=== PATIENT | female | born 1980 | race Caucasian/White ===

== ENCOUNTER 2019-03-28 09:50 | Observation (INO) | payer OTHER, SELFPAY ==
[2019-03-28 11:18] LABS: Fetal Fibronectin Negative
[2019-03-28 11:46] LABS: Add Urine Microscopic? YES; Appearance Urine Clear (Clear); Bacteria Urine Trace /hpf; Bilirubin Urine Negative (Negative); Blood Urine Negative (Negative); Color Urine Amber (Yellow); Glucose Urine UA Negative (Negative); Ketones Urine Negative (Negative); Leukocyte Esterase Ur 1+ LEU/UL (Negative); Mucus Urine Moderate /lpf; Nitrate Urine Negative (Negative); Protein Urine 1+ mg/dL (Negative); RBC Urine 0-2 /hpf (0-2); Specific Grav Ur 1.026 (1.001-1.035); Squamous Epithelial Cell Urine Few /hpf (Few)
[2019-03-28 12:06] VITALS: TEMP 36.4
--- NOTE | 2019-03-28 13:45 | OBADM ---
This patient, Jaycee Rouse, admitted to the OB room [facility] for observation. Patient oriented to hospital policies and general routines including ID bracelet, bed and alarms, visiting hours, pain management, procedures, bathroom and other care routines, personal items, smoking policy, room service/diet, call light and visiting hours. Patient is encouraged to report perceived risks to care and to ask questions if she does not understand what she is told or what she should do.
--- NOTE | 2019-04-24 21:14 | P.PNOB_ITS ---
OB - Triage/Final Diagnosis Visit Information Date of evaluation: 03/28/19 Reason for evaluation: threatened labor Evaluation Laboratory results: Laboratory Tests 03/28/19 03/28/19 10:37 11:29 Urine Color Listeh Urine Appearance Clear Urine pH 6.0 Ur Specific [place] 1.026 Urine Protein 1+ H Urine Glucose (UA) Negative Urine Ketones Negative Ur Blood (Man) Negative Urine Nitrate Negative Urine Bilirubin Negative Urine Urobilinogen 2.0 H Leukocyte Esterase Rfl 1+ H Urine RBC 0-2 Urine WBC 4-6 H Ur Squamous Epith Cells Few Urine Bacteria Trace Urine Mucus Moderate H Fibronectin Negative
== END 2019-03-28 13:21 | disposition home or self-care (01) ==
PROVIDERS: Admitting Provider Obstetrics & Gynecology; Visit Provider Obstetrics & Gynecology
DX: O47.03 False labor before 37 completed weeks of gestation, third trimester (principal); Z3A.30 30 weeks gestation of pregnancy
CPT/HCPCS: 81001; 82731; G0378; G0379

== ENCOUNTER 2019-11-24 18:40 | Emergency (ER) | payer OTHER, SELFPAY ==
[2019-11-24 19:07] VITALS: BP 155/91; PULSE 78; RESP 16; TEMP 36.6; O2SAT 99
--- NOTE | 2019-11-24 19:18 | ED.DENTAL ---
HPI - Dental/Oral General Chief complaint: Dental/Oral Stated complaint: mouth pain Source: patient Mode of arrival: ambulatory Limitations: no limitations History of Present Illness HPI Narrative: this is a 39-year-old female with history of dental decay is currently on methadone, and has chronic dental pain and tooth decay, currently over the past couple of weeks has increased a dental pain with surrounding gum inflammation and right lower submandibular gland swelling. Currently there is no shortness of breath no fever chills no nausea vomiting or abdominal pain. The patient did take [id number] medications with minimal relief. MD Complaint: tooth pain Teeth map: 1. Dental decay with surrounding gum inflammation Onset (ago): week(s) Duration: constant Severity: moderate Severity scale (1-10): 6 Relieving factors: nothing Exacerbating factors: chewing, cold and drinking fluids Context: history of dental caries and poor dental care Associated symptoms: gum swelling Treatment prior to arrival: oral analgesic Related Data Home Medications Medication Instructions Recorded Confirmed Methadose 250 mg PO DAILY 03/28/19 11/24/19 Allergies Allergy/AdvReac Type Severity Reaction Status Date / Time Penicillins Allergy Severe Difficulty Verified 03/28/19 13:10 Swallowing codeine AdvReac Swelling Verified 03/28/19 13:11 NSAIDS (Non-Steroidal AdvReac Swelling Verified 03/28/19 13:11 Anti-Inflamma of Lip/Tongue/Throat Review of Systems Review of Systems: All systems reviewed & are unremarkable except as noted in HPI and below PMFSH Past Medical History Medical History Tooth decay Exam Const: General: no acute distress Orientation/consciousness: patient oriented x3 HENMT: Head: normal to inspection Other: right upper molar dental decay with surrounding gum inflammation and swollen tender right submandibular gland Eyes: Pupils: Equal, round and reactive pupils present Neck: Neck: normal visual inspection Chest: Chest palpation & inspection: normal inspection of the chest Resp: Effort & Inspection: normal respiratory effort Cardio: Rhythm: regular rhythm GI: Auscultation: normal bowel sounds : General: Yes no CVA tenderness Urinary Catheter: Urinary Catheter: patent and draining Back/Spine/Pelvis: Back: no CVA tenderness Skin: General skin exam: normal color Rashes: no rashes Neuro: General: patient oriented x3 and moves all extremities Extrem: General: normal to inspection Psych: Appearance: grossly normal Mental Status: mental status grossly normal Course Course Emergency Course: patient presents with chronic dental pain, call in a prescription for an antibiotic and currently on methadone and will call in a naproxen for pain relief along with the antibiotic. Vital Signs Vital signs: Vital Signs Temperature 36.6 C 11/24/19 19:07 Pulse Rate 78 11/24/19 19:07 Respiratory Rate 16 11/24/19 19:07 Blood Pressure 155/91 H 11/24/19 19:07 Pulse Oximetry 99 11/24/19 19:07 Temperature 36.6 C 11/24/19 19:07 Pulse Rate 78 11/24/19 19:07 Respiratory Rate 16 11/24/19 19:07 Blood Pressure 155/91 H 11/24/19 19:07 Pulse Oximetry 99 11/24/19 19:07 Critical Care Time Critical Care Time Critical Care Time: No Discharge Plan Discharge Clinical Impression: Tooth decay, Dental abscess Patient Disposition: Home, Self-Care Condition: Stable Instructions: Antibiotic Form, Dental Abscess (ED), Toothache (ED) Additional Instructions: Follow-up with dentist for further evaluation and treatment. Tylenol [id number] extra-strength as needed for pain along with antibiotics. Prescriptions: New sulfamethoxazole-trimethoprim [Bactrim DS] 800-160 mg tablet 1 tablet PO Q12H Qty: 20 RF: 0 No Action Methadose 250 mg 250 mg PO DAILY RF: 0 Follow-up/Referrals:
== END 2019-11-24 19:32 | disposition home or self-care (01) ==
PROVIDERS: Emergency Provider Emergency Medicine
DX: K02.9 Dental caries, unspecified (principal); K04.7 Periapical abscess without sinus
CPT/HCPCS: 99283

== ENCOUNTER 2019-11-26 22:50 | Observation (INO) | payer OTHER, SELFPAY ==
--- NOTE | ~2019-11-26 | XR_ITS ---
EXAMINATION: XR chest 2V EXAM DATE: 11/26/2019 23:59 INDICATION: Chest pain. TECHNIQUE: Frontal and lateral projections of the chest obtained and reviewed. There is no prior malinda dy for comparison. FINDINGS: The lungs are clear. There are no pleural effusions. The cardiomediastinal silhouette is within normal limits. There is no pneumothorax suspected. The bones and soft tissues are unremarkab le. IMPRESSION: No acute cardiopulmonary findings. Reviewed, dictated and finalized at location A.
[2019-11-26 22:50] VITALS: BP 129/83; PULSE 84; RESP 20; TEMP 36.8; O2SAT 98
--- NOTE | 2019-11-26 22:59 | ECG_ITS ---
Measurements Intervals [place] Rate: 83 P: 56 IN: 108 QRS: 52 QRSD: 93 T: 53 QT: 372 QTc: 439 Interpretive Statements SINUS RHYTHM WITH SHORT IN INTERVAL POSSIBLE LEFT ATRIAL ENLARGEMENT BASELINE WANDER- II, III, AVR, AVL, AVF BORDERLINE ECG Electronically Signed On 11-28-2019 7:02:31 CDT by Sonny Velasco D.O.
[2019-11-26 23:23] LABS: Hematocrit 39.8 % (35.0-49.0); Hemoglobin 12.9 g/dL (12.0-15.0); Mean Corpuscular HGB Conc 32.4 g/dL (32.0-36.0); Mean Corpuscular Hemoglobin 28.8 pg (27.0-31.0); Mean Corpuscular Volume 88.8 fL (78.0-102.0); Platelet Count Result 397 K/mm3 (150-420); Red Blood Count 4.48 M/mm3 (4.20-5.40); Red Cell Distribution Width 14.1 % (11.6-14.4); White Blood Count 8.2 K/mm3 (4.8-10.8)
--- NOTE | 2019-11-26 23:31 | PC.NURSE ---
pt attempted to urinate , was able to ambulate to bathroom. unable to void at this time. assisted back to room.
[2019-11-26] MEDS: SODIUM CHLORIDE 0.9% IV 1,000 ML 999 ML IV CONT (23:33)
[2019-11-26 23:39] LABS: Alanine Aminotransferase 227 U/L (14-59); Albumin Level 3.6 g/dL (3.4-5.0); Alkaline Phosphatase 341 U/L (46-116); Anion Gap 9 mmol/L (8-16); Aspartate Amino Transferase 132 U/L (15-37); Bilirubin,Total 0.4 mg/dL (0.00-1.00); Blood Urea Nitrogen 16 mg/dL (7-18); Calcium 8.9 mg/dL (8.5-10.1); Carbon Dioxide 25 mmol/L (21-32); Chloride 101 mmol/L (98-108); Estimated Glomerular Filt Rate > 60; Glucose 100 mg/dL (70-99); Osmolality Calculated 281 mOsm/kg (285-295); Potassium 4.1 mmol/L (3.5-5.1); Sodium 135 mmol/L (136-145); Total Protein 8.2 g/dL (6.4-8.2)
--- NOTE | 2019-11-26 23:50 | PC.NURSE ---
pt to xray per wheelchair with xray staff
[2019-11-26 23:54] LABS: Add Urine Microscopic? YES; Appearance Urine Sl Cloudy (Clear); Bilirubin Urine Negative (Negative); Blood Urine 2+ (Negative); Color Urine Yellow (Yellow); Glucose Urine UA Negative (Negative); Ketones Urine Negative (Negative); Leukocyte Esterase Ur Negative (Negative); Nitrate Urine Negative (Negative); Protein Urine Negative (Negative); Specific Grav Ur >= 1.030 (1.010-1.020); Urobilinogen Urine 0.2 mg/dL (0.2-1.0)
[2019-11-26 23:59] LABS: Squamous Epithelial Cell Urine Many /hpf (Few); WBC Urine None seen /hpf (0-3)
[2019-11-27] LABS: Amphetamine Screen Urine Positive (Negative); Bacteria Urine Trace /hpf; Barbiturate Screen Urine Negative (Negative); Benzodiazepines Screen Urine Negative (Negative); Cannabinoid Screen Urine Negative (Negative); Cocaine Screen Urine Negative (Negative); Methadone Screen Urine Positive (Negative); Mucus Urine Few /lpf; Opiate Screen Urine Negative (Negative); Phencyclidine Screen Urine Negative (Negative)
[2019-11-27 00:04] VITALS: BP 137/81; PULSE 78; RESP 20; TEMP 36.9; O2SAT 98
--- NOTE | 2019-11-27 00:04 | ED.NAVMDI ---
HPI - Nausea/Vomiting/Diarrhea General Chief complaint: Weakness Stated complaint: AMB Source: patient Mode of arrival: ambulatory Limitations: no limitations History of Present Illness HPI Narrative: This is a 39-year-old female with some history of drug abuse currently on methadone, was seen in the emergency department 2 days ago for a dental abscess and started on antibiotics. The patient has been feeling weakness with some nausea some chest discomfort for the past 2 days with no shortness of breath no fever chills no diarrhea or constipation. Patient was brought in via EMS because of weakness with nausea. MD elicited complaint: nausea Pertinent past history: anorexia Onset (ago): day(s) Description of vomiting: watery Associated nausea: Yes Associated abdominal pain: No Location of pain: chest Pain consistency: now resolved Related Data Home Medications Medication Instructions Recorded Confirmed Methadose 250 mg PO DAILY 03/28/19 11/24/19 Allergies Allergy/AdvReac Type Severity Reaction Status Date / Time Penicillins Allergy Severe Difficulty Verified 03/28/19 13:10 Swallowing codeine AdvReac Swelling Verified 03/28/19 13:11 NSAIDS (Non-Steroidal AdvReac Swelling Verified 03/28/19 13:11 Anti-Inflamma of Lip/Tongue/Throat Review of Systems Review of Systems: All systems reviewed & are unremarkable except as noted in HPI and below PMFSH Past Medical History Medical History (Updated 11/27/19 @ 00:09 by Francisco Javier Jiang MD) Drug abuse Tooth decay Exam Const: General: no acute distress Orientation/consciousness: patient oriented x3 HENMT: Head: normal to inspection Eyes: Cornea: corneas normal Pupils: Equal, round and reactive pupils present Neck: Neck: normal visual inspection, no lymphadenopathy and no meningeal signs Chest: Chest palpation & inspection: normal inspection of the chest Resp: Effort & Inspection: normal respiratory effort Cardio: Rate: regular rate Rhythm: regular rhythm : General: Yes no CVA tenderness Back/Spine/Pelvis: Back: no CVA tenderness Skin: General skin exam: normal color Rashes: no rashes Neuro: General: patient oriented x3 and moves all extremities Extrem: General: normal to inspection and no pedal edema Psych: Appearance: disheveled Course Course Emergency Course: patient continues to feel weak, explain that her urine was normal and chest x-ray was normal, but she dehydrated with elevated liver function test. Vital Signs Vital signs: Vital Signs Temperature 36.8 C 11/26/19 22:50 Pulse Rate 84 11/26/19 22:50 Respiratory Rate 20 11/26/19 22:50 Blood Pressure 129/83 11/26/19 22:50 Pulse Oximetry 98 11/26/19 22:50 Temperature 36.8 C 11/26/19 22:50 Pulse Rate 84 11/26/19 22:50 Respiratory Rate 20 11/26/19 22:50 Blood Pressure 129/83 11/26/19 22:50 Pulse Oximetry 98 11/26/19 22:50 MDM - Nausea/Vomiting/Diarrhea Lab Data Result diagrams: 11/26/19 23:17 11/26/19 23:17 Labs: Lab Results 11/26/19 11/26/19 11/26/19 Range/Units 23:14 23:14 23:17 WBC 8.2 (4.8-10.8) K/mm3 RBC 4.48 (4.20-5.40) M/mm3 Hgb 12.9 (12.0-15.0) g/dL Hct 39.8 (35.0-49.0) % MCV 88.8 (78.0-102.0) fL MCH 28.8 (27.0-31.0) pg MCHC 32.4 (32.0-36.0) g/dL RDW 14.1 (11.6-14.4) % Plt Count 397 (150-420) K/mm3 MPV 9.0 L (9.2-11.8) fl Sodium (136-145) mmol/L Potassium (3.5-5.1) mmol/L Chloride (98-108) mmol/L Carbon Dioxide (21-32) mmol/L Anion Gap (8-16) mmol/L BUN (7-18) mg/dL Creatinine (0.55-1.02) mg/dL Estim Creat Clear Calc Estimated GFR (59 - ) Glucose (70-99) mg/dL Calculated Osmolality (285-295) mOsm/kg Calcium (8.5-10.1) mg/dL Magnesium (1.8-2.4) mg/dL Total Bilirubin (0.00-1.00) mg/dL AST (15-37) U/L ALT (14-59) U/L Alkaline Phosphatase (46-116)
[2019-11-27 00:11] VITALS: BMI 29.0
--- NOTE | 2019-11-27 00:46 | PC.NURSE ---
pt taken to floor per wheelchair with YSABEL Bedoya. pt alert and oriented. able to ambulate to wheelchair. pt departed er with all personal belongings.
[2019-11-27] MEDS: SODIUM CHLORIDE 0.9% IV 1,000 ML 100 ML IV CONT (00:58)
--- NOTE | 2019-11-27 01:03 | PC.NURSE ---
0040 admit to 202 from er per wheelchair. awake alert. c/o dizziness dehydration and n/v. a/o x3 speech clear appropriate. follows directions, moves extremeties x4. IV patent right hand. no c/o offered.
[2019-11-27 03:42] VITALS: BP 140/49; PULSE 84; RESP 16; TEMP 36.6; O2SAT 98
--- NOTE | 2019-11-27 06:07 | PC.NURSE ---
0605 0600vs omitted, vs changed from q4hr to q6hr and were done at 0400.
[2019-11-27 07:09] LABS: Basophils Absolute Auto 0.02 K/mm3 (0.00-0.10); Basophils Percent Auto 0.2 % (0.0-1.0); Eosinophils Absolute Auto 0.06 K/mm3 (0.02-0.50); Eosinophils Percent Auto 0.7 % (1.0-6.0); Hematocrit 37.1 % (35.0-49.0); Hemoglobin 11.8 g/dL (12.0-15.0); Immature Granulocyte Absolute 0.02 K/mm3 (0.00-0.00); Immature Granulocyte Percent A 0.2 % (0.0-0.0); Lymphocytes Absolute Auto 2.07 K/mm3 (1.10-4.50); Lymphocytes Percent Auto 25.4 % (18.0-42.0); Mean Corpuscular HGB Conc 31.8 g/dL (32.0-36.0); Mean Corpuscular Hemoglobin 28.5 pg (27.0-31.0); Mean Corpuscular Volume 89.6 fL (78.0-102.0); Mean Platelet Volume 9.3 fl (9.2-11.8); Monocytes Absolute Auto 0.56 K/mm3 (0.10-0.90); Monocytes Percent Auto 6.9 % (2.0-11.0); Neutrophils Absolute Auto 5.4 K/mm3 (1.7-7.2); Neutrophils Percent Auto 66.6 % (50.0-70.0); Platelet Count Result 357 K/mm3 (150-420); Red Blood Count 4.14 M/mm3 (4.20-5.40); Red Cell Distribution Width 14.1 % (11.6-14.4); White Blood Count 8.2 K/mm3 (4.8-10.8)
[2019-11-27 07:24] LABS: Alanine Aminotransferase 181 U/L (14-59); Albumin Level 3.1 g/dL (3.4-5.0); Alkaline Phosphatase 299 U/L (46-116); Anion Gap 7 mmol/L (8-16); Aspartate Amino Transferase 87 U/L (15-37); Bilirubin,Total 0.3 mg/dL (0.00-1.00); Blood Urea Nitrogen 14 mg/dL (7-18); Calcium 8.1 mg/dL (8.5-10.1); Carbon Dioxide 25 mmol/L (21-32); Chloride 103 mmol/L (98-108); Estimated CRCL calculation 73 ml/min; Estimated Glomerular Filt Rate > 60; Glucose 89 mg/dL (70-99); Osmolality Calculated 279 mOsm/kg (285-295); Sodium 135 mmol/L (136-145); Total Protein 7.1 g/dL (6.4-8.2)
[2019-11-27 08:00] VITALS: BP 109/72; PULSE 64; RESP 18; TEMP 36.6; O2SAT 100
--- NOTE | 2019-11-27 08:40 | PM.SD ---
Same Day Admit/Disch: HPI History of Present Illness Chief complaint: AMB Narrative: Jaycee Rouse is a 39 year old female who came to the hospital due to weakness nausea and vomiting. Patient was seen a couple days ago in the ER was given Bactrim for tooth. Patient states she then went home she would take 4 pills of ibuprofen approximately every 2 hours throughout the day which likely led to her nausea and vomiting. Patient states that her mother had also given her Wellbutrin to attempt to help with the tooth pain. Patient states that she is on public aid and is unable to get an appointment with a dentist any sooner than 3+ months out. Patient denies any chest pain at this time. [facility] Past Medical History Medical History Drug abuse Tooth decay Social History Social History Years smoked: 20 Smoking status: Current every day smoker Tobacco type: cigarettes Second hand tobacco smoke exposure: Yes Alcohol intake: former Substance use: former Substance use type: painkillers Gender identity (if verbalized by the patient): Female Spiritual care concerns: No Same Day Admit/Disch: Med Pre-admit Medications Home Medications Medication Instructions Recorded Confirmed Type Methadose 250 mg PO DAILY 03/28/19 11/26/19 History sulfamethoxazole-trimethoprim 1 tablet PO Q12H #20 tablet 11/24/19 11/26/19 Rx [Bactrim DS] lidocaine HCl [Lidocaine Viscous] 15 ml MUCOUS MEM Q2H PRN #30 ml 11/27/19 Rx Exam Narrative: Exam Narrative: as noted above patient to convert no pill from her mother for relief of dental pain. patient did not know what the pill was turns out to be Wellbutrin. discussed with patient the reasons why not to accept unknown pills from individuals who cannot prescribe. Const: General: cooperative, comfortable and no acute distress Orientation/consciousness: oriented to person, oriented to place and oriented to time Eyes: Other: Had a little sensitivity to light this morning, took her a few minutes to adjust the lytes being turned on Resp: Effort & Inspection: normal respiratory effort Auscultation: clear to auscultation bilaterally Cardio: Rate: regular rate Rhythm: regular rhythm Heart sounds: S1 normal heart sound present and S2 normal heart sound present Psych: Speech and movement: Normal speech and movement present Affect: normal affect Attitude: cooperative DS: Data Data Completed and Pending Labs on day of discharge: Labs from last 24 hours 11/27/19 11/27/19 11/26/19 07:12 07:12 23:17 WBC 8.2 RBC 4.14 L Hgb 11.8 L Hct 37.1 MCV 89.6 MCH 28.5 MCHC 31.8 L RDW 14.1 Plt Count 357 MPV 9.3 Immature Gran % (Auto) 0.2 H Neut % (Auto) 66.6 Lymph % (Auto) 25.4 [place] % (Auto) 6.9 Eos % (Auto) 0.7 L Baso % (Auto) 0.2 Lymph # (Auto) 2.07 [place] # (Auto) 0.56 Eos # (Auto) 0.06 Baso # (Auto) 0.02 Abs Immat Gran (auto) 0.02 H Absolute Neuts (auto) 5.4 Absolute Nucleated RBC 0.00 Nucleated RBC % 0.0 Sodium 135 L 135 L Potassium 4.0 4.1 Chloride 103 101 Carbon Dioxide 25 25 Anion Gap 7 L 9 BUN 14 16 Creatinine 0.86 0.96 Estim Creat Clear Calc 73 Not Reportable Estimated GFR > 60 > 60 Glucose 89 100 H Calculated Osmolality 279 L 281 L Calcium 8.1 L 8.9 Magnesium 2.0 Total Bilirubin 0.3 0.4 AST 87 H 132 H ALT 181 H 227 H Alkaline Phosphatase 299 H 341 H Total Protein 7.1 8.2 Albumin 3.1 L 3.6 Urine Color Urine Appearance Urine pH Ur Specific [place] Urine Protein Urine Glucose (UA) Urine Ketones Ur Blood (Man) Urine Nitrate Urine Bilirubin Urine Urobilinogen Ur Leukocyte Esterase Urine RBC Urine WBC Ur Squamous Epith Cells Urine Bacteria Urine Mucus Urine Opiates Screen Urin
[2019-11-27] MEDS: LIDOCAINE HCL 2% VISC SOLN 15 ML UDC PO (11:32)
== END 2019-11-27 13:00 | disposition home or self-care (01) ==
LOC: CHSED 11-27 00:09 → CHS2ND 11-27 00:11
PROVIDERS: Nurse Practitioner Family; Admitting Provider Emergency Medicine; Emergency Provider Emergency Medicine; Visit Provider Emergency Medicine
DX: E86.0 Dehydration (principal); R94.5 Abnormal results of liver function studies; K02.9 Dental caries, unspecified; F17.210 Nicotine dependence, cigarettes, uncomplicated; F19.10 Other psychoactive substance abuse, uncomplicated
CPT/HCPCS: 36415; 71046; 80053; 80307; 81001; 83735; 85025; 85027; 87040; 93005; 96360; 96361; 99284; 99285; A9270; G0378; G0379; J7030

== ENCOUNTER 2020-09-07 23:13 | Emergency (ER) | payer OTHER, SELFPAY ==
[2020-09-07 23:21] VITALS: BP 132/70; PULSE 90; RESP 16; TEMP 36.1; O2SAT 95
[2020-09-07] MEDS: KETOROLAC (*BKC) 60 MG/2 ML VIAL IM (23:30)
[2020-09-07] MEDS: CLINDAMYCIN HCL 150 MG CAP 450 MG BY MOUTH (23:30)
--- NOTE | 2020-09-07 23:34 | ED.DENTAL ---
HPI - Dental/Oral General Chief complaint: Dental/Oral Stated complaint: PAIN Time Seen by Provider: 09/07/20 23:25 Source: patient Mode of arrival: ambulatory Limitations: no limitations History of Present Illness HPI Narrative: Patient come in with dental pain, moderately severe, ongoing for the past several days from teeth broke off and abscessed in right upper jaw. She has had pain from these before, and it has been ongoing now for over the past few days, becoming more severe with time, causing her face to swell. She has had no fever, or chills. Ibuprofen at home has not helped the pain. Other measures at home wuch as rinses have not helped the pain. Teeth # 3 and 4 appear to be abscessed. Complaint: tooth pain Onset (ago): day(s) Duration: constant Severity: moderate Relieving factors: nothing Exacerbating factors: cold, heat and drinking fluids Context: history of dental caries Associated symptoms: gum swelling and other (face swelling on that side) Treatment prior to arrival: oral analgesic Related Data Allergies Allergy/AdvReac Type Severity Reaction Status Date / Time Penicillins Allergy Severe Difficulty Verified 03/28/19 13:10 Swallowing codeine AdvReac Swelling Verified 03/28/19 13:11 NSAIDS (Non-Steroidal AdvReac Swelling Verified 03/28/19 13:11 Anti-Inflamma of Lip/Tongue/Throat Review of Systems Constitutional: Constitutional: Reports no additional constitutional complaints Eyes: Eyes: Reports no additional eye complaints ENT: Reports system reviewed and no additional complaints, except as documented Cardiovascular: Cardiovascular: Reports no additional cardiovascular complaints Respiratory: Respiratory: Reports no additional respiratory complaints Gastrointestinal: Gastrointestinal: Reports no additional gastrointestinal complaints Genitourinary: Genitourinary: Reports no additional female genitourinary complaints Musculoskeletal: Musculoskeletal: Reports no additional musculoskeletal complaints Integumentary/Breasts: Skin/Breast: Reports system reviewed and no additional complaints, except as docu Neurologic: Reports system reviewed and no additional complaints, except as documented Psychiatric: Psychiatric: Reports no additional psychiatric complaints Endocrine: Endocrine: Reports no additional endocrine complaints Hematologic/Lymphatic: Hematologic/Lymphatic: Reports no additional hematologic/lymphatic complaints Allergic/Immunologic: Allergic/Immunologic: Reports no additional allergic/immunologic complaints PMFSH Past Medical History Medical History Drug abuse Tooth decay Surgical History Surgical History (Updated 09/07/20 @ 23:44 by John Horton MD) No significant past surgical history Family History Family History Father No problems noted. Father Lung cancer Mother Heart disease Social History Social History Years smoked: 20 Smoking status: Current every day smoker Tobacco type: cigarettes Second hand tobacco smoke exposure: Yes Alcohol intake: former Substance use: former Substance use type: painkillers Gender identity (if verbalized by the patient): Female Spiritual care concerns: No Exam Const: General: no acute distress and alert Orientation/consciousness: patient oriented x3 HENMT: Ears: external ears normal and TM's normal bilaterally General nose exam: Normal external nose present Mouth: Yes Normal oral and palatal mucosa present Throat: posterior oropharynx normal Other: Face swollen on right side, at area of cheek corresponding to upper teeth on right jaw. Teeth number 3 and 4 are broken off at the gum line and appear to be abscessed. She has facial swelling that is around this area and is moderately severe. Eyes: Conjunctivae: conjunctivae norm
[2020-09-07 23:39] VITALS: BP 140/70; PULSE 82; RESP 16; TEMP 36.6; O2SAT 98
== END 2020-09-07 23:42 | disposition home or self-care (01) ==
PROVIDERS: Emergency Provider Emergency Medicine
DX: K04.7 Periapical abscess without sinus (principal); K08.89 Other specified disorders of teeth and supporting structures
CPT/HCPCS: 73140; 96372; 99283; A9270; J1885

== ENCOUNTER 2020-10-09 13:25 | Emergency (ER) | payer OTHER, SELFPAY ==
[2020-10-09 13:55] VITALS: BP 104/70; PULSE 84; RESP 20; TEMP 36.6; O2SAT 96
[2020-10-09 13:58] LABS: Appearance Urine Sl Cloudy (Clear); Bilirubin Urine Negative (Negative); Glucose Urine UA 1+ (Negative); Ketones Urine Trace (Negative); Leukocyte Esterase Ur 2+ (Negative); Nitrate Urine Positive (Negative); Protein Urine 3+ (Negative); Specific Grav Ur <= 1.005 (1.010-1.020); Urobilinogen Urine >=8.0 mg/dL (0.2-1.0)
[2020-10-09 14:03] LABS: Add Urine Microscopic? YES; Blood Urine Trace-Intact (Negative); Color Urine Dark Orange (Yellow); Squamous Epithelial Cell Urine Many /hpf (Few); WBC Urine >75 /hpf (0-3)
[2020-10-09 14:04] LABS: Bacteria Urine 4+ /hpf
[2020-10-09] MEDS: ACETAMINOPHEN 325 MG TABLET 650 MG PO (14:09)
[2020-10-09] MEDS: cefTRIAXone 1 GM VIAL IM (14:35)
[2020-10-09] MEDS: LIDOCAINE HCL 1% LOCAL INJ 20 ML VIAL (14:35)
--- NOTE | 2020-10-09 15:18 | ED.ABDPAIN ---
HPI - Abdominal Pain General Chief Complaint: Urogenital-Female Stated Complaint: Possible UTI Time Seen by Provider: 10/09/20 13:27 Source: patient and RN notes reviewed Mode of arrival: ambulatory Limitations: no limitations History of Present Illness MD elicited complaint: abdominal pain (mild suprapubic abdominal pain) Pertinent past history: past UTI Onset (ago): day(s) (2) Pain Consistency: constant and colicky Location: suprapubic Severity: mild Radiation: none Exacerbating factors: nothing Relieving factors: nothing Associated symptoms: denies other symptoms Related Data Home Medications Medication Instructions Recorded Confirmed methadone 40 mg PO DAILY 10/09/20 10/09/20 Allergies Allergy/AdvReac Type Severity Reaction Status Date / Time Penicillins Allergy Severe Difficulty Verified 03/28/19 13:10 Swallowing codeine AdvReac Swelling Verified 03/28/19 13:11 NSAIDS (Non-Steroidal AdvReac Swelling Verified 03/28/19 13:11 Anti-Inflamma of Lip/Tongue/Throat Review of Systems Review of Systems: All systems reviewed & are unremarkable except as noted in HPI and below Constitutional: Constitutional: Reports as per HPI and Reports no additional constitutional complaints Eyes: Eyes: Reports as per HPI and Reports no additional eye complaints ENT: Reports system reviewed and no additional complaints, except as documented and Reports as per HPI Cardiovascular: Cardiovascular: Reports as per HPI and Reports no additional cardiovascular complaints Respiratory: Respiratory: Reports as per HPI and Reports no additional respiratory complaints Gastrointestinal: Gastrointestinal: Reports as per HPI and Reports no additional gastrointestinal complaints Genitourinary: Genitourinary: Reports no additional female genitourinary complaints and Reports as per HPI Musculoskeletal: Musculoskeletal: Reports no additional musculoskeletal complaints and Reports as per HPI Integumentary/Breasts: Skin/Breast: Reports system reviewed and no additional complaints, except as docu and Reports as per HPI Neurologic: Reports system reviewed and no additional complaints, except as documented and Reports as per HPI Psychiatric: Psychiatric: Reports no additional psychiatric complaints and Reports as per HPI Endocrine: Endocrine: Reports no additional endocrine complaints and Reports as per HPI Hematologic/Lymphatic: Hematologic/Lymphatic: Reports no additional hematologic/lymphatic complaints and Reports as per HPI Allergic/Immunologic: Allergic/Immunologic: Reports no additional allergic/immunologic complaints and Reports as per HPI PMFSH Past Medical History Medical History Drug abuse Tooth decay Surgical History Surgical History No significant past surgical history Family History Family History Father No problems noted. Father Lung cancer Mother Heart disease Social History Social History Years smoked: 20 Smoking status: Current every day smoker Tobacco type: cigarettes Second hand tobacco smoke exposure: Yes Alcohol intake: former Substance use: former Substance use type: painkillers Gender identity (if verbalized by the patient): Female Spiritual care concerns: No Exam Const: General: no acute distress and alert Nutritional Appearance: well nourished Orientation/consciousness: patient oriented x3 Limitations: no limitations HENMT: Head: normal to inspection Ears: external ears normal and TM's normal bilaterally General nose exam: Normal external nose present and Normal nares present Mouth: Yes lip normal and Yes moist mucous membranes Eyes: Conjunctivae: conjunctivae normal Pupils: Equal, round and reactive pupils present EOM: EOMs intact tori
== END 2020-10-09 15:36 | disposition home or self-care (01) ==
PROVIDERS: Emergency Provider Emergency Medicine
DX: N30.00 Acute cystitis without hematuria (principal)
CPT/HCPCS: 81001; 96372; 99283; A9270; J0696

== ENCOUNTER 2021-01-08 12:08 | Emergency (ER) | payer OTHER, SELFPAY ==
--- NOTE | ~2021-01-08 | XR_ITS ---
EXAMINATION: XR chest 1V portable DATE: 01/08/2021 12:57 INDICATION: Chest pain. TECHNIQUE: A single frontal view of the chest was obtained. COMPARISON: Chest 2 views 11/26/2019 FINDINGS: The chest demonstrates clear lungs without pneumonia, pleural effusion, or pneumothorax. Th e heart size is normal. IMPRESSION: 1. No acute cardiopulmonary disease. Reviewed, dictated and finalized at location A. FICATION SPECIALIST
[2021-01-08 12:21] VITALS: BP 138/98; PULSE 84; RESP 18; TEMP 36.9; O2SAT 98
--- NOTE | 2021-01-08 12:26 | ED.DENTAL ---
HPI - Dental/Oral General Chief complaint: Dental/Oral Stated complaint: swollen face, chest pain, right arm pain Time Seen by Provider: 01/08/21 12:26 Source: patient Mode of arrival: ambulatory Limitations: no limitations History of Present Illness HPI Narrative: 40-year-old female, smoker with a positive family history of coronary artery disease presents with -- right upper jaw pain /dental pain with just swelling for the past 2 days -- left upper chest pain which radiates to the right shoulder and arm. It started last night. No shortness of breath or lightheadedness. MD Complaint: tooth pain ( Tenderness to 1, 2, 3) Location: Tooth # Duration: constant Relieving factors: nothing Exacerbating factors: nothing Context: history of dental caries Treatment prior to arrival: none Related Data Home Medications Medication Instructions Recorded Confirmed methadone 40 mg PO DAILY 10/09/20 10/09/20 Allergies Allergy/AdvReac Type Severity Reaction Status Date / Time Penicillins Allergy Severe Difficulty Verified 03/28/19 13:10 Swallowing codeine AdvReac Swelling Verified 03/28/19 13:11 NSAIDS (Non-Steroidal AdvReac Swelling Verified 03/28/19 13:11 Anti-Inflamma of Lip/Tongue/Throat Review of Systems Review of Systems: All systems reviewed & are unremarkable except as noted in HPI and below Constitutional: Constitutional: Reports as per HPI Eyes: Eyes: Reports no additional eye complaints ENT: Reports system reviewed and no additional complaints, except as documented Comments: right upper dental pain Cardiovascular: Cardiovascular: Reports chest pain and Reports chest pain at rest Respiratory: Respiratory: Reports no additional respiratory complaints Gastrointestinal: Gastrointestinal: Reports no additional gastrointestinal complaints Genitourinary: Genitourinary: Reports no additional female genitourinary complaints Musculoskeletal: Musculoskeletal: Reports no additional musculoskeletal complaints Integumentary/Breasts: Skin/Breast: Reports system reviewed and no additional complaints, except as docu Neurologic: Reports system reviewed and no additional complaints, except as documented Psychiatric: Psychiatric: Reports no additional psychiatric complaints Endocrine: Endocrine: Reports no additional endocrine complaints Hematologic/Lymphatic: Hematologic/Lymphatic: Reports no additional hematologic/lymphatic complaints Allergic/Immunologic: Allergic/Immunologic: Reports no additional allergic/immunologic complaints PMFSH Past Medical History Medical History Drug abuse Tooth decay Surgical History Surgical History No significant past surgical history Family History Family History Father No problems noted. Father Lung cancer Mother Heart disease Social History Social History Years smoked: 20 Smoking status: Current every day smoker Tobacco type: cigarettes Second hand tobacco smoke exposure: Yes Alcohol intake: former Substance use: former Substance use type: painkillers Gender identity (if verbalized by the patient): Female Spiritual care concerns: No Exam Const: General: cooperative, healthy appearing, comfortable and no acute distress HENMT: Head: normal to inspection, No palpable skull fracture present and atraumatic Ears: hearing grossly normal bilaterally General nose exam: Normal external nose present and Normal nares present Face and sinus: normal facial exam Mouth: Yes Normal oral and palatal mucosa present, Yes lip normal and Yes tongue normal Throat: posterior oropharynx normal Eyes: General: appearance normal, both eyes and all related structures Visual Gutiérrez: normal visual gutiérrez by confrontation EOM: EO
--- NOTE | 2021-01-08 12:31 | ECG_ITS ---
Measurements Intervals [facility] Rate: 76 P: 67 IN: 132 QRS: 71 QRSD: 89 T: 67 QT: 368 QTc: 414 Interpretive Statements SINUS RHYTHM MINIMAL Q WAVES- INF/LAT LEADS BASELINE ARTIFACT- V3 BORDERLINE ECG Electronically Signed On 01-08-2021 13:07:32 [employer] ROOM ATTENDANT by Sonny Velasco D.O.
[2021-01-08 12:53] LABS: Basophils Absolute Auto 0.03 K/mm3 (0.00-0.10); Basophils Percent Auto 0.4 % (0.0-1.0); Eosinophils Absolute Auto 0.11 K/mm3 (0.02-0.50); Eosinophils Percent Auto 1.5 % (1.0-6.0); Hematocrit 35.3 % (35.0-49.0); Hemoglobin 11.6 g/dL (12.0-15.0); Immature Granulocyte Absolute 0.02 K/mm3 (0.00-0.00); Immature Granulocyte Percent A 0.3 % (0.0-0.0); Lymphocytes Absolute Auto 2.24 K/mm3 (1.10-4.50); Lymphocytes Percent Auto 30.1 % (18.0-42.0); Mean Corpuscular HGB Conc 32.9 g/dL (32.0-36.0); Mean Corpuscular Hemoglobin 28.5 pg (27.0-31.0); Mean Corpuscular Volume 86.7 fL (78.0-102.0); Mean Platelet Volume 9.1 fl (9.2-11.8); Monocytes Absolute Auto 0.55 K/mm3 (0.10-0.90); Monocytes Percent Auto 7.4 % (2.0-11.0); Neutrophils Absolute Auto 4.5 K/mm3 (1.7-7.2); Neutrophils Percent Auto 60.3 % (50.0-70.0); Platelet Count Result 369 K/mm3 (150-420); Red Blood Count 4.07 M/mm3 (4.20-5.40); White Blood Count 7.4 K/mm3 (4.8-10.8)
[2021-01-08 13:05] LABS: D Dimer 0.32 mg/L (0.19-0.50)
[2021-01-08 13:11] LABS: Alanine Aminotransferase 58 U/L (14-59); Albumin Level 3.2 g/dL (3.4-5.0); Alkaline Phosphatase 204 U/L (46-116); Anion Gap 5 mmol/L (8-16); Aspartate Amino Transferase 24 U/L (15-37); Bilirubin,Total 0.2 mg/dL (0.00-1.00); Blood Urea Nitrogen 11 mg/dL (7-18); Calcium 8.6 mg/dL (8.5-10.1); Carbon Dioxide 30 mmol/L (21-32); Chloride 102 mmol/L (98-108); Estimated CRCL calculation 81 ml/min; Estimated Glomerular Filt Rate > 60; Glucose 92 mg/dL (70-99); Osmolality Calculated 283 mOsm/kg (285-295); Sodium 137 mmol/L (136-145); Total Protein 7.5 g/dL (6.4-8.2); Troponin I 6.7 ng/L (0.00-60.4)
[2021-01-08 13:57] VITALS: BP 149/96; PULSE 79; RESP 20; TEMP 36.8; O2SAT 100
== END 2021-01-08 13:59 | disposition home or self-care (01) ==
PROVIDERS: Emergency Provider Internal Medicine Critical Care Medicine
DX: K08.89 Other specified disorders of teeth and supporting structures (principal); K02.9 Dental caries, unspecified; R07.9 Chest pain, unspecified
CPT/HCPCS: 36415; 71045; 80053; 84484; 85025; 85380; 93005; 99283; 99284

== ENCOUNTER 2022-09-12 15:54 | Emergency (ER) | payer OTHER, SELFPAY ==
[2022-09-12 15:55] VITALS: BP 116/77; PULSE 77; RESP 20; TEMP 37.1; O2SAT 98
--- NOTE | 2022-09-12 15:59 | ED.SYNCOPE ---
HPI - Syncope General Chief Complaint: Unspecified Stated Complaint: lethargic Time Seen by Provider: 09/12/22 15:57 Source: patient and RN notes reviewed Mode of arrival: ambulatory Limitations: no limitations History of Present Illness HPI narrative: Patient states that she stopped taking her methadone 10 days ago. She began being ill with nausea difficulty eating lethargy following that. Today she took someone else's medicines own she thinks it might have been temazepam. She is not really sure what it was. She has feeling weak and lethargic she said she had a syncopal episode at home. EMS call was that she was lethargic and could get up. However she walked from the couch to the gurney and got up on the gurney without difficulty. She also walks to the bathroom from her room here in the ED. complaint: collapsed Onset (ago): hour(s) (3) Prodromal symptoms: none Witnessed: No Context: at rest Injuries sustained associated with event: none Current symptoms: weakness Treatments prior to arrival: none Related Data Allergies Allergy/AdvReac Type Severity Reaction Status Date / Time Penicillins Allergy Severe Difficulty Verified 03/28/19 13:10 Swallowing codeine AdvReac Swelling Verified 03/28/19 13:11 NSAIDS (Non-Steroidal AdvReac Swelling Verified 03/28/19 13:11 Anti-Inflamma of Lip/Tongue/Throat Review of Systems Review of Systems: All systems reviewed & are unremarkable except as noted in HPI and below PMFSH Past Medical History Medical History Drug abuse Tooth decay Surgical History Surgical History No significant past surgical history Family History Family History Father No problems noted. Father Lung cancer Mother Heart disease Social History Social History Years smoked: 20 Smoking status: Current every day smoker Tobacco type: cigarettes Second hand tobacco smoke exposure: Yes Alcohol intake: former Substance use: former Substance use type: painkillers Gender identity (if verbalized by the patient): Female Spiritual care concerns: No Exam Const: General: healthy appearing, no acute distress and alert Nutritional Appearance: well nourished Orientation/consciousness: patient oriented x3 Limitations: no limitations Other: Female tech in room during examination. HENMT: Head: normal to inspection Ears: external ears normal Face/Nose/Sinus: Normal external nose present Face and sinus: normal facial exam Mouth: Yes moist mucous membranes Eyes: Conjunctivae: conjunctivae normal Pupils: Equal, round and reactive pupils present EOM: EOMs intact bilaterally Neck: Neck: normal visual inspection Resp: Effort & Inspection: normal respiratory effort Auscultation: clear to auscultation bilaterally Cardio: Rate: regular rate Rhythm: regular rhythm GI: GI Palp: Yes Soft to palpation and No Tenderness to palpation present (GI) Auscultation: normal bowel sounds Back/Spine/Pelvis: Cervical Spine: cervical ROM normal Thoracic/Lumbar Spine: thoraco-lumbar ROM normal Skin: General skin exam: normal color Rashes: no rashes Neuro: General: patient oriented x3, moves all extremities, no focal motor deficits and CN's II-XI intact bilaterally Speech: normal speech Gait exam (Neuro): Normal gait present Extrem: General: normal to inspection and no clubbing, cyanosis or edema Psych: Mental Status: mental status grossly normal Affect: normal affect Attitude: cooperative MDM - Syncope Differential Diagnosis Differential diagnosis: Likely dehydration and other ( cardiac arrhythmia, electrolyte abnormality, anemia, UTI, illicit drug use, methadone withdrawal) Lab Data Attestation: I reviewed the patient's lab results. Discharge Plan Disch
--- NOTE | 2022-09-12 16:02 | ECG_ITS ---
Measurements Intervals [place] Rate: 99 P: 59 NC: 100 QRS: 63 QRSD: 94 T: 53 QT: 348 QTc: 447 Interpretive Statements SINUS RHYTHM WITH SHORT NC INTERVAL MINIMAL Q WAVES- ANTEROLAT/INF LEADS BASELINE ARTIFACT- I, II, III, AVR, AVL, AVF, V1-V6 BORDERLINE ECG COMPARED TO ECG 01/08/2021 12:37:11 NO SIGNIFICANT CHANGES Electronically Signed On 09-12-2022 16:25:21 CDT by Sonny Velasco D.O.
[2022-09-12 16:16] LABS: Basophils Absolute Auto 0.05 K/mm3 (0.00-0.10); Basophils Percent Auto 0.5 % (0.0-1.0); Eosinophils Absolute Auto 0.04 K/mm3 (0.02-0.50); Eosinophils Percent Auto 0.4 % (1.0-6.0); Hemoglobin 12.9 g/dL (12.0-15.0); Immature Granulocyte Absolute 0.02 K/mm3 (0.00-0.00); Immature Granulocyte Percent A 0.2 % (0.0-0.0); Lymphocytes Absolute Auto 2.21 K/mm3 (1.10-4.50); Lymphocytes Percent Auto 20.7 % (18.0-42.0); Mean Corpuscular HGB Conc 33.1 g/dL (32.0-36.0); Mean Corpuscular Hemoglobin 30.5 pg (27.0-31.0); Mean Corpuscular Volume 92.2 fL (78.0-102.0); Mean Platelet Volume 10.3 fl (9.2-11.8); Monocytes Absolute Auto 0.57 K/mm3 (0.10-0.90); Monocytes Percent Auto 5.3 % (2.0-11.0); Neutrophils Absolute Auto 7.8 K/mm3 (1.7-7.2); Neutrophils Percent Auto 72.9 % (50.0-70.0); Platelet Count Result 399 K/mm3 (150-420); Red Blood Count 4.23 M/mm3 (4.20-5.40); Red Cell Distribution Width 12.4 % (11.6-14.4); White Blood Count 10.7 K/mm3 (4.8-10.8)
[2022-09-12 16:17] LABS: Appearance Urine Clear (Clear); Bilirubin Urine 1+ (Negative); Blood Urine 2+ (Negative); Color Urine Yellow (Yellow); Glucose Urine UA Negative (Negative); Ketones Urine Negative (Negative); Leukocyte Esterase Ur Negative LEU/UL (Negative); Nitrate Urine Negative (Negative); Protein Urine 3+ (Negative); Specific Grav Ur >= 1.030 (1.010-1.020)
[2022-09-12 16:19] LABS: Pregnancy On Board Control Positive; Urine Pregnancy Test Negative
[2022-09-12 16:23] LABS: Add Urine Microscopic? YES; Calcium Oxalate Crystals Urine Present /hpf; Squamous Epithelial Cell Urine Moderate /hpf (Few)
[2022-09-12 16:24] LABS: Bacteria Urine 3+ /hpf; Mucus Urine Moderate /lpf
--- NOTE | 2022-09-12 16:24 | PC.NURSE ---
states her dose of methadone was 280mg daily
[2022-09-12 16:25] LABS: Amphetamine Screen Urine Positive (Negative); Barbiturate Screen Urine Negative (Negative); Benzodiazepines Screen Urine Positive (Negative); Cannabinoid Screen Urine Negative (Negative); Cocaine Screen Urine Negative (Negative); Methadone Screen Urine Positive (Negative); Opiate Screen Urine Negative (Negative); Phencyclidine Screen Urine Negative (Negative)
[2022-09-12 16:33] LABS: Alanine Aminotransferase 22 U/L (14-59); Albumin Level 3.7 g/dL (3.4-5.0); Alkaline Phosphatase 97 U/L (46-116); Anion Gap 8 mmol/L (8-16); Aspartate Amino Transferase 10 U/L (15-37); Bilirubin,Total 0.2 mg/dL (0.00-1.00); Blood Urea Nitrogen 11 mg/dL (7-18); Calcium 9.3 mg/dL (8.5-10.1); Carbon Dioxide 29 mmol/L (21-32); Chloride 105 mmol/L (98-108); Estimated CRCL calculation 57 ml/min; Estimated Glomerular Filt Rate 59; Glucose 125 mg/dL (70-99); Magnesium 1.9 mg/dL (1.8-2.4); Osmolality Calculated 294 mOsm/kg (285-295); Potassium 3.7 mmol/L (3.5-5.1); Sodium 142 mmol/L (136-145); Total Protein 7.4 g/dL (6.4-8.2)
[2022-09-12 16:51] VITALS: BP 120/66; PULSE 90; RESP 16; TEMP 36.6; O2SAT 95
[2022-09-12 18:32] LABS: INR 0.9; Partial Thromboplastin Time 22.7 SEC (23.90-30.70)
== END 2022-09-12 16:51 | disposition home or self-care (01) ==
PROVIDERS: Emergency Provider Emergency Medicine
DX: N30.00 Acute cystitis without hematuria (principal); F19.10 Other psychoactive substance abuse, uncomplicated; F17.210 Nicotine dependence, cigarettes, uncomplicated
CPT/HCPCS: 36415; 80053; 80307; 81001; 81025; 83735; 84484; 85025; 85610; 85730; 93005; 99284

== ENCOUNTER 2022-09-25 19:31 | Emergency (ER) | payer OTHER, SELFPAY ==
[2022-09-25 19:35] VITALS: BP 136/97; PULSE 104; RESP 18; TEMP 37.2; O2SAT 100
--- NOTE | 2022-09-25 19:35 | ED.GENADULT ---
HPI - General Adult General Chief complaint: Unspecified Stated complaint: Methadone Withdrawl Time Seen by Provider: 09/25/22 19:34 History of Present Illness HPI narrative: Jaycee is a 42F with a PMH of opiate dependence and tobacco abuse that was on methadone until recently when she walked away from the methadone clinic and has started to go into withdrawal. She has reportedly been taking 280mg of morphine daily and has been on methadone for 8 years but left the clinic because she thinks they have a part in her children being taken away. Last use was 2 days ago. She is having anxiety, insomnia, diarrhea and abdominal cramping with it. She feels she is getting dehydrated with up to 10 episodes of diarrhea daily. There is no CP or dyspnea. Related Data Allergies Allergy/AdvReac Type Severity Reaction Status Date / Time Penicillins Allergy Severe Difficulty Verified 09/25/22 19:43 Swallowing codeine AdvReac Swelling Verified 09/25/22 19:43 NSAIDS (Non-Steroidal AdvReac Swelling Verified 09/25/22 19:43 Anti-Inflamma of Lip/Tongue/Throat Review of Systems Review of Systems: All systems reviewed & are unremarkable except as noted in HPI and below PMFSH Past Medical History Medical History Drug abuse Tooth decay Surgical History Surgical History No significant past surgical history Family History Family History Father No problems noted. Father Lung cancer Mother Heart disease Social History Social History Years smoked: 20 Smoking status: Current every day smoker Tobacco type: cigarettes Second hand tobacco smoke exposure: Yes Alcohol intake: former Substance use: former Substance use type: painkillers Gender identity (if verbalized by the patient): Female Spiritual care concerns: No Exam Const: General: healthy appearing, no acute distress and alert Nutritional Appearance: well nourished Orientation/consciousness: patient oriented x3 HENMT: Head: normal to inspection Ears: external ears normal Face/Nose/Sinus: Normal external nose present Eyes: Conjunctivae: conjunctivae normal Pupils: Equal, round and reactive pupils present Neck: Neck: normal visual inspection Chest: Chest palpation & inspection: normal inspection of the chest Resp: Effort & Inspection: normal respiratory effort Auscultation: clear to auscultation bilaterally Cardio: Rate: regular rate Rhythm: regular rhythm GI: Inspection: non-distended GI Palp: Yes Soft to palpation and No Tenderness to palpation present (GI) Back/Spine/Pelvis: Back: no CVA tenderness Skin: General skin exam: normal color Rashes: no rashes Neuro: General: patient oriented x3 and moves all extremities Cranial nerves: Yes Nystagmus not present Speech: normal speech Extrem: General: normal to inspection Psych: Mental Status: mental status grossly normal Affect: Anxious affect present Other: Moderately agitated. Course Course Emergency Course: She declined labs. Ordered fluids, clonidine, loperamide, zofran and seroquel. Vital Signs Vital signs: Vital Signs Temperature 98.9 F 09/25/22 19:35 Pulse Rate 104 H 09/25/22 19:35 Respiratory Rate 18 09/25/22 19:35 Blood Pressure 136/97 H 09/25/22 19:35 Pulse Oximetry 100 09/25/22 19:35 Oxygen Delivery Room Air 09/25/22 19:35 Temperature 98.9 F 09/25/22 19:35 Pulse Rate 104 H 09/25/22 19:35 Respiratory Rate 18 09/25/22 19:35 Blood Pressure 136/97 H 09/25/22 19:35 Pulse Oximetry 100 09/25/22 19:35 Oxygen Delivery Room Air 09/25/22 19:35 Medical Decision Making Vital Signs Vital Signs: Vital Signs Temperature 98.9 F 09/25/22 19:35 Pulse Rate 104 H 09/25/22 19:35 Respiratory R
[2022-09-25] MEDS: cloNIDine HCL 0.1 MG TABLET PO (20:16)
[2022-09-25] MEDS: LOPERAMIDE HCL 2 MG CAPSULE 4 MG PO (20:16)
[2022-09-25] MEDS: QUEtiapine FUMARATE 25 MG TABLET 50 MG PO (20:16)
[2022-09-25] MEDS: ONDANSETRON INJ 4 MG/2 ML VIAL IV PUSH (20:19)
[2022-09-25] MEDS: SODIUM CHLORIDE 0.9% IV 1,000 ML 999 ML IV CONT (20:19)
[2022-09-25 21:26] VITALS: BP 110/66; PULSE 103; RESP 18; TEMP 36.8; O2SAT 100
== END 2022-09-25 21:35 | disposition home or self-care (01) ==
LOC: CHSED 20:10
PROVIDERS: Emergency Provider Family Medicine
DX: F11.23 Opioid dependence with withdrawal (principal); F17.210 Nicotine dependence, cigarettes, uncomplicated
CPT/HCPCS: 96361; 96374; 99284; A9270; J2405; J7030

== ENCOUNTER 2023-01-02 13:42 | Emergency (ER) | payer OTHER, SELFPAY ==
[2023-01-02 13:47] VITALS: BP 136/89; PULSE 95; RESP 19; TEMP 36.6; O2SAT 100
--- NOTE | 2023-01-02 14:20 | ED.PSYCH ---
HPI - Psych General Chief Complaint: Psychiatric Symptoms Stated Complaint: Evaluation Time Seen by Provider: 01/02/23 13:51 Source: patient Mode of arrival: ambulatory History of Present Illness HPI Narrative: Patient is a 6 year female with a significant past medical history that presents today for psychiatric reasons. Patient was seeing her counselor and was sent here by her counselor because she apparently told the counselor that she had suicidal ideations. She sees his counselor because she has to from the state because she does not have her children. In order to try to get them back she has to see a counselor For certain amount time. Speaking with her today since she has been eating she states she does not have suicidal ideations does not have any homicidal ideations. She spoke of just wanted children back and would do whatever takes to get them back. Apparently her 2 L staying with her sister currently. She would however like to get started on something for her depression. complaint: feels depressed Onset (ago): hour(s) Duration: constant History of same: Yes Relieving factors: none Exacerbating factors: none Associated psychiatric symptoms: depression Associated symptoms: denies other symptoms Treatments prior to arrival: none Related Data Allergies Allergy/AdvReac Type Severity Reaction Status Date / Time Penicillins Allergy Severe Difficulty Verified 09/25/22 19:43 Swallowing codeine AdvReac Swelling Verified 09/25/22 19:43 NSAIDS (Non-Steroidal AdvReac Swelling Verified 09/25/22 19:43 Anti-Inflamma of Lip/Tongue/Throat Review of Systems Review of Systems: All systems reviewed & are unremarkable except as noted in HPI and below Constitutional: Constitutional: Reports no additional constitutional complaints Eyes: Eyes: Reports no additional eye complaints ENT: Reports system reviewed and no additional complaints, except as documented Cardiovascular: Cardiovascular: Reports no additional cardiovascular complaints Respiratory: Respiratory: Reports no additional respiratory complaints Gastrointestinal: Gastrointestinal: Reports no additional gastrointestinal complaints Genitourinary: Genitourinary: Reports no additional female genitourinary complaints Musculoskeletal: Musculoskeletal: Reports no additional musculoskeletal complaints Integumentary/Breasts: Skin/Breast: Reports system reviewed and no additional complaints, except as docu Neurologic: Reports system reviewed and no additional complaints, except as documented Psychiatric: Psychiatric: Reports no additional psychiatric complaints Endocrine: Endocrine: Reports no additional endocrine complaints Hematologic/Lymphatic: Hematologic/Lymphatic: Reports no additional hematologic/lymphatic complaints PMFSH Past Medical History Medical History Drug abuse Tooth decay Surgical History Surgical History No significant past surgical history Family History Family History Father No problems noted. Father Lung cancer Mother Heart disease Social History Social History Years smoked: 20 Smoking status: Current every day smoker Tobacco type: cigarettes Second hand tobacco smoke exposure: Yes Alcohol intake: former Substance use: former Substance use type: painkillers Gender identity (if verbalized by the patient): Female Spiritual care concerns: No Exam Const: General: healthy appearing Nutritional Appearance: well nourished Orientation/consciousness: patient oriented x3 HENMT: Head: normal to inspection Ears: external ears normal Face/Nose/Sinus: Normal external nose present Eyes: Conjunctivae: conjunctivae normal Pupils: Equal, round and reactive pupils present EOM: EOMs in
[2023-01-02 15:32] VITALS: BP 128/88; PULSE 84; RESP 20; TEMP 36.7; O2SAT 100
== END 2023-01-02 15:33 | disposition home or self-care (01) ==
LOC: CHSED 14:34
PROVIDERS: Emergency Provider Family Medicine
DX: F32.9 Major depressive disorder, single episode, unspecified (principal); F17.210 Nicotine dependence, cigarettes, uncomplicated
CPT/HCPCS: 99283

== ENCOUNTER 2023-03-08 22:14 | Emergency (ER) | payer OTHER, SELFPAY ==
--- NOTE | ~2023-03-08 | XR_ITS ---
Portable chest x-ray Comparison: 01/08/2021 Clinical History: Chest pain Findings: Lungs are clear, without focal consolidation or pleural effusion. Cardiomediastinal silho uette is stable. Bones and soft tissues are unremarkable. Impression: Normal chest. Reviewed, dictated and finalized at [facility]. DRIVER Impression: Normal chest.
[2023-03-08 22:15] VITALS: BP 129/89; PULSE 102; RESP 20; TEMP 36.2; O2SAT 100
[2023-03-08 22:57] LABS: Appearance Urine Clear (Clear); Bilirubin Urine Negative (Negative); Blood Urine Trace-Intact (Negative); Color Urine Yellow (Yellow); Glucose Urine UA Negative (Negative); Ketones Urine Negative (Negative); Leukocyte Esterase Ur Negative LEU/UL (Negative); Nitrate Urine Negative (Negative); Protein Urine Negative (Negative); Specific Grav Ur >= 1.030 (1.010-1.020); Urobilinogen Urine 0.2 mg/dL (0.2-1.0)
[2023-03-08 23:03] LABS: Add Urine Microscopic? YES; RBC Urine 0-2 /hpf (0-2)
[2023-03-08 23:04] LABS: Calcium Oxalate Crystals Urine Present /hpf; Mucus Urine Few /lpf
[2023-03-08 23:04] LABS: Pregnancy On Board Control Positive; Urine Pregnancy Test Negative
[2023-03-08 23:29] LABS: SARS-CoV-2 RNA PCR Negative (Negative)
[2023-03-08 23:41] LABS: Influenza A QL RT-PCR Negative (Negative); Influenza B QL RT-PCR Negative (Negative); RSV RNA, RT-PCR Negative (Negative); Strep Group A RT-PCR NOT DETECTED (Negative)
--- NOTE | 2023-03-08 23:41 | ED.URI ---
HPI - URI/Sore Throat General Chief Complaint: Upper Respiratory Infection Stated Complaint: cough, throat tumor Time Seen by Provider: 03/08/23 22:19 Source: patient Mode of arrival: ambulatory Limitations: no limitations History of Present Illness HPI Narrative: Patient is a 43-year-old female with significant past medical history that presents today with URI symptoms. Patient had cough, congestion, rhinorrhea for the last 3 4 days. She states she has also fevers as. 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 She says she does have appointment Thursday to follow up with this. But she is here today for URI symptoms. MD elicited complaint: fever, cough, sore throat, rhinorrhea, nasal congestion and sinus pain Onset (ago): day(s) Consistency: constant Severity: mild Description of mucous: clear Able to tolerate fluids by mouth: Yes Exacerbating factors: nothing Relieving factors: nothing Associated symptoms: denies other symptoms Treatments prior to arrival: none Related Data Allergies Allergy/AdvReac Type Severity Reaction Status Date / Time Penicillins Allergy Severe Difficulty Verified 09/25/22 19:43 Swallowing codeine AdvReac Swelling Verified 09/25/22 19:43 NSAIDS (Non-Steroidal AdvReac Swelling Verified 09/25/22 19:43 Anti-Inflamma of Lip/Tongue/Throat Review of Systems Review of Systems: All systems reviewed & are unremarkable except as noted in HPI and below Constitutional: Constitutional: Reports no additional constitutional complaints Eyes: Eyes: Reports no additional eye complaints ENT: Reports as per HPI, Reports nasal congestion and Reports sore throat Cardiovascular: Cardiovascular: Reports no additional cardiovascular complaints Respiratory: Respiratory: Reports chest congestion and Reports cough Gastrointestinal: Gastrointestinal: Reports as per HPI Genitourinary: Genitourinary: Reports no additional female genitourinary complaints Musculoskeletal: Musculoskeletal: Reports no additional musculoskeletal complaints Integumentary/Breasts: Skin/Breast: Reports system reviewed and no additional complaints, except as docu Neurologic: Reports system reviewed and no additional complaints, except as documented Psychiatric: Psychiatric: Reports no additional psychiatric complaints Endocrine: Endocrine: Reports no additional endocrine complaints Hematologic/Lymphatic: Hematologic/Lymphatic: Reports no additional hematologic/lymphatic complaints Allergic/Immunologic: Allergic/Immunologic: Reports no additional allergic/immunologic complaints PMFSH Past Medical History Medical History Drug abuse Tooth decay Surgical History Surgical History No significant past surgical history Family History Family History Father No problems noted. Father Lung cancer Mother Heart disease Social History Social History Years smoked: 20 Smoking status: Current every day smoker Tobacco type: cigarettes Second hand tobacco smoke exposure: Yes Alcohol intake: former Substance use: former Substance use type: painkillers Gender identity (if verbalized by the patient): Female Spiritual care concerns: No Exam Const: General: healthy appearing Nutritional Appearance: well nourished Orientation/consciousness: patient oriented x3 Limitations: no limitations HENMT: Head: normal to inspection Ears: external ears normal Face/Nose/Sinus: Normal external nose present Face and sinus: normal facial exam Mouth: Yes Normal oral and palatal mucosa present Teeth and gingiva: dentition normal Throat: posterior oropharynx normal Eye
[2023-03-08 23:50] VITALS: BP 140/86; PULSE 65; RESP 18; TEMP 36.8; O2SAT 98
== END 2023-03-08 23:56 | disposition home or self-care (01) ==
PROVIDERS: Emergency Provider Family Medicine
DX: J06.9 Acute upper respiratory infection, unspecified (principal); F17.210 Nicotine dependence, cigarettes, uncomplicated; Z20.822 Contact with and (suspected) exposure to COVID-19
CPT/HCPCS: 71045; 81001; 81025; 87637; 87651; 99283

== ENCOUNTER 2023-04-02 23:36 | Emergency (ER) | payer OTHER, SELFPAY ==
--- NOTE | ~2023-04-02 | XR_ITS ---
EXAMINATION: XR chest 1V portable DATE: 04/02/2023 23:57 INDICATION: Cough. Congestion. Chest pain. TECHNIQUE: A single frontal view of the chest was obtained. COMPARISON: Chest single view 03/08/2023 FINDINGS: There is no pneumonia, pleural effusion, or pneumothorax. The heart size is normal. IMPRESSION: 1. No acute cardiopulmonary disease. Reviewed, dictated and finalized at location E. PRODUCER
[2023-04-02 23:36] VITALS: BP 141/96; PULSE 96; RESP 15; TEMP 35.8; O2SAT 100
[2023-04-02 23:39] VITALS: PULSE 98; RESP 15; O2SAT 100
[2023-04-02 23:45] VITALS: PULSE 96; RESP 21; O2SAT 100
--- NOTE | 2023-04-02 23:51 | ED.URI ---
HPI - URI/Sore Throat General Chief Complaint: Upper Respiratory Infection Stated Complaint: chest pain Time Seen by Provider: 04/02/23 23:46 Source: patient Mode of arrival: ambulatory Limitations: no limitations History of Present Illness HPI Narrative: this is a 43 year female with no significant past medical history with tobacco use with 1 month history of cough mildly productive white sputum with no fever no chills O2 sats 100% on room air with no chest pain no audible wheezing no abdominal pain no nausea vomiting. MD elicited complaint: cough Onset (ago): month(s) Consistency: constant Severity: moderate Related Data Allergies Allergy/AdvReac Type Severity Reaction Status Date / Time Penicillins Allergy Severe Difficulty Verified 04/02/23 23:41 Swallowing codeine AdvReac Swelling Verified 04/02/23 23:41 NSAIDS (Non-Steroidal AdvReac Swelling Verified 04/02/23 23:41 Anti-Inflamma of Lip/Tongue/Throat Review of Systems Review of Systems: All systems reviewed & are unremarkable except as noted in HPI and below PMFSH Past Medical History Medical History Drug abuse Tooth decay Surgical History Surgical History No significant past surgical history Family History Family History Father No problems noted. Father Lung cancer Mother Heart disease Social History Social History Years smoked: 20 Smoking status: Current every day smoker Tobacco type: cigarettes Second hand tobacco smoke exposure: Yes Alcohol intake: former Substance use: former Substance use type: painkillers Gender identity (if verbalized by the patient): Female Spiritual care concerns: No Exam Const: General: healthy appearing and no acute distress Nutritional Appearance: well nourished Limitations: no limitations HENMT: Head: normal to inspection Eyes: Conjunctivae: conjunctivae normal Neck: Neck: normal visual inspection, no lymphadenopathy and no meningeal signs Chest: Chest palpation & inspection: normal inspection of the chest Resp: Effort & Inspection: normal respiratory effort Auscultation: clear to auscultation bilaterally Cardio: Rate: regular rate Rhythm: regular rhythm GI: GI Palp: Yes Soft to palpation Course Course Emergency Course: Chest x-ray performed and reviewed as well as a COVID influenza and RSV Vital Signs Vital signs: Vital Signs Temperature 35.8 C L 04/02/23 23:36 Pulse Rate 96 04/02/23 23:36 Respiratory Rate 15 04/02/23 23:36 Blood Pressure 141/96 H 04/02/23 23:36 Pulse Oximetry 100 04/02/23 23:36 Oxygen Delivery Room Air 04/02/23 23:36 Temperature 35.8 C L 04/02/23 23:36 Pulse Rate 96 04/02/23 23:36 Respiratory Rate 15 04/02/23 23:36 Blood Pressure 141/96 H 04/02/23 23:36 Pulse Oximetry 100 04/02/23 23:36 Oxygen Delivery Room Air 04/02/23 23:36 Critical Care Time Critical Care Time Critical Care Time: No Discharge Plan Discharge Clinical Impression: Bronchitis Patient Disposition: Home, Self-Care Condition: Stable Instructions: Antibiotic Form, Acute Bronchitis (ED) Additional Instructions: take medicine as prescribed and advised to follow-up with a primary for further evaluation treatment. Prescriptions: New ProAir RespiClick 90 mcg/actuation aerosol powdr breath activated 2 inh inhalation QID PRN (Reason: shortness of breath) Qty: 1 0RF azithromycin [Zithromax Z-King] 250 mg tablet See Rx Instructions .ROUTE .COMPLEX Qty: 6 0RF Rx Instructions: For 250 mg dose pack: take 500 mg today (day 1), then 250 mg for 4 days (days 2-5) prednisone 20 mg tablet 20 mg PO DAILY 5 Days Qty: 5 0RF Follow-up/Referrals: UNKNOWN,DOCTOR [Primary Care
[2023-04-03] VITALS: PULSE 82; RESP 12; O2SAT 99
[2023-04-03 00:15] VITALS: PULSE 86; RESP 19; O2SAT 100
[2023-04-03 00:30] VITALS: PULSE 88; RESP 18; O2SAT 100
[2023-04-03 00:34] LABS: Influenza A QL RT-PCR Negative (Negative); Influenza B QL RT-PCR Negative (Negative); RSV RNA, RT-PCR Negative (Negative); SARS-CoV-2 RNA PCR Negative (Negative)
[2023-04-03] MEDS: AZITHROMYCIN 250 MG TABLET 500 MG PO (00:46)
== END 2023-04-03 00:53 | disposition home or self-care (01) ==
PROVIDERS: Emergency Provider Emergency Medicine
DX: J40 Bronchitis, not specified as acute or chronic (principal); F17.210 Nicotine dependence, cigarettes, uncomplicated
CPT/HCPCS: 71045; 87637; 99283; A9270

== ENCOUNTER 2023-05-31 20:19 | Emergency (ER) | payer OTHER, SELFPAY ==
--- NOTE | ~2023-05-31 | CT_ITS ---
Non-contrast CT scan of the Abdomen and Pelvis Clinical indication: Abdominal pain Technique: 2.5 mm axial scans were obtained through the abdomen and pelvis without intravenous or or al contrast. Dose reduction technique was used on this scan by utilizing automated exposure control a nd iterative reconstruction technique. The dose-length product (DLP) was 294.26 mGy-cm. Findings: Images through the lung bases reveal no abnormalities. There is no evidence of renal or ureteral calculi. The kidneys and the ureters are nondilated. The liver, spleen, pancreas, and adrenals appear normal. Cholecystectomy clips are present. There is no aortic aneurysm. There is no evidence of bowel obstruction. Prominent stool suggests constipation. Images through the pelvis were performed. There is no evidence of ascites or lymphadenopathy. Urinary bladder unremarkable. No pelvic mass seen. Impression: Constipation. No other significant findings. Reviewed, dictated and finalized at [facility]. Impression: Constipation. No other significant findings.
[2023-05-31 20:21] VITALS: BP 126/88; PULSE 100; RESP 18; TEMP 36.7; O2SAT 98
--- NOTE | 2023-05-31 22:00 | ED.GENADULT ---
HPI - General Adult General Chief complaint: Abdominal Pain Stated complaint: abd pain Source: patient Mode of arrival: ambulatory Limitations: no limitations History of Present Illness HPI narrative: Patient is a 43-year-old female with abdominal pain this evening. Patient has been having troubles for the past month. Pain is lower abdomen. Onset (ago): month(s) (1) Location: abdomen Radiation: back Severity: moderate Severity scale (1-10): 5 Quality: sharp Pain Consistency: constant Relieving factors: none Exacerbating factors: none Associated symptoms: loss of appetite, malaise and weakness ( near syncope) Treatments prior to arrival: none Related Data Home Medications Medication Instructions Recorded Confirmed No Home Medications 05/31/23 05/31/23 Allergies Allergy/AdvReac Type Severity Reaction Status Date / Time Penicillins Allergy Severe Difficulty Verified 04/02/23 23:41 Swallowing codeine AdvReac Swelling Verified 04/02/23 23:41 NSAIDS (Non-Steroidal AdvReac Swelling Verified 04/02/23 23:41 Anti-Inflamma of Lip/Tongue/Throat Review of Systems Review of Systems: All systems reviewed & are unremarkable except as noted in HPI and below Constitutional: Constitutional: Reports no additional constitutional complaints Eyes: Eyes: Reports no additional eye complaints ENT: Reports system reviewed and no additional complaints, except as documented Cardiovascular: Cardiovascular: Reports no additional cardiovascular complaints Respiratory: Respiratory: Reports no additional respiratory complaints Gastrointestinal: Gastrointestinal: Reports no additional gastrointestinal complaints Genitourinary: Genitourinary: Reports no additional female genitourinary complaints Musculoskeletal: Musculoskeletal: Reports no additional musculoskeletal complaints Integumentary/Breasts: Skin/Breast: Reports system reviewed and no additional complaints, except as docu Neurologic: Reports system reviewed and no additional complaints, except as documented Psychiatric: Psychiatric: Reports no additional psychiatric complaints Endocrine: Endocrine: Reports no additional endocrine complaints Hematologic/Lymphatic: Hematologic/Lymphatic: Reports no additional hematologic/lymphatic complaints Allergic/Immunologic: Allergic/Immunologic: Reports no additional allergic/immunologic complaints PMFSH Past Medical History Medical History Drug abuse Tooth decay Surgical History Surgical History No significant past surgical history Family History Family History Father No problems noted. Father Lung cancer Mother Heart disease Social History Social History Years smoked: 20 Smoking status: Current every day smoker Tobacco type: cigarettes Second hand tobacco smoke exposure: Yes Alcohol intake: former Substance use: former Substance use type: painkillers Gender identity (if verbalized by the patient): Female Spiritual care concerns: No Exam Const: General: healthy appearing Nutritional Appearance: well nourished Orientation/consciousness: patient oriented x3 HENMT: Head: normal to inspection Ears: external ears normal Face/Nose/Sinus: Normal external nose present Eyes: Conjunctivae: conjunctivae normal Pupils: Equal, round and reactive pupils present EOM: EOMs intact bilaterally Neck: Neck: normal visual inspection Chest: Chest palpation & inspection: normal inspection of the chest Resp: Effort & Inspection: normal respiratory effort and not labored Auscultation: clear to auscultation bilaterally Cardio: Rate: regular rate Rhythm: regular rhythm Heart sounds: no murmurs GI: Inspection: non-distended GI Palp: Yes Soft to palpation, Yes Ten
[2023-05-31 22:13] LABS: Basophils Absolute Auto 0.06 K/mm3 (0.00-0.10); Basophils Percent Auto 0.6 % (0.0-1.0); Eosinophils Absolute Auto 0.16 K/mm3 (0.02-0.50); Eosinophils Percent Auto 1.7 % (1.0-6.0); Hematocrit 38.6 % (35.0-49.0); Hemoglobin 12.5 g/dL (12.0-15.0); Immature Granulocyte Absolute 0.03 K/mm3 (0.00-0.00); Immature Granulocyte Percent A 0.3 % (0.0-0.0); Lymphocytes Absolute Auto 4.05 K/mm3 (1.10-4.50); Lymphocytes Percent Auto 42.3 % (18.0-42.0); Mean Corpuscular HGB Conc 32.4 g/dL (32-36); Mean Corpuscular Hemoglobin 30.5 pg (27.0-31.0); Mean Corpuscular Volume 94.1 fL (78.0-102.0); Mean Platelet Volume 8.6 fl (9.2-11.8); Monocytes Absolute Auto 0.81 K/mm3 (0.10-0.90); Monocytes Percent Auto 8.5 % (2.0-11.0); Neutrophils Absolute Auto 4.46 K/mm3 (1.70-7.20); Neutrophils Percent Auto 46.6 % (50.0-70.0); Platelet Count Result 409 K/mm3 (150-420); Red Cell Distribution Width 12.8 % (11.6-14.4); White Blood Count 9.6 K/mm3 (4.8-10.8)
[2023-05-31 22:36] LABS: Appearance Urine Clear (Clear); Bilirubin Urine Negative (Negative); Color Urine Yellow (Yellow); Glucose Urine UA Negative (Negative); Ketones Urine Negative (Negative); Leukocyte Esterase Ur Negative LEU/UL (Negative); Nitrate Urine Negative (Negative); Protein Urine Negative (Negative); Urobilinogen Urine 0.2 mg/dL (0.2-1.0)
[2023-05-31 22:44] LABS: Alanine Aminotransferase 37 U/L (14-59); Albumin Level 3.6 g/dL (3.4-5.0); Alkaline Phosphatase 95 U/L (46-116); Anion Gap 4 mmol/L (4-12); Aspartate Amino Transferase 21 U/L (15-37); Bilirubin,Total 0.3 mg/dL (0.00-1.00); Blood Urea Nitrogen 12 mg/dL (7-18); Calcium 9.1 mg/dL (8.5-10.1); Carbon Dioxide 34 mmol/L (21-32); Chloride 104 mmol/L (98-108); Estimated CRCL calculation 46 ml/min; Estimated Glomerular Filt Rate 55; Glucose 80 mg/dL (70-99); Lipase 86 U/L (16-77); Osmolality Calculated 292 mOsm/kg (285-295); Potassium 3.7 mmol/L (3.5-5.1); Sodium 142 mmol/L (136-145); Total Protein 7.2 g/dL (6.4-8.2)
[2023-05-31 22:44] LABS: Add Urine Microscopic? YES; Bacteria Urine 1+ /hpf; Blood Urine Trace-Lysed (Negative); Mucus Urine Few /lpf; RBC Urine 0-2 /hpf (0-2); Squamous Epithelial Cell Urine Few /hpf (Few); WBC Urine 0-3 /hpf (0-3)
[2023-05-31 22:45] LABS: Pregnancy On Board Control Positive; Urine Pregnancy Test Negative
[2023-05-31 22:50] LABS: Lactic Acid Reflex 0.5 mmol/L (0.4-2.0)
[2023-05-31 23:43] VITALS: BP 133/74; PULSE 80; RESP 18; O2SAT 98
--- NOTE | 2023-06-01 00:19 | PC.NURSE ---
Pt given instructions and pamphlets on drug rehab facilities to contact. Pt accepted info and stated she will try to call and get into a facility.
[2023-06-01 00:36] VITALS: BP 98/56; PULSE 75; RESP 18; TEMP 36.4; O2SAT 97
== END 2023-06-01 00:36 | disposition home or self-care (01) ==
PROVIDERS: Emergency Provider Emergency Medicine
DX: R10.30 Lower abdominal pain, unspecified (principal); F17.210 Nicotine dependence, cigarettes, uncomplicated
CPT/HCPCS: 36415; 74176; 80053; 81001; 81025; 83605; 83690; 85025; 99284

== ENCOUNTER 2023-07-05 18:56 | Emergency (ER) | payer OTHER, SELFPAY ==
--- NOTE | ~2023-07-05 | XR_ITS ---
EXAMINATION: XR shoulder LT min 2V DATE: 07/05/2023 19:23 INDICATION: Left shoulder pain. Fall. TECHNIQUE: 4 views of left shoulder were obtained. COMPARISON: None. FINDINGS: Bone alignment is normal. No fracture. Glenohumeral joint is normal. There is mild acromioc lavicular joint osteoarthritis. IMPRESSION: 1. Mild acromioclavicular joint osteoarthritis. Reviewed, dictated and finalized at location E.
--- NOTE | ~2023-07-05 | XR_ITS ---
EXAMINATION: XR hand LT min 3V DATE: 07/05/2023 19:23 INDICATION: Left thumb pain. Fall. TECHNIQUE: 3 views of left hand were obtained. COMPARISON: None. FINDINGS: Bone alignment is normal. There is an oblique fracture of first proximal phalanx at its rad ial aspect with involvement of the distal articular surface in near-anatomic alignment. Joint spaces are normal. IMPRESSION: 1. Oblique fracture of first proximal phalanx involving the distal articular surface. Reviewed, dictated and finalized at location E. IMPRESSION: 1. Oblique fracture of first proximal phalanx involving the distal articular cox rface.
[2023-07-05 18:59] VITALS: BP 116/81; PULSE 103; RESP 19; TEMP 37.1; O2SAT 99
--- NOTE | 2023-07-05 19:04 | ED.GENADULT ---
HPI - General Adult General Chief complaint: Extremity Injury, Upper <Nj Schulte DO - Last Filed: 07/05/23 19:11> Stated complaint: L hand injury <Nj Schulte DO - Last Filed: 07/05/23 19:11> Time Seen by Provider: 07/05/23 19:02 <Nj Schulte DO - Last Filed: 07/05/23 19:11> History of Present Illness HPI narrative: Jaycee presented to clinic after a fall on her left upper extremity. She is having severe pain and swelling in her left hand and moderate pain in her left shoulder. No other injuries reported. <Nj Schulte DO - Last Filed: 07/05/23 19:11> MD complaint: fall <Catalino Khan MD - Last Filed: 07/05/23 19:50> Onset (ago): hour(s) <Catalino Khan MD - Last Filed: 07/05/23 19:50> Location: left and upper extremity <Catalino Khan MD - Last Filed: 07/05/23 19:50> Radiation: non-radiation <Catalino Khan MD - Last Filed: 07/05/23 19:50> Severity: moderate <Catalino Khan MD - Last Filed: 07/05/23 19:50> Severity scale (1-10): 5 <Catalino Khan MD - Last Filed: 07/05/23 19:50> Quality: stabbing and aching <Catalino Khan MD - Last Filed: 07/05/23 19:50> Pain Consistency: constant <aCtalino Khan MD - Last Filed: 07/05/23 19:50> Relieving factors: none <Catalino Khan MD - Last Filed: 07/05/23 19:50> Exacerbating factors: none <Catalino Khan MD - Last Filed: 07/05/23 19:50> Associated symptoms: denies other symptoms <Catalino Khan MD - Last Filed: 07/05/23 19:50> Treatments prior to arrival: none <Catalino Khan MD - Last Filed: 07/05/23 19:50> Related Data Home medications: Home Medications Medication Instructions Recorded Confirmed citalopram 10 mg tablet 10 mg PO DAILY 07/05/23 07/05/23 <Nj Schulte DO - Last Filed: 07/05/23 19:11> Allergies/adverse reactions: Allergies Allergy/AdvReac Type Severity Reaction Status Date / Time Penicillins Allergy Severe Difficulty Verified 07/05/23 18:59 Swallowing codeine AdvReac Swelling Verified 07/05/23 18:59 NSAIDS (Non-Steroidal AdvReac Swelling Verified 07/05/23 18:59 Anti-Inflamma of Lip/Tongue/Throat <Nj Schulte DO - Last Filed: 07/05/23 19:11> Review of Systems Review of Systems: All systems reviewed & are unremarkable except as noted in HPI and below <Nj Schulte DO - Last Filed: 07/05/23 19:11> Constitutional: Constitutional: Reports no additional constitutional complaints <Catalino Khan MD - Last Filed: 07/05/23 19:50> Eyes: Eyes: Reports no additional eye complaints <Catalino Khan MD - Last Filed: 07/05/23 19:50> ENT: Reports system reviewed and no additional complaints, except as documented <Catalino Khan MD - Last Filed: 07/05/23 19:50> Cardiovascular: Cardiovascular: Reports no additional cardiovascular complaints <Catalino Khan MD - Last Filed: 07/05/23 19:50> Respiratory: Respiratory: Reports no additional respiratory complaints <Catalino Khan MD - Last Filed: 07/05/23 19:50> Gastrointestinal: Gastrointestinal: Reports no additional gastrointestinal complaints <Catalino Khan MD - Last Filed: 07/05/23 19:50> Genitourinary: Genitourinary: Reports no additional female genitourinary complaints <Catalino Khan MD - Last Filed: 07/05/23 19:50> Musculoskeletal: Musculoskeletal: Reports as per HPI and Reports arthralgias (left first thumb) <Catalino Khan MD - Last Filed: 07/05/23 19:50> Integumentary/Breasts: Skin/Breast: Reports system reviewed and no additional complaints, except as docu <Catalnio Khan MD - Last Filed: 07/05/23 19:50> Neurologic: Reports system reviewed and no additional complaints, except as documented <Catalino Khan MD - Last Filed: 07/05/23 19:50> Psychiatric: Psychiatric: Reports no additional psychiatric complaints <Catalino Khan MD - Last Filed: 07/05/23 19:50> Endocrine: En
== END 2023-07-05 20:00 | disposition home or self-care (01) ==
PROVIDERS: Emergency Provider Family Medicine
DX: S62.512A Displaced fracture of proximal phalanx of left thumb, initial encounter for closed fracture (principal); W19.XXXA Unspecified fall, initial encounter; F17.210 Nicotine dependence, cigarettes, uncomplicated
CPT/HCPCS: 29130; 73030; 73130; 99284

== ENCOUNTER 2023-07-08 11:41 | Emergency (ER) | payer OTHER, SELFPAY ==
[2023-07-08 11:45] VITALS: BP 127/85; PULSE 79; RESP 19; TEMP 36.9; O2SAT 98
--- NOTE | 2023-07-08 11:51 | ED.UPPEXIN ---
HPI - Extremity Injury (Upper) General Chief Complaint: Extremity Injury, Upper Stated Complaint: thumb injury Time Seen by Provider: 07/08/23 11:43 Source: patient Mode of arrival: ambulatory Limitations: no limitations History of Present Illness HPI narrative: 43-year-old female presented to the ER on 07/05/1999 24 after a fall with left hand injury. She was noted to have a left thumb proximal phalanx fracture. She had a metal splint. She presents to the ER with ongoing pain and wanting splint as a metal splint which she had fell off. No other injuries noted. complaint: injury to: left and finger Onset (ago): day(s) ( Three days ago) Other Extremity Injury: Left: fingers Other injuries: none Handedness: ambidextrous Place: home Severity: moderate Relieving factors: none Exacerbating factors: none Context: fall Associated symptoms: denies other symptoms Related Data Home Medications Medication Instructions Recorded Confirmed citalopram 10 mg tablet 10 mg PO DAILY 07/05/23 07/05/23 Allergies Allergy/AdvReac Type Severity Reaction Status Date / Time Penicillins Allergy Severe Difficulty Verified 07/08/23 12:06 Swallowing codeine AdvReac Swelling Verified 07/08/23 12:06 NSAIDS (Non-Steroidal AdvReac Swelling Verified 07/08/23 12:06 Anti-Inflamma of Lip/Tongue/Throat Review of Systems Review of Systems: All systems reviewed & are unremarkable except as noted in HPI and below PMFSH Past Medical History Medical History Drug abuse Tooth decay Surgical History Surgical History No significant past surgical history Family History Family History Father No problems noted. Father Lung cancer Mother Heart disease Social History Social History Years smoked: 20 Smoking status: Current every day smoker Tobacco type: cigarettes Second hand tobacco smoke exposure: Yes Alcohol intake: former Substance use: former Substance use type: painkillers Gender identity (if verbalized by the patient): Female Spiritual care concerns: No Exam Const: General: no acute distress Nutritional Appearance: well nourished Orientation/consciousness: patient oriented x3 Limitations: no limitations HENMT: Head: normal to inspection Ears: external ears normal Face/Nose/Sinus: Normal external nose present Face and sinus: normal facial exam Mouth: Yes Normal oral and palatal mucosa present Throat: posterior oropharynx normal Eyes: Conjunctivae: conjunctivae normal Pupils: Equal, round and reactive pupils present EOM: EOMs intact bilaterally Direct Ophthalmoscopy: no photophobia Neck: Neck: normal visual inspection Chest: Chest palpation & inspection: normal inspection of the chest Resp: Effort & Inspection: normal respiratory effort Auscultation: clear to auscultation bilaterally Cardio: Rate: regular rate Rhythm: regular rhythm GI: GI Palp: Yes Soft to palpation Auscultation: normal bowel sounds : General: Yes no CVA tenderness Back/Spine/Pelvis: Back: no CVA tenderness Skin: General skin exam: normal color Rashes: no rashes Wounds: no wounds Neuro: General: patient oriented x3, moves all extremities, no meningeal signs, no focal motor deficits and CN's II-XI intact bilaterally Cranial nerves: Yes Nystagmus not present Speech: normal speech Gait exam (Neuro): Normal gait present Extrem: Other: left thumb swelling with decreased range of motion at 1st MP joint. Ecchymoses around the thumb and radiates down the forearm Psych: Mental Status: mental status grossly normal Affect: normal affect Attitude: cooperative Course Course Emergency Course: left thumb fracture with ongoing pain. Will splint the with a left thumb spic
== END 2023-07-08 12:20 | disposition home or self-care (01) ==
LOC: CHSED 12:05
PROVIDERS: Emergency Provider Internal Medicine Critical Care Medicine
DX: M79.645 Pain in left finger(s) (principal); S62.512D Displaced fracture of proximal phalanx of left thumb, subsequent encounter for fracture with routine healing; W19.XXXD Unspecified fall, subsequent encounter; F17.210 Nicotine dependence, cigarettes, uncomplicated
CPT/HCPCS: 29125; 99284

== ENCOUNTER 2023-08-14 09:33 | Emergency (ER) | payer OTHER, SELFPAY ==
--- NOTE | ~2023-08-14 | XR_ITS ---
EXAMINATION: XR foot LT min 3V DATE: 08/14/2023 09:42 INDICATION: Pain over the left great toe post blunt trauma TECHNIQUE: Dorsoplantar, two oblique and lateral views of the left foot were obtained. COMPARISON: None. FINDINGS: Small nondisplaced fracture at the tuft of the left first distal phalanx. Alignment remains essential ly anatomic. No other fractures identified. Joint spaces are relatively preserved. IMPRESSION: 1. Nondisplaced fracture at the tuft of the left first distal phalanx. Reviewed, dictated and finalized at location A.
[2023-08-14 09:35] VITALS: BP 142/87; PULSE 93; RESP 20; TEMP 36.4; O2SAT 99
--- NOTE | 2023-08-14 09:37 | ED.GENADULT ---
HPI - General Adult General Chief complaint: Extremity Injury, Lower Stated complaint: left foot injury History of Present Illness HPI narrative: this is a 43-year-old female presenting after dropping a plastic pipe on her foot. She now has pain over her left great toe and the base of the left great toe. She is not taking anything for pain control. Related Data Home Medications Medication Instructions Recorded Confirmed citalopram 10 mg tablet 10 mg PO DAILY 07/05/23 07/08/23 Allergies Allergy/AdvReac Type Severity Reaction Status Date / Time Penicillins Allergy Severe Difficulty Verified 07/08/23 12:06 Swallowing codeine AdvReac Swelling Verified 07/08/23 12:06 NSAIDS (Non-Steroidal AdvReac Swelling Verified 07/08/23 12:06 Anti-Inflamma of Lip/Tongue/Throat PMFSH Past Medical History Medical History Drug abuse Tooth decay Surgical History Surgical History No significant past surgical history Family History Family History Father No problems noted. Father Lung cancer Mother Heart disease Social History Social History Years smoked: 20 Smoking status: Current every day smoker Tobacco type: cigarettes Second hand tobacco smoke exposure: Yes Alcohol intake: former Substance use: former Substance use type: painkillers Gender identity (if verbalized by the patient): Female Spiritual care concerns: No Exam Narrative: APPEARANCE: No apparent distress. Head: atraumatic. poor dentition EYES: EOMI, NOSE: Atraumatic NECK: Trachea midline RESPIRATORY: No increased rate of breathing CARDIOVASCULAR: RRR, ABDOMINAL: Non-distended MUSCULOSKELETAl: Mild erythema over the left great toe. No obvious deformity or bruising. Subungal hematoma approximately 25% of the nail bed NEURO: Alert. Moving 4/4 extremities SKIN:: Bruising over the patient's upper arms at various stages of healing PSYCHIATRIC: Normal affect Course Vital Signs Vital signs: Vital Signs Temperature 97.6 F 08/14/23 09:35 Pulse Rate 93 08/14/23 09:35 Respiratory Rate 20 08/14/23 09:35 Blood Pressure 142/87 H 08/14/23 09:35 Pulse Oximetry 99 08/14/23 09:35 Oxygen Delivery Room Air 08/14/23 09:35 Temperature 97.6 F 08/14/23 09:35 Pulse Rate 93 08/14/23 09:35 Respiratory Rate 20 08/14/23 09:35 Blood Pressure 142/87 H 08/14/23 09:35 Pulse Oximetry 99 08/14/23 09:35 Oxygen Delivery Room Air 08/14/23 09:35 Medical Decision Making MDM Narrative Medical decision making narrative: -Course: 43-year-old female presenting for great toe pain. X-rays showed a nondisplaced tuft fracture.. Subungual hematoma underneath the great nail was trephinated with some relief. Patient given Tylenol and discharged. -DDX includes but is not limited to: Bony injury, soft tissue injury, subungual hematoma -Co-morbidities complicating care: polysubstance use disorder -Independent interpretation of studies: x-rays negative for fracture -Interventions: Tylenol -Shared decision making / Disposition: discharged -RX Tylenol Vital Signs Vital Signs: Vital Signs Temperature 97.6 F 08/14/23 09:35 Pulse Rate 93 08/14/23 09:35 Respiratory Rate 20 08/14/23 09:35 Blood Pressure 142/87 H 08/14/23 09:35 Pulse Oximetry 99 08/14/23 09:35 Oxygen Delivery Room Air 08/14/23 09:35 Temperature 97.6 F 08/14/23 09:35 Pulse Rate 93 08/14/23 09:35 Respiratory Rate 20 08/14/23 09:35 Blood Pressure 142/87 H 08/14/23 09:35 Pulse Oximetry 99 08/14/23 09:35 Oxygen Delivery Room Air 08/14/23 09:35 Discharge Plan Discharge Clinical Impression: Fracture of toe Patient Disposition: Home, Self-Care Condition: Stable
--- NOTE | 2023-08-14 09:41 | PC.NURSE ---
requested pt have her big toe nail new zealander removed; began completing it & pt stated she wanted to do it herself since it was very painful
[2023-08-14] MEDS: ACETAMINOPHEN 500 MG TABLET 1000 MG PO (09:43)
== END 2023-08-14 10:08 | disposition home or self-care (01) ==
LOC: CHSED 10:06
PROVIDERS: Emergency Provider Emergency Medicine
DX: S92.425A Nondisplaced fracture of distal phalanx of left great toe, initial encounter for closed fracture (principal); F17.210 Nicotine dependence, cigarettes, uncomplicated; W22.8XXA Striking against or struck by other objects, initial encounter
CPT/HCPCS: 11740; 73630; 99283

== ENCOUNTER 2023-09-28 15:55 | Emergency (ER) | payer OTHER, SELFPAY ==
--- NOTE | ~2023-09-28 | CT_ITS ---
EXAMINATION: CT chest abdomen pelvis w con DATE: 09/28/2023 18:03 INDICATION: rib fracture, splenic injury, kidney injury . TECHNIQUE: Computed tomography (CT) of the chest, abdomen, and pelvis was performed with 100 mL Omnip aque-350 intravenous contrast. Automated exposure control and iterative reconstruction technique were employed. The dose-length product was 342.32 mGy-cm. COMPARISON: None FINDINGS: CHEST: No thoracic aortic injury. No mediastinal hematoma. No pericardial effusion. No acute lung injury. No pleural effusion or pneumothorax. ABDOMEN/PELVIS: No solid organ injury. Simple right renal cyst. Bilateral hypodensities too small to characterize. 3 mm right midpole nonobstructing calcification. No evidence of bowel or mesenteric injury. Status post cholecystectomy. Dropped clip posterior to the liver. No free fluid or free air. No retroperitoneal hematoma. Pelvic contents are atraumatic. MUSCULOSKELETAL: No acute fracture. No fracture or traumatic malalignment of the thoracic or lumbar spine. IMPRESSION: No acute process detected in the chest, abdomen, or pelvis. Reviewed, dictated and finalized at location K.
[2023-09-28 15:55] VITALS: BP 146/117; PULSE 111; RESP 22; TEMP 36.6; O2SAT 100
--- NOTE | 2023-09-28 16:07 | ED.FALL ---
HPI - Fall General Chief Complaint: Fall Stated Complaint: left side pain - rib pain Time Seen by Provider: 09/28/23 16:02 Source: patient and family Limitations: no limitations History of Present Illness HPI Narrative: 43 YEARS OLD WHITE FEMALE SLIPPED AND FELL IN THE BATHTUB 1 HOUR PRIOR TO ARRIVAL LANDED ON THE EDGE OF BED TOP COMPLAINING OF SEVERE PAIN LEFT LOWER RIBS AND LEFT UPPER ABDOMEN WORSE WITH MOVEMENT AND BREATHING. SHE DENIES OTHER INJURIES. Related Data Home Medications Medication Instructions Recorded Confirmed No Home Medications 09/28/23 09/28/23 Allergies Allergy/AdvReac Type Severity Reaction Status Date / Time Penicillins Allergy Severe Difficulty Verified 09/28/23 16:01 Swallowing codeine AdvReac Swelling Verified 09/28/23 16:01 NSAIDS (Non-Steroidal AdvReac Swelling Verified 09/28/23 16:01 Anti-Inflamma of Lip/Tongue/Throat Review of Systems Review of Systems: All systems reviewed & are unremarkable except as noted in HPI and below PMFSH Past Medical History Medical History Drug abuse Tooth decay Surgical History Surgical History No significant past surgical history Family History Family History Father No problems noted. Father Lung cancer Mother Heart disease Social History Social History Years smoked: 20 Smoking status: Current every day smoker Tobacco type: cigarettes Second hand tobacco smoke exposure: Yes Alcohol intake: former Substance use: former Substance use type: painkillers Gender identity (if verbalized by the patient): Female Spiritual care concerns: No Exam Narrative: GENERAL APPEARANCE: WELL-DEVELOPED, WELL-NOURISHED SKIN: NORMAL COLOR HEAD: NORMOCEPHALIC, NONTRAUMATIC EYES: CLEAR CONJUNCTIVA ENT: OROPHARYNX NORMAL, EARS NORMAL, NOSE NORMAL NECK: SUPPLE, NONTENDER CHEST AND RESPIRATORY: AIRWAY PATENT, NO RESPIRATORY DISTRESS, NO ACCESSORY MUSCLE USE , SEVERE TENDERNESS LEFT LOWER RIBS MID AXILLARY LINE, NO BRUISES, NO SWELLING. HEART: REGULAR RATE/RHYTHM ABDOMEN: SOFT, SEVERE TENDERNESS IN LEFT UPPER QUADRANT WITH LIGHT PALPATION, NO ORGANOMEGALY, QUIET BOWEL SOUNDS VASCULAR: NORMAL PERIPHERAL PULSES, NORMAL CAPILLARY REFILL. NEUROLOGIC: ALERT AND ORIENTED ?3, AUDIT OFFICER IS NORMAL TESTED, NO GROSS MOTOR DEFICIT Course Vital Signs Vital signs: Vital Signs Temperature 36.6 C 09/28/23 15:55 Pulse Rate 111 H 09/28/23 15:55 Respiratory Rate 22 H 09/28/23 15:55 Blood Pressure 146/117 H 09/28/23 15:55 Pulse Oximetry 100 09/28/23 15:55 Oxygen Delivery Room Air 09/28/23 15:55 Temperature 36.6 C 09/28/23 15:55 Pulse Rate 83 09/28/23 18:14 Respiratory Rate 20 09/28/23 16:42 Blood Pressure 149/90 H 09/28/23 18:14 Pulse Oximetry 100 09/28/23 18:14 Oxygen Delivery Room Air 09/28/23 18:14 MDM - Fall MDM Narrative Medical decision making narrative: PATIENT LANDED ON THE AGE OF A BATHTUB PRIOR TO ARRIVAL, CT CHEST, ABDOMEN AND PELVIS WITH IV CONTRAST ORDERED TO RULE OUT THE POSSIBILITY OF SPLENIC INJURY, RIB FRACTURE OR KIDNEY INJURY. CT SCAN SHOWED NO ACUTE ABNORMALITIES. Differential Diagnosis Differential diagnosis: Likely other ( RIB FRACTURE, SPLENIC INJURY, KIDNEY INJURY, PULMONARY CONTUSION) Medical Records Attestation: I reviewed the patient's medical records. Lab Data Attestation: I reviewed the patient's lab results. 09/28/23 16:35 09/28/23 16:35
[2023-09-28] MEDS: ONDANSETRON INJ 4 MG/2 ML VIAL IV PUSH (16:30)
[2023-09-28] MEDS: HYDROmorphone HCL INJ (*CRX) 2 MG/ML VIAL 0.5 MG IV PUSH (16:30)
[2023-09-28] MEDS: SODIUM CHLORIDE 0.9% IV 1,000 ML 999 ML IV CONT (16:31)
[2023-09-28 16:42] VITALS: BP 179/112; RESP 20; O2SAT 99
[2023-09-28 16:48] LABS: Basophils Absolute Auto 0.04 K/mm3 (0.00-0.10); Basophils Percent Auto 0.4 % (0.0-1.0); Eosinophils Absolute Auto 0.04 K/mm3 (0.02-0.50); Eosinophils Percent Auto 0.4 % (1.0-6.0); Hematocrit 38.9 % (35.0-49.0); Hemoglobin 12.9 g/dL (12.0-15.0); Immature Granulocyte Absolute 0.03 K/mm3 (0.00-0.00); Immature Granulocyte Percent A 0.3 % (0.0-0.0); Lymphocytes Absolute Auto 1.27 K/mm3 (1.10-4.50); Mean Corpuscular HGB Conc 33.2 g/dL (32-36); Mean Corpuscular Hemoglobin 30.6 pg (27.0-31.0); Mean Corpuscular Volume 92.4 fL (78.0-102.0); Mean Platelet Volume 8.7 fl (9.2-11.8); Monocytes Absolute Auto 0.39 K/mm3 (0.10-0.90); Monocytes Percent Auto 4.3 % (2.0-11.0); Neutrophils Absolute Auto 7.27 K/mm3 (1.70-7.20); Neutrophils Percent Auto 80.6 % (50.0-70.0); Platelet Count Result 433 K/mm3 (150-420); Red Blood Count 4.21 M/mm3 (4.20-5.40); Red Cell Distribution Width 12.8 % (11.6-14.4)
--- NOTE | 2023-09-28 17:34 | PC.NURSE ---
PT IS LYING ON LEFT SIDE IN EXAM ROOM AT THIS TIME, TEXTING ON CELL PHONE. PT HAS IVF INFUSING ORDERED WITHOUT DIFFICULTY. PT IS AWAITING LAB RESULTS AND CT AT PRESENT. PT REPORTS THE PAIN IS BETTER AT THIS TIME. WILL CONTINUE TO MONITOR.
[2023-09-28 17:43] LABS: SPREG INTERNAL CONTROL Positive; Serum Qual hCG Negative
--- NOTE | 2023-09-28 18:02 | PC.NURSE ---
PT IS AWAITING CT AND LAB RESULTS AT THIS TIME. SIG OTHER HAS RETURNED. WILL CONTINUE TO MONITOR.
--- NOTE | 2023-09-28 18:07 | PC.NURSE ---
Pt laying supine in stretcher. Sig other at bedside. Pt states that pain level has returned to an 8. advised by ERP earlier not give pt anything to drink. Ignored ERP. Pt has been consuming liquids in her room. Advised pt that she is to have nothing by mouth until we receive her CT results. I explained adverse effects if she would need surgery, up to and including delayed care because she has liquids in her stomach. Pt not happy but verbalized understanding.
[2023-09-28 18:14] VITALS: BP 149/90; PULSE 83; O2SAT 100
[2023-09-28 18:21] LABS: Alanine Aminotransferase 24 U/L (6-35); Albumin Level 4.6 g/dL (3.5-5.1); Alkaline Phosphatase 70 U/L (38-126); Anion Gap 10 mmol/L (4-12); Aspartate Amino Transferase 28 U/L (14-36); Bilirubin,Total 0.3 mg/dL (0.2-1.3); Blood Urea Nitrogen 17 mg/dL (7-17); Calcium 9.4 mg/dL (8.4-10.2); Carbon Dioxide 29 mmol/L (22-30); Chloride 102 mmol/L (98-107); Estimated CRCL calculation 53 ml/min; Estimated Glomerular Filt Rate 55; Glucose 108 mg/dL (65-110); Osmolality Calculated 294 mOsm/kg (285-295); Potassium 4.1 mmol/L (3.4-5.0); Sodium 141 mmol/L (137-145)
--- NOTE | 2023-09-28 18:46 | PC.NURSE ---
PT IS BACK IN CT AT THIS TIME.
[2023-09-28 19:31] VITALS: BP 115/74; PULSE 81; RESP 18; TEMP 36.3; O2SAT 100
== END 2023-09-28 19:45 | disposition home or self-care (01) ==
PROVIDERS: Emergency Provider Emergency Medicine
DX: R07.89 Other chest pain (principal); F17.210 Nicotine dependence, cigarettes, uncomplicated; W18.2XXA Fall in (into) shower or empty bathtub, initial encounter
CPT/HCPCS: 36415; 71260; 74177; 80053; 84703; 85025; 96361; 96374; 96375; 99284; J1170; J2405; J7030; Q9967

== ENCOUNTER 2023-10-11 18:29 | Emergency (ER) | payer OTHER, SELFPAY ==
[2023-10-11 18:29] VITALS: BP 126/90; PULSE 93; RESP 16; TEMP 36.4; O2SAT 99
--- NOTE | 2023-10-11 18:45 | ED.FEMALEGU ---
HPI - Female Genitourinary General Chief complaint: Urogenital-Female Stated complaint: FLANK PAIN Time Seen by Provider: 10/11/23 18:39 Source: patient Mode of arrival: ambulatory Limitations: no limitations History of Present Illness HPI Narrative: 43 years old white female came with painful urination, suprapubic pain, right flank discomfort started 2-3 days ago. Patient reported stinky vaginal discharge. She denies any fever, chills, nausea, vomiting Related Data Allergies Allergy/AdvReac Type Severity Reaction Status Date / Time Penicillins Allergy Severe Difficulty Verified 10/11/23 18:33 Swallowing codeine AdvReac Swelling Verified 10/11/23 18:33 NSAIDS (Non-Steroidal AdvReac Swelling Verified 10/11/23 18:33 Anti-Inflamma of Lip/Tongue/Throat Review of Systems Review of Systems: All systems reviewed & are unremarkable except as noted in HPI and below PMFSH Past Medical History Medical History Drug abuse Tooth decay Surgical History Surgical History No significant past surgical history Family History Family History Father No problems noted. Father Lung cancer Mother Heart disease Social History Social History Years smoked: 20 Smoking status: Current every day smoker Tobacco type: cigarettes Second hand tobacco smoke exposure: Yes Alcohol intake: former Substance use: former Substance use type: painkillers Gender identity (if verbalized by the patient): Female Spiritual care concerns: No Exam Narrative: General appearance: Well-developed, well-nourished Skin: Normal color Head: Normocephalic, nontraumatic Eyes: Clear conjunctiva ENT: Oropharynx normal, ears normal, nose normal Neck: Supple, nontender Chest and respiratory: Airway patent, no respiratory distress, no accessory muscle use Heart: Regular rate/rhythm Abdomen: mild tenderness right flank no bruises, no rash Vascular: Normal peripheral pulses, normal capillary refill. Musculoskeletal: Normal range of motion, nontender back Neurologic: Alert and oriented ?3, CELL CHANGER is normal as tested, no gross motor deficit Course Vital Signs Vital signs: Vital Signs Temperature 36.4 C 10/11/23 18:29 Pulse Rate 93 10/11/23 18:29 Respiratory Rate 16 10/11/23 18:29 Blood Pressure 126/90 10/11/23 18:29 Pulse Oximetry 99 10/11/23 18:29 Oxygen Delivery Room Air 10/11/23 18:29 Temperature 36.4 C 10/11/23 18:29 Pulse Rate 93 10/11/23 18:29 Respiratory Rate 16 10/11/23 18:29 Blood Pressure 126/90 10/11/23 18:29 Pulse Oximetry 99 10/11/23 18:29 Oxygen Delivery Room Air 10/11/23 18:29 MDM - Female Genitourinary MDM Narrative Medical decision making narrative: pain during urination, possible vaginal discharge. Urinalysis came back positive for infection Chlamydia and gonorrhea ordered, the result will be in the next 48 hours. Patient was notified to get a phone call of the chlamydia or gonorrhea are positive. Discharged on Cipro and Pyridium Discharge the pt was discharged to home.the pt,s condition upon discharge was fair,education was provided to the pt in reference to the final impression,discharge study results,treatment,prognosis and need for follow up . Differential Diagnosis Differential diagnosis: Likely urinary tract infection Lab Data Attestation: I reviewed the patient's lab results. Labs: Lab Results 10/11/23 10/11/23 Range/Units 18:38 18:55 Urin
[2023-10-11 18:53] LABS: Add Urine Microscopic? YES; Appearance Urine Clear (Clear); Bilirubin Urine Negative (Negative); Blood Urine 3+ (Negative); Color Urine Light Yellow (Yellow); Glucose Urine UA Negative (Negative); Ketones Urine Negative (Negative); Leukocyte Esterase Ur 1+ (Negative); Nitrate Urine Negative (Negative); Protein Urine Trace (Negative); Specific Grav Ur <= 1.005 (1.010-1.020); Urobilinogen Urine 0.2 mg/dL (0.2-1.0); pH Urine 6.5 (5.0-8.0)
[2023-10-11 19:02] LABS: Amorphous Sediment Urine Few; Bacteria Urine 1+ /hpf; Squamous Epithelial Cell Urine Few /hpf (Few); WBC Clumps Urine Present /hpf; WBC Urine 21-30 /hpf (0-3)
[2023-10-11 19:42] VITALS: BP 108/52; PULSE 83; RESP 20; TEMP 37.1; O2SAT 95
[2023-10-14 08:19] LABS: Chlamydia trachomatis NOT DETECTED (NOT DETECTE); Neisseria gonorrhoeae PCR NOT DETECTED (NOT DETECTE)
--- NOTE | 2023-10-16 14:10 | PC.NURSE ---
urine culture reviewed. started on cipro. no need for change noted.
== END 2023-10-11 19:42 | disposition home or self-care (01) ==
PROVIDERS: Emergency Provider Emergency Medicine
DX: N39.0 Urinary tract infection, site not specified (principal); F17.210 Nicotine dependence, cigarettes, uncomplicated
CPT/HCPCS: 81001; 87077; 87086; 87088; 87186; 87491; 87591; 99283

== ENCOUNTER 2023-10-12 12:46 | Emergency (ER) | payer OTHER, SELFPAY ==
[2023-10-12] VITALS (12 sets, daily range): BP systolic 104–138; BP diastolic 67–87; PULSE 88–108; RESP 14–21; TEMP 36.6–37.1; O2SAT 96–100
--- NOTE | ~2023-10-12 | CT_ITS ---
EXAMINATION: CT abdomen pelvis wo con DATE: 10/12/2023 13:47 INDICATION: Right flank pain. TECHNIQUE: Computed tomography (CT) of the abdomen and pelvis was performed without intravenous contr ast. Automated exposure control and iterative reconstruction technique were employed. The dose-length product was 275.06 mGy-cm. COMPARISON: CT abdomen and pelvis 09/28/2023 FINDINGS: The visualized portions of the lung bases are clear without pneumonia or pleural effusion. The heart size is normal. No pericardial effusion. The liver is normal. There are changes of cholecys tectomy. The spleen, pancreas, adrenal glands, and left kidney are normal. There is a 4 mm stone in r ight kidney. There are no dilated loops of bowel. The appendix is not visualized. There are no pathol ogically enlarged lymph nodes. There is no free intraperitoneal fluid. There is mild thoracic and lum bar spondylosis. IMPRESSION: 1. 4 mm nonobstructing right kidney stone. Reviewed, dictated and finalized at location A.
--- NOTE | ~2023-10-12 | CT_ITS ---
CT brain wo con Ordering provider: Ellen Catherine PA-C History: 43 years Female with . syncope, [place] . Comparison: None. Technique: CT of the head without contrast. Radiation reduction technique utilized. The dose-length product was 605.33 mGy-cm. FINDINGS: BRAIN PARENCHYMA AND CSF SPACES: No midline shift, mass effect or hemorrhage. The brain parenchyma a nd CSF spaces are otherwise normal. VISUALIZED PARANASAL SINUSES: Well aerated. MASTOIDS: Well aerated. BONES: The bones appear intact. SOFT TISSUES: Visualized nasopharynx is normal. Superficial soft tissues are normal. IMPRESSION: No acute intracranial findings. Reviewed, dictated and finalized at location A.
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
--- NOTE | 2023-10-12 13:28 | ECG_ITS ---
Test Date: 2023-10-12 13:36:24 Measurements Intervals [place] Rate: 99 P: 62 [place]: 114 QRS: 72 QRSD: 98 T: 63 QT: 328 QTc: 422 Interpretive Statements SINUS RHYTHM WITH SHORT [place] INTERVAL POSSIBLE LEFT ATRIAL ENLARGEMENT [-0.1mV P WAVE IN V1/V2] No previous ECG available for comparison Electronically Signed On 10-13-2023 10:14:12 CDT by Josephine Duong M.D.
[2023-10-12 13:40] LABS: Basophils Percent Auto 0.3 % (0.2-1.2); Eosinophils Percent Auto 0.2 % (0-4.4); Hematocrit 38.6 % (37.0-47.0); Hemoglobin 12.5 g/dL (12.0-15.0); Immature Granulocyte Absolute 0.06 K/mm3 (0.00-0.031); Immature Granulocyte Percent A 0.4 % (0-0.5); Lymphocytes Absolute Auto 0.79 K/mm3 (0.9-3.2); Lymphocytes Percent Auto 5.8 % (18.3-44.2); Mean Corpuscular HGB Conc 32.4 g/dl (32-36); Mean Corpuscular Hemoglobin 30.7 pg (26-34); Mean Corpuscular Volume 94.8 fl (80-100); Mean Platelet Volume 8.9 fl (7.4-10.4); Monocytes Percent Auto 7.3 % (2.6-8.5); Neutrophils Absolute Auto 11.7 K/mm3 (1.3-6.7); Platelet Count Result 341 k/mm3 (150-375); Red Blood Count 4.07 M/mm3 (4.2-5.4); Red Cell Distribution Width 12.5 % (11.5-14.5); White Blood Count 13.6 K/mm3 (4.5-10.0)
[2023-10-12 14:00] LABS: Alanine Aminotransferase 55 U/L (6-35); Albumin Level 4.1 g/dL (3.5-5.1); Alkaline Phosphatase 90 U/L (38-126); Anion Gap 6 mmol/L (4-12); Aspartate Amino Transferase 72 U/L (14-36); Bilirubin,Total 0.5 mg/dL (0.2-1.3); Blood Urea Nitrogen 12 mg/dL (7-17); Carbon Dioxide 30 mmol/L (22-30); Chloride 100 mmol/L (98-107); Estimated CRCL calculation 54 ml/min; Estimated Glomerular Filt Rate > 60; Glucose 100 mg/dL (65-110); Lipase 183 U/L (23-300); Potassium 4.3 mmol/L (3.4-5.0); Sodium 136 mmol/L (137-145)
[2023-10-12 15:14] LABS: BEDSIDEPREGUCG Negative
[2023-10-12 15:32] LABS: Bacteria Urine None Seen /hpf; Need Manual Microscopic Reviewed; Non Pathogenic Casts 0-2; Squamous Epithelial Cell Urine Occasional /hpf (Few); WBC Urine 0-5 /hpf (0-3)
[2023-10-12 15:33] LABS: Add Urine Microscopic? YES; Appearance Urine Clear (Clear); Bilirubin Urine 2+ (Negative); Blood Urine Trace (Negative); Color Urine Orange (Yellow); Glucose Urine UA Negative (Negative); Ketones Urine Negative (Negative); Leukocyte Esterase Ur 2+ LEU/UL (Negative); Nitrate Urine Positive (Negative); Protein Urine 2+ mg/dL (Negative); Specific Grav Ur 1.017 (1.001-1.035); pH Urine 6.5 (5.0-9.0)
[2023-10-12] MEDS: SODIUM CHLORIDE 0.9% IV 1,000 ML 999 ML IV CONT (15:57)
[2023-10-12] MEDS: MORPHINE SULFATE (*CRX) 4 MG/ML INJ IV PUSH (15:57)
--- NOTE | 2023-10-12 16:49 | PC.NURSE ---
called laboratory to add a d dimer to labs previously sent down
[2023-10-12 17:44] LABS: Influenza A QL RT-PCR Negative (Negative); Influenza B QL RT-PCR Negative (Negative); RSV RNA, RT-PCR Negative (Negative); SARS-CoV-2 RNA PCR Negative (Negative)
[2023-10-12 20:31] LABS: D Dimer 0.59 ug/mL (<0.48)
== END 2023-10-12 19:35 | disposition home or self-care (01) ==
PROVIDERS: Physician Assistant; Emergency Provider Student in an Organized Health Care Education/Training Program
DX: N12 Tubulo-interstitial nephritis, not specified as acute or chronic (principal); D72.829 Elevated white blood cell count, unspecified; R74.01 Elevation of levels of liver transaminase levels; R42 Dizziness and giddiness; R10.9 Unspecified abdominal pain; R55 Syncope and collapse; R94.31 Abnormal electrocardiogram [ECG] [EKG]; F17.210 Nicotine dependence, cigarettes, uncomplicated
CPT/HCPCS: 36415; 70450; 74176; 80053; 81001; 81025; 83690; 85025; 85380; 87637; 93005; 96361; 96374; 99284; J2270; J7030

== ENCOUNTER 2023-10-20 04:28 | Emergency (ER) | payer OTHER, SELFPAY ==
--- NOTE | ~2023-10-20 | CT_ITS ---
CT of the Abdomen and Pelvis: Indication: Abdominal pain Technique: 2.5 mm axial scans were obtained through the abdomen and pelvis following intravenous adm inistration of 100 cc of Omnipaque 350. Dose reduction technique was used on this scan by utilizing a utomated exposure control and iterative reconstruction technique. The dose-length product (DLP) was 3 99.80 mGy-cm. COMPARISON: 10/12/2023 Findings: Scans through the lung bases are unremarkable. Mild intrahepatic biliary dilatation is probably related to prior cholecystectomy. The spleen, pancre as, adrenals and left kidney are within normal limits. There is a 4 mm right UVJ stone, with moderate right hydroureteronephrosis to this level. No evidence of aortic aneurysm. No lymphadenopathy. No bowel obstruction or bowel wall thickening. There is no evidence to suggest acute appendicitis. Images through the pelvis were performed. Urinary bladder otherwise unremarkable. No adnexal mass helena dent. Probable trace free fluid in the pelvis. Impression: 4 mm right UVJ stone, with moderate right hydroureteronephrosis. Reviewed, dictated and finalized at location . Impression: 4 mm right UVJ stone, with moderate right hydroureteronephrosis.
[2023-10-20 04:30] VITALS: BP 151/93; PULSE 74; RESP 18; TEMP 36.9; O2SAT 100
--- NOTE | 2023-10-20 04:35 | ED.ABDPAIN ---
HPI - Abdominal Pain General Chief Complaint: Abdominal Pain <Cheyenne Ornelas MD - Last Filed: 10/20/23 06:57> Stated Complaint: abdominal pain <Cheyenne Ornelas MD - Last Filed: 10/20/23 06:57> Time Seen by Provider: 10/20/23 04:35 <Cheyenne Ornelas MD - Last Filed: 10/20/23 06:57> Source: patient <Cheyenne Ornelas MD - Last Filed: 10/20/23 06:57> Mode of arrival: ambulatory <Cheyenne Ornelas MD - Last Filed: 10/20/23 06:57> Limitations: no limitations <Cheyenne Ornelas MD - Last Filed: 10/20/23 06:57> History of Present Illness HPI narrative: 43 years old white female came with right abdominal pain started 7 hours arrival associated with nausea and vomiting once. Pain radiating to right lower back, aching, no aggravating or relieving factors. History of cholecystectomy and section. <Cheyenne Ornelas MD - Last Filed: 10/20/23 06:57> Related Data Allergies/Adverse Reactions: Allergies Allergy/AdvReac Type Severity Reaction Status Date / Time Penicillins Allergy Severe Difficulty Verified 10/11/23 18:33 Swallowing codeine AdvReac Swelling Verified 10/11/23 18:33 NSAIDS (Non-Steroidal AdvReac Swelling Verified 10/11/23 18:33 Anti-Inflamma of Lip/Tongue/Throat <Cheyenne Ornelas MD - Last Filed: 10/20/23 06:57> Review of Systems Review of Systems: All systems reviewed & are unremarkable except as noted in HPI and below <Cheyenne Ornelas MD - Last Filed: 10/20/23 06:57> PMFSH Past Medical History Medical History: Medical History Drug abuse Tooth decay <Cheyenne Ornelas MD - Last Filed: 10/20/23 06:57> Surgical History Surgical History: Surgical History No significant past surgical history <MD Yamilet Gilbert Last Filed: 10/20/23 06:57> Family History Family History: Family History Father No problems noted. Father Lung cancer Mother Heart disease <Cheyenne Ornelas MD - Last Filed: 10/20/23 06:57> Social History Social History: Social History Years smoked: 20 Smoking status: Current every day smoker Tobacco type: cigarettes Second hand tobacco smoke exposure: Yes Alcohol intake: former Substance use: former Substance use type: painkillers Gender identity (if verbalized by the patient): Female Spiritual care concerns: No <Cheyenne Ornelas MD - Last Filed: 10/20/23 06:57> Exam Narrative: General appearance: Well-developed, well-nourished Skin: Normal color Head: Normocephalic, nontraumatic Eyes: Clear conjunctiva ENT: Oropharynx normal, ears normal, nose normal Neck: Supple, nontender Chest and respiratory: Airway patent, no respiratory distress, no accessory muscle use Heart: Regular rate/rhythm Abdomen: Soft, Right abdominal tenderness, no guarding or rebound, right flank tenderness, no organomegaly, quiet bowel sounds Vascular: Normal peripheral pulses, normal capillary refill. 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
[2023-10-20] MEDS: ONDANSETRON INJ 4 MG/2 ML VIAL 8 MG IV PUSH (04:38)
[2023-10-20] MEDS: HYDROmorphone HCL INJ (*CRX) 2 MG/ML VIAL 0.5 MG IV PUSH ×3 (04:39→07:06)
[2023-10-20] MEDS: SODIUM CHLORIDE 0.9% IV 1,000 ML 999 ML IV CONT (04:44)
[2023-10-20 04:57] LABS: Basophils Absolute Auto 0.06 K/mm3 (0.00-0.10); Basophils Percent Auto 0.5 % (0.0-1.0); Eosinophils Absolute Auto 0.05 K/mm3 (0.02-0.50); Eosinophils Percent Auto 0.4 % (1.0-6.0); Hematocrit 34.9 % (35.0-49.0); Hemoglobin 11.3 g/dL (12.0-15.0); Immature Granulocyte Absolute 0.05 K/mm3 (0.00-0.00); Immature Granulocyte Percent A 0.4 % (0.0-0.0); Lymphocytes Absolute Auto 1.75 K/mm3 (1.10-4.50); Lymphocytes Percent Auto 15.4 % (18.0-42.0); Mean Corpuscular HGB Conc 32.4 g/dL (32-36); Mean Corpuscular Hemoglobin 30.5 pg (27.0-31.0); Mean Corpuscular Volume 94.3 fL (78.0-102.0); Mean Platelet Volume 8.6 fl (9.2-11.8); Monocytes Absolute Auto 0.63 K/mm3 (0.10-0.90); Monocytes Percent Auto 5.5 % (2.0-11.0); Neutrophils Absolute Auto 8.83 K/mm3 (1.70-7.20); Neutrophils Percent Auto 77.8 % (50.0-70.0); Platelet Count Result 430 K/mm3 (150-420); Red Cell Distribution Width 12.4 % (11.6-14.4); White Blood Count 11.4 K/mm3 (4.8-10.8)
--- NOTE | 2023-10-20 05:00 | PC.NURSE ---
Pt states she was at [facility] about 5 days ago and had a kidney infection and is currently on an antibx. Pt straight cathed per order to obtain urine and noted orange colored. Pt states she is taking AZO.
[2023-10-20 05:06] LABS: Pregnancy On Board Control Positive; Urine Pregnancy Test Negative
[2023-10-20 05:07] LABS: Appearance Urine Clear (Clear); Bilirubin Urine Negative (Negative); Blood Urine 3+ (Negative); Glucose Urine UA 1+ (Negative); Ketones Urine 1+ (Negative); Leukocyte Esterase Ur Trace LEU/UL (Negative); Nitrate Urine Positive (Negative); Protein Urine 3+ (Negative); Specific Grav Ur 1.025 (1.010-1.020); Urobilinogen Urine >=8.0 mg/dL (0.2-1.0)
[2023-10-20 05:13] LABS: Alanine Aminotransferase 49 U/L (14-59); Albumin Level 3.2 g/dL (3.4-5.0); Alkaline Phosphatase 165 U/L (46-116); Anion Gap 8 mmol/L (4-12); Aspartate Amino Transferase 17 U/L (15-37); Bilirubin,Total 0.4 mg/dL (0.00-1.00); Blood Urea Nitrogen 15 mg/dL (7-18); Calcium 8.9 mg/dL (8.5-10.1); Carbon Dioxide 28 mmol/L (21-32); Chloride 98 mmol/L (98-108); Estimated CRCL calculation 39 ml/min; Estimated Glomerular Filt Rate 48; Glucose 110 mg/dL (70-99); Lipase 28 U/L (16-77); Osmolality Calculated 279 mOsm/kg (285-295); Potassium 3.7 mmol/L (3.5-5.1); Sodium 134 mmol/L (136-145); Total Protein 6.7 g/dL (6.4-8.2)
[2023-10-20 05:14] LABS: Add Urine Microscopic? YES; RBC Urine 21-50 /hpf (0-2); WBC Urine None seen /hpf (0-3)
[2023-10-20 05:15] LABS: Bacteria Urine Trace /hpf; Color Urine Dark Orange (Yellow); Squamous Epithelial Cell Urine Few /hpf (Few)
--- NOTE | 2023-10-20 05:37 | PC.NURSE ---
Pt writhing in pain after returning from CT. She states her pain is worsening again. Pts. spouse and mother in law at bedside. Pts mother in law states if she can't get anything else for pain she will leave and go to [place]. ERP contacted about pt pain and family concerns. Order obtained from ERP for [facility]. Pt spouse and mother in law left room.
[2023-10-20 05:44] VITALS: BP 133/76; PULSE 87; RESP 20; O2SAT 97
[2023-10-20] MEDS: MEROPENEM 1 GM/NS 100 ML 1 GM/100 ML BAG IVPB (05:58)
--- NOTE | 2023-10-20 06:11 | PC.NURSE ---
CT report back, spoke w/ pt and spouse about findings and need for transfer to urology. Pt wants to transfer to [facility].
--- NOTE | 2023-10-20 06:27 | PC.NURSE ---
Pts mother in room w/ pt and spouse, explained in depth about pts need for transfer to urology and placement at other facilities due to no bed availability. Explained in depth about how procedure for transfers work. Explained that some places are not accepting and we will keep trying until a bed is available at another facility for urology care. After explanation pt and mother and spouse stated understanding. Pt voices that she doesn't want to leave until she can get to a facility with a urologist.
[2023-10-20] MEDS: TAMSULOSIN HCL 0.4 MG CAPSULE PO (07:03)
[2023-10-20 07:09] VITALS: BP 132/80; PULSE 85; RESP 20; O2SAT 95
--- NOTE | 2023-10-20 07:09 | PC.NURSE ---
Pt resting at this time, lights dimmed, report given to YSABEL Flores. Awaiting call back from [facility] urology.
[2023-10-20 07:30] VITALS: BP 90/56; PULSE 72; RESP 16; O2SAT 96
--- NOTE | 2023-10-20 08:03 | PC.NURSE ---
pt is resting on stretcher with family at bedside. pt has been accepted to [facility] by dr alva. pt is awaiting room assignment at this time. nad noted. will continue to monitor.
[2023-10-20 08:30] VITALS: BP 92/56; PULSE 76; RESP 18; O2SAT 97
[2023-10-20] MEDS: ONDANSETRON INJ 4 MG/2 ML VIAL IV PUSH (08:50)
--- NOTE | 2023-10-20 08:51 | PC.NURSE ---
pt up to rr without difficulty, reports nausea, denies pain at this time. pt is currently talking with sig other on the phone. medication was administered for nausea. pt continues to await room assignment at [facility]. will continue to monitor.
[2023-10-20 10:11] VITALS: BP 97/69; PULSE 78; RESP 18; O2SAT 100
--- NOTE | 2023-10-20 10:11 | PC.NURSE ---
family has returned, pt continues to await room assignment for transfer. will continue to monitor.
--- NOTE | 2023-10-22 12:36 | PC.NURSE ---
urine culture reviewed, no growth noted.
== END 2023-10-20 10:37 | disposition short-term general hospital (02) ==
PROVIDERS: Emergency Provider Emergency Medicine
DX: N13.2 Hydronephrosis with renal and ureteral calculous obstruction (principal); N39.0 Urinary tract infection, site not specified; F17.210 Nicotine dependence, cigarettes, uncomplicated
CPT/HCPCS: 36415; 74177; 80053; 81001; 81025; 83690; 85025; 87086; 96361; 96365; 96375; 96376; 99285; A9270; J1170; J2185; J2405; J7030; Q9967

== ENCOUNTER 2023-12-26 14:49 | Emergency (ER) | payer OTHER, SELFPAY ==
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
[2023-12-26 14:49] VITALS: BP 107/81; PULSE 88; RESP 18; TEMP 36.6; O2SAT 94
[2023-12-26] MEDS: ACETAMINOPHEN 500 MG TABLET 1000 MG PO (15:20)
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
[2023-12-26 15:59] VITALS: BP 129/83; PULSE 76; RESP 18; O2SAT 100
== END 2023-12-26 16:00 | disposition home or self-care (01) ==
PROVIDERS: Emergency Provider Emergency Medicine
DX: S22.42XA Multiple fractures of ribs, left side, initial encounter for closed fracture (principal); F17.210 Nicotine dependence, cigarettes, uncomplicated; Y09 Assault by unspecified means
CPT/HCPCS: 71100; 73130; 99284

== ENCOUNTER 2024-01-06 15:24 | Emergency (ER) | payer OTHER, SELFPAY ==
--- NOTE | ~2024-01-06 | CT_ITS ---
History: Altered mental status PROCEDURE: CT head without contrast. COMPARISON: None TECHNIQUE: Axial imaging of the head performed from the skull base to the vertex without IV contrast. Sagittal a nd coronal reformations obtained. DLP: 529 mGy-cm FINDINGS: The ventricles are normal in size, shape and position. There is no mass, mass effect or midline shift. There is no abnormal extra-axial fluid collection or intracranial hemorrhage. Visualized paranasal sinuses are clear. The mastoid air cells are well aerated. No acute displaced fractures within the overlying cranium. Impression: No acute intracranial hemorrhage or suspicious mass effect. Reviewed, dictated and finalized at location A. GE DOOR HANGER Impression: No acute intracranial hemorrhage or suspicious mass effect.
[2024-01-06 15:26] VITALS: BP 149/94; PULSE 86; RESP 18; TEMP 36.4; O2SAT 100
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
--- NOTE | 2024-01-06 17:03 | ECG_ITS ---
Test Date: 2024-01-06 17:17:36 Measurements Intervals [place] Rate: 76 P: 89 CO: 124 QRS: 83 QRSD: 98 T: 81 QT: 379 QTc: 428 Interpretive Statements SINUS RHYTHM POSSIBLE RIGHT ATRIAL ENLARGEMENT MINIMAL Q WAVES- INF/LAT LEADS BASELINE ARTIFACT- I, III, AVR, AVL, V2 BORDERLINE ECG Compared to ECG 10/12/2023 13:36:24 NO SIGNIFICANT CHANGE Electronically Signed On 01-06-2024 18:27:25 SET STAFF FITTER by Sonny Velasco D.O.
--- NOTE | 2024-01-06 17:13 | PC.NURSE ---
covid culture sent to lab
[2024-01-06 17:27] LABS: Basophils Absolute Auto 0.05 K/mm3 (0.00-0.10); Eosinophils Absolute Auto 0.08 K/mm3 (0.02-0.50); Eosinophils Percent Auto 1.5 % (1.0-6.0); Hematocrit 36.6 % (35.0-49.0); Hemoglobin 11.9 g/dL (12.0-15.0); Immature Granulocyte Absolute 0.02 K/mm3 (0.00-0.00); Immature Granulocyte Percent A 0.4 % (0.0-0.0); Lymphocytes Absolute Auto 2.01 K/mm3 (1.10-4.50); Lymphocytes Percent Auto 38.5 % (18.0-42.0); Mean Corpuscular HGB Conc 32.5 g/dL (32-36); Mean Corpuscular Hemoglobin 30.1 pg (27.0-31.0); Mean Corpuscular Volume 92.7 fL (78.0-102.0); Mean Platelet Volume 8.9 fl (9.2-11.8); Monocytes Absolute Auto 0.35 K/mm3 (0.10-0.90); Monocytes Percent Auto 6.7 % (2.0-11.0); Neutrophils Absolute Auto 2.71 K/mm3 (1.70-7.20); Neutrophils Percent Auto 51.9 % (50.0-70.0); Platelet Count Result 342 K/mm3 (150-420); Red Blood Count 3.95 M/mm3 (4.20-5.40); Red Cell Distribution Width 12.2 % (11.6-14.4); White Blood Count 5.2 K/mm3 (4.8-10.8)
[2024-01-06 17:28] LABS: Appearance Urine Clear (Clear); Bilirubin Urine Negative (Negative); Blood Urine Trace-intact (Negative); Color Urine Light Yellow (Yellow); Glucose Urine UA Negative (Negative); Ketones Urine Negative (Negative); Leukocyte Esterase Ur Negative LEU/UL (Negative); Nitrate Urine Negative (Negative); Protein Urine Negative (Negative); Specific Grav Ur >= 1.030 (1.010-1.020); Urobilinogen Urine 0.2 mg/dL (0.2-1.0)
[2024-01-06 17:33] LABS: Add Urine Microscopic? YES; Bacteria Urine Trace /hpf; Calcium Oxalate Crystals Urine Present /hpf; RBC Urine 0-2 /hpf (0-2); Squamous Epithelial Cell Urine Few /hpf (Few); WBC Urine 0-3 /hpf (0-3)
[2024-01-06 17:34] LABS: Pregnancy On Board Control Positive; Urine Pregnancy Test Negative
[2024-01-06 17:42] LABS: Amphetamine Screen Urine Positive (Negative); Barbiturate Screen Urine Negative (Negative); Benzodiazepines Screen Urine Negative (Negative); Cannabinoid Screen Urine Negative (Negative); Cocaine Screen Urine Negative (Negative); Methadone Screen Urine Negative (Negative); Opiate Screen Urine Negative (Negative); Phencyclidine Screen Urine Negative (Negative)
[2024-01-06 17:51] LABS: Influenza A QL RT-PCR Negative (Negative); Influenza B QL RT-PCR Negative (Negative); RSV RNA, RT-PCR Negative (Negative); SARS-CoV-2 RNA PCR Negative (Negative)
[2024-01-06 17:51] LABS: Acetaminophen 0 ug/mL (10-30); Alanine Aminotransferase 31 U/L (14-59); Albumin Level 3.7 g/dL (3.4-5.0); Alkaline Phosphatase 81 U/L (46-116); Anion Gap 6 mmol/L (4-12); Aspartate Amino Transferase 15 U/L (15-37); Bilirubin,Total 0.3 mg/dL (0.00-1.00); Blood Urea Nitrogen 19 mg/dL (7-18); Calcium 8.9 mg/dL (8.5-10.1); Carbon Dioxide 31 mmol/L (21-32); Chloride 103 mmol/L (98-108); Estimated CRCL calculation 43 ml/min; Estimated Glomerular Filt Rate 52; Ethanol < 3 mg/dL (0-6); Glucose 95 mg/dL (70-99); Osmolality Calculated 292 mOsm/kg (285-295); Potassium 3.9 mmol/L (3.5-5.1); Sodium 140 mmol/L (136-145); Thyroid Stimulating Hormone 3.39 uIU/mL (0.36-3.74); Total Protein 6.9 g/dL (6.4-8.2)
--- NOTE | 2024-01-06 18:55 | PC.NURSE ---
[id number] PAP[facility] WORK FAXED TO [facility]
--- NOTE | 2024-01-06 19:05 | PC.NURSE ---
patient report received from YSABEL Hilario. patient awake and alert, standing in ED 5 talking to her mother who is sitting in corner of room.
--- NOTE | 2024-01-06 19:46 | PC.NURSE ---
[facility] request from [facility]. [phone]. waiting to hear back from [place] [facility] now.
[2024-01-06 19:53] VITALS: BP 158/98; PULSE 92; RESP 18; TEMP 36.6; O2SAT 98
--- NOTE | 2024-01-06 20:17 | PC.NURSE ---
patient son now at bedside. patient calm, sitting upright on stretcher speaking with him. RN awaiting hearing back from transfer facilities.
--- NOTE | 2024-01-06 21:29 | PC.NURSE ---
patient resting in ED 5 on cot. RN monitoring. patient denies SI/HI. update provided per RN. patient insistent on requesting to smoke a cigarette. patient education provided by RN including facility being a smoke-free campus.
[2024-01-06 22:35] VITALS: BP 141/92; PULSE 84; RESP 18; TEMP 36.6; O2SAT 100
--- NOTE | 2024-01-06 22:35 | PC.NURSE ---
patient update provided including acceptance to [facility] however unable to arrive until 10 AM tomorrow. Patient states she wishes to leave and not stay to wait for transfer to facility. ERP notified and down to speak with patient in attempt to stay.
--- NOTE | 2024-01-06 22:51 | PC.NURSE ---
patient awake, alert and continues to deny SI/HI. again stating she wishes to leave as her transfer bed is not readily available, she is no longer wishing to go inpatient. patient education provided including to return if she feels the need with details explained that patient will no longer have the bed at [facility] if she choses to leave. RN spoke with patient son, Gaetano regarding patient decision to sign out AMA. patient awake and alert with VSS at time of departure.
== END 2024-01-06 22:52 | disposition left against medical advice (07) ==
PROVIDERS: Emergency Provider Internal Medicine Critical Care Medicine
DX: F20.9 Schizophrenia, unspecified (principal); F17.210 Nicotine dependence, cigarettes, uncomplicated; Z20.822 Contact with and (suspected) exposure to COVID-19
CPT/HCPCS: 36415; 70450; 80053; 80143; 80179; 80307; 81001; 81025; 82077; 84443; 85025; 87637; 93005; 99284

== ENCOUNTER 2024-01-07 13:23 | Emergency (ER) | payer OTHER, SELFPAY ==
[2024-01-07 13:43] VITALS: BP 141/92; PULSE 95; RESP 20; TEMP 36.6; O2SAT 98
--- NOTE | 2024-01-07 13:44 | ECG_ITS ---
Test Date: 2024-01-07 13:54:47 Measurements Intervals [place] Rate: 83 P: 79 SD: 108 QRS: 84 QRSD: 95 T: 74 QT: 349 QTc: 411 Interpretive Statements SINUS RHYTHM WITH SHORT SD INTERVAL MINIMAL Q WAVES- INF/LAT LEADS BORDERLINE ECG Compared to ECG 01/06/2024 17:17:36 Short SD interval now present Electronically Signed On 01-07-2024 14:05:50 PUBLIC INFORMATION DIRECTOR by Sonny Velasco D.O.
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
[2024-01-07 13:57] LABS: Basophils Absolute Auto 0.04 K/mm3 (0.00-0.10); Basophils Percent Auto 0.7 % (0.0-1.0); Eosinophils Absolute Auto 0.06 K/mm3 (0.02-0.50); Eosinophils Percent Auto 1.1 % (1.0-6.0); Hematocrit 36.1 % (35.0-49.0); Hemoglobin 11.9 g/dL (12.0-15.0); Immature Granulocyte Absolute 0.01 K/mm3 (0.00-0.00); Immature Granulocyte Percent A 0.2 % (0.0-0.0); Lymphocytes Absolute Auto 1.71 K/mm3 (1.10-4.50); Lymphocytes Percent Auto 30.5 % (18.0-42.0); Mean Corpuscular Hemoglobin 30.5 pg (27.0-31.0); Mean Corpuscular Volume 92.6 fL (78.0-102.0); Mean Platelet Volume 8.9 fl (9.2-11.8); Monocytes Absolute Auto 0.38 K/mm3 (0.10-0.90); Monocytes Percent Auto 6.8 % (2.0-11.0); Neutrophils Percent Auto 60.7 % (50.0-70.0); Platelet Count Result 361 K/mm3 (150-420); Red Cell Distribution Width 12.5 % (11.6-14.4); White Blood Count 5.6 K/mm3 (4.8-10.8)
[2024-01-07 14:02] LABS: Cannabinoid Screen Urine Negative (Negative); Methadone Screen Urine Negative (Negative); Opiate Screen Urine Negative (Negative); Phencyclidine Screen Urine Negative (Negative)
[2024-01-07 14:23] LABS: Alanine Aminotransferase 22 U/L (14-59); Albumin Level 3.7 g/dL (3.4-5.0); Alkaline Phosphatase 80 U/L (46-116); Anion Gap 6 mmol/L (4-12); Aspartate Amino Transferase 14 U/L (15-37); Bilirubin,Total 0.2 mg/dL (0.00-1.00); Blood Urea Nitrogen 21 mg/dL (7-18); Carbon Dioxide 30 mmol/L (21-32); Chloride 106 mmol/L (98-108); Estimated CRCL calculation 35 ml/min; Estimated Glomerular Filt Rate 42; Glucose 86 mg/dL (70-99); Osmolality Calculated 296 mOsm/kg (285-295); Potassium 3.9 mmol/L (3.5-5.1); Sodium 142 mmol/L (136-145); Total Protein 6.9 g/dL (6.4-8.2)
[2024-01-07 14:26] LABS: Acetaminophen < 2 ug/mL (10-30); Thyroid Stimulating Hormone Reflex 3.93 u/IU/mL (0.36-3.74)
[2024-01-07 14:27] LABS: Free T4 Free Thyroxine Reflex 0.76 ng/dL (0.76-1.46)
[2024-01-07 14:36] LABS: Amphetamine Screen Urine Positive (Negative); Barbiturate Screen Urine Negative (Negative); Benzodiazepines Screen Urine Negative (Negative); Cocaine Screen Urine Negative (Negative)
[2024-01-07 14:42] LABS: Ethanol < 3 mg/dL (0-6)
[2024-01-07 14:47] LABS: Influenza A QL RT-PCR Negative (Negative); Influenza B QL RT-PCR Negative (Negative); RSV RNA, RT-PCR Negative (Negative); SARS-CoV-2 RNA PCR Negative (Negative)
[2024-01-07 17:30] VITALS: BP 149/104; PULSE 105; RESP 20; TEMP 36.6; O2SAT 99
--- NOTE | 2024-01-07 18:31 | PC.NURSE ---
4010 [facility] call and informed pt had returned for admission to [facility] will contact [facility] to see if bed is still available nurse requested eval paper work or repeat eval
--- NOTE | 2024-01-07 18:34 | PC.NURSE ---
1524 call out to [facility] to see if bed was still available they were still [facility]
--- NOTE | 2024-01-07 18:35 | PC.NURSE ---
1714 paper work refaxed to [facility] and they said they would get back to us
--- NOTE | 2024-01-07 18:36 | PC.NURSE ---
1731 margarita cavanaugh called and stated they were still waiting [facility] pt [facility]
--- NOTE | 2024-01-07 18:37 | PC.NURSE ---
1828 margarita cavanaugh called from after hours states she is on till midnight and states rico is reviewing chart at this time and she will call back shortly
--- NOTE | 2024-01-07 19:02 | PC.NURSE ---
Pt resting comfortably. No concerns at this time.
[2024-01-07 20:11] VITALS: BP 143/92; PULSE 87; RESP 18; TEMP 36.2; O2SAT 99
--- NOTE | 2024-01-07 20:11 | PC.NURSE ---
ERP aware of pt's blood pressure and temp. No knew orders.
--- NOTE | 2024-01-07 20:15 | PC.NURSE ---
Called dispatch to request a truck for patient transfer at 2008. I was told by dispatch that Aiden from [facility] told the lady at [facility] that we have known that this lady was going to be transferred since 1500 today and that since it is several hours later, we have to call and request permission to have them transported. I said, Well, we could call for a transfer until the patient was accepted at [facility]. And isn't that what I am doing when I call you? Requesting a transfer? She said, I don't know.. I'm just the middle man. I hung up with dispatch and called the [facility] sydnee. Leobardo answered the phone. I told Leobardo what dispatch had told me. Leobardo was not aware of any such directive. He said that they could take our patient and that I should just call dispatch back and have them send out the page. I called dispatch back at 2012. Page was sent out at 2013.
== END 2024-01-07 21:25 ==
PROVIDERS: Emergency Provider Emergency Medicine
DX: F19.10 Other psychoactive substance abuse, uncomplicated (principal); F29 Unspecified psychosis not due to a substance or known physiological condition; F17.210 Nicotine dependence, cigarettes, uncomplicated; Z20.822 Contact with and (suspected) exposure to COVID-19
CPT/HCPCS: 36415; 80053; 80143; 80307; 82077; 84439; 84443; 85025; 87637; 93005; 99285

== ENCOUNTER 2024-02-09 19:14 | Emergency (ER) | payer OTHER, SELFPAY ==
--- NOTE | ~2024-02-09 | XR_ITS ---
EXAMINATION: XR chest 1V portable DATE: 02/09/2024 19:29 INDICATION: Chest pain. TECHNIQUE: A single frontal view of the chest was obtained on 2 radiographs. COMPARISON: Left rib radiographs 12/26/2023 FINDINGS: There is no pneumonia, pleural effusion, or pneumothorax. The heart size is normal. IMPRESSION: 1. No acute cardiopulmonary disease. Reviewed, dictated and finalized at location A. [facility] DEPUTY
[2024-02-09 19:14] VITALS: BP 133/99; PULSE 91; RESP 18; TEMP 36.9; O2SAT 100
--- NOTE | 2024-02-09 19:19 | ECG_ITS ---
Test Date: 2024-02-09 19:23:10 Measurements Intervals [place] Rate: 86 P: 76 GA: 124 QRS: 77 QRSD: 93 T: 75 QT: 356 QTc: 427 Interpretive Statements SINUS RHYTHM WITH SHORT GA INTERVAL POSSIBLE LEFT ATRIAL ENLARGEMENT [-0.1mV P-WAVE IN V1/V2] Compared to ECG 01/07/2024 13:54:47 Electronically Signed On 02-10-2024 14:17:54 PLANT ELECTRICAL ENGINEER by Josephine Duong M.D.
--- NOTE | 2024-02-09 19:22 | ED.CHESTPAIN ---
HPI - Chest Pain General Chief Complaint: Dizziness Stated Complaint: Epigastric pain Time Seen by Provider: 02/09/24 19:19 History of Present Illness HPI narrative: Pt presents with epigastric/lower Cp for the last two hours. Pt denies nausea or vomiting or diarrhea. Pt feels a little dizzy and SOB. Pt has no medical history. Pt is smoker. Mother had stent placed in 50's. Unsure if she had heart attack. Discomfort is constant. Related Data Home Medications ?Medication ?Instructions ?Recorded ?Confirmed ?Last Taken ?Type No Home Medications 12/26/23 01/07/24 Unknown History Allergies Allergy/AdvReac Type Severity Reaction Status Date / Time Penicillins Allergy Severe Difficulty Verified 01/07/24 13:42 Swallowing codeine AdvReac Swelling Verified 01/07/24 13:42 NSAIDS (Non-Steroidal AdvReac Swelling Verified 01/07/24 13:42 Anti-Inflamma of Lip/Tongue/Throat Review of Systems Review of Systems: All systems reviewed & are unremarkable except as noted in HPI and below PMFSH Past Medical History Medical History Drug abuse Tooth decay Surgical History Surgical History No significant past surgical history Family History Family History Father No problems noted. Father Lung cancer Mother Heart disease Social History Social History Years smoked: 20 Smoking status: Current every day smoker Tobacco type: cigarettes Second hand tobacco smoke exposure: Yes Alcohol intake: former Substance use: former Substance use type: marijuana and methamphetamine Gender identity (if verbalized by the patient): Female Spiritual care concerns: No Exam Const: General: healthy appearing and no acute distress Nutritional Appearance: well nourished Orientation/consciousness: patient oriented x3 Limitations: no limitations Neck: Neck: normal visual inspection Chest: Chest palpation & inspection: normal inspection of the chest Resp: Effort & Inspection: normal respiratory effort Auscultation: clear to auscultation bilaterally Cardio: Rate: regular rate Rhythm: regular rhythm GI: GI Palp: Yes Soft to palpation and No Tenderness to palpation present (GI) Auscultation: normal bowel sounds Skin: General skin exam: normal color Wounds: no wounds Neuro: General: patient oriented x3, moves all extremities, no meningeal signs, no focal motor deficits and CN's II-XI intact bilaterally Speech: normal speech Extrem: General: normal to inspection and no clubbing, cyanosis or edema Psych: Mental Status: mental status grossly normal Affect: Anxious affect present Attitude: cooperative Course Vital Signs Vital signs: Vital Signs Temperature 98.4 F 02/09/24 19:14 Pulse Rate 91 02/09/24 19:14 Respiratory Rate 18 02/09/24 19:14 Blood Pressure 133/99 H 02/09/24 19:14 Pulse Oximetry 100 02/09/24 19:14 Oxygen Delivery Room Air 02/09/24 19:14 Temperature 98.4 F 02/09/24 19:14 Pulse Rate 84 02/09/24 19:39 Respiratory Rate 18 02/09/24 19:39 Blood Pressure 123/89 02/09/24 19:39 Pulse Oximetry 100 02/09/24 19:39 Oxygen Delivery Room Air 02/09/24 19:39 MDM - Chest Pain MDM Narrative Medical decision making narrative: pt presents with epigastric pain for 2 hrs. will rule out acs with ekg and trop will check cmp and lipase as well as cxr. EKG shows nsr no significant st or t wave changes. ekg looks similar to prior. Pt says she wants to go home and does not want blood work. told her can't be sure she is not doing damage without blood work and that she could be having a subtle heart attack. She ways she just wants to go home and go to bed. will sign out ama. Differential Diagnosis Differential diagnosis: Likely unstable angina pectoris, atypical chest pain, st elevation myocardial infarction, costochondritis, chest pain, biliary colic and other (gerd pancratitis anxiety) Discharge Plan Discharge Clinical Impression: Chest pain Patient Disposition: Left Against Medical Advice Condition: Stable Instructions: Chest Pain (DC) Patient Language: Ukrainian Prescriptions: No Action No Home Medications Follow-up/Referrals: Nj Schulte DO [Primary Care Provider] -
[2024-02-09] MEDS: MAG HYDROX/ALUMINUM HYD/SIMETH 30 ML, PHENobarb/HYOSCY/ATROPINE/SCOP 32.4 MG, LIDOCAINE... PO (19:38)
[2024-02-09 19:39] VITALS: BP 123/89; PULSE 84; RESP 18; O2SAT 100
== END 2024-02-09 19:45 | disposition left against medical advice (07) ==
PROVIDERS: Emergency Provider Emergency Medicine; PCP Family Medicine
DX: R07.9 Chest pain, unspecified (principal); F17.210 Nicotine dependence, cigarettes, uncomplicated
CPT/HCPCS: 71045; 93005; 99284; A9270

== ENCOUNTER 2024-03-23 01:07 | Emergency (ER) | payer OTHER, SELFPAY ==
--- NOTE | ~2024-03-23 | XR_ITS ---
EXAMINATION: XR chest 1V portable 03/23/2024 02:25 INDICATION: Left-sided chest pain PROCEDURE: AP portable chest COMPARISON: Comparison to multiple prior studies sequentially, with oldest reviewed study dated 03/08/2023. FINDINGS: The lungs are clear. The cardiomediastinal silhouette is within normal limits. There are no pleural effusions. There is no pneumothorax suspected. Prominent left nipple shadow. IMPRESSION: 1: NO ACUTE CARDIOPULMONARY DISEASE. Reviewed, dictated and finalized at location A. MILL OPERATOR
[2024-03-23 01:07] VITALS: BP 137/89; PULSE 85; RESP 16; TEMP 36.6; O2SAT 100
--- OUTSIDE RECORDS SUMMARY | 2024-03-23 01:10 | XMS_ITS | Encounter Summary ---
Author Organization [facility] Address [address] [place] [address]. [place], [place] [id number] [place] [id number] Care Team Providers Care Jacket Preparer Name Role Phone None, Provider Primary Care Provider Yazmina ble Encounter Details Date Type Department Care Team (Late st Contact Info) Description 07/31/2018 Abstract SFL CONVERSION [address] [place] [address] , Generic Conversion, Social History Tobacco Use Types Packs/Day Years Used Date Smoking Tobacco: Never Assessed Comments Unknown Sex and Gender Information Value Date Recorded Sex Assigned at Not on file Legal Sex Female 11:36 PM CDT Gender Identity Not on file Sexual Orientation Not on file documented as of this encounter Plan of Treatment Not on file documented as of this encounter Visit Diagnoses Not on filedocumented in this encounter Care Teams Jacket Preparer Relationship Specialty Start Date End Date None, Provider, PCP - General UNKNOWN PHYSICIAN SPECIALTY 07/13/23 documented as of this encounter
--- OUTSIDE RECORDS SUMMARY | 2024-03-23 01:10 | XMS_ITS | Patient Health Record ---
Author Organization [facility] Address [address] [place] [address] Care Team Providers Care Senior Care Specialist Name Role Phone Alana Epps Primary Care Provider Reason For Referral No Information Social History Sex Assigned At : Social History Observation Description Sex Assigned At Female Plan Of Treatment No Information Insurance Providers Payer Name Payer Address Payer Phone Subscriber Number Group Number Insured Name Patient Relationship to Insured Coverage Start Date Coverage End Date [facility] [address] [place] [phone] [id number] Jaycee Rouse Self - patient is the insured 3
--- OUTSIDE RECORDS SUMMARY | 2024-03-23 01:10 | XMS_ITS | Referral Summary ---
Author Organization [facility] Address [address] [facility] [place] [address] Care Team Providers Care Pattern Hand Name Role Phone Mario Logan MD Primary Care Provider Source Comments [facility],non-owned Affiliates and Associated Physician Practices is amultiple site organization consisting of ambulatory clinics and hospital sitesin [place], [place], [place] and [place]. This disclosure is being madepursuant to the Care Everywhere program and may not contain all information available regarding this patient. Last updated 17.[facility] Allergies Active Allergy Reactions Criticality Noted Date Comments Codeine Anaphylaxis High 07/13/2015 Naproxen GI Discomfort 07/13/2015 No problems with Ibuprofen Penicillins Urticaria,Swelling High 03/27/2014 Ketorolac Other 07/13/2015 Rapid Heart Rate Medications * Be aware that medications may not be up to date on this document. Alwaysverify current medications with the patient. Medication Sig Dispensed Refills Start Date End Date Status methadone (DOLOPHINE) 10 MG tablet Take 270 mg by mouth once daily Active naloxone HCl (NARCAN) 4 MG/0.1ML nasal spray [place] 1 spray into the nose as needed (May repeat every 2 min in alternating nostrils until emergency medical help arrives for overdose) 2 device 11/11/2018 Active Additional Information Patient not taking.Reported on 12/09/2018 plus iron (NATATAB) 29-1 MG tabletIndications:Pre gnancy Take 1 tablet by mouth once daily Reasons: 30 tablet 11 11/11/2018 Active Additional Information Patient not taking.Reported on 04/21/2019 iron polysaccharides (NIFEREX 150) 150 MG capsuleIndications:Ir on Deficiency Anemia Take 1 capsule by mouth once daily Reasons: Anemia From Inadequate Iron in the Body 100 capsule 1 03/24/2019 Active Additional Information Patient not taking.Reported on 05/25/2019 docusate sodium (COLACE) 100 MG capsule Take 1 capsule by mouth 2 times daily 60 capsule 1 05/16/2019 Active Additional Information Patient not taking.Reported on 05/25/2019 ibuprofen (MOTRIN) 600 MG tablet Take 1 tablet by mouth every 6 hours as needed for Pain 40 tablet 1 05/16/2019 Active Additional Information Patient not taking.Reported on 05/25/2019 Active Problems Patient Care Coordination No te Formatting of this note migh t be different from the original. [id number] Problem Noted Date Diagnosed Date Non-reactive NST (non-stress test) 05/12/2019 Decreased movements in third trimester Dizziness 03/10/2019 Overview (03/14/2019): Complaints of persistent dizziness, EKG completed 03/11, QTc: 436, showing possible left atrial enlargement, borderline EKG. Cardiology consult ordered. Nausea and vomiting during 03/10/2019 Anemia affecting in third trimester Overview (05/05/2019): H/H/P: 10.5/285; supplementation sent in 03/10 H/H/P: 9.2/29.2/339; not compliant with supplementation, 05/04 Uterine contractions during 02/26/2019 History of Uterine rupture 12/09/2018 Cystic fibrosis carrier 11/22/2018 Overview (12/09/2018): declines genetic counseling and declines FOB to be screened AMA (advanced maternal age) multigravida 35+ Overview (12/09/2018): NIPT: LR female Obesity complicating 11/11/2018 History of delivery, currently 07/11/2015 Overview (11/11/2018): 2014 LTCS breech presentation 2016 LTCS for cord prolapse, uterine rupture noted during surgery History of macrosomia in inf ant in prior , currently 03/27/2014 Overview (03/27/2014): 10# 8oz. GDM with that Reports maternal broken tailbone and pubic bone shoulder dystocia and dislocated shoulder Supervision of high-risk 02/28/2014 Overview (05/09/2019): Dating: PNL: A+/Imm/-/-, HIV NR Pap: NILM/HPV neg 10/2018 GC/CT: neg/neg Trich: neg Urine cx: neg UDS: H/H/P: 11.7/36/318 HgbE: WNL Genetics: NIPT LR female CF: screen positive Anatomy US: incomplete and AGA Flu shot: LFT's: WNL 10/2018 HCV: NR Early GCT: 91 in 1st trimester 3rd trimester GCT: 104 TPA: NR HIV NR H/H/P: 10/30.5/285 Tdap: GBS: neg Methadone maintenance treatm ent complicating , 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 Overview (05/05/2019): Confirmed dose-270 mg from [facility]. Scanned Into media. Previously used heroin and narcotics with relapse after G6 H/O delivery, currently 015 Bipolar disorder 02/28/2014 Overview (02/28/2014): seroquel H/O gestational diabetes in prior , currently 02/28/2014 Overview (11/11/2018): Early GCT: 91 at 10w3d Hemoglobin A1c 5.0 on 11/11/2018 Hx LEEP (loop electrosurgica l excision procedure), cervix, 02/28/2014 Overview (02/28/2014): In 2000 for [facility]IAN 3 History of Abnormal Pap smear of cervix Overview (11/16/2018): 10/2048: NILM/HPV neg 02/06/15: neg w/ neg HPV per ACOG in media. 08/04/13: negative w neg HPV 11/26/11: neg neg hpv 06/20/10: wnl 09/10/09: wnl 05/09/08: neg 03/09/07: neg 08/18/05: neg 12/30/04: neg 11/2004: neg 05/30/04: neg 2000: CRISTIAN 3 s/p LEEP [place] Evaluate anatomy not seen on prior sonogram Resolved Problems Problem Noted Date Diagnosed Date Resolved Date section wound complication 05/25/2019 05/25/2019 Vaginal discharge during pre gnancy, antepartum 03/06/2019 05/05/2019 Low-lying placenta in second trimester 12/30/2018 01/27/2019 Encounter to establish gesta tional age using ultrasound 11/11/2018 01/27/2019 Drug abuse and dependence 07/13/2015 Overview (07/13/2015): UDS 06/06/15- +Amphetamines, Benzodiazepine, Cocaine, Opiates, Methamphetamine (On Methadone) Elevated BP 04/03/2014 04/03/2014 Malpresentation of fetus 03/27/2014 Overview (03/27/2014): Breech Anemia during , del ivered, current hospitalization 11/11/2018 Immunizations Name Administration Dates Next Due HEP A VACCINE, ADULT 12/09/2018 HEP B VACCINE, ADULT 3 DOSE 01/27/2019, 9 INFLUENZA VACCINE 02/22/2013 INFLUENZA VACCINE, QUADR. (F LUZONE; FLULAVAL; FLUARIX; AFLURIA QUADRIVALENT; 6MO+), 0.5 ML (IIV4) 12/09/2018 INFLUENZA VACCINE, TRIV. (FL UZONE; FLULAVAL; FLUARIX; AFLURIA TRIVALENT; 6MO+), 0.5 ML (IIV3) 04/05/2014 PNEUMOCOCCAL PPSV23 02/24/2016 TD VACCINE 02/24/2016,10/22/2007 TDAP (7yrs+) 04/21/2019, 7,08/01/2015,2014 Social History Tobacco Use Types Packs/Day Years Used Date Smoking Tobacco: Every Day Cigarettes 0.5 22 Smokeless Tobacco: Never Tobacco Cessation:Ready to Q uit: No; Counseling Given: Yes Comments:1/2 pack day Alcohol Use Standard Drinks/Week Comments No 0 (1 standard drink = 0.6 oz pur e alcohol) Sex and Gender Information Value Date Recorded Sex Assigned at Not on file Gender Identity Not on file Sexual Orientation Not on file Last Filed Vital Signs Vital Sign Reading Time Taken Comments Blood Pressure 110/58 05/25/2019 5:10 PM CDT Pulse 70 05/16/2019 2:05 PM CDT Temperature 36.8 ??C (98.3 ??F) 05/25/2019 5:10 PM CD T Respiratory Rate 19 05/25/2019 5:10 PM CDT Oxygen Saturation 97% 05/25/2019 4:47 PM CDT Inhaled Oxygen Concentration - - Weight 86.2 kg (190 lb) 05/25/2019 3:05 PM CDT Height 154.9 cm (5' 1 ) 05/25/2019 3:05 PM CDT Body Mass Index 35.9 05/25/2019 3:05 PM CDT Functional Status Functional Status Response Date of Assess ment Is person deaf or have serious hearing difficult y? No 05/25/2019 Is person blind or have serious difficulty seein g? No 05/25/2019 Does person have serious dif ficulty walking/climbing stairs? No 05/25/2019 Does person have difficulty dressing/bathing? No 05/25/2019 Does person have difficulty doing errands alone? No 05/25/2019 Cognitive Status Response Date of Assessm ent Does person have difficulty concentrating/remembering/making decisions? No 05/25/2019 Plan of Treatment Not on file Procedures Procedure Name Priority Date/Time Associated Diagnosis Comments HIV-1 HIV-2 ANTIBODY + HIV P24 AG PANEL Routine 03/10/2019 1:24 PM PALLIATIVE MEDICINE PHYSICIAN Supervision of high risk in second trimester (HCC) PAP LB HPV HR DNA Routine 11/11/2018 12: 09 PM CDT Cervical cancer screening HEPATITIS C ANTIBODY Routine 11/11/2018 12:07 PM CDT Supervision of high risk , antepartum (HCC) from Last 3 Months or Most Recently Relevant to Health Maintenance Results * HIV-1 HIV-2 ANTIBODY + HIV P24 AG PANEL (03/10/2019 1:24 PM PALLIATIVE MEDICINE PHYSICIAN) HIV1/2 Ab + P24 Ag Non Reactive Non Reactive 03/10/2019 2:57 PM PALLIATIVE MEDICINE PHYSICIAN [facility] Blood BLOOD SPECIMEN / Unknown Venipuncture / Unknown 03/10/2019 1:24 PM PALLIATIVE MEDICINE PHYSICIAN 03/10/2019 1:49 PM PALLIATIVE MEDICINE PHYSICIAN Narrative [facility] - 03/10/2019 2:57 PM PALLIATIVE MEDICINE PHYSICIAN No Laboratory evidence of HIV infection. Ivana Thomas AIRLINE OPERATIONS AGENT-WHITE WORK CLEANER LAB - CHEMISTRY ORDERABLES [facility] [address] [place] [address] * PAP LB HPV HR DNA (11/11/2018 12:09 PM CDT) Diagnosis Comment 11/15/2018 8:07 PM CDT [facility] ([facility]) Comment:NEGATIVE FOR INTRAEP ITHELIAL LESION OR MALIGNANCY. Specimen Adequacy Comment 019 8:07 PM CDT [facility] ([facility]) Comment: Satisfactory for evaluation. ??No endocervical component is identified. An endocervical component is not commonly seen in the patient. Performed by Comment 11/15/2018 8:07 PM CDT [facility] ([facility]) Comment:Bernarda Hutchins Med Asst (ASCP) Comment . 11/15/2018 8:07 PM CDT [facility] ([facility] Note Comment 11/15/2018 8:07 PM CDT [facility] ([facility]) Comment: The Pap smear is a screening test designed to aid in the detection of premalignant and malignant conditions of the uterine cervix. ??It is not a diagnostic procedure and should not be used as the sole means of detecting cervical cancer. ??Both false-positive and false-negative reports do occur. Human papillomavirus High Risk Negative Negative 11/15/2018 8:07 PM CDT [facility] ([facility]) Comment: This high-risk HPV test detects thirteen high-risk types (16/18/31/33/35/39/45/51/52/56/58/59/68) without differentiation. Pathology/Cytolo gy ENTIRE ENDOCERVIX / Unknown Collection / Unknown 11/11/2018 12:09 PM CDT 11/11/2018 12:27 PM CDT Narrative [facility] ([facility]) - 11/15/2018 8:07 PM CDT Performed at: ??01 - [facility] ??[id number] Television Mechanic: Onelia Barbosa MD, Phone: ??[phone] Performed at: ??02 - [facility] [address] ??[id number] Television Mechanic: Onelia Barbosa MD, Phone: ??[phone] Specimen Comment: Source.............Endocervix Specimen Comment: LMP / Prev Treat...Conization;[place] / BX Specimen Comment: Other.............. Specimen Comment: No. of containers..01 ThinPrep Vial Helen Zurita AIRLINE OPERATIONS AGENT-WHITE WORK CLEANER LAB - PATHOLOG Y/CYTOLOGY ORDERABLES [facility] ([facility]) [address] [place] [address] * HEPATITIS C ANTIBODY (11/11/2018 12:07 PM CDT) HCV Antibody Screen Non Reactive Non Reactive 11/11/2018 1:55 PM CDT [facility] HCV S/C Ratio 0.19 0.00 - 0.79 11/11/2018 1:55 PM CDT [facility] Comment: Binlva-hb-pbrhag ratio (S/CO) <0.80:?? Non Reactive Blood BLOOD SPECIMEN / Unknown Venipuncture / Unknown 11/11/2018 12:07 PM CDT 11/11/2018 12:56 PM CDT [facility] - 11/11/2018 1:55 PM CDT Non Reactive - Antibodies to Hepatitis C virus (HCV) were not detected, result does not exclude early acute HCV infection. Helenmanpreet Ballardbrock AIRLINE OPERATIONS AGENT-WHITE WORK CLEANER LAB - CHEMISTR Y ORDERABLES [facility] [address] [place] [address] from Last 3 Months or Most Recently Relevant to Health Maintenance Advance Directives * Full Code (Latest Code Status on File) Date Activated Date Inactivated Comments 05/12/2019 2:03 PM 05/16/2019 6:23 PM * Full Code Date Activated Date Inactivated Comments 05/12/2019 10:39 AM 05/12/2019 2:03 PM * Full Code Date Activated Date Inactivated Comments 04/17/2019 2:33 PM 04/17/2019 5:46 PM * Full Code Date Activated Date Inactivated Comments 03/29/2019 3:20 PM 03/29/2019 6:37 PM * Full Code Date Activated Date Inactivated Comments 03/17/2019 11:00 AM 03/17/2019 7:31 PM Care Teams Pattern Hand Relationship Specialty Start Date End Date Mario Logan MD [address] [place] [address] PCP - General 05/24/19
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
--- OUTSIDE RECORDS SUMMARY | 2024-03-23 01:10 | XMS_ITS | Clinical Summary ---
Author Organization [facility] Address [address] [place] [address]. [place], [place] [id number] [place] [id number] Care Team Providers Care Buyer Broker Name Role Phone None, Provider MD Primary Care Provider Unavaila ble Allergies Active Allergy Reactions Criticality Noted Date Comments Codeine Anaphylaxis,Shortnes s of Breath High 07/13/2015 Ketorolac Other (see comment) 07/13/2015 Rapid Heart Rate Naproxen GI Upset 07/13/2015 No problems with Ibuprofen Penicillins Unknown 07/13/2023 Medications No known medications Active Problems Problem Noted Date Diagnosed Date Lung nodule seen on imaging study 10/14/2023 Thyroid nodule 10/14/2023 Pyelonephritis 10/13/2023 Elevated liver enzymes 10/13/2023 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 Encounters Date Type Department Care Team Description 02/04/2024 6:29 PM CERTIFIED MEDICATION AIDE - 02/04/2024 7:53 PM [facility] Emergency [facility] [address] [place] [address] [place] [address] Lionel Staples MD Altered Mental Status Discharge Disposition: Home or Self Care (Routine Discharge) 02/04/2024 Travel from Last 3 Months Social History Tobacco Use Types Packs/Day Years Used Date Smoking Tobacco: Every Day Cigarettes Smokeless Tobacco: Never Tobacco Cessation:Ready to Q uit: Not Asked; Counseling Given: Not Answered Alcohol Use Standard Drinks/Week Comments Never 0 (1 standard drink = 0.6 oz pur e alcohol) [facility] Utilities Answer Date Recorded In the past 12 months has [employer] electric, gas, oil, or water company threatened to shut off services in your home? No 10/13/2023 Humiliation, Afraid, Rape, and Kick questionnair e Answer Date Recorded Within the last year, have y ou been afraid of your partner or ex-partner? No 10/13/2023 Within the last year, have y ou been humiliated or emotionally abused in other ways by your partner or ex-partner? No Within the last year, have y ou been kicked, hit, slapped, or otherwise physically hurt by your partner or ex-partner? No 10/13/2023 Within the last year, have y ou been raped or forced to have any kind of sexual activity by your partner or ex-partner? No 10/13/2023 Overall Financial Resource Strain (CARDIA) Answe r Date Recorded How hard is it for you to pa y for the very basics like food, housing, medical care, and heating? Not hard at all 10/13/2023 Hunger Vital Sign Answer Date Recorded Within the past 12 months, y ou worried that your food would run out before you got the money to buy more. Never true 10/13/19 Within the past 12 months, t he food you bought just didn't last and you didn't have money to get more. Never true 10/13/2023 PRAPARE - Transportation Answer Date Re corded In the past 12 months, has l ack of transportation kept you from medical appointments or from getting medications? Yes 09/24 In the past 12 months, has l ack of transportation kept you from meetings, work, or from getting things needed for daily living? Yes 10/13/2023 Housing Stability Vital Sign Answer Gokul e Recorded In the last 12 months, was t here a time when you were not able to pay the mortgage or rent on time? No 10/13/2023 In the past 12 months, how m any times have you moved where you were living? 3 10/13/2023 At any time in the past 12 m [facility], were you homeless or living in a detention (including now)? Yes 10/13/2023 Comments No Sex and Gender Information Value Date Recorded Sex Assigned at Not on file Legal Sex Female 11:36 PM CDT Gender Identity Not on file Sexual Orientation Not on file Last Filed Vital Signs Vital Sign Reading Time Taken Comments Blood Pressure 125/80 02/04/2024 6:44 PM CERTIFIED MEDICATION AIDE Pulse 85 02/04/2024 6:44 PM CERTIFIED MEDICATION AIDE Temperature 36.9 ??C (98.5 ??F) 02/04/2024 6:44 PM CS T Respiratory Rate 16 02/04/2024 6:44 PM CERTIFIED MEDICATION AIDE Oxygen Saturation 100% 02/04/2024 6:44 PM CERTIFIED MEDICATION AIDE Inhaled Oxygen Concentration - - Weight 52.7 kg (116 lb 1.6 oz) 02/04/2024 6:44 P M CERTIFIED MEDICATION AIDE Height 154.9 cm (5' 1 ) 02/04/2024 6:44 PM CERTIFIED MEDICATION AIDE Body Mass Index 21.94 02/04/2024 6:44 PM CERTIFIED MEDICATION AIDE Plan of Treatment Health Maintenance Due Date Last Done Comments Annual Physical 1985 Pneumococcal Vaccine: Pediatrics (0 to 5 Years) and At-Risk Patients (6 to 64 Years) (1 of 2 - PCV) 01/29/1988 02/24/2016 Hepatitis B Vaccines (3 of 3 - 19+ 3-dose series) 06/10/2019 01/27/2019, 12/09/2018 Mammogram Screening 2022 COVID-19 Vaccine ( season) 2023 Influenza Adult (#1) 2023 12/09/2018, 04/05/2014, 02/22/2013 Cervical Cancer Screening Pap Smear (Age 30 to 64) Every 3 Years 04/23/2025 04/23/2022 Cervical Cancer Screening Pap with HPV Testing (Age 30 to 64) Every 5 Years 04/24/2027 04/23/2022 Cervical Cancer Screening with HPV 04/24/2027 DTaP, Tdap and Td Vaccines (7 - Td or Tdap) 04/21/2029 04/21/2019, 12/07/2016, 02/24/2016, Additional history exists Hepatitis C Completed 10/13/2023, 11/11/2018 HPV Vaccines Aged Out No longer eligi ble based on patient's age to complete this topic Meningococcal B Vaccine Aged Out No l onger eligible based on patient's age to complete this topic Meningococcal Vaccine Aged Out No jeff sandro eligible based on patient's age to complete this topic RSV Immunizations Under 20 Months Aged Out No longer eligible based on patient's age to complete this topic Procedures Procedure Name Priority Date/Time Associated Diagnosis Comments HEPATITIS PANEL,ACUTE Routine 10/13/2023 3:24 AM CDT from Last 3 Months or Most Recently Relevant to Health Maintenance Results * HEPATITIS PANEL,ACUTE (10/13/2023 3:24 AM CDT) HEPATITIS B SURFACE AG NON-REACT VARGHESE NON-REACT VARGHESE 10/13/2023 1:41 PM CDT [facility] Comment:HBsAg NOT DETECTED. HEP B CORE IGM NON-REACT VARGHESE NON-REACT VARGHESE 10/13/2023 1:41 PM CDT [facility] Comment: IgM ANTI HBc NOT DETECTED. DOES NOT EXCLUDE THE POSSIBILITY OF EXPOSURE TO OR INFECTION WITH HBV. NO RETEST REQUIRED. HIGH DOSES OF BIOTIN MAY INTERFERE WITH THIS TEST RESULT. CORRELATION TO CLINICAL HISTORY AND PRESENTATION RECOMMENDED. HAV IGM NON-REACT VARGHESE NON-REACT VARGHESE 10/13/2023 1:41 PM CDT [facility] Comment: IgM ANTI HAV NOT DETECTED. DOES NOT EXCLUDE THE POSSIBILITY OF EXPOSURE TO OR INFECTION WITH HAV. LEVELS OF IgM ANTI HAV MAY BE BELOW THE CUTOFF IN EARLY INFECTION. HEPATITIS C AB NON-REACT VARGHESE NON-REACT VARGHESE 10/13/2023 1:42 PM CDT [facility] Comment: ANTIBODIES TO HCV NOT DETECTED. DOES NOT EXCLUDE THE POSSIBILITY OF EXPOSURE TO HCV. 10/13/2023 3:24 AM CDT Tenisha Cheema MD LABORATORY Final Result [facility] [address] [place] [address], [id number] from Last 3 Months or Most Recently Relevant to Health Maintenance Insurance [employer] Advance Directives Documents on File Type Date Recorded Patient [employer] Ship Expl anation Advance Directives and Living Will 05/10/2015 12:00 AM [employer] Advance Directives and Living Will 08/06/2013 12:00 AM [employer] Advance Directives and Living Will 12/28/2012 12:00 AM [employer] * Full Code (Latest Code Status on File) Date Activated Date Inactivated Comments 10/13/2023 5:53 AM 10/14/2023 10:50 AM Care Teams Buyer Broker Relationship Specialty Start Date End Date None, Provider, PCP - General UNKNOWN PHYSICIAN SPECIALTY 07/13/23
--- OUTSIDE RECORDS SUMMARY | 2024-03-23 01:10 | XMS_ITS | Patient Health Summary ---
Author Organization [facility] Address [address] [place] [address] Care Team Providers Care Cloth Bolt Bander Name Role Phone Mario Logan MD Primary Care Provider [phone] Note from [facility],non-owned Affiliates and Associated Physician Practices is amultiple site organization consisting of ambulatory clinics and hospital sitesin [place], [place], [place] and [place]. This disclosure is being madepursuant to the Care Everywhere program and may not contain all information available regarding this patient. Last updated 17.[facility] Allergies * Codeine(Anaphylaxis) -High Criticality * Naproxen(GI Discomfort) * Penicillins(Urticaria,Swelling) -High Criticality * Ketorolac(Other) Medications * Be aware that medications may not be up to date on this document. Alwaysverify current medications with the patient. * methadone (DOLOPHINE) 10 MG tablet Take 270 mg by mouth once daily * naloxone HCl (NARCAN) 4 MG/0.1ML nasal spray(Started 11/11/2018) Sw[place]ara 1 spray into the nose as needed (May repeat every 2 min in alternating nostrils until emergency medical help arrives for overdose) * plus iron (NATATAB) 29-1 MG tablet(Started 11/11/2018) Take 1 tablet by mouth once daily Reasons: 11 refills remaining * iron polysaccharides (NIFEREX 150) 150 MG capsule(Started 03/24/2019) Take 1 capsule by mouth once daily Reasons: Anemia From Inadequate Iron in the Body 1 refill by 03/23/2020 * docusate sodium (COLACE) 100 MG capsule(Started 05/16/2019) Take 1 capsule by mouth 2 times daily 1 refill by 05/15/2020 * ibuprofen (MOTRIN) 600 MG tablet(Started 05/16/2019) Take 1 tablet by mouth every 6 hours as needed for Pain 1 refill by 05/15/2020 Active Problems Problem Noted Date Diagnosed Date Non-reactive NST (non-stress test) 05/12/2019 Decreased movements in third trimester Dizziness 03/10/2019 Nausea and vomiting during 03/10/2019 Anemia affecting in third trimester Uterine contractions during 02/26/2019 History of Uterine rupture 12/09/2018 Cystic fibrosis carrier 11/22/2018 AMA (advanced maternal age) multigravida 35+ Obesity complicating 11/11/2018 History of delivery, currently 07/11/2015 History of macrosomia in inf ant in prior , currently 03/27/2014 Supervision of high-risk 02/28/2014 Methadone maintenance treatm ent complicating , 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 H/O delivery, currently 015 Bipolar disorder 02/28/2014 H/O gestational diabetes in prior , currently 02/28/2014 Hx LEEP (loop electrosurgica l excision procedure), cervix, 02/28/2014 History of Abnormal Pap smear of cervix Evaluate anatomy not seen on prior sonogram Resolved Problems Problem Noted Date Diagnosed Date Resolved Date section wound complication 05/25/2019 05/25/2019 Vaginal discharge during pre gnancy, antepartum 03/06/2019 05/05/2019 Low-lying placenta in second trimester 12/30/2018 01/27/2019 Encounter to establish gesta tional age using ultrasound 11/11/2018 01/27/2019 Drug abuse and dependence 07/13/2015 Elevated BP 04/03/2014 04/03/2014 Malpresentation of fetus 03/27/2014 Anemia during , del ivered, current hospitalization 11/11/2018 Immunizations * HEP A VACCINE, ADULT(Given 12/09/2018) * HEP B VACCINE, ADULT 3 DOSE(Given 01/27/2019, 12/09/2018) * INFLUENZA VACCINE(Given 02/22/2013) * INFLUENZA VACCINE, QUADR. (FLUZONE; FLULAVAL; FLUARIX; AFLURIA QUADRIVALENT; 6MO+), 0.5 ML (IIV4)(Given 12/09/2018) * INFLUENZA VACCINE, TRIV. (FLUZONE; FLULAVAL; FLUARIX; AFLURIA TRIVALENT; 6MO+), 0.5 ML (IIV3)(Given 04/05/2014) * PNEUMOCOCCAL PPSV23(Given 02/24/2016) * TD VACCINE(Given 02/24/2016, 10/22/2007) * TDAP (7yrs+)(Given 04/21/2019, 12/07/2016, 08/01/2015, 04/06/2014) Social History Tobacco Use Types Packs/Day Years [...] Mass Index 35.9 05/25/2019 3:05 PM CDT Procedures * COMPREHENSIVE METABOLIC PANEL(Performed 05/25/2019) Performed for section wound complication (HCC) * CBC W AUTO DIFFERENTIAL(Performed 05/25/2019) Performed for section wound complication (HCC) * IMAGING/RADIOLOGY/XRAY RESULTS ORDER(Performed 05/17/2019) * EKG 12-LEAD(Performed 05/13/2019) Performed for Methadone maintenance treatment complicating , antepartum ([facility]), Supervisionof high risk , antepartum ([facility]) * CBC W AUTO DIFFERENTIAL(Performed 05/13/2019) * BLOOD GASES CORD GENIA(Performed 05/12/2019) * PATHOLOGY TISSUE EXAM (STL)(Performed 05/12/2019) Performed for delivery delivered ([facility]) * NEURAXIAL BLOCK(Performed 05/12/2019) * SECTION (EMERGENCY)(Performed 05/12/2019) * URINE DRUG SCREEN IMMUNOASSAY(Performed 05/12/2019) Performed for Methadone maintenance treatment complicating , antepartum ([facility]) * PREPARE RBC LEUKOREDUCED UNIT(Performed 05/12/2019) * TYPE + SCREEN PANEL(Performed 05/12/2019) Performed for Non-reactive NST (non-stress test) * CBC W AUTO DIFFERENTIAL(Performed 05/12/2019) Performed for Non-reactive NST (non-stress test) * GLUCOSE PROTEIN KETONE URINE - POINT OF CAR(Performed 05/12/2019) Performed for Supervision of high risk in second trimester ([facility]), Methadone maintenance treatment complicating , antepartum ([facility]) * URINE DRUG SCREEN IMMUNOASSAY(Performed 05/12/2019) Performed for Evaluate anatomy not seen on prior sonogram, Antepartum multigravida of advanced maternal age ([facility]) * GLUCOSE PROTEIN KETONE URINE - POINT OF CAR(Performed 05/11/2019) Performed for Supervision of high risk in second trimester ([facility]) * SONOGRAM - COMPLETE(Performed 05/11/2019) * URINE DRUG SCREEN IMMUNOASSAY(Performed 05/11/2019) Performed for Supervision of high risk in second trimester ([facility]) * COMPREHENSIVE METABOLIC PANEL(Performed 05/05/2019) Performed for RUQ pain * CBC W AUTO DIFFERENTIAL(Performed 05/05/2019) Performed for Anemia during ([facility]) * CULTURE STREP B(Performed 05/05/2019) Performed for Supervision of high risk in third trimester ([facility]) * URINE DRUG SCREEN IMMUNOASSAY(Performed 05/05/2019) Performed for Methadone maintenance treatment complicating , antepartum ([facility]) * GLUCOSE PROTEIN KETONE URINE - POINT OF CAR(Performed 05/05/2019) Performed for Supervision of high risk in third trimester ([facility]) * SONOGRAM - COMPLETE(Performed 04/21/2019) * GLUCOSE PROTEIN KETONE URINE - POINT OF CAR(Performed 04/21/2019) Performed for Supervision of high risk in third trimester ([facility]), Methadone maintenance treatment complicating , antepartum ([facility]) * URINE DRUG SCREEN IMMUNOASSAY(Performed 04/21/2019) Performed for Evaluate anatomy not seen on prior sonogram, Antepartum multigravida of advanced maternal age ([facility]) * URINE MICROSCOPIC ONLY REFLEX TO CULTURE(Performed 04/17/2019) Performed for Methadone maintenance treatment complicating , antepartum ([facility]) * URINALYSIS REFLEX MICROSCOPIC REFLEX CULTURE(Performed 04/17/2019) Performed for Methadone maintenance treatment complicating , antepartum ([facility]) * CULTURE URINE(Performed 04/17/2019) Performed for Methadone maintenance treatment complicating , antepartum ([facility]) * IMAGING/RADIOLOGY/XRAY RESULTS ORDER(Performed 04/07/2019) * GLUCOSE PROTEIN KETONE URINE - POINT OF CAR(Performed 04/07/2019) Performed for Supervision of high risk in third trimester ([facility]), Methadone maintenance treatment complicating , antepartum ([facility]) * URINE DRUG SCREEN IMMUNOASSAY(Performed 04/07/2019) Performed for Evaluate anatomy not seen on prior sonogram, Multigravida of advanced maternal age infirst trimester ([facility]) * IMAGING/RADIOLOGY/XRAY RESULTS ORDER(Performed 04/07/2019) * AMB CONSULT TO CARDIOLOGY(Performed 04/01/2019) Performed for Abnormal EKG, Dizziness * NONSTRESS TEST(Performed 03/29/2019) Performed for Nausea and vomiting during ([facility]) * URINE DRUG SCREEN IMMUNOASSAY(Performed 03/29/2019) Performed for Nausea and vomiting during ([facility]), Supervision of high risk in third trimester ([facility]), Methadone maintenance treatment complicating , antepartum ([facility]) * SONOGRAM - COMPLETE(Performed 03/24/2019) * GLUCOSE PROTEIN KETONE URINE - POINT OF CAR(Performed 03/24/2019) Performed for Methadone maintenance treatment complicating , antepartum ([facility]) * URINE DRUG SCREEN IMMUNOASSAY(Performed 03/24/2019) Performed for Evaluate anatomy not seen on prior sonogram, Antepartum multigravida of advanced maternal age ([facility]) * NONSTRESS TEST(Performed 03/17/2019) Performed for Uterine contractions during ([facility]) * RESPIRATORY PATHOGEN PANEL BY PCR(Performed 03/17/2019) Performed for Nausea and vomiting during ([facility]), Shortness of breath * CT ANGIO CHEST PULM EMBOLISM(Performed 03/17/2019) Performed for Shortness of breath * EKG 12-LEAD(Performed 03/17/2019) Performed for Nausea and vomiting during ([facility]) * ECHOCARDIOGRAM 2D WITH DOPPLER(Performed 03/17/2019) Performed for Shortness of breath * XR CHEST 1VW PORTABLE(Performed 03/17/2019) Performed for Nausea and vomiting during ([facility]) * T4 FREE(Performed 03/17/2019) Performed for Nausea and vomiting during ([facility]) * B-TYPE NATRIURETIC PEPTIDE(Performed 03/17/2019) Performed for Nausea and vomiting during ([facility]) * URINE MICROSCOPIC ONLY REFLEX TO CULTURE(Performed 03/17/2019) Performed for Nausea and vomiting during ([facility]) * URINALYSIS REFLEX MICROSCOPIC REFLEX CULTURE(Performed 03/17/2019) Performed for Nausea and vomiting during ([facility]) * CK BLOOD(Performed 03/17/2019) Performed for Nausea and vomiting during ([facility]) * TROPONIN I(Performed 03/17/2019) Performed for Nausea and vomiting during ([facility]) * PHOSPHORUS BLOOD(Performed 03/17/2019) Performed for Nausea and vomiting during ([facility]) * MAGNESIUM BLOOD(Performed 03/17/2019) Performed for Nausea and vomiting during ([facility]) * TSH(Performed 03/17/2019) Performed for Nausea and vomiting during ([facility]) * COMPREHENSIVE METABOLIC PANEL(Performed 03/17/2019) Performed for Nausea and vomiting during ([facility]) * CBC W AUTO DIFFERENTIAL(Performed 03/17/2019) Performed for Nausea and vomiting during ([facility]) * CULTURE URINE(Performed 03/17/2019) Performed for Nausea and vomiting during ([facility]) * GLUCOSE PROTEIN KETONE URINE - POINT OF CAR(Performed 03/17/2019) Performed for Supervision of high risk in third trimester ([facility]), Methadone maintenance treatment complicating , antepartum ([facility]) * URINE DRUG SCREEN IMMUNOASSAY(Performed 03/17/2019) Performed for Evaluate anatomy not seen on prior sonogram, Antepartum multigravida of advanced maternal age ([facility]) * NONSTRESS TEST(Performed 03/10/2019) Performed for Dizziness, Nausea and vomiting during ([facility]), Supervision of high risk in second trimester ([facility]) * IRON + TRANSFERRIN PANEL(Performed 03/10/2019) Performed for Anemia during in third trimester ([facility]) * FERRITIN(Performed 03/10/2019) Performed for Anemia during in third trimester ([facility]) * COMPREHENSIVE METABOLIC PANEL(Performed 03/10/2019) Performed for Supervision of high risk in second trimester ([facility]) * GLUCOSE CHALLENGE(Performed 03/10/2019) Performed for Supervision of high risk in second trimester ([facility]) * HIV-1 HIV-2 ANTIBODY + HIV P24 AG PANEL(Performed 03/10/2019) Performed for Supervision of high risk in second trimester ([facility]) * SYPHILIS ANTIBODY CASCADING REFLEX(Performed 03/10/2019) Performed for Supervision of high risk in second trimester ([facility]) * CBC W AUTO DIFFERENTIAL(Performed 03/10/2019) Performed for Supervision of high risk in second trimester ([facility]) * URINE MICROSCOPIC ONLY REFLEX TO CULTURE(Performed 03/10/2019) Performed for Flank pain * URINALYSIS REFLEX MICROSCOPIC REFLEX CULTURE(Performed 03/10/2019) Performed for Flank pain * CULTURE STREP GROUP A(Performed 03/10/2019) Performed for Supervision of high risk in second trimester ([facility]), Sore throat * CULTURE URINE(Performed 03/10/2019) Performed for Flank pain * STREP A SCREEN DIRECT W RFLX STREP A CULTURE(Performed 03/10/2019) Performed for Supervision of high risk in second trimester ([facility]), Sore throat * SONOGRAM - TRANSVAGINAL(Performed 03/10/2019) * GLUCOSE PROTEIN KETONE URINE - POINT OF CAR(Performed 03/10/2019) Performed for Supervision of high risk in second trimester ([facility]) * URINE DRUG SCREEN IMMUNOASSAY(Performed 03/10/2019) Performed for Evaluate anatomy not seen on prior sonogram, Antepartum multigravida of advanced maternal age ([facility]) * EKG 12-LEAD(Performed 03/10/2019) Performed for Supervision of high risk , antepartum ([facility]), Methadone maintenance treatmentcomplicating , antepartum ([facility]) * URINE MICROSCOPIC ONLY REFLEX TO CULTURE(Performed 03/06/2019) Performed for Vaginal discharge during , antepartum ([facility]) * URINALYSIS REFLEX MICROSCOPIC REFLEX CULTURE(Performed 03/06/2019) Performed for Vaginal discharge during , antepartum ([facility]) * URINE DRUG SCREEN IMMUNOASSAY(Performed 03/06/2019) Performed for Methadone maintenance treatment complicating , antepartum ([facility]), Supervisionof high risk in second trimester ([facility]) * CULTURE URINE(Performed 03/06/2019) Performed for Vaginal discharge during , antepartum ([facility]) * KETONES URINE - POINT OF CARE(Performed 03/06/2019) * URINE MICROSCOPIC ONLY REFLEX TO CULTURE(Performed 02/26/2019) Performed for Uterine contractions during ([facility]) * URINALYSIS REFLEX MICROSCOPIC REFLEX CULTURE(Performed 02/26/2019) Performed for Uterine contractions during ([facility]) * CULTURE URINE(Performed 02/26/2019) Performed for Uterine contractions during ([facility]) * CHLAMYDIA + GC AMPLIFIED PROBE(Performed 02/26/2019) Performed for Uterine contractions during ([facility]) * TRICHOMONAS RAPID TEST(Performed 02/26/2019) Performed for Uterine contractions during ([facility]) * SONOGRAM - COMPLETE(Performed 02/24/2019) * GLUCOSE PROTEIN KETONE URINE - POINT OF CAR(Performed 02/24/2019) Performed for Supervision of high risk in second trimester ([facility]) * URINE DRUG SCREEN IMMUNOASSAY(Performed 02/24/2019) Performed for Supervision of high risk in second trimester ([facility]) * SONOGRAM - TRANSVAGINAL(Performed 01/27/2019) * GLUCOSE PROTEIN KETONE URINE - POINT OF CAR(Performed 01/27/2019) Performed for Supervision of high risk in second trimester ([facility]), Methadone maintenance treatment complicating , antepartum ([facility]) * URINE DRUG SCREEN IMMUNOASSAY(Performed 01/27/2019) Performed for Supervision of high risk in second trimester ([facility]), Methadone maintenance treatment complicating , antepartum ([facility]) * SONOGRAM - COMPLETE(Performed 01/06/2019) * GLUCOSE PROTEIN KETONE URINE - POINT OF CAR(Performed 01/06/2019) Performed for Supervision of high risk in second trimester ([facility]), Methadone maintenance treatment complicating , antepartum ([facility]) * URINE DRUG SCREEN IMMUNOASSAY(Performed 01/06/2019) Performed for Supervision of high risk in second trimester ([facility]), Methadone maintenance treatment complicating , antepartum ([facility]) * TRICHOMONAS VAGINALIS AMPLIFIED PROBE(Performed 12/30/2018) Performed for Supervision of high risk in second trimester ([facility]), Abdominal cramping affecting ([facility]) * CHLAMYDIA + GC AMPLIFIED PROBE(Performed 12/30/2018) Performed for Abdominal cramping affecting ([facility]), Supervision of high risk in second trimester ([facility]) * BACTERIAL VAGINOSIS + YEAST SMEAR(Performed 12/30/2018) Performed for Abdominal cramping affecting ([facility]), Supervision of high risk in second trimester ([facility]) * FENTANYL URINE(Performed 12/30/2018) Performed for Supervision of high risk in second trimester ([facility]), Methadone maintenance treatment complicating , antepartum ([facility]), Obesity affecting in second trimester ([facility]) * URINE MICROSCOPIC ONLY(Performed 12/30/2018) Performed for Supervision of high risk in second trimester ([facility]), Abdominal cramping affecting ([facility]) * URINALYSIS REFLEX TO MICROSCOPIC NO CULTURE(Performed 12/30/2018) Performed for Supervision of high risk in second trimester ([facility]), Abdominal cramping affecting ([facility]) * CULTURE URINE(Performed 12/30/2018) Performed for Supervision of high risk in second trimester ([facility]), Abdominal cramping affecting ([facility]) * SONOGRAM - TRANSVAGINAL(Performed 12/30/2018) * GLUCOSE PROTEIN KETONE URINE - POINT OF CAR(Performed 12/30/2018) Performed for Supervision of high risk in second trimester ([facility]) * URINE DRUG SCREEN IMMUNOASSAY(Performed 12/30/2018) Performed for Antepartum multigravida of advanced maternal age ([facility]) * URINE MICROSCOPIC ONLY REFLEX TO CULTURE(Performed 12/09/2018) Performed for Cramping affecting , antepartum ([facility]) * FENTANYL URINE(Performed 12/09/2018) Performed for Methadone maintenance treatment complicating , antepartum ([facility]) * URINALYSIS REFLEX MICROSCOPIC REFLEX CULTURE(Performed 12/09/2018) Performed for Cramping affecting , antepartum ([facility]) * CULTURE URINE(Performed 12/09/2018) Performed for Cramping affecting , antepartum ([facility]) * SONOGRAM - COMPLETE(Performed 12/09/2018) * GLUCOSE PROTEIN KETONE URINE - POINT OF CAR(Performed 12/09/2018) Performed for Supervision of high risk in second trimester ([facility]) * URINE DRUG SCREEN IMMUNOASSAY(Performed 12/09/2018) Performed for Antepartum multigravida of advanced maternal age ([facility]) * CHLAMYDIA + GC AMPLIFIED PROBE(Performed 11/11/2018) Performed for Supervision of high risk , antepartum ([facility]) * PAP LB HPV HR DNA(Performed 11/11/2018) Performed for Cervical cancer screening * TRICHOMONAS RAPID TEST(Performed 11/11/2018) Performed for Supervision of high risk , antepartum ([facility]) * TYPE + SCREEN PANEL(Performed 11/11/2018) Performed for Supervision of high risk , antepartum ([facility]) * HEMOGLOBIN A1C(Performed 11/11/2018) Performed for Supervision of high-risk of elderly multigravida ([facility]), History of diet controlled gestational diabetes mellitus (GDM), Obesity (BMI 30-39.9) * RUBELLA ANTIBODY IGG(Performed 11/11/2018) Performed for Supervision of high risk , antepartum ([facility]) * SYPHILIS ANTIBODY CASCADING REFLEX(Performed 11/11/2018) Performed for Supervision of high risk , antepartum ([facility]) * HEPATITIS B SURFACE ANTIGEN W RFLX CONFIRMATION(Performed 11/11/2018) Performed for Supervision of high risk , antepartum ([facility]) * CBC W AUTO DIFFERENTIAL(Performed 11/11/2018) Performed for Supervision of high risk , antepartum ([facility]) * FERRITIN(Performed 11/11/2018) Performed for Supervision of high risk , antepartum ([facility]) * HEPATITIS C ANTIBODY(Performed 11/11/2018) Performed for Supervision of high risk , antepartum ([facility]) * HEPATITIS B SURFACE ANTIGEN W RFLX CONFIRMATION(Performed 11/11/2018) Performed for Supervision of high risk , antepartum ([facility]) * CYSTIC FIBROSIS MUTATION PANEL(Performed 11/11/2018) Performed for Supervision of high risk , antepartum ([facility]) * COMPREHENSIVE METABOLIC PANEL(Performed 11/11/2018) Performed for Supervision of high risk , antepartum ([facility]) * HEMOGLOBIN ELECTROPHORESIS(Performed 11/11/2018) Performed for Supervision of high risk , antepartum ([facility]) * HIV-1 HIV-2 ANTIBODY + HIV P24 AG PANEL(Performed 11/11/2018) Performed for Supervision of high risk , antepartum ([facility]) * GLUCOSE CHALLENGE(Performed 11/11/2018) Performed for Supervision of high-risk of elderly multigravida ([facility]), History of diet controlled gestational diabetes mellitus (GDM) * URINE MICROSCOPIC ONLY(Performed 11/11/2018) Performed for Supervision of high risk , antepartum ([facility]) * URINALYSIS REFLEX TO MICROSCOPIC NO CULTURE(Performed 11/11/2018) Performed for Supervision of high risk , antepartum ([facility]) * SONOGRAM - COMPLETE(Performed 11/11/2018) * GLUCOSE PROTEIN KETONE URINE - POINT OF CAR(Performed 11/11/2018) Performed for Supervision of high-risk of elderly multigravida (HCC) * FENTANYL URINE(Performed 11/11/2018) Performed for Supervision of high-risk of elderly multigravida (HCC) * URINE DRUG SCREEN IMMUNOASSAY(Performed 11/11/2018) Performed for Supervision of high-risk of elderly multigravida (HCC) * CULTURE URINE(Performed 11/11/2018) Performed for Supervision of high-risk of elderly multigravida (HCC) * ANEUPLOIDY SCREENING(Performed 11/11/2018) * IMAGING/RADIOLOGY/XRAY RESULTS ORDER(Performed 09/06/2015) * APHERESIS/TRANSFUSION ORDER(Performed 09/06/2015) * DIFFERENTIAL MANUAL(Performed 09/01/2015) * CBC W AUTO DIFFERENTIAL(Performed 09/01/2015) * PREPARE FFP UNIT(S)(Performed 08/31/2015) * PREPARE FFP UNIT(S)(Performed 08/31/2015) * COAGULATION PANEL W D-DIMER(Performed 08/31/2015) * CBC W AUTO DIFFERENTIAL(Performed 08/31/2015) * HEPATITIS SCREEN ACUTE(Performed 08/31/2015) * RPR(Performed 08/31/2015) * HIV-1 HIV-2 ANTIBODY + HIV P24 AG RAPID PNL(Performed 08/31/2015) * BLOOD GASES CORD GENIA (ISTAT)(Performed 08/31/2015) * BLOOD GASES CORD ART (ISTAT)(Performed 08/31/2015) * PATHOLOGY TISSUE EXAM (STL)(Performed 08/31/2015) Performed for Diagnosis unknown * NEURAXIAL BLOCK(Performed 08/31/2015) * CROSSMATCH RBC LEUKOREDUCED(Performed 08/31/2015) * CROSSMATCH RBC LEUKOREDUCED(Performed 08/31/2015) * TYPE + SCREEN PANEL(Performed 08/31/2015) * DIFFERENTIAL MANUAL(Performed 08/31/2015) * CBC W AUTO DIFFERENTIAL(Performed 08/31/2015) * FIBRINOGEN ACTIVITY(Performed 08/31/2015) * PT-INR(Performed 08/31/2015) * PTT(Performed 08/31/2015) * PATHOLOGY/GENETICS HISTORICAL-ONBASE(Performed 08/31/2015) * GLUCOSE PROTEIN KETONE URINE - POINT OF CAR(Performed 08/30/2015) * IMAGING/RADIOLOGY/XRAY RESULTS ORDER(Performed 08/25/2015) * URINE DRUG SCREEN IMMUNOASSAY(Performed 08/23/2015) * CULTURE STREP B(Performed 08/23/2015) Performed for Supervision of high-risk , third trimester (HCC) * TYPE + SCREEN PANEL(Performed 08/23/2015) Performed for Supervision of high-risk , third trimester (HCC) * CBC W AUTO DIFFERENTIAL(Performed 08/23/2015) Performed for Supervision of high-risk , third trimester (HCC) * SONOGRAM - COMPLETE(Performed 08/15/2015) Performed for Supervision of high-risk , third trimester (HCC), Methadone maintenance treatment complicating , antepartum, third trimester (HCC) * CHLAMYDIA + GC AMPLIFIED PROBE(Performed 08/15/2015) * GLUCOSE PROTEIN KETONE URINE - POINT OF CAR(Performed 08/15/2015) * URINE DRUG SCREEN IMMUNOASSAY(Performed 08/15/2015) * LAB RESULTS ORDER(Performed 08/05/2015) * GLUCOSE PROTEIN KETONE URINE - POINT OF CAR(Performed 08/01/2015) * SONOGRAM - COMPLETE(Performed 07/18/2015) * IRON + TRANSFERRIN PANEL(Performed 07/18/2015) * FERRITIN(Performed 07/18/2015) * HEPATIC FUNCTION PANEL(Performed 07/18/2015) * CBC W AUTO DIFFERENTIAL(Performed 07/18/2015) * HIV-1 HIV-2 ANTIBODY + HIV P24 AG PANEL(Performed 07/18/2015) * HEPATITIS SCREEN ACUTE(Performed 07/18/2015) * URINE DRUG SCREEN IMMUNOASSAY(Performed 07/18/2015) * GLUCOSE PROTEIN KETONE URINE - POINT OF CAR(Performed 07/18/2015) * GLUCOSE PROTEIN KETONE URINE - POINT OF CAR(Performed 04/23/2014) * LAB RESULTS ORDER(Performed 04/08/2014) * IMAGING/RADIOLOGY/XRAY RESULTS ORDER(Performed 04/08/2014) * CBC W AUTO DIFFERENTIAL(Performed 04/04/2014) * SECTION(Performed 04/03/2014) * PATHOLOGY TISSUE EXAM (STL)(Performed 04/03/2014) * BLOOD GASES CORD GENIA (ISTAT)(Performed 04/03/2014) * BLOOD GASES CORD ART (ISTAT)(Performed 04/03/2014) * NEURAXIAL BLOCK(Performed 04/03/2014) * HIV-1 HIV-2 ANTIBODY + HIV P24 AG RAPID PNL(Performed 04/03/2014) * HEPATITIS C ANTIBODY(Performed 04/03/2014) * CROSSMATCH RBC LEUKOREDUCED(Performed 04/03/2014) * CROSSMATCH RBC LEUKOREDUCED(Performed 04/03/2014) * BLOOD TYPE VERIFICATION(Performed 04/03/2014) * TYPE + SCREEN PANEL(Performed 04/03/2014) * CBC W AUTO DIFFERENTIAL(Performed 04/03/2014) * URINE DRUG SCREEN IMMUNOASSAY(Performed 04/03/2014) * GLUCOSE PROTEIN KETONE URINE - POINT OF CAR(Performed 03/27/2014) * SECTION (EMERGENCY) * SURGICAL CASE DISCONTINUED PREOP Results * (ABNORMAL) CBC W AUTO DIFFERENTIAL (05/25/2019 3:47 PM CDT) Only the most recent of14 resultswithin the time period is included. WBC 8.3 4.4 - 10.7 x10E9/L 05/25/2019 4:05 PM CDT [facility] WBC Corrected 05/25/2019 4:05 PM CDT [facility] RBC 3.44(L) 3.80 - 5.20 x10E12/L 05/25/2019 4:05 PM CDT [facility] Hemoglobin 9.4(L) 12.0 - 15.6 gm/dL 05/25/2019 4:05 PM CDT [facility] Hematocrit 30.8(L) 35.9 - 45.5 % 05/25/2019 4:05 PM CDT [facility] MCV 89.5 80.7 - 98.3 fl 05/25/2019 4:05 PM CDT [facility] MCH 27.3 26.7 - 34.0 pg 05/25/2019 4:05 PM CDT [facility] MCHC 30.5(L) 30.8 - 35.9 gm/dL 05/25/2019 4:05 PM CDT [facility] Platelet Count 508(H) 153 - 416 x10E9/L 05/25/2019 4:05 PM CDT [facility] RDW-CV 14.6 12.1 - 14.9 % 05/25/2019 4:05 PM CDT [facility] MPV 9.5 9.4 - 12.9 fl 05/25/2019 4:05 PM CDT [facility] Neutrophils % 62.6 44.0 - 73.0 % 05/25/2019 4:05 PM CDT [facility] Lymphocytes % 26.2 20.0 - 43.0 % 05/25/2019 4:05 PM CDT [facility] Monocytes % 9.0 5.0 - 13.0 % 05/25/2019 4:05 PM CDT [facility] Eosinophils % 1.2 0.0 - 6.0 % 05/25/2019 4:05 PM CDT [facility] Basophils % 0.6 0.0 - 2.0 % 05/25/2019 4:05 PM CDT [facility] Immature Granulocytes 0.4 0 - 1 % 05/25/2019 4:05 PM CDT [facility] Neutrophil Absolute 5.22 2.01 - 7.14 x10E9/L 05/25/2019 4:05 PM CDT [facility] Lymphocytes Absolute 2.18 1.07 - 3.94 x10E9/L 05/25/2019 4:05 PM CDT [facility] Monocytes Absolute 0.75 0.26 - 1.07 x10E9/L 05/25/2019 4:05 PM CDT [facility] Eosinophils Absolute 0.10 0 - 0.47 x10E9/L 05/25/2019 4:05 PM CDT [facility] Basophils Absolute 0.05 0 - 0.08 x10E9/L 05/25/2019 4:05 PM CDT [facility] Immature Granulocytes Absolute 0.03 0.00 - 0.06 x10E9/L 05/25/2019 4:05 PM CDT [facility] nRBC Auto 0 /100 WBC 05/25/2019 4:05 PM CDT [facility] Blood BLOOD SPECIMEN / Unknown Venipuncture / Unknown 05/25/2019 3:47 PM CDT 05/25/2019 4:00 PM CDT Becky Saab MD LAB - HEMATOLOGY ORD ERABLES [facility] [address] [place] [address] * (ABNORMAL) COMPREHENSIVE METABOLIC PANEL (05/25/2019 3:47 PM CDT) Only the most recent of5 resultswithin the time period is included. [facility] Signature Glucose 80 70 - 105 mg/dL 05/25/2019 4:21 PM [facility] Sodium 139 136 - 145 mmol/L 05/25/2019 4:21 PM [facility] Potassium 4.4 3.5 - 5.1 mmol/L 05/25/2019 4:21 PM [facility] Chloride 103 98 - 107 mmol/L 05/25/2019 4:21 PM [facility] CO2 30 23 - 31 mmol/L 05/25/2019 4:21 PM [facility] Calcium 8.9 8.4 - 10.4 mg/dL 05/25/2019 4:21 PM [facility] Anion Gap 6(L) 8 - 16 mmol/L 05/25/2019 4:21 PM [facility] BUN 17 7 - 18.7 mg/dL 05/25/2019 4:21 PM [facility] Creatinine 0.89 0.57 - 1.11 mg/dL 05/25/2019 4:21 PM [facility] Alkaline Phosphatase 295(H) 40 - 150 U/L 05/25/2019 4:21 PM [facility] ALT 62(H) 0 - 61 U/L 05/25/2019 4:21 PM [facility] AST 27 5 - 34 U/L 05/25/2019 4:21 PM [facility] Protein Total 7.0 6.4 - 8.3 gm/dL 05/25/2019 4:21 PM [facility] Albumin 3.4(L) 3.5 - 5.2 gm/dL 05/25/2019 4:21 PM [facility] Bilirubin Total 0.2 0.2 - 1.0 mg/dL 05/25/2019 4:21 PM [facility] eGFR by MDRD >60 >60 mL/min/1.7 3m2 05/25/2019 4:21 PM [facility] eGFR by MDRD >60 >60 mL/min/1.7 3m2 05/25/2019 4:21 PM [facility] Blood BLOOD SPECIMEN / Unknown Venipuncture / Unknown 05/25/2019 3:47 PM CDT 05/25/2019 4:00 PM CDT Becky Saab MD LAB - CHEMISTRY RM MOSS Performing Organization Address City/[facility]/ZIP Co de Phone Number [facility] [address] [place] [address] * IMAGING RADIOLOGY XRAY RESULTS ORDER (05/17/2019 4:26 PM CDT) Only the most recent of6 resultswithin the time period is included. Anatomical Region Laterality Modality Other Narrative 05/17/2019 4:26 PM CDT Ordered by an unspecified provider. Scanned Document IMAGING * EKG 12-LEAD (05/13/2019 10:27 AM CDT) Only the most recent of3 resultswithin the time period is included. Ventricular Rate 73 BPM [facility] Atrial Rate 73 BPM [facility] P-R Interval 120 ms [facility] QRS Duration ms 84 ms [facility] Q-T Interval ms 378 ms [facility] QTC Calculation (Bezet) 416 ms [facility] Calculated P [place] 35 degrees [facility] Calculated R Kula 37 degrees [facility] Calculated T Kula 35 degrees [facility] Interpretation EKG NORMAL SINUS RHYTHM POSSIBLE LEFT ATRIAL ENLARGEMENT BORDERLINE ECG WHEN COMPARED WITH ECG OF 17-MAR-2019 13:33, NO SIGNIFICANT CHANGE WAS FOUND Confirmed by Tanvir Loya ([id number]) on 05/13/2019 11:09:05 PM [facility] 05/13/2019 10:2 7 AM CDT 05/13/2019 11:09 PM CDT Daylin Toro MD ECG ORDERABLES [facility] * (ABNORMAL) BLOOD GASES CORD GENIA (05/12/2019 3:55 PM CDT) pH Cord Venous 7.29 7.28 - 7.40 pH 05/12/2019 4:05 PM CDT [facility] Comment:L pCO2 Cord Venous 55(H) 35 - 45 mm hg 05/12/2019 4:05 PM CDT [facility] Comment:H pO2 Cord Venous 27 22 - 33 mm hg 05/12/2019 4:05 PM CDT [facility] HCO3 Cord Venous 25(H) 22 - 24 mmol/L 05/12/2019 4:05 PM CDT [facility] BE Cord Venous -2.2 mmol/L 05/12/2019 4:05 PM CDT [facility] O2 Saturation Cord Venous 71 % 05/12/2019 4:05 PM CDT [facility] Mode Unknown 05/12/2019 4:05 PM CDT [facility] Alexandre's Test N/A 05/12/2019 4:05 PM CDT [facility] Sample Site UMB 05/12/2019 4:05 PM CDT [facility] Sample Type Venous 05/12/2019 4:05 PM CDT [facility] Motor Vehicle Assembly Supervisor ID [id number] 05/12/2019 4:05 PM CDT [facility] Blood CORD BLOOD SPECIMEN / Unknown 05/12/2019 3:55 PM CDT 05/12/2019 3:55 PM CDT Vinod Dent MD LAB - BLOOD GASES OR DERABLES [facility] [address] [phone] * GROSS + MICRO EXAM (STL) (05/12/2019 3:53 PM CDT) Only the most recent of3 resultswithin the time period is included. Case Report Surgical Pathology Report ? Case: [id number] ? Authorizing Provider: ??Celestine Álvarez MD ? Collected: ? 05/12/2019 03:53 PM ? Ordering Location: ? [facility] LDR ? Received: ?05/13/2019 06:00 AM ? Pathologist: ? Brandin Chase MD ? Specimens: ?? A) - Fallopian Tube ? B) - Fallopian Tube ? 05/16/2019 11:27 AM [facility] Final Diagnosis Fallopian tube, right, tubal ligation: --Negative for significant histopathologic abnormalities Fallopian tube, left, tubal ligation: --Negative for significant histopathologic abnormalities 05/16/2019 11:27 AM [facility] Clinical History The patient is a 39-year-old woman who underwent tubal ligation. 05/16/2019 11:27 AM [facility] Gross Description The requisition and specimen labels are identified with the patient's name, Jaycee Slater. Received in formalin specimen A, right fallopian tube , is a 1.8 cm in length x 0.8 cm in diameter segment of fallopian tube. The serosa is cowan-brown and smooth. The specimen is serially sectioned to show an unremarkable pinpoint lumen. Cementer sections are submitted in cassette A1. Received in formalin specimen B, left fallopian tube , is a 1.5 cm in length x 0.6 cm in diameter segment of fallopian tube. The serosa is cowan-brown and smooth. The specimen is serially sectioned to show an unremarkable pinpoint lumen. The specimen is entirely submitted in cassette B1. MIKKI/pasha 05/16/2019 11:27 AM T [facility] Microscopic Description Complete cross sections of both fallopian tubes are identified. 05/16/2019 11:27 AM T [facility] Disclaimer All histochemical and/or immunohistochemical results are interpreted with controls that demonstrate appropriate staining reactions before reporting results. Note on use of immunocytochemistry reagents: This test was developed and its performance characteristic determined by [facility], Department of Laboratory Medicine. It has not been cleared or approved by the U.S. Food and Drug Administration (FDA). The FDA has determined that such clearance or approval is not necessary. The test is used for clinical purpose. It should not be regarded as investigational or for research. This laboratory is certified to perform high complexity testing. The performance characteristics of the IHC/FLORENCIA assays have been validated on formalin-fixed paraffin embedded tissues only. The assays have not been validated on decalcified tissues. Results should be interpreted with caution. 05/16/2019 11:27 AM T [facility] Embedded Images 05/16/2019 11:27 AM T [facility] Pathology/Cytology FALLOPIAN TUBE PART / Unknown 05/12/2019 3:53 PM CDT 05/13/2019 6:00 AM CDT Miscellaneous samples (specimen) FALLOPIAN TUBE PART / Unknown 05/12/2019 3:59 PM CDT 05/13/2019 6:00 AM CDT Celestine Álvarez MD LAB - PATHOLOGY/CYTO LOGY ORDERABLES Performing Organization Address [facility] Co de Phone Number [facility] [address] [place] [address] * Neuraxial Block (05/12/2019 3:31 PM CDT) Narrative Ayan Reynaga APRN-EGG SETTER - 05/12/2019 3:31 PM CDT Ayan Reynaga APRN-CRNA ? 05/12/2019 ??3:33 PM Neuraxial Block Note ?? Pre-Procedure: ?? Procedure Name: ??Neuraxial Block Patient Location: ??OB Indications: ??surgical anesthesia Pre-Anesthetic Checklist: ??Patient identified, IV Checked, Risks and benefits discussed, Surgical consent verified, Monitors and equipment, Site examined, Pre-op evaluation done, Time-out performed, Informed consent obtained, Questions answered/anesthesia questions answered and Allergies reviewed Anticoagulation/ Anti-thrombosis status confirmed? ??Yes Monitors: ??BP, continuous pluse ox, EKG and End tidal CO2 Patient Condition: ??awake Patient Sedated? ??No Procedure: ?? Block Type: ??Spinal Prep: ??Betadine Sterile Field: ??mask, cap/hat, sterile established and sterile gloves Approach: ??midline Skin was localized? ??Yes Skin localized with: lidocaine (XYLOCAINE) 1 % injection, 1 mL Spinal Block: ?? Needle Type: ??spinal needle Needle Gauge: ??25 Placement Site: ??L4-5 Number of Attempts: ??1 CSF: ??free flow, ?? aspiration before injection Degree of difficulty: ??none Procedure Tolerance: ??tolerated well Sensory Level: ??T4 Position post procedure: ??left uterine displacement Vital Signs: ??Vital signs monitored and stable throughout. ??See anesthesia record for details., heart tones monitored and stable throughout. Staff: ?? Anesthesia Provider: ??Ayan Reynaga, [employer] AGENT-EGG SETTER ?? - ?? performed the procedure Yanira Tanner MD GENERAL ANESTH ESIA ORDERABLES * (ABNORMAL) DRUG SCREEN TOX URINE PANEL (05/12/2019 2:50 PM CDT) Only the most recent of21 resultswithin the time period is included. Pathologist [facility] Amphetamines Screen Urine Not detected Not detected 05/12/2019 3:15 PM CDT [facility] Barbiturates Screen Urine Not detected Not detected 05/12/2019 3:15 PM CDT [facility] Benzodiazepines Screen Urine Not detected Not detected 05/12/2019 3:15 PM CDT [facility] Cannabinoids Screen Urine Not detected Not detected 05/12/2019 3:15 PM CDT [facility] Cocaine Screen Urine Not detected Not detected 05/12/2019 3:15 PM CDT [facility] Fentanyl Urine Not detected Not detected 05/12/2019 3:15 PM CDT [facility] Methadone Screen Urine Detected(A) Not detected 05/12/2019 3:15 PM CDT [facility] Opiate Screen Urine Not detected Not detected 05/12/2019 3:15 PM CDT [facility] Phencyclidine Screen Urine Not detected Not detected 05/12/2019 3:15 PM CDT [facility] Urine URINE / Unknown Collection / Unknown 05/12/2019 2:50 PM CDT 05/12/2019 2:52 PM CDT Narrative [facility] - 05/12/2019 3:15 PM CDT This drug screen is designed for MEDICAL purposes only. It is not to be used for legal purposes, including but not limited to worker's comp, police investigations, occupational issues, child custody, etc. ??Any positive result is only presumptive and must be confirmed with a separate confirmatory test ordered by the physician. Drug Screening Test Cutoff Values: AMPHETAMINES ?1000 ng/mL BARBITURATES ? 200 ng/mL BENZODIAZEPINES ?200 ng/mL CANNABINOIDS(THC) ?? 50 ng/mL COCAINE ?300 ng/mL FENTANYL ? 1 ng/mL METHADONE ?300 ng/mL OPIATES ?300 ng/mL PHENCYCLIDINE(PCP) ??25 ng/mL Rain Loya MD LAB - URINE CHEMISTR Y ORDERABLES Performing Organization Address [facility]/State/ZIP Co de Phone Number [facility] [address] [phone] * PREPARE (CROSSMATCH) RBC UNIT(S), 2 Units (05/12/2019 2:00 PM CDT) Pathologist [facility] Product Code [id number] [facility] Unit Donor # [id number] [facility] Donor Type A [facility] Rh Type Unit POS [facility] Unit Status Ret'd HC BLO OD BANK LAB ABO Rh Type Unit APOS [facility] Donor Unit Expiration Date [id number] [facility] Blood Type Barcode 6200 [facility] Product Code [id number] [facility] Donor # [id number] [facility] Donor Type A [facility] Rh Type Unit POS [facility] Unit Status Ret'd [facility] ABO Rh Type Unit APOS [facility] Donor Unit Expiration Date [id number] [facility] Blood Type Barcode 6200 [facility] Blood Bank BLOOD SPECIMEN / Unknown 05/12/2019 2:00 PM CDT Rain Loya MD LAB - BLOOD BANK ORD ERABLES Performing Organization Address City/[facility]/ZIP Co de Phone Number [facility] [address] [place] [address] * TYPE + SCREEN PANEL (05/12/2019 11:02 AM CDT) Only the most recent of5 resultswithin the time period is included. ABO A 05/12/2019 11:34 AM CDT [facility] Rh Type Positive 05/12/2019 11:34 AM CDT [facility] Comment:History checked. Antibody Screen Negative 05/12/2019 11:34 AM CDT [facility] Blood Bank BLOOD SPECIMEN / Unknown Venipuncture / Unknown 05/12/2019 11:02 AM CDT 05/12/2019 11:10 AM CDT Ellen Childs MD LAB - BLOOD BANK OR DERABLES Performing Organization Address City/[facility]/ZIP Co de Phone Number [facility] [address] [place] [address] * GLUCOSE PROTEIN KETONE URINE - POINT OF CARE (05/12/2019 8:50 AM CDT) Only the most recent of20 resultswithin the time period is included. Glucose UA neg Negative [facility] Protein UA neg Negative [facility] Ketone UA neg Negative [facility] QC Verified Yes Yes [facility] POC T TESTING Urine URINE / Unknown 05/12/2019 8 :50 AM CDT Ivana Thomas [employer] AGENT-TRACK GRINDER OPERATOR LAB - POINT OF CARE ORDERABLES [facility] [address] [place] [address], [facility] [phone] * SONOGRAM - COMPLETE (05/11/2019 8:43 AM CDT) Only the most recent of9 resultswithin the time period is included. Anatomical Region Laterality Modality Other 05/11/2019 8:43 AM CDT Narrative 05/11/2019 10:35 AM CDT ? [facility] ?PHONE: ??FAX: Pat. Name: ?JAYCEE SLATER Pat. No: ?[id number] Study Date: ?? 05/11/2019 ??8:43am , Age: ? 1980, 39 Height: ? 61 in Weight: ? 175 lb LMP: ?Unknown GA by Base: ?? 36w2d ?? NEGRO: 06/06/2019 GA by US: ? 35w2d ?? NEGRO: 06/13/2019 GA Selected: ??36w2d (From Baselin) NEGRO: ?06/06/2019 Referring MD: Kimberli Galloway MD Drafting Engineer: ??Silvina Fair RDMS CPT4: ? 30989 BMI: ?33.06 Hist/Ind: ? AMA, low-risk NIPT ?Opioid dependence, on methadone ?History of LEEP ?G5 & G7: Late (36 week) PTD x 2 ?G5: Macrosomia ?History of GDM ?Class I obesity MEASUREMENTS & AGE ? GROWTH EVALUATION Measurement ??GA ? Range ? Srce %for GA Ratios ----- ---- ------- BPD ??8.4 cm 33w5d (34u8w-47y6c) Hadl BPD 4% FL/BPD 0.81 (0.71 - 0.87) HC ??32.6 cm 37w0d (52f4h-25e7v) Hadl HC ??35% FL/AC ??0.21 (0.20 - 0.24) AC ??32.9 cm 36w5d (92o2t-62k4d) Hadl AC ??74% HC/AC ??0.99 (0.92 - 1.11) FL ?? 6.8 cm 35w0d (34k2o-54y1i) Hadl FL ??15% CI ? 0.71 (0.70 - 0.86) HL ?? 6.3 cm 36w3d (46f0z-26m0f) Eron HL ??51% GA for sonogram 35w2d (14n3b-64b9o) ?? Weight Estimate: based on (BPD,HC,AC,FL) Hadlock ?Weight: 2824 gm (2412-3236gm) Had ? : 6lbs, 3oz ? Normal: 2883 gm (2163- 3604gm) Had ? Wt% ? 44% for 36w2d Heart Rate: 156 bpm Amniotic Fluid Index: 09.1cm (07.6-24.7) Q1: 4.1cm ??Q2: 2.0cm ??Q3: 1.6cm ??Q4: 1.3cm ?? EVAL, PLACENTA Presentation: cephalic Placenta: posterior:fundal Heart Rate: 156 bpm Amniotic Fluid Volume: normal Anatomy!Normal!Abnormal!Suboptimal!Prev. Seen!Comments Cranium ?! ?? x ??! ?! ?! ?! Stomach ?! ?? x ??! ?! ?! ? x ?! Kidneys ?! ?? x ??! ?! ?! ? x ?! Bladder ?! ?? x ??! ?! ?! ? x ?! CLINICAL SUMMARY Study Number: [id number] ?? A single fetus is seen in cephalic presentation. ??The measurements today are consistent with appropriate interval growth. ??The NEGRO is based on a prior ultrasound examination (confirmed). ??The amniotic fluid volume is within normal limits. IMPRESSION: Single, live, intrauterine at 36w2d ?? size is within normal limits ?? Amniotic fluid volume: within normal limits ?? No malformations seen within the limitations of ultrasound RECOMMEND: Ultrasound as clinically indicated Thank you for allowing us the opportunity to care for your patient Jaren Vázquez MD <Electronic Signature> ??05/11/2019 10:35am Kimberli Galloway MD [facility] ORDERABLES * CULTURE STREP B (05/05/2019 10:21 AM CDT) Only the most recent of2 resultswithin the time period is included. Culture Strep B Negative for beta-hemolytic Streptococcus Group B KENNY 05/08/2019 8:43 AM CDT [facility]CRO[facility] Microbiology MISCELLANEOUS SAMPLES / Unknown Collection / Unknown 05/05/2019 10:21 AM CDT 05/05/2019 10:35 AM CDT Ivana Thomas APRN-TRACK GRINDER OPERATOR LAB - MICROBIOL OGY ORDERABLES Performing Organization Address City/[facility]/ZIP Co de Phone Number [facility] MICROBIOLOGY [address] [place] [address], [facility] [phone] * (ABNORMAL) URINE MICROSCOPIC ONLY REFLEX TO CULTURE (04/17/2019 3:16 PM SOFTWARE DEVELOPER) Only the most recent of6 resultswithin the time period is included. Reflex Status Culture to follow 04/17/2019 3:57 PM SOFTWARE DEVELOPER [facility] RBC UA 0-2 None Seen, 0-2, 3-5 # /hpf 04/17/2019 3:57 PM SOFTWARE DEVELOPER [facility] WBC UA 0-5 None Seen, 0-5 # /hpf 04/17/2019 3:57 PM SOFTWARE DEVELOPER [facility] Bacteria UA None Seen None Seen 04/17/2019 3:57 PM SOFTWARE DEVELOPER [facility] Squamous Epithelial Cells 6-10(A) None Seen, 0-2, 3-5 /hpf 04/17/2019 3:57 PM SOFTWARE DEVELOPER [facility] Mucus UA 4+ /LPF 04/17/2019 3:57 PM SOFTWARE DEVELOPER [facility] Urine URINE SPECIMEN OBTAINED BY CLEAN CATCH PROCEDURE / Unknown Collection / Unknown 04/17/2019 3:16 PM SOFTWARE DEVELOPER 04/17/2019 3:26 PM SOFTWARE DEVELOPER Narrative [facility] - 04/17/2019 3:57 PM SOFTWARE DEVELOPER Dory Guadarrama MD LAB - URINALYSIS ORD ERABLES Performing Organization Address City/[facility]/ZIP Co de Phone Number [facility] [address] [place] [address] * (ABNORMAL) URINALYSIS REFLEX MICROSCOPIC REFLEX CULTURE (04/17/2019 3:16 PM SOFTWARE DEVELOPER) Only the most recent of6 resultswithin the time period is included. Color UA Liseth(A) Straw, Yellow 04/17/2019 3:31 PM SOFTWARE DEVELOPER [facility] Clarity UA Slt Cloudy(A) Clear 04/17/2019 3:31 PM SOFTWARE DEVELOPER [facility] Glucose UA Negative Negative 04/17/2019 3:31 PM SOFTWARE DEVELOPER [facility] Bilirubin UA Negative Negative 04/17/2019 3:31 PM SOFTWARE DEVELOPER [facility] Ketone UA Trace(A) Negative 04/17/2019 3:31 PM SOFTWARE DEVELOPER [facility] Specific [place] UA 1.020 1.005 - 1.030 04/17/2019 3:31 PM SOFTWARE DEVELOPER [facility] Blood UA Negative Negative 04/17/2019 3:31 PM SOFTWARE DEVELOPER [facility] pH UA 7.0 5.0 - 8.0 pH 04/17/2019 3:31 PM SOFTWARE DEVELOPER [facility] Protein UA 1+(A) Negative 04/17/2019 3:31 PM SOFTWARE DEVELOPER [facility] Urobilinogen UA 2.0(A) Negative mg/dL 04/17/2019 3:31 PM SOFTWARE DEVELOPER [facility] Nitrite UA Negative Negative 04/17/2019 3:31 PM SOFTWARE DEVELOPER [facility] Leukocyte UA 1+(A) Negative 04/17/2019 3:31 PM [facility] Urine Microscopy Urine microscopy to follow 04/17/2019 3:31 PM SOFTWARE DEVELOPER [facility] Reflex Status Culture to follow 04/17/2019 3:31 PM [facility] Urine URINE SPECIMEN OBTAINED BY CLEAN CATCH PROCEDURE / Unknown Collection / Unknown 04/17/2019 3:16 PM SOFTWARE DEVELOPER 04/17/2019 3:26 PM SOFTWARE DEVELOPER Narrative [facility] - 04/17/2019 3:31 PM SOFTWARE DEVELOPER Ascorbic Acid can cause false negative urine strip tests for blood, glucose, nitrite, and bilirubin. Dory Guadarrama MD LAB - URINALYSIS ORD ERABLES Performing Organization Address [facility] Co de Phone Number [facility] [address] [place] [address] * CULTURE URINE (04/17/2019 3:16 PM SOFTWARE DEVELOPER) Only the most recent of8 resultswithin the time period is included. Culture Urine 10,000-50,000 CFU/mL urogenital stefany KENNY 04/19/2019 6:52 AM SOFTWARE DEVELOPER [facility] Urine URINE SPECIMEN OBTAINED BY CLEAN CATCH PROCEDURE / Unknown Collection / Unknown 04/17/2019 3:16 PM SOFTWARE DEVELOPER 04/17/2019 3:26 PM SOFTWARE DEVELOPER Dory Guadarrama MD LAB - MICROBIOLOGY O RDERABLES [facility] [address] [place] [address], [facility] [phone] * CARDIOLOGY CONSULT (04/01/2019 5:08 PM SOFTWARE DEVELOPER) Ivana Thomas [employer] AGENT-TRACK GRINDER OPERATOR OUTPATIENT CONS ULT * NONSTRESS TEST (03/29/2019 5:31 PM SOFTWARE DEVELOPER) Narrative Mone Malave MD - 03/29/2019 5:31 PM SOFTWARE DEVELOPER Radha Guadarrama MD ? 04/08/2019 10:47 PM Name: ??Jaycee Slater Date of : ??1980 Today's Date: ??03/29/2019 ?NST RESULTS ([facility]OS[facility]) OBJECTIVE FINDINGS Temp: 98.1 ??F (36.7 ??C), Pulse: 73, Resp: 18, BP: 103/68 NST Indication(s): labor Uterine Irritability: No Contractions: Irregular Frequency: rare Duration (sec) Range: 60-80 Perceived Intensity: Mild OBJECTIVE FINDINGS Movement: Present Monitoring Mode: External Baseline: 130 BPM Variability: Moderate Decelerations: None Accelerations: Yes OTHER INFORMATION Dorene Schwab RN Non-Stress Test (NST) Jaycee Pendletonley [id number] 04/08/2019 10:46 PM Indications: nausea and vomiting Patient Active Problem List: ?? Supervision of high-risk ?? Methadone maintenance treatment complicating , antepartum ?? H/O delivery, currently ?? Bipolar disorder ?? H/O gestational diabetes in prior , currently ?? History of Abnormal Pap smear of cervix ?? Hx LEEP (loop electrosurgical excision procedure), cervix, ?? History of macrosomia in infant in prior , currently ?? History of delivery, currently ?? AMA (advanced maternal age) multigravida 35+ ?? Obesity complicating ?? Cystic fibrosis carrier ?? History of Uterine rupture ?? Evaluate anatomy not seen on prior sonogram ?? Uterine contractions during ?? Vaginal discharge during , antepartum ?? Dizziness ?? Nausea and vomiting during ?? Anemia affecting in third trimester Interpretation: Baseline: ??130 beats/minute reactive Variability: Moderate Contractions: ??none Decelerations: ??none Recs: Continue planned care Radha Guadarrama MD Evelyn Pontious [employer] AGENT-CNM OB GYNE ORDERABLE S * NONSTRESS TEST (03/17/2019 6:22 PM SOFTWARE DEVELOPER) Narrative Kimberli Galloway MD - 03/17/2019 6:22 PM SOFTWARE DEVELOPER Michelle Mcdaniel MD ? 03/21/2019 ??8:08 AM Name: ??Jaycee Slater Date of : ??1980 Today's Date: ??03/17/2019 ?NST RESULTS ([facility]OSH) OBJECTIVE FINDINGS , ??, ??, BP: 114/58 NST Indication(s): Other (Comment)(SOB) Uterine Irritability: No Contractions: Not present OBJECTIVE FINDINGS Movement: Present Monitoring Mode: External Baseline: 135 BPM Variability: Moderate Decelerations: None Accelerations: Yes OTHER INFORMATION 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 RN PGY1 COUPLING MACHINE OPERATOR Progress Note Indications: SOB Assessment/ Non-Stress Test ?Baseline: ??125 beats/minute mod variability ?Reactive ?Contractions: ??none ?Decelerations: ??none Michelle Mcdaniel MD 03/21/2019 8:08 AM Dory Guadarrama MD OB GYNE ORDERABLES * RESPIRATORY PATHOGEN PANEL BY PCR (03/17/2019 5:07 PM SOFTWARE DEVELOPER) Adenovirus PCR Not detected Not detected, Invalid, Indeterminate 03/17/2019 9:47 PM SOFTWARE DEVELOPER [facility] Coronavirus PCR Not detected Not detected, Invalid, Indeterminate 03/17/2019 9:47 PM SOFTWARE DEVELOPER [facility] Human Metapneumovirus PCR Not detected Not detected, Invalid, Indeterminate 03/17/2019 9:47 PM SOFTWARE DEVELOPER [facility] Human Rhinovirus/Entero virus PCR Not detected Not detected, Invalid, Indeterminate 03/17/2019 9:47 PM SOFTWARE DEVELOPER [facility] Influenza A PCR Not detected Not detected, Equivocal, Invalid, Indeterminate 03/17/2019 9:47 PM SOFTWARE DEVELOPER [facility] Influenza B PCR Not detected Not detected, Invalid, Indeterminate 03/17/2019 9:47 PM SOFTWARE DEVELOPER [facility] Parainfluenza Virus 1 PCR Not detected Not detected, Invalid, Indeterminate 03/17/2019 9:47 PM [facility] Parainfluenza Virus 2 PCR Not detected Not detected, Invalid, Indeterminate 03/17/2019 9:47 PM [facility] Parainfluenza Virus 3 PCR Not detected Not detected, Invalid, Indeterminate 03/17/2019 9:47 PM SOFTWARE DEVELOPER [facility] Parainfluenza Virus 4 PCR Not detected Not detected, Invalid, Indeterminate 03/17/2019 9:47 PM SOFTWARE DEVELOPER [facility] Respiratory Syncytial Virus PCR Not detected Not detected, Invalid, Indeterminate 03/17/2019 9:47 PM [facility] Bordetella pertussis PCR Not detected Not detected, Invalid 03/17/2019 9:47 PM [facility] Chlamydia pneumoniae PCR Not detected Not detected, Invalid, Indeterminate 03/17/2019 9:47 PM [facility] Mycoplasma pneumoniae PCR Not detected Not detected, Invalid, Indeterminate 03/17/2019 9:47 PM [facility] Microbiology SPECIMEN FROM NASOPHARYNGEAL STRUCTURE / Unknown Collection / Unknown 03/17/2019 5:07 PM SOFTWARE DEVELOPER 03/17/2019 5:15 PM SOFTWARE DEVELOPER Michelle Mcdaniel MD LAB - MICROBIOLOGY O RDERABLES [facility] [address] [place] [address], [facility] [phone] * CT ANGIO CHEST PULM EMBOLISM (03/17/2019 4:10 PM SOFTWARE DEVELOPER) Anatomical Region Laterality Modality Chest Computed Tomogra phy 03/17/2019 4:12 PM SOFTWARE DEVELOPER Impressions 03/17/2019 4:14 PM SOFTWARE DEVELOPER No evidence for pulmonary embolism. Dependent atelectasis. No focal infiltrates. Reading Radiologist: Pascual Chacon MD on 03/17/2019 at 4:14 PM Narrative 03/17/2019 4:[address] Chest Angiography with IV contrast INDICATION: Dyspnea. Shortness of breath. Patient . TECHNIQUE: Thin section helical images were obtained from the lung apices through the lung bases after bolus administration of IV contrast. Sagittal and coronal reconstructions were performed. MIP reformats were created. Contrast: ??80 cc of Isovue-370 was utilized. FINDINGS: ?? The visualized bony structures are unremarkable. There is dependent atelectasis. ?? There is no focal consolidation. ?? There is no pleural effusion. ?? There is no pneumothorax. ?? There are no suspicious pulmonary nodules. ?? The central airways are normal in caliber. The thyroid gland is unremarkable. ?? There is no axillary adenopathy. There is no mediastinal adenopathy. ?? There is no hilar adenopathy. Interrogation of the pulmonary arteries in multiple planes shows no evidence for pulmonary embolism. ?? The aorta is normal in caliber with no evidence for aneurysm or dissection. ?? The heart is normal in size. There is no evidence for right heart failure. The upper abdominal structures are unremarkable. Procedure Note Pascual Chacon MD - 03/17/2019 CT Chest Angiography with IV contrast INDICATION: Dyspnea. Shortness of breath. Patient . TECHNIQUE: Thin section helical images were obtained from the lung apices through the lung bases after bolus administration of IV contrast. Sagittal and coronal reconstructions were performed. MIP reformats were created. Contrast: 80 cc of Isovue-370 was utilized. FINDINGS: The visualized bony structures are unremarkable. There is dependent atelectasis. There is no focal consolidation. There is no pleural effusion. There is no pneumothorax. There are no suspicious pulmonary nodules. The central airways are normal in caliber. The thyroid gland is unremarkable. There is no axillary adenopathy. There is no mediastinal adenopathy. There is no hilar adenopathy. Interrogation of the pulmonary arteries in multiple planes shows no evidence for pulmonary embolism. The aorta is normal in caliber with no evidence for aneurysm or dissection. The heart is normal in size. There is no evidence for right heart failure. The upper abdominal structures are unremarkable. IMPRESSION No evidence for pulmonary embolism. Dependent atelectasis. No focal infiltrates. Reading Radiologist: Pascual Chacon MD on 03/17/2019 at 4:14 PM Michelle Mcdaniel MD CT ORDERABLES * ECHOCARDIOGRAM 2D WITH DOPPLER (03/17/2019 12:36 PM SOFTWARE DEVELOPER) 03/17/2019 12:3 6 PM SOFTWARE DEVELOPER [facility] CARDIOLOGY - 03/17/2019 2:38 PM SOFTWARE DEVELOPER [address] [address] Transthoracic Echocardiogram 2D, M-mode, Doppler, and Color Doppler Patient: JAYCEE SLATER MR number: [id number] Height: 61 in Weight: 201.5 lb BSA: 1.9 m?? Study date: 17-Mar-2019 : 1980 Age: 39 years Gender: Female Race: Allergies: CODEINE, PENICILLINS, NAPROXEN, KETOROLAC Drafting Engineer: ??Justine Holder RDCS Referring Physician: ??Kinga Ngo MD Reading Physician: ??Deobrah Thibodeaux DO Summary: - ??Clinical question: - ??Shortness of breath - ??Left ventricle: - ??Systolic function was normal. Ejection fraction was estimated to be 70 %. - ??There were no regional wall motion abnormalities. - ??Wall thickness was normal. - ??Right ventricle: - ??The size was normal. - ??Systolic function was normal. Indications: Shortness of breath Procedure: The procedure was performed at the bedside. This was a routine study. The transthoracic approach was used. The study included complete 2D imaging, M-mode, complete spectral Doppler, and color Doppler. Systolic blood pressure was 107 mmHg. Diastolic blood pressure was 57 mmHg. Left ventricle: Size was normal. Systolic function was normal. Ejection fraction was estimated to be 70 %. There were no regional wall motion abnormalities. Wall thickness was normal. Doppler: Left ventricular diastolic function parameters were normal. Aortic valve: The valve was trileaflet. Leaflets exhibited normal thickness and normal cuspal separation. Doppler: There was no stenosis. There was no regurgitation. Aorta: The root exhibited normal size. Mitral valve: Valve structure was normal. There was normal leaflet separation. Doppler: The transmitral velocity was within the normal range. There was no evidence for stenosis. There was no regurgitation. Left atrium: Size was normal. Right ventricle: The size was normal. Systolic function was normal. Wall thickness was normal. Pulmonic valve: Leaflets exhibited normal thickness, no calcification, and normal cuspal separation. Doppler: There was no regurgitation. Pulmonary artery: The size was normal. Doppler: The tricuspid jet envelope definition was inadequate for estimation of RV systolic pressure. Tricuspid valve: The valve structure was normal. There was normal leaflet separation. Doppler: The transtricuspid velocity was within the normal range. There was no evidence for tricuspid stenosis. There was no regurgitation. Right atrium: Size was normal. Systemic veins: IVC: The inferior vena cava was normal in size. Pericardium: The pericardium was normal in appearance. Measurement tables Other echo measurements (Reference normals) Estimated CVP ?? 3 mmHg ?? (--) System measurement tables 2D Ao Diam: 2.9 cm LVOT Diam: 2 cm LA Diam: 3.5 cm LAAs A2C: 14.4 cm2 LAAs A4C: 11.1 cm2 LAESV A-L A2C: 36.7 ml LAESV A-L A4C: 23 ml LAESV Index (A-L): 15.8 ml/m2 LAESV MOD A2C: 34.5 ml LAESV MOD A4C: 22.1 ml LAESV(A-L): 30 ml LALs A2C: 4.8 cm IVSd: 0.8 cm LVIDd: 4.5 cm LVIDs: 2.4 cm LVPWd: 0.9 cm CW AV VTI: 40.7 cm AV Vmax: 1.8 m/s AV Vmean: 1.2 m/s AV maxP.6 mmHg AV meanP.1 mmHg PV Vmax: 1.2 m/s PV maxP.8 mmHg MM TAPSE: 0 PW MILTON (VTI): 1.9 cm2 MILTON Vmax: 1.8 cm2 LVOT VTI: 25.2 cm LVOT Vmax: 1 m/s LVOT Vmean: 0.7 m/s LVOT maxP.4 mmHg LVOT meanP.3 mmHg MV E/A Ratio: 1.4 LATERAL E': 0.1 m/s LATERAL E/E': 7.4 SEPTAL E/E': 10 Prepared and signed by Deborah Thibodeaux DO Signed 17-Mar-2019 14:37:48 Procedure Note Deborah Thibodeaux DO - 03/17/[address] [place] [address] Transthoracic Echocardiogram 2D, M-mode, Doppler, and Color Doppler Patient: JAYCEE SLATER MR number: [id number] Height: 61 in Weight: 201.5 lb BSA: 1.9 m?? Study date: 17-Mar-2019 : 1980 Age: 39 years Gender: Female Race: Allergies: CODEINE, PENICILLINS, NAPROXEN, KETOROLAC Drafting Engineer: Justine Holder RDCS Referring Physician: Kinga Ngo MD Reading Physician: Deborah Thibodeaux, Summary: - Clinical question: - Shortness of breath - Left ventricle: - Systolic function was normal. Ejection fraction was estimated to be 70 %. - There were no regional wall motion abnormalities. - Wall thickness was normal. - Right ventricle: - The size was normal. - Systolic function was normal. Indications: Shortness of breath Procedure: The procedure was performed at the bedside. This was a routine study. The transthoracic approach was used. The study included complete 2D imaging, M-mode, complete spectral Doppler, and color Doppler. Systolic blood pressure was 107 mmHg. Diastolic blood pressure was 57 mmHg. Left ventricle: Size was normal. Systolic function was normal. Ejection fraction was estimated to be 70 %. There were no regional wall motion abnormalities. Wall thickness was normal. Doppler: Left ventricular diastolic function parameters were normal. Aortic valve: The valve was trileaflet. Leaflets exhibited normal thickness and normal cuspal separation. Doppler: There was no stenosis. There was no regurgitation. Aorta: The root exhibited normal size. Mitral valve: Valve structure was normal. There was normal leaflet separation. Doppler: The transmitral velocity was within the normal range. There was no evidence for stenosis. There was no regurgitation. Left atrium: Size was normal. Right ventricle: The size was normal. Systolic function was normal. Wall thickness was normal. Pulmonic valve: Leaflets exhibited normal thickness, no calcification, and normal cuspal separation. Doppler: There was no regurgitation. Pulmonary artery: The size was normal. Doppler: The tricuspid jet envelope definition was inadequate for estimation of RV systolic pressure. Tricuspid valve: The valve structure was normal. There was normal leaflet separation. Doppler: The transtricuspid velocity was within the normal range. There was no evidence for tricuspid stenosis. There was no regurgitation. Right atrium: Size was normal. Systemic veins: IVC: The inferior vena cava was normal in size. Pericardium: The pericardium was normal in appearance. Measurement tables Other echo measurements (Reference normals) Estimated CVP 3 mmHg (--) System measurement tables 2D Ao Diam: 2.9 cm LVOT Diam: 2 cm LA Diam: 3.5 cm LAAs A2C: 14.4 cm2 LAAs A4C: 11.1 cm2 LAESV A-L A2C: 36.7 ml LAESV A-L A4C: 23 ml LAESV Index (A-L): 15.8 ml/m2 LAESV MOD A2C: 34.5 ml LAESV MOD A4C: 22.1 ml LAESV(A-L): 30 ml LALs A2C: 4.8 cm IVSd: 0.8 cm LVIDd: 4.5 cm LVIDs: 2.4 cm LVPWd: 0.9 cm CW AV VTI: 40.7 cm AV Vmax: 1.8 m/s AV Vmean: 1.2 m/s AV maxP.6 mmHg AV meanP.1 mmHg PV Vmax: 1.2 m/s PV maxP.8 mmHg MM TAPSE: 0 PW MILTON (VTI): 1.9 cm2 MILTON Vmax: 1.8 cm2 LVOT VTI: 25.2 cm LVOT Vmax: 1 m/s LVOT Vmean: 0.7 m/s LVOT maxP.4 mmHg LVOT meanP.3 mmHg MV E/A Ratio: 1.4 LATERAL E': 0.1 m/s LATERAL E/E': 7.4 SEPTAL E/E': 10 Prepared and signed by Deborah Thibodeaux DO Signed 17-Mar-2019 14:37:48 Kinga Ngo MD ECHO ORDERABLES [facility] [address] [place] [address] * XR CHEST 1VW PORTABLE (03/17/2019 12:25 PM SOFTWARE DEVELOPER) Anatomical Region Laterality Modality Chest Radiographic Daniella ging 03/17/2019 1:23 PM SOFTWARE DEVELOPER Impressions 03/17/2019 1:23 PM SOFTWARE DEVELOPER Clear lungs. Reading Radiologist: Ted Schulte MD on 03/17/2019 at 1:23 PM Narrative 03/17/2019 1:23 PM SOFTWARE DEVELOPER Chest x-ray single view. HISTORY: Vomiting. Single view of the chest shows normal heart size with normal vessels. Lungs are clear. The abdomen is shielded. Procedure Note Ted Schulte MD - 03/17/2019 Chest x-ray single view. HISTORY: Vomiting. Single view of the chest shows normal heart size with normal vessels. Lungs are clear. The abdomen is shielded. IMPRESSION Clear lungs. Reading Radiologist: eTd Schulte MD on 03/17/2019 at 1:23 PM Michelle Mcdaniel MD DIAGNOSTIC IMAGING O RDERABLES * TROPONIN I (03/17/2019 11:42 AM SOFTWARE DEVELOPER) Troponin I <0.010 <0.038 ng/mL 03/17/2019 12:26 PM SOFTWARE DEVELOPER [facility] Blood BLOOD SPECIMEN / Unknown Venipuncture / Unknown 03/17/2019 11:42 AM SOFTWARE DEVELOPER 03/17/2019 11:52 AM SOFTWARE DEVELOPER Michelle Mcdaniel MD LAB - CHEMISTRY RM MOSS [facility] Organization Address City/State/[facility] Co de Phone Number [facility] [address] [place] [address] * B-TYPE NATRIURETIC PEPTIDE (03/17/2019 11:42 AM SOFTWARE DEVELOPER) BNP 22 <=100 pg/mL 03/17/2019 2:38 PM SOFTWARE DEVELOPER [facility] Blood BLOOD SPECIMEN / Unknown Venipuncture / Unknown 03/17/2019 11:42 AM SOFTWARE DEVELOPER 03/17/2019 11:52 AM SOFTWARE DEVELOPER Narrative [facility] - 03/17/2019 2:38 PM SOFTWARE DEVELOPER A cutoff of 100 pg/mL has been demonstrated to provide the maximal combination of sensitivity, specificity, and negative predictive value for contributing to the diagnosis of congestive heart failure (CHF) only. ??A B-Type Natriuretic Peptide (BNP) value greater than or equal to 100 pg/mL is consistent with a diagnosis of CHF in the appropriate clinical setting. ??False positive results are more common in females greater than 75 years of age. ??Blood concentrations of natriuretic peptides may also be elevated in patients with myocardial infarction and in patients who are candidates for or are undergoing renal dialysis. Daylin Cardona MD LAB - CHEMISTRY OR DERABLES Performing Organization Address [facility] Co de Phone Number [facility] [address] [place] [address] [phone] * PHOSPHORUS BLOOD (03/17/2019 11:42 AM SOFTWARE DEVELOPER) Phosphorus 3.9 2.3 - 4.7 mg/dL 03/17/2019 12:21 PM SOFTWARE DEVELOPER [facility] Blood BLOOD SPECIMEN / Unknown Venipuncture / Unknown 03/17/2019 11:42 AM SOFTWARE DEVELOPER 03/17/2019 11:52 AM SOFTWARE DEVELOPER Michelle Mcdaniel MD LAB - CHEMISTRY RM MOSS Performing Organization Address [facility] de Phone Number [facility] [address] [place] [id number] * MAGNESIUM BLOOD (03/17/2019 11:42 AM SOFTWARE DEVELOPER) Magnesium 1.9 1.6 - 2.6 mg/dL 03/17/2019 12:21 PM SOFTWARE DEVELOPER [facility] Blood BLOOD SPECIMEN / Unknown Venipuncture / Unknown 03/17/2019 11:42 AM SOFTWARE DEVELOPER 03/17/2019 11:52 AM SOFTWARE DEVELOPER Michelle Mcdaniel MD LAB - CHEMISTRY RM MOSS Performing Organization Address [facility] de Phone Number [facility] [address] [place] [address] * CK BLOOD (03/17/2019 11:42 AM SOFTWARE DEVELOPER) CK 30 29 - 168 U/L 03/17/2019 12:21 PM SOFTWARE DEVELOPER [facility] Blood BLOOD SPECIMEN / Unknown Venipuncture / Unknown 03/17/2019 11:42 AM SOFTWARE DEVELOPER 03/17/2019 11:52 AM SOFTWARE DEVELOPER Michelle Mcdaniel MD LAB - CHEMISTRY RM MOSS Performing Organization Address [facility] Co de Phone Number [facility] [address] [place] [address] * (ABNORMAL) TSH (03/17/2019 11:42 AM SOFTWARE DEVELOPER) TSH 5.2847(H) 0.35 - 4.94 uIU/mL 03/17/2019 1:11 PM SOFTWARE DEVELOPER [facility] Blood BLOOD SPECIMEN / Unknown Venipuncture / Unknown 03/17/2019 11:42 AM SOFTWARE DEVELOPER 03/17/2019 11:52 AM SOFTWARE DEVELOPER Michelle Mcdaniel MD LAB - CHEMISTRY RM MOSS Performing Organization Address [facility] Co de Phone Number [facility] [address] [place] [address] * T4 FREE (03/17/2019 11:42 AM SOFTWARE DEVELOPER) Pathologist [facility] T4 Free 0.71 0.70 - 1.48 ng/dL 03/17/2019 2:52 PM SOFTWARE DEVELOPER [facility] Blood BLOOD SPECIMEN / Unknown Venipuncture / Unknown 03/17/2019 11:42 AM SOFTWARE DEVELOPER 03/17/2019 11:52 AM SOFTWARE DEVELOPER Daylin Cardona MD LAB - CHEMISTRY OR DERABLES Performing Organization Address [facility] Co de Phone Number [facility] [address] [place] [address] * NONSTRESS TEST (03/10/2019 5:10 PM SOFTWARE DEVELOPER) Narrative Ponleslye, Evelyn, FOUR H [employer] AGENT-CNM - 03/10/2019 5:10 PM SOFTWARE DEVELOPER Dipika Perez RN ? 03/10/2019 ??5:11 PM Name: ??Jaycee Janelle Padma Date of : ??1980 Today's Date: ??03/10/2019 ?NST RESULTS ([facility]) OBJECTIVE FINDINGS Temp: 98.1 ??F (36.7 ??C), Pulse: 76, Resp: 18, BP: 109/62 NST Indication(s): Other (Comment)(dizzy) Uterine Irritability: No Contractions: Not present OBJECTIVE FINDINGS Movement: Present Monitoring Mode: External Baseline: 130 BPM Variability: Moderate Decelerations: None Accelerations: Yes OTHER INFORMATION Dipika Perez, RN Evelyn Altman [employer] AGENT-CNM OB GYNE ORDERABLE S * SYPHILIS ANTIBODY CASCADING REFLEX (03/10/2019 1:24 PM SOFTWARE DEVELOPER) Only the most recent of2 resultswithin the time period is included. Treponema pallidum Antibody Non Reactive Non Reactive 03/10/2019 3:02 PM SOFTWARE DEVELOPER [facility] Comment: No Laboratory evidence of syphilis infection. ?? Note: ??Circulating antibodies may be low or undetectable in early infection. ??If recent exposure is suspected, re-draw sample in 2-4 weeks and repeat testing. Blood BLOOD SPECIMEN / Unknown Venipuncture / Unknown 03/10/2019 1:24 PM SOFTWARE DEVELOPER 03/10/2019 1:50 PM SOFTWARE DEVELOPER Ivana Thomas [employer] AGENT-[facility] LAB - SEROLOGY ORDERABLES Performing Organization Address [facility] de Phone Number [facility] [address] [place], [place] [phone] * HIV-1 HIV-2 ANTIBODY + HIV P24 AG PANEL (03/10/2019 1:24 PM SOFTWARE DEVELOPER) Only the most recent of3 resultswithin the time period is included. HIV1/2 Ab + P24 Ag Non Reactive Non Reactive 03/10/2019 2:57 PM SOFTWARE DEVELOPER [facility] Blood BLOOD SPECIMEN / Unknown Venipuncture / Unknown 03/10/2019 1:24 PM SOFTWARE DEVELOPER 03/10/2019 1:49 PM SOFTWARE DEVELOPER Narrative [facility] - 03/10/2019 2:57 PM SOFTWARE DEVELOPER No Laboratory evidence of HIV infection. Ivana Thomas FOUR H CLUB AGENT-TRACK GRINDER OPERATOR LAB - CHEMISTRY ORDERABLES Performing Organization Address [facility] Co de Phone Number [facility] [address] [place] [phone] * GLUCOSE CHALLENGE (03/10/2019 1:24 PM SOFTWARE DEVELOPER) Only the most recent of2 resultswithin the time period is included. Glucose Challenge 104 64 - 140 mg/dL 03/10/2019 4:13 PM SOFTWARE DEVELOPER [facility] Glucose Challenge Time 1324 03/10/2019 4:13 PM [facility] Blood BLOOD SPECIMEN / Unknown Venipuncture / Unknown 03/10/2019 1:24 PM SOFTWARE DEVELOPER 03/10/2019 1:49 PM SOFTWARE DEVELOPER Ivana Thomas FOUR H CLUB AGENT-TRACK GRINDER OPERATOR LAB - CHEMISTRY ORDERABLES Performing Organization Address [facility] de Phone Number [facility] [address] [place], [place] [phone] * (ABNORMAL) IRON + TRANSFERRIN PANEL (03/10/2019 1:24 PM SOFTWARE DEVELOPER) Only the most recent of2 resultswithin the time period is included. Iron 48(L) 50 - 170 ug/dL 03/10/2019 5:02 PM [facility] Transferrin 435(H) 180 - 382 mg/dL 03/10/2019 5:02 PM [facility] TIBC Calculated 544(H) 240 - 450 ug/ml 03/10/2019 5:02 PM [facility] Iron Saturation % 9(L) 20 - 50 % 03/10/2019 5:02 PM [facility] Blood BLOOD SPECIMEN / Unknown Venipuncture / Unknown 03/10/2019 1:24 PM SOFTWARE DEVELOPER 03/10/2019 1:49 PM SOFTWARE DEVELOPER Palak Oreilly FOUR H CLUB AGENT-TRACK GRINDER OPERATOR LAB - MOLD CARRIER RY ORDERABLES Performing Organization Address [facility] Co de Phone Number [facility] [address] [place] [address] * FERRITIN (03/10/2019 1:24 PM SOFTWARE DEVELOPER) Only the most recent of3 resultswithin the time period is included. Ferritin 6 5 - 204 ng/mL 03/10/2019 5:22 PM [facility] Blood BLOOD SPECIMEN / Unknown Venipuncture / Unknown 03/10/2019 1:24 PM SOFTWARE DEVELOPER 03/10/2019 1:49 PM SOFTWARE DEVELOPER Palak Oreilly APRN-[facility] LAB - MOLD CARRIER RY ORDERABLES Performing Organization Address [facility] Co de Phone Number [facility] [address] [place] [address] * STREP A SCREEN DIRECT W RFLX STREP A CULTURE (03/10/2019 1:12 PM SOFTWARE DEVELOPER) Strep A Rapid Negative Negative 03/10/2019 2:17 PM SOFTWARE DEVELOPER [facility] Microbiology ENTIRE THROAT (SURFACE REGION OF NECK) / Unknown Collection / Unknown 03/10/2019 1:12 PM SOFTWARE DEVELOPER 03/10/2019 1:52 PM SOFTWARE DEVELOPER Narrative [facility] - 03/10/2019 2:17 PM SOFTWARE DEVELOPER Test has reflexed to a Strep A culture. Ivana Thomas FOUR H CLUB AGENT-[facility] LAB - MICROBIOL OGY ORDERABLES Performing Organization Address [facility] Co de Phone Number [facility] [address] [place] [address] * CULTURE STREP GROUP A (03/10/2019 1:12 PM SOFTWARE DEVELOPER) Culture Negative for beta-hemolytic Streptococcus Group A KENNY 03/12/2019 7:47 AM SOFTWARE DEVELOPER [facility] Microbiology ENTIRE THROAT (SURFACE REGION OF NECK) / Unknown Collection / Unknown 03/10/2019 1:12 PM SOFTWARE DEVELOPER 03/10/2019 1:52 PM SOFTWARE DEVELOPER Ivana Thomas APRN-TRACK GRINDER OPERATOR LAB - MICROBIOL OGY ORDERABLES Performing Organization Address [facility] Co de Phone Number [facility] [address] [place] [address], [facility] [phone] * SONOGRAM - TRANSVAGINAL (03/10/2019 12:29 PM SOFTWARE DEVELOPER) Only the most recent of3 resultswithin the time period is included. Anatomical Region Laterality Modality Other 03/10/2019 12:2 9 PM SOFTWARE DEVELOPER Narrative 03/10/2019 3:24 PM SOFTWARE DEVELOPER ? [facility] ?PHONE: ??FAX: Pat. Name: ?JAYCEE SLATER Pat. No: ?[id number] Study Date: ?? 03/10/2019 ??12:29pm , Age: ? 1980, 39 Height: ? 61 in Weight: ? 175 lb LMP: ?Unknown GA by Base: ?? 27w3d ?? NEGRO: 06/06/2019 GA Selected: ??27w3d (From Baselin) NEGRO: ?06/06/2019 Referring MD: Kimberli Galloway MD Drafting Engineer: ??Silvina Fair RDMS CPT4: ? 11815,50339 BMI: ?33.06 Hist/Ind: ? Incomplete anatomic survey ?AMA, low-risk NIPT ?Opioid dependence, on methadone ?History of LEEP ?G5 & G7: Late (36 week) PTD x 2 ?G5: Macrosomia ?History of GDM ?Class I obesity Cervix: ??Length: 3.3 cm ??Approach: transvaginal ??Funneling: not present Heart Rate: 129 bpm Amniotic Fluid Index: 03.7cm (Deepest Pocket) EVAL, PLACENTA Presentation: cephalic Placenta: posterior Heart Rate: 129 bpm Amniotic Fluid Volume: normal CLINICAL SUMMARY Study Number: 7 ?? A ghosh fetus is identified in cephalic presentation. ??The placenta is posterior. The amniotic fluid volume is within normal ?? IMPRESSION: Single, live, IUP at 27w3d ?? normal amniotic fluid volume Reassuring cervical length RECOMMEND: Follow up ultrasound in 2 weeks for growth Serial cervical length measurement is no longer needed Sent to [facility] for evaluation of persistent nausea and vomiting Thank you for allowing us the opportunity to care for your patient. Kimberli Galloway MD <Electronic Signature> ??03/10/2019 03:24pm Kimberli Galloway MD [facility] ORDERABLES * KETONES URINE - POINT OF CARE (03/06/2019 1:07 PM SOFTWARE DEVELOPER) Ketone UA neg Negative [facility] POCT TESTING QC Verified Yes Yes [facility] P[facility] T TESTING Urine URINE / Unknown 03/06/2019 1 :07 PM SOFTWARE DEVELOPER Becky Saab MD LAB - POINT OF CARE ORDERABLES Performing Organization Address City/[facility] Co de Phone Number [facility] POCT TESTING [address] [place] [phone], [facility] [phone] * CHLAMYDIA + GC AMPLIFIED PROBE (STL) (02/26/2019 1:24 PM SOFTWARE DEVELOPER) Only the most recent of2 resultswithin the time period is included. [facility] Chlamydia Amplified Probe Negative Negative 02/28/2019 1:54 PM SOFTWARE DEVELOPER [facility] GC Amplified Probe Negative Negative 02/28/2019 1:54 PM SOFTWARE DEVELOPER [facility] Microbiology ENTIRE ENDOCERVIX / Unknown Collection / Unknown 02/26/2019 1:24 PM SOFTWARE DEVELOPER 02/26/2019 1:31 PM SOFTWARE DEVELOPER Narrative [facility] - 02/28/2019 1:54 PM SOFTWARE DEVELOPER Results based on detection/no detection of ribosomal RNA by amplified method. Dory Guadarrama MD LAB - MICROBIOLOGY O RDERAHILDA Performing Organization Address [facility] Co de Phone Number [facility] [address] [place] [phone], [facility] [phone] * TRICHOMONAS RAPID TEST (02/26/2019 1:24 PM SOFTWARE DEVELOPER) Only the most recent of2 resultswithin the time period is included. [facility] Trichomonas Rapid Test Negative Negative 02/26/2019 1:55 PM SOFTWARE DEVELOPER [facility] Microbiology VAGINAL SWAB / Unknown Collection / Unknown 02/26/2019 1:24 PM SOFTWARE DEVELOPER 02/26/2019 1:31 PM SOFTWARE DEVELOPER Dory Guadarrama MD LAB - MICROBIOLOGY O RDERAHILDA Performing Organization Address [facility]/ZIP Co de Phone Number [facility] [address] [place] [phone] * TRICHOMONAS VAGINALIS AMPLIFIED PROBE (12/30/2018 10:46 AM SOFTWARE DEVELOPER) Trichomonas vaginalis Amplified Probe Negative Negative 12/31/2018 8:15 AM SOFTWARE DEVELOPER [facility] Other URINE / Unknown Collection / Unknown 12/30/2018 10:46 AM SOFTWARE DEVELOPER 12/30/2018 11:08 AM SOFTWARE DEVELOPER Narrative [facility] - 12/31/2018 8:15 AM SOFTWARE DEVELOPER This test was developed and its performance characteristics determined by the [facility] Microbiology Laboratory, [facility]. Urine specimens tested by the [facility] have not been cleared or approved by the U.S. Food and Drug Administration (FDA). The laboratory is regulated under the Clinical Laboratory Improvement Amendments (CLIA) as qualified to perform high-complexity testing. This test is used for clinical purposes. It should not be regarded as investigational or for research. Results based on detection/no detection of ribosomal RNA by amplified method. Helen Zurita APRNTuneIn Twitter Dashboard LAB - MICROBIO LOGY ORDERABLES Performing Organization Address City/[facility]/ZIP Co de Phone Number [facility] [address] [place] [address], [facility] [phone] * BACTERIAL VAGINOSIS + YEAST SMEAR (12/30/2018 10:46 AM SOFTWARE DEVELOPER) Clue Cells No Clue Cells Seen No Clue Cells Seen 12/31/2018 12:22 AM SOFTWARE DEVELOPER [facility] Yeast No Yeast Seen No Yeast Seen 01/01/20 12:22 AM SOFTWARE DEVELOPER [facility] Steven Score Steven Score 0-3: Consistent with normal vaginal stefany Steven Score 0-3: Consistent with normal vaginal stefany 12/31/2018 12:22 AM SOFTWARE DEVELOPER [facility] Microbiology ENTIRE VAGINA / Unknown Collection / Unknown 12/30/2018 10:46 AM SOFTWARE DEVELOPER 12/30/2018 11:08 AM SOFTWARE DEVELOPER Helen Zurita FOUR H CLUB [facility] LAB - MICROBIO LOGY ORDERABLES Performing Organization Address City/[facility]/ZIP Co de Phone Number [facility] [address] [place] [address], [facility] [phone] * FENTANYL URINE (12/30/2018 9:39 AM SOFTWARE DEVELOPER) Only the most recent of3 resultswithin the time period is included. Fentanyl Negative ng/mL 01/12/2019 11:09 AM [facility] ([facility]) Comment:REFERENCE RANGE: NOT ESTABLISHED Norfentanyl Negative ng/mL 01/12/2019 11:09 AM [facility] ([facility]) Comment:REFERENCE RANGE: NOT ESTABLISHED Sufentanil Negative ng/mL 01/12/2019 11:09 AM [facility] ([facility]) Comment:REFERENCE RANGE: NOT ESTABLISHED Alfentanil Negative ng/mL 01/12/2019 11:09 AM [facility] ([facility]) Comment:REFERENCE RANGE: NOT ESTABLISHED Norsufentanil Negative ng/mL 01/12/2019 11:09 AM [facility] ([facility]) Comment:REFERENCE RANGE: NOT ESTABLISHED Acetyl Fentanyl Negative NEGATIVE ng/mL 01/12/2019 11:09 AM [facility] ([facility]) Acetyl Norfentanyl Negative NEGATIVE ng/mL 01/12/2019 11:09 AM [facility] ([facility]) Comment: This test was developed and its performance characteristics determined by [facility]. ??It has not been cleared or approved by the Food and Drug Administration. Urine URINE / Unknown Collection / Unknown 12/30/2018 9:39 AM SOFTWARE DEVELOPER 12/30/2018 11:06 AM SOFTWARE DEVELOPER Narrative [facility] ([facility]) - 01/12/2019 11:09 AM SOFTWARE DEVELOPER Performed at: ??01 - [employer] [address] [place] [address] ??[id number] Seismology Teacher: Yue Hess [facility], Phone: ??[phone] Helen Zurita FOUR H CLUB AGENT-TRACK GRINDER OPERATOR LAB - URINE CH EMISTRY ORDERABLES [facility] ([facility]) [address] [place] [address] * (ABNORMAL) URINALYSIS REFLEX TO MICROSCOPIC NO CULTURE (12/30/2018 9:24 AM SOFTWARE DEVELOPER) Only the most recent of2 resultswithin the time period is included. Color UA Liseth(A) Straw, Yellow 12/30/2018 10:05 AM [facility] Clarity UA Slt Cloudy(A) Clear 12/30/2018 10:05 AM [facility] Glucose UA Negative Negative 12/30/2018 10:05 AM [facility] Bilirubin UA Negative Negative 12/30/2018 10:05 AM [facility] Ketone UA Negative Negative 12/30/2018 10:05 AM [facility] Specific Meeker UA 1.024 1.005 - 1.030 12/30/2018 10:05 AM [facility] Blood UA Negative Negative 12/30/2018 10:05 AM [facility] pH UA 6.0 5.0 - 8.0 pH 12/30/2018 10:05 AM [facility] Protein UA 1+(A) Negative 12/30/2018 10:05 AM [facility] Urobilinogen UA Negative Negative mg/dL 12/30/2018 10:05 AM [facility] Nitrite UA Negative Negative 12/30/2018 10:05 AM [facility] Leukocyte UA 1+(A) Negative 12/30/2018 10:05 AM [facility] Urine Microscopy Urine microscopy to follow 12/30/2018 10:05 AM [facility] Urine URINE SPECIMEN OBTAINED BY CLEAN CATCH PROCEDURE / Unknown Collection / Unknown 12/30/2018 9:24 AM SOFTWARE DEVELOPER 12/30/2018 9:54 AM [facility] Narrative [facility] - 12/30/2018 10:05 AM [facility] Helen Zurita FOUR H CLUB AGENT-TRACK GRINDER OPERATOR LAB - URINALYS IS ORDERABLES [facility] [address] [place], [place] [phone] * (ABNORMAL) URINE MICROSCOPIC ONLY (12/30/2018 9:24 AM [facility]) Only the most recent of2 resultswithin the time period is included. RBC UA 3-5 None Seen, 0-2, 3-5 # /hpf 12/30/2018 10:26 AM [facility] WBC UA 0-5 None Seen, 0-5 # /hpf 12/30/2018 10:26 AM [facility] Hyaline Casts 0-2 None Seen, 0-2 # /lpf 12/30/2018 10:26 AM SOFTWARE DEVELOPER [facility] Bacteria UA Trace(A) None Seen 12/30/2018 10:26 AM [facility] Squamous Epithelial Cells 11-20(A) None Seen, 0-2, 3-5 /hpf 12/30/2018 10:26 AM [facility] Mucus UA 4+ /LPF 12/30/2018 10:26 AM [facility] Urine URINE SPECIMEN OBTAINED BY CLEAN CATCH PROCEDURE / Unknown Collection / Unknown 12/30/2018 9:24 AM SOFTWARE DEVELOPER 12/30/2018 9:54 AM SOFTWARE DEVELOPER Narrative [facility] - 12/30/2018 10:26 AM SOFTWARE DEVELOPER Helen Zurita [facility] LAB - URINALYS IS ORDERABLES Performing Organization Address City/[facility]/ZIP Co de Phone Number [facility] [address] [place] [address] * CHLAMYDIA + GC AMPLIFIED PROBE (11/11/2018 12:26 PM CDT) Only the most recent of2 resultswithin the time period is included. Chlamydia Amplified Probe Negative Negative 11/12/2018 8:34 AM CDT [facility] GC Amplified Probe Negative Negative 11/12/2018 8:34 AM CDT [facility] Other ENTIRE ENDOCERVIX / Unknown Collection / Unknown 11/11/2018 12:26 PM CDT 11/11/2018 12:25 PM CDT Narrative [facility] - 11/12/2018 8:34 AM CDT Results based on detection/no detection of ribosomal RNA by amplified method. Helen Zurita FOUR H CLUB [facility] LAB - MICROBIO LOGY ORDERABLES [facility] [address] [place] [address], [facility] [phone] * PAP LB HPV HR DNA (11/11/2018 12:09 PM CDT) Diagnosis Comment 11/15/2018 8:07 PM CDT [facility] ([facility]) Comment:NEGATIVE FOR INTRAEP ITHELIAL LESION OR MALIGNANCY. Specimen Adequacy Comment 019 8:07 PM CDT [facility] ([facility]) Comment: Satisfactory for evaluation. ??No endocervical component is identified. An endocervical component is not commonly seen in the patient. Performed by Comment 11/15/2018 8:07 PM CDT [facility] ([facility]) Comment:Bernarda Hutchins Interior Design Instructor (ASCP) Comment . 11/15/2018 8:07 PM CDT [facility] ([facility]) Note Comment 11/15/2018 8:07 PM CDT [facility] ([facility]) Comment: The Pap smear is a screening test designed to aid in the detection of premalignant and malignant conditions of the uterine cervix. ??It is not a diagnostic procedure and should not be used as the sole means of detecting cervical cancer. ??Both false-positive and false-negative reports do occur. Human papillomavirus High Risk Negative Negative 11/15/2018 8:07 PM CDT [facility] ([facility]) Comment: This high-risk HPV test detects thirteen high-risk types (16/18/31/33/35/39/45/51/52/56/58/59/68) without differentiation. Pathology/Cytolo gy ENTIRE ENDOCERVIX / Unknown Collection / Unknown 11/11/2018 12:09 PM CDT 11/11/2018 12:27 PM CDT [facility] ([facility]) - 11/15/2018 8:07 PM CDT Performed at: ??01 - [facility] ??[id number] Seismology Teacher: Onelia Barbosa MD, Phone: ??[phone] Performed at: ??02 - [facility] [address] ??[id number] Seismology Teacher: Onelia Barbosa MD, Phone: ??[phone] Specimen Comment: Source.............Endocervix Specimen Comment: LMP / Prev Treat...[place] / BX Specimen Comment: Other.............. Specimen Comment: No. of containers..01 ThinPrep Vial Helen Zurita FOUR H CLUB AGENT-TRACK GRINDER OPERATOR LAB - PATHOLOG Y/CYTOLOGY ORDERABLES Performing Organization Address [facility] de Phone Number [facility] [address] [place] [address] * RUBELLA ANTIBODY IGG (11/11/2018 12:07 PM CDT) Rubella Antibody 4.02 Immune >0.99 index 11/12/2018 8:12 AM CDT [facility] ([facility]) Comment: ?Non-immune ? <0.90 ?Equivocal ??0.90 - 0.99 ?Immune ? >0.99 Blood BLOOD SPECIMEN / Unknown Venipuncture / Unknown 11/11/2018 12:07 PM CDT 11/11/2018 12:56 PM CDT Narrative [facility] ([facility]) - 11/12/2018 8:12 AM CDT Performed at: ??01 - [address] ??[id number] Seismology Teacher: Neil Aviles PhD, Phone: ??[phone] Helen Zurita APRN-TRACK GRINDER OPERATOR LAB - SEROLOGY ORDERABLES Performing Organization Address [facility] Co de Phone Number [facility] ([facility]) [address] [place] [address] * HEMOGLOBIN ELECTROPHORESIS (11/11/2018 12:07 PM CDT) Hemoglobin A1 97.3 97.1 - 99.1 % 11/17/2018 12:40 PM CDT [facility] Hemoglobin F 0.0 0.0 - 2.0 % 11/17/2018 12:40 PM CDT [facility] Hemoglobin S 0.0 <=0.0 % 11/17/2018 12:40 PM CDT [facility] Hemoglobin C 0.0 <=0.0 % 11/17/2018 12:40 PM CDT [facility] Hemoglobin A2 2.7 0.9 - 2.9 % 11/17/2018 12:40 PM CDT [facility] Hemoglobin E 0.0 % 11/17/2018 12:40 PM CDT [facility] Interpretation Normal Interpretation 11/17/2018 12:40 PM CDT [facility] Blood BLOOD SPECIMEN / Unknown Venipuncture / Unknown 11/11/2018 12:07 PM CDT 11/11/2018 12:57 PM CDT Helen Zurita [facility] LAB - CHEMISTR Y ORDERABLES Performing Organization Address [facility] Co de Phone Number [facility] [address] [place] [phone] * HEMOGLOBIN A1C (11/11/2018 12:07 PM CDT) [facility] Hemoglobin A1c 5.0 4.0 - 6.1 % 11/11/2018 1:26 PM CDT [facility] Estimated Average Glucose 97 mg/dL 11/11/2018 1:26 PM CDT [facility] Blood BLOOD SPECIMEN / Unknown Venipuncture / Unknown 11/11/2018 12:07 PM CDT 11/11/2018 12:56 PM CDT Helen Zurita [facility] LAB - CHEMISTR Y ORDERABLES Performing Organization Address 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 ??This result should be interpreted in the context of the clinical indication. COMMENTS: Genetic counseling is recommended to discuss the potential clinical and/or reproductive implications of this result, as well as recommendations for testing other family members and, when applicable, this individual's partner. ??The detection rate varies with ethnicity, and the presence of a second, undetected mutation in the CF gene cannot be ruled out. Mutation Detection ??Detection rates are based on mutation Rates among Ethnic ??frequencies in patients affected with Groups ?cystic fibrosis. ??Among individuals ?with an atypical or mild presentation ?(e.g. congenital absence of the vas ?deferens, pancreatitis) detection ? rates may vary from those provided here: ? Detection Ethnicity ?Rate Ashkenazi ? 97% Congregation ? 90% (non-) -Bolivian ?69% ?73% ? 55% This interpretation is based on the clinical and family relationship information provided and the current understanding of the molecular genetics of this condition. MUTATIONS ANALYZED: G85E ?V520F ?X3660F ? 2183AA to G R117H ? G542X ?D1576U ? 2184delA R334W ? S549N ?394delTT ? 2789+5G to A R347H ? S549R ?621+1G to T ?3120+1G to A R347P ? G551D ?711+1G to T ?3659delC A455E ? R553X ?1078delT ? 3849+10kbC to T UmlbcX503 ?? R560T ?1717-1G to A ?? 3876delA NvdseP078 ?? U1570G ?? 1898+1G to A ?? 3905insT METHODS/LIMITATIONS: DNA is isolated from the sample and tested for the 32 CF mutations on the [place] Array Platform (Drippler). Regions of the CFTR gene are amplified enzymatically and subjected to a solution-phase multiplex allele-specific primer extension with subsequent hybridization to a bead array and fluorescence detection. ??Polymorphisms F508C, I506V and I507V are included in this panel to rule out false positive otncaP519 homozygotes. ??Reflex testing of 5T is included in the panel for R117H interpretation. False positive or negative results may occur for reasons that include genetic variants, blood transfusions, bone marrow transplantation, erroneous representation of family relationships or contamination of a sample with maternal cells. REFERENCES: 1. Updates on Carrier Screening for Cystic Fibrosis. (2011) ?? Am J Ob Gynecol 117(4):1228-1090 2. Chacho et al. (2004) Estefany Med 6:387-91 3. Ahmet, et al. (2002) Estefany Med 4:379-391 4. Preconception and carrier screening for cystic ?? fibrosis: (2001)ACOG.ACMG publication Results Released By: Srinath Perrin, Ph.D., Spike Machine Operator Released By: Yolanda Rich MS, [facility], Genetic Counselor Comment Comment 11/22/2018 11:08 AM CDT [facility] ([facility]) Comment: The assay provides information intended to be used for carrier screening in adults of reproductive age, as an aid in screening, and as a confirmatory test for another medically established diagnosis in newborns and children. The test is not indicated for use in diagnostic testing, pre-implantation screening, or for any stand-alone diagnostic purposes without confirmation by another medically established diagnostic product or procedure. Blood BLOOD SPECIMEN / Unknown Venipuncture / Unknown 11/11/2018 12:07 PM CDT 11/11/2018 12:56 PM CDT Narrative [facility] ([facility]) - 11/22/2018 11:08 AM CDT Performed at: ??01 - [facility] [address] [place], [place] [id number] Seismology Teacher: Oscar Angelo MD, Phone: ??[phone] Helen Zurita FOUR H CLUB AGENT-TRACK GRINDER OPERATOR LAB - HEMATOLO GY ORDERABLES [facility] ([facility]) [address] [place] [address] * HEPATITIS B SURFACE ANTIGEN W RFLX CONFIRMATION (11/11/2018 12:07 PM CDT) Pathologist [facility] HBsAg Non Reactive Non Reactive 11/11/2018 1:55 PM CDT [facility] Blood BLOOD SPECIMEN / Unknown Venipuncture / Unknown 11/11/2018 12:07 PM CDT 11/11/2018 12:57 PM CDT Helen Zurita APRN-TRACK GRINDER OPERATOR LAB - CHEMISTR Y ORDERABLES Performing Organization Address City/[facility]/ZIP Co de Phone Number [facility] [address] [place] [address] * HEPATITIS C ANTIBODY (11/11/2018 12:07 PM CDT) Only the most recent of2 resultswithin the time period is included. Pathologist [facility] HCV Antibody Screen Non Reactive Non Reactive 11/11/2018 1:55 PM CDT [facility] HCV S/C Ratio 0.19 0.00 - 0.79 11/11/2018 1:55 PM CDT [facility] Comment: Xfdeeg-bb-kctbfy ratio (S/CO) <0.80:?? Non Reactive Blood BLOOD SPECIMEN / Unknown Venipuncture / Unknown 11/11/2018 12:07 PM CDT 11/11/2018 12:56 PM CDT Narrative [facility] - 11/11/2018 1:55 PM CDT Non Reactive - Antibodies to Hepatitis C virus (HCV) were not detected, result does not exclude early acute HCV infection. Helen Zurita FOUR H CLUB AGENT-TRACK GRINDER OPERATOR LAB - CHEMISTR Y ORDERABLES [facility] [address] [place] [address] * PANORAMA TEST (11/11/2018) Pathologist [facility] Comment Genetics Low risk-Femal e Blood BLOOD SPECIMEN / Unknown Historical Provider LAB - CHEMISTRY O RDERABLES * APHERESIS/TRANSFUSION ORDER (09/06/2015 10:33 AM CDT) Narrative 09/06/2015 10:33 AM CDT Ordered by an unspecified provider. Scanned Document NURSING - VITAL SIGN S AND ASSESSMENT * (ABNORMAL) DIFFERENTIAL MANUAL (09/01/2015 7:00 AM CDT) Only the most recent of2 resultswithin the time period is included. Pathologist [facility] WBC Auto 18.3 x10E9/L 09/01/2015 8:51 AM CDT [facility] WBC Corrected 4.4 - 10.7 x10E9/L 09/01/2015 8:51 AM CDT [facility] nRBC /100 WBC 09/01/2015 8:51 AM CDT [facility] Neutrophil % Manual 76(H) 44 - 73 % 09/01/2015 8:51 AM CDT [facility] Lymphocytes % Manual 5(L) 20 - 43 % 09/01/2015 8:51 AM CDT [facility] Monocytes % Manual 3(L) 5 - 13 % 09/01/2015 8:51 AM CDT [facility] Band % Manual 16(H) 0 - 11 % 09/01/2015 8:51 AM CDT [facility] Cells Counted 100 # cells 09/01/2015 8:51 AM CDT [facility] RBC Morphology Normal 09/01/2015 8:51 AM CDT [facility] WBC Morph Normal 09/01/2015 8:51 AM CDT [facility] Platelet Estimation Normal 09/01/2015 8:51 AM CDT [facility] Blood BLOOD SPECIMEN / Unknown Venipuncture / Unknown 09/01/2015 7:00 AM CDT 09/01/2015 7:45 AM CDT Daylin Macias MD LAB - HEMATOLOGY ORDERABLES Performing Organization Address City/[facility]/ZIP Co de Phone Number [facility] [address] [place] [address] * TRANSFUSE RED BLOOD CELL UNIT(S) (09/01/2015 1:54 AM CDT) Braxton Arias MD NURSING - BLOOD PROD TRANSFUSION * PREPARE FFP UNIT(S) (08/31/2015 10:44 PM CDT) Only the most recent of2 resultswithin the time period is included. [facility] Unit Donor # [id number] 09/01/2015 8:20 AM CDT [facility] Product Code E2701 09/01/2015 8:20 AM CDT [facility] Unit Description E2701 Plasma, CPD,Thawed 09/01/2015 8:20 AM CDT [facility] Unit Status Transfused Unit 09/01/2015 8:20 AM CDT [facility] ABO Donor Type AB 09/01/2015 8:20 AM CDT [facility] Rh Type Unit POS 09/01/2015 8:20 AM CDT [facility] Miscellaneous samples (specimen) BLOOD SPECIMEN / Unknown Venipuncture / Unknown 08/31/2015 10:44 PM CDT 08/31/2015 10:46 PM CDT Braxton Arias MD LAB - BLOOD BANK ORDERABLES Performing Organization Address City/[facility]/ZIP Co de Phone Number [facility] [address] * HIV-1 HIV-2 ANTIBODY + HIV P24 AG RAPID PNL (08/31/2015 10:30 PM CDT) Only the most recent of2 resultswithin the time period is included. [facility] HIV1/2 Ab + P24 Ag Rapid Non Reactive Non Reactive 08/31/2015 11:14 PM CDT [facility] Blood BLOOD SPECIMEN / Unknown Venipuncture / Unknown 08/31/2015 10:30 PM CDT 08/31/2015 10:42 PM CDT Narrative [facility] - 08/31/2015 11:14 PM CDT No Laboratory evidence of HIV infection. Braxton Arias MD LAB - SEROLOGY O RDERABLES Performing Organization Address [facility]/ZIP Co de Phone Number [facility] [address] [place] [address] * RPR (08/31/2015 10:30 PM CDT) RPR Non Reactive Non Reactive 09/01/2015 9:29 AM CDT [facility] Blood BLOOD SPECIMEN / Unknown Venipuncture / Unknown 08/31/2015 10:30 PM CDT 08/31/2015 10:42 PM CDT Braxton Arias MD LAB - CHEMISTRY ORDERABLES Performing Organization Address [facility] de Phone Number [facility] [address] [place] [address] * (ABNORMAL) COAGULATION PANEL W D-DIMER (08/31/2015 10:30 PM CDT) PT 9.6 9.5 - 11.6 sec 08/31/2015 11:56 PM CDT [facility] INR 0.9 0.9 - 1.1 08/31/2015 11:56 PM CDT [facility] PTT 23.7 21.0 - 32.0 sec 08/31/2015 11:56 PM CDT [facility] Fibrinogen 366 200 - 400 mg/dL 08/31/2015 11:56 PM CDT [facility] D-Dimer 1.84(H) 0.17 - 0.5 mg/L FEU 08/31/2015 11:56 PM CDT [facility] Platelet Count 288 153 - 416 x10E9/L 08/31/2015 11:56 PM CDT [facility] Blood BLOOD SPECIMEN / Unknown Venipuncture / Unknown 08/31/2015 10:30 PM CDT 08/31/2015 10:41 PM CDT [facility] - 08/31/2015 11:56 PM CDT Conventional Warfarin Anticoagulant Therapy INR Reference Range: ??2.0-3.0 Intensive Warfarin Anticoagulant Therapy INR Reference Range: ? 2.5-3.5 Heparin Therapeutic Range for PTT: 47.7 - 68.6 seconds. The [employer] D-Dimer assay is intended for use as an aid in diagnosis of venous thromboembolism [(VTE): deep vein thrombosis (DVT), pulmonary embolism (PE), and disseminated intravascular coagulation (DIC)], and has received U.S. Food and Drug Administration (FDA) approval to exclude VTE in patients with low or moderate pretest probability of PE or DVT (per Wells' rules). At a clinical cut-off value 0.50 mg/L FEU, the Negative Predictive Value of this assay is 99.8% for excluding PE and 100% for excluding DVT. A very low percentage of patients with VTE may yield D-Dimer results below the cut-off value. An elevated D-Dimer result has low specificity (40.4% for PE, 35.5% for DVT) and is a poor predictor of VTE. An elevated D-Dimer result may indicate DIC in the appropriate clinical setting. Results of this test should always be interpreted in conjunction with the patient's medical history, clinical presentation, and other findings. Daylin Macias MD LAB - COAGULATION ORDERABLES Performing Organization Address City/State/[facility] Co de Phone Number [facility] [address] [place] [address] * HEPATITIS SCREEN ACUTE (08/31/2015 10:30 PM CDT) Only the most recent of2 resultswithin the time period is included. Pathologist [facility] HAV Antibody IgM Non Reactive Non Reactive 09/01/2015 1:23 AM CDT [facility] HBsAg Non Reactive Non Reactive 09/01/2015 1:23 AM CDT [facility] HBc Antibody IgM Non Reactive Non Reactive 09/01/2015 1:23 AM CDT [facility] HCV Antibody Screen Non Reactive Non Reactive 09/01/2015 1:23 AM CDT [facility] HCV S/C Ratio <0.02 0.00 - 0.79 09/01/2015 1:23 AM CDT [facility] Comment: Fddojf-zd-emdhyq ratio (S/CO) <0.80:?? Non Reactive Blood BLOOD SPECIMEN / Unknown Venipuncture / Unknown 08/31/2015 10:30 PM CDT 08/31/2015 10:42 PM CDT [facility] - 09/01/2015 1:23 AM CDT Non Reactive - Antibodies to Hepatitis C virus (HCV) were not detected, result does not exclude early acute HCV infection. Non Reactive - Antibodies to Hepatitis C virus (HCV) were not detected, result does not exclude early acute HCV infection. Braxton Arias MD LAB - CHEMISTRY ORDERABLES [facility] [address] [place] [address] * (ABNORMAL) BLOOD GASES CORD GENIA (ISTAT) (08/31/2015 10:15 PM CDT) Only the most recent of2 resultswithin the time period is included. pH Cord Venous POCT 7.28 7.28 - 7.40 pH 09/01/2015 2:12 AM [facility] pCO2 Cord Venous POCT 51(H) 35 - 45 mmHg 09/01/2015 2:12 AM [facility] pO2 Cord Venous POCT 18(L) 22 - 33 mmHg 09/01/2015 2:12 AM [facility] HCO3 Cord Arterial POCT 24 22 - 24 mmol/L 09/01/2015 2:12 AM [facility] BE Cord Venous POCT Calc -4 -6 - 2 mmol/L 09/01/2015 2:12 AM [facility] TCO2 Cord Venous POCT 25 22 - 30 mmol/L 09/01/2015 2:12 AM [facility] O2 Saturation % Cord Venous Calc POCT 21 % 09/01/2015 2:12 AM [facility] Site CORD GENIA 09/01/2015 2:12 AM [facility] Sample iSTAT CORD V 09/01/2015 2:12 AM [facility] Blood CORD BLOOD SPECIMEN / Unknown 08/31/2015 10:15 PM CDT 09/01/2015 2:12 AM CDT Bakari Lomeli MD LAB - POINT OF CARE ORDERABLES Performing Organization Address City/[facility]/ZIP Co de Phone Number [facility] [address] [place] [address] * (ABNORMAL) BLOOD GASES CORD ART (ISTAT) (08/31/2015 10:10 PM CDT) Only the most recent of2 resultswithin the time period is included. pH Cord Arterial POCT 7.22 7.20 - 7.34 pH 09/01/2015 2:12 AM CDT [facility] pCO2 Cord Arterial POCT 63.1(H) 45 - 55 mmHg 09/01/2015 2:12 AM CDT [facility] pO2 Cord Arterial POCT 10(L) 12 - 25 mmHg 09/01/2015 2:12 AM CDT [facility] HCO3 Cord Arterial POCT 26.0 15 - 29 mmol/L 09/01/2015 2:12 AM CDT [facility] BE Cord Arterial POCT -3(L) -2.9 - 8.3 mmol/L 09/01/2015 2:12 AM CDT [facility] TCO2 Cord Arterial POCT 28 mmol/L 09/01/2015 2:12 AM CDT [facility] O2 Saturation Cord Art % Calc POCT 7 % 09/01/2015 2:12 AM CDT [facility] Site CORD ART 09/01/2015 2:12 AM CDT [facility] Sample iSTAT CORD A 09/01/2015 2:12 AM CDT [facility] Blood CORD BLOOD SPECIMEN / Unknown 08/31/2015 10:10 PM CDT 09/01/2015 2:12 AM CDT Bakari Lomeli MD LAB - POINT OF CARE ORDERABLES [facility] [address] [place] [address] * NEURAXIAL BLOCK (08/31/2015 8:39 PM CDT) Narrative Mercy Dean APRN-EGG SETTER - 08/31/2015 8:39 PM CDT Mercy Dean APRN-EGG SETTER ? 08/31/2015 ??8:39 PM NEURAXIAL BLOCK Patient Location: ??OB Pre Procedure Indication: ??labor analgesia Anticoagulation /Antithrombosis Status Confirmed: Yes Preanesthetic Checklist: ??patient identified, IV checked, site marked, risks and benefits discussed, surgical consent verified, monitors and equipment checked, pre-op evaluation done, timeout performed, informed consent obtained and questions answered / anesthesia plan accepted Monitors: ??BP and Pulse Ox Patient Condition: ??awake Patient Position: ??sitting Procedure Block Performed: ??epidural Prep: ??Betadine Sterile Field: ??mask, cap/hat, sterile field established and sterile gloves Approach: ??midline Skin Numbed with: ??lidocaine 1% Epidural Needle Type: ??Tuohy Needle Gauge: 18 Needle Length: ??3.5 in Placement Site: ??L3-L4 Number of Attempts: ??1 Loss of ResistanceTechnique: ??air Loss of Resistance: ??6 cm Catheter Length at Skin: ??12 cm CSF Aspirated from Catheter: ??negative Blood Aspirated from Catheter: ??negative Test Dose: ??lidocaine 1.5% with 1 200 k epinephrine 3 ml ??at 08/31/2015 8:26 PM Test Dose Response: ??negative Local Anesthetic: ??lidocaine 2% 5 ml Epidural additive: ??fentanyl ? Events CSF return negative injection not painful no paresthesia Degree of Difficulty: ??none Position Post Procedure: ??left uterine displacement and head of bed elevated 30 degrees Vital signs monitored and stable throughout. ??See Anesthesia Intraop record for details. Block Start Time: ??08/31/2015 8:26 PM Block End Time: ??08/31/2015 8:26 PM Block Performed by: ??cassandra Dean EGG SETTER Notes: ??Called to patients room. Epidural placed without complications. Negative heme, Neg, CSF + ADELAIDA x 1 attempt. ??Pt getting comfortable Bakari Lomeli MD GENERAL ANESTHESIA O RDERABLES * CROSSMATCH RBC (08/31/2015 8:18 PM CDT) Only the most recent of4 resultswithin the time period is included. Unit Donor # [id number] 09/01/2015 8:21 AM CDT [facility] Product Code E0336 09/01/2015 8:21 AM CDT [facility] Unit Description E0336 RBC, LR, CPD>AS1 09/01/2015 8:21 AM CDT [facility] ABO Donor Type A 09/01/2015 8:21 AM CDT [facility] Rh Type Unit POS 09/01/2015 8:21 AM CDT [facility] Crossmatch Interpretation Compatible 09/01/2015 8:21 AM CDT [facility] Unit Status Transfused Unit 09/01/2015 8:21 AM CDT [facility] Miscellaneous samples (specimen) BLOOD SPECIMEN / Unknown 08/31/2015 8:18 PM CDT 08/31/2015 8:36 PM CDT Daylin Macias MD LAB - BLOOD BANK ORDERABLES Performing Organization Address [facility] Co de Phone Number [facility] [address] [place] [address] * (ABNORMAL) FIBRINOGEN ACTIVITY (08/31/2015 6:25 PM CDT) Fibrinogen 471(H) 200 - 400 mg/dL 08/31/2015 7:09 PM CDT [facility] Blood BLOOD SPECIMEN / Unknown Venipuncture / Unknown 08/31/2015 6:25 PM CDT 08/31/2015 6:36 PM CDT Gabrielle Plata MD LAB - COAGULATION OR DERABLES [facility] [address] [place] [address] * PTT (08/31/2015 6:25 PM CDT) PTT 23.0 21.0 - 32.0 sec 08/31/2015 7:09 PM CDT [facility] Blood BLOOD SPECIMEN / Unknown Venipuncture / Unknown 08/31/2015 6:25 PM CDT 08/31/2015 6:36 PM CDT Narrative [facility] - 08/31/2015 7:09 PM CDT Heparin Therapeutic Range for PTT: 47.7 - 68.6 seconds. Gabrielle Plata MD LAB - COAGULATION OR DERABLES Performing Organization Address [facility] Co de Phone Number [facility] [address] [place], [place] [id number] * (ABNORMAL) PT-INR (08/31/2015 6:25 PM CDT) PT <9.5(L) 9.5 - 11.6 sec 08/31/2015 7:10 PM CDT [facility] INR 0.9 0.9 - 1.1 08/31/2015 7:10 PM CDT [facility] Blood BLOOD SPECIMEN / Unknown Venipuncture / Unknown 08/31/2015 6:25 PM CDT 08/31/2015 6:36 PM CDT Narrative [facility] - 08/31/2015 7:10 PM CDT Conventional Warfarin Anticoagulant Therapy: INR Reference Range: ??2.0-3.0 Intensive Warfarin Anticoagulant Therapy: INR Reference Range: ? 2.5-3.5 Gabrielle Plata MD LAB - COAGULATION OR DERABLES Performing Organization Address [facility] de Phone Number [facility] [address] [place] [address] * PATHOLOGY/GENETICS HISTORICAL-ONBASE (08/31/2015) 08/31/2015 Historical Provider LAB - CHEMISTRY O RDERABLES Performing Organization Address City/[facility] Co de Phone Number [address] * LAB RESULTS ORDER (08/05/2015 1:49 AM CDT) Only the most recent of2 resultswithin the time period is included. Narrative 08/05/2015 1:49 AM CDT Ordered by an unspecified provider. Scanned Document LAB - THERAPEUTIC DR UG MONITORING ORDERABLES * (ABNORMAL) HEPATIC FUNCTION PANEL (07/18/2015 2:24 PM CDT) Alkaline Phosphatase 135(H) 38 - 126 U/L 07/18/2015 3:15 PM CDT [facility] ALT 16 12 - 78 U/L 07/18/2015 3:15 PM CDT [facility] AST 12 5 - 40 U/L 07/18/2015 3:15 PM CDT [facility] Protein Total 6.9 6.4 - 8.2 gm/dL 07/18/2015 3:15 PM CDT [facility] Albumin 2.6(L) 3.4 - 5.0 gm/dL 07/18/2015 3:15 PM CDT [facility] Bilirubin Total 0.2 0.2 - 1.0 mg/dL 07/18/2015 3:15 PM CDT [facility] Bilirubin Direct <0.1 0 - 0.3 mg/dL 07/18/2015 3:15 PM CDT [facility] Blood BLOOD SPECIMEN / Unknown Venipuncture / Unknown 07/18/2015 2:24 PM CDT 07/18/2015 2:35 PM CDT Loy Grider MD LAB - CHEMISTRY RM [facility] Organization Address City/State/[facility] Co de Phone Number [facility] [address] [place] [phone] * NEURAXIAL BLOCK (04/03/2014 10:41 AM SOFTWARE DEVELOPER) Narrative Yolanda Dean APRN-CRNA - 04/03/2014 10:41 AM SOFTWARE DEVELOPER CHRISTI Kat ? 04/03/2014 10:41 AM NEURAXIAL BLOCK Patient Location: ??OB Pre Procedure Indication: ??surgical anesthesia Anticoagulation /Antithrombosis Status Confirmed: Yes Preanesthetic Checklist: ??patient identified, IV checked, site marked, risks and benefits discussed, surgical consent verified, monitors and equipment checked, pre-op evaluation done, timeout performed, informed consent obtained and questions answered / anesthesia plan accepted Monitors: ??BP and Pulse Ox Patient Condition: ??awake Patient Position: ??sitting Procedure Block Performed: ??spinal Prep: ??Betadine Sterile Field: ??mask, cap/hat, sterile field established and sterile gloves Approach: ??midline Skin Numbed with: ??lidocaine 1% Spinal Needle Type: ??pencil-point Needle Gauge: ??25 G Needle Length: ??3.5 in Placement Site: ??L3-4 Number of Attempts: ??1 CSF: ??free flow, aspiration before injection, aspiration during injection and aspiration after injection Local Anesthetic: ??bupivacaine 0.75% in dextrose 1.8 ml Spinal Additive: ??0.2 mg ? Events CSF return injection not painful no paresthesia no other event Degree of Difficulty: ??none Position Post Procedure: ??left uterine displacement Vital signs monitored and stable throughout. ??See Anesthesia Intraop record for details. Block Start Time: ??04/03/2014 10:34 AM Block End Time: ??04/03/2014 10:35 AM Block Performed by: ??cmeyer Jaren Vázquez MD GENERAL ANESTHESIA O RDERABLES * BLOOD TYPE VERIFICATION (04/03/2014 8:57 AM SOFTWARE DEVELOPER) ABO A 04/03/2014 9:53 AM SOFTWARE DEVELOPER [facility] Rh Type Positive 04/03/2014 9:53 AM SOFTWARE DEVELOPER [facility] Miscellaneous samples (specimen) BLOOD SPECIMEN / Unknown Venipuncture / Unknown 04/03/2014 8:57 AM SOFTWARE DEVELOPER 04/03/2014 9:22 AM SOFTWARE DEVELOPER Jaren Vázquez MD LAB - BLOOD BANK ORD ERABLES [facility] [address] Care Teams Cloth Bolt Bander Relationship Specialty Start Date End Date Mario Logan MD [address] [place] [id number] PCP - General 05/24/19
--- OUTSIDE RECORDS SUMMARY | 2024-03-23 01:10 | XMS_ITS | Referral Summary ---
Author Organization [facility] Address [address] [place] [address] Care Team Providers Care Heat Sealing Machine Operator Name Role Phone Christofer Stewart MD Primary [...] 1.7 cm about 1.5 years ago in [facility] - obtain US of thyroid, labs ordered [...] cessation with goal of being tobacco free Social History Tobacco Use Types Packs/Day Years [...] on file Legal Sex Female 11:53 AM MATERIALS MGMT TECH Gender Identity Not on file Sexual Orientation [...] 07/29/2023 10:41 AM CDT Plan of Treatment Not on file Insurance [facility] [place] [id number] [facility] Advance Directives For more information, please contact: [phone] * Full Code (Latest Code Status on File) Date Activated Date Inactivated Comments 10/20/2023 12:17 PM 10/20/2023 8:58 PM Care Teams Heat Sealing Machine Operator Relationship Specialty Start Date End Date Christofer Stewart MD [address] [facility] [address] ESTRELLA A [address] [address] PCP - General Family Medicine 06/23/23
--- OUTSIDE RECORDS SUMMARY | 2024-03-23 01:10 | XMS_ITS | Clinical Summary ---
Author Organization [facility] [employer] Address [address] [place] [address] Care Team Providers Care Aircraft Assembler Name Role Phone Mario Logan MD Primary Care Provider Source Comments [facility],non-owned Affiliates and Associated Physician Practices is amultiple site organization consisting of ambulatory clinics and hospital sitesin [place], [place], [place] and [place]. This disclosure is being madepursuant to the Care Everywhere program and may not contain all information available regarding this patient. Last updated 17.[facility] [employer] Allergies Active Allergy Reactions Criticality Noted Date [...] naloxone HCl (NARCAN) 4 MG/0.1ML nasal spray [place] 1 spray into the nose as needed [...] migh t be different from the original. [id number] Problem Noted Date Diagnosed Date Non-reactive NST [...] 02/28/2014 Overview (05/05/2019): Confirmed dose-270 mg from [facility]. Scanned Into media. Previously used heroin and [...] 05/30/04: neg 2000: CRISTIAN 3 s/p LEEP [place] Evaluate anatomy not seen on prior sonogram [...] TD VACCINE 02/24/2016,10/22/2007 TDAP (7yrs+) 04/21/2019, 7,08/01/2015,2014 Family History Medical History Relation Name Comments CAD (Coronary Artery Disease) Mother Relation Name Status Comments Mother Social History Tobacco Use Types Packs/Day Years [...] Mass Index 35.9 05/25/2019 3:05 PM CDT Plan of Treatment Health Maintenance Due Date Last Done Comments LIPID TESTING 1980 MAMMOGRAM 1980 PNEUMOCOCCAL VACCINE (2 of 2 - PCV) 02/23/2017 02/24/2016 HEPATITIS B VACCINE (3 of 3 - 19+ 3-dose series) 06/10/2019 01/27/2019, 12/09/2018 PAP SMEAR 11/11/2021 11/11/2018 COVID-19 VACCINE ( - season) 2023 INFLUENZA VACCINE (#1) 2023 9, 04/05/2014, 02/22/2013 DTAP/TDAP/TD VACCINES (7 - Td or Tdap) 04/21/2029 04/21/2019, 12/07/2016, 02/24/2016, Additional history exists ZOSTER VACCINE (1 of 2) 01/29/2032 HEPATITIS C SCREENING Completed 11/11/2018 , 08/31/2015, 07/18/2015, Additional history exists HIV SCREENING Completed 03/10/2019, 10/24, 07/18/2015 HIB VACCINE Aged Out No longer eligi ble based on patient's age to complete this topic HPV VACCINE Aged Out No longer eligi ble based on patient's age to complete this topic MENINGOCOCCAL (Group B) VACCINE Aged Out No longer eligible based on patient's age to complete this topic MENINGOCOCCAL VACCINE Aged Out No jeff sandro eligible based on patient's age to complete this topic Procedures Procedure Name Priority Date/Time Associated Diagnosis Comments HIV-1 HIV-2 ANTIBODY + HIV P24 AG PANEL Routine 03/10/2019 1:24 PM PROFESSIONAL FEE CODER Supervision of high risk in second trimester (HCC) PAP LB HPV HR DNA Routine 11/11/2018 12: 09 PM CDT Cervical cancer screening HEPATITIS C ANTIBODY Routine 11/11/2018 12:07 PM CDT Supervision of high risk , antepartum (HCC) from Last 3 Months or Most Recently Relevant to Health Maintenance Results * HIV-1 HIV-2 ANTIBODY + HIV P24 AG PANEL (03/10/2019 1:24 PM PROFESSIONAL FEE CODER) HIV1/2 Ab + P24 Ag Non Reactive Non Reactive 03/10/2019 2:57 PM PROFESSIONAL FEE CODER [facility] Blood BLOOD SPECIMEN / Unknown Venipuncture / Unknown 03/10/2019 1:24 PM PROFESSIONAL FEE CODER 03/10/2019 1:49 PM PROFESSIONAL FEE CODER Narrative [facility] - 03/10/2019 2:57 PM PROFESSIONAL FEE CODER No Laboratory evidence of HIV infection. Ivana Thomas ASSISTANT FARM OPERATIONS MANAGER-MEDIA CENTER DIRECTOR SCHOOL LAB - CHEMISTRY ORDERABLES [facility] [address] [place] [address] * PAP LB HPV HR DNA (11/11/2018 12:09 PM CDT) Diagnosis Comment 11/15/2018 8:07 PM CDT [facility] ([facility]) Comment:NEGATIVE FOR INTRAEP ITHELIAL LESION OR MALIGNANCY. Specimen Adequacy Comment 019 8:07 PM CDT [facility] ([facility]) Comment: Satisfactory for evaluation. ??No endocervical component is identified. An endocervical component is not commonly seen in the patient. Performed by Comment 11/15/2018 8:07 PM CDT [facility] ([facility]) Comment:Bernarda Hutchins Grill Associate (ASCP) Comment . 11/15/2018 8:07 PM CDT [facility] ([facility]) Note Comment 11/15/2018 8:07 PM CDT [facility] ([facility]) Comment: The Pap smear is a screening test designed to aid in the detection of premalignant and malignant conditions of the uterine cervix. ??It is not a diagnostic procedure and should not be used as the sole means of detecting cervical cancer. ??Both false-positive and false-negative reports do occur. Human papillomavirus High Risk Negative Negative 11/15/2018 8:07 PM CDT [facility] ([facility]) Comment: This high-risk HPV test detects thirteen high-risk types (16/18/31/33/35/39/45/51/52/56/58/59/68) without differentiation. Pathology/Cytolo gy ENTIRE ENDOCERVIX / Unknown Collection / Unknown 11/11/2018 12:09 PM CDT 11/11/2018 12:27 PM CDT Narrative [facility] ([facility]) - 11/15/2018 8:07 PM CDT Performed at: ??01 - [facility] ??[id number] Pack Changer: Onelia Barbosa MD, Phone: ??[phone] Performed at: ??02 - [facility] [address] ??[id number] Pack Changer: Onelia Barbosa MD, Phone: ??[phone] Specimen Comment: Source.............Endocervix Specimen Comment: LMP / Prev Treat...Conization;[place] / BX Specimen Comment: Other.............. Specimen Comment: No. of containers..01 ThinPrep Vial Helen Zurita ASSISTANT FARM OPERATIONS MANAGER-MEDIA CENTER DIRECTOR SCHOOL LAB - PATHOLOG Y/CYTOLOGY ORDERABLES [facility] ([facility]) [address] [address] * HEPATITIS C ANTIBODY (11/11/2018 12:07 PM CDT) HCV Antibody Screen Non Reactive Non Reactive 11/11/2018 1:55 PM CDT [facility] HCV S/C Ratio 0.19 0.00 - 0.79 11/11/2018 1:55 PM CDT [facility] Comment: Mlzliw-ti-clwzxp ratio (S/CO) <0.80:?? Non Reactive Blood BLOOD SPECIMEN / Unknown Venipuncture / Unknown 11/11/2018 12:07 PM CDT 11/11/2018 12:56 PM CDT Narrative [facility] - 11/11/2018 1:55 PM CDT Non Reactive - Antibodies to Hepatitis C virus (HCV) were not detected, result does not exclude early acute HCV infection. Helen Zurita ASSISTANT FARM OPERATIONS MANAGER-MEDIA CENTER DIRECTOR SCHOOL LAB - CHEMISTR Y ORDERABLES Performing Organization Address City/[facility]/ZIP Co de Phone Number [facility] [address] [place] [address] from Last 3 Months or Most Recently [...] 11:00 AM 03/17/2019 7:31 PM Care Teams Aircraft Assembler Relationship Specialty Start Date End Date Mario Logan MD [address] [place] [address] PCP - General 05/24/19
--- OUTSIDE RECORDS SUMMARY | 2024-03-23 01:10 | XMS_ITS ---
Author Organization [facility] Address [address] [place] [address] Care Team Providers Care Vacuum Metalizer Operator Name Role Phone Alana Epps Primary Care Provider REASON FOR VISIT LEAD MAN OVER ALL DIES IN PATTERN SHOP Vivitrol Social History Sex Assigned At : Social History Observation Description Sex Assigned At Female Encounters Encounter Location Date Provider Diagnosis [address] [place] [address] 09/25/2022 Alana Epps Plan Of Treatment No Information Progress Notes * Jaycee ROUSEDOB:1980 (42 yo F)Acc No.[id number]:09/25/2022 Patient:?PadmaBradia :1980???Age:42 Y???Sex:Female Address:[address] [place] [address] * true * Date:? Generated for Roland felder/Karina/eTransmitting on:?03/23/2024 01:10 AM LEADED GLASS INSTALLER
--- NOTE | 2024-03-23 01:31 | ED_ITS ---
HPI - URI/Sore Throat General Chief Complaint: Upper Respiratory Infection Stated Complaint: Upper Respiratory Time Seen by Provider: 03/23/24 01:17 Source: patient Mode of arrival: ambulatory Limitations: no limitations History of Present Illness HPI Narrative: Patient is a 44-year-old female with cough and congestion for the past few days. She has lots of stress going on at this time as well. She took meth 3 days ago. She is trying to stop using meth. MD elicited complaint: cough and nasal congestion Pertinent past history: other ( tobacco abuse, meth use) Onset (ago): day(s) (3) Consistency: constant Severity: mild Pain scale (0-10): 1 Description of mucous: clear Able to tolerate fluids by mouth: Yes Exacerbating factors: nothing Relieving factors: nothing Context: sick contacts Associated symptoms: nasal congestion and cough Treatments prior to arrival: none Related Data Home Medications ?Medication ?Instructions ?Recorded ?Confirmed ?Last Taken ?Type No Home Medications 12/26/23 03/23/24 Unknown History Allergies Allergy/AdvReac Type Severity Reaction Status Date / Time Penicillins Allergy Severe Difficulty Verified 03/23/24 01:48 Swallowing codeine AdvReac Swelling Verified 03/23/24 01:48 NSAIDS (Non-Steroidal AdvReac Swelling Verified 03/23/24 01:48 Anti-Inflamma of Lip/Tongue/Throat Review of Systems 2 Review of Systems: All systems reviewed & are unremarkable except as noted in HPI and below Constitutional: Constitutional: Reports no additional constitutional complaints Eyes: Eyes: Reports no additional eye complaints ENT: Reports system reviewed and no additional complaints, except as documented Cardiovascular: Cardiovascular: Reports no additional cardiovascular complaint s Respiratory: Respiratory: Reports no additional respiratory complaints Gastrointestinal: Gastrointestinal: Reports no additional gastrointestinal complaints Genitourinary: Genitourinary: Reports no additional female genitourinary complaints Musculoskeletal: Musculoskeletal: Reports no additional musculoskeletal complaints Integumentary/Breasts: Skin/Breast: Reports system reviewed and no additional complaints, except as docu Neurologic: Reports system reviewed and no additional complaints, except as documented Psychiatric: Psychiatric: Reports no additional psychiatric complaints Endocrine: Endocrine: Reports no additional endocrine complaints Hematologic/Lymphatic: Hematologic/Lymphatic: Reports no additional hematologic/lymphatic complaints Allergic/Immunologic: Allergic/Immunologic: Reports no additional allergic/immunologic complaints PMFSH Past Medical History Medical History Drug abuse Tooth decay Surgical History Surgical History No significant past surgical history Family History Family History Father No problems noted. Father Lung cancer Mother Heart disease Social History Social History Years smoked: 20 Smoking status: Current every day smoker Tobacco type: cigarettes Second hand tobacco smoke exposure: Yes Alcohol intake: former Substance use: former Substance use type: marijuana and methamphetamine Gender identity (if verbalized by the patient): Female Spiritual care concerns: No Exam Const: General: healthy appearing Nutritional Appearance: well nourished Orientation/consciousness: patient oriented x3 HENMT: Head: normal to inspection Ears: external ears normal Face/Nose/Sinus: Normal external nose present Eyes: Conjunctivae: conjunctivae normal Pupils: Equal, round and reactive pupils present EOM: EOMs intact bilaterally Neck: Neck: normal visual inspection Chest: Chest palpation & inspection: normal inspection of the chest Resp: Effort & Inspection: normal respiratory effort and not labored Auscultation: clear to auscultation bilaterally, no crackles and rhonchi Cardio: Rate: regular rate Rhythm: regular rhythm Heart sounds: no murmurs GI: Inspection: non-distended GI Palp: Yes Soft to palpation and No Tenderness to palpation present (GI) Auscultation: normal bowel sounds : General: Yes bladder normal to palpation Back/Spine/Pelvis: Back: no CVA tenderness Skin: General skin exam: normal color Rashes: no rashes Wounds: no wounds Neuro: General: patient oriented x3 Cranial nerves: Yes Nystagmus not present Speech: normal speech Gait exam (Neuro): Normal gait present Extrem: General: normal to inspection Psych: Mental Status: mental status grossly normal Affect: normal affect Attitude: cooperative Course Vital Signs Vital signs: Vital Signs Temperature 36.6 C 03/23/24 01:07 Pulse Rate 85 03/23/24 01:07 Respiratory Rate 16 03/23/24 01:07 Blood Pressure 137/89 03/23/24 01:07 Pulse Oximetry 100 03/23/24 01:07 Oxygen Delivery Room Air 03/23/24 01:07 Temperature 36.6 C 03/23/24 01:07 Pulse Rate 85 03/23/24 01:07 Respiratory Rate 16 03/23/24 01:07 Blood Pressure 137/89 03/23/24 01:07 Pulse Oximetry 100 03/23/24 01:07 Oxygen Delivery Room Air 03/23/24 01:07 MDM - URI/Sore Throat MDM Narrative Medical decision making narrative: patient is a 44-year-old female with cough and congestion upper respiratory complaints. We will go ahead and do COVID panel and chest x-ray. Lab Data Attestation: I reviewed the patient's lab results. Labs: Lab Results 03/23/24 Range/Units 01:24 Influenza A (RT-PCR) Pending Influenza B (RT-PCR) Pending RSV (RT-PCR) Pending SARS-CoV-2 RNA (RT-PCR) Pending Negative panel Imaging Data Attestation: I personally reviewed and interpreted this imaging study as follows: Radiologist's impression: chest x-ray initial read by me pending final reading shows no acute process Discharge Plan Discharge Clinical Impression: Bronchitis Patient Disposition: Home, Self-Care Condition: Stable Instructions: Antibiotic Form, Acute Bronchitis (ED) Patient Language: Kittitian Prescriptions: New azithromycin 500 mg tablet 500 mg PO DAILY 3 Days Qty: 3 0RF prednisone 20 mg tablet 40 mg PO DAILY 2 Days Qty: 4 0RF No Action No Home Medications Follow-up/Referrals: Nj Schulte DO [Primary Care Provider] - Time of Disposition: 03:18
[2024-03-23 02:10] LABS: Influenza A QL RT-PCR Negative (Negative); Influenza B QL RT-PCR Negative (Negative); RSV RNA, RT-PCR Negative (Negative); SARS-CoV-2 RNA PCR Negative (Negative)
[2024-03-23] MEDS: AZITHROMYCIN 250 MG TABLET 500 MG PO (03:22)
[2024-03-23] MEDS: predniSONE 20 MG TABLET 40 MG PO (03:22)
[2024-03-23 03:39] VITALS: BP 138/85; PULSE 85; RESP 16; O2SAT 100
== END 2024-03-23 03:39 | disposition home or self-care (01) ==
PROVIDERS: Emergency Provider Emergency Medicine; PCP Family Medicine
DX: J40 Bronchitis, not specified as acute or chronic (principal); F17.210 Nicotine dependence, cigarettes, uncomplicated; F12.90 Cannabis use, unspecified, uncomplicated; F15.90 Other stimulant use, unspecified, uncomplicated; Z20.822 Contact with and (suspected) exposure to COVID-19
CPT/HCPCS: 71045; 87637; 99283; A9270; J7512

== ENCOUNTER 2024-03-29 18:45 | Emergency (ER) | payer OTHER, SELFPAY ==
--- NOTE | ~2024-03-29 | CT_ITS ---
CLINICAL INDICATION: Abdominal and rectal pain COMPARISON: 10/20/2023 TECHNIQUE: Multiple contiguous axial images of the abdomen and pelvis were performed without the admi nistration of intravenous contrast The dose-length product (DLP) was 208.37 mGy-cm. Automated exposure control and iterative reconstruction technique were employed. FINDINGS/OBSERVATIONS: Visualized lower thorax: The bilateral lung bases are clear. The heart is of normal size, without pericardial effusion. Liver: The liver demonstrates homogeneous attenuation and is not enlarged. Gallbladder and biliary system: The gallbladder is surgically absent. Pancreas: Limited evaluation of the pancreas secondary to the lack of intravenous contrast. Spleen: The spleen demonstrates homogeneous attenuation and is not enlarged. Kidneys: The bilateral kidneys are unremarkable, without hydronephrosis or renal calculi. Adrenal glands: Limited evaluation without intravenous contrast or intra-abdominal fat. Gastrointestinal tract: Significant fecal stasis within the colon Appendix: Unable to visualize the appendix without intravenous contrast or intra-abdominal fat. Vasculature: Limited evaluation. Lymph nodes: Limited evaluation without intravenous contrast. Pelvic structures: The bladder is decompressed. The uterus is anteverted and anteflexed. Unable to visualize the presence or absence of rectal prolapse without intravenous contrast or intra- abdominal/intrapelvic fat. Body wall and musculoskeletal: No significant degenerative disease within the lower thoracic or lumbosacral spine. IMPRESSION: Limited evaluation of the abdomen and pelvis without intravenous contrast or intra-abdominal fat. Significant fecal stasis within the colon. Unable to visualize the presence or absence of rectal prolapse without intravenous contrast or intra- abdominal/intrapelvic fat. Direct visualization is recommended. Reviewed, dictated and finalized at location A. FINISHING MACHINE ADJUSTER IMPRESSION: Limited evaluation of the abdomen and pelvis without intravenous contrast or in tra-abdominal fat. Significant fecal stasis within the colon. Unable to visualize the presence or absence of rectal prolapse without intraven ous contrast or intra-abdominal/intrapelvic fat. Direct visualization is recomm ended.
--- OUTSIDE RECORDS SUMMARY | 2024-03-29 18:48 | XMS_ITS | Clinical Summary ---
Author Organization [facility] [employer] Address [address] [place] [address] Care Team Providers Care Ambulance Paramedic Name Role Phone Mario Logan MD Primary Care Provider Source Comments [facility],non-owned Affiliates and Associated Physician Practices is amultiple site organization consisting of ambulatory clinics and hospital sitesin [place], [place], [place] and [place]. This disclosure is being madepursuant to the Care Everywhere program and may not contain all information available regarding this patient. Last updated 17.[facility] [employer] Allergies Active Allergy Reactions Criticality Noted Date [...] naloxone HCl (NARCAN) 4 MG/0.1ML nasal spray [place] 1 spray into the nose as needed [...] migh t be different from the original. [id number] Problem Noted Date Diagnosed Date Non-reactive NST [...] 02/28/2014 Overview (05/05/2019): Confirmed dose-270 mg from [facility]. Scanned Into media. Previously used heroin and [...] 05/30/04: neg 2000: CRISTIAN 3 s/p LEEP [place] Evaluate anatomy not seen on prior sonogram [...] P24 AG PANEL Routine 03/10/2019 1:24 PM SOLID PLASTERER Supervision of high risk in second trimester (HCC) PAP LB HPV HR DNA Routine 11/11/2018 12: 09 PM CDT Cervical cancer screening HEPATITIS C ANTIBODY Routine 11/11/2018 12:07 PM CDT Supervision of high risk , antepartum (HCC) from Last 3 Months or Most Recently Relevant to Health Maintenance Results * HIV-1 HIV-2 ANTIBODY + HIV P24 AG PANEL (03/10/2019 1:24 PM SOLID PLASTERER) HIV1/2 Ab + P24 Ag Non Reactive Non Reactive 03/10/2019 2:57 PM SOLID PLASTERER [facility] Blood BLOOD SPECIMEN / Unknown Venipuncture / Unknown 03/10/2019 1:24 PM SOLID PLASTERER 03/10/2019 1:49 PM SOLID PLASTERER Narrative [facility] - 03/10/2019 2:57 PM SOLID PLASTERER No Laboratory evidence of HIV infection. Ivana Thomas JAR CAPPER-JOB COACH/JOB DEVELOPER LAB - CHEMISTRY ORDERABLES [facility] [address] [place] [address] * PAP LB HPV HR DNA (11/11/2018 12:09 PM CDT) Diagnosis Comment 11/15/2018 8:07 PM CDT [facility] ([facility]) Comment:NEGATIVE FOR INTRAEP ITHELIAL LESION OR MALIGNANCY. Specimen Adequacy Comment 019 8:07 PM CDT [facility] ([facility]) Comment: Satisfactory for evaluation. ??No endocervical component is identified. An endocervical component is not commonly seen in the patient. Performed by Comment 11/15/2018 8:07 PM CDT [facility] ([facility]) Comment:Bernarda Hutchins Motor Overhauler (ASCP) Comment . 11/15/2018 8:07 PM CDT [facility] ([facility]) Note Comment 11/15/2018 8:07 PM CDT [facility] ([facility]) Comment: The Pap smear is a screening test designed to aid in the detection of premalignant and malignant conditions of the uterine cervix. ??It is not a diagnostic procedure and should not be used as the sole means of detecting cervical cancer. ??Both false-positive and false-negative reports do occur. Human papillomavirus High Risk Negative Negative 11/15/2018 8:07 PM CDT [facility] ([facility]) Comment: This high-risk HPV test detects thirteen high-risk types (16/18/31/33/35/39/45/51/52/56/58/59/68) without differentiation. Pathology/Cytolo gy ENTIRE ENDOCERVIX / Unknown Collection / Unknown 11/11/2018 12:09 PM CDT 11/11/2018 12:27 PM CDT Narrative [facility] ([facility]) - 11/15/2018 8:07 PM CDT Performed at: ??01 - [facility] ??[id number] Publicity Manager: Onelia Barbosa MD, Phone: ??[phone] Performed at: ??02 - [facility] [address] ??[id number] Publicity Manager: Onelia Barbosa MD, Phone: ??[phone] Specimen Comment: Source.............Endocervix Specimen Comment: LMP / Prev Treat...Conization;[place] / BX Specimen Comment: Other.............. Specimen Comment: No. of containers..01 ThinPrep Vial Helen Zurita JAR CAPPER-JOB COACH/JOB DEVELOPER LAB - PATHOLOG Y/CYTOLOGY ORDERABLES [facility] ([facility]) [address] [address] * HEPATITIS C ANTIBODY (11/11/2018 12:07 PM CDT) HCV Antibody Screen Non Reactive Non Reactive 11/11/2018 1:55 PM CDT [facility] HCV S/C Ratio 0.19 0.00 - 0.79 11/11/2018 1:55 PM CDT [facility] Comment: Rathcz-ro-ncuqvo ratio (S/CO) <0.80:?? Non Reactive Blood BLOOD SPECIMEN / Unknown Venipuncture / Unknown 11/11/2018 12:07 PM CDT 11/11/2018 12:56 PM CDT Narrative [facility] - 11/11/2018 1:55 PM CDT Non Reactive - Antibodies to Hepatitis C virus (HCV) were not detected, result does not exclude early acute HCV infection. Helen Zurita JAR CAPPER-JOB COACH/JOB DEVELOPER LAB - CHEMISTR Y ORDERABLES Performing Organization Address City/[facility]/ZIP Co de Phone Number [facility] [address] [place] [address] from Last 3 Months or Most Recently [...] 11:00 AM 03/17/2019 7:31 PM Care Teams Ambulance Paramedic Relationship Specialty Start Date End Date Mario Logan MD [address] [place] [address] PCP - General 05/24/19
--- OUTSIDE RECORDS SUMMARY | 2024-03-29 18:48 | XMS_ITS | Clinical Summary ---
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 Never true 10/13/19 24 Within the past 12 months, t he [...] any time in the past 12 [address] [place] [place], were you homeless or living in a [place] health care facility (including now)? Yes 10/13/2023 Comments No Sex and Gender Information Value Date Recorded Sex Assigned at Not on file Legal Sex Female 11:36 PM CDT Gender Identity Not on file Sexual Orientation Not on file Last Filed Vital Signs Vital Sign Reading Time Taken Comments Blood Pressure 125/80 02/04/2024 6:44 PM SENIOR UI UX DEVELOPER Pulse 85 02/04/2024 6:44 PM SENIOR UI UX DEVELOPER Temperature 36.9 ??C (98.5 ??F) 02/04/2024 6:44 PM CS T Respiratory Rate 16 02/04/2024 6:44 PM SENIOR UI UX DEVELOPER Oxygen Saturation 100% 02/04/2024 6:44 PM SENIOR UI UX DEVELOPER Inhaled Oxygen Concentration - - Weight 52.7 kg (116 lb 1.6 oz) 02/04/2024 6:44 P M SENIOR UI UX DEVELOPER Height 154.9 cm (5' 1 ) 02/04/2024 6:44 PM SENIOR UI UX DEVELOPER Body Mass Index 21.94 02/04/2024 6:44 PM SENIOR UI UX DEVELOPER Plan of Treatment Health Maintenance Due Date [...] VARGHESE NON-REACT VARGHESE 10/13/2023 1:41 PM CDT [facility] Comment:HBsAg NOT DETECTED. HEP B CORE IGM NON-REACT VARGHESE NON-REACT VARGHESE 10/13/2023 1:41 PM CDT [facility] Comment: IgM ANTI HBc NOT DETECTED. DOES NOT EXCLUDE THE POSSIBILITY OF EXPOSURE TO OR INFECTION WITH HBV. NO RETEST REQUIRED. HIGH DOSES OF BIOTIN MAY INTERFERE WITH THIS TEST RESULT. CORRELATION TO CLINICAL HISTORY AND PRESENTATION RECOMMENDED. HAV IGM NON-REACT VARGHESE NON-REACT VARGHESE 10/13/2023 1:41 PM CDT [facility] Comment: IgM ANTI HAV NOT DETECTED. DOES NOT EXCLUDE THE POSSIBILITY OF EXPOSURE TO OR INFECTION WITH HAV. LEVELS OF IgM ANTI HAV MAY BE BELOW THE CUTOFF IN EARLY INFECTION. HEPATITIS C AB NON-REACT VARGHESE NON-REACT VARGHESE 10/13/2023 1:42 PM CDT [facility] Comment: ANTIBODIES TO HCV NOT DETECTED. DOES NOT EXCLUDE THE POSSIBILITY OF EXPOSURE TO HCV. 10/13/2023 3:24 AM CDT Tenisha Cheema MD LABORATORY Final Result [facility] [address] [place] [address], [id number] from Last 3 Months or Most Recently Relevant to Health Maintenance Insurance [employer] Advance Directives Documents on File Type Date Recorded Patient Sweep Press Operator Expl anation Advance Directives and Living Will 05/10/2015 12:00 AM ADVANCED DIRECTIVES Advance Directives and Living Will 08/06/2013 12:00 AM ADVANCED DIRECTIVES Advance Directives and Living Will 12/28/2012 12:00 AM ADVANCED DIRECTIVES * Full Code (Latest Code Status on File) Date Activated Date Inactivated Comments 10/13/2023 5:53 AM 10/14/2023 10:50 AM Care Teams Program Trainer Relationship Specialty Start Date End Date None, Provider, PCP - General UNKNOWN PHYSICIAN SPECIALTY 07/13/23
--- OUTSIDE RECORDS SUMMARY | 2024-03-29 18:48 | XMS_ITS | Encounter Summary ---
Author Organization [facility] Address [address] [place] [address] Care Team Providers Care Public Health Clinical Nurse Specialist Name Role Phone None, Provider Primary Care Provider Unavaila ble Encounter Details Date Type Department Care Team (Late st Contact Info) Description 07/31/2018 Abstract [facility] CONVERSION [address] [place] [address] , Generic Conversion, Social History [...] on filedocumented in this encounter Care Teams Public Health Clinical Nurse Specialist Relationship Specialty Start Date End Date None, Provider, PCP - General UNKNOWN PHYSICIAN SPECIALTY 07/13/23 documented as of this encounter
--- OUTSIDE RECORDS SUMMARY | 2024-03-29 18:48 | XMS_ITS | Referral Summary ---
Author Organization [facility] Channel[employer] Address [address] [place] [address] Care Team Providers Care Security Professional Name Role Phone Mario Logan MD Primary Care Provider Source Comments [facility],non-owned Affiliates and Associated Physician Practices is amultiple site organization consisting of ambulatory clinics and hospital sitesin [place], [place], [place] and [place]. This disclosure is being madepursuant to the Care Everywhere program and may not contain all information available regarding this patient. Last updated 17.[facility] Allergies Active Allergy Reactions Criticality Noted Date [...] naloxone HCl (NARCAN) 4 MG/0.1ML nasal spray [place] 1 spray into the nose as needed [...] migh t be different from the original. [id number] Problem Noted Date Diagnosed Date Non-reactive NST [...] (05/05/2019): Confirmed dose-270 mg from [facility]. Scanned Into media. Previously used heroin and [...] 05/30/04: neg 2000: CRISTIAN 3 s/p LEEP [place] Evaluate anatomy not seen on prior sonogram [...] P24 AG PANEL Routine 03/10/2019 1:24 PM FIELD ADMINISTRATIVE ASSISTANT Supervision of high risk in second trimester (HCC) PAP LB HPV HR DNA Routine 11/11/2018 12: 09 PM CDT Cervical cancer screening HEPATITIS C ANTIBODY Routine 11/11/2018 12:07 PM CDT Supervision of high risk , antepartum (HCC) from Last 3 Months or Most Recently Relevant to Health Maintenance Results * HIV-1 HIV-2 ANTIBODY + HIV P24 AG PANEL (03/10/2019 1:24 PM FIELD ADMINISTRATIVE ASSISTANT) HIV1/2 Ab + P24 Ag Non Reactive Non Reactive 03/10/2019 2:57 PM FIELD ADMINISTRATIVE ASSISTANT [facility] Blood BLOOD SPECIMEN / Unknown Venipuncture / Unknown 03/10/2019 1:24 PM FIELD ADMINISTRATIVE ASSISTANT 03/10/2019 1:49 PM FIELD ADMINISTRATIVE ASSISTANT Narrative [facility] - 03/10/2019 2:57 PM FIELD ADMINISTRATIVE ASSISTANT No Laboratory evidence of HIV infection. Ivana Thomas DENTAL SERVICES DIRECTOR-WRINGER AND SETTER LAB - CHEMISTRY ORDERABLES [facility] [address] [place] [address] * PAP LB HPV HR DNA (11/11/2018 12:09 PM CDT) Diagnosis Comment 11/15/2018 8:07 PM CDT [facility] ([facility]) Comment:NEGATIVE FOR INTRAEP ITHELIAL LESION OR MALIGNANCY. Specimen Adequacy Comment 019 8:07 PM CDT [facility] ([facility]) Comment: Satisfactory for evaluation. ??No endocervical component is identified. An endocervical component is not commonly seen in the patient. Performed by Comment 11/15/2018 8:07 PM CDT [facility] ([facility]) Comment:Bernarda Hutchins Procedures Rn (ASCP) Comment . 11/15/2018 8:07 PM CDT [facility] ([facility]) Note Comment 11/15/2018 8:07 PM CDT [facility] ([facility]) Comment: The Pap smear is a screening test designed to aid in the detection of premalignant and malignant conditions of the uterine cervix. ??It is not a diagnostic procedure and should not be used as the sole means of detecting cervical cancer. ??Both false-positive and false-negative reports do occur. Human papillomavirus High Risk Negative Negative 11/15/2018 8:07 PM CDT [facility] ([facility]) Comment: This high-risk HPV test detects thirteen high-risk types (16/18/31/33/35/39/45/51/52/56/58/59/68) without differentiation. Pathology/Cytolo gy ENTIRE ENDOCERVIX / Unknown Collection / Unknown 11/11/2018 12:09 PM CDT 11/11/2018 12:27 PM CDT Narrative [facility] ([facility]) - 11/15/2018 8:07 PM CDT Performed at: ??01 - [facility] ??[id number] Director: Onelia Barbosa MD, Phone: ??[phone] Performed at: ??02 - [facility] [address] ??[id number] Director: Onelia Barbosa MD, Phone: ??[phone] Specimen Comment: Source.............Endocervix Specimen Comment: LMP / Prev Treat...[place] / BX Specimen Comment: Other.............. Specimen Comment: No. of containers..01 ThinPrep Vial Helen Zurita DENTAL SERVICES DIRECTOR-WRINGER AND SETTER LAB - PATHOLOG Y/CYTOLOGY ORDERABLES [facility] ([facility]) [address] [place] [address] * HEPATITIS C ANTIBODY (11/11/2018 12:07 PM CDT) HCV Antibody Screen Non Reactive Non Reactive 11/11/2018 1:55 PM CDT [facility] HCV S/C Ratio 0.19 0.00 - 0.79 11/11/2018 1:55 PM CDT [facility] Comment: Lnfmru-gm-rtjmqo ratio (S/CO) <0.80:?? Non Reactive Blood BLOOD SPECIMEN / Unknown Venipuncture / Unknown 11/11/2018 12:07 PM CDT 11/11/2018 12:56 PM CDT [facility] - 11/11/2018 1:55 PM CDT Non Reactive - Antibodies to Hepatitis C virus (HCV) were not detected, result does not exclude early acute HCV infection. Helenmanpreet Ballardbrock DENTAL SERVICES DIRECTOR-WRINGER AND SETTER LAB - CHEMISTR Y ORDERABLES [facility] [address] [place] [address] from Last 3 Months or Most Recently [...] 11:00 AM 03/17/2019 7:31 PM Care Teams Security Professional Relationship Specialty Start Date End Date Mario Logan MD [address] [address] PCP - General 05/24/19
--- OUTSIDE RECORDS SUMMARY | 2024-03-29 18:48 | XMS_ITS | Patient Health Summary ---
Author Organization [facility] Address [address] [place] [address] Care Team Providers Care Associate Media Director Name Role Phone Mario Logan MD Primary Care Provider Note from [facility],non-owned Affiliates and Associated Physician Practices is amultiple site organization consisting of ambulatory clinics and hospital sitesin [place], [place], [place] and [place]. This disclosure is being madepursuant to the Care Everywhere program and may not contain all information available regarding this patient. Last updated 17.[facility] Allergies * Codeine(Anaphylaxis) -High Criticality * Naproxen(GI Discomfort) * Penicillins(Urticaria,Swelling) -High Criticality * Ketorolac(Other) Medications * Be aware that medications may not be up to date on this document. Alwaysverify current medications with the patient. * methadone (DOLOPHINE) 10 MG tablet Take 270 mg by mouth once daily * naloxone HCl (NARCAN) 4 MG/0.1ML nasal spray(Started 11/11/2018) [place] 1 spray into the nose as needed [...] Methadone maintenance treatment complicating , antepartum ([facility]LY [facility]), Supervisionof high risk , antepartum ([facility]) * CBC W AUTO DIFFERENTIAL(Performed 05/13/2019) * BLOOD GASES CORD GENIA(Performed 05/12/2019) * PATHOLOGY TISSUE EXAM (STL)(Performed 05/12/2019) Performed for delivery delivered (FORM[facility]LY [facility]) * NEURAXIAL BLOCK(Performed 05/12/2019) * SECTION (EMERGENCY)(Performed 05/12/2019) * URINE DRUG SCREEN IMMUNOASSAY(Performed 05/12/2019) Performed for Methadone maintenance treatment complicating , antepartum ([facility]) * PREPARE RBC LEUKOREDUCED UNIT(Performed 05/12/2019) * TYPE + SCREEN PANEL(Performed 05/12/2019) Performed for Non-reactive NST (non-stress test) * CBC W AUTO DIFFERENTIAL(Performed 05/12/2019) Performed for Non-reactive NST (non-stress test) * GLUCOSE PROTEIN KETONE URINE - POINT OF CAR(Performed 05/12/2019) Performed for Supervision of high risk in second trimester ([facility]), Methadone maintenance treatment complicating , antepartum ([facility]) * URINE DRUG SCREEN IMMUNOASSAY(Performed 05/12/2019) Performed for Evaluate anatomy not seen on prior sonogram, Antepartum multigravida of advanced maternal age ([facility]) * GLUCOSE PROTEIN KETONE URINE - POINT OF CAR(Performed 05/11/2019) Performed for Supervision of high risk in second trimester ([facility]) * SONOGRAM - COMPLETE(Performed 05/11/2019) * URINE DRUG SCREEN IMMUNOASSAY(Performed 05/11/2019) Performed for Supervision of high risk in second trimester ([facility]) * COMPREHENSIVE METABOLIC PANEL(Performed 05/05/2019) Performed for RUQ pain * CBC W AUTO DIFFERENTIAL(Performed 05/05/2019) Performed for Anemia during ([facility]) * CULTURE STREP B(Performed 05/05/2019) Performed for Supervision of high risk in third trimester ([facility]) * URINE DRUG SCREEN IMMUNOASSAY(Performed 05/05/2019) Performed for Methadone maintenance treatment complicating , antepartum ([facility]) * GLUCOSE PROTEIN KETONE URINE - POINT OF CAR(Performed 05/05/2019) Performed for Supervision of high risk in third trimester ([facility]) * SONOGRAM - COMPLETE(Performed 04/21/2019) * GLUCOSE PROTEIN KETONE URINE - POINT OF CAR(Performed 04/21/2019) Performed for Supervision of high risk in third trimester ([facility]), Methadone maintenance treatment complicating , antepartum ([facility]) * URINE DRUG SCREEN IMMUNOASSAY(Performed 04/21/2019) Performed for Evaluate anatomy not seen on prior sonogram, Antepartum multigravida of advanced maternal age ([facility]) * URINE MICROSCOPIC ONLY REFLEX TO CULTURE(Performed 04/17/2019) Performed for Methadone maintenance treatment complicating , antepartum ([facility]) * URINALYSIS REFLEX MICROSCOPIC REFLEX CULTURE(Performed 04/17/2019) Performed for Methadone maintenance treatment complicating , antepartum ([facility]) * CULTURE URINE(Performed 04/17/2019) Performed for Methadone maintenance treatment complicating , antepartum ([facility]) * IMAGING/RADIOLOGY/XRAY RESULTS ORDER(Performed 04/07/2019) * GLUCOSE PROTEIN KETONE URINE - POINT OF CAR(Performed 04/07/2019) Performed for Supervision of high risk in third trimester ([facility]), Methadone maintenance treatment complicating , antepartum ([facility]) * URINE DRUG SCREEN IMMUNOASSAY(Performed 04/07/2019) Performed for Evaluate anatomy not seen on prior sonogram, Multigravida of advanced maternal age infirst trimester ([facility]) * IMAGING/RADIOLOGY/XRAY RESULTS ORDER(Performed 04/07/2019) * AMB CONSULT TO CARDIOLOGY(Performed 04/01/2019) Performed for Abnormal EKG, Dizziness * NONSTRESS TEST(Performed 03/29/2019) Performed for Nausea and vomiting during ([facility]) * URINE DRUG SCREEN IMMUNOASSAY(Performed 03/29/2019) Performed for Nausea and vomiting during ([facility]), Supervision of high risk in third trimester ([facility]), Methadone maintenance treatment complicating , antepartum ([facility]) * SONOGRAM - COMPLETE(Performed 03/24/2019) * GLUCOSE PROTEIN KETONE URINE - POINT OF CAR(Performed 03/24/2019) Performed for Methadone maintenance treatment complicating , antepartum ([facility]) * URINE DRUG SCREEN IMMUNOASSAY(Performed 03/24/2019) Performed for Evaluate anatomy not seen on prior sonogram, Antepartum multigravida of advanced maternal age ([facility]) * NONSTRESS TEST(Performed 03/17/2019) Performed for Uterine contractions during ([facility]) * RESPIRATORY PATHOGEN PANEL BY PCR(Performed 03/17/2019) Performed for Nausea and vomiting during ([facility]), Shortness of breath * CT ANGIO CHEST PULM EMBOLISM(Performed 03/17/2019) Performed for Shortness of breath * EKG 12-LEAD(Performed 03/17/2019) Performed for Nausea and vomiting during ([facility]) * ECHOCARDIOGRAM 2D WITH DOPPLER(Performed 03/17/2019) Performed for Shortness of breath * XR CHEST 1VW PORTABLE(Performed 03/17/2019) Performed for Nausea and vomiting during ([facility]) * T4 FREE(Performed 03/17/2019) Performed for Nausea and vomiting during ([facility]) * B-TYPE NATRIURETIC PEPTIDE(Performed 03/17/2019) Performed for Nausea and vomiting during ([facility]) * URINE MICROSCOPIC ONLY REFLEX TO CULTURE(Performed 03/17/2019) Performed for Nausea and vomiting during ([facility]) * URINALYSIS REFLEX MICROSCOPIC REFLEX CULTURE(Performed 03/17/2019) Performed for Nausea and vomiting during ([facility]) * CK BLOOD(Performed 03/17/2019) Performed for Nausea and vomiting during ([facility]) * TROPONIN I(Performed 03/17/2019) Performed for Nausea and vomiting during ([facility]) * PHOSPHORUS BLOOD(Performed 03/17/2019) Performed for Nausea and vomiting during ([facility]) * MAGNESIUM BLOOD(Performed 03/17/2019) Performed for Nausea and vomiting during ([facility]) * TSH(Performed 03/17/2019) Performed for Nausea and vomiting during ([facility]) * COMPREHENSIVE METABOLIC PANEL(Performed 03/17/2019) Performed for Nausea and vomiting during ([facility]) * CBC W AUTO DIFFERENTIAL(Performed 03/17/2019) Performed for Nausea and vomiting during ([facility]) * CULTURE URINE(Performed 03/17/2019) Performed for Nausea and vomiting during ([facility]) * GLUCOSE PROTEIN KETONE URINE - POINT OF CAR(Performed 03/17/2019) Performed for Supervision of high risk in third trimester ([facility]), Methadone maintenance treatment complicating , antepartum ([facility]) * URINE DRUG SCREEN IMMUNOASSAY(Performed 03/17/2019) Performed for Evaluate anatomy not seen on prior sonogram, Antepartum multigravida of advanced maternal age ([facility]) * NONSTRESS TEST(Performed 03/10/2019) Performed for Dizziness, Nausea and vomiting during ([facility]), Supervision of high risk in second trimester ([facility]) * IRON + TRANSFERRIN PANEL(Performed 03/10/2019) Performed for Anemia during in third trimester ([facility]) * FERRITIN(Performed 03/10/2019) Performed for Anemia during in third trimester ([facility]) * COMPREHENSIVE METABOLIC PANEL(Performed 03/10/2019) Performed for Supervision of high risk in second trimester ([facility]) * GLUCOSE CHALLENGE(Performed 03/10/2019) Performed for Supervision of high risk in second trimester ([facility]) * HIV-1 HIV-2 ANTIBODY + HIV P24 AG PANEL(Performed 03/10/2019) Performed for Supervision of high risk in second trimester ([facility]) * SYPHILIS ANTIBODY CASCADING REFLEX(Performed 03/10/2019) Performed for Supervision of high risk in second trimester ([facility]) * CBC W AUTO DIFFERENTIAL(Performed 03/10/2019) Performed for Supervision of high risk in second trimester ([facility]) * URINE MICROSCOPIC ONLY REFLEX TO CULTURE(Performed 03/10/2019) Performed for Flank pain * URINALYSIS REFLEX MICROSCOPIC REFLEX CULTURE(Performed 03/10/2019) Performed for Flank pain * CULTURE STREP GROUP A(Performed 03/10/2019) Performed for Supervision of high risk in second trimester ([facility]), Sore throat * CULTURE URINE(Performed 03/10/2019) Performed for Flank pain * STREP A SCREEN DIRECT W RFLX STREP A CULTURE(Performed 03/10/2019) Performed for Supervision of high risk in second trimester ([facility]), Sore throat * SONOGRAM - TRANSVAGINAL(Performed 03/10/2019) * GLUCOSE PROTEIN KETONE URINE - POINT OF CAR(Performed 03/10/2019) Performed for Supervision of high risk in second trimester ([facility]) * URINE DRUG SCREEN IMMUNOASSAY(Performed 03/10/2019) Performed for Evaluate anatomy not seen on prior sonogram, Antepartum multigravida of advanced maternal age ([facility]) * EKG 12-LEAD(Performed 03/10/2019) Performed for Supervision of high risk , antepartum ([facility]), Methadone maintenance treatmentcomplicating , antepartum ([facility]) * URINE MICROSCOPIC ONLY REFLEX TO CULTURE(Performed 03/06/2019) Performed for Vaginal discharge during , antepartum ([facility]) * URINALYSIS REFLEX MICROSCOPIC REFLEX CULTURE(Performed 03/06/2019) Performed for Vaginal discharge during , antepartum ([facility]) * URINE DRUG SCREEN IMMUNOASSAY(Performed 03/06/2019) Performed for Methadone maintenance treatment complicating , antepartum ([facility]), Supervisionof high risk in second trimester ([facility]) * CULTURE URINE(Performed 03/06/2019) Performed for Vaginal discharge during , antepartum ([facility]) * KETONES URINE - POINT OF CARE(Performed 03/06/2019) * URINE MICROSCOPIC ONLY REFLEX TO CULTURE(Performed 02/26/2019) Performed for Uterine contractions during ([facility]) * URINALYSIS REFLEX MICROSCOPIC REFLEX CULTURE(Performed 02/26/2019) Performed for Uterine contractions during ([facility]) * CULTURE URINE(Performed 02/26/2019) Performed for Uterine contractions during ([facility]) * CHLAMYDIA + GC AMPLIFIED PROBE(Performed 02/26/2019) Performed for Uterine contractions during ([facility]) * TRICHOMONAS RAPID TEST(Performed 02/26/2019) Performed for Uterine contractions during ([facility]) * SONOGRAM - COMPLETE(Performed 02/24/2019) * GLUCOSE PROTEIN KETONE URINE - POINT OF CAR(Performed 02/24/2019) Performed for Supervision of high risk in second trimester ([facility]) * URINE DRUG SCREEN IMMUNOASSAY(Performed 02/24/2019) Performed for Supervision of high risk in second trimester ([facility]) * SONOGRAM - TRANSVAGINAL(Performed 01/27/2019) * GLUCOSE PROTEIN KETONE URINE - POINT OF CAR(Performed 01/27/2019) Performed for Supervision of high risk in second trimester ([facility]), Methadone maintenance treatment complicating , antepartum ([facility]) * URINE DRUG SCREEN IMMUNOASSAY(Performed 01/27/2019) Performed for Supervision of high risk in second trimester ([facility]), Methadone maintenance treatment complicating , antepartum ([facility]) * SONOGRAM - COMPLETE(Performed 01/06/2019) * GLUCOSE PROTEIN KETONE URINE - POINT OF CAR(Performed 01/06/2019) Performed for Supervision of high risk in second trimester ([facility]), Methadone maintenance treatment complicating , antepartum ([facility]) * URINE DRUG SCREEN IMMUNOASSAY(Performed 01/06/2019) Performed for Supervision of high risk in second trimester ([facility]), Methadone maintenance treatment complicating , antepartum ([facility]) * TRICHOMONAS VAGINALIS AMPLIFIED PROBE(Performed 12/30/2018) Performed for Supervision of high risk in second trimester ([facility]), Abdominal cramping affecting ([facility]) * CHLAMYDIA + GC AMPLIFIED PROBE(Performed 12/30/2018) Performed for Abdominal cramping affecting ([facility]), Supervision of high risk in second trimester ([facility]) * BACTERIAL VAGINOSIS + YEAST SMEAR(Performed 12/30/2018) Performed for Abdominal cramping affecting ([facility]), Supervision of high risk in second trimester ([facility]) * FENTANYL URINE(Performed 12/30/2018) Performed for Supervision of high risk in second trimester ([facility]), Methadone maintenance treatment complicating , antepartum ([facility]), Obesity affecting in second trimester ([facility]) * URINE MICROSCOPIC ONLY(Performed 12/30/2018) Performed for Supervision of high risk in second trimester ([facility]), Abdominal cramping affecting ([facility]) * URINALYSIS REFLEX TO MICROSCOPIC NO CULTURE(Performed 12/30/2018) Performed for Supervision of high risk in second trimester ([facility]), Abdominal cramping affecting ([facility]) * CULTURE URINE(Performed 12/30/2018) Performed for Supervision of high risk in second trimester ([facility]), Abdominal cramping affecting ([facility]) * SONOGRAM - TRANSVAGINAL(Performed 12/30/2018) * GLUCOSE PROTEIN KETONE URINE - POINT OF CAR(Performed 12/30/2018) Performed for Supervision of high risk in second trimester ([facility]) * URINE DRUG SCREEN IMMUNOASSAY(Performed 12/30/2018) Performed for Antepartum multigravida of advanced maternal age ([facility]) * URINE MICROSCOPIC ONLY REFLEX TO CULTURE(Performed 12/09/2018) Performed for Cramping affecting , antepartum ([facility]) * FENTANYL URINE(Performed 12/09/2018) Performed for Methadone maintenance treatment complicating , antepartum ([facility]) * URINALYSIS REFLEX MICROSCOPIC REFLEX CULTURE(Performed 12/09/2018) Performed for Cramping affecting , antepartum ([facility]) * CULTURE URINE(Performed 12/09/2018) Performed for Cramping affecting , antepartum ([facility]) * SONOGRAM - COMPLETE(Performed 12/09/2018) * GLUCOSE PROTEIN KETONE URINE - POINT OF CAR(Performed 12/09/2018) Performed for Supervision of high risk in second trimester ([facility]) * URINE DRUG SCREEN IMMUNOASSAY(Performed 12/09/2018) Performed for Antepartum multigravida of advanced maternal age ([facility]) * CHLAMYDIA + GC AMPLIFIED PROBE(Performed 11/11/2018) Performed for Supervision of high risk , antepartum ([facility]) * PAP LB HPV HR DNA(Performed 11/11/2018) Performed for Cervical cancer screening * TRICHOMONAS RAPID TEST(Performed 11/11/2018) Performed for Supervision of high risk , antepartum ([facility]) * TYPE + SCREEN PANEL(Performed 11/11/2018) Performed for Supervision of high risk , antepartum ([facility]) * HEMOGLOBIN A1C(Performed 11/11/2018) Performed for Supervision of high-risk of elderly multigravida ([facility]), History of diet controlled gestational diabetes mellitus (GDM), Obesity (BMI 30-39.9) * RUBELLA ANTIBODY IGG(Performed 11/11/2018) Performed for Supervision of high risk , antepartum ([facility]) * SYPHILIS ANTIBODY CASCADING REFLEX(Performed 11/11/2018) Performed for Supervision of high risk , antepartum ([facility]) * HEPATITIS B SURFACE ANTIGEN W RFLX CONFIRMATION(Performed 11/11/2018) Performed for Supervision of high risk , antepartum ([facility]) * CBC W AUTO DIFFERENTIAL(Performed 11/11/2018) Performed for Supervision of high risk , antepartum ([facility]) * FERRITIN(Performed 11/11/2018) Performed for Supervision of high risk , antepartum ([facility]) * HEPATITIS C ANTIBODY(Performed 11/11/2018) Performed for Supervision of high risk , antepartum ([facility]) * HEPATITIS B SURFACE ANTIGEN W RFLX CONFIRMATION(Performed 11/11/2018) Performed for Supervision of high risk , antepartum ([facility]) * CYSTIC FIBROSIS MUTATION PANEL(Performed 11/11/2018) Performed for Supervision of high risk , antepartum ([facility]) * COMPREHENSIVE METABOLIC PANEL(Performed 11/11/2018) Performed for Supervision of high risk , antepartum ([facility]) * HEMOGLOBIN ELECTROPHORESIS(Performed 11/11/2018) Performed for Supervision of high risk , antepartum ([facility]) * HIV-1 HIV-2 ANTIBODY + HIV P24 AG PANEL(Performed 11/11/2018) Performed for Supervision of high risk , antepartum ([facility]) * GLUCOSE CHALLENGE(Performed 11/11/2018) Performed for Supervision of high-risk of elderly multigravida ([facility]), History of diet controlled gestational diabetes mellitus (GDM) * URINE MICROSCOPIC ONLY(Performed 11/11/2018) Performed for Supervision of high risk , antepartum ([facility]) * URINALYSIS REFLEX TO MICROSCOPIC NO CULTURE(Performed 11/11/2018) Performed for Supervision of high risk , antepartum ([facility]) * SONOGRAM - COMPLETE(Performed 11/11/2018) * GLUCOSE [...] - 10.7 x10E9/L 05/25/2019 4:05 PM CDT [facility] WBC Corrected 05/25/2019 4:05 PM CDT [facility] RBC 3.44(L) 3.80 - 5.20 x10E12/L 05/25/2019 4:05 PM CDT [facility] Hemoglobin 9.4(L) 12.0 - 15.6 gm/dL 05/25/2019 4:05 PM CDT [facility] Hematocrit 30.8(L) 35.9 - 45.5 % 05/25/2019 4:05 PM CDT [facility] MCV 89.5 80.7 - 98.3 fl 05/25/2019 4:05 PM CDT [facility] MCH 27.3 26.7 - 34.0 pg 05/25/2019 4:05 PM CDT [facility] MCHC 30.5(L) 30.8 - 35.9 gm/dL 05/25/2019 4:05 PM CDT [facility] Platelet Count 508(H) 153 - 416 x10E9/L 05/25/2019 4:05 PM CDT [facility] RDW-CV 14.6 12.1 - 14.9 % 05/25/2019 4:05 PM CDT [facility] MPV 9.5 9.4 - 12.9 fl 05/25/2019 4:05 PM CDT [facility] Neutrophils % 62.6 44.0 - 73.0 % 05/25/2019 4:05 PM CDT [facility] Lymphocytes % 26.2 20.0 - 43.0 % 05/25/2019 4:05 PM CDT [facility] Monocytes % 9.0 5.0 - 13.0 % 05/25/2019 4:05 PM CDT [facility] Eosinophils % 1.2 0.0 - 6.0 % 05/25/2019 4:05 PM CDT [facility] Basophils % 0.6 0.0 - 2.0 % 05/25/2019 4:05 PM CDT [facility] Immature Granulocytes 0.4 0 - 1 % 05/25/2019 4:05 PM CDT [facility] Neutrophil Absolute 5.22 2.01 - 7.14 x10E9/L 05/25/2019 4:05 PM CDT [facility] Lymphocytes Absolute 2.18 1.07 - 3.94 x10E9/L 05/25/2019 4:05 PM CDT [facility] Monocytes Absolute 0.75 0.26 - 1.07 x10E9/L 05/25/2019 4:05 PM CDT [facility] Eosinophils Absolute 0.10 0 - 0.47 x10E9/L 05/25/2019 4:05 PM CDT [facility] Basophils Absolute 0.05 0 - 0.08 x10E9/L 05/25/2019 4:05 PM CDT [facility] Immature Granulocytes Absolute 0.03 0.00 - 0.06 x10E9/L 05/25/2019 4:05 PM CDT [facility] nRBC Auto 0 /100 WBC 05/25/2019 4:05 PM CDT [facility] Blood BLOOD SPECIMEN / Unknown Venipuncture / Unknown 05/25/2019 3:47 PM CDT 05/25/2019 4:00 PM CDT Becky Saab MD LAB - HEMATOLOGY ORD ERABLES [facility] [address] [place] [address] * (ABNORMAL) COMPREHENSIVE METABOLIC PANEL (05/25/2019 3:47 PM CDT) Only the most recent of5 resultswithin the time period is included. [facility] Signature Glucose 80 70 - 105 mg/dL 05/25/2019 4:21 PM [facility] Sodium 139 136 - 145 mmol/L 05/25/2019 4:21 PM [facility] Potassium 4.4 3.5 - 5.1 mmol/L 05/25/2019 4:21 PM [facility] Chloride 103 98 - 107 mmol/L 05/25/2019 4:21 PM [facility] CO2 30 23 - 31 mmol/L 05/25/2019 4:21 PM [facility] Calcium 8.9 8.4 - 10.4 mg/dL 05/25/2019 4:21 PM [facility] Anion Gap 6(L) 8 - 16 mmol/L 05/25/2019 4:21 PM [facility] BUN 17 7 - 18.7 mg/dL 05/25/2019 4:21 PM [facility] Creatinine 0.89 0.57 - 1.11 mg/dL 05/25/2019 4:21 PM [facility] Alkaline Phosphatase 295(H) 40 - 150 U/L 05/25/2019 4:21 PM [facility] ALT 62(H) 0 - 61 U/L 05/25/2019 4:21 PM [facility] AST 27 5 - 34 U/L 05/25/2019 4:21 PM [facility] Protein Total 7.0 6.4 - 8.3 gm/dL 05/25/2019 4:21 PM [facility] Albumin 3.4(L) 3.5 - 5.2 gm/dL 05/25/2019 4:21 PM [facility] Bilirubin Total 0.2 0.2 - 1.0 mg/dL 05/25/2019 4:21 PM [facility] eGFR by MDRD >60 >60 mL/min/1.7 3m2 05/25/2019 4:21 PM [facility] eGFR by MDRD >60 >60 mL/min/1.7 3m2 05/25/2019 4:21 PM [facility] Blood BLOOD SPECIMEN / Unknown Venipuncture / Unknown 05/25/2019 3:47 PM CDT 05/25/2019 4:00 PM CDT Becky Saab MD LAB - CHEMISTRY RM MOSS Performing Organization Address City/[facility]/ZIP Co de Phone Number [facility] [address] [place] [address] * IMAGING RADIOLOGY XRAY RESULTS ORDER (05/17/2019 [...] (Bezet) 416 ms [facility] MUSE Calculated P [place] 35 degrees [facility] MUSE Calculated R [place] 37 degrees [facility] MUSE Calculated T [place] 35 degrees [facility] MUSE Interpretation EKG NORMAL SINUS RHYTHM POSSIBLE LEFT ATRIAL ENLARGEMENT BORDERLINE ECG WHEN COMPARED WITH ECG OF 17-MAR-2019 13:33, NO SIGNIFICANT CHANGE WAS FOUND Confirmed by Tanvir Loya ([id number]) on 05/13/2019 11:09:05 PM [facility] MUSE 05/13/2019 10:2 7 AM CDT 05/13/2019 11:09 PM CDT Daylin Toro MD ECG ORDERABLES [facility] * (ABNORMAL) BLOOD GASES CORD GENIA [...] 05/12/2019 4:05 PM CDT [facility] RESP THERAPY Lime Trimmer ID [id number] 05/12/2019 4:05 PM CDT [facility] Blood CORD BLOOD SPECIMEN / Unknown 05/12/2019 3:55 PM CDT 05/12/2019 3:55 PM CDT Vinod Dent MD LAB - BLOOD GASES OR DERABLES [facility] [address] [phone] * GROSS + MICRO EXAM (STL) (05/12/2019 3:53 PM CDT) Only the most recent of3 resultswithin the time period is included. Case Report Surgical Pathology Report ? Case: [id number] ? Authorizing Provider: ??Celestine Álvarez MD ? Collected: ? 05/12/2019 03:53 PM ? Ordering Location: ? [facility] 5 LDR ? Received: ?05/13/2019 06:00 AM ? Pathologist: ? Brandin Chase MD ? Specimens: ?? A) - Fallopian Tube ? B) - Fallopian Tube ? 05/16/2019 11:27 AM [facility] Final Diagnosis Fallopian tube, right, tubal ligation: --Negative for significant histopathologic abnormalities Fallopian tube, left, tubal ligation: --Negative for significant histopathologic abnormalities 05/16/2019 11:27 AM [facility] Clinical History The patient is a 39-year-old woman who underwent tubal ligation. 05/16/2019 11:27 AM [facility] Gross Description The requisition and specimen labels are identified with the patient's name, Jaycee Slater. Received in formalin specimen A, right fallopian tube , is a 1.8 cm in length x 0.8 cm in diameter segment of fallopian tube. The serosa is cowan-brown and smooth. The specimen is serially sectioned to show an unremarkable pinpoint lumen. Junior Programmer Analyst sections are submitted in cassette A1. Received in formalin specimen B, left fallopian tube , is a 1.5 cm in length x 0.6 cm in diameter segment of fallopian tube. The serosa is coawn-brown and smooth. The specimen is serially sectioned to show an unremarkable pinpoint lumen. The specimen is entirely submitted in cassette B1. MIKKI/pasha 05/16/2019 11:27 AM T [facility] Microscopic Description Complete cross sections of both fallopian tubes are identified. 05/16/2019 11:27 AM T [facility] Disclaimer All histochemical and/or immunohistochemical results are interpreted with controls that demonstrate appropriate staining reactions before reporting results. Note on use of immunocytochemistry reagents: This test was developed and its performance characteristic determined by [facility], Department of Laboratory Medicine. It has not [...] interpreted with caution. 05/16/2019 11:27 AM T [facility] Embedded Images 05/16/2019 11:27 AM T [facility] Pathology/Cytology FALLOPIAN TUBE PART / Unknown 05/12/2019 3:53 PM CDT 05/13/2019 6:00 AM CDT Miscellaneous samples (specimen) FALLOPIAN TUBE PART / Unknown 05/12/2019 3:59 PM CDT 05/13/2019 6:00 AM CDT Celestine Álvarez MD LAB - PATHOLOGY/CYTO LOGY ORDERABLES Performing Organization Address [facility] Co de Phone Number [facility] [address] [place] [address] * Neuraxial Block (05/12/2019 3:31 PM CDT) Narrative Ayan Reynaga APRN-PERSONNEL COORDINATOR - 05/12/2019 3:31 PM CDT Ayan Reynaga [...] throughout. Staff: ?? Anesthesia Provider: ??Ayan Reynaga, BALANCE WHEEL FACER-PERSONNEL COORDINATOR ?? - ?? performed the procedure Yanira Tanner MD GENERAL ANESTH ESIA ORDERABLES * (ABNORMAL) DRUG SCREEN TOX URINE PANEL (05/12/2019 2:50 PM CDT) Only the most recent of21 resultswithin the time period is included. Pathologist [facility] Amphetamines Screen Urine Not detected Not detected 05/12/2019 3:15 PM CDT [facility] Barbiturates Screen Urine Not detected Not detected 05/12/2019 3:15 PM CDT [facility] Benzodiazepines Screen Urine Not detected Not detected 05/12/2019 3:15 PM CDT [facility] Cannabinoids Screen Urine Not detected Not detected 05/12/2019 3:15 PM CDT [facility] Cocaine Screen Urine Not detected Not detected 05/12/2019 3:15 PM CDT [facility] Fentanyl Urine Not detected Not detected 05/12/2019 3:15 PM CDT [facility] Methadone Screen Urine Detected(A) Not detected 05/12/2019 3:15 PM CDT [facility] Opiate Screen Urine Not detected Not detected 05/12/2019 3:15 PM CDT [facility] Phencyclidine Screen Urine Not detected Not detected 05/12/2019 3:15 PM CDT [facility] Urine URINE / Unknown Collection / Unknown 05/12/2019 2:50 PM CDT 05/12/2019 2:52 PM CDT Narrative [facility] - 05/12/2019 3:15 PM CDT This [...] URINE CHEMISTR Y ORDERABLES Performing Organization Address [facility]/State/ZIP Co de Phone Number [facility] [address] [place] [phone] * PREPARE (CROSSMATCH) RBC UNIT(S), 2 Units (05/12/2019 2:00 PM CDT) Pathologist [facility] Product Code D2093X23 [facility] Unit Donor # [id number] [facility] ABO Donor Type A [facility] Rh [facility] Unit POS [facility] Unit Status Ret'd HC BLO OD BANK LAB ABO Rh Type Unit APOS [facility] Donor Unit Expiration Date [id number] [facility] Blood Type Barcode 6200 [facility] Product Code Y0585Q85 [facility] B[facility] Donor # [id number] S [facility] ABO Donor Type A [facility] Rh Type Unit POS [facility] Unit Status Ret'd [facility] ABO Rh Type Unit APOS [facility] Donor Unit Expiration Date [id number] [facility] Blood Type Barcode [address]200 [facility] Blood Bank BLOOD SPECIMEN / Unknown 05/12/2019 2:00 PM CDT Rain Loya MD LAB - BLOOD BANK ORD ERABLES Performing Organization Address City/[facility]/ZIP Co de Phone Number [facility] [address] [place] [address] * TYPE + SCREEN PANEL (05/12/2019 11:02 AM CDT) Only the most recent of5 resultswithin the time period is included. ABO A 05/12/2019 11:34 AM CDT [facility] Rh Type Positive 05/12/2019 11:34 AM CDT [facility] Comment:History checked. Antibody Screen Negative 05/12/2019 11:34 AM CDT [facility] Blood Bank BLOOD SPECIMEN / Unknown Venipuncture / Unknown 05/12/2019 11:02 AM CDT 05/12/2019 11:10 AM CDT Ellen Childs MD LAB - BLOOD BANK OR DERABLES Performing Organization Address City/[facility]/ZIP Co de Phone Number [facility] [address] [place] [address] * GLUCOSE PROTEIN KETONE URINE - POINT [...] 05/12/2019 8 :50 AM CDT Ivana Thomas BALANCE WHEEL FACER-AUCTIONEER TOBACCO LAB - POINT OF CARE ORDERABLES [facility] POCT TESTING [address] [place] [address], [facility] [phone] * SONOGRAM - COMPLETE (05/11/2019 8:43 AM CDT) Only the most recent of9 resultswithin the time period is included. Anatomical Region Laterality Modality Other 05/11/2019 8:43 AM CDT Narrative 05/11/2019 10:35 AM CDT ? [facility] ?PHONE: ??FAX: Pat. Name: ?JAYCEE SLATER Pat. No: ?[id number] Study Date: ?? 05/11/2019 ??8:43am , Age: ? 1980, 39 Height: ? 61 in Weight: ? 175 lb LMP: ?Unknown GA by Base: ?? 36w2d ?? NEGRO: 06/06/2019 GA by US: ? 35w2d ?? NEGRO: 06/13/2019 GA Selected: ??36w2d (From Baselin) NEGRO: ?06/06/2019 Referring MD: Kimberli Galloway MD National Sales Trainer: ??Silvina Fair RDMS CPT4: ? 26611 BMI: ?33.06 Hist/Ind: ? AMA, low-risk NIPT ?Opioid dependence, on methadone ?History of LEEP ?G5 & G7: Late (36 week) PTD x 2 ?G5: Macrosomia ?History of GDM ?Class I obesity MEASUREMENTS & AGE ? GROWTH EVALUATION Measurement ??GA ? Range ? Srce %for GA Ratios ----- ---- ------- BPD ??8.4 cm 33w5d (43s0f-74p7k) Hadl BPD 4% FL/BPD 0.81 (0.71 - 0.87) HC ??32.6 cm 37w0d (19d5q-59v3b) Hadl HC ??35% FL/AC ??0.21 (0.20 - 0.24) AC ??32.9 cm 36w5d (36h7k-35x3z) Hadl AC ??74% HC/AC ??0.99 (0.92 - 1.11) FL ?? 6.8 cm 35w0d (53o6w-30z6x) Hadl FL ??15% CI ? 0.71 (0.70 - 0.86) HL ?? 6.3 cm 36w3d (30n3z-41s5q) Eron HL ??51% GA for sonogram 35w2d (83w3w-15e1y) ?? Weight Estimate: based on (BPD,HC,AC,FL) Hadlock [...] <Electronic Signature> ??05/11/2019 10:35am Kimberli Galloway MD [facility] ORDERABLES * CULTURE STREP B (05/05/2019 10:21 AM CDT) Only the most recent of2 resultswithin the time period is included. Culture Strep B Negative for beta-hemolytic Streptococcus Group B KENNY 05/08/2019 8:43 AM CDT [facility] MICROBIOLOGY Microbiology MISCELLANEOUS SAMPLES / Unknown Collection / Unknown 05/05/2019 10:21 AM CDT 05/05/2019 10:35 AM CDT Ivana Thomas APRN-AUCTIONEER TOBACCO LAB - MICROBIOL OGY ORDERABLES Performing Organization Address City/[facility]/ZIP Co de Phone Number [facility] MICROBIOLOGY [address] [place] [address], [facility] [phone] * (ABNORMAL) URINE MICROSCOPIC ONLY REFLEX TO CULTURE (04/17/2019 3:16 PM WALLET ASSEMBLER) Only the most recent of6 resultswithin the time period is included. Reflex Status Culture to follow 04/17/2019 3:57 PM WALLET ASSEMBLER [facility] RBC UA 0-2 None Seen, 0-2, 3-5 # /hpf 04/17/2019 3:57 PM WALLET ASSEMBLER [facility] WBC UA 0-5 None Seen, 0-5 # /hpf 04/17/2019 3:57 PM WALLET ASSEMBLER [facility] Bacteria UA None Seen None Seen 04/17/2019 3:57 PM WALLET ASSEMBLER [facility] Squamous Epithelial Cells 6-10(A) None Seen, 0-2, 3-5 /hpf 04/17/2019 3:57 PM WALLET ASSEMBLER [facility] Mucus UA 4+ /LPF 04/17/2019 3:57 PM WALLET ASSEMBLER [facility] Urine URINE SPECIMEN OBTAINED BY CLEAN CATCH PROCEDURE / Unknown Collection / Unknown 04/17/2019 3:16 PM WALLET ASSEMBLER 04/17/2019 3:26 PM WALLET ASSEMBLER Narrative [facility] - 04/17/2019 3:57 PM WALLET ASSEMBLER Dory Guadarrama MD LAB - URINALYSIS ORD ERABLES Performing Organization Address City/[facility]/ZIP Co de Phone Number [facility] [address] [place] [address] * (ABNORMAL) URINALYSIS REFLEX MICROSCOPIC REFLEX CULTURE (04/17/2019 3:16 PM WALLET ASSEMBLER) Only the most recent of6 resultswithin the time period is included. Color UA Liseth(A) Straw, Yellow 04/17/2019 3:31 PM WALLET ASSEMBLER [facility] Clarity UA Slt Cloudy(A) Clear 04/17/2019 3:31 PM WALLET ASSEMBLER [facility] Glucose UA Negative Negative 04/17/2019 3:31 PM WALLET ASSEMBLER [facility] Bilirubin UA Negative Negative 04/17/2019 3:31 PM WALLET ASSEMBLER [facility] Ketone UA Trace(A) Negative 04/17/2019 3:31 PM WALLET ASSEMBLER [facility] Specific [place] UA 1.020 1.005 - 1.030 04/17/2019 3:31 PM WALLET ASSEMBLER [facility] Blood UA Negative Negative 04/17/2019 3:31 PM WALLET ASSEMBLER [facility] pH UA 7.0 5.0 - 8.0 pH 04/17/2019 3:31 PM WALLET ASSEMBLER [facility] Protein UA 1+(A) Negative 04/17/2019 3:31 PM WALLET ASSEMBLER [facility] Urobilinogen UA 2.0(A) Negative mg/dL 04/17/2019 3:31 PM WALLET ASSEMBLER [facility] Nitrite UA Negative Negative 04/17/2019 3:31 PM WALLET ASSEMBLER [facility] Leukocyte UA 1+(A) Negative 04/17/2019 3:31 PM [facility] Urine Microscopy Urine microscopy to follow 04/17/2019 3:31 PM WALLET ASSEMBLER [facility] Reflex Status Culture to follow 04/17/2019 3:31 PM [facility] Urine URINE SPECIMEN OBTAINED BY CLEAN CATCH PROCEDURE / Unknown Collection / Unknown 04/17/2019 3:16 PM WALLET ASSEMBLER 04/17/2019 3:26 PM WALLET ASSEMBLER Narrative [facility] - 04/17/2019 3:31 PM WALLET ASSEMBLER Ascorbic Acid can cause false negative urine strip tests for blood, glucose, nitrite, and bilirubin. Dory Guadarrama MD LAB - URINALYSIS ORD ERABLES Performing Organization Address [facility] Co de Phone Number [facility] [address] [place] [address] * CULTURE URINE (04/17/2019 3:16 PM WALLET ASSEMBLER) Only the most recent of8 resultswithin the time period is included. Culture Urine 10,000-50,000 CFU/mL urogenital stefany KENNY 04/19/2019 6:52 AM WALLET ASSEMBLER [facility] Urine URINE SPECIMEN OBTAINED BY CLEAN CATCH PROCEDURE / Unknown Collection / Unknown 04/17/2019 3:16 PM WALLET ASSEMBLER 04/17/2019 3:26 PM WALLET ASSEMBLER Dory Guadarrama MD LAB - MICROBIOLOGY O RDERABLES [facility] [address] [place] [address], [facility] [phone] * CARDIOLOGY CONSULT (04/01/2019 5:08 PM WALLET ASSEMBLER) Ivana Thomas BALANCE WHEEL FACER-AUCTIONEER TOBACCO OUTPATIENT CONS ULT * NONSTRESS TEST (03/29/2019 5:31 PM WALLET ASSEMBLER) Narrative Mone Malave MD - 03/29/2019 5:31 PM WALLET ASSEMBLER Radha Guadarrama MD ? 04/08/2019 10:47 PM [...] Schwab RN Non-Stress Test (NST) Jaycee Pendletonley [id number] 04/08/2019 10:46 PM Indications: nausea and vomiting [...] planned care Radha Guadarrama MD Evelyn Pontious BALANCE WHEEL FACER-CNM OB GYNE ORDERABLE S * NONSTRESS TEST (03/17/2019 6:22 PM WALLET ASSEMBLER) Narrative Kimberli Galloway MD - 03/17/2019 6:22 PM WALLET ASSEMBLER Michelle Mcdaniel MD ? 03/21/2019 ??8:08 AM Name: ??Jaycee Slater Date of : ??1980 Today's Date: ??03/17/2019 ?NST RESULTS ([facility]) OBJECTIVE FINDINGS , ??, ??, BP: 114/58 NST Indication(s): Other (Comment)(SOB) Uterine Irritability: No Contractions: Not present OBJECTIVE FINDINGS Movement: Present Monitoring Mode: External Baseline: 135 BPM Variability: Moderate Decelerations: None Accelerations: Yes OTHER INFORMATION 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 RN PGY1 CRAP GAME BOX PERSON Progress Note Indications: SOB Assessment/ Non-Stress Test ?Baseline: ??125 beats/minute mod variability ?Reactive ?Contractions: ??none ?Decelerations: ??none Michelle Mcdaniel MD 03/21/2019 8:08 AM Dory Guadarrama MD OB GYNE ORDERABLES * RESPIRATORY PATHOGEN PANEL BY PCR (03/17/2019 5:07 PM WALLET ASSEMBLER) Adenovirus PCR Not detected Not detected, Invalid, Indeterminate 03/17/2019 9:47 PM WALLET ASSEMBLER [facility] Coronavirus PCR Not detected Not detected, Invalid, Indeterminate 03/17/2019 9:47 PM WALLET ASSEMBLER [facility] Human Metapneumovirus PCR Not detected Not detected, Invalid, Indeterminate 03/17/2019 9:47 PM WALLET ASSEMBLER [facility] Human Rhinovirus/Entero virus PCR Not detected Not detected, Invalid, Indeterminate 03/17/2019 9:47 PM WALLET ASSEMBLER [facility] Influenza A PCR Not detected Not detected, Equivocal, Invalid, Indeterminate 03/17/2019 9:47 PM [facility]ALLET ASSEMBLER [facility] Influenza B PCR Not detected Not detected, Invalid, Indeterminate 03/17/2019 9:47 PM WALLET ASSEMBLER [facility] Parainfluenza Virus 1 PCR Not detected Not detected, Invalid, Indeterminate 03/17/2019 9:[address] [facility] Parainfluenza Virus 2 PCR Not detected Not detected, Invalid, Indeterminate 03/17/2019 9:[address] [facility] Parainfluenza Virus 3 PCR Not detected Not detected, Invalid, Indeterminate 03/17/2019 9:47 PM WALLET ASSEMBLER [facility] Parainfluenza Virus 4 PCR Not detected Not detected, Invalid, Indeterminate 03/17/2019 9:47 PM WALLET ASSEMBLER [facility] Respiratory Syncytial Virus PCR Not detected Not detected, Invalid, Indeterminate 03/17/2019 9:[address] [facility] Bordetella pertussis PCR Not detected Not detected, Invalid 03/17/2019 9:[address] [facility] Chlamydia pneumoniae PCR Not detected Not detected, Invalid, Indeterminate 03/17/2019 9:[address] [facility] Mycoplasma pneumoniae PCR Not detected Not detected, Invalid, Indeterminate 03/17/2019 9:[address] [facility] Microbiology SPECIMEN FROM NASOPHARYNGEAL STRUCTURE / Unknown Collection / Unknown 03/17/2019 5:07 PM WALLET ASSEMBLER 03/17/2019 5:15 PM WALLET ASSEMBLER Michelle Mcdaniel MD LAB - MICROBIOLOGY O RDERABLES [facility] [address] [place] [address], [facility] [phone] * CT ANGIO CHEST PULM EMBOLISM (03/17/2019 4:10 PM WALLET ASSEMBLER) Anatomical Region Laterality Modality Chest Computed Tomogra phy 03/17/2019 4:12 PM WALLET ASSEMBLER Impressions 03/17/2019 4:14 PM WALLET ASSEMBLER No evidence for pulmonary embolism. Dependent atelectasis. No focal infiltrates. Reading Radiologist: Pascual Chacon MD on 03/17/2019 at 4:14 PM Narrative 03/17/2019 4:[address] Chest Angiography with IV contrast INDICATION: [...] ECHOCARDIOGRAM 2D WITH DOPPLER (03/17/2019 12:36 PM WALLET ASSEMBLER) 03/17/2019 12:3 [address] [facility] CARDIOLOGY - 03/17/2019 2:38 PM WALLET ASSEMBLER [address] [address] Transthoracic Echocardiogram 2D, M-mode, Doppler, and Color Doppler Patient: JAYCEE SLATER MR number: [id number] Height: 61 in Weight: 201.5 lb BSA: 1.9 m?? Study date: 17-Mar-2019 : 1980 Age: 39 years Gender: Female Race: Allergies: CODEINE, PENICILLINS, NAPROXEN, KETOROLAC National Sales Trainer: ??Justine Holder RDCS Referring Physician: ??Kinga Ngo MD Reading Physician: ??Deborah Thibodeaux DO Summary: - ??Clinical question: - [...] Procedure Note Deborah Thibodeaux DO - 03/17/[address] [place] [address] Transthoracic Echocardiogram 2D, M-mode, Doppler, and Color Doppler Patient: JAYCEE SLATER MR number: [id number] Height: 61 in Weight: 201.5 lb BSA: 1.9 m?? Study date: 17-Mar-2019 : 1980 Age: 39 years Gender: Female Race: Allergies: CODEINE, PENICILLINS, NAPROXEN, KETOROLAC National Sales Trainer: Justine Holder RDCS Referring Physician: Kinga Ngo [...] 17-Mar-2019 14:37:48 Kinga Ngo MD ECHO ORDERABLES [facility] [address] [place] [address] * XR CHEST 1VW PORTABLE (03/17/2019 12:25 PM WALLET ASSEMBLER) Anatomical Region Laterality Modality Chest Radiographic Daniella ging 03/17/2019 1:23 PM WALLET ASSEMBLER Impressions 03/17/2019 1:23 PM WALLET ASSEMBLER Clear lungs. Reading Radiologist: Ted Schulte MD on 03/17/2019 at 1:23 PM Narrative 03/17/2019 1:23 PM WALLET ASSEMBLER Chest x-ray single view. HISTORY: Vomiting. Single view of the chest shows normal heart size with normal vessels. Lungs are clear. The abdomen is shielded. Procedure Note Ted Schulte MD - 03/17/2019 Chest x-ray single view. HISTORY: Vomiting. Single view of the chest shows normal heart size with normal vessels. Lungs are clear. The abdomen is shielded. IMPRESSION Clear lungs. Reading Radiologist: Ted Schulte MD on 03/17/2019 at 1:23 PM Michelle Mcdaniel MD DIAGNOSTIC IMAGING O RDERABLES * TROPONIN I (03/17/2019 11:42 AM WALLET ASSEMBLER) Troponin I <0.010 <0.038 ng/mL 03/17/2019 12:26 PM WALLET ASSEMBLER [facility] Blood BLOOD SPECIMEN / Unknown Venipuncture / Unknown 03/17/2019 11:42 AM WALLET ASSEMBLER 03/17/2019 11:52 AM WALLET ASSEMBLER Michelle Mcdaniel MD LAB - CHEMISTRY RM MOSS [facility] Organization Address City/State/[facility] Co de Phone Number [facility] [address] [place] [address] * B-TYPE NATRIURETIC PEPTIDE (03/17/2019 11:42 AM WALLET ASSEMBLER) BNP 22 <=100 pg/mL 03/17/2019 2:38 PM WALLET ASSEMBLER [facility] Blood BLOOD SPECIMEN / Unknown Venipuncture / Unknown 03/17/2019 11:42 AM WALLET ASSEMBLER 03/17/2019 11:52 AM WALLET ASSEMBLER Narrative [facility] - 03/17/2019 2:38 PM WALLET ASSEMBLER A cutoff of 100 pg/mL has been [...] - CHEMISTRY OR DERABLES Performing Organization Address [facility] Co de Phone Number [facility] [address] [place] [phone] * PHOSPHORUS BLOOD (03/17/2019 11:42 AM WALLET ASSEMBLER) Phosphorus 3.9 2.3 - 4.7 mg/dL 03/17/2019 12:21 PM WALLET ASSEMBLER [facility] Blood BLOOD SPECIMEN / Unknown Venipuncture / Unknown 03/17/2019 11:42 AM WALLET ASSEMBLER 03/17/2019 11:52 AM WALLET ASSEMBLER Michelle Mcdaniel MD LAB - CHEMISTRY RM MOSS Performing Organization Address [facility] de Phone Number [facility] [address] [place] [phone] * MAGNESIUM BLOOD (03/17/2019 11:42 AM WALLET ASSEMBLER) Magnesium 1.9 1.6 - 2.6 mg/dL 03/17/2019 12:21 PM WALLET ASSEMBLER [facility] Blood BLOOD SPECIMEN / Unknown Venipuncture / Unknown 03/17/2019 11:42 AM WALLET ASSEMBLER 03/17/2019 11:52 AM WALLET ASSEMBLER Michelle Mcdaniel MD LAB - CHEMISTRY RM MOSS Performing Organization Address [facility] de Phone Number [facility] [address] [place] [phone] * CK BLOOD (03/17/2019 11:42 AM WALLET ASSEMBLER) CK 30 29 - 168 U/L 03/17/2019 12:21 PM WALLET ASSEMBLER [facility] Blood BLOOD SPECIMEN / Unknown Venipuncture / Unknown 03/17/2019 11:42 AM WALLET ASSEMBLER 03/17/2019 11:52 AM WALLET ASSEMBLER Michelle Mcdaniel MD LAB - CHEMISTRY RM MOSS Performing Organization Address [facility] Co de Phone Number [facility] [address] [place] [address] * (ABNORMAL) TSH (03/17/2019 11:42 AM WALLET ASSEMBLER) TSH 5.2847(H) 0.35 - 4.94 uIU/mL 03/17/2019 1:11 PM [employer] [facility] Blood BLOOD SPECIMEN / Unknown Venipuncture / Unknown 03/17/2019 11:42 AM [employer] 03/17/2019 11:52 AM [employer] Michelle Mcdaniel MD LAB - CHEMISTRY RM MOSS Performing Organization Address [facility] Co de Phone Number [facility] 36 [place] [address] * T4 FREE (03/17/2019 11:42 AM WALLET ASSEMBLER) Pathologist [facility] T4 Free 0.71 0.70 - 1.48 ng/dL 03/17/2019 2:52 PM WALLET ASSEMBLER [facility] Blood BLOOD SPECIMEN / Unknown Venipuncture / Unknown 03/17/2019 11:42 AM WALLET ASSEMBLER 03/17/2019 11:52 AM WALLET ASSEMBLER Daylin Cardona MD LAB - CHEMISTRY OR DERABLES Performing Organization Address [facility] Co de Phone Number [facility] [address] [place] [address] * NONSTRESS TEST (03/10/2019 5:10 PM WALLET ASSEMBLER) Narrative Ponleslye, Evelyn, BALANCE WHEEL FACER-CNM - 03/10/2019 5:10 PM WALLET ASSEMBLER Dipika Perez RN ? 03/10/2019 ??5:11 PM [...] OTHER INFORMATION Dipika Perez, RN Evelyn Altman BALANCE WHEEL FACER-CNM OB GYNE ORDERABLE S * SYPHILIS ANTIBODY CASCADING REFLEX (03/10/2019 1:24 PM WALLET ASSEMBLER) Only the most recent of2 resultswithin the time period is included. Treponema pallidum Antibody Non Reactive Non Reactive 03/10/2019 3:02 PM WALLET ASSEMBLER [facility] Comment: No Laboratory evidence of syphilis infection. ?? Note: ??Circulating antibodies may be low or undetectable in early infection. ??If recent exposure is suspected, re-draw sample in 2-4 weeks and repeat testing. Blood BLOOD SPECIMEN / Unknown Venipuncture / Unknown 03/10/2019 1:24 PM WALLET ASSEMBLER 03/10/2019 1:50 PM WALLET ASSEMBLER Ivana Thomas BALANCE WHEEL FACER-[facility] LAB - SEROLOGY ORDERABLES Performing Organization Address [facility] de Phone Number [facility] [address] [place], [place] [phone] * HIV-1 HIV-2 ANTIBODY + HIV P24 AG PANEL (03/10/2019 1:24 PM WALLET ASSEMBLER) Only the most recent of3 resultswithin the time period is included. HIV1/2 Ab + P24 Ag Non Reactive Non Reactive 03/10/2019 2:57 PM WALLET ASSEMBLER [facility] Blood BLOOD SPECIMEN / Unknown Venipuncture / Unknown 03/10/2019 1:24 PM WALLET ASSEMBLER 03/10/2019 1:49 PM WALLET ASSEMBLER Narrative [facility] - 03/10/2019 2:57 PM WALLET ASSEMBLER No Laboratory evidence of HIV infection. Ivana Thomas BALANCE WHEEL FACER-[facility] LAB - CHEMISTRY ORDERABLES Performing Organization Address [facility] Co de Phone Number [facility] [address] [place] [address] * GLUCOSE CHALLENGE (03/10/2019 1:24 PM WALLET ASSEMBLER) Only the most recent of2 resultswithin the time period is included. Glucose Challenge 104 64 - 140 mg/dL 03/10/2019 4:13 PM WALLET ASSEMBLER [facility] Glucose Challenge Time 1324 03/10/2019 4:13 PM [facility] Blood BLOOD SPECIMEN / Unknown Venipuncture / Unknown 03/10/2019 1:24 PM WALLET ASSEMBLER 03/10/2019 1:49 PM WALLET ASSEMBLER Ivana Thomas BALANCE WHEEL FACER-[facility]BACCO LAB - CHEMISTRY ORDERABLES Performing Organization Address [facility] de Phone Number [facility] [address] [place], [place] [phone] * (ABNORMAL) IRON + TRANSFERRIN PANEL (03/10/2019 1:24 PM WALLET ASSEMBLER) Only the most recent of2 resultswithin the time period is included. Iron 48(L) 50 - 170 ug/dL 03/10/2019 5:02 PM [facility] Transferrin 435(H) 180 - 382 mg/dL 03/10/2019 5:02 PM [facility] TIBC Calculated 544(H) 240 - 450 ug/ml 03/10/2019 5:02 PM [facility] Iron Saturation % 9(L) 20 - 50 % 03/10/2019 5:02 PM [facility] Blood BLOOD SPECIMEN / Unknown Venipuncture / Unknown 03/10/2019 1:24 PM WALLET ASSEMBLER 03/10/2019 1:49 PM WALLET ASSEMBLER Palak Oreilly BALANCE WHEEL FACER-[facility] LAB - TELECASTING ENGINEER RY ORDERABLES Performing Organization Address [facility] Co de Phone Number [facility] [address] [place] [address] * FERRITIN (03/10/2019 1:24 PM WALLET ASSEMBLER) Only the most recent of3 resultswithin the time period is included. Ferritin 6 5 - 204 ng/mL 03/10/2019 5:22 PM [facility] Blood BLOOD SPECIMEN / Unknown Venipuncture / Unknown 03/10/2019 1:24 PM WALLET ASSEMBLER 03/10/2019 1:49 PM WALLET ASSEMBLER Palak Oreilly APRN-[facility] LAB - TELECASTING ENGINEER RY ORDERABLES Performing Organization Address [facility] Co de Phone Number [facility] [address] [place] [address] * STREP A SCREEN DIRECT W RFLX STREP A CULTURE (03/10/2019 1:12 PM WALLET ASSEMBLER) Strep A Rapid Negative Negative 03/10/2019 2:17 PM WALLET ASSEMBLER [facility] Microbiology ENTIRE THROAT (SURFACE REGION OF NECK) / Unknown Collection / Unknown 03/10/2019 1:12 PM WALLET ASSEMBLER 03/10/2019 1:52 PM WALLET ASSEMBLER Narrative [facility] - 03/10/2019 2:17 PM WALLET ASSEMBLER Test has reflexed to a Strep A culture. Ivana Thomas BALANCE WHEEL FACER-[facility] LAB - MICROBIOL OGY ORDERABLES Performing Organization Address [facility] Co de Phone Number [facility] [address] [place] [address] * CULTURE STREP GROUP A (03/10/2019 1:12 PM WALLET ASSEMBLER) Culture Negative for beta-hemolytic Streptococcus Group A KENNY 03/12/2019 7:47 AM WALLET ASSEMBLER [facility] Microbiology ENTIRE THROAT (SURFACE REGION OF NECK) / Unknown Collection / Unknown 03/10/2019 1:12 PM WALLET ASSEMBLER 03/10/2019 1:52 PM WALLET ASSEMBLER Ivana Thomas APRN-AUCTIONEER TOBACCO LAB - MICROBIOL OGY ORDERABLES Performing Organization Address [facility] Co de Phone Number [facility] [address] [place] [address], [facility] [phone] * SONOGRAM - TRANSVAGINAL (03/10/2019 12:29 PM WALLET ASSEMBLER) Only the most recent of3 resultswithin the time period is included. Anatomical Region Laterality Modality Other 03/10/2019 12:2 9 PM WALLET ASSEMBLER Narrative 03/10/2019 3:24 PM WALLET ASSEMBLER ? [facility] ?PHONE: ??FAX: Pat. Name: ?JAYCEE SLATER Pat. No: ?[id number] Study Date: ?? 03/10/2019 ??12:29pm , Age: ? 1980, 39 Height: ? 61 in Weight: ? 175 lb LMP: ?Unknown GA by Base: ?? 27w3d ?? NEGRO: 06/06/2019 GA Selected: ??27w3d (From [place]) NEGRO: ?06/06/2019 Referring MD: Kimberli Galloway MD National Sales Trainer: ??Silvina Fair RDMS CPT4: ? 04966,48837 BMI: ?33.06 Hist/Ind: ? Incomplete anatomic survey [...] <Electronic Signature> ??03/10/2019 03:24pm Kimberli Galloway MD [facility] ORDERABLES * KETONES URINE - POINT OF CARE (03/06/2019 1:07 PM WALLET ASSEMBLER) Ketone UA neg Negative [facility] POCT TESTING QC Verified Yes Yes [facility] POC T TESTING Urine URINE / Unknown 03/06/2019 1 :07 PM WALLET ASSEMBLER Becky Saab MD LAB - POINT OF CARE ORDERABLES Performing Organization Address City/[facility] Co de Phone Number [facility] POCT TESTING [address] [place] [address], [facility] [phone] * CHLAMYDIA + GC AMPLIFIED PROBE (STL) (02/26/2019 1:24 PM WALLET ASSEMBLER) Only the most recent of2 resultswithin the time period is included. [facility] Chlamydia Amplified Probe Negative Negative 02/28/2019 1:54 PM WALLET ASSEMBLER [facility] GC Amplified Probe Negative Negative 02/28/2019 1:54 PM WALLET ASSEMBLER [facility] Microbiology ENTIRE ENDOCERVIX / Unknown Collection / Unknown 02/26/2019 1:24 PM WALLET ASSEMBLER 02/26/2019 1:31 PM WALLET ASSEMBLER Narrative [facility] - 02/28/2019 1:54 PM WALLET ASSEMBLER Results based on detection/no detection of ribosomal RNA by amplified method. Doyr Guadarrama MD LAB - MICROBIOLOGY O RDERAHILDA Performing Organization Address [facility] Co de Phone Number [facility] [address] [place] [id number], [facility] [phone] * TRICHOMONAS RAPID TEST (02/26/2019 1:24 PM WALLET ASSEMBLER) Only the most recent of2 resultswithin the time period is included. [facility] Trichomonas Rapid Test Negative Negative 02/26/2019 1:55 PM WALLET ASSEMBLER [facility] Microbiology VAGINAL SWAB / Unknown Collection / Unknown 02/26/2019 1:24 PM WALLET ASSEMBLER 02/26/2019 1:31 PM WALLET ASSEMBLER Dory Guadarrama MD LAB - MICROBIOLOGY O RDERAHILDA Performing Organization Address [facility]/ZIP Co de Phone Number [facility] [address] [place] [address] * TRICHOMONAS VAGINALIS AMPLIFIED PROBE (12/30/2018 10:46 AM WALLET ASSEMBLER) Trichomonas vaginalis Amplified Probe Negative Negative 12/31/2018 8:15 AM WALLET ASSEMBLER [facility] Other URINE / Unknown Collection / Unknown 12/30/2018 10:46 AM WALLET ASSEMBLER 12/30/2018 11:08 AM WALLET ASSEMBLER Narrative [facility] - 12/31/2018 8:15 AM WALLET ASSEMBLER This test was developed and its performance characteristics determined by the [facility] Microbiology Laboratory, [facility]. Urine specimens tested by the [facility] have not been cleared or approved by the U.S. Food and Drug Administration (FDA). The laboratory is regulated under the Clinical Laboratory Improvement Amendments (CLIA) as qualified to perform high-complexity testing. This test is used for clinical purposes. It should not be regarded as investigational or for research. Results based on detection/no detection of ribosomal RNA by amplified method. Helen Zurita APRNFundRazr LAB - MICROBIO LOGY ORDERABLES Performing Organization Address City/[facility]/ZIP Co de Phone Number [facility] [address] [place] [address], [facility] [phone] * BACTERIAL VAGINOSIS + YEAST SMEAR (12/30/2018 10:46 AM WALLET ASSEMBLER) Clue Cells No Clue Cells Seen No Clue Cells Seen 12/31/2018 12:22 AM WALLET ASSEMBLER [facility] Yeast No Yeast Seen No Yeast Seen 01/01/20 12:22 AM WALLET ASSEMBLER [facility] Steven Score Steven Score 0-3: Consistent with normal vaginal stefany Steven Score 0-3: Consistent with normal vaginal stefany 12/31/2018 12:22 AM WALLET ASSEMBLER [facility] Microbiology ENTIRE VAGINA / Unknown Collection / Unknown 12/30/2018 10:46 AM WALLET ASSEMBLER 12/30/2018 11:08 AM WALLET ASSEMBLER Helen Zurita BALANCE WHEEL [facility] LAB - MICROBIO LOGY ORDERABLES Performing Organization Address City/[facility]/ZIP Co de Phone Number [facility] [address] [place] [address], [facility] [phone] * FENTANYL URINE (12/30/2018 9:39 AM WALLET ASSEMBLER) Only the most recent of3 resultswithin the time period is included. Fentanyl Negative ng/mL 01/12/2019 11:09 AM [facility] ([facility]) Comment:REFERENCE RANGE: NOT ESTABLISHED Norfentanyl Negative ng/mL 01/12/2019 11:09 AM [facility] ([facility]) Comment:REFERENCE RANGE: NOT ESTABLISHED Sufentanil Negative ng/mL 01/12/2019 11:09 AM [facility] ([facility]) Comment:REFERENCE RANGE: NOT ESTABLISHED Alfentanil Negative ng/mL 01/12/2019 11:09 AM [facility] ([facility]) Comment:REFERENCE RANGE: NOT ESTABLISHED Norsufentanil Negative ng/mL 01/12/2019 11:09 AM [facility] ([facility]) Comment:REFERENCE RANGE: NOT ESTABLISHED Acetyl Fentanyl Negative NEGATIVE ng/mL 01/12/2019 11:09 AM [facility] ([facility]) Acetyl Norfentanyl Negative NEGATIVE ng/mL 01/12/2019 11:09 AM [facility] ([facility]) Comment: This test was developed and its performance characteristics determined by [facility]. ??It has not been cleared or approved by the Food and Drug Administration. Urine URINE / Unknown Collection / Unknown 12/30/2018 9:39 AM WALLET ASSEMBLER 12/30/2018 11:06 AM WALLET ASSEMBLER Narrative [facility] ([facility]) - 01/12/2019 11:09 AM WALLET ASSEMBLER Performed at: ??01 - [employer] [address] [place] [address] ??[id number] Vtc Technician: Yue Hess [facility], Phone: ??[phone] Helen Zurita BALANCE WHEEL FACER-[facility] LAB - URINE CH EMISTRY ORDERABLES [facility] ([facility]) [address] [place] [address] * (ABNORMAL) URINALYSIS REFLEX TO MICROSCOPIC NO CULTURE (12/30/2018 9:24 AM WALLET ASSEMBLER) Only the most recent of2 resultswithin the time period is included. Color UA Liseth(A) Straw, Yellow 12/30/2018 10:05 AM [facility] Clarity UA Slt Cloudy(A) Clear 12/30/2018 10:05 AM [facility] Glucose UA Negative Negative 12/30/2018 10:05 AM [facility] Bilirubin UA Negative Negative 12/30/2018 10:05 AM [facility] Ketone UA Negative Negative 12/30/2018 10:05 AM [facility] Specific [place] UA 1.024 1.005 - 1.030 12/30/2018 10:05 AM [facility] Blood UA Negative Negative 12/30/2018 10:05 AM [facility] pH UA 6.0 5.0 - 8.0 pH 12/30/2018 10:05 AM [facility] Protein UA 1+(A) Negative 12/30/2018 10:05 AM [facility] Urobilinogen UA Negative Negative mg/dL 12/30/2018 10:05 AM [facility] Nitrite UA Negative Negative 12/30/2018 10:05 AM [facility] Leukocyte UA 1+(A) Negative 12/30/2018 10:05 AM [facility] Urine Microscopy Urine microscopy to follow 12/30/2018 10:05 AM [facility] Urine URINE SPECIMEN OBTAINED BY CLEAN CATCH PROCEDURE / Unknown Collection / Unknown 12/30/2018 9:24 AM WALLET ASSEMBLER 12/30/2018 9:54 AM [facility] Narrative [facility] - 12/30/2018 10:05 AM [facility] Helen Zurita BALANCE WHEEL FACER-AUCTIONEER TOBACCO LAB - URINALYS IS ORDERABLES [facility] [address] [place], [place] [phone] * (ABNORMAL) URINE MICROSCOPIC ONLY (12/30/2018 9:24 AM [facility]) Only the most recent of2 resultswithin the time period is included. RBC UA 3-5 None Seen, 0-2, 3-5 # /hpf 12/30/2018 10:26 AM [facility] WBC UA 0-5 None Seen, 0-5 # /hpf 12/30/2018 10:26 AM [facility] Hyaline Casts 0-2 None Seen, 0-2 # /lpf 12/30/2018 10:26 AM WALLET ASSEMBLER [facility] Bacteria UA Trace(A) None Seen 12/30/2018 10:26 AM [facility] Squamous Epithelial Cells 11-20(A) None Seen, 0-2, 3-5 /hpf 12/30/2018 10:26 AM [facility] Mucus UA 4+ /LPF 12/30/2018 10:26 AM [facility] Urine URINE SPECIMEN OBTAINED BY CLEAN CATCH PROCEDURE / Unknown Collection / Unknown 12/30/2018 9:24 AM WALLET ASSEMBLER 12/30/2018 9:54 AM WALLET ASSEMBLER Narrative [facility] - 12/30/2018 10:26 AM WALLET ASSEMBLER Helen Zurita [facility] LAB - URINALYS IS ORDERABLES Performing Organization Address City/[facility]/ZIP Co de Phone Number [facility] [address] [place] [address] * CHLAMYDIA + GC AMPLIFIED PROBE (11/11/2018 12:26 PM CDT) Only the most recent of2 resultswithin the time period is included. Chlamydia Amplified Probe Negative Negative 11/12/2018 8:34 AM CDT [facility] GC Amplified Probe Negative Negative 11/12/2018 8:34 AM CDT [facility] Other ENTIRE ENDOCERVIX / Unknown Collection / Unknown 11/11/2018 12:26 PM CDT 11/11/2018 12:25 PM CDT Narrative [facility] - 11/12/2018 8:34 AM CDT Results based on detection/no detection of ribosomal RNA by amplified method. Helen Zurita BALANCE WHEEL F[facility] LAB - MICROBIO LOGY ORDERABLES [facility] [address] [place] [address], [facility] [phone] * PAP LB HPV HR DNA (11/11/2018 12:09 PM CDT) Diagnosis Comment 11/15/2018 8:07 PM CDT [facility] ([facility]) Comment:NEGATIVE FOR INTRAEP ITHELIAL LESION OR MALIGNANCY. Specimen Adequacy Comment 019 8:07 PM CDT [facility] ([facility]) Comment: Satisfactory for evaluation. ??No endocervical component is identified. An endocervical component is not commonly seen in the patient. Performed by Comment 11/15/2018 8:07 PM CDT [facility] ([facility]) Comment:Bernarda Hutchins Machine Made Shoe Unit Worker (ASCP) Comment . 11/15/2018 8:07 PM CDT [facility] ([facility]) Note Comment 11/15/2018 8:07 PM CDT [facility] ([facility]) Comment: The Pap smear is a screening test designed to aid in the detection of premalignant and malignant conditions of the uterine cervix. ??It is not a diagnostic procedure and should not be used as the sole means of detecting cervical cancer. ??Both false-positive and false-negative reports do occur. Human papillomavirus High Risk Negative Negative 11/15/2018 8:07 PM CDT [facility] ([facility]) Comment: This high-risk HPV test detects thirteen high-risk types (16/18/31/33/35/39/45/51/52/56/58/59/68) without differentiation. Pathology/Cytolo gy ENTIRE ENDOCERVIX / Unknown Collection / Unknown 11/11/2018 12:09 PM CDT 11/11/2018 12:27 PM CDT [facility] ([facility]) - 11/15/2018 8:07 PM CDT Performed at: ??01 - [facility] ??[id number] Vtc Technician: Onelia Barbosa MD, Phone: ??[phone] Performed at: ??02 - [facility] [address] ??[id number] Vtc Technician: Onelia Barbosa MD, Phone: ??[phone] Specimen Comment: Source.............Endocervix Specimen Comment: LMP / Prev Treat...[place] / BX Specimen Comment: Other.............. Specimen Comment: No. of containers..01 ThinPrep Vial Helen Zurita BALANCE WHEEL FACER-[facility] LAB - PATHOLOG Y/CYTOLOGY ORDERABLES Performing Organization Address [facility] de Phone Number [facility] [address] [place] [address] * RUBELLA ANTIBODY IGG (11/11/2018 12:07 PM CDT) Rubella Antibody 4.02 Immune >0.99 index 11/12/2018 8:12 AM CDT [facility] ([facility]) Comment: ?Non-immune ? <0.90 ?Equivocal ??0.90 - 0.99 ?Immune ? >0.99 Blood BLOOD SPECIMEN / Unknown Venipuncture / Unknown 11/11/2018 12:07 PM CDT 11/11/2018 12:56 PM CDT Narrative [facility] ([facility]) - 11/12/2018 8:12 AM CDT Performed at: ??01 - [facility] ??[id number] Vtc Technician: Neil Aviles PhD, Phone: ??[phone] Helen Zurita APRN-AUCTIONEER [facility]BACCO LAB - SEROLOGY ORDERABLES Performing Organization Address [facility] Co de Phone Number [facility] ([facility]) [address] [place] [address] * HEMOGLOBIN ELECTROPHORESIS (11/11/2018 12:07 PM CDT) Hemoglobin A1 97.3 97.1 - 99.1 % 11/17/2018 12:40 PM CDT [facility] Hemoglobin F 0.0 0.0 - 2.0 % 11/17/2018 12:40 PM CDT [facility] Hemoglobin S 0.0 <=0.0 % 11/17/2018 12:40 PM CDT [facility] Hemoglobin C 0.0 <=0.0 % 11/17/2018 12:40 PM CDT [facility] Hemoglobin A2 2.7 0.9 - 2.9 % 11/17/2018 12:40 PM CDT [facility] Hemoglobin E 0.0 % 11/17/2018 12:40 PM CDT [facility] Interpretation Normal Interpretation 11/17/2018 12:40 PM CDT [facility] Blood BLOOD SPECIMEN / Unknown Venipuncture / Unknown 11/11/2018 12:07 PM CDT 11/11/2018 12:57 PM CDT Helen Zurita [facility] - CHEMISTR Y ORDERABLES Performing Organization Address [facility] Co de Phone Number [facility] [address] [place] [phone] * HEMOGLOBIN A1C (11/11/2018 12:07 PM CDT) [facility] Hemoglobin A1c 5.0 4.0 - 6.1 % 11/11/2018 1:26 PM CDT [facility] Estimated Average Glucose 97 mg/dL 11/11/2018 1:26 PM CDT [facility] Blood BLOOD SPECIMEN / Unknown Venipuncture / Unknown 11/11/2018 12:07 PM CDT 11/11/2018 12:56 PM CDT Helen Zurita [facility] LAB - CHEMISTR Y ORDERABLES Performing Organization Address [facility] Co de Phone Number [facility] [address] [place] [phone] * (ABNORMAL) CYSTIC FIBROSIS MUTATION PNL (11/11/2018 12:07 PM CDT) [facility] Cystic Fibrosis Screen CARRIER(A) 11/22/2018 11:08 AM CDT [facility] ([facility]) Comment: RESULTS: POSITIVE for one copy of [...] Ashkenazi ? 97% Congregation ? 90% (non-) -Burundian ?69% ?73% ? 55% This interpretation is based on the clinical and family relationship information provided and the current understanding of the molecular genetics of this condition. MUTATIONS ANALYZED: G85E ?V520F ?Y8345R ? 2183AA to G R117H ? G542X ?A8869F ? 2184delA R334W ? S549N ?394delTT ? 2789+5G to A R347H ? S549R ?621+1G to T ?3120+1G to A R347P ? G551D ?711+1G to T ?3659delC A455E ? R553X ?1078delT ? 3849+10kbC to T WubzdE543 ?? R560T ?1717-1G to A ?? 3876delA SuitpA239 ?? K0290Y ?? 1898+1G to A ?? 3905insT METHODS/LIMITATIONS: DNA is isolated from the sample and tested for the 32 CF mutations on the Stanton Array Platform (Smaato). Regions of the CFTR gene are amplified enzymatically and subjected to a solution-phase multiplex allele-specific primer extension with subsequent hybridization to a bead array and fluorescence detection. ??Polymorphisms F508C, I506V and I507V are included in this panel to rule out false positive [id number] homozygotes. ??Reflex testing of 5T is included in the panel for R117H interpretation. False positive or negative results may occur for reasons that include genetic variants, blood transfusions, bone marrow transplantation, erroneous representation of family relationships or contamination of a sample with maternal cells. REFERENCES: 1. Updates on Carrier Screening for Cystic Fibrosis. (2011) ?? Am J Ob Gynecol 117(4):9299-2931 2. Chacho et al. (2004) Estefany Med 6:387-91 3. Ahmet, et al. (2002) Estefany Med 4:379-391 4. Preconception and carrier screening for cystic ?? fibrosis: (2001)ACOG.ACMG publication Results Released By: Srinath Perrin, Ph.D., Education Coordinator Released By: Yolanda Rich MS, [facility], Genetic Counselor Comment Comment 11/22/2018 11:08 AM CDT [facility] ([facility]) Comment: The assay provides information intended to [...] CDT 11/11/2018 12:56 PM CDT Narrative [facility] ([facility]) - 11/22/2018 11:08 AM CDT Performed at: ??01 - [facility] [address] [place], [place] ??[id number] Vtc Technician: Oscar Angelo MD, Phone: ??[phone] Helen Zurita BALANCE WHEEL FACER-AUCTIONEER TOBACCO LAB - HEMATOLO GY ORDERABLES [facility] ([facility]) [address] [place] [address] * HEPATITIS B SURFACE ANTIGEN W RFLX CONFIRMATION (11/11/2018 12:07 PM CDT) Pathologist [facility] HBsAg Non Reactive Non Reactive 11/11/2018 1:55 PM CDT [facility] Blood BLOOD SPECIMEN / Unknown Venipuncture / Unknown 11/11/2018 12:07 PM CDT 11/11/2018 12:57 PM CDT Helen Zurita APRN-AUCTIONEER TOBACCO LAB - CHEMISTR Y ORDERABLES Performing Organization Address City/[facility]/ZIP Co de Phone Number [facility] [address] [place] [address] * HEPATITIS C ANTIBODY (11/11/2018 12:07 PM CDT) Only the most recent of2 resultswithin the time period is included. Pathologist [facility] HCV Antibody Screen Non Reactive Non Reactive 11/11/2018 1:55 PM CDT [facility] HCV S/C Ratio 0.19 0.00 - 0.79 11/11/2018 1:55 PM CDT [facility] Comment: Idgfrf-wx-bfzduc ratio (S/CO) <0.80:?? Non Reactive Blood BLOOD SPECIMEN / Unknown Venipuncture / Unknown 11/11/2018 12:07 PM CDT 11/11/2018 12:56 PM CDT Narrative [facility] - 11/11/2018 1:55 PM CDT Non Reactive - Antibodies to Hepatitis C virus (HCV) were not detected, result does not exclude early acute HCV infection. Helen Zurita BALANCE WHEEL FACER-AUCTIONEER TOBACCO LAB - CHEMISTR Y ORDERABLES [facility] [address] [place] [address] * PANORAMA TEST (11/11/2018) Pathologist [facility] Comment Genetics Low risk-Femal e Blood BLOOD SPECIMEN / Unknown Historical Provider LAB - CHEMISTRY O RDERABLES * APHERESIS/TRANSFUSION ORDER (09/06/2015 10:33 AM CDT) Narrative 09/06/2015 10:33 AM CDT Ordered by an unspecified provider. Scanned Document NURSING - VITAL SIGN S AND ASSESSMENT * (ABNORMAL) DIFFERENTIAL MANUAL (09/01/2015 7:00 AM CDT) Only the most recent of2 resultswithin the time period is included. Pathologist [facility] WBC Auto 18.3 x10E9/L 09/01/2015 8:51 AM CDT [facility] WBC Corrected 4.4 - 10.7 x10E9/L 09/01/2015 8:51 AM CDT [facility] nRBC /100 WBC 09/01/2015 8:51 AM CDT [facility] Neutrophil % Manual 76(H) 44 - 73 % 09/01/2015 8:51 AM CDT [facility] Lymphocytes % Manual 5(L) 20 - 43 % 09/01/2015 8:51 AM CDT [facility] Monocytes % Manual 3(L) 5 - 13 % 09/01/2015 8:51 AM CDT [facility] Band % Manual 16(H) 0 - 11 % 09/01/2015 8:51 AM CDT [facility] Cells Counted 100 # cells 09/01/2015 8:51 AM CDT [facility] RBC Morphology Normal 09/01/2015 8:51 AM CDT [facility] WBC Morph Normal 09/01/2015 8:51 AM CDT [facility] Platelet Estimation Normal 09/01/2015 8:51 AM CDT [facility] Blood BLOOD SPECIMEN / Unknown Venipuncture / Unknown 09/01/2015 7:00 AM CDT 09/01/2015 7:45 AM CDT Daylin Macisa MD LAB - HEMATOLOGY ORDERABLES Performing Organization Address City/[facility]/ZIP Co de Phone Number [facility] [address] [place] [address] * TRANSFUSE RED BLOOD CELL UNIT(S) (09/01/2015 1:54 AM CDT) Braxton Arias MD NURSING - BLOOD PROD TRANSFUSION * PREPARE FFP UNIT(S) (08/31/2015 10:44 PM CDT) Only the most recent of2 resultswithin the time period is included. [facility] Unit Donor # [id number] 09/01/2015 8:20 AM CDT [facility] Product Code E2701 09/01/2015 8:20 AM CDT [facility] Unit Description E2701 Plasma, CPD,Thawed 09/01/2015 8:20 AM CDT [facility] Unit Status Transfused Unit 09/01/2015 8:20 AM CDT [facility] ABO Donor Type AB 09/01/2015 8:20 AM CDT [facility] Rh Type Unit POS 09/01/2015 8:20 AM CDT [facility] Miscellaneous samples (specimen) BLOOD SPECIMEN / Unknown Venipuncture / Unknown 08/31/2015 10:44 PM CDT 08/31/2015 10:46 PM CDT Braxton Arias MD LAB - BLOOD BANK ORDERABLES Performing Organization Address City/[facility]/ZIP Co de Phone Number [facility] [address] * HIV-1 HIV-2 ANTIBODY + HIV P24 AG RAPID PNL (08/31/2015 10:30 PM CDT) Only the most recent of2 resultswithin the time period is included. [facility] HIV1/2 Ab + P24 Ag Rapid Non Reactive Non Reactive 08/31/2015 11:14 PM CDT [facility] Blood BLOOD SPECIMEN / Unknown Venipuncture / Unknown 08/31/2015 10:30 PM CDT 08/31/2015 10:42 PM CDT Narrative [facility] - 08/31/2015 11:14 PM CDT No Laboratory evidence of HIV infection. Braxton Arias MD LAB - SEROLOGY O RDERABLES Performing Organization Address [facility]/ZIP Co de Phone Number [facility] [address] [place] [phone] * RPR (08/31/2015 10:30 PM CDT) RPR Non Reactive Non Reactive 09/01/2015 9:29 AM CDT [facility] Blood BLOOD SPECIMEN / Unknown Venipuncture / Unknown 08/31/2015 10:30 PM CDT 08/31/2015 10:42 PM CDT Braxton Arais MD LAB - CHEMISTRY ORDERABLES Performing Organization Address [facility] de Phone Number [facility] [address] [place] [phone] * (ABNORMAL) COAGULATION PANEL W D-DIMER (08/31/2015 10:30 PM CDT) PT 9.6 9.5 - 11.6 sec 08/31/2015 11:56 PM CDT [facility] INR 0.9 0.9 - 1.1 08/31/2015 11:56 PM CDT [facility] PTT 23.7 21.0 - 32.0 sec 08/31/2015 11:56 PM CDT [facility] Fibrinogen 366 200 - 400 mg/dL 08/31/2015 11:56 PM CDT [facility] D-Dimer 1.84(H) 0.17 - 0.5 mg/L FEU 08/31/2015 11:56 PM CDT [facility] Platelet Count 288 153 - 416 x10E9/L 08/31/2015 11:56 PM CDT [facility] Blood BLOOD SPECIMEN / Unknown Venipuncture / Unknown 08/31/2015 10:30 PM CDT 08/31/2015 10:[address] [facility] - 08/31/2015 11:56 PM CDT Conventional [...] LAB - COAGULATION ORDERABLES Performing Organization Address City/State/[facility] Co de Phone Number [facility] [address] [place] [address] * HEPATITIS SCREEN ACUTE (08/31/2015 10:30 PM CDT) Only the most recent of2 resultswithin the time period is included. Pathologist [facility] HAV Antibody IgM Non Reactive Non Reactive 09/01/2015 1:23 AM CDT [facility] HBsAg Non Reactive Non Reactive 09/01/2015 1:23 AM CDT [facility] HBc Antibody IgM Non Reactive Non Reactive 09/01/2015 1:23 AM CDT [facility] HCV Antibody Screen Non Reactive Non Reactive 09/01/2015 1:23 AM CDT [facility] HCV S/C Ratio <0.02 0.00 - 0.79 09/01/2015 1:23 AM CDT [facility] Comment: Ymzxxf-df-zquums ratio (S/CO) <0.80:?? Non Reactive Blood BLOOD SPECIMEN / Unknown Venipuncture / Unknown 08/31/2015 10:30 PM CDT 08/31/2015 10:[address] [facility] - 09/01/2015 1:23 AM CDT Non Reactive - Antibodies to Hepatitis C virus (HCV) were not detected, result does not exclude early acute HCV infection. Non Reactive - Antibodies to Hepatitis C virus (HCV) were not detected, result does not exclude early acute HCV infection. Braxton Arias MD LAB - CHEMISTRY ORDERABLES [facility] [address] [place] [address] * (ABNORMAL) BLOOD GASES CORD GENIA (ISTAT) (08/31/2015 10:15 PM CDT) Only the most recent of2 resultswithin the time period is included. pH Cord Venous POCT 7.28 7.28 - 7.40 pH 09/01/2015 2:12 AM [facility] pCO2 Cord Venous POCT 51(H) 35 - 45 mmHg 09/01/2015 2:12 AM [facility] pO2 Cord Venous POCT 18(L) 22 - 33 mmHg 09/01/2015 2:12 AM [facility] HCO3 Cord Arterial POCT 24 22 - 24 mmol/L 09/01/2015 2:12 AM [facility] BE Cord Venous POCT Calc -4 -6 - 2 mmol/L 09/01/2015 2:12 AM [facility] TCO2 Cord Venous POCT 25 22 - 30 mmol/L 09/01/2015 2:12 AM [facility] O2 Saturation % Cord Venous Calc POCT 21 % 09/01/2015 2:12 AM [facility] Site CORD GENIA 09/01/2015 2:12 AM [facility] Sample iSTAT CORD V 09/01/2015 2:12 AM [facility] Blood CORD BLOOD SPECIMEN / Unknown 08/31/2015 10:15 PM CDT 09/01/2015 2:12 AM CDT Bakari Lomeli MD LAB - POINT OF CARE ORDERABLES Performing Organization Address City/[facility]/ZIP Co de Phone Number [facility] [address] [place] [address] * (ABNORMAL) BLOOD GASES CORD ART (ISTAT) (08/31/2015 10:10 PM CDT) Only the most recent of2 resultswithin the time period is included. pH Cord Arterial POCT 7.22 7.20 - 7.34 pH 09/01/2015 2:12 AM CDT [facility] pCO2 Cord Arterial POCT 63.1(H) 45 - 55 mmHg 09/01/2015 2:12 AM CDT [facility] pO2 Cord Arterial POCT 10(L) 12 - 25 mmHg 09/01/2015 2:12 AM CDT [facility] HCO3 Cord Arterial POCT 26.0 15 - 29 mmol/L 09/01/2015 2:12 AM CDT [facility] BE Cord Arterial POCT -3(L) -2.9 - 8.3 mmol/L 09/01/2015 2:12 AM CDT [facility] TCO2 Cord Arterial POCT 28 mmol/L 09/01/2015 2:12 AM CDT [facility] O2 Saturation Cord Art % Calc POCT 7 % 09/01/2015 2:12 AM CDT [facility] Site CORD ART 09/01/2015 2:12 AM CDT [facility] Sample iSTAT CORD A 09/01/2015 2:12 AM CDT [facility] Blood CORD BLOOD SPECIMEN / Unknown 08/31/2015 10:10 PM CDT 09/01/2015 2:12 AM CDT Bakari Lomeli MD LAB - POINT OF CARE ORDERABLES [facility] [address] [place] [address] * NEURAXIAL BLOCK (08/31/2015 8:39 PM CDT) Narrative Mercy Dean APRN-PERSONNEL COORDINATOR - 08/31/2015 8:39 PM CDT Mercy Dean APRN-PERSONNEL COORDINATOR ? 08/31/2015 ??8:39 PM NEURAXIAL BLOCK Patient [...] 8:26 PM Block Performed by: ??cassandra Dean PERSONNEL COORDINATOR Notes: ??Called to patients room. Epidural placed without complications. Negative heme, Neg, CSF + ADELAIDA x 1 attempt. ??Pt getting comfortable Bakari Lomeli MD GENERAL ANESTHESIA O RDERABLES * CROSSMATCH RBC (08/31/2015 8:18 PM CDT) Only the most recent of4 resultswithin the time period is included. Unit Donor # [id number] -E 09/01/2015 8:21 AM CDT [facility] Product Code E0336 09/01/2015 8:21 AM CDT [facility] Unit Description E0336 RBC, LR, CPD>AS1 09/01/2015 8:21 AM CDT [facility] ABO Donor Type A 09/01/2015 8:21 AM CDT [facility] Rh Type Unit POS 09/01/2015 8:21 AM CDT [facility] Crossmatch Interpretation Compatible 09/01/2015 8:21 AM CDT [facility] Unit Status Transfused Unit 09/01/2015 8:21 AM CDT [facility] Miscellaneous samples (specimen) BLOOD SPECIMEN / Unknown 08/31/2015 8:18 PM CDT 08/31/2015 8:36 PM CDT Daylin Macias MD LAB - BLOOD BANK ORDERABLES Performing Organization Address [facility] Co de Phone Number [facility] [address] [place] [address] * (ABNORMAL) FIBRINOGEN ACTIVITY (08/31/2015 6:25 PM CDT) Fibrinogen 471(H) 200 - 400 mg/dL 08/31/2015 7:09 PM CDT [facility] Blood BLOOD SPECIMEN / Unknown Venipuncture / Unknown 08/31/2015 6:25 PM CDT 08/31/2015 6:36 PM CDT Gabrielle Plata MD LAB - COAGULATION OR DERABLES [facility] [address] [place] [address] * PTT (08/31/2015 6:25 PM CDT) PTT 23.0 21.0 - 32.0 sec 08/31/2015 7:09 PM CDT [facility] Blood BLOOD SPECIMEN / Unknown Venipuncture / Unknown 08/31/2015 6:25 PM CDT 08/31/2015 6:36 PM CDT Narrative [facility] - 08/31/2015 7:09 PM CDT Heparin Therapeutic Range for PTT: 47.7 - 68.6 seconds. Gabrielle Plata MD LAB - COAGULATION OR DERABLES Performing Organization Address [facility] Co de Phone Number [facility] [address] [place], [place] [phone] * (ABNORMAL) PT-INR (08/31/2015 6:25 PM CDT) PT <9.5(L) 9.5 - 11.6 sec 08/31/2015 7:10 PM CDT [facility] INR 0.9 0.9 - 1.1 08/31/2015 7:10 PM CDT [facility] Blood BLOOD SPECIMEN / Unknown Venipuncture / Unknown 08/31/2015 6:25 PM CDT 08/31/2015 6:36 PM CDT Narrative [facility] - 08/31/2015 7:10 PM CDT Conventional Warfarin Anticoagulant Therapy: INR Reference Range: ??2.0-3.0 Intensive Warfarin Anticoagulant Therapy: INR Reference Range: ? 2.5-3.5 Gabrielle Plata MD LAB - COAGULATION OR DERABLES Performing Organization Address [facility] de Phone Number [facility] [address] [place] [address] * PATHOLOGY/GENETICS HISTORICAL-ONBASE (08/31/2015) 08/31/2015 Historical Provider LAB - CHEMISTRY O RDERABLES Performing Organization Address City/[facility] Co de Phone Number [address] * LAB RESULTS ORDER (08/05/2015 1:49 AM CDT) Only the most recent of2 resultswithin the time period is included. Narrative 08/05/2015 1:49 AM CDT Ordered by an unspecified provider. Scanned Document LAB - THERAPEUTIC DR UG MONITORING ORDERABLES * (ABNORMAL) HEPATIC FUNCTION PANEL (07/18/2015 2:24 PM CDT) Alkaline Phosphatase 135(H) 38 - 126 U/L 07/18/2015 3:15 PM CDT [facility] ALT 16 12 - 78 U/L 07/18/2015 3:15 PM CDT [facility] AST 12 5 - 40 U/L 07/18/2015 3:15 PM CDT [facility] Protein Total 6.9 6.4 - 8.2 gm/dL 07/18/2015 3:15 PM CDT [facility] Albumin 2.6(L) 3.4 - 5.0 gm/dL 07/18/2015 3:15 PM CDT [facility] Bilirubin Total 0.2 0.2 - 1.0 mg/dL 07/18/2015 3:15 PM CDT [facility] Bilirubin Direct <0.1 0 - 0.3 mg/dL 07/18/2015 3:15 PM CDT [facility] Blood BLOOD SPECIMEN / Unknown Venipuncture / Unknown 07/18/2015 2:24 PM CDT 07/18/2015 2:35 PM CDT Loy Grider MD LAB - CHEMISTRY RM [facility] Organization Address City/State/[facility] Co de Phone Number [facility] [address] [place] [phone] * NEURAXIAL BLOCK (04/03/2014 10:41 AM WALLET ASSEMBLER) Narrative Yolanda Dean APRN-CRNA - 04/03/2014 10:41 AM WALLET ASSEMBLER CHRISTI Kat ? 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
--- OUTSIDE RECORDS SUMMARY | 2024-03-29 18:48 | XMS_ITS | Referral Summary ---
Author Organization [facility] Address [address] [place] [address] Care Team Providers Care Automotive Brake Technician Name Role Phone Christofer Stewart MD Primary [...] 1.7 cm about 1.5 years ago in 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
--- OUTSIDE RECORDS SUMMARY | 2024-03-29 18:48 | XMS_ITS | Clinical Summary ---
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
[2024-03-29 18:56] VITALS: BP 157/88; PULSE 101; RESP 20; TEMP 36.6; O2SAT 100
--- NOTE | 2024-03-29 18:59 | ED.GENADULT ---
HPI - General Adult General Chief complaint: Unspecified Stated complaint: rectal pain Time Seen by Provider: 03/29/24 18:58 History of Present Illness HPI narrative: error Related Data Home Medications ?Medication ?Instructions ?Recorded ?Confirmed ?Last Taken ?Type No Home Medications 12/26/23 03/23/24 Unknown History Allergies Allergy/AdvReac Type Severity Reaction Status Date / Time Penicillins Allergy Severe Difficulty Verified 03/29/24 18:48 Swallowing codeine AdvReac Swelling Verified 03/29/24 18:48 NSAIDS (Non-Steroidal AdvReac Swelling Verified 03/29/24 18:48 Anti-Inflamma of Lip/Tongue/Throat PMFSH Past Medical History Medical History Drug abuse Tooth decay Surgical History Surgical History No significant past surgical history Family History Family History Father No problems noted. Father Lung cancer Mother Heart disease Social History Social History Years smoked: 20 Smoking status: Current every day smoker Tobacco type: cigarettes Second hand tobacco smoke exposure: Yes Alcohol intake: former Substance use: former Substance use type: marijuana and methamphetamine Gender identity (if verbalized by the patient): Female Spiritual care concerns: No Course Vital Signs Vital signs: Vital Signs Temperature 36.6 C 03/29/24 18:56 Pulse Rate 101 H 03/29/24 18:56 Respiratory Rate 20 03/29/24 18:56 Blood Pressure 157/88 H 03/29/24 18:56 Pulse Oximetry 100 03/29/24 18:56 Oxygen Delivery Room Air 03/29/24 18:56 Temperature 36.6 C 03/29/24 18:56 Pulse Rate 101 H 03/29/24 18:56 Respiratory Rate 20 03/29/24 18:56 Blood Pressure 157/88 H 03/29/24 18:56 Pulse Oximetry 100 03/29/24 18:56 Oxygen Delivery Room Air 03/29/24 18:56 Medical Decision Making Vital Signs Vital Signs: Vital Signs Temperature 36.6 C 03/29/24 18:56 Pulse Rate 101 H 03/29/24 18:56 Respiratory Rate 20 03/29/24 18:56 Blood Pressure 157/88 H 03/29/24 18:56 Pulse Oximetry 100 03/29/24 18:56 Oxygen Delivery Room Air 03/29/24 18:56 Temperature 36.6 C 03/29/24 18:56 Pulse Rate 101 H 03/29/24 18:56 Respiratory Rate 20 03/29/24 18:56 Blood Pressure 157/88 H 03/29/24 18:56 Pulse Oximetry 100 03/29/24 18:56 Oxygen Delivery Room Air 03/29/24 18:56 Discharge Plan Discharge Clinical Impression: Tooth decay Patient Disposition: Home, Self-Care Condition: Stable Instructions: Antibiotic Form Patient Language: Namibian Prescriptions: No Action No Home Medications azithromycin 500 mg tablet 500 mg PO DAILY 3 Days Qty: 3 0RF prednisone 20 mg tablet 40 mg PO DAILY 2 Days Qty: 4 0RF Follow-up/Referrals: UNKNOWN,DOCTOR [Primary Care Provider] -
--- NOTE | 2024-03-29 19:00 | PC.NURSE ---
ASSUMED CARE. REPORT RECEIVED FROM GENARO GRADY
--- NOTE | 2024-03-29 19:00 | ED.FEMALEGU ---
HPI - Female Genitourinary General Chief complaint: Unspecified Stated complaint: rectal pain Time Seen by Provider: 03/29/24 18:58 Source: patient and family Mode of arrival: ambulatory Limitations: no limitations History of Present Illness HPI Narrative: patient is a 44-year-old female with multiple complaints for evaluation this evening. Specifically she has a rectal discomfort and tissue feeling at the rectum. She also has abdominal discomfort and constipation. Also she has a who has been having intermarital intercourse with other women and she has a vaginal discharge with green color. MD elicited complaint: vaginal discharge, possible STD, prolapse ( Patient was concern for a rectal prolapse) and other ( abdominal pain) Pertinent past history: other ( negative) Onset (ago): day(s) (5) Location of symptoms: external genitalia ( rectum) and vaginal Severity: moderate Female Urogenital Radiation: Non-Radiating Severity scale (1-10): 3 Quality of pain: cramping Consistency: intermittent Vaginal discharge: purulent ( green) Vaginal bleeding: none Urinary symptoms: Frequency Exacerbating factors: none Relieving factors: none Associated symptoms: abdominal pain Treatment prior to arrival: none Sexual activity: Yes Possible : unsure if Related Data Home Medications ?Medication ?Instructions ?Recorded ?Confirmed ?Last Taken ?Type No Home Medications 12/26/23 03/23/24 Unknown History Allergies Allergy/AdvReac Type Severity Reaction Status Date / Time Penicillins Allergy Severe Difficulty Verified 03/29/24 18:48 Swallowing codeine AdvReac Swelling Verified 03/29/24 18:48 NSAIDS (Non-Steroidal AdvReac Swelling Verified 03/29/24 18:48 Anti-Inflamma of Lip/Tongue/Throat Review of Systems Review of Systems: All systems reviewed & are unremarkable except as noted in HPI and below Constitutional: Constitutional: Reports no additional constitutional complaints Eyes: Eyes: Reports no additional eye complaints ENT: Reports system reviewed and no additional complaints, except as documented Cardiovascular: Cardiovascular: Reports no additional cardiovascular complaints Respiratory: Respiratory: Reports no additional respiratory complaints Gastrointestinal: Gastrointestinal: Reports no additional gastrointestinal complaints Genitourinary: Genitourinary: Reports no additional female genitourinary complaints Musculoskeletal: Musculoskeletal: Reports no additional musculoskeletal complaints Integumentary/Breasts: Skin/Breast: Reports system reviewed and no additional complaints, except as docu Neurologic: Reports system reviewed and no additional complaints, except as documented Psychiatric: Psychiatric: Reports no additional psychiatric complaints Endocrine: Endocrine: Reports no additional endocrine complaints Hematologic/Lymphatic: Hematologic/Lymphatic: Reports no additional hematologic/lymphatic complaints Allergic/Immunologic: Allergic/Immunologic: Reports no additional allergic/immunologic complaints [facility] Past Medical History Medical History Drug abuse Tooth decay Surgical History Surgical History No significant past surgical history Family History Family History Father No problems noted. Father Lung cancer Mother Heart disease Social History Social History Years smoked: 20 Smoking status: Current every day smoker Tobacco type: cigarettes Second hand tobacco smoke exposure: Yes Alcohol intake: former Substance use: former Substance use type: marijuana and methamphetamine Gender identity (if verbalized by the patient): Female Spiritual care concerns: No Exam Const: General: healthy appearing Nutritional Appearance: well nourished Orientation/consciousness: patient oriented x3 Limitations: no limitations HENMT: Head: normal to inspection Ears: external ears normal Face/Nose/Sinus: Normal external nose present Eyes: Conjunctivae: conjunctivae normal Pupils: Equal, round and reactive pupils present EOM: EOMs intact bilaterally Neck: Neck: normal visual inspection Chest: Chest palpation & inspection: normal inspection of the chest Resp: Effort & Inspection: normal respiratory effort and not labored Auscultation: clear to auscultation bilaterally and no crackles Cardio: Rate: regular rate Rhythm: regular rhythm Heart sounds: no murmurs GI: Inspection: non-distended GI Palp: Yes Soft to palpation, No Tenderness to palpation present (GI), No Guarding due to palpation present (GI), No Rigid due to palpation, No Hernia present, No Palpable mass present and No Rebound tenderness present Auscultation: normal bowel sounds : General: Yes bladder normal to palpation Other: female nurse escort and looked at the rectum with multiple external non thrombosed hemorrhoids and excess tissue seen; no prolapse of the rectum appreciated Back/Spine/Pelvis: Back: no CVA tenderness Skin: General skin exam: normal color Rashes: no rashes Wounds: no wounds Neuro: General: patient oriented x3 Cranial nerves: Yes Nystagmus not present Speech: normal speech Extrem: General: normal to inspection Psych: Appearance: grossly normal Mental Status: mental status grossly normal Affect: normal affect Attitude: cooperative Course Vital Signs Vital signs: Vital Signs Temperature 36.6 C 03/29/24 18:56 Pulse Rate 101 H 03/29/24 18:56 Respiratory Rate 20 03/29/24 18:56 Blood Pressure 157/88 H 03/29/24 18:56 Pulse Oximetry 100 03/29/24 18:56 Oxygen Delivery Room Air 03/29/24 18:56 Temperature 36.6 C 03/29/24 18:56 Pulse Rate 87 03/29/24 22:11 Respiratory Rate 18 03/29/24 22:11 Blood Pressure 142/80 H 03/29/24 22:11 Pulse Oximetry 96 03/29/24 22:11 Oxygen Delivery Room Air 03/29/24 22:11 MDM - Female Genitourinary MDM Narrative Medical decision making narrative: patient is a 44-year-old female with abdominal pain, rectal discomfort and excess tissue and a vaginal discharge. We will do a workup at this time for each of these complaints. Will treat the vaginal discharge. Lab Data Attestation: I reviewed the patient's lab results. 03/29/24 19:59 03/29/24 19:59 Labs: Lab Results 03/29/24 03/29/24 Range/Units 19:00 19:59 WBC 10.6 (4.8-10.8) K/mm3 RBC 4.31 (4.20-5.40) M/mm3 Hgb 12.8 (12.0-15.0) g/dL Hct 39.7 (35.0-49.0) % MCV 92.1 (78.0-102.0) fL MCH 29.7 (27.0-31.0) pg MCHC 32.2 (32-36) g/dL RDW 12.4 (11.6-14.4) % Plt Count 360 (150-420) K/mm3 MPV 8.8 L (9.2-11.8) fl Immature Gran % (Auto) 0.4 H (0.0-0.0) % Neut % (Auto) 69.4 (50.0-70.0) % Lymph % (Auto) 22.2 (18.0-42.0) % Motley % (Auto) 6.6 (2.0-11.0) % Eos % (Auto) 0.9 L (1.0-6.0) % Baso % (Auto) 0.5 (0.0-1.0) % Lymph # (Auto) 2.34 (1.10-4.50) K/mm3 Motley # (Auto) 0.70 (0.10-0.90) K/mm3 Eos # (Auto) 0.09 (0.02-0.50) K/mm3 Baso # (Auto) 0.05 (0.00-0.10) K/mm3 Abs Immat Gran (auto) 0.04 H (0.00-0.00) K/mm3 Absolute Neuts (auto) 7.34 H (1.70-7.20) K/mm3 Absolute Nucleated RBC 0.00 (0.00-0.00) K/mm3 Nucleated RBC % 0.0 (0-0.0) % Sodium 140 (136-145) mmol/L Potassium 4.2 (3.5-5.1) mmol/L Chloride 105 (98-108) mmol/L Carbon Dioxide 28 (21-32) mmol/L Anion Gap 7 (4-12) mmol/L BUN 18 (7-18) mg/dL Creatinine 0.92 (0.55-1.02) mg/dL Estim Creat Clear Calc 49 ml/min Estimated GFR > 60 (59 - ) Glucose 98 (70-99) mg/dL Calculated Osmolality 291 (285-295) mOsm/kg Calcium 8.9 (8.5-10.1) mg/dL Total Bilirubin 0.2 (0.00-1.00) mg/dL AST 18 (15-37) U/L ALT 28 (14-59) U/L Alkaline Phosphatase 80 (46-116) U/L Total Protein 6.8 (6.4-8.2) g/dL Albumin 3.6 (3.4-5.0) g/dL Lipase 88 H (16-77) U/L Urine Color Light yellow (Yellow) Urine Appearance Clear (Clear) Urine pH 6.0 (5.0-8.0) Ur Specific [place] >= 1.030 H (1.010-1.020) Urine Protein Negative (Negative) Urine Glucose (UA) Negative (Negative) Urine Ketones Negative (Negative) Ur Blood (Man) Trace-intact H (Negative) Urine Nitrate Negative (Negative) Urine Bilirubin Negative (Negative) Urine Urobilinogen 0.2 (0.2-1.0) mg/dL Leukocyte Esterase Rfl Negative (Negative) YANET/UL Urine Test Negative C. trachomatis (PCR) Pending N. gonorrhoeae (PCR) Pending Imaging Data Attestation: I personally reviewed and interpreted this imaging study as follows: Radiologist's impression: CT scan of the abdomen and pelvis without contrast was negative for acute process Discharge Plan Discharge Clinical Impression: External hemorrhoids, Vaginal discharge Constipation Qualifiers: Constipation type: unspecified constipation type Qualified Code(s): K59.00 - Constipation, unspecified Patient Disposition: Home, Self-Care Condition: Stable Instructions: Antibiotic Form, Hemorrhoids (DC), Sexually Transmitted Diseases (ED) Additional Instructions: Please follow-up with primary doctor in the next week. I suggest further STD testing with your primary doctor. Use MiraLax daily. Use a stool softener such as Colace daily. Do not sit on the toilet for long periods of time and decreased straining. You may use preparation H. Patient Language: Setswana Prescriptions: No Action No Home Medications azithromycin 500 mg tablet 500 mg PO DAILY 3 Days Qty: 3 0RF prednisone 20 mg tablet 40 mg PO DAILY 2 Days Qty: 4 0RF Follow-up/Referrals: UNKNOWN,DOCTOR [Non-Staff] - Time of Disposition: 22:04
[2024-03-29 19:06] LABS: Add Urine Microscopic? NO; Appearance Urine Clear (Clear); Bilirubin Urine Negative (Negative); Blood Urine Trace-intact (Negative); Color Urine Light Yellow (Yellow); Glucose Urine UA Negative (Negative); Ketones Urine Negative (Negative); Leukocyte Esterase Ur Negative LEU/UL (Negative); Nitrate Urine Negative (Negative); Protein Urine Negative (Negative); Specific Grav Ur >= 1.030 (1.010-1.020); Urobilinogen Urine 0.2 mg/dL (0.2-1.0)
--- OUTSIDE RECORDS SUMMARY | 2024-03-29 19:20 | XMS_ITS | Patient Health Summary ---
Author Organization [facility] Address [address] [place] [address] Care Team Providers Care Gis Scientist Name Role Phone Mario Logan MD Primary Care Provider Note from [facility],non-owned Affiliates and Associated Physician Practices is amultiple site organization consisting of ambulatory clinics and hospital sitesin [place], [place], [place] and [place]. This disclosure is being madepursuant to the Care Everywhere program and may not contain all information available regarding this patient. Last updated 17.[facility] Allergies * Codeine(Anaphylaxis) -High Criticality * Naproxen(GI Discomfort) * Penicillins(Urticaria,Swelling) -High Criticality * Ketorolac(Other) Medications * Be aware that medications may not be up to date on this document. Alwaysverify current medications with the patient. * methadone (DOLOPHINE) 10 MG tablet Take 270 mg by mouth once daily * naloxone HCl (NARCAN) 4 MG/0.1ML nasal spray(Started 11/11/2018) [place] 1 spray into the nose as needed [...] for Methadone maintenance treatment complicating , antepartum ([facility]), Supervisionof high risk , antepartum ([facility]) * CBC W AUTO DIFFERENTIAL(Performed 05/13/2019) * BLOOD GASES CORD GENIA(Performed 05/12/2019) * PATHOLOGY TISSUE EXAM (STL)(Performed 05/12/2019) Performed for delivery delivered ([facility]) * NEURAXIAL BLOCK(Performed 05/12/2019) * SECTION (EMERGENCY)(Performed 05/12/2019) * URINE DRUG SCREEN IMMUNOASSAY(Performed 05/12/2019) Performed for Methadone maintenance treatment complicating , antepartum ([facility]) * PREPARE RBC LEUKOREDUCED UNIT(Performed 05/12/2019) * TYPE + SCREEN PANEL(Performed 05/12/2019) Performed for Non-reactive NST (non-stress test) * CBC W AUTO DIFFERENTIAL(Performed 05/12/2019) Performed for Non-reactive NST (non-stress test) * GLUCOSE PROTEIN KETONE URINE - POINT OF CAR(Performed 05/12/2019) Performed for Supervision of high risk in second trimester ([facility]), Methadone maintenance treatment complicating , antepartum ([facility]) * URINE DRUG SCREEN IMMUNOASSAY(Performed 05/12/2019) Performed for Evaluate anatomy not seen on prior sonogram, Antepartum multigravida of advanced maternal age ([facility]) * GLUCOSE PROTEIN KETONE URINE - POINT OF CAR(Performed 05/11/2019) Performed for Supervision of high risk in second trimester ([facility]) * SONOGRAM - COMPLETE(Performed 05/11/2019) * URINE DRUG SCREEN IMMUNOASSAY(Performed 05/11/2019) Performed for Supervision of high risk in second trimester ([facility]) * COMPREHENSIVE METABOLIC PANEL(Performed 05/05/2019) Performed for RUQ pain * CBC W AUTO DIFFERENTIAL(Performed 05/05/2019) Performed for Anemia during ([facility]) * CULTURE STREP B(Performed 05/05/2019) Performed for Supervision of high risk in third trimester ([facility]) * URINE DRUG SCREEN IMMUNOASSAY(Performed 05/05/2019) Performed for Methadone maintenance treatment complicating , antepartum ([facility]) * GLUCOSE PROTEIN KETONE URINE - POINT OF CAR(Performed 05/05/2019) Performed for Supervision of high risk in third trimester ([facility]) * SONOGRAM - COMPLETE(Performed 04/21/2019) * GLUCOSE PROTEIN KETONE URINE - POINT OF CAR(Performed 04/21/2019) Performed for Supervision of high risk in third trimester ([facility]), Methadone maintenance treatment complicating , antepartum ([facility]) * URINE DRUG SCREEN IMMUNOASSAY(Performed 04/21/2019) Performed for Evaluate anatomy not seen on prior sonogram, Antepartum multigravida of advanced maternal age ([facility]) * URINE MICROSCOPIC ONLY REFLEX TO CULTURE(Performed 04/17/2019) Performed for Methadone maintenance treatment complicating , antepartum ([facility]) * URINALYSIS REFLEX MICROSCOPIC REFLEX CULTURE(Performed 04/17/2019) Performed for Methadone maintenance treatment complicating , antepartum ([facility]) * CULTURE URINE(Performed 04/17/2019) Performed for Methadone maintenance treatment complicating , antepartum ([facility]) * IMAGING/RADIOLOGY/XRAY RESULTS ORDER(Performed 04/07/2019) * GLUCOSE PROTEIN KETONE URINE - POINT OF CAR(Performed 04/07/2019) Performed for Supervision of high risk in third trimester ([facility]), Methadone maintenance treatment complicating , antepartum ([facility]) * URINE DRUG SCREEN IMMUNOASSAY(Performed 04/07/2019) Performed for Evaluate anatomy not seen on prior sonogram, Multigravida of advanced maternal age infirst trimester ([facility]) * IMAGING/RADIOLOGY/XRAY RESULTS ORDER(Performed 04/07/2019) * AMB CONSULT TO CARDIOLOGY(Performed 04/01/2019) Performed for Abnormal EKG, Dizziness * NONSTRESS TEST(Performed 03/29/2019) Performed for Nausea and vomiting during ([facility]) * URINE DRUG SCREEN IMMUNOASSAY(Performed 03/29/2019) Performed for Nausea and vomiting during ([facility]), Supervision of high risk in third trimester ([facility]), Methadone maintenance treatment complicating , antepartum ([facility]) * SONOGRAM - COMPLETE(Performed 03/24/2019) * GLUCOSE PROTEIN KETONE URINE - POINT OF CAR(Performed 03/24/2019) Performed for Methadone maintenance treatment complicating , antepartum ([facility]) * URINE DRUG SCREEN IMMUNOASSAY(Performed 03/24/2019) Performed for Evaluate anatomy not seen on prior sonogram, Antepartum multigravida of advanced maternal age ([facility]) * NONSTRESS TEST(Performed 03/17/2019) Performed for Uterine contractions during ([facility]) * RESPIRATORY PATHOGEN PANEL BY PCR(Performed 03/17/2019) Performed for Nausea and vomiting during ([facility]), Shortness of breath * CT ANGIO CHEST PULM EMBOLISM(Performed 03/17/2019) Performed for Shortness of breath * EKG 12-LEAD(Performed 03/17/2019) Performed for Nausea and vomiting during ([facility]) * ECHOCARDIOGRAM 2D WITH DOPPLER(Performed 03/17/2019) Performed for Shortness of breath * XR CHEST 1VW PORTABLE(Performed 03/17/2019) Performed for Nausea and vomiting during ([facility]) * T4 FREE(Performed 03/17/2019) Performed for Nausea and vomiting during ([facility]) * B-TYPE NATRIURETIC PEPTIDE(Performed 03/17/2019) Performed for Nausea and vomiting during ([facility]) * URINE MICROSCOPIC ONLY REFLEX TO CULTURE(Performed 03/17/2019) Performed for Nausea and vomiting during ([facility]) * URINALYSIS REFLEX MICROSCOPIC REFLEX CULTURE(Performed 03/17/2019) Performed for Nausea and vomiting during ([facility]) * CK BLOOD(Performed 03/17/2019) Performed for Nausea and vomiting during ([facility]) * TROPONIN I(Performed 03/17/2019) Performed for Nausea and vomiting during ([facility]) * PHOSPHORUS BLOOD(Performed 03/17/2019) Performed for Nausea and vomiting during ([facility]) * MAGNESIUM BLOOD(Performed 03/17/2019) Performed for Nausea and vomiting during ([facility]) * TSH(Performed 03/17/2019) Performed for Nausea and vomiting during ([facility]) * COMPREHENSIVE METABOLIC PANEL(Performed 03/17/2019) Performed for Nausea and vomiting during ([facility]) * CBC W AUTO DIFFERENTIAL(Performed 03/17/2019) Performed for Nausea and vomiting during ([facility]) * CULTURE URINE(Performed 03/17/2019) Performed for Nausea and vomiting during ([facility]) * GLUCOSE PROTEIN KETONE URINE - POINT OF CAR(Performed 03/17/2019) Performed for Supervision of high risk in third trimester ([facility]), Methadone maintenance treatment complicating , antepartum ([facility]) * URINE DRUG SCREEN IMMUNOASSAY(Performed 03/17/2019) Performed for Evaluate anatomy not seen on prior sonogram, Antepartum multigravida of advanced maternal age ([facility]) * NONSTRESS TEST(Performed 03/10/2019) Performed for Dizziness, Nausea and vomiting during ([facility]), Supervision of high risk in second trimester ([facility]) * IRON + TRANSFERRIN PANEL(Performed 03/10/2019) Performed for Anemia during in third trimester ([facility]) * FERRITIN(Performed 03/10/2019) Performed for Anemia during in third trimester ([facility]) * COMPREHENSIVE METABOLIC PANEL(Performed 03/10/2019) Performed for Supervision of high risk in second trimester ([facility]) * GLUCOSE CHALLENGE(Performed 03/10/2019) Performed for Supervision of high risk in second trimester ([facility]) * HIV-1 HIV-2 ANTIBODY + HIV P24 AG PANEL(Performed 03/10/2019) Performed for Supervision of high risk in second trimester ([facility]) * SYPHILIS ANTIBODY CASCADING REFLEX(Performed 03/10/2019) Performed for Supervision of high risk in second trimester ([facility]) * CBC W AUTO DIFFERENTIAL(Performed 03/10/2019) Performed for Supervision of high risk in second trimester ([facility]) * URINE MICROSCOPIC ONLY REFLEX TO CULTURE(Performed 03/10/2019) Performed for Flank pain * URINALYSIS REFLEX MICROSCOPIC REFLEX CULTURE(Performed 03/10/2019) Performed for Flank pain * CULTURE STREP GROUP A(Performed 03/10/2019) Performed for Supervision of high risk in second trimester ([facility]), Sore throat * CULTURE URINE(Performed 03/10/2019) Performed for Flank pain * STREP A SCREEN DIRECT W RFLX STREP A CULTURE(Performed 03/10/2019) Performed for Supervision of high risk in second trimester ([facility]), Sore throat * SONOGRAM - TRANSVAGINAL(Performed 03/10/2019) * GLUCOSE PROTEIN KETONE URINE - POINT OF CAR(Performed 03/10/2019) Performed for Supervision of high risk in second trimester ([facility]) * URINE DRUG SCREEN IMMUNOASSAY(Performed 03/10/2019) Performed for Evaluate anatomy not seen on prior sonogram, Antepartum multigravida of advanced maternal age ([facility]) * EKG 12-LEAD(Performed 03/10/2019) Performed for Supervision of high risk , antepartum ([facility]), Methadone maintenance treatmentcomplicating , antepartum ([facility]) * URINE MICROSCOPIC ONLY REFLEX TO CULTURE(Performed 03/06/2019) Performed for Vaginal discharge during , antepartum ([facility]) * URINALYSIS REFLEX MICROSCOPIC REFLEX CULTURE(Performed 03/06/2019) Performed for Vaginal discharge during , antepartum ([facility]) * URINE DRUG SCREEN IMMUNOASSAY(Performed 03/06/2019) Performed for Methadone maintenance treatment complicating , antepartum ([facility]), Supervisionof high risk in second trimester ([facility]) * CULTURE URINE(Performed 03/06/2019) Performed for Vaginal discharge during , antepartum ([facility]) * KETONES URINE - POINT OF CARE(Performed 03/06/2019) * URINE MICROSCOPIC ONLY REFLEX TO CULTURE(Performed 02/26/2019) Performed for Uterine contractions during ([facility]) * URINALYSIS REFLEX MICROSCOPIC REFLEX CULTURE(Performed 02/26/2019) Performed for Uterine contractions during ([facility]) * CULTURE URINE(Performed 02/26/2019) Performed for Uterine contractions during ([facility]) * CHLAMYDIA + GC AMPLIFIED PROBE(Performed 02/26/2019) Performed for Uterine contractions during ([facility]) * TRICHOMONAS RAPID TEST(Performed 02/26/2019) Performed for Uterine contractions during ([facility]) * SONOGRAM - COMPLETE(Performed 02/24/2019) * GLUCOSE PROTEIN KETONE URINE - POINT OF CAR(Performed 02/24/2019) Performed for Supervision of high risk in second trimester ([facility]) * URINE DRUG SCREEN IMMUNOASSAY(Performed 02/24/2019) Performed for Supervision of high risk in second trimester ([facility]) * SONOGRAM - TRANSVAGINAL(Performed 01/27/2019) * GLUCOSE PROTEIN KETONE URINE - POINT OF CAR(Performed 01/27/2019) Performed for Supervision of high risk in second trimester ([facility]), Methadone maintenance treatment complicating , antepartum ([facility]) * URINE DRUG SCREEN IMMUNOASSAY(Performed 01/27/2019) Performed for Supervision of high risk in second trimester ([facility]), Methadone maintenance treatment complicating , antepartum ([facility]) * SONOGRAM - COMPLETE(Performed 01/06/2019) * GLUCOSE PROTEIN KETONE URINE - POINT OF CAR(Performed 01/06/2019) Performed for Supervision of high risk in second trimester ([facility]), Methadone maintenance treatment complicating , antepartum ([facility]) * URINE DRUG SCREEN IMMUNOASSAY(Performed 01/06/2019) Performed for Supervision of high risk in second trimester ([facility]), Methadone maintenance treatment complicating , antepartum ([facility]) * TRICHOMONAS VAGINALIS AMPLIFIED PROBE(Performed 12/30/2018) Performed for Supervision of high risk in second trimester ([facility]), Abdominal cramping affecting ([facility]) * CHLAMYDIA + GC AMPLIFIED PROBE(Performed 12/30/2018) Performed for Abdominal cramping affecting ([facility]), Supervision of high risk in second trimester ([facility]) * BACTERIAL VAGINOSIS + YEAST SMEAR(Performed 12/30/2018) Performed for Abdominal cramping affecting ([facility]), Supervision of high risk in second trimester ([facility]) * FENTANYL URINE(Performed 12/30/2018) Performed for Supervision of high risk in second trimester ([facility]), Methadone maintenance treatment complicating , antepartum ([facility]), Obesity affecting in second trimester ([facility]) * URINE MICROSCOPIC ONLY(Performed 12/30/2018) Performed for Supervision of high risk in second trimester ([facility]), Abdominal cramping affecting ([facility]) * URINALYSIS REFLEX TO MICROSCOPIC NO CULTURE(Performed 12/30/2018) Performed for Supervision of high risk in second trimester ([facility]), Abdominal cramping affecting ([facility]) * CULTURE URINE(Performed 12/30/2018) Performed for Supervision of high risk in second trimester ([facility]), Abdominal cramping affecting ([facility]) * SONOGRAM - TRANSVAGINAL(Performed 12/30/2018) * GLUCOSE PROTEIN KETONE URINE - POINT OF CAR(Performed 12/30/2018) Performed for Supervision of high risk in second trimester ([facility]) * URINE DRUG SCREEN IMMUNOASSAY(Performed 12/30/2018) Performed for Antepartum multigravida of advanced maternal age ([facility]) * URINE MICROSCOPIC ONLY REFLEX TO CULTURE(Performed 12/09/2018) Performed for Cramping affecting , antepartum ([facility]) * FENTANYL URINE(Performed 12/09/2018) Performed for Methadone maintenance treatment complicating , antepartum ([facility]) * URINALYSIS REFLEX MICROSCOPIC REFLEX CULTURE(Performed 12/09/2018) Performed for Cramping affecting , antepartum ([facility]) * CULTURE URINE(Performed 12/09/2018) Performed for Cramping affecting , antepartum ([facility]) * SONOGRAM - COMPLETE(Performed 12/09/2018) * GLUCOSE PROTEIN KETONE URINE - POINT OF CAR(Performed 12/09/2018) Performed for Supervision of high risk in second trimester ([facility]) * URINE DRUG SCREEN IMMUNOASSAY(Performed 12/09/2018) Performed for Antepartum multigravida of advanced maternal age ([facility]) * CHLAMYDIA + GC AMPLIFIED PROBE(Performed 11/11/2018) Performed for Supervision of high risk , antepartum ([facility]) * PAP LB HPV HR DNA(Performed 11/11/2018) Performed for Cervical cancer screening * TRICHOMONAS RAPID TEST(Performed 11/11/2018) Performed for Supervision of high risk , antepartum ([facility]) * TYPE + SCREEN PANEL(Performed 11/11/2018) Performed for Supervision of high risk , antepartum ([facility]) * HEMOGLOBIN A1C(Performed 11/11/2018) Performed for Supervision of high-risk of elderly multigravida ([facility]), History of diet controlled gestational diabetes mellitus (GDM), Obesity (BMI 30-39.9) * RUBELLA ANTIBODY IGG(Performed 11/11/2018) Performed for Supervision of high risk , antepartum ([facility]) * SYPHILIS ANTIBODY CASCADING REFLEX(Performed 11/11/2018) Performed for Supervision of high risk , antepartum ([facility]) * HEPATITIS B SURFACE ANTIGEN W RFLX CONFIRMATION(Performed 11/11/2018) Performed for Supervision of high risk , antepartum ([facility]) * CBC W AUTO DIFFERENTIAL(Performed 11/11/2018) Performed for Supervision of high risk , antepartum ([facility]) * FERRITIN(Performed 11/11/2018) Performed for Supervision of high risk , antepartum ([facility]) * HEPATITIS C ANTIBODY(Performed 11/11/2018) Performed for Supervision of high risk , antepartum ([facility]) * HEPATITIS B SURFACE ANTIGEN W RFLX CONFIRMATION(Performed 11/11/2018) Performed for Supervision of high risk , antepartum ([facility]) * CYSTIC FIBROSIS MUTATION PANEL(Performed 11/11/2018) Performed for Supervision of high risk , antepartum ([facility]) * COMPREHENSIVE METABOLIC PANEL(Performed 11/11/2018) Performed for Supervision of high risk , antepartum ([facility]) * HEMOGLOBIN ELECTROPHORESIS(Performed 11/11/2018) Performed for Supervision of high risk , antepartum ([facility]) * HIV-1 HIV-2 ANTIBODY + HIV P24 AG PANEL(Performed 11/11/2018) Performed for Supervision of high risk , antepartum ([facility]) * GLUCOSE CHALLENGE(Performed 11/11/2018) Performed for Supervision of high-risk of elderly multigravida ([facility]), History of diet controlled gestational diabetes mellitus (GDM) * URINE MICROSCOPIC ONLY(Performed 11/11/2018) Performed for Supervision of high risk , antepartum ([facility]) * URINALYSIS REFLEX TO MICROSCOPIC NO CULTURE(Performed 11/11/2018) Performed for Supervision of high risk , antepartum ([facility]) * SONOGRAM - COMPLETE(Performed 11/11/2018) [...] - 10.7 x10E9/L 05/25/2019 4:05 PM CDT [facility] WBC Corrected 05/25/2019 4:05 PM CDT [facility] RBC 3.44(L) 3.80 - 5.20 x10E12/L 05/25/2019 4:05 PM CDT [facility] Hemoglobin 9.4(L) 12.0 - 15.6 gm/dL 05/25/2019 4:05 PM CDT [facility] Hematocrit 30.8(L) 35.9 - 45.5 % 05/25/2019 4:05 PM CDT [facility] MCV 89.5 80.7 - 98.3 fl 05/25/2019 4:05 PM CDT [facility] MCH 27.3 26.7 - 34.0 pg 05/25/2019 4:05 PM CDT [facility] MCHC 30.5(L) 30.8 - 35.9 gm/dL 05/25/2019 4:05 PM CDT [facility] Platelet Count 508(H) 153 - 416 x10E9/L 05/25/2019 4:05 PM CDT [facility] RDW-CV 14.6 12.1 - 14.9 % 05/25/2019 4:05 PM CDT [facility] MPV 9.5 9.4 - 12.9 fl 05/25/2019 4:05 PM CDT [facility] Neutrophils % 62.6 44.0 - 73.0 % 05/25/2019 4:05 PM CDT [facility] Lymphocytes % 26.2 20.0 - 43.0 % 05/25/2019 4:05 PM CDT [facility] Monocytes % 9.0 5.0 - 13.0 % 05/25/2019 4:05 PM CDT [facility] Eosinophils % 1.2 0.0 - 6.0 % 05/25/2019 4:05 PM CDT [facility] Basophils % 0.6 0.0 - 2.0 % 05/25/2019 4:05 PM CDT [facility] Immature Granulocytes 0.4 0 - 1 % 05/25/2019 4:05 PM CDT [facility] Neutrophil Absolute 5.22 2.01 - 7.14 x10E9/L 05/25/2019 4:05 PM CDT [facility] Lymphocytes Absolute 2.18 1.07 - 3.94 x10E9/L 05/25/2019 4:05 PM CDT [facility] Monocytes Absolute 0.75 0.26 - 1.07 x10E9/L 05/25/2019 4:05 PM CDT [facility] Eosinophils Absolute 0.10 0 - 0.47 x10E9/L 05/25/2019 4:05 PM CDT [facility] Basophils Absolute 0.05 0 - 0.08 x10E9/L 05/25/2019 4:05 PM CDT [facility] Immature Granulocytes Absolute 0.03 0.00 - 0.06 x10E9/L 05/25/2019 4:05 PM CDT [facility] nRBC Auto 0 /100 WBC 05/25/2019 4:05 PM CDT [facility] Blood BLOOD SPECIMEN / Unknown Venipuncture / Unknown 05/25/2019 3:47 PM CDT 05/25/2019 4:00 PM CDT Becky Saab MD LAB - HEMATOLOGY ORD ERABLES [facility] [address] [place] [address] * (ABNORMAL) COMPREHENSIVE METABOLIC PANEL (05/25/2019 3:47 PM CDT) Only the most recent of5 resultswithin the time period is included. [facility] Signature Glucose 80 70 - 105 mg/dL 05/25/2019 4:[address] [facility] Sodium 139 136 - 145 mmol/L 05/25/2019 4:[address] [facility] Potassium 4.4 3.5 - 5.1 mmol/L 05/25/2019 4:[address] [facility] Chloride 103 98 - 107 mmol/L 05/25/2019 4:[address] [facility] CO2 30 23 - 31 mmol/L 05/25/2019 4:[address] [facility] Calcium 8.9 8.4 - 10.4 mg/dL 05/25/2019 4:[address] [facility] Anion Gap 6(L) 8 - 16 mmol/L 05/25/2019 4:[address] [facility] BUN 17 7 - 18.7 mg/dL 05/25/2019 4:[address] [facility] Creatinine 0.89 0.57 - 1.11 mg/dL 05/25/2019 4:[address] [facility] Alkaline Phosphatase 295(H) 40 - 150 U/L 05/25/2019 4:[address] [facility] ALT 62(H) 0 - 61 U/L 05/25/2019 4:[address] [facility] AST 27 5 - 34 U/L 05/25/2019 4:[address] [facility] Protein Total 7.0 6.4 - 8.3 gm/dL 05/25/2019 4:[address] [facility] Albumin 3.4(L) 3.5 - 5.2 gm/dL 05/25/2019 4:[address] [facility] Bilirubin Total 0.2 0.2 - 1.0 mg/dL 05/25/2019 4:[address] [facility] eGFR by MDRD >60 >60 mL/min/1.7 3m2 05/25/2019 4:[address] [facility] eGFR by MDRD >60 >60 mL/min/1.7 3m2 05/25/2019 4:[address] [facility] Blood BLOOD SPECIMEN / Unknown Venipuncture / Unknown 05/25/2019 3:47 PM CDT 05/25/2019 4:00 PM CDT Becky Saab MD LAB - CHEMISTRY RM MOSS Performing Organization Address City/[facility]/ZIP Co de Phone Number [facility] [address] [place] [address] * IMAGING RADIOLOGY XRAY RESULTS ORDER (05/17/2019 [...] (Bezet) 416 ms [facility] MUSE Calculated P [place] 35 degrees [facility] MUSE Calculated R [place] 37 degrees [facility] MUSE Calculated T [place] 35 degrees [facility] M[facility] Interpretation EKG NORMAL SINUS RHYTHM POSSIBLE LEFT ATRIAL ENLARGEMENT BORDERLINE ECG WHEN COMPARED WITH ECG OF 17-MAR-2019 13:33, NO SIGNIFICANT CHANGE WAS FOUND Confirmed by Tanvir Loya ([id number]) on 05/13/2019 11:09:05 PM [facility] MUSE 05/13/2019 10:2 7 AM CDT 05/13/2019 11:09 PM CDT Daylin Toor MD ECG ORDERABLES [facility] * (ABNORMAL) BLOOD GASES CORD GENIA [...] 05/12/2019 4:05 PM CDT [facility] RESP THERAPY [employer] ID [id number] 05/12/2019 4:05 PM CDT [facility] RESP THERAPY Blood CORD BLOOD SPECIMEN / Unknown 05/12/2019 3:55 PM CDT 05/12/2019 3:55 PM CDT Vinod Dent MD LAB - BLOOD GASES OR DERABLES [facility] [address] [phone] * GROSS + MICRO EXAM (STL) (05/12/2019 3:53 PM CDT) Only the most recent of3 resultswithin the time period is included. Case Report Surgical Pathology Report ? Case: [id number] ? Authorizing Provider: ??Celestine Álvarez MD ? Collected: ? 05/12/2019 03:53 PM ? Ordering Location: ? [facility] LDR ? Received: ?05/13/2019 06:00 AM ? Pathologist: ? Brandin Chase MD ? Specimens: ?? A) - Fallopian Tube ? B) - Fallopian Tube ? 05/16/2019 11:[address] [facility] Final Diagnosis Fallopian tube, right, tubal ligation: --Negative for significant histopathologic abnormalities Fallopian tube, left, tubal ligation: --Negative for significant histopathologic abnormalities 05/16/2019 11:[address] [facility] Clinical History The patient is a 39-year-old woman who underwent tubal ligation. 05/16/2019 11:[address] [facility] Gross Description The requisition and specimen labels are identified with the patient's name, Jaycee Slater. Received in formalin specimen A, right fallopian tube , is a 1.8 cm in length x 0.8 cm in diameter segment of fallopian tube. The serosa is cowan-brown and smooth. The specimen is serially sectioned to show an unremarkable pinpoint lumen. Mill Hand sections are submitted in cassette A1. Received in formalin specimen B, left fallopian tube , is a 1.5 cm in length x 0.6 cm in diameter segment of fallopian tube. The serosa is cowan-brown and smooth. The specimen is serially sectioned to show an unremarkable pinpoint lumen. The specimen is entirely submitted in cassette B1. MIKKI/pasha 05/16/2019 11:27 AM T [facility] Microscopic Description Complete cross sections of both fallopian tubes are identified. 05/16/2019 11:27 AM T [facility] Disclaimer All histochemical and/or immunohistochemical results are interpreted with controls that demonstrate appropriate staining reactions before reporting results. Note on use of immunocytochemistry reagents: This test was developed and its performance characteristic determined by [facility], Department of Laboratory Medicine. It has [...] interpreted with caution. 05/16/2019 11:27 AM T [facility] Embedded Images 05/16/2019 11:27 AM T [facility] Pathology/Cytology FALLOPIAN TUBE PART / Unknown 05/12/2019 3:53 PM CDT 05/13/2019 6:00 AM CDT Miscellaneous samples (specimen) FALLOPIAN TUBE PART / Unknown 05/12/2019 3:59 PM CDT 05/13/2019 6:00 AM CDT Celestine Álvarez MD LAB - PATHOLOGY/CYTO LOGY ORDERABLES Performing Organization Address [facility] Co de Phone Number [facility] [address] [place] [address] * Neuraxial Block (05/12/2019 3:31 PM CDT) Narrative Ayan Reynaga APRN-STORE PRODUCT DEMONSTRATOR - 05/12/2019 3:31 PM CDT Ayan Reynaga [...] throughout. Staff: ?? Anesthesia Provider: ??Ayan Reynaga, SLIDING JOINT MAKER-STORE PRODUCT DEMONSTRATOR ?? - ?? performed the procedure Yanira Tanner MD GENERAL ANESTH ESIA ORDERABLES * (ABNORMAL) DRUG SCREEN TOX URINE PANEL (05/12/2019 2:50 PM CDT) Only the most recent of21 resultswithin the time period is included. Pathologist [facility] Amphetamines Screen Urine Not detected Not detected 05/12/2019 3:15 PM CDT [facility] Barbiturates Screen Urine Not detected Not detected 05/12/2019 3:15 PM CDT [facility] Benzodiazepines Screen Urine Not detected Not detected 05/12/2019 3:15 PM CDT [facility] Cannabinoids Screen Urine Not detected Not detected 05/12/2019 3:15 PM CDT [facility] Cocaine Screen Urine Not detected Not detected 05/12/2019 3:15 PM CDT [facility] Fentanyl Urine Not detected Not detected 05/12/2019 3:15 PM CDT [facility] Methadone Screen Urine Detected(A) Not detected 05/12/2019 3:15 PM CDT [facility] Opiate Screen Urine Not detected Not detected 05/12/2019 3:15 PM CDT [facility] Phencyclidine Screen Urine Not detected Not detected 05/12/2019 3:15 PM CDT [facility] Urine URINE / Unknown Collection / Unknown 05/12/2019 2:50 PM CDT 05/12/2019 2:52 PM CDT Narrative [facility] - 05/12/2019 3:15 PM CDT This [...] URINE CHEMISTR Y ORDERABLES Performing Organization Address [facility]/State/ZIP Co de Phone Number [facility] [address] [place] [phone] * PREPARE (CROSSMATCH) RBC UNIT(S), 2 Units (05/12/2019 2:00 PM CDT) Pathologist [facility] Product Code U0281Y39 [facility] Unit Donor # [id number] [facility] ABO Donor Type A [facility] Rh Type Unit POS [facility] Unit Status Ret'd HC BLO OD BANK LAB ABO Rh Type Unit APOS [facility] Donor Unit Expiration Date [id number] [facility] Blood Type Barcode 6200 [facility] Product Code U0709S34 [facility] Unit Donor # [id number] [facility] B[facility]OD [facility] LAB ABO Donor Type A [facility] Rh Type Unit POS [facility] BL OOD BANK LAB Unit Status Ret'd [facility] BLO OD BANK LAB ABO Rh Type Unit APOS [facility] Donor Unit Expiration Date [id number] [facility] Blood Type Barcode 6200 [facility] B[facility] Blood Bank BLOOD SPECIMEN / Unknown 05/12/2019 2:00 PM CDT Rain Loya MD LAB - BLOOD BANK ORD ERABLES Performing Organization Address City/[facility]/ZIP Co de Phone Number [facility] [address] [place] [address] * TYPE + SCREEN PANEL (05/12/2019 11:02 AM CDT) Only the most recent of5 resultswithin the time period is included. ABO A 05/12/2019 11:34 AM CDT [facility] Rh Type Positive 05/12/2019 11:34 AM CDT [facility] Comment:History checked. Antibody Screen Negative 05/12/2019 11:34 AM CDT [facility] Blood Bank BLOOD SPECIMEN / Unknown Venipuncture / Unknown 05/12/2019 11:02 AM CDT 05/12/2019 11:10 AM CDT Ellen Childs MD LAB - BLOOD BANK OR DERABLES Performing Organization Address City/[facility]/ZIP Co de Phone Number [facility] BLOOD [facility] [address] [place] [address] * GLUCOSE PROTEIN KETONE URINE - POINT [...] 05/12/2019 8 :50 AM CDT Ivana Thomas SLIDING JOINT MAKER-NUT PICKER LAB - POINT OF CARE ORDERABLES [facility] POCT TESTING [address] [place] [address], [facility] [phone] * SONOGRAM - COMPLETE (05/11/2019 8:43 AM CDT) Only the most recent of9 resultswithin the time period is included. Anatomical Region Laterality Modality Other 05/11/2019 8:43 AM CDT Narrative 05/11/2019 10:35 AM CDT ? [facility] ?[facility] ?PHONE: ??FAX: Pat. Name: ?JAYCEE SLATER Pat. No: ?[id number] Study Date: ?? 05/11/2019 ??8:43am , Age: ? 1980, 39 Height: ? 61 in Weight: ? 175 lb LMP: ?Unknown GA by Base: ?? 36w2d ?? NEGRO: 06/06/2019 GA by US: ? 35w2d ?? NEGRO: 06/13/2019 GA Selected: ??36w2d (From Baselin) NEGRO: ?06/06/2019 Referring MD: Kimberli Galloway MD Combiner Operator: ??Silvina Fair RDMS CPT4: ? 14411 BMI: ?33.06 Hist/Ind: ? AMA, low-risk NIPT ?Opioid dependence, on methadone ?History of LEEP ?G5 & G7: Late (36 week) PTD x 2 ?G5: Macrosomia ?History of GDM ?Class I obesity MEASUREMENTS & AGE ? GROWTH EVALUATION Measurement ??GA ? Range ? Srce %for GA Ratios ----- ---- ------- BPD ??8.4 cm 33w5d (39q7t-56s7g) Hadl BPD 4% FL/BPD 0.81 (0.71 - 0.87) HC ??32.6 cm 37w0d (01a0r-86f2x) Hadl HC ??35% FL/AC ??0.21 (0.20 - 0.24) AC ??32.9 cm 36w5d (18s7z-57j8e) Hadl AC ??74% HC/AC ??0.99 (0.92 - 1.11) FL ?? 6.8 cm 35w0d (28g4l-27c9w) Hadl FL ??15% CI ? 0.71 (0.70 - 0.86) HL ?? 6.3 cm 36w3d (80e9q-10a4c) Eron HL ??51% GA for sonogram 35w2d (54b0o-06c5l) ?? Weight Estimate: based on (BPD,HC,AC,FL) Hadlock [...] <Electronic Signature> ??05/11/2019 10:35am Kimberli Galloway MD [facility] ORDERABLES * CULTURE STREP B (05/05/2019 10:21 AM CDT) Only the most recent of2 resultswithin the time period is included. Culture Strep B Negative for beta-hemolytic Streptococcus Group B KENNY 05/08/2019 8:43 AM CDT [facility] Microbiology MISCELLANEOUS SAMPLES / Unknown Collection / Unknown 05/05/2019 10:21 AM CDT 05/05/2019 10:35 AM CDT Ivana Thomas APRN-NUT PICKER LAB - MICROBIOL OGY ORDERABLES Performing Organization Address City/[facility]/ZIP Co de Phone Number [facility] [address] [place] [address], [facility] [phone] * (ABNORMAL) URINE MICROSCOPIC ONLY REFLEX TO CULTURE (04/17/2019 3:16 PM REACTOR FUELING SUPERVISOR) Only the most recent of6 resultswithin the time period is included. Reflex Status Culture to follow 04/17/2019 3:57 PM REACTOR FUELING SUPERVISOR [facility] RBC UA 0-2 None Seen, 0-2, 3-5 # /hpf 04/17/2019 3:57 PM REACTOR FUELING SUPERVISOR [facility] WBC UA 0-5 None Seen, 0-5 # /hpf 04/17/2019 3:57 PM REACTOR FUELING SUPERVISOR [facility] Bacteria UA None Seen None Seen 04/17/2019 3:57 PM REACTOR FUELING SUPERVISOR [facility] Squamous Epithelial Cells 6-10(A) None Seen, 0-2, 3-5 /hpf 04/17/2019 3:57 PM REACTOR FUELING SUPERVISOR [facility] Mucus UA 4+ /LPF 04/17/2019 3:57 PM REACTOR FUELING SUPERVISOR [facility] Urine URINE SPECIMEN OBTAINED BY CLEAN CATCH PROCEDURE / Unknown Collection / Unknown 04/17/2019 3:16 PM REACTOR FUELING SUPERVISOR 04/17/2019 3:26 PM REACTOR FUELING SUPERVISOR Narrative [facility] - 04/17/2019 3:57 PM REACTOR FUELING SUPERVISOR Dory Guadarrama MD LAB - URINALYSIS ORD ERABLES Performing Organization Address City/[facility]/ZIP Co de Phone Number [facility] [address] [place] [address] * (ABNORMAL) URINALYSIS REFLEX MICROSCOPIC REFLEX CULTURE (04/17/2019 3:16 PM REACTOR FUELING SUPERVISOR) Only the most recent of6 resultswithin the time period is included. Color UA Liseth(A) Straw, Yellow 04/17/2019 3:31 PM REACTOR FUELING SUPERVISOR [facility] Clarity UA Slt Cloudy(A) Clear 04/17/2019 3:31 PM REACTOR FUELING SUPERVISOR [facility] Glucose UA Negative Negative 04/17/2019 3:31 PM REACTOR FUELING SUPERVISOR [facility] Bilirubin UA Negative Negative 04/17/2019 3:31 PM REACTOR FUELING SUPERVISOR [facility] Ketone UA Trace(A) Negative 04/17/2019 3:31 PM REACTOR FUELING SUPERVISOR [facility] Specific Leland UA 1.020 1.005 - 1.030 04/17/2019 3:31 PM REACTOR FUELING SUPERVISOR [facility] Blood UA Negative Negative 04/17/2019 3:31 PM REACTOR FUELING SUPERVISOR [facility] pH UA 7.0 5.0 - 8.0 pH 04/17/2019 3:31 PM REACTOR FUELING SUPERVISOR [facility] Protein UA 1+(A) Negative 04/17/2019 3:31 PM REACTOR FUELING SUPERVISOR [facility] Urobilinogen UA 2.0(A) Negative mg/dL 04/17/2019 3:31 PM REACTOR FUELING SUPERVISOR [facility] Nitrite UA Negative Negative 04/17/2019 3:31 PM REACTOR FUELING SUPERVISOR [facility] Leukocyte UA 1+(A) Negative 04/17/2019 3:31 PM [facility] Urine Microscopy Urine microscopy to follow 04/17/2019 3:31 PM REACTOR FUELING SUPERVISOR [facility] Reflex Status Culture to follow 04/17/2019 3:31 PM [facility] Urine URINE SPECIMEN OBTAINED BY CLEAN CATCH PROCEDURE / Unknown Collection / Unknown 04/17/2019 3:16 PM REACTOR FUELING SUPERVISOR 04/17/2019 3:26 PM REACTOR FUELING SUPERVISOR Narrative [facility] - 04/17/2019 3:31 PM REACTOR FUELING SUPERVISOR Ascorbic Acid can cause false negative urine strip tests for blood, glucose, nitrite, and bilirubin. Dory Guadarrama MD LAB - URINALYSIS ORD ERABLES Performing Organization Address [facility] Co de Phone Number [facility] [address] [place] [address] * CULTURE URINE (04/17/2019 3:16 PM REACTOR FUELING SUPERVISOR) Only the most recent of8 resultswithin the time period is included. Culture Urine 10,000-50,000 CFU/mL urogenital stefany KENNY 04/19/2019 6:52 AM REACTOR FUELING SUPERVISOR [facility] Urine URINE SPECIMEN OBTAINED BY CLEAN CATCH PROCEDURE / Unknown Collection / Unknown 04/17/2019 3:16 PM REACTOR FUELING SUPERVISOR 04/17/2019 3:26 PM REACTOR FUELING SUPERVISOR Dory Guadarrama MD LAB - MICROBIOLOGY O RDERABLES [facility] [address] [place] [address], [facility] [phone] * CARDIOLOGY CONSULT (04/01/2019 5:08 PM REACTOR FUELING SUPERVISOR) Ivana Thomas SLIDING JOINT MAKER-NUT PICKER OUTPATIENT CONS ULT * NONSTRESS TEST (03/29/2019 5:31 PM REACTOR FUELING SUPERVISOR) Narrative Mone Malave MD - 03/29/2019 5:31 PM REACTOR FUELING SUPERVISOR Radha Guadarrama MD ? 04/08/2019 10:47 PM [...] Schwab RN Non-Stress Test (NST) Jaycee Pendletonley [id number] 04/08/2019 10:46 PM Indications: nausea and vomiting [...] planned care Radha Guadarrama MD Evelyn Pontious SLIDING JOINT MAKER-CNM OB GYNE ORDERABLE S * NONSTRESS TEST (03/17/2019 6:22 PM REACTOR FUELING SUPERVISOR) Narrative Kimberli Galloway MD - 03/17/2019 6:22 PM REACTOR FUELING SUPERVISOR Michelle Mcdaniel MD ? 03/21/2019 ??8:08 AM Name: ??Jaycee Slater Date of : ??1980 Today's Date: ??03/17/2019 ?NST RESULTS (GHOSH) OBJECTIVE FINDINGS , ??, ??, BP: 114/58 NST Indication(s): Other (Comment)(SOB) Uterine Irritability: No Contractions: Not present OBJECTIVE FINDINGS Movement: Present Monitoring Mode: External Baseline: 135 BPM Variability: Moderate Decelerations: None Accelerations: Yes OTHER INFORMATION 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 RN PGY1 JACQUARD LOOM HEDDLES TIER Progress Note Indications: SOB Assessment/ Non-Stress Test ?Baseline: ??125 beats/minute mod variability ?Reactive ?Contractions: ??none ?Decelerations: ??none Michelle Mcdaniel MD 03/21/2019 8:08 AM Dory Guadarrama MD OB GYNE ORDERABLES * RESPIRATORY PATHOGEN PANEL BY PCR (03/17/2019 5:07 PM REACTOR FUELING SUPERVISOR) Adenovirus PCR Not detected Not detected, Invalid, Indeterminate 03/17/2019 9:47 PM REACTOR FUELING SUPERVISOR [facility] Coronavirus PCR Not detected Not detected, Invalid, Indeterminate 03/17/2019 9:47 PM REACTOR FUELING SUPERVISOR [facility] Human Metapneumovirus PCR Not detected Not detected, Invalid, Indeterminate 03/17/2019 9:47 PM REACTOR FUELING SUPERVISOR [facility] Human Rhinovirus/Entero virus PCR Not detected Not detected, Invalid, Indeterminate 03/17/2019 9:47 PM REACTOR FUELING SUPERVISOR [facility] Influenza A PCR Not detected Not detected, Equivocal, Invalid, Indeterminate 03/17/2019 9:47 PM REACTOR FUELING SUPERVISOR [facility] Influenza B PCR Not detected Not detected, Invalid, Indeterminate 03/17/2019 9:47 PM REACTOR FUELING SUPERVISOR [facility] Parainfluenza Virus 1 PCR Not detected Not detected, Invalid, Indeterminate 03/17/2019 9:47 PM [facility] Parainfluenza Virus 2 PCR Not detected Not detected, Invalid, Indeterminate 03/17/2019 9:47 PM [facility] Parainfluenza Virus 3 PCR Not detected Not detected, Invalid, Indeterminate 03/17/2019 9:47 PM REACTOR FUELING SUPERVISOR [facility] Parainfluenza Virus 4 PCR Not detected Not detected, Invalid, Indeterminate 03/17/2019 9:47 PM REACTOR FUELING SUPERVISOR [facility] Respiratory Syncytial Virus PCR Not detected Not detected, Invalid, Indeterminate 03/17/2019 9:47 PM [facility] Bordetella pertussis PCR Not detected Not detected, Invalid 03/17/2019 9:47 PM [facility] Chlamydia pneumoniae PCR Not detected Not detected, Invalid, Indeterminate 03/17/2019 9:47 PM [facility] Mycoplasma pneumoniae PCR Not detected Not detected, Invalid, Indeterminate 03/17/2019 9:47 PM [facility] Microbiology SPECIMEN FROM NASOPHARYNGEAL STRUCTURE / Unknown Collection / Unknown 03/17/2019 5:07 PM REACTOR FUELING SUPERVISOR 03/17/2019 5:15 PM REACTOR FUELING SUPERVISOR Michelle Mcdaniel MD LAB - MICROBIOLOGY O RDERABLES [facility] [address] [place] [address], [facility] [phone] * CT ANGIO CHEST PULM EMBOLISM (03/17/2019 4:10 PM REACTOR FUELING SUPERVISOR) Anatomical Region Laterality Modality Chest Computed Tomogra phy 03/17/2019 4:12 PM REACTOR FUELING SUPERVISOR Impressions 03/17/2019 4:14 PM REACTOR FUELING SUPERVISOR No evidence for pulmonary embolism. Dependent atelectasis. No focal infiltrates. Reading Radiologist: Pascual Chacon MD on 03/17/2019 at 4:14 PM Narrative 03/17/2019 4:14 PM REACTOR FUELING SUPERVISOR CT Chest Angiography with IV contrast INDICATION: [...] ECHOCARDIOGRAM 2D WITH DOPPLER (03/17/2019 12:36 PM REACTOR FUELING SUPERVISOR) 03/17/2019 12:3 6 PM REACTOR FUELING SUPERVISOR [facility] CARDIOLOGY - 03/17/2019 2:38 PM REACTOR FUELING SUPERVISOR [address] [address] Transthoracic Echocardiogram 2D, M-mode, Doppler, and Color Doppler Patient: JAYCEE SLATER MR number: [id number] Height: 61 in Weight: 201.5 lb BSA: 1.9 m?? Study date: 17-Mar-2019 : 1980 Age: 39 years Gender: Female Race: Allergies: CODEINE, PENICILLINS, NAPROXEN, KETOROLAC Combiner Operator: ??Justine Holder RDCS Referring Physician: ??Kinga Ngo [...] Thibodeaux DO Signed 17-Mar-2019 14:37:48 Procedure Note Deobrah Thibodeaux DO - 03/17/[address] [place] [address] Transthoracic Echocardiogram 2D, M-mode, Doppler, and Color Doppler Patient: JAYCEE SLATER MR number: [id number] Height: 61 in Weight: 201.5 lb BSA: 1.9 m?? Study date: 17-Mar-2019 : 1980 Age: 39 years Gender: Female Race: Allergies: CODEINE, PENICILLINS, NAPROXEN, KETOROLAC Combiner Operator: Justine Holder RDCS Referring Physician: Kinga Ngo [...] 17-Mar-2019 14:37:48 Kinga Ngo MD ECHO ORDERABLES [facility] [address] [place] [address] * XR CHEST 1VW PORTABLE (03/17/2019 12:25 PM REACTOR FUELING SUPERVISOR) Anatomical Region Laterality Modality Chest Radiographic Daniella ging 03/17/2019 1:23 PM REACTOR FUELING SUPERVISOR Impressions 03/17/2019 1:23 PM REACTOR FUELING SUPERVISOR Clear lungs. Reading Radiologist: Ted Schulte MD on 03/17/2019 at 1:23 PM Narrative 03/17/2019 1:23 PM REACTOR FUELING SUPERVISOR Chest x-ray single view. HISTORY: Vomiting. Single [...] RDERABLES * TROPONIN I (03/17/2019 11:42 AM REACTOR FUELING SUPERVISOR) Troponin I <0.010 <0.038 ng/mL 03/17/2019 12:26 PM REACTOR FUELING SUPERVISOR [facility] Blood BLOOD SPECIMEN / Unknown Venipuncture / Unknown 03/17/2019 11:42 AM REACTOR FUELING SUPERVISOR 03/17/2019 11:52 AM REACTOR FUELING SUPERVISOR Michelle Mcdaniel MD LAB - CHEMISTRY RM MOSS [facility] Organization Address City/State/[facility] Co de Phone Number [facility] [address] [place] [address] * B-TYPE NATRIURETIC PEPTIDE (03/17/2019 11:42 AM REACTOR FUELING SUPERVISOR) BNP 22 <=100 pg/mL 03/17/2019 2:38 PM REACTOR FUELING SUPERVISOR [facility] Blood BLOOD SPECIMEN / Unknown Venipuncture / Unknown 03/17/2019 11:42 AM REACTOR FUELING SUPERVISOR 03/17/2019 11:52 AM REACTOR FUELING SUPERVISOR Narrative [facility] - 03/17/2019 2:38 PM REACTOR FUELING SUPERVISOR A cutoff of 100 pg/mL has been [...] - CHEMISTRY OR DERABLES Performing Organization Address [facility] Co de Phone Number [facility] [address] [place] [phone] * PHOSPHORUS BLOOD (03/17/2019 11:42 AM REACTOR FUELING SUPERVISOR) Phosphorus 3.9 2.3 - 4.7 mg/dL 03/17/2019 12:21 PM REACTOR FUELING SUPERVISOR [facility] Blood BLOOD SPECIMEN / Unknown Venipuncture / Unknown 03/17/2019 11:42 AM REACTOR FUELING SUPERVISOR 03/17/2019 11:52 AM REACTOR FUELING SUPERVISOR Michelle Mcdaniel MD LAB - CHEMISTRY RM MOSS Performing Organization Address [facility] de Phone Number [facility] [address] [place] [phone] * MAGNESIUM BLOOD (03/17/2019 11:42 AM REACTOR FUELING SUPERVISOR) Magnesium 1.9 1.6 - 2.6 mg/dL 03/17/2019 12:21 PM REACTOR FUELING SUPERVISOR [facility] Blood BLOOD SPECIMEN / Unknown Venipuncture / Unknown 03/17/2019 11:42 AM REACTOR FUELING SUPERVISOR 03/17/2019 11:52 AM REACTOR FUELING SUPERVISOR Michelle Mcdaniel MD LAB - CHEMISTRY RM MOSS Performing Organization Address [facility] de Phone Number [facility] [address] [place] [phone] * CK BLOOD (03/17/2019 11:42 AM REACTOR FUELING SUPERVISOR) CK 30 29 - 168 U/L 03/17/2019 12:21 PM REACTOR FUELING SUPERVISOR [facility] Blood BLOOD SPECIMEN / Unknown Venipuncture / Unknown 03/17/2019 11:42 AM REACTOR FUELING SUPERVISOR 03/17/2019 11:52 AM REACTOR FUELING SUPERVISOR Michelle Mcdaniel MD LAB - CHEMISTRY RM MOSS Performing Organization Address [facility] Co de Phone Number [facility] [address] [place] [address] * (ABNORMAL) TSH (03/17/2019 11:42 AM REACTOR FUELING SUPERVISOR) TSH 5.2847(H) 0.35 - 4.94 uIU/mL 03/17/2019 1:11 PM REACTOR FUELING SUPERVISOR [facility] Blood BLOOD SPECIMEN / Unknown Venipuncture / Unknown 03/17/2019 11:42 AM REACTOR FUELING SUPERVISOR 03/17/2019 11:52 AM REACTOR FUELING SUPERVISOR Michelle Mcdaniel MD LAB - CHEMISTRY RM MOSS Performing Organization Address [facility] Co de Phone Number [facility] [address] [place] [address] * T4 FREE (03/17/2019 11:42 AM REACTOR FUELING SUPERVISOR) Pathologist [facility] T4 Free 0.71 0.70 - 1.48 ng/dL 03/17/2019 2:52 PM REACTOR FUELING SUPERVISOR [facility] Blood BLOOD SPECIMEN / Unknown Venipuncture / Unknown 03/17/2019 11:42 AM REACTOR FUELING SUPERVISOR 03/17/2019 11:52 AM REACTOR FUELING SUPERVISOR Daylin Cardona MD LAB - CHEMISTRY OR DERABLES Performing Organization Address [facility] Co de Phone Number [facility] [address] [place] [address] * NONSTRESS TEST (03/10/2019 5:10 PM REACTOR FUELING SUPERVISOR) Narrative Ponleslye, Evelyn, SLIDING JOINT MAKER-CNM - 03/10/2019 5:10 PM REACTOR FUELING SUPERVISOR Dipika Perez RN ? 03/10/2019 ??5:11 PM [...] OTHER INFORMATION Dipika Perez, RN Evelyn Altman SLIDING JOINT MAKER-CNM OB GYNE ORDERABLE S * SYPHILIS ANTIBODY CASCADING REFLEX (03/10/2019 1:24 PM REACTOR FUELING SUPERVISOR) Only the most recent of2 resultswithin the time period is included. Treponema pallidum Antibody Non Reactive Non Reactive 03/10/2019 3:02 PM REACTOR FUELING SUPERVISOR [facility] Comment: No Laboratory evidence of syphilis infection. ?? Note: ??Circulating antibodies may be low or undetectable in early infection. ??If recent exposure is suspected, re-draw sample in 2-4 weeks and repeat testing. Blood BLOOD SPECIMEN / Unknown Venipuncture / Unknown 03/10/2019 1:24 PM REACTOR FUELING SUPERVISOR 03/10/2019 1:50 PM REACTOR FUELING SUPERVISOR Ivana Thomas SLIDING JOINT MAKER-[facility] LAB - SEROLOGY ORDERABLES Performing Organization Address [facility] de Phone Number [facility] [address] [place], [place] [phone] * HIV-1 HIV-2 ANTIBODY + HIV P24 AG PANEL (03/10/2019 1:24 PM REACTOR FUELING SUPERVISOR) Only the most recent of3 resultswithin the time period is included. HIV1/2 Ab + P24 Ag Non Reactive Non Reactive 03/10/2019 2:57 PM REACTOR FUELING SUPERVISOR [facility] Blood BLOOD SPECIMEN / Unknown Venipuncture / Unknown 03/10/2019 1:24 PM REACTOR FUELING SUPERVISOR 03/10/2019 1:49 PM REACTOR FUELING SUPERVISOR Narrative [facility] - 03/10/2019 2:57 PM REACTOR FUELING SUPERVISOR No Laboratory evidence of HIV infection. Ivana Thomas SLIDING JOINT MAKER-[facility] LAB - CHEMISTRY ORDERABLES Performing Organization Address [facility] Co de Phone Number [facility] [address] [place] [address] * GLUCOSE CHALLENGE (03/10/2019 1:24 PM REACTOR FUELING SUPERVISOR) Only the most recent of2 resultswithin the time period is included. Glucose Challenge 104 64 - 140 mg/dL 03/10/2019 4:13 PM REACTOR FUELING SUPERVISOR [facility] Glucose Challenge Time 1324 03/10/2019 4:13 PM [facility] Blood BLOOD SPECIMEN / Unknown Venipuncture / Unknown 03/10/2019 1:24 PM REACTOR FUELING SUPERVISOR 03/10/2019 1:49 PM REACTOR FUELING SUPERVISOR Ivana Thomas SLIDING JOINT MAKER-[facility] LAB - CHEMISTRY ORDERABLES Performing Organization Address [facility] de Phone Number [facility] [address] [place], [place] [phone] * (ABNORMAL) IRON + TRANSFERRIN PANEL (03/10/2019 1:24 PM REACTOR FUELING SUPERVISOR) Only the most recent of2 resultswithin the time period is included. Iron 48(L) 50 - 170 ug/dL 03/10/2019 5:02 PM [facility] Transferrin 435(H) 180 - 382 mg/dL 03/10/2019 5:02 PM [facility] TIBC Calculated 544(H) 240 - 450 ug/ml 03/10/2019 5:02 PM [facility] Iron Saturation % 9(L) 20 - 50 % 03/10/2019 5:02 PM [facility] Blood BLOOD SPECIMEN / Unknown Venipuncture / Unknown 03/10/2019 1:24 PM REACTOR FUELING SUPERVISOR 03/10/2019 1:49 PM REACTOR FUELING SUPERVISOR Palak Oreilly SLIDING JOINT MAKER-[facility] LAB - ACCOUNTING PRACTICE MANAGER RY ORDERABLES Performing Organization Address [facility] Co de Phone Number [facility] [address] [place] [address] * FERRITIN (03/10/2019 1:24 PM REACTOR FUELING SUPERVISOR) Only the most recent of3 resultswithin the time period is included. Ferritin 6 5 - 204 ng/mL 03/10/2019 5:22 PM [facility] Blood BLOOD SPECIMEN / Unknown Venipuncture / Unknown 03/10/2019 1:24 PM REACTOR FUELING SUPERVISOR 03/10/2019 1:49 PM REACTOR FUELING SUPERVISOR Palak Oreilly APRN-[facility] LAB - ACCOUNTING PRACTICE MANAGER RY ORDERABLES Performing Organization Address [facility] Co de Phone Number [facility] [address] [place] [address] * STREP A SCREEN DIRECT W RFLX STREP A CULTURE (03/10/2019 1:12 PM REACTOR FUELING SUPERVISOR) Strep A Rapid Negative Negative 03/10/2019 2:17 PM REACTOR FUELING SUPERVISOR [facility] Microbiology ENTIRE THROAT (SURFACE REGION OF NECK) / Unknown Collection / Unknown 03/10/2019 1:12 PM REACTOR FUELING SUPERVISOR 03/10/2019 1:52 PM REACTOR FUELING SUPERVISOR Narrative [facility] - 03/10/2019 2:17 PM REACTOR FUELING SUPERVISOR Test has reflexed to a Strep A culture. Ivana Thomas SLIDING JOINT MAKER-[facility] LAB - MICROBIOL OGY ORDERABLES Performing Organization Address [facility] Co de Phone Number [facility] [address] [place] [address] * CULTURE STREP GROUP A (03/10/2019 1:12 PM REACTOR FUELING SUPERVISOR) Culture Negative for beta-hemolytic Streptococcus Group A KENNY 03/12/2019 7:47 AM REACTOR FUELING SUPERVISOR [facility] Microbiology ENTIRE THROAT (SURFACE REGION OF NECK) / Unknown Collection / Unknown 03/10/2019 1:12 PM REACTOR FUELING SUPERVISOR 03/10/2019 1:52 PM REACTOR FUELING SUPERVISOR Ivana Thomas APRN-[facility]ER LAB - MICROBIOL OGY ORDERABLES Performing Organization Address [facility] Co de Phone Number [facility] [address] [place] [address], [facility] [phone] * SONOGRAM - TRANSVAGINAL (03/10/2019 12:29 PM REACTOR FUELING SUPERVISOR) Only the most recent of3 resultswithin the time period is included. Anatomical Region Laterality Modality Other 03/10/2019 12:2 9 PM REACTOR FUELING SUPERVISOR Narrative 03/10/2019 3:24 PM REACTOR FUELING SUPERVISOR ? [facility] ?PHONE: ??FAX: Pat. Name: ?JAYCEE SLATER Pat. No: ?[id number] Study Date: ?? 03/10/2019 ??12:29pm , Age: ? 1980, 39 Height: ? 61 in Weight: ? 175 lb LMP: ?Unknown GA by Base: ?? 27w3d ?? NEGRO: 06/06/2019 GA Selected: ??27w3d (From [place]) NEGRO: ?06/06/2019 Referring MD: Kimberli Galloway MD Combiner Operator: ??Silvina Fair RDMS CPT4: ? 64881,62631 BMI: ?33.06 Hist/Ind: ? Incomplete anatomic survey [...] <Electronic Signature> ??03/10/2019 03:24pm Kimberli Galloway MD [facility] ORDERABLES * KETONES URINE - POINT OF CARE (03/06/2019 1:07 PM REACTOR FUELING SUPERVISOR) Ketone UA neg Negative [facility] POCT TESTING QC Verified Yes Yes [facility] POC T TESTING Urine URINE / Unknown 03/06/2019 1 :07 PM REACTOR FUELING SUPERVISOR Becky Saab MD LAB - POINT OF CARE ORDERABLES Performing Organization Address City/[facility] Co de Phone Number [facility] POCT TESTING [address] [place] [address], [facility] [phone] * CHLAMYDIA + GC AMPLIFIED PROBE (STL) (02/26/2019 1:24 PM REACTOR FUELING SUPERVISOR) Only the most recent of2 resultswithin the time period is included. [facility] Chlamydia Amplified Probe Negative Negative 02/28/2019 1:54 PM REACTOR FUELING SUPERVISOR [facility] GC Amplified Probe Negative Negative 02/28/2019 1:54 PM REACTOR FUELING SUPERVISOR [facility] Microbiology ENTIRE ENDOCERVIX / Unknown Collection / Unknown 02/26/2019 1:24 PM REACTOR FUELING SUPERVISOR 02/26/2019 1:31 PM REACTOR FUELING SUPERVISOR Narrative [facility] - 02/28/2019 1:54 PM REACTOR FUELING SUPERVISOR Results based on detection/no detection of ribosomal RNA by amplified method. Dory Guadarrama MD LAB - MICROBIOLOGY O RDERAHILDA Performing Organization Address [facility] Co de Phone Number [facility] [address] [place] [id number], [facility] [phone] * TRICHOMONAS RAPID TEST (02/26/2019 1:24 PM REACTOR FUELING SUPERVISOR) Only the most recent of2 resultswithin the time period is included. [facility] Trichomonas Rapid Test Negative Negative 02/26/2019 1:55 PM REACTOR FUELING SUPERVISOR [facility] Microbiology VAGINAL SWAB / Unknown Collection / Unknown 02/26/2019 1:24 PM REACTOR FUELING SUPERVISOR 02/26/2019 1:31 PM REACTOR FUELING SUPERVISOR Dory Guadarrama MD LAB - MICROBIOLOGY O RDERAHILDA Performing Organization Address [facility]/ZIP Co de Phone Number [facility] [address] [place] [address] * TRICHOMONAS VAGINALIS AMPLIFIED PROBE (12/30/2018 10:46 AM REACTOR FUELING SUPERVISOR) Trichomonas vaginalis Amplified Probe Negative Negative 12/31/2018 8:15 AM REACTOR FUELING SUPERVISOR [facility] Other URINE / Unknown Collection / Unknown 12/30/2018 10:46 AM REACTOR FUELING SUPERVISOR 12/30/2018 11:08 AM REACTOR FUELING SUPERVISOR Narrative [facility] - 12/31/2018 8:15 AM REACTOR FUELING SUPERVISOR This test was developed and its performance characteristics determined by the [facility], [facility]. Urine specimens tested by the [facility] [place] have not been cleared or approved by the U.S. Food and Drug Administration (FDA). The laboratory is regulated under the Clinical Laboratory Improvement Amendments (CLIA) as qualified to perform high-complexity testing. This test is used for clinical purposes. It should not be regarded as investigational or for research. Results based on detection/no detection of ribosomal RNA by amplified method. Helen Zurita APRNAdhereTx LAB - MICROBIO LOGY ORDERABLES Performing Organization Address City/[facility]/ZIP Co de Phone Number [facility] [address] [place] [address], [facility] [phone] * BACTERIAL VAGINOSIS + YEAST SMEAR (12/30/2018 10:46 AM REACTOR FUELING SUPERVISOR) Clue Cells No Clue Cells Seen No Clue Cells Seen 12/31/2018 12:22 AM REACTOR FUELING SUPERVISOR [facility] Yeast No Yeast Seen No Yeast Seen 01/01/20 12:22 AM REACTOR FUELING SUPERVISOR [facility] Steven Score Steven Score 0-3: Consistent with normal vaginal stefany Steven Score 0-3: Consistent with normal vaginal stefany 12/31/2018 12:22 AM REACTOR FUELING SUPERVISOR [facility] Microbiology ENTIRE VAGINA / Unknown Collection / Unknown 12/30/2018 10:46 AM REACTOR FUELING SUPERVISOR 12/30/2018 11:08 AM REACTOR FUELING SUPERVISOR Helen Zurita SLIDING [facility]INT [facility] LAB - MICROBIO LOGY ORDERABLES Performing Organization Address City/[facility]/ZIP Co de Phone Number [facility] [address] [place] [address], [facility] [phone] * FENTANYL URINE (12/30/2018 9:39 AM REACTOR FUELING SUPERVISOR) Only the most recent of3 resultswithin the time period is included. Fentanyl Negative ng/mL 01/12/2019 11:09 AM [facility] ([facility]) Comment:REFERENCE RANGE: NOT ESTABLISHED Norfentanyl Negative ng/mL 01/12/2019 11:09 AM [facility] ([facility]) Comment:REFERENCE RANGE: NOT ESTABLISHED Sufentanil Negative ng/mL 01/12/2019 11:09 AM [facility] ([facility]) Comment:REFERENCE RANGE: NOT ESTABLISHED Alfentanil Negative ng/mL 01/12/2019 11:09 AM [facility] ([facility]) Comment:REFERENCE RANGE: NOT ESTABLISHED Norsufentanil Negative ng/mL 01/12/2019 11:09 AM [facility] ([facility]) Comment:REFERENCE RANGE: NOT ESTABLISHED Acetyl Fentanyl Negative NEGATIVE ng/mL 01/12/2019 11:09 AM [facility] ([facility]) Acetyl Norfentanyl Negative NEGATIVE ng/mL 01/12/2019 11:09 AM [facility] ([facility]) Comment: This test was developed and its performance characteristics determined by [facility]. ??It has not been cleared or approved by the Food and Drug Administration. Urine URINE / Unknown Collection / Unknown 12/30/2018 9:39 AM REACTOR FUELING SUPERVISOR 12/30/2018 11:06 AM REACTOR FUELING SUPERVISOR Narrative [facility] ([facility]) - 01/12/2019 11:09 AM REACTOR FUELING SUPERVISOR Performed at: ??01 - [employer] [address] [place] [address] ??[id number] Landscape Horticulture Instructor: Yue Hess [facility], Phone: ??[phone] Helen Zurita SLIDING JOINT MAKER-[facility]UT [facility]ER LAB - URINE CH EMISTRY ORDERABLES [facility] ([facility]) [address] [place] [address] * (ABNORMAL) URINALYSIS REFLEX TO MICROSCOPIC NO CULTURE (12/30/2018 9:24 AM REACTOR FUELING SUPERVISOR) Only the most recent of2 resultswithin the time period is included. Color UA Liseth(A) Straw, Yellow 12/30/2018 10:05 AM [facility] Clarity UA Slt Cloudy(A) Clear 12/30/2018 10:05 AM [facility] Glucose UA Negative Negative 12/30/2018 10:05 AM [facility] Bilirubin UA Negative Negative 12/30/2018 10:05 AM [facility] Ketone UA Negative Negative 12/30/2018 10:05 AM [facility] Specific Leland UA 1.024 1.005 - 1.030 12/30/2018 10:05 AM [facility] Blood UA Negative Negative 12/30/2018 10:05 AM [facility] pH UA 6.0 5.0 - 8.0 pH 12/30/2018 10:05 AM [facility] Protein UA 1+(A) Negative 12/30/2018 10:05 AM [facility] Urobilinogen UA Negative Negative mg/dL 12/30/2018 10:05 AM [facility] Nitrite UA Negative Negative 12/30/2018 10:05 AM [facility] Leukocyte UA 1+(A) Negative 12/30/2018 10:05 AM [facility] Urine Microscopy Urine microscopy to follow 12/30/2018 10:05 AM [facility] Urine URINE SPECIMEN OBTAINED BY CLEAN CATCH PROCEDURE / Unknown Collection / Unknown 12/30/2018 9:24 AM REACTOR FUELING SUPERVISOR 12/30/2018 9:54 AM [facility] Narrative [facility] - 12/30/2018 10:05 AM [facility] Helen Zurita SLIDING JOINT MAKER-[facility] LAB - URINALYS IS ORDERABLES [facility] [address] [place], [place] [phone] * (ABNORMAL) URINE MICROSCOPIC ONLY (12/30/2018 9:24 AM [facility]) Only the most recent of2 resultswithin the time period is included. RBC UA 3-5 None Seen, 0-2, 3-5 # /hpf 12/30/2018 10:26 AM [facility] WBC UA 0-5 None Seen, 0-5 # /hpf 12/30/2018 10:26 AM [facility] Hyaline Casts 0-2 None Seen, 0-2 # /lpf 12/30/2018 10:26 AM REACTOR FUELING SUPERVISOR [facility] Bacteria UA Trace(A) None Seen 12/30/2018 10:26 AM [facility] Squamous Epithelial Cells 11-20(A) None Seen, 0-2, 3-5 /hpf 12/30/2018 10:26 AM [facility] Mucus UA 4+ /LPF 12/30/2018 10:26 AM [facility] Urine URINE SPECIMEN OBTAINED BY CLEAN CATCH PROCEDURE / Unknown Collection / Unknown 12/30/2018 9:24 AM REACTOR FUELING SUPERVISOR 12/30/2018 9:54 AM REACTOR FUELING SUPERVISOR Narrative [facility] - 12/30/2018 10:26 AM REACTOR FUELING SUPERVISOR Helen [facility]ita [facility] LAB - URINALYS IS ORDERABLES Performing Organization Address City/[facility]/ZIP Co de Phone Number [facility] [address] [place] [address] * CHLAMYDIA + GC AMPLIFIED PROBE (11/11/2018 12:26 PM CDT) Only the most recent of2 resultswithin the time period is included. Chlamydia Amplified Probe Negative Negative 11/12/2018 8:34 AM CDT [facility] GC Amplified Probe Negative Negative 11/12/2018 8:34 AM CDT [facility] Other ENTIRE ENDOCERVIX / Unknown Collection / Unknown 11/11/2018 12:26 PM CDT 11/11/2018 12:25 PM CDT Narrative [facility] - 11/12/2018 8:34 AM CDT Results based on detection/no detection of ribosomal RNA by amplified method. Helen Zurita SL[facility]ING [facility]INT [facility] LAB - MICROBIO LOGY ORDERABLES [facility] [address] [place] [address], [facility] [phone] * PAP LB HPV HR DNA (11/11/2018 12:09 PM CDT) Diagnosis Comment 11/15/2018 8:07 PM CDT [facility] ([facility]) Comment:NEGATIVE FOR INTRAEP ITHELIAL LESION OR MALIGNANCY. Specimen Adequacy Comment 019 8:07 PM CDT [facility] ([facility]) Comment: Satisfactory for evaluation. ??No endocervical component is identified. An endocervical component is not commonly seen in the patient. Performed by Comment 11/15/2018 8:07 PM CDT [facility] ([facility]) Comment:Bernarda Hutchins Cobol Developer (ASCP) Comment . 11/15/2018 8:07 PM CDT [facility] ([facility]) Note Comment 11/15/2018 8:07 PM CDT [facility] ([facility]) Comment: The Pap smear is a screening test designed to aid in the detection of premalignant and malignant conditions of the uterine cervix. ??It is not a diagnostic procedure and should not be used as the sole means of detecting cervical cancer. ??Both false-positive and false-negative reports do occur. Human papillomavirus High Risk Negative Negative 11/15/2018 8:07 PM CDT [facility] ([facility]) Comment: This high-risk HPV test detects thirteen high-risk types (16/18/31/33/35/39/45/51/52/56/58/59/68) without differentiation. Pathology/Cytolo gy ENTIRE ENDOCERVIX / Unknown Collection / Unknown 11/11/2018 12:09 PM CDT 11/11/2018 12:27 PM CDT [facility] ([facility]) - 11/15/2018 8:07 PM CDT Performed at: ??01 - [facility] ??[id number] Landscape Horticulture Instructor: Onelia Barbosa MD, Phone: ??[phone] Performed at: ??02 - [facility] [address] ??[id number] Landscape Horticulture Instructor: Onelia Barbosa MD, Phone: ??[phone] Specimen Comment: Source.............Endocervix Specimen Comment: LMP / Prev Treat...Con[place] / BX Specimen Comment: Other.............. Specimen Comment: No. of containers..01 ThinPrep Vial Helen Zurita SLIDING JOINT MAKER-[facility] LAB - PATHOLOG Y/CYTOLOGY ORDERABLES Performing Organization Address [facility] de Phone Number [facility] [address] [place] [address] * RUBELLA ANTIBODY IGG (11/11/2018 12:07 PM CDT) Rubella Antibody 4.02 Immune >0.99 index 11/12/2018 8:12 AM CDT [facility] ([facility]) Comment: ?Non-immune ? <0.90 ?Equivocal ??0.90 - 0.99 ?Immune ? >0.99 Blood BLOOD SPECIMEN / Unknown Venipuncture / Unknown 11/11/2018 12:07 PM CDT 11/11/2018 12:56 PM CDT Narrative [facility] ([facility]) - 11/12/2018 8:12 AM CDT Performed at: ??01 - [address] ??[id number] Landscape Horticulture Instructor: Neil Aviles PhD, Phone: ??[phone] Helen Zurita APRN-[facility]UT [facility]ER LAB - SEROLOGY ORDERABLES Performing Organization Address [facility] Co de Phone Number [facility] ([facility]) [address] [place] [address] * HEMOGLOBIN ELECTROPHORESIS (11/11/2018 12:07 PM CDT) Hemoglobin A1 97.3 97.1 - 99.1 % 11/17/2018 12:40 PM CDT [facility] Hemoglobin F 0.0 0.0 - 2.0 % 11/17/2018 12:40 PM CDT [facility] Hemoglobin S 0.0 <=0.0 % 11/17/2018 12:40 PM CDT [facility] Hemoglobin C 0.0 <=0.0 % 11/17/2018 12:40 PM CDT [facility] Hemoglobin A2 2.7 0.9 - 2.9 % 11/17/2018 12:40 PM CDT [facility] Hemoglobin E 0.0 % 11/17/2018 12:40 PM CDT [facility] Interpretation Normal Interpretation 11/17/2018 12:40 PM CDT [facility] Blood BLOOD SPECIMEN / Unknown Venipuncture / Unknown 11/11/2018 12:07 PM CDT 11/11/2018 12:57 PM CDT Helen [facility] LAB - CHEMISTR Y ORDERABLES Performing Organization Address [facility] Co de Phone Number [facility] [address] [place] [phone] * HEMOGLOBIN A1C (11/11/2018 12:07 PM CDT) [facility] Hemoglobin A1c 5.0 4.0 - 6.1 % 11/11/2018 1:26 PM CDT [facility] Estimated Average Glucose 97 mg/dL 11/11/2018 1:26 PM CDT [facility] Blood BLOOD SPECIMEN / Unknown Venipuncture / Unknown 11/11/2018 12:07 PM CDT 11/11/2018 12:56 PM CDT [facility] - CHEMISTR Y ORDERABLES Performing Organization Address [facility] Co de Phone Number [facility] [address] [place] [address] * (ABNORMAL) CYSTIC FIBROSIS MUTATION PNL (11/11/2018 12:07 PM CDT) [facility] Cystic Fibrosis Screen CARRIER(A) 11/22/2018 11:08 AM CDT [facility] ([facility]) Comment: RESULTS: POSITIVE for one copy of [...] ? Detection Ethnicity ?Rate Ashkenazi ? 97% Faith ? 90% (non-) -[place] Verdean ?69% ?73% ? 55% This interpretation is based on the clinical and family relationship information provided and the current understanding of the molecular genetics of this condition. MUTATIONS ANALYZED: G85E ?V520F ?O0921W ? 2183AA to G R117H ? G542X ?E8948D ? 2184delA R334W ? S549N ?394delTT ? 2789+5G to A R347H ? S549R ?621+1G to T ?3120+1G to A R347P ? G551D ?711+1G to T ?3659delC A455E ? R553X ?1078delT ? 3849+10kbC to T RkmcoP496 ?? R560T ?1717-1G to A ?? 3876delA QydxoC383 ?? Y9866A ?? 1898+1G to A ?? 3905insT METHODS/LIMITATIONS: DNA is isolated from the sample and tested for the 32 CF mutations on the [employer] Array Platform ([employer]). Regions of the CFTR gene are amplified enzymatically and subjected to a solution-phase multiplex allele-specific primer extension with subsequent hybridization to a bead array and fluorescence detection. ??Polymorphisms F508C, I506V and I507V are included in this panel to rule out false positive [id number] homozygotes. ??Reflex testing of 5T is included in the panel for R117H interpretation. False positive or negative results may occur for reasons that include genetic variants, blood transfusions, bone marrow transplantation, erroneous representation of family relationships or contamination of a sample with maternal cells. REFERENCES: 1. Updates on Carrier Screening for Cystic Fibrosis. (2011) ?? Am J Ob Gynecol 117(4):4836-4065 2. Chacho et al. (2004) Estefany Med 6:387-91 3. Ahmet, et al. (2002) [facility] Med 4:379-391 4. Preconception and carrier screening for cystic ?? fibrosis: (2001)ACOG.ACMG publication Results Released By: Srinath Perrin, Ph.D., Steam Drier Tender Released By: Yolanda Rich MS, [facility] [place] Genetic Counselor Comment Comment 11/22/2018 11:08 AM CDT [facility] ([facility]) Comment: The assay provides information intended to [...] CDT 11/11/2018 12:56 PM CDT Narrative [facility] ([facility]) - 11/22/2018 11:08 AM CDT Performed at: ??01 - [facility] [address] [place], [place] ??[id number] Landscape Horticulture Instructor: Oscar Angelo MD, Phone: ??[phone] Helen Zurita SLIDING JOINT MAKER-[facility] - HEMATOLO GY ORDERABLES [facility] ([facility]) [address] [place] [address] * HEPATITIS B SURFACE ANTIGEN W RFLX CONFIRMATION (11/11/2018 12:07 PM CDT) Pathologist [facility] HBsAg Non Reactive Non Reactive 11/11/2018 1:55 PM CDT [facility] Blood BLOOD SPECIMEN / Unknown Venipuncture / Unknown 11/11/2018 12:07 PM CDT 11/11/2018 12:57 PM CDT Helen Zurita APRN-NUT PICKER LAB - CHEMISTR Y ORDERABLES Performing Organization Address City/[facility]/ZIP Co de Phone Number [facility] [address] [place] [address] * HEPATITIS C ANTIBODY (11/11/2018 12:07 PM CDT) Only the most recent of2 resultswithin the time period is included. Pathologist [facility] HCV Antibody Screen Non Reactive Non Reactive 11/11/2018 1:55 PM CDT [facility] HCV S/C Ratio 0.19 0.00 - 0.79 11/11/2018 1:55 PM CDT [facility] Comment: Imczuy-jp-wchata ratio (S/CO) <0.80:?? Non Reactive Blood BLOOD SPECIMEN / Unknown Venipuncture / Unknown 11/11/2018 12:07 PM CDT 11/11/2018 12:56 PM CDT Narrative [facility] - 11/11/2018 1:55 PM CDT Non Reactive - Antibodies to Hepatitis C virus (HCV) were not detected, result does not exclude early acute HCV infection. Helen Zurita SLIDING JOINT MAKER-NUT PICKER LAB - CHEMISTR Y ORDERABLES [facility] [address] [place] [address] * PANORAMA TEST (11/11/2018) Pathologist [facility] Comment Genetics Low risk-Femal e Blood BLOOD SPECIMEN / Unknown Historical Provider LAB - CHEMISTRY O RDERABLES * APHERESIS/TRANSFUSION ORDER (09/06/2015 10:33 AM CDT) Narrative 09/06/2015 10:33 AM CDT Ordered by an unspecified provider. Scanned Document NURSING - VITAL SIGN S AND ASSESSMENT * (ABNORMAL) DIFFERENTIAL MANUAL (09/01/2015 7:00 AM CDT) Only the most recent of2 resultswithin the time period is included. Pathologist [facility] WBC Auto 18.3 x10E9/L 09/01/2015 8:51 AM CDT [facility] WBC Corrected 4.4 - 10.7 x10E9/L 09/01/2015 8:51 AM CDT [facility] nRBC /100 WBC 09/01/2015 8:51 AM CDT [facility] Neutrophil % Manual 76(H) 44 - 73 % 09/01/2015 8:51 AM CDT [facility] Lymphocytes % Manual 5(L) 20 - 43 % 09/01/2015 8:51 AM CDT [facility] Monocytes % Manual 3(L) 5 - 13 % 09/01/2015 8:51 AM CDT [facility] Band % Manual 16(H) 0 - 11 % 09/01/2015 8:51 AM CDT [facility] Cells Counted 100 # cells 09/01/2015 8:51 AM CDT [facility] RBC Morphology Normal 09/01/2015 8:51 AM CDT [facility] WBC Morph Normal 09/01/2015 8:51 AM CDT [facility] Platelet Estimation Normal 09/01/2015 8:51 AM CDT [facility] Blood BLOOD SPECIMEN / Unknown Venipuncture / Unknown 09/01/2015 7:00 AM CDT 09/01/2015 7:45 AM CDT Daylin Macias MD LAB - HEMATOLOGY ORDERABLES Performing Organization Address City/[facility]/ZIP Co de Phone Number [facility] [address] [place] [address] * TRANSFUSE RED BLOOD CELL UNIT(S) (09/01/2015 1:54 AM CDT) Braxton Arias MD NURSING - BLOOD PROD TRANSFUSION * PREPARE FFP UNIT(S) (08/31/2015 10:44 PM CDT) Only the most recent of2 resultswithin the time period is included. [facility] Unit Donor # [id number] 09/01/2015 8:20 AM CDT [facility] Product Code E2701 09/01/2015 8:20 AM CDT [facility] Unit Description E2701 Plasma, CPD,Thawed 09/01/2015 8:20 AM CDT [facility] Unit Status Transfused Unit 09/01/2015 8:20 AM CDT [facility] ABO Donor Type AB 09/01/2015 8:20 AM CDT [facility] Rh Type Unit POS 09/01/2015 8:20 AM CDT [facility] Miscellaneous samples (specimen) BLOOD SPECIMEN / Unknown Venipuncture / Unknown 08/31/2015 10:44 PM CDT 08/31/2015 10:46 PM CDT Braxton Arias MD LAB - BLOOD BANK ORDERABLES Performing Organization Address City/[facility]/ZIP Co de Phone Number [facility] [address] * HIV-1 HIV-2 ANTIBODY + HIV P24 AG RAPID PNL (08/31/2015 10:30 PM CDT) Only the most recent of2 resultswithin the time period is included. [facility] HIV1/2 Ab + P24 Ag Rapid Non Reactive Non Reactive 08/31/2015 11:14 PM CDT [facility] Blood BLOOD SPECIMEN / Unknown Venipuncture / Unknown 08/31/2015 10:30 PM CDT 08/31/2015 10:42 PM CDT Narrative [facility] - 08/31/2015 11:14 PM CDT No Laboratory evidence of HIV infection. Braxton Arias MD LAB - SEROLOGY O RDERABLES Performing Organization Address [facility]/ZIP Co de Phone Number [facility] [address] [place] [address] * RPR (08/31/2015 10:30 PM CDT) RPR Non Reactive Non Reactive 09/01/2015 9:29 AM CDT [facility] Blood BLOOD SPECIMEN / Unknown Venipuncture / Unknown 08/31/2015 10:30 PM CDT 08/31/2015 10:42 PM CDT Braxton Arias MD LAB - CHEMISTRY ORDERABLES Performing Organization Address [facility] de Phone Number [facility] [address] [place] [address] * (ABNORMAL) COAGULATION PANEL W D-DIMER (08/31/2015 10:30 PM CDT) PT 9.6 9.5 - 11.6 sec 08/31/2015 11:56 PM CDT [facility] INR 0.9 0.9 - 1.1 08/31/2015 11:56 PM CDT [facility] PTT 23.7 21.0 - 32.0 sec 08/31/2015 11:56 PM CDT [facility] Fibrinogen 366 200 - 400 mg/dL 08/31/2015 11:56 PM CDT [facility] D-Dimer 1.84(H) 0.17 - 0.5 mg/L FEU 08/31/2015 11:56 PM CDT [facility] Platelet Count 288 153 - 416 x10E9/L 08/31/2015 11:56 PM CDT [facility] Blood BLOOD SPECIMEN / Unknown Venipuncture / Unknown 08/31/2015 10:30 PM CDT 08/31/2015 10:41 PM CDT [facility] - 08/31/2015 11:56 PM CDT Conventional [...] LAB - COAGULATION ORDERABLES Performing Organization Address City/State/[facility] Co de Phone Number [facility] [address] [place] [address] * HEPATITIS SCREEN ACUTE (08/31/2015 10:30 PM CDT) Only the most recent of2 resultswithin the time period is included. Pathologist [facility] HAV Antibody IgM Non Reactive Non Reactive 09/01/2015 1:23 AM CDT [facility] HBsAg Non Reactive Non Reactive 09/01/2015 1:23 AM CDT [facility] HBc Antibody IgM Non Reactive Non Reactive 09/01/2015 1:23 AM CDT [facility] HCV Antibody Screen Non Reactive Non Reactive 09/01/2015 1:23 AM CDT [facility] HCV S/C Ratio <0.02 0.00 - 0.79 09/01/2015 1:23 AM CDT [facility] Comment: Ndmllj-gs-yeuhcf ratio (S/CO) <0.80:?? Non Reactive Blood BLOOD SPECIMEN / Unknown Venipuncture / Unknown 08/31/2015 10:30 PM CDT 08/31/2015 10:42 PM CDT [facility] - 09/01/2015 1:23 AM CDT Non Reactive - Antibodies to Hepatitis C virus (HCV) were not detected, result does not exclude early acute HCV infection. Non Reactive - Antibodies to Hepatitis C virus (HCV) were not detected, result does not exclude early acute HCV infection. Braxton Arias MD LAB - CHEMISTRY ORDERABLES [facility] [address] [place] [address] * (ABNORMAL) BLOOD GASES CORD GENIA (ISTAT) (08/31/2015 10:15 PM CDT) Only the most recent of2 resultswithin the time period is included. pH Cord Venous POCT 7.28 7.28 - 7.40 pH 09/01/2015 2:[address] [facility] pCO2 Cord Venous POCT 51(H) 35 - 45 mmHg 09/01/2015 2:[address] [facility] pO2 Cord Venous POCT 18(L) 22 - 33 mmHg 09/01/2015 2:[address] [facility] HCO3 Cord Arterial POCT 24 22 - 24 mmol/L 09/01/2015 2:[address] [facility] BE Cord Venous POCT Calc -4 -6 - 2 mmol/L 09/01/2015 2:[address] [facility] TCO2 Cord Venous POCT 25 22 - 30 mmol/L 09/01/2015 2:[address] [facility] O2 Saturation % Cord Venous Calc POCT 21 % 09/01/2015 2:[address] [facility] Site CORD GENIA 09/01/2015 2:[address] [facility] Sample iSTAT CORD V 09/01/2015 2:[address] [facility] Blood CORD BLOOD SPECIMEN / Unknown 08/31/2015 10:15 PM CDT 09/01/2015 2:12 AM CDT Bakari Lomeli MD LAB - POINT OF CARE ORDERABLES Performing Organization Address City/[facility]/ZIP Co de Phone Number [facility] [address] [place] [address] * (ABNORMAL) BLOOD GASES CORD ART (ISTAT) (08/31/2015 10:10 PM CDT) Only the most recent of2 resultswithin the time period is included. pH Cord Arterial POCT 7.22 7.20 - 7.34 pH 09/01/2015 2:12 AM CDT [facility] pCO2 Cord Arterial POCT 63.1(H) 45 - 55 mmHg 09/01/2015 2:12 AM CDT [facility] pO2 Cord Arterial POCT 10(L) 12 - 25 mmHg 09/01/2015 2:12 AM CDT [facility] HCO3 Cord Arterial POCT 26.0 15 - 29 mmol/L 09/01/2015 2:12 AM CDT [facility] BE Cord Arterial POCT -3(L) -2.9 - 8.3 mmol/L 09/01/2015 2:12 AM CDT [facility] TCO2 Cord Arterial POCT 28 mmol/L 09/01/2015 2:12 AM CDT [facility] O2 Saturation Cord Art % Calc POCT 7 % 09/01/2015 2:12 AM CDT [facility] Site CORD ART 09/01/2015 2:12 AM CDT [facility] Sample iSTAT CORD A 09/01/2015 2:12 AM CDT [facility] Blood CORD BLOOD SPECIMEN / Unknown 08/31/2015 10:10 PM CDT 09/01/2015 2:12 AM CDT Bakari Lomeli MD LAB - POINT OF CARE ORDERABLES [facility] [address] [place] [address] * NEURAXIAL BLOCK (08/31/2015 8:39 PM CDT) Narrative Mercy Dean APRN-STORE PRODUCT DEMONSTRATOR - 08/31/2015 8:39 PM CDT Mercy Dean APRN-STORE PRODUCT DEMONSTRATOR ? 08/31/2015 ??8:39 PM NEURAXIAL BLOCK Patient [...] 8:26 PM Block Performed by: ??cassandra Dean STORE PRODUCT DEMONSTRATOR Notes: ??Called to patients room. Epidural placed without complications. Negative heme, Neg, CSF + ADELAIDA x 1 attempt. ??Pt getting comfortable Bakari Lomeli MD GENERAL ANESTHESIA O RDERABLES * CROSSMATCH RBC (08/31/2015 8:18 PM CDT) Only the most recent of4 resultswithin the time period is included. Unit Donor # [id number] -[id number] 09/01/2015 8:21 AM CDT [facility] Product Code E0336 09/01/2015 8:21 AM CDT [facility] Unit Description E0336 RBC, LR, CPD>AS1 09/01/2015 8:21 AM CDT [facility] ABO Donor Type A 09/01/2015 8:21 AM CDT [facility] Rh Type Unit POS 09/01/2015 8:21 AM CDT [facility] Crossmatch Interpretation Compatible 09/01/2015 8:21 AM CDT [facility] Unit Status Transfused Unit 09/01/2015 8:21 AM CDT [facility] Miscellaneous samples (specimen) BLOOD SPECIMEN / Unknown 08/31/2015 8:18 PM CDT 08/31/2015 8:36 PM CDT Daylin Macias MD LAB - BLOOD BANK ORDERABLES Performing Organization Address [facility] Co de Phone Number [facility] [address] [place] [address] * (ABNORMAL) FIBRINOGEN ACTIVITY (08/31/2015 6:25 PM CDT) Fibrinogen 471(H) 200 - 400 mg/dL 08/31/2015 7:09 PM CDT [facility] Blood BLOOD SPECIMEN / Unknown Venipuncture / Unknown 08/31/2015 6:25 PM CDT 08/31/2015 6:36 PM CDT Gabrielle Plata MD LAB - COAGULATION OR DERABLES [facility] [address] [place] [address] * PTT (08/31/2015 6:25 PM CDT) PTT 23.0 21.0 - 32.0 sec 08/31/2015 7:09 PM CDT [facility] Blood BLOOD SPECIMEN / Unknown Venipuncture / Unknown 08/31/2015 6:25 PM CDT 08/31/2015 6:36 PM CDT Narrative [facility] - 08/31/2015 7:09 PM CDT Heparin Therapeutic Range for PTT: 47.7 - 68.6 seconds. Gabrielle Plata MD LAB - COAGULATION OR DERABLES Performing Organization Address [facility] Co de Phone Number [facility] [address] [place], [place] [id number] * (ABNORMAL) PT-INR (08/31/2015 6:25 PM CDT) PT <9.5(L) 9.5 - 11.6 sec 08/31/2015 7:10 PM CDT [facility] INR 0.9 0.9 - 1.1 08/31/2015 7:10 PM CDT [facility] Blood BLOOD SPECIMEN / Unknown Venipuncture / Unknown 08/31/2015 6:25 PM CDT 08/31/2015 6:36 PM CDT Narrative [facility] - 08/31/2015 7:10 PM CDT Conventional Warfarin Anticoagulant Therapy: INR Reference Range: ??2.0-3.0 Intensive Warfarin Anticoagulant Therapy: INR Reference Range: ? 2.5-3.5 Gabrielle Plata MD LAB - COAGULATION OR DERABLES Performing Organization Address [facility] de Phone Number [facility] [address] [place] [address] * PATHOLOGY/GENETICS HISTORICAL-ONBASE (08/31/2015) 08/31/2015 Historical Provider LAB - CHEMISTRY O RDERABLES Performing Organization Address City/[facility] Co de Phone Number [address] * LAB RESULTS ORDER (08/05/2015 1:49 AM CDT) Only the most recent of2 resultswithin the time period is included. Narrative 08/05/2015 1:49 AM CDT Ordered by an unspecified provider. Scanned Document LAB - THERAPEUTIC DR UG MONITORING ORDERABLES * (ABNORMAL) HEPATIC FUNCTION PANEL (07/18/2015 2:24 PM CDT) Alkaline Phosphatase 135(H) 38 - 126 U/L 07/18/2015 3:15 PM CDT [facility] ALT 16 12 - 78 U/L 07/18/2015 3:15 PM CDT [facility] AST 12 5 - 40 U/L 07/18/2015 3:15 PM CDT [facility] Protein Total 6.9 6.4 - 8.2 gm/dL 07/18/2015 3:15 PM CDT [facility] Albumin 2.6(L) 3.4 - 5.0 gm/dL 07/18/2015 3:15 PM CDT [facility] Bilirubin Total 0.2 0.2 - 1.0 mg/dL 07/18/2015 3:15 PM CDT [facility] Bilirubin Direct <0.1 0 - 0.3 mg/dL 07/18/2015 3:15 PM CDT [facility] Blood BLOOD SPECIMEN / Unknown Venipuncture / Unknown 07/18/2015 2:24 PM CDT 07/18/2015 2:35 PM CDT Loy Grider MD LAB - CHEMISTRY RM [facility] Organization Address City/State/[facility] Co de Phone Number [facility] [address] [place] [phone] * NEURAXIAL BLOCK (04/03/2014 10:41 AM REACTOR FUELING SUPERVISOR) Narrative Yolanda Dean APRN-CRNA - 04/03/2014 10:41 AM REACTOR FUELING SUPERVISOR [facility]RISTI Kat ? 04/03/2014 10:41 AM NEURAXIAL [...] * BLOOD TYPE VERIFICATION (04/03/2014 8:57 AM REACTOR FUELING SUPERVISOR) ABO A 04/03/2014 9:53 AM REACTOR FUELING SUPERVISOR [facility] Rh Type Positive 04/03/2014 9:53 AM REACTOR FUELING SUPERVISOR [facility] Miscellaneous samples (specimen) BLOOD SPECIMEN / Unknown Venipuncture / Unknown 04/03/2014 8:57 AM REACTOR FUELING SUPERVISOR 04/03/2014 9:22 AM REACTOR FUELING SUPERVISOR Jaren Vázquez MD LAB - BLOOD BANK ORD ERABLES [facility] [address] Care Teams Gis Scientist Relationship Specialty Start Date End Date Mario Logan MD [address] [place] [id number] PCP - General 05/24/19
--- OUTSIDE RECORDS SUMMARY | 2024-03-29 19:20 | XMS_ITS | Encounter Summary ---
Author Organization [facility] Address [address] [place] [address] Care Team Providers Care Shorthand Teacher Name Role Phone None, Provider Primary Care Provider Unavaila ble Encounter Details Date Type Department Care Team (Late st Contact Info) Description 07/31/2018 Abstract SFL CONVERSION [address] [place] [address] , Generic Conversion, Social History [...] on filedocumented in this encounter Care Teams Shorthand Teacher Relationship Specialty Start Date End Date None, Provider, PCP - General UNKNOWN PHYSICIAN SPECIALTY 07/13/23 documented as of this encounter
--- OUTSIDE RECORDS SUMMARY | 2024-03-29 19:20 | XMS_ITS | Clinical Summary ---
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 Yes 10/13/2023 Comments No Sex and Gender Information Value Date Recorded Sex Assigned at Not on file Legal Sex Female 11:36 PM CDT Gender Identity Not on file Sexual Orientation Not on file Last Filed Vital Signs Vital Sign Reading Time Taken Comments Blood Pressure 125/80 02/04/2024 6:44 PM RECRUITMENT INTERN Pulse 85 02/04/2024 6:44 PM RECRUITMENT INTERN Temperature 36.9 ??C (98.5 ??F) 02/04/2024 6:44 PM CS T Respiratory Rate 16 02/04/2024 6:44 PM RECRUITMENT INTERN Oxygen Saturation 100% 02/04/2024 6:44 PM RECRUITMENT INTERN Inhaled Oxygen Concentration - - Weight 52.7 kg (116 lb 1.6 oz) 02/04/2024 6:44 P M RECRUITMENT INTERN Height 154.9 cm (5' 1 ) 02/04/2024 6:44 PM RECRUITMENT INTERN Body Mass Index 21.94 02/04/2024 6:44 PM RECRUITMENT INTERN Plan of Treatment Health Maintenance Due Date [...] LABORATORY Final Result [facility] [address] [place] [address], [id number] from Last 3 Months or Most Recently Relevant to Health Maintenance Insurance [employer] Advance Directives Documents on File Type Date Recorded Patient Division Commander Expl anation Advance Directives and Living Will 05/10/2015 12:00 AM ADVANCED DIRECTIVES Advance Directives and Living Will 08/06/2013 12:00 AM ADVANCED DIRECTIVES Advance Directives and Living Will 12/28/2012 12:00 AM ADVANCED DIRECTIVES * Full Code (Latest Code Status on File) Date Activated Date Inactivated Comments 10/13/2023 5:53 AM 10/14/2023 10:50 AM Care Teams History Tutor Relationship Specialty Start Date End Date None, Provider, PCP - General UNKNOWN PHYSICIAN SPECIALTY 07/13/23
--- OUTSIDE RECORDS SUMMARY | 2024-03-29 19:20 | XMS_ITS | Clinical Summary ---
Author Organization [facility] Address [address] [place] [address] Care Team Providers Care Marine Architect Name Role Phone Christofer Stewart MD Primary [...] 1.7 cm about 1.5 years ago in [facility] - obtain US of thyroid, labs ordered [...] on file Legal Sex Female 11:53 AM [place] Gender Identity Not on file Sexual Orientation [...] patient's age to complete this topic Insurance [facility] Advance Directives For more information, please contact: [phone] * Full Code (Latest Code Status on File) Date Activated Date Inactivated Comments 10/20/2023 12:17 PM 10/20/2023 8:58 PM Care Teams Marine Architect Relationship Specialty Start Date End Date Christofer Stewart MD [address] [facility] [address] ESTRELLA A [address] [address] PCP - General Family Medicine 06/23/23
--- OUTSIDE RECORDS SUMMARY | 2024-03-29 19:20 | XMS_ITS | Clinical Summary ---
Author Organization [facility] [employer] Address [address] [place] [address] Care Team Providers Care Analyst Competitive Intelligence Name Role Phone Mario Logan MD Primary Care Provider Source Comments [facility],non-owned Affiliates and Associated Physician Practices is amultiple site organization consisting of ambulatory clinics and hospital sitesin [place], [place], [place] and [place]. This disclosure is being madepursuant to the Care Everywhere program and may not contain all information available regarding this patient. Last updated 17.[facility] [employer] Allergies Active Allergy Reactions Criticality Noted Date [...] naloxone HCl (NARCAN) 4 MG/0.1ML nasal spray [place] 1 spray into the nose as needed [...] migh t be different from the original. [id number] Problem Noted Date Diagnosed Date Non-reactive NST [...] 02/28/2014 Overview (05/05/2019): Confirmed dose-270 mg from [facility]. Scanned Into media. Previously used heroin [...] 05/30/04: neg 2000: CRISTIAN 3 s/p [place]EEP [place] Evaluate anatomy not seen on prior sonogram [...] P24 AG PANEL Routine 03/10/2019 1:24 PM OUTBOUND SUPERVISOR Supervision of high risk in second trimester (HCC) PAP LB HPV HR DNA Routine 11/11/2018 12: 09 PM CDT Cervical cancer screening HEPATITIS C ANTIBODY Routine 11/11/2018 12:07 PM CDT Supervision of high risk , antepartum (HCC) from Last 3 Months or Most Recently Relevant to Health Maintenance Results * HIV-1 HIV-2 ANTIBODY + HIV P24 AG PANEL (03/10/2019 1:24 PM OUTBOUND SUPERVISOR) HIV1/2 Ab + P24 Ag Non Reactive Non Reactive 03/10/2019 2:57 PM OUTBOUND SUPERVISOR [facility] Blood BLOOD SPECIMEN / Unknown Venipuncture / Unknown 03/10/2019 1:24 PM OUTBOUND SUPERVISOR 03/10/2019 1:49 PM OUTBOUND SUPERVISOR Narrative [facility] - 03/10/2019 2:57 PM OUTBOUND SUPERVISOR No Laboratory evidence of HIV infection. Ivana Thomas SUPERINTENDENT WAREHOUSE-BUSINESS RELATIONS MANAGER LAB - CHEMISTRY ORDERABLES [facility] [address] [place] [address] * PAP LB HPV HR DNA (11/11/2018 12:09 PM CDT) Diagnosis Comment 11/15/2018 8:07 PM CDT [facility] ([facility]) Comment:NEGATIVE FOR INTRAEP ITHELIAL LESION OR MALIGNANCY. Specimen Adequacy Comment 019 8:07 PM CDT [facility] ([facility]) Comment: Satisfactory for evaluation. ??No endocervical component is identified. An endocervical component is not commonly seen in the patient. Performed by Comment 11/15/2018 8:07 PM CDT [facility] ([facility]) Comment:Bernarda Hutchins Government Property Inspector (ASCP) Comment . 11/15/2018 8:07 PM CDT [facility] ([facility]) Note Comment 11/15/2018 8:07 PM CDT [facility] ([facility]) Comment: The Pap smear is a screening test designed to aid in the detection of premalignant and malignant conditions of the uterine cervix. ??It is not a diagnostic procedure and should not be used as the sole means of detecting cervical cancer. ??Both false-positive and false-negative reports do occur. Human papillomavirus High Risk Negative Negative 11/15/2018 8:07 PM CDT [facility] ([facility]) Comment: This high-risk HPV test detects thirteen high-risk types (16/18/31/33/35/39/45/51/52/56/58/59/68) without differentiation. Pathology/Cytolo gy ENTIRE ENDOCERVIX / Unknown Collection / Unknown 11/11/2018 12:09 PM CDT 11/11/2018 12:27 PM CDT Narrative [facility] ([facility]) - 11/15/2018 8:07 PM CDT Performed at: ??01 - [facility] ??[id number] Rod Straightener: Onelia Barbosa MD, Phone: ??[phone] Performed at: ??02 - [facility] [address] ??[id number] Rod Straightener: Onelia Barbosa MD, Phone: ??[phone] Specimen Comment: Source.............Endocervix Specimen Comment: LMP / Prev Treat...Conization;[place] / BX Specimen Comment: Other.............. Specimen Comment: No. of containers..01 ThinPrep Vial Helen Zurita SUPERINTENDENT WAREHOUSE-BUSINESS RELATIONS MANAGER LAB - PATHOLOG Y/CYTOLOGY ORDERABLES [facility] ([facility]) [address] [address] * HEPATITIS C ANTIBODY (11/11/2018 12:07 PM CDT) HCV Antibody Screen Non Reactive Non Reactive 11/11/2018 1:55 PM CDT [facility] HCV S/C Ratio 0.19 0.00 - 0.79 11/11/2018 1:55 PM CDT [facility] Comment: Majivu-yp-guokqo ratio (S/CO) <0.80:?? Non Reactive Blood BLOOD SPECIMEN / Unknown Venipuncture / Unknown 11/11/2018 12:07 PM CDT 11/11/2018 12:56 PM CDT Narrative [facility] - 11/11/2018 1:55 PM CDT Non Reactive - Antibodies to Hepatitis C virus (HCV) were not detected, result does not exclude early acute HCV infection. Helen Zurita SUPERINTENDENT WAREHOUSE-BUSINESS RELATIONS MANAGER LAB - CHEMISTR Y ORDERABLES Performing Organization Address City/[facility]/ZIP Co de Phone Number [facility] [address] [place] [address] from Last 3 Months or Most Recently [...] 11:00 AM 03/17/2019 7:31 PM Care Teams Analyst Competitive Intelligence Relationship Specialty Start Date End Date Mario Logan MD [address] [place] [address] PCP - General 05/24/19
--- OUTSIDE RECORDS SUMMARY | 2024-03-29 19:20 | XMS_ITS | Referral Summary ---
Author Organization [facility] [employer] Address [address] [place] [address] Care Team Providers Care Juvenile Correctional Officer Name Role Phone Mario Logan MD Primary Care Provider Source Comments [facility],non-owned Affiliates and Associated Physician Practices is amultiple site organization consisting of ambulatory clinics and hospital sitesin [place], [place], [place] and [place]. This disclosure is being madepursuant to the Care Everywhere program and may not contain all information available regarding this patient. Last updated 17.[facility] [employer] Allergies Active Allergy Reactions Criticality Noted Date [...] naloxone HCl (NARCAN) 4 MG/0.1ML nasal spray [place] 1 spray into the nose as needed [...] migh t be different from the original. [id number] Problem Noted Date Diagnosed Date Non-reactive NST [...] 02/28/2014 Overview (05/05/2019): Confirmed dose-270 mg from [facility]. Scanned Into media. Previously used heroin [...] 05/30/04: neg 2000: CRISTIAN 3 s/p LEEP [place] Evaluate anatomy not seen on prior sonogram [...] P24 AG PANEL Routine 03/10/2019 1:24 PM INDUSTRIAL EDUCATION INSTRUCTOR Supervision of high risk in second trimester (HCC) PAP LB HPV HR DNA Routine 11/11/2018 12: 09 PM CDT Cervical cancer screening HEPATITIS C ANTIBODY Routine 11/11/2018 12:07 PM CDT Supervision of high risk , antepartum (HCC) from Last 3 Months or Most Recently Relevant to Health Maintenance Results * HIV-1 HIV-2 ANTIBODY + HIV P24 AG PANEL (03/10/2019 1:24 PM INDUSTRIAL EDUCATION INSTRUCTOR) HIV1/2 Ab + P24 Ag Non Reactive Non Reactive 03/10/2019 2:57 PM INDUSTRIAL EDUCATION INSTRUCTOR [facility] Blood BLOOD SPECIMEN / Unknown Venipuncture / Unknown 03/10/2019 1:24 PM INDUSTRIAL EDUCATION INSTRUCTOR 03/10/2019 1:49 PM INDUSTRIAL EDUCATION INSTRUCTOR Narrative [facility] - 03/10/2019 2:57 PM INDUSTRIAL EDUCATION INSTRUCTOR No Laboratory evidence of HIV infection. Ivana Thomas STRIPPER PRELIMINARY-INTERNET E COMMERCE SPECIALIST LAB - CHEMISTRY ORDERABLES [facility] [address] [place] [address] * PAP LB HPV HR DNA (11/11/2018 12:09 PM CDT) Diagnosis Comment 11/15/2018 8:07 PM CDT [facility] ([facility]) Comment:NEGATIVE FOR INTRAEP ITHELIAL LESION OR MALIGNANCY. Specimen Adequacy Comment 019 8:07 PM CDT [facility] ([facility]) Comment: Satisfactory for evaluation. ??No endocervical component is identified. An endocervical component is not commonly seen in the patient. Performed by Comment 11/15/2018 8:07 PM CDT [facility] ([facility]) Comment:Bernarda Hutchins Stave Machine Tender (ASCP) Comment . 11/15/2018 8:07 PM CDT [facility] ([facility]) Note Comment 11/15/2018 8:07 PM CDT [facility] ([facility]) Comment: The Pap smear is a screening test designed to aid in the detection of premalignant and malignant conditions of the uterine cervix. ??It is not a diagnostic procedure and should not be used as the sole means of detecting cervical cancer. ??Both false-positive and false-negative reports do occur. Human papillomavirus High Risk Negative Negative 11/15/2018 8:07 PM CDT [facility] ([facility]) Comment: This high-risk HPV test detects thirteen high-risk types (16/18/31/33/35/39/45/51/52/56/58/59/68) without differentiation. Pathology/Cytolo gy ENTIRE ENDOCERVIX / Unknown Collection / Unknown 11/11/2018 12:09 PM CDT 11/11/2018 12:27 PM CDT Narrative [facility] ([facility]) - 11/15/2018 8:07 PM CDT Performed at: ??01 - [facility] ??[id number] Telephone Plant Power Operator: Onelia Barbosa MD, Phone: ??[phone] Performed at: ??02 - [facility] [address] ??[id number] Telephone Plant Power Operator: Onelia Barbosa MD, Phone: ??[phone] Specimen Comment: Source.............Endocervix Specimen Comment: LMP / Prev Treat...[place] / BX Specimen Comment: Other.............. Specimen Comment: No. of containers..01 ThinPrep Vial Helen Zurita STRIPPER PRELIMINARY-INTERNET E COMMERCE SPECIALIST LAB - PATHOLOG Y/CYTOLOGY ORDERABLES [facility] ([facility]) [address] [place] [address] * HEPATITIS C ANTIBODY (11/11/2018 12:07 PM CDT) HCV Antibody Screen Non Reactive Non Reactive 11/11/2018 1:55 PM CDT [facility] HCV S/C Ratio 0.19 0.00 - 0.79 11/11/2018 1:55 PM CDT [facility] Comment: [place]-mw-fausix ratio (S/CO) <0.80:?? Non Reactive Blood BLOOD SPECIMEN / Unknown Venipuncture / Unknown 11/11/2018 12:07 PM CDT 11/11/2018 12:56 PM CDT [facility] - 11/11/2018 1:55 PM CDT Non Reactive - Antibodies to Hepatitis C virus (HCV) were not detected, result does not exclude early acute HCV infection. Helenmanpreet Ballardbrock STRIPPER PRELIMINARY-INTERNET E COMMERCE SPECIALIST LAB - CHEMISTR Y ORDERABLES [facility] [address] [place] [address] from Last 3 Months or Most Recently [...] 11:00 AM 03/17/2019 7:31 PM Care Teams Juvenile Correctional Officer Relationship Specialty Start Date End Date Mario Logan MD [address] [place] [address] PCP - General 05/24/19
--- OUTSIDE RECORDS SUMMARY | 2024-03-29 19:20 | XMS_ITS | Referral Summary ---
Author Organization [facility] Address [address] [place] [address] Care Team Providers Care Nuclear Unit Operator Name Role Phone Christofer Stewart MD [...] 1.7 cm about 1.[address] [facility] - obtain US of thyroid, labs [...] on file Legal Sex Female 11:53 AM WARP TESTER Gender Identity Not on file Sexual Orientation [...] Plan of Treatment Not on file Insurance [facility] [place] [id number] [facility] Advance Directives For more information, please contact: [phone] * Full Code (Latest Code Status on File) Date Activated Date Inactivated Comments 10/20/2023 12:17 PM 10/20/2023 8:58 PM Care Teams Nuclear Unit Operator Relationship Specialty Start Date End Date Christfoer Stewart MD [address] [facility] [address] ESTRELLA A [address] [address] PCP - General Family Medicine 06/23/23
[2024-03-29 20:03] LABS: Basophils Absolute Auto 0.05 K/mm3 (0.00-0.10); Basophils Percent Auto 0.5 % (0.0-1.0); Eosinophils Absolute Auto 0.09 K/mm3 (0.02-0.50); Eosinophils Percent Auto 0.9 % (1.0-6.0); Hematocrit 39.7 % (35.0-49.0); Hemoglobin 12.8 g/dL (12.0-15.0); Immature Granulocyte Absolute 0.04 K/mm3 (0.00-0.00); Immature Granulocyte Percent A 0.4 % (0.0-0.0); Lymphocytes Absolute Auto 2.34 K/mm3 (1.10-4.50); Lymphocytes Percent Auto 22.2 % (18.0-42.0); Mean Corpuscular HGB Conc 32.2 g/dL (32-36); Mean Corpuscular Hemoglobin 29.7 pg (27.0-31.0); Mean Corpuscular Volume 92.1 fL (78.0-102.0); Mean Platelet Volume 8.8 fl (9.2-11.8); Monocytes Percent Auto 6.6 % (2.0-11.0); Neutrophils Absolute Auto 7.34 K/mm3 (1.70-7.20); Neutrophils Percent Auto 69.4 % (50.0-70.0); Platelet Count Result 360 K/mm3 (150-420); Red Blood Count 4.31 M/mm3 (4.20-5.40); Red Cell Distribution Width 12.4 % (11.6-14.4); White Blood Count 10.6 K/mm3 (4.8-10.8)
[2024-03-29 20:06] LABS: Pregnancy On Board Control Positive; Urine Pregnancy Test Negative
--- NOTE | 2024-03-29 20:21 | PC.NURSE ---
PATIENT IS RESTING QUIETLY ON STRETCHER. AWAITING LAB AND RADIOLOGY RESULTS. DENIES ANY NEEDS AT THIS TIME
[2024-03-29 20:26] LABS: Alanine Aminotransferase 28 U/L (14-59); Albumin Level 3.6 g/dL (3.4-5.0); Alkaline Phosphatase 80 U/L (46-116); Anion Gap 7 mmol/L (4-12); Aspartate Amino Transferase 18 U/L (15-37); Bilirubin,Total 0.2 mg/dL (0.00-1.00); Blood Urea Nitrogen 18 mg/dL (7-18); Calcium 8.9 mg/dL (8.5-10.1); Carbon Dioxide 28 mmol/L (21-32); Chloride 105 mmol/L (98-108); Estimated CRCL calculation 49 ml/min; Estimated Glomerular Filt Rate > 60; Glucose 98 mg/dL (70-99); Osmolality Calculated 291 mOsm/kg (285-295); Potassium 4.2 mmol/L (3.5-5.1); Sodium 140 mmol/L (136-145); Total Protein 6.8 g/dL (6.4-8.2)
[2024-03-29 20:27] LABS: Lipase 88 U/L (16-77)
--- NOTE | 2024-03-29 21:06 | PC.NURSE ---
PATIENT RESTING ON STRETCHER. DENIES ANY NEEDS. READY TO GO HOME. ER PROVIDER UPDATED
[2024-03-29] MEDS: AZITHROMYCIN 250 MG TABLET 1000 MG PO (21:45)
[2024-03-29] MEDS: cefTRIAXone 500 MG, LIDOCAINE 1% LOCAL INJ 1 ML IM (21:45)
--- NOTE | 2024-03-29 21:51 | PC.NURSE ---
MEDICATED PER MAR. PATIENT WALKING AROUND THE ROOM. WILL STANDY BY IN ROOM WHEN DR SAVAGE DOES RECTAL EXAM.
--- NOTE | 2024-03-29 22:01 | PC.NURSE ---
THIS RN CATTLE DEHORNER WHILE DR SAVAGE EXAMINES PATIENT RECTUM
[2024-03-29 22:11] VITALS: BP 142/80; PULSE 87; RESP 18; O2SAT 96
[2024-04-01 08:40] LABS: Chlamydia trachomatis NOT DETECTED (NOT DETECTE); Neisseria gonorrhoeae PCR NOT DETECTED (NOT DETECTE)
== END 2024-03-29 22:11 | disposition home or self-care (01) ==
PROVIDERS: Emergency Provider Emergency Medicine; PCP Family Medicine
DX: K64.4 Residual hemorrhoidal skin tags (principal); N89.8 Other specified noninflammatory disorders of vagina; K59.00 Constipation, unspecified; F17.210 Nicotine dependence, cigarettes, uncomplicated
CPT/HCPCS: 36415; 74176; 80053; 81003; 81025; 83690; 85025; 87491; 87591; 96372; 99284; A9270; J0696; J2003

== ENCOUNTER 2024-05-06 13:00 | Emergency (ER) | payer OTHER, SELFPAY ==
[2024-05-06] VITALS (10 sets, daily range): BP systolic 95–128; BP diastolic 63–93; PULSE 65–99; RESP 16–20; TEMP 36.6–37.1; O2SAT 97–99
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
--- OUTSIDE RECORDS SUMMARY | 2024-05-06 13:05 | XMS_ITS | Patient Health Summary ---
Author Organization [facility] Address [address] [place] [address] Care Team Providers Care Margin Analyst Name Role Phone Mario Logan MD Primary Care Provider Note from [facility],non-owned Affiliates and Associated Physician Practices is amultiple site organization consisting of ambulatory clinics and hospital sitesin [place], [place], [place] and [place]. This disclosure is being madepursuant to the Care Everywhere program and may not contain all information available regarding this patient. Last updated 17.[facility] Allergies * Codeine(Anaphylaxis) -High Criticality * Naproxen(GI Discomfort) * Penicillins(Urticaria,Swelling) -High Criticality * Ketorolac(Other) Medications * Be aware that medications may not be up to date on this document. Alwaysverify current medications with the patient. * methadone (DOLOPHINE) 10 MG tablet Take 270 mg by mouth once daily * naloxone HCl (NARCAN) 4 MG/0.1ML nasal spray(Started 11/11/2018) [place] 1 spray into the nose as needed [...] 70 05/16/2019 2:05 PM CDT Temperature 36.8 C (98.3 F) 05/25/2019 5:10 PM CDT Respiratory Rate 19 05/25/2019 5:10 PM CDT [...] for Methadone maintenance treatment complicating , antepartum ([facility]), Supervisionof high risk , antepartum ([facility]) * CBC W AUTO DIFFERENTIAL(Performed 05/13/2019) * BLOOD GASES CORD GENIA(Performed 05/12/2019) * PATHOLOGY TISSUE EXAM (STL)(Performed 05/12/2019) Performed for delivery delivered ([facility]) * NEURAXIAL BLOCK(Performed 05/12/2019) * SECTION (EMERGENCY)(Performed 05/12/2019) * URINE DRUG SCREEN IMMUNOASSAY(Performed 05/12/2019) Performed for Methadone maintenance treatment complicating , antepartum ([facility]) * PREPARE RBC LEUKOREDUCED UNIT(Performed 05/12/2019) * TYPE + SCREEN PANEL(Performed 05/12/2019) Performed for Non-reactive NST (non-stress test) * CBC W AUTO DIFFERENTIAL(Performed 05/12/2019) Performed for Non-reactive NST (non-stress test) * GLUCOSE PROTEIN KETONE URINE - POINT OF CAR(Performed 05/12/2019) Performed for Supervision of high risk in second trimester ([facility]), Methadone maintenance treatment complicating , antepartum ([facility]) * URINE DRUG SCREEN IMMUNOASSAY(Performed 05/12/2019) Performed for Evaluate anatomy not seen on prior sonogram, Antepartum multigravida of advanced maternal age ([facility]) * GLUCOSE PROTEIN KETONE URINE - POINT OF CAR(Performed 05/11/2019) Performed for Supervision of high risk in second trimester ([facility]) * SONOGRAM - COMPLETE(Performed 05/11/2019) * URINE DRUG SCREEN IMMUNOASSAY(Performed 05/11/2019) Performed for Supervision of high risk in second trimester ([facility]) * COMPREHENSIVE METABOLIC PANEL(Performed 05/05/2019) Performed for RUQ pain * CBC W AUTO DIFFERENTIAL(Performed 05/05/2019) Performed for Anemia during ([facility]) * CULTURE STREP B(Performed 05/05/2019) Performed for Supervision of high risk in third trimester ([facility]) * URINE DRUG SCREEN IMMUNOASSAY(Performed 05/05/2019) Performed for Methadone maintenance treatment complicating , antepartum ([facility]) * GLUCOSE PROTEIN KETONE URINE - POINT OF CAR(Performed 05/05/2019) Performed for Supervision of high risk in third trimester ([facility]) * SONOGRAM - COMPLETE(Performed 04/21/2019) * GLUCOSE PROTEIN KETONE URINE - POINT OF CAR(Performed 04/21/2019) Performed for Supervision of high risk in third trimester ([facility]), Methadone maintenance treatment complicating , antepartum ([facility]) * URINE DRUG SCREEN IMMUNOASSAY(Performed 04/21/2019) Performed for Evaluate anatomy not seen on prior sonogram, Antepartum multigravida of advanced maternal age ([facility]) * URINE MICROSCOPIC ONLY REFLEX TO CULTURE(Performed 04/17/2019) Performed for Methadone maintenance treatment complicating , antepartum ([facility]) * URINALYSIS REFLEX MICROSCOPIC REFLEX CULTURE(Performed 04/17/2019) Performed for Methadone maintenance treatment complicating , antepartum ([facility]) * CULTURE URINE(Performed 04/17/2019) Performed for Methadone maintenance treatment complicating , antepartum ([facility]) * IMAGING/RADIOLOGY/XRAY RESULTS ORDER(Performed 04/07/2019) * GLUCOSE PROTEIN KETONE URINE - POINT OF CAR(Performed 04/07/2019) Performed for Supervision of high risk in third trimester ([facility]), Methadone maintenance treatment complicating , antepartum ([facility]) * URINE DRUG SCREEN IMMUNOASSAY(Performed 04/07/2019) Performed for Evaluate anatomy not seen on prior sonogram, Multigravida of advanced maternal age infirst trimester ([facility]) * IMAGING/RADIOLOGY/XRAY RESULTS ORDER(Performed 04/07/2019) * AMB CONSULT TO CARDIOLOGY(Performed 04/01/2019) Performed for Abnormal EKG, Dizziness * NONSTRESS TEST(Performed 03/29/2019) Performed for Nausea and vomiting during ([facility]) * URINE DRUG SCREEN IMMUNOASSAY(Performed 03/29/2019) Performed for Nausea and vomiting during ([facility]), Supervision of high risk in third trimester ([facility]), Methadone maintenance treatment complicating , antepartum ([facility]) * SONOGRAM - COMPLETE(Performed 03/24/2019) * GLUCOSE PROTEIN KETONE URINE - POINT OF CAR(Performed 03/24/2019) Performed for Methadone maintenance treatment complicating , antepartum ([facility]) * URINE DRUG SCREEN IMMUNOASSAY(Performed 03/24/2019) Performed for Evaluate anatomy not seen on prior sonogram, Antepartum multigravida of advanced maternal age ([facility]) * NONSTRESS TEST(Performed 03/17/2019) Performed for Uterine contractions during ([facility]) * RESPIRATORY PATHOGEN PANEL BY PCR(Performed 03/17/2019) Performed for Nausea and vomiting during ([facility]), Shortness of breath * CT ANGIO CHEST PULM EMBOLISM(Performed 03/17/2019) Performed for Shortness of breath * EKG 12-LEAD(Performed 03/17/2019) Performed for Nausea and vomiting during ([facility]) * ECHOCARDIOGRAM 2D WITH DOPPLER(Performed 03/17/2019) Performed for Shortness of breath * XR CHEST 1VW PORTABLE(Performed 03/17/2019) Performed for Nausea and vomiting during ([facility]) * T4 FREE(Performed 03/17/2019) Performed for Nausea and vomiting during ([facility]) * B-TYPE NATRIURETIC PEPTIDE(Performed 03/17/2019) Performed for Nausea and vomiting during ([facility]) * URINE MICROSCOPIC ONLY REFLEX TO CULTURE(Performed 03/17/2019) Performed for Nausea and vomiting during ([facility]) * URINALYSIS REFLEX MICROSCOPIC REFLEX CULTURE(Performed 03/17/2019) Performed for Nausea and vomiting during ([facility]) * CK BLOOD(Performed 03/17/2019) Performed for Nausea and vomiting during ([facility]) * TROPONIN I(Performed 03/17/2019) Performed for Nausea and vomiting during ([facility]) * PHOSPHORUS BLOOD(Performed 03/17/2019) Performed for Nausea and vomiting during ([facility]) * MAGNESIUM BLOOD(Performed 03/17/2019) Performed for Nausea and vomiting during ([facility]) * TSH(Performed 03/17/2019) Performed for Nausea and vomiting during ([facility]) * COMPREHENSIVE METABOLIC PANEL(Performed 03/17/2019) Performed for Nausea and vomiting during ([facility]) * CBC W AUTO DIFFERENTIAL(Performed 03/17/2019) Performed for Nausea and vomiting during ([facility]) * CULTURE URINE(Performed 03/17/2019) Performed for Nausea and vomiting during ([facility]) * GLUCOSE PROTEIN KETONE URINE - POINT OF CAR(Performed 03/17/2019) Performed for Supervision of high risk in third trimester ([facility]), Methadone maintenance treatment complicating , antepartum ([facility]) * URINE DRUG SCREEN IMMUNOASSAY(Performed 03/17/2019) Performed for Evaluate anatomy not seen on prior sonogram, Antepartum multigravida of advanced maternal age ([facility]) * NONSTRESS TEST(Performed 03/10/2019) Performed for Dizziness, Nausea and vomiting during ([facility]), Supervision of high risk in second trimester ([facility]) * IRON + TRANSFERRIN PANEL(Performed 03/10/2019) Performed for Anemia during in third trimester ([facility]) * FERRITIN(Performed 03/10/2019) Performed for Anemia during in third trimester ([facility]) * COMPREHENSIVE METABOLIC PANEL(Performed 03/10/2019) Performed for Supervision of high risk in second trimester ([facility]) * GLUCOSE CHALLENGE(Performed 03/10/2019) Performed for Supervision of high risk in second trimester ([facility]) * HIV-1 HIV-2 ANTIBODY + HIV P24 AG PANEL(Performed 03/10/2019) Performed for Supervision of high risk in second trimester ([facility]) * SYPHILIS ANTIBODY CASCADING REFLEX(Performed 03/10/2019) Performed for Supervision of high risk in second trimester ([facility]) * CBC W AUTO DIFFERENTIAL(Performed 03/10/2019) Performed for Supervision of high risk in second trimester ([facility]) * URINE MICROSCOPIC ONLY REFLEX TO CULTURE(Performed 03/10/2019) Performed for Flank pain * URINALYSIS REFLEX MICROSCOPIC REFLEX CULTURE(Performed 03/10/2019) Performed for Flank pain * CULTURE STREP GROUP A(Performed 03/10/2019) Performed for Supervision of high risk in second trimester ([facility]), Sore throat * CULTURE URINE(Performed 03/10/2019) Performed for Flank pain * STREP A SCREEN DIRECT W RFLX STREP A CULTURE(Performed 03/10/2019) Performed for Supervision of high risk in second trimester ([facility]), Sore throat * SONOGRAM - TRANSVAGINAL(Performed 03/10/2019) * GLUCOSE PROTEIN KETONE URINE - POINT OF CAR(Performed 03/10/2019) Performed for Supervision of high risk in second trimester ([facility]) * URINE DRUG SCREEN IMMUNOASSAY(Performed 03/10/2019) Performed for Evaluate anatomy not seen on prior sonogram, Antepartum multigravida of advanced maternal age ([facility]) * EKG 12-LEAD(Performed 03/10/2019) Performed for Supervision of high risk , antepartum ([facility]), Methadone maintenance treatmentcomplicating , antepartum ([facility]) * URINE MICROSCOPIC ONLY REFLEX TO CULTURE(Performed 03/06/2019) Performed for Vaginal discharge during , antepartum ([facility]) * URINALYSIS REFLEX MICROSCOPIC REFLEX CULTURE(Performed 03/06/2019) Performed for Vaginal discharge during , antepartum ([facility]) * URINE DRUG SCREEN IMMUNOASSAY(Performed 03/06/2019) Performed for Methadone maintenance treatment complicating , antepartum ([facility]), Supervisionof high risk in second trimester ([facility]) * CULTURE URINE(Performed 03/06/2019) Performed for Vaginal discharge during , antepartum ([facility]) * KETONES URINE - POINT OF CARE(Performed 03/06/2019) * URINE MICROSCOPIC ONLY REFLEX TO CULTURE(Performed 02/26/2019) Performed for Uterine contractions during ([facility]) * URINALYSIS REFLEX MICROSCOPIC REFLEX CULTURE(Performed 02/26/2019) Performed for Uterine contractions during ([facility]) * CULTURE URINE(Performed 02/26/2019) Performed for Uterine contractions during ([facility]) * CHLAMYDIA + GC AMPLIFIED PROBE(Performed 02/26/2019) Performed for Uterine contractions during ([facility]) * TRICHOMONAS RAPID TEST(Performed 02/26/2019) Performed for Uterine contractions during ([facility]) * SONOGRAM - COMPLETE(Performed 02/24/2019) * GLUCOSE PROTEIN KETONE URINE - POINT OF CAR(Performed 02/24/2019) Performed for Supervision of high risk in second trimester ([facility]) * URINE DRUG SCREEN IMMUNOASSAY(Performed 02/24/2019) Performed for Supervision of high risk in second trimester ([facility]) * SONOGRAM - TRANSVAGINAL(Performed 01/27/2019) * GLUCOSE PROTEIN KETONE URINE - POINT OF CAR(Performed 01/27/2019) Performed for Supervision of high risk in second trimester ([facility]), Methadone maintenance treatment complicating , antepartum ([facility]) * URINE DRUG SCREEN IMMUNOASSAY(Performed 01/27/2019) Performed for Supervision of high risk in second trimester ([facility]), Methadone maintenance treatment complicating , antepartum ([facility]) * SONOGRAM - COMPLETE(Performed 01/06/2019) * GLUCOSE PROTEIN KETONE URINE - POINT OF CAR(Performed 01/06/2019) Performed for Supervision of high risk in second trimester ([facility]), Methadone maintenance treatment complicating , antepartum ([facility]) * URINE DRUG SCREEN IMMUNOASSAY(Performed 01/06/2019) Performed for Supervision of high risk in second trimester ([facility]), Methadone maintenance treatment complicating , antepartum ([facility]) * TRICHOMONAS VAGINALIS AMPLIFIED PROBE(Performed 12/30/2018) Performed for Supervision of high risk in second trimester ([facility]), Abdominal cramping affecting ([facility]) * CHLAMYDIA + GC AMPLIFIED PROBE(Performed 12/30/2018) Performed for Abdominal cramping affecting ([facility]), Supervision of high risk in second trimester ([facility]) * BACTERIAL VAGINOSIS + YEAST SMEAR(Performed 12/30/2018) Performed for Abdominal cramping affecting ([facility]), Supervision of high risk in second trimester ([facility]) * FENTANYL URINE(Performed 12/30/2018) Performed for Supervision of high risk in second trimester ([facility]), Methadone maintenance treatment complicating , antepartum ([facility]), Obesity affecting in second trimester ([facility]) * URINE MICROSCOPIC ONLY(Performed 12/30/2018) Performed for Supervision of high risk in second trimester ([facility]), Abdominal cramping affecting ([facility]) * URINALYSIS REFLEX TO MICROSCOPIC NO CULTURE(Performed 12/30/2018) Performed for Supervision of high risk in second trimester ([facility]), Abdominal cramping affecting ([facility]) * CULTURE URINE(Performed 12/30/2018) Performed for Supervision of high risk in second trimester ([facility]), Abdominal cramping affecting ([facility]) * SONOGRAM - TRANSVAGINAL(Performed 12/30/2018) * GLUCOSE PROTEIN KETONE URINE - POINT OF CAR(Performed 12/30/2018) Performed for Supervision of high risk in second trimester ([facility]) * URINE DRUG SCREEN IMMUNOASSAY(Performed 12/30/2018) Performed for Antepartum multigravida of advanced maternal age ([facility]) * URINE MICROSCOPIC ONLY REFLEX TO CULTURE(Performed 12/09/2018) Performed for Cramping affecting , antepartum ([facility]) * FENTANYL URINE(Performed 12/09/2018) Performed for Methadone maintenance treatment complicating , antepartum ([facility]) * URINALYSIS REFLEX MICROSCOPIC REFLEX CULTURE(Performed 12/09/2018) Performed for Cramping affecting , antepartum ([facility]) * CULTURE URINE(Performed 12/09/2018) Performed for Cramping affecting , antepartum ([facility]) * SONOGRAM - COMPLETE(Performed 12/09/2018) * GLUCOSE PROTEIN KETONE URINE - POINT OF CAR(Performed 12/09/2018) Performed for Supervision of high risk in second trimester ([facility]) * URINE DRUG SCREEN IMMUNOASSAY(Performed 12/09/2018) Performed for Antepartum multigravida of advanced maternal age ([facility]) * CHLAMYDIA + GC AMPLIFIED PROBE(Performed 11/11/2018) Performed for Supervision of high risk , antepartum ([facility]) * PAP LB HPV HR DNA(Performed 11/11/2018) Performed for Cervical cancer screening * TRICHOMONAS RAPID TEST(Performed 11/11/2018) Performed for Supervision of high risk , antepartum ([facility]) * TYPE + SCREEN PANEL(Performed 11/11/2018) Performed for Supervision of high risk , antepartum ([facility]) * HEMOGLOBIN A1C(Performed 11/11/2018) Performed for Supervision of high-risk of elderly multigravida (HCC), History of diet controlled gestational diabetes mellitus (GDM), Obesity (BMI 30-39.9) * RUBELLA ANTIBODY IGG(Performed 11/11/2018) Performed for Supervision of high risk , antepartum ([facility]) * SYPHILIS ANTIBODY CASCADING REFLEX(Performed 11/11/2018) Performed for Supervision of high risk , antepartum ([facility]) * HEPATITIS B SURFACE ANTIGEN W RFLX CONFIRMATION(Performed 11/11/2018) Performed for Supervision of high risk , antepartum ([facility]) * CBC W AUTO DIFFERENTIAL(Performed 11/11/2018) Performed for Supervision of high risk , antepartum ([facility]) * FERRITIN(Performed 11/11/2018) Performed for Supervision of high risk , antepartum ([facility]) * HEPATITIS C ANTIBODY(Performed 11/11/2018) Performed for Supervision of high risk , antepartum ([facility]) * HEPATITIS B SURFACE ANTIGEN W RFLX CONFIRMATION(Performed 11/11/2018) Performed for Supervision of high risk , antepartum ([facility]) * CYSTIC FIBROSIS MUTATION PANEL(Performed 11/11/2018) Performed for Supervision of high risk , antepartum ([facility]) * COMPREHENSIVE METABOLIC PANEL(Performed 11/11/2018) Performed for Supervision of high risk , antepartum ([facility]) * HEMOGLOBIN ELECTROPHORESIS(Performed 11/11/2018) Performed for Supervision of high risk , antepartum ([facility]) * HIV-1 HIV-2 ANTIBODY + HIV P24 AG PANEL(Performed 11/11/2018) Performed for Supervision of high risk , antepartum ([facility]) * GLUCOSE CHALLENGE(Performed 11/11/2018) Performed for Supervision of high-risk of elderly multigravida ([facility]), History of diet controlled gestational diabetes mellitus (GDM) * URINE MICROSCOPIC ONLY(Performed 11/11/2018) Performed for Supervision of high risk , antepartum ([facility]) * URINALYSIS REFLEX TO MICROSCOPIC NO CULTURE(Performed 11/11/2018) Performed for Supervision of high risk , antepartum ([facility]) * SONOGRAM - COMPLETE(Performed 11/11/2018) * GLUCOSE [...] - 10.7 x10E9/L 05/25/2019 4:05 PM CDT [facility] WBC Corrected 05/25/2019 4:05 PM CDT [facility] RBC 3.44(L) 3.80 - 5.20 x10E12/L 05/25/2019 4:05 PM CDT [facility] Hemoglobin 9.4(L) 12.0 - 15.6 gm/dL 05/25/2019 4:05 PM CDT [facility] Hematocrit 30.8(L) 35.9 - 45.5 % 05/25/2019 4:05 PM CDT [facility] MCV 89.5 80.7 - 98.3 fl 05/25/2019 4:05 PM CDT [facility] MCH 27.3 26.7 - 34.0 pg 05/25/2019 4:05 PM CDT [facility] MCHC 30.5(L) 30.8 - 35.9 gm/dL 05/25/2019 4:05 PM CDT [facility] Platelet Count 508(H) 153 - 416 x10E9/L 05/25/2019 4:05 PM CDT [facility] RDW-CV 14.6 12.1 - 14.9 % 05/25/2019 4:05 PM CDT [facility] MPV 9.5 9.4 - 12.9 fl 05/25/2019 4:05 PM CDT [facility] Neutrophils % 62.6 44.0 - 73.0 % 05/25/2019 4:05 PM CDT [facility] Lymphocytes % 26.2 20.0 - 43.0 % 05/25/2019 4:05 PM CDT [facility] Monocytes % 9.0 5.0 - 13.0 % 05/25/2019 4:05 PM CDT [facility] Eosinophils % 1.2 0.0 - 6.0 % 05/25/2019 4:05 PM CDT [facility] Basophils % 0.6 0.0 - 2.0 % 05/25/2019 4:05 PM CDT [facility] Immature Granulocytes 0.4 0 - 1 % 05/25/2019 4:05 PM CDT [facility] Neutrophil Absolute 5.22 2.01 - 7.14 x10E9/L 05/25/2019 4:05 PM CDT [facility] Lymphocytes Absolute 2.18 1.07 - 3.94 x10E9/L 05/25/2019 4:05 PM CDT [facility] Monocytes Absolute 0.75 0.26 - 1.07 x10E9/L 05/25/2019 4:05 PM CDT [facility] Eosinophils Absolute 0.10 0 - 0.47 x10E9/L 05/25/2019 4:05 PM CDT [facility] Basophils Absolute 0.05 0 - 0.08 x10E9/L 05/25/2019 4:05 PM CDT [facility] Immature Granulocytes Absolute 0.03 0.00 - 0.06 x10E9/L 05/25/2019 4:05 PM CDT [facility] nRBC Auto 0 /100 WBC 05/25/2019 4:05 PM CDT [facility] Blood BLOOD SPECIMEN / Unknown Venipuncture / Unknown 05/25/2019 3:47 PM CDT 05/25/2019 4:00 PM CDT Becky Saab MD LAB - HEMATOLOGY ORD ERABLES [facility] [address] [place], [place] [id number] * (ABNORMAL) COMPREHENSIVE METABOLIC PANEL (05/25/2019 3:47 PM CDT) Only the most recent of5 resultswithin the time period is included. Glucose 80 70 - 105 mg/dL 05/25/2019 4:21 PM CDT [facility] Sodium 139 136 - 145 mmol/L 05/25/2019 4:21 PM CDT [facility] Potassium 4.4 3.5 - 5.1 mmol/L 05/25/2019 4:21 PM CDT [facility] Chloride 103 98 - 107 mmol/L 05/25/2019 4:21 PM T [facility] CO2 30 23 - 31 mmol/L 05/25/2019 4:21 PM T [facility] Calcium 8.9 8.4 - 10.4 mg/dL 05/25/2019 4:21 PM T [facility] Anion Gap 6(L) 8 - 16 mmol/L 05/25/2019 4:21 PM T [facility] BUN 17 7 - 18.7 mg/dL 05/25/2019 4:21 PM T [facility] Creatinine 0.89 0.57 - 1.11 mg/dL 05/25/2019 4:21 PM [facility] Alkaline Phosphatase 295(H) 40 - 150 U/L 05/25/2019 4:21 PM [facility] ALT 62(H) 0 - 61 U/L 05/25/2019 4:21 PM T [facility] AST 27 5 - 34 U/L 05/25/2019 4:21 PM T [facility] Protein Total 7.0 6.4 - 8.3 gm/dL 05/25/2019 4:21 PM [facility] Albumin 3.4(L) 3.5 - 5.2 gm/dL 05/25/2019 4:21 PM [facility] Bilirubin Total 0.2 0.2 - 1.0 mg/dL 05/25/2019 4:21 PM [facility] eGFR by MDRD >60 >60 mL/min/1.7 3m2 05/25/2019 4:21 PM [facility] eGFR by MDRD >60 >60 mL/min/1.7 3m2 05/25/2019 4:21 PM [facility] Blood BLOOD SPECIMEN / Unknown Venipuncture / Unknown 05/25/2019 3:47 PM CDT 05/25/2019 4:00 PM CDT Becky Saab MD LAB - CHEMISTRY RM MOSS Performing Organization Address [facility]/ZIP Co de Phone Number [facility] [address] [place] [address] * IMAGING RADIOLOGY XRAY RESULTS ORDER (05/17/2019 [...] (Bezet) 416 ms [facility] MUSE Calculated P Concrete 35 degrees [facility] MUSE Calculated R Concrete 37 degrees [facility] MUSE Calculated T Concrete 35 degrees [facility] MUSE Interpretation EKG NORMAL SINUS RHYTHM POSSIBLE LEFT ATRIAL ENLARGEMENT BORDERLINE ECG WHEN COMPARED WITH ECG OF 17-MAR-2019 13:33, NO SIGNIFICANT CHANGE WAS FOUND Confirmed by Tanvir Loya ([id number]) on 05/13/2019 11:09:05 PM [facility] MUSE 05/13/2019 10:2 7 AM CDT 05/13/2019 11:09 PM CDT Daylin Toro MD ECG ORDERABLES [facility] MUSE * (ABNORMAL) BLOOD GASES CORD [...] Sample Site UMB 05/12/2019 4:05 PM CDT [facility] RESP THERAPY Sample Type Venous 05/12/2019 4:05 PM CDT [facility] RESP THERAPY Eating Disorder Psychologist ID [id number] 05/12/2019 4:05 PM CDT [facility] RESP THERAPY Blood CORD BLOOD SPECIMEN / Unknown 05/12/2019 3:55 PM CDT 05/12/2019 3:55 PM CDT Vinod Dent MD LAB - BLOOD GASES OR DERABLES [facility] RESP THERAPY [address] [place] [address] * GROSS + MICRO EXAM (STL) (05/12/2019 3:53 PM CDT) Only the most recent of3 resultswithin the time period is included. Case Report Surgical Pathology Report Case: [id number] Authorizing Provider: Celestine Álvarez MD Collected: 05/12/2019 03:53 PM Ordering Location: [facility] 5 LDR Received: 05/13/2019 06:00 AM Pathologist: Brandin Chase MD Specimens: A) - Fallopian Tube B) - Fallopian Tube 05/16/2019 11:27 AM CDT [facility] Final Diagnosis Fallopian tube, right, tubal ligation: --Negative for significant histopathologic abnormalities Fallopian tube, left, tubal ligation: --Negative for significant histopathologic abnormalities 05/16/2019 11:27 AM CDT [facility] Clinical History The patient is a 39-year-old woman who underwent tubal ligation. 05/16/2019 11:27 AM [facility] Gross Description The requisition and specimen labels are identified with the patient's name, Jj Slater. Received in formalin specimen A, right fallopian tube , is a 1.8 cm in length x 0.8 cm in diameter segment of fallopian tube. The serosa is cowan-brown and smooth. The specimen is serially sectioned to show an unremarkable pinpoint lumen. [employer] sections are submitted in cassette A1. Received in formalin specimen B, left fallopian tube , is a 1.5 cm in length x 0.6 cm in diameter segment of fallopian tube. The serosa is cowan-brown and smooth. The specimen is serially sectioned to show an unremarkable pinpoint lumen. The specimen is entirely submitted in cassette B1. MIKKI/pasha 05/16/2019 11:27 AM [facility] Microscopic Description Complete cross sections of both fallopian tubes are identified. 05/16/2019 11:27 AM [facility] Disclaimer All histochemical and/or immunohistochemical results are interpreted with controls that demonstrate appropriate staining reactions before reporting results. Note on use of immunocytochemistry reagents: This test was developed and its performance characteristic determined by [facility], Department of Laboratory Medicine. It has [...] be interpreted with caution. 05/16/2019 11:27 AM [facility] Embedded Images 05/16/2019 11:27 AM [facility] Pathology/Cytology FALLOPIAN TUBE PART / Unknown 05/12/2019 3:53 PM CDT 05/13/2019 6:00 AM CDT Miscellaneous samples (specimen) FALLOPIAN TUBE PART / Unknown 05/12/2019 3:59 PM CDT 05/13/2019 6:00 AM CDT Celestine Álvarez MD LAB - PATHOLOGY/CYTO LOGY ORDERABLES [facility] [address] [place] [address] * Neuraxial Block (05/12/2019 3:31 PM CDT) Narrative Ayan Reynaga APRN-CRNA - 05/12/2019 3:31 PM CDT Ayan Reynaga APRN-CRNA 05/12/2019 3:33 PM Neuraxial Block Note Pre-Procedure: Procedure Name: Neuraxial Block Patient Location: OB Indications: surgical anesthesia Pre-Anesthetic Checklist: Patient identified, IV Checked, Risks and benefits discussed, Surgical consent verified, Monitors and equipment, Site examined, Pre-op evaluation done, Time-out performed, Informed consent obtained, Questions answered/anesthesia questions answered and Allergies reviewed Anticoagulation/ Anti-thrombosis status confirmed? Yes Monitors: BP, continuous pluse ox, EKG and End tidal CO2 Patient Condition: awake Patient Sedated? No Procedure: Block Type: Spinal Prep: Betadine Sterile Field: mask, cap/hat, sterile established and sterile gloves Approach: midline Skin was localized? Yes Skin localized with: lidocaine (XYLOCAINE) 1 % injection, 1 mL Spinal Block: Needle Type: spinal needle Needle Gauge: 25 Placement Site: L4-5 Number of Attempts: 1 CSF: free flow, aspiration before injection Degree of difficulty: none Procedure Tolerance: tolerated well Sensory Level: T4 Position post procedure: left uterine displacement Vital Signs: Vital signs monitored and stable throughout. See anesthesia record for details., heart tones monitored and stable throughout. Staff: Anesthesia Provider: Ayan Reynaga APRN-CRNA - performed the procedure Yanira Tanner MD GENERAL ANESTH ESIA ORDERABLES * (ABNORMAL) DRUG SCREEN TOX URINE PANEL (05/12/2019 2:50 PM CDT) Only the most recent of21 resultswithin the time period is included. Amphetamines Screen Urine Not detected Not detected 05/12/2019 3:15 PM CDT [facility] Barbiturates Screen Urine Not detected Not detected 05/12/2019 3:15 PM CDT [facility] Benzodiazepines Screen Urine Not detected Not detected 05/12/2019 3:15 PM CDT [facility] Cannabinoids Screen Urine Not detected Not detected 05/12/2019 3:15 PM CDT [facility] Cocaine Screen Urine Not detected Not detected 05/12/2019 3:15 PM CDT [facility] Fentanyl Urine Not detected Not detected 05/12/2019 3:15 PM CDT [facility] Methadone Screen Urine Detected(A) Not detected 05/12/2019 3:15 PM CDT [facility] Opiate Screen Urine Not detected Not detected 05/12/2019 3:15 PM CDT [facility] Phencyclidine Screen Urine Not detected Not detected 05/12/2019 3:15 PM CDT [facility] Urine URINE / Unknown Collection / Unknown 05/12/2019 2:50 PM CDT 05/12/2019 2:52 PM CDT Narrative [facility] - 05/12/2019 3:15 PM CDT This drug screen is designed for MEDICAL purposes only. It is not to be used for legal purposes, including but not limited to worker's comp, police investigations, occupational issues, child custody, etc. Any positive result is only presumptive and must be confirmed with a separate confirmatory test ordered by the physician. Drug Screening Test Cutoff Values: AMPHETAMINES 1000 ng/mL BARBITURATES 200 ng/mL BENZODIAZEPINES 200 ng/mL CANNABINOIDS(THC) 50 ng/mL COCAINE 300 ng/mL FENTANYL 1 ng/mL METHADONE 300 ng/mL OPIATES 300 ng/mL PHENCYCLIDINE(PCP) 25 ng/mL Rain Loya MD LAB - URINE CHEMISTR Y ORDERABLES [facility] [address] [place] [address] * PREPARE (CROSSMATCH) RBC UNIT(S), 2 Units (05/12/2019 2:00 PM CDT) Pathologist [facility] [place] Product Code U3538O95 [facility] Unit Donor # [id number] [facility] ABO Donor Type A [facility] Rh Type Unit POS [facility] Unit Status Ret'd [facility] ABO Rh Type Unit APOS [facility] Donor Unit Expiration Date [id number] [facility] Blood Type Barcode 6200 [facility] Product Code [id number] [facility] Unit Donor # [id number] [facility] ABO Donor Type A [facility] Rh Type Unit POS [facility] Unit Status Ret'd [facility] ABO Rh Type Unit APOS [facility] Donor Unit Expiration Date [id number] [facility] Blood Type Barcode 6200 [facility] B[facility] Blood Bank BLOOD SPECIMEN / Unknown 05/12/2019 2:00 PM CDT Rain Loya MD LAB - BLOOD BANK ORD ERABLES Performing Organization Address City/[facility]/ZIP Co de Phone Number [facility] [address] [place] [address] * TYPE + SCREEN PANEL (05/12/2019 11:02 AM CDT) Only the most recent of5 resultswithin the time period is included. ABO A 05/12/2019 11:34 AM CDT [facility] Rh Type Positive 05/12/2019 11:34 AM CDT [facility] Comment:History checked. Antibody Screen Negative 05/12/2019 11:34 AM CDT [facility] Blood Bank BLOOD SPECIMEN / Unknown Venipuncture / Unknown 05/12/2019 11:02 AM CDT 05/12/2019 11:10 AM CDT Ellen Childs MD LAB - BLOOD BANK OR DERABLES [facility] BLOOD [facility] [address] [place] [address] * GLUCOSE PROTEIN KETONE URINE - POINT [...] 05/12/2019 8 :50 AM CDT Ivana Thomas ORE PUNCHER-AMMUNITION SUPERVISOR LAB - POINT OF CARE ORDERABLES [facility] POCT TESTING [address] [place] [address], [facility] [phone] * SONOGRAM - COMPLETE (05/11/2019 8:43 AM CDT) Only the most recent of9 resultswithin the time period is included. Anatomical Region Laterality Modality Other 05/11/2019 8:43 AM CDT Narrative 05/11/2019 10:35 AM CDT [facility] PHONE: FAX: Pat. Name: JJ SLATER Pat. No: [id number] Study Date: 05/11/2019 8:43am , Age: 14 1980, 39 Height: 61 in Weight: 175 lb LMP: Unknown GA by Base: 36w2d NEGRO: 06/06/2019 GA by US: 35w2d NEGRO: 06/13/2019 GA Selected: 36w2d (From [facility]) NEGRO: 06/06/2019 Referring MD: Kimberli Galloway MD Treatment Manager: Silvina Fair RDMS CPT4: 44943 BMI: 33.06 Hist/Ind: AMA, low-risk NIPT Opioid dependence, on methadone History of LEEP G5 & G7: Late (36 week) PTD x 2 G5: Macrosomia History of GDM Class I obesity MEASUREMENTS & AGE GROWTH EVALUATION Measurement GA Range Srce %for GA Ratios ----- ---- ------- BPD 8.4 cm 33w5d (19n2q-34g5w) Hadl BPD 4% FL/BPD 0.81 (0.71 - 0.87) HC 32.6 cm 37w0d (60i1h-70u6q) Hadl HC 35% FL/AC 0.21 (0.20 - 0.24) AC 32.9 cm 36w5d (52y5c-45c2g) Hadl AC 74% HC/AC 0.99 (0.92 - 1.11) FL 6.8 cm 35w0d (97x7m-49g3x) Hadl FL 15% CI 0.71 (0.70 - 0.86) HL 6.3 cm 36w3d (73l3n-63p8f) Eron HL 51% GA for sonogram 35w2d (76t0z-12a2d) Weight Estimate: based on (BPD,HC,AC,FL) Hadlock Weight: 2824 gm (2412-3236gm) Had : 6lbs, 3oz Normal: 2883 gm (2163-3604gm) Had Wt% 44% for 36w2d Heart Rate: 156 bpm Amniotic Fluid Index: 09.1cm (07.6-24.7) Q1: 4.1cm Q2: 2.0cm Q3: 1.6cm Q4: 1.3cm EVAL, PLACENTA Presentation: cephalic Placenta: posterior:fundal Heart Rate: 156 bpm Amniotic Fluid Volume: normal Anatomy!Normal!Abnormal!Suboptimal!Prev. Seen!Comments Cranium ! x ! ! ! ! Stomach ! x ! ! ! x ! Kidneys ! x ! ! ! x ! Bladder ! x ! ! ! x ! CLINICAL SUMMARY Study Number: 10 A single fetus is seen in cephalic presentation. The measurements today are consistent with appropriate interval growth. The NEGRO is based on a prior ultrasound examination (confirmed). The amniotic fluid volume is within normal limits. IMPRESSION: Single, live, intrauterine at 36w2d size is within normal limits Amniotic fluid volume: within normal limits No malformations seen within the limitations of ultrasound RECOMMEND: Ultrasound as clinically indicated Thank you for allowing us the opportunity to care for your patient Jaren Vázquez MD <Electronic Signature> 05/11/2019 10:35am Kimberli Galloway MD [facility] ORDERABLES * CULTURE STREP B (05/05/2019 10:21 AM CDT) Only the most recent of2 resultswithin the time period is included. Culture Strep B Negative for beta-hemolytic Streptococcus Group B KENNY 05/08/2019 8:43 AM CDT [facility] Microbiology MISCELLANEOUS SAMPLES / Unknown Collection / Unknown 05/05/2019 10:21 AM CDT 05/05/2019 10:35 AM CDT Ivana Thomas ORE PUNCHER-AMMUNITION SUPERVISOR LAB - MICROBIOL OGY ORDERABLES [facility] [address] [place] [phone] * (ABNORMAL) URINE MICROSCOPIC ONLY REFLEX TO CULTURE (04/17/2019 3:16 PM SHIP LINER) Only the most recent of6 resultswithin the time period is included. Reflex Status Culture to follow 04/17/2019 3:57 PM [facility] RBC UA 0-2 None Seen, 0-2, 3-5 # /hpf 04/17/2019 3:57 PM [facility] WBC UA 0-5 None Seen, 0-5 # /hpf 04/17/2019 3:57 PM [facility] Bacteria UA None Seen None Seen 04/17/2019 3:57 PM [facility] Squamous Epithelial Cells 6-10(A) None Seen, 0-2, 3-5 /hpf 04/17/2019 3:57 PM [facility] Mucus UA 4+ /LPF 04/17/2019 3:57 PM SHIP [facility]ER [facility] Urine URINE SPECIMEN OBTAINED BY CLEAN CATCH PROCEDURE / Unknown Collection / Unknown 04/17/2019 3:16 PM SHIP [facility]ER 04/17/2019 3:26 PM [facility] Narrative [facility] - 04/17/2019 3:57 PM [facility] Dory Guadarrama MD LAB - URINALYSIS ORD ERABLES [facility] [address] [place] [address] * (ABNORMAL) URINALYSIS REFLEX MICROSCOPIC REFLEX CULTURE (04/17/2019 3:16 PM SHIP LINER) Only the most recent of6 resultswithin the time period is included. Color UA Liseth(A) Straw, Yellow 04/17/2019 3:31 PM [facility] Clarity UA Slt Cloudy(A) Clear 04/17/2019 3:31 PM [facility] Glucose UA Negative Negative 04/17/2019 3:31 PM [facility] Bilirubin UA Negative Negative 04/17/2019 3:31 PM [facility] Ketone UA Trace(A) Negative 04/17/2019 3:31 PM SH[facility] Specific [place] UA 1.020 1.005 - 1.030 04/17/2019 3:31 PM SH[facility] Blood UA Negative Negative 04/17/2019 3:31 PM [facility] pH UA 7.0 5.0 - 8.0 pH 04/17/2019 3:31 PM [facility] Protein UA 1+(A) Negative 04/17/2019 3:31 PM [facility] Urobilinogen UA 2.0(A) Negative mg/dL 04/17/2019 3:31 PM [facility] Nitrite UA Negative Negative 04/17/2019 3:31 PM [facility] Leukocyte UA 1+(A) Negative 04/17/2019 3:31 PM [facility] Urine Microscopy Urine microscopy to follow 04/17/2019 3:31 PM [facility] Reflex Status Culture to follow 04/17/2019 3:31 PM [facility] Urine URINE SPECIMEN OBTAINED BY CLEAN CATCH PROCEDURE / Unknown Collection / Unknown 04/17/2019 3:16 PM SHIP LINER 04/17/2019 3:26 PM [facility] Narrative [facility] - 04/17/2019 3:31 PM [facility] Ascorbic Acid can cause false negative urine strip tests for blood, glucose, nitrite, and bilirubin. Dory Guadarrama MD LAB - URINALYSIS ORD ERABLES Performing Organization Address City/[facility]/ZIP Co de Phone Number [facility] [address] [place] [address] * CULTURE URINE (04/17/2019 3:16 PM SHIP LINER) Only the most recent of8 resultswithin the time period is included. Culture Urine 10,000-50,000 CFU/mL urogenital stefany KENNY 04/19/2019 6:52 AM SHIP LINER [facility] Urine URINE SPECIMEN OBTAINED BY CLEAN CATCH PROCEDURE / Unknown Collection / Unknown 04/17/2019 3:16 PM SHIP LINER 04/17/2019 3:26 PM SHIP [facility]ER Dory Guadarrama MD LAB - MICROBIOLOGY O RDERABLES [facility] [address] [place] [address], [facility] [phone] * CARDIOLOGY CONSULT (04/01/2019 5:08 PM SHIP LINER) Ivana Thomas ORE PUNCHER-AMMUNITION SUPERVISOR OUTPATIENT CONS ULT * NONSTRESS TEST (03/29/2019 5:31 PM SHIP LINER) Narrative Mone Malave MD - 03/29/2019 5:31 PM SHIP [facility]ER Radha Guadarrama MD 04/08/2019 10:47 PM Name: Jj Slater Date of : 1980 Today's Date: 03/29/2019 NST RESULTS ([facility]) OBJECTIVE FINDINGS Temp: 98.1 F (36.7 C), Pulse: 73, Resp: 18, BP: 103/68 NST Indication(s): labor Uterine Irritability: No Contractions: Irregular Frequency: rare Duration (sec) Range: 60-80 Perceived Intensity: Mild OBJECTIVE FINDINGS Movement: Present Monitoring Mode: External Baseline: 130 BPM Variability: Moderate Decelerations: None Accelerations: Yes OTHER INFORMATION Dorene Schwab RN Non-Stress Test (NST) Jj Slater [id number] 04/08/2019 10:46 PM Indications: nausea and vomiting Patient Active Problem List: Supervision of high-risk Methadone maintenance treatment complicating , antepartum H/O delivery, currently Bipolar disorder H/O gestational diabetes in prior , currently History of Abnormal Pap smear of cervix Hx LEEP (loop electrosurgical excision procedure), cervix, History of macrosomia in in prior , currently History of delivery, currently AMA (advanced maternal age) multigravida 35+ Obesity complicating Cystic fibrosis carrier History of Uterine rupture Evaluate anatomy not seen on prior sonogram Uterine contractions during Vaginal discharge during , antepartum Dizziness Nausea and vomiting during Anemia affecting in third trimester Interpretation: Baseline: 130 beats/minute reactive Variability: Moderate Contractions: none Decelerations: none Recs: Continue planned care Radha Guadarrama MD Evelyn Altman APRN-CNM OB [facility] ORDERABLE S * NONSTRESS TEST (03/17/2019 6:22 PM SHIP LINER) Narrative Kimberli Galloway MD - 03/17/2019 6:22 PM SHIP [facility]ER Michelle Mcdaniel MD 03/21/2019 8:08 AM Name: Jj Slater Date of : 1980 Today's Date: 03/17/2019 NST RESULTS ([facility]OS[facility]) OBJECTIVE FINDINGS , , , BP: 114/58 NST Indication(s): Other (Comment)(SOB) Uterine Irritability: No Contractions: Not present OBJECTIVE FINDINGS Movement: Present Monitoring Mode: External Baseline: 135 BPM Variability: Moderate Decelerations: None Accelerations: Yes OTHER INFORMATION 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 RN PGY1 [employer] Progress Note Indications: SOB Assessment/ Non-Stress Test Baseline: 125 beats/minute mod variability Reactive Contractions: none Decelerations: none Michelle Mcdaniel MD 03/21/2019 8:08 AM Dory Guadarrama MD OB [facility] ORDERABLES * RESPIRATORY PATHOGEN PANEL BY PCR (03/17/2019 5:07 PM SHIP [facility]ER) Adenovirus PCR Not detected Not detected, Invalid, Indeterminate 03/17/2019 9:47 PM [facility] Coronavirus PCR Not detected Not detected, Invalid, Indeterminate 03/17/2019 9:47 PM [facility] Human Metapneumovirus PCR Not detected Not detected, Invalid, Indeterminate 03/17/2019 9:47 PM [facility] Human Rhinovirus/Entero virus PCR Not detected Not detected, Invalid, Indeterminate 03/17/2019 9:47 PM [facility] Influenza A PCR Not detected Not detected, Equivocal, Invalid, Indeterminate 03/17/2019 9:47 PM [facility] Influenza B PCR Not detected Not detected, Invalid, Indeterminate 03/17/2019 9:47 PM [facility] Parainfluenza Virus 1 PCR Not detected Not detected, Invalid, Indeterminate 03/17/2019 9:47 PM [facility] Parainfluenza Virus 2 PCR Not detected Not detected, Invalid, Indeterminate 03/17/2019 9:47 PM [facility] Parainfluenza Virus 3 PCR Not detected Not detected, Invalid, Indeterminate 03/17/2019 9:47 PM [facility] Parainfluenza Virus 4 PCR Not detected Not detected, Invalid, Indeterminate 03/17/2019 9:47 PM [facility] Respiratory Syncytial Virus PCR Not detected Not detected, Invalid, Indeterminate 03/17/2019 9:47 PM [facility] Bordetella pertussis PCR Not detected Not detected, Invalid 03/17/2019 9:47 PM SHIP LINER [facility] Chlamydia pneumoniae PCR Not detected Not detected, Invalid, Indeterminate 03/17/2019 9:47 PM SH[facility]ER [facility] Mycoplasma pneumoniae PCR Not detected Not detected, Invalid, Indeterminate 03/17/2019 9:47 PM SHIP [facility]ER [facility] Microbiology SPECIMEN FROM NASOPHARYNGEAL STRUCTURE / Unknown Collection / Unknown 03/17/2019 5:07 PM SHIP [facility]ER 03/17/2019 5:15 PM SHIP [facility]ER Michelle Mcdaniel MD LAB - MICROBIOLOGY O RDERABLES [facility] [address] [place], [place] [address], [facility] [phone] * CT ANGIO CHEST PULM EMBOLISM (03/17/2019 4:10 PM SHIP LINER) Anatomical Region Laterality Modality Chest Computed Tomogra phy 03/17/2019 4:12 PM SHIP [facility]ER Impressions 03/17/2019 4:14 PM SHIP [facility]ER No evidence for pulmonary embolism. Dependent atelectasis. No focal infiltrates. Reading Radiologist: Pascual Chacon MD on 03/17/2019 at 4:14 PM Narrative 03/17/2019 4:[address] Chest Angiography with IV contrast INDICATION: [...] ECHOCARDIOGRAM 2D WITH DOPPLER (03/17/2019 12:36 PM SHIP LINER) 03/17/2019 12:3 6 PM SH[facility] Narrative [facility] - 03/17/2019 2:38 [place] [address] Transthoracic Echocardiogram 2D, M-mode, Doppler, and Color Doppler Patient: JJ SLATER MR number: [id number] Height: 61 in Weight: 201.5 lb BSA: 1.9 m Study date: 17-Mar-2019 : 1980 Age: 39 years Gender: Female Race: Allergies: CODEINE, PENICILLINS, NAPROXEN, KETOROLAC Treatment Manager: Justine Holder RDCS Referring Physician: Kinga Ngo MD Reading Physician: Deborah Thibodeaux DO Summary: - Clinical question: - Shortness of [...] Procedure Note Deborah Thibodeaux DO - 03/17/2019 [place] [address] Transthoracic Echocardiogram 2D, M-mode, Doppler, and Color Doppler Patient: JJ SLATER MR number: [id number] Height: 61 in Weight: 201.5 lb BSA: 1.9 m Study date: 17-Mar-2019 : 1980 Age: 39 years Gender: Female Race: Allergies: CODEINE, PENICILLINS, NAPROXEN, KETOROLAC Treatment Manager: Justine Holder LEELA Referring Physician: Kinga Ngo MD Reading Physician: Deborah Thibodeaux DO Summary: - Clinical question: - Shortness of [...] E/E': 10 Prepared and signed by Deborah Thibodeaux, Signed 17-Mar-2019 14:37:48 Kinga Ngo MD ECHO ORDERABLES Performing Organization Address City/State/[facility] Co de Phone Number [facility] [address] [place] [address] * XR CHEST 1VW PORTABLE (03/17/2019 12:25 PM SHIP LINER) Anatomical Region Laterality Modality Chest Radiographic Daniella ging 03/17/2019 1:23 PM SHIP LINER Impressions 03/17/2019 1:23 PM SHIP LINER Clear lungs. Reading Radiologist: Ted Schulte MD on 03/17/2019 at 1:23 PM Narrative 03/17/2019 1:23 PM SHIP [facility]ER Chest x-ray single view. HISTORY: Vomiting. Single [...] RDERABLES * TROPONIN I (03/17/2019 11:42 AM SHIP LINER) Troponin I <0.010 <0.038 ng/mL 03/17/2019 12:26 PM SHIP [facility] Blood BLOOD SPECIMEN / Unknown Venipuncture / Unknown 03/17/2019 11:42 AM SHIP LINER 03/17/2019 11:52 AM SHIP [facility]ER Michelle Mcdaniel MD LAB - CHEMISTRY RM MOSS Performing Organization Address [facility] Co de Phone Number [facility] [address] [place] [phone] * B-TYPE NATRIURETIC PEPTIDE (03/17/2019 11:42 AM SHIP LINER) BNP 22 <=100 pg/mL 03/17/2019 2:38 PM SHIP [facility] Blood BLOOD SPECIMEN / Unknown Venipuncture / Unknown 03/17/2019 11:42 AM SHIP LINER 03/17/2019 11:52 AM SHIP LINER Narrative [facility] - 03/17/2019 2:38 PM SHIP LINER A cutoff of 100 pg/mL has been demonstrated to provide the maximal combination of sensitivity, specificity, and negative predictive value for contributing to the diagnosis of congestive heart failure (CHF) only. A B-Type Natriuretic Peptide (BNP) value greater than or equal to 100 pg/mL is consistent with a diagnosis of CHF in the appropriate clinical setting. False positive results are more common in females greater than 75 years of age. Blood concentrations of natriuretic peptides may also be elevated in patients with myocardial infarction and in patients who are candidates for or are undergoing renal dialysis. Daylin Cardona MD LAB - CHEMISTRY OR YADI Performing Organization Address [facility] Co de Phone Number [facility] [address] [place] [phone] * PHOSPHORUS BLOOD (03/17/2019 11:42 AM SHIP LINER) Phosphorus 3.9 2.3 - 4.7 mg/dL 03/17/2019 12:21 PM SHIP LINER [facility] Blood BLOOD SPECIMEN / Unknown Venipuncture / Unknown 03/17/2019 11:42 AM SHIP LINER 03/17/2019 11:52 AM SHIP LINER Michelle Mcdaniel MD LAB - CHEMISTRY RM MOSS Performing Organization Address [facility] Co de Phone Number [facility] [address] [place] [phone] * MAGNESIUM BLOOD (03/17/2019 11:42 AM SHIP LINER) Magnesium 1.9 1.6 - 2.6 mg/dL 03/17/2019 12:21 PM SHIP LINER [facility] Blood BLOOD SPECIMEN / Unknown Venipuncture / Unknown 03/17/2019 11:42 AM SHIP LINER 03/17/2019 11:52 AM SHIP LINER Michelle Mcdaniel MD LAB - CHEMISTRY RM MOSS [facility] [address] [place] [address] * CK BLOOD (03/17/2019 11:42 AM SHIP LINER) Pathologist [facility] [place] CK 30 29 - 168 U/L 03/17/2019 12:21 PM SHIP LINER [facility] Blood BLOOD SPECIMEN / Unknown Venipuncture / Unknown 03/17/2019 11:42 AM SHIP LINER 03/17/2019 11:52 AM SHIP LINER Michelle Mcdaniel MD LAB - CHEMISTRY RM MOSS Performing Organization Address [facility]/ZIP Co de Phone Number [facility] [address] [place], [place] [phone] * (ABNORMAL) TSH (03/17/2019 11:42 AM SHIP LINER) Pathologist [facility] [place] TSH 5.2847(H) 0.35 - 4.94 uIU/mL 03/17/2019 1:11 PM SHIP LINER [facility] Blood BLOOD SPECIMEN / Unknown Venipuncture / Unknown 03/17/2019 11:42 AM SHIP LINER 03/17/2019 11:52 AM SHIP LINER Michelle Mcdaniel MD LAB - CHEMISTRY RM MOSS Performing Organization Address City/[facility]/ZIP Co de Phone Number [facility] [address] [place] [phone] * T4 FREE (03/17/2019 11:42 AM SHIP LINER) Pathologist [facility] [place] T4 Free 0.71 0.70 - 1.48 ng/dL 03/17/2019 2:52 PM SHIP LINER [facility] Blood BLOOD SPECIMEN / Unknown Venipuncture / Unknown 03/17/2019 11:42 AM SHIP LINER 03/17/2019 11:52 AM SHIP LINER Daylin Cardona MD LAB - CHEMISTRY OR DERABLES [facility] [address] [place] [address] * NONSTRESS TEST (03/10/2019 5:10 PM SHIP LINER) Evelyn Kat APRN-CNM - 03/10/2019 5:10 PM SHIP LINER Dipika Perez RN 03/10/2019 5:11 PM Name: Jj Slater Date of : 1980 Today's Date: 03/10/2019 NST RESULTS (GHOSH) OBJECTIVE FINDINGS Temp: 98.1 F (36.7 C), Pulse: 76, Resp: 18, BP: 109/62 NST Indication(s): Other (Comment)(dizzy) Uterine Irritability: No Contractions: Not present OBJECTIVE FINDINGS Movement: Present Monitoring Mode: External Baseline: 130 BPM Variability: Moderate Decelerations: None Accelerations: Yes OTHER INFORMATION Dipika Perez RN Evelyn Altman APRN-CNM OB GYNE ORDERABLE S * SYPHILIS ANTIBODY CASCADING REFLEX (03/10/2019 1:24 PM SHIP LINER) Only the most recent of2 resultswithin the time period is included. Treponema pallidum Antibody Non Reactive Non Reactive 03/10/2019 3:02 PM SHIP [facility] Comment: No Laboratory evidence of syphilis infection. Note: Circulating antibodies may be low or undetectable in early infection. If recent exposure is suspected, re-draw sample in 2-4 weeks and repeat testing. Blood BLOOD SPECIMEN / Unknown Venipuncture / Unknown 03/10/2019 1:24 PM SHIP LINER 03/10/2019 1:50 PM SHIP LINER Ivana Thomas APRN-AMMUNITION SUPERVISOR LAB - SEROLOGY ORDERABLES Performing Organization Address [facility] de Phone Number [facility] [address] [place] [address] * HIV-1 HIV-2 ANTIBODY + HIV P24 AG PANEL (03/10/2019 1:24 PM SHIP LINER) Only the most recent of3 resultswithin the time period is included. HIV1/2 Ab + P24 Ag Non Reactive Non Reactive 03/10/2019 2:57 PM SHIP LINER [facility] Blood BLOOD SPECIMEN / Unknown Venipuncture / Unknown 03/10/2019 1:24 PM SHIP LINER 03/10/2019 1:49 PM SHIP LINER Narrative [facility] - 03/10/2019 2:57 PM SHIP LINER No Laboratory evidence of HIV infection. Ivana Thomas [facility] LAB - CHEMISTRY ORDERABLES Performing Organization Address [facility] de Phone Number [facility] [address] [place] [address] * GLUCOSE CHALLENGE (03/10/2019 1:24 PM SHIP LINER) Only the most recent of2 resultswithin the time period is included. Pathologist [facility] [place] Glucose Challenge 104 64 - 140 mg/dL 03/10/2019 4:13 PM SHIP LINER [facility] Glucose Challenge Time 1324 03/10/2019 4:13 PM SHIP LINER [facility] Blood BLOOD SPECIMEN / Unknown Venipuncture / Unknown 03/10/2019 1:24 PM SHIP LINER 03/10/2019 1:49 PM SHIP LINER Ivana Thomas [facility] LAB - CHEMISTRY ORDERABLES Performing Organization Address [facility] de Phone Number [facility] [address] [place] [address] * (ABNORMAL) IRON + TRANSFERRIN PANEL (03/10/2019 1:24 PM SHIP LINER) Only the most recent of2 resultswithin the time period is included. Iron 48(L) 50 - 170 ug/dL 03/10/2019 5:02 PM SHIP LINER [facility] Transferrin 435(H) 180 - 382 mg/dL 03/10/2019 5:02 PM SHIP LINER [facility] TIBC Calculated 544(H) 240 - 450 ug/ml 03/10/2019 5:02 PM SHIP LINER [facility] Iron Saturation % 9(L) 20 - 50 % 03/10/2019 5:02 PM SHIP LINER [facility] Blood BLOOD SPECIMEN / Unknown Venipuncture / Unknown 03/10/2019 1:24 PM SHIP LINER 03/10/2019 1:49 PM SHIP LINER Palak Oreilly APRN-AMMUNITION SUPERVISOR LAB - TRAFFIC WORKER RY ORDERABLES Performing Organization Address [facility] de Phone Number [facility] [address] [place] [address] * FERRITIN (03/10/2019 1:24 PM SHIP LINER) Only the most recent of3 resultswithin the time period is included. Ferritin 6 5 - 204 ng/mL 03/10/2019 5:22 PM SHIP LINER [facility] Blood BLOOD SPECIMEN / Unknown Venipuncture / Unknown 03/10/2019 1:24 PM SHIP LINER 03/10/2019 1:49 PM SHIP LINER Palak Oreilly APRN-[facility] LAB - TRAFFIC WORKER RY ORDERABLES Performing Organization Address [facility] de Phone Number [facility] [address] [place], [place] [phone] * STREP A SCREEN DIRECT W RFLX STREP A CULTURE (03/10/2019 1:12 PM SHIP LINER) Strep A Rapid Negative Negative 03/10/2019 2:17 PM SHIP LINER [facility] Microbiology ENTIRE THROAT (SURFACE REGION OF NECK) / Unknown Collection / Unknown 03/10/2019 1:12 PM SHIP LINER 03/10/2019 1:52 PM SHIP LINER Narrative [facility] - 03/10/2019 2:17 PM SHIP LINER Test has reflexed to a Strep A culture. Ivana Thomas APRN-AMMUNITION SUPERVISOR LAB - MICROBIOL OGY ORDERABLES Performing Organization Address [facility] Co de Phone Number [facility] [address] [place] [address] * CULTURE STREP GROUP A (03/10/2019 1:12 PM SHIP LINER) Culture Negative for beta-hemolytic Streptococcus Group A KENNY 03/12/2019 7:47 AM SHIP LINER [facility] Microbiology ENTIRE THROAT (SURFACE REGION OF NECK) / Unknown Collection / Unknown 03/10/2019 1:12 PM SHIP LINER 03/10/2019 1:52 PM SHIP LINER Ivana Martha ORE PUNCHER-AMMUNITION SUPERVISOR LAB - MICROBIOL OGY ORDERABLES [facility] [address] [phone] * SONOGRAM - TRANSVAGINAL (03/10/2019 12:29 PM SHIP LINER) Only the most recent of3 resultswithin the time period is included. Anatomical Region Laterality Modality Other 03/10/2019 12:2 9 PM SHIP LINER Narrative 03/10/2019 3:24 PM SHIP LINER [facility] PHONE: FAX: Pat. Name: JJ SLATER Janelle Pat. No: [id number] Study Date: 03/10/2019 12:29pm , Age: 14 1980, 39 Height: 61 in Weight: 175 lb LMP: Unknown GA by Base: 27w3d NEGRO: 06/06/2019 GA Selected: 27w3d (From [facility]) NEGRO: 06/06/2019 Referring MD: Kimberli Galloway MD Treatment Manager: Silvina Fair RDMS CPT4: 01251,[id number] BMI: 33.06 Hist/Ind: Incomplete anatomic survey AMA, low-risk NIPT Opioid dependence, on methadone History of LEEP G5 & G7: Late (36 week) PTD x 2 G5: Macrosomia History of GDM Class I obesity Cervix: Length: 3.3 cm Approach: transvaginal Funneling: not present Heart Rate: 129 bpm Amniotic Fluid Index: 03.7cm (Deepest Pocket) EVAL, PLACENTA Presentation: cephalic Placenta: posterior Heart Rate: 129 bpm Amniotic Fluid Volume: normal CLINICAL SUMMARY Study Number: 7 A ghosh fetus is identified in cephalic presentation. The placenta is posterior. The amniotic fluid volume is within normal IMPRESSION: Single, live, IUP at 27w3d normal amniotic fluid volume Reassuring cervical length RECOMMEND: Follow up ultrasound in 2 weeks for growth Serial cervical length measurement is no longer needed Sent to [facility] for evaluation of persistent nausea and vomiting Thank you for allowing us the opportunity to care for your patient. Kimberli Galloway MD <Electronic Signature> 03/10/2019 03:24pm Kimberli Galloway MD [facility] ORDERABLES * KETONES URINE - POINT OF CARE (03/06/2019 1:07 PM SHIP LINER) Ketone UA neg Negative [facility] POCT TESTING QC Verified Yes Yes [facility] POC T TESTING Urine URINE / Unknown 03/06/2019 1 :07 PM SHIP LINER Becky Saab MD LAB - POINT OF CARE ORDERABLES Performing Organization Address [facility] Co de Phone Number [facility] POCT TESTING [address] [place] [address], [facility] [phone] * CHLAMYDIA + GC AMPLIFIED PROBE (STL) (02/26/2019 1:24 PM SHIP LINER) Only the most recent of2 resultswithin the time period is included. Chlamydia Amplified Probe Negative Negative 02/28/2019 1:54 PM SHIP LINER [facility] GC Amplified Probe Negative Negative 02/28/2019 1:54 PM SHIP LINER [facility] Microbiology ENTIRE ENDOCERVIX / Unknown Collection / Unknown 02/26/2019 1:24 PM SHIP LINER 02/26/2019 1:31 PM SHIP LINER Narrative [facility] - 02/28/2019 1:54 PM SHIP LINER Results based on detection/no detection of ribosomal RNA by amplified method. Dory Guadarrama MD LAB - MICROBIOLOGY O RDERABLES Performing Organization Address [facility] Co de Phone Number [facility] [address] [phone] * TRICHOMONAS RAPID TEST (02/26/2019 1:24 PM SHIP LINER) Only the most recent of2 resultswithin the time period is included. Trichomonas Rapid Test Negative Negative 02/26/2019 1:55 PM SHIP LINER [facility] Microbiology VAGINAL SWAB / Unknown Collection / Unknown 02/26/2019 1:24 PM SHIP LINER 02/26/2019 1:31 PM SHIP LINER Dory Guadarrama MD LAB - MICROBIOLOGY O RDERABLES Performing Organization Address [facility] Co de Phone Number [facility] [address] [place] [phone] * TRICHOMONAS VAGINALIS AMPLIFIED PROBE (12/30/2018 10:46 AM SHIP LINER) Trichomonas vaginalis Amplified Probe Negative Negative 12/31/2018 8:15 AM SHIP LINER [facility] Other URINE / Unknown Collection / Unknown 12/30/2018 10:46 AM SHIP LINER 12/30/2018 11:08 AM SHIP LINER Narrative [facility] - 12/31/2018 8:15 AM SHIP LINER This test was developed and its performance characteristics determined by the [facility], [facility]. Urine specimens tested by the [facility] have not been cleared or approved by the U.S. Food and Drug Administration (FDA). The laboratory is regulated under the Clinical Laboratory Improvement Amendments (CLIA) as qualified to perform high-complexity testing. This test is used for clinical purposes. It should not be regarded as investigational or for research. Results based on detection/no detection of ribosomal RNA by amplified method. Helen Zurita APRNFiNC LAB - MICROBIO LOGY ORDERABLES Performing Organization Address City/[facility]/ZIP Co de Phone Number [facility] [address] [place] [address], [facility] [phone] * BACTERIAL VAGINOSIS + YEAST SMEAR (12/30/2018 10:46 AM SHIP LINER) Clue Cells No Clue Cells Seen No Clue Cells Seen 12/31/2018 12:22 AM SHIP LINER [facility] Yeast No Yeast Seen No Yeast Seen 01/01/20 12:22 AM [facility] Steven Score Steven Score 0-3: Consistent with normal vaginal stefany Steven Score 0-3: Consistent with normal vaginal stefany 12/31/2018 12:22 AM SHIP LINER [facility] Microbiology ENTIRE VAGINA / Unknown Collection / Unknown 12/30/2018 10:46 AM SHIP LINER 12/30/2018 11:08 AM SHIP LINER [facility] LAB - MICROBIO LOGY ORDERABLES [facility] [address] [place] [address], [facility] [phone] * FENTANYL URINE (12/30/2018 9:39 AM SHIP LINER) Only the most recent of3 resultswithin the time period is included. Fentanyl Negative ng/mL 01/12/2019 11:09 AM [facility] ([facility]) Comment:REFERENCE RANGE: NOT ESTABLISHED Norfentanyl Negative ng/mL 01/12/2019 11:09 AM [facility] ([facility]) Comment:REFERENCE RANGE: NOT ESTABLISHED Sufentanil Negative ng/mL 01/12/2019 11:09 AM [facility] ([facility]) Comment:REFERENCE RANGE: NOT ESTABLISHED Alfentanil Negative ng/mL 01/12/2019 11:09 AM SHIP [facility]ER [facility] ([facility]) Comment:REFERENCE RANGE: NOT ESTABLISHED Norsufentanil Negative ng/mL 01/12/2019 11:09 AM [facility] ([facility]) Comment:REFERENCE RANGE: NOT ESTABLISHED Acetyl Fentanyl Negative NEGATIVE ng/mL 01/12/2019 11:09 AM SHIP [facility]ER [facility] ([facility]) Acetyl Norfentanyl Negative NEGATIVE ng/mL 01/12/2019 11:09 AM [facility] ([facility]) Comment: This test was developed and its performance characteristics determined by [facility]. It has not been cleared or approved by the Food and Drug Administration. Urine URINE / Unknown Collection / Unknown 12/30/2018 9:39 AM SHIP LINER 12/30/2018 11:06 AM SHIP LINER Narrative [facility] ([facility]) - 01/12/2019 11:09 AM SHIP LINER Performed at: [facility] [employer] [address] [id number] Student Services Advisor: Yue Hess [facility], Phone: [phone] Helen Zurita ORE PUNCHER-AMMUNITION SUPERVISOR LAB - URINE CH EMISTRY ORDERABLES [facility] ([facility]) [address] [place] [address] * (ABNORMAL) URINALYSIS REFLEX TO MICROSCOPIC NO CULTURE (12/30/2018 9:24 AM SHIP LINER) Only the most recent of2 resultswithin the time period is included. Color UA Liseth(A) Straw, Yellow 12/30/2018 10:05 AM [facility] Clarity UA Slt Cloudy(A) Clear 12/30/2018 10:05 AM [facility] Glucose UA Negative Negative 12/30/2018 10:05 AM [facility] Bilirubin UA Negative Negative 12/30/2018 10:05 AM [facility] Ketone UA Negative Negative 12/30/2018 10:05 AM [facility] Specific [place] UA 1.024 1.005 - 1.030 12/30/2018 10:05 AM [facility] Blood UA Negative Negative 12/30/2018 10:05 AM [facility] pH UA 6.0 5.0 - 8.0 pH 12/30/2018 10:05 AM [facility] Protein UA 1+(A) Negative 12/30/2018 10:05 AM [facility] Urobilinogen UA Negative Negative mg/dL 12/30/2018 10:05 AM [facility] Nitrite UA Negative Negative 12/30/2018 10:05 AM [facility] Leukocyte UA 1+(A) Negative 12/30/2018 10:05 AM [facility] Urine Microscopy Urine microscopy to follow 12/30/2018 10:05 AM [facility] Urine URINE SPECIMEN OBTAINED BY CLEAN CATCH PROCEDURE / Unknown Collection / Unknown 12/30/2018 9:24 AM SHIP LINER 12/30/2018 9:54 AM [facility] Narrative [facility] - 12/30/2018 10:05 AM [facility] Helen Zurita ORE PUNCHER-AMMUNITION SUPERVISOR LAB - URINALYS IS ORDERABLES [facility] [address] [place], [place] [phone] * (ABNORMAL) URINE MICROSCOPIC ONLY (12/30/2018 9:24 AM [facility]) Only the most recent of2 resultswithin the time period is included. RBC UA 3-5 None Seen, 0-2, 3-5 # /hpf 12/30/2018 10:26 AM [facility] WBC UA 0-5 None Seen, 0-5 # /hpf 12/30/2018 10:26 AM [facility] Hyaline Casts 0-2 None Seen, 0-2 # /lpf 12/30/2018 10:26 AM [facility] Bacteria UA Trace(A) None Seen 12/30/2018 10:26 AM [facility] Squamous Epithelial Cells 11-20(A) None Seen, 0-2, 3-5 /hpf 12/30/2018 10:26 AM [facility] Mucus UA 4+ /LPF 12/30/2018 10:26 AM [facility] Urine URINE SPECIMEN OBTAINED BY CLEAN CATCH PROCEDURE / Unknown Collection / Unknown 12/30/2018 9:24 AM SHIP LINER 12/30/2018 9:54 AM SHIP LINER Narrative [facility] - 12/30/2018 10:26 AM SHIP LINER Helen [facility] LAB - URINALYS IS ORDERABLES Performing Organization Address City/[facility]/ZIP Co de Phone Number [facility] [address] [place] [address] * CHLAMYDIA + GC AMPLIFIED PROBE (11/11/2018 12:26 PM CDT) Only the most recent of2 resultswithin the time period is included. Chlamydia Amplified Probe Negative Negative 11/12/2018 8:34 AM CDT [facility] GC Amplified Probe Negative Negative 11/12/2018 8:34 AM CDT [facility] Other ENTIRE ENDOCERVIX / Unknown Collection / Unknown 11/11/2018 12:26 PM CDT 11/11/2018 12:25 PM CDT Narrative [facility] - 11/12/2018 8:34 AM CDT Results based on detection/no detection of ribosomal RNA by amplified method. Helen Zurita [facility] LAB - MICROBIO LOGY ORDERABLES [facility] [address] [place] [address], [facility] [phone] * PAP LB HPV HR DNA (11/11/2018 12:09 PM CDT) Diagnosis Comment 11/15/2018 8:07 PM CDT [facility] ([facility]) Comment:NEGATIVE FOR INTRAEP ITHELIAL LESION OR MALIGNANCY. Specimen Adequacy Comment 019 8:07 PM CDT [facility] ([facility]) Comment: Satisfactory for evaluation. No endocervical component is identified. An endocervical component is not commonly seen in the patient. Performed by Comment 11/15/2018 8:07 PM CDT [facility] ([facility]) Comment:Bernarda Hutchins Cell Attendant Helper (ASCP) Comment . 11/15/2018 8:07 PM CDT [facility] ([facility]) Note Comment 11/15/2018 8:07 PM CDT [facility] ([facility]) Comment: The Pap smear is a screening test designed to aid in the detection of premalignant and malignant conditions of the uterine cervix. It is not a diagnostic procedure and should not be used as the sole means of detecting cervical cancer. Both false-positive and false-negative reports do occur. Human papillomavirus High Risk Negative Negative 11/15/2018 8:07 PM CDT [facility] ([facility]) Comment: This high-risk HPV test detects thirteen high-risk types (16/18/31/33/35/39/45/51/52/56/58/59/68) without differentiation. Pathology/Cytolo gy ENTIRE ENDOCERVIX / Unknown Collection / Unknown 11/11/2018 12:09 PM CDT 11/11/2018 12:27 PM CDT Narrative [facility] ([facility]) - 11/15/2018 8:07 PM CDT Performed at: 01 - [address] [id number] Student Services Advisor: Onelia Barbosa MD, Phone: [phone] Performed at: - [address] [id number] Student Services Advisor: Onelia Barbosa MD, Phone: [phone] Specimen Comment: Source.............Endocervix Specimen Comment: LMP / Prev Treat...[place] / BX Specimen Comment: Other.............. Specimen Comment: No. of containers..01 ThinPrep Vial Helen Zurita ORE PUNCHER-AMMUNITION SUPERVISOR LAB - PATHOLOG Y/CYTOLOGY ORDERABLES [facility] ([facility]) [address] [place] [address] * RUBELLA ANTIBODY IGG (11/11/2018 12:07 PM CDT) Rubella Antibody 4.02 Immune >0.99 index 11/12/2018 8:12 AM CDT [facility] ([facility]) Comment: Non-immune <0.90 Equivocal 0.90 - 0.99 Immune >0.99 Blood BLOOD SPECIMEN / Unknown Venipuncture / Unknown 11/11/2018 12:07 PM CDT 11/11/2018 12:56 PM CDT Narrative [facility] ([facility]) - 11/12/2018 8:12 AM CDT Performed at: 01 - [facility] [id number] [place], [place] [id number] Student Services Advisor: Neil Aviles PhD, Phone: [phone] Helen Zurita ORE PUNCHER-AMMUNITION SUPERVISOR LAB - SEROLOGY ORDERABLES Performing Organization Address City/State/[facility] Co de Phone Number [facility] ([facility]) [address] [place] [address] * HEMOGLOBIN ELECTROPHORESIS (11/11/2018 12:07 PM CDT) Hemoglobin A1 97.3 97.1 - 99.1 % 11/17/2018 12:40 PM CDT [facility] Hemoglobin F 0.0 0.0 - 2.0 % 11/17/2018 12:40 PM CDT [facility] Hemoglobin S 0.0 <=0.0 % 11/17/2018 12:40 PM CDT [facility] Hemoglobin C 0.0 <=0.0 % 11/17/2018 12:40 PM CDT [facility] Hemoglobin A2 2.7 0.9 - 2.9 % 11/17/2018 12:40 PM CDT [facility] Hemoglobin E 0.0 % 11/17/2018 12:40 PM CDT [facility] Interpretation Normal Interpretation 11/17/2018 12:40 PM CDT [facility] Blood BLOOD SPECIMEN / Unknown Venipuncture / Unknown 11/11/2018 12:07 PM CDT 11/11/2018 12:57 PM CDT Helen Zurita ORE PUNCHER-AMMUNITION SUPERVISOR LAB - CHEMISTR Y ORDERABLES Performing Organization Address City/[facility]/ZIP Co de Phone Number [facility] [address] [place] [address] * HEMOGLOBIN A1C (11/11/2018 12:07 PM CDT) [facility] Hemoglobin A1c 5.0 4.0 - 6.1 % 11/11/2018 1:26 PM CDT [facility] Estimated Average Glucose 97 mg/dL 11/11/2018 1:26 PM CDT [facility] Blood BLOOD SPECIMEN / Unknown Venipuncture / Unknown 11/11/2018 12:07 PM CDT 11/11/2018 12:56 PM CDT [facility]PER[facility] LAB - CHEMISTR Y ORDERABLES Performing Organization Address [facility] Co de Phone Number [facility] [address] [place] [address] * (ABNORMAL) CYSTIC FIBROSIS MUTATION PNL (11/11/2018 12:07 PM CDT) [facility] Cystic Fibrosis Screen CARRIER(A) 11/22/2018 11:08 AM CDT [facility] ([facility]) Comment: 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 This result should be interpreted in the context of the clinical indication. COMMENTS: Genetic counseling is recommended to discuss the potential clinical and/or reproductive implications of this result, as well as recommendations for testing other family members and, when applicable, this individual's partner. The detection rate varies with ethnicity, and the presence of a second, undetected mutation in the CF gene cannot be ruled out. Mutation Detection Detection rates are based on mutation Rates among Ethnic frequencies in patients affected with Groups cystic fibrosis. Among individuals with an atypical or mild presentation (e.g. congenital absence of the vas deferens, pancreatitis) detection rates may vary from those provided here: Detection Ethnicity Rate Ashkenazi 97% Congregational 90% (non-) -Cape Verdean 69% 73% 55% This interpretation is based on the clinical and family relationship information provided and the current understanding of the molecular genetics of this condition. MUTATIONS ANALYZED: G85E V520F D6481B 2183AA to G R117H G542X [id number] 2184delA R334W S549N 394delTT 2789+5G to A R347H S549R 621+1G to T 3120+1G to A R347P G551D 711+1G to T 3659delC A455E R553X 1078delT 3849+10kbC to T [id number] R560T 1717-1G to A 3876delA NfatzS072 R8220W 1898+1G to A 3905insT METHODS/LIMITATIONS: DNA is isolated from the sample and tested for the 32 CF mutations on the Page Array Platform ([employer]). Regions of the CFTR gene are amplified enzymatically and subjected to a solution-phase multiplex allele-specific primer extension with subsequent hybridization to a bead array and fluorescence detection. Polymorphisms F508C, I506V and I507V are included in this panel to rule out false positive [id number] homozygotes. Reflex testing of 5T is included in the panel for R117H interpretation. False positive or negative results may occur for reasons that include genetic variants, blood transfusions, bone marrow transplantation, erroneous representation of family relationships or contamination of a sample with maternal cells. REFERENCES: 1. Updates on Carrier Screening for Cystic Fibrosis. (2011) Am J Ob Gynecol 117(4):8138-5630 2. Chacho et al. (2004) Estefany Med 6:387-91 3. Ahmet, et al. (2002) Estefany Med 4:379-391 4. Preconception and carrier screening for cystic fibrosis: (2001)ACOG.ACMG publication Results Released By: Srinath Perrin, Ph.D., Door Clamper Released By: Yolanda Rich MS, [facility] [place], Genetic Counselor Comment Comment 11/22/2018 11:08 AM CDT [facility] ([facility]) Comment: The assay provides information intended [...] CDT 11/11/2018 12:56 PM CDT Narrative [facility] ([facility]) - 11/22/2018 11:08 AM CDT Performed at: 01 - [facility] [address] [facility], [place], [place] [id number] Student Services Advisor: Oscar Angelo MD, Phone: [phone] Helen Zurita APRN-[facility] LAB - HEMATOLO GY ORDERABLES [facility] ([facility]) [address] [place] [address] * HEPATITIS B SURFACE ANTIGEN W RFLX CONFIRMATION (11/11/2018 12:07 PM CDT) Pathologist [facility] [place] HBsAg Non Reactive Non Reactive 11/11/2018 1:55 PM CDT [facility] Blood BLOOD SPECIMEN / Unknown Venipuncture / Unknown 11/11/2018 12:07 PM CDT 11/11/2018 12:57 PM CDT Helen Zurita APRN-[facility] LAB - CHEMISTR Y ORDERABLES Performing Organization Address City/[facility]/ZIP Co de Phone Number [facility] [address] [place] [address] * HEPATITIS C ANTIBODY (11/11/2018 12:07 PM CDT) Only the most recent of2 resultswithin the time period is included. Pathologist [facility] [place] HCV Antibody Screen Non Reactive Non Reactive 11/11/2018 1:55 PM CDT [facility] HCV S/C Ratio 0.19 0.00 - 0.79 11/11/2018 1:55 PM CDT [facility] Comment: Muvhlw-xd-gjzfju ratio (S/CO) <0.80: Non Reactive Blood BLOOD SPECIMEN / Unknown Venipuncture / Unknown 11/11/2018 12:07 PM CDT 11/11/2018 12:56 PM CDT Narrative [facility] - 11/11/2018 1:55 PM CDT Non Reactive - Antibodies to Hepatitis C virus (HCV) were not detected, result does not exclude early acute HCV infection. Helen Zurita ORE PUNCHER-AMMUNITION SUPERVISOR LAB - CHEMISTR Y ORDERABLES [facility] [address] [place] [address] * PANORAMA TEST (11/11/2018) Pathologist [facility] [place] Comment Genetics Low risk-Femal e Blood BLOOD [...] the time period is included. Pathologist [facility] [place] WBC Auto 18.3 x10E9/L 09/01/2015 8:51 AM CDT [facility] WBC Corrected 4.4 - 10.7 x10E9/L 09/01/2015 8:51 AM CDT [facility] nRBC /100 WBC 09/01/2015 8:51 AM CDT [facility] Neutrophil % Manual 76(H) 44 - 73 % 09/01/2015 8:51 AM CDT [facility] Lymphocytes % Manual 5(L) 20 - 43 % 09/01/2015 8:51 AM CDT [facility] Monocytes % Manual 3(L) 5 - 13 % 09/01/2015 8:51 AM CDT [facility] Band % Manual 16(H) 0 - 11 % 09/01/2015 8:51 AM CDT [facility] Cells Counted 100 # cells 09/01/2015 8:51 AM CDT [facility] RBC Morphology Normal 09/01/2015 8:51 AM CDT [facility] WBC Morph Normal 09/01/2015 8:51 AM CDT [facility] Platelet Estimation Normal 09/01/2015 8:51 AM CDT [facility] Blood BLOOD SPECIMEN / Unknown Venipuncture / Unknown 09/01/2015 7:00 AM CDT 09/01/2015 7:45 AM CDT Daylin Macias MD LAB - HEMATOLOGY ORDERABLES Performing Organization Address City/[facility]/ZIP Co de Phone Number [facility] [address] [place] [address] * TRANSFUSE RED BLOOD CELL UNIT(S) (09/01/2015 1:54 AM CDT) Braxton Arias MD NURSING - BLOOD PROD TRANSFUSION * PREPARE FFP UNIT(S) (08/31/2015 10:44 PM CDT) Only the most recent of2 resultswithin the time period is included. [facility] Unit Donor # [id number] 09/01/2015 8:20 AM CDT [facility] Product Code E2701 09/01/2015 8:20 AM CDT [facility] Unit Description E2701 Plasma, CPD,Thawed 09/01/2015 8:20 AM CDT [facility] Unit Status Transfused Unit 09/01/2015 8:20 AM CDT [facility] ABO Donor Type AB 09/01/2015 8:20 AM CDT [facility] Rh Type Unit POS 09/01/2015 8:20 AM CDT [facility] Miscellaneous samples (specimen) BLOOD SPECIMEN / Unknown Venipuncture / Unknown 08/31/2015 10:44 PM CDT 08/31/2015 10:46 PM CDT Braxton Arias MD LAB - BLOOD BANK ORDERABLES Performing Organization Address City/[facility]/ZIP Co de Phone Number [facility] [address] [place] [address] * HIV-1 HIV-2 ANTIBODY + HIV P24 AG RAPID PNL (08/31/2015 10:30 PM CDT) Only the most recent of2 resultswithin the time period is included. [facility] HIV1/2 Ab + P24 Ag Rapid Non Reactive Non Reactive 08/31/2015 11:14 PM CDT [facility] Blood BLOOD SPECIMEN / Unknown Venipuncture / Unknown 08/31/2015 10:30 PM CDT 08/31/2015 10:42 PM CDT Narrative [facility] - 08/31/2015 11:14 PM CDT No Laboratory evidence of HIV infection. Braxton Arias MD LAB - SEROLOGY O RDERABLES Performing Organization Address City/[facility]/ZIP Co de Phone Number [facility] [address] [place] [address] * RPR (08/31/2015 10:30 PM CDT) RPR Non Reactive Non Reactive 09/01/2015 9:29 AM CDT [facility] Blood BLOOD SPECIMEN / Unknown Venipuncture / Unknown 08/31/2015 10:30 PM CDT 08/31/2015 10:42 PM CDT Braxton Arias MD LAB - CHEMISTRY ORDERABLES Performing Organization Address [facility] Co de Phone Number [facility] [address] [place] [address] * (ABNORMAL) COAGULATION PANEL W D-DIMER (08/31/2015 10:30 PM CDT) PT 9.6 9.5 - 11.6 sec 08/31/2015 11:56 PM CDT [facility] INR 0.9 0.9 - 1.1 08/31/2015 11:56 PM CDT [facility] PTT 23.7 21.0 - 32.0 sec 08/31/2015 11:56 PM CDT [facility] Fibrinogen 366 200 - 400 mg/dL 08/31/2015 11:56 PM CDT [facility] D-Dimer 1.84(H) 0.17 - 0.5 mg/L FEU 08/31/2015 11:56 PM CDT [facility] Platelet Count 288 153 - 416 x10E9/L 08/31/2015 11:56 PM CDT [facility] Blood BLOOD SPECIMEN / Unknown Venipuncture / Unknown 08/31/2015 10:30 PM CDT 08/31/2015 10:41 PM CDT Narrative [facility] - 08/31/2015 11:56 PM CDT Conventional Warfarin Anticoagulant Therapy INR Reference Range: 2.0-3.0 Intensive Warfarin Anticoagulant Therapy INR Reference Range: 2.5-3.5 Heparin Therapeutic Range for PTT: 47.7 [...] LAB - COAGULATION ORDERABLES Performing Organization Address City/State/[facility] Co de Phone Number [facility] [address] [place] [address] * HEPATITIS SCREEN ACUTE (08/31/2015 10:30 PM CDT) Only the most recent of2 resultswithin the time period is included. HAV Antibody IgM Non Reactive Non Reactive 09/01/2015 1:23 AM CDT [facility] HBsAg Non Reactive Non Reactive 09/01/2015 1:23 AM CDT [facility] HBc Antibody IgM Non Reactive Non Reactive 09/01/2015 1:23 AM CDT [facility] HCV Antibody Screen Non Reactive Non Reactive 09/01/2015 1:23 AM CDT [facility] HCV S/C Ratio <0.02 0.00 - 0.79 09/01/2015 1:23 AM CDT [facility] Comment: Xbredn-jy-eyxmns ratio (S/CO) <0.80: Non Reactive Blood BLOOD SPECIMEN / Unknown Venipuncture / Unknown 08/31/2015 10:30 PM CDT 08/31/2015 10:42 PM CDT Narrative [facility] - 09/01/2015 1:23 AM CDT Non Reactive - Antibodies to Hepatitis C virus (HCV) were not detected, result does not exclude early acute HCV infection. Non Reactive - Antibodies to Hepatitis C virus (HCV) were not detected, result does not exclude early acute HCV infection. Braxton Arias MD LAB - CHEMISTRY ORDERABLES [facility] [address] [place] [address] * (ABNORMAL) BLOOD GASES CORD GENIA (ISTAT) (08/31/2015 10:15 PM CDT) Only the most recent of2 resultswithin the time period is included. pH Cord Venous POCT 7.28 7.28 - 7.40 pH 09/01/2015 2:12 AM [facility] pCO2 Cord Venous POCT 51(H) 35 - 45 mmHg 09/01/2015 2:12 AM [facility] pO2 Cord Venous POCT 18(L) 22 - 33 mmHg 09/01/2015 2:12 AM [facility] HCO3 Cord Arterial POCT 24 22 - 24 mmol/L 09/01/2015 2:12 AM [facility] BE Cord Venous POCT Calc -4 -6 - 2 mmol/L 09/01/2015 2:12 AM [facility] TCO2 Cord Venous POCT 25 22 - 30 mmol/L 09/01/2015 2:12 AM [facility] O2 Saturation % Cord Venous Calc POCT 21 % 09/01/2015 2:12 AM [facility] Site CORD GENIA 09/01/2015 2:12 AM [facility] Sample iSTAT CORD V 09/01/2015 2:12 AM [facility] Blood CORD BLOOD SPECIMEN / Unknown 08/31/2015 10:15 PM CDT 09/01/2015 2:12 AM CDT Bakari Lomeli MD LAB - POINT OF CARE ORDERABLES [facility] [address] [place] [address] * (ABNORMAL) BLOOD GASES CORD ART (ISTAT) (08/31/2015 10:10 PM CDT) Only the most recent of2 resultswithin the time period is included. pH Cord Arterial POCT 7.22 7.20 - 7.34 pH 09/01/2015 2:12 AM CDT [facility] pCO2 Cord Arterial POCT 63.1(H) 45 - 55 mmHg 09/01/2015 2:12 AM CDT [facility] pO2 Cord Arterial POCT 10(L) 12 - 25 mmHg 09/01/2015 2:12 AM CDT [facility] HCO3 Cord Arterial POCT 26.0 15 - 29 mmol/L 09/01/2015 2:12 AM CDT [facility] BE Cord Arterial POCT -3(L) -2.9 - 8.3 mmol/L 09/01/2015 2:12 AM CDT [facility] TCO2 Cord Arterial POCT 28 mmol/L 09/01/2015 2:12 AM CDT [facility] O2 Saturation Cord Art % Calc POCT 7 % 09/01/2015 2:12 AM CDT [facility] Site CORD ART 09/01/2015 2:12 AM CDT [facility] Sample iSTAT CORD A 09/01/2015 2:12 AM CDT [facility] Blood CORD BLOOD SPECIMEN / Unknown 08/31/2015 10:10 PM CDT 09/01/2015 2:12 AM CDT Bakari Lomeli MD LAB - POINT OF CARE ORDERABLES [facility] [address] [place] [address] * NEURAXIAL BLOCK (08/31/2015 8:39 PM CDT) Narrative Mercy Dean APRN-CRNA - 08/31/2015 8:39 PM CDT Mercy Dean APRN-CRNA 08/31/2015 8:39 PM NEURAXIAL BLOCK Patient Location: OB Pre Procedure Indication: labor analgesia Anticoagulation /Antithrombosis Status Confirmed: Yes Preanesthetic Checklist: patient identified, IV checked, site marked, risks and benefits discussed, surgical consent verified, monitors and equipment checked, pre-op evaluation done, timeout performed, informed consent obtained and questions answered / anesthesia plan accepted Monitors: BP and Pulse Ox Patient Condition: awake Patient Position: sitting Procedure Block Performed: epidural Prep: Betadine Sterile Field: mask, cap/hat, sterile field established and sterile gloves Approach: midline Skin Numbed with: lidocaine 1% Epidural Needle Type: Tuohy Needle Gauge: 18 Needle Length: 3.5 in Placement Site: L3-L4 Number of Attempts: 1 Loss of ResistanceTechnique: air Loss of Resistance: 6 cm Catheter Length at Skin: 12 cm CSF Aspirated from Catheter: negative Blood Aspirated from Catheter: negative Test Dose: lidocaine 1.5% with 1 200 k epinephrine 3 ml at 08/31/2015 8:26 PM Test Dose Response: negative Local Anesthetic: lidocaine 2% 5 ml Epidural additive: fentanyl Events CSF return negative injection not painful no paresthesia Degree of Difficulty: none Position Post Procedure: left uterine displacement and head of bed elevated 30 degrees Vital signs monitored and stable throughout. See Anesthesia Intraop record for details. Block Start Time: 08/31/2015 8:26 PM Block End Time: 08/31/2015 8:26 PM Block Performed by: cassandra Dean CRNA Notes: Called to patients room. Epidural placed without complications. Negative heme, Neg, CSF + ADELAIDA x 1 attempt. Pt getting comfortable Bakari Lomeli MD GENERAL ANESTHESIA O RDERABLES * CROSSMATCH RBC (08/31/2015 8:18 PM CDT) Only the most recent of4 resultswithin the time period is included. [facility] Signature Unit Donor # [id number] -E 09/01/2015 8:21 AM CDT [facility] Product Code E0336 09/01/2015 8:21 AM CDT [facility] Unit Description E0336 RBC, LR, CPD>AS1 09/01/2015 8:21 AM CDT [facility] ABO Donor Type A 09/01/2015 8:21 AM CDT [facility] Rh Type Unit POS 09/01/2015 8:21 AM CDT [facility] Crossmatch Interpretation Compatible 09/01/2015 8:21 AM CDT [facility] Unit Status Transfused Unit 09/01/2015 8:21 AM CDT [facility] Miscellaneous samples (specimen) BLOOD SPECIMEN / Unknown 08/31/2015 8:18 PM CDT 08/31/2015 8:36 PM CDT Daylin Macias MD LAB - BLOOD BANK ORDERABLES Performing Organization Address [facility] Co de Phone Number [facility] [address] [place] [address] * (ABNORMAL) FIBRINOGEN ACTIVITY (08/31/2015 6:25 PM CDT) Fibrinogen 471(H) 200 - 400 mg/dL 08/31/2015 7:09 PM CDT [facility] Blood BLOOD SPECIMEN / Unknown Venipuncture / Unknown 08/31/2015 6:25 PM CDT 08/31/2015 6:36 PM CDT Gabrielle Plata MD LAB - COAGULATION OR DERABLES Performing Organization Address [facility] Co de Phone Number [facility] [address] [place] [address] * PTT (08/31/2015 6:25 PM CDT) PTT 23.0 21.0 - 32.0 sec 08/31/2015 7:09 PM CDT [facility] Blood BLOOD SPECIMEN / Unknown Venipuncture / Unknown 08/31/2015 6:25 PM CDT 08/31/2015 6:36 PM CDT Narrative [facility] - 08/31/2015 7:09 PM CDT Heparin Therapeutic Range for PTT: 47.7 - 68.6 seconds. Gabrielle Plata MD LAB - COAGULATION OR DERABLES Performing Organization Address [facility] Co de Phone Number [facility] [address] [place] [address] * (ABNORMAL) PT-INR (08/31/2015 6:25 PM CDT) PT <9.5(L) 9.5 - 11.6 sec 08/31/2015 7:10 PM CDT [facility] INR 0.9 0.9 - 1.1 08/31/2015 7:10 PM CDT [facility] Blood BLOOD SPECIMEN / Unknown Venipuncture / Unknown 08/31/2015 6:25 PM CDT 08/31/2015 6:36 PM CDT Narrative [facility] - 08/31/2015 7:10 PM CDT Conventional Warfarin Anticoagulant Therapy: INR Reference Range: 2.0-3.0 Intensive Warfarin Anticoagulant Therapy: INR Reference Range: 2.5-3.5 Gabrielle Plata MD LAB - COAGULATION OR DERABLES Performing Organization Address City/[facility]/ZIP Co de Phone Number [facility] [address] [place] [address] * PATHOLOGY/GENETICS HISTORICAL-ONBASE (08/31/2015) 08/31/2015 Historical Provider LAB - CHEMISTRY O RDERABLES Performing Organization Address City/[facility]/ZIP Co de Phone Number [address] * LAB RESULTS ORDER (08/05/2015 1:49 AM CDT) Only the most recent of2 resultswithin the time period is included. Narrative 08/05/2015 1:49 AM CDT Ordered by an unspecified provider. Scanned Document LAB - THERAPEUTIC DR MARI MONITORING ORDERABLES * (ABNORMAL) HEPATIC FUNCTION PANEL (07/18/2015 2:24 PM CDT) Alkaline Phosphatase 135(H) 38 - 126 U/L 07/18/2015 3:15 PM CDT [facility] ALT 16 12 - 78 U/L 07/18/2015 3:15 PM CDT [facility] AST 12 5 - 40 U/L 07/18/2015 3:15 PM CDT [facility] Protein Total 6.9 6.4 - 8.2 gm/dL 07/18/2015 3:15 PM CDT [facility] Albumin 2.6(L) 3.4 - 5.0 gm/dL 07/18/2015 3:15 PM CDT [facility] Bilirubin Total 0.2 0.2 - 1.0 mg/dL 07/18/2015 3:15 PM CDT [facility] Bilirubin Direct <0.1 0 - 0.3 mg/dL 07/18/2015 3:15 PM CDT [facility] Blood BLOOD SPECIMEN / Unknown Venipuncture / Unknown 07/18/2015 2:24 PM CDT 07/18/2015 2:35 PM CDT Loy Grider MD LAB - CHEMISTRY RM MOSS [facility] Organization Address City/State/[facility] Co de Phone Number [facility] [address] [place] [address] * NEURAXIAL BLOCK (04/03/2014 10:41 AM SHIP LINER) Narrative Yolanda Dean APRN-CRNA - 04/03/2014 10:41 AM SHIP [facility]ER CHRISTI Kat 04/03/2014 10:41 AM NEURAXIAL BLOCK Patient Location: OB Pre Procedure Indication: surgical anesthesia Anticoagulation /Antithrombosis Status Confirmed: Yes Preanesthetic Checklist: patient identified, IV checked, site marked, risks and benefits discussed, surgical consent verified, monitors and equipment checked, pre-op evaluation done, timeout performed, informed consent obtained and questions answered / anesthesia plan accepted Monitors: BP and Pulse Ox Patient Condition: awake Patient Position: sitting Procedure Block Performed: spinal Prep: Betadine Sterile Field: mask, cap/hat, sterile field established and sterile gloves Approach: midline Skin Numbed with: lidocaine 1% Spinal Needle Type: pencil-point Needle Gauge: 25 G Needle Length: 3.5 in Placement Site: L3-4 Number of Attempts: 1 CSF: free flow, aspiration before injection, aspiration during injection and aspiration after injection Local Anesthetic: bupivacaine 0.75% in dextrose 1.8 ml Spinal Additive: 0.2 mg Events CSF return injection not painful no paresthesia no other event Degree of Difficulty: none Position Post Procedure: left uterine displacement Vital signs monitored and stable throughout. See Anesthesia Intraop record for details. Block Start Time: 04/03/2014 10:34 AM Block End Time: 04/03/2014 10:35 AM Block Performed by: cmeyer Jaren Vázquez MD GENERAL ANESTHESIA O RDERABLES * BLOOD TYPE VERIFICATION (04/03/2014 8:57 AM SHIP LINER) ABO A 04/03/2014 9:53 AM SHIP [facility]ER [facility] Rh Type Positive 04/03/2014 9:53 AM SH[facility] Miscellaneous samples (specimen) BLOOD SPECIMEN / Unknown Venipuncture / Unknown 04/03/2014 8:57 AM SHIP LINER 04/03/2014 9:22 AM SHIP LINER Jaren Vázquez MD LAB - BLOOD BANK ORD ERABLES [facility] [address] Care Teams Margin Analyst Relationship Specialty Start Date End Date Mario Logan MD [address] [place] [address] [place] [id number] PCP - General 05/24/19
--- OUTSIDE RECORDS SUMMARY | 2024-05-06 13:05 | XMS_ITS | Referral Summary ---
Author Organization 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 Gender Identity Not on file Sexual Orientation Not on file Last Filed Vital Signs Vital Sign Reading Time Taken Comments Blood Pressure 99/58 10/20/2023 3:57 PM CDT Pulse 89 10/20/2023 3:57 PM CDT Temperature 36.2 C (97.2 F) 10/20/2023 3:57 PM CDT Respiratory Rate 16 10/20/2023 3:57 PM CDT Oxygen Saturation 97% 10/20/2023 3:57 PM CDT Inhaled Oxygen Concentration - - Weight 54.4 kg (120 lb) 07/29/2023 10:41 AM CDT Height 154.9 cm (5' 1 ) 07/29/2023 10:41 AM CDT Body Mass Index 22.67 07/29/2023 10:41 AM CDT Plan of Treatment Not on file Insurance [facility] Advance Directives For more information, please contact: [phone] * Full Code (Latest Code Status on File) Date Activated Date Inactivated Comments 10/20/2023 12:17 PM 10/20/2023 8:58 PM Care Teams Family Service Caseworker Relationship Specialty Start Date End Date Christofer Stewart MD [address] [facility] [address] ESTRELLA A [address] [address] PCP - General Family Medicine 06/23/23
--- OUTSIDE RECORDS SUMMARY | 2024-05-06 13:05 | XMS_ITS | Referral Summary ---
Author Organization [facility] [employer] Address [address] [facility] [place] [address] Care Team Providers Care Java Technical Manager Name Role Phone Mario Logan MD Primary Care Provider Source Comments [facility],non-owned Affiliates and Associated Physician Practices is amultiple site organization consisting of ambulatory clinics and hospital sitesin [place], [place], [place] and [place]. This disclosure is being madepursuant to the Care Everywhere program and may not contain all information available regarding this patient. Last updated 17.[facility] [employer] Allergies Active Allergy Reactions Criticality Noted Date [...] naloxone HCl (NARCAN) 4 MG/0.1ML nasal spray [place] 1 spray into the nose as needed [...] migh t be different from the original. [id number] Problem Noted Date Diagnosed Date Non-reactive NST [...] 02/28/2014 Overview (05/05/2019): Confirmed dose-270 mg from [facility]. Scanned Into media. 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 Supervision of high risk in second trimester (HCC) PAP LB HPV HR DNA Routine 11/11/2018 12: 09 PM CDT Cervical cancer screening HEPATITIS C ANTIBODY Routine 11/11/2018 12:07 PM CDT Supervision of high risk , antepartum (HCC) from Last 3 Months or Most Recently Relevant to Health Maintenance Results * HIV-1 HIV-2 ANTIBODY + HIV P24 AG PANEL (03/10/2019 1:24 PM LIGHT TRUCK DRIVER) HIV1/2 Ab + P24 Ag Non Reactive Non Reactive 03/10/2019 2:57 PM LIGHT TRUCK DRIVER [facility] Blood BLOOD SPECIMEN / Unknown Venipuncture / Unknown 03/10/2019 1:24 PM LIGHT TRUCK DRIVER 03/10/2019 1:49 PM LIGHT TRUCK DRIVER Narrative [facility] - 03/10/2019 2:57 PM LIGHT TRUCK DRIVER No Laboratory evidence of HIV infection. Ivana Thomas MINES INSPECTOR-MAGNET VALVE ASSEMBLER LAB - CHEMISTRY ORDERABLES [facility] [address] [place] [address] * PAP LB HPV HR DNA (11/11/2018 12:09 PM CDT) Diagnosis Comment 11/15/2018 8:07 PM CDT [facility] ([facility]) Comment:NEGATIVE FOR INTRAEP ITHELIAL LESION OR MALIGNANCY. Specimen Adequacy Comment 019 8:07 PM CDT [facility] ([facility]) Comment: Satisfactory for evaluation. No endocervical component is identified. An endocervical component is not commonly seen in the patient. Performed by Comment 11/15/2018 8:07 PM CDT [facility] ([facility]) Comment:Bernarda Hutchins Rn Hemo Dialysis (ASCP) Comment . 11/15/2018 8:07 PM CDT [facility] ([facility]) Note Comment 11/15/2018 8:07 PM CDT [facility] ([facility]) Comment: The Pap smear is a screening test designed to aid in the detection of premalignant and malignant conditions of the uterine cervix. It is not a diagnostic procedure and should not be used as the sole means of detecting cervical cancer. Both false-positive and false-negative reports do occur. Human papillomavirus High Risk Negative Negative 11/15/2018 8:07 PM CDT [facility] ([facility]) Comment: This high-risk HPV test detects thirteen high-risk types (16/18/31/33/35/39/45/51/52/56/58/59/68) without differentiation. Pathology/Cytolo gy ENTIRE ENDOCERVIX / Unknown Collection / Unknown 11/11/2018 12:09 PM CDT 11/11/2018 12:27 PM CDT Narrative [facility] ([facility]) - 11/15/2018 8:07 PM CDT Performed at: 01 - [address] [id number] Land Economist: Onelia Barbosa MD, Phone: [phone] Performed at: - [address] [id number] Land Economist: Onelia Barbosa MD, Phone: [phone] Specimen Comment: Source.............Endocervix Specimen Comment: LMP / Prev Treat...Conization;[place] / BX Specimen Comment: Other.............. Specimen Comment: No. of containers..01 ThinPrep Vial Helen Zurita MINES INSPECTOR-MAGNET VALVE ASSEMBLER LAB - PATHOLOG Y/CYTOLOGY ORDERABLES [facility] ([facility]) [address] [place] [address] * HEPATITIS C ANTIBODY (11/11/2018 12:07 PM CDT) HCV Antibody Screen Non Reactive Non Reactive 11/11/2018 1:55 PM CDT [facility] HCV S/C Ratio 0.19 0.00 - 0.79 11/11/2018 1:55 PM CDT [facility] Comment: Zlifdq-od-mdznxe ratio (S/CO) <0.80: Non Reactive Blood BLOOD SPECIMEN / Unknown Venipuncture / Unknown 11/11/2018 12:07 PM CDT 11/11/2018 12:56 PM CDT Narrative [facility] - 11/11/2018 1:55 PM CDT Non Reactive - Antibodies to Hepatitis C virus (HCV) were not detected, result does not exclude early acute HCV infection. Helen Ballardbrock MINES INSPECTOR-MAGNET VALVE ASSEMBLER LAB - CHEMISTR Y ORDERABLES [facility] [address] [place] [address] from Last 3 Months or Most Recently [...] 11:00 AM 03/17/2019 7:31 PM Care Teams Java Technical Manager Relationship Specialty Start Date End Date Mario Logan MD [address] [place] [address] PCP - General 05/24/19
--- OUTSIDE RECORDS SUMMARY | 2024-05-06 13:05 | XMS_ITS | Clinical Summary ---
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 Gender Identity Not on file Sexual Orientation [...] Cancer Screening 1982 Hepatitis C Screening 1982 Varicella Vaccines (1 of 2 - 13+ 2-dose series) 1995 Pneumococcal vaccine <65 (1 of 2 - PCV) 2001 02/24/2016 Influenza Vaccine (#1) 2023 9, 04/05/2014, 02/22/2013 Depression Screening 06/22/2024 06/23/2023 Regular Well Visit/Exam 18-64 06/22/2024 06/23/2023 DTaP/Tdap/Td Vaccine (6 - Td or Tdap) 04/21/2029 04/21/2019, 12/07/2016, 02/24/2016, Additional history exists Hepatitis B Screening Completed 01/27/2019, 019 HPV Vaccines Aged Out No longer eligi ble based on patient's age to complete this topic Insurance [facility] Advance Directives For more information, please contact: [phone] * Full Code (Latest Code Status on File) Date Activated Date Inactivated Comments 10/20/2023 12:17 PM 10/20/2023 8:58 PM Care Teams Plant Ecologist Relationship Specialty Start Date End Date Christofer Stewart MD [address] [facility] [address] SAMEER Ruvalcaba [address] [address] PCP - General Family Medicine 06/23/23
--- OUTSIDE RECORDS SUMMARY | 2024-05-06 13:05 | XMS_ITS | Encounter Summary ---
Author Organization [facility] Address [address] [place] [address] Care Team Providers Care Conservation Worker Name Role Phone None, Provider Primary Care Provider Unavaila ble Encounter Details Date Type Department Care Team (Late st Contact Info) Description 07/31/2018 Abstract [facility]FL CONVERSION [address] [place] [address] , Generic Conversion, Social History [...] on filedocumented in this encounter Care Teams Conservation Worker Relationship Specialty Start Date End Date None, Provider, PCP - General UNKNOWN PHYSICIAN SPECIALTY 07/13/23 documented as of this encounter
--- OUTSIDE RECORDS SUMMARY | 2024-05-06 13:05 | XMS_ITS | Clinical Summary ---
Author Organization [facility] Address [address] [place] [address] Care Team Providers Care Oracle Forms Developer Name Role Phone Mario Logan MD Primary Care Provider Source Comments [facility],non-owned Affiliates and Associated Physician Practices is amultiple site organization consisting of ambulatory clinics and hospital sitesin [place], [place], [place] and [place]. This disclosure is being madepursuant to the Care Everywhere program and may not contain all information available regarding this patient. Last updated 17.[facility] Allergies Active Allergy Reactions Criticality Noted Date [...] naloxone HCl (NARCAN) 4 MG/0.1ML nasal spray [place] 1 spray into the nose as needed [...] migh t be different from the original. [id number] Problem Noted Date Diagnosed Date Non-reactive NST [...] 05/30/04: neg 2000: CRISTIAN 3 s/p LEEP [place] Evaluate anatomy not seen on prior sonogram [...] 12/09/2018 PAP SMEAR 11/11/2021 11/11/2018 COVID-19 VACCINE (1 - 2023- season) 2023 INFLUENZA VACCINE (#1) 2023 9, [...] complete this topic MENINGOCOCCAL (Group B) VACCINE SHARED DECISION-MAKING Aged Out No longer eligible based on patient's age to complete this topic MENINGOCOCCAL GROUPS A/C/Y/W VACCINE Aged Out No longer eligible based on patient's age to complete this topic Procedures Procedure Name Priority Date/Time Associated Diagnosis Comments HIV-1 HIV-2 ANTIBODY + HIV P24 AG PANEL Routine 03/10/2019 1:24 PM BAKERY ASSISTANT Supervision of high risk in second trimester (HCC) PAP LB HPV HR DNA Routine 11/11/2018 12: 09 PM CDT Cervical cancer screening HEPATITIS C ANTIBODY Routine 11/11/2018 12:07 PM CDT Supervision of high risk , antepartum (HCC) from Last 3 Months or Most Recently Relevant to Health Maintenance Results * HIV-1 HIV-2 ANTIBODY + HIV P24 AG PANEL (03/10/2019 1:24 PM BAKERY ASSISTANT) HIV1/2 Ab + P24 Ag Non Reactive Non Reactive 03/10/2019 2:57 PM BAKERY ASSISTANT [facility] Blood BLOOD SPECIMEN / Unknown Venipuncture / Unknown 03/10/2019 1:24 PM BAKERY ASSISTANT 03/10/2019 1:49 PM BAKERY ASSISTANT Narrative [facility] - 03/10/2019 2:57 PM BAKERY ASSISTANT No Laboratory evidence of HIV infection. Ivana Thomas HARDBOARD PANEL PRINTER-PHYSICAL DIRECTOR LAB - CHEMISTRY ORDERABLES [facility] [address] [place] [address] * PAP LB HPV HR DNA (11/11/2018 12:09 PM CDT) Diagnosis Comment 11/15/2018 8:07 PM CDT [facility] ([facility]) Comment:NEGATIVE FOR INTRAEP ITHELIAL LESION OR MALIGNANCY. Specimen Adequacy Comment 019 8:07 PM CDT [facility] ([facility]) Comment: Satisfactory for evaluation. No endocervical component is identified. An endocervical component is not commonly seen in the patient. Performed by Comment 11/15/2018 8:07 PM CDT [facility] ([facility]) Comment:Bernarda Hutchins Sales Designer (ASCP) Comment . 11/15/2018 8:07 PM CDT [facility] ([facility]) Note Comment 11/15/2018 8:07 PM CDT [facility] ([facility]) Comment: The Pap smear is a screening test designed to aid in the detection of premalignant and malignant conditions of the uterine cervix. It is not a diagnostic procedure and should not be used as the sole means of detecting cervical cancer. Both false-positive and false-negative reports do occur. Human papillomavirus High Risk Negative Negative 11/15/2018 8:07 PM CDT [facility] ([facility]) Comment: This high-risk HPV test detects thirteen high-risk types (16/18/31/33/35/39/45/51/52/56/58/59/68) without differentiation. Pathology/Cytolo gy ENTIRE ENDOCERVIX / Unknown Collection / Unknown 11/11/2018 12:09 PM CDT 11/11/2018 12:27 PM CDT [facility] ([facility]) - 11/15/2018 8:07 PM CDT Performed at: 01 - [address] [id number] Quencher Operator: Onelia Barbosa MD, Phone: [phone] Performed at: 02 - [address] [id number] Quencher Operator: Onelia Barbosa MD, Phone: [phone] Specimen Comment: Source.............Endocervix Specimen Comment: LMP / Prev Treat...Conization;[place] / BX Specimen Comment: Other.............. Specimen Comment: No. of containers..01 ThinPrep Vial Helen Zurita HARDBOARD PANEL PRINTER-PHYSICAL DIRECTOR LAB - PATHOLOG Y/CYTOLOGY ORDERABLES [facility] ([facility]) [address] [place] [address] * HEPATITIS C ANTIBODY (11/11/2018 12:07 PM CDT) HCV Antibody Screen Non Reactive Non Reactive 11/11/2018 1:55 PM CDT [facility] HCV S/C Ratio 0.19 0.00 - 0.79 11/11/2018 1:55 PM CDT [facility] Comment: Ccntvg-my-cilxnp ratio (S/CO) <0.80: Non Reactive Blood BLOOD SPECIMEN / Unknown Venipuncture / Unknown 11/11/2018 12:07 PM CDT 11/11/2018 12:56 PM CDT Narrative [facility] - 11/11/2018 1:55 PM CDT Non Reactive - Antibodies to Hepatitis C virus (HCV) were not detected, result does not exclude early acute HCV infection. Helen Zurita APRN-PHYSICAL DIRECTOR LAB - CHEMISTR Y ORDERABLES Performing Organization Address City/[facility]/ZIP Co de Phone Number [facility] [address] [place] [address] from Last 3 Months or Most Recently [...] 11:00 AM 03/17/2019 7:31 PM Care Teams Oracle Forms Developer Relationship Specialty Start Date End Date Mario Logan MD [address] [place] [address] [place] [phone] PCP - General 05/24/19
--- OUTSIDE RECORDS SUMMARY | 2024-05-06 13:05 | XMS_ITS | Clinical Summary ---
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 Yes 10/13/2023 Comments No Sex and Gender Information Value Date Recorded Sex Assigned at Not on file Legal Sex Female 11:36 PM CDT Gender Identity Not on file Sexual Orientation Not on file Last Filed Vital Signs Vital Sign Reading Time Taken Comments Blood Pressure 125/80 02/04/2024 6:44 PM SAFETY EQUIPMENT TESTER Pulse 85 02/04/2024 6:44 PM SAFETY EQUIPMENT TESTER Temperature 36.9 C (98.5 F) 02/04/2024 6:44 PM SAFETY EQUIPMENT TESTER Respiratory Rate 16 02/04/2024 6:44 PM SAFETY EQUIPMENT TESTER Oxygen Saturation 100% 02/04/2024 6:44 PM SAFETY EQUIPMENT TESTER Inhaled Oxygen Concentration - - Weight 52.7 kg (116 lb 1.6 oz) 02/04/2024 6:44 P M SAFETY EQUIPMENT TESTER Height 154.9 cm (5' 1 ) 02/04/2024 6:44 PM SAFETY EQUIPMENT TESTER Body Mass Index 21.94 02/04/2024 6:44 PM SAFETY EQUIPMENT TESTER Plan of Treatment Health Maintenance Due Date [...] VARGHESE NON-REACT VARGHESE 10/13/2023 1:41 PM CDT [facility] Comment:HBsAg NOT DETECTED. HEP B CORE IGM NON-REACT VARGHESE NON-REACT VARGHESE 10/13/2023 1:41 PM CDT [facility] Comment: IgM ANTI HBc NOT DETECTED. DOES NOT EXCLUDE THE POSSIBILITY OF EXPOSURE TO OR INFECTION WITH HBV. NO RETEST REQUIRED. HIGH DOSES OF BIOTIN MAY INTERFERE WITH THIS TEST RESULT. CORRELATION TO CLINICAL HISTORY AND PRESENTATION RECOMMENDED. HAV IGM NON-REACT VARGHESE NON-REACT VARGHESE 10/13/2023 1:41 PM CDT [facility] Comment: IgM ANTI HAV NOT DETECTED. DOES NOT EXCLUDE THE POSSIBILITY OF EXPOSURE TO OR INFECTION WITH HAV. LEVELS OF IgM ANTI HAV MAY BE BELOW THE CUTOFF IN EARLY INFECTION. HEPATITIS C AB NON-REACT VARGHESE NON-REACT VARGHESE 10/13/2023 1:42 PM CDT [facility] Comment: ANTIBODIES TO HCV NOT DETECTED. DOES NOT EXCLUDE THE POSSIBILITY OF EXPOSURE TO HCV. 10/13/2023 3:24 AM CDT us Tenisha Cheema MD LABORATORY Final Result [facility] [address] [place] [address], [id number] from Last 3 Months or Most Recently Relevant to Health Maintenance Insurance [employer] Advance Directives Documents on File Type Date Recorded Patient Honing Machine Set Up Operator Expl anation Advance Directives and Living Will 05/10/2015 12:00 AM ADVANCED DIRECTIVES Advance Directives and Living Will 08/06/2013 12:00 AM ADVANCED DIRECTIVES Advance Directives and Living Will 12/28/2012 12:00 AM ADVANCED DIRECTIVES * Full Code (Latest Code Status on File) Date Activated Date Inactivated Comments 10/13/2023 5:53 AM 10/14/2023 10:50 AM Care Teams Engineer Sergeant Relationship Specialty Start Date End Date None, Provider, MD PCP - General UNKNOWN PHYSICIAN SPECIALTY 07/13/23
[2024-05-06 13:18] LABS: Basophils Absolute Auto 0.06 K/mm3 (0.00-0.10); Eosinophils Absolute Auto 0.05 K/mm3 (0.02-0.50); Eosinophils Percent Auto 0.8 % (1.0-6.0); Hematocrit 40.6 % (35.0-49.0); Hemoglobin 12.8 g/dL (12.0-15.0); Immature Granulocyte Absolute 0.01 K/mm3 (0.00-0.00); Immature Granulocyte Percent A 0.2 % (0.0-0.0); Lymphocytes Absolute Auto 1.94 K/mm3 (1.10-4.50); Lymphocytes Percent Auto 31.9 % (18.0-42.0); Mean Corpuscular HGB Conc 31.5 g/dL (32-36); Mean Corpuscular Hemoglobin 29.9 pg (27.0-31.0); Mean Corpuscular Volume 94.9 fL (78.0-102.0); Mean Platelet Volume 9.4 fl (9.2-11.8); Monocytes Absolute Auto 0.42 K/mm3 (0.10-0.90); Monocytes Percent Auto 6.9 % (2.0-11.0); Neutrophils Percent Auto 59.2 % (50.0-70.0); Platelet Count Result 368 K/mm3 (150-420); Red Blood Count 4.28 M/mm3 (4.20-5.40); Red Cell Distribution Width 12.6 % (11.6-14.4); White Blood Count 6.1 K/mm3 (4.8-10.8)
[2024-05-06 13:24] LABS: Add Urine Microscopic? NO; Appearance Urine Clear (Clear); Bilirubin Urine Negative (Negative); Blood Urine Trace-intact (Negative); Color Urine Light Yellow (Yellow); Glucose Urine UA Negative (Negative); Ketones Urine Negative (Negative); Leukocyte Esterase Ur Negative LEU/UL (Negative); Nitrate Urine Negative (Negative); Protein Urine Negative (Negative); Specific Grav Ur 1.015 (1.010-1.020); Urobilinogen Urine 0.2 mg/dL (0.2-1.0)
[2024-05-06 13:34] LABS: Alanine Aminotransferase 24 U/L (14-59); Albumin Level 3.6 g/dL (3.4-5.0); Alkaline Phosphatase 99 U/L (46-116); Amphetamine Screen Urine Negative (Negative); Anion Gap 7 mmol/L (4-12); Aspartate Amino Transferase < 10 U/L (15-37); Barbiturate Screen Urine Negative (Negative); Benzodiazepines Screen Urine Negative (Negative); Bilirubin,Total 0.3 mg/dL (0.00-1.00); Blood Urea Nitrogen 13 mg/dL (7-18); Calcium 8.9 mg/dL (8.5-10.1); Cannabinoid Screen Urine Negative (Negative); Carbon Dioxide 30 mmol/L (21-32); Chloride 108 mmol/L (98-108); Cocaine Screen Urine Negative (Negative); Estimated CRCL calculation 43 ml/min; Estimated Glomerular Filt Rate > 60; Glucose 83 mg/dL (70-99); Methadone Screen Urine Negative (Negative); Opiate Screen Urine Negative (Negative); Osmolality Calculated 299 mOsm/kg (285-295); Phencyclidine Screen Urine Negative (Negative); Potassium 3.9 mmol/L (3.5-5.1); Salicylate 2.5 mg/dL (2.8-20.0); Sodium 145 mmol/L (136-145); Total Protein 7.1 g/dL (6.4-8.2)
[2024-05-06 13:35] LABS: Acetaminophen < 2 ug/mL (10-30); Ethanol < 3 mg/dL (0-6)
[2024-05-06 13:36] LABS: Pregnancy On Board Control Positive; Urine Pregnancy Test Negative
--- OUTSIDE RECORDS SUMMARY | 2024-05-06 13:41 | XMS_ITS | Referral Summary ---
Author Organization [facility] [email or web address] Address [address] [place] [address] Care Team Providers Care Respiratory Clinician Name Role Phone Mario Logan MD Primary Care Provider [phone] Source Comments [facility],non-owned Affiliates and Associated Physician Practices is amultiple site organization consisting of ambulatory clinics and hospital sitesin [place], [place], [place] and [place]. This disclosure is being madepursuant to the Care Everywhere program and may not contain all information available regarding this patient. Last updated 17.[email or web address] Allergies Active Allergy Reactions Criticality Noted Date [...] naloxone HCl (NARCAN) 4 MG/0.1ML nasal spray [place] 1 spray into the nose as needed [...] migh t be different from the original. [id number] Problem Noted Date Diagnosed Date Non-reactive NST [...] Overview (05/05/2019): Confirmed dose-270 mg from [facility]. Scanned Into media. Previously used heroin [...] 05/30/04: neg 2000: CRISTIAN 3 s/p LEEP [place] Evaluate anatomy not seen on prior sonogram [...] P24 AG PANEL Routine 03/10/2019 1:24 PM CARPENTER HELPER HARDWOOD FLOORING Supervision of high risk in second trimester (HCC) PAP LB HPV HR DNA Routine 11/11/2018 12: 09 PM CDT Cervical cancer screening HEPATITIS C ANTIBODY Routine 11/11/2018 12:07 PM CDT Supervision of high risk , antepartum (HCC) from Last 3 Months or Most Recently Relevant to Health Maintenance Results * HIV-1 HIV-2 ANTIBODY + HIV P24 AG PANEL (03/10/2019 1:24 PM CARPENTER HELPER HARDWOOD FLOORING) HIV1/2 Ab + P24 Ag Non Reactive Non Reactive 03/10/2019 2:57 PM CARPENTER HELPER HARDWOOD FLOORING [facility] Blood BLOOD SPECIMEN / Unknown Venipuncture / Unknown 03/10/2019 1:24 PM CARPENTER HELPER HARDWOOD FLOORING 03/10/2019 1:49 PM CARPENTER HELPER HARDWOOD FLOORING Narrative [facility] - 03/10/2019 2:57 PM CARPENTER HELPER HARDWOOD FLOORING No Laboratory evidence of HIV infection. Ivana Thomas SLIDER ASSEMBLER-MANAGER PSYCHOLOGY LAB - CHEMISTRY ORDERABLES [facility] [address] [place] [address] * PAP LB HPV HR DNA (11/11/2018 12:09 PM CDT) Diagnosis Comment 11/15/2018 8:07 PM CDT [facility] ([facility]) Comment:NEGATIVE FOR INTRAEP ITHELIAL LESION OR MALIGNANCY. Specimen Adequacy Comment 019 8:07 PM CDT [facility] ([facility]) Comment: Satisfactory for evaluation. No endocervical component is identified. An endocervical component is not commonly seen in the patient. Performed by Comment 11/15/2018 8:07 PM CDT [facility] ([facility]) Comment:Bernarda Hutchins Human Resources Recruiter (ASCP) Comment . 11/15/2018 8:07 PM CDT [...] CDT 11/11/2018 12:27 PM CDT Narrative [facility] ([facility]) - 11/15/2018 8:07 PM CDT Performed at: 01 - [address] [id number] Lunchroom Supervisor: Onelia Barbosa MD, Phone: [phone] Performed at: - [address] [id number] Lunchroom Supervisor: Onelia Barbosa MD, Phone: [phone] Specimen Comment: Source.............Endocervix Specimen Comment: LMP / Prev Treat...Conization;[place] / BX Specimen Comment: Other.............. Specimen Comment: No. of containers..01 ThinPrep Vial Helen Zurita SLIDER ASSEMBLER-MANAGER PSYCHOLOGY LAB - PATHOLOG Y/CYTOLOGY ORDERABLES [facility] ([facility]) [address] [place] [address] * HEPATITIS C ANTIBODY (11/11/2018 12:07 PM CDT) HCV Antibody Screen Non Reactive Non Reactive 11/11/2018 1:55 PM CDT [facility] HCV S/C Ratio 0.19 0.00 - 0.79 11/11/2018 1:55 PM CDT [facility] Comment: Umuvvr-gg-pwuwtk ratio (S/CO) <0.80: Non Reactive Blood BLOOD SPECIMEN / Unknown Venipuncture / Unknown 11/11/2018 12:07 PM CDT 11/11/2018 12:56 PM CDT Narrative [facility] - 11/11/2018 1:55 PM CDT Non Reactive - Antibodies to Hepatitis C virus (HCV) were not detected, result does not exclude early acute HCV infection. Helen Ballardbrock SLIDER ASSEMBLER-MANAGER PSYCHOLOGY LAB - CHEMISTR Y ORDERABLES [facility] [address] [place] [address] from Last 3 Months or Most Recently [...] 11:00 AM 03/17/2019 7:31 PM Care Teams Respiratory Clinician Relationship Specialty Start Date End Date Mario Logan MD [address] [place] [place] [address] PCP - General 05/24/19
--- OUTSIDE RECORDS SUMMARY | 2024-05-06 13:41 | XMS_ITS | Clinical Summary ---
Author Organization [facility] Address [address] [place] [address] Care Team Providers Care Rawhide Trimmer Name Role Phone Christofer Stewart MD Primary [...] on file Legal Sex Female 11:53 AM SHELLFISH HARVESTER Gender Identity Not on file Sexual Orientation [...] patient's age to complete this topic Insurance [facility] Advance Directives For more information, please contact: [phone] * Full Code (Latest Code Status on File) Date Activated Date Inactivated Comments 10/20/2023 12:17 PM 10/20/2023 8:58 PM Care Teams Rawhide Trimmer Relationship Specialty Start Date End Date Christofer Stewart MD [address] [facility] [address] SAMEER Ruvalcaba [address] [address] PCP - General Family Medicine 06/23/23
--- OUTSIDE RECORDS SUMMARY | 2024-05-06 13:41 | XMS_ITS | Encounter Summary ---
Author Organization [facility] Address [address] [place] [id number] Care Team Providers Care Back Roller Name Role Phone None, Provider Primary Care Provider Unavaila ble Encounter Details Date Type Department Care Team (Late st Contact Info) Description 07/31/2018 Abstract SFL CONVERSION [address] [place] [address] , Generic Conversion, Social History [...] on filedocumented in this encounter Care Teams Back Roller Relationship Specialty Start Date End Date None, Provider, PCP - General UNKNOWN PHYSICIAN SPECIALTY 07/13/23 documented as of this encounter
--- OUTSIDE RECORDS SUMMARY | 2024-05-06 13:41 | XMS_ITS | Clinical Summary ---
Author Organization [facility] Address [address] [place] [id number] Care Team Providers Care Repair Specialist Name Role Phone None, Provider Primary [...] drink = 0.6 oz pur e alcohol) [facility] Utilities Answer Date Recorded In the past 12 months has e [employer] gas, oil, or water [employer] threatened to shut off services in your [...] time in the past 12 m [place], were you homeless or living in a retirement (including now)? Yes 10/13/2023 Comments No Sex and Gender Information Value Date Recorded Sex Assigned at Not on file Legal Sex Female 11:36 PM CDT Gender Identity Not on file Sexual Orientation Not on file Last Filed Vital Signs Vital Sign Reading Time Taken Comments Blood Pressure 125/80 02/04/2024 6:44 PM SNOWBOARD DESIGNER Pulse 85 02/04/2024 6:44 PM SNOWBOARD DESIGNER Temperature 36.9 C (98.5 F) 02/04/2024 6:44 PM SNOWBOARD DESIGNER Respiratory Rate 16 02/04/2024 6:44 PM SNOWBOARD DESIGNER Oxygen Saturation 100% 02/04/2024 6:44 PM SNOWBOARD DESIGNER Inhaled Oxygen Concentration - - Weight 52.7 kg (116 lb 1.6 oz) 02/04/2024 6:44 P M SNOWBOARD DESIGNER Height 154.9 cm (5' 1 ) 02/04/2024 6:44 PM SNOWBOARD DESIGNER Body Mass Index 21.94 02/04/2024 6:44 PM SNOWBOARD DESIGNER Plan of Treatment Health Maintenance Due Date [...] VARGHESE NON-REACT VARGHESE 10/13/2023 1:41 PM CDT [facility] Comment:HBsAg NOT DETECTED. HEP B CORE IGM NON-REACT VARGHESE NON-REACT VARGHESE 10/13/2023 1:41 PM CDT [facility] Comment: IgM ANTI HBc NOT DETECTED. DOES NOT EXCLUDE THE POSSIBILITY OF EXPOSURE TO OR INFECTION WITH HBV. NO RETEST REQUIRED. HIGH DOSES OF BIOTIN MAY INTERFERE WITH THIS TEST RESULT. CORRELATION TO CLINICAL HISTORY AND PRESENTATION RECOMMENDED. HAV IGM NON-REACT VARGHESE NON-REACT VARGHESE 10/13/2023 1:41 PM CDT [facility] Comment: IgM ANTI HAV NOT DETECTED. DOES NOT EXCLUDE THE POSSIBILITY OF EXPOSURE TO OR INFECTION WITH HAV. LEVELS OF IgM ANTI HAV MAY BE BELOW THE CUTOFF IN EARLY INFECTION. HEPATITIS C AB NON-REACT VARGHESE NON-REACT VARGHESE 10/13/2023 1:42 PM CDT [facility] Comment: ANTIBODIES TO HCV NOT DETECTED. DOES NOT EXCLUDE THE POSSIBILITY OF EXPOSURE TO HCV. 10/13/2023 3:24 AM CDT us Tenisha Cheema MD LABORATORY Final Result [facility] [address] [place] [address], [id number] from Last 3 Months or Most Recently Relevant to Health Maintenance Insurance [employer] Advance Directives Documents on File Type Date Recorded Patient Publicity Agent Expl anation Advance Directives and Living Will 05/10/2015 12:00 AM ADVANCED DIRECTIVES Advance Directives and Living Will 08/06/2013 12:00 AM ADVANCED DIRECTIVES Advance Directives and Living Will 12/28/2012 12:00 AM ADVANCED DIRECTIVES * Full Code (Latest Code Status on File) Date Activated Date Inactivated Comments 10/13/2023 5:53 AM 10/14/2023 10:50 AM Care Teams Repair Specialist Relationship Specialty Start Date End Date None, Provider, MD PCP - General UNKNOWN PHYSICIAN SPECIALTY 07/13/23
--- OUTSIDE RECORDS SUMMARY | 2024-05-06 13:41 | XMS_ITS | Referral Summary ---
Author Organization [facility] Address [address] [place] [address] Care Team Providers Care District Fire Management Officer Name Role Phone Christofer Stewart MD Primary [...] 1.7 cm about 1.5 years ago in [facility] - obtain [place] of [...] on file Legal Sex Female 11:53 AM TICKET COUNTER Gender Identity Not on file Sexual Orientation [...] Plan of Treatment Not on file Insurance [facility] Advance Directives For more information, please contact: [phone] * Full Code (Latest Code Status on File) Date Activated Date Inactivated Comments 10/20/2023 12:17 PM 10/20/2023 8:58 PM Care Teams District Fire Management Officer Relationship Specialty Start Date End Date Christofer Stewart MD [address] [place] A [address] [address] PCP - General Family Medicine 06/23/23
--- OUTSIDE RECORDS SUMMARY | 2024-05-06 13:41 | XMS_ITS | Patient Health Summary ---
Author Organization [facility] Address [address] [place] [address] Care Team Providers Care Chairman President And Chief Executive Officer Name Role Phone Mario Logan MD Primary Care Provider Note from [facility] [place] [facility]non-owned Affiliates and Associated Physician Practices is amultiple site organization consisting of ambulatory clinics and hospital sitesin [place], [place], [place]. This disclosure is being madepursuant to the Care Everywhere program and may not contain all information available regarding this patient. Last updated 17.[facility] Allergies * Codeine(Anaphylaxis) -High Criticality * Naproxen(GI Discomfort) * Penicillins(Urticaria,Swelling) -High Criticality * Ketorolac(Other) Medications * Be aware that medications may not be up to date on this document. Alwaysverify current medications with the patient. * methadone (DOLOPHINE) 10 MG tablet Take 270 mg by mouth once daily * naloxone HCl (NARCAN) 4 MG/0.1ML nasal spray(Started 11/11/2018) [place] 1 spray into the nose as needed [...] maintenance treatment complicating , antepartum ([facility]), Supervisionof high risk , antepartum ([facility]) * CBC W AUTO DIFFERENTIAL(Performed 05/13/2019) * BLOOD GASES CORD GENIA(Performed 05/12/2019) * PATHOLOGY TISSUE EXAM (STL)(Performed 05/12/2019) Performed for delivery delivered ([facility]) * NEURAXIAL BLOCK(Performed 05/12/2019) * SECTION (EMERGENCY)(Performed 05/12/2019) * URINE DRUG SCREEN IMMUNOASSAY(Performed 05/12/2019) Performed for Methadone maintenance treatment complicating , antepartum ([facility]) * PREPARE RBC LEUKOREDUCED UNIT(Performed 05/12/2019) * TYPE + SCREEN PANEL(Performed 05/12/2019) Performed for Non-reactive NST (non-stress test) * CBC W AUTO DIFFERENTIAL(Performed 05/12/2019) Performed for Non-reactive NST (non-stress test) * GLUCOSE PROTEIN KETONE URINE - POINT OF CAR(Performed 05/12/2019) Performed for Supervision of high risk in second trimester ([facility]), Methadone maintenance treatment complicating , antepartum ([facility]) * URINE DRUG SCREEN IMMUNOASSAY(Performed 05/12/2019) Performed for Evaluate anatomy not seen on prior sonogram, Antepartum multigravida of advanced maternal age ([facility]) * GLUCOSE PROTEIN KETONE URINE - POINT OF CAR(Performed 05/11/2019) Performed for Supervision of high risk in second trimester ([facility]) * SONOGRAM - COMPLETE(Performed 05/11/2019) * URINE DRUG SCREEN IMMUNOASSAY(Performed 05/11/2019) Performed for Supervision of high risk in second trimester ([facility]) * COMPREHENSIVE METABOLIC PANEL(Performed 05/05/2019) Performed for RUQ pain * CBC W AUTO DIFFERENTIAL(Performed 05/05/2019) Performed for Anemia during ([facility]) * CULTURE STREP B(Performed 05/05/2019) Performed for Supervision of high risk in third trimester ([facility]) * URINE DRUG SCREEN IMMUNOASSAY(Performed 05/05/2019) Performed for Methadone maintenance treatment complicating , antepartum ([facility]) * GLUCOSE PROTEIN KETONE URINE - POINT OF CAR(Performed 05/05/2019) Performed for Supervision of high risk in third trimester ([facility]) * SONOGRAM - COMPLETE(Performed 04/21/2019) * GLUCOSE PROTEIN KETONE URINE - POINT OF CAR(Performed 04/21/2019) Performed for Supervision of high risk in third trimester ([facility]), Methadone maintenance treatment complicating , antepartum ([facility]) * URINE DRUG SCREEN IMMUNOASSAY(Performed 04/21/2019) Performed for Evaluate anatomy not seen on prior sonogram, Antepartum multigravida of advanced maternal age ([facility]) * URINE MICROSCOPIC ONLY REFLEX TO CULTURE(Performed 04/17/2019) Performed for Methadone maintenance treatment complicating , antepartum ([facility]) * URINALYSIS REFLEX MICROSCOPIC REFLEX CULTURE(Performed 04/17/2019) Performed for Methadone maintenance treatment complicating , antepartum ([facility]) * CULTURE URINE(Performed 04/17/2019) Performed for Methadone maintenance treatment complicating , antepartum ([facility]) * IMAGING/RADIOLOGY/XRAY RESULTS ORDER(Performed 04/07/2019) * GLUCOSE PROTEIN KETONE URINE - POINT OF CAR(Performed 04/07/2019) Performed for Supervision of high risk in third trimester ([facility]), Methadone maintenance treatment complicating , antepartum ([facility]) * URINE DRUG SCREEN IMMUNOASSAY(Performed 04/07/2019) Performed for Evaluate anatomy not seen on prior sonogram, Multigravida of advanced maternal age infirst trimester ([facility]) * IMAGING/RADIOLOGY/XRAY RESULTS ORDER(Performed 04/07/2019) * AMB CONSULT TO CARDIOLOGY(Performed 04/01/2019) Performed for Abnormal EKG, Dizziness * NONSTRESS TEST(Performed 03/29/2019) Performed for Nausea and vomiting during ([facility]) * URINE DRUG SCREEN IMMUNOASSAY(Performed 03/29/2019) Performed for Nausea and vomiting during ([facility]), Supervision of high risk in third trimester ([facility]), Methadone maintenance treatment complicating , antepartum ([facility]) * SONOGRAM - COMPLETE(Performed 03/24/2019) * GLUCOSE PROTEIN KETONE URINE - POINT OF CAR(Performed 03/24/2019) Performed for Methadone maintenance treatment complicating , antepartum ([facility]) * URINE DRUG SCREEN IMMUNOASSAY(Performed 03/24/2019) Performed for Evaluate anatomy not seen on prior sonogram, Antepartum multigravida of advanced maternal age ([facility]) * NONSTRESS TEST(Performed 03/17/2019) Performed for Uterine contractions during ([facility]) * RESPIRATORY PATHOGEN PANEL BY PCR(Performed 03/17/2019) Performed for Nausea and vomiting during ([facility]), Shortness of breath * CT ANGIO CHEST PULM EMBOLISM(Performed 03/17/2019) Performed for Shortness of breath * EKG 12-LEAD(Performed 03/17/2019) Performed for Nausea and vomiting during ([facility]) * ECHOCARDIOGRAM 2D WITH DOPPLER(Performed 03/17/2019) Performed for Shortness of breath * XR CHEST 1VW PORTABLE(Performed 03/17/2019) Performed for Nausea and vomiting during ([facility]) * T4 FREE(Performed 03/17/2019) Performed for Nausea and vomiting during ([facility]) * B-TYPE NATRIURETIC PEPTIDE(Performed 03/17/2019) Performed for Nausea and vomiting during ([facility]) * URINE MICROSCOPIC ONLY REFLEX TO CULTURE(Performed 03/17/2019) Performed for Nausea and vomiting during ([facility]) * URINALYSIS REFLEX MICROSCOPIC REFLEX CULTURE(Performed 03/17/2019) Performed for Nausea and vomiting during ([facility]) * CK BLOOD(Performed 03/17/2019) Performed for Nausea and vomiting during ([facility]) * TROPONIN I(Performed 03/17/2019) Performed for Nausea and vomiting during ([facility]) * PHOSPHORUS BLOOD(Performed 03/17/2019) Performed for Nausea and vomiting during ([facility]) * MAGNESIUM BLOOD(Performed 03/17/2019) Performed for Nausea and vomiting during ([facility]) * TSH(Performed 03/17/2019) Performed for Nausea and vomiting during ([facility]) * COMPREHENSIVE METABOLIC PANEL(Performed 03/17/2019) Performed for Nausea and vomiting during ([facility]) * CBC W AUTO DIFFERENTIAL(Performed 03/17/2019) Performed for Nausea and vomiting during ([facility]) * CULTURE URINE(Performed 03/17/2019) Performed for Nausea and vomiting during ([facility]) * GLUCOSE PROTEIN KETONE URINE - POINT OF CAR(Performed 03/17/2019) Performed for Supervision of high risk in third trimester ([facility]), Methadone maintenance treatment complicating , antepartum ([facility]) * URINE DRUG SCREEN IMMUNOASSAY(Performed 03/17/2019) Performed for Evaluate anatomy not seen on prior sonogram, Antepartum multigravida of advanced maternal age ([facility]) * NONSTRESS TEST(Performed 03/10/2019) Performed for Dizziness, Nausea and vomiting during ([facility]), Supervision of high risk in second trimester ([facility]) * IRON + TRANSFERRIN PANEL(Performed 03/10/2019) Performed for Anemia during in third trimester ([facility]) * FERRITIN(Performed 03/10/2019) Performed for Anemia during in third trimester ([facility]) * COMPREHENSIVE METABOLIC PANEL(Performed 03/10/2019) Performed for Supervision of high risk in second trimester ([facility]) * GLUCOSE CHALLENGE(Performed 03/10/2019) Performed for Supervision of high risk in second trimester ([facility]) * HIV-1 HIV-2 ANTIBODY + HIV P24 AG PANEL(Performed 03/10/2019) Performed for Supervision of high risk in second trimester ([facility]) * SYPHILIS ANTIBODY CASCADING REFLEX(Performed 03/10/2019) Performed for Supervision of high risk in second trimester ([facility]) * CBC W AUTO DIFFERENTIAL(Performed 03/10/2019) Performed for Supervision of high risk in second trimester ([facility]) * URINE MICROSCOPIC ONLY REFLEX TO CULTURE(Performed 03/10/2019) Performed for Flank pain * URINALYSIS REFLEX MICROSCOPIC REFLEX CULTURE(Performed 03/10/2019) Performed for Flank pain * CULTURE STREP GROUP A(Performed 03/10/2019) Performed for Supervision of high risk in second trimester ([facility]), Sore throat * CULTURE URINE(Performed 03/10/2019) Performed for Flank pain * STREP A SCREEN DIRECT W RFLX STREP A CULTURE(Performed 03/10/2019) Performed for Supervision of high risk in second trimester ([facility]), Sore throat * SONOGRAM - TRANSVAGINAL(Performed 03/10/2019) * GLUCOSE PROTEIN KETONE URINE - POINT OF CAR(Performed 03/10/2019) Performed for Supervision of high risk in second trimester ([facility]) * URINE DRUG SCREEN IMMUNOASSAY(Performed 03/10/2019) Performed for Evaluate anatomy not seen on prior sonogram, Antepartum multigravida of advanced maternal age ([facility]) * EKG 12-LEAD(Performed 03/10/2019) Performed for Supervision of high risk , antepartum ([facility]), Methadone maintenance treatmentcomplicating , antepartum ([facility]) * URINE MICROSCOPIC ONLY REFLEX TO CULTURE(Performed 03/06/2019) Performed for Vaginal discharge during , antepartum ([facility]) * URINALYSIS REFLEX MICROSCOPIC REFLEX CULTURE(Performed 03/06/2019) Performed for Vaginal discharge during , antepartum ([facility]) * URINE DRUG SCREEN IMMUNOASSAY(Performed 03/06/2019) Performed for Methadone maintenance treatment complicating , antepartum ([facility]), Supervisionof high risk in second trimester ([facility]) * CULTURE URINE(Performed 03/06/2019) Performed for Vaginal discharge during , antepartum ([facility]) * KETONES URINE - POINT OF CARE(Performed 03/06/2019) * URINE MICROSCOPIC ONLY REFLEX TO CULTURE(Performed 02/26/2019) Performed for Uterine contractions during ([facility]) * URINALYSIS REFLEX MICROSCOPIC REFLEX CULTURE(Performed 02/26/2019) Performed for Uterine contractions during ([facility]) * CULTURE URINE(Performed 02/26/2019) Performed for Uterine contractions during ([facility]) * CHLAMYDIA + GC AMPLIFIED PROBE(Performed 02/26/2019) Performed for Uterine contractions during ([facility]) * TRICHOMONAS RAPID TEST(Performed 02/26/2019) Performed for Uterine contractions during ([facility]) * SONOGRAM - COMPLETE(Performed 02/24/2019) * GLUCOSE PROTEIN KETONE URINE - POINT OF CAR(Performed 02/24/2019) Performed for Supervision of high risk in second trimester ([facility]) * URINE DRUG SCREEN IMMUNOASSAY(Performed 02/24/2019) Performed for Supervision of high risk in second trimester ([facility]) * SONOGRAM - TRANSVAGINAL(Performed 01/27/2019) * GLUCOSE PROTEIN KETONE URINE - POINT OF CAR(Performed 01/27/2019) Performed for Supervision of high risk in second trimester ([facility]), Methadone maintenance treatment complicating , antepartum ([facility]) * URINE DRUG SCREEN IMMUNOASSAY(Performed 01/27/2019) Performed for Supervision of high risk in second trimester ([facility]), Methadone maintenance treatment complicating , antepartum ([facility]) * SONOGRAM - COMPLETE(Performed 01/06/2019) * GLUCOSE PROTEIN KETONE URINE - POINT OF CAR(Performed 01/06/2019) Performed for Supervision of high risk in second trimester ([facility]), Methadone maintenance treatment complicating , antepartum ([facility]) * URINE DRUG SCREEN IMMUNOASSAY(Performed 01/06/2019) Performed for Supervision of high risk in second trimester ([facility]), Methadone maintenance treatment complicating , antepartum ([facility]) * TRICHOMONAS VAGINALIS AMPLIFIED PROBE(Performed 12/30/2018) Performed for Supervision of high risk in second trimester ([facility]), Abdominal cramping affecting ([facility]) * CHLAMYDIA + GC AMPLIFIED PROBE(Performed 12/30/2018) Performed for Abdominal cramping affecting ([facility]), Supervision of high risk in second trimester ([facility]) * BACTERIAL VAGINOSIS + YEAST SMEAR(Performed 12/30/2018) Performed for Abdominal cramping affecting ([facility]), Supervision of high risk in second trimester ([facility]) * FENTANYL URINE(Performed 12/30/2018) Performed for Supervision of high risk in second trimester ([facility]), Methadone maintenance treatment complicating , antepartum ([facility]), Obesity affecting in second trimester ([facility]) * URINE MICROSCOPIC ONLY(Performed 12/30/2018) Performed for Supervision of high risk in second trimester ([facility]), Abdominal cramping affecting ([facility]) * URINALYSIS REFLEX TO MICROSCOPIC NO CULTURE(Performed 12/30/2018) Performed for Supervision of high risk in second trimester ([facility]), Abdominal cramping affecting ([facility]) * CULTURE URINE(Performed 12/30/2018) Performed for Supervision of high risk in second trimester ([facility]), Abdominal cramping affecting ([facility]) * SONOGRAM - TRANSVAGINAL(Performed 12/30/2018) * GLUCOSE PROTEIN KETONE URINE - POINT OF CAR(Performed 12/30/2018) Performed for Supervision of high risk in second trimester ([facility]) * URINE DRUG SCREEN IMMUNOASSAY(Performed 12/30/2018) Performed for Antepartum multigravida of advanced maternal age ([facility]) * URINE MICROSCOPIC ONLY REFLEX TO CULTURE(Performed 12/09/2018) Performed for Cramping affecting , antepartum ([facility]) * FENTANYL URINE(Performed 12/09/2018) Performed for Methadone maintenance treatment complicating , antepartum ([facility]) * URINALYSIS REFLEX MICROSCOPIC REFLEX CULTURE(Performed 12/09/2018) Performed for Cramping affecting , antepartum ([facility]) * CULTURE URINE(Performed 12/09/2018) Performed for Cramping affecting , antepartum ([facility]) * SONOGRAM - COMPLETE(Performed 12/09/2018) * GLUCOSE PROTEIN KETONE URINE - POINT OF CAR(Performed 12/09/2018) Performed for Supervision of high risk in second trimester ([facility]) * URINE DRUG SCREEN IMMUNOASSAY(Performed 12/09/2018) Performed for Antepartum multigravida of advanced maternal age ([facility]) * CHLAMYDIA + GC AMPLIFIED PROBE(Performed 11/11/2018) Performed for Supervision of high risk , antepartum ([facility]) * PAP LB HPV HR DNA(Performed 11/11/2018) Performed for Cervical cancer screening * TRICHOMONAS RAPID TEST(Performed 11/11/2018) Performed for Supervision of high risk , antepartum ([facility]) * TYPE + SCREEN PANEL(Performed 11/11/2018) Performed for Supervision of high risk , antepartum ([facility]) * HEMOGLOBIN A1C(Performed 11/11/2018) Performed for Supervision of high-risk of elderly multigravida (HCC), History of diet controlled gestational diabetes mellitus (GDM), Obesity (BMI 30-39.9) * RUBELLA ANTIBODY IGG(Performed 11/11/2018) Performed for Supervision of high risk , antepartum ([facility]) * SYPHILIS ANTIBODY CASCADING REFLEX(Performed 11/11/2018) Performed for Supervision of high risk , antepartum ([facility]) * HEPATITIS B SURFACE ANTIGEN W RFLX CONFIRMATION(Performed 11/11/2018) Performed for Supervision of high risk , antepartum ([facility]) * CBC W AUTO DIFFERENTIAL(Performed 11/11/2018) Performed for Supervision of high risk , antepartum ([facility]) * FERRITIN(Performed 11/11/2018) Performed for Supervision of high risk , antepartum ([facility]) * HEPATITIS C ANTIBODY(Performed 11/11/2018) Performed for Supervision of high risk , antepartum ([facility]) * HEPATITIS B SURFACE ANTIGEN W RFLX CONFIRMATION(Performed 11/11/2018) Performed for Supervision of high risk , antepartum ([facility]) * CYSTIC FIBROSIS MUTATION PANEL(Performed 11/11/2018) Performed for Supervision of high risk , antepartum ([facility]) * COMPREHENSIVE METABOLIC PANEL(Performed 11/11/2018) Performed for Supervision of high risk , antepartum ([facility]) * HEMOGLOBIN ELECTROPHORESIS(Performed 11/11/2018) Performed for Supervision of high risk , antepartum ([facility]) * HIV-1 HIV-2 ANTIBODY + HIV P24 AG PANEL(Performed 11/11/2018) Performed for Supervision of high risk , antepartum ([facility]) * GLUCOSE CHALLENGE(Performed 11/11/2018) Performed for Supervision of high-risk of elderly multigravida ([facility]), History of diet controlled gestational diabetes mellitus (GDM) * URINE MICROSCOPIC ONLY(Performed 11/11/2018) Performed for Supervision of high risk , antepartum ([facility]) * URINALYSIS REFLEX TO MICROSCOPIC NO CULTURE(Performed 11/11/2018) Performed for Supervision of high risk , antepartum ([facility]) * SONOGRAM - COMPLETE(Performed 11/11/2018) * [...] - 10.7 x10E9/L 05/25/2019 4:05 PM CDT [facility] WBC Corrected 05/25/2019 4:05 PM CDT [facility] RBC 3.44(L) 3.80 - 5.20 x10E12/L 05/25/2019 4:05 PM CDT [facility] Hemoglobin 9.4(L) 12.0 - 15.6 gm/dL 05/25/2019 4:05 PM CDT [facility] Hematocrit 30.8(L) 35.9 - 45.5 % 05/25/2019 4:05 PM CDT [facility] MCV 89.5 80.7 - 98.3 fl 05/25/2019 4:05 PM CDT [facility] MCH 27.3 26.7 - 34.0 pg 05/25/2019 4:05 PM CDT [facility] MCHC 30.5(L) 30.8 - 35.9 gm/dL 05/25/2019 4:05 PM CDT [facility] Platelet Count 508(H) 153 - 416 x10E9/L 05/25/2019 4:05 PM CDT [facility] RDW-CV 14.6 12.1 - 14.9 % 05/25/2019 4:05 PM CDT [facility] MPV 9.5 9.4 - 12.9 fl 05/25/2019 4:05 PM CDT [facility] Neutrophils % 62.6 44.0 - 73.0 % 05/25/2019 4:05 PM CDT [facility] Lymphocytes % 26.2 20.0 - 43.0 % 05/25/2019 4:05 PM CDT [facility] Monocytes % 9.0 5.0 - 13.0 % 05/25/2019 4:05 PM CDT [facility] Eosinophils % 1.2 0.0 - 6.0 % 05/25/2019 4:05 PM CDT [facility] Basophils % 0.6 0.0 - 2.0 % 05/25/2019 4:05 PM CDT [facility] Immature Granulocytes 0.4 0 - 1 % 05/25/2019 4:05 PM CDT [facility] Neutrophil Absolute 5.22 2.01 - 7.14 x10E9/L 05/25/2019 4:05 PM CDT [facility] Lymphocytes Absolute 2.18 1.07 - 3.94 x10E9/L 05/25/2019 4:05 PM CDT [facility] Monocytes Absolute 0.75 0.26 - 1.07 x10E9/L 05/25/2019 4:05 PM CDT [facility] Eosinophils Absolute 0.10 0 - 0.47 x10E9/L 05/25/2019 4:05 PM CDT [facility] Basophils Absolute 0.05 0 - 0.08 x10E9/L 05/25/2019 4:05 PM CDT [facility] Immature Granulocytes Absolute 0.03 0.00 - 0.06 x10E9/L 05/25/2019 4:05 PM CDT [facility] nRBC Auto 0 /100 WBC 05/25/2019 4:05 PM CDT [facility] Blood BLOOD SPECIMEN / Unknown Venipuncture / Unknown 05/25/2019 3:47 PM CDT 05/25/2019 4:00 PM CDT Becky Saab MD LAB - HEMATOLOGY ORD ERABLES [facility] [address], [place] [id number] * (ABNORMAL) COMPREHENSIVE METABOLIC PANEL (05/25/2019 3:47 PM CDT) Only the most recent of5 resultswithin the time period is included. Glucose 80 70 - 105 mg/dL 05/25/2019 4:21 PM CDT [facility] Sodium 139 136 - 145 mmol/L 05/25/2019 4:21 PM CDT [facility] Potassium 4.4 3.5 - 5.1 mmol/L 05/25/2019 4:21 PM CDT [facility] Chloride 103 98 - 107 mmol/L 05/25/2019 4:21 PM T [facility] CO2 30 23 - 31 mmol/L 05/25/2019 4:21 PM T [facility] Calcium 8.9 8.4 - 10.4 mg/dL 05/25/2019 4:21 PM T [facility] Anion Gap 6(L) 8 - 16 mmol/L 05/25/2019 4:21 PM T [facility] BUN 17 7 - 18.7 mg/dL 05/25/2019 4:21 PM T [facility] Creatinine 0.89 0.57 - 1.11 mg/dL 05/25/2019 4:21 PM [facility] Alkaline Phosphatase 295(H) 40 - 150 U/L 05/25/2019 4:21 PM [facility] ALT 62(H) 0 - 61 U/L 05/25/2019 4:21 PM T [facility] AST 27 5 - 34 U/L 05/25/2019 4:21 PM T [facility] Protein Total 7.0 6.4 - 8.3 gm/dL 05/25/2019 4:21 PM [facility] Albumin 3.4(L) 3.5 - 5.2 gm/dL 05/25/2019 4:21 PM [facility] Bilirubin Total 0.2 0.2 - 1.0 mg/dL 05/25/2019 4:21 PM [facility] [facility] eGFR by MDRD >60 >60 mL/min/1.7 3m2 05/25/2019 4:21 PM [facility] eGFR by MDRD >60 >60 mL/min/1.7 3m2 05/25/2019 4:21 PM [facility] Blood BLOOD SPECIMEN / Unknown Venipuncture / Unknown 05/25/2019 3:47 PM CDT 05/25/2019 4:00 PM CDT Becky Saab MD LAB - CHEMISTRY RM MOSS Performing Organization Address [facility]/ZIP Co de Phone Number [facility] [address] [place] [address] * IMAGING RADIOLOGY XRAY RESULTS ORDER (05/17/2019 [...] (Bezet) 416 ms [facility] MUSE Calculated P Zwingle 35 degrees [facility] MUSE Calculated R Zwingle 37 degrees [facility] MUSE Calculated T Zwingle 35 degrees [facility] MUSE Interpretation EKG NORMAL SINUS RHYTHM POSSIBLE LEFT ATRIAL ENLARGEMENT BORDERLINE ECG WHEN COMPARED WITH ECG OF 17-MAR-2019 13:33, NO SIGNIFICANT CHANGE WAS FOUND Confirmed by Tanvir Loya ([id number]) on 05/13/2019 11:09:05 PM [facility] MUSE 05/13/2019 10:2 7 AM CDT 05/13/2019 11:09 PM CDT Daylin Toro MD ECG ORDERABLES [facility] MUSE * (ABNORMAL) BLOOD GASES CORD [...] 05/12/2019 4:05 PM CDT [facility] RESP THERAPY Popcorn Vendor ID [id number] 05/12/2019 4:05 PM CDT [facility] RESP THERAPY Blood CORD BLOOD SPECIMEN / Unknown 05/12/2019 3:55 PM CDT 05/12/2019 3:55 PM CDT Vinod Dent MD LAB - BLOOD GASES OR DERABLES [facility] RESP THERAPY [address] [place] [address] * GROSS + MICRO EXAM (STL) (05/12/2019 3:53 PM CDT) Only the most recent of3 resultswithin the time period is included. Case Report Surgical Pathology Report Case: [id number] Authorizing Provider: Celestine Álvarez MD Collected: 05/12/2019 03:53 PM Ordering Location: [facility] 5 LDR Received: 05/13/2019 06:00 AM Pathologist: Brandin Chase MD Specimens: A) - Fallopian Tube B) - Fallopian Tube 05/16/2019 11:27 AM CDT [facility] Final Diagnosis Fallopian tube, right, tubal ligation: --Negative for significant histopathologic abnormalities Fallopian tube, left, tubal ligation: --Negative for significant histopathologic abnormalities 05/16/2019 11:27 AM CDT [facility] Clinical History The patient is a 39-year-old woman who underwent tubal ligation. 05/16/2019 11:27 AM [facility] Gross Description The requisition and specimen labels are identified with the patient's name, Jj Slater. Received in formalin specimen A, right fallopian tube , is a 1.8 cm in length x 0.8 cm in diameter segment of fallopian tube. The serosa is cowan-brown and smooth. The specimen is serially sectioned to show an unremarkable pinpoint lumen. Clinical Secretary sections are submitted in cassette A1. Received in formalin specimen B, left fallopian tube , is a 1.5 cm in length x 0.6 cm in diameter segment of fallopian tube. The serosa is cowan-brown and smooth. The specimen is serially sectioned to show an unremarkable pinpoint lumen. The specimen is entirely submitted in cassette B1. MIKKI/pasha 05/16/2019 11:27 AM [facility] Microscopic Description Complete cross sections of both fallopian tubes are identified. 05/16/2019 11:27 AM [facility] Disclaimer All histochemical and/or immunohistochemical results are interpreted with controls that demonstrate appropriate staining reactions before reporting results. Note on use of immunocytochemistry reagents: This test was developed and its performance characteristic determined by [facility], Department of Laboratory Medicine. It has [...] be interpreted with caution. 05/16/2019 11:27 AM [facility] Embedded Images 05/16/2019 11:27 AM [facility] Pathology/Cytology FALLOPIAN TUBE PART / Unknown 05/12/2019 3:53 PM CDT 05/13/2019 6:00 AM CDT Miscellaneous samples (specimen) FALLOPIAN TUBE PART / Unknown 05/12/2019 3:59 PM CDT 05/13/2019 6:00 AM CDT Celestine Álvarez MD LAB - PATHOLOGY/CYTO LOGY ORDERABLES [facility] [address] [place] [address] * Neuraxial Block (05/12/2019 3:31 PM CDT) [...] detected Not detected 05/12/2019 3:15 PM CDT [facility] Barbiturates Screen Urine Not detected Not detected 05/12/2019 3:15 PM CDT [facility] Benzodiazepines Screen Urine Not detected Not detected 05/12/2019 3:15 PM CDT [facility] Cannabinoids Screen Urine Not detected Not detected 05/12/2019 3:15 PM CDT [facility] Cocaine Screen Urine Not detected Not detected 05/12/2019 3:15 PM CDT [facility] Fentanyl Urine Not detected Not detected 05/12/2019 3:15 PM CDT [facility] Methadone Screen Urine Detected(A) Not detected 05/12/2019 3:15 PM CDT [facility] Opiate Screen Urine Not detected Not detected 05/12/2019 3:15 PM CDT [facility] Phencyclidine Screen Urine Not detected Not detected 05/12/2019 3:15 PM CDT [facility] Urine URINE / Unknown Collection / Unknown 05/12/2019 2:50 PM CDT 05/12/2019 2:52 PM CDT Narrative [facility] - 05/12/2019 3:15 PM CDT [...] MD LAB - URINE CHEMISTR Y ORDERABLES [facility] [address] [place] [address] * PREPARE (CROSSMATCH) RBC UNIT(S), 2 Units (05/12/2019 2:00 PM CDT) Pathologist [facility] Product Code [id number] [facility] Unit Donor # [id number] S [facility] B[facility] ABO Donor Type A [facility] Rh Type Unit POS [facility] Unit Status Ret'd [facility] ABO Rh Type Unit APOS [facility] Donor Unit Expiration Date [id number] [facility] Blood Type Barcode 6200 [facility] Product Code [id number] [facility] Unit Donor # [id number] S [facility] BLOOD [facility] LAB ABO Donor Type A [facility] Rh Type Unit POS [facility] Unit Status Ret'd [facility] OD [facility]ANK [facility] ABO Rh Type Unit APOS [facility] Donor Unit Expiration Date [id number] [facility] Blood Type Barcode 6200 [facility] Blood Bank BLOOD SPECIMEN / Unknown 05/12/2019 2:00 PM CDT Rain Loya MD LAB - BLOOD BANK ORD ERABLES Performing Organization Address City/[facility]/ZIP Co de Phone Number [facility] [address] [place] [address] * TYPE + SCREEN PANEL (05/12/2019 11:02 AM CDT) Only the most recent of5 resultswithin the time period is included. ABO A 05/12/2019 11:34 AM CDT [facility] Rh Type Positive 05/12/2019 11:34 AM CDT [facility] Comment:History checked. Antibody Screen Negative 05/12/2019 11:34 AM CDT [facility] Blood Bank BLOOD SPECIMEN / Unknown Venipuncture / Unknown 05/12/2019 11:02 AM CDT 05/12/2019 11:10 AM CDT Ellen Childs MD LAB - BLOOD BANK OR DERABLES [facility] BLOOD [facility] [address] [place] [address] * GLUCOSE PROTEIN KETONE URINE - POINT [...] 05/12/2019 8 :50 AM CDT Ivana Thomas CLINICAL SERVICES SPECIALIST-JIGGER OPERATOR LAB - POINT OF CARE ORDERABLES [facility] POCT TESTING [address] [place] [address], [facility] [phone] * SONOGRAM - COMPLETE (05/11/2019 8:43 AM CDT) Only the most recent of9 resultswithin the time period is included. Anatomical Region Laterality Modality Other 05/11/2019 8:43 AM CDT Narrative 05/11/2019 10:35 AM CDT [facility] PHONE: FAX: Pat. Name: JJ SLATER Pat. No: [id number] Study Date: 05/11/2019 8:43am , Age: 14 1980, 39 Height: 61 in Weight: 175 lb LMP: Unknown GA by Base: 36w2d NEGRO: 06/06/2019 GA by US: 35w2d NEGRO: 06/13/2019 GA Selected: 36w2d (From [facility]) NEGRO: 06/06/2019 Referring MD: Kimberli Galloway MD Program Coordinator For Residence Life: Silvina Fair RDMS CPT4: 33764 BMI: 33.06 Hist/Ind: AMA, low-risk NIPT Opioid dependence, on methadone History of LEEP G5 & G7: Late (36 week) PTD x 2 G5: Macrosomia History of GDM Class I obesity MEASUREMENTS & AGE GROWTH EVALUATION Measurement GA Range Srce %for GA Ratios ----- ---- ------- BPD 8.4 cm 33w5d (62l0r-76y5p) Hadl BPD 4% FL/BPD 0.81 (0.71 - 0.87) HC 32.6 cm 37w0d (46m9y-38x9e) Hadl HC 35% FL/AC 0.21 (0.20 - 0.24) AC 32.9 cm 36w5d (10o6a-86r6z) Hadl AC 74% HC/AC 0.99 (0.92 - 1.11) FL 6.8 cm 35w0d (01p4w-36b2k) Hadl FL 15% CI 0.71 (0.70 - 0.86) HL 6.3 cm 36w3d (17v4g-38b8m) Eron HL 51% GA for sonogram 35w2d (57x3n-55b0a) Weight Estimate: based on (BPD,HC,AC,FL) [place] Weight: [...] <Electronic Signature> 05/11/2019 10:35am Kimberli Galloway MD [facility] ORDERABLES * CULTURE STREP B (05/05/2019 10:21 AM CDT) Only the most recent of2 resultswithin the time period is included. Culture Strep B Negative for beta-hemolytic Streptococcus Group B KENNY 05/08/2019 8:43 AM CDT [facility] Microbiology MISCELLANEOUS SAMPLES / Unknown Collection / Unknown 05/05/2019 10:21 AM CDT 05/05/2019 10:35 AM CDT Ivana Thomas CLINICAL SERVICES SPECIALIST-JIGGER OPERATOR LAB - MICROBIOL OGY ORDERABLES [facility] [address] [place] [phone] * (ABNORMAL) URINE MICROSCOPIC ONLY REFLEX TO CULTURE (04/17/2019 3:16 PM EXPORT SPECIALIST) Only the most recent of6 resultswithin the time period is included. Reflex Status Culture to follow 04/17/2019 3:57 PM EXPORT SPECIALIST [facility] RBC UA 0-2 None Seen, 0-2, 3-5 # /hpf 04/17/2019 3:57 PM EXPORT SPECIALIST [facility] WBC UA 0-5 None Seen, 0-5 # /hpf 04/17/2019 3:57 PM EXPORT SPECIALIST [facility] Bacteria UA None Seen None Seen 04/17/2019 3:57 PM EXPORT SPECIALIST [facility] Squamous Epithelial Cells 6-10(A) None Seen, 0-2, 3-5 /hpf 04/17/2019 3:57 PM EXPORT SPECIALIST [facility] Mucus UA 4+ /LPF 04/17/2019 3:57 PM EXPORT SPECIALIST [facility] Urine URINE SPECIMEN OBTAINED BY CLEAN CATCH PROCEDURE / Unknown Collection / Unknown 04/17/2019 3:16 PM EXPORT SPECIALIST 04/17/2019 3:26 PM EXPORT SPECIALIST Narrative [facility] - 04/17/2019 3:57 PM EXPORT SPECIALIST Dory Guadarrama MD LAB - URINALYSIS ORD ERABLES [facility] [address] [place] [address] * (ABNORMAL) URINALYSIS REFLEX MICROSCOPIC REFLEX CULTURE (04/17/2019 3:16 PM EXPORT SPECIALIST) Only the most recent of6 resultswithin the time period is included. Color UA Liseth(A) Straw, Yellow 04/17/2019 3:31 PM EXPORT SPECIALIST [facility] Clarity UA Slt Cloudy(A) Clear 04/17/2019 3:31 PM EXPORT SPECIALIST [facility] Glucose UA Negative Negative 04/17/2019 3:31 PM EXPORT SPECIALIST [facility] Bilirubin UA Negative Negative 04/17/2019 3:31 PM EXPORT SPECIALIST [facility] Ketone UA Trace(A) Negative 04/17/2019 3:31 PM EXPORT SPECIALIST [facility] Specific [place] UA 1.020 1.005 - 1.030 04/17/2019 3:31 PM EXPORT SPECIALIST [facility] Blood UA Negative Negative 04/17/2019 3:31 PM EXPORT SPECIALIST [facility] pH UA 7.0 5.0 - 8.0 pH 04/17/2019 3:31 PM EXPORT SPECIALIST [facility] Protein UA 1+(A) Negative 04/17/2019 3:31 PM EXPORT SPECIALIST [facility] Urobilinogen UA 2.0(A) Negative mg/dL 04/17/2019 3:31 PM EXPORT SPECIALIST [facility] Nitrite UA Negative Negative 04/17/2019 3:31 PM EXPORT SPECIALIST [facility] Leukocyte UA 1+(A) Negative 04/17/2019 3:31 PM EXPORT SPECIALIST [facility] Urine Microscopy Urine microscopy to follow 04/17/2019 3:31 PM EXPORT SPECIALIST [facility] Reflex Status Culture to follow 04/17/2019 3:31 PM EXPORT SPECIALIST [facility] Urine URINE SPECIMEN OBTAINED BY CLEAN CATCH PROCEDURE / Unknown Collection / Unknown 04/17/2019 3:16 PM EXPORT SPECIALIST 04/17/2019 3:26 PM EXPORT SPECIALIST Narrative [facility] - 04/17/2019 3:31 PM EXPORT SPECIALIST Ascorbic Acid can cause false negative urine strip tests for blood, glucose, nitrite, and bilirubin. Dory Guadarrama MD LAB - URINALYSIS ORD ERABLES Performing Organization Address City/[facility]/ZIP Co de Phone Number [facility] [address] [place] [address] * CULTURE URINE (04/17/2019 3:16 PM EXPORT SPECIALIST) Only the most recent of8 resultswithin the time period is included. Culture Urine 10,000-50,000 CFU/mL urogenital stefany KENNY 04/19/2019 6:52 AM EXPORT SPECIALIST [facility] Urine URINE SPECIMEN OBTAINED BY CLEAN CATCH PROCEDURE / Unknown Collection / Unknown 04/17/2019 3:16 PM EXPORT SPECIALIST 04/17/2019 3:26 PM EXPORT SPECIALIST Dory Guadarrama MD LAB - MICROBIOLOGY O RDERABLES [facility] [address] [place] [address], [facility] [phone] * CARDIOLOGY CONSULT (04/01/2019 5:08 PM EXPORT SPECIALIST) Ivana Thomas CLINICAL SERVICES SPECIALIST-JIGGER OPERATOR OUTPATIENT CONS ULT * NONSTRESS TEST (03/29/2019 5:31 PM EXPORT SPECIALIST) Narrative Mone Malave MD - 03/29/2019 5:31 PM EXPORT SPECIALIST Radha Guadarrama MD 04/08/2019 10:47 PM Name: [...] Schwab RN Non-Stress Test (NST) Jj Slater [id number] 04/08/2019 10:46 PM Indications: nausea and vomiting [...] S * NONSTRESS TEST (03/17/2019 6:22 PM EXPORT SPECIALIST) Narrative Kimberli Galloway MD - 03/17/2019 6:22 PM EXPORT SPECIALIST Michelle Mcdaniel MD 03/21/2019 8:08 AM Name: Jj Slater Date of : 1980 Today's Date: 03/17/2019 NST RESULTS ([facility]OS[facility]) OBJECTIVE FINDINGS , , , BP: 114/58 NST Indication(s): Other (Comment)(SOB) Uterine Irritability: No Contractions: Not present OBJECTIVE FINDINGS Movement: Present Monitoring Mode: External Baseline: 135 BPM Variability: Moderate Decelerations: None Accelerations: Yes OTHER INFORMATION 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 Progress Note Indications: SOB Assessment/ Non-Stress Test Baseline: 125 beats/minute mod variability Reactive Contractions: none Decelerations: none Michelle Mcdaniel MD 03/21/2019 8:08 AM Dory Guadarrama MD OB [facility] ORDERABLES * RESPIRATORY PATHOGEN PANEL BY PCR (03/17/2019 5:07 PM EXPORT SPECIALIST) Adenovirus PCR Not detected Not detected, Invalid, Indeterminate 03/17/2019 9:47 PM EXPORT SPECIALIST [facility] Coronavirus PCR Not detected Not detected, Invalid, Indeterminate 03/17/2019 9:47 PM EXPORT SPECIALIST [facility] Human Metapneumovirus PCR Not detected Not detected, Invalid, Indeterminate 03/17/2019 9:47 PM EXPORT SPECIALIST [facility] Human Rhinovirus/Entero virus PCR Not detected Not detected, Invalid, Indeterminate 03/17/2019 9:47 PM EXPORT SPECIALIST [facility] Influenza A PCR Not detected Not detected, Equivocal, Invalid, Indeterminate 03/17/2019 9:47 PM EXPORT SPECIALIST [facility] Influenza B PCR Not detected Not detected, Invalid, Indeterminate 03/17/2019 9:47 PM EXPORT SPECIALIST [facility] Parainfluenza Virus 1 PCR Not detected Not detected, Invalid, Indeterminate 03/17/2019 9:47 PM EXPORT SPECIALIST [facility] Parainfluenza Virus 2 PCR Not detected Not detected, Invalid, Indeterminate 03/17/2019 9:47 PM EXPORT SPECIALIST [facility] Parainfluenza Virus 3 PCR Not detected Not detected, Invalid, Indeterminate 03/17/2019 9:47 PM EXPORT SPECIALIST [facility] Parainfluenza Virus 4 PCR Not detected Not detected, Invalid, Indeterminate 03/17/2019 9:47 PM EXPORT SPECIALIST [facility] Respiratory Syncytial Virus PCR Not detected Not detected, Invalid, Indeterminate 03/17/2019 9:47 PM EXPORT SPECIALIST [facility] Bordetella pertussis PCR Not detected Not detected, Invalid 03/17/2019 9:47 PM EXPORT SPECIALIST [facility] Chlamydia pneumoniae PCR Not detected Not detected, Invalid, Indeterminate 03/17/2019 9:47 PM EXPORT SPECIALIST [facility] Mycoplasma pneumoniae PCR Not detected Not detected, Invalid, Indeterminate 03/17/2019 9:47 PM EXPORT SPECIALIST [facility] Microbiology SPECIMEN FROM NASOPHARYNGEAL STRUCTURE / Unknown Collection / Unknown 03/17/2019 5:07 PM EXPORT SPECIALIST 03/17/2019 5:15 PM EXPORT SPECIALIST Michelle Mcdaniel MD LAB - MICROBIOLOGY O RDERABLES [facility] [address] [place], [place] [address], [facility] [phone] * CT ANGIO CHEST PULM EMBOLISM (03/17/2019 4:10 PM EXPORT SPECIALIST) Anatomical Region Laterality Modality Chest Computed Tomogra phy 03/17/2019 4:12 PM EXPORT SPECIALIST Impressions 03/17/2019 4:14 PM EXPORT SPECIALIST No evidence for pulmonary embolism. Dependent atelectasis. No focal infiltrates. Reading Radiologist: Pascual Chacon MD on 03/17/2019 at 4:14 PM Narrative 03/17/2019 4:[address] Chest Angiography with IV contrast INDICATION: [...] ECHOCARDIOGRAM 2D WITH DOPPLER (03/17/2019 12:36 PM EXPORT SPECIALIST) 03/17/2019 12:3 6 PM EXPORT SPECIALIST Narrative [facility] - 03/17/2019 2:38 [place] [address] Transthoracic Echocardiogram 2D, M-mode, Doppler, and Color Doppler Patient: JJ SLATER MR number: [id number] Height: 61 in Weight: 201.5 lb BSA: 1.9 m Study date: 17-Mar-2019 : 1980 Age: 39 years Gender: Female Race: Allergies: CODEINE, PENICILLINS, NAPROXEN, KETOROLAC Program Coordinator For Residence Life: Justine Holder RDCS Referring Physician: Kinga Ngo [...] Procedure Note Deborah Thibodeaux DO - 03/17/2019 [place] [address] Transthoracic Echocardiogram 2D, M-mode, Doppler, and Color Doppler Patient: JJ SLATER MR number: [id number] Height: 61 in Weight: 201.5 lb BSA: 1.9 m Study date: 17-Mar-2019 : 1980 Age: 39 years Gender: Female Race: Allergies: CODEINE, PENICILLINS, NAPROXEN, KETOROLAC Program Coordinator For Residence [facility]: Justine Holder LEELA Referring Physician: Kinga Ngo [...] Ngo MD ECHO ORDERABLES Performing Organization Address City/State/[facility] Co de Phone Number [facility] [address] [place] [address] * XR CHEST 1VW PORTABLE (03/17/2019 12:25 PM EXPORT SPECIALIST) Anatomical Region Laterality Modality Chest Radiographic Daniella ging 03/17/2019 1:23 PM EXPORT SPECIALIST Impressions 03/17/2019 1:23 PM EXPORT SPECIALIST Clear lungs. Reading Radiologist: Ted Schulte MD on 03/17/2019 at 1:23 PM Narrative 03/17/2019 1:23 PM EXPORT SPECIALIST Chest x-ray single view. HISTORY: Vomiting. Single [...] RDERABLES * TROPONIN I (03/17/2019 11:42 AM EXPORT SPECIALIST) Troponin I <0.010 <0.038 ng/mL 03/17/2019 12:26 PM EXPORT SPECIALIST [facility] Blood BLOOD SPECIMEN / Unknown Venipuncture / Unknown 03/17/2019 11:42 AM EXPORT SPECIALIST 03/17/2019 11:52 AM EXPORT SPECIALIST Michelle Mcdaniel MD LAB - CHEMISTRY RM MOSS Performing Organization Address [facility] Co de Phone Number [facility] [address] [place] [address] * B-TYPE NATRIURETIC PEPTIDE (03/17/2019 11:42 AM EXPORT SPECIALIST) BNP 22 <=100 pg/mL 03/17/2019 2:38 PM EXPORT SPECIALIST [facility] Blood BLOOD SPECIMEN / Unknown Venipuncture / Unknown 03/17/2019 11:42 AM EXPORT SPECIALIST 03/17/2019 11:52 AM EXPORT SPECIALIST Narrative [facility] - 03/17/2019 2:38 PM EXPORT SPECIALIST A cutoff of 100 pg/mL has been [...] - CHEMISTRY OR YADI Performing Organization Address [facility] Co de Phone Number [facility] [address] [place] [address] * PHOSPHORUS BLOOD (03/17/2019 11:42 AM EXPORT SPECIALIST) Phosphorus 3.9 2.3 - 4.7 mg/dL 03/17/2019 12:21 PM EXPORT SPECIALIST [facility] Blood BLOOD SPECIMEN / Unknown Venipuncture / Unknown 03/17/2019 11:42 AM EXPORT SPECIALIST 03/17/2019 11:52 AM EXPORT SPECIALIST Michelle Mcdaniel MD LAB - CHEMISTRY RM MOSS Performing Organization Address [facility] Co de Phone Number [facility] [address] [place] [address] * MAGNESIUM BLOOD (03/17/2019 11:42 AM EXPORT SPECIALIST) Magnesium 1.9 1.6 - 2.6 mg/dL 03/17/2019 12:21 PM EXPORT SPECIALIST [facility] Blood BLOOD SPECIMEN / Unknown Venipuncture / Unknown 03/17/2019 11:42 AM EXPORT SPECIALIST 03/17/2019 11:52 AM EXPORT SPECIALIST Michelle Mcdaniel MD LAB - CHEMISTRY RM MOSS [facility] [address] [place] [address] * CK BLOOD (03/17/2019 11:42 AM EXPORT SPECIALIST) Pathologist [facility] CK 30 29 - 168 U/L 03/17/2019 12:21 PM EXPORT SPECIALIST [facility] Blood BLOOD SPECIMEN / Unknown Venipuncture / Unknown 03/17/2019 11:42 AM EXPORT SPECIALIST 03/17/2019 11:52 AM EXPORT SPECIALIST Michelle Mcdaniel MD LAB - CHEMISTRY RM MOSS Performing Organization Address [facility]/ZIP Co de Phone Number [facility] [address] [place], [place] [id number] * (ABNORMAL) TSH (03/17/2019 11:42 AM EXPORT SPECIALIST) Pathologist [facility] TSH 5.2847(H) 0.35 - 4.94 uIU/mL 03/17/2019 1:11 PM EXPORT SPECIALIST [facility] Blood BLOOD SPECIMEN / Unknown Venipuncture / Unknown 03/17/2019 11:42 AM EXPORT SPECIALIST 03/17/2019 11:52 AM EXPORT SPECIALIST Michelle Mcdaniel MD LAB - CHEMISTRY RM MOSS Performing Organization Address City/[facility]/ZIP Co de Phone Number [facility] [address] [place] [address] * T4 FREE (03/17/2019 11:42 AM EXPORT SPECIALIST) Pathologist [facility] T4 Free 0.71 0.70 - 1.48 ng/dL 03/17/2019 2:52 PM EXPORT SPECIALIST [facility] Blood BLOOD SPECIMEN / Unknown Venipuncture / Unknown 03/17/2019 11:42 AM EXPORT SPECIALIST 03/17/2019 11:52 AM EXPORT SPECIALIST Daylin Cardona MD LAB - CHEMISTRY OR DERABLES [facility] [address] [place] [address] * NONSTRESS TEST (03/10/2019 5:10 PM EXPORT SPECIALIST) Evelyn Kat APRN-CNM - 03/10/2019 5:10 PM EXPORT SPECIALIST Dipika Perez RN 03/10/2019 5:11 PM Name: [...] SYPHILIS ANTIBODY CASCADING REFLEX (03/10/2019 1:24 PM EXPORT SPECIALIST) Only the most recent of2 resultswithin the time period is included. Treponema pallidum Antibody Non Reactive Non Reactive 03/10/2019 3:02 PM EXPORT SPECIALIST [facility] Comment: No Laboratory evidence of syphilis infection. Note: Circulating antibodies may be low or undetectable in early infection. If recent exposure is suspected, re-draw sample in 2-4 weeks and repeat testing. Blood BLOOD SPECIMEN / Unknown Venipuncture / Unknown 03/10/2019 1:24 PM EXPORT SPECIALIST 03/10/2019 1:50 PM EXPORT SPECIALIST Ivana Thomas APRN-JIGGER OPERATOR LAB - SEROLOGY ORDERABLES Performing Organization Address [facility] [facility] de Phone Number [facility] [address] [place] [address] * HIV-1 HIV-2 ANTIBODY + HIV P24 AG PANEL (03/10/2019 1:24 PM EXPORT SPECIALIST) Only the most recent of3 resultswithin the time period is included. HIV1/2 Ab + P24 Ag Non Reactive Non Reactive 03/10/2019 2:57 PM EXPORT SPECIALIST [facility] Blood BLOOD SPECIMEN / Unknown Venipuncture / Unknown 03/10/2019 1:24 PM EXPORT SPECIALIST 03/10/2019 1:49 PM EXPORT SPECIALIST Narrative [facility] - 03/10/2019 2:57 PM EXPORT SPECIALIST No Laboratory evidence of HIV infection. Ivana Thomas [facility] LAB - CHEMISTRY ORDERABLES Performing Organization Address [facility] de Phone Number [facility] [address] [place] [address] * GLUCOSE CHALLENGE (03/10/2019 1:24 PM EXPORT SPECIALIST) Only the most recent of2 resultswithin the time period is included. Pathologist [facility] Glucose Challenge 104 64 - 140 mg/dL 03/10/2019 4:13 PM EXPORT SPECIALIST [facility] Glucose Challenge Time 1324 03/10/2019 4:13 PM EXPORT SPECIALIST [facility] Blood BLOOD SPECIMEN / Unknown Venipuncture / Unknown 03/10/2019 1:24 PM EXPORT SPECIALIST 03/10/2019 1:49 PM EXPORT SPECIALIST Ivana Thomas [facility] LAB - CHEMISTRY ORDERABLES Performing Organization Address [facility] de Phone Number [facility] [address] [place] [address] * (ABNORMAL) IRON + TRANSFERRIN PANEL (03/10/2019 1:24 PM EXPORT SPECIALIST) Only the most recent of2 resultswithin the time period is included. Iron 48(L) 50 - 170 ug/dL 03/10/2019 5:02 PM EXPORT SPECIALIST [facility] Transferrin 435(H) 180 - 382 mg/dL 03/10/2019 5:02 PM EXPORT SPECIALIST [facility] TIBC Calculated 544(H) 240 - 450 ug/ml 03/10/2019 5:02 PM EXPORT SPECIALIST [facility] Iron Saturation % 9(L) 20 - 50 % 03/10/2019 5:02 PM EXPORT SPECIALIST [facility] Blood BLOOD SPECIMEN / Unknown Venipuncture / Unknown 03/10/2019 1:24 PM EXPORT SPECIALIST 03/10/2019 1:49 PM EXPORT SPECIALIST Palak Oreilly APRN-JIGGER OPERATOR LAB - HOME CARE RN RY ORDERABLES Performing Organization Address [facility] de Phone Number [facility] [address] [place] [address] * FERRITIN (03/10/2019 1:24 PM EXPORT SPECIALIST) Only the most recent of3 resultswithin the time period is included. Ferritin 6 5 - 204 ng/mL 03/10/2019 5:22 PM EXPORT SPECIALIST [facility] Blood BLOOD SPECIMEN / Unknown Venipuncture / Unknown 03/10/2019 1:24 PM EXPORT SPECIALIST 03/10/2019 1:49 PM EXPORT SPECIALIST Palak Oreilly [facility] LAB - HOME CARE RN RY ORDERABLES Performing Organization Address [facility] de Phone Number [facility] [address] [place], [place] [phone] * STREP A SCREEN DIRECT W RFLX STREP A CULTURE (03/10/2019 1:12 PM EXPORT SPECIALIST) Strep A Rapid Negative Negative 03/10/2019 2:17 PM EXPORT SPECIALIST [facility] Microbiology ENTIRE THROAT (SURFACE REGION OF NECK) / Unknown Collection / Unknown 03/10/2019 1:12 PM EXPORT SPECIALIST 03/10/2019 1:52 PM EXPORT SPECIALIST Narrative [facility] - 03/10/2019 2:17 PM EXPORT SPECIALIST Test has reflexed to a Strep A culture. Ivana Thomas APRN-JIGGER OPERATOR LAB - MICROBIOL OGY ORDERABLES Performing Organization Address [facility] Co de Phone Number [facility] [address] [place] [address] * CULTURE STREP GROUP A (03/10/2019 1:12 PM EXPORT SPECIALIST) Culture Negative for beta-hemolytic Streptococcus Group A KENNY 03/12/2019 7:47 AM EXPORT SPECIALIST [facility] MICROBIOLOGY Microbiology ENTIRE THROAT (SURFACE REGION OF NECK) / Unknown Collection / Unknown 03/10/2019 1:12 PM EXPORT SPECIALIST 03/10/2019 1:52 PM EXPORT SPECIALIST Ivana Martha CLINICAL SERVICES SPECIALIST-JIGGER OPERATOR LAB - MICROBIOL OGY ORDERABLES [facility] MICROBIOLOG[facility] [address] [phone] * SONOGRAM - TRANSVAGINAL (03/10/2019 12:29 PM EXPORT SPECIALIST) Only the most recent of3 resultswithin the time period is included. Anatomical Region Laterality Modality Other 03/10/2019 12:2 9 PM EXPORT SPECIALIST Narrative 03/10/2019 3:24 PM EXPORT SPECIALIST [facility] PHONE: FAX: Pat. Name: JJ SLATER Janelle Pat. No: [id number] Study Date: 03/10/2019 12:29pm , Age: 14 1980, 39 Height: 61 in Weight: 175 lb LMP: Unknown GA by Base: 27w3d NEGRO: 06/06/2019 [place] Selected: 27w3d (From [facility]) NEGRO: 06/06/2019 Referring MD: Kimberli Galloway MD Program Coordinator For [facility]idence Life: Silvina Fair RDMS CPT4: 27735,11811 BMI: 33.06 Hist/Ind: Incomplete anatomic survey AMA, [...] <Electronic Signature> 03/10/2019 03:24pm Kimberli Galloway MD [facility] ORDERABLES * KETONES URINE - POINT OF CARE (03/06/2019 1:07 PM EXPORT SPECIALIST) Ketone UA neg Negative [facility] POCT TESTING QC Verified Yes Yes [facility] POC T TESTING Urine URINE / Unknown 03/06/2019 1 :07 PM EXPORT SPECIALIST Becky Saab MD LAB - POINT OF CARE ORDERABLES Performing Organization Address [facility] Co de Phone Number [facility] POCT TEST[facility] [address] [place] [address], [facility] [phone] * CHLAMYDIA + GC AMPLIFIED PROBE (STL) (02/26/2019 1:24 PM EXPORT SPECIALIST) Only the most recent of2 resultswithin the time period is included. Chlamydia Amplified Probe Negative Negative 02/28/2019 1:54 PM EXPORT SPECIALIST [facility] GC Amplified Probe Negative Negative 02/28/2019 1:54 PM EXPORT SPECIALIST [facility] MICRO[facility] Microbiology ENTIRE ENDOCERVIX / Unknown Collection / Unknown 02/26/2019 1:24 PM EXPORT SPECIALIST 02/26/2019 1:31 PM EXPORT SPECIALIST Narrative [facility] - 02/28/2019 1:54 PM EXPORT SPECIALIST Results based on detection/no detection of ribosomal RNA by amplified method. Dory Guadarrama MD LAB - MICROBIOLOGY O RDERABLES Performing Organization Address [facility] Co de Phone Number [facility] [address] [phone] * TRICHOMONAS RAPID TEST (02/26/2019 1:24 PM EXPORT SPECIALIST) Only the most recent of2 resultswithin the time period is included. Trichomonas Rapid Test Negative Negative 02/26/2019 1:55 PM EXPORT SPECIALIST [facility] Microbiology VAGINAL SWAB / Unknown Collection / Unknown 02/26/2019 1:24 PM EXPORT SPECIALIST 02/26/2019 1:31 PM EXPORT SPECIALIST Dory Guadarrama MD LAB - MICROBIOLOGY O RDERABLES Performing Organization Address [facility] Co de Phone Number [facility] [address] [place] [phone] * TRICHOMONAS VAGINALIS AMPLIFIED PROBE (12/30/2018 10:46 AM EXPORT SPECIALIST) Trichomonas vaginalis Amplified Probe Negative Negative 12/31/2018 8:15 AM EXPORT SPECIALIST [facility] MICRO[facility] Other URINE / Unknown Collection / Unknown 12/30/2018 10:46 AM EXPORT SPECIALIST 12/30/2018 11:08 AM EXPORT SPECIALIST Narrative [facility]CRO[facility] - 12/31/2018 8:15 AM EXPORT SPECIALIST This test was developed and its performance characteristics determined by the [facility] Laboratory, [facility]. Urine specimens tested by the [facility] have not been cleared or approved by the U.S. Food and Drug Administration (FDA). The laboratory is regulated under the Clinical Laboratory Improvement Amendments (CLIA) as qualified to perform high-complexity testing. This test is used for clinical purposes. It should not be regarded as investigational or for research. Results based on detection/no detection of ribosomal RNA by amplified method. Helen Zurita [employer] LAB - MICROBIO LOGY ORDERABLES Performing Organization Address City/[facility]/ZIP Co de Phone Number [facility] MICROBIOLOGY [address] [place] [address], [facility] [phone] * BACTERIAL VAGINOSIS + YEAST SMEAR (12/30/2018 10:46 AM EXPORT SPECIALIST) Clue Cells No Clue Cells Seen No Clue Cells Seen 12/31/2018 12:22 AM EXPORT SPECIALIST [facility] Yeast No Yeast Seen No Yeast Seen 01/01/20 12:22 AM [facility]CROBIOLOG[facility] Steven Score Steven Score 0-3: Consistent with normal vaginal stefany Steven Score 0-3: Consistent with normal vaginal stefany 12/31/2018 12:22 AM EXPORT SPECIALIST [facility] Microbiology ENTIRE VAGINA / Unknown Collection / Unknown 12/30/2018 10:46 AM EXPORT SPECIALIST 12/30/2018 11:08 AM EXPORT SPECIALIST Helen Zurita [facility] LAB - MICROBIO LOGY ORDERABLES [facility]CRO[facility] [address] [place] [address], [facility] [phone] * FENTANYL URINE (12/30/2018 9:39 AM EXPORT SPECIALIST) Only the most recent of3 resultswithin the time period is included. Fentanyl Negative ng/mL 01/12/2019 11:09 AM [facility] ([facility]) Comment:REFERENCE RANGE: NOT ESTABLISHED Norfentanyl Negative ng/mL 01/12/2019 11:09 AM [facility] ([facility]) Comment:REFERENCE RANGE: NOT ESTABLISHED Sufentanil Negative ng/mL 01/12/2019 11:09 AM [facility] ([facility]) Comment:REFERENCE RANGE: NOT ESTABLISHED Alfentanil Negative ng/mL 01/12/2019 11:09 AM EXPORT SPECIALIST [facility] ([facility]) Comment:REFERENCE RANGE: NOT ESTABLISHED Norsufentanil Negative ng/mL 01/12/2019 11:09 AM [facility] ([facility]) Comment:REFERENCE RANGE: NOT ESTABLISHED Acetyl Fentanyl Negative NEGATIVE ng/mL 01/12/2019 11:09 AM EXPORT SPECIALIST [facility] ([facility]) Acetyl Norfentanyl Negative NEGATIVE ng/mL 01/12/2019 11:09 AM [facility] ([facility]) Comment: This test was developed and its performance characteristics determined by [facility]. It has not been cleared or approved by the Food and Drug Administration. Urine URINE / Unknown Collection / Unknown 12/30/2018 9:39 AM EXPORT SPECIALIST 12/30/2018 11:06 AM EXPORT SPECIALIST Narrative [facility] ([facility]) - 01/12/2019 11:09 AM EXPORT SPECIALIST Performed at: [facility] [address] [id number] Physical Therapy Resident: Yue Hess [facility], Phone: [phone] Helen Zurita CLINICAL SERVICES SPECIALIST-JIGGER OPERATOR LAB - URINE CH EMISTRY ORDERABLES [facility] ([facility]) [address] [place] [address] * (ABNORMAL) URINALYSIS REFLEX TO MICROSCOPIC NO CULTURE (12/30/2018 9:24 AM EXPORT SPECIALIST) Only the most recent of2 resultswithin the time period is included. Color UA Liseth(A) Straw, Yellow 12/30/2018 10:[address] [facility] Clarity UA Slt Cloudy(A) Clear 12/30/2018 10:[address] [facility] Glucose UA Negative Negative 12/30/2018 10:[address] [facility] Bilirubin UA Negative Negative 12/30/2018 10:[address] [facility] Ketone UA Negative Negative 12/30/2018 10:[address] [facility] Specific [place] UA 1.024 1.005 - 1.030 12/30/2018 10:[address] [facility] Blood UA Negative Negative 12/30/2018 10:[address] [facility] pH UA 6.0 5.0 - 8.0 pH 12/30/2018 10:[address] [facility] Protein UA 1+(A) Negative 12/30/2018 10:[address] [facility] Urobilinogen UA Negative Negative mg/dL 12/30/2018 10:[address] [facility] Nitrite UA Negative Negative 12/30/2018 10:[address] [facility] Leukocyte UA 1+(A) Negative 12/30/2018 10:[address] [facility] Urine Microscopy Urine microscopy to follow 12/30/2018 10:[address] [facility] Urine URINE SPECIMEN OBTAINED BY CLEAN CATCH PROCEDURE / Unknown Collection / Unknown 12/30/2018 9:24 AM EXPORT SPECIALIST 12/30/2018 9:54 AM [facility] Narrative [facility] - 12/30/2018 10:05 AM [facility] Helen Zurita CLINICAL SERVICES SPECIALIST-JIGGER OPERATOR LAB - URINALYS IS ORDERABLES [facility] [address], [place] [phone] * (ABNORMAL) URINE MICROSCOPIC ONLY (12/30/2018 9:24 AM [facility]) Only the most recent of2 resultswithin the time period is included. RBC UA 3-5 None Seen, 0-2, 3-5 # /hpf 12/30/2018 10:[address] [facility] WBC UA 0-5 None Seen, 0-5 # /hpf 12/30/2018 10:[address] [facility] Hyaline Casts 0-2 None Seen, 0-2 # /lpf 12/30/2018 10:[address] [facility] Bacteria UA Trace(A) None Seen 12/30/2018 10:[address] [facility] Squamous Epithelial Cells 11-20(A) None Seen, 0-2, 3-5 /hpf 12/30/2018 10:[address] [facility] Mucus UA 4+ /LPF 12/30/2018 10:[address] [facility] Urine URINE SPECIMEN OBTAINED BY CLEAN CATCH PROCEDURE / Unknown Collection / Unknown 12/30/2018 9:24 AM EXPORT SPECIALIST 12/30/2018 9:54 AM EXPORT SPECIALIST Narrative [facility] - 12/30/2018 10:26 AM EXPORT SPECIALIST Helen Zurita [facility] LAB - URINALYS IS ORDERABLES Performing Organization Address City/[facility]/ZIP Co de Phone Number [facility] [address] [place] [address] * CHLAMYDIA + GC AMPLIFIED PROBE (11/11/2018 12:26 PM CDT) Only the most recent of2 resultswithin the time period is included. Chlamydia Amplified Probe Negative Negative 11/12/2018 8:34 AM CDT [facility] GC Amplified Probe Negative Negative 11/12/2018 8:34 AM CDT [facility] Other ENTIRE ENDOCERVIX / Unknown Collection / Unknown 11/11/2018 12:26 PM CDT 11/11/2018 12:25 PM CDT Narrative [facility] - 11/12/2018 8:34 AM CDT Results based on detection/no detection of ribosomal RNA by amplified method. Helen Zurita [facility] LAB - MICROBIO LOGY ORDERABLES [facility] [address] [place] [address], [facility] [phone] * PAP LB HPV HR DNA (11/11/2018 12:09 PM CDT) Diagnosis Comment 11/15/2018 8:07 PM CDT [facility] ([facility]) Comment:NEGATIVE FOR INTRAEP ITHELIAL LESION OR MALIGNANCY. Specimen Adequacy Comment 019 8:07 PM CDT [facility] ([facility]) Comment: Satisfactory for evaluation. No endocervical component is identified. An endocervical component is not commonly seen in the patient. Performed by Comment 11/15/2018 8:07 PM CDT [facility] ([facility]) Comment:Bernarda Hutchins Tube Depatcher (ASCP) Comment . 11/15/2018 8:07 PM CDT [facility] ([facility]) Note Comment 11/15/2018 8:07 PM CDT [facility] ([facility]) Comment: The Pap smear is a screening test designed to aid in the detection of premalignant and malignant conditions of the uterine cervix. It is not a diagnostic procedure and should not be used as the sole means of detecting cervical cancer. Both false-positive and false-negative reports do occur. Human papillomavirus High Risk Negative Negative 11/15/2018 8:07 PM CDT [facility] ([facility]) Comment: This high-risk HPV test detects thirteen high-risk types (16/18/31/33/35/39/45/51/52/56/58/59/68) without differentiation. Pathology/Cytolo gy ENTIRE ENDOCERVIX / Unknown Collection / Unknown 11/11/2018 12:09 PM CDT 11/11/2018 12:27 PM CDT Narrative [facility] ([facility]) - 11/15/2018 8:07 PM CDT Performed at: 01 - [address] [id number] Physical Therapy Resident: Onelia Barbosa MD, Phone: [phone] Performed at: - [address] [id number] Physical Therapy Resident: Onelia Barbosa MD, Phone: [phone] Specimen Comment: Source.............Endocervix Specimen Comment: LMP / Prev Treat...Conization;[place] / BX Specimen Comment: Other.............. Specimen Comment: No. of containers..01 ThinPrep Vial Helen Zurita CLINICAL SERVICES SPECIALIST-JIGGER OPERATOR LAB - PATHOLOG Y/CYTOLOGY ORDERABLES [facility] ([facility]) [address] [place] [address] * RUBELLA ANTIBODY IGG (11/11/2018 12:07 PM CDT) Rubella Antibody 4.02 Immune >0.99 index 11/12/2018 8:12 AM CDT [facility] ([facility]) Comment: Non-immune <0.90 Equivocal 0.90 - 0.99 Immune >0.99 Blood BLOOD SPECIMEN / Unknown Venipuncture / Unknown 11/11/2018 12:07 PM CDT 11/11/2018 12:56 PM CDT Narrative [facility] ([facility]) - 11/12/2018 8:12 AM CDT Performed at: 01 - [facility] [id number] [place], [place] [id number] Physical Therapy Resident: Neil Aviles PhD, Phone: [phone] Helen Zurita CLINICAL SERVICES SPECIALIST-JIGGER OPERATOR LAB - SEROLOGY ORDERABLES Performing Organization Address City/State/[facility] Co de Phone Number [facility] ([facility]) [address] [place] [address] * HEMOGLOBIN ELECTROPHORESIS (11/11/2018 12:07 PM CDT) Hemoglobin A1 97.3 97.1 - 99.1 % 11/17/2018 12:40 PM CDT [facility] Hemoglobin F 0.0 0.0 - 2.0 % 11/17/2018 12:40 PM CDT [facility] Hemoglobin S 0.0 <=0.0 % 11/17/2018 12:40 PM CDT [facility] Hemoglobin C 0.0 <=0.0 % 11/17/2018 12:40 PM CDT [facility] Hemoglobin A2 2.7 0.9 - 2.9 % 11/17/2018 12:40 PM CDT [facility] Hemoglobin E 0.0 % 11/17/2018 12:40 PM CDT [facility] Interpretation Normal Interpretation 11/17/2018 12:40 PM CDT [facility] Blood BLOOD SPECIMEN / Unknown Venipuncture / Unknown 11/11/2018 12:07 PM CDT 11/11/2018 12:57 PM CDT Helen Zurita CLINICAL SERVICES SPECIALIST-JIGGER OPERATOR LAB - CHEMISTR Y ORDERABLES Performing Organization Address City/[facility]/ZIP Co de Phone Number [facility] [address] [place] [address] * HEMOGLOBIN A1C (11/11/2018 12:07 PM CDT) [facility] Hemoglobin A1c 5.0 4.0 - 6.1 % 11/11/2018 1:26 PM CDT [facility] Estimated Average Glucose 97 mg/dL 11/11/2018 1:26 PM CDT [facility] Blood BLOOD SPECIMEN / Unknown Venipuncture / Unknown 11/11/2018 12:07 PM CDT 11/11/2018 12:56 PM CDT [facility]ardFlowers HospitalN-JIGGER OPERATOR LAB - CHEMISTR Y ORDERABLES Performing Organization Address [facility] Co de Phone Number [facility] [address] [place] [phone] * (ABNORMAL) CYSTIC FIBROSIS MUTATION PNL (11/11/2018 12:07 PM CDT) [facility] Cystic Fibrosis Screen CARRIER(A) 11/22/2018 11:08 AM CDT [facility] ([facility]) Comment: RESULTS: POSITIVE for one copy [...] provided here: Detection Ethnicity Rate Ashkenazi 97% Scientology 90% (non-) -Togolese 69% 73% 55% This interpretation is based on the clinical and family relationship information provided and the current understanding of the molecular genetics of this condition. MUTATIONS ANALYZED: G85E V520F V2930B 2183AA to G R117H G542X B0316S 2184delA R334W S549N 394delTT 2789+5G to A R347H S549R 621+1G to T 3120+1G to A R347P G551D 711+1G to T 3659delC A455E R553X 1078delT 3849+10kbC to T [id number] R560T 1717-1G to A 3876delA HwercC346 H3584X 1898+1G to A 3905insT METHODS/LIMITATIONS: DNA is isolated from the sample and tested for the 32 CF mutations on the [place] Array Platform ([employer]). Regions of the CFTR gene are amplified enzymatically and subjected to a solution-phase multiplex allele-specific primer extension with subsequent hybridization to a bead array and fluorescence detection. Polymorphisms F508C, I506V and I507V are included in this panel to rule out false positive [id number] homozygotes. Reflex testing of 5T is included in the panel for R117H interpretation. False positive or negative results may occur for reasons that include genetic variants, blood transfusions, bone marrow transplantation, erroneous representation of family relationships or contamination of a sample with maternal cells. REFERENCES: 1. Updates on Carrier Screening for Cystic Fibrosis. (2011) Am J Ob Gynecol 117(4):9791-7109 2. Chacho et al. (2004) Estefany Med 6:387-91 3. Ahmet, et al. (2002) Estefany Med 4:379-391 4. Preconception and carrier screening for cystic fibrosis: (2001)ACOG.ACMG publication Results Released By: Srinath Perrin, Ph.D., Direct Care Professional Released By: Yolanda Rich MS, [facility], Genetic Counselor Comment Comment 11/22/2018 11:08 AM CDT [facility] ([facility]) Comment: The assay provides information intended [...] CDT 11/11/2018 12:56 PM CDT Narrative [facility] ([facility]) - 11/22/2018 11:08 AM CDT Performed at: 01 - [facility] [address] [facility], [place], [place] [id number] Physical Therapy Resident: Oscar Angelo MD, Phone: [phone] Helen Zurita [facility] LAB - HEMATOLO GY ORDERABLES [facility] ([facility]) [address] [place] [address] * HEPATITIS B SURFACE ANTIGEN W RFLX CONFIRMATION (11/11/2018 12:07 PM CDT) Pathologist [facility] HBsAg Non Reactive Non Reactive 11/11/2018 1:55 PM CDT [facility] Blood BLOOD SPECIMEN / Unknown Venipuncture / Unknown 11/11/2018 12:07 PM CDT 11/11/2018 12:57 PM CDT Helen Zurita [facility] LAB - CHEMISTR Y ORDERABLES Performing Organization Address City/[facility]/ZIP Co de Phone Number [facility] [address] [place] [address] * HEPATITIS C ANTIBODY (11/11/2018 12:07 PM CDT) Only the most recent of2 resultswithin the time period is included. Pathologist [facility] HCV Antibody Screen Non Reactive Non Reactive 11/11/2018 1:55 PM CDT [facility] HCV S/C Ratio 0.19 0.00 - 0.79 11/11/2018 1:55 PM CDT [facility] Comment: Emkzwi-nl-fapurg ratio (S/CO) <0.80: Non Reactive Blood BLOOD SPECIMEN / Unknown Venipuncture / Unknown 11/11/2018 12:07 PM CDT 11/11/2018 12:56 PM CDT Narrative [facility] - 11/11/2018 1:55 PM CDT Non Reactive - Antibodies to Hepatitis C virus (HCV) were not detected, result does not exclude early acute HCV infection. Helen Zurita CLINICAL SERVICES SPECIALIST-JIGGER OPERATOR LAB - CHEMISTR Y ORDERABLES [facility] [address] [place] [address] * PANORAMA TEST (11/11/2018) Pathologist [facility] Comment Genetics Low risk-Femal e Blood BLOOD SPECIMEN / Unknown Historical Provider LAB - CHEMISTRY O RDERABLES * APHERESIS/TRANSFUSION ORDER (09/06/2015 10:33 AM CDT) Narrative 09/06/2015 10:33 AM CDT Ordered by an unspecified provider. Scanned Document NURSING - VITAL SIGN S AND ASSESSMENT * (ABNORMAL) DIFFERENTIAL MANUAL (09/01/2015 7:00 AM CDT) Only the most recent of2 resultswithin the time period is included. Pathologist [facility] WBC Auto 18.3 x10E9/L 09/01/2015 8:51 AM CDT [facility] WBC Corrected 4.4 - 10.7 x10E9/L 09/01/2015 8:51 AM CDT [facility] nRBC /100 WBC 09/01/2015 8:51 AM CDT [facility] Neutrophil % Manual 76(H) 44 - 73 % 09/01/2015 8:51 AM CDT [facility] Lymphocytes % Manual 5(L) 20 - 43 % 09/01/2015 8:51 AM CDT [facility] Monocytes % Manual 3(L) 5 - 13 % 09/01/2015 8:51 AM CDT [facility] Band % Manual 16(H) 0 - 11 % 09/01/2015 8:51 AM CDT [facility] Cells Counted 100 # cells 09/01/2015 8:51 AM CDT [facility] RBC Morphology Normal 09/01/2015 8:51 AM CDT [facility] WBC Morph Normal 09/01/2015 8:51 AM CDT [facility] Platelet Estimation Normal 09/01/2015 8:51 AM CDT [facility] Blood BLOOD SPECIMEN / Unknown Venipuncture / Unknown 09/01/2015 7:00 AM CDT 09/01/2015 7:45 AM CDT Daylin Macias MD LAB - HEMATOLOGY ORDERABLES Performing Organization Address City/[facility]/ZIP Co de Phone Number [facility] [address] [place] [address] * TRANSFUSE RED BLOOD CELL UNIT(S) (09/01/2015 1:54 AM CDT) Braxton Arias MD NURSING - BLOOD PROD TRANSFUSION * PREPARE FFP UNIT(S) (08/31/2015 10:44 PM CDT) Only the most recent of2 resultswithin the time period is included. [facility] Unit Donor # [id number] 09/01/2015 8:20 AM CDT [facility] Product Code E2701 09/01/2015 8:20 AM CDT [facility] Unit Description E2701 Plasma, CPD,Thawed 09/01/2015 8:20 AM CDT [facility] Unit Status Transfused Unit 09/01/2015 8:20 AM CDT [facility] ABO Donor Type AB 09/01/2015 8:20 AM CDT [facility] Rh Type Unit POS 09/01/2015 8:20 AM CDT [facility] Miscellaneous samples (specimen) BLOOD SPECIMEN / Unknown Venipuncture / Unknown 08/31/2015 10:44 PM CDT 08/31/2015 10:46 PM CDT Braxton Arias MD LAB - BLOOD BANK ORDERABLES Performing Organization Address City/[facility]/ZIP Co de Phone Number [facility] [address] [place] [address] * HIV-1 HIV-2 ANTIBODY + HIV P24 AG RAPID PNL (08/31/2015 10:30 PM CDT) Only the most recent of2 resultswithin the time period is included. [facility] HIV1/2 Ab + P24 Ag Rapid Non Reactive Non Reactive 08/31/2015 11:14 PM CDT [facility] Blood BLOOD SPECIMEN / Unknown Venipuncture / Unknown 08/31/2015 10:30 PM CDT 08/31/2015 10:42 PM CDT Narrative [facility] - 08/31/2015 11:14 PM CDT No Laboratory evidence of HIV infection. Braxton Arias MD LAB - SEROLOGY O RDERABLES Performing Organization Address City/[facility]/ZIP Co de Phone Number [facility] [address] [place] [address] * RPR (08/31/2015 10:30 PM CDT) RPR Non Reactive Non Reactive 09/01/2015 9:29 AM CDT [facility] Blood BLOOD SPECIMEN / Unknown Venipuncture / Unknown 08/31/2015 10:30 PM CDT 08/31/2015 10:42 PM CDT Braxton Arias MD LAB - CHEMISTRY ORDERABLES Performing Organization Address [facility] Co de Phone Number [facility] [address] [place] [address] * (ABNORMAL) COAGULATION PANEL W D-DIMER (08/31/2015 10:30 PM CDT) PT 9.6 9.5 - 11.6 sec 08/31/2015 11:56 PM CDT [facility] INR 0.9 0.9 - 1.1 08/31/2015 11:56 PM CDT [facility] PTT 23.7 21.0 - 32.0 sec 08/31/2015 11:56 PM CDT [facility] Fibrinogen 366 200 - 400 mg/dL 08/31/2015 11:56 PM CDT [facility] D-Dimer 1.84(H) 0.17 - 0.5 mg/L FEU 08/31/2015 11:56 PM CDT [facility] Platelet Count 288 153 - 416 x10E9/L 08/31/2015 11:56 PM CDT [facility] Blood BLOOD SPECIMEN / Unknown Venipuncture / Unknown 08/31/2015 10:30 PM CDT 08/31/2015 10:41 PM CDT Narrative [facility] - 08/31/2015 11:56 PM CDT [...] medical history, clinical presentation, and other findings. Dyalin Macias MD LAB - COAGULATION ORDERABLES Performing Organization Address City/State/[facility] Co de Phone Number [facility] [address] [place] [address] * HEPATITIS SCREEN ACUTE (08/31/2015 10:30 PM CDT) Only the most recent of2 resultswithin the time period is included. HAV Antibody IgM Non Reactive Non Reactive 09/01/2015 1:23 AM CDT [facility] HBsAg Non Reactive Non Reactive 09/01/2015 1:23 AM CDT [facility] HBc Antibody IgM Non Reactive Non Reactive 09/01/2015 1:23 AM CDT [facility] HCV Antibody Screen Non Reactive Non Reactive 09/01/2015 1:23 AM CDT [facility] HCV S/C Ratio <0.02 0.00 - 0.79 09/01/2015 1:23 AM CDT [facility] Comment: Vlsbzi-sb-apeeta ratio (S/CO) <0.80: Non Reactive Blood BLOOD SPECIMEN / Unknown Venipuncture / Unknown 08/31/2015 10:30 PM CDT 08/31/2015 10:42 PM CDT Narrative [facility] - 09/01/2015 1:23 AM CDT Non Reactive - Antibodies to Hepatitis C virus (HCV) were not detected, result does not exclude early acute HCV infection. Non Reactive - Antibodies to Hepatitis C virus (HCV) were not detected, result does not exclude early acute HCV infection. Braxton Arias MD LAB - CHEMISTRY ORDERABLES [facility] [address] [place] [address] * (ABNORMAL) BLOOD GASES CORD GENIA (ISTAT) (08/31/2015 10:15 PM CDT) Only the most recent of2 resultswithin the time period is included. pH Cord Venous POCT 7.28 7.28 - 7.40 pH 09/01/2015 2:12 AM [facility] pCO2 Cord Venous POCT 51(H) 35 - 45 mmHg 09/01/2015 2:12 AM [facility] pO2 Cord Venous POCT 18(L) 22 - 33 mmHg 09/01/2015 2:12 AM [facility] HCO3 Cord Arterial POCT 24 22 - 24 mmol/L 09/01/2015 2:12 AM [facility] BE Cord Venous POCT Calc -4 -6 - 2 mmol/L 09/01/2015 2:12 AM [facility] TCO2 Cord Venous POCT 25 22 - 30 mmol/L 09/01/2015 2:12 AM [facility] O2 Saturation % Cord Venous Calc POCT 21 % 09/01/2015 2:12 AM [facility] Site CORD GENIA 09/01/2015 2:12 AM [facility] Sample iSTAT CORD V 09/01/2015 2:12 AM [facility] Blood CORD BLOOD SPECIMEN / Unknown 08/31/2015 10:15 PM CDT 09/01/2015 2:12 AM CDT Bakari Lomeli MD LAB - POINT OF CARE ORDERABLES [facility] [address] [place] [address] * (ABNORMAL) BLOOD GASES CORD ART (ISTAT) (08/31/2015 10:10 PM CDT) Only the most recent of2 resultswithin the time period is included. pH Cord Arterial POCT 7.22 7.20 - 7.34 pH 09/01/2015 2:12 AM CDT [facility] pCO2 Cord Arterial POCT 63.1(H) 45 - 55 mmHg 09/01/2015 2:12 AM CDT [facility] pO2 Cord Arterial POCT 10(L) 12 - 25 mmHg 09/01/2015 2:12 AM CDT [facility] HCO3 Cord Arterial POCT 26.0 15 - 29 mmol/L 09/01/2015 2:12 AM CDT [facility] BE Cord Arterial POCT -3(L) -2.9 - 8.3 mmol/L 09/01/2015 2:12 AM CDT [facility] TCO2 Cord Arterial POCT 28 mmol/L 09/01/2015 2:12 AM CDT [facility] O2 Saturation Cord Art % Calc POCT 7 % 09/01/2015 2:12 AM CDT [facility] Site CORD ART 09/01/2015 2:12 AM CDT [facility] Sample iSTAT CORD A 09/01/2015 2:12 AM CDT [facility] Blood CORD BLOOD SPECIMEN / Unknown 08/31/2015 10:10 PM CDT 09/01/2015 2:12 AM CDT Bakari Lomeli MD LAB - POINT OF CARE ORDERABLES [facility] [address] [place] [address] * NEURAXIAL BLOCK (08/31/2015 8:39 PM CDT) [...] of4 resultswithin the time period is included. [facility] Signature [facility] Donor # [id number] -E 09/01/2015 8:21 AM CDT [facility] Product Code E0336 09/01/2015 8:21 AM CDT [facility] Unit Description E0336 RBC, LR, CPD>AS1 09/01/2015 8:21 AM CDT [facility] ABO Donor Type A 09/01/2015 8:21 AM CDT [facility] Rh Type Unit POS 09/01/2015 8:21 AM CDT [facility] Crossmatch Interpretation Compatible 09/01/2015 8:21 AM CDT [facility] Unit Status Transfused Unit 09/01/2015 8:21 AM CDT [facility] Miscellaneous samples (specimen) BLOOD SPECIMEN / Unknown 08/31/2015 8:18 PM CDT 08/31/2015 8:36 PM CDT Daylin Macias MD LAB - BLOOD BANK ORDERABLES Performing Organization Address [facility] Co de Phone Number [facility] [address] [place] [address] * (ABNORMAL) FIBRINOGEN ACTIVITY (08/31/2015 6:25 PM CDT) Fibrinogen 471(H) 200 - 400 mg/dL 08/31/2015 7:09 PM CDT [facility] Blood BLOOD SPECIMEN / Unknown Venipuncture / Unknown 08/31/2015 6:25 PM CDT 08/31/2015 6:36 PM CDT Gabrielle Plata MD LAB - COAGULATION OR DERABLES Performing Organization Address [facility] Co de Phone Number [facility] [address] [place] [address] * PTT (08/31/2015 6:25 PM CDT) PTT 23.0 21.0 - 32.0 sec 08/31/2015 7:09 PM CDT [facility] Blood BLOOD SPECIMEN / Unknown Venipuncture / Unknown 08/31/2015 6:25 PM CDT 08/31/2015 6:36 PM CDT Narrative [facility] - 08/31/2015 7:09 PM CDT Heparin Therapeutic Range for PTT: 47.7 - 68.6 seconds. Gabrielle Plata MD LAB - COAGULATION OR DERABLES Performing Organization Address [facility] Co de Phone Number [facility] [address] [place] [address] * (ABNORMAL) PT-INR (08/31/2015 6:25 PM CDT) PT <9.5(L) 9.5 - 11.6 sec 08/31/2015 7:10 PM CDT [facility] INR 0.9 0.9 - 1.1 08/31/2015 7:10 PM CDT [facility] Blood BLOOD SPECIMEN / Unknown Venipuncture / Unknown 08/31/2015 6:25 PM CDT 08/31/2015 6:36 PM CDT Narrative [facility] - 08/31/2015 7:10 PM CDT Conventional Warfarin Anticoagulant Therapy: INR Reference Range: 2.0-3.0 Intensive Warfarin Anticoagulant Therapy: INR Reference Range: 2.5-3.5 Gabrielle Plata MD LAB - COAGULATION OR DERABLES Performing Organization Address City/[facility]/ZIP Co de Phone Number [facility] [address] [place] [address] * PATHOLOGY/GENETICS HISTORICAL-ONBASE (08/31/2015) 08/31/2015 Historical Provider LAB - CHEMISTRY O RDERABLES Performing Organization Address City/[facility]/ZIP Co de Phone Number [address] * LAB RESULTS ORDER (08/05/2015 1:49 AM CDT) Only the most recent of2 resultswithin the time period is included. Narrative 08/05/2015 1:49 AM CDT Ordered by an unspecified provider. Scanned Document LAB - THERAPEUTIC DR MARI MONITORING ORDERABLES * (ABNORMAL) HEPATIC FUNCTION PANEL (07/18/2015 2:24 PM CDT) Alkaline Phosphatase 135(H) 38 - 126 U/L 07/18/2015 3:15 PM CDT [facility] ALT 16 12 - 78 U/L 07/18/2015 3:15 PM CDT [facility] AST 12 5 - 40 U/L 07/18/2015 3:15 PM CDT [facility] Protein Total 6.9 6.4 - 8.2 gm/dL 07/18/2015 3:15 PM CDT [facility] Albumin 2.6(L) 3.4 - 5.0 gm/dL 07/18/2015 3:15 PM CDT [facility] Bilirubin Total 0.2 0.2 - 1.0 mg/dL 07/18/2015 3:15 PM CDT [facility] Bilirubin Direct <0.1 0 - 0.3 mg/dL 07/18/2015 3:15 PM CDT [facility] Blood BLOOD SPECIMEN / Unknown Venipuncture / Unknown 07/18/2015 2:24 PM CDT 07/18/2015 2:35 PM CDT Loy Grider MD LAB - CHEMISTRY RM MOSS [facility] Organization Address City/State/[facility] Co de Phone Number [facility] [address] [place] [address] * NEURAXIAL BLOCK (04/03/2014 10:41 AM EXPORT SPECIALIST) Narrative Yolanda Dean APRN-CRNA - 04/03/2014 10:41 AM EXPORT SPECIALIST CHRISTI Kat 04/03/2014 10:41 AM NEURAXIAL BLOCK [...] * BLOOD TYPE VERIFICATION (04/03/2014 8:57 AM EXPORT SPECIALIST) ABO A 04/03/2014 9:53 AM EXPORT SPECIALIST [facility] Rh Type Positive 04/03/2014 9:53 AM EXPORT SPECIALIST [facility] Miscellaneous samples (specimen) BLOOD SPECIMEN / Unknown Venipuncture / Unknown 04/03/2014 8:57 AM EXPORT SPECIALIST 04/03/2014 9:22 AM EXPORT SPECIALIST Jaren Vázquez MD LAB - BLOOD BANK ORD ERABLES [facility] [address] Care Teams Chairman President And Chief Executive Officer Relationship Specialty Start Date End Date Mario Logan MD [address] [place] [address] [place] [address] PCP - General 05/24/19
--- OUTSIDE RECORDS SUMMARY | 2024-05-06 13:41 | XMS_ITS | Clinical Summary ---
Author Organization [facility] [employer] Address [address] [facility] [place] [address] Care Team Providers Care Lead Electrical Controls Engineer Name Role Phone Mario Logan MD Primary Care Provider [phone] Source Comments [facility],non-owned Affiliates and Associated Physician Practices is amultiple site organization consisting of ambulatory clinics and hospital sitesin [place], [place], [place]. This disclosure is being madepursuant to the Care Everywhere program and may not contain all information available regarding this patient. Last updated 17.[facility] [employer] Allergies Active Allergy Reactions Criticality Noted Date [...] naloxone HCl (NARCAN) 4 MG/0.1ML nasal spray [place] 1 spray into the nose as needed [...] migh t be different from the original. [id number] Problem Noted Date Diagnosed Date Non-reactive NST [...] 02/28/2014 Overview (05/05/2019): Confirmed dose-270 mg from [facility]. Scanned Into media. Previously used heroin and [...] 05/30/04: neg 2000: CRISTIAN 3 s/p LEEP [place] Evaluate anatomy not seen on prior sonogram [...] P24 AG PANEL Routine 03/10/2019 1:24 PM JACQUARD CARD LACER Supervision of high risk in second trimester (HCC) PAP LB HPV HR DNA Routine 11/11/2018 12: 09 PM CDT Cervical cancer screening HEPATITIS C ANTIBODY Routine 11/11/2018 12:07 PM CDT Supervision of high risk , antepartum (HCC) from Last 3 Months or Most Recently Relevant to Health Maintenance Results * HIV-1 HIV-2 ANTIBODY + HIV P24 AG PANEL (03/10/2019 1:24 PM JACQUARD CARD LACER) HIV1/2 Ab + P24 Ag Non Reactive Non Reactive 03/10/2019 2:57 PM JACQUARD CARD LACER [facility] Blood BLOOD SPECIMEN / Unknown Venipuncture / Unknown 03/10/2019 1:24 PM JACQUARD CARD LACER 03/10/2019 1:49 PM JACQUARD CARD LACER Narrative [facility] - 03/10/2019 2:57 PM JACQUARD CARD LACER No Laboratory evidence of HIV infection. Ivana Thomas MARKET NEWS REPORTER-OVEN UNLOADER LAB - CHEMISTRY ORDERABLES [facility] [address] [place] [address] * PAP LB HPV HR DNA (11/11/2018 12:09 PM CDT) Diagnosis Comment 11/15/2018 8:07 PM CDT [facility] ([facility]) Comment:NEGATIVE FOR INTRAEP ITHELIAL LESION OR MALIGNANCY. Specimen Adequacy Comment 019 8:07 PM CDT [facility] ([facility]) Comment: Satisfactory for evaluation. No endocervical component is identified. An endocervical component is not commonly seen in the patient. Performed by Comment 11/15/2018 8:07 PM CDT [facility] ([facility]) Comment:Bernarda Hutchins Chief Design Engineer (ASCP) Comment . 11/15/2018 8:07 PM CDT [facility] ([facility]) Note Comment 11/15/2018 8:07 PM CDT [facility] ([facility]) Comment: The Pap smear is a screening test designed to aid in the detection of premalignant and malignant conditions of the uterine cervix. It is not a diagnostic procedure and should not be used as the sole means of detecting cervical cancer. Both false-positive and false-negative reports do occur. Human papillomavirus High Risk Negative Negative 11/15/2018 8:07 PM CDT [facility] ([facility]) Comment: This high-risk HPV test detects thirteen high-risk types (16/18/31/33/35/39/45/51/52/56/58/59/68) without differentiation. Pathology/Cytolo gy ENTIRE ENDOCERVIX / Unknown Collection / Unknown 11/11/2018 12:09 PM CDT 11/11/2018 12:27 PM CDT [facility] ([facility]) - 11/15/2018 8:07 PM CDT Performed at: 01 - [address] [id number] Ditch Repairer: Onelia Barbosa MD, Phone: [phone] Performed at: 02 - [address] [id number] Ditch Repairer: Onelia Barbosa MD, Phone: [phone] Specimen Comment: Source.............Endocervix Specimen Comment: LMP / Prev Treat...Conization;[place] / BX Specimen Comment: Other.............. Specimen Comment: No. of containers..01 ThinPrep Vial Helen Zurita MARKET NEWS REPORTER-OVEN UNLOADER LAB - PATHOLOG Y/CYTOLOGY ORDERABLES [facility] ([facility]) [address] [place] [address] * HEPATITIS C ANTIBODY (11/11/2018 12:07 PM CDT) HCV Antibody Screen Non Reactive Non Reactive 11/11/2018 1:55 PM CDT [facility] HCV S/C Ratio 0.19 0.00 - 0.79 11/11/2018 1:55 PM CDT [facility] Comment: Fcnafv-dg-xfaavy ratio (S/CO) <0.80: Non Reactive Blood BLOOD SPECIMEN / Unknown Venipuncture / Unknown 11/11/2018 12:07 PM CDT 11/11/2018 12:56 PM CDT Narrative [facility] - 11/11/2018 1:55 PM CDT Non Reactive - Antibodies to Hepatitis C virus (HCV) were not detected, result does not exclude early acute HCV infection. Helen Zurita APRN-OVEN UNLOADER LAB - CHEMISTR Y ORDERABLES Performing Organization Address City/[facility]/ZIP Co de Phone Number [facility] [address] [place] [address] from Last 3 Months or Most Recently [...] 11:00 AM 03/17/2019 7:31 PM Care Teams Lead Electrical Controls Engineer Relationship Specialty Start Date End Date Mario Logan MD [address] [place] [address] [place] [id number] PCP - General 05/24/19
[2024-05-06 13:54] LABS: Influenza A QL RT-PCR Negative (Negative); Influenza B QL RT-PCR Negative (Negative); RSV RNA, RT-PCR Negative (Negative); SARS-CoV-2 RNA PCR Negative (Negative)
[2024-05-06] MEDS: LORazepam INJ (*CRX) 2 MG/ML VIAL IM (16:12)
[2024-05-06] MEDS: HALOPERIDOL LACTATE 5 MG/ML VIAL IM (16:13)
[2024-05-06] MEDS: NICOTINE (*PBKC) 21 MG PATCH 1 PATCH TRANSDERM (16:23)
--- NOTE | 2024-05-06 16:45 | PC.NURSE ---
[address] call for eval 1500 [place] arrived 1550 pt trying to elope and eloped through back door pt made involuntary 1550 maintanance paged for pt elopement and pt violence 155 [place] police department called for pt elopement and pt being made involuntary 155 [place] police arrived and brought pt back into hospital 1556 pt yelling at staff and stating she is not staying states she is going to smoke and she wants her things 1600 pt placed in seclusion order written by dr Awad police took pt to room and door closed and locked pt banging on door 1613 meds given to calm pt 1620 seclusion discontinued 1625 pt given sandwich and jello and soda calm at this time 1700 pt resting quietly sitter at bedside
--- NOTE | 2024-05-06 19:15 | PC.NURSE ---
Patient resting comfortably, no unsafe behaviors noted at this time. Continue chief security and safety officer at bedside.
--- NOTE | 2024-05-06 20:30 | PC.NURSE ---
Patient resting comfortably, no unsafe behaviors noted at this time. Continue safety clothing and equipment developer at bedside.
--- NOTE | 2024-05-06 21:13 | PC.NURSE ---
Patient resting comfortably, no unsafe behaviors noted at this time. Continue aviation safety officer at bedside.
--- NOTE | 2024-05-06 22:31 | PC.NURSE ---
Patient resting comfortably, no unsafe behaviors noted at this time. Continue manager food safety at bedside.
--- NOTE | 2024-05-06 23:18 | PC.NURSE ---
Patient resting comfortably, no unsafe behaviors noted at this time. Continue safety engineer at bedside.
[2024-05-07] VITALS: BP 112/74; PULSE 72; RESP 18; TEMP 36.6; O2SAT 97
--- NOTE | 2024-05-07 00:21 | PC.NURSE ---
Patient resting comfortably, no unsafe behaviors noted at this time. Continue environmental safety specialist at bedside.
--- NOTE | 2024-05-07 01:13 | PC.NURSE ---
Patient resting comfortably, no unsafe behaviors noted at this time. Continue product safety consultant at bedside.
--- NOTE | 2024-05-07 02:34 | PC.NURSE ---
Patient resting comfortably, no unsafe behaviors noted at this time. Continue product safety consultant at bedside.
--- NOTE | 2024-05-07 03:10 | PC.NURSE ---
Patient resting comfortably, no unsafe behaviors noted at this time. Continue safety deposit supervisor at bedside.
[2024-05-07 04:00] VITALS: BP 107/76; PULSE 66; RESP 18; TEMP 36.3; O2SAT 99
--- NOTE | 2024-05-07 04:24 | PC.NURSE ---
Patient resting comfortably, no unsafe behaviors noted at this time. Continue safety technician at bedside.
--- NOTE | 2024-05-07 05:11 | PC.NURSE ---
Patient resting comfortably, no unsafe behaviors noted at this time. Continue product safety associate at bedside.
--- NOTE | 2024-05-07 06:04 | PC.NURSE ---
Patient resting comfortably, no unsafe behaviors noted at this time. Continue product safety officer at bedside.
--- NOTE | 2024-05-07 07:32 | PC.NURSE ---
0777 spoke with margarita cavanaugh they will start trying hospitals again this am pt declined to all hospitals called yesterday will start new list of hospitals today pt resting quietly in bed sitter at bedside vitals on every 4hrs no restraints at this time
[2024-05-07 08:06] VITALS: BP 104/70; PULSE 63; RESP 18; TEMP 36.4; O2SAT 99
--- NOTE | 2024-05-07 09:23 | PC.NURSE ---
4250 chart faxed to [facility] [address] SPOKE WITH PT ON PHONE
--- NOTE | 2024-05-07 09:28 | PC.NURSE ---
[address] HERNANDEZ WE ARE TO KEEPING A SITTER WITH THE PT
[2024-05-07] MEDS: OLANZapine 2.5 MG TABLET 5 MG PO (09:34)
[2024-05-07] MEDS: busPIRone HCL 5 MG TABLET PO (11:10)
[2024-05-07 12:02] VITALS: BP 95/65; PULSE 63; RESP 16; TEMP 36.4; O2SAT 100
== END 2024-05-07 12:12 ==
PROVIDERS: Preventive Medicine Aerospace Medicine; Emergency Provider Family Medicine
DX: S40.812A Abrasion of left upper arm, initial encounter (principal); R45.851 Suicidal ideations; F32.A Depression, unspecified; F17.210 Nicotine dependence, cigarettes, uncomplicated; Z79.899 Other long term (current) drug therapy; X78.9XXA Intentional self-harm by unspecified sharp object, initial encounter; Z20.822 Contact with and (suspected) exposure to COVID-19
CPT/HCPCS: 36415; 80053; 80143; 80179; 80307; 81003; 81025; 82077; 85025; 87637; 96372; 99285; A9270; J1630; J2060

== ENCOUNTER 2024-05-17 03:01 | Emergency (ER) | payer OTHER, SELFPAY ==
--- NOTE | ~2024-05-17 | XR_ITS ---
EXAMINATION: XR tibia fibula LT 2V DATE: 05/17/2024 03:57 INDICATION: Left lower leg injury and pain. TECHNIQUE: 2 views of left tibia and fibula were obtained. COMPARISON: None. FINDINGS: Alignment is normal. No fracture. There is mild osteoarthritis of talonavicular joint. IMPRESSION: 1. No fracture. Reviewed, dictated and finalized at location A. IMPRESSION: 1. No fracture.
--- NOTE | ~2024-05-17 | XR_ITS ---
EXAMINATION: XR femur LT min 2V DATE: 05/17/2024 03:57 INDICATION: Left thigh pain. Injury. TECHNIQUE: 2 views of the left femur on 4 radiographs were obtained. COMPARISON: None. FINDINGS: Alignment is normal. No fracture. Joint spaces are normal. No knee joint effusion. IMPRESSION: 1. Normal left femur. Reviewed, dictated and finalized at location A. IMPRESSION: 1. Normal left femur.
--- OUTSIDE RECORDS SUMMARY | 2024-05-17 03:03 | XMS_ITS | Encounter Summary ---
Author Organization [facility] Address [address] [place] [address] Care Team Providers Care Education Rep Name Role Phone None, Provider Primary Care Provider Unavaila ble Encounter Details Date Type Department Care Team (Late st Contact Info) Description 07/31/2018 Abstract [facility]FL CONVERSION [address] [place] [address] , Generic Conversion, Social History [...] on filedocumented in this encounter Care Teams Education Rep Relationship Specialty Start Date End Date None, Provider, PCP - General UNKNOWN PHYSICIAN SPECIALTY 07/13/23 documented as of this encounter
--- OUTSIDE RECORDS SUMMARY | 2024-05-17 03:03 | XMS_ITS | Clinical Summary ---
Author Organization [facility] Address [address] [place] [address] Care Team Providers Care Echo Tech Name Role Phone None, Provider Primary Care [...] drink = 0.6 oz pur e alcohol) [facility] Utilities Answer Date Recorded In the past 12 months has e [employer] gas, oil, or water [employer] threatened to shut off services in your [...] any time in the past 12 m [facility], were you homeless or living in a halfway (including now)? Yes 10/13/2023 Comments No Sex and Gender Information Value Date Recorded Sex Assigned at Not on file Legal Sex Female 11:36 PM CDT Gender Identity Not on file Sexual Orientation Not on file Last Filed Vital Signs Vital Sign Reading Time Taken Comments Blood Pressure 125/80 02/04/2024 6:44 PM HARDWOOD FINISHER Pulse 85 02/04/2024 6:44 PM HARDWOOD FINISHER Temperature 36.9 C (98.5 F) 02/04/2024 6:44 PM HARDWOOD FINISHER Respiratory Rate 16 02/04/2024 6:44 PM HARDWOOD FINISHER Oxygen Saturation 100% 02/04/2024 6:44 PM HARDWOOD FINISHER Inhaled Oxygen Concentration - - Weight 52.7 kg (116 lb 1.6 oz) 02/04/2024 6:44 P M HARDWOOD FINISHER Height 154.9 cm (5' 1 ) 02/04/2024 6:44 PM HARDWOOD FINISHER Body Mass Index 21.94 02/04/2024 6:44 PM HARDWOOD FINISHER Plan of Treatment Health Maintenance Due Date [...] VARGHESE NON-REACT VARGHESE 10/13/2023 1:41 PM CDT [facility] Comment:HBsAg NOT DETECTED. HEP B CORE IGM NON-REACT VARGHESE NON-REACT VARGHESE 10/13/2023 1:41 PM CDT [facility] Comment: IgM ANTI HBc NOT DETECTED. DOES NOT EXCLUDE THE POSSIBILITY OF EXPOSURE TO OR INFECTION WITH HBV. NO RETEST REQUIRED. HIGH DOSES OF BIOTIN MAY INTERFERE WITH THIS TEST RESULT. CORRELATION TO CLINICAL HISTORY AND PRESENTATION RECOMMENDED. HAV IGM NON-REACT VARGHESE NON-REACT VARGHESE 10/13/2023 1:41 PM CDT [facility] Comment: IgM ANTI HAV NOT DETECTED. DOES NOT EXCLUDE THE POSSIBILITY OF EXPOSURE TO OR INFECTION WITH HAV. LEVELS OF IgM ANTI HAV MAY BE BELOW THE CUTOFF IN EARLY INFECTION. HEPATITIS C AB NON-REACT VARGHESE NON-REACT VARGHESE 10/13/2023 1:42 PM CDT [facility] Comment: ANTIBODIES TO HCV NOT DETECTED. DOES NOT EXCLUDE THE POSSIBILITY OF EXPOSURE TO HCV. 10/13/2023 3:24 AM CDT us Tenisha Cheema MD LABORATORY Final Result [facility] [address] [place] [address], [id number] from Last 3 Months or Most Recently Relevant to Health Maintenance Insurance [employer] Advance Directives Documents on File Type Date Recorded Patient Mud Cleaner Operator Expl anation Advance Directives and Living Will 05/10/2015 12:00 AM ADVANCED DIRECTIVES Advance Directives and Living Will 08/06/2013 12:00 AM ADVANCED DIRECTIVES Advance Directives and Living Will 12/28/2012 12:00 AM ADVANCED DIRECTIVES * Full Code (Latest Code Status on File) Date Activated Date Inactivated Comments 10/13/2023 5:53 AM 10/14/2023 10:50 AM Care Teams Echo Tech Relationship Specialty Start Date End Date None, Provider, MD PCP - General UNKNOWN PHYSICIAN SPECIALTY 07/13/23
--- OUTSIDE RECORDS SUMMARY | 2024-05-17 03:03 | XMS_ITS | Clinical Summary ---
Author Organization [facility] Address [address] [place] [address] Care Team Providers Care Slat Basket Maker Helper Machine Name Role Phone Christofer Stewart MD Primary [...] 1.7 cm about 1.5 years ago in [facility] - obtain US of thyroid, labs [...] on file Legal Sex Female 11:53 AM ACADEMIC AFFAIRS MANAGER Gender Identity Not on file Sexual Orientation [...] patient's age to complete this topic Insurance [facility] Advance Directives For more information, please contact: [phone] * Full Code (Latest Code Status on File) Date Activated Date Inactivated Comments 10/20/2023 12:17 PM 10/20/2023 8:58 PM Care Teams Slat Basket Maker Helper Machine Relationship Specialty Start Date End Date Christofer Stewart MD [address] [facility] [address] SAMEER Ruvalcaba [address] [address] PCP - General Family Medicine 06/23/23
--- OUTSIDE RECORDS SUMMARY | 2024-05-17 03:03 | XMS_ITS | Clinical Summary ---
Author Organization [facility] Address [address] [place] [address] Care Team Providers Care Project Manager Retail Name Role Phone Mario Logan MD Primary Care Provider Source Comments [facility],non-owned Affiliates and Associated Physician Practices is amultiple site organization consisting of ambulatory clinics and hospital sitesin [place], [place], [place] and [place]. This disclosure is being madepursuant to the Care Everywhere program and may not contain all information available regarding this patient. Last updated 17.[facility] Allergies Active Allergy Reactions Criticality Noted Date [...] naloxone HCl (NARCAN) 4 MG/0.1ML nasal spray [place] 1 spray into the nose as needed [...] migh t be different from the original. [id number] Problem Noted Date Diagnosed Date Non-reactive NST [...] 02/28/2014 Overview (05/05/2019): Confirmed dose-270 mg from [facility]. Scanned Into media. Previously used heroin [...] 05/30/04: neg 2000: [facility]STIAN 3 s/p LEEP [place] Evaluate anatomy not seen on prior sonogram [...] P24 AG PANEL Routine 03/10/2019 1:24 PM CHEMISTRY FACULTY MEMBER Supervision of high risk in second trimester PAP LB HPV HR DNA Routine 11/11/2018 12: 09 PM CDT Cervical cancer screening HEPATITIS C ANTIBODY Routine 11/11/2018 12:07 PM CDT Supervision of high risk , antepartum from Last 3 Months or Most Recently Relevant to Health Maintenance Results * HIV-1 HIV-2 ANTIBODY + HIV P24 AG PANEL (03/10/2019 1:24 PM CHEMISTRY FACULTY MEMBER) HIV1/2 Ab + P24 Ag Non Reactive Non Reactive 03/10/2019 2:57 PM CHEMISTRY FACULTY MEMBER [facility] Blood BLOOD SPECIMEN / Unknown Venipuncture / Unknown 03/10/2019 1:24 PM CHEMISTRY FACULTY MEMBER 03/10/2019 1:49 PM CHEMISTRY FACULTY MEMBER Narrative [facility] - 03/10/2019 2:57 PM CHEMISTRY FACULTY MEMBER No Laboratory evidence of HIV infection. Ivana Thomas DIPPER AND DRIER-CLERK OF COURT LAB - CHEMISTRY ORDERABLES [facility] [address] [place] [address] * PAP LB HPV HR DNA (11/11/2018 12:09 PM CDT) Diagnosis Comment 11/15/2018 8:07 PM CDT [facility] ([facility]) Comment:NEGATIVE FOR INTRAEP ITHELIAL LESION OR MALIGNANCY. Specimen Adequacy Comment 019 8:07 PM CDT [facility] ([facility]) Comment: Satisfactory for evaluation. No endocervical component is identified. An endocervical component is not commonly seen in the patient. Performed by Comment 11/15/2018 8:07 PM CDT [facility] ([facility]) Comment:Bernarda Hutchins Care Coordination Manager (ASCP) Comment . 11/15/2018 8:07 PM CDT [facility] ([facility]) Note Comment 11/15/2018 8:07 PM CDT [facility] ([facility]) Comment: The Pap smear is a screening test designed to aid in the detection of premalignant and malignant conditions of the uterine cervix. It is not a diagnostic procedure and should not be used as the sole means of detecting cervical cancer. Both false-positive and false-negative reports do occur. Human papillomavirus High Risk Negative Negative 11/15/2018 8:07 PM CDT [facility] ([facility]) Comment: This high-risk HPV test detects thirteen high-risk types (16/18/31/33/35/39/45/51/52/56/58/59/68) without differentiation. Pathology/Cytolo gy ENTIRE ENDOCERVIX / Unknown Collection / Unknown 11/11/2018 12:09 PM CDT 11/11/2018 12:27 PM CDT [facility] ([facility]) - 11/15/2018 8:07 PM CDT Performed at: 01 - [address] [id number] Trapeze Artist: Onelia Barbosa MD, Phone: [phone] Performed at: 02 - [address] [id number] Trapeze Artist: Onelia Barbosa MD, Phone: [phone] Specimen Comment: Source.............Endocervix Specimen Comment: LMP / Prev Treat...Conization;[place] / BX Specimen Comment: Other.............. Specimen Comment: No. of containers..01 ThinPrep Vial Helen Zurita APRN-CLERK OF COURT LAB - PATHOLOG Y/CYTOLOGY ORDERABLES [facility] ([facility]) [address] [place] [address] * HEPATITIS C ANTIBODY (11/11/2018 12:07 PM CDT) HCV Antibody Screen Non Reactive Non Reactive 11/11/2018 1:55 PM CDT [facility] HCV S/C Ratio 0.19 0.00 - 0.79 11/11/2018 1:55 PM CDT [facility] Comment: Qdscvo-cz-ozdcjl ratio (S/CO) <0.80: Non Reactive Blood BLOOD SPECIMEN / Unknown Venipuncture / Unknown 11/11/2018 12:07 PM CDT 11/11/2018 12:56 PM CDT Narrative [facility] - 11/11/2018 1:55 PM CDT Non Reactive - Antibodies to Hepatitis C virus (HCV) were not detected, result does not exclude early acute HCV infection. Helen Zurita APRN-CLERK OF COURT LAB - CHEMISTR Y ORDERABLES Performing Organization Address City/[facility] Co de Phone Number [facility] [address] [place] [address] from Last 3 Months or Most Recently [...] 11:00 AM 03/17/2019 7:31 PM Care Teams Project Manager Retail Relationship Specialty Start Date End Date Mario Logan MD [address] [place] [address] PCP - General 05/24/19
--- OUTSIDE RECORDS SUMMARY | 2024-05-17 03:03 | XMS_ITS | Referral Summary ---
Author Organization [facility] Address [address] [place] [address] Care Team Providers Care Candle Molder Machine Name Role Phone Christofer Stewart MD [...] 1.7 cm about 1.5 years ago in [facility] - obtain US of thyroid, [...] on file Legal Sex Female 11:53 AM WIRE SPOOLER Gender Identity Not on file Sexual Orientation [...] Plan of Treatment Not on file Insurance [facility] Advance Directives For more information, please contact: [phone] * Full Code (Latest Code Status on File) Date Activated Date Inactivated Comments 10/20/2023 12:17 PM 10/20/2023 8:58 PM Care Teams Candle Molder Machine Relationship Specialty Start Date End Date Christofer Stewart MD [address] [facility] [address] ESTRELLA A [address] [address] PCP - General Family Medicine 06/23/23
[2024-05-17 03:06] VITALS: BP 142/63; PULSE 93; RESP 18; TEMP 36.6; O2SAT 100
--- OUTSIDE RECORDS SUMMARY | 2024-05-17 03:27 | XMS_ITS | Clinical Summary ---
Author Organization [facility] Address [address] [place] [address] Care Team Providers Care Systems Programmer Name Role Phone None, Provider Primary Care [...] 0.6 oz pur e alcohol) [facility] Utilities Answer Date Recorded In the past 12 months has e [employer] gas, oil, or water [employer] threatened to shut off services in [...] any time in the past 12 m [facility], were you homeless or living in a snf (including now)? Yes 10/13/2023 Comments No Sex and Gender Information Value Date Recorded Sex Assigned at Not on file Legal Sex Female 11:36 PM CDT Gender Identity Not on file Sexual Orientation Not on file Last Filed Vital Signs Vital Sign Reading Time Taken Comments Blood Pressure 125/80 02/04/2024 6:44 PM PLANT OPERATOR Pulse 85 02/04/2024 6:44 PM PLANT OPERATOR Temperature 36.9 C (98.5 F) 02/04/2024 6:44 PM PLANT OPERATOR Respiratory Rate 16 02/04/2024 6:44 PM PLANT OPERATOR Oxygen Saturation 100% 02/04/2024 6:44 PM PLANT OPERATOR Inhaled Oxygen Concentration - - Weight 52.7 kg (116 lb 1.6 oz) 02/04/2024 6:44 P M PLANT OPERATOR Height 154.9 cm (5' 1 ) 02/04/2024 6:44 PM PLANT OPERATOR Body Mass Index 21.94 02/04/2024 6:44 PM PLANT OPERATOR Plan of Treatment Health Maintenance Due Date [...] VARGHESE NON-REACT VARGHESE 10/13/2023 1:41 PM CDT [facility] Comment:HBsAg NOT DETECTED. HEP B CORE IGM NON-REACT VARGHESE NON-REACT VARGHESE 10/13/2023 1:41 PM CDT [facility] Comment: IgM ANTI HBc NOT DETECTED. DOES NOT EXCLUDE THE POSSIBILITY OF EXPOSURE TO OR INFECTION WITH HBV. NO RETEST REQUIRED. HIGH DOSES OF BIOTIN MAY INTERFERE WITH THIS TEST RESULT. CORRELATION TO CLINICAL HISTORY AND PRESENTATION RECOMMENDED. HAV IGM NON-REACT VARGHESE NON-REACT VARGHESE 10/13/2023 1:41 PM CDT [facility] Comment: IgM ANTI HAV NOT DETECTED. DOES NOT EXCLUDE THE POSSIBILITY OF EXPOSURE TO OR INFECTION WITH HAV. LEVELS OF IgM ANTI HAV MAY BE BELOW THE CUTOFF IN EARLY INFECTION. HEPATITIS C AB NON-REACT VARGHESE NON-REACT VARGHESE 10/13/2023 1:42 PM CDT [facility] Comment: ANTIBODIES TO HCV NOT DETECTED. DOES NOT EXCLUDE THE POSSIBILITY OF EXPOSURE TO HCV. 10/13/2023 3:24 AM CDT us Tenisha Cheema MD LABORATORY Final Result [facility] [address] [place] [address], [id number] from Last 3 Months or Most Recently Relevant to Health Maintenance Insurance [employer] Advance Directives Documents on File Type Date Recorded Patient Funder Expl anation Advance Directives and Living Will 05/10/2015 12:00 AM ADVANCED DIRECTIVES Advance Directives and Living Will 08/06/2013 12:00 AM ADVANCED DIRECTIVES Advance Directives and Living Will 12/28/2012 12:00 AM ADVANCED DIRECTIVES * Full Code (Latest Code Status on File) Date Activated Date Inactivated Comments 10/13/2023 5:53 AM 10/14/2023 10:50 AM Care Teams Systems Programmer Relationship Specialty Start Date End Date None, Provider, MD PCP - General UNKNOWN PHYSICIAN SPECIALTY 07/13/23
--- OUTSIDE RECORDS SUMMARY | 2024-05-17 03:27 | XMS_ITS | Clinical Summary ---
Author Organization [facility] Address [address] [facility] [place] [address] Care Team Providers Care Compliance Monitor Name Role Phone Mario Logan MD Primary Care Provider Source Comments [facility],non-owned Affiliates and Associated Physician Practices is amultiple site organization consisting of ambulatory clinics and hospital sitesin [place], [place], [place] and [place]. This disclosure is being madepursuant to the Care Everywhere program and may not contain all information available regarding this patient. Last updated 17.[facility] Allergies Active Allergy Reactions Criticality Noted Date [...] naloxone HCl (NARCAN) 4 MG/0.1ML nasal spray [place] 1 spray into the nose as needed [...] migh t be different from the original. [id number] Problem Noted Date Diagnosed Date Non-reactive NST [...] (05/05/2019): Confirmed dose-270 mg from [facility]. Scanned Into media. Previously used [...] 05/30/04: neg 2000: CRISTIAN 3 s/p LEEP [place] Evaluate anatomy not seen on prior sonogram [...] P24 AG PANEL Routine 03/10/2019 1:24 PM MILLER ROD MILL Supervision of high risk in second trimester PAP LB HPV HR DNA Routine 11/11/2018 12: 09 PM CDT Cervical cancer screening HEPATITIS C ANTIBODY Routine 11/11/2018 12:07 PM CDT Supervision of high risk , antepartum from Last 3 Months or Most Recently Relevant to Health Maintenance Results * HIV-1 HIV-2 ANTIBODY + HIV P24 AG PANEL (03/10/2019 1:24 PM MILLER ROD MILL) HIV1/2 Ab + P24 Ag Non Reactive Non Reactive 03/10/2019 2:57 PM MILLER ROD MILL [facility] Blood BLOOD SPECIMEN / Unknown Venipuncture / Unknown 03/10/2019 1:24 PM MILLER ROD MILL 03/10/2019 1:49 PM MILLER ROD MILL Narrative [facility] - 03/10/2019 2:57 PM MILLER ROD MILL No Laboratory evidence of HIV infection. Ivana Thomas BATCHMAKER-LICENSING REGISTRATION EXAMINER LAB - CHEMISTRY ORDERABLES [facility] [address] [place] [address] * PAP LB HPV HR DNA (11/11/2018 12:09 PM CDT) Diagnosis Comment 11/15/2018 8:07 PM CDT [facility] ([facility]) Comment:NEGATIVE FOR INTRAEP ITHELIAL LESION OR MALIGNANCY. Specimen Adequacy Comment 019 8:07 PM CDT [facility] ([facility]) Comment: Satisfactory for evaluation. No endocervical component is identified. An endocervical component is not commonly seen in the patient. Performed by Comment 11/15/2018 8:07 PM CDT [facility] ([facility]) Comment:Bernarda Hutchins Putty And Patch Worker (ASCP) Comment . 11/15/2018 8:07 PM CDT [facility] ([facility]) Note Comment 11/15/2018 8:07 PM CDT [facility] ([facility]) Comment: The Pap smear is a screening test designed to aid in the detection of premalignant and malignant conditions of the uterine cervix. It is not a diagnostic procedure and should not be used as the sole means of detecting cervical cancer. Both false-positive and false-negative reports do occur. Human papillomavirus High Risk Negative Negative 11/15/2018 8:07 PM CDT [facility] ([facility]) Comment: This high-risk HPV test detects thirteen high-risk types (16/18/31/33/35/39/45/51/52/56/58/59/68) without differentiation. Pathology/Cytolo gy ENTIRE ENDOCERVIX / Unknown Collection / Unknown 11/11/2018 12:09 PM CDT 11/11/2018 12:27 PM CDT [facility] ([facility]) - 11/15/2018 8:07 PM CDT Performed at: 01 - [address] [id number] Refuge Worker: Onelia Barbosa MD, Phone: [phone] Performed at: 02 - [address] [id number] Refuge Worker: Onelia Barbosa MD, Phone: [phone] Specimen Comment: Source.............Endocervix Specimen Comment: LMP / Prev Treat...Conization;[place] / BX Specimen Comment: Other.............. Specimen Comment: No. of containers..01 ThinPrep Vial Helen Zurita APRN-LICENSING REGISTRATION EXAMINER LAB - PATHOLOG Y/CYTOLOGY ORDERABLES [facility] ([facility]) [address] [place] [address] * HEPATITIS C ANTIBODY (11/11/2018 12:07 PM CDT) HCV Antibody Screen Non Reactive Non Reactive 11/11/2018 1:55 PM CDT [facility] HCV S/C Ratio 0.19 0.00 - 0.79 11/11/2018 1:55 PM CDT [facility] Comment: Vrwsat-wa-ulettn ratio (S/CO) <0.80: Non Reactive Blood BLOOD SPECIMEN / Unknown Venipuncture / Unknown 11/11/2018 12:07 PM CDT 11/11/2018 12:56 PM CDT Narrative [facility] - 11/11/2018 1:55 PM CDT Non Reactive - Antibodies to Hepatitis C virus (HCV) were not detected, result does not exclude early acute HCV infection. Helen Zurita APRN-LICENSING REGISTRATION EXAMINER LAB - CHEMISTR Y ORDERABLES Performing Organization Address City/[facility] Co de Phone Number [facility] [address] [place] [address] from Last 3 Months or Most Recently [...] 11:00 AM 03/17/2019 7:31 PM Care Teams Compliance Monitor Relationship Specialty Start Date End Date Mario Logan MD [address] [address] PCP - General 05/24/19
--- OUTSIDE RECORDS SUMMARY | 2024-05-17 03:27 | XMS_ITS | Clinical Summary ---
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
--- OUTSIDE RECORDS SUMMARY | 2024-05-17 03:27 | XMS_ITS | Referral Summary ---
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
== END 2024-05-17 03:55 | disposition home or self-care (01) ==
PROVIDERS: Emergency Provider Family Medicine; PCP Family Medicine
DX: S80.12XA Contusion of left lower leg, initial encounter (principal); Z79.899 Other long term (current) drug therapy; Z87.891 Personal history of nicotine dependence; Y04.2XXA Assault by strike against or bumped into by another person, initial encounter
CPT/HCPCS: 73552; 73590; 99284

== ENCOUNTER 2024-05-22 21:37 | Emergency (ER) | payer OTHER, SELFPAY ==
--- NOTE | ~2024-05-22 | XR_ITS ---
EXAMINATION: XR chest 1V portable Exam Date/Time: 05/22/2024 21:44 CDT HISTORY: cough X 3 DAYS, pain with inspiration. Comparison: 03/23/2024. RESULT: Lines, tubes, and devices: None. Lungs and pleura: Clear. Cardiomediastinal silhouette: Stable. Other: No acute osseous or upper abdominal finding. IMPRESSION: No acute cardiopulmonary process. Reviewed, dictated and finalized at location K.
--- OUTSIDE RECORDS SUMMARY | 2024-05-22 21:39 | XMS_ITS | Referral Summary ---
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
--- OUTSIDE RECORDS SUMMARY | 2024-05-22 21:39 | XMS_ITS | Clinical Summary ---
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
--- OUTSIDE RECORDS SUMMARY | 2024-05-22 21:39 | XMS_ITS | Clinical Summary ---
Author Organization [facility] Address [address] [place] [address] Care Team Providers Care Medical Accounting Clerk Name Role Phone Mario Logan MD Primary Care Provider [phone] Source Comments [facility],non-owned Affiliates and Associated Physician Practices is amultiple site organization consisting of ambulatory clinics and hospital sitesin [place], [place], [place] and [place]. This disclosure is being madepursuant to the Care Everywhere program and may not contain all information available regarding this patient. Last updated 17.[facility] Allergies Active Allergy Reactions Criticality Noted Date [...] naloxone HCl (NARCAN) 4 MG/0.1ML nasal spray Harlan 1 spray into the nose as needed [...] migh t be different from the original. [id number] Problem Noted Date Diagnosed Date Non-reactive NST [...] 02/28/2014 Overview (05/05/2019): Confirmed dose-270 mg from [facility]. Scanned Into media. Previously used heroin and [...] 05/30/04: neg 2000: CRISTIAN 3 s/p LEEP [place] Evaluate anatomy not seen on prior sonogram [...] P24 AG PANEL Routine 03/10/2019 1:24 PM STEFFEN HOUSE SUPERVISOR Supervision of high risk in second trimester PAP LB HPV HR DNA Routine 11/11/2018 12: 09 PM CDT Cervical cancer screening HEPATITIS C ANTIBODY Routine 11/11/2018 12:07 PM CDT Supervision of high risk , antepartum from Last 3 Months or Most Recently Relevant to Health Maintenance Results * HIV-1 HIV-2 ANTIBODY + HIV P24 AG PANEL (03/10/2019 1:24 PM STEFFEN HOUSE SUPERVISOR) HIV1/2 Ab + P24 Ag Non Reactive Non Reactive 03/10/2019 2:57 PM STEFFEN HOUSE SUPERVISOR [facility] Blood BLOOD SPECIMEN / Unknown Venipuncture / Unknown 03/10/2019 1:24 PM STEFFEN HOUSE SUPERVISOR 03/10/2019 1:49 PM STEFFEN HOUSE SUPERVISOR Narrative [facility] - 03/10/2019 2:57 PM STEFFEN HOUSE SUPERVISOR No Laboratory evidence of HIV infection. Ivana Thomas RIGHT OF WAY MAN-LEATHER PRODUCTS SUPERVISOR LAB - CHEMISTRY ORDERABLES [facility] [address] [place] [address] * PAP LB HPV HR DNA (11/11/2018 12:09 PM CDT) Diagnosis Comment 11/15/2018 8:07 PM CDT [facility] ([facility]) Comment:NEGATIVE FOR INTRAEP ITHELIAL LESION OR MALIGNANCY. Specimen Adequacy Comment 019 8:07 PM CDT [facility] ([facility]) Comment: Satisfactory for evaluation. No endocervical component is identified. An endocervical component is not commonly seen in the patient. Performed by Comment 11/15/2018 8:07 PM CDT [facility] ([facility]) Comment:Bernarda Hutchins Director Of Marketing And Promotions (ASCP) Comment . 11/15/2018 8:07 PM CDT [facility] ([facility]) Note Comment 11/15/2018 8:07 PM CDT [facility] ([facility]) Comment: The Pap smear is a screening test designed to aid in the detection of premalignant and malignant conditions of the uterine cervix. It is not a diagnostic procedure and should not be used as the sole means of detecting cervical cancer. Both false-positive and false-negative reports do occur. Human papillomavirus High Risk Negative Negative 11/15/2018 8:07 PM CDT [facility] ([facility]) Comment: This high-risk HPV test detects thirteen high-risk types (16/18/31/33/35/39/45/51/52/56/58/59/68) without differentiation. Pathology/Cytolo gy ENTIRE ENDOCERVIX / Unknown Collection / Unknown 11/11/2018 12:09 PM CDT 11/11/2018 12:27 PM CDT [facility] ([facility]) - 11/15/2018 8:07 PM CDT Performed at: 01 - [address] [id number] Manager Furniture: Onelia Barbosa MD, Phone: [phone] Performed at: 02 - [address] [id number] Manager Furniture: Onelia Barbosa MD, Phone: [phone] Specimen Comment: Source.............Endocervix Specimen Comment: LMP / Prev Treat...[place] / BX Specimen Comment: Other.............. Specimen Comment: No. of containers..01 ThinPrep Vial Helen Zurita APRN-LEATHER [employer]ODUCTS SUPERVISOR LAB - PATHOLOG Y/CYTOLOGY ORDERABLES [facility] ([facility]) [address] [place] [address] * HEPATITIS C ANTIBODY (11/11/2018 12:07 PM CDT) HCV Antibody Screen Non Reactive Non Reactive 11/11/2018 1:55 PM CDT [facility] HCV S/C Ratio 0.19 0.00 - 0.79 11/11/2018 1:55 PM CDT [facility] Comment: Gsxwlb-ag-qbrfmj ratio (S/CO) <0.80: Non Reactive Blood BLOOD SPECIMEN / Unknown Venipuncture / Unknown 11/11/2018 12:07 PM CDT 11/11/2018 12:56 PM CDT Narrative [facility] - 11/11/2018 1:55 PM CDT Non Reactive - Antibodies to Hepatitis C virus (HCV) were not detected, result does not exclude early acute HCV infection. Helen Zurita APRN-LEATHER [employer]ODU[employer] SUPERVISOR LAB - CHEMISTR Y ORDERABLES Performing Organization Address City/[facility] Co de Phone Number [facility] [address] [place] [address] from Last 3 Months or Most Recently [...] 11:00 AM 03/17/2019 7:31 PM Care Teams Medical Accounting Clerk Relationship Specialty Start Date End Date Mario Logan MD [address] [place] [address] PCP - General 05/24/19
--- OUTSIDE RECORDS SUMMARY | 2024-05-22 21:39 | XMS_ITS | Clinical Summary ---
Author Organization [facility] Address [address] [place] [address] Care Team Providers Care Formal Service Waiter Name Role Phone None, Provider Primary Care [...] drink = 0.6 oz pur e alcohol) [facility] Utilities Answer Date Recorded In the past 12 months has e [employer] gas, oil, or water [employer] threatened to shut off services in your [...] any time in the past 12 m [facility], were you homeless or living in a alf (including now)? Yes 10/13/2023 Comments No Sex and Gender Information Value Date Recorded Sex Assigned at Not on file Legal Sex Female 11:36 PM CDT Gender Identity Not on file Sexual Orientation Not on file Last Filed Vital Signs Vital Sign Reading Time Taken Comments Blood Pressure 125/80 02/04/2024 6:44 PM INTERNAL COMBUSTION ENGINE INSPECTOR Pulse 85 02/04/2024 6:44 PM INTERNAL COMBUSTION ENGINE INSPECTOR Temperature 36.9 C (98.5 F) 02/04/2024 6:44 PM INTERNAL COMBUSTION ENGINE INSPECTOR Respiratory Rate 16 02/04/2024 6:44 PM INTERNAL COMBUSTION ENGINE INSPECTOR Oxygen Saturation 100% 02/04/2024 6:44 PM INTERNAL COMBUSTION ENGINE INSPECTOR Inhaled Oxygen Concentration - - Weight 52.7 kg (116 lb 1.6 oz) 02/04/2024 6:44 P M INTERNAL COMBUSTION ENGINE INSPECTOR Height 154.9 cm (5' 1 ) 02/04/2024 6:44 PM INTERNAL COMBUSTION ENGINE INSPECTOR Body Mass Index 21.94 02/04/2024 6:44 PM INTERNAL COMBUSTION ENGINE INSPECTOR Plan of Treatment Health Maintenance Due Date [...] VARGHESE NON-REACT VARGHESE 10/13/2023 1:41 PM CDT [facility] Comment:HBsAg NOT DETECTED. HEP B CORE IGM NON-REACT VARGHESE NON-REACT VARGHESE 10/13/2023 1:41 PM CDT [facility] Comment: IgM ANTI HBc NOT DETECTED. DOES NOT EXCLUDE THE POSSIBILITY OF EXPOSURE TO OR INFECTION WITH HBV. NO RETEST REQUIRED. HIGH DOSES OF BIOTIN MAY INTERFERE WITH THIS TEST RESULT. CORRELATION TO CLINICAL HISTORY AND PRESENTATION RECOMMENDED. HAV IGM NON-REACT VARGHESE NON-REACT VARGHESE 10/13/2023 1:41 PM CDT [facility] Comment: IgM ANTI HAV NOT DETECTED. DOES NOT EXCLUDE THE POSSIBILITY OF EXPOSURE TO OR INFECTION WITH HAV. LEVELS OF IgM ANTI HAV MAY BE BELOW THE CUTOFF IN EARLY INFECTION. HEPATITIS C AB NON-REACT VARGHESE NON-REACT VARGHESE 10/13/2023 1:42 PM CDT [facility] Comment: ANTIBODIES TO HCV NOT DETECTED. DOES NOT EXCLUDE THE POSSIBILITY OF EXPOSURE TO HCV. 10/13/2023 3:24 AM CDT us Tenisha Cheema MD LABORATORY Final Result [facility] [address] [place] [address], [phone] from Last 3 Months or Most Recently Relevant to Health Maintenance Insurance [employer] Advance Directives Documents on File Type Date Recorded Patient Crystal Cutter Expl anation Advance Directives and Living Will 05/10/2015 12:00 AM ADVANCED DIRECTIVES Advance Directives and Living Will 08/06/2013 12:00 AM ADVANCED DIRECTIVES Advance Directives and Living Will 12/28/2012 12:00 AM ADVANCED DIRECTIVES * Full Code (Latest Code Status on File) Date Activated Date Inactivated Comments 10/13/2023 5:53 AM 10/14/2023 10:50 AM Care Teams Formal Service Waiter Relationship Specialty Start Date End Date None, Provider, MD PCP - General UNKNOWN PHYSICIAN SPECIALTY 07/13/23
--- OUTSIDE RECORDS SUMMARY | 2024-05-22 21:39 | XMS_ITS | Encounter Summary ---
Author Organization [facility] Address [address] [place] [address] Care Team Providers Care Security Officers And Guards Name Role Phone None, Provider Primary Care Provider Unavaila ble Encounter Details Date Type Department Care Team (Late st Contact Info) Description 07/31/2018 Abstract [facility]FL CONVERSION [address] [place] [address] , Generic Conversion, Social History [...] on filedocumented in this encounter Care Teams Security Officers And Guards Relationship Specialty Start Date End Date None, Provider, PCP - General UNKNOWN PHYSICIAN SPECIALTY 07/13/23 documented as of this encounter
[2024-05-22 21:41] VITALS: BP 151/83; PULSE 94; RESP 18; TEMP 36; O2SAT 100
--- NOTE | 2024-05-22 21:54 | ED_ITS ---
HPI - URI/Sore Throat General Chief Complaint: Upper Respiratory Infection Stated Complaint: upper respiratory Time Seen by Provider: 05/22/24 21:42 Source: patient Mode of arrival: ambulatory Limitations: no limitations History of Present Illness HPI Narrative: patient is a 44-year-old female with a cough and discolored phlegm for the past day. She has been in and out of the hospital for psych over the past 2 weeks. MD elicited complaint: cough and nasal congestion Pertinent past history: other ( Psych, tobacco abuse) Onset (ago): day(s) ( 1) Consistency: constant Severity: moderate Pain scale (0-10): 0 Description of mucous: yellow and green Able to tolerate fluids by mouth: Yes Exacerbating factors: nothing Relieving factors: nothing Context: sick contacts Associated symptoms: denies other symptoms Treatments prior to arrival: none Related Data Home Medications ?Medication ?Instructions ?Recorded ?Confirmed ?Last Taken ?Type aripiprazole 5 mg tablet (Abilify) 5 mg PO DAILY 05/17/24 05/17/24 Unknown History lorazepam 0.5 mg tablet (Ativan) 0.5 mg PO Q6H PRN anxiety 05/17/24 05/17/24 Unknown History trazodone 50 mg tablet mg 05/17/24 Unknown History Allergies Allergy/AdvReac Type Severity Reaction Status Date / Time Penicillins Allergy Severe Difficulty Verified 05/22/24 21:44 Swallowing codeine AdvReac Swelling Verified 05/22/24 21:44 Review of Systems Review of Systems: All systems reviewed & are unremarkable except as noted in HPI and below Constitutional: Constitutional: Reports no additional constitutional complaints Eyes: Eyes: Reports no additional eye complaints ENT: Reports system reviewed and no additional complaints, except as documented Cardiovascular: Cardiovascular: Reports no additional cardiovascular complaints Respiratory: Respiratory: Reports no additional respiratory complaints Gastrointestinal: Gastrointestinal: Reports no additional gastrointestinal complaints Genitourinary: Genitourinary: Reports no additional female genitourinary complaints Musculoskeletal: Musculoskeletal: Reports no additional musculoskeletal complaints Integumentary/Breasts: Skin/Breast: Reports system reviewed and no additional complaints, except as docu Neurologic: Reports system reviewed and no additional complaints, except as documented Psychiatric: Psychiatric: Reports no additional psychiatric complaints Endocrine: Endocrine: Reports no additional endocrine complaints Hematologic/Lymphatic: Hematologic/Lymphatic: Reports no additional hematologic/lymphatic complaints Allergic/Immunologic: Allergic/Immunologic: Reports no additional allergic/immunologic complaints [facility] Past Medical History Medical History Drug abuse Tooth decay Surgical History Surgical History History of x3 Family History Family History Father No problems noted. Father Lung cancer Mother Heart disease Social History Social History Years smoked: 20 Smoking status: Current every day smoker Tobacco type: cigarettes Second hand tobacco smoke exposure: Yes Alcohol intake: former Substance use: former Substance use type: methamphetamine Gender identity (if verbalized by the patient): Female Spiritual care concerns: No Exam Const: General: healthy appearing Nutritional Appearance: well nourished Orientation/consciousness: patient oriented x3 HENMT: Head: normal to inspection Ears: external ears normal Face/Nose/Sinus: Normal external nose present Eyes: Conjunctivae: conjunctivae normal Pupils: Equal, round and reactive pupils present EOM: EOMs intact bilaterally Neck: Neck: normal visual inspection Chest: Chest palpation & inspection: normal inspection of the chest Resp: Effort & Inspection: normal respiratory effort, not labored, no retractions, not tachypneic and no use of accessory muscles Auscultation: clear to auscultation bilaterally, no crackles, no rales, rhonchi, no wheezes, breath sounds present and diminished lung sounds Cardio: Rate: regular rate Rhythm: regular rhythm Heart sounds: no murmurs GI: Inspection: non-distended GI Palp: Yes Soft to palpation and No Tenderness to palpation present (GI) Auscultation: normal bowel sounds : General: Yes bladder normal to palpation Back/Spine/Pelvis: Back: no CVA tenderness Skin: General skin exam: normal color Rashes: no rashes Wounds: no wounds Neuro: General: patient oriented x3 Cranial nerves: Yes Nystagmus not present Speech: normal speech Gait exam (Neuro): Normal gait present Extrem: General: normal to inspection Psych: Mental Status: mental status grossly normal Affect: normal affect Attitude: cooperative Course Vital Signs Vital signs: Vital Signs Temperature 36.0 C L 05/22/24 21:41 Pulse Rate 94 05/22/24 21:41 Respiratory Rate 18 05/22/24 21:41 Blood Pressure 151/83 H 05/22/24 21:41 Pulse Oximetry 100 05/22/24 21:41 Oxygen Delivery Room Air 05/22/24 21:41 Temperature 36.0 C L 05/22/24 21:41 Pulse Rate 94 05/22/24 21:41 Respiratory Rate 18 05/22/24 21:41 Blood Pressure 151/83 H 05/22/24 21:41 Pulse Oximetry 100 05/22/24 21:41 Oxygen Delivery Room Air 05/22/24 21:41 MDM - URI/Sore Throat MDM Narrative Medical decision making narrative: patient is a 44-year-old female with a cough and green phlegm. Acute b ronchitis. We will do a Z-King. Prednisone. Encouraged patient to stay on her Abilify. No suicide or homicide ideation. Lab Data Attestation: I reviewed the patient's lab results. Labs: Lab Results 05/22/24 Range/Units 21:43 Influenza A (RT-PCR) Negative (Negative) Influenza B (RT-PCR) Negative (Negative) RSV (RT-PCR) Negative (Negative) SARS-CoV-2 RNA (RT-PCR) Negative (Negative) Imaging Data Attestation: I personally reviewed and interpreted this imaging study as follows: Radiologist's impression: chest x-ray is negative for acute process Discharge Plan Discharge Clinical Impression: Acute bronchitis Qualifiers: Bronchitis organism: unspecified organism Qualified Code(s): J20.9 - Acute bronchitis, unspecified Patient Disposition: Home, Self-Care Condition: Stable Instructions: Antibiotic Form, Acute Bronchitis (ED) Patient Language: Albanian Prescriptions: New azithromycin 500 mg tablet See Rx Instructions .ROUTE .COMPLEX Qty: 3 0RF Rx Instructions: For 500 mg dose pack: take 500 mg once daily for 3 days prednisone 20 mg tablet 20 mg PO DAILY 3 Days Qty: 3 0RF No Action trazodone 50 mg tablet aripiprazole [Abilify] 5 mg tablet 5 mg PO DAILY lorazepam [Ativan] 0.5 mg tablet 0.5 mg PO Q6H PRN (Reason: anxiety) Follow-up/Referrals: UNKNOWN,DOCTOR [Primary Care Provider] - Time of Disposition: 22:37
[2024-05-22 22:24] LABS: Influenza A QL RT-PCR Negative (Negative); Influenza B QL RT-PCR Negative (Negative); RSV RNA, RT-PCR Negative (Negative); SARS-CoV-2 RNA PCR Negative (Negative)
[2024-05-22] MEDS: AZITHROMYCIN 250 MG TABLET 500 MG PO (22:45)
[2024-05-22] MEDS: predniSONE 20 MG TABLET PO (22:45)
== END 2024-05-22 22:49 | disposition home or self-care (01) ==
PROVIDERS: Emergency Provider Emergency Medicine
DX: J20.9 Acute bronchitis, unspecified (principal); F17.210 Nicotine dependence, cigarettes, uncomplicated; Z20.822 Contact with and (suspected) exposure to COVID-19
CPT/HCPCS: 71045; 87637; 99283; A9270; J7512

== ENCOUNTER 2024-05-24 04:46 | Emergency (ER) | payer OTHER, SELFPAY ==
--- OUTSIDE RECORDS SUMMARY | 2024-05-24 04:50 | XMS_ITS | Encounter Summary ---
Author Organization [facility] Address [address] [place] [id number] Care Team Providers Care Marble Installer Name Role Phone None, Provider Primary Care Provider Unavaila ble Encounter Details Date Type Department Care Team (Late st Contact Info) Description 07/31/2018 Abstract SFL CONVERSION [address] [place] [address] , Generic Conversion, Social History [...] on filedocumented in this encounter Care Teams Marble Installer Relationship Specialty Start Date End Date None, Provider, PCP - General UNKNOWN PHYSICIAN SPECIALTY 07/13/23 documented as of this encounter
--- OUTSIDE RECORDS SUMMARY | 2024-05-24 04:50 | XMS_ITS | Clinical Summary ---
Author Organization [facility] Address [address] [place] [id number] Care Team Providers Care Port Warden Name Role Phone None, Provider Primary Care [...] drink = 0.6 oz pur e alcohol) [facility] Utilities Answer Date Recorded In the past 12 months has e [employer] gas, oil, or water [employer] threatened to shut off services in your [...] any time in the past 12 m [facility], were you homeless or living in a prison (including now)? Yes 10/13/2023 Comments No Sex and Gender Information Value Date Recorded Sex Assigned at Not on file Legal Sex Female 11:36 PM CDT Gender Identity Not on file Sexual Orientation Not on file Last Filed Vital Signs Vital Sign Reading Time Taken Comments Blood Pressure 125/80 02/04/2024 6:44 PM FULL STACK PYTHON DEVELOPER Pulse 85 02/04/2024 6:44 PM FULL STACK PYTHON DEVELOPER Temperature 36.9 C (98.5 F) 02/04/2024 6:44 PM FULL STACK PYTHON DEVELOPER Respiratory Rate 16 02/04/2024 6:44 PM FULL STACK PYTHON DEVELOPER Oxygen Saturation 100% 02/04/2024 6:44 PM FULL STACK PYTHON DEVELOPER Inhaled Oxygen Concentration - - Weight 52.7 kg (116 lb 1.6 oz) 02/04/2024 6:44 P M FULL STACK PYTHON DEVELOPER Height 154.9 cm (5' 1 ) 02/04/2024 6:44 PM FULL STACK PYTHON DEVELOPER Body Mass Index 21.94 02/04/2024 6:44 PM FULL STACK PYTHON DEVELOPER Plan of Treatment Health Maintenance Due [...] VARGHESE NON-REACT VARGHESE 10/13/2023 1:41 PM CDT [facility] Comment:HBsAg NOT DETECTED. HEP B CORE IGM NON-REACT VARGHESE NON-REACT VARGHESE 10/13/2023 1:41 PM CDT [facility] Comment: IgM ANTI HBc NOT DETECTED. DOES NOT EXCLUDE THE POSSIBILITY OF EXPOSURE TO OR INFECTION WITH HBV. NO RETEST REQUIRED. HIGH DOSES OF BIOTIN MAY INTERFERE WITH THIS TEST RESULT. CORRELATION TO CLINICAL HISTORY AND PRESENTATION RECOMMENDED. HAV IGM NON-REACT VARGHESE NON-REACT VARGHESE 10/13/2023 1:41 PM CDT [facility] Comment: IgM ANTI HAV NOT DETECTED. DOES NOT EXCLUDE THE POSSIBILITY OF EXPOSURE TO OR INFECTION WITH HAV. LEVELS OF IgM ANTI HAV MAY BE BELOW THE CUTOFF IN EARLY INFECTION. HEPATITIS C AB NON-REACT VARGHESE NON-REACT VARGHESE 10/13/2023 1:42 PM CDT [facility] Comment: ANTIBODIES TO HCV NOT DETECTED. DOES NOT EXCLUDE THE POSSIBILITY OF EXPOSURE TO HCV. 10/13/2023 3:24 AM CDT us Tenisha Cheema MD LABORATORY Final Result [facility] [address] [place] [address], [id number] from Last 3 Months or Most Recently Relevant to Health Maintenance Insurance [employer] Advance Directives Documents on File Type Date Recorded Patient Mechanical Integrity Specialist Expl anation Advance Directives and Living Will 05/10/2015 12:00 AM ADVANCED DIRECTIVES Advance Directives and Living Will 08/06/2013 12:00 AM ADVANCED DIRECTIVES Advance Directives and Living Will 12/28/2012 12:00 AM ADVANCED DIRECTIVES * Full Code (Latest Code Status on File) Date Activated Date Inactivated Comments 10/13/2023 5:53 AM 10/14/2023 10:50 AM Care Teams Port Warden Relationship Specialty Start Date End Date None, Provider, MD PCP - General UNKNOWN PHYSICIAN SPECIALTY 07/13/23
--- OUTSIDE RECORDS SUMMARY | 2024-05-24 04:50 | XMS_ITS | Clinical Summary ---
Author Organization [facility] Address [address] [place] [address] Care Team Providers Care Manager Social Responsibility Name Role Phone Christofer Stewart MD Primary [...] 1.7 cm about 1.5 years ago in [facility] - obtain US of thyroid, labs [...] on file Legal Sex Female 11:53 AM MARKETING AUTOMATION ANALYST Gender Identity Not on file Sexual Orientation [...] age to complete this topic Insurance [facility] Advance Directives For more information, please contact: [phone] * Full Code (Latest Code Status on File) Date Activated Date Inactivated Comments 10/20/2023 12:17 PM 10/20/2023 8:58 PM Care Teams Manager Social Responsibility Relationship Specialty Start Date End Date Christofer Stewart MD [address] SAMEER Ruvalcaba [address] [address] PCP - General Family Medicine 06/23/23
--- OUTSIDE RECORDS SUMMARY | 2024-05-24 04:50 | XMS_ITS | Referral Summary ---
Author Organization [facility] Address [address] [place] [address] Care Team Providers Care Microstrategy Architect Developer Name Role Phone Christofer Stewart MD Primary [...] 1.7 cm about 1.5 years ago in [facility] - obtain US of thyroid, labs ordered [...] on file Legal Sex Female 11:53 AM CONSULAR OFFICER Gender Identity Not on file Sexual Orientation [...] Treatment Not on file Insurance [facility] Advance Directives For more information, please contact: [phone] * Full Code (Latest Code Status on File) Date Activated Date Inactivated Comments 10/20/2023 12:17 PM 10/20/2023 8:58 PM Care Teams Microstrategy Architect Developer Relationship Specialty Start Date End Date Christofer Stewart MD [address] ESTRELLA A [address] [address] PCP - General Family Medicine 06/23/23
--- OUTSIDE RECORDS SUMMARY | 2024-05-24 04:50 | XMS_ITS | Clinical Summary ---
Author Organization [facility] Address [address] [facility] [place] [address] Care Team Providers Care Sales Research Analyst Name Role Phone Mario Logan MD Primary Care Provider Source Comments [facility],non-owned Affiliates and Associated Physician Practices is amultiple site organization consisting of ambulatory clinics and hospital sitesin [place], [place], [place] and [place]. This disclosure is being madepursuant to the Care Everywhere program and may not contain all information available regarding this patient. Last updated 17.[facility] Allergies Active Allergy Reactions Criticality Noted Date [...] naloxone HCl (NARCAN) 4 MG/0.1ML nasal spray [place] 1 spray into the nose as needed [...] migh t be different from the original. [id number] Problem Noted Date Diagnosed Date Non-reactive NST [...] 05/30/04: neg 2000: CRISTIAN 3 s/p LEEP Deepak Evaluate anatomy not seen on prior sonogram [...] P24 AG PANEL Routine 03/10/2019 1:24 PM COKE INSPECTOR Supervision of high risk in second trimester PAP LB HPV HR DNA Routine 11/11/2018 12: 09 PM CDT Cervical cancer screening HEPATITIS C ANTIBODY Routine 11/11/2018 12:07 PM CDT Supervision of high risk , antepartum from Last 3 Months or Most Recently Relevant to Health Maintenance Results * HIV-1 HIV-2 ANTIBODY + HIV P24 AG PANEL (03/10/2019 1:24 PM COKE INSPECTOR) HIV1/2 Ab + P24 Ag Non Reactive Non Reactive 03/10/2019 2:57 PM COKE INSPECTOR [facility] Blood BLOOD SPECIMEN / Unknown Venipuncture / Unknown 03/10/2019 1:24 PM COKE INSPECTOR 03/10/2019 1:49 PM COKE INSPECTOR Narrative [facility] - 03/10/2019 2:57 PM COKE INSPECTOR No Laboratory evidence of HIV infection. Ivana Thomas MACHINE PACKAGING TECHNICIAN-STITCHER STANDARD MACHINE LAB - CHEMISTRY ORDERABLES [facility] [address] [place] [address] * PAP LB HPV HR DNA (11/11/2018 12:09 PM CDT) Diagnosis Comment 11/15/2018 8:07 PM CDT [facility] ([facility]) Comment:NEGATIVE FOR INTRAEP ITHELIAL LESION OR MALIGNANCY. Specimen Adequacy Comment 019 8:07 PM CDT [facility] ([facility]) Comment: Satisfactory for evaluation. No endocervical component is identified. An endocervical component is not commonly seen in the patient. Performed by Comment 11/15/2018 8:07 PM CDT [facility] ([facility] Comment:Bernarda Hutchins Manager Advertising (ASCP) Comment . 11/15/2018 8:07 PM CDT [facility] ([facility]) Note Comment 11/15/2018 8:07 PM CDT [facility] ([facility]) Comment: The Pap smear is a screening test designed to aid in the detection of premalignant and malignant conditions of the uterine cervix. It is not a diagnostic procedure and should not be used as the sole means of detecting cervical cancer. Both false-positive and false-negative reports do occur. Human papillomavirus High Risk Negative Negative 11/15/2018 8:07 PM CDT [facility] ([facility]) Comment: This high-risk HPV test detects thirteen high-risk types (16/18/31/33/35/39/45/51/52/56/58/59/68) without differentiation. Pathology/Cytolo gy ENTIRE ENDOCERVIX / Unknown Collection / Unknown 11/11/2018 12:09 PM CDT 11/11/2018 12:27 PM CDT [facility] ([facility]) - 11/15/2018 8:07 PM CDT Performed at: 01 - [address] [id number] Slasher Runner: Onelia Barbosa MD, Phone: [phone] Performed at: 02 - [address] [id number] Slasher Runner: Onelia Barbosa MD, Phone: [phone] Specimen Comment: Source.............Endocervix Specimen Comment: LMP / Prev Treat...Conization;[place] / BX Specimen Comment: Other.............. Specimen Comment: No. of containers..01 ThinPrep Vial Helen Zurita APRN-STITCHER STANDARD MACHINE LAB - PATHOLOG Y/CYTOLOGY ORDERABLES [facility] ([facility]) [address] [place] [address] * HEPATITIS C ANTIBODY (11/11/2018 12:07 PM CDT) HCV Antibody Screen Non Reactive Non Reactive 11/11/2018 1:55 PM CDT [facility] HCV S/C Ratio 0.19 0.00 - 0.79 11/11/2018 1:55 PM CDT [facility] Comment: Tzmvob-xf-bmtmvw ratio (S/CO) <0.80: Non Reactive Blood BLOOD SPECIMEN / Unknown Venipuncture / Unknown 11/11/2018 12:07 PM CDT 11/11/2018 12:56 PM CDT Narrative [facility] - 11/11/2018 1:55 PM CDT Non Reactive - Antibodies to Hepatitis C virus (HCV) were not detected, result does not exclude early acute HCV infection. Helen Zurita APRN-STITCHER STANDARD MACHINE LAB - CHEMISTR Y ORDERABLES Performing Organization Address City/[facility] Co de Phone Number [facility] [address] [place] [address] from Last 3 Months or Most Recently [...] 11:00 AM 03/17/2019 7:31 PM Care Teams Sales Research Analyst Relationship Specialty Start Date End Date Mario Logan MD [address] [address] PCP - General 05/24/19
[2024-05-24 04:57] VITALS: BP 134/79; PULSE 82; RESP 18; TEMP 36.2; O2SAT 96
--- NOTE | 2024-05-24 05:10 | ED.GENADULT ---
HPI - General Adult General Chief complaint: Anxiety Stated complaint: auditory hallucinations Source: patient History of Present Illness HPI narrative: 44 years old white female came to the ED by ambulance for anxiety. Patient lives with her mother, Ambulance report that patient having some auditory hallucination and patient state she has been in an argument with mother who constantly telling her that she is crazy. . Patient report after the argument she left home and was running all night trying to avoid the police because she was afraid they would put her in a mental institution. Patient report having a psychiatrist and medications at home including Abilify and hydroxyzine and another medication for anxiety. Currently patient is asymptomatic, denies any fever, chills, nausea, vomiting, chest pain, shortness of breath, abdominal pain or headache, she denies any suicidal or homicidal ideation and would like to go to sleep Related Data Home Medications ?Medication ?Instructions ?Recorded ?Confirmed ?Last Taken ?Type aripiprazole 5 mg tablet (Abilify) 5 mg PO DAILY 05/17/24 05/17/24 Unknown History lorazepam 0.5 mg tablet (Ativan) 0.5 mg PO Q6H PRN anxiety 05/17/24 05/17/24 Unknown History trazodone 50 mg tablet mg 05/17/24 Unknown History Allergies Allergy/AdvReac Type Severity Reaction Status Date / Time Penicillins Allergy Severe Difficulty Verified 05/22/24 21:44 Swallowing codeine AdvReac Swelling Verified 05/22/24 21:44 Review of Systems Review of Systems: All systems reviewed & are unremarkable except as noted in HPI and below PMFSH Past Medical History Medical History Drug abuse Tooth decay Surgical History Surgical History History of x3 Family History Family History Father No problems noted. Father Lung cancer Mother Heart disease Social History Social History Years smoked: 20 Smoking status: Current every day smoker Tobacco type: cigarettes Second hand tobacco smoke exposure: Yes Alcohol intake: former Substance use: former Substance use type: prescription drug Gender identity (if verbalized by the patient): Female Spiritual care concerns: No Exam Narrative: General appearance: Well-developed, malnourished, was eating during the examination Skin: Normal color Head: Normocephalic, nontraumatic Eyes: Clear conjunctiva ENT: Oropharynx normal, ears normal, nose normal Neck: Supple, nontender Chest and respiratory: Airway patent, no respiratory distress, no accessory muscle use Heart: Regular rate/rhythm Abdomen: Soft, nontender, no organomegaly, quiet bowel sounds Vascular: Normal peripheral pulses, normal capillary refill. 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 as tested, no gross motor deficit Course Vital Signs Vital signs: Vital Signs Temperature 36.2 C L 05/24/24 04:57 Pulse Rate 82 05/24/24 04:57 Respiratory Rate 18 05/24/24 04:57 Blood Pressure 134/79 05/24/24 04:57 Pulse Oximetry 96 05/24/24 04:57 Oxygen Delivery Room Air 05/24/24 04:57 Temperature 36.2 C L 05/24/24 04:57 Pulse Rate 82 05/24/24 04:57 Respiratory Rate 18 05/24/24 04:57 Blood Pressure 134/79 05/24/24 04:57 Pulse Oximetry 96 05/24/24 04:57 Oxygen Delivery Room Air 05/24/24 04:57 Medical Decision Making MDM Narrative Medical decision making narrative: patient came to the ED by ambulance with depression, anxiety, denying any suicidal or homicidal ideation. Labs or imaging are not recommended at this time. Vital Signs Vital Signs: Vital Signs Temperature 36.2 C L 05/24/24 04:57 Pulse Rate 82 05/24/24 04:57 Respiratory Rate 18 05/24/24 04:57 Blood Pressure 134/79 05/24/24 04:57 Pulse Oximetry 96 05/24/24 04:57 Oxygen Delivery Room Air 05/24/24 04:57 Temperature 36.2 C L 05/24/24 04:57 Pulse Rate 82 05/24/24 04:57 Respiratory Rate 18 05/24/24 04:57 Blood Pressure 134/79 05/24/24 04:57 Pulse Oximetry 96 05/24/24 04:57 Oxygen Delivery Room Air 05/24/24 04:57 Discharge Plan Discharge Clinical Impression: Major depressive disorder Patient Disposition: Home, Self-Care Condition: Stable Instructions: Depression (ED), Anxiety (ED) Additional Instructions: Return if symptoms are worsening , call your family physician for appointment, take Tylenol as as needed for aches and pain, continue home medications.. Patient Language: Congolese Prescriptions: No Action trazodone 50 mg tablet aripiprazole [Abilify] 5 mg tablet 5 mg PO DAILY lorazepam [Ativan] 0.5 mg tablet 0.5 mg PO Q6H PRN (Reason: anxiety) azithromycin 500 mg tablet See Rx Instructions .ROUTE .COMPLEX Qty: 3 0RF Rx Instructions: For 500 mg dose pack: take 500 mg once daily for 3 days prednisone 20 mg tablet 20 mg PO DAILY 3 Days Qty: 3 0RF Follow-up/Referrals: UNKNOWN,DOCTOR [Primary Care Provider] -
--- NOTE | 2024-05-24 05:13 | PC.NURSE ---
After ERP spoke w/ pt and evaluated, pt will be d/c home w/ instructions to f/u w/ her psychiatrist and secure a plan to move away from family members causing her stress and anxiety. Pt agrees to try to call her psychiatrist in AM and get in for f/u. Pt is completely alert and cooperative and maintaining normal conversation while in ER.
[2024-05-24 05:15] VITALS: BP 130/74; PULSE 80; RESP 18; O2SAT 98
== END 2024-05-24 05:15 | disposition home or self-care (01) ==
PROVIDERS: Emergency Provider Emergency Medicine
DX: F32.9 Major depressive disorder, single episode, unspecified (principal); F17.210 Nicotine dependence, cigarettes, uncomplicated; Z79.899 Other long term (current) drug therapy
CPT/HCPCS: 99281

== ENCOUNTER 2024-05-27 13:20 | Emergency (ER) | payer OTHER, SELFPAY ==
[2024-05-27 13:20] VITALS: BP 138/100; PULSE 108; RESP 20; TEMP 36.8; O2SAT 100
--- OUTSIDE RECORDS SUMMARY | 2024-05-27 13:27 | XMS_ITS | Clinical Summary ---
Author Organization [facility] Address [address] [place] [address] Care Team Providers Care Resident Physician Name Role Phone None, Provider Primary Care [...] In the past 12 months has e [employer] gas, oil, or water [employer] threatened to shut off services in your [...] any time in the past 12 m [facility], were you homeless or living in a fdc (including now)? Yes 10/13/2023 Comments No Sex and Gender Information Value Date Recorded Sex Assigned at Not on file Legal Sex Female 11:36 PM CDT Gender Identity Not on file Sexual Orientation Not on file Last Filed Vital Signs Vital Sign Reading Time Taken Comments Blood Pressure 125/80 02/04/2024 6:44 PM WEB APPLICATION DEVELOPER Pulse 85 02/04/2024 6:44 PM WEB APPLICATION DEVELOPER Temperature 36.9 C (98.5 F) 02/04/2024 6:44 PM WEB APPLICATION DEVELOPER Respiratory Rate 16 02/04/2024 6:44 PM WEB APPLICATION DEVELOPER Oxygen Saturation 100% 02/04/2024 6:44 PM WEB APPLICATION DEVELOPER Inhaled Oxygen Concentration - - Weight 52.7 kg (116 lb 1.6 oz) 02/04/2024 6:44 P M WEB APPLICATION DEVELOPER Height 154.9 cm (5' 1 ) 02/04/2024 6:44 PM WEB APPLICATION DEVELOPER Body Mass Index 21.94 02/04/2024 6:44 PM WEB APPLICATION DEVELOPER Plan of Treatment Health Maintenance Due Date Last Done Comments Annual Physical 1985 Pneumococcal Vaccine: Pediatrics (0 to 5 Years) and At-Risk Patients (6 to 64 Years) (1 of 2 - PCV) 01/29/1988 02/24/2016 Hepatitis B Vaccines (3 of 3 - 19+ 3-dose series) 06/10/2019 01/27/2019, 12/09/2018 Mammogram Screening 2022 COVID-19 Vaccine ( season) 2023 Cervical Cancer Screening Pap Smear (Age 30 [...] VARGHESE NON-REACT VARGHESE 10/13/2023 1:41 PM CDT [facility] Comment:HBsAg NOT DETECTED. HEP B CORE IGM NON-REACT VARGHESE NON-REACT VARGHESE 10/13/2023 1:41 PM CDT [facility] Comment: IgM ANTI HBc NOT DETECTED. DOES NOT EXCLUDE THE POSSIBILITY OF EXPOSURE TO OR INFECTION WITH HBV. NO RETEST REQUIRED. HIGH DOSES OF BIOTIN MAY INTERFERE WITH THIS TEST RESULT. CORRELATION TO CLINICAL HISTORY AND PRESENTATION RECOMMENDED. HAV IGM NON-REACT VARGHESE NON-REACT VARGHESE 10/13/2023 1:41 PM CDT [facility] Comment: IgM ANTI HAV NOT DETECTED. DOES NOT EXCLUDE THE POSSIBILITY OF EXPOSURE TO OR INFECTION WITH HAV. LEVELS OF IgM ANTI HAV MAY BE BELOW THE CUTOFF IN EARLY INFECTION. HEPATITIS C AB NON-REACT VARGHESE NON-REACT VARGHESE 10/13/2023 1:42 PM CDT [facility] Comment: ANTIBODIES TO HCV NOT DETECTED. DOES NOT EXCLUDE THE POSSIBILITY OF EXPOSURE TO HCV. 10/13/2023 3:24 AM CDT Tenisha Cheema MD LABORATORY Final Result [facility] [address] [place] [address], [id number] from Last 3 Months or Most Recently Relevant to Health Maintenance [place] [address] [place] [address] Advance Directives Documents on File Type Date Recorded Patient Manager Supply Expl anation Advance Directives and Living Will 05/10/2015 12:00 AM ADVANCED DIRECTIVES Advance Directives and Living Will 08/06/2013 12:00 AM ADVANCED DIRECTIVES Advance Directives and Living Will 12/28/2012 12:00 AM ADVANCED DIRECTIVES * Full Code (Latest Code Status on File) Date Activated Date Inactivated Comments 10/13/2023 5:53 AM 10/14/2023 10:50 AM Care Teams Resident Physician Relationship Specialty Start Date End Date None, Provider, PCP - General UNKNOWN PHYSICIAN SPECIALTY 07/13/23
--- OUTSIDE RECORDS SUMMARY | 2024-05-27 13:27 | XMS_ITS | Clinical Summary ---
Author Organization [facility] Address [address] [place] [address] Care Team Providers Care Motorboat Operator Name Role Phone Christofer Stewart MD [...] 1.7 cm about 1.5 years ago in [facility] - obtain US of thyroid, labs ordered [...] on file Legal Sex Female 11:53 AM CASINO MANAGER Gender Identity Not on file Sexual [...] patient's age to complete this topic Insurance [facility] Advance Directives For more information, please contact: [phone] * Full Code (Latest Code Status on File) Date Activated Date Inactivated Comments 10/20/2023 12:17 PM 10/20/2023 8:58 PM Care Teams Motorboat Operator Relationship Specialty Start Date End Date Christofer Stewart MD [address] [facility] [address] SAMEER Ruvalcaba [address] [address] PCP - General Family Medicine 06/23/23
--- OUTSIDE RECORDS SUMMARY | 2024-05-27 13:27 | XMS_ITS | Encounter Summary ---
Author Organization [facility] Address [address] [place] [address] Care Team Providers Care Barrel Repairer Name Role Phone None, Provider Primary Care Provider Unavaila ble Encounter Details Date Type Department Care Team (Late st Contact Info) Description 07/31/2018 Abstract SFL CONVERSION [address] [place] [address] , Generic Conversion, Social History [...] on filedocumented in this encounter Care Teams Barrel Repairer Relationship Specialty Start Date End Date None, Provider, PCP - General UNKNOWN PHYSICIAN SPECIALTY 07/13/23 documented as of this encounter
--- OUTSIDE RECORDS SUMMARY | 2024-05-27 13:27 | XMS_ITS | Referral Summary ---
Author Organization [facility] Address [address] [place] [address] Care Team Providers Care Breast Worker Name Role Phone Christofer Stewart MD Primary [...] about 1.5 years ago in [facility] - obtain US of thyroid, labs ordered [...] on file Legal Sex Female 11:53 AM INTERNATIONAL REPRESENTATIVE Gender Identity Not on file Sexual Orientation [...] Plan of Treatment Not on file Insurance [facility] Advance Directives For more information, please contact: [phone] * Full Code (Latest Code Status on File) Date Activated Date Inactivated Comments 10/20/2023 12:17 PM 10/20/2023 8:58 PM Care Teams Breast Worker Relationship Specialty Start Date End Date Christofer Stewart MD [address] [facility] [address] ESTRELLA A [address] [address] PCP - General Family Medicine 06/23/23
--- OUTSIDE RECORDS SUMMARY | 2024-05-27 13:27 | XMS_ITS | Clinical Summary ---
Author Organization [facility] [email or web address] Address [address] [place] [address] Care Team Providers Care Professional Development Manager Name Role Phone Mario Logan MD Primary Care Provider Source Comments [facility],non-owned Affiliates and Associated Physician Practices is amultiple site organization consisting of ambulatory clinics and hospital sitesin [place], [place], [place] and [place]. This disclosure is being madepursuant to the Care Everywhere program and may not contain all information available regarding this patient. Last updated 17.[facility] [email or web address] Allergies Active Allergy Reactions Criticality Noted Date [...] naloxone HCl (NARCAN) 4 MG/0.1ML nasal spray [place] 1 spray into the nose as needed [...] migh t be different from the original. [id number] Problem Noted Date Diagnosed Date Non-reactive NST [...] (05/05/2019): Confirmed dose-270 mg from [facility]. Scanned Into media. Previously used heroin and [...] P24 AG PANEL Routine 03/10/2019 1:24 PM SUPERVISOR MOLD SHOP Supervision of high risk in second trimester PAP LB HPV HR DNA Routine 11/11/2018 12: 09 PM CDT Cervical cancer screening HEPATITIS C ANTIBODY Routine 11/11/2018 12:07 PM CDT Supervision of high risk , antepartum from Last 3 Months or Most Recently Relevant to Health Maintenance Results * HIV-1 HIV-2 ANTIBODY + HIV P24 AG PANEL (03/10/2019 1:24 PM SUPERVISOR MOLD SHOP) HIV1/2 Ab + P24 Ag Non Reactive Non Reactive 03/10/2019 2:57 PM SUPERVISOR MOLD SHOP [facility] Blood BLOOD SPECIMEN / Unknown Venipuncture / Unknown 03/10/2019 1:24 PM SUPERVISOR MOLD SHOP 03/10/2019 1:49 PM SUPERVISOR MOLD SHOP Narrative [facility] - 03/10/2019 2:57 PM SUPERVISOR MOLD SHOP No Laboratory evidence of HIV infection. Ivana Thomas [employer]ARM [employer]ARD[employer] WORKERS-NIGHT WAREHOUSE MANAGER LAB - CHEMISTRY ORDERABLES [facility] [address] [place] [address] * PAP LB HPV HR DNA (11/11/2018 12:09 PM CDT) Diagnosis Comment 11/15/2018 8:07 PM CDT [facility] ([facility]) Comment:NEGATIVE FOR INTRAEP ITHELIAL LESION OR MALIGNANCY. Specimen Adequacy Comment 019 8:07 PM CDT [facility] ([facility]) Comment: Satisfactory for evaluation. No endocervical component is identified. An endocervical component is not commonly seen in the patient. Performed by Comment 11/15/2018 8:07 PM CDT [facility] ([facility]) Comment:Bernarda Hutchins Meat Curer (ASCP) Comment . 11/15/2018 8:07 PM CDT [facility] ([facility]) Note Comment 11/15/2018 8:07 PM CDT [facility] ([facility]) Comment: The Pap smear is a screening test designed to aid in the detection of premalignant and malignant conditions of the uterine cervix. It is not a diagnostic procedure and should not be used as the sole means of detecting cervical cancer. Both false-positive and false-negative reports do occur. Human papillomavirus High Risk Negative Negative 11/15/2018 8:07 PM CDT [facility] ([facility]) Comment: This high-risk HPV test detects thirteen high-risk types (16/18/31/33/35/39/45/51/52/56/58/59/68) without differentiation. Pathology/Cytolo gy ENTIRE ENDOCERVIX / Unknown Collection / Unknown 11/11/2018 12:09 PM CDT 11/11/2018 12:27 PM CDT [facility] ([facility]) - 11/15/2018 8:07 PM CDT Performed at: 01 - [address] [id number] Guest Relations Associate: Onelia Barbosa MD, Phone: [phone] Performed at: 02 - [address] [id number] Guest Relations Associate: Onelia Barbosa MD, Phone: [phone] Specimen Comment: Source.............Endocervix Specimen Comment: LMP / Prev Treat...[place] / BX Specimen Comment: Other.............. Specimen Comment: No. of containers..01 ThinPrep Vial Helen Zurita APRN-NIGHT WAREHOUSE MANAGER LAB - PATHOLOG Y/CYTOLOGY ORDERABLES [facility] ([facility]) [address] [place] [address] * HEPATITIS C ANTIBODY (11/11/2018 12:07 PM CDT) HCV Antibody Screen Non Reactive Non Reactive 11/11/2018 1:55 PM CDT [facility] HCV S/C Ratio 0.19 0.00 - 0.79 11/11/2018 1:55 PM CDT [facility] Comment: Tgvbxt-en-nfjcuh ratio (S/CO) <0.80: Non Reactive Blood BLOOD SPECIMEN / Unknown Venipuncture / Unknown 11/11/2018 12:07 PM CDT 11/11/2018 12:56 PM CDT Narrative [facility] - 11/11/2018 1:55 PM CDT Non Reactive - Antibodies to Hepatitis C virus (HCV) were not detected, result does not exclude early acute HCV infection. Helen Zurita APRN-NIGHT WAREHOUSE MANAGER LAB - CHEMISTR Y ORDERABLES Performing Organization Address City/[facility] Co de Phone Number [facility] [address] [place] [address] from Last 3 Months or Most Recently [...] 11:00 AM 03/17/2019 7:31 PM Care Teams Professional Development Manager Relationship Specialty Start Date End Date Mario Logan MD [address] [place] [address] PCP - General 05/24/19
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
--- OUTSIDE RECORDS SUMMARY | 2024-05-27 13:58 | XMS_ITS | Referral Summary ---
Author Organization [facility] Address [address] [place] [address] Care Team Providers Care Bag Machine Operator Helper Name Role Phone Christofer Stewart MD Primary [...] 1.7 cm about 1.5 years ago in [facility] - obtain US of thyroid, labs [...] on file Legal Sex Female 11:53 AM FRAME STRIPPER AND CRUSHER Gender Identity Not on file Sexual Orientation [...] Plan of Treatment Not on file Insurance [facility] Advance Directives For more information, please contact: [phone] * Full Code (Latest Code Status on File) Date Activated Date Inactivated Comments 10/20/2023 12:17 PM 10/20/2023 8:58 PM Care Teams Bag Machine Operator Helper Relationship Specialty Start Date End Date Christofer Stewrat MD [address] [facility] [address] ESTRELLA A [address] [address] PCP - General Family Medicine 06/23/23
--- OUTSIDE RECORDS SUMMARY | 2024-05-27 13:58 | XMS_ITS | Clinical Summary ---
Author Organization [facility] [employer] Address [address] [place] [place] [address] Care Team Providers Care Ski Lift Mechanic Name Role Phone Mario Logan MD Primary Care Provider Source Comments [facility],non-owned Affiliates and Associated Physician Practices is amultiple site organization consisting of ambulatory clinics and hospital sitesin [place] and [place]. This disclosure is being madepursuant to the Care Everywhere program and may not contain all information available regarding this patient. Last updated 17.[facility] [employer] Allergies Active Allergy Reactions Criticality Noted Date [...] naloxone HCl (NARCAN) 4 MG/0.1ML nasal spray [place] 1 spray into the nose as needed [...] migh t be different from the original. [id number] Problem Noted Date Diagnosed Date Non-reactive NST [...] P24 AG PANEL Routine 03/10/2019 1:24 PM COMMUNITY CASE MANAGER Supervision of high risk in second trimester PAP LB HPV HR DNA Routine 11/11/2018 12: 09 PM CDT Cervical cancer screening HEPATITIS C ANTIBODY Routine 11/11/2018 12:07 PM CDT Supervision of high risk , antepartum from Last 3 Months or Most Recently Relevant to Health Maintenance Results * HIV-1 HIV-2 ANTIBODY + HIV P24 AG PANEL (03/10/2019 1:24 PM COMMUNITY CASE MANAGER) HIV1/2 Ab + P24 Ag Non Reactive Non Reactive 03/10/2019 2:57 PM COMMUNITY CASE MANAGER [facility] Blood BLOOD SPECIMEN / Unknown Venipuncture / Unknown 03/10/2019 1:24 PM COMMUNITY CASE MANAGER 03/10/2019 1:49 PM COMMUNITY CASE MANAGER Narrative [facility] - 03/10/2019 2:57 PM COMMUNITY CASE MANAGER No Laboratory evidence of HIV infection. Ivana Thomas SERVER SECURITY ADMINISTRATOR-CHIEF OF HOSPITAL MEDICINE LAB - CHEMISTRY ORDERABLES [facility] [address] [place] [address] * PAP LB HPV HR DNA (11/11/2018 12:09 PM CDT) Diagnosis Comment 11/15/2018 8:07 PM CDT [facility] ([facility]) Comment:NEGATIVE FOR INTRAEP ITHELIAL LESION OR MALIGNANCY. Specimen Adequacy Comment 019 8:07 PM CDT [facility] ([facility]) Comment: Satisfactory for evaluation. No endocervical component is identified. An endocervical component is not commonly seen in the patient. Performed by Comment 11/15/2018 8:07 PM CDT [facility] ([facility]) Comment:Bernarda Hutchins Design Architect (ASCP) Comment . 11/15/2018 8:07 PM CDT [facility] ([facility]) Note Comment 11/15/2018 8:07 PM CDT [facility] ([facility]) Comment: The Pap smear is a screening test designed to aid in the detection of premalignant and malignant conditions of the uterine cervix. It is not a diagnostic procedure and should not be used as the sole means of detecting cervical cancer. Both false-positive and false-negative reports do occur. Human papillomavirus High Risk Negative Negative 11/15/2018 8:07 PM CDT [facility] ([facility]) Comment: This high-risk HPV test detects thirteen high-risk types (16/18/31/33/35/39/45/51/52/56/58/59/68) without differentiation. Pathology/Cytolo gy ENTIRE ENDOCERVIX / Unknown Collection / Unknown 11/11/2018 12:09 PM CDT 11/11/2018 12:27 PM CDT [facility] ([facility]) - 11/15/2018 8:07 PM CDT Performed at: 01 - [address] [id number] Transition Program Manager: Onelia Barbosa MD, Phone: [phone] Performed at: 02 - [address] [id number] Transition Program Manager: Onelia Barbosa MD, Phone: [phone] Specimen Comment: Source.............Endocervix Specimen Comment: LMP / Prev Treat...Conization;Ranger / BX Specimen Comment: Other.............. Specimen Comment: No. of containers..01 ThinPrep Vial Helen Zurita APRN-CHIEF OF HOSPITAL MEDICINE LAB - PATHOLOG Y/CYTOLOGY ORDERABLES [facility] ([facility]) [address] [place] [address] * HEPATITIS C ANTIBODY (11/11/2018 12:07 PM CDT) HCV Antibody Screen Non Reactive Non Reactive 11/11/2018 1:[address] [facility] HCV S/C Ratio 0.19 0.00 - 0.79 11/11/2018 1:[address] [facility] Comment: Sfnsuq-md-ikqulz ratio (S/CO) <0.80: Non Reactive Blood BLOOD SPECIMEN / Unknown Venipuncture / Unknown 11/11/2018 12:07 PM CDT 11/11/2018 12:56 PM CDT Narrative [facility] - 11/11/2018 1:55 PM CDT Non Reactive - Antibodies to Hepatitis C virus (HCV) were not detected, result does not exclude early acute HCV infection. Helen Zurita APRN-CHIEF OF HOSPITAL MEDICINE LAB - CHEMISTR Y ORDERABLES Performing Organization Address City/[facility] Co de Phone Number [facility] [address] [place] [address] from Last 3 Months or Most Recently [...] 11:00 AM 03/17/2019 7:31 PM Care Teams Ski Lift Mechanic Relationship Specialty Start Date End Date Mario Logan MD [address] [place] [address] PCP - General 05/24/19
--- OUTSIDE RECORDS SUMMARY | 2024-05-27 13:58 | XMS_ITS | Encounter Summary ---
Author Organization [facility] Address [address] [place] [address] Care Team Providers Care Algologist Name Role Phone None, Provider Primary Care Provider Unavaila ble Encounter Details Date Type Department Care Team (Late st Contact Info) Description 07/31/2018 Abstract SFL CONVERSION [address] [place] [address] , Generic Conversion, Social History [...] on filedocumented in this encounter Care Teams Algologist Relationship Specialty Start Date End Date None, Provider, PCP - General UNKNOWN PHYSICIAN SPECIALTY 07/13/23 documented as of this encounter
--- OUTSIDE RECORDS SUMMARY | 2024-05-27 13:58 | XMS_ITS | Clinical Summary ---
Author Organization [facility] Address [address] [place] [address] Care Team Providers Care Decision Unit Rn Name Role Phone None, Provider Primary Care [...] drink = 0.6 oz pur e alcohol) [facility] Utilities Answer Date Recorded In the past 12 months has e [employer] gas, oil, or water Code[employer] threatened to shut off services in your [...] any time in the past 12 m [facility], were you homeless or living in a nursing home (including now)? Yes 10/13/2023 Comments No Sex and Gender Information Value Date Recorded Sex Assigned at Not on file Legal Sex Female 11:36 PM CDT Gender Identity Not on file Sexual Orientation Not on file Last Filed Vital Signs Vital Sign Reading Time Taken Comments Blood Pressure 125/80 02/04/2024 6:44 PM LINECASTING MACHINE KEYBOARD OPERATOR Pulse 85 02/04/2024 6:44 PM LINECASTING MACHINE KEYBOARD OPERATOR Temperature 36.9 C (98.5 F) 02/04/2024 6:44 PM LINECASTING MACHINE KEYBOARD OPERATOR Respiratory Rate 16 02/04/2024 6:44 PM LINECASTING MACHINE KEYBOARD OPERATOR Oxygen Saturation 100% 02/04/2024 6:44 PM LINECASTING MACHINE KEYBOARD OPERATOR Inhaled Oxygen Concentration - - Weight 52.7 kg (116 lb 1.6 oz) 02/04/2024 6:44 P M LINECASTING MACHINE KEYBOARD OPERATOR Height 154.9 cm (5' 1 ) 02/04/2024 6:44 PM LINECASTING MACHINE KEYBOARD OPERATOR Body Mass Index 21.94 02/04/2024 6:44 PM LINECASTING MACHINE KEYBOARD OPERATOR Plan of Treatment Health Maintenance Due [...] VARGHESE NON-REACT VARGHESE 10/13/2023 1:41 PM CDT [facility] Comment:HBsAg NOT DETECTED. HEP B CORE IGM NON-REACT VARGHESE NON-REACT VARGHESE 10/13/2023 1:41 PM CDT [facility] Comment: IgM ANTI HBc NOT DETECTED. DOES NOT EXCLUDE THE POSSIBILITY OF EXPOSURE TO OR INFECTION WITH HBV. NO RETEST REQUIRED. HIGH DOSES OF BIOTIN MAY INTERFERE WITH THIS TEST RESULT. CORRELATION TO CLINICAL HISTORY AND PRESENTATION RECOMMENDED. HAV IGM NON-REACT VARGHESE NON-REACT VARGHESE 10/13/2023 1:41 PM CDT [facility] Comment: IgM ANTI HAV NOT DETECTED. DOES NOT EXCLUDE THE POSSIBILITY OF EXPOSURE TO OR INFECTION WITH HAV. LEVELS OF IgM ANTI HAV MAY BE BELOW THE CUTOFF IN EARLY INFECTION. HEPATITIS C AB NON-REACT VARGHESE NON-REACT VARGHESE 10/13/2023 1:42 PM CDT [facility] Comment: ANTIBODIES TO HCV NOT DETECTED. DOES NOT EXCLUDE THE POSSIBILITY OF EXPOSURE TO HCV. 10/13/2023 3:24 AM CDT Tenisha Cheema MD LABORATORY Final Result [facility] [address] [place] [address], [phone] from Last 3 Months or Most Recently Relevant to Health Maintenance [place] [address] [place] [address] Advance Directives Documents on File Type Date Recorded Patient Business Development Associate Expl anation Advance Directives and Living Will 05/10/2015 12:00 AM ADVANCED DIRECTIVES Advance Directives and Living Will 08/06/2013 12:00 AM ADVANCED DIRECTIVES Advance Directives and Living Will 12/28/2012 12:00 AM ADVANCED DIRECTIVES * Full Code (Latest Code Status on File) Date Activated Date Inactivated Comments 10/13/2023 5:53 AM 10/14/2023 10:50 AM Care Teams Decision Unit Rn Relationship Specialty Start Date End Date None, Provider, PCP - General UNKNOWN PHYSICIAN SPECIALTY 07/13/23
--- OUTSIDE RECORDS SUMMARY | 2024-05-27 13:58 | XMS_ITS | Clinical Summary ---
Author Organization [facility] Address [address] [place] [address] Care Team Providers Care Butcher'S Assistant Name Role Phone Christofer Stewart MD [...] cm about 1.5 years ago in [facility] - obtain US of thyroid, labs [...] on file Legal Sex Female 11:53 AM EXECUTIVE ASSISTANT Gender Identity Not on file Sexual Orientation [...] to complete this topic Insurance [facility] Advance Directives For more information, please contact: [phone] * Full Code (Latest Code Status on File) Date Activated Date Inactivated Comments 10/20/2023 12:17 PM 10/20/2023 8:58 PM Care Teams Butcher'S Assistant Relationship Specialty Start Date End Date Christofer Stewart MD [address] [facility] [address] SAMEER Ruvalcaba [address] [address] PCP - General Family Medicine 06/23/23
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
--- NOTE | 2024-05-27 14:20 | PC.NURSE ---
Patient is off the phone, was able to get phone numbers and resources for womens shelters, Patient has plans with resource office to meet on Thursday at 10am. Patient reports having safe place to go this weekend.
[2024-05-27 14:48] VITALS: BP 117/79; PULSE 80; RESP 16; TEMP 36.8; O2SAT 98
== END 2024-05-27 14:48 | disposition home or self-care (01) ==
PROVIDERS: Emergency Provider Emergency Medicine; PCP Internal Medicine
DX: F43.9 Reaction to severe stress, unspecified (principal); F17.210 Nicotine dependence, cigarettes, uncomplicated
CPT/HCPCS: 99281

== ENCOUNTER 2024-06-06 18:35 | Emergency (ER) | payer OTHER, SELFPAY ==
--- NOTE | ~2024-06-06 | CT_ITS ---
CT brain wo con Ordering provider: Danette Monterroso III DO History: 44 years Female with . fall, HIT HEAD ABOVE LEFT EYE, ZAMUDIO . Comparison: January 06, 2024 Technique: CT of the head without contrast. FINDINGS: BRAIN PARENCHYMA AND CSF SPACES: No midline shift, mass effect or hemorrhage. The brain parenchyma a nd CSF spaces are otherwise normal. VISUALIZED PARANASAL SINUSES: Well aerated. MASTOIDS: Well aerated. BONES: The bones appear intact. SOFT TISSUES: Visualized nasopharynx is normal. Superficial soft tissues are normal. IMPRESSION: No acute intracranial findings. Reviewed, dictated and finalized at location A.
--- NOTE | 2024-06-06 18:36 | ECG_ITS ---
Test Date: 2024-06-06 18:44:26 Measurements Intervals [place] Rate: 90 P: 64 ND: 104 QRS: 64 QRSD: 94 T: 56 QT: 344 QTc: 423 Interpretive Statements SINUS RHYTHM POSSIBLE LEFT ATRIAL ENLARGEMENT INCOMPLETE RIGHT BUNDLE BRANCH BLOCK MINIMAL Q WAVES- ANTEROLAT/INF LEADS BASELINE ARTIFACT- AVL, V2-V3 BORDERLINE ECG Compared to ECG 02/09/2024 19:23:10 No significant changes Electronically Signed On 06-06-2024 19:55:20 CDT by Sonny Velasco D.O.
--- OUTSIDE RECORDS SUMMARY | 2024-06-06 18:37 | XMS_ITS | Clinical Summary ---
Author Organization [facility] Address [address] [place] [address] Care Team Providers Care Collating Machine Operator Name Role Phone Mario Logan MD Primary Care Provider [phone] Source Comments [facility],non-owned Affiliates and Associated Physician Practices is amultiple site organization consisting of ambulatory clinics and hospital sitesin [place], [place], [place] and [place]. This disclosure is being madepursuant to the Care Everywhere program and may not contain all information available regarding this patient. Last updated 17.[facility] Allergies Active Allergy Reactions Criticality Noted Date Comments Codeine Anaphylaxis High 07/13/2015 Naproxen GI Discomfort 07/13/2015 No problems with Ibuprofen Penicillins Urticaria,Swelling High 03/27/2014 Ketorolac Other 07/13/2015 Rapid Heart Rate Medications * This document contains information received from the source organization and may not represent a complete record from that organization. * Be aware that medications may not be up to date on this document. Alwaysverify current medications with the patient. methadone (DOLOPHINE) 10 MG tablet Take 270 mg by mouth once daily Active naloxone HCl (NARCAN) 4 MG/0.1ML nasal spray [place] 1 spray into the nose as needed (May repeat every 2 min in alternating nostrils until emergency medical help arrives for overdose) 2 device 11/12/19 Active Additional Information Patient not taking.Reported on 12/09/2018 plus iron (NATATAB) 29-1 MG tabletIndications:P regnancy Take 1 tablet by mouth once daily Reasons: 30 tablet 11 11/12/19 Active Additional Information Patient not taking.Reported on 04/21/2019 iron polysaccharides (NIFEREX 150) 150 MG capsuleIndications: Iron Deficiency Anemia Take 1 capsule by mouth once daily Reasons: Anemia From Inadequate Iron in the Body 100 capsule 1 03/24/19 Active Additional Information Patient not taking.Reported on 05/25/2019 docusate sodium (COLACE) 100 MG capsule Take 1 capsule by mouth 2 times daily 60 capsule 1 05/16/19 Active Additional Information Patient not taking.Reported on 05/25/2019 ibuprofen (MOTRIN) 600 MG tablet Take 1 tablet by mouth every 6 hours as needed for Pain 40 tablet 1 05/16/19 Active Additional Information Patient not taking.Reported on 05/25/2019 Active Problems Patient Care Coordination No te Formatting of this note migh t be different from the original. [id number] Problem Noted Date Diagnosed Date Non-reactive NST (non-stress test) 05/12/2019 Decreased movements in third trimester Dizziness 03/10/2019 Overview (03/14/2019): Complaints of persistent dizziness, EKG completed 03/11, QTc: 436, showing possible left atrial enlargement, borderline EKG. Cardiology consult ordered. Nausea and vomiting during 03/10/2019 Anemia affecting in third trimester Overview (05/05/2019): H/H/P: 12/22.5/285; supplementation sent in 03/10 H/H/P: 9.2/29.2/339; not [...] GCT: 104 TPA: NR HIV NR H/H/P: 1030.5/285 Tdap: GBS: neg Methadone maintenance treatm ent [...] 05/30/04: neg 2000: CRISTIAN 3 s/p LEEP [place] Evaluate anatomy not seen on prior sonogram [...] , del ivered, current hospitalization 11/11/2018 Immunizations Immunization Administration Dates Next Due HEP A VACCINE, [...] drink = 0.6 oz pur e alcohol) Comments No Sex and Gender Information Value Date Recorded Sex Assigned at Not on file Legal Sex Female 7:09 AM ORACLE DATABASE ADMINISTRATOR Gender Identity Not on file Sexual Orientation [...] - 19+ 3-dose series) 06/10/2019 01/27/2019, 12/09/2018 COVID-19 VACCINE ( - 2023- season) 2023 INFLUENZA VACCINE (Season Ended) 2024 12/09/2018, 04/05/2014, 02/22/2013 DTAP/TDAP/TD VACCINES (7 - Td [...] P24 AG PANEL Routine 03/10/2019 1:24 PM ORACLE DATABASE ADMINISTRATOR Supervision of high risk in second trimester HEPATITIS C ANTIBODY Routine 11/11/2018 12:07 PM CDT Supervision of high risk , antepartum from Last 3 Months or Most Recently Relevant to Health Maintenance Results * HIV-1 HIV-2 ANTIBODY + HIV P24 AG PANEL (03/10/2019 1:24 PM ORACLE DATABASE ADMINISTRATOR) Pathologist [facility] HIV1/2 Ab + P24 Ag Non Reactive Non Reactive 03/10/2019 2:57 PM ORACLE DATABASE ADMINISTRATOR [facility] Blood BLOOD SPECIMEN / Unknown Venipuncture / Unknown 03/10/2019 1:24 PM ORACLE DATABASE ADMINISTRATOR 03/10/2019 1:49 PM ORACLE DATABASE ADMINISTRATOR Narrative [facility] - 03/10/2019 2:57 PM ORACLE DATABASE ADMINISTRATOR No Laboratory evidence of HIV infection. us Ivana Thomas PSYCHOMETRIC EXAMINER-WATCH ASSEMBLY INSPECTOR LAB - CHEMISTRY ORDERAB LES Final Result [facility] [address] [place] [address] * HEPATITIS C ANTIBODY (11/11/2018 12:07 PM CDT) HCV Antibody Screen Non Reactive Non Reactive 11/11/2018 1:55 PM CDT [facility] HCV S/C Ratio 0.19 0.00 - 0.79 11/11/2018 1:55 PM CDT [facility] Comment: Xzeflm-mv-flxjsc ratio (S/CO) <0.80: Non Reactive Blood BLOOD SPECIMEN / Unknown Venipuncture / Unknown 11/11/2018 12:07 PM CDT 11/11/2018 12:56 PM CDT Narrative [facility] - 11/11/2018 1:55 PM CDT Non Reactive - Antibodies to Hepatitis C virus (HCV) were not detected, result does not exclude early acute HCV infection. Helen Zurita PSYCHOMETRIC EXAMINER-WATCH ASSEMBLY INSPECTOR LAB - CHEMISTRY ORDERA BLES Final Result Performing Organization Address City/State/[place] Co de Phone Number [facility] [address] [place] [address] from Last 3 Months or Most Recently Relevant to Health Maintenance Insurance [facility] Advance Directives * Full Code (Latest Code [...] 11:00 AM 03/17/2019 7:31 PM Care Teams Collating Machine Operator Relationship Specialty Start Date End Date Mario Logan MD [address] [place] [address] PCP - General 05/24/19
--- OUTSIDE RECORDS SUMMARY | 2024-06-06 18:37 | XMS_ITS | Referral Summary ---
Author Organization [facility] Address [address] [place] [address] Care Team Providers Care Disability Manager Name Role Phone Christofer Stewart MD Primary [...] 1.7 cm about 1.5 years ago in [facility] - obtain US of thyroid, [...] on file Legal Sex Female 11:53 AM TRAIN DISPATCHER Gender Identity Not on file Sexual Orientation [...] Plan of Treatment Not on file Insurance [facility] Advance Directives For more information, please contact: [phone] * Full Code (Latest Code Status on File) Date Activated Date Inactivated Comments 10/20/2023 12:17 PM 10/20/2023 8:58 PM Care Teams Disability Manager Relationship Specialty Start Date End Date Christofer Stewart MD [address] [facility] [address] [place] A [address] [address] PCP - General Family Medicine 06/23/23
--- OUTSIDE RECORDS SUMMARY | 2024-06-06 18:37 | XMS_ITS | Encounter Summary ---
Author Organization [facility] Address [address] [place] [address] Care Team Providers Care Pineapple Plantation Manager Name Role Phone Francisco Javier Ivan MD Primary Care Provider [phone] Encounter Details Date Type Department Care Team (Latest Contact Info) Description 06/05/2024 Travel Social History Tobacco Use Types Packs/Day Years Used Date Smoking Tobacco: Every Day Cigarettes Smokeless Tobacco: Never Alcohol Use Standard Drinks/Week Comments Never 0 (1 standard drink = 0.6 oz pur e alcohol) [facility] Utilities Answer Date Recorded In the past 12 months has [employer], gas, oil, or water [employer] threatened to shut off services in your [...] in the past 12 m [facility], were you homeless or living in a residential (including now)? Yes 10/13/2023 Comments No Sex and Gender Information Value Date Recorded Sex Assigned at Not on file Legal Sex Female 11:36 PM CDT Gender Identity Not on file Sexual Orientation Not on file documented as of this encounter Functional Status * Are you deaf or do you have serious difficulty hearing Answer Date of Assessment Author Status No 10/13/2023 6:54 AM Lina Lyman RN Active * Are you blind or do you have serious difficulty seeing, even when wearing glasses? Answer Date of Assessment Author Status No 10/13/2023 6:54 AM Lina Lyman RN Active * Do you have serious difficulty walking or climbing stairs? Answer Date of Assessment Author Status Yes 10/13/2023 6:54 AM Lina Lyman RN Active * Do you have difficulty dressing or bathing? Answer Date of Assessment Author Status No 10/13/2023 6:54 AM Lina Lyman RN Active * Because of a physical, mental, or emotional condition, do you have difficulty doing errands alone such as visiting a doctor's office or shopping? Answer Date of Assessment Author Status Yes 10/13/2023 6:54 AM Lina Lyman RN Active * Calculated C-SSRS Risk Score (Lifetime/Recent) Answer Date of Assessment Author Status No Risk Indicated 06/05/2024 1:08 PM Sherley Phan RN Active * [place] Suicide Severity Rating Scale (Screener/Recent Self-Report) Question Answer Date of Assessment Author Status 1. Wish to be (Past 1 Month) No 06/05/2024 1:08 PM Sherley Phan RN Active 2. Non-Specific Active Suicidal Thoughts (Past 1 Month) No 06/05/2024 1:08 PM Sherley Phan RN Active 6. Suicidal Behavior (Lifetime) No 06/05/2024 1:08 PM Sherley Phan RN Active documented as of this encounter Mental Status * Because of a physical, mental, or emotional condition, do you have serious difficulty concentrating, remembering, or making decisions? Answer Entry Date Author Status No 10/13/2023 6:54 AM Lina Lyman RN Active documented in this encounter Plan of Treatment Not on file documented as of this encounter Visit Diagnoses Not on filedocumented in this encounter Care Teams Pineapple Plantation Manager Relationship Specialty Start Date End Date Francisco Javier Ivan MD [address] [place] [id number] PCP - General FAMILY PRACTICE 06/05/24 documented as of this encounter
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
--- OUTSIDE RECORDS SUMMARY | 2024-06-06 18:37 | XMS_ITS | Clinical Summary ---
Author Organization [facility] Address [address] [place] [address] Care Team Providers Care Gore Stitcher Name Role Phone Christofer Stewart MD Primary [...] 1.7 cm about 1.[address] [place] [facility] - obtain US of thyroid, labs [...] on file Legal Sex Female 11:53 AM DIRECTOR SPEECH AND HEARING Gender Identity Not on file Sexual Orientation [...] patient's age to complete this topic Insurance [facility] Advance Directives For more information, please contact: [phone] * Full Code (Latest Code Status on File) Date Activated Date Inactivated Comments 10/20/2023 12:17 PM 10/20/2023 8:58 PM Care Teams Gore Stitcher Relationship Specialty Start Date End Date Christofer Stewart MD [address] [facility] [address] SAMEER Ruvalcaba [address] [address] PCP - General Family Medicine 06/23/23
--- OUTSIDE RECORDS SUMMARY | 2024-06-06 18:37 | XMS_ITS | Encounter Summary ---
Author Organization [facility] Address [address] [place] [address] Care Team Providers Care University Librarian Name Role Phone None, Provider Primary Care Provider Francisco Javier Santana MD Primary Care Provider [phone] Encounter Details Date Type Department Care Team (Late st Contact Info) Description 07/31/2018 Abstract [facility] CONVERSION [address] [place] [address] , Generic Conversion, Social History Tobacco Use [...] on filedocumented in this encounter Care Teams University Librarian Relationship Specialty Start Date End Date None, Provider, PCP - General UNKNOWN PHYSICIAN SPECIALTY 07/13/23 06/04/24 Francisco Javier Ivan MD [address] [place] [id number] PCP - General FAMILY PRACTICE 06/05/24 documented as of this encounter
--- OUTSIDE RECORDS SUMMARY | 2024-06-06 18:37 | XMS_ITS | Encounter Summary ---
Author Organization [facility] Address [address] [place] [address] Care Team Providers Care Waste Removalist Name Role Phone Francisco Javier Ivan MD Primary Care Provider [phone] Encounter Details Date Type Department Care Team (Late st Contact Info) Description 06/05/2024 Results Follow-Up [facility] Emergency [address] [place] [address] Evon Serrano, PharmD VAGINITIS SCREEN (VDS) Social History Tobacco Use Types Packs/Day Years Used Date Smoking Tobacco: Every Day Cigarettes Smokeless Tobacco: Never Alcohol Use Standard Drinks/Week Comments Never 0 (1 standard drink = 0.6 oz pur e alcohol) [facility] Utilities Answer Date Recorded In the past 12 months has e [employer], gas, oil, or water [employer] threatened to shut off services in your [...] any time in the past 12 m [facility], were you homeless or living in a custodial (including now)? Yes 10/13/2023 Comments No Sex [...] 1:08 PM Sherley Phan RN Active * [place] Suicide Severity Rating Scale (Screener/Recent Self-Report) Question [...] on filedocumented in this encounter Care Teams Waste Removalist Relationship Specialty Start Date End Date Francisco Javier Ivan MD [address] [place] [address] PCP - General FAMILY PRACTICE 06/05/24 documented as of this encounter
--- OUTSIDE RECORDS SUMMARY | 2024-06-06 18:38 | XMS_ITS | Clinical Summary ---
Author Organization [facility] Address [address] [place] [address] Care Team Providers Care Welcome Center Attendant Name Role Phone Francisco Javier Ivan MD Primary Care Provider [phone] Allergies Active Allergy Reactions Criticality Noted Date Comments Codeine Anaphylaxis,Shortnes s of Breath High 07/13/2015 Ketorolac Other (see comment) 07/13/2015 Rapid Heart Rate Naproxen GI Upset 07/13/2015 No problems with Ibuprofen Penicillins Unknown 07/13/2023 Medications doxycycline hyclate (VIBRAMYCIN) 100 MG capsule Take 1 capsule (100 mg total) by mouth 2 (two) times daily for 10 days. 20 capsule 06/05/2024 5 Active metroNIDAZOLE (FLAGYL) 500 MG tablet Take 1 tablet (500 mg total) by mouth 3 (three) times daily for 10 days. 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 Encounters Date Type Department Care Team Description 06/05/2024 1:12 PM CDT - 06/05/2024 2:05 PM CDT Emergency [facility] Emergency [address] [place] [address] Anastasia Lebron FNP Urinary Symptoms; STD Screening Discharge Disposition: Home or Self Care (Routine Discharge) 06/05/2024 Results Follow-Up [facility] Emergency [address] [place] [address] Evon Serrano, PharmD VAGINITIS SCREEN (VDS) 06/05/2024 Travel from Last 3 Months Social History Tobacco Use Types Packs/Day Years Used Date Smoking Tobacco: Every Day Cigarettes Smokeless Tobacco: Never Tobacco Cessation:Ready to Q uit: Not Asked; Counseling Given: Not Answered Alcohol Use Standard Drinks/Week Comments Never 0 (1 standard drink = 0.6 oz pur e alcohol) [facility] Utilities Answer Date Recorded In the past 12 months has e [employer], gas, oil, or water [employer] threatened to shut off services in your [...] any time in the past 12 m [facility], were you homeless or living in [...] Mass Index 23.49 06/05/2024 1:08 PM CDT Plan of Treatment Health Maintenance Due Date Last Done Comments Annual Physical 1985 Pneumococcal Vaccine: Pediatrics (0 to 5 Years) and At-Risk Patients (6 to 49 Years) (1 of 2 - PCV) 2001 02/24/2016 Hepatitis B Vaccines (3 of 3 [...] Nurse Collected Priority 06/05/2024 1:19 PM CDT HEPATITIS PANEL,ACUTE Routine 10/13/2023 3:24 AM CDT from Last 3 Months or Most Recently Relevant to Health Maintenance Results * SYPHILIS IGG/IGM AB (06/05/2024 1:40 PM CDT) SYPHILIS IGG IGM AB NON-REACTI VE NON-REACTI VE 06/05/2024 5:49 PM CDT [facility] Comment: No serologic evidence of syphilis. No follow-up necessary unless clinically indicated. 06/05/2024 1:40 PM CDT us Anastasia [facility]WANTP LABORATORY Final Resul t Performing Organization Address [facility] Co de Phone Number [facility] [address] [place] [address], [place] [phone] * HIV 1 ANTIGEN(S), WITH HIV-1 AND HIV-2 ANTIBODIES (06/05/2024 1:40 PM CDT) HIV 1/2 AB+ HIV1 P24 AG NON-REACTI VE NON-REACTI VE 06/05/2024 5:49 PM CDT [facility] Comment:HIV 1 p24 Ag and HIV 1/ HIV 2 Ab not detected. 06/05/2024 1:40 PM CDT us Anastasia [facility]WANTP LABORAT[facility] Final Resul t Performing Organization Address [facility] de Phone Number [facility] [address] [place] [address], [place] [phone] * (ABNORMAL) VAGINITIS SCREEN (VDS) (06/05/2024 1:35 PM CDT) Pathologist [facility] SPECIMEN SOURCE VAGINAL SPECIMEN 06/05/2024 1:36 PM CDT [facility] TRICHOMONAS NEGATIVE NEGATIVE 06/05/2024 2:56 PM CDT [facility] Comment:NOT DETECTED BY DNA PROBE GARDNERELLA VAGINALIS POSITIVE(A) NEGATIVE 06/05/2024 2:56 PM CDT [facility] Comment:DETECTED BY DNA PROB E SARAH SPECIES NEGATIVE NEGATIVE 2:56 PM CDT [facility] Comment:NOT DETECTED BY DNA PROBE VAGINAL STRUCTURE / Unknown 06/05/2024 1:35 PM CDT us Anastasia SAWANTP MICROBIOLOGY - GENERAL ORDE RABLES Final Result Performing Organization Address City/[facility]/ZIP Co de Phone Number [facility] [address] [place] [address], [phone] * CHLAMYDIA GC RNA (06/05/2024 1:22 PM CDT) SPECIMEN VAGINAL SPECIMEN 06/05/2024 1:36 PM CDT [facility] CHLAMYDIA RNA TMA NEGATIVE NEGATIVE 025 1:44 PM CDT [facility] Comment:PERFORMED BY NUCLEIC ACID AMPLIFICATION N.GONORRHOEAE RNA TMA NEGATIVE NEGATIVE 06/06/2024 1:44 PM CDT [facility] Comment:PERFORMED BY NUCLEIC ACID AMPLIFICATION VAGINAL STRUCTURE / Unknown 06/05/2024 1:22 PM CDT Anastasia Lebron [facility] MICROBIOLOGY - GENERAL ORDCaleb MOSS Final Result Performing Organization Address City/State/[facility] Co de Phone Number [facility] [address] [place] [address], [place] [phone] [facility] [address] [place] [address], [phone] * (ABNORMAL) URINALYSIS (06/05/2024 1:22 PM CDT) COLOR (U) LIGHT YELLOW 06/05/2024 1:45 PM CDT [facility] TRANSPARENCY CLOUDY 06/05/2024 1:45 PM CDT [facility] SPECIFIC GRAVITY (U) 1.017 1.002 - 1.035 06/05/2024 1:45 PM CDT [facility] U PH 7.5 5 - 8 06/05/2024 1:45 PM CDT [facility] PROTEIN RANDOM (U) NEGATIVE NEGATIVE 06/05/2024 1:45 PM CDT [facility] GLUCOSE (U) NEGATIVE NEGATIVE MG/DL 06/05/2024 1:45 PM CDT [facility] KETONES MG/DL (U) NEGATIVE NEGATIVE 06/05/2024 1:45 PM CDT [facility] BILIRUBIN (U) NEGATIVE NEGATIVE 06/05/2024 1:45 PM CDT [facility] BLOOD (U) 2+(A) NEGATIVE 06/05/2024 1:45 PM CDT [facility] NITRITES NEGATIVE NEGATIVE 06/05/2024 1:45 PM CDT [facility] UROBILINOGEN NORMAL 0 - 1 EU/DL 06/05/2024 1:45 PM CDT [facility] LEUKOCYTES (U) TRACE(A) NEGATIVE 06/05/2024 1:45 PM CDT [facility] RBC/HPF 65(H) 0 - 3 /HPF 06/05/2024 1:45 PM CDT [facility] WBC/HPF 20(H) 0 - 6 /HPF 06/05/2024 1:45 PM CDT [facility] BACTERIA (U) PRESENT /HPF 06/05/2024 1:45 PM CDT [facility] SQUAMOUS EPITHELIALS 2 06/05/2024 1:45 PM CDT [facility] AMORPHOUS SEDIMENT PRESENT 06/05/2024 1:45 PM CDT [facility] URINE SPECIMEN OBTAINED BY CLEAN CATCH PROCEDURE / Unknown 06/05/2024 1:22 PM CDT us Anastasia Lebron COURT DEPUTY URINE ORDERABLES Final Resu lt [facility] [address] [place] [id number], [phone] * TEST URINE (06/05/2024 1:22 PM CDT) URINE HCG TEST NEGATIVE 06/05/2024 1:38 PM CDT [facility] URINE SPECIMEN FROM URETHRA / Unknown 06/05/2024 1:[address] DEPUTY URINE ORDERABLES Final Resu lt Performing Organization Address [facility] Co de Phone Number [facility] [address] [place] [address], [place] [phone] * HEPATITIS PANEL,ACUTE (10/13/2023 3:24 AM CDT) HEPATITIS B SURFACE AG NON-REACT VARGHESE NON-REACT VARGHESE 10/13/2023 1:41 PM CDT [facility] Comment:HBsAg NOT DETECTED. HEP B CORE IGM NON-REACT VARGHESE NON-REACT VARGHESE 10/13/2023 1:41 PM CDT [facility] Comment: IgM ANTI HBc NOT DETECTED. DOES NOT EXCLUDE THE POSSIBILITY OF EXPOSURE TO OR INFECTION WITH HBV. NO RETEST REQUIRED. HIGH DOSES OF BIOTIN MAY INTERFERE WITH THIS TEST RESULT. CORRELATION TO CLINICAL HISTORY AND PRESENTATION RECOMMENDED. HAV IGM NON-REACT VARGHESE NON-REACT VARGHESE 10/13/2023 1:41 PM CDT [facility] Comment: IgM ANTI HAV NOT DETECTED. DOES NOT EXCLUDE THE POSSIBILITY OF EXPOSURE TO OR INFECTION WITH HAV. LEVELS OF IgM ANTI HAV MAY BE BELOW THE CUTOFF IN EARLY INFECTION. HEPATITIS C AB NON-REACT VARGHESE NON-REACT VARGHESE 10/13/2023 1:42 PM CDT [facility] Comment: ANTIBODIES TO HCV NOT DETECTED. DOES NOT EXCLUDE THE POSSIBILITY OF EXPOSURE TO HCV. 10/13/2023 3:24 AM CDT us Tenisha Cheema MD LABORATORY Final Result Performing Organization Address [facility]/ZIP Co de Phone Number [facility] [address] [place] [address], [place] [phone] from Last 3 Months or Most Recently Relevant to Health Maintenance Insurance [employer] Advance Directives Documents on File Type Date Recorded Patient Clinical Nursing Coordinator Expl anation Advance Directives and Living Will 05/10/2015 12:00 AM [employer]ED [employer]IVES Advance Directives and Living Will 08/06/2013 12:00 AM ADVANCED DIRECTIVES Advance Directives and Living Will 12/28/2012 12:00 AM ADVANCED DIRECTIVES * Full Code (Latest Code Status on File) Date Activated Date Inactivated Comments 10/13/2023 5:53 AM 10/14/2023 10:50 AM Care Teams Welcome Center Attendant Relationship Specialty Start Date End Date Francisco Javier Ivan MD [address] [address] PCP - General FAMILY PRACTICE 06/05/24
[2024-06-06 18:47] VITALS: BP 123/80; PULSE 100; RESP 18; TEMP 37.2; O2SAT 98
[2024-06-06 18:53] LABS: Basophils Absolute Auto 0.04 K/mm3 (0.00-0.10); Basophils Percent Auto 0.2 % (0.0-1.0); Eosinophils Absolute Auto 0.02 K/mm3 (0.02-0.50); Eosinophils Percent Auto 0.1 % (1.0-6.0); Hematocrit 38.8 % (35.0-49.0); Hemoglobin 12.5 g/dL (12.0-15.0); Immature Granulocyte Absolute 0.07 K/mm3 (0.00-0.00); Immature Granulocyte Percent A 0.4 % (0.0-0.0); Lymphocytes Absolute Auto 0.49 K/mm3 (1.10-4.50); Mean Corpuscular HGB Conc 32.2 g/dL (32-36); Mean Corpuscular Hemoglobin 30.7 pg (27.0-31.0); Mean Corpuscular Volume 95.3 fL (78.0-102.0); Mean Platelet Volume 8.7 fl (9.2-11.8); Monocytes Absolute Auto 0.79 K/mm3 (0.10-0.90); Monocytes Percent Auto 4.8 % (2.0-11.0); Neutrophils Absolute Auto 14.91 K/mm3 (1.70-7.20); Neutrophils Percent Auto 91.5 % (50.0-70.0); Platelet Count Result 378 K/mm3 (150-420); Red Blood Count 4.07 M/mm3 (4.20-5.40); Red Cell Distribution Width 12.8 % (11.6-14.4); White Blood Count 16.3 K/mm3 (4.8-10.8)
--- NOTE | 2024-06-06 19:05 | PC.NURSE ---
Pt refused to put a gown on and refused to leave monitors on.
[2024-06-06 19:08] LABS: INR 0.9; Partial Thromboplastin Time 21.9 Sec (23.9-30.70); Prothrombin Time 9.9 Seconds (9.50-12.1)
[2024-06-06 19:10] LABS: Alanine Aminotransferase 87 U/L (14-59); Albumin Level 3.3 g/dL (3.4-5.0); Alkaline Phosphatase 102 U/L (46-116); Anion Gap 8 mmol/L (4-12); Aspartate Amino Transferase 64 U/L (15-37); Bilirubin,Total 0.3 mg/dL (0.00-1.00); Blood Urea Nitrogen 20 mg/dL (7-18); Calcium 8.6 mg/dL (8.5-10.1); Carbon Dioxide 31 mmol/L (21-32); Chloride 104 mmol/L (98-108); Estimated CRCL calculation 52 ml/min; Estimated Glomerular Filt Rate > 60; Glucose 97 mg/dL (70-99); Osmolality Calculated 298 mOsm/kg (285-295); Potassium 4.3 mmol/L (3.5-5.1); Sodium 143 mmol/L (136-145)
[2024-06-06 19:21] LABS: Serum Qual hCG Negative
[2024-06-06 19:22] LABS: SPREG INTERNAL CONTROL Positive
--- NOTE | 2024-06-06 19:34 | ED_ITS ---
HPI - Syncope General Chief Complaint: Syncope Stated Complaint: passing out Time Seen by Provider: 06/06/24 18:36 History of Present Illness HPI narrative: Pt was having episode of vomiting and had syncopal episode and fell. Pt was found by family on ground with head against toilet. Pt says she has a mild ZAMUDIO but has had it for days. Pt denies abdominal pain. Pt was just diagnosed with uti in [place] and is on antibiotic. Pt denies CP or SOB. Related Data Home Medications ?Medication ?Instructions ?Recorded ?Confirmed ?Last Taken ?Type aripiprazole 5 mg tablet (Abilify) 5 mg PO DAILY 05/17/24 05/17/24 Unknown History lorazepam 0.5 mg tablet (Ativan) 0.5 mg PO Q6H PRN anxiety 05/17/24 05/17/24 Unknown History trazodone 50 mg tablet mg 05/17/24 Unknown History Allergies Allergy/AdvReac Type Severity Reaction Status Date / Time Penicillins Allergy Severe Difficulty Verified 06/06/24 19:14 Swallowing codeine AdvReac Swelling Verified 06/06/24 19:14 Review of Systems 2 Review of Systems: All systems reviewed & are unremarkable except as noted in HPI and below PMFSH Past Medical History Medical History Drug abuse Tooth decay Surgical History Surgical History History of x3 Family History Family History Father No problems noted. Father Lung cancer Mother Heart disease Social History Social History Years smoked: 20 Smoking status: Current every day smoker Tobacco type: cigarettes Second hand tobacco smoke exposure: Yes Alcohol intake: former Substance use: former Substance use type: does not use Gender identity (if verbalized by the patient): Female Spiritual care concerns: No Exam 2 Const: General: healthy appearing and no acute distress Nutritional Appearance: well nourished Orientation/consciousness: patient oriented x3 Limitations: no limitations Chest: Chest palpation & inspection: normal inspection of the chest Resp: Effort & Inspection: normal respiratory effort Auscultation: clear to auscultation bilaterally Cardio: Rate: regular rate Rhythm: regular rhythm GI: GI Palp: Yes Soft to palpation Auscultation: normal bowel sounds Skin: General skin exam: normal color Rashes: no rashes Wounds: no wounds Neuro: General: patient oriented x3, moves all extremities, no meningeal signs and no focal motor deficits Cranial nerves: Yes Nystagmus not present S peech: normal speech Extrem: General: normal to inspection and no clubbing, cyanosis or edema Psych: Mental Status: mental status grossly normal Affect: normal affect Attitude: cooperative Course Vital Signs Vital signs: Vital Signs Temperature 99.0 F 06/06/24 18:47 Pulse Rate 100 06/06/24 18:47 Respiratory Rate 18 06/06/24 18:47 Blood Pressure 123/80 06/06/24 18:47 Pulse Oximetry 98 06/06/24 18:47 Oxygen Delivery Room Air 06/06/24 18:47 Temperature 99.0 F 06/06/24 18:47 Pulse Rate 100 06/06/24 18:47 Respiratory Rate 18 06/06/24 18:47 Blood Pressure 123/80 06/06/24 18:47 Pulse Oximetry 98 06/06/24 18:47 Oxygen Delivery Room Air 06/06/24 18:47 MDM - Syncope MDM Narrative Medical decision making narrative: Pt presents after having syncopal episode after vomiting. Pt found on ground and might have struck head so will get CT head to rule out injury and labs to check electrolytes and renal function ekg unremarkable. LFT's slightly elevated. Pt will get these rechecked in a couple of days by her PCP. tolerating ice chips home on zofran Lab Data 06/06/24 18:50 06/06/24 18:50 Labs: Lab Results 06/06/24 06/06/24 Range/Units 18:50 19:14 WBC 16.3 H (4.8-10.8) K/mm3 RBC 4.07 L (4.20-5.40) M/mm3 Hgb 12.5 (12.0-15.0) g/dL Hct 38.8 (35.0-49.0) % MCV 95.3 (78.0-102.0) fL MCH 30.7 (27.0-31.0) pg MCHC 32.2 (32-36) g/dL RDW 12.8 (11.6-14.4) % Plt Count 378 (150-420) K/mm3 MPV 8.7 L (9.2-11.8) fl Immature Gran % (Auto) 0.4 H (0.0-0.0) % Neut % (Auto) 91.5 H (50.0-70.0) % Lymph % (Auto) 3.0 L (18.0-42.0) % [place] % (Auto) 4.8 (2.0-11.0) % Eos % (Auto) 0.1 L (1.0-6.0) % Baso % (Auto) 0.2 (0.0-1.0) % Lymph # (Auto) 0.49 L (1.10-4.50) K/mm3 [place]born # (Auto) 0.79 (0.10-0.90) K/mm3 Eos # (Auto) 0.02 (0.02-0.50) K/mm3 Baso # (Auto) 0.04 (0.00-0.10) K/mm3 Abs Immat Gran (auto) 0.07 H (0.00-0.00) K/mm3 Absolute Neuts (auto) 14.91 H (1.70-7.20) K/mm3 Absolute Nucleated RBC 0.00 (0.00-0.00) K/mm3 Nucleated RBC % 0.0 (0-0.0) % PT 9.9 (9.50-12.1) Seconds INR 0.9 APTT 21.9 L (23.9-30.70) Sec Sodium 143 (136-145) mmol/L Potassium 4.3 (3.5-5.1) mmol/L Chloride 104 (98-108) mmol/L Carbon Dioxide 31 (21-32) mmol/L Anion Gap 8 (4-12) mmol/L BUN 20 H (7-18) mg/dL Creatinine 0.94 (0.55-1.02) mg/dL Estim Creat Clear Calc 52 ml/min Estimated GFR > 60 (59 - ) Glucose 97 (70-99) mg/dL Calculated Osmolality 298 H (285-295) mOsm/kg Calcium 8.6 (8.5-10.1) mg/dL Total Bilirubin 0.3 (0.00-1.00) mg/dL AST 64 H (15-37) U/L ALT 87 H (14-59) U/L Alkaline Phosphatase 102 (46-116) U/L Total Protein 7.0 (6.4-8.2) g/dL Albumin 3.3 L (3.4-5.0) g/dL Serum HCG, Qual Negative ECG Data EKG #1: Interpretation: nsr with short pr lae no st or t wave changes Discharge Plan Discharge Clinical Impression: Vasovagal syncope, Gastroenteritis Patient Disposition: Home Condition: Improved Instructions: Antibiotic Form, Syncope (ED), Gastroenteritis (DC) Patient Language: Telugu Prescriptions: New ondansetron 4 mg tablet,disintegrating 4 mg PO Q8H PRN (Reason: nausea and vomiting) Qty: 14 0RF No Action trazodone 50 mg tablet aripiprazole [Abilify] 5 mg tablet 5 mg PO DAILY lorazepam [Ativan] 0.5 mg tablet 0.5 mg PO Q6H PRN (Reason: anxiety) azithromycin 500 mg tablet See Rx Instructions .ROUTE .COMPLEX Qty: 3 0RF Rx Instructions: For 500 mg dose pack: take 500 mg once daily for 3 days prednisone 20 mg tablet 20 mg PO DAILY 3 Days Qty: 3 0RF Follow-up/Referrals: Elfego Ivan, RT(R) [Primary Care Provider] -
--- NOTE | 2024-06-06 19:50 | PC.NURSE ---
Pt's mother called for an update on pt condition. Pt gives permission for this RN to give update. Mother, Helena, to be called when pt is ready for discharge.
[2024-06-06] MEDS: ONDANSETRON INJ 4 MG/2 ML VIAL IV PUSH (20:31)
--- NOTE | 2024-06-06 20:39 | PC.NURSE ---
Gave pt ice chips
[2024-06-06 20:58] VITALS: BP 105/64; PULSE 98; RESP 18; TEMP 38.1; O2SAT 98
== END 2024-06-06 21:05 | disposition home or self-care (01) ==
PROVIDERS: Emergency Provider Emergency Medicine
DX: K52.9 Noninfective gastroenteritis and colitis, unspecified (principal); R55 Syncope and collapse; F17.210 Nicotine dependence, cigarettes, uncomplicated
CPT/HCPCS: 36415; 70450; 80053; 84703; 85025; 85610; 85730; 93005; 96374; 99284; J2405

== ENCOUNTER 2024-06-30 09:28 | Emergency (ER) | payer OTHER, SELFPAY ==
--- NOTE | ~2024-06-30 | CT_ITS ---
Non-contrast CT scan of the Abdomen and Pelvis Clinical indication: Bilateral flank pain Technique: 2.5 mm axial scans were obtained through the abdomen and pelvis without intravenous or or al contrast. Dose reduction technique was used on this scan by utilizing automated exposure control a nd iterative reconstruction technique. The dose-length product (DLP) was 200.11 mGy-cm. COMPARISON: 03/29/2024 Findings: Images through the lung bases reveal no abnormalities. There is no evidence of renal or ureteral calculi. The kidneys and the ureters are nondilated. The liver, spleen, pancreas, and adrenals appear normal. Cholecystectomy clips are present. There is no aortic aneurysm. There is no evidence of bowel obstruction. Images through the pelvis were performed. There is no evidence of ascites or lymphadenopathy. Urinary bladder unremarkable. No pelvic mass evident. There is apparent gas or partially stool in the upper vagina. Impression: Suspected gas and/or stool in the upper vagina. Correlate for colovaginal fistula. It is possible thi s is artifactual or stool within an adjacent bowel loop. Evaluation somewhat suboptimal due to paucit y of fat in the pelvis and lack of contrast material. Consider contrast enhanced exam for further brody luation as indicated, including possibly rectal contrast if there is concern for colovaginal fistula. Reviewed, dictated and finalized at location . Impression: Suspected gas and/or stool in the upper vagina. Correlate for colovaginal fistu la. It is possible this is artifactual or stool within an adjacent bowel loop. Evaluation somewhat suboptimal due to paucity of fat in the pelvis and lack of contrast material. Consider contrast enhanced exam for further evaluation as in dicated, including possibly rectal contrast if there is concern for colovaginal fistula.
--- NOTE | ~2024-06-30 | CT_ITS ---
EXAMINATION: CT abdomen pelvis w con DATE: 06/30/2024 11:31 INDICATION: Possible colovaginal fistula with brown vaginal discharge TECHNIQUE: Computed tomography (CT) of the abdomen and pelvis was performed with 100 mL Omnipaque-350 intravenous contrast. Automated exposure control and iterative reconstruction technique were employe d. The dose-length product was 213.67 mGy-cm. COMPARISON: None FINDINGS: Lung bases are clear. Heart size is normal. No pericardial or pleural effusion. Cholecystectomy clips at the gallbladder fossa. Mild focal hepatic steatosis at the ligamentum teres. Spleen, pancreas, bi lateral adrenal glands and kidneys are normal. Bowels are unremarkable with no wall thickening or obs truction. The appendix is not visualized. No pericecal inflammatory change to suggest acute appendici tis. Bladder and anteverted uterus are unremarkable. Material mixed with gas within the vaginal vault . No enhancing or gas-filled tract extending between the bowels and vagina to suggest a colovaginal f istula. Trace amount of likely physiologic free fluid in the cul-de-sac. No abscess or free intraperi toneal gas. There is increased prominence of the left parametrial vessels and gonadal vein which can be seen with pelvic vascular congestion syndrome. No pathologically enlarged abdominal or pelvic lymp hadenopathy. Bones are unremarkable. IMPRESSION: 1. Material interspersed gas within the vaginal vault but no definitive colovaginal fistula identifie d. Reviewed, dictated and finalized at location A. IMPRESSION: 1. Material interspersed gas within the vaginal vault but no definitive colovag inal fistula identified.
[2024-06-30 09:28] VITALS: BP 122/81; PULSE 79; RESP 18; TEMP 36.4; O2SAT 98
--- OUTSIDE RECORDS SUMMARY | 2024-06-30 09:50 | XMS_ITS | Referral Summary ---
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
--- OUTSIDE RECORDS SUMMARY | 2024-06-30 09:50 | XMS_ITS | Clinical Summary ---
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 Gender Identity Not on file Sexual Orientation [...] (1 of 2 - PCV) 2001 02/24/2016 Depression Screening 06/22/2024 06/23/2023 Regular Well Visit/Exam 18-64 06/22/2024 06/23/2023 Influenza Vaccine (Season Ended) 2024 12/09/2018, 04/05/2014, 02/22/2013 DTaP/Tdap/Td Vaccine (6 - Td or Tdap) 04/21/2029 04/21/2019, 12/07/2016, 02/24/2016, Additional history exists Hepatitis B Screening Completed 01/27/2019, 019 HPV Vaccines Aged Out No longer eligi ble based on patient's age to complete this topic Insurance [facility] Advance Directives For more information, please contact: [phone] * Full Code (Latest Code Status on File) Date Activated Date Inactivated Comments 10/20/2023 12:17 PM 10/20/2023 8:58 PM Care Teams Biological Science Aide Relationship Specialty Start Date End Date Christofer Stewart MD PCP - General Family Medicine 06/23/23
--- OUTSIDE RECORDS SUMMARY | 2024-06-30 09:50 | XMS_ITS | Clinical Summary ---
Author Organization [facility] Address [address] [facility] [address] [facility] [place] [address] Care Team Providers Care Pricing Lead Name Role Phone Mario Logan MD Primary Care Provider Source Comments [facility],non-owned Affiliates and Associated Physician Practices is amultiple site organization consisting of ambulatory clinics and hospital sitesin [place], [place], [place] and [place]. This disclosure is being madepursuant to the Care Everywhere program and may not contain all information available regarding this patient. Last updated 17.[facility] Allergies Active Allergy Reactions Criticality Noted Date [...] naloxone HCl (NARCAN) 4 MG/0.1ML nasal spray [place] 1 spray into the nose as needed [...] migh t be different from the original. [id number] Problem Noted Date Diagnosed Date Non-reactive NST [...] 02/28/2014 Overview (05/05/2019): Confirmed dose-270 mg from [facility]. Scanned Into media. 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 Gender Identity Not on file Sexual Orientation [...] P24 AG PANEL Routine 03/10/2019 1:24 PM DELIVERY ROOM CLERK Supervision of high risk in second trimester HEPATITIS C ANTIBODY Routine 11/11/2018 12:07 PM CDT Supervision of high risk , antepartum from Last 3 Months or Most Recently Relevant to Health Maintenance Results * HIV-1 HIV-2 ANTIBODY + HIV P24 AG PANEL (03/10/2019 1:24 PM DELIVERY ROOM CLERK) Pathologist [facility] HIV1/2 Ab + P24 Ag Non Reactive Non Reactive 03/10/2019 2:57 PM DELIVERY ROOM CLERK [facility] Blood BLOOD SPECIMEN / Unknown Venipuncture / Unknown 03/10/2019 1:24 PM DELIVERY ROOM CLERK 03/10/2019 1:49 PM DELIVERY ROOM CLERK Narrative [facility] - 03/10/2019 2:57 PM DELIVERY ROOM CLERK No Laboratory evidence of HIV infection. us Ivana Thomas GEOSPATIAL INFORMATION TECHNOLOGIST-TOOL AND DIE MAKER LEVEL FIVE LAB - CHEMISTRY ORDERAB LES Final Result [facility] [address] [place] [address] * HEPATITIS C ANTIBODY (11/11/2018 12:07 PM CDT) HCV Antibody Screen Non Reactive Non Reactive 11/11/2018 1:55 PM CDT [facility] HCV S/C Ratio 0.19 0.00 - 0.79 11/11/2018 1:55 PM CDT [facility] Comment: Hbnbux-eq-xelawh ratio (S/CO) <0.80: Non Reactive Blood BLOOD SPECIMEN / Unknown Venipuncture / Unknown 11/11/2018 12:07 PM CDT 11/11/2018 12:56 PM CDT Narrative [facility] - 11/11/2018 1:55 PM CDT Non Reactive - Antibodies to Hepatitis C virus (HCV) were not detected, result does not exclude early acute HCV infection. Helen Zurita GEOSPATIAL INFORMATION TECHNOLOGIST-TOOL AND DIE MAKER LEVEL FIVE LAB - CHEMISTRY ORDERA BLES Final Result Performing Organization Address City/State/[facility] Co de Phone Number [facility] [address] [place] [address] from Last 3 Months or Most Recently Relevant to Health Maintenance Insurance [facility] Advance Directives * Full Code (Latest Code [...] 11:00 AM 03/17/2019 7:31 PM Care Teams Pricing Lead Relationship Specialty Start Date End Date Mario Logan MD [address] [place] [address] PCP - General 05/24/19
--- OUTSIDE RECORDS SUMMARY | 2024-06-30 09:50 | XMS_ITS | Encounter Summary ---
Author Organization [facility] Address [address] [place] [address] Care Team Providers Care Pulling Unit Operator Name Role Phone Francisco Javier Ivan MD Primary Care Provider [phone] Encounter Details Date Type Department Care Team (Late st Contact Info) Description 06/05/2024 Results Follow-Up [facility] Emergency [address] [place] [address] Evon Serrano, PharmD VAGINITIS SCREEN (VDS) Social History Tobacco Use Types Packs/Day Years Used Date Smoking Tobacco: Every Day Cigarettes Smokeless Tobacco: Never Alcohol Use Standard Drinks/Week Comments Never 0 (1 standard drink = 0.6 oz pur e alcohol) [facility] Utilities Answer Date Recorded In the past 12 months has e [employer], gas, oil, or water [employer] threatened to shut off services in your [...] any time in the past 12 m [facility], were you homeless or living in a penitentiary (including now)? Yes 10/13/2023 Comments No Sex [...] 1:08 PM Sherley Phan RN Active * [place] Suicide Severity Rating Scale (Screener/Recent Self-Report) Question [...] on filedocumented in this encounter Care Teams Pulling Unit Operator Relationship Specialty Start Date End Date Francisco Javier Ivan MD [address] [place] [address] PCP - General FAMILY PRACTICE 06/05/24 documented as of this encounter
--- OUTSIDE RECORDS SUMMARY | 2024-06-30 09:50 | XMS_ITS | Encounter Summary ---
Author Organization [facility] Address [address] [place] [address] Care Team Providers Care Transportation Engineering Technician Name Role Phone None, Provider Primary Care Provider Francisco Javier Santana MD Primary Care Provider [phone] Encounter Details Date Type Department Care Team (Late st Contact Info) Description 07/31/2018 Abstract SFL CONVERSION [address] [place] [address] , Generic Conversion, Social History Tobacco Use [...] on filedocumented in this encounter Care Teams Transportation Engineering Technician Relationship Specialty Start Date End Date None, Provider, PCP - General UNKNOWN PHYSICIAN SPECIALTY 07/13/23 06/04/24 Francisco Javier Ivan MD [address] [place] [id number] PCP - General FAMILY PRACTICE 06/05/24 documented as of this encounter
--- OUTSIDE RECORDS SUMMARY | 2024-06-30 09:51 | XMS_ITS | Clinical Summary ---
Author Organization [facility] Address [address] [place] [address] Care Team Providers Care Stain Applicator Name Role Phone Francisco Javier Ivan MD Primary Care Provider [phone] Allergies Active Allergy Reactions Criticality Noted Date Comments Codeine Anaphylaxis,Shortnes s of Breath High 07/13/2015 Ketorolac Other (see comment) 07/13/2015 Rapid Heart Rate Naproxen GI Upset 07/13/2015 No problems with Ibuprofen Penicillins Unknown 07/13/2023 Medications doxycycline hyclate (VIBRAMYCIN) 100 MG capsule Take 1 capsule (100 mg total) by mouth 2 (two) times daily for 10 days. 20 capsule 06/05/2024 06/16/19 25 metroNIDAZOLE (FLAGYL) 500 MG tablet Take 1 tablet (500 mg total) by mouth 3 (three) times daily for 10 days. 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 Encounters Date Type Department Care Team Description 06/05/2024 1:12 PM CDT - 06/05/2024 2:05 PM CDT Emergency [facility] Emergency [address] [place] [address] Anastasia Lebron, ELECTRIC METER SETTER Urinary Symptoms; STD Screening Discharge Disposition: Home or Self Care (Routine Discharge) 06/05/2024 Results Follow-Up [facility] Emergency [address] [place] [address] Evon Serrano, PharmD VAGINITIS SCREEN (VDS) 06/05/2024 Travel from Last 3 Months Social History Tobacco Use Types Packs/Day Years Used Date Smoking Tobacco: Every Day Cigarettes Smokeless Tobacco: Never Tobacco Cessation:Ready to Q uit: Not Asked; Counseling Given: Not Answered Alcohol Use Standard Drinks/Week Comments Never 0 (1 standard drink = 0.6 oz pur e alcohol) [facility] Utilities Answer Date Recorded In the past 12 months has e [employer], gas, oil, or water [employer] threatened to shut off services in your [...] any time in the past [address] [facility], were you homeless or living in a [facility] (including now)? Yes 10/13/2023 Comments No Sex [...] VE NON-REACTI VE 06/05/2024 5:49 PM CDT [facility] Comment: No serologic evidence of syphilis. No follow-up necessary unless clinically indicated. 06/05/2024 1:40 PM CDT us Anastasia SAWANTP LABORATORY Final Resul t Performing Organization Address [facility] Co de Phone Number [facility] [address] [place] [address], [place] [phone] * HIV 1 ANTIGEN(S), WITH HIV-1 AND HIV-2 ANTIBODIES (06/05/2024 1:40 PM CDT) HIV 1/2 AB+ HIV1 P24 AG NON-REACTI VE NON-REACTI VE 06/05/2024 5:49 PM CDT [facility] Comment:HIV 1 p24 Ag and HIV 1/ HIV 2 Ab not detected. 06/05/2024 1:40 PM CDT us Anastasia SAWANTP LABORAT[facility] Final Resul t Performing Organization Address [facility] de Phone Number [facility] [address] [place] [address], [place] [phone] * (ABNORMAL) VAGINITIS SCREEN (VDS) (06/05/2024 1:35 PM CDT) Pathologist [facility] SPECIMEN SOURCE VAGINAL SPECIMEN 06/05/2024 1:36 PM CDT [facility] TRICHOMONAS NEGATIVE NEGATIVE 06/05/2024 2:56 PM CDT [facility] Comment:NOT DETECTED BY DNA PROBE GARDNERELLA VAGINALIS POSITIVE(A) NEGATIVE 06/05/2024 2:56 PM CDT [facility] Comment:DETECTED BY DNA PROB E SARAH SPECIES NEGATIVE NEGATIVE 2:56 PM CDT [facility] Comment:NOT DETECTED BY DNA PROBE VAGINAL STRUCTURE / Unknown 06/05/2024 1:35 PM CDT us Anastasia SAWANTP MICROBIOLOGY - GENERAL ORDE RABLES Final Result Performing Organization Address City/[facility] Co de Phone Number [facility] [address] [place] [address], [id number] * CHLAMYDIA GC RNA (06/05/2024 1:22 PM CDT) SPECIMEN VAGINAL SPECIMEN 06/05/2024 1:36 PM CDT [facility] CHLAMYDIA RNA TMA NEGATIVE NEGATIVE 025 1:44 PM CDT [facility] Comment:PERFORMED BY NUCLEIC ACID AMPLIFICATION N.GONORRHOEAE RNA TMA NEGATIVE NEGATIVE 06/06/2024 1:44 PM CDT [facility] Comment:PERFORMED BY NUCLEIC ACID AMPLIFICATION VAGINAL STRUCTURE / Unknown 06/05/2024 1:22 PM CDT Anastasia Lebron [facility] MICROBIOLOGY - GENERAL RM MOSS Final Result Performing Organization Address [facility] de Phone Number [facility] [address] [place] [address], [facility] [address] [place] [address], [phone] * (ABNORMAL) URINALYSIS (06/05/2024 1:22 PM CDT) COLOR (U) LIGHT YELLOW 06/05/2024 1:45 PM CDT [facility] TRANSPARENCY CLOUDY 06/05/2024 1:45 PM CDT [facility] SPECIFIC GRAVITY (U) 1.017 1.002 - 1.035 06/05/2024 1:45 PM CDT [facility] U PH 7.5 5 - 8 06/05/2024 1:45 PM CDT [facility] PROTEIN RANDOM (U) NEGATIVE NEGATIVE 06/05/2024 1:45 PM CDT [facility] GLUCOSE (U) NEGATIVE NEGATIVE MG/DL 06/05/2024 1:45 PM CDT [facility] KETONES MG/DL (U) NEGATIVE NEGATIVE 06/05/2024 1:45 PM CDT [facility] BILIRUBIN (U) NEGATIVE NEGATIVE 06/05/2024 1:45 PM CDT [facility] BLOOD (U) 2+(A) NEGATIVE 06/05/2024 1:45 PM CDT [facility] NITRITES NEGATIVE NEGATIVE 06/05/2024 1:45 PM CDT [facility] UROBILINOGEN NORMAL 0 - 1 EU/DL 06/05/2024 1:45 PM CDT [facility] LEUKOCYTES (U) TRACE(A) NEGATIVE 06/05/2024 1:45 PM CDT [facility] RBC/HPF 65(H) 0 - 3 /HPF 06/05/2024 1:45 PM CDT [facility] WBC/HPF 20(H) 0 - 6 /HPF 06/05/2024 1:45 PM CDT [facility] BACTERIA (U) PRESENT /HPF 06/05/2024 1:45 PM CDT [facility] SQUAMOUS EPITHELIALS 2 06/05/2024 1:45 PM CDT [facility] AMORPHOUS SEDIMENT PRESENT 06/05/2024 1:45 PM CDT [facility] URINE SPECIMEN OBTAINED BY CLEAN CATCH PROCEDURE / Unknown 06/05/2024 1:22 PM CDT us Anastasia Lebron ELECTRIC METER SETTER URINE ORDERABLES Final Resu lt [facility] [address] [place] [address], [id number] * TEST URINE (06/05/2024 1:22 PM CDT) URINE HCG TEST NEGATIVE 06/05/2024 1:38 PM CDT [facility] URINE SPECIMEN FROM URETHRA / Unknown 06/05/2024 1:22 PM CDT us Anastasia SAWANTP URINE ORDERABLES Final Resu lt [facility] [address] [place] [address], [place] [phone] * CULTURE URINE (06/05/2024 1:19 PM CDT) SPEC DESCRIPTION URINE CLEAN CATCH 06/05/2024 1:19 PM CDT [facility] SPECIAL REQUESTS NO SPECIAL REQUEST 06/05/2024 1:19 PM CDT [facility] CULTURE RESULT FEW CONTAMINANTS 05/24 8:38 AM CDT [facility] CULTURE RESULT >10,000 TO 25,000 CFU/mL BETA STREPTOCOCCUS GROUP B 06/07/2024 8:38 AM CDT [facility] CULTURE RESULT BETA STREPTOCOCCUS GROUP B WAS IDENTIFIED AMONG THE FEW CONTAMINANTS . ALTHOUGH FINDINGS ARE CONSISTENT WITH CONTAMINATION, PRESENCE OF BETA STREPTOCOCCUS GROUP B IN A PATIENT OF CHILD BEARING AGE COULD BE POTENTIALLY CLINICALLY SIGNIFICANT. SUSCEPTIBILITIES WERE PERFORMED. 06/07/2024 8:38 AM CDT [facility] URINE SPECIMEN OBTAINED BY CLEAN CATCH PROCEDURE / Unknown 06/05/2024 1:19 PM CDT 06/05/2024 1:35 PM CDT Narrative Organism Antibiotic Method Susceptibility Beta streptococcus group b AMPICILLIN KENNY (VITEK) Sensitive Beta streptococcus group b CEFTRIAXONE KENNY (VITEK) Sensitive Beta streptococcus group b CEFOTAXIME KENNY (VITEK) Sensitive Beta streptococcus group b PENICILLIN G KENNY (VITEK) Sensitive Beta streptococcus group b TIGECYCLINE KENNY (VITEK) Sensitive Beta streptococcus group b VANCOMYCIN KENNY (VITEK) Sensitive us Anastasia SAWANTP MICROBIOLOGY - GENERAL ORDE RABLES Final Result Performing Organization Address [facility]/ZIP Co de Phone Number [facility] [address] [place] [address], [place] [phone] * HEPATITIS PANEL,ACUTE (10/13/2023 3:24 AM CDT) HEPATITIS B SURFACE AG NON-REACT VARGHESE NON-REACT VARGHESE 10/13/2023 1:41 PM CDT [facility] Comment:HBsAg NOT DETECTED. HEP B CORE IGM NON-REACT VARGHESE NON-REACT VARGHESE 10/13/2023 1:41 PM CDT [facility] Comment: IgM ANTI HBc NOT DETECTED. DOES NOT EXCLUDE THE POSSIBILITY OF EXPOSURE TO OR INFECTION WITH HBV. NO RETEST REQUIRED. HIGH DOSES OF BIOTIN MAY INTERFERE WITH THIS TEST RESULT. CORRELATION TO CLINICAL HISTORY AND PRESENTATION RECOMMENDED. HAV IGM NON-REACT VARGHESE NON-REACT VARGHESE 10/13/2023 1:41 PM CDT [facility] Comment: IgM ANTI HAV NOT DETECTED. DOES NOT EXCLUDE THE POSSIBILITY OF EXPOSURE TO OR INFECTION WITH HAV. LEVELS OF IgM ANTI HAV MAY BE BELOW THE CUTOFF IN EARLY INFECTION. HEPATITIS C AB NON-REACT VARGHESE NON-REACT VARGHESE 10/13/2023 1:42 PM CDT [facility] Comment: ANTIBODIES TO HCV NOT DETECTED. DOES NOT EXCLUDE THE POSSIBILITY OF EXPOSURE TO HCV. 10/13/2023 3:24 AM CDT Tenisha Cheema MD LABORATORY Final Result [facility] [address] [place] [address], [id number] from Last 3 Months or Most Recently Relevant to Health Maintenance Insurance [employer] Advance Directives Documents on File Type Date Recorded Patient Paralegal Expl anation Advance Directives and Living Will 05/10/2015 12:00 AM ADVANCED DIRECTIVES Advance Directives and Living Will 08/06/2013 12:00 AM ADVANCED DIRECTIVES Advance Directives and Living Will 12/28/2012 12:00 AM ADVANCED DIRECTIVES * Full Code (Latest Code Status on File) Date Activated Date Inactivated Comments 10/13/2023 5:53 AM 10/14/2023 10:50 AM Care Teams Stain Applicator Relationship Specialty Start Date End Date Francisco Javier Ivan MD [address] [address] PCP - General FAMILY PRACTICE 06/05/24
[2024-06-30] MEDS: ONDANSETRON INJ 4 MG/2 ML VIAL IV PUSH (10:09)
[2024-06-30] MEDS: KETOROLAC 30 MG/ML VIAL (*BKC) IV PUSH (10:09)
[2024-06-30] MEDS: SODIUM CHLORIDE 0.9% IV 1,000 ML 999 ML IV CONT ×2 (10:09→10:44)
[2024-06-30 10:15] VITALS: BP 105/70; PULSE 66; RESP 14; O2SAT 100
[2024-06-30 10:16] LABS: Basophils Absolute Auto 0.04 K/mm3 (0.00-0.10); Basophils Percent Auto 0.6 % (0.0-1.0); Eosinophils Absolute Auto 0.05 K/mm3 (0.02-0.50); Eosinophils Percent Auto 0.7 % (1.0-6.0); Hematocrit 39.6 % (35.0-49.0); Hemoglobin 12.7 g/dL (12.0-15.0); Immature Granulocyte Absolute 0.01 K/mm3 (0.00-0.00); Immature Granulocyte Percent A 0.1 % (0.0-0.0); Lymphocytes Absolute Auto 1.59 K/mm3 (1.10-4.50); Lymphocytes Percent Auto 22.7 % (18.0-42.0); Mean Corpuscular HGB Conc 32.1 g/dL (32-36); Mean Corpuscular Hemoglobin 30.2 pg (27.0-31.0); Mean Corpuscular Volume 94.1 fL (78.0-102.0); Mean Platelet Volume 9.8 fl (9.2-11.8); Monocytes Absolute Auto 0.37 K/mm3 (0.10-0.90); Monocytes Percent Auto 5.3 % (2.0-11.0); Neutrophils Absolute Auto 4.93 K/mm3 (1.70-7.20); Neutrophils Percent Auto 70.6 % (50.0-70.0); Platelet Count Result 320 K/mm3 (150-420); Red Blood Count 4.21 M/mm3 (4.20-5.40); Red Cell Distribution Width 12.1 % (11.6-14.4)
[2024-06-30 10:30] LABS: INR 0.9; Partial Thromboplastin Time 26.3 Sec (23.9-30.70); Prothrombin Time 10.5 Seconds (9.50-12.1)
[2024-06-30 10:37] LABS: Alanine Aminotransferase 14 U/L (14-59); Albumin Level 3.4 g/dL (3.4-5.0); Alkaline Phosphatase 79 U/L (46-116); Anion Gap 2 mmol/L (4-12); Aspartate Amino Transferase < 10 U/L (15-37); Bilirubin,Total 0.3 mg/dL (0.00-1.00); Blood Urea Nitrogen 6 mg/dL (7-18); Calcium 8.9 mg/dL (8.5-10.1); Carbon Dioxide 32 mmol/L (21-32); Chloride 105 mmol/L (98-108); Estimated CRCL calculation 44 ml/min; Estimated Glomerular Filt Rate 54; Glucose 104 mg/dL (70-99); Lipase 43 U/L (16-77); Osmolality Calculated 285 mOsm/kg (285-295); Potassium 3.8 mmol/L (3.5-5.1); Sodium 139 mmol/L (136-145); Total Protein 6.7 g/dL (6.4-8.2)
[2024-06-30 10:41] LABS: Lactic Acid Reflex 1.8 mmol/L (0.4-2.0)
--- OUTSIDE RECORDS SUMMARY | 2024-06-30 10:42 | XMS_ITS | Clinical Summary ---
Author Organization [facility] Address [address] [place] [address] Care Team Providers Care Metal Furniture Polisher Name Role Phone Christofer Stewart MD Primary [...] 1.7 cm about 1.5 years ago in [facility] - obtain US of thyroid, [...] on file Legal Sex Female 11:53 AM HUMAN RESOURCES MANAGER Gender Identity Not on file Sexual [...] patient's age to complete this topic Insurance [facility] Advance Directives For more information, please contact: [phone] * Full Code (Latest Code Status on File) Date Activated Date Inactivated Comments 10/20/2023 12:17 PM 10/20/2023 8:58 PM Care Teams Metal Furniture Polisher Relationship Specialty Start Date End Date Christofer Stewart MD PCP - General Family Medicine 06/23/23
--- OUTSIDE RECORDS SUMMARY | 2024-06-30 10:42 | XMS_ITS | Referral Summary ---
Author Organization [facility] Address [address] [place] [address] Care Team Providers Care Court Clerk Name Role Phone Christofer Stewart MD Primary [...] cm about 1.5 years ago in [facility] - obtain US of thyroid, [...] on file Legal Sex Female 11:53 AM ANALYST GEOCHEMICAL PROSPECTING Gender Identity Not on file Sexual Orientation [...] of Treatment Not on file Insurance [facility] Advance Directives For more information, please contact: [phone] * Full Code (Latest Code Status on File) Date Activated Date Inactivated Comments 10/20/2023 12:17 PM 10/20/2023 8:[address] Clerk Relationship Specialty Start Date End Date Christofer Stewart MD PCP - General Family Medicine 06/23/23
--- OUTSIDE RECORDS SUMMARY | 2024-06-30 10:42 | XMS_ITS | Encounter Summary ---
Author Organization [facility] Address [address] [place] [address] Care Team Providers Care Catering Chef Name Role Phone Francisco Javier Ivan MD Primary Care Provider [phone] Encounter Details Date Type Department Care Team (Late st Contact Info) Description 06/05/2024 Results Follow-Up [facility] Emergency [address] [place] [address] Evon Serrano, PharmD VAGINITIS SCREEN (VDS) Social History Tobacco Use Types Packs/Day Years Used Date Smoking Tobacco: Every Day Cigarettes Smokeless Tobacco: Never Alcohol Use Standard Drinks/Week Comments Never 0 (1 standard drink = 0.6 oz pur e alcohol) [facility] Utilities Answer Date Recorded In the past 12 months has e [employer], gas, oil, or water [employer] threatened to shut off services in your [...] any time in the past 12 m [facility], were you homeless or living in a half-way (including now)? Yes 10/13/2023 Comments No Sex [...] 1:08 PM Sherley Phan RN Active * [place] Suicide Severity Rating Scale (Screener/Recent Self-Report) Question [...] on filedocumented in this encounter Care Teams Catering Chef Relationship Specialty Start Date End Date Francisco Javier Ivan MD [address] [place] [address] PCP - General FAMILY PRACTICE 06/05/24 documented as of this encounter
--- OUTSIDE RECORDS SUMMARY | 2024-06-30 10:43 | XMS_ITS | Clinical Summary ---
Author Organization [facility] Address [address] [place] [address] Care Team Providers Care Steel Hanger Name Role Phone Francisco Javier Ivan MD Primary Care Provider [phone] Allergies Active Allergy Reactions Criticality Noted Date [...] CDT - 06/05/2024 2:05 PM CDT Emergency [facility] Emergency [address] [place] [address] Anastasia Lebron, MACHINE TESTER Urinary Symptoms; STD Screening Discharge Disposition: Home or Self Care (Routine Discharge) 06/05/2024 Results Follow-Up [facility] Emergency [address] [place] [address] Evon Serrano, PharmD VAGINITIS SCREEN (VDS) 06/05/2024 Travel from Last 3 Months Social History Tobacco Use Types Packs/Day Years Used Date Smoking Tobacco: Every Day Cigarettes Smokeless Tobacco: Never Tobacco Cessation:Ready to Q uit: Not Asked; Counseling Given: Not Answered Alcohol Use Standard Drinks/Week Comments Never 0 (1 standard drink = 0.6 oz pur e alcohol) [facility] Utilities Answer Date Recorded In the past 12 months has e [employer], gas, oil, or water [employer] threatened to shut off services in your [...] were you homeless or living in a group home (including now)? Yes 10/13/2023 Comments No [...] VE NON-REACTI VE 06/05/2024 5:49 PM CDT [facility] Comment: No serologic evidence of syphilis. No follow-up necessary unless clinically indicated. 06/05/2024 1:40 PM CDT us Anastasia SAWANTP LABORATORY Final Resul t Performing Organization Address [facility] Co de Phone Number [facility] [address] [place] [address], [place] [phone] * HIV 1 ANTIGEN(S), WITH HIV-1 AND HIV-2 ANTIBODIES (06/05/2024 1:40 PM CDT) HIV 1/2 AB+ HIV1 P24 AG NON-REACTI VE NON-REACTI VE 06/05/2024 5:49 PM CDT [facility] Comment:HIV 1 p24 Ag and HIV 1/ HIV 2 Ab not detected. 06/05/2024 1:40 PM CDT us Anastasia SAWANTP LABORATORY Final Resul t Performing Organization Address [facility] de Phone Number [facility] [address] [place] [address], [place] [phone] * (ABNORMAL) VAGINITIS SCREEN (VDS) (06/05/2024 1:35 PM CDT) Pathologist [facility] SPECIMEN SOURCE VAGINAL SPECIMEN 06/05/2024 1:36 PM CDT [facility] TRICHOMONAS NEGATIVE NEGATIVE 06/05/2024 2:56 PM CDT [facility] Comment:NOT DETECTED BY DNA PROBE GARDNERELLA VAGINALIS POSITIVE(A) NEGATIVE 06/05/2024 2:56 PM CDT [facility] Comment:DETECTED BY DNA PROB E SARAH SPECIES NEGATIVE NEGATIVE 2:56 PM CDT [facility] Comment:NOT DETECTED BY DNA PROBE VAGINAL STRUCTURE / Unknown 06/05/2024 1:35 PM CDT us Anastasia SAWANTP MICROBIOLOGY - GENERAL ORDE RABLES Final Result Performing Organization Address City/[facility] Co de Phone Number [facility] [address] [place] [address], [phone] * CHLAMYDIA GC RNA (06/05/2024 1:22 PM CDT) SPECIMEN VAGINAL SPECIMEN 06/05/2024 1:36 PM CDT [facility] CHLAMYDIA RNA TMA NEGATIVE NEGATIVE 025 1:44 PM CDT [facility] Comment:PERFORMED BY NUCLEIC ACID AMPLIFICATION N.GONORRHOEAE RNA TMA NEGATIVE NEGATIVE 06/06/2024 1:44 PM CDT [facility] Comment:PERFORMED BY NUCLEIC ACID AMPLIFICATION VAGINAL STRUCTURE / Unknown 06/05/2024 1:22 PM CDT Anastasia Lebron [facility] MICROBIOLOGY - GENERAL RM MOSS Final Result Performing Organization Address [facility] de Phone Number [facility] [address] [place] [address], [facility] [address] [place] [address], [id number] * (ABNORMAL) URINALYSIS (06/05/2024 1:22 PM CDT) COLOR (U) LIGHT YELLOW 06/05/2024 1:45 PM CDT [facility] TRANSPARENCY CLOUDY 06/05/2024 1:45 PM CDT [facility] SPECIFIC GRAVITY (U) 1.017 1.002 - 1.035 06/05/2024 1:45 PM CDT [facility] U PH 7.5 5 - 8 06/05/2024 1:45 PM CDT [facility] PROTEIN RANDOM (U) NEGATIVE NEGATIVE 06/05/2024 1:45 PM CDT [facility] GLUCOSE (U) NEGATIVE NEGATIVE MG/DL 06/05/2024 1:45 PM CDT [facility] KETONES MG/DL (U) NEGATIVE NEGATIVE 06/05/2024 1:45 PM CDT [facility] BILIRUBIN (U) NEGATIVE NEGATIVE 06/05/2024 1:45 PM CDT [facility] BLOOD (U) 2+(A) NEGATIVE 06/05/2024 1:45 PM CDT [facility] NITRITES NEGATIVE NEGATIVE 06/05/2024 1:45 PM CDT [facility] UROBILINOGEN NORMAL 0 - 1 EU/DL 06/05/2024 1:45 PM CDT [facility] LEUKOCYTES (U) TRACE(A) NEGATIVE 06/05/2024 1:45 PM CDT [facility] RBC/HPF 65(H) 0 - 3 /HPF 06/05/2024 1:45 PM CDT [facility] WBC/HPF 20(H) 0 - 6 /HPF 06/05/2024 1:45 PM CDT [facility] BACTERIA (U) PRESENT /HPF 06/05/2024 1:45 PM CDT [facility] SQUAMOUS EPITHELIALS 2 06/05/2024 1:45 PM CDT [facility] AMORPHOUS SEDIMENT PRESENT 06/05/2024 1:45 PM CDT [facility] URINE SPECIMEN OBTAINED BY CLEAN CATCH PROCEDURE / Unknown 06/05/2024 1:22 PM CDT us Anastasia Lebron MACHINE TESTER URINE ORDERABLES Final Resu lt [facility] [address] [place] [address], [id number] * TEST URINE (06/05/2024 1:22 PM CDT) URINE HCG TEST NEGATIVE 06/05/2024 1:38 PM CDT [facility] URINE SPECIMEN FROM URETHRA / Unknown 06/05/2024 1:22 PM CDT us Anastasia SAWANTP URINE ORDERABLES Final Resu lt [facility] [address] [place] [address], [place] [phone] * CULTURE URINE (06/05/2024 1:19 PM CDT) SPEC DESCRIPTION URINE CLEAN CATCH 06/05/2024 1:19 PM CDT [facility] SPECIAL REQUESTS NO SPECIAL REQUEST 06/05/2024 1:19 PM CDT [facility] CULTURE RESULT FEW CONTAMINANTS 05/24 8:38 AM CDT [facility] CULTURE RESULT >10,000 TO 25,000 CFU/mL BETA STREPTOCOCCUS GROUP B 06/07/2024 8:38 AM CDT [facility] CULTURE RESULT BETA STREPTOCOCCUS GROUP B WAS IDENTIFIED AMONG THE FEW CONTAMINANTS . ALTHOUGH FINDINGS ARE CONSISTENT WITH CONTAMINATION, PRESENCE OF BETA STREPTOCOCCUS GROUP B IN A PATIENT OF CHILD BEARING AGE COULD BE POTENTIALLY CLINICALLY SIGNIFICANT. SUSCEPTIBILITIES WERE PERFORMED. 06/07/2024 8:38 AM CDT [facility] URINE SPECIMEN OBTAINED BY CLEAN [...] ORDE RABLES Final Result Performing Organization Address [facility]/ZIP Co de Phone Number [facility] [address] [place] [address], [place] [phone] * HEPATITIS PANEL,ACUTE (10/13/2023 3:24 AM CDT) HEPATITIS B SURFACE AG NON-REACT VARGHESE NON-REACT VARGHESE 10/13/2023 1:41 PM CDT [facility] Comment:HBsAg NOT DETECTED. HEP B CORE IGM NON-REACT VARGHESE NON-REACT VARGHESE 10/13/2023 1:41 PM CDT [facility] Comment: IgM ANTI HBc NOT DETECTED. DOES NOT EXCLUDE THE POSSIBILITY OF EXPOSURE TO OR INFECTION WITH HBV. NO RETEST REQUIRED. HIGH DOSES OF BIOTIN MAY INTERFERE WITH THIS TEST RESULT. CORRELATION TO CLINICAL HISTORY AND PRESENTATION RECOMMENDED. HAV IGM NON-REACT VARGHESE NON-REACT VARGHESE 10/13/2023 1:41 PM CDT [facility] Comment: IgM ANTI HAV NOT DETECTED. DOES NOT EXCLUDE THE POSSIBILITY OF EXPOSURE TO OR INFECTION WITH HAV. LEVELS OF IgM ANTI HAV MAY BE BELOW THE CUTOFF IN EARLY INFECTION. HEPATITIS C AB NON-REACT VARGHESE NON-REACT VARGHESE 10/13/2023 1:42 PM CDT [facility] Comment: ANTIBODIES TO HCV NOT DETECTED. DOES NOT EXCLUDE THE POSSIBILITY OF EXPOSURE TO HCV. 10/13/2023 3:24 AM CDT Tenisha Cheema MD LABORATORY Final Result [facility] [address] [place] [address], [phone] from Last 3 Months or Most Recently Relevant to Health Maintenance Insurance [employer] Advance Directives Documents on File Type Date Recorded Patient Automated Cutting Machine Operator Expl anation Advance Directives and Living Will 05/10/2015 12:00 AM ADVANCED DIRECTIVES Advance Directives and Living Will 08/06/2013 12:00 AM ADVANCED DIRECTIVES Advance Directives and Living Will 12/28/2012 12:00 AM ADVANCED DIRECTIVES * Full Code (Latest Code Status on File) Date Activated Date Inactivated Comments 10/13/2023 5:53 AM 10/14/2023 10:50 AM Care Teams Steel Hanger Relationship Specialty Start Date End Date Francisco Javier Ivan MD [address] [address] PCP - General FAMILY PRACTICE 06/05/24
--- OUTSIDE RECORDS SUMMARY | 2024-06-30 10:43 | XMS_ITS | Clinical Summary ---
Author Organization [facility] [facility] Address [address] [address] Care Team Providers Care Freight Traffic Consultant Name Role Phone Mario Logan MD Primary Care Provider Source Comments [facility],non-owned Affiliates and Associated Physician Practices is amultiple site organization consisting of ambulatory clinics and hospital sitesin [place], [place], [place] and [place]. This disclosure is being madepursuant to the Care Everywhere program and may not contain all information available regarding this patient. Last updated 17.[facility] Allergies Active Allergy Reactions Criticality Noted Date [...] naloxone HCl (NARCAN) 4 MG/0.1ML nasal spray [place] 1 spray into the nose as needed [...] migh t be different from the original. [id number] Problem Noted Date Diagnosed Date Non-reactive NST [...] dose-270 mg from [facility]. Scanned Into media. Previously used [...] on file Legal Sex Female 7:09 AM PRODUCT SAFETY ENGINEER Gender Identity Not on file Sexual Orientation [...] P24 AG PANEL Routine 03/10/2019 1:24 PM PRODUCT SAFETY ENGINEER Supervision of high risk in second trimester HEPATITIS C ANTIBODY Routine 11/11/2018 12:07 PM CDT Supervision of high risk , antepartum from Last 3 Months or Most Recently Relevant to Health Maintenance Results * HIV-1 HIV-2 ANTIBODY + HIV P24 AG PANEL (03/10/2019 1:24 PM PRODUCT SAFETY ENGINEER) Pathologist [facility] HIV1/2 Ab + P24 Ag Non Reactive Non Reactive 03/10/2019 2:57 PM PRODUCT SAFETY ENGINEER [facility] Blood BLOOD SPECIMEN / Unknown Venipuncture / Unknown 03/10/2019 1:24 PM PRODUCT SAFETY ENGINEER 03/10/2019 1:49 PM PRODUCT SAFETY ENGINEER Narrative [facility] - 03/10/2019 2:57 PM PRODUCT SAFETY ENGINEER No Laboratory evidence of HIV infection. us Ivana Thomas SNOWBOARD INSTRUCTOR-SPECIAL EDUCATION SCIENCE TEACHER LAB - CHEMISTRY ORDERAB LES Final Result [facility] [address] [place] [address] * HEPATITIS C ANTIBODY (11/11/2018 12:07 PM CDT) HCV Antibody Screen Non Reactive Non Reactive 11/11/2018 1:55 PM CDT [facility] HCV S/C Ratio 0.19 0.00 - 0.79 11/11/2018 1:55 PM CDT [facility] Comment: Tsumib-ur-frvlvy ratio (S/CO) <0.80: Non Reactive Blood BLOOD SPECIMEN / Unknown Venipuncture / Unknown 11/11/2018 12:07 PM CDT 11/11/2018 12:56 PM CDT Narrative [facility] - 11/11/2018 1:55 PM CDT Non Reactive - Antibodies to Hepatitis C virus (HCV) were not detected, result does not exclude early acute HCV infection. Helen Zurita SNOWBOARD INSTRUCTOR-SPECIAL EDUCATION SCIENCE TEACHER LAB - CHEMISTRY ORDERA BLES Final Result Performing Organization Address City/State/[facility] Co de Phone Number [facility] [address] [place] [address] from Last 3 Months or Most Recently Relevant to Health Maintenance Insurance [facility] Advance Directives * Full Code (Latest [...] 11:00 AM 03/17/2019 7:31 PM Care Teams Freight Traffic Consultant Relationship Specialty Start Date End Date Mario Logan MD [address] [place] [address] PCP - General 05/24/19
--- OUTSIDE RECORDS SUMMARY | 2024-06-30 10:43 | XMS_ITS | Encounter Summary ---
Author Organization [facility] Address [address] [place] [address] Care Team Providers Care Quarry Supervisor Dimension Stone Name Role Phone None, Provider Primary Care Provider Francisco Javier Santana MD Primary Care Provider [phone] Encounter Details Date Type Department Care Team (Late st Contact Info) Description 07/31/2018 Abstract [facility]FL CONVERSION [address] [address] , Generic Conversion, Social History Tobacco Use [...] on filedocumented in this encounter Care Teams Quarry Supervisor Dimension Stone Relationship Specialty Start Date End Date None, Provider, PCP - General UNKNOWN PHYSICIAN SPECIALTY 07/13/23 06/04/24 Francisco Javier Ivan MD [address] [place] [address] PCP - General FAMILY PRACTICE 06/05/24 documented as of this encounter
[2024-06-30 10:55] LABS: Add Urine Microscopic? YES; Bilirubin Urine Negative (Negative); Blood Urine 3+ (Negative); Color Urine Light Yellow (Yellow); Glucose Urine UA Negative (Negative); Ketones Urine Negative (Negative); Leukocyte Esterase Ur Trace LEU/UL (Negative); Nitrate Urine Negative (Negative); Protein Urine 1+ (Negative); Urobilinogen Urine 0.2 mg/dL (0.2-1.0); pH Urine 7.5 (5.0-8.0)
[2024-06-30 11:07] LABS: Appearance Urine Cloudy (Clear)
[2024-06-30 11:08] LABS: Bacteria Urine 2+ /hpf; Mucus Urine Present /lpf; RBC Urine 21-50 /hpf (0-2); Squamous Epithelial Cell Urine Few /hpf (Few); WBC Urine 21-30 /hpf (0-3)
[2024-06-30 11:15] VITALS: BP 146/63; PULSE 65; RESP 16; O2SAT 100
[2024-06-30 11:25] LABS: Pregnancy On Board Control Positive; Urine Pregnancy Test Negative
[2024-06-30 12:00] VITALS: BP 102/65; PULSE 73; RESP 14; TEMP 36.8; O2SAT 100
[2024-06-30] MEDS: levoFLOXacin 500 MG/D5W 100 ML 500 MG/100 ML BAG 100 MG IVPB (12:35)
--- NOTE | 2024-06-30 13:06 | ED.ABDPAIN ---
HPI - Abdominal Pain General Chief Complaint: Urogenital-Female Stated Complaint: abdominal pain; back pain Time Seen by Provider: 06/30/24 09:38 Source: patient Mode of arrival: ambulatory Limitations: no limitations History of Present Illness HPI narrative: this is a 44-year-old female with no significant past medical history prevent presents with lower abdominal pain suprapubic with some mild flank discomfort with palpation with no nausea or vomiting no fever chills no dysuria or hematuria. MD elicited complaint: abdominal pain Onset (ago): hour(s) Pain Consistency: constant Location: diffuse and suprapubic Severity: moderate Quality: aching Related Data Home Medications ?Medication ?Instructions ?Recorded ?Confirmed ?Last Taken ?Type aripiprazole 5 mg tablet (Abilify) 5 mg PO DAILY 05/17/24 05/17/24 Unknown History lorazepam 0.5 mg tablet (Ativan) 0.5 mg PO Q6H PRN anxiety 05/17/24 05/17/24 Unknown History trazodone 50 mg tablet mg 05/17/24 Unknown History Allergies Allergy/AdvReac Type Severity Reaction Status Date / Time Penicillins Allergy Severe Difficulty Verified 06/30/24 09:37 Swallowing codeine AdvReac Swelling Verified 06/30/24 09:37 Review of Systems Review of Systems: All systems reviewed & are unremarkable except as noted in HPI and below PMFSH Past Medical History Medical History Drug abuse Tooth decay Surgical History Surgical History History of x3 Family History Family History Father No problems noted. Father Lung cancer Mother Heart disease Social History Social History Years smoked: 20 Smoking status: Current every day smoker Tobacco type: cigarettes Second hand tobacco smoke exposure: Yes Alcohol intake: former Substance use: former Substance use type: does not use Gender identity (if verbalized by the patient): Female Spiritual care concerns: No Exam Const: General: healthy appearing Nutritional Appearance: well nourished Orientation/consciousness: patient oriented x3 Limitations: no limitations Neck: Neck: normal visual inspection Chest: Chest palpation & inspection: normal inspection of the chest Resp: Effort & Inspection: normal respiratory effort Auscultation: clear to auscultation bilaterally Cardio: Rate: regular rate Rhythm: regular rhythm GI: GI Palp: Yes Soft to palpation Auscultation: normal bowel sounds : General: Yes bladder normal to palpation Urinary Catheter: Urinary Catheter: patent and draining Skin: General skin exam: normal color Rashes: no rashes Neuro: General: patient oriented x3 Cranial nerves: Yes Nystagmus not present Extrem: General: normal to inspection Course Course Emergency Course: Patient had CT scan which showed no evidence of pyelonephritis patient had vaginal discharge and a gonorrhea and chlamydia urine was obtained, patient was started on Levaquin for urinary tract infection. Patient received IV fluids, labs reviewed which showed normal lab work. Vital Signs Vital signs: Vital Signs Temperature 36.4 C 06/30/24 09:28 Pulse Rate 79 06/30/24 09:28 Respiratory Rate 18 06/30/24 09:28 Blood Pressure 122/81 06/30/24 09:28 Pulse Oximetry 98 06/30/24 09:28 Oxygen Delivery Room Air 06/30/24 09:28 Temperature 36.8 C 06/30/24 12:00 Pulse Rate 73 06/30/24 12:00 Respiratory Rate 14 06/30/24 12:00 Blood Pressure 102/65 06/30/24 12:00 Pulse Oximetry 100 06/30/24 12:00 Oxygen Delivery Room Air 06/30/24 12:00 MDM - Abdominal Pain Lab Data 06/30/24 10:10 06/30/24 10:10 Labs: Lab Results 06/30/24 06/30/24 Range/Units 10:10 10:45 WBC 7.0 (4.8-10.8) K/mm3 RBC 4.21 (4.20-5.40) M/mm3 Hgb 12.7 (12.0-15.0) g/dL Hct 39.6 (35.0-49.0) % MCV 94.1 (78.0-102.0) fL MCH 30.2 (27.0-31.0) pg MCHC 32.1 (32-36) g/dL RDW 12.1 (11.6-14.4) % Plt Count 320 (150-420) K/mm3 MPV 9.8 (9.2-11.8) fl Immature Gran % (Auto) 0.1 H (0.0-0.0) % Neut % (Auto) 70.6 H (50.0-70.0) % Lymph % (Auto) 22.7 (18.0-42.0) % [place] % (Auto) 5.3 (2.0-11.0) % Eos % (Auto) 0.7 L (1.0-6.0) % Baso % (Auto) 0.6 (0.0-1.0) % Lymph # (Auto) 1.59 (1.10-4.50) K/mm3 [place] # (Auto) 0.37 (0.10-0.90) K/mm3 Eos # (Auto) 0.05 (0.02-0.50) K/mm3 Baso # (Auto) 0.04 (0.00-0.10) K/mm3 Abs Immat Gran (auto) 0.01 H (0.00-0.00) K/mm3 Absolute Neuts (auto) 4.93 (1.70-7.20) K/mm3 Absolute Nucleated RBC 0.00 (0.00-0.00) K/mm3 Nucleated RBC % 0.0 (0-0.0) % PT 10.5 (9.50-12.1) Seconds INR 0.9 APTT 26.3 (23.9-30.70) Sec Sodium 139 (136-145) mmol/L Potassium 3.8 (3.5-5.1) mmol/L Chloride 105 (98-108) mmol/L Carbon Dioxide 32 (21-32) mmol/L Anion Gap 2 L (4-12) mmol/L BUN 6 L (7-18) mg/dL Creatinine 1.11 H (0.55-1.02) mg/dL Estim Creat Clear Calc 44 ml/min Estimated GFR 54 L (59 - ) Glucose 104 H (70-99) mg/dL Calculated Osmolality 285 (285-295) mOsm/kg Lactic Acid 1.8 (0.4-2.0) mmol/L Calcium 8.9 (8.5-10.1) mg/dL Total Bilirubin 0.3 (0.00-1.00) mg/dL AST < 10 L (15-37) U/L ALT 14 (14-59) U/L Alkaline Phosphatase 79 (46-116) U/L Total Protein 6.7 (6.4-8.2) g/dL Albumin 3.4 (3.4-5.0) g/dL Lipase 43 (16-77) U/L Urine Color Light yellow (Yellow) Urine Appearance Cloudy A (Clear) Urine pH 7.5 (5.0-8.0) Ur Specific [place] 1.020 (1.010-1.020) Urine Protein 1+ H (Negative) Urine Glucose (UA) Negative (Negative) Urine Ketones Negative (Negative) Ur Blood (Man) 3+ H (Negative) Urine Nitrate Negative (Negative) Urine Bilirubin Negative (Negative) Urine Urobilinogen 0.2 (0.2-1.0) mg/dL Leukocyte Esterase Rfl Trace H (Negative) YANET/UL Urine RBC 21-50 H (0-2) /hpf Urine WBC 21-30 H (0-3) /hpf Ur Squamous Epith Cells Few (Few) /hpf Urine Bacteria 2+ H (None) /hpf Urine Mucus Present /lpf Urine Test Negative C. trachomatis (PCR) Pending N. gonorrhoeae (PCR) Pending Imaging Data Radiologist's impression: ITS Impressions Abdomen/Pelvis CT 06/30/24 11:41 IMPRESSION: 1. Material interspersed gas within the vaginal vault but no definitive colovaginal fistula identified. Critical Care Time Critical Care Time Critical Care Time: No Discharge Plan Discharge Clinical Impression: Urinary tract infection Qualifiers: Urinary tract infection type: site unspecified Hematuria presence: without hematuria Qualified Code(s): N39.0 - Urinary tract infection, site not specified Patient Disposition: Home Condition: Stable Instructions: Antibiotic Form, Urinary Tract Infection in Women (ED) Additional Instructions: advised patient to take medication as prescribed and to follow with primary within the next 3 to 5 days further evaluation and treatment. Patient Language: German Prescriptions: New levofloxacin 500 mg tablet 500 mg PO DAILY Qty: 6 0RF No Action trazodone 50 mg tablet aripiprazole [Abilify] 5 mg tablet 5 mg PO DAILY lorazepam [Ativan] 0.5 mg tablet 0.5 mg PO Q6H PRN (Reason: anxiety) azithromycin 500 mg tablet See Rx Instructions .ROUTE .COMPLEX Qty: 3 0RF Rx Instructions: For 500 mg dose pack: take 500 mg once daily for 3 days prednisone 20 mg tablet 20 mg PO DAILY 3 Days Qty: 3 0RF ondansetron 4 mg tablet,disintegrating 4 mg PO Q8H PRN (Reason: nausea and vomiting) Qty: 14 0RF Follow-up/Referrals: UNKNOWN,DOCTOR [Primary Care Provider] - Time of Disposition: 13:11
[2024-06-30 13:40] VITALS: BP 105/64; PULSE 69; RESP 16; TEMP 36.7; O2SAT 99
[2024-07-01 08:02] LABS: Chlamydia trachomatis NOT DETECTED (NOT DETECTE); Neisseria gonorrhoeae PCR NOT DETECTED (NOT DETECTE)
--- NOTE | 2024-07-02 17:24 | PC.NURSE ---
BLOOD CULTURE PRELIMINARY NO GROWTH TO DATE
--- NOTE | 2024-07-02 17:26 | PC.NURSE ---
URINE CULTURE FINAL POSITIVE FOR STAPHYLOCOCCUS SAPROPHYTICUS PT ON LEVAQUIN PER DR CRABTREE NO FURTHER ORERERS NEEDED
== END 2024-06-30 13:40 | disposition home or self-care (01) ==
PROVIDERS: Emergency Provider Emergency Medicine
DX: N39.0 Urinary tract infection, site not specified (principal); F17.210 Nicotine dependence, cigarettes, uncomplicated
CPT/HCPCS: 36415; 74176; 74177; 80053; 81001; 81025; 83605; 83690; 85025; 85610; 85730; 87040; 87086; 87491; 87591; 96361; 96365; 96375; 99284; J1885; J1956; J2405; J7030; Q9967

== ENCOUNTER 2024-07-13 14:27 | Emergency (ER) | payer OTHER, SELFPAY ==
[2024-07-13 14:27] VITALS: BP 122/82; PULSE 100; RESP 18; TEMP 36.8; O2SAT 97
--- OUTSIDE RECORDS SUMMARY | 2024-07-13 14:39 | XMS_ITS | Clinical Summary ---
Author Organization [facility] [employer] Address [address] [place] [address] Care Team Providers Care Mincing Machine Operator Name Role Phone Mario Logan MD Primary Care Provider Source Comments [facility] [employer],non-owned Affiliates and Associated Physician Practices is amultiple site organization consisting of ambulatory clinics and hospital sitesin [place], [place], [place] and [place]. This disclosure is being madepursuant to the Care Everywhere program and may not contain all information available regarding this patient. Last updated 17.[facility] [employer] Allergies Active Allergy Reactions Criticality Noted Date [...] naloxone HCl (NARCAN) 4 MG/0.1ML nasal spray [place] 1 spray into the nose as needed [...] migh t be different from the original. [id number] Problem Noted Date Diagnosed Date Non-reactive NST [...] on file Legal Sex Female 7:09 AM NURSE CONSULTANT Gender Identity Not on file Sexual Orientation [...] P24 AG PANEL Routine 03/10/2019 1:24 PM NURSE CONSULTANT Supervision of high risk in second trimester HEPATITIS C ANTIBODY Routine 11/11/2018 12:07 PM CDT Supervision of high risk , antepartum from Last 3 Months or Most Recently Relevant to Health Maintenance Results * HIV-1 HIV-2 ANTIBODY + HIV P24 AG PANEL (03/10/2019 1:24 PM NURSE CONSULTANT) Pathologist [facility] HIV1/2 Ab + P24 Ag Non Reactive Non Reactive 03/10/2019 2:57 PM NURSE CONSULTANT [facility] Blood BLOOD SPECIMEN / Unknown Venipuncture / Unknown 03/10/2019 1:24 PM NURSE CONSULTANT 03/10/2019 1:49 PM NURSE CONSULTANT Narrative [facility] - 03/10/2019 2:57 PM NURSE CONSULTANT No Laboratory evidence of HIV infection. us Ivana Thomas BUILDING MAINTENANCE WORKER-COAGULATING BATH MIXER LAB - CHEMISTRY ORDERAB LES Final Result [facility] [address] [place] [address] * HEPATITIS C ANTIBODY (11/11/2018 12:07 PM CDT) HCV Antibody Screen Non Reactive Non Reactive 11/11/2018 1:55 PM CDT [facility] HCV S/C Ratio 0.19 0.00 - 0.79 11/11/2018 1:55 PM CDT [facility] Comment: [place]buqn-td-ynbwou ratio (S/CO) <0.80: Non Reactive Blood BLOOD SPECIMEN / Unknown Venipuncture / Unknown 11/11/2018 12:07 PM CDT 11/11/2018 12:56 PM CDT Narrative [facility] - 11/11/2018 1:55 PM CDT Non Reactive - Antibodies to Hepatitis C virus (HCV) were not detected, result does not exclude early acute HCV infection. Helen Zurita BUILDING MAINTENANCE WORKER-COAGULATING BATH MIXER LAB - CHEMISTRY ORDERA BLES Final Result Performing Organization Address City/State/[facility] Co de Phone Number [facility] [address] [place] [address] from Last 3 Months or Most Recently Relevant to Health Maintenance Insurance [facility] Advance Directives * Full Code (Latest [...] 11:00 AM 03/17/2019 7:31 PM Care Teams Mincing Machine Operator Relationship Specialty Start Date End Date Mario Logan MD [address] [address] PCP - General 05/24/19
--- OUTSIDE RECORDS SUMMARY | 2024-07-13 14:39 | XMS_ITS | Clinical Summary ---
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
--- OUTSIDE RECORDS SUMMARY | 2024-07-13 14:39 | XMS_ITS | Referral Summary ---
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
--- NOTE | 2024-07-13 14:51 | ECG_ITS ---
Test Date: 2024-07-13 15:12:20 Measurements Intervals [place] Rate: 72 P: 71 [place]: 117 QRS: 77 QRSD: 89 T: 75 QT: 358 QTc: 394 Interpretive Statements SINUS RHYTHM WITH MARKED SINUS ARRHYTHMIA WITH SHORT [place] INTERVAL POSSIBLE LEFT ATRIAL ENLARGEMENT [-0.1mV P-WAVE IN V1/V2] ABNORMAL ECG Electronically Signed On 07-13-2024 15:18:06 CDT by Willis Romero M.D.
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
[2024-07-13 15:09] LABS: Basophils Absolute Auto 0.03 K/mm3 (0.00-0.10); Basophils Percent Auto 0.4 % (0.0-1.0); Eosinophils Absolute Auto 0.04 K/mm3 (0.02-0.50); Eosinophils Percent Auto 0.5 % (1.0-6.0); Hematocrit 39.7 % (35.0-49.0); Hemoglobin 12.9 g/dL (12.0-15.0); Immature Granulocyte Absolute 0.03 K/mm3 (0.00-0.00); Immature Granulocyte Percent A 0.4 % (0.0-0.0); Lymphocytes Absolute Auto 1.76 K/mm3 (1.10-4.50); Lymphocytes Percent Auto 20.8 % (18.0-42.0); Mean Corpuscular HGB Conc 32.5 g/dL (32-36); Mean Corpuscular Hemoglobin 30.1 pg (27.0-31.0); Mean Corpuscular Volume 92.5 fL (78.0-102.0); Mean Platelet Volume 9.3 fl (9.2-11.8); Monocytes Absolute Auto 0.41 K/mm3 (0.10-0.90); Monocytes Percent Auto 4.8 % (2.0-11.0); Neutrophils Absolute Auto 6.19 K/mm3 (1.70-7.20); Neutrophils Percent Auto 73.1 % (50.0-70.0); Platelet Count Result 361 K/mm3 (150-420); Red Blood Count 4.29 M/mm3 (4.20-5.40); Red Cell Distribution Width 12.1 % (11.6-14.4); White Blood Count 8.5 K/mm3 (4.8-10.8)
[2024-07-13] MEDS: ALPRAZolam (*CRX) 0.5 MG TABLET 1 MG PO (15:10)
[2024-07-13 15:22] LABS: Acetaminophen < 10 ug/mL (10-30); Salicylate < 1.0 mg/dL (2-20)
[2024-07-13 15:23] LABS: Ethanol < 10 mg/dL (<10)
--- OUTSIDE RECORDS SUMMARY | 2024-07-13 15:23 | XMS_ITS | Referral Summary ---
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
--- OUTSIDE RECORDS SUMMARY | 2024-07-13 15:23 | XMS_ITS | Clinical Summary ---
Author Organization [facility] Address [address] [place] [address] Care Team Providers Care Risk Assessment Analyst Name Role Phone Mario Logan MD Primary Care Provider Source Comments [facility],non-owned Affiliates and Associated Physician Practices is amultiple site organization consisting of ambulatory clinics and hospital sitesin [place], [place], [place] and [place]. This disclosure is being madepursuant to the Care Everywhere program and may not contain all information available regarding this patient. Last updated 17.[facility] Allergies Active Allergy Reactions Criticality Noted Date [...] naloxone HCl (NARCAN) 4 MG/0.1ML nasal spray [place] 1 spray into the nose as needed [...] migh t be different from the original. [id number] Problem Noted Date Diagnosed Date Non-reactive NST [...] 02/28/2014 Overview (05/05/2019): Confirmed dose-[address] [facility]. Scanned Into media. 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 Gender Identity Not on file Sexual [...] P24 AG PANEL Routine 03/10/2019 1:24 PM CNC OPERATOR Supervision of high risk in second trimester HEPATITIS C ANTIBODY Routine 11/11/2018 12:07 PM CDT Supervision of high risk , antepartum from Last 3 Months or Most Recently Relevant to Health Maintenance Results * HIV-1 HIV-2 ANTIBODY + HIV P24 AG PANEL (03/10/2019 1:24 PM CNC OPERATOR) Pathologist [facility] HIV1/2 Ab + P24 Ag Non Reactive Non Reactive 03/10/2019 2:57 PM CNC OPERATOR [facility] Blood BLOOD SPECIMEN / Unknown Venipuncture / Unknown 03/10/2019 1:24 PM CNC OPERATOR 03/10/2019 1:49 PM CNC OPERATOR Narrative [facility] - 03/10/2019 2:57 PM CNC OPERATOR No Laboratory evidence of HIV infection. us Ivana Thomas LABELER-DISHWASHING MACHINE REPAIRER LAB - CHEMISTRY ORDERAB LES Final Result [facility] [address] [place] [address] * HEPATITIS C ANTIBODY (11/11/2018 12:07 PM CDT) HCV Antibody Screen Non Reactive Non Reactive 11/11/2018 1:55 PM CDT [facility] HCV S/C Ratio 0.19 0.00 - 0.79 11/11/2018 1:55 PM CDT [facility] Comment: Zmqxvc-[id number] ratio (S/CO) <0.80: Non Reactive Blood BLOOD SPECIMEN / Unknown Venipuncture / Unknown 11/11/2018 12:07 PM CDT 11/11/2018 12:56 PM CDT Narrative [facility] - 11/11/2018 1:55 PM CDT Non Reactive - Antibodies to Hepatitis C virus (HCV) were not detected, result does not exclude early acute HCV infection. Helen Zurita LABELER-DISHWASHING MACHINE REPAIRER LAB - CHEMISTRY ORDERA BLES Final Result Performing Organization Address City/State/[facility] Co de Phone Number [facility] [address] [place] [address] from Last 3 Months or Most Recently Relevant to Health Maintenance Insurance [facility] Advance Directives * Full Code (Latest [...] 11:00 AM 03/17/2019 7:31 PM Care Teams Risk Assessment Analyst Relationship Specialty Start Date End Date Mario Logan MD [address] [place] [address] PCP - General 05/24/19
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
[2024-07-13 15:45] LABS: Add Urine Microscopic? NO; Appearance Urine Clear (Clear); Bilirubin Urine Negative (Negative); Blood Urine Trace-intact (Negative); Color Urine Light Yellow (Yellow); Glucose Urine UA Negative (Negative); Ketones Urine Negative (Negative); Leukocyte Esterase Ur Negative LEU/UL (Negative); Nitrate Urine Negative (Negative); Protein Urine Negative (Negative); Specific Grav Ur 1.025 (1.010-1.020); Urobilinogen Urine 0.2 mg/dL (0.2-1.0)
[2024-07-13 15:50] LABS: Pregnancy On Board Control Positive; Urine Pregnancy Test Negative
[2024-07-13 15:53] LABS: Influenza A QL RT-PCR Negative (Negative); Influenza B QL RT-PCR Negative (Negative); RSV RNA, RT-PCR Negative (Negative); SARS-CoV-2 RNA PCR Negative (Negative)
[2024-07-13 16:05] LABS: Alanine Aminotransferase 15 U/L (6-35); Alkaline Phosphatase 57 U/L (38-126); Anion Gap 3 mmol/L (4-12); Aspartate Amino Transferase 23 U/L (14-36); Bilirubin,Total 0.4 mg/dL (0.2-1.3); Blood Urea Nitrogen 13 mg/dL (7-17); Calcium 9.1 mg/dL (8.4-10.2); Carbon Dioxide 29 mmol/L (22-30); Chloride 107 mmol/L (98-107); Estimated CRCL calculation 56 ml/min; Estimated Glomerular Filt Rate > 60; Glucose 101 mg/dL (65-110); Osmolality Calculated 288 mOsm/kg (285-295); Potassium 4.5 mmol/L (3.4-5.0); Sodium 139 mmol/L (137-145); Total Protein 6.6 g/dL (6.3-8.2)
[2024-07-13 16:22] LABS: Amphetamine Screen Urine Positive (Negative); Barbiturate Screen Urine Negative (Negative); Benzodiazepines Screen Urine Negative (Negative); Cannabinoid Screen Urine Negative (Negative); Cocaine Screen Urine Negative (Negative); Methadone Screen Urine Negative (Negative); Phencyclidine Screen Urine Negative (Negative)
[2024-07-13 16:23] LABS: Opiate Screen Urine Positive (Negative)
[2024-07-13 18:35] VITALS: BP 95/56; PULSE 70; RESP 14; TEMP 36.6; O2SAT 97
--- NOTE | 2024-07-13 19:04 | PC.NURSE ---
patient report received from YSABEL Cohn. patient resting on bed in ED 5 without distress, sitter at bedside for patient safety. [facility] sales representative meats onsite, currently faxing patient magnesium level to [place] for patient admission.
--- NOTE | 2024-07-13 20:55 | PC.NURSE ---
patient son at bedside at this time. RN monitoring. patient awaiting transfer to [facility] for inpatient mental health to room 414.
== END 2024-07-13 21:31 ==
PROVIDERS: Emergency Provider Internal Medicine Critical Care Medicine; PCP Internal Medicine
DX: R45.851 Suicidal ideations (principal); F32.A Depression, unspecified; F15.10 Other stimulant abuse, uncomplicated; F11.10 Opioid abuse, uncomplicated; F17.210 Nicotine dependence, cigarettes, uncomplicated; Z11.52 Encounter for screening for COVID-19
CPT/HCPCS: 36415; 80053; 80143; 80179; 80307; 81003; 81025; 82077; 83735; 84443; 85025; 87637; 93005; 99285; A9270

== ENCOUNTER 2024-07-22 23:46 | Emergency (ER) | payer OTHER, SELFPAY ==
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
--- NOTE | ~2024-07-22 | CT_ITS ---
EXAMINATION: CT diagnostic chest wo con DATE: 07/23/2024 01:00 INDICATION: Left rib pain in limb swelling. TECHNIQUE: Computed tomography (CT) of the chest was performed without intravenous contrast. The dose -length product was 132.19 mGy-cm. Automated exposure control and iterative reconstruction technique were employed. COMPARISON: CT dated 09/28/2023 FINDINGS: No thoracic lymphadenopathy. There are cholecystectomy clips in the upper abdomen. No signi ficant vascular abnormality. Heart size normal. No significant pleural or pericardial effusion. No fo lorenza airspace consolidation. There is a left lower lobe nodule measuring 7 mm which is partially calci fied, most likely calcified granuloma without significant change compared with 09/28/2023. There is a mildly displaced left anterior sixth rib fracture. No pneumothorax identified. No significant effusi on. Mild thoracic spondylosis. IMPRESSION: 1. Acute mildly displaced left anterior sixth rib fracture. 2: Stable partially calcified 7 mm left upper lobe nodule, most likely benign. Consider follow-up low dose CT chest in 12 months. Reviewed, dictated and finalized at location A.
[2024-07-22 23:46] VITALS: BP 128/85; PULSE 82; RESP 18; TEMP 36.4; O2SAT 97
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
--- NOTE | 2024-07-22 23:50 | PC.NURSE ---
[facility] POLICE NOTIFIED. SENDING AN OFFICER TO FILE A REPORT
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
--- NOTE | 2024-07-23 00:31 | PC.NURSE ---
PATIENT BEING TRANSPORTED TO RADIOLOGY VIA WHEEL CHAIR
--- NOTE | 2024-07-23 00:50 | PC.NURSE ---
RETURNED FROM RADIOLOGY. COVERED UP WITH BLANKETS. CALL LIGHT IN REACH. LIGHTS TURNED OFF FOR COMFORT.
--- NOTE | 2024-07-23 01:06 | PC.NURSE ---
[facility] OFFICERS HERE TO SEE PATIENT
--- NOTE | 2024-07-23 01:32 | PC.NURSE ---
[facility] OFFICERS HAVE LEFT
--- NOTE | 2024-07-23 01:53 | PC.NURSE ---
DR SAVAGE NOTIFIED THAT RADIOLOGY REPORTS HAVE RESULTED
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
--- NOTE | 2024-07-23 02:37 | PC.NURSE ---
PT IV LINE TO LEFT AC REMOVED. CATHETER INTACT. DISPOSED OF INTO SHARPS CONTAINER.
[2024-07-23 02:38] VITALS: BP 120/78; PULSE 76; RESP 18; O2SAT 95
== END 2024-07-23 02:38 | disposition home or self-care (01) ==
PROVIDERS: Emergency Provider Emergency Medicine
DX: S40.812A Abrasion of left upper arm, initial encounter (principal); S40.811A Abrasion of right upper arm, initial encounter; S09.90XA Unspecified injury of head, initial encounter; S29.9XXA Unspecified injury of thorax, initial encounter; F17.210 Nicotine dependence, cigarettes, uncomplicated; Y04.2XXA Assault by strike against or bumped into by another person, initial encounter
CPT/HCPCS: 70450; 71250; 72125; 73110; 99284

== ENCOUNTER 2024-07-25 19:54 | Emergency (ER) | payer OTHER, SELFPAY ==
--- NOTE | ~2024-07-25 | XR_ITS ---
EXAMINATION: XR chest 2V Exam Date/Time: 07/25/2024 21:10 CDT HISTORY: left 6th rib fracture recently chest pain Comparison: 05/22/2024. RESULT: Lines, tubes, and devices: Cholecystectomy clips. Lungs and pleura: Clear. Cardiomediastinal silhouette: Stable. Other: No acute osseous or upper abdominal finding. IMPRESSION: No acute cardiopulmonary process. Reviewed, dictated and finalized at location K.
[2024-07-25 19:55] VITALS: BP 135/85; PULSE 103; RESP 18; TEMP 37.4; O2SAT 99
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
--- NOTE | 2024-07-25 20:19 | ECG_ITS ---
Test Date: 2024-07-25 20:37:27 Measurements Intervals [place] Rate: 91 P: 73 MS: 126 QRS: 57 QRSD: 93 T: 60 QT: 342 QTc: 422 Interpretive Statements SINUS RHYTHM POSSIBLE LEFT ATRIAL ENLARGEMENT MINIMAL Q WAVES- ANTEROLAT/INF LEADS BASELINE ARTIFACT- I, II, III, AVR, AVL, AVF BORDERLINE ECG Compared to ECG 07/13/2024 15:12:20 NO SIGNIFICANT CHANGE Electronically Signed On 07-25-2024 20:48:09 CDT by Sonny Velasco D.O.
[2024-07-25] MEDS: KETOROLAC 30 MG/ML VIAL (*BKC) IM (20:49)
--- NOTE | 2024-07-25 20:53 | PC.NURSE ---
patient ambulatory to bathroom without difficulty and medicated per order, see MAR. call light within reach.
[2024-07-25 20:57] LABS: Hematocrit 35.1 % (35.0-49.0); Hemoglobin 11.3 g/dL (12.0-15.0); Mean Corpuscular HGB Conc 32.2 g/dL (32-36); Mean Corpuscular Hemoglobin 30.2 pg (27.0-31.0); Mean Corpuscular Volume 93.9 fL (78.0-102.0); Mean Platelet Volume 9.3 fl (9.2-11.8); Platelet Count Result 322 K/mm3 (150-420); Red Blood Count 3.74 M/mm3 (4.20-5.40); Red Cell Distribution Width 12.3 % (11.6-14.4); White Blood Count 7.1 K/mm3 (4.8-10.8)
[2024-07-25 21:11] LABS: Pregnancy On Board Control Positive; Urine Pregnancy Test Negative
[2024-07-25 21:11] LABS: Alanine Aminotransferase 20 U/L (6-35); Albumin Level 3.7 g/dL (3.5-5.1); Alkaline Phosphatase 57 U/L (38-126); Anion Gap 1 mmol/L (4-12); Aspartate Amino Transferase 20 U/L (14-36); Bilirubin,Total 0.4 mg/dL (0.2-1.3); Blood Urea Nitrogen 9 mg/dL (7-17); Calcium 8.7 mg/dL (8.4-10.2); Carbon Dioxide 29 mmol/L (22-30); Chloride 106 mmol/L (98-107); Estimated CRCL calculation 56 ml/min; Estimated Glomerular Filt Rate > 60; Glucose 99 mg/dL (65-110); Osmolality Calculated 280 mOsm/kg (285-295); Potassium 3.4 mmol/L (3.4-5.0); Sodium 136 mmol/L (137-145); Total Protein 6.5 g/dL (6.3-8.2)
--- NOTE | 2024-07-25 21:18 | PC.NURSE ---
patient to CT scan via wheelchair per nuclear radiation engineer.
[2024-07-25 21:23] LABS: Troponin I < 0.012 ng/mL (0.000-0.034)
[2024-07-25 22:02] VITALS: BP 132/91; PULSE 80; RESP 17; TEMP 37.1; O2SAT 100
--- NOTE | 2024-07-25 22:05 | PC.NURSE ---
GUILLE Cardenas at bedside for update and VS.
--- NOTE | 2024-07-25 22:17 | PC.NURSE ---
patient mother phoned at this time, per patient okay to speak with her mother regarding patient care. patient mother states for patient to call her when discharged she will come get patient.
--- NOTE | 2024-07-25 22:38 | PC.NURSE ---
patient checked, update provided. reports pain is improved. patient updated per her mother to please phone her at time of discharge and her mother stated she will come get her.
--- NOTE | 2024-07-25 22:43 | PC.NURSE ---
ERP at patient bedside for update of results and plan of care.
== END 2024-07-25 22:52 | disposition home or self-care (01) ==
PROVIDERS: Emergency Provider Emergency Medicine
DX: S22.32XA Fracture of one rib, left side, initial encounter for closed fracture (principal); T74.11XA Adult physical abuse, confirmed, initial encounter; Y04.2XXA Assault by strike against or bumped into by another person, initial encounter; Y07.010 Husband, current, perpetrator of maltreatment and neglect; F15.90 Other stimulant use, unspecified, uncomplicated; F17.210 Nicotine dependence, cigarettes, uncomplicated
CPT/HCPCS: 36415; 71046; 80053; 81025; 83735; 84484; 85027; 93005; 96372; 99284; J1885

== ENCOUNTER 2024-08-07 03:22 | Emergency (ER) | payer OTHER, SELFPAY ==
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
== END 2024-08-07 03:51 | disposition home or self-care (01) ==
LOC: CHSED 03:35
PROVIDERS: Emergency Provider Emergency Medicine; PCP Family Medicine
DX: F43.9 Reaction to severe stress, unspecified (principal); F17.210 Nicotine dependence, cigarettes, uncomplicated
CPT/HCPCS: 99283

== ENCOUNTER 2024-09-06 23:00 | Emergency (ER) | payer OTHER, SELFPAY ==
--- OUTSIDE RECORDS SUMMARY | 2024-09-06 23:03 | XMS_ITS | Encounter Summary ---
Author Organization [facility] Address [address] [place] [id number] Care Team Providers Care Cone Examiner Name Role Phone None, Provider Primary Care Provider Francisco Javier Santana MD Primary Care Provider [phone] Encounter Details Date Type Department Care Team (Late st Contact Info) Description 07/31/2018 Abstract SFL CONVERSION [address] [place] [address] , Generic Conversion, Social History Tobacco Use [...] on filedocumented in this encounter Care Teams Cone Examiner Relationship Specialty Start Date End Date None, Provider, PCP - General UNKNOWN PHYSICIAN SPECIALTY 07/13/23 06/04/24 Francisco Javier Ivan MD [address] [place] [id number] PCP - General FAMILY PRACTICE 06/05/24 documented as of this encounter
--- OUTSIDE RECORDS SUMMARY | 2024-09-06 23:03 | XMS_ITS | Clinical Summary ---
Author Organization [facility] Address [address] [place] [address] Care Team Providers Care Commercial Lawn Specialist Name Role Phone Francisco Javier Ivan MD Primary Care Provider [phone] Allergies Active Allergy Reactions Criticality Noted Date [...] 0.6 oz pur e alcohol) [facility] Utilities Answer Date Recorded In the past 12 months has e [employer] gas, oil, or water [employer] threatened to shut off services in your [...] P M CDT Height 154.9 cm (5' 1) 06/05/2024 1:08 PM CDT Body Mass Index [...] VARGHESE NON-REACT VARGHESE 10/13/2023 1:41 PM CDT [facility] Comment:HBsAg NOT DETECTED. HEP B CORE IGM NON-REACT VARGHESE NON-REACT VARGHESE 10/13/2023 1:41 PM CDT [facility] Comment: IgM ANTI HBc NOT DETECTED. DOES NOT EXCLUDE THE POSSIBILITY OF EXPOSURE TO OR INFECTION WITH HBV. NO RETEST REQUIRED. HIGH DOSES OF BIOTIN MAY INTERFERE WITH THIS TEST RESULT. CORRELATION TO CLINICAL HISTORY AND PRESENTATION RECOMMENDED. HAV IGM NON-REACT VARGHESE NON-REACT VARGHESE 10/13/2023 1:41 PM CDT [facility] Comment: IgM ANTI HAV NOT DETECTED. DOES NOT EXCLUDE THE POSSIBILITY OF EXPOSURE TO OR INFECTION WITH HAV. LEVELS OF IgM ANTI HAV MAY BE BELOW THE CUTOFF IN EARLY INFECTION. HEPATITIS C AB NON-REACT VARGHESE NON-REACT VARGHESE 10/13/2023 1:42 PM CDT [facility] Comment: ANTIBODIES TO HCV NOT DETECTED. DOES NOT EXCLUDE THE POSSIBILITY OF EXPOSURE TO HCV. 

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
[2024-09-06 23:27] VITALS: BP 123/91; PULSE 87; RESP 15; TEMP 36.6; O2SAT 100
[2024-09-06] MEDS: OLANZapine 5 MG, WATER, STERILE FOR INJECTION 2.1 ML IM (23:41)
[2024-09-06 23:42] VITALS: BP 125/90; PULSE 85; RESP 18; O2SAT 99
[2024-09-06 23:57] VITALS: BP 97/69; PULSE 69; RESP 18; O2SAT 97
[2024-09-07 00:12] VITALS: BP 96/68; PULSE 68; RESP 16; O2SAT 97
--- OUTSIDE RECORDS SUMMARY | 2024-09-07 00:14 | XMS_ITS | Encounter Summary ---
Author Organization [facility] Address [address] [place] [address] Care Team Providers Care Laundry Route Driver Name Role Phone None, Provider Primary Care Provider Francisco Javier Santana MD Primary Care Provider [phone] Encounter Details Date Type Department Care Team (Late st Contact Info) Description 07/31/2018 Abstract SFL CONVERSION [address] [place] [address] , Generic Conversion, Social History Tobacco Use [...] on filedocumented in this encounter Care Teams Laundry Route Driver Relationship Specialty Start Date End Date None, Provider, PCP - General UNKNOWN PHYSICIAN SPECIALTY 07/13/23 06/04/24 Francisco Javier Ivan MD [address] [place] [id number] PCP - General FAMILY PRACTICE 06/05/24 documented as of this encounter
--- OUTSIDE RECORDS SUMMARY | 2024-09-07 00:14 | XMS_ITS | Clinical Summary ---
Author Organization [facility] Address [address] [place] [address] Care Team Providers Care Field Mechanic/Site Lead Name Role Phone Francisco Javier Ivan MD Primary Care Provider [phone] Allergies Active Allergy Reactions Criticality Noted Date [...] drink = 0.6 oz pur e alcohol) [facility] Utilities Answer Date Recorded In the past 12 months has e [employer] gas, oil, or water [employer] threatened to shut off services in your [...] any time in the past 12 m [facility], were you homeless or living [...] VARGHESE NON-REACT VARGHESE 10/13/2023 1:41 PM CDT [facility] Comment:HBsAg NOT DETECTED. HEP B CORE IGM NON-REACT VARGHESE NON-REACT VARGHESE 10/13/2023 1:41 PM CDT [facility] Comment: IgM ANTI HBc NOT DETECTED. DOES NOT EXCLUDE THE POSSIBILITY OF EXPOSURE TO OR INFECTION WITH HBV. NO RETEST REQUIRED. HIGH DOSES OF BIOTIN MAY INTERFERE WITH THIS TEST RESULT. CORRELATION TO CLINICAL HISTORY AND PRESENTATION RECOMMENDED. HAV IGM NON-REACT VARGHESE NON-REACT VARGHESE 10/13/2023 1:41 PM CDT [facility] Comment: IgM ANTI HAV NOT DETECTED. DOES NOT EXCLUDE THE POSSIBILITY OF EXPOSURE TO OR INFECTION WITH HAV. LEVELS OF IgM ANTI HAV MAY BE BELOW THE CUTOFF IN EARLY INFECTION. HEPATITIS C AB NON-REACT VARGHESE NON-REACT VARGHESE 10/13/2023 1:42 PM CDT [facility] Comment: ANTIBODIES TO HCV NOT DETECTED. DOES NOT EXCLUDE THE POSSIBILITY OF EXPOSURE TO HCV. 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
[2024-09-07 01:25] VITALS: BP 90/67; PULSE 60; RESP 18; O2SAT 98
[2024-09-07 02:27] VITALS: BP 90/62; PULSE 62; RESP 16; O2SAT 99
[2024-09-07 05:33] VITALS: BP 97/75; PULSE 69; RESP 15; TEMP 36.4; O2SAT 99
== END 2024-09-07 05:42 | disposition home or self-care (01) ==
LOC: CHSED 09-07 00:13
PROVIDERS: Emergency Provider Emergency Medicine; PCP Internal Medicine
DX: F43.0 Acute stress reaction (principal); F23 Brief psychotic disorder; F17.210 Nicotine dependence, cigarettes, uncomplicated
CPT/HCPCS: 96372; 99283; J2359

== ENCOUNTER 2024-09-13 02:48 | Emergency (ER) | payer OTHER, SELFPAY ==
--- OUTSIDE RECORDS SUMMARY | 2024-09-13 02:53 | XMS_ITS | Encounter Summary ---
Author Organization [facility] Address [address] [place] [address] Care Team Providers Care Ore Charger Name Role Phone None, Provider Primary Care Provider Francisco Javier Santana MD Primary Care Provider [phone] Encounter Details Date Type Department Care Team (Late st Contact Info) Description 07/31/2018 Abstract SFL CONVERSION [address] [address] , Generic Conversion, Social History Tobacco Use [...] on filedocumented in this encounter Care Teams Ore Charger Relationship Specialty Start Date End Date None, Provider, PCP - General UNKNOWN PHYSICIAN SPECIALTY 07/13/23 06/04/24 Francisco Javier Ivan MD [address] [place] [id number] PCP - General FAMILY PRACTICE 06/05/24 documented as of this encounter
--- OUTSIDE RECORDS SUMMARY | 2024-09-13 02:53 | XMS_ITS | Clinical Summary ---
Author Organization [facility] Address [address] [place] [address] Care Team Providers Care Field Representative Name Role Phone Francisco Javier Ivan MD Primary Care Provider [phone] Allergies Active Allergy Reactions Criticality Noted Date [...] drink = 0.6 oz pur e alcohol) [facility] Utilities Answer Date Recorded In the past 12 months has e [employer] gas, oil, or water [place] threatened to shut off services in your [...] any time in the past 12 m [facility], were you homeless or living [...] (1 of 2 - PCV) 2001 02/24/2016 HPV Vaccines (1 - 3-dose SCDM series) 2009 Hepatitis B Vaccines (3 of 3 - 19+ 3-dose series) 06/10/2019 01/27/2019, 12/09/2018 Mammogram Screening 2022 COVID-19 Vaccine (2023- season) 2023 Cervical Cancer Screening Pap Smear (Age 30 to 64) Every 3 Years 04/23/2025 04/23/2022 Cervical Cancer Screening Pap with HPV Testing (Age 30 to 64) Every 5 Years 04/24/2027 04/23/2022 Cervical Cancer Screening with HPV 04/24/2027 DTaP, Tdap and Td Vaccines (7 - Td or Tdap) 04/21/2029 04/21/2019, 12/07/2016, 02/24/2016, Additional history exists Hepatitis C Completed 10/13/2023, 11/11/2018 Meningococcal B Vaccine Aged Out No l [...] VARGHESE NON-REACT VARGHESE 10/13/2023 1:41 PM CDT [facility] Comment:HBsAg NOT DETECTED. HEP B CORE IGM NON-REACT VARGHESE NON-REACT VARGHESE 10/13/2023 1:[address] [facility] Comment: IgM ANTI HBc NOT DETECTED. DOES NOT EXCLUDE THE POSSIBILITY OF EXPOSURE TO OR INFECTION WITH HBV. NO RETEST REQUIRED. HIGH DOSES OF BIOTIN MAY INTERFERE WITH THIS TEST RESULT. CORRELATION TO CLINICAL HISTORY AND PRESENTATION RECOMMENDED. HAV IGM NON-REACT VARGHESE NON-REACT VARGHESE 10/13/2023 1:[address] [facility] Comment: IgM ANTI HAV NOT DETECTED. DOES NOT EXCLUDE THE POSSIBILITY OF EXPOSURE TO OR INFECTION WITH HAV. LEVELS OF IgM ANTI HAV MAY BE BELOW THE CUTOFF IN EARLY INFECTION. HEPATITIS C AB NON-REACT VARGHESE NON-REACT VARGHESE 10/13/2023 1:[address] [facility] Comment: ANTIBODIES TO HCV NOT DETECTED. DOES NOT EXCLUDE THE POSSIBILITY OF EXPOSURE TO HCV. 10/13/2023 3:24 AM CDT Tenisha Cheema MD LABORATORY Final Result 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
[2024-09-13 02:56] VITALS: BP 124/90; PULSE 94; RESP 18; TEMP 37.3; O2SAT 100
--- NOTE | 2024-09-13 03:03 | PC.NURSE ---
pt ambulatory to bathroom with steady gait at this time. urine specimen obtained and sent to lab per optical coating technician.
[2024-09-13 03:31] LABS: Hematocrit 38.1 % (35.0-49.0); Hemoglobin 12.7 g/dL (12.0-15.0); Immature Granulocyte Percent A 0.1 % (0.0-0.0); Lymphocytes Absolute Auto 2.73 K/mm3 (1.10-4.50); Mean Corpuscular HGB Conc 33.3 g/dL (32-36); Mean Corpuscular Hemoglobin 30.4 pg (27.0-31.0); Mean Corpuscular Volume 91.1 fL (78.0-102.0); Nucleated Red Blood Cells Absolute Auto 0.00 K/mm3 (0.00-0.00); Nucleated Red Blood Cells Perc 0.0 % (0-0.0); Platelet Count Result 333 K/mm3 (150-420); Red Blood Count 4.18 M/mm3 (4.20-5.40); White Blood Count 7.2 K/mm3 (4.8-10.8)
--- NOTE | 2024-09-13 03:34 | PC.NURSE ---
ERP DR SAVAGE AT PT BEDSIDE AT THIS TIME. UPDATE PROVIDED.
[2024-09-13 03:44] LABS: Anion Gap 7 mmol/L (4-12); Blood Urea Nitrogen 21 mg/dL (7-17); Calcium 8.9 mg/dL (8.4-10.2); Carbon Dioxide 26 mmol/L (22-30); Chloride 107 mmol/L (98-107); Estimated CRCL calculation 41 ml/min; Estimated Glomerular Filt Rate > 60; Glucose 93 mg/dL (65-110); Osmolality Calculated 293 mOsm/kg (285-295); Potassium 4.1 mmol/L (3.4-5.0); Sodium 140 mmol/L (137-145)
[2024-09-13 03:45] LABS: Alanine Aminotransferase 16 U/L (6-35); Albumin Level 4.3 g/dL (3.5-5.1); Alkaline Phosphatase 72 U/L (38-126); Aspartate Amino Transferase 24 U/L (14-36); Bilirubin,Total 0.8 mg/dL (0.2-1.3); Total Protein 7.1 g/dL (6.3-8.2)
[2024-09-13 03:46] LABS: Cannabinoid Screen Urine Negative (Negative)
--- NOTE | 2024-09-13 04:38 | ED_ITS ---
HPI - General Adult General Chief complaint: Unspecified Stated complaint: unspecified Source: patient Mode of arrival: EMS Limitations: no limitations and clinical condition History of Present Illness HPI narrative: patient is a 44-year-old female known to the ER for recurrent visits of acute psychosis secondary to stress in her life with her ex-. She is here with similar event feeling that he has poison her this evening. No suicide or homicide ideation. She feels that he gave her methanol or acetone in her food. patient appears to have a fixed delusion this evening. She took meth today. patient called the police herself and they came and felt that she should be seen by EMS and the emergency room. Onset (ago): day(s) ( One) Location: mouth ( oral intake of possibly acetone or methanol) Radiation: other ( No pain) Severity: moderate Severity scale (1-10): 3 Quality: other ( no pain) Pain Consistency: other ( no pain) Relieving factors: none Associated symptoms: denies other symptoms Treatments prior to arrival: none Related Data Home Medications ?Medication ?Instructions ?Recorded ?Confirmed ?Last Taken ?Type aripiprazole 5 mg tablet (Abilify) 5 mg PO DAILY 05/17/24 05/17/24 Unknown History lorazepam 0.5 mg tablet (Ativan) 0.5 mg PO Q6H PRN anxiety 05/17/24 05/17/24 Unknown History trazodone 50 mg tablet mg 05/17/24 Unknown History Allergies Allergy/AdvReac Type Severity Reaction Status Date / Time Penicillins Allergy Severe Difficulty Verified 09/13/24 03:03 Swallowing codeine AdvReac Swelling Verified 09/13/24 03:03 Review of Systems 2 Review of Systems: All systems reviewed & are unremarkable except as noted in HPI and below Constitutional: Constitutional: Reports no additional constitutional complaints Eyes: Eyes: Reports no additional eye complaints ENT: Reports system reviewed and no additional complaints, except as documented Cardiovascular: Cardiovascular: Reports no additional cardiovascular complaints Respiratory: Respiratory: Reports no additional respiratory complaints Gastrointestinal: Gastrointestinal: Reports no additional gastrointestinal complaints Genitourinary: Genitourinary: Reports no additional female genitourinary complaints Musculoskeletal: Musculoskeletal: Reports no additional musculoskeletal complaints Integumentary/Breasts: Skin/Breast: Reports system reviewed and no additional complaints, except as docu Neurologic: Reports system reviewed and no additional complaints, except as documented Psychiatric: Psychiatric: Reports no additional psychiatric complaints Endocrine: Endocrine: Reports no additional endocrine complaints Hematologic/Lymphatic: Hematologic/Lymphatic: Reports no additional hematologic/lymphatic complaints Allergic/Immunologic: Allergic/Immunologic: Reports no additional allergic/immunologic complaints [facility] Past Medical History Medical History Drug abuse Tooth decay Surgical History Surgical History History of x3 Family History Family History Father No problems noted. Father Lung cancer Mother Heart disease Social History Social History Years smoked: 20 Smoking status: Current every day smoker Tobacco type: cigarettes Second hand tobacco smoke exposure: Yes Alcohol intake: former Substance use: former Substance use type: heroin and methamphetamine Gender identity (if verbalized by the patient): Female Spiritual care concerns: No Exam 2 Const: General: cooperative, healthy appearing and comfortable HENMT: Head: normal to inspection, No palpable skull fracture present and normocephalic Eyes: General: appearance normal, both eyes and all related structures V isual Gutiérrez: normal visual gutiérrez by confrontation Alignment and Position: a lignment normal Neck: Neck: normal visual inspection, full ROM and no lymphadenopathy Chest: Chest palpation & inspection: normal inspection of the chest, normal palpation of entire chest wall and no localized rib tenderness Resp: Effort & Inspection: normal respiratory effort, able to speak in complete sentences and normal respiratory pattern Cardio: Jugular venous distension: no JVD Palpation: normal PMI Rate: r egular rate Rhythm: regular rhythm Heart sounds: S1 normal heart sound present and S2 normal heart sound present GI: Inspection: normal to inspection, no abdominal wall ecchymosis and no edema Back/Spine/Pelvis: Back: no CVA tenderness Skin: General skin exam: normal color, no rashes or lesions noted and elasticity normal Neuro: General: oriented to person, oriented to place, oriented to time, patient oriented x3 and gait normal Extrem: General: normal to inspection, full ROM and capillary refill normal Psych: Appearance: grossly normal and well kempt Mental Status: mental status grossly normal Speech and movement: Normal speech and movement present Other: Patient presents calm and relaxed but has a fixed delusion of being poisoned this evening. No suicide or homicide ideation. No hallucinations. Course Vital Signs Vital signs: Vital Signs Temperature 37.3 C 09/13/24 02:56 Pulse Rate 94 09/13/24 02:56 Respiratory Rate 18 09/13/24 02:56 Blood Pressure 124/90 09/13/24 02:56 Pulse Oximetry 100 09/13/24 02:56 Oxygen Delivery Room Air 09/13/24 02:56 Temperature 37.3 C 09/13/24 02:56 Pulse Rate 94 09/13/24 02:56 Respiratory Rate 18 09/13/24 02:56 Blood Pressure 124/90 09/13/24 02:56 Pulse Oximetry 100 09/13/24 02:56 Oxygen Delivery Room Air 09/13/24 02:56 Medical Decision Making MDM Narrative Medical decision making narrative: Patient is a 44-year-old female with recurrent psychosis and emotional stress secondary to meth use and her ex-. We will monitor the patient in the emergency room. We will give her food. No medications required during her stay. It was an uneventful stay. No suicide or homicide ideation. She is not a threat to herself or community. She walked home to her mother's in this neighborhood. She is working on getting into a rehab for meth. Vital Signs Vital Signs: Vital Signs Temperature 37.3 C 09/13/24 02:56 Pulse Rate 94 09/13/24 02:56 Respiratory Rate 18 09/13/24 02:56 Blood Pressure 124/90 09/13/24 02:56 Pulse Oximetry 100 09/13/24 02:56 Oxygen Delivery Room Air 09/13/24 02:56 Temperature 37.3 C 09/13/24 02:56 Pulse Rate 94 09/13/24 02:56 Respiratory Rate 18 09/13/24 02:56 Blood Pressure 124/90 09/13/24 02:56 Pulse Oximetry 100 09/13/24 02:56 Oxygen Delivery Room Air 09/13/24 02:56 Lab Data Lab results reviewed: Yes I reviewed the patient's lab results. 09/13/24 03:27 09/13/24 03:27 Labs: Lab Results 09/13/24 09/13/24 09/13/24 Range/Units 03:13 03:27 03:37 WBC 7.2 (4.8-10.8) K/mm3 RBC 4.18 L (4.20-5.40) M/mm3 Hgb 12.7 (12.0-15.0) g/dL Hct 38.1 (35.0-49.0) % MCV 91.1 (78.0-102.0) fL MCH 30.4 (27.0-31.0) pg MCHC 33.3 (32-36) g/dL RDW 12.5 (11.6-14.4) % Plt Count 333 (150-420) K/mm3 MPV 9.3 (9.2-11.8) fl Immature Gran % (Auto) 0.1 H (0.0-0.0) % Neut % (Auto) 50.4 (50.0-70.0) % Lymph % (Auto) 38.1 (18.0-42.0) % [place] % (Auto) 9.2 (2.0-11.0) % Eos % (Auto) 1.5 (1.0-6.0) % Baso % (Auto) 0.7 (0.0-1.0) % Lymph # (Auto) 2.73 (1.10-4.50) K/mm3 [place] # (Auto) 0.66 (0.10-0.90) K/mm3 Eos # (Auto) 0.11 (0.02-0.50) K/mm3 Baso # (Auto) 0.05 (0.00-0.10) K/mm3 Abs Immat Gran (auto) 0.01 H (0.00-0.00) K/mm3 Absolute Neuts (auto) 3.61 (1.70-7.20) K/mm3 Absolute Nucleated RBC 0.00 (0.00-0.00) K/mm3 Nucleated RBC % 0.0 (0-0.0) % Sodium 140 (137-145) mmol/L Potassium 4.1 (3.4-5.0) mmol/L Chloride 107 (98-107) mmol/L Carbon Dioxide 26 (22-30) mmol/L Anion Gap 7 (4-12) mmol/L BUN 21 H D (7-17) mg/dL Creatinine 0.96 (0.7-1.0) mg/dL Estim Creat Clear Calc 41 ml/min Estimated GFR > 60 (59 - ) Glucose 93 (65-110) mg/dL Calculated Osmolality 293 (285-295) mOsm/kg Calcium 8.9 (8.4-10.2) mg/dL Total Bilirubin 0.8 (0.2-1.3) mg/dL AST 24 (14-36) U/L ALT 16 (6-35) U/L Alkaline Phosphatase 72 (38-126) U/L Total Protein 7.1 (6.3-8.2) g/dL Albumin 4.3 (3.5-5.1) g/dL Urine Opiates Screen Negative (Negative) Urine Methadone Screen Negative (Negative) Ur Barbiturates Screen Negative (Negative) Ur Phencyclidine Scrn Negative (Negative) Ur Amphetamine Screen Positive A (Negative) U Benzodiazepines Scrn Negative (Negative) Urine Cocaine Screen Negative (Negative) U Cannabinoids Screen Negative (Negative) Ethyl Alcohol < 10 (<10) mg/dL Methyl Alcohol Level Pending Acetone Level Negative (Negative) Discharge Plan Discharge Clinical Impression: 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 Patient Disposition: Home Condition: Stable Instructions: Brief Psychotic Disorder (ED) Patient Language: Taiwanese Prescriptions: No Action trazodone 50 mg tablet aripiprazole [Abilify] 5 mg tablet 5 mg PO DAILY lorazepam [Ativan] 0.5 mg tablet 0.5 mg PO Q6H PRN (Reason: anxiety) azithromycin 500 mg tablet See Rx Instructions .ROUTE .COMPLEX Qty: 3 0RF Rx Instructions: For 500 mg dose pack: take 500 mg once daily for 3 days prednisone 20 mg tablet 20 mg PO DAILY 3 Days Qty: 3 0RF ondansetron 4 mg tablet,disintegrating 4 mg PO Q8H PRN (Reason: nausea and vomiting) Qty: 14 0RF levofloxacin 500 mg tablet 500 mg PO DAILY Qty: 6 0RF bupropion HCl [Wellbutrin SR] 150 mg tablet sustained-release 12 hr 150 mg PO QAM Qty: 30 0RF Follow-up/Referrals: Jonathon Schmidt MD [Primary Care Provider] - Time of Disposition: 05:21
--- NOTE | 2024-09-13 05:15 | PC.NURSE ---
DR. Tolentino AT PT BEDSIDE PROVIDING UPDATE, RESULTS AND PLAN.
[2024-09-13 05:25] VITALS: BP 120/68; PULSE 83; RESP 18; TEMP 36.7; O2SAT 98
== END 2024-09-13 05:30 | disposition home or self-care (01) ==
PROVIDERS: Emergency Provider Emergency Medicine; PCP Internal Medicine
DX: F23 Brief psychotic disorder (principal); F17.210 Nicotine dependence, cigarettes, uncomplicated
CPT/HCPCS: 36415; 80053; 80307; 82010; 82077; 84600; 85025; 99283

== ENCOUNTER 2024-09-17 12:15 | Emergency (ER) | payer OTHER, SELFPAY ==
--- OUTSIDE RECORDS SUMMARY | 2024-09-17 12:18 | XMS_ITS | Clinical Summary ---
Author Organization [facility] Address [address] [place] [id number] Care Team Providers Care Machining Technician Name Role Phone Francisco Javier Ivan MD Primary Care Provider [phone] Allergies Active Allergy Reactions Criticality Noted Date [...] drink = 0.6 oz pur e alcohol) [facility] Utilities Answer Date Recorded In the past 12 months has e [employer] gas, oil, or water [employer] threatened to shut off services in your [...] any time in the past 12 m [facility], were you homeless or living in a intermediate (including now)? Yes 10/13/2023 Comments No Sex [...] VARGHESE NON-REACT VARGHESE 10/13/2023 1:41 PM CDT [facility] Comment:HBsAg NOT DETECTED. HEP B CORE IGM NON-REACT VARGHESE NON-REACT VARGHESE 10/13/2023 1:41 PM CDT [facility] Comment: IgM ANTI HBc NOT DETECTED. DOES NOT EXCLUDE THE POSSIBILITY OF EXPOSURE TO OR INFECTION WITH HBV. NO RETEST REQUIRED. HIGH DOSES OF BIOTIN MAY INTERFERE WITH THIS TEST RESULT. CORRELATION TO CLINICAL HISTORY AND PRESENTATION RECOMMENDED. HAV IGM NON-REACT VARGHESE NON-REACT VARGHESE 10/13/2023 1:41 PM CDT [facility] Comment: IgM ANTI HAV NOT DETECTED. DOES NOT EXCLUDE THE POSSIBILITY OF EXPOSURE TO OR INFECTION WITH HAV. LEVELS OF IgM ANTI HAV MAY BE BELOW THE CUTOFF IN EARLY INFECTION. HEPATITIS C AB NON-REACT VARGHESE NON-REACT VARGHESE 10/13/2023 1:42 PM CDT [facility] Comment: ANTIBODIES TO HCV NOT DETECTED. DOES NOT EXCLUDE THE POSSIBILITY OF EXPOSURE TO HCV. 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
--- OUTSIDE RECORDS SUMMARY | 2024-09-17 12:18 | XMS_ITS | Encounter Summary ---
Author Organization [facility] Address [address] [place] [id number] Care Team Providers Care Operations Administrative Assistant Name Role Phone None, Provider Primary Care Provider Francisco Javier Santana MD Primary Care Provider [phone] Encounter Details Date Type Department Care Team (Late st Contact Info) Description 07/31/2018 Abstract [facility] CONVERSION [address] [place] [address] , Generic Conversion, Social History Tobacco Use [...] on filedocumented in this encounter Care Teams Operations Administrative Assistant Relationship Specialty Start Date End Date None, Provider, PCP - General UNKNOWN PHYSICIAN SPECIALTY 07/13/23 06/04/24 Francisco Javier Ivan MD [address] [place] [id number] PCP - General FAMILY PRACTICE 06/05/24 documented as of this encounter
--- NOTE | 2024-09-17 12:19 | ED.GENADULT ---
HPI - General Adult General Chief complaint: Psychiatric Symptoms Stated complaint: requesting detox Time Seen by Provider: 09/17/24 12:18 Source: patient Mode of arrival: ambulatory Limitations: no limitations History of Present Illness HPI narrative: 44-year-old female, smoker with a history of amphetamine/ opiate abuse, psychosis with paranoid ideation presents to the ED for -- suicidal ideation. She feels suicidal every day but has not had a suicide attempt -- daily meth use wants to get into a drug rehab program. Patient is anxious and shaky. Onset (ago): month(s) Relieving factors: none Exacerbating factors: none Associated symptoms: denies other symptoms Treatments prior to arrival: none Related Data Home Medications ?Medication ?Instructions ?Recorded ?Confirmed ?Last Taken ?Type aripiprazole 5 mg tablet (Abilify) 5 mg PO DAILY 05/17/24 05/17/24 Unknown History lorazepam 0.5 mg tablet (Ativan) 0.5 mg PO Q6H PRN anxiety 05/17/24 05/17/24 Unknown History trazodone 50 mg tablet mg 05/17/24 Unknown History Allergies Allergy/AdvReac Type Severity Reaction Status Date / Time Penicillins Allergy Severe Difficulty Verified 09/17/24 12:28 Swallowing codeine AdvReac Swelling Verified 09/17/24 12:28 Review of Systems Review of Systems: All systems reviewed & are unremarkable except as noted in HPI and below Constitutional: Constitutional: Reports as per HPI and Reports no additional constitutional complaints Eyes: Eyes: Reports as per HPI and Reports no additional eye complaints ENT: Reports system reviewed and no additional complaints, except as documented and Reports as per HPI Cardiovascular: Cardiovascular: Reports as per HPI and Reports no additional cardiovascular complaints Respiratory: Respiratory: Reports as per HPI and Reports no additional respiratory complaints Gastrointestinal: Gastrointestinal: Reports as per HPI and Reports no additional gastrointestinal complaints Genitourinary: Genitourinary: Reports no additional female genitourinary complaints and Reports as per HPI Musculoskeletal: Musculoskeletal: Reports no additional musculoskeletal complaints and Reports as per HPI Integumentary/Breasts: Skin/Breast: Reports system reviewed and no additional complaints, except as docu and Reports as per HPI Comments: No self-induced lacerations Neurologic: Reports system reviewed and no additional complaints, except as documented and Reports as per HPI Psychiatric: Psychiatric: Reports no additional psychiatric complaints, Reports as per HPI, Reports depression and Reports suicidal ideation Endocrine: Endocrine: Reports no additional endocrine complaints and Reports as per HPI Hematologic/Lymphatic: Hematologic/Lymphatic: Reports no additional hematologic/lymphatic complaints and Reports as per HPI Allergic/Immunologic: Allergic/Immunologic: Reports no additional allergic/immunologic complaints and Reports as per HPI [facility] Past Medical History Medical History Drug abuse Tooth decay Surgical History Surgical History History of x3 Family History Family History Father No problems noted. Father Lung cancer Mother Heart disease Social History Social History Years smoked: 20 Smoking status: Current every day smoker Tobacco type: cigarettes Second hand tobacco smoke exposure: Yes Alcohol intake: former Substance use: former Substance use type: methamphetamine Gender identity (if verbalized by the patient): Female Spiritual care concerns: No Exam Narrative: vitals are stable Const: General: no acute distress Orientation/consciousness: patient oriented x3 HENMT: Head: normal to inspection Ears: external ears normal Face/Nose/Sinus: Normal external nose present Face and sinus: normal facial exam Mouth: Yes Normal oral and palatal mucosa present Throat: posterior oropharynx normal Eyes: Conjunctivae: conjunctivae normal Pupils: Equal, round and reactive pupils present EOM: EOMs intact bilaterally Direct Ophthalmoscopy: no photophobia Neck: Neck: normal visual inspection, no lymphadenopathy and no meningeal signs Chest: Chest palpation & inspection: normal inspection of the chest Resp: Effort & Inspection: normal respiratory effort Auscultation: clear to auscultation bilaterally Cardio: Rate: regular rate Rhythm: regular rhythm GI: GI Palp: Yes Soft to palpation Auscultation: normal bowel sounds Other: no tenderness/ rigidity /rebound. : General: Yes no CVA tenderness Back/Spine/Pelvis: Back: no CVA tenderness Skin: General skin exam: normal color Rashes: no rashes Wounds: no wounds Neuro: General: patient oriented x3, moves all extremities, no meningeal signs, no focal motor deficits and CN's II-XI intact bilaterally Cranial nerves: Yes Nystagmus not present Speech: normal speech Gait exam (Neuro): Normal gait present Extrem: General: normal to inspection and no clubbing, cyanosis or edema Psych: Mental Status: mental status grossly normal Affect: normal affect Attitude: cooperative Other: Patient states that she is depressed and suicidal. Patient does not have a definite plan. Course Course Emergency Course: Amphetamine/ opiate withdrawal depression with suicidal ideation-- patient is at moderate risk for suicide attempt. The patient does not need suicide precautions at this time. Will consult [address] counselor evaluation patient left AMA before I could talk to her Patient primarily came to the ED for placement for opiate and methamphetamine withdrawal. We told her that she could go directly to [facility] or some of the drug rehab facility on her own. The patient expressed that she does not have transportation. She wanted us to transport to the drug rehab facility. She then stated that she is suicidal and would like to be evaluated. The patient appears to be low risk for suicide attempt. Vital Signs Vital signs: Vital Signs Temperature 36.4 C L 09/17/24 12:20 Pulse Rate 84 09/17/24 12:20 Respiratory Rate 18 09/17/24 12:20 Blood Pressure 112/79 09/17/24 12:20 Pulse Oximetry 99 09/17/24 12:20 Oxygen Delivery Room Air 09/17/24 12:20 Temperature 36.4 C L 09/17/24 12:20 Pulse Rate 84 09/17/24 12:20 Respiratory Rate 18 09/17/24 12:20 Blood Pressure 112/79 09/17/24 12:20 Pulse Oximetry 99 09/17/24 12:20 Oxygen Delivery Room Air 09/17/24 12:20 Medical Decision Making [facility] Narrative Medical decision making narrative: amphetamine/opiate withdrawal depression with suicidal ideation Differential Diagnosis Differential Diagnosis: drug withdrawal Vital Signs Vital Signs: Vital Signs Temperature 36.4 C L 09/17/24 12:20 Pulse Rate 84 09/17/24 12:20 Respiratory Rate 18 09/17/24 12:20 Blood Pressure 112/79 09/17/24 12:20 Pulse Oximetry 99 09/17/24 12:20 Oxygen Delivery Room Air 09/17/24 12:20 Temperature 36.4 C L 09/17/24 12:20 Pulse Rate 84 09/17/24 12:20 Respiratory Rate 18 09/17/24 12:20 Blood Pressure 112/79 09/17/24 12:20 Pulse Oximetry 99 09/17/24 12:20 Oxygen Delivery Room Air 09/17/24 12:20 Lab Data 09/17/24 12:45 09/17/24 12:45 Labs: Lab Results 09/17/24 Range/Units 12:45 WBC 5.4 (4.8-10.8) K/mm3 RBC 4.09 L (4.20-5.40) M/mm3 Hgb 12.3 (12.0-15.0) g/dL Hct 38.2 (35.0-49.0) % MCV 93.4 (78.0-102.0) fL MCH 30.1 (27.0-31.0) pg MCHC 32.2 (32-36) g/dL RDW 12.4 (11.6-14.4) % Plt Count 329 (150-420) K/mm3 MPV 9.6 (9.2-11.8) fl Immature Gran % (Auto) 0.2 H (0.0-0.0) % Neut % (Auto) 62.7 (50.0-70.0) % Lymph % (Auto) 28.7 (18.0-42.0) % [place] % (Auto) 6.4 (2.0-11.0) % Eos % (Auto) 1.1 (1.0-6.0) % Baso % (Auto) 0.9 (0.0-1.0) % Lymph # (Auto) 1.56 (1.10-4.50) K/mm3 [place] # (Auto) 0.35 (0.10-0.90) K/mm3 Eos # (Auto) 0.06 (0.02-0.50) K/mm3 Baso # (Auto) 0.05 (0.00-0.10) K/mm3 Abs Immat Gran (auto) 0.01 H (0.00-0.00) K/mm3 Absolute Neuts (auto) 3.41 (1.70-7.20) K/mm3 Absolute Nucleated RBC 0.00 (0.00-0.00) K/mm3 Nucleated RBC % 0.0 (0-0.0) % Sodium 138 (137-145) mmol/L Potassium 4.3 (3.4-5.0) mmol/L Chloride 108 H (98-107) mmol/L Carbon Dioxide 29 (22-30) mmol/L Anion Gap 1 L (4-12) mmol/L BUN 17 (7-17) mg/dL Creatinine 0.87 (0.7-1.0) mg/dL Estim Creat Clear Calc 56 ml/min Estimated GFR > 60 (59 - ) Glucose 75 (65-110) mg/dL Calculated Osmolality 286 (285-295) mOsm/kg Calcium 8.7 (8.4-10.2) mg/dL Total Bilirubin 0.3 (0.2-1.3) mg/dL AST 22 (14-36) U/L ALT 17 (6-35) U/L Alkaline Phosphatase 63 (38-126) U/L Total Protein 6.7 (6.3-8.2) g/dL Albumin 3.9 (3.5-5.1) g/dL TSH 2.680 (0.465-4.680) uIU/mL Urine Color Light yellow (Yellow) Urine Appearance Clear (Clear) Urine pH 7.5 (5.0-8.0) Ur Specific [place] 1.015 (1.010-1.020) Urine Protein Negative (Negative) Urine Glucose (UA) Negative (Negative) Urine Ketones Negative (Negative) Ur Blood (Man) 2+ H (Negative) Urine Nitrate Negative (Negative) Urine Bilirubin Negative (Negative) Urine Urobilinogen 0.2 (0.2-1.0) mg/dL Leukocyte Esterase Rfl Negative (Negative) YANET/UL Urine RBC 6-10 H (0-2) /hpf Urine WBC 0-3 (0-3) /hpf Ur Squamous Epith Cells Few (Few) /hpf Urine Bacteria None seen (None) /hpf Ur Oval Fat Bodies None (None) /lpf Urine Test Negative Salicylates < 1.0 L (2-20) mg/dL Urine Opiates Screen Pending Urine Methadone Screen Pending Acetaminophen < 10 L (10-30) ug/mL Ur Barbiturates Screen Pending Ur Phencyclidine Scrn Pending Ur Amphetamine Screen Pending U Benzodiazepines Scrn Pending Urine Cocaine Screen Pending U Cannabinoids Screen Pending Ethyl Alcohol < 10 (<10) mg/dL Discharge Plan Discharge Clinical Impression: Depression with suicidal ideation Drug withdrawal Qualifiers: Substance type: other psychostimulant Qualified Code(s): F15.93 - Other stimulant use, unspecified with withdrawal Patient Disposition: Left Against Medical Advice Condition: Stable Instructions: Antibiotic Form, Polysubstance Use Disorder (ED), Suicide Prevention (ED) Additional Instructions: patient walked out of the ER before I could talk to her. Patient Language: Bulgarian Prescriptions: No Action trazodone 50 mg tablet aripiprazole [Abilify] 5 mg tablet 5 mg PO DAILY lorazepam [Ativan] 0.5 mg tablet 0.5 mg PO Q6H PRN (Reason: anxiety) azithromycin 500 mg tablet See Rx Instructions .ROUTE .COMPLEX Qty: 3 0RF Rx Instructions: For 500 mg dose pack: take 500 mg once daily for 3 days prednisone 20 mg tablet 20 mg PO DAILY 3 Days Qty: 3 0RF ondansetron 4 mg tablet,disintegrating 4 mg PO Q8H PRN (Reason: nausea and vomiting) Qty: 14 0RF levofloxacin 500 mg tablet 500 mg PO DAILY Qty: 6 0RF bupropion HCl [Wellbutrin SR] 150 mg tablet sustained-release 12 hr 150 mg PO QAM Qty: 30 0RF Follow-up/Referrals: Jonathon Schmidt MD [Primary Care Provider] - Time of Disposition: 13:57
[2024-09-17 12:20] VITALS: BP 112/79; PULSE 84; RESP 18; TEMP 36.4; O2SAT 99
--- NOTE | 2024-09-17 12:38 | ECG_ITS ---
Test Date: 2024-09-17 12:51:34 Measurements Intervals [place] Rate: 81 P: 71 PA: 123 QRS: 72 QRSD: 90 T: 69 QT: 363 QTc: 423 Interpretive Statements SINUS RHYTHM POSSIBLE LEFT ATRIAL ENLARGEMENT [-0.1mV P-WAVE IN V1/V2] Compared to ECG 07/25/2024 20:37:27 No significant changes Electronically Signed On 09-18-2024 14:10:29 CDT by Jerry Lopez M.D.
[2024-09-17 12:55] LABS: Hematocrit 38.2 % (35.0-49.0); Hemoglobin 12.3 g/dL (12.0-15.0); Immature Granulocyte Percent A 0.2 % (0.0-0.0); Lymphocytes Absolute Auto 1.56 K/mm3 (1.10-4.50); Mean Corpuscular HGB Conc 32.2 g/dL (32-36); Mean Corpuscular Hemoglobin 30.1 pg (27.0-31.0); Mean Corpuscular Volume 93.4 fL (78.0-102.0); Nucleated Red Blood Cells Absolute Auto 0.00 K/mm3 (0.00-0.00); Nucleated Red Blood Cells Perc 0.0 % (0-0.0); Platelet Count Result 329 K/mm3 (150-420); Red Blood Count 4.09 M/mm3 (4.20-5.40); White Blood Count 5.4 K/mm3 (4.8-10.8)
--- OUTSIDE RECORDS SUMMARY | 2024-09-17 13:03 | XMS_ITS | Clinical Summary ---
Author Organization [facility] Address [address] [place] [address] Care Team Providers Care Principal Developer Name Role Phone Francisco Javier Ivan MD Primary Care Provider [phone] Allergies Active Allergy Reactions Criticality Noted Date [...] e alcohol) [facility] Utilities Answer Date Recorded In the past 12 months has e [employer] gas, oil, or water [employer] threatened to shut off services in [...] time in the past 12 m [facility], were you homeless or living in a [...] VARGHESE NON-REACT VARGHESE 10/13/2023 1:41 PM CDT [facility] Comment:HBsAg NOT DETECTED. HEP B CORE IGM NON-REACT VARGHESE NON-REACT VARGHESE 10/13/2023 1:41 PM CDT [facility] Comment: IgM ANTI HBc NOT DETECTED. DOES NOT EXCLUDE THE POSSIBILITY OF EXPOSURE TO OR INFECTION WITH HBV. NO RETEST REQUIRED. HIGH DOSES OF BIOTIN MAY INTERFERE WITH THIS TEST RESULT. CORRELATION TO CLINICAL HISTORY AND PRESENTATION RECOMMENDED. HAV IGM NON-REACT VARGHESE NON-REACT VARGHESE 10/13/2023 1:41 PM CDT [facility] Comment: IgM ANTI HAV NOT DETECTED. DOES NOT EXCLUDE THE POSSIBILITY OF EXPOSURE TO OR INFECTION WITH HAV. LEVELS OF IgM ANTI HAV MAY BE BELOW THE CUTOFF IN EARLY INFECTION. HEPATITIS C AB NON-REACT VARGHESE NON-REACT VARGHESE 10/13/2023 1:42 PM CDT [facility] Comment: ANTIBODIES TO HCV NOT DETECTED. DOES NOT EXCLUDE THE POSSIBILITY OF EXPOSURE TO HCV. 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
--- OUTSIDE RECORDS SUMMARY | 2024-09-17 13:03 | XMS_ITS | Encounter Summary ---
Author Organization [facility] Address [address] [place] [address] Care Team Providers Care Cross Country/Track And Field Coach Name Role Phone None, Provider Primary Care Provider Francisco Javier Santana MD Primary Care Provider [phone] Encounter Details Date Type Department Care Team (Late st Contact Info) Description 07/31/2018 Abstract [facility] CONVERSION [address] [place] [address] , Generic Conversion, Social History Tobacco Use [...] on filedocumented in this encounter Care Teams Cross Country/Track And Field Coach Relationship Specialty Start Date End Date None, Provider, PCP - General UNKNOWN PHYSICIAN SPECIALTY 07/13/23 06/04/24 Francisco Javier Ivan MD [address] [place] [address] PCP - General FAMILY PRACTICE 06/05/24 documented as of this encounter
[2024-09-17 13:06] LABS: Acetaminophen < 10 ug/mL (10-30); Salicylate < 1.0 mg/dL (2-20)
[2024-09-17 13:40] LABS: Add Urine Microscopic? YES; Appearance Urine Clear (Clear); Glucose Urine UA Negative (Negative); Leukocyte Esterase Ur Negative LEU/UL (Negative); Nitrate Urine Negative (Negative); Specific Grav Ur 1.015 (1.010-1.020)
[2024-09-17 13:43] LABS: Alanine Aminotransferase 17 U/L (6-35); Anion Gap 1 mmol/L (4-12); Aspartate Amino Transferase 22 U/L (14-36); Bilirubin,Total 0.3 mg/dL (0.2-1.3); Blood Urea Nitrogen 17 mg/dL (7-17); Calcium 8.7 mg/dL (8.4-10.2); Carbon Dioxide 29 mmol/L (22-30); Chloride 108 mmol/L (98-107); Estimated CRCL calculation 56 ml/min; Estimated Glomerular Filt Rate > 60; Glucose 75 mg/dL (65-110); Osmolality Calculated 286 mOsm/kg (285-295); Potassium 4.3 mmol/L (3.4-5.0); Sodium 138 mmol/L (137-145)
[2024-09-17 13:44] LABS: Albumin Level 3.9 g/dL (3.5-5.1); Alkaline Phosphatase 63 U/L (38-126); Pregnancy On Board Control Positive; Thyroid Stimulating Hormone 2.680 uIU/mL (0.465-4.680); Total Protein 6.7 g/dL (6.3-8.2)
[2024-09-17 14:04] LABS: Cannabinoid Screen Urine Negative (Negative)
== END 2024-09-17 14:00 | disposition left against medical advice (07) ==
PROVIDERS: Emergency Provider Internal Medicine Critical Care Medicine; PCP Internal Medicine
DX: F32.A Depression, unspecified (principal); R45.851 Suicidal ideations; F15.93 Other stimulant use, unspecified with withdrawal; F17.210 Nicotine dependence, cigarettes, uncomplicated
CPT/HCPCS: 36415; 80053; 80143; 80179; 80307; 81001; 81025; 82077; 84443; 85025; 93005; 99284

== ENCOUNTER 2024-09-27 20:17 | Emergency (ER) | payer OTHER, SELFPAY ==
--- OUTSIDE RECORDS SUMMARY | 2024-09-27 20:20 | XMS_ITS | Encounter Summary ---
Author Organization [facility] Address [address] [place] [address] Care Team Providers Care Sales Representative Facility Services Name Role Phone None, Provider Primary Care Provider Francisco Javier Santana MD Primary Care Provider [phone] Encounter Details Date Type Department Care Team (Late st Contact Info) Description 07/31/2018 Abstract [facility] CONVERSION [address] [place] [address] , Generic Conversion, Social History Tobacco Use [...] on filedocumented in this encounter Care Teams Sales Representative Facility Services Relationship Specialty Start Date End Date None, Provider, PCP - General UNKNOWN PHYSICIAN SPECIALTY 07/13/23 06/04/24 Francisco Javier Ivan MD [address] [place] [address] PCP - General FAMILY PRACTICE 06/05/24 documented as of this encounter
--- OUTSIDE RECORDS SUMMARY | 2024-09-27 20:20 | XMS_ITS | Patient Health Record ---
Author Organization [facility] Address [address] [place] [address] Care Team Providers Care Food Service Kitchen Supervisor Name Role Phone Nazia Eppssyed Primary Care Provider Kasey Ny Unavailable [phone] Ava Hernandez Unavailable [phone] Braxton Costa Unavailable [phone] Allergies Allergen (clinical drug ingredient) Drug/Non Drug Allergy documented on EMR Reaction Allergy Type Onset Date Status Penicillin rash Drug Allergy Active Results Component Value Reference Range Notes Test, Urine Reviewed date:09/20/2024 03:01:25 PM Interpretation: Performing Lab: Notes/Report: Test, Urine neg Negative - Negative HIV Screen *HIV 1, 2 Ab, p24 Ag ([id number]) Reviewed date:09/21/2024 02:19:40 PM Interpretation:Normal Performing Lab:[employer], [address] [facility], Phone - [phone], Director - [facility] Notes/Report: HIV Ab/p24 Ag Screen Non Reactive Non Reactive HIV-1/HIV-2 antibodies and HIV-1 p24 antigen were NOT detected. There is no laboratory evidence of HIV infection. HIV Negative CMP 14 Comprehensive Metabol ic Panel* Reviewed date:09/21/2024 02:19:40 PM Interpretation:Normal Performing Lab:[facility], [address] [facility], Phone - [phone], Director - [facility] Notes/Report: Glucose 73 70-99 mg/dL BUN 14 6-24 mg/dL Creatinine 0.92 0.57-1.00 mg/dL eGFR 80 >59 mL/min/1.73 BUN/Creatinine Ratio 15 9-23 Sodium 140 134-144 mmol/L Potassium 4.4 3.5-5.2 mmol/L Chloride 102 96-106 mmol/L Carbon Dioxide, Total 22 20-29 mmol/L Calcium 9.7 8.7-10.2 mg/dL Protein, Total 7.4 6.0-8.5 g/dL Albumin 4.7 3.9-4.9 g/dL Globulin, Total 2.7 1.5-4.5 g/dL Bilirubin, Total 0.3 0.0-1.2 mg/dL Alkaline Phosphatase 89 44-121 IU/L AST (SGOT) 13 0-40 IU/L ALT (SGPT) 13 0-32 IU/L CBC With Differential/Platel et* Reviewed date:09/21/2024 02:19:40 PM Interpretation:Normal Performing Lab:[facility], [address] [facility], Phone - [phone], Director - [place] Notes/Report: WBC 5.9 3.4-10.8 x10E3/uL RBC 4.83 3.77-5.28 x10E6/uL Hemoglobin 14.9 11.1-15.9 g/dL Hematocrit 45.8 34.0-46.6 % MCV 95 79-97 fL MCH 30.8 26.6-33.0 pg MCHC 32.5 31.5-35.7 g/dL RDW 12.5 11.7-15.4 % Platelets 355 150-450 x10E3/uL Neutrophils 63 Not Estab. % Lymphs 32 Not Estab. % Monocytes 3 Not Estab. % Eos 1 Not Estab. % Basos 1 Not Estab. % Neutrophils (Absolute) 3.7 1.4-7.0 x10E3/uL Lymphs (Absolute) 1.9 0.7-3.1 x10E3/uL Monocytes(Absolute) 0.2 0.1-0.9 x10E3/uL Eos (Absolute) 0.0 0.0-0.4 x10E3/uL Baso (Absolute) 0.0 0.0-0.2 x10E3/uL Immature Granulocytes 0 Not Estab. % Immature Grans (Abs) 0.0 0.0-0.1 x10E3/uL 14 Panel Urine Drug Screen Reviewed date:09/20/2024 12:02:23 PM Interpretation: Performing Lab: Notes/Report: THC neg CHRISTOPHER neg MOP (OPI) neg AMP pos MET neg BAR neg BZO neg MDMA neg MTD neg OXY neg PCP neg BUP neg TCA neg FTY neg Breathalyzer Reviewed date:09/20/2024 03:01:30 PM Interpretation: Performing Lab: Notes/Report: SHERI 0.000 QuantiFERON-TB Gold Plus ([id number]) Reviewed date:09/22/2024 02:30:29 PM Interpretation:Normal Performing Lab:[facility], [address] [facility] [place], Phone - [phone], Director - [place] Notes/Report: QuantiFERON Incubation Incubation performed. QuantiFERON-TB Gold Plus Negative Negative No response to M tuberculosis antigens detected. Infection with M tuberculosis is unlikely, but high risk individuals should be considered for additional testing (ATS/IDSA/CDC Clinical Practice Guidelines, 2017). The reference range is an Antigen minus Nil result of <0.35 IU/mL. Chemiluminescence immunoassay methodology QuantiFERON Criteria QuantiFERON-TB Gold Plus is a qualitative indirect test for M tuberculosis infection (including disease) and is intended for use in conjunction with risk assessment, radiography, and other medical and diagnostic evaluations. The QuantiFERON-TB Gold Plus result is determined by subtracting the Nil value from either TB antigen (Ag) value. The Mitogen tube serves as a control for the test. QuantiFERON TB1 Ag Value 0.06 QuantiFERON TB2 Ag Value 0.06 QuantiFERON Nil Value 0.02 QuantiFERON Mitogen Value >10.00 Reason For Referral No Information Medications Medication SIG (Take, Route, Frequency, Duration) Notes Start Date End Date Status buPROPion HCl ER (XL) 150 MG TAKE 1 TABLET BY MOUTH ONCE A DAY Oral; Duration: 30 Days Not-Taking traZODone HCl 100 mg TAKE 1 TABLET BY MOUTH EVERY NIGHT AT BEDTIME NEEDED; Duration: 10 Active Gabapentin 600 MG 1 tablet Orally at bedtime; Duration: 4 days 09/20/2024 Active OLANZapine 2.5 MG Oral; Duration: 30 Days Not-Taking hydrOXYzine Pamoate 25 MG 1-2 capsules O rally every 4 hours as needed for anxiety, agitation, or inability to sleep. Do not give within 4 hours of diphenhydramine.; Duration: 30 days 09/20/2024 Not-Taking Melatonin 5 MG 1 tablet at bedtime as needed Orally Once a day; Duration: 30 days 09/20/2024 Not-Taking Multi Vitamin - 1 tablet Orally Once a day; Duration: 30 days 09/20/2024 Not-Taking Gabapentin 400 MG 1 capsule Orally 3 times a day; Duration: 4 days 09/20/2024 Active OLANZapine 2.5 MG 1 tablet as needed Orally Once a day; Duration: 30 days As needed 09/21/2024 Active OLANZapine 10 MG 1 tablet at bedtime Orally Once a day; Duration: 30 days 09/21/2024 Active Buprenorphine HCl-Naloxone HCl 4-1 MG 1 film under the tongue and allow to dissolve Sublingual twice a day; Duration: 7 days 09/20/2024 Active Prochlorperazine Maleate 10 MG 1 tablet as needed Orally every 6 hours As needed for nausea 09/20/2024 Active ARIPiprazole 5 MG TAKE 1 TABLET BY MOUTH EVERY DAY Oral; Duration: 30 Days Not-Taking Social History Tobacco Use: Social History Observation Description Date Details (start date - stop date) Current Smoker NA - NA Sex Assigned At : Social History Observation Description Sex Assigned At Female Tobacco Control (Standard) Question Answer Notes Tobacco use: Current smoker Problems Problem Type SNOMED Code ICD Code Onset Dates Problem Status W/U Status Risk Notes Problem Benign paroxysmal positional vertigo (716516393) Benign paroxysmal vertigo, bilateral (H81.13) Active confirmed Problem Thyroid nodule (457479667) Thyroid nodule (E04.1) Active confirmed Problem Overweight (381934303) Over weight (E66.3) Active confirmed Problem Systolic murmur (09676322) Systolic murmur (I38) Active confirmed Problem Bipolar disorder (52925325) Bipolar 1 disorder, depressed (F31.9) Active confirmed Problem Stimulant abuse (209682282) Methamphetamine use disorder, mild, 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 confirmed Problem Opioid use disorder (5630226053) Opioid use disorder (F11.99) Active confirmed Problem Tobacco user (418821138) Nicotine dependence with current use (F17.200) Active confirmed Vital Signs Heart Rate 69 /min 09/26/2024 1st bp @ 2:43 p m (lying down), 2nd bp at 2:48 pm (sitting): 102/60, 3rd bp at 2:53 pm (standing): 98/58 Temperature 98.6 degrees Fahrenheit 09/26/2024 1st bp @ 2:43 pm (lying down), 2nd bp at 2:48 pm (sitting): 102/60, 3rd bp at 2:53 pm (standing): 98/58 Respiratory Rate 16 /min 09/26/2024 1st bp @ 2: 43 pm (lying down), 2nd bp at 2:48 pm (sitting): 102/60, 3rd bp at 2:53 pm (standing): 98/58 Blood pressure diastolic 54 mm Hg 09/26/2024 1st bp @ 2:43 pm (lying down), 2nd bp at 2:48 pm (sitting): 102/60, 3rd bp at 2:53 pm (standing): 98/58 Oximetry 99 % 09/26/2024 1st bp @ 2:43 p m (lying down), 2nd bp at 2:48 pm (sitting): 102/60, 3rd bp at 2:53 pm (standing): 98/58 Height 61 in 09/26/2024 1st bp @ 2:43 p m (lying down), 2nd bp at 2:48 pm (sitting): 102/60, 3rd bp at 2:53 pm (standing): 98/58 Blood pressure systolic 92 mm Hg 09/26/2024 1st bp @ 2:43 pm (lying down), 2nd bp at 2:48 pm (sitting): 102/60, 3rd bp at 2:53 pm (standing): 98/58 Weight 132.4 lbs 09/26/2024 1st bp @ 2:43 p m (lying down), 2nd bp at 2:48 pm (sitting): 102/60, 3rd bp at 2:53 pm (standing): 98/58 BMI 25.01 kg/m2 09/26/2024 1st bp @ 2:43 p m (lying down), 2nd bp at 2:48 pm (sitting): 102/60, 3rd bp at 2:53 pm (standing): 98/58 Encounters Encounter Location Date Provider Diagnosis [facility] [address] [place] [address] 09/20/2024 Alana Epps Methamphetamine use disorder, mild, in early remission F15.10 ; Opioid use disorder F11.99 ; Routine general medical examination at a health care facility Z00.00 and Nicotine dependence with current use F17.[address] [place] [address] 09/20/2024 Ava Hernandez Methamphetamine use disorder, mild, in early remission F15.10 and Bipolar 1 disorder, depressed F31.[address] [place] [address] 09/21/2024 Kasey Ny Bipolar 1 disorder, depressed F31.9 [place] [address] [place] [address] 09/26/2024 Braxton Costa Thyroid nodule E04.1 ; Benign paroxysmal vertigo, bilateral H81.13 ; Systolic murmur I38 and Over weight E66.3 [facility] [address] [place] [address] 09/19/2024 Alana Epps [place] [address] [place] [address] 09/20/2024 Alana Epps Assessments Encounter Date Diagnosis (ICD Code) Assessment Notes Treatment Notes Treatment Clinical Notes Section Notes 09/20/2024 Methamphetamine use disorder, mild, in early remission (ICD-10 - F15.10) 09/20/2024 Opioid use disorder (ICD-10 - F11.99) 09/20/2024 Methamphetamine use disorder, mild, in early remission (ICD-10 - F15.10) 09/21/2024 Bipolar 1 disorder, depressed (ICD-10 - F31.9) Start olanzapine to help with mood instability and sleep. Olanzapine 2.5mg po PRN daily for anxiety. 10mg scheduled po QHS. Labs completed recently. May self-administer medications or be administered own oral medications per [place] protocols. Provided informed consent with understanding of side effects, adverse effects, risks and benefits as well as alternative treatments as previously discussed and with the above recommended medications & other aspects of the treatment program. Agrees to return sooner if symptoms worsen or suicidal or homicidal ideations occur. 09/26/2024 Benign paroxysmal vertigo, bilateral (ICD-10 - H81.13) Educated the patient on proper radha maneuver technique while on the unit and to do the maneuver several times a day to help with symptoms. Educated the patient on the likely origin of her symptoms, head trauma from 7 weeks ago. Patient is ok to continue being in group. Limit the patient's exercise until s/s improve Limit salt intake to 2g a day 09/26/2024 Thyroid nodule (ICD-10 - E04.1) 09/20/2024 Routine general medical examination at a health care facility (ICD-10 - Z00.00) SUPR Programs: Based on an evaluation of [facility] Patient Placement Criteria, a recommendation for placement in Level III treatment is indicated and approved. Confirmation of diagnosis is documented in the initial treatment plan.Admit to the Mental Health/Crisis Residential Unit and initiate standing/protocol orders: The following PRN medications may be self-administered by patients under the supervision of approved staff or administered by nursing staff: Ibuprofen 200mg, 2-4 tablets by mouth (with food) every 6 hours as needed for pain (unless on lithium). (NOTE: Ibuprofen and acetaminophen may be given together, but alternating is recommended for continuous pain relief. Guaifenesin 400 mg, 1 tablet by mouth every four hours as needed for cough and chest congestion (take with large glass of water). Loratadine 10 mg, 1 tablet by mouth daily as needed for allergies, watery itchy eyes, or sinus drainage. Throat Lozenges, up to 4 tablets by mouth every three to four hours as needed for sore throat. Antacid tablets, 1-2 tablets by mouth every one to two hours as needed for indigestion or heart burn. If the client prefers liquid, could use: Liquid Antacid : 1 ounce by mouth up to four times daily as needed for indigestion or heartburn Omeprazole 20mg, 1 capsule by mouth once daily for 14 days for frequent heartburn (frequent heartburn is more than 2 episodes per week). Do not exceed 14 days. Do not give to client already taking a proton-pump inhibitor: esomeprazole (Nexium), lansoprazole (Prevacid), pantoprazole (Protonix), rabeprazole (Aciphex), dexlansoprazole (Dexilant) Zofran ODT disintegrating (under the tongue) 4 mg, 1-2 tablets every 8 hours as needed for nausea/vomiting. Milk of Magnesia (MOM): 1 ounce (30 milliliters) by mouth every day as needed for constipation. OR Miralax: Stir and fully dissolve 17 grams (1 packet or 1 capful to measured line) in any 4 to 8 ounces of beverage then drink once daily for constipation. Do not use for more than 7 days. OR Docusate 100 mg, 1 capsule twice daily as needed for constipation Hydrocortisone 1% Cream, apply topically (to the skin) to the affected area up to three times daily as needed for itching or inflammation (avoid eyes and genitals). 2% Antifungal Cream, apply topically (to the skin) as directed as needed to affected areas for athlete's foot or jock itch. Triple Antibiotic Ointment, apply topically (to the skin) up to three times daily as needed for minor cuts and scrapes. Carmex or Chapstick, apply topically (to the skin) as needed for chapped lips and skin. Orajel, apply to affected areas as needed for mouth or tooth pain. Lubricating Eye Drops, instill 1-2 drops to the affected eye(s) as needed for dry/irritated eye(s). Hemorrhoid medications, apply to affected area according to directions as needed for hemorrhoid discomfort and itch. Nix (Permethrin 1%) cream 2 ounces, apply topically (to the skin) as directed as needed for head lice. Sunscreen 30 SPF, Apply to exposed skin prior to exposure to sun. The following PRN medications must be approved by nursing staff before self-administratio n by patients: Diphenhydramine 25 mg, 2 tablets by mouth every 4 hours as needed for allergic reaction or itchy rash. Caution: Do not use hydroxyzine within 4 hours of diphenhydramine and vice versa. Loperamide 2 mg capsules, may give two capsules by mouth for the initial dose, followed by one capsule up to 3 times a day as needed for diarrhea. Acetaminophen 500 mg, 1 - 2 tablets by mouth every six hours as needed for pain. (NOTE: Ibuprofen and acetaminophen may be given together, but alternating is recommended for continuous pain relief). Oxygen-May administer oxygen 2L/min via nasal cannula if O2 saturation is less than 92%, AND client complains of shortness of breath. Target O2 saturation is 94-98%. Caution: Remember too much oxygen can be detrimental to a client with COPD. Oxygen is a drug and should be delivered by trained staff only. Nurses may remove superficial splinters and sutures from skin lacerations. May apply gauze or bandages to any weeping wounds. Contact nursing if there is pus, a foul odor, increased pain/redness/swell ing, or if soaking through bandages. 09/20/2024 Bipolar 1 disorder, depressed (ICD-10 - F31.9) 09/26/2024 Systolic murmur (ICD-10 - I38) 09/20/2024 Nicotine dependence with current use (ICD-10 - F17.200) 09/26/2024 Over weight (ICD-10 - E66.3) 09/20/2024 Other Clinician met w ith client to assess needs for residential services. Clinician gathered information regarding historical presentation of mental health and substance use symptoms including withdrawal, HIV Risk assessment, psychiatric hospitalization history and presenting concern. Clinician conducted PHQ9 and CSSRS assessments as well as social drivers of health screening for the purposes of identifying additional service needs. Plan Of Treatment Future Test Test Name Order Date Echo doppler exam 09/26/2024 Ultrasound : Thyroid 09/26/2024 Insurance Providers Payer Name Payer Address Payer Phone Subscriber Number Group Number Insured Name Patient Relationship to Insured Coverage Start Date Coverage End Date [employer] [address] [place] [phone] [id number] Jaycee Rouse Self - patient is the insured 3 [employer] [address] [place] [address] [id number] Jaycee Rouse Self - patient is the insured 5 [employer] [address] [place] [phone] [id number] Jaycee Rouse Self - patient is the insured 5 Medical (General) History Medical History History ICD Code Manic Depression Surgical History Surgery Date(Month/Year) 3 c-sections right hand has pins gall bladder removed Hospitalization History Reason Date(Month/Year) gateway, multiple times between 2023- 5 06/2024
--- OUTSIDE RECORDS SUMMARY | 2024-09-27 20:20 | XMS_ITS | Clinical Summary ---
Author Organization [facility] Address [address] [place] [address] Care Team Providers Care Fur Blower Operator Name Role Phone Francisco Javier Ivan MD Primary Care Provider [phone] Allergies Active Allergy Reactions Criticality Noted Date [...] drink = 0.6 oz pur e alcohol) [place] Utilities Answer Date Recorded In the past 12 months has e [employer] gas, oil, or water [employer] threatened to shut off services in your [...] time in the past 12 m [facility], were you homeless or living in a [facility]p (including now)? Yes 10/13/2023 Comments No Sex [...] VARGHESE NON-REACT VARGHESE 10/13/2023 1:41 PM CDT [facility] Comment:HBsAg NOT DETECTED. HEP B CORE IGM NON-REACT VARGHESE NON-REACT VARGHESE 10/13/2023 1:41 PM CDT [facility] Comment: IgM ANTI HBc NOT DETECTED. DOES NOT EXCLUDE THE POSSIBILITY OF EXPOSURE TO OR INFECTION WITH HBV. NO RETEST REQUIRED. HIGH DOSES OF BIOTIN MAY INTERFERE WITH THIS TEST RESULT. CORRELATION TO CLINICAL HISTORY AND PRESENTATION RECOMMENDED. HAV IGM NON-REACT VARGHESE NON-REACT VARGHESE 10/13/2023 1:41 PM CDT [facility] Comment: IgM ANTI HAV NOT DETECTED. DOES NOT EXCLUDE THE POSSIBILITY OF EXPOSURE TO OR INFECTION WITH HAV. LEVELS OF IgM ANTI HAV MAY BE BELOW THE CUTOFF IN EARLY INFECTION. HEPATITIS C AB NON-REACT VARGHESE NON-REACT VARGHESE 10/13/2023 1:42 PM CDT [facility] Comment: ANTIBODIES TO HCV NOT DETECTED. DOES NOT EXCLUDE THE POSSIBILITY OF EXPOSURE TO HCV. 

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
--- NOTE | 2024-09-27 20:22 | ECG_ITS ---
Test Date: 2024-09-27 20:32:47 Measurements Intervals [place] Rate: 65 P: 60 PA: 123 QRS: 58 QRSD: 94 T: 57 QT: 373 QTc: 390 Interpretive Statements SINUS RHYTHM NORMAL ECG Compared to ECG 09/17/2024 12:51:34 No significant changes Electronically Signed On 09-27-2024 20:58:50 CDT by Sonny Velasco D.O.
[2024-09-27 20:23] VITALS: BP 109/51; PULSE 65; RESP 16; TEMP 37; O2SAT 100
--- NOTE | 2024-09-27 21:49 | PC.NURSE ---
Called [facility]na to arrange ride back to facility, unable to get a hold of anyone. Voicemail left by this RN to call back.
--- NOTE | 2024-09-27 22:00 | PC.NURSE ---
Patient approached triage desk stating she was going to leave due to the wait time. Pt asked for this RN to call donna to come pick her up. This RN made multiple calls to donna with no answer and left a voicemail. Pt notified and stated she is just going to walk over. Pt informed that she may not be let back in to their facility by just walking and was advised to wait for a ride. Pt refused and started walking.
== END 2024-09-27 22:00 | disposition left against medical advice (07) ==
DX: R42 Dizziness and giddiness (principal)
CPT/HCPCS: 93005; 99199

== ENCOUNTER 2024-10-15 14:30 | Emergency (ER) | payer OTHER, SELFPAY ==
--- OUTSIDE RECORDS SUMMARY | 2024-09-28 05:40 | XMS_ITS ---
Author Organization [facility] Address [address] [place] [address] Care Team Providers Care Hydrographer Name Role Phone Alana Epps Primary Care Provider [phone] Ana Verma [phone] REASON FOR VISIT new patient Social History Sex Assigned At : Social History Observation Description Sex Assigned At Female Encounters Encounter Location Date Provider Diagnosis [facility] [address] [place] [address] 09/28/2024 Ana Verma Plan Of Treatment No Information Progress Notes * Jaycee SLATERDOB:1980 (44 yo F)Acc No.[id number]:09/28/2024 UNLOCKED PROGRESS NOTE Patient: Jaycee AYALA Provider: ALCON Nash, COMPUTER NUMERICAL CONTROL MACHINIST, PMHNP-BC :1980 A ge:44 Y S ex:Female Date:09/28/2024 Address:[address] [facility] Pcp:Alana Epps Subjective: * Chief Complaints: * 1 . New patient. * Medical History: Objective: * Vitals: Assessment: Plan: * Treatment: * * Electronic signature of Anton Verma on 10/15/2024 at 02:45 PM CDT Sign off status: Pending * Provider: Peg Verma MSN, COMPUTER NUMERICAL CONTROL MACHINIST, PMHNP-BC Date: 0 09/28/2024 Generated for Printing/Faxing/eTransmitting on: 0 10/15/2024 02:45 PM CDT
--- OUTSIDE RECORDS SUMMARY | 2024-09-29 04:20 | XMS_ITS ---
Author Organization [facility] Address [address] [place] [address] Care Team Providers Care Scrap Materials Buyer Name Role Phone Alana Epps Primary Care Provider Leandro Harris [phone] REASON FOR VISIT new patient Social History Sex Assigned At : Social History Observation Description Sex Assigned At Female Encounters Encounter Location Date Provider Diagnosis [address] [place] [address] 09/29/2024 Leandro Harris Plan Of Treatment No Information Progress Notes * PADMABradsyedDOB:1980 (44 yo F)Acc No.[id number]:09/29/2024 UNLOCKED PROGRESS NOTE Patient: Jaycee AYALA Provider: Sasha Harris DNP, PMHNP-BC :1980 A ge:44 Y S ex:Female Date:09/29/2024 [facility] [facility] Pcp:Alana Epps Subjective: * Chief Complaints: * 1 . New patient. * Medical History: Objective: * Vitals: Assessment: Plan: * Treatment: * * Electronic signature of Kanu Harris APRN, [id number] on 10/15/2024 at 02:45 PM CDT Sign off status: Pending * Provider: Sasha Harris DNP, PMHNP-BC Date: 09/29/2024 Generated for Roland felder/Karina/eTransmitting on: 10/15/2024 02:45 PM CDT
--- OUTSIDE RECORDS SUMMARY | 2024-10-06 03:20 | XMS_ITS ---
Author Organization [facility] Address [address] [place] [address] Care Team Providers Care Manager Packaging Name Role Phone Alana Epps Primary Care Provider REASON FOR VISIT 1 week f/u Social History Sex Assigned At : Social History Observation Description Sex Assigned At Female Encounters Encounter Location Date Provider Diagnosis [place] [address] [place] [address] 10/06/2024 Alana Epps Plan Of Treatment No Information Progress Notes * Jaycee ROUSEDOB:1980 (44 yo F)Acc No.[id number]:10/06/2024 UNLOCKED PROGRESS NOTE Patient: Jaycee AYALA Provider: Sasha Epps MSN, PHARMACY DATA ANALYST, TOE CLOSING MACHINE TENDER-C :1980 A ge:44 Y S ex:Female Date:10/06/2024 Address[address] [facility] Subjective: * Chief Complaints: * 1 . 1 week f/u. * Medical History: Objective: * Vitals: Assessment: Plan: * Treatment: * Care Plan Details* * Electronic signature of Guera Epps APRN, [id number] on 10/15/2024 at 02:45 PM CDT Sign off status: Pending * Provider: Sasha Epps MSN, PHARMACY DATA ANALYST, TOE CLOSING MACHINE TENDER-C Date: 0 10/06/2024 Generated for Roland felder/Karina/eTransmitting on: 0 10/15/2024 02:45 PM CDT
--- NOTE | ~2024-10-15 | XR_ITS ---
EXAMINATION: XR chest 1V portable 10/15/2024 15:18 INDICATION: Chest pain PROCEDURE: AP portable chest COMPARISON: Comparison to multiple prior studies sequentially, with oldest reviewed study dated 02/09/2024. FINDINGS: The lungs are clear. The cardiomediastinal silhouette is within normal limits. There are no pleural effusions. There is no pneumothorax suspected. IMPRESSION: 1: NO ACUTE CARDIOPULMONARY DISEASE. Reviewed, dictated and finalized at location O.
[2024-10-15 14:30] VITALS: BP 130/83; PULSE 86; PULSE 87; RESP 18; TEMP 36.9; O2SAT 100
--- NOTE | 2024-10-15 14:43 | ECG_ITS ---
Test Date: 2024-10-15 14:57:24 Measurements Intervals Hatch Rate: 90 P: 58 DE: 121 QRS: 70 QRSD: 95 T: 60 QT: 362 QTc: 445 Interpretive Statements SINUS RHYTHM WITH SINUS ARRHYTHMIA MINIMAL Q WAVES- ANTEROLAT/INF LEADS BASELINE ARTIFACT- I, II, III, AVR, AVL, AVF, V1-V3 BORDERLINE ECG Compared to ECG 09/27/2024 20:32:47 No significant changes Electronically Signed On 10-15-2024 17:11:12 CDT by Sonny Velasco D.O.
--- OUTSIDE RECORDS SUMMARY | 2024-10-15 14:45 | XMS_ITS | Clinical Summary ---
Author Organization [facility] Address [address] [place] [address] Care Team Providers Care Venue Manager Name Role Phone Francisco Javier Ivan MD Primary Care Provider [phone] Allergies Active Allergy Reactions Criticality Noted Date [...] In the past 12 months has e [employer] gas, oil, or water [employer] threatened to shut off services in your [...] any time in the past 12 m [facility], were you homeless or [...] VARGHESE NON-REACT VARGHESE 10/13/2023 1:41 PM CDT [facility] Comment:HBsAg NOT DETECTED. HEP B CORE IGM NON-REACT VARGHESE NON-REACT VARGHESE 10/13/2023 1:41 PM CDT [facility] Comment: IgM ANTI HBc NOT DETECTED. DOES NOT EXCLUDE THE POSSIBILITY OF EXPOSURE TO OR INFECTION WITH HBV. NO RETEST REQUIRED. HIGH DOSES OF BIOTIN MAY INTERFERE WITH THIS TEST RESULT. CORRELATION TO CLINICAL HISTORY AND PRESENTATION RECOMMENDED. HAV IGM NON-REACT VARGHESE NON-REACT VARGHESE 10/13/2023 1:41 PM CDT [facility] Comment: IgM ANTI HAV NOT DETECTED. DOES NOT EXCLUDE THE POSSIBILITY OF EXPOSURE TO OR INFECTION WITH HAV. LEVELS OF IgM ANTI HAV MAY BE BELOW THE CUTOFF IN EARLY INFECTION. HEPATITIS C AB NON-REACT VARGHESE NON-REACT VARGHESE 10/13/2023 1:42 PM CDT [facility] Comment: ANTIBODIES TO HCV NOT DETECTED. DOES NOT EXCLUDE THE POSSIBILITY OF EXPOSURE TO HCV. 10/13/2023 3:24 AM CDT Tenisha Cheema MD LABORATORY Final Result [facility] [address] [place] [address], [id number] from Last 3 Months or Most Recently Relevant to Health Maintenance [place] [address] [place] [address] Advance Directives Documents on File Type Date Recorded Patient Wound/Ostomy Clinical Nurse Specialist Expl anation Advance Directives and Living Will 05/10/2015 12:00 AM ADVANCED DIRECTIVES Advance Directives and Living Will 08/06/2013 12:00 AM ADVANCED DIRECTIVES Advance Directives and Living Will 12/28/2012 12:00 AM ADVANCED DIRECTIVES * Full Code (Latest Code Status on File) Date Activated Date Inactivated Comments 10/13/2023 5:53 AM 10/14/2023 10:50 AM Care Teams Venue Manager Relationship Specialty Start Date End Date Francisco Javier Ivan MD [address] [address] PCP - General FAMILY PRACTICE 06/05/24
--- OUTSIDE RECORDS SUMMARY | 2024-10-15 14:45 | XMS_ITS | Encounter Summary ---
Author Organization [facility] Address [address] [place] [address] Care Team Providers Care Forest Products Gatherer Name Role Phone None, Provider Primary Care Provider Francisco Javier Santana MD Primary Care Provider [phone] Encounter Details Date Type Department Care Team (Late st Contact Info) Description 07/31/2018 Abstract SFL CONVERSION [address] [address] , Generic Conversion, Social History Tobacco Use [...] on filedocumented in this encounter Care Teams Forest Products Gatherer Relationship Specialty Start Date End Date None, Provider, PCP - General UNKNOWN PHYSICIAN SPECIALTY 07/13/23 06/04/24 Francisco Javier Ivan MD [address] [place] [address] PCP - General FAMILY PRACTICE 06/05/24 documented as of this encounter
[2024-10-15 14:48] VITALS: BP 122/83; PULSE 89; RESP 16; O2SAT 100
--- OUTSIDE RECORDS SUMMARY | 2024-10-15 14:57 | XMS_ITS | Patient Health Record ---
Author Organization [facility] Address [address] [place] [address] Care Team Providers Care Signals Officer Name Role Phone Alana Epps Primary Care Provider Kasey Ny Unavailable [phone] Ava Hernandez Unavailable [phone] Leandro Harris Unavailable [phone] Ana Verma Unavailable [phone] Braxton Costa Unavailable [phone] Allergies Allergen (clinical drug ingredient) Drug/Non Drug Allergy documented on EMR Reaction Allergy Type Onset Date Status Penicillin rash Drug Allergy Active Results Component Value Reference Range Notes QuantiFERON-TB Gold Plus ([id number]) Reviewed date:09/22/2024 02:30:29 PM Interpretation:Normal Performing Lab:[facility], [address] [place] [address], Phone - [phone], Director - Eryn Notes/Report: QuantiFERON Incubation Incubation [...] Nil Value 0.02 QuantiFERON Mitogen Value >10.00 Test, Urine Reviewed date:09/20/2024 03:01:25 PM Interpretation: Performing Lab: Notes/Report: Test, Urine neg Negative - Negative HIV Screen *HIV 1, 2 Ab, p24 Ag ([id number]) Reviewed date:09/21/2024 02:19:40 PM Interpretation:Normal Performing Lab:[facility], Phone - [phone], Director - [facility] Notes/Report: HIV Ab/p24 Ag Screen Non Reactive Non Reactive HIV-1/HIV-2 antibodies and HIV-1 p24 antigen were NOT detected. There is no laboratory evidence of HIV infection. HIV Negative CMP 14 Comprehensive Metabol ic Panel* Reviewed date:09/21/2024 02:19:40 PM Interpretation:Normal Performing Lab:[facility], [facility], Phone - [phone], Director - [facility] Notes/Report: Glucose 73 70-99 mg/dL BUN 14 [...] et* Reviewed date:09/21/2024 02:19:40 PM Interpretation:Normal Performing Lab:[facility], [facility], Phone - [phone], Director - Eryn Notes/Report: WBC 5.9 3.4-10.8 [...] PM Interpretation: Performing Lab: Notes/Report: SHERI 0.000 Reason For Referral No Information Medications Medication SIG (Take, Route, Frequency, Duration) Notes Start Date End Date Status buPROPion HCl ER (XL) 150 MG TAKE 1 TABLET BY MOUTH ONCE A DAY Oral; Duration: 30 Days Not-Taking traZODone HCl 100 mg TAKE 1 TABLET BY MOUTH EVERY NIGHT AT BEDTIME NEEDED; Duration: 10 Active Buprenorphine HCl-Naloxone HCl 4-1 MG 1 film under the tongue and allow to dissolve Sublingual twice a day; Duration: 7 days 09/29/2024 Active Gabapentin 600 MG 1 tablet Orally [...] a day; Duration: 30 days 09/21/2024 Active Prochlorperazine Maleate 10 MG 1 tablet [...] Risk Notes Problem Benign paroxysmal positional vertigo (996259112) Benign paroxysmal vertigo, bilateral (H81.13) Active confirmed Problem Thyroid nodule (077190252) Thyroid nodule (E04.1) Active confirmed Problem Overweight (590215983) Over weight (E66.3) Active confirmed Problem Systolic murmur (03084949) Systolic murmur (I38) Active confirmed Problem Bipolar disorder (94514469) Bipolar 1 disorder, depressed (F31.9) Active confirmed Problem Stimulant abuse (015551757) Methamphetamine use disorder, mild, 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 confirmed Problem Opioid use disorder (2163395363) Opioid use disorder (F11.99) Active confirmed Problem Tobacco user (664386177) Nicotine dependence with current use (F17.200) Active [...] Encounter Location Date Provider Diagnosis [facility] [address] [place] [address] 09/20/2024 Alana Epps Methamphetamine use disorder, mild, in early remission F15.10 ; Opioid use disorder F11.99 ; Routine general medical examination at a health care facility Z00.00 and Nicotine dependence with current use F17.[address] [place] [address] 09/20/2024 Ava Hernandez Methamphetamine use disorder, mild, in early remission F15.10 and Bipolar 1 disorder, depressed F31.[address] [place] [address] 09/21/2024 Kasey Ny Bipolar 1 disorder, depressed F31.9 [place] [address] [facility] [place] [address] 09/26/2024 Braxton Costa Thyroid nodule E04.1 ; Benign paroxysmal vertigo, bilateral H81.13 ; Systolic murmur I38 and Over weight E66.3 [place] [address] [place] [address] 10/13/2024 [place] [address] [place] [address] 09/19/2024 [facility] [place] [address] [place] [address] 09/20/2024 [place] [address] [facility] [place] [address] 09/29/2024 Alana Epps Opioid use disorder F11.99 Assessments Encounter Date Diagnosis (ICD Code) Assessment [...] or be administered own oral medications per [facility] protocols. Provided informed consent with understanding of [...] day 09/26/2024 Thyroid nodule (ICD-10 - E04.1) 09/29/2024 Opioid use disorder (ICD-10 - F11.99) 09/26/2024 Systolic murmur (ICD-10 - I38) 09/20/2024 Routine general medical examination at a [facility] care facility (ICD-10 - Z00.00) SUPR Programs: Based on an evaluation of [facility] Patient Placement Criteria, a recommendation [...] Bipolar 1 disorder, depressed (ICD-10 - F31.9) 09/20/2024 Nicotine dependence with current use (ICD-10 [...] Insured Coverage Start Date Coverage End Date [employer] [address] [place] [address] [id number] Jaycee Rouse Self - patient is the insured 3 [employer] [address] [place] [address] [id number] Jaycee Rouse Self - patient is the insured 5 [employer] [address] [place] [address] [id number] PadmaJaycee Self - patient is the insured 5 Medical (General) History Medical History History ICD Code Manic Depression Surgical History Surgery Date(Month/Year) 3 c-sections right hand has pins gall bladder removed Hospitalization History Reason Date(Month/Year) gateway, multiple times between 2023- 5 06/2024
[2024-10-15 15:01] LABS: Hematocrit 37.6 % (35.0-49.0); Hemoglobin 12.7 g/dL (12.0-15.0); Immature Granulocyte Percent A 0.1 % (0.0-0.0); Lymphocytes Absolute Auto 2.17 K/mm3 (1.10-4.50); Mean Corpuscular HGB Conc 33.8 g/dL (32-36); Mean Corpuscular Hemoglobin 30.8 pg (27.0-31.0); Mean Corpuscular Volume 91.3 fL (78.0-102.0); Nucleated Red Blood Cells Absolute Auto 0.00 K/mm3 (0.00-0.00); Nucleated Red Blood Cells Perc 0.0 % (0-0.0); Platelet Count Result 474 K/mm3 (150-420); Red Blood Count 4.12 M/mm3 (4.20-5.40); White Blood Count 7.8 K/mm3 (4.8-10.8)
[2024-10-15] MEDS: SODIUM CHLORIDE 0.9% IV 1,000 ML 999 ML IV CONT (15:10)
[2024-10-15 15:15] LABS: Acetaminophen < 10 ug/mL (10-30); Salicylate < 1.0 mg/dL (2-20)
[2024-10-15 15:17] LABS: Alanine Aminotransferase 24 U/L (6-35); Albumin Level 4.4 g/dL (3.5-5.1); Alkaline Phosphatase 92 U/L (38-126); Anion Gap 9 mmol/L (4-12); Aspartate Amino Transferase 32 U/L (14-36); Bilirubin,Total 0.9 mg/dL (0.2-1.3); Blood Urea Nitrogen 13 mg/dL (7-17); CRP < 0.5 mg/dL (<1.0); Calcium 9.7 mg/dL (8.4-10.2); Carbon Dioxide 25 mmol/L (22-30); Chloride 105 mmol/L (98-107); Creatine Kinase 183 U/L (30-135); Estimated CRCL calculation 55 ml/min; Estimated Glomerular Filt Rate > 60; Glucose 88 mg/dL (65-110); Osmolality Calculated 287 mOsm/kg (285-295); Potassium 3.8 mmol/L (3.4-5.0); Sodium 139 mmol/L (137-145); Total Protein 7.3 g/dL (6.3-8.2)
[2024-10-15 15:25] LABS: Troponin I < 0.012 ng/mL (0.000-0.034)
[2024-10-15 15:30] VITALS: BP 131/80; PULSE 86; RESP 18; O2SAT 98
--- NOTE | 2024-10-15 15:48 | PC.NURSE ---
mother here, updated with permission from pt.
[2024-10-15 15:51] VITALS: BP 127/71; PULSE 101; RESP 18; O2SAT 100
[2024-10-15 16:06] LABS: Cannabinoid Screen Urine Negative (Negative)
--- NOTE | 2024-10-15 16:15 | PC.NURSE ---
pt complaint of indigestion from eating oranges. dr cantrell notified.
[2024-10-15 16:18] VITALS: PULSE 85; RESP 13
[2024-10-15] MEDS: MAG HYDROX/ALUMINUM HYD/SIMETH 30 ML, PHENobarb/HYOSCY/ATROPINE/SCOP 32.4 MG, LIDOCAINE... PO (16:21)
[2024-10-15 16:26] VITALS: BP 109/71; O2SAT 100
--- NOTE | 2024-10-15 16:33 | PC.NURSE ---
pt removed cardiac monitoring device, i dont want it on. explained need and risks. pt continued to refuse.
--- NOTE | 2024-10-15 16:39 | ED_ITS ---
HPI - Chest Pain General Chief Complaint: Chest Pain Stated Complaint: chest pain Time Seen by Provider: 10/15/24 14:43 Source: patient, family and EMS Mode of arrival: ambulatory Limitations: no limitations History of Present Illness HPI narrative: this is a 44-year-old female with a history of meth abuse was brought in by EMS with chest pain, patient denied any other symptoms but did state that she took meth earlier today and felt like it was laced with strycnine, patient had no nausea vomiting no abdominal pain no shortness of breath no audible wheezing no fever chills no diarrhea constipation vitals were stable. MD complaint: chest discomfort Onset (ago): hour(s) Timing of current episode: episodic Onset: during rest Pain location: epigastric Severity: mild Quality: aching Related Data Home Medications ?Medication ?Instructions ?Recorded ?Confirmed ?Last Taken ?Type aripiprazole 5 mg tablet (Abilify) 5 mg PO DAILY 05/1705/17/24 Unknown History lorazepam 0.5 mg tablet (Ativan) 0.5 mg PO Q6H PRN anx iety 05/17/24 05/17/24 Unknown History trazodone 50 mg tablet mg 05/17/24 Unknown History Allergies Allergy/AdvReac Type Severity Reaction Status Date / Time Penicillins Allergy Severe Difficulty Verified 09/27/24 20:29 Swallowing codeine AdvReac Swelling Verified 09/27/24 20:29 Review of Systems 2 Review of Systems: All systems reviewed & are unremarkable except as noted in HPI and below PMFSH Past Medical History Medical History Drug abuse Tooth decay Surgical History Surgical History History of x3 Family History Family History Father No problems noted. Father Lung cancer Mother Heart disease Social History Social History Years smoked: 20 Smoking status: Current every day smoker Tobacco type: cigarettes Second hand tobacco smoke exposure: Yes Alcohol intake: former Substance use: former Substance use type: methamphetamine Gender identity (if verbalized by the patient): Female Spiritual care concerns: No Exam 2 Const: General: no acute distress Nutritional Appearance: well nourished Orientation/consciousness: patient oriented x3 Limitations: no limitations Eyes: Conjunctivae: conjunctivae normal Pupils: Equal, round and reactive pupils present EOM: EOMs intact bilaterally Direct Ophthalmoscopy: no photophobia Neck: Neck: normal visual inspection, no lymphadenopathy and no meningeal signs Chest: Chest palpation & inspection: normal inspection of the chest Resp: Effort & Inspection: normal respiratory effort Auscultation: clear to auscultation bilaterally Cardio: Rate: regular rate Rhythm: regular rhythm GI: GI Palp: Yes Soft to palpation Auscultation: normal bowel sounds : General: Yes bladder normal to palpation Urinary Catheter: Urinary Catheter: patent and draining Back/Spine/Pelvis: Back: no CVA tenderness Skin: General skin exam: normal color Rashes: no rashes Wounds: no wounds Neuro: General: patient oriented x3, moves all extremities, no meningeal signs and no focal motor deficits Extrem: General: normal to inspection Psych: Affect: Anxious affect present Course Course Emergency Course: Patient's vitals were stable with a blood pressure 130/83 heart rate of 86 respiratory rate of 18 afebrile with O2 sats 100% room air patient did receive IV fluids EKG performed showed a normal sinus rhythm with no ST or T changes chest x-ray performed showed no acute abnormalities blood work performed with no acute abnormalities urine drug screen did show that she had amphetamines positive. The patient did receive a GI cocktail for dyspepsia. Patient states that the GI helpful. Person to find the patient to receive consequences venous facility at this time. The benefits of continued med treatment and stabilization, alternatives if any, to continue treatment and hospitalization, if applicable. I have not identified any psychosis, any mental illness or drugs or medical illnesses alters decision-making capacity. Vital Signs Vital signs: Vital Signs Temperature 36.9 C 10/15/24 14:30 Pulse Rate 86 10/15/24 14:30 Respiratory Rate 18 10/15/24 14:30 Blood Pressure 130/83 10/15/24 14:30 Pulse Oximetry 100 10/15/24 14:30 Oxygen Delivery Room Air 10/15/24 14:30 Temperature 36.9 C 10/15/24 14:30 Pulse Rate 85 10/15/24 16:18 Respiratory Rate 13 10/15/24 16:18 Blood Pressure 109/71 10/15/24 16:26 Pulse Oximetry 100 10/15/24 16:26 Oxygen Delivery Room Air 10/15/24 16:26 MDM - Chest Pain Lab Data 10/15/24 14:55 10/15/24 14:55 Labs: Lab Results 10/15/24 10/15/24 10/15/24 Range/Units 14:55 14:56 15:40 WBC 7.8 (4.8-10.8) K/mm3 RBC 4.12 L (4.20-5.40) M/mm3 Hgb 12.7 (12.0-15.0) g/dL Hct 37.6 (35.0-49.0) % MCV 91.3 (78.0-102.0) fL MCH 30.8 (27.0-31.0) pg MCHC 33.8 (32-36) g/dL RDW 12.5 (11.6-14.4) % Plt Count 474 H (150-420) K/mm3 MPV 9.6 (9.2-11.8) fl Immature Gran % (Auto) 0.1 H (0.0-0.0) % Neut % (Auto) 62.8 (50.0-70.0) % Lymph % (Auto) 27.7 (18.0-42.0) % [place] % (Auto) 7.7 (2.0-11.0) % Eos % (Auto) 0.8 L (1.0-6.0) % Baso % (Auto) 0.9 (0.0-1.0) % Lymph # (Auto) 2.17 (1.10-4.50) K/mm3 [place] # (Auto) 0.60 (0.10-0.90) K/mm3 Eos # (Auto) 0.06 (0.02-0.50) K/mm3 Baso # (Auto) 0.07 (0.00-0.10) K/mm3 Abs Immat Gran (auto) 0.01 H (0.00-0.00) K/mm3 Absolute Neuts (auto) 4.91 (1.70-7.20) K/mm3 Absolute Nucleated RBC 0.00 (0.00-0.00) K/mm3 Nucleated RBC % 0.0 (0-0.0) % Sodium 139 (137-145) mmol/L Potassium 3.8 (3.4-5.0) mmol/L Chloride 105 (98-107) mmol/L Carbon Dioxide 25 (22-30) mmol/L Anion Gap 9 (4-12) mmol/L BUN 13 (7-17) mg/dL Creatinine 0.88 (0.7-1.0) mg/dL Estim Creat Clear Calc 55 ml/min Estimated GFR > 60 (59 - ) Glucose 88 (65-110) mg/dL Calculated Osmolality 287 (285-295) mOsm/kg Lactic Acid 0.7 (0.4-2.0) mmol/L Calcium 9.7 (8.4-10.2) mg/dL Total Bilirubin 0.9 (0.2-1.3) mg/dL AST 32 (14-36) U/L ALT 24 (6-35) U/L Alkaline Phosphatase 92 (38-126) U/L Total Creatine Kinase 183 H (30-135) U/L Troponin I < 0.012 (0.000-0.034) ng/mL C-Reactive Protein < 0.5 (<1.0) mg/dL Total Protein 7.3 (6.3-8.2) g/dL Albumin 4.4 (3.5-5.1) g/dL Salicylates < 1.0 L (2-20) mg/dL Urine Opiates Screen Negative (Negative) Urine Methadone Screen Negative (Negative) Acetaminophen < 10 L (10-30) ug/mL Ur Barbiturates Screen Negative (Negative) Ur Phencyclidine Scrn Negative (Negative) Ur Amphetamine Screen Positive A (Negative) U Benzodiazepines Scrn Negative (Negative) Urine Cocaine Screen Negative (Negative) U Cannabinoids Screen Negative (Negative) Ethyl Alcohol < 10 (<10) mg/dL Critical Care Time Critical Care Time Critical Care Time: No Discharge Plan Discharge Clinical Impression: Atypical chest pain Patient Disposition: Left Against Medical Advice Condition: Stable Instructions: Chest Pain (ED) Patient Language: Divehi Prescriptions: No Action trazodone 50 mg tablet aripiprazole [Abilify] 5 mg tablet 5 mg PO DAILY lorazepam [Ativan] 0.5 mg tablet 0.5 mg PO Q6H PRN (Reason: anxiety) azithromycin 500 mg tablet See Rx Instructions .ROUTE .COMPLEX Qty: 3 0RF Rx Instructions: For 500 mg dose pack: take 500 mg once daily for 3 days prednisone 20 mg tablet 20 mg PO DAILY 3 Days Qty: 3 0RF ondansetron 4 mg tablet,disintegrating 4 mg PO Q8H PRN (Reason: nausea and vomiting) Qty: 14 0RF levofloxacin 500 mg tablet 500 mg PO DAILY Qty: 6 0RF bupropion HCl [Wellbutrin SR] 150 mg tablet sustained-release 12 hr 150 mg PO QAM Qty: 30 0RF Follow-up/Referrals: PHYSICIAN,VEHICLE INSPECTOR [Primary Care Provider, Internal Medicine] Time of Disposition: 16:44
--- NOTE | 2024-10-15 16:45 | PC.NURSE ---
poison control called , informed pt ama. hernandez informed.
== END 2024-10-15 16:42 | disposition left against medical advice (07) ==
PROVIDERS: Emergency Provider Emergency Medicine; Referring Provider Internal Medicine
DX: R07.89 Other chest pain (principal); F15.10 Other stimulant abuse, uncomplicated; F17.210 Nicotine dependence, cigarettes, uncomplicated
CPT/HCPCS: 36415; 71045; 80053; 80143; 80179; 80307; 82077; 82550; 83605; 84484; 85025; 86140; 93005; 96360; 99284; A9270; J7030

== ENCOUNTER 2024-10-16 10:08 | Emergency (ER) | payer OTHER, SELFPAY ==
--- OUTSIDE RECORDS SUMMARY | 2024-09-28 05:40 | XMS_ITS ---
Author Organization [facility] Address [address] [place] [address] Care Team Providers Care Automotive Manufacturer Name Role Phone Alana Epps Primary Care Provider [phone] Ana Verma [phone] REASON FOR VISIT new patient Social History Sex Assigned At : Social History Observation Description Sex Assigned At Female Encounters Encounter Location Date Provider Diagnosis Replaced By [facility] [address] [place] [address] 09/28/2024 Ana Verma Plan Of Treatment No Information Progress Notes * PADMA BradsyedDOB:1980 (44 yo F)Acc No.[id number]:09/28/2024 UNLOCKED PROGRESS NOTE Patient: Jaycee AYALA Provider: ALCON Nash, SAFETY SECURITY OFFICER, PMHNP-BC :1980 A ge:44 Y S ex:Female Date:09/28/2024 Address:[address] [facility] Pcp:Alana Epps Subjective: * Chief Complaints: * 1 . New patient. * Medical History: Objective: * Vitals: Assessment: Plan: * Treatment: * * Electronic signature of Anton Verma on 10/16/2024 at 10:11 AM CDT Sign off status: Pending * Provider: Peg Verma MSN, SAFETY SECURITY OFFICER, PMHNP-BC Date: 0 09/28/2024 Generated for Printing/Faxing/eTransmitting on: 0 10/16/2024 10:11 AM CDT
--- OUTSIDE RECORDS SUMMARY | 2024-09-29 04:20 | XMS_ITS ---
Author Organization [facility] Address [address] [place] [address] Care Team Providers Care Batch Analyst Name Role Phone Alana Epps Primary Care Provider [phone] Leandro Harris [phone] REASON FOR VISIT new patient Social History Sex Assigned At : Social History Observation Description Sex Assigned At Female Encounters Encounter Location Date Provider Diagnosis [address] [place] [address] 09/29/2024 Leandro Harris Plan Of Treatment No Information Progress Notes * PADMABradsyedDOB:1980 (44 yo F)Acc No.[id number]:09/29/2024 UNLOCKED PROGRESS NOTE Patient: Jaycee AYALA Provider: Sasha Harris DNP, PMHNP-BC :1980 A ge:44 Y S ex:Female Date:09/29/2024 [facility] [facility] Pcp:Alana Epps Subjective: * Chief Complaints: * 1 . New patient. * Medical History: Objective: * Vitals: Assessment: Plan: * Treatment: * * Electronic signature of Kanu Harris APRN, [id number] on 10/16/2024 at 10:11 AM CDT Sign off status: Pending * Provider: Sasha Harris DNP, PMHNP-BC Date: 09/29/2024 Generated for Roland felder/Karina/eTransmitting on: 10/16/2024 10:11 AM CDT
--- OUTSIDE RECORDS SUMMARY | 2024-10-06 03:20 | XMS_ITS ---
Author Organization [facility] Address [address] [place] [address] Care Team Providers Care Yarn Texturing Machine Operator Name Role Phone Alana Epps Primary Care Provider REASON FOR VISIT 1 week f/u Social History Sex Assigned At : Social History Observation Description Sex Assigned At Female Encounters Encounter Location Date Provider Diagnosis [place] [address] [place] [address] 10/06/2024 Alana Epps Plan Of Treatment No Information Progress Notes * Jaycee ROUSEDOB:1980 (44 yo F)Acc No.[id number]:10/06/2024 UNLOCKED PROGRESS NOTE Patient: Jaycee AYALA Provider: Sasha Epps MSN, CALCULATING MACHINE OPERATOR, DICTAPHONE TYPIST-C :1980 A ge:44 Y S ex:Female Date:10/06/2024 Address[address] [facility] Subjective: * Chief Complaints: * 1 . 1 week f/u. * Medical History: Objective: * Vitals: Assessment: Plan: * Treatment: * Care Plan Details* * Electronic signature of Guera Epps APRN, [id number] on 10/16/2024 at 10:11 AM CDT Sign off status: Pending * Provider: Sasha Epps MSN, CALCULATING MACHINE OPERATOR, DICTAPHONE TYPIST-C Date: 0 10/06/2024 Generated for Roland felder/Karina/eTransmitting on: 10/16/2024 10:11 AM CDT
[2024-10-16] VITALS (33 sets, daily range): BP systolic 123–178; BP diastolic 71–91; PULSE 76–103; RESP 12–23; TEMP 36.9; O2SAT 97–100
--- NOTE | ~2024-10-16 | XR_ITS ---
EXAMINATION: XR chest 2V 10/16/2024 10:33 INDICATION: Shortness of breath and chest pain PROCEDURE: 2 view chest COMPARISON: Comparison to multiple prior studies sequentially, with oldest reviewed study dated 03/23/2024. FINDINGS: The lungs are clear. The cardiomediastinal silhouette is within normal limits. There are no pleural effusions. There is no pneumothorax suspected. Prominent bilateral nipple shadows. IMPRESSION: 1: NO ACUTE CARDIOPULMONARY DISEASE. Reviewed, dictated and finalized at location O.
--- OUTSIDE RECORDS SUMMARY | 2024-10-16 10:11 | XMS_ITS | Clinical Summary ---
Author Organization [facility] Address [address] [place] [address] Care Team Providers Care Offshoring Manager Name Role Phone Francisco Javier Ivan MD Primary Care Provider [phone] Allergies Active Allergy Reactions Criticality Noted Date [...] drink = 0.6 oz pur e alcohol) [facility] Utilities Answer Date Recorded In the past 12 months has e [employer] gas, oil, or water [employer] threatened to shut off services in your [...] were you homeless or living in a care home (including now)? Yes 10/13/2023 Comments No [...] VARGHESE NON-REACT VARGHESE 10/13/2023 1:41 PM CDT [facility] Comment:HBsAg NOT DETECTED. HEP B [...] [facility] [address] [place] [address], [id number] from Last 3 Months or Most Recently Relevant to Health Maintenance [place] [address] [place] [address] Advance Directives Documents on File Type Date Recorded Patient Parking Lot Spotter Expl anation Advance Directives and Living Will 05/10/2015 12:00 AM ADVANCED DIRECTIVES Advance Directives and Living Will 08/06/2013 12:00 AM ADVANCED DIRECTIVES Advance Directives and Living Will 12/28/2012 12:00 AM ADVANCED DIRECTIVES * Full Code (Latest Code Status on File) Date Activated Date Inactivated Comments 10/13/2023 5:53 AM 10/14/2023 10:50 AM Care Teams Offshoring Manager Relationship Specialty Start Date End Date Francisco Javier Ivan MD [address] [address] PCP - General FAMILY PRACTICE 06/05/24
--- OUTSIDE RECORDS SUMMARY | 2024-10-16 10:11 | XMS_ITS | Patient Health Record ---
Author Organization Counts include 234 beds at the [facility] Address [address] [place] [address] Care Team Providers Care Lather Apprentice Name Role Phone Supriya Naziasyed Primary Care Provider Kasey Ny Unavailable [phone] Ava Hernandez Unavailable [phone] Leandro Harris Unavailable [phone] Ana Verma Unavailable [phone] Braxton Costa Unavailable [phone] Allergies Allergen (clinical drug ingredient) Drug/Non Drug Allergy documented on EMR Reaction Allergy Type Onset Date Status Penicillin rash Drug Allergy Active Results Component Value Reference Range Notes Test, Urine Reviewed date:09/20/2024 03:01:25 PM Interpretation: Performing Lab: Notes/Report: Test, Urine neg Negative - Negative HIV Screen *HIV 1, 2 Ab, p24 Ag ([id number]) Reviewed date:09/21/2024 02:19:40 PM Interpretation:Normal Performing Lab:[facility], [address] [facility], Phone - [phone], Director - [facility] Notes/Report: HIV Ab/p24 Ag Screen Non Reactive Non Reactive HIV-1/HIV-2 antibodies and HIV-1 p24 antigen were NOT detected. There is no laboratory evidence of HIV infection. HIV Negative CMP 14 Comprehensive Metabol ic Panel* Reviewed date:09/21/2024 02:19:40 PM Interpretation:Normal Performing Lab:[facility], [address] [facility], Phone - [phone], Director - PhDHermani Notes/Report: Glucose 73 70-99 mg/dL BUN 14 [...] Reviewed date:09/21/2024 02:19:40 PM Interpretation:Normal Performing Lab:[facility] [place], [address] [facility] [place], Phone - [phone], Director - Eryn Notes/Report: WBC 5.9 3.4-10.8 [...] neg BUP neg TCA neg FTY neg QuantiFERON-TB Gold Plus ([id number]) Reviewed date:09/22/2024 02:30:29 PM Interpretation:Normal Performing Lab:[facility], [address] [facility] [place], Phone - [phone], Director - [facility] Notes/Report: QuantiFERON Incubation Incubation performed. QuantiFERON-TB Gold [...] Nil Value 0.02 QuantiFERON Mitogen Value >10.00 Breathalyzer Reviewed date:09/20/2024 03:01:30 PM Interpretation: Performing [...] Risk Notes Problem Benign paroxysmal positional vertigo (286727653) Benign paroxysmal vertigo, bilateral (H81.13) Active confirmed Problem Thyroid nodule (532105826) Thyroid nodule (E04.1) Active confirmed Problem Overweight (497546462) Over weight (E66.3) Active confirmed Problem Systolic murmur (74163975) Systolic murmur (I38) Active confirmed Problem Bipolar disorder (44589169) Bipolar 1 disorder, depressed (F31.9) Active confirmed Problem Stimulant abuse (995605972) Methamphetamine use disorder, mild, 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 confirmed Problem Opioid use disorder (2304464124) Opioid use disorder (F11.99) Active confirmed Problem Tobacco user (686586335) Nicotine dependence with current use (F17.200) Active [...] 98/58 Encounters Encounter Location Date Provider Diagnosis [facility] [address] [place] [address] 09/20/2024 Alana Epps Methamphetamine use disorder, mild, in early remission F15.10 ; Opioid use disorder F11.99 ; Routine general medical examination at a health care facility Z00.00 and Nicotine dependence with current use F17.[address] [place] [address] 09/20/2024 Ava Hernandez Methamphetamine use disorder, mild, in early remission F15.10 and Bipolar 1 disorder, depressed F31.[address] [place] [address] 09/21/2024 Kasey Powers Bipolar 1 disorder, depressed F31.9 [place] [address] [place] [address] 09/26/2024 Braxton Costa Thyroid nodule E04.1 ; Benign paroxysmal vertigo, bilateral H81.13 ; Systolic murmur I38 and Over weight E66.3 [place] [address] [place] [address] 10/13/2024 [place] [address] [place] [address] 09/19/2024 [place] [address] [place] [address] 09/20/2024 [place] [address] [facility] [address] 09/29/2024 Alana Epps Opioid use disorder F11.99 Assessments Encounter Date Diagnosis (ICD Code) Assessment Notes Treatment Notes Treatment Clinical Notes Section Notes 09/21/2024 Bipolar 1 disorder, depressed (ICD-10 - F31.9) Start olanzapine to help with mood instability and sleep. Olanzapine 2.5mg po PRN daily for anxiety. 10mg scheduled po QHS. Labs completed recently. May self-administer medications or be administered own oral medications per [place] protocols. Provided informed consent with understanding of side effects, adverse effects, risks and benefits as well as alternative treatments as previously discussed and with the above recommended medications & other aspects of the treatment program. Agrees to return sooner if symptoms worsen or suicidal or homicidal ideations occur. 09/29/2024 Opioid use disorder (ICD-10 - F11.99) 09/26/2024 Benign paroxysmal vertigo, bilateral (ICD-10 - [...] 09/26/2024 Thyroid nodule (ICD-10 - E04.1) 09/20/2024 Methamphetamine use disorder, mild, in early remission (ICD-10 - F15.10) 09/20/2024 Methamphetamine use disorder, mild, in early remission (ICD-10 - F15.10) 09/20/2024 Opioid use disorder (ICD-10 - F11.99) 09/20/2024 Routine general medical examination at a health care facility (ICD-10 - Z00.00) SUPR Programs: Based on an evaluation of [facility] Patient Placement Criteria, a recommendation for placement [...] pain/redness/swell ing, or if soaking through bandages. 09/26/2024 Systolic murmur (ICD-10 - I38) 09/20/2024 Bipolar 1 disorder, depressed (ICD-10 - F31.9) 09/26/2024 Over weight (ICD-10 - E66.3) 09/20/2024 Nicotine dependence with current use (ICD-10 - F17.200) 09/20/2024 Other Clinician met w ith client [...] Insured Coverage Start Date Coverage End Date [employer] [address] [place] [address] [id number] Jaycee Rouse Self - patient is the insured 3 [employer]ATTLE MANA[employer] [address] [place] [address] [id number] Jaycee Rouse Self - patient is the insured 5 [employer] [address] [place] [address] [id number] PadmaJaycee Self - patient is the insured 5 Medical (General) History Medical History History ICD Code Manic Depression Surgical History Surgery Date(Month/Year) 3 c-sections right hand has pins gall bladder removed Hospitalization History Reason Date(Month/Year) gateway, multiple times between 2023- 5 06/2024
--- OUTSIDE RECORDS SUMMARY | 2024-10-16 10:11 | XMS_ITS | Clinical Summary ---
Author Organization [facility] Address [address] [place] [address] Care Team Providers Care Shift Superintendent Name Role Phone Christofer Stewart MD Primary [...] cessation with goal of being tobacco free Encounters Date Type Department Care Team Description 09/18/2024 2:48 PM CDT - 09/18/2024 3:17 PM CDT Emergency [facility] Emergency Department [address] [place] [address] Discharge Disposition: Left without being seen 09/18/2024 Documentation [facility] Warm Hand Off Program [address] [place], [place] [phone] Trisha Marie from Last 3 Months Surgical History Surgery Date Site/Laterality Comments HAND SURGERY Social History Tobacco Use Types Packs/Day Years Used Date Smoking Tobacco: Every Day Cigarettes 1.3 12.1 Started: 09/23/2012 Tobacco Cessation:Ready to Q uit: [...] making you feel afraid or unsafe? 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 Gender Identity Not on file Sexual Orientation Not on file Obstetrics History Para Term AB IAB SAB Ectopic Multiple Livin g Live Births 9 2 2 6 Date Outcome GA Total Labor Labor/2nd/3rd Weight Sex Type Anes PTL Pati A1 A5 Name Clin IAB IAB Last Filed Vital Signs Vital Sign Reading Time Taken Comments Blood Pressure 112/70 09/18/2024 1:01 PM CDT Pulse 90 09/18/2024 1:01 PM CDT Temperature 36.8 C (98.2 F) 09/18/2024 1:01 PM CDT Respiratory Rate 18 09/18/2024 1:01 PM CDT Oxygen Saturation 100% 09/18/2024 1:01 PM CDT Inhaled Oxygen Concentration - - Weight 47.2 kg (104 lb) 09/18/2024 1:01 PM CDT Height 154.9 cm (5' 1) 09/18/2024 1:01 PM CDT Body Mass Index 19.65 09/18/2024 1:01 PM CDT Plan of Treatment Health Maintenance Due Date Last Done Comments Breast Cancer Screening-Mammogram 1982 Cervical Cancer Screening 1982 Hepatitis C Screening 1982 Varicella Vaccines (1 of 2 - 13+ 2-dose series) 1995 Pneumococcal vaccine <65 (1 of 2 - PCV) 2001 02/24/2016 HPV Vaccines (1 - 3-dose SCD M series) 2009 Depression Screening 06/22/2024 06/23/2023 Regular Well Visit/Exam 18-64 06/22/2024 06/23/2023 Influenza Vaccine (#1) 2024 9, 04/05/2014, 02/22/2013 DTaP/Tdap/Td Vaccine (6 - Td or Tdap) 04/21/2029 04/21/2019, 12/07/2016, 02/24/2016, Additional history exists Hepatitis B Screening Completed 01/27/2019, 019 Procedures Procedure Name Priority Date/Time Associated Diagnosis Comments DRUGS OF ABUSE SCREEN, URINE WITHOUT CONFIRMATION STAT 09/18/2024 1:07 PM CDT from Last 3 Months Results * (ABNORMAL) Drugs of Abuse Screen, Urine without Confirmation (09/18/2024 1:07 PM CDT) Amphetamine, ur Screen Positive, presumptive (A) CutOff 500ng/mL [facility] ([facility]) Comment: Interpretive Data - Amphetamines: Samples containing greater than 500 ng/mL d-methamphetamine or other cross-reacting amphetamine compounds are reported as positive. Amphetamine immunoassays are subject to significant false positive rates due to cross-reactivity of non-amphetamine drugs. Confirmatory testing required for definitive results. Current Interpretive Data was last reviewed 2022. Barbiturates, ur Not Detected CutOff 200ng/mL [facility] ([facility]) Comment: Interpretive Data - Barbiturates: Samples containing greater than 200 ng/mL secobarbital or other cross-reacting barbiturate compounds are reported as positive. False positive and false negative results are possible. Confirmatory testing required for definitive results. Current Interpretive Data was last reviewed 2022. Benzodiazepines, ur Not Detected CutOff 100ng/mL [facility] ([facility]) Comment: Interpretive Data - Benzodiazepines: Samples containing greater than 100 ng/mL nordiazepam or other cross-reacting compounds are reported as positive. False positive and false negative results are possible. Confirmatory testing required for definitive results. Current Interpretive Data was last reviewed 2022. Cannabinoids, ur Not Detected CutOff 50 ng/mL [facility] ([place]) Comment: Interpretive Data - Cannabinoids: Samples containing greater than 50 ng/mL delta-9 THC -COOH or other cross- reacting compounds are reported as positive. False positive and false negative results are possible. Confirmatory testing required for definitive results. Current Interpretive Data was last reviewed 2022. Cocaine, ur Not Detected CutOff 150ng/mL [facility] ([place]) Comment: Interpretive Data - Cocaine: Samples containing greater than 150 ng/mL benzoylecgonine or other cross- reacting compounds are reported as positive. False positive and false negative results are possible. Confirmatory testing required for definitive results. Current Interpretive Data was last reviewed 2022. Fentanyl, Ur Not Detected CutOff 5 ng/mL [facility] ([place]) Comment: Interpretive Data - Fentanyl: Samples containing greater than 5 ng/mL norfentanyl, fentanyl, or other cross-reacting fentanyl compounds are reported as positive. False positive and false negative results are possible. Confirmatory testing required for definitive results. Current Interpretive Data was last reviewed 2023. Methadone, ur Not Detected CutOff 300ng/mL [facility] ([place]) Comment: Interpretive Data - Methadone: Samples containing greater than 300 ng/mL d,l-methadone or other cross-reacting compounds are reported as positive. False positive and false negative results are possible. Confirmatory testing required for definitive results. Current Interpretive Data was last reviewed 2022. Opiates, ur Not Detected CutOff 300ng/mL [facility] ([place]) Comment: Interpretive Data - Opiates: Samples containing greater than 300 ng/mL morphine or other cross-reacting compounds are reported as positive. False positive and false negative results are possible. Confirmatory testing required for definitive results. Current Interpretive Data was last reviewed 2022. Oxycodone, ur Not Detected CutOff 100ng/mL [facility] ([facility]) Comment: Interpretive Data - Oxycodone: Samples containing greater than 100 ng/mL oxycodone or other cross-reacting compounds are reported as positive. False positive and false negative results are possible. Confirmatory testing required for definitive results. Current Interpretive Data was last reviewed 2022. Phencyclidine, ur Not Detected CutOff 25 ng/mL [facility] ([place]) Comment: Interpretive Data - Phencyclidine: Samples containing greater than 25 ng/mL phencyclidine or other cross-reacting compounds are reported as positive. False positive and false negative results are possible. Confirmatory testing required for definitive results. Current Interpretive Data was last reviewed 2022. Urine Creatinine 87 mg/dL [facility] ([place]) Comment: Interpretive Data Urine Creatinine: < 10 mg/dL is extremely dilute = or > 10 but < 20 mg/dL is dilute = or > 20 mg/dL is normal Current Interpretive Data was last revised on 2017. Urine 09/18/2024 1:07 PM CDT 09/18/2024 1:12 PM CDT Narrative [facility] ([place]) - 09/18/2024 1:39 PM CDT Drug of Abuse screening is performed by immunoassay for medical purposes only. This is not to be used for Pain Management purposes. Tre Roche MD LAB URINE ORDERABLES Final Res ult [facility] ([place]) 1 [facility] Department [place] [address] from Last 3 [place] [address] [facility] [place] [address] [facility] Advance Directives For more information, please contact: [phone] * Full Code (Latest Code Status on File) Date Activated Date Inactivated Comments 10/20/2023 12:17 PM 10/20/2023 8:58 PM Care Teams Shift Superintendent Relationship Specialty Start Date End Date Christofer Stewart MD PCP - General Family Medicine 06/23/23
--- OUTSIDE RECORDS SUMMARY | 2024-10-16 10:11 | XMS_ITS | Encounter Summary ---
Author Organization [facility] Address [address] [place] [id number] Care Team Providers Care Fisher Name Role Phone None, Provider Primary Care Provider Francisco Javier Santana MD Primary Care Provider [phone] Encounter Details Date Type Department Care Team (Late st Contact Info) Description 07/31/2018 Abstract [facility] CONVERSION [address] [place] [address] , Generic Conversion, Social History Tobacco Use [...] on filedocumented in this encounter Care Teams Fisher Relationship Specialty Start Date End Date None, Provider, PCP - General UNKNOWN PHYSICIAN SPECIALTY 07/13/23 06/04/24 Francisco Javier Ivan MD [address] [place] [id number] PCP - General FAMILY PRACTICE 06/05/24 documented as of this encounter
--- NOTE | 2024-10-16 10:12 | ED_ITS ---
HPI - Psych General Chief Complaint: Shortness of Breath/Dyspnea Stated Complaint: shortness of breath Time Seen by Provider: 10/16/24 10:12 Source: patient Mode of arrival: ambulatory Limitations: no limitations History of Present Illness HPI Narrative: patient is a 44-year-old female who has come to the emergency room yesterday and today concerns for poisoning of strychnine given to her yesterday per history. She said people are trying to kill her this week and have tried in the past. She came in a month ago or so for similar concerns and was found to be a negative evaluation. She is short of breath and feels like her lungs are filling up at this time. typically the patient uses methamphetamines. MD complaint: other ( Appears delusional on strychnine poisoning) Onset (ago): day(s) ( 2) Duration: constant History of same: Yes Relieving factors: none Exacerbating factors: drug use Context: recent drug abuse, not taking psychiatric medications ( Unclear) and significant life stressor Associated psychiatric symptoms: delusions Associated symptoms: shortness of breath Treatments prior to arrival: none If self harm: other ( none) Related Data Home Medications ?Medication ?Instructions ?Recorded ?Confirmed ?Last Taken ?Type aripiprazole 5 mg tablet (Abilify) 5 mg PO DAILY 05/1705/17/24 Unknown History lorazepam 0.5 mg tablet (Ativan) 0.5 mg PO Q6H PRN anx iety 05/17/24 05/17/24 Unknown History trazodone 50 mg tablet mg 05/17/24 Unknown History Allergies Allergy/AdvReac Type Severity Reaction Status Date / Time Penicillins Allergy Severe Difficulty Verified 09/27/24 20:29 Swallowing codeine AdvReac Swelling Verified 09/27/24 20:29 Review of Systems 2 Review of Systems: All systems reviewed & are unremarkable except as noted in HPI and below Constitutional: Constitutional: Reports no additional constitutional complaints Eyes: Eyes: Reports no additional eye complaints ENT: Reports system reviewed and no additional complaints, except as documented Cardiovascular: Cardiovascular: Reports no additional cardiovascular complaints Respiratory: Respiratory: Reports no additional respiratory complaints Gastrointestinal: Gastrointestinal: Reports no additional gastrointestinal complaints Genitourinary: Genitourinary: Reports no additional female genitourinary complaints Musculoskeletal: Musculoskeletal: Reports no additional musculoskeletal complaints Integumentary/Breasts: Skin/Breast: Reports system reviewed and no additional complaints, except as docu Neurologic: Reports system reviewed and no additional complaints, except as documented Psychiatric: Psychiatric: Reports no additional psychiatric complaints Endocrine: Endocrine: Reports no additional endocrine complaints Hematologic/Lymphatic: Hematologic/Lymphatic: Reports no additional hematologic/lymphatic complaints Allergic/Immunologic: Allergic/Immunologic: Reports no additional allergic/immunologic complaints PMFSH Past Medical History Medical History Drug abuse Tooth decay Surgical History Surgical History History of x3 Family History Family History Father No problems noted. Father Lung cancer Mother Heart disease Social History Social History Years smoked: 20 Smoking status: Current every day smoker Tobacco type: cigarettes Second hand tobacco smoke exposure: Yes Alcohol intake: former Substance use: former Substance use type: methamphetamine Gender identity (if verbalized by the patient): Female Spiritual care concerns: No Exam 2 Const: General: healthy appearing Nutritional Appearance: well nourished Orientation/consciousness: patient oriented x3 HENMT: Head: normal to inspection Ears: external ears normal F barak/Nose/Sinus: Normal external nose present Eyes: Conjunctivae: conjunctivae normal Pupils: Equal, round and reactive pupils present EOM: EOMs intact bilaterally Neck: Neck: normal visual inspection Chest: Chest palpation & inspection: normal inspection of the chest Resp: Effort & Inspection: normal respiratory effort and not labored A uscultation: clear to auscultation bilaterally and no crackles Cardio: Rate: tachycardic Rhythm: regular rhythm Heart sounds: no murmurs GI: Inspection: non-distended GI Palp: Yes Soft to palpation and No Tenderness to palpation present (GI) Auscultation: normal bowel sounds : General: Yes bladder normal to palpation Back/Spine/Pelvis: Back: no CVA tenderness Skin: General skin exam: normal color Rashes: no rashes Wounds: no wounds Neuro: General: patient oriented x3, moves all extremities and no meningeal signs Cranial nerves: Yes Nystagmus not present Speech: normal speech G ait exam (Neuro): Normal gait present Extrem: General: normal to inspection Psych: Mental Status: mental status grossly abnormal Affect: No normal affect Attitude: cooperative Other: patient has a fixed delusion at this time that she is being poisoned by her ex- and others in town with strychnine which is similar to a recent episode in the past month or so. Negative for suicide or homicide ideation. She is anxious and concerned this time. Course Vital Signs Vital signs: Vital Signs Temperature 36.9 C 10/16/24 10:09 Pulse Rate 103 H 10/16/24 10:09 Respiratory Rate 20 10/16/24 10:09 Blood Pressure 141/90 H 10/16/24 10:09 Pulse Oximetry 100 10/16/24 10:09 Oxygen Delivery Room Air 10/16/24 10:09 Temperature 36.9 C 10/16/24 10:09 Pulse Rate 93 10/16/24 13:45 Respiratory Rate 18 10/16/24 13:45 Blood Pressure 132/91 H 10/16/24 13:30 Pulse Oximetry 100 10/16/24 13:30 Oxygen Delivery Room Air 10/16/24 13:16 MDM - Psych MDM Narrative Medical decision making narrative: Patient is a 44-year-old female with known psychiatric problems here for concerns of strychnine poisoning by her ex- and others. We will do a reassurance evaluation at this time. Otherwise, she does not meet criteria for inpatient evaluation as she is not a harm to herself or others or a disturbance to the community. patient started having some chest pain and dyspepsia so we will do a GI cocktail again which worked yesterday for her symptoms. She had some continued on and off chest pains and troponin 2 was negative. At this time the patient is feeling better and she would like to be discharged at this time. 5 symptoms of strychnine poisoning is vomiting/diarrhea, abdominal pain, breathing difficulty, confusion or loss of consciousness, and seizures (patient's workup and symptoms do not correlate with this finding) Lab Data Attestation: I reviewed the patient's lab results. 10/16/24 10:44 10/16/24 10:44 Labs: Lab Results 10/16/24 10/16/24 10/16/24 Range/Units 10:21 10:44 12:20 WBC 6.1 (4.8-10.8) K/mm3 RBC 4.22 (4.20-5.40) M/mm3 Hgb 12.9 (12.0-15.0) g/dL Hct 38.4 (35.0-49.0) % MCV 91.0 (78.0-102.0) fL MCH 30.6 (27.0-31.0) pg MCHC 33.6 (32-36) g/dL RDW 12.4 (11.6-14.4) % Plt Count 437 H (150-420) K/mm3 MPV 9.5 (9.2-11.8) fl Immature Gran % (Auto) 0.2 H (0.0-0.0) % Neut % (Auto) 63.8 (50.0-70.0) % Lymph % (Auto) 27.5 (18.0-42.0) % [place] % (Auto) 6.9 (2.0-11.0) % Eos % (Auto) 0.8 L (1.0-6.0) % Baso % (Auto) 0.8 (0.0-1.0) % Lymph # (Auto) 1.67 (1.10-4.50) K/mm3 [place] # (Auto) 0.42 (0.10-0.90) K/mm3 Eos # (Auto) 0.05 (0.02-0.50) K/mm3 Baso # (Auto) 0.05 (0.00-0.10) K/mm3 Abs Immat Gran (auto) 0.01 H (0.00-0.00) K/mm3 Absolute Neuts (auto) 3.88 (1.70-7.20) K/mm3 Absolute Nucleated RBC 0.00 (0.00-0.00) K/mm3 Nucleated RBC % 0.0 (0-0.0) % Sodium 139 (137-145) mmol/L Potassium 3.9 (3.4-5.0) mmol/L Chloride 106 (98-107) mmol/L Carbon Dioxide 23 (22-30) mmol/L Anion Gap 10 (4-12) mmol/L BUN 10 (7-17) mg/dL Creatinine 0.94 (0.7-1.0) mg/dL Estim Creat Clear Calc 52 ml/min Estimated GFR > 60 (59 - ) Glucose 91 (65-110) mg/dL Calculated Osmolality 287 (285-295) mOsm/kg Calcium 9.6 (8.4-10.2) mg/dL Total Bilirubin 0.9 (0.2-1.3) mg/dL AST 32 (14-36) U/L ALT 24 (6-35) U/L Alkaline Phosphatase 93 (38-126) U/L Troponin I < 0.012 (0.000-0.034) ng/mL Total Protein 7.3 (6.3-8.2) g/dL Albumin 4.5 (3.5-5.1) g/dL Urine Color Cancelled Light yellow Urine Appearance Cancelled Clear Urine pH Cancelled 6.0 Ur Specific [place] Cancelled 1.015 Urine Protein Cancelled Negative Urine Glucose (UA) Cancelled Negative Urine Ketones Cancelled 3+ H Ur Blood (Man) Cancelled Trace-intact H Urine Nitrate Cancelled Negative Urine Bilirubin Cancelled Negative Urine Urobilinogen Cancelled 0.2 Leukocyte Esterase Rfl Cancelled Negative Urine RBC Cancelled Urine WBC Cancelled Urine WBC Clumps Cancelled Ur Squamous Epith Cells Cancelled Ur Transition Epith Cell Cancelled Ur Renal Epithelial Cell Cancelled [place] Biurate Crystals Cancelled Calcium Carbonate Cryst Cancelled Calcium Phosphate Cryst Cancelled Calcium Oxalate Crystal Cancelled Leucine Crystals Cancelled Cystine Crystals Cancelled Uric Acid Crystals Cancelled Triple Phos Crystals Cancelled Sulfonamide Crystals Cancelled Cholesterol Crystals Cancelled Talc Crystals Cancelled Tyrosine Crystals Cancelled Hippuric Acid Crystals Cancelled Other Crystals Cancelled Amorphous Sediment Cancelled Other Sediment Cancelled Urine Bacteria Cancelled Cellular Casts Cancelled Epithelial Casts Cancelled Fatty Casts Cancelled Hyaline Casts Cancelled Granular Casts Cancelled Waxy Casts Cancelled RBC Casts Cancelled WBC Casts Cancelled Urine Starch Cancelled Urine Mucus Cancelled Urine Trichomonas Cancelled Urine Yeast (Budding) Cancelled Ur Oval Fat Bodies Cancelled Urine Test Negative Urine Opiates Screen Negative (Negative) Urine Methadone Screen Negative (Negative) Ur Barbiturates Screen Positive A (Negative) Ur Phencyclidine Scrn Negative (Negative) Ur Amphetamine Screen Positive A (Negative) U Benzodiazepines Scrn Negative (Negative) Urine Cocaine Screen Negative (Negative) U Cannabinoids Screen Negative (Negative) 10/16/24 Range/Units 12:51 WBC (4.8-10.8) K/mm3 RBC (4.20-5.40) M/mm3 Hgb (12.0-15.0) g/dL Hct (35.0-49.0) % MCV (78.0-102.0) fL MCH (27.0-31.0) pg MCHC (32-36) g/dL RDW (11.6-14.4) % Plt Count (150-420) K/mm3 MPV (9.2-11.8) fl Immature Gran % (Auto) (0.0-0.0) % Neut % (Auto) (50.0-70.0) % Lymph % (Auto) (18.0-42.0) % [place] % (Auto) (2.0-11.0) % Eos % (Auto) (1.0-6.0) % Baso % (Auto) (0.0-1.0) % Lymph # (Auto) (1.10-4.50) K/mm3 [place] # (Auto) (0.10-0.90) K/mm3 Eos # (Auto) (0.02-0.50) K/mm3 Baso # (Auto) (0.00-0.10) K/mm3 Abs Immat Gran (auto) (0.00-0.00) K/mm3 Absolute Neuts (auto) (1.70-7.20) K/mm3 Absolute Nucleated RBC (0.00-0.00) K/mm3 Nucleated RBC % (0-0.0) % Sodium (137-145) mmol/L Potassium (3.4-5.0) mmol/L Chloride (98-107) mmol/L Carbon Dioxide (22-30) mmol/L Anion Gap (4-12) mmol/L BUN (7-17) mg/dL Creatinine (0.7-1.0) mg/dL Estim Creat Clear Calc ml/min Estimated GFR (59 - ) Glucose (65-110) mg/dL Calculated Osmolality (285-295) mOsm/kg Calcium (8.4-10.2) mg/dL Total Bilirubin (0.2-1.3) mg/dL AST (14-36) U/L ALT (6-35) U/L Alkaline Phosphatase (38-126) U/L Troponin I < 0.012 (0.000-0.034) ng/mL Total Protein (6.3-8.2) g/dL Albumin (3.5-5.1) g/dL Urine Color Urine Appearance Urine pH Ur Specific [place] Urine Protein Urine Glucose (UA) Urine Ketones Ur Blood (Man) Urine Nitrate Urine Bilirubin Urine Urobilinogen Leukocyte Esterase Rfl Urine RBC Urine WBC Urine WBC Clumps Ur Squamous Epith Cells Ur Transition Epith Cell Ur Renal Epithelial Cell [place] Biurate Crystals Calcium Carbonate Cryst Calcium Phosphate Cryst Calcium Oxalate Crystal Leucine Crystals Cystine Crystals Uric Acid Crystals Triple Phos Crystals Sulfonamide Crystals Cholesterol Crystals Talc Crystals Tyrosine Crystals Hippuric Acid Crystals Other Crystals Amorphous Sediment Other Sediment Urine Bacteria Cellular Casts Epithelial Casts Fatty Casts Hyaline Casts Granular Casts Waxy Casts RBC Casts WBC Casts Urine Starch Urine Mucus Urine Trichomonas Urine Yeast (Budding) Ur Oval Fat Bodies Urine Test Urine Opiates Screen (Negative) Urine Methadone Screen (Negative) Ur Barbiturates Screen (Negative) Ur Phencyclidine Scrn (Negative) Ur Amphetamine Screen (Negative) U Benzodiazepines Scrn (Negative) Urine Cocaine Screen (Negative) U Cannabinoids Screen (Negative) Imaging Data Attestation: I personally reviewed and interpreted this imaging study as follows: Radiologist's impression: chest x-ray is negative for acute process ECG Data EKG #1: Attestation: I personally reviewed and interpreted this ECG as follows: ECG completion date: 10/16/24 ECG completion time: 10:45 EKG Interpretation: normal rate, sinus rhythm, no ectopy, non-specific ST changes, normal QRS, normal QT and NL axis Discharge Plan Discharge Clinical Impression: Illicit drug use, Atypical chest pain, Delusional disorder Patient Disposition: Home Condition: Stable Instructions: Chest Pain (ED) Patient Language: Spanish Prescriptions: No Action trazodone 50 mg tablet aripiprazole [Abilify] 5 mg tablet 5 mg PO DAILY lorazepam [Ativan] 0.5 mg tablet 0.5 mg PO Q6H PRN (Reason: anxiety) azithromycin 500 mg tablet See Rx Instructions .ROUTE .COMPLEX Qty: 3 0RF Rx Instructions: For 500 mg dose pack: take 500 mg once daily for 3 days prednisone 20 mg tablet 20 mg PO DAILY 3 Days Qty: 3 0RF ondansetron 4 mg tablet,disintegrating 4 mg PO Q8H PRN (Reason: nausea and vomiting) Qty: 14 0RF levofloxacin 500 mg tablet 500 mg PO DAILY Qty: 6 0RF bupropion HCl [Wellbutrin SR] 150 mg tablet sustained-release 12 hr 150 mg PO QAM Qty: 30 0RF Follow-up/Referrals: UNKNOWN,DOCTOR [Primary Care Provider] Time of Disposition: 14:23
--- NOTE | 2024-10-16 10:19 | ECG_ITS ---
Test Date: 2024-10-16 10:39:17 Measurements Intervals [place] Rate: 78 P: 67 PA: 125 QRS: 63 QRSD: 94 T: 64 QT: 377 QTc: 431 Interpretive Statements SINUS RHYTHM LEFT ATRIAL ENLARGEMENT INCOMPLETE RIGHT BUNDLE BRANCH BLOCK MINIMAL Q WAES- INF/LAT LEADS BASELINE ARTIFACT- I, II, AVR, AVL, AVF, V3-V6 BORDERLINE ECG Compared to ECG 10/15/2024 14:57:24 NO SIGNIFICANT CHANGE Electronically Signed On 10-16-2024 15:15:30 CDT by Sonny Velasco D.O.
[2024-10-16 10:49] LABS: Hematocrit 38.4 % (35.0-49.0); Hemoglobin 12.9 g/dL (12.0-15.0); Immature Granulocyte Percent A 0.2 % (0.0-0.0); Lymphocytes Absolute Auto 1.67 K/mm3 (1.10-4.50); Mean Corpuscular HGB Conc 33.6 g/dL (32-36); Mean Corpuscular Hemoglobin 30.6 pg (27.0-31.0); Mean Corpuscular Volume 91.0 fL (78.0-102.0); Nucleated Red Blood Cells Absolute Auto 0.00 K/mm3 (0.00-0.00); Nucleated Red Blood Cells Perc 0.0 % (0-0.0); Platelet Count Result 437 K/mm3 (150-420); Red Blood Count 4.22 M/mm3 (4.20-5.40); White Blood Count 6.1 K/mm3 (4.8-10.8)
--- OUTSIDE RECORDS SUMMARY | 2024-10-16 11:02 | XMS_ITS | Clinical Summary ---
Author Organization [facility] Address [address] [place] [id number] Care Team Providers Care Superintendent Factory Name Role Phone Francisco Javier Ivan MD Primary Care Provider Allergies Active Allergy [...] drink = 0.6 oz pur e alcohol) [facility] Utilities Answer Date Recorded In the past 12 months has e new test company gas, oil, or water [employer] threatened to shut off services in your [...] in the past 12 m [facility], were you homeless or living in a correction (including now)? Yes 10/13/2023 Comments No Sex [...] VARGHESE NON-REACT VARGHESE 10/13/2023 1:41 PM CDT [facility] Comment:HBsAg NOT DETECTED. HEP B CORE IGM NON-REACT VARGHESE NON-REACT VARGHESE 10/13/2023 1:41 PM CDT [facility] Comment: IgM ANTI HBc NOT DETECTED. DOES NOT EXCLUDE THE POSSIBILITY OF EXPOSURE TO OR INFECTION WITH HBV. NO RETEST REQUIRED. HIGH DOSES OF BIOTIN MAY INTERFERE WITH THIS TEST RESULT. CORRELATION TO CLINICAL HISTORY AND PRESENTATION RECOMMENDED. HAV IGM NON-REACT VARGHESE NON-REACT VARGHESE 10/13/2023 1:41 PM CDT [facility] Comment: IgM ANTI HAV NOT DETECTED. DOES NOT EXCLUDE THE POSSIBILITY OF EXPOSURE TO OR INFECTION WITH HAV. LEVELS OF IgM ANTI HAV MAY BE BELOW THE CUTOFF IN EARLY INFECTION. HEPATITIS C AB NON-REACT VARGHESE NON-REACT VARGHESE 10/13/2023 1:42 PM CDT [facility] Comment: ANTIBODIES TO HCV NOT DETECTED. DOES NOT EXCLUDE THE POSSIBILITY OF EXPOSURE TO HCV. 10/13/2023 3:24 AM CDT Tenisha Cheema MD LABORATORY Final Result [facility] [address] [place] [address], [id number] from Last 3 Months or Most Recently Relevant to Health Maintenance [place] [address] [place] [address] Advance Directives Documents on File Type Date Recorded Patient Hatch Tender Expl anation Advance Directives and Living Will 05/10/2015 12:00 AM ADVANCED DIRECTIVES Advance Directives and Living Will 08/06/2013 12:00 AM ADVANCED DIRECTIVES Advance Directives and Living Will 12/28/2012 12:00 AM ADVANCED DIRECTIVES * Full Code (Latest Code Status on File) Date Activated Date Inactivated Comments 10/13/2023 5:53 AM 10/14/2023 10:50 AM Care Teams Superintendent Factory Relationship Specialty Start Date End Date Francisco Javier Ivan MD [address] [address] PCP - General FAMILY PRACTICE 06/05/24
--- OUTSIDE RECORDS SUMMARY | 2024-10-16 11:02 | XMS_ITS | Encounter Summary ---
Author Organization [facility] Address [address] [place] [address] Care Team Providers Care Strategic Analyst Name Role Phone None, Provider Primary Care Provider Francisco Javier Santana MD Primary Care Provider [phone] Encounter Details Date Type Department Care Team (Late st Contact Info) Description 07/31/2018 Abstract [facility] CONVERSION [address] [place] [address] , Generic Conversion, Social History Tobacco Use [...] on filedocumented in this encounter Care Teams Strategic Analyst Relationship Specialty Start Date End Date None, Provider, PCP - General UNKNOWN PHYSICIAN SPECIALTY 07/13/23 06/04/24 Francisco Javier Ivan MD [address] [place] [id number] PCP - General FAMILY PRACTICE 06/05/24 documented as of this encounter
[2024-10-16 11:03] LABS: Alanine Aminotransferase 24 U/L (6-35); Albumin Level 4.5 g/dL (3.5-5.1); Alkaline Phosphatase 93 U/L (38-126); Anion Gap 10 mmol/L (4-12); Aspartate Amino Transferase 32 U/L (14-36); Bilirubin,Total 0.9 mg/dL (0.2-1.3); Blood Urea Nitrogen 10 mg/dL (7-17); Calcium 9.6 mg/dL (8.4-10.2); Carbon Dioxide 23 mmol/L (22-30); Chloride 106 mmol/L (98-107); Estimated CRCL calculation 52 ml/min; Estimated Glomerular Filt Rate > 60; Glucose 91 mg/dL (65-110); Osmolality Calculated 287 mOsm/kg (285-295); Potassium 3.9 mmol/L (3.4-5.0); Sodium 139 mmol/L (137-145); Total Protein 7.3 g/dL (6.3-8.2)
--- NOTE | 2024-10-16 11:10 | PC.NURSE ---
pt complaint of chest hurting, dr kirk notified. ekg completed and awaiting lab results. pt refused urine specimen at this time.
--- NOTE | 2024-10-16 11:12 | PC.NURSE ---
dr kirk in room with pt.
[2024-10-16 11:15] LABS: Troponin I < 0.012 ng/mL (0.000-0.034)
--- NOTE | 2024-10-16 12:03 | PC.NURSE ---
dr kirk in with pt, continues with chest discomfort.
--- NOTE | 2024-10-16 12:20 | PC.NURSE ---
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 dr ayala pt wanting to see him. pt refused gi cocktail
[2024-10-16 13:26] LABS: Troponin I < 0.012 ng/mL (0.000-0.034)
[2024-10-16 13:29] LABS: Add Urine Microscopic? NO; Appearance Urine Clear (Clear); Glucose Urine UA Negative (Negative); Leukocyte Esterase Ur Negative LEU/UL (Negative); Nitrate Urine Negative (Negative); Specific Grav Ur 1.015 (1.010-1.020)
[2024-10-16 13:31] LABS: Pregnancy On Board Control Positive
[2024-10-16 13:56] LABS: Cannabinoid Screen Urine Negative (Negative)
--- NOTE | 2024-10-16 14:12 | PC.NURSE ---
sandwich, drink, ice cream provided to pt.
== END 2024-10-16 14:28 | disposition home or self-care (01) ==
PROVIDERS: Emergency Provider Emergency Medicine
DX: F19.99 Other psychoactive substance use, unspecified with unspecified psychoactive substance-induced disorder (principal); R07.89 Other chest pain; F17.210 Nicotine dependence, cigarettes, uncomplicated
CPT/HCPCS: 36415; 71046; 80053; 80307; 81003; 81025; 84484; 85025; 93005; 99284; A9270

== ENCOUNTER 2024-10-17 21:26 | Emergency (ER) | payer OTHER, SELFPAY ==
--- OUTSIDE RECORDS SUMMARY | 2024-09-28 05:40 | XMS_ITS ---
Author Organization [facility] Address [address] [place] [address] Care Team Providers Care Metallographic Technician Name Role Phone Alana Epps Primary Care Provider Ana Verma [phone] REASON FOR VISIT new patient Social History Sex Assigned At : Social History Observation Description Sex Assigned At Female Encounters Encounter Location Date Provider Diagnosis [facility] [address] [place] [address] 09/28/2024 Ana Verma Plan Of Treatment No Information Progress Notes * Jaycee SLATERDOB:1980 (44 yo F)Acc No.[id number]:09/28/2024 UNLOCKED PROGRESS NOTE Patient: Jaycee AYALA Provider: ALCON Nash, MILLER SUPERVISOR, PMHNP-BC :1980 A ge:44 Y S ex:Female Date:09/28/2024 Address:[address] [facility] Pcp:Alana Epps Subjective: * Chief Complaints: * 1 . New patient. * Medical History: Objective: * Vitals: Assessment: Plan: * Treatment: * * Electronic signature of Anton Verma on 10/17/2024 at 09:52 PM CDT Sign off status: Pending * Provider: Peg Verma MSN, MILLER SUPERVISOR, PMHNP-BC Date: 0 09/28/2024 Generated for Printing/Faxing/eTransmitting on: 0 10/17/2024 09:52 PM CDT
--- OUTSIDE RECORDS SUMMARY | 2024-09-29 04:20 | XMS_ITS ---
Author Organization [facility] Address [address] [place] [address] Care Team Providers Care Reading Teacher Name Role Phone Alana Epps Primary Care Provider Leandro Harris [phone] REASON FOR VISIT new patient Social History Sex Assigned At : Social History Observation Description Sex Assigned At Female Encounters Encounter Location Date Provider Diagnosis [address] [place] [address] 09/29/2024 Leandro Harris Plan Of Treatment No Information Progress Notes * PADMABradsyedDOB:1980 (44 yo F)Acc No.[id number]:09/29/2024 UNLOCKED PROGRESS NOTE Patient: Jaycee AYALA Provider: Sasha Harris DNP, PMHNP-BC :1980 A ge:44 Y S ex:Female Date:09/29/2024 [facility] [facility] Pcp:Alana Epps Subjective: * Chief Complaints: * 1 . New patient. * Medical History: Objective: * Vitals: Assessment: Plan: * Treatment: * * Electronic signature of Kanu Harris APRN, [id number] on 10/17/2024 at 09:52 PM CDT Sign off status: Pending * Provider: Sasha Harris DNP, PMHNP-BC Date: 09/29/2024 Generated for Roland felder/Karina/eTransmitting on: 10/17/2024 09:52 PM CDT
--- OUTSIDE RECORDS SUMMARY | 2024-10-06 03:20 | XMS_ITS ---
Author Organization [facility] Address [address] [place] [address] Care Team Providers Care Keller Machine Operator Name Role Phone Alana Epps Primary Care Provider REASON FOR VISIT 1 week f/u Social History Sex Assigned At : Social History Observation Description Sex Assigned At Female Encounters Encounter Location Date Provider Diagnosis [place] [address] [place] [address] 10/06/2024 Alana Epps Plan Of Treatment No Information Progress Notes * Jaycee ROUSEDOB:1980 (44 yo F)Acc No.[id number]:10/06/2024 UNLOCKED PROGRESS NOTE Patient: Jaycee AYALA Provider: Sasha Epps MSN, CUSTOMER ACCOUNT SPECIALIST, RECRUITING OPERATIONS CONSULTANT-C :1980 A ge:44 Y S ex:Female Date:10/06/2024 Address:[address] [facility] Subjective: * Chief Complaints: * 1 . 1 week f/u. * Medical History: Objective: * Vitals: Assessment: Plan: * Treatment: * Care Plan Details* * Electronic signature of Guera Epps APRN, [id number] on 10/16/2024 at 11:51 PM CDT Sign off status: Pending * Provider: Sasha Epps MSN, CUSTOMER ACCOUNT SPECIALIST, RECRUITING OPERATIONS CONSULTANT-C Date: 0 10/06/2024 Generated for Roland felder/Karina/eTransmitting on: 10/16/2024 11:51 PM CDT
--- OUTSIDE RECORDS SUMMARY | 2024-10-17 01:35 | XMS_ITS | Encounter Summary ---
Author Organization [facility] Healthcare Address [address] [place] [address] Care Team Providers Care Bicycle Assembler Name Role Phone Christofer Stewart MD Primary Care Provider Reason for Visit * Reason Comments Chest Pain Pt discharged from [facility] this am pt called 911 said she had no pulse pt states 'my eye are dilated but I didn't do any drugs I think someone poisoned me with strychnine cause I'm in cardiac shock' Encounter Details Date Type Department Care Team (Late st Contact Info) Description 10/17/2024 1:35 AM CDT - 10/17/2024 2:55 AM CDT Emergency [facility] Emergency Department [address] [place] [address] Jamarcus Irvin MD [address] [place] [address] Tre Roche MD [address] [place] [address] [address] Chest pain, unspecified type (Primary Dx) Discharge Disposition: Discharge to home or self care Social History Tobacco Use Types Packs/Day Years Used Date Smoking Tobacco: Every Day Cigarettes 1.3 12.1 Started: 09/23/2012 AUDIT-C Answer Date Recorded Q1: How often [...] making you feel afraid or unsafe? 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 Gender Identity Not on file Sexual Orientation Not on file documented as of this encounter Last Filed Vital Signs Vital Sign Reading Time Taken Comments Blood Pressure 110/76 10/17/2024 2:45 AM CDT Pulse 72 10/17/2024 2:45 AM CDT Temperature 36.3 C (97.4 F) 10/17/2024 12:01 AM CDT Respiratory Rate 14 10/17/2024 2:45 AM CDT Oxygen Saturation 100% 10/17/2024 2:45 AM CDT Inhaled Oxygen Concentration - - Weight 47.2 kg (104 lb) 10/17/2024 12:01 AM CDT Height 154.9 cm (5' 1) 10/17/2024 12:01 AM CDT Body Mass Index 19.65 10/17/2024 12:01 AM CDT documented in this encounter Discharge Instructions * Attachments The following attachments cannot be sent through Care Everywhere. * Chest Pain, Noncardiac (Ecuadorean) documented in this encounter Medications at Time of Discharge citalopram (CeleXA) 10 mg tabletIndications :Moderate episode of recurrent major depressive disorder (HCC),ASIMA (generalized anxiety disorder) Take 1 tablet (10 mg total) by mouth daily for 30 days, THEN 2 tablets (20 mg total) daily. 150 tablet 06/23/2023 documented as of this encounter Discharge Disposition Disposition Code Departure Means Destination Comment s Discharge to home or self care documented in this encounter ED Notes * Tre Roche MD - 10/17/2024 2:18 AM CDT HPI Chief Complaint Patient presents with ??? Chest Pain Pt discharged from [facility] this am pt called 911 said she had no pulse pt states 'my eyeare dilated but I didn't do any drugs I think someone poisoned me with strychnine cause I'm in cardiac shock' 44-year-old otherwise healthy here with the complaints of fullness in her chest for past few days has occasional cough. Patient states her lungs are filling up with fluid. Has occasional cough which is nonproductive. No previous history of COPD or CHF. Patient History: No past medical history on file. Review of Systems Review of Systems Constitutional: Negative. HENT: Negative. Eyes: Negative. Respiratory: Positive for cough. Cardiovascular: Positive for chest pain. Gastrointestinal: Negative. Genitourinary: Negative. Musculoskeletal: Negative. Neurological: Negative. Hematological: Negative. Physical Exam ED Triage Vitals [10/17/24 0001] Temp Pulse Resp BP SpO2 36.3 ??C (97.4 ??F) 90 18 124/86 99 % Temp src Heart Rate Source Patient Position BP Location FiO2 (%) Tympanic -- -- -- -- Height Height Method Weight Weight Method 1.549 m (5' 1) Stated 47.2 kg (104 lb) -- Physical Exam MDM Medical Decision Making Amount and/or Complexity of Data Reviewed Radiology: ordered. ECG/medicine tests: ordered. ED Course as of 10/17/24246 Time: 10/17 245 Comment: Notified patient about the x-ray and EKG findings. Advised her to continue home medication, follow up with the primary doctor By: Tre Roche MD Final diagnoses: None Tre Roche MD 10/17/24246 * Petrona Sanchez RN - 10/16/2024 11:59 PM CDT Pt has flight of ideas and multiple medical complaints arrived via [facility] discharged from [facility] this am documented in this encounter Miscellaneous Notes * ED Procedure Note - Tre Roche MD - 10/17/2024 2:45 AM CDTAssociated Order(s): ECG 12 lead Procedure ECG 12 lead Date/Time: 10/17/2024 2:46 AM Performed by: Tre Roche MD Authorized by: Jamarcus Irvin MD Rate: ECG rate: 84 ECG rate assessment: normal Rhythm: Rhythm: sinus rhythm Ectopy: Ectopy: none QRS: QRS axis: Normal QRS intervals: Normal Conduction: Conduction: normal ST segments: ST segments: Normal T waves: T waves: normal Interpretation: Interpretation: normal Tre Roche MD 10/17/24 0246 documented in this encounter Plan of Treatment Not on file documented as of this encounter Procedures Procedure Name Priority Date/Time Associated Diagnosis Comments XR CHEST PA LATERAL 2 VIEWS ED 10/17/2024 2:20 AM CDT ECG 12-LEAD STAT 10/17/2024 12:07 AM CDT documented in this encounter Results * XR Chest Pa Lateral 2 Vw (10/17/2024 2:20 AM CDT) Anatomical Region Laterality Modality Body, Chest N/A Computed Radiogr aphy 10/17/2024 2:35 AM CDT Narrative 10/17/2024 2:36 AM CDT EXAM DESCRIPTION: XR CHEST PA LATERAL 2 VIEWS REASON FOR STUDY: cough Pt has flight of ideas and multiple medical complaints arrived via [facility] discharged from [facility] this AM. Smoker TECHNIQUE: Frontal and lateral radiographic views of the chest acquired. COMPARISON: None. FINDINGS: LUNGS/PLEURA: No focal consolidation or pneumothorax. No pleural effusion. HEART/MEDIASTINUM: Cardiac silhouette is normal. Remaining mediastinal silhouettes are unremarkable. HARDWARE/LINES/TUBES: EKG leads overlie the film. BONES: No acute findings. IMPRESSION: No acute cardiopulmonary abnormality. THIS IS AN ELECTRONICALLY VERIFIED FINAL REPORT 10/17/2024 2:36 AM - Electronically signed by Ml Foster M.D. SN: SN Report ID: [id number] Reading Location: [id number] Procedure Note Ml Foster MD - 10/17/2024 EXAM DESCRIPTION: XR CHEST PA LATERAL 2 VIEWS REASON FOR STUDY: cough Pt has flight of ideas and multiple medical [facility] [place] [facility]. Smoker TECHNIQUE: Frontal and lateral radiographic views of the chest acquired. COMPARISON: None. FINDINGS: LUNGS/PLEURA: No focal consolidation or pneumothorax. No pleuraleffusion. HEART/MEDIASTINUM: Cardiac silhouette is normal. Remaining mediastinal silhouettes are unremarkable. HARDWARE/LINES/TUBES: EKG leads overlie the film. BONES: No acute findings. IMPRESSION: No acute cardiopulmonary abnormality. THIS IS AN ELECTRONICALLY VERIFIED FINAL REPORT 10/17/2024 2:36 AM - Electronically signed by Ml Foster M.D. SN: SN Report ID: [id number] Reading Location: [id number] Tre Roche MD IMG XR PROCEDURES Final Result * ECG 12 lead (10/17/2024 12:07 AM CDT) 10/17/2024 12:0 7 AM CDT Narrative [facility] - 10/17/2024 6:47 AM CDT Vent Rate: 84 bpm RR Interval: 709 msec MN Interval: 111 msec QRS Duration: 96 msec QT Interval: 362 msec QTC Interval: 403 msec P-R-T [place]: 80 - 73 - 64 degrees IMPRESSION: Baseline artifact, probable SINUS RHYTHM WITH SHORT MN INTERVAL LEFT ATRIAL ENLARGEMENT [-0.15mV P WAVE IN V1/V2] POSSIBLE LEFT VENTRICULAR HYPERTROPHY [VOLTAGE CRITERIA PLUS LAE OR QRS WIDENING] ABNORMAL ECG NO CHANGE FROM PREVIOUS TRACING NOTED Electronically Signed By: Francois Casarez MD us Jamarcus Irvin MD ECG ORDERABLES Final Result [facility] documented in this encounter Visit Diagnoses Diagnosis Chest pain, unspecified type- Primary documented in this encounter Care Teams Bicycle Assembler Relationship Specialty Start Date End Date Christofer Stewart MD PCP - General Family Medicine 06/23/23 documented as of this encounter
--- OUTSIDE RECORDS SUMMARY | 2024-10-17 14:59 | XMS_ITS | Encounter Summary ---
Author Organization [facility] Address [facility] [place] [address] Care Team Providers Care Director Of Medical Review Name Role Phone Francisco Javier Ivan MD Primary Care Provider [phone] Reason for Visit * Reason Comments Medical Problem Encounter Details Date Type Department Care Team (Late st Contact Info) Description 10/17/2024 2:59 PM CDT - 10/17/2024 8:00 PM T Emergency [facility] [address] Familia Membreno MD [address] [place] [id number] Medical Problem Discharge Disposition: Home or Self Care (Routine Discharge) Social History Tobacco Use Types Packs/Day Years Used Date Smoking Tobacco: Every Day Cigarettes Smokeless Tobacco: Never Alcohol Use Standard Drinks/Week Comments Never 0 (1 standard drink = 0.6 oz pur e alcohol) [facility] Utilities Answer Date Recorded In the past 12 months has [facility] [employer], oil, or water [employer] threatened to shut off services in your [...] any time in the past 12 m [facility], were you homeless or living in a correction (including now)? Yes 10/13/2023 Comments No Sex and Gender Information Value Date Recorded Sex Assigned at Female 10/17/2024 3:24 PM CDT Legal Sex Female 11:36 PM CDT Gender Identity Not on file Sexual Orientation Not on file documented as of this encounter Last Filed Vital Signs Vital Sign Reading Time Taken Comments Blood Pressure 98/78 10/17/2024 7:30 PM CDT Pulse 73 10/17/2024 7:30 PM CDT Temperature 36.8 C (98.2 F) 10/17/2024 3:00 PM CDT Respiratory Rate 20 10/17/2024 7:30 PM CDT Oxygen Saturation 100% 10/17/2024 7:30 PM CDT Inhaled Oxygen Concentration - - Weight 47.2 kg (104 lb) 10/17/2024 3:00 PM CDT Height 154.9 cm (5' 1) 10/17/2024 3:00 PM CDT Body Mass Index 19.65 10/17/2024 3:00 PM CDT documented in this encounter Functional Status * Are you deaf or do you have serious difficulty hearing Answer Date of Assessment Author Status No 10/13/2023 6:54 AM FARAT Lina Boogie RN Active * Are you blind or do you have serious difficulty seeing, even when wearing glasses? Answer Date of Assessment Author Status No 10/13/2023 6:54 AM CDT Lina Boogie RN Active * Do you have serious difficulty walking or climbing stairs? Answer Date of Assessment Author Status Yes 10/13/2023 6:54 AM FARAT Lina Boogie RN Active * Do you have difficulty dressing or bathing? Answer Date of Assessment Author Status No 10/13/2023 6:54 AM FARAT Lina Boogie RN Active * Because of a physical, mental, or emotional condition, do you have difficulty doing errands alone such as visiting a doctor's office or shopping? Answer Date of Assessment Author Status Yes 10/13/2023 6:54 AM FARAT Lina Boogie RN Active * Calculated C-SSRS Risk Score (Lifetime/Recent) Answer Date of Assessment Author Status No Risk Indicated 10/17/2024 3:02 PM CDT Ilana Toscano RN Active * [place] Suicide Severity Rating Scale (Screener/Recent Self-Report) Question Answer Date of Assessment Author Status 1. Wish to be (Past 1 Month) No 10/17/2024 3:02 PM CDT Amanda Toscano RN Active 2. Non-Specific Active Suicidal Thoughts (Past 1 Month) No 10/17/2024 3:02 PM CDT Amanda Toscano RN Active 6. Suicidal Behavior (Lifetime) No 10/17/2024 3:02 PM CDT Amanda Toscano RN Active documented as of this encounter Mental Status * Because of a physical, mental, or emotional condition, do you have serious difficulty concentrating, remembering, or making decisions? Answer Entry Date Author Status No 10/13/2023 6:54 AM CDT Lina Boogie RN Active documented in this encounter Discharge Instructions * Attachments The following attachments cannot be sent through Care Everywhere. * Treatment for substance use disorder ([place]) documented in this encounter Medications at Time of Discharge ARIPiprazole (ABILIFY) 5 MG tablet Take 1 tablet (5 mg total) by mouth daily. 05/17/2024 buPROPion SR (WELLBUTRIN SR) 150 MG 12 hr tablet Take 1 tablet (150 mg total) by mouth 2 (two) times daily. 08/07/2024 documented as of this encounter ED Notes * Michael Gloria RN - 10/17/2024 6:57 PM CDT Report received and intro to Pt. * Becky Monzon RN - 10/17/2024 6:36 PM CDT Called [facility] crisis line spoke with marco, states that she will call back once she has asETA. * Familia Membreno MD - 10/17/2024 3:39 PM CDT Chief Complaint Chief Complaint Patient presents with Medical Problem History of Present Illness .HPI: 44-year-old female past medical history of polysubstance abuse, bipolar, presenting to the emergency department for concern that the [facility] is poisoning her. She states that he has been using strict denying. She is denying any SI HI not endorsing any auditory or visual hallucinations however she does endorse substance abuse states that she uses methamphetamines. She otherwise states that she has not used in 2 weeks and is denying any fever chest pain or shortness of breath. PMH: See above PSH: See above FH: Noncontributory SH:: See above Allerg: nkma Medical History ALLERGIES: Review of patient's allergies indicates: Allergen Reactions Codeine Anaphylaxis and Shortness of Breath Ketorolac Other (see comment) Rapid Heart Rate Naproxen GI Upset No problems with Ibuprofen Penicillins Unknown MEDICATIONS: Prior to Admission medications Medication Sig Start Date End Date Taking? Authorizing Provider ARIPiprazole (ABILIFY) 5 MG tablet Take 1 tablet (5 mg total) by mouth daily. 05/17/24 Yes Default History Genericprovider buPROPion SR (WELLBUTRIN SR) 150 MG 12 hr tablet Take 1 tablet (150 mg total) by mouth 2 (two) times daily. 08/07/24 Yes Default History Genericprovider PAST MEDICAL HISTORY: Past Medical History[1] PAST SURGICAL HISTORY: Past Surgical History[2] FAMILY HISTORY: Family History[3] SOCIAL HISTORY: Social History[4] Review of Systems Review of Systems Unable to perform ROS: Psychiatric disorder Physical Exam Filed Vitals: 10/17/24 1800 10/17/24 1830 10/17/24 1900 10/17/24 1930 BP: 124/80 117/82 115/84 98/78 Pulse: 71 72 74 73 Resp: 18 18 15 20 Temp: TempSrc: SpO2: 100% 100% 100% 100% Weight: Height: Physical Exam Vitals and nursing note reviewed. Constitutional: General: She is not in acute distress. Appearance: She is not ill-appearing. HENT: Head: Normocephalic and atraumatic. Right Ear: External ear normal. Left Ear: External ear normal. Nose: Nose normal. No congestion or rhinorrhea. Mouth/Throat: Mouth: Mucous membranes are moist. Pharynx: Oropharynx is clear. Eyes: General: No scleral icterus. Right eye: No discharge. Left eye: No discharge. Extraocular Movements: Extraocular movements intact. Conjunctiva/sclera: Conjunctivae normal. Pupils: Pupils are equal, round, and reactive to light. Cardiovascular: Rate and Rhythm: Normal rate and regular rhythm. Pulmonary: Effort: Pulmonary effort is normal. No respiratory distress. Abdominal: General: Abdomen is flat. There is no distension. Skin: General: Skin is warm and dry. Findings: No erythema. Neurological: General: No focal deficit present. Mental Status: She is alert and oriented to person, place, and time. Cranial Nerves: No cranial nerve deficit. Diagnostic Studies / Procedures ELECTROCARDIOGRAMS: Results for orders placed or performed during the hospital encounter of 10/17/24 ECG 12 lead Narrative [address] [place] [address] Test Date: 2024-10-17 Pat Name: JJ ROUSE Department: 3 Room: EXAM 707 Gender: Female Hvac Specialist: : 1980 Requested By: IVAN MEMBRENO Order Number: [id number] Reading MD: Elenita Leggett Measurements Intervals [place] Rate: 86 P: 81 [place]: 130 QRS: 81 QRSD: 98 T: 82 QT: 361 QTc: 434 Interpretive Statements SINUS RHYTHM POSSIBLE RIGHT ATRIAL ENLARGEMENT LABORATORY STUDIES: Results for orders placed or performed during the hospital encounter of 10/17/24 CBC W/DIFF AUTOMATED Result Value Ref Range WBC 7.54 4.00 - 10.80 x10'3/uL RBC 4.46 4.10 - 5.40 x10'6/uL HGB 13.8 12.0 - 16.0 G/DL HCT 40.3 36.0 - 47.0 % MCV 90.4 78.0 - 100.0 FL MCH 30.9 27.0 - 31.0 PG MCHC 34.2 33.0 - 36.0 G/DL RDW 12.5 11.5 - 14.5 % PLT 470 (H) 150 - 350 x10'3/uL MPV 10.1 7.4 - 10.4 FL CBC COMMENT NORMAL REFERENCE RANGE NOT ESTABLISHED FOR THE PROPORTIONAL LEUKOCYTE DIFFERENTIAL. NEUTROPHILS % 66.6 % LYMPHOCYTES % 24.8 % MONOCYTES % 7.0 % EOSINOPHILS % 0.5 % BASOPHILS % 0.8 % IMMATURE GRANS % 0.3 % NRBC % 0.0 % ABS. NEUTROPHILS 5.02 1.60 - 8.30 x10'3/uL ABS. LYMPHOCYTES 1.87 0.80 - 4.70 x10'3/uL ABS. MONOCYTES 0.53 0.00 - 1.50 x10'3/uL ABS. EOSINOPHILS 0.04 0.00 - 0.40 x10'3/uL ABS. BASOPHILS 0.06 0.00 - 0.20 x10'3/uL ABS. IMMATURE GRANULOCYTES 0.02 0.00 - 0.03 x10'3/uL ABS. NUCLEATED RBC'S 0.00 0.00 - 0.01 x10'3/uL BASIC METABOLIC PANEL Result Value Ref Range SODIUM S/P/B 140 136 - 145 MMOL/L POTASSIUM S/P/B 3.5 3.5 - 5.1 MMOL/L CHLORIDE S/P/B 103 98 - 107 MMOL/L CO2 27.0 21.0 - 32.0 MMOL/L GLUCOSE 98 70 - 99 MG/DL BUN 18 6 - 24 MG/DL CREATININE S/P/B 1.18 (H) 0.55 - 1.02 MG/DL CALCIUM S/P/B 10.0 8.4 - 10.5 MG/DL ANION GAP 10.0 5.0 - 15.0 MMOL/L OSMOLALITY (CALC) 292 MOSM/KG GFR ESTIMATE 59 (L) >89 ML/MIN/1.73 M2 GFR NOTES GFR REFERENCES: ETHANOL Result Value Ref Range ALCOHOL S/P/B <0.003 <0.003 G/DL DRUG SCREEN RAPID Result Value Ref Range CANNABINOIDS SCREEN (U) NEGATIVE NEGATIVE PHENCYCLIDINE PCP (U) NEGATIVE NEGATIVE COCAINE METABOLITES (U) NEGATIVE NEGATIVE METHAMPHETAMINE SCREEN (U) POSITIVE (A) NEGATIVE OPIATE SCREEN (U) NEGATIVE NEGATIVE AMPHETAMINE SCREEN (U) POSITIVE (A) NEGATIVE BENZODIAZEPINES SCREEN (U) NEGATIVE NEGATIVE TRICYCLIC ANTIDEPRESSANT SCREEN (U) NEGATIVE NEGATIVE METHADONE (U) NEGATIVE NEGATIVE BARBITURATES SCREEN (U) POSITIVE (A) NEGATIVE OXYCODONE SCREEN (U) NEGATIVE NEGATIVE URINE TOX COMMENT THIS TEST METHODOLOGY IS DESIGNED AND OFFERED A RAPID TURNAROUND, QUALITATIVE SCREENING PROCEDURE TO AID IN THE IMMEDIATE MEDICAL ASSESSMENT OF PATIENTS SUSPECTED OF SUBSTANCE ABUSE. CORONAVIRUS (COVID-19) ANTIGEN Specimen: NASAL Result Value Ref Range CORONAVIRUS ANTIGEN IA NEGATIVE NEGATIVE SPECIMEN TYPE NASAL IMAGING STUDIES No orders to display ED Course / Medical Decision Making .EKG: Normal sinus rhythm, no ST segment elevation or depression, nonspecific ST segment changes Pulse ox: 98% on room air and normal interpreted by me Medical Decision Making Patient presenting to the emergency department with delusions of being poisoned. She has a known polysubstance abuse history and psychiatric history well-known to the local behavioral health workers in the area. Patient otherwise was in no acute distress somewhat perseverating on her delusion of being poisoned. She had no focal abdominal tenderness to palpation she had stable vital signs. Chronic medical conditions impacting patient's presentation: Polysubstance abuse, chronic psychiatric illness Differential diagnosis: Polysubstance abuse, acute psychosis, bipolar, schizophrenia Workup: Labs, EKG Reevaluation: Patient's labs were relatively unremarkable patient's urine drug screen however did show polysubstance abuse including amphetamines methamphetamines and barbiturates. The EKG was nonischemic and patient was medically cleared for behavioral health evaluation After the psychiatry evaluation and by behavioral health worker the patient was deemed to be at [facility] and is well-known to the community she continues to abuse polysubstance and this contributes to her delusions however at this time she was deemed not to be a harm to self or others and stable for discharge No new prescriptions Amount and/or Complexity of Data Reviewed Labs: ordered. ECG/medicine tests: ordered. Clinical Impression Polysubstance abuse ([facility]) (Primary) Disposition: Discharge [1] Past Medical History: Diagnosis Date Manic depression (CMS/HCC [facility]/HCC) [2] Past Surgical History: Procedure Laterality Date SECTION x3 [3] No family history on file. [4] Social History Tobacco Use Smoking status: Every Day Current packs/day: 0.50 Types: Cigarettes Smokeless tobacco: Never Vaping Use Vaping status: Never Used Substance Use Topics Alcohol use: Never Drug use: Never Familia Membreno MD 10/17/242112 * Daylin Toscano RN - 10/17/2024 3:01 PM CDT Patient arrives via [facility] with c/o the sp[facility] is trying to kill me and I'm goinginto septic shock. When asked why she is thinks she is going into shock states rat poison from the [facility]. EMS stated she had been to [facility] and [facility] today already. They have had multiple calls from her the last week. documented in this encounter Plan of Treatment Not on file documented as of this encounter Procedures Procedure Name Priority Date/Time Associated Diagnosis Comments DRUG SCREEN RAPID STAT 10/17/2024 4:1 5 PM CDT BASIC METABOLIC PANEL STAT 10/17/2024 4:12 PM CDT CBC W/DIFF AUTOMATED STAT 10/17/2024 4:12 PM CDT ETHANOL STAT 10/17/2024 4:12 PM CDT CORONAVIRUS (COVID-19) ANTIGEN STAT 10/17/2024 4:05 PM CDT ECG 12-LEAD Routine 10/17/2024 3:31 PM CDT documented in this encounter Results * (ABNORMAL) DRUG SCREEN RAPID (10/17/2024 4:15 PM CDT) Pathologist [facility] CANNABINOIDS SCREEN (U) NEGATIVE NEGATIVE 10/17/2024 4:50 PM CDT [facility] PHENCYCLIDINE PCP (U) NEGATIVE NEGATIVE 10/17/2024 4:50 PM CDT [facility] COCAINE METABOLITES (U) NEGATIVE NEGATIVE 10/17/2024 4:50 PM CDT [facility] METHAMPHETAMINE SCREEN (U) POSITIVE(A) NEGATIVE 10/17/2024 4:50 PM CDT [facility] OPIATE SCREEN (U) NEGATIVE NEGATIVE 025 4:50 PM CDT [facility] AMPHETAMINE SCREEN (U) POSITIVE(A) NEGATIVE 10/17/2024 4:50 PM CDT [facility] BENZODIAZEPINES SCREEN (U) NEGATIVE NEGATIVE 10/17/2024 4:50 PM CDT [facility] TRICYCLIC ANTIDEPRESSANT SCREEN (U) NEGATIVE NEGATIVE 10/17/2024 4:50 PM CDT [facility] METHADONE (U) NEGATIVE NEGATIVE 10/17/2024 4:50 PM CDT [facility] BARBITURATES SCREEN (U) POSITIVE(A) NEGATIVE 10/17/2024 4:50 PM CDT [facility] OXYCODONE SCREEN (U) NEGATIVE NEGATIVE 10/17/2024 4:50 PM CDT [facility] URINE TOX COMMENT THIS TEST METHODOLOGY IS DESIGNED AND OFFERED A RAPID TURNAROUND, QUALITATIVE SCREENING PROCEDURE TO AID IN THE IMMEDIATE MEDICAL ASSESSMENT OF PATIENTS SUSPECTED OF SUBSTANCE ABUSE. 10/17/2024 4:24 PM CDT [facility] Comment: CLINICAL CONSIDERATION AND PROFESSIONAL JUDGMENT MUST BE APPLIED TO ANY DRUG OF ABUSE TEST RESULT, BOTH POSITIVE AND NEGATIVE. CONFIRMATORY QUANTITATIVE RESULTS ARE AVAILABLE THROUGH OUR REFERENCE LABORATORY. URINE SPECIMEN / Unknown 10/17/2024 4:15 PM CDT us Familia Membreno MD URINE ORDERABLES Final Result Performing Organization Address City/[facility]/ZIP Co de Phone Number [facility] [address] [place] [address], * ETHANOL (10/17/2024 4:12 PM CDT) ALCOHOL S/P/B <0.003 <0.003 G/DL 10/17/2024 5:06 PM CDT [facility] 10/17/2024 4:12 PM CDT us Familia Membreno MD LABORATORY Final Result Performing Organization Address [facility] Co de Phone Number [facility] [address] [place] [address], * (ABNORMAL) BASIC METABOLIC PANEL (10/17/2024 4:12 PM CDT) SODIUM S/P/B 140 136 - 145 MMOL/L 10/17/2024 5:06 PM CDT [facility] POTASSIUM S/P/B 3.5 3.5 - 5.1 MMOL/L 10/17/2024 5:06 PM CDT [facility] CHLORIDE S/P/B 103 98 - 107 MMOL/L 10/17/2024 5:06 PM CDT [facility] CO2 27.0 21.0 - 32.0 MMOL/L 10/17/2024 5:06 PM CDT [facility] GLUCOSE 98 70 - 99 MG/DL 10/17/2024 5:06 PM T [facility] Comment: FASTING GLUCOSE 100 TO 125 MG/DL IS CONSISTENT WITH IMPAIRED FASTING GLUCOSE. FASTING GLUCOSE >125 MG/DL IS CONSISTENT WITH DIABETES. RANDOM GLUCOSE >200 MG/DL WITH HYPERGLYCEMIC SYMPTOMS IS CONSISTENT WITH DIABETES. PER ADA GUIDELINES BUN 18 6 - 24 MG/DL 10/17/2024 5:06 PM T [facility] CREATININE S/P/B 1.18(H) 0.55 - 1.02 MG/DL 10/17/2024 5:06 PM T [facility] CALCIUM S/P/B 10.0 8.4 - 10.5 MG/DL 10/17/2024 5:06 PM T [facility] ANION GAP 10.0 5.0 - 15.0 MMOL/L 10/17/2024 5:06 PM T [facility] OSMOLALITY (CALC) 292 MOSM/KG 025 5:06 PM T [facility] Comment:REFERENCE RANGE NOT ESTABLISHED GFR ESTIMATE 59(L) >89 ML/MIN/1. 73 M2 10/17/2024 5:06 PM T [facility] GFR NOTES GFR REFERENCE S: 10/17/2024 5:06 PM [facility] Comment: THE ESTIMATED GFR IS CALCULATED USING THE 2020 CKD-EPI EQUATION. THE FOLLOWING CATEGORIES FOR GRADING RENAL FUNCTION ARE RECOMMENDED BY THE INTERNATIONAL SOCIETY OF NEPHROLOGY (KDIGO 2012 CLINICAL PRACTICE GUIDELINE). G1,NORMAL OR HIGH: >89 ml/min/1.73 m2 G2,MILDLY DECREASED: 60-89 ml/min/1.73 m2 G3A,MILDLY TO MODERATELY DECREASED: 45-59 ml/min/1.73 m2 G3B,MODERATELY TO SEVERELY DECREASED: 30-44 ml/min/1.73 m2 G4,SEVERELY DECREASED: 15-29 ml/min/1.73 m2 G5,KIDNEY FAILURE: <15 ml/min/1.73 m2 10/17/2024 4:12 PM CDT Familia Membreno MD LABORATORY Final Result [facility] [address] [place] [address], * (ABNORMAL) CBC W/DIFF AUTOMATED (10/17/2024 4:12 PM CDT) WBC 7.54 4.00 - 10.80 x10'3/uL 10/17/2024 4:47 PM CDT [facility] RBC 4.46 4.10 - 5.40 x10'6/uL 10/17/2024 4:47 PM CDT [facility] HGB 13.8 12.0 - 16.0 G/DL 10/17/2024 4:47 PM CDT [facility] HCT 40.3 36.0 - 47.0 % 10/17/2024 4:47 PM CDT [facility] MCV 90.4 78.0 - 100.0 FL 10/17/2024 4:47 PM CDT [facility] MCH 30.9 27.0 - 31.0 PG 10/17/2024 4:47 PM CDT [facility] MCHC 34.2 33.0 - 36.0 G/DL 10/17/2024 4:47 PM CDT [facility] RDW 12.5 11.5 - 14.5 % 10/17/2024 4:47 PM CDT [facility] PLT 470(H) 150 - 350 x10'3/uL 10/17/2024 4:47 PM CDT [facility] MPV 10.1 7.4 - 10.4 FL 10/17/2024 4:47 PM CDT [facility] CBC COMMENT NORMAL REFERENCE RANGE NOT ESTABLISHED FOR THE PROPORTIONAL LEUKOCYTE DIFFERENTIAL. 10/17/2024 4:47 PM CDT [facility] NEUTROPHILS % 66.6 % 10/17/2024 4:47 PM CDT [facility] LYMPHOCYTES % 24.8 % 10/17/2024 4:47 PM CDT [facility] MONOCYTES % 7.0 % 10/17/2024 4:47 PM CDT [facility] EOSINOPHILS % 0.5 % 10/17/2024 4:47 PM CDT [facility] BASOPHILS % 0.8 % 10/17/2024 4:47 PM CDT [facility] IMMATURE GRANS % 0.3 % 10/18/19 4:47 PM CDT [facility] NRBC % 0.0 % 10/17/2024 4:47 PM CDT [facility] ABS. NEUTROPHILS 5.02 1.60 - 8.30 x10'3/uL 10/17/2024 4:47 PM CDT [facility] ABS. LYMPHOCYTES 1.87 0.80 - 4.70 x10'3/uL 10/17/2024 4:47 PM CDT [facility] ABS. MONOCYTES 0.53 0.00 - 1.50 x10'3/uL 10/17/2024 4:47 PM CDT [facility] ABS. EOSINOPHILS 0.04 0.00 - 0.40 x10'3/uL 10/17/2024 4:47 PM CDT [facility] ABS. BASOPHILS 0.06 0.00 - 0.20 x10'3/uL 10/17/2024 4:47 PM CDT [facility] ABS. IMMATURE GRANULOCYTES 0.02 0.00 - 0.03 x10'3/uL 10/17/2024 4:47 PM CDT [facility] ABS. NUCLEATED RBC'S 0.00 0.00 - 0.01 x10'3/uL 10/17/2024 4:47 PM CDT [facility] 10/17/2024 4:12 PM CDT us Familia Membreno MD LABORATORY Final Result [facility] [address] [place] [address], * CORONAVIRUS (COVID-19) ANTIGEN (10/17/2024 4:05 PM CDT) CORONAVIRUS ANTIGEN IA NEGATIVE NEGATIVE 10/17/2024 5:06 PM CDT [facility] Comment: NEGATIVE RESULTS DO NOT RULE OUT SARS-COV-2 INFECTION AND SHOULD NOT BE USED THE SOLE BASIS FOR TREATMENT OR PATIENT MANAGEMENT DECISIONS, INCLUDING INFECTION CONTROL DECISIONS. NEGATIVE RESULTS SHOULD BE CONSIDERED IN THE CONTEXT OF A PATIENT'S RECENT EXPOSURES, HISTORY AND THE PRESENCE OF CLINICAL SIGNS AND SYMPTOMS CONSISTENT WITH COVID 19. THIS TEST HAS BEEN AUTHORIZED BY THE FDA UNDER AN EMERGENCY USE AUTHORIZATION (EUA) FOR USE BY AUTHORIZED LABORATORIES. SPECIMEN TYPE NASAL 10/17/2024 4:43 PM CDT [facility] NASAL NASAL STRUCTURE / Unknown 10/17/2024 4:05 PM CDT Familia Membreno MD MICROBIOLOGY - GENERAL ORDERAB LES Final Result [facility] [place] [id number], * ECG 12 lead (10/17/2024 3:31 PM CDT) 10/17/2024 3:31 PM CDT Narrative [facility] - 10/17/2024 7:04 PM CDT [address] [place] [address] Test Date: 2024-10-17 Pat Name: JJ ROUSE Department: 3 Room: [place] [address] Gender: Female Hvac Specialist: : 1980 Requested By: IVAN MEMBRENO Order Number: [id number] Reading MD: Elenita Leggett Measurements Intervals [place] Rate: 86 P: 81 [place]: 130 QRS: 81 QRSD: 98 T: 82 QT: 361 QTc: 434 Interpretive Statements SINUS RHYTHM POSSIBLE RIGHT ATRIAL ENLARGEMENT Procedure Note Elenita Leggett MD - 10/17/[address] [place] [address] Test Date: 2024-10-17 Pat Name: JJ ROUSE Department: 3 Room: EXAM 707 Gender: Female Hvac Specialist: : 1980 Requested By: IVAN MEMBRENO Order Number: [id number] Reading MD: Elenita Leggett Measurements Intervals [place] Rate: 86 P: 81 [place]: 130 QRS: 81 QRSD: 98 T: 82 QT: 361 QTc: 434 Interpretive Statements SINUS RHYTHM POSSIBLE RIGHT ATRIAL ENLARGEMENT us Familia Membreno MD ECG ORDERABLES Final Result [facility] documented in this encounter Visit Diagnoses Diagnosis Polysubstance abuse (CMS/HCC)- Primary Other, mixed, or unspecified nondependent drug abuse, unspecified documented in this encounter Additional Health Concerns Infection Onset Date Last Indicated Resolved Time COVID-19 Rule Out 10/17/2024 10/17/2024 10/17/2024 5:06 PM CDT documented as of this encounter Care Teams Director Of Medical Review Relationship Specialty Start Date End Date Francisco Javier Ivan MD [address] [address] PCP - General FAMILY PRACTICE 06/05/24 documented as of this encounter
[2024-10-17 21:30] VITALS: BP 123/85; PULSE 74; RESP 18; TEMP 36.6; O2SAT 100
--- NOTE | 2024-10-17 21:46 | ED.ABDPAIN ---
HPI - Abdominal Pain General Chief Complaint: Abdominal Pain Stated Complaint: abdominal/chest discomfort Time Seen by Provider: 10/17/24 21:33 Source: patient Mode of arrival: ambulatory Limitations: no limitations History of Present Illness HPI narrative: 44-year-old with a history of drug abuse presents to the ER with a complains of abdominal pain which has been ongoing for past 1 week. She thinks there cyanide poisoning and her intestine are being eaten away . She denies ay nausea or vomiting , was at [facility] earlier this evening and i saw her at [facility] yesterday had Xray done which were unremarkable , she wants a CT scan of the abdomen .she states not used any drugs in 6 days , elicited complaint: abdominal pain Pertinent past history: none Onset (ago): week(s) (1) Pain Consistency: constant Location: none Severity: mild Quality: aching Radiation: suprapubic Migration to: no migration Exacerbating factors: nothing Relieving factors: nothing Context: confirms other (drug use) Associated symptoms: denies other symptoms Related Data Home Medications ?Medication ?Instructions ?Recorded ?Confirmed ?Last Taken ?Type aripiprazole 5 mg tablet (Abilify) 5 mg PO DAILY 05/17/24 05/17/24 Unknown History lorazepam 0.5 mg tablet (Ativan) 0.5 mg PO Q6H PRN anxiety 05/17/24 05/17/24 Unknown History trazodone 50 mg tablet mg 05/17/24 Unknown History Allergies Allergy/AdvReac Type Severity Reaction Status Date / Time Penicillins Allergy Severe Difficulty Verified 09/27/24 20:29 Swallowing codeine AdvReac Swelling Verified 09/27/24 20:29 Review of Systems Review of Systems: All systems reviewed & are unremarkable except as noted in HPI and below Constitutional: Constitutional: Reports no additional constitutional complaints Eyes: Eyes: Reports no additional eye complaints ENT: Reports system reviewed and no additional complaints, except as documented Cardiovascular: Cardiovascular: Reports no additional cardiovascular complaints Respiratory: Respiratory: Reports no additional respiratory complaints Gastrointestinal: Gastrointestinal: Reports as per HPI Musculoskeletal: Musculoskeletal: Reports no additional musculoskeletal complaints [facility] Past Medical History Medical History Drug abuse Tooth decay Surgical History Surgical History History of x3 Family History Family History Father No problems noted. Father Lung cancer Mother Heart disease Social History Social History Years smoked: 20 Smoking status: Current every day smoker Tobacco type: cigarettes Second hand tobacco smoke exposure: Yes Alcohol intake: former Substance use: former Substance use type: methamphetamine Gender identity (if verbalized by the patient): Female Spiritual care concerns: No Exam Narrative: GENERAL: Well-appearing, well-nourished, and in no acute distress. HEAD: Normocephalic, atraumatic. EYES: PERRLA and EOMI. ENT: Nares clear, no rhinorrhea or epistaxis. Mucous membranes moist. NECK: Supple. CHEST: Clear to auscultation. No respiratory distress. HEART: Regular rate and rhythm. No murmur heard. Normal peripheral pulses. ABDOMEN: Soft, nontender, nondistended, normal active bowel sounds. EXTREMITIES: Normal range of motion. No edema. SKIN: Warm, dry, no rash. NEURO: No focal deficits. Alert and oriented x3. PSYCH: Normal mood and affect. Course Course Emergency Course: informed patient about her UA results advised to take antibiotic. Follow up with the primary doctor. Vital Signs Vital signs: Vital Signs Temperature 36.6 C 10/17/24 21:30 Pulse Rate 74 10/17/24 21:30 Respiratory Rate 18 10/17/24 21:30 Blood Pressure 123/85 10/17/24 21:30 Pulse Oximetry 100 10/17/24 21:30 Oxygen Delivery Room Air 10/17/24 21:30 Temperature 36.6 C 10/17/24 21:30 Pulse Rate 74 10/17/24 21:30 Respiratory Rate 18 10/17/24 21:30 Blood Pressure 123/85 10/17/24 21:30 Pulse Oximetry 100 10/17/24 21:30 Oxygen Delivery Room Air 10/17/24 21:30 MDM - Abdominal Pain Lab Data Labs: Lab Results 10/17/24 Range/Units 21:40 Urine Color Dark red (Yellow) Urine Appearance Clear (Clear) Urine pH 5.5 (5.0-8.0) Ur Specific [place] >= 1.030 H (1.010-1.020) Urine Protein 3+ H (Negative) Urine Glucose (UA) Negative (Negative) Urine Ketones 2+ H (Negative) Ur Blood (Man) 3+ H (Negative) Urine Nitrate Positive H (Negative) Urine Bilirubin 1+ H (Negative) Urine Urobilinogen 1.0 (0.2-1.0) mg/dL Leukocyte Esterase Rfl Trace H (Negative) YANET/UL Urine RBC >75 H (0-2) /hpf Urine WBC 4-6 H (0-3) /hpf Ur Squamous Epith Cells Few (Few) /hpf Urine Bacteria 1+ H (None) /hpf Discharge Plan Discharge Clinical Impression: Anxiety Abdominal pain Qualifiers: Abdominal location: generalized Qualified Code(s): R10.84 - Generalized abdominal pain UTI (urinary tract infection) Qualifiers: Urinary tract infection type: acute cystitis Hematuria presence: without hematuria Qualified Code(s): N30.00 - Acute cystitis without hematuria Patient Disposition: Home Condition: Stable Instructions: Urinary Tract Infection in Women (DC) Additional Instructions: continue home medication take antibiotic as prescribed. Patient Language: Yakut Prescriptions: New sulfamethoxazole-trimethoprim [Bactrim DS] 800-160 mg tablet 1 tablet PO Q12H Qty: 10 0RF No Action trazodone 50 mg tablet aripiprazole [Abilify] 5 mg tablet 5 mg PO DAILY lorazepam [Ativan] 0.5 mg tablet 0.5 mg PO Q6H PRN (Reason: anxiety) azithromycin 500 mg tablet See Rx Instructions .ROUTE .COMPLEX Qty: 3 0RF Rx Instructions: For 500 mg dose pack: take 500 mg once daily for 3 days prednisone 20 mg tablet 20 mg PO DAILY 3 Days Qty: 3 0RF ondansetron 4 mg tablet,disintegrating 4 mg PO Q8H PRN (Reason: nausea and vomiting) Qty: 14 0RF levofloxacin 500 mg tablet 500 mg PO DAILY Qty: 6 0RF bupropion HCl [Wellbutrin SR] 150 mg tablet sustained-release 12 hr 150 mg PO QAM Qty: 30 0RF Follow-up/Referrals: UNKNOWN,DOCTOR [Primary Care Provider] Time of Disposition: 22:09
[2024-10-17 21:47] LABS: Appearance Urine Clear (Clear); Glucose Urine UA Negative (Negative); Leukocyte Esterase Ur Trace LEU/UL (Negative); Nitrate Urine Positive (Negative); Specific Grav Ur >= 1.030 (1.010-1.020)
[2024-10-17 21:52] LABS: Add Urine Microscopic? YES
--- OUTSIDE RECORDS SUMMARY | 2024-10-17 21:52 | XMS_ITS | Patient Health Record ---
Author Organization [facility] Address [address] [place] [address] Care Team Providers Care Card Dealer Name Role Phone Supriya Naziasyed Primary Care Provider [phone] Kasey Ny Unavailable [phone] Ava Hernandez Unavailable [phone] Leandro Harris Unavailable [phone] Ana Verma Unavailable [phone] Braxton Costa Unavailable [phone] Allergies Allergen (clinical drug ingredient) Drug/Non Drug Allergy documented on EMR Reaction Allergy Type Onset Date Status Penicillin rash Drug Allergy Active Results Component Value Reference Range Notes Test, Urine Reviewed date:09/20/2024 03:01:25 PM Interpretation: Performing Lab: Notes/Report: Test, Urine neg Negative - Negative HIV Screen *HIV 1, 2 Ab, p24 Ag ([id number]) Reviewed date:09/21/2024 02:19:40 PM Interpretation:Normal Performing Lab:[facility], [address] [facility], Phone - [phone], Director - [facility] Notes/Report: HIV Ab/p24 Ag Screen Non Reactive Non Reactive HIV-1/HIV-2 antibodies and HIV-1 p24 antigen were NOT detected. There is no laboratory evidence of HIV infection. HIV Negative CMP 14 Comprehensive Metabol ic Panel* Reviewed date:09/21/2024 02:19:40 PM Interpretation:Normal Performing Lab:[facility], [address] [facility], Phone - [phone], Director - PhDHermani Notes/Report: Glucose 73 70-99 [...] Reviewed date:09/21/2024 02:19:40 PM Interpretation:Normal Performing Lab:[facility] [place], [address] [facility] [place], Phone - [phone], Director - Eryn Notes/Report: WBC 5.9 3.4-10.8 [...] neg FTY neg QuantiFERON-TB Gold Plus ([id number]) Reviewed date:09/22/2024 02:30:29 PM Interpretation:Normal Performing Lab:[facility] [place], [address] [facility] [place], Phone - [phone], Director - [facility] Notes/Report: QuantiFERON Incubation Incubation performed. 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 confirmed Problem Opioid use disorder (3988312649) Opioid use disorder (F11.99) Active confirmed Problem Tobacco user (920737698) Nicotine dependence with current use (F17.200) Active [...] 98/58 Encounters Encounter Location Date Provider Diagnosis [facility] [address] [place] [address] 09/20/2024 Alana Epps Methamphetamine use disorder, mild, in early remission F15.10 ; Opioid use disorder F11.99 ; Routine general medical examination at a health care facility Z00.00 and Nicotine dependence with current use F17.[address] [place] [address] 09/20/2024 Ava Deniselyse Methamphetamine use disorder, mild, in early remission F15.10 and Bipolar 1 disorder, depressed F31.[address] [place] [address] 09/21/2024 Kasey Ny Bipolar 1 disorder, depressed F31.9 [place] [address] [place] [address] 09/26/2024 Braxton Costa Thyroid nodule E04.1 ; Benign paroxysmal vertigo, bilateral H81.13 ; Systolic murmur I38 and Over weight E66.3 [place] [place] [address] 09/19/2024 Alana Epps [place] [place] [address] [place] [address] 09/20/2024 Alana Epps [address] [place] [address] [place] [address] 09/29/2024 Alana Epps Opioid use disorder F11.99 [address] [address] [place] [address] 10/13/2024 Alana Epps Assessments Encounter Date Diagnosis (ICD [...] or be administered own oral medications per [place] protocols. Provided informed consent with understanding of [...] general medical examination at a [facility] care facility (ICD-10 - Z00.00) SUPR Programs: Based on an evaluation of [facility] Patient Placement Criteria, a recommendation [...] Insured Coverage Start Date Coverage End Date [employer] [address] [place] [address] [id number] Jaycee Rouse Self - patient is the insured 3 [employer] [address] [place] [address] [id number] Jaycee Rouse Self - patient is the insured 5 [employer] [address] [place] [address] [id number] PadmaJaycee Self - patient is the insured 5 Medical (General) History Medical History History ICD Code Manic Depression Surgical History Surgery Date(Month/Year) 3 c-sections right hand has pins gall bladder removed Hospitalization History Reason Date(Month/Year) gateway, multiple times between 2023- 5 06/2024
--- OUTSIDE RECORDS SUMMARY | 2024-10-17 21:52 | XMS_ITS | Clinical Summary ---
Author Organization [facility] Address [address] [place] [address] Care Team Providers Care Financial Management Consultant Name Role Phone Christofer Stewart MD Primary [...] 1.7 cm about 1.5 years ago in [facility] - obtain US of thyroid, labs ordered [...] Encounters Date Type Department Care Team Description 10/17/2024 1:35 AM CDT - 10/17/2024 2:55 AM CDT Emergency [facility] Emergency Department [address] [place] [address] Jamarcus Irvin MD Kanumuri, Raghu, MD Chest pain, unspecified type (Primary Dx) Discharge Disposition: Discharge to home or self care 09/18/2024 2:48 PM CDT - 09/18/2024 3:17 PM CDT Emergency [facility] Emergency Department [address] [place] [address] Discharge Disposition: Left without being seen 09/18/2024 Documentation [facility] Warm Hand Off Program [address] [place], [place] [phone] Trisha Marie from Last 3 Months Surgical [...] on file Legal Sex Female 11:53 AM [employer] INST[employer] Gender Identity Not on file Sexual Orientation [...] Mass Index 19.65 10/17/2024 12:01 AM CDT Plan of Treatment Health Maintenance [...] ECG 12-LEAD STAT 10/17/2024 12:07 AM CDT DRUGS OF ABUSE SCREEN, URINE WITHOUT CONFIRMATION STAT 09/18/2024 1:07 PM CDT from Last 3 Months Results * XR Chest Pa Lateral 2 Vw (10/17/2024 2:20 AM CDT) Anatomical Region Laterality Modality Body, Chest N/A Computed Radiogr aphy 10/17/2024 2:35 AM CDT Narrative 10/17/2024 2:36 AM CDT EXAM DESCRIPTION: XR CHEST PA LATERAL 2 VIEWS REASON FOR STUDY: cough Pt has flight of ideas and multiple medical complaints arrived via [facility] discharged from [facility] this AM. Smoker TECHNIQUE: Frontal and lateral [...] Electronically signed by Ml Foster M.D. SN: Report ID: [id number] Reading Location: [id number] Procedure Note Ml Foster MD - 10/17/2024 EXAM DESCRIPTION: XR CHEST PA LATERAL 2 VIEWS REASON FOR STUDY: cough Pt has flight of ideas and multiple medical complaints [facility]. Smoker TECHNIQUE: Frontal and lateral [...] Electronically signed by Ml Foster M.D. SN: Report ID: [id number] Reading Location: [id number] Tre Roche MD IMG XR PROCEDURES Final Result * ECG 12 lead (10/17/2024 12:07 AM CDT) 10/17/2024 12:0 7 AM CDT Narrative [facility] - 10/17/2024 6:47 AM CDT Vent Rate: 84 bpm RR Interval: 709 msec FL Interval: 111 msec QRS Duration: 96 msec QT Interval: 362 msec QTC Interval: 403 msec P-R-T [place]: 80 - 73 - 64 degrees IMPRESSION: Baseline artifact, probable SINUS RHYTHM WITH SHORT FL INTERVAL LEFT ATRIAL ENLARGEMENT [-0.15mV P WAVE IN V1/V2] POSSIBLE LEFT VENTRICULAR HYPERTROPHY [VOLTAGE CRITERIA PLUS LAE OR QRS WIDENING] ABNORMAL ECG NO CHANGE FROM PREVIOUS TRACING NOTED Electronically Signed By: Francois Casarez MD Jamarcus Irvin MD ECG ORDERABLES Final Result [facility] * (ABNORMAL) Drugs of Abuse Screen, Urine [...] last reviewed 2022. Urine Creatinine 87 mg/dL [facility] ([facility]) Comment: Interpretive Data Urine Creatinine: < 10 mg/dL is extremely dilute = or > 10 but < 20 mg/dL is dilute = or > 20 mg/dL is normal Current Interpretive Data was last revised on 2017. Urine 09/18/2024 1:07 PM CDT 09/18/2024 1:12 PM CDT Narrative [facility] ([facility]) - 09/18/2024 1:39 PM CDT Drug of Abuse screening is performed by immunoassay for medical purposes only. This is not to be used for Pain Management purposes. Tre Roche MD LAB URINE ORDERABLES Final Res ult [facility] SM[facility] ([place]) [address] [facility] Department [place] [address] from Last 3 Months Insurance [facility] Advance Directives For more information, please contact: [phone] * Full Code (Latest Code Status on File) Date Activated Date Inactivated Comments 10/20/2023 12:17 PM 10/20/2023 8:58 PM Care Teams Financial Management Consultant Relationship Specialty Start Date End Date Christofer Stewart MD PCP - General Family Medicine 06/23/23
--- OUTSIDE RECORDS SUMMARY | 2024-10-17 21:52 | XMS_ITS | Encounter Summary ---
Author Organization [facility] Address [facility] [place] [address] Care Team Providers Care Teletype Mechanic Name Role Phone None, Provider Primary Care Provider Francisco Javier Santana MD Primary Care Provider [phone] Encounter Details Date Type Department Care Team (Late st Contact Info) Description 07/31/2018 Abstract [facility] CON[facility] [address] [place] [address] , Generic Conversion, Social History [...] Diagnoses Not on filedocumented in this encounter Additional Health Concerns Infection Onset Date Last Indicated Resolved Time COVID-19 Rule Out 10/17/2024 10/17/2024 10/17/2024 5:06 PM CDT documented as of this encounter Care Teams Teletype Mechanic Relationship Specialty Start Date End Date None, Provider, PCP - General UNKNOWN PHYSICIAN SPECIALTY 07/13/23 06/04/24 Francisco Javier Ivan MD [address] [place] [address] PCP - General FAMILY PRACTICE 06/05/24 documented as of this encounter
--- OUTSIDE RECORDS SUMMARY | 2024-10-17 21:52 | XMS_ITS | Clinical Summary ---
Author Organization [facility] Address [facility] [place] [address] Care Team Providers Care Senior Mechanical Project Engineer Name Role Phone Francisco Javier Ivan MD Primary Care Provider [phone] Allergies Active Allergy Reactions Criticality Noted Date Comments Codeine Anaphylaxis,Shortnes s of Breath High 07/13/2015 Ketorolac Other (see comment) 07/13/2015 Rapid Heart Rate Naproxen GI Upset 07/13/2015 No problems with Ibuprofen Penicillins Unknown 07/13/2023 Medications ARIPiprazole (ABILIFY) 5 MG tablet Take 1 tablet (5 mg total) by mouth daily. 05/17/2024 Active buPROPion SR (WELLBUTRIN SR) 150 MG 12 hr tablet Take 1 tablet (150 mg total) by mouth 2 (two) times daily. 08/07/2024 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 Encounters Date Type Department Care Team Description 10/17/2024 2:59 PM CDT - 10/17/2024 8:00 PM CDT Emergency [facility] [address] [place] [address] [address] [place] [address] Familia Membreno MD Medical Problem Discharge Disposition: Home or Self Care (Routine Discharge) 10/17/2024 Travel from Last 3 Months Social History Tobacco Use Types Packs/Day Years Used Date Smoking Tobacco: Every Day Cigarettes Smokeless Tobacco: Never Tobacco Cessation:Ready to Q uit: Not Asked; Counseling Given: Not Answered Alcohol Use Standard Drinks/Week Comments Never 0 (1 standard drink = 0.6 oz pur e alcohol) [facility] Utilities Answer Date Recorded In the past 12 months has th e electric, gas, oil, or water company threatened [...] Mass Index 19.65 10/17/2024 3:00 PM CDT Plan of Treatment Health Maintenance [...] topic Meningococcal Vaccine Aged Out No jeff snadro eligible based on patient's age to complete this topic RSV Immunizations Under 20 Months Aged Out No longer eligible based on patient's age to complete this topic Procedures Procedure Name Priority Date/Time Associated Diagnosis Comments DRUG SCREEN RAPID STAT 10/17/2024 4:1 5 PM CDT ETHANOL STAT 10/17/2024 4:12 PM CDT BASIC METABOLIC PANEL STAT 10/17/2024 4:12 PM CDT CBC W/DIFF AUTOMATED STAT 10/17/2024 4:12 PM CDT CORONAVIRUS (COVID-19) ANTIGEN STAT 10/17/2024 4:05 PM CDT ECG 12-LEAD Routine 10/17/2024 3:31 PM CDT HEPATITIS PANEL,ACUTE Routine 10/13/2023 3:24 AM CDT from Last 3 Months or Most Recently Relevant to Health Maintenance Results * (ABNORMAL) DRUG SCREEN RAPID (10/17/2024 4:15 PM CDT) CANNABINOIDS SCREEN (U) NEGATIVE NEGATIVE 10/17/2024 4:50 PM CDT [facility] PHENCYCLIDINE PCP (U) NEGATIVE NEGATIVE 10/17/2024 4:50 PM CDT [facility] COCAINE METABOLITES (U) NEGATIVE NEGATIVE 10/17/2024 4:50 PM CDT [facility] METHAMPHETAMINE SCREEN (U) POSITIVE(A) NEGATIVE 10/17/2024 4:50 PM CDT [facility] OPIATE SCREEN (U) NEGATIVE NEGATIVE 025 4:50 PM CDT [facility] AMPHETAMINE SCREEN (U) POSITIVE(A) NEGATIVE 10/17/2024 4:50 PM CDT [facility] BENZODIAZEPINES SCREEN (U) NEGATIVE NEGATIVE 10/17/2024 4:50 PM CDT [facility] TRICYCLIC ANTIDEPRESSANT SCREEN (U) NEGATIVE NEGATIVE 10/17/2024 4:50 PM CDT [facility] METHADONE (U) NEGATIVE NEGATIVE 10/17/2024 4:50 PM CDT [facility] BARBITURATES SCREEN (U) POSITIVE(A) NEGATIVE 10/17/2024 4:50 PM CDT [facility] OXYCODONE SCREEN (U) NEGATIVE NEGATIVE 10/17/2024 4:50 PM CDT [facility] URINE TOX COMMENT THIS TEST METHODOLOGY IS DESIGNED AND OFFERED A RAPID TURNAROUND, QUALITATIVE SCREENING PROCEDURE TO AID IN THE IMMEDIATE MEDICAL ASSESSMENT OF PATIENTS SUSPECTED OF SUBSTANCE ABUSE. 10/17/2024 4:24 PM CDT [facility] Comment: CLINICAL CONSIDERATION AND PROFESSIONAL JUDGMENT MUST BE APPLIED TO ANY DRUG OF ABUSE TEST RESULT, BOTH POSITIVE AND NEGATIVE. CONFIRMATORY QUANTITATIVE RESULTS ARE AVAILABLE THROUGH OUR [facility]. URINE SPECIMEN / Unknown 10/17/2024 4:15 PM CDT Familia Membreno MD URINE ORDERABLES Final Result [facility] [address] [place] [address], * (ABNORMAL) BASIC METABOLIC PANEL (10/17/2024 4:12 PM CDT) SODIUM S/P/B 140 136 - 145 MMOL/L 10/17/2024 5:06 PM CDT [facility] POTASSIUM S/P/B 3.5 3.5 - 5.1 MMOL/L 10/17/2024 5:06 PM CDT [facility] CHLORIDE S/P/B 103 98 - 107 MMOL/L 10/17/2024 5:06 PM CDT [facility] CO2 27.0 21.0 - 32.0 MMOL/L 10/17/2024 5:06 PM CDT [facility] GLUCOSE 98 70 - 99 MG/DL 10/17/2024 5:06 PM CDT [facility] Comment: FASTING GLUCOSE 100 TO 125 MG/DL IS CONSISTENT WITH IMPAIRED FASTING GLUCOSE. FASTING GLUCOSE >125 MG/DL IS CONSISTENT WITH DIABETES. RANDOM GLUCOSE >200 MG/DL WITH HYPERGLYCEMIC SYMPTOMS IS CONSISTENT WITH DIABETES. PER ADA GUIDELINES BUN 18 6 - 24 MG/DL 10/17/2024 5:06 PM CDT [facility] CREATININE S/P/B 1.18(H) 0.55 - 1.02 MG/DL 10/17/2024 5:06 PM CDT [facility] CALCIUM S/P/B 10.0 8.4 - 10.5 MG/DL 10/17/2024 5:06 PM CDT [facility] ANION GAP 10.0 5.0 - 15.0 MMOL/L 10/17/2024 5:06 PM CDT [facility] OSMOLALITY (CALC) 292 MOSM/KG 025 5:06 PM T [facility] Comment:REFERENCE RANGE NOT ESTABLISHED GFR ESTIMATE 59(L) >89 ML/MIN/1. 73 M2 10/17/2024 5:06 PM CDT [facility] GFR NOTES GFR REFERENCE S: 10/17/2024 5:06 PM T [facility] Comment: THE ESTIMATED GFR IS [...] <15 ml/min/1.73 m2 10/17/2024 4:12 PM CDT us Familia Membreno MD LABORATORY Final Result [facility] [address] [place] [address], * (ABNORMAL) CBC W/DIFF AUTOMATED (10/17/2024 4:12 PM CDT) WBC 7.54 4.00 - 10.80 x10'3/uL 10/17/2024 4:47 PM CDT [facility] RBC 4.46 4.10 - 5.40 x10'6/uL 10/17/2024 4:47 PM CDT [facility] HGB 13.8 12.0 - 16.0 G/DL 10/17/2024 4:47 PM CDT [facility] HCT 40.3 36.0 - 47.0 % 10/17/2024 4:47 PM CDT [facility] MCV 90.4 78.0 - 100.0 FL 10/17/2024 4:47 PM CDT [facility] MCH 30.9 27.0 - 31.0 PG 10/17/2024 4:47 PM CDT [facility] MCHC 34.2 33.0 - 36.0 G/DL 10/17/2024 4:47 PM CDT [facility] RDW 12.5 11.5 - 14.5 % 10/17/2024 4:47 PM CDT [facility] PLT 470(H) 150 - 350 x10'3/uL 10/17/2024 4:47 PM CDT [facility] MPV 10.1 7.4 - 10.4 FL 10/17/2024 4:47 PM CDT [facility] CBC COMMENT NORMAL REFERENCE RANGE NOT ESTABLISHED FOR THE PROPORTIONAL LEUKOCYTE DIFFERENTIAL. 10/17/2024 4:47 PM CDT [facility] NEUTROPHILS % 66.6 % 10/17/2024 4:47 PM CDT [facility] LYMPHOCYTES % 24.8 % 10/17/2024 4:47 PM CDT [facility] MONOCYTES % 7.0 % 10/17/2024 4:47 PM CDT [facility] EOSINOPHILS % 0.5 % 10/17/2024 4:47 PM CDT [facility] BASOPHILS % 0.8 % 10/17/2024 4:47 PM CDT [facility] IMMATURE GRANS % 0.3 % 10/18/19 4:47 PM CDT [facility] NRBC % 0.0 % 10/17/2024 4:47 PM CDT [facility] ABS. NEUTROPHILS 5.02 1.60 - 8.30 x10'3/uL 10/17/2024 4:47 PM CDT [facility] ABS. LYMPHOCYTES 1.87 0.80 - 4.70 x10'3/uL 10/17/2024 4:47 PM CDT [facility] ABS. MONOCYTES 0.53 0.00 - 1.50 x10'3/uL 10/17/2024 4:47 PM CDT [facility] ABS. EOSINOPHILS 0.04 0.00 - 0.40 x10'3/uL 10/17/2024 4:47 PM CDT [facility] ABS. BASOPHILS 0.06 0.00 - 0.20 x10'3/uL 10/17/2024 4:47 PM CDT [facility] ABS. IMMATURE GRANULOCYTES 0.02 0.00 - 0.03 x10'3/uL 10/17/2024 4:47 PM CDT [facility] ABS. NUCLEATED RBC'S 0.00 0.00 - 0.01 x10'3/uL 10/17/2024 4:47 PM CDT [facility] 10/17/2024 4:12 PM CDT Familia Membreno MD LABORATORY Final Result [facility] [address] [place] [address], * ETHANOL (10/17/2024 4:12 PM CDT) ALCOHOL S/P/B <0.003 <0.003 G/DL 10/17/2024 5:06 PM CDT [facility] 10/17/2024 4:12 PM CDT us Familia Membreno MD LABORATORY Final Result Performing Organization Address [facility]/[place] [address], * CORONAVIRUS (COVID-19) ANTIGEN (10/17/2024 4:05 PM CDT) CORONAVIRUS ANTIGEN [place] NEGATIVE NEGATIVE 10/17/2024 5:06 PM CDT [facility] Comment: NEGATIVE RESULTS DO NOT RULE [...] SPECIMEN TYPE NASAL 10/17/2024 4:43 PM CDT [facility] NASAL NASAL STRUCTURE / Unknown 10/17/2024 4:05 PM CDT us Familia Membreno MD MICROBIOLOGY - GENERAL ORDERAB LES Final Result Performing Organization Address [facility] Co de Phone Number [facility] [address] [place] [address], * ECG 12 lead (10/17/2024 3:31 PM CDT) 10/17/2024 3:31 PM CDT Narrative [facility] - 10/17/2024 7:04 PM CDT [address] [place] [address] Test Date: 2024-10-17 Pat Name: JJ ROUSE Department: 3 Room: [place] [address] Gender: Female Control Officer: : 1980 Requested By: IVAN MEMBRENO Order Number: [id number] Dianne MD: Elenita Leggett Measurements Intervals [place] Rate: 86 P: 81 AR: 130 QRS: 81 QRSD: 98 T: 82 QT: 361 QTc: 434 Interpretive Statements SINUS RHYTHM POSSIBLE RIGHT ATRIAL ENLARGEMENT Procedure Note Elenita Leggett MD - 10/17/2024 [facility] [address] [place] [address] Test Date: 2024-10-17 Pat Name: JJ ROUSE Department: 3 Room: EXAM 707 Gender: Female Control Officer: : 1980 Requested By: IVAN MEMBRENO Order Number: [id number] Reading MD: Elenita Leggett Measurements Intervals [place] Rate: 86 P: 81 AR: 130 QRS: 81 QRSD: 98 T: 82 QT: 361 QTc: 434 Interpretive Statements SINUS RHYTHM POSSIBLE RIGHT ATRIAL ENLARGEMENT Familia Membreno MD ECG ORDERABLES Final Result [facility] * HEPATITIS PANEL,ACUTE (10/13/2023 3:24 AM CDT) HEPATITIS B SURFACE AG NON-REACT VARGHESE NON-REACT VARGHESE 10/13/2023 1:41 PM CDT [facility] Comment:HBsAg NOT DETECTED. HEP B CORE IGM NON-REACT VARGHESE NON-REACT VARGHESE 10/13/2023 1:41 PM CDT [facility] Comment: IgM ANTI HBc NOT DETECTED. DOES NOT EXCLUDE THE POSSIBILITY OF EXPOSURE TO OR INFECTION WITH HBV. NO RETEST REQUIRED. HIGH DOSES OF BIOTIN MAY INTERFERE WITH THIS TEST RESULT. CORRELATION TO CLINICAL HISTORY AND PRESENTATION RECOMMENDED. HAV IGM NON-REACT VARGHESE NON-REACT VARGHESE 10/13/2023 1:41 PM CDT [facility] Comment: IgM ANTI HAV NOT DETECTED. DOES NOT EXCLUDE THE POSSIBILITY OF EXPOSURE TO OR INFECTION WITH HAV. LEVELS OF IgM ANTI HAV MAY BE BELOW THE CUTOFF IN EARLY INFECTION. HEPATITIS C AB NON-REACT VARGHESE NON-REACT VARGHESE 10/13/2023 1:42 PM CDT [facility] Comment: ANTIBODIES TO HCV NOT DETECTED. DOES NOT EXCLUDE THE POSSIBILITY OF EXPOSURE TO HCV. 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
--- OUTSIDE RECORDS SUMMARY | 2024-10-17 21:53 | XMS_ITS | Encounter Summary ---
Author Organization [facility] Address [address] [place] [id number] Care Team Providers Care Shank Cementer Hand Name Role Phone Francisco Javier Ivan MD Primary Care Provider [phone] Encounter Details Date Type Department Care Team (Latest Contact Info) Description 10/17/2024 Travel Social History Tobacco Use Types Packs/Day Years Used Date Smoking Tobacco: Every Day Cigarettes Smokeless Tobacco: Never Alcohol Use Standard Drinks/Week Comments Never 0 (1 standard drink = 0.6 oz pur e alcohol) [facility] Utilities Answer Date Recorded In the past 12 months has e [employer], gas, oil, or water [employer] threatened to shut off services in your [...] any time in the past 12 m [facility], were you homeless or living [...] AM CDT Lina Boogie RN Active * Are you [...] Assessment Author Status Yes 10/13/2023 6:54 AM CDT Lina Boogie RN Active * Calculated C-SSRS Risk Score (Lifetime/Recent) Answer Date of Assessment Author Status No Risk Indicated 10/17/2024 3:02 PM CDT Ilana Toscano RN Active * [place] Suicide Severity Rating Scale (Screener/Recent Self-Report) Question [...] Boogie RN Active documented in this encounter Plan of Treatment Not on file documented as of this encounter Visit Diagnoses Not on filedocumented in this encounter Additional Health Concerns Infection Onset Date Last Indicated Resolved Time COVID-19 Rule Out 10/17/2024 10/17/2024 10/17/2024 5:06 PM CDT documented as of this encounter Care Teams Shank Cementer Hand Relationship Specialty Start Date End Date Francisco Javier Ivan MD [address] [place] [address] PCP - General FAMILY PRACTICE 06/05/24 documented as of this encounter
[2024-10-17 22:15] VITALS: BP 113/67; PULSE 74; RESP 18; TEMP 36.6; O2SAT 100
--- NOTE | 2024-10-20 14:15 | PC.NURSE ---
final urine culture report reviewed. < 10,000bacteria colony forming. not considered to be clinically significant. no change in plan of care
== END 2024-10-17 22:15 | disposition home or self-care (01) ==
PROVIDERS: Emergency Provider Family Medicine
DX: F41.9 Anxiety disorder, unspecified (principal); R10.84 Generalized abdominal pain; N30.00 Acute cystitis without hematuria; F17.210 Nicotine dependence, cigarettes, uncomplicated
CPT/HCPCS: 81001; 87086; 99283

== ENCOUNTER 2024-10-17 23:30 | Emergency (ER) | payer OTHER, SELFPAY ==
--- OUTSIDE RECORDS SUMMARY | 2024-09-28 05:40 | XMS_ITS ---
Author Organization [facility] Address [address] [place] [address] Care Team Providers Care Jewelry Mold Maker Name Role Phone Alana Epps Primary Care Provider Ana Verma [phone] REASON FOR VISIT new patient Social History Sex Assigned At : Social History Observation Description Sex Assigned At Female Encounters Encounter Location Date Provider Diagnosis [facility] [address] [place] [address] 09/28/2024 Ana Verma Plan Of Treatment No Information Progress Notes * PADMA BradsyedDOB:1980 (44 yo F)Acc No.[id number]:09/28/2024 UNLOCKED PROGRESS NOTE Patient: Jaycee AYALA Provider: ALCON Nash, EDITOR HOUSE ORGAN, PMHNP-BC :1980 A ge:44 Y S ex:Female Date:09/28/2024 Address:[address] [facility] Pcp:Alana Epps Subjective: * Chief Complaints: * 1 . New patient. * Medical History: Objective: * Vitals: Assessment: Plan: * Treatment: * * Electronic signature of Anton Verma on 10/18/2024 at 01:15 AM CDT Sign off status: Pending * Provider: Peg Verma MSN, EDITOR HOUSE ORGAN, PMHNP-BC Date: 0 09/28/2024 Generated for Printing/Faxing/eTransmitting on: 0 10/18/2024 01:15 AM CDT
--- OUTSIDE RECORDS SUMMARY | 2024-09-29 04:20 | XMS_ITS ---
Author Organization [facility] Address [address] [place] [address] Care Team Providers Care Finished Carpet Inspector Name Role Phone Alana Epps Primary Care Provider [phone] Leandro Harris [phone] REASON FOR VISIT new patient Social History Sex Assigned At : Social History Observation Description Sex Assigned At Female Encounters Encounter Location Date Provider Diagnosis [address] [place] [address] 09/29/2024 Leandro Harris Plan Of Treatment No Information Progress Notes * PADMABradsyedDOB:1980 (44 yo F)Acc No.[id number]:09/29/2024 UNLOCKED PROGRESS NOTE Patient: Jaycee AYALA Provider: Sasha Harris DNP, PMHNP-BC :1980 A ge:44 Y S ex:Female Date:09/29/2024 [facility] [facility] Pcp:Alana Epps Subjective: * Chief Complaints: * 1 . New patient. * Medical History: Objective: * Vitals: Assessment: Plan: * Treatment: * * Electronic signature of Kanu Harris APRN, [id number] on 10/18/2024 at 01:15 AM CDT Sign off status: Pending * Provider: Sasha Harris DNP, PMHNP-BC Date: 09/29/2024 Generated for Roland felder/Karina/eTransmitting on: 10/18/2024 01:15 AM CDT
--- OUTSIDE RECORDS SUMMARY | 2024-10-06 03:20 | XMS_ITS ---
Author Organization [facility] Address [address] [place] [address] Care Team Providers Care Magisterial District Judge Name Role Phone Alana Epps Primary Care Provider REASON FOR VISIT 1 week f/u Social History Sex Assigned At : Social History Observation Description Sex Assigned At Female Encounters Encounter Location Date Provider Diagnosis [place] [address] [place] [address] 10/06/2024 Alana Epps Plan Of Treatment No Information Progress Notes * Jaycee ROUSEDOB:1980 (44 yo F)Acc No.[id number]:10/06/2024 UNLOCKED PROGRESS NOTE Patient: Jaycee AYALA Provider: Sasha Epps MSN, APARTMENT LEASING AGENT, HANDKERCHIEF FOLDER-C :1980 A ge:44 Y S ex:Female Date:10/06/2024 Address:[address] [facility] Subjective: * Chief Complaints: * 1 . 1 week f/u. * Medical History: Objective: * Vitals: Assessment: Plan: * Treatment: * Care Plan Details* * Electronic signature of Guera Epps APRN, [id number] on 10/18/2024 at 01:15 AM CDT Sign off status: Pending * Provider: Sasha Epps MSN, APARTMENT LEASING AGENT, HANDKERCHIEF FOLDER-C Date: 0 10/06/2024 Generated for Roland felder/Karina/eTransmitting on: 0 10/18/2024 01:15 AM CDT
--- OUTSIDE RECORDS SUMMARY | 2024-10-17 01:35 | XMS_ITS | Encounter Summary ---
Author Organization [facility] Healthcare Address [address] [place] [address] Care Team Providers Care Wire Mesh Gate Assembler Name Role Phone Christofer Stewart MD Primary Care Provider Reason for Visit * Reason Comments Chest Pain Pt discharged from [facility] this am pt called 911 said she had no pulse pt states 'my eye are dilated but I didn't do any drugs I think someone poisoned me with strychnine cause I'm in cardiac shock' Encounter Details Date Type Department Care Team (Late st Contact Info) Description 10/17/2024 1:35 AM CDT - 10/17/2024 2:55 AM CDT Emergency [facility] Emergency Department [address] [place] [address] Jamarcus Irvin MD [address] [facility] [place] [address] Tre Roche MD [address] [place] [address] [address] Chest pain, unspecified type (Primary Dx) Discharge [...] on file 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 * Chest Pain, Noncardiac (Eritrean) documented in this encounter Discharge Disposition Disposition Code Departure Means Destination Comment s Discharge to home or self care documented in this encounter ED Notes * Tre Roche MD - 10/17/2024 2:18 AM CDT HPI Chief Complaint Patient presents with ??? Chest Pain Pt discharged from [facility] this am pt called 911 said she [...] ideas and multiple medical complaints arrived via [facility] discharged from [facility] this am documented in this encounter Miscellaneous [...] ideas and multiple medical complaints arrived via [facility] discharged from [facility] this AM. Smoker TECHNIQUE: Frontal and lateral [...] Ml Foster M.D. SN: SN Report ID: [id number] Reading Location: [id number] Procedure Note Ml Foster MD - 10/17/2024 EXAM DESCRIPTION: XR CHEST PA LATERAL 2 VIEWS REASON FOR STUDY: cough Pt has flight [facility] and [facility]. Smoker TECHNIQUE: Frontal and lateral [...] Ml Foster M.D. SN: SN Report ID: [id number] Reading Location: [place] [address] [place] Tre Roche MD IMG XR PROCEDURES Final Result * ECG 12 lead (10/17/2024 12:07 AM CDT) 10/17/2024 12:0 7 AM CDT Narrative [facility] - 10/17/2024 6:47 AM CDT Vent Rate: 84 bpm RR Interval: 709 msec MA Interval: 111 msec QRS Duration: 96 msec QT Interval: 362 msec QTC Interval: 403 msec P-R-T [place]: 80 - 73 - 64 degrees IMPRESSION: Baseline artifact, probable SINUS RHYTHM WITH SHORT MA INTERVAL LEFT ATRIAL ENLARGEMENT [-0.15mV P WAVE IN V1/V2] POSSIBLE LEFT VENTRICULAR HYPERTROPHY [VOLTAGE CRITERIA PLUS LAE OR QRS WIDENING] ABNORMAL ECG NO CHANGE FROM PREVIOUS TRACING NOTED Electronically Signed By: Francois Casarez MD us Jamarcus Irvin MD ECG ORDERABLES Final Result [facility] documented in this encounter Visit Diagnoses Diagnosis Chest pain, unspecified type- Primary documented in this encounter Care Teams Wire Mesh Gate Assembler Relationship Specialty Start Date End Date Christofer Stewart MD PCP - General Family Medicine 06/23/23 documented as of this encounter
--- OUTSIDE RECORDS SUMMARY | 2024-10-17 14:59 | XMS_ITS | Encounter Summary ---
Author Organization [facility] Address [facility] [place] [address] Care Team Providers Care Glass Carrier Name Role Phone Francisco Javier Ivan MD Primary Care Provider Reason for Visit * Reason Comments Medical Problem Encounter Details Date Type Department Care Team (Late st Contact Info) Description 10/17/2024 2:59 PM CDT - 10/17/2024 8:00 PM T Emergency [facility] [facility] [place] [address] Familia Membreno MD [address] [place] [address] Medical Problem Discharge Disposition: Home or Self Care (Routine Discharge) Social History Tobacco Use Types Packs/Day Years Used Date Smoking Tobacco: Every Day Cigarettes Smokeless Tobacco: Never Alcohol Use Standard Drinks/Week Comments Never 0 (1 standard drink = 0.6 oz pur e alcohol) [facility] Utilities Answer Date Recorded In the past 12 months has [facility] [employer], oil, or water [employer] threatened to shut off services in your [...] the past 12 m [facility], were you homeless or living in a [...] PM CDT Ilana Toscano RN Active * [place] Suicide Severity Rating Scale (Screener/Recent Self-Report) Question [...] Everywhere. * Treatment for substance use disorder (Brazilian) documented in this encounter Medications at Time [...] RN - 10/17/2024 6:36 PM CDT Called [facility] crisis line spoke with marco, states that she will call back once she has asETA. * Familia Membreno MD - 10/17/2024 3:39 PM CDT Chief Complaint Chief Complaint Patient presents with Medical Problem History of Present Illness .HPI: 44-year-old female past medical history of polysubstance abuse, bipolar, presenting to the emergency department for concern that the [facility] is poisoning her. She states that he [...] encounter of 10/17/24 ECG 12 lead Narrative [address] [place] [address] Test Date: 2024-10-17 Pat Name: JJ ROUSE Department: 3 Room: EXAM 707 Gender: Female Issuer: : 1980 Requested By: IVAN MEMBRENO Order Number: [id number] Reading MD: Elenita Leggett Measurements Intervals [place] Rate: 86 P: 81 GA: 130 QRS: 81 QRSD: 98 T: 82 [...] the patient was deemed to be [facility] and is well-known to the community she continues to abuse polysubstance and this contributes to her delusions however at this time she was deemed not to be a harm to self or others and stable for discharge No new prescriptions Amount and/or Complexity of Data Reviewed Labs: ordered. ECG/medicine tests: ordered. 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 [4] Social History Tobacco Use Smoking status: Every Day Current packs/day: 0.50 Types: Cigarettes Smokeless tobacco: Never Vaping Use Vaping status: Never Used Substance Use Topics Alcohol use: Never Drug use: Never Familia Membreno MD 10/17/242112 * Daylin Toscano RN - 10/17/2024 3:01 PM CDT Patient arrives via [facility] with c/o the [facility] is [facility] me and I'm goinginto septic shock. When asked why she is thinks she is going into shock states rat poison from the [facility]. EMS stated she had been to [facility] and [facility] today already. They have had multiple calls [...] RAPID (10/17/2024 4:15 PM CDT) Pathologist [facility] CANNABINOIDS SCREEN (U) NEGATIVE NEGATIVE 10/17/2024 4:50 [...] URINE ORDERABLES Final Result Performing Organization Address City/[facility]/ZIP Co de Phone Number [facility] [address] [place] [address], * ETHANOL (10/17/2024 4:12 PM CDT) ALCOHOL S/P/B <0.003 <0.003 G/DL 10/17/2024 5:06 PM CDT [facility] 10/17/2024 4:12 PM CDT us Familia Membreno MD LABORATORY Final Result Performing Organization Address [facility] Co de Phone Number [facility] [address] [place] [address], * (ABNORMAL) BASIC METABOLIC PANEL (10/17/2024 4:12 [...] NOTES GFR REFERENCE S: 10/17/2024 5:06 PM [facility] Comment: THE ESTIMATED GFR IS [...] Result [facility] [address] [place] [address], * (ABNORMAL) CBC W/DIFF AUTOMATED (10/17/2024 4:12 [...] Result [facility] [address] [place] [address], * CORONAVIRUS (COVID-19) ANTIGEN (10/17/2024 4:05 PM [...] Final Result [facility] [place] [id number], * ECG 12 lead (10/17/2024 3:31 PM CDT) 10/17/2024 3:31 PM CDT Narrative [facility] - 10/17/2024 7:[address] [place] [address] Test Date: 2024-10-17 Pat Name: JJ ROUSE Department: 3 Room: [place] [address] Gender: Female Issuer: : 1980 Requested By: IVAN MEMBRENO Order Number: [id number] Reading MD: Elenita Leggett Measurements Intervals [place] Rate: 86 P: 81 GA: 130 QRS: 81 QRSD: 98 T: 82 QT: 361 QTc: 434 Interpretive Statements SINUS RHYTHM POSSIBLE RIGHT ATRIAL ENLARGEMENT Procedure Note Elenita Leggett MD - 10/17/[address] [place] [address] Test Date: 2024-10-17 Pat Name: JJ ROUSE Department: 3 Room: EXAM 707 Gender: Female Issuer: : 1980 Requested By: IVAN MEMBRENO Order Number: [id number] Reading MD: Elenita Leggett Measurements Intervals [place] Rate: 86 P: 81 GA: 130 QRS: 81 QRSD: 98 T: 82 QT: 361 QTc: 434 Interpretive Statements SINUS RHYTHM POSSIBLE RIGHT ATRIAL ENLARGEMENT us Familia Membreno MD ECG ORDERABLES Final Result [facility] documented in this encounter Visit Diagnoses Diagnosis Polysubstance abuse (CMS/HCC)- Primary Other, mixed, or unspecified nondependent drug abuse, unspecified documented in this encounter Additional Health Concerns Infection Onset Date Last Indicated Resolved Time COVID-19 Rule Out 10/17/2024 10/17/2024 10/17/2024 5:06 PM CDT documented as of this encounter Care Teams Glass Carrier Relationship Specialty Start Date End Date Francisco Javier Ivan MD [address] [address] PCP - General FAMILY PRACTICE 06/05/24 documented as of this encounter
--- NOTE | 2024-10-17 23:38 | ECG_ITS ---
Test Date: 2024-10-17 23:43:30 Measurements Intervals [place] Rate: 76 P: 50 CT: 125 QRS: 67 QRSD: 86 T: 62 QT: 372 QTc: 419 Interpretive Statements SINUS RHYTHM MINIMAL Q WAVES- INF/LAT LEADS BASELINE ARTIFACT- I, III, AVL BORDERLINE ECG Compared to ECG 10/16/2024 10:39:17 NO SIGNIFICANT CHANGE Electronically Signed On 10-18-2024 06:23:17 CDT by Sonny Velasco D.O.
[2024-10-17 23:39] VITALS: BP 118/80; PULSE 75; RESP 16; TEMP 36.7; O2SAT 100
--- NOTE | 2024-10-17 23:52 | PC.NURSE ---
pt to data analysis intern i cant wait with these people. I need to go back to the back now. This rn explained triage process.
[2024-10-18 00:58] LABS: Hematocrit 39.8 % (37.0-47.0); Hemoglobin 13.0 g/dL (12.0-15.0); Immature Granulocyte Percent A 0.3 % (0-0.5); Lymphocytes Absolute Auto 2.50 K/mm3 (0.9-3.2); Mean Corpuscular HGB Conc 32.7 g/dl (32-36); Mean Corpuscular Hemoglobin 30.3 pg (26-34); Mean Corpuscular Volume 92.8 fl (80-100); Nucleated Red Blood Cells Absolute Auto 0.000 K/mm3 (0.0-0.012); Nucleated Red Blood Cells Perc 0.0 % (0.0-0.2); Platelet Count Result 454 k/mm3 (150-375); Red Blood Count 4.29 M/mm3 (4.2-5.4); White Blood Count 8.6 K/mm3 (4.5-10.0)
[2024-10-18 01:08] LABS: Alanine Aminotransferase 27 U/L (6-35); Albumin Level 4.7 g/dL (3.5-5.1); Alkaline Phosphatase 93 U/L (38-126); Anion Gap 9 mmol/L (4-12); Aspartate Amino Transferase 34 U/L (14-36); Bilirubin,Total 0.6 mg/dL (0.2-1.3); Blood Urea Nitrogen 19 mg/dL (7-17); Calcium 9.8 mg/dL (8.4-10.2); Carbon Dioxide 25 mmol/L (22-30); Chloride 105 mmol/L (98-107); Estimated CRCL calculation 52 ml/min; Estimated Glomerular Filt Rate > 60; Glucose 103 mg/dL (65-110); Lipase 187 U/L (23-300); Potassium 3.6 mmol/L (3.4-5.0); Sodium 139 mmol/L (137-145); Total Protein 8.2 g/dL (6.3-8.2)
--- OUTSIDE RECORDS SUMMARY | 2024-10-18 01:15 | XMS_ITS | Encounter Summary ---
Author Organization [facility] Address [facility] [place] [address] Care Team Providers Care Emergency Room Physician Name Role Phone None, Provider Primary Care Provider Francisco Javier Santana MD Primary Care Provider [phone] Encounter Details Date Type Department Care Team (Late st Contact Info) Description 07/31/2018 Abstract [facility] CONVERSION [address] [place] [address] , Generic Conversion, Social History [...] documented as of this encounter Care Teams Emergency Room Physician Relationship Specialty Start Date End Date None, Provider, PCP - General UNKNOWN PHYSICIAN SPECIALTY 07/13/23 06/04/24 Francisco Javier Ivan MD [address] [place] [id number] PCP - General FAMILY PRACTICE 06/05/24 documented as of this encounter
--- OUTSIDE RECORDS SUMMARY | 2024-10-18 01:15 | XMS_ITS | Clinical Summary ---
Author Organization [facility] Address Formerly [facility] [place] [address] Care Team Providers Care Pump House Operator Name Role Phone Francisco Javier Ivan MD Primary Care Provider [phone] Allergies Active Allergy Reactions Criticality Noted Date [...] CDT - 10/17/2024 8:00 PM CDT Emergency [facility] [address] [place] [address] [address] [place] [address] Familia Membreno MD Medical Problem Discharge [...] e alcohol) [facility] Utilities Answer Date Recorded In the past [...] any time in the past 12 m [facility], were you homeless or living in a mcc (including now)? Yes 10/13/2023 Comments No Sex [...] (U) NEGATIVE NEGATIVE 10/17/2024 4:[address] [facility] PHENCYCLIDINE PCP (U) NEGATIVE NEGATIVE 10/17/2024 4:[address] [facility] COCAINE METABOLITES (U) NEGATIVE NEGATIVE 10/17/2024 4:[address] [facility] METHAMPHETAMINE SCREEN (U) POSITIVE(A) NEGATIVE 10/17/2024 4:[address] [facility] OPIATE SCREEN (U) NEGATIVE NEGATIVE 025 4:[address] [facility] AMPHETAMINE SCREEN (U) POSITIVE(A) NEGATIVE 10/17/2024 4:[address] [facility] BENZODIAZEPINES SCREEN (U) NEGATIVE NEGATIVE 10/17/2024 4:[address] [facility] TRICYCLIC ANTIDEPRESSANT SCREEN (U) NEGATIVE NEGATIVE 10/17/2024 4:[address] [facility] METHADONE (U) NEGATIVE NEGATIVE 10/17/2024 4:[address] [facility] BARBITURATES SCREEN (U) POSITIVE(A) NEGATIVE 10/17/2024 4:[address] [facility] OXYCODONE SCREEN (U) NEGATIVE NEGATIVE 10/17/2024 4:[address] [facility] URINE TOX COMMENT THIS TEST METHODOLOGY IS DESIGNED AND OFFERED A RAPID TURNAROUND, QUALITATIVE SCREENING PROCEDURE TO AID IN THE IMMEDIATE MEDICAL ASSESSMENT OF PATIENTS SUSPECTED OF SUBSTANCE ABUSE. 10/17/2024 4:[address] [facility] Comment: CLINICAL CONSIDERATION AND PROFESSIONAL JUDGMENT MUST BE APPLIED TO ANY DRUG OF ABUSE TEST RESULT, BOTH POSITIVE AND NEGATIVE. CONFIRMATORY QUANTITATIVE RESULTS ARE AVAILABLE THROUGH OUR REFERENCE LABORATORY. URINE SPECIMEN / Unknown 10/17/2024 4:15 PM CDT Familia Membreno MD URINE ORDERABLES Final Result [facility] [address] [place] [address], * (ABNORMAL) BASIC METABOLIC PANEL (10/17/2024 4:12 PM CDT) SODIUM S/P/B 140 136 - 145 MMOL/L 10/17/2024 5:[address] [facility] POTASSIUM S/P/B 3.5 3.5 - 5.1 MMOL/L 10/17/2024 5:[address] [facility] CHLORIDE S/P/B 103 98 - 107 MMOL/L 10/17/2024 5:[address] [facility] CO2 27.0 21.0 - 32.0 MMOL/L 10/17/2024 5:[address] [facility] GLUCOSE 98 70 - 99 MG/DL 10/17/2024 5:[address] [facility] Comment: FASTING GLUCOSE 100 TO 125 MG/DL IS CONSISTENT WITH IMPAIRED FASTING GLUCOSE. FASTING GLUCOSE >125 MG/DL IS CONSISTENT WITH DIABETES. RANDOM GLUCOSE >200 MG/DL WITH HYPERGLYCEMIC SYMPTOMS IS CONSISTENT WITH DIABETES. PER ADA GUIDELINES BUN 18 6 - 24 MG/DL 10/17/2024 5:[address] [facility] CREATININE S/P/B 1.18(H) 0.55 - 1.02 MG/DL 10/17/2024 5:[address] [facility] CALCIUM S/P/B 10.0 8.4 - 10.5 MG/DL 10/17/2024 5:[address] [facility] ANION GAP 10.0 5.0 - 15.0 MMOL/L 10/17/2024 5:[address] [facility] OSMOLALITY (CALC) 292 MOSM/KG 025 5:[address] [facility] Comment:REFERENCE RANGE NOT ESTABLISHED GFR ESTIMATE 59(L) >89 ML/MIN/1. 73 M2 10/17/2024 5:[address] [facility] GFR NOTES GFR REFERENCE S: 10/17/2024 5:[address] [facility] Comment: THE ESTIMATED GFR IS [...] us Familia Membreno MD LABORATORY Final Result [facility] [address] [email or web address] [address], * (ABNORMAL) CBC W/DIFF AUTOMATED (10/17/2024 4:12 PM CDT) WBC 7.54 4.00 - 10.80 x10'3/uL 10/17/2024 4:[address] [facility] RBC 4.46 4.10 - 5.40 x10'6/uL 10/17/2024 4:[address] [facility] HGB 13.8 12.0 - 16.0 G/DL 10/17/2024 4:[address] [facility] HCT 40.3 36.0 - 47.0 % 10/17/2024 4:[address] [facility] MCV 90.4 78.0 - 100.0 FL 10/17/2024 4:[address] [facility] MCH 30.9 27.0 - 31.0 PG 10/17/2024 4:[address] [facility] MCHC 34.2 33.0 - 36.0 G/DL 10/17/2024 4:[address] [facility] RDW 12.5 11.5 - 14.5 % 10/17/2024 4:[address] [facility] PLT 470(H) 150 - 350 x10'3/uL 10/17/2024 4:[address] [facility] MPV 10.1 7.4 - 10.4 FL 10/17/2024 4:[address] [facility] CBC COMMENT NORMAL REFERENCE RANGE NOT ESTABLISHED FOR THE PROPORTIONAL LEUKOCYTE DIFFERENTIAL. 10/17/2024 4:[address] [facility] NEUTROPHILS % 66.6 % 10/17/2024 4:[address] [facility] LYMPHOCYTES % 24.8 % 10/17/2024 4:[address] [facility] MONOCYTES % 7.0 % 10/17/2024 4:[address] [facility] EOSINOPHILS % 0.5 % 10/17/2024 4:[address] [facility] BASOPHILS % 0.8 % 10/17/2024 4:[address] [facility] IMMATURE GRANS % 0.3 % 10/18/19 4:[address] [facility] NRBC % 0.0 % 10/17/2024 4:[address] [facility] ABS. NEUTROPHILS 5.02 1.60 - 8.30 x10'3/uL 10/17/2024 4:[address] [facility] ABS. LYMPHOCYTES 1.87 0.80 - 4.70 x10'3/uL 10/17/2024 4:[address] [facility] ABS. MONOCYTES 0.53 0.00 - 1.50 x10'3/uL 10/17/2024 4:[address] [facility] ABS. EOSINOPHILS 0.04 0.00 - 0.40 x10'3/uL 10/17/2024 4:[address] [facility] ABS. BASOPHILS 0.06 0.00 - 0.20 x10'3/uL 10/17/2024 4:[address] [facility] ABS. IMMATURE GRANULOCYTES 0.02 0.00 - 0.03 x10'3/uL 10/17/2024 4:[address] [facility] ABS. NUCLEATED RBC'S 0.00 0.00 - 0.01 x10'3/uL 10/17/2024 4:[address] [facility] 10/17/2024 4:12 PM CDT Familia Membreno MD LABORATORY Final Result [facility] [address] [email or web address] [address], * ETHANOL (10/17/2024 4:12 PM CDT) ALCOHOL S/P/B <0.003 <0.003 G/DL 10/17/2024 5:[address] [facility] 10/17/2024 4:12 PM CDT us Familia Membreno MD LABORATORY Final Result Performing Organization Address [facility]/[place] [address], * CORONAVIRUS (COVID-19) ANTIGEN (10/17/2024 4:05 PM CDT) CORONAVIRUS ANTIGEN IA NEGATIVE NEGATIVE 10/17/2024 5:[address] [facility] Comment: NEGATIVE RESULTS DO NOT [...] SPECIMEN TYPE NASAL 10/17/2024 4:[address] [facility] NASAL NASAL STRUCTURE / Unknown 10/17/2024 4:05 PM CDT us Familia Membreno MD MICROBIOLOGY - GENERAL ORDERAB LES Final Result Performing Organization Address [facility] Co de Phone Number [facility] [address] [place] [address], * ECG 12 lead (10/17/2024 3:31 PM CDT) 10/17/2024 3:31 PM CDT Narrative [facility] - 10/17/2024 7:04 PM CDT [address] [place] [address] Test Date: 2024-10-17 Pat Name: JJ ROUSE Department: 3 Room: [place] [address] Gender: Female Bladder Blower: : 1980 Requested By: IVAN MEMBRENO Order Number: [id number] Dianne MD: Elenita Leggett Measurements Intervals [place] Rate: 86 P: 81 IN: 130 QRS: 81 QRSD: 98 T: 82 QT: 361 QTc: 434 Interpretive Statements SINUS RHYTHM POSSIBLE RIGHT ATRIAL ENLARGEMENT Procedure Note Elenita Leggett MD - 10/17/2024 [facility] [address] [place] [address] Test Date: 2024-10-17 Pat Name: JJ ROUSE Department: 3 Room: EXAM 707 Gender: Female Bladder Blower: : 1980 Requested By: IVAN MEMBRENO Order Number: [id number] Reading MD: Elenita Leggett Measurements Intervals [place] Rate: 86 P: 81 IN: 130 QRS: 81 QRSD: 98 T: 82 QT: 361 QTc: 434 Interpretive Statements SINUS RHYTHM POSSIBLE RIGHT ATRIAL ENLARGEMENT Familia Membreno MD ECG ORDERABLES Final Result [facility] * HEPATITIS PANEL,ACUTE (10/13/2023 3:24 AM CDT) HEPATITIS B SURFACE AG NON-REACT VARGHESE NON-REACT VARGHESE 10/13/2023 1:41 PM CDT [facility] Comment:HBsAg NOT DETECTED. HEP B CORE IGM NON-REACT VARGHESE NON-REACT VARGHESE 10/13/2023 1:41 PM CDT [facility] Comment: IgM ANTI HBc NOT DETECTED. DOES NOT EXCLUDE THE POSSIBILITY OF EXPOSURE TO OR INFECTION WITH HBV. NO RETEST REQUIRED. HIGH DOSES OF BIOTIN MAY INTERFERE WITH THIS TEST RESULT. CORRELATION TO CLINICAL HISTORY AND PRESENTATION RECOMMENDED. HAV IGM NON-REACT VARGHESE NON-REACT VARGHESE 10/13/2023 1:41 PM CDT [facility] Comment: IgM ANTI HAV NOT DETECTED. DOES NOT EXCLUDE THE POSSIBILITY OF EXPOSURE TO OR INFECTION WITH HAV. LEVELS OF IgM ANTI HAV MAY BE BELOW THE CUTOFF IN EARLY INFECTION. HEPATITIS C AB NON-REACT VARGHESE NON-REACT VARGHESE 10/13/2023 1:42 PM CDT [facility] Comment: ANTIBODIES TO HCV NOT DETECTED. DOES NOT EXCLUDE THE POSSIBILITY OF EXPOSURE TO HCV. 10/13/2023 3:24 AM CDT Tenisha Cheema MD LABORATORY Final Result [facility] [address] [place] [address], [id number] from Last 3 Months or Most Recently Relevant to Health Maintenance Insurance [employer] Advance Directives Documents on File Type Date Recorded Patient Mri Special Procedures Technologist Expl anation Advance Directives and Living Will 05/10/2015 12:00 AM ADVANCED DIRECTIVES Advance Directives and Living Will 08/06/2013 12:00 AM ADVANCED DIRECTIVES Advance Directives and Living Will 12/28/2012 12:00 AM ADVANCED DIRECTIVES * Full Code (Latest Code Status on File) Date Activated Date Inactivated Comments 10/13/2023 5:53 AM 10/14/2023 10:50 AM Care Teams Pump House Operator Relationship Specialty Start Date End Date Francisco Javier Ivan MD [address] [address] PCP - General FAMILY PRACTICE 06/05/24
--- OUTSIDE RECORDS SUMMARY | 2024-10-18 01:15 | XMS_ITS | Patient Health Record ---
Author Organization [facility] Address [address] [place] [address] Care Team Providers Care Research Fellow Name Role Phone Supriya Naziasyed Primary Care Provider Kasey Ny Unavailable [phone] Ava Hernandez Unavailable [phone] Leandro Harris Unavailable [phone] Ana Verma Unavailable [phone] Braxton Costa Unavailable [phone] Allergies Allergen (clinical drug ingredient) Drug/Non Drug Allergy documented on EMR Reaction Allergy Type Onset Date Status Penicillin rash Drug Allergy Active Results Component Value Reference Range Notes Breathalyzer Reviewed date:09/20/2024 03:01:30 PM Interpretation: Performing Lab: Notes/Report: SHERI 0.000 Test, Urine Reviewed date:09/20/2024 03:01:25 PM Interpretation: Performing Lab: Notes/Report: Test, Urine neg Negative - Negative HIV Screen *HIV 1, 2 Ab, p24 Ag ([id number]) Reviewed date:09/21/2024 02:19:40 PM Interpretation:Normal Performing Lab:[facility], [address] [facility], Phone - [phone], Director - Eryn Notes/Report: HIV Ab/p24 Ag Screen Non Reactive Non Reactive HIV-1/HIV-2 antibodies and HIV-1 p24 antigen were NOT detected. There is no laboratory evidence of HIV infection. HIV Negative CMP 14 Comprehensive Metabol ic Panel* Reviewed date:09/21/2024 02:19:40 PM Interpretation:Normal Performing Lab:[facility] [place], [address] [facility], Phone - [phone], Director - [facility] Notes/Report: Glucose 73 70-99 mg/dL BUN [...] Reviewed date:09/21/2024 02:19:40 PM Interpretation:Normal Performing Lab:[facility] [place], [address] [facility], Phone - [phone], [facility] Notes/Report: WBC 5.9 3.4-10.8 x10E3/uL RBC 4.83 [...] % Immature Grans (Abs) 0.0 0.0-0.1 x10E3/uL QuantiFERON-TB Gold Plus ([id number] 2879) Reviewed date:09/22/2024 02:30:29 PM Interpretation:Normal Performing Lab:[facility], [address] [facility], [place], Phone - [phone], Director - Eryn Notes/Report: QuantiFERON Incubation Incubation [...] Nil Value 0.02 QuantiFERON Mitogen Value >10.00 14 Panel Urine Drug Screen Reviewed date:09/20/2024 12:02:23 PM Interpretation: Performing Lab: Notes/Report: THC neg CHRISTOPHER neg MOP (OPI) neg AMP pos MET neg BAR neg BZO neg MDMA neg MTD neg OXY neg PCP neg BUP neg TCA neg FTY neg Reason For Referral No Information Medications Medication [...] Risk Notes Problem Benign paroxysmal positional vertigo (687619747) Benign paroxysmal vertigo, bilateral (H81.13) Active confirmed Problem Thyroid nodule (850355214) Thyroid nodule (E04.1) Active confirmed Problem Overweight (792209442) Over weight (E66.3) Active confirmed Problem Systolic murmur (85539128) Systolic murmur (I38) Active confirmed Problem Bipolar disorder (17646578) Bipolar 1 disorder, depressed (F31.9) Active confirmed Problem Stimulant abuse (810604852) Methamphetamine use disorder, mild, 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 confirmed Problem Opioid use disorder (9780525479) Opioid use disorder (F11.99) Active confirmed Problem Tobacco user (714482224) Nicotine dependence with current use (F17.200) Active [...] Encounter Location Date Provider Diagnosis [facility] [address] [place] [address] 09/20/2024 Alana Epps Methamphetamine use disorder, mild, in early remission F15.10 ; Opioid use disorder F11.99 ; Routine general medical examination at a health care facility Z00.00 and Nicotine dependence with current use F17.[address] [place] [address] 09/20/2024 Ava Deniselyse Methamphetamine use disorder, mild, in early remission F15.10 and Bipolar 1 disorder, depressed F31.[address] [place] [address] 09/21/2024 Kasey Ny Bipolar 1 disorder, depressed F31.9 [place] [address] [place] [address] 09/26/2024 Braxton Costa Thyroid nodule E04.1 ; Benign paroxysmal vertigo, bilateral H81.13 ; Systolic murmur I38 and Over weight E66.3 [place] [address] [place] [address] 09/19/2024 Alana Epps [place] [address] [place] [address] 09/20/2024 Alana Epps [place] [address] [place] [address] 09/29/2024 Alana Epps Opioid use disorder F11.99 [place] [address] [place] [address] 10/13/2024 Alana Epps Assessments Encounter Date Diagnosis [...] or be administered own oral medications per [place] protocols. Provided informed consent with understanding of [...] 09/20/2024 Routine general medical examination at a [facility] care facility (ICD-10 - Z00.00) SUPR Programs: Based on an evaluation of [facility] Patient Placement Criteria, a recommendation [...] Insured Coverage Start Date Coverage End Date [employer] [address] [place] [address] [id number] Jaycee Rouse Self - patient is the insured 3 [employer] PER DIEM PHYSICAL THERAPIST ASSISTANT [address] [place] [address] [id number] Jaycee Rouse Self - patient is the insured [address] [employer] [address] [place] [address] [id number] PadmaJaycee Self - patient is the insured 5 Medical (General) History Medical History History ICD Code Manic Depression Surgical History Surgery Date(Month/Year) 3 c-sections right hand has pins gall bladder removed Hospitalization History Reason Date(Month/Year) gateway, multiple times between 2023- 5 06/2024
--- OUTSIDE RECORDS SUMMARY | 2024-10-18 01:16 | XMS_ITS | Encounter Summary ---
Author Organization [facility] Address [address] [place] [address] Care Team Providers Care Computer Forwarding System Markup Clerk Name Role Phone Francisco Javier Ivan MD Primary Care Provider [phone] Encounter Details Date Type Department Care Team (Latest Contact Info) Description 10/17/2024 Travel Social History Tobacco Use Types Packs/Day Years Used Date Smoking Tobacco: Every Day Cigarettes Smokeless Tobacco: Never Alcohol Use Standard Drinks/Week Comments Never 0 (1 standard drink = 0.6 oz pur e alcohol) [facility] Utilities Answer Date Recorded In the past 12 months has e [employer], gas, oil, or water [employer] threatened to shut off services in your [...] time in the past 12 m [facility], were you homeless or living in a senior care (including now)? Yes 10/13/2023 Comments No Sex [...] PM CDT Ilana Toscano RN Active * Walsh Suicide Severity Rating Scale (Screener/Recent Self-Report) Question [...] documented as of this encounter Care Teams Computer Forwarding System Markup Clerk Relationship Specialty Start Date End Date Francisco Javier Ivan MD [address] [place] [address] PCP - General FAMILY PRACTICE 06/05/24 documented as of this encounter
--- NOTE | 2024-10-18 01:27 | ED_ITS ---
HPI - General Adult General Chief complaint: Recheck/Abnormal Lab/Rx Stated complaint: septic shock Time Seen by Provider: 10/18/24 00:48 History of Present Illness HPI narrative: Patient is a 44-year-old female who presents to the emergency department this evening with multiple complaints. Patient states she is concerned for septic shock stating that she feels as though the me of britt[place] gave her wrap poisoning. She was seen this morning at [place] and then again at [place] and in the afternoon as she was complaining of chest pain and abdominal pain. She was also seen yesterday occult [facility]. She had a full workup which was unremarkable. Patient admits to drug use and states that she has a history of meth use but states that she has not used meth in weeks. Does appear to be anxious and under the influence of drugs although she denies any. No additional symptoms or concerns at this time. Related Data Home Medications ?Medication ?Instructions ?Recorded ?Confirmed ?Last Taken ?Type aripiprazole 5 mg tablet (Abilify) 5 mg PO DAILY 05/1705/17/24 Unknown History lorazepam 0.5 mg tablet (Ativan) 0.5 mg PO Q6H PRN anx iety 05/17/24 05/17/24 Unknown History trazodone 50 mg tablet mg 05/17/24 Unknown History Allergies Allergy/AdvReac Type Severity Reaction Status Date / Time Penicillins Allergy Severe Difficulty Verified 09/27/24 20:29 Swallowing codeine AdvReac Swelling Verified 09/27/24 20:29 Review of Systems 2 Review of Systems: All systems are reviewed and are negative unless stated otherwise in the HPI. [facility] Past Medical History Medical History Drug abuse Tooth decay Surgical History Surgical History History of x3 Family History Family History Father No problems noted. Father Lung cancer Mother Heart disease Social History Social History Years smoked: 20 Smoking status: Current every day smoker Tobacco type: cigarettes Second hand tobacco smoke exposure: Yes Alcohol intake: former Substance use: former Substance use type: methamphetamine Gender identity (if verbalized by the patient): Female Spiritual care concerns: No Exam 2 Narrative: General: Alert, awake, afebrile, in no acute distress. HEENT: PERRL, no rhinorrhea, no post nasal drip, oropharynx clear. Neck: Trachea midline, no JVD, no lymphadenopathy. Cardiovascular: Regular rate and rhythm, no murmurs, rubs or gallops, no peripheral edema. Respiratory: Clear to auscultation bilaterally, no tachypnea, no wheezing, no rhonchi, no rubs, no respiratory distress. Abdomen: Soft, nontender, nondistended, no rebound, no guarding, no peritoneal signs. Musculoskeletal: No joint swelling or deformity, normal muscle tone. Skin: No rashes or petechia, no signs of infection. Psychiatric: Alert and oriented, appears to be under the influence of some drugs. Neurological: Alert and oriented to person, place, and time. Follows all commands. No focal deficits, speech is clear and fluent. Course Vital Signs Vital signs: Vital Signs Temperature 98.0 F 10/17/24 23:39 Pulse Rate 75 10/17/24 23:39 Respiratory Rate 16 10/17/24 23:39 Blood Pressure 118/80 10/17/24 23:39 Pulse Oximetry 100 10/17/24 23:39 Temperature 98.0 F 10/17/24 23:39 Pulse Rate 75 10/17/24 23:39 Respiratory Rate 16 10/17/24 23:39 Blood Pressure 118/80 10/17/24 23:39 Pulse Oximetry 100 10/17/24 23:39 Medical Decision Making [facility] Narrative Medical decision making narrative: The patient was evaluated by myself in the emergency department. History is obtained from patient who is an independent historian and physical exam was performed. External medical records were reviewed at this time. IV was established and pertinent tests were ordered. EKG was obtained which revealed sinus rhythm rate of 76 beats per minute. No ST changes, T wave inversions or evidence of acute ischemia. EKG was independently interpreted by me and is currently pending official cardiology read. Repeat blood work today was obtained revealing no acute process. Per chart review, patient recently had a UTI on urinalysis which was obtained earlier today at an outside facility. Patient is aware that she has UTI but does not believe that they sent a script to her pharmacy. Patient's blood work which was obtained in outside hospitals throughout the past 48 hours also reviewed in all noted to be normal including a normal troponin. Per chart review, patient had 2 chest x-rays performed on October 15 and October 16 which were both normal. No repeat imaging was performed at this time. Differential diagnosis considerations include polysubstance abuse, acute psychosis, acute stress reaction, anxiety. Comorbidities impacting this visit include substance use. Patient was informed that her symptoms are likely due to anxiety and could be precipitated by her drug use and instructed to refrain from using any recreational drugs. I have evaluated and discussed social determinants of health with the patient that could potentially impact subsequent diagnosis and treatment plans. On repeat assessment of the patient, reevaluation revealed that the patient is doing well and is in no acute distress. Patient symptoms have remained stable since she arrived to our emergency department. Repeat vital signs were all reviewed and noted to be stable. Differential diagnosis and treatment plan were discussed with the patient at bedside. Patient agrees with discussion and after shared medical decision making agrees with discharge. All questions were answered to the patient's satisfaction. Patient will follow up with her PCP in 3-5 days. Patient was provided with strict return precautions and instructed to return to the emergency department if any new or worsening symptoms develop. The patient was discharged in stable condition. Vital Signs Vital Signs: Vital Signs Temperature 98.0 F 10/17/24 23:39 Pulse Rate 75 10/17/24 23:39 Respiratory Rate 16 10/17/24 23:39 Blood Pressure 118/80 10/17/24 23:39 Pulse Oximetry 100 10/17/24 23:39 Temperature 98.0 F 10/17/24 23:39 Pulse Rate 75 10/17/24 23:39 Respiratory Rate 16 10/17/24 23:39 Blood Pressure 118/80 10/17/24 23:39 Pulse Oximetry 100 10/17/24 23:39 Lab Data 10/18/24 00:46 10/18/24 00:46 Labs: Lab Results 10/18/24 10/18/24 Range/Units 00:46 00:56 WBC 8.6 (4.5-10.0) K/mm3 RBC 4.29 (4.2-5.4) M/mm3 Hgb 13.0 (12.0-15.0) g/dL Hct 39.8 (37.0-47.0) % MCV 92.8 (80-100) fl MCH 30.3 (26-34) pg MCHC 32.7 (32-36) g/dl RDW 12.8 (11.5-14.5) % Plt Count 454 H (150-375) k/mm3 MPV 9.8 (7.4-10.4) fl Immature Gran % (Auto) 0.3 (0-0.5) % Neut % (Auto) 61.5 (45.5-73.1) % Lymph % (Auto) 29.1 (18.3-44.2) % [place] % (Auto) 7.8 (2.6-8.5) % Eos % (Auto) 0.5 (0-4.4) % Baso % (Auto) 0.8 (0.2-1.2) % Lymph # (Auto) 2.50 (0.9-3.2) K/mm3 [place] # (Auto) 0.7 H (0.1-0.6) K/mm3 Eos # (Auto) 0.0 (0-0.3) K/mm3 Baso # (Auto) 0.1 (0.0-0.1) K/mm3 Abs Immat Gran (auto) 0.03 (0.00-0.031) K/mm3 Absolute Neuts (auto) 5.3 (1.3-6.7) K/mm3 Absolute Nucleated RBC 0.000 (0.0-0.012) K/mm3 Nucleated RBC % 0.0 (0.0-0.2) % Sodium 139 (137-145) mmol/L Potassium 3.6 (3.4-5.0) mmol/L Chloride 105 (98-107) mmol/L Carbon Dioxide 25 (22-30) mmol/L Anion Gap 9 (4-12) mmol/L BUN 19 H (7-17) mg/dL Creatinine 0.93 (0.7-1.0) mg/dL Estim Creat Clear Calc 52 ml/min Estimated GFR > 60 (59 - ) Glucose 103 (65-110) mg/dL Calcium 9.8 (8.4-10.2) mg/dL Total Bilirubin 0.6 (0.2-1.3) mg/dL AST 34 (14-36) U/L ALT 27 (6-35) U/L Alkaline Phosphatase 93 (38-126) U/L Total Protein 8.2 (6.3-8.2) g/dL Albumin 4.7 (3.5-5.1) g/dL Lipase 187 (23-300) U/L POC Urine HCG, Qual Negative (Negative) Discharge Plan Discharge Clinical Impression: UTI (urinary tract infection) Patient Disposition: Home Condition: Improved Instructions: Antibiotic Form, Urinary Tract Infection in Women (DC) Additional Instructions: Please follow-up with your family doctor within the next 3-5 days. Return to ED if any new or worsening symptoms develop. Take the prescribed antibiotic as instructed for UTI. Patient Language: Persian Prescriptions: New sulfamethoxazole-trimethoprim [Bactrim DS] 800-160 mg tablet 1 tablet PO Q12H 5 Days Qty: 10 0RF No Action trazodone 50 mg tablet aripiprazole [Abilify] 5 mg tablet 5 mg PO DAILY lorazepam [Ativan] 0.5 mg tablet 0.5 mg PO Q6H PRN (Reason: anxiety) sulfamethoxazole-trimethoprim [Bactrim DS] 800-160 mg tablet 1 tablet PO Q12H Qty: 10 0RF azithromycin 500 mg tablet See Rx Instructions .ROUTE .COMPLEX Qty: 3 0RF Rx Instructions: For 500 mg dose pack: take 500 mg once daily for 3 days prednisone 20 mg tablet 20 mg PO DAILY 3 Days Qty: 3 0RF ondansetron 4 mg tablet,disintegrating 4 mg PO Q8H PRN (Reason: nausea and vomiting) Qty: 14 0RF levofloxacin 500 mg tablet 500 mg PO DAILY Qty: 6 0RF bupropion HCl [Wellbutrin SR] 150 mg tablet sustained-release 12 hr 150 mg PO QAM Qty: 30 0RF Follow-up/Referrals: PHYSICIAN,HATCHERY ATTENDANT [Primary Care Provider, Internal Medicine] Chase Zayas MD [Physician, Family Practice] - 3 Days Time of Disposition: :
[2024-10-18 01:29] LABS: BEDSIDEPREGUCG Negative (Negative)
[2024-10-18 01:32] VITALS: BP 122/76; PULSE 59; RESP 18; TEMP 36.5; O2SAT 97
== END 2024-10-18 01:33 | disposition home or self-care (01) ==
PROVIDERS: Emergency Provider Emergency Medicine
DX: N39.0 Urinary tract infection, site not specified (principal); F19.10 Other psychoactive substance abuse, uncomplicated; F17.210 Nicotine dependence, cigarettes, uncomplicated
CPT/HCPCS: 36415; 80053; 81025; 83690; 85025; 93005; 99283

== ENCOUNTER 2024-10-18 03:02 | Emergency (ER) | payer OTHER, SELFPAY ==
--- OUTSIDE RECORDS SUMMARY | 2024-10-17 01:35 | XMS_ITS | Encounter Summary ---
Author Organization [facility] Healthcare Address [address] [place] [address] Care Team Providers Care Medical Assistant Float Name Role Phone Christofer Stewart MD Primary Care Provider Reason for Visit * Reason Comments Chest Pain Pt discharged from [facility] this am pt called 911 said she had no pulse pt states 'my eye are dilated but I didn't do any drugs I think someone poisoned me with strychnine cause I'm in cardiac shock' Encounter Details Date Type Department Care Team (Late st Contact Info) Description 10/17/2024 1:35 AM CDT - 10/17/2024 2:55 AM CDT Emergency [facility] Emergency Department [address] [place] [address] Jamarcus Irvin MD [address] [facility] [place] [address] Tre Roche MD [address] [place] [address] [address] Chest pain, unspecified type (Primary Dx) Discharge [...] on file 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 * Chest Pain, Noncardiac (Citizen [place]) documented in this encounter Discharge Disposition Disposition Code Departure Means Destination Comment s Discharge to home or self care documented in this encounter ED Notes * Tre Roche MD - 10/17/2024 2:18 AM CDT HPI Chief Complaint Patient presents with ??? Chest Pain Pt discharged from [facility] this am pt called 911 said she [...] ideas and multiple medical complaints arrived via [facility] discharged from [facility] this am documented in this encounter Miscellaneous [...] ideas and multiple medical complaints arrived via [facility] discharged from [facility] this AM. Smoker TECHNIQUE: Frontal and lateral [...] Ml Foster M.D. SN: SN Report ID: [id number] Reading Location: [id number] Procedure Note Ml Foster MD - 10/17/2024 EXAM DESCRIPTION: XR CHEST PA LATERAL 2 VIEWS REASON FOR STUDY: cough Pt has flight of ideas and [facility]. Smoker TECHNIQUE: Frontal and lateral [...] Ml Foster M.D. SN: SN Report ID: [id number] Reading Location: [place] [address] [place] Tre Roche MD IMG XR PROCEDURES Final Result * ECG 12 lead (10/17/2024 12:07 AM CDT) 10/17/2024 12:0 7 AM CDT Narrative [facility] - 10/17/2024 6:47 AM CDT Vent Rate: 84 bpm RR Interval: 709 msec MS Interval: 111 msec QRS Duration: 96 msec QT Interval: 362 msec QTC Interval: 403 msec P-R-T [place]: 80 - 73 - 64 degrees IMPRESSION: Baseline artifact, probable SINUS RHYTHM WITH SHORT MS INTERVAL LEFT ATRIAL ENLARGEMENT [-0.15mV P WAVE IN V1/V2] POSSIBLE LEFT VENTRICULAR HYPERTROPHY [VOLTAGE CRITERIA PLUS LAE OR QRS WIDENING] ABNORMAL ECG NO CHANGE FROM PREVIOUS TRACING NOTED Electronically Signed By: Francois Casarez MD us Jamarcus Irvin MD ECG ORDERABLES Final Result [facility] documented in this encounter Visit Diagnoses Diagnosis Chest pain, unspecified type- Primary documented in this encounter Care Teams Medical Assistant Float Relationship Specialty Start Date End Date Christofer Stewart MD PCP - General Family Medicine 06/23/23 documented as of this encounter
--- OUTSIDE RECORDS SUMMARY | 2024-10-17 14:59 | XMS_ITS | Encounter Summary ---
Author Organization [facility] Address Replaced by [facility] [place] [address] Care Team Providers Care Medtronics Technician Name Role Phone Francisco Javier Ivan MD Primary Care Provider [phone] Reason for Visit * Reason Comments Medical Problem Encounter Details Date Type Department Care Team (Late st Contact Info) Description 10/17/2024 2:59 PM CDT - 10/17/2024 8:00 PM T Emergency [place] [facility] [facility] [place] [address] Familia Membreno MD [address] [place] [address] Medical Problem Discharge Disposition: Home or Self Care (Routine Discharge) Social History Tobacco Use Types Packs/Day Years Used Date Smoking Tobacco: Every Day Cigarettes Smokeless Tobacco: Never Alcohol Use Standard Drinks/Week Comments Never 0 (1 standard drink = 0.6 oz pur e alcohol) [facility] Utilities Answer Date Recorded In the past 12 months has [facility] [employer], oil, or water [employer] threatened to shut off services in your [...] any time in the past 12 m [facility], were you homeless or living in a [...] PM CDT Ilana Toscano RN Active * [place] Suicide Severity Rating Scale (Screener/Recent Self-Report) Question [...] Everywhere. * Treatment for substance use disorder ([place]orese) documented in this encounter Medications at Time [...] RN - 10/17/2024 6:36 PM CDT Called [facility] crisis line spoke with marco, states that she will call back once she has asETA. * Familia Membreno MD - 10/17/2024 3:39 PM CDT Chief Complaint Chief Complaint Patient presents with Medical Problem History of Present Illness .HPI: 44-year-old female past medical history of polysubstance abuse, bipolar, presenting to the emergency department for concern that the [facility] is poisoning her. She states that he [...] encounter of 10/17/24 ECG 12 lead Narrative [address] 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 ECG/medicine tests: ordered. 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 [4] Social History Tobacco Use Smoking status: Every Day Current packs/day: 0.50 Types: Cigarettes Smokeless tobacco: Never Vaping Use Vaping status: Never Used Substance Use Topics Alcohol use: Never Drug use: Never Familia Membreno MD 10/17/242112 * Daylin Toscano RN - 10/17/2024 3:01 PM CDT Patient arrives via [facility] with c/o the [facility] is trying to kill me and I'm goinginto septic shock. When asked why she is thinks she is going into shock states rat poison from the [facility]. EMS stated she had been to [facility] and [facility] today already. They have had multiple [...] SCREEN RAPID (10/17/2024 4:15 PM CDT) Pathologist [facility] CANNABINOIDS SCREEN (U) NEGATIVE NEGATIVE 10/17/2024 4:50 PM CDT [facility] PHENCYCLIDINE PCP (U) NEGATIVE NEGATIVE 10/17/2024 4:50 PM CDT [facility] COCAINE METABOLITES (U) NEGATIVE NEGATIVE 10/17/2024 4:50 PM CDT [facility] METHAMPHETAMINE SCREEN (U) POSITIVE(A) NEGATIVE 10/17/2024 4:50 PM CDT [facility] OPIATE SCREEN (U) NEGATIVE NEGATIVE 025 4:50 PM CDT [facility] AMPHETAMINE SCREEN (U) POSITIVE(A) NEGATIVE 10/17/2024 4:50 PM CDT [facility] BENZODIAZEPINES SCREEN (U) NEGATIVE NEGATIVE 10/17/2024 4:50 PM CDT [facility] TRICYCLIC ANTIDEPRESSANT SCREEN (U) NEGATIVE NEGATIVE 10/17/2024 4:50 PM CDT [facility] METHADONE (U) NEGATIVE NEGATIVE 10/17/2024 4:50 PM CDT [facility] BARBITURATES SCREEN (U) POSITIVE(A) NEGATIVE 10/17/2024 4:50 PM CDT [facility] OXYCODONE SCREEN (U) NEGATIVE NEGATIVE 10/17/2024 4:50 PM CDT [facility] URINE TOX COMMENT THIS TEST METHODOLOGY IS DESIGNED AND OFFERED A RAPID TURNAROUND, QUALITATIVE SCREENING PROCEDURE TO AID IN THE IMMEDIATE MEDICAL ASSESSMENT OF PATIENTS SUSPECTED OF SUBSTANCE ABUSE. 10/17/2024 4:24 PM CDT [facility] Comment: CLINICAL CONSIDERATION AND PROFESSIONAL JUDGMENT MUST BE APPLIED TO ANY DRUG OF ABUSE TEST RESULT, BOTH POSITIVE AND NEGATIVE. CONFIRMATORY QUANTITATIVE RESULTS ARE AVAILABLE THROUGH OUR REFERENCE LABORATORY. URINE SPECIMEN / Unknown 10/17/2024 4:15 PM CDT us Familia Membreno MD URINE ORDERABLES Final Result Performing Organization Address City/[facility]/ZIP Co de Phone Number [facility] [address] [place] [address], * ETHANOL (10/17/2024 4:12 PM CDT) ALCOHOL S/P/B <0.003 <0.003 G/DL 10/17/2024 5:06 PM CDT [facility] 10/17/2024 4:12 PM CDT us Familia Membreno MD LABORATORY Final Result Performing Organization Address [facility] Co de Phone Number [facility] [address] [place] [address], * (ABNORMAL) BASIC METABOLIC PANEL (10/17/2024 4:12 PM CDT) SODIUM S/P/B 140 136 - 145 MMOL/L 10/17/2024 5:06 PM CDT [facility] POTASSIUM S/P/B 3.5 3.5 - 5.1 MMOL/L 10/17/2024 5:06 PM CDT [facility] CHLORIDE S/P/B 103 98 - 107 MMOL/L 10/17/2024 5:06 PM CDT [facility] CO2 27.0 21.0 - 32.0 MMOL/L 10/17/2024 5:06 PM CDT [facility] GLUCOSE 98 70 - 99 MG/DL 10/17/2024 5:06 PM T [facility] Comment: FASTING GLUCOSE 100 TO 125 MG/DL IS CONSISTENT WITH IMPAIRED FASTING GLUCOSE. FASTING GLUCOSE >125 MG/DL IS CONSISTENT WITH DIABETES. RANDOM GLUCOSE >200 MG/DL WITH HYPERGLYCEMIC SYMPTOMS IS CONSISTENT WITH DIABETES. PER ADA GUIDELINES BUN 18 6 - 24 MG/DL 10/17/2024 5:06 PM T [facility] CREATININE S/P/B 1.18(H) 0.55 - 1.02 MG/DL 10/17/2024 5:06 PM T [facility] CALCIUM S/P/B 10.0 8.4 - 10.5 MG/DL 10/17/2024 5:06 PM T [facility] ANION GAP 10.0 5.0 - 15.0 MMOL/L 10/17/2024 5:06 PM T [facility] OSMOLALITY (CALC) 292 MOSM/KG 025 5:06 PM T [facility] Comment:REFERENCE RANGE NOT ESTABLISHED GFR ESTIMATE 59(L) >89 ML/MIN/1. 73 M2 10/17/2024 5:06 PM T [facility] GFR NOTES GFR REFERENCE S: 10/17/2024 5:06 PM [facility] Comment: THE ESTIMATED GFR IS CALCULATED [...] CDT Familia Membreno MD LABORATORY Final Result [facility] [address] [place] [address], * (ABNORMAL) CBC W/DIFF AUTOMATED (10/17/2024 4:12 PM CDT) WBC 7.54 4.00 - 10.80 x10'3/uL 10/17/2024 4:47 PM CDT [facility] RBC 4.46 4.10 - 5.40 x10'6/uL 10/17/2024 4:47 PM CDT [facility] HGB 13.8 12.0 - 16.0 G/DL 10/17/2024 4:47 PM CDT [facility] HCT 40.3 36.0 - 47.0 % 10/17/2024 4:47 PM CDT [facility] MCV 90.4 78.0 - 100.0 FL 10/17/2024 4:47 PM CDT [facility] MCH 30.9 27.0 - 31.0 PG 10/17/2024 4:47 PM CDT [facility] MCHC 34.2 33.0 - 36.0 G/DL 10/17/2024 4:47 PM CDT [facility] RDW 12.5 11.5 - 14.5 % 10/17/2024 4:47 PM CDT [facility] PLT 470(H) 150 - 350 x10'3/uL 10/17/2024 4:47 PM CDT [facility] MPV 10.1 7.4 - 10.4 FL 10/17/2024 4:47 PM CDT [facility] CBC COMMENT NORMAL REFERENCE RANGE NOT ESTABLISHED FOR THE PROPORTIONAL LEUKOCYTE DIFFERENTIAL. 10/17/2024 4:47 PM CDT [facility] NEUTROPHILS % 66.6 % 10/17/2024 4:47 PM CDT [facility] LYMPHOCYTES % 24.8 % 10/17/2024 4:47 PM CDT [facility] MONOCYTES % 7.0 % 10/17/2024 4:47 PM CDT [facility] EOSINOPHILS % 0.5 % 10/17/2024 4:47 PM CDT [facility] BASOPHILS % 0.8 % 10/17/2024 4:47 PM CDT [facility] IMMATURE GRANS % 0.3 % 10/18/19 4:47 PM CDT [facility] NRBC % 0.0 % 10/17/2024 4:47 PM CDT [facility] ABS. NEUTROPHILS 5.02 1.60 - 8.30 x10'3/uL 10/17/2024 4:47 PM CDT [facility] ABS. LYMPHOCYTES 1.87 0.80 - 4.70 x10'3/uL 10/17/2024 4:47 PM CDT [facility] ABS. MONOCYTES 0.53 0.00 - 1.50 x10'3/uL 10/17/2024 4:47 PM CDT [facility] ABS. EOSINOPHILS 0.04 0.00 - 0.40 x10'3/uL 10/17/2024 4:47 PM CDT [facility] ABS. BASOPHILS 0.06 0.00 - 0.20 x10'3/uL 10/17/2024 4:47 PM CDT [facility] ABS. IMMATURE GRANULOCYTES 0.02 0.00 - 0.03 x10'3/uL 10/17/2024 4:47 PM CDT [facility] ABS. NUCLEATED RBC'S 0.00 0.00 - 0.01 x10'3/uL 10/17/2024 4:47 PM CDT [facility] 10/17/2024 4:12 PM CDT us Familia Membreno MD LABORATORY Final Result [facility] [address] [place] [address], * CORONAVIRUS (COVID-19) ANTIGEN (10/17/2024 4:05 PM CDT) CORONAVIRUS ANTIGEN [place] NEGATIVE NEGATIVE 10/17/2024 5:06 PM CDT [facility] Comment: NEGATIVE RESULTS DO [...] SPECIMEN TYPE NASAL 10/17/2024 4:43 PM CDT [facility] NASAL NASAL STRUCTURE / Unknown 10/17/2024 4:05 PM CDT Familia Membreno MD MICROBIOLOGY - GENERAL ORDERAB LES Final Result [facility] [place] [id number], * ECG 12 lead (10/17/2024 3:31 PM CDT) 10/17/2024 3:31 PM CDT Narrative [facility] - 10/17/2024 7:04 PM [address]T [address] [place] [address] Test Date: 2024-10-17 Pat Name: JJ ROUSE Department: 3 Room: [place] [address] Gender: Female Wood Tile Installation Helper: : 1980 Requested By: IVAN MEMBRENO Order Number: [id number] Reading MD: Elenita Leggett Measurements Intervals [place] Rate: 86 P: 81 NV: 130 QRS: 81 QRSD: 98 T: 82 QT: 361 QTc: 434 Interpretive Statements SINUS RHYTHM POSSIBLE RIGHT ATRIAL ENLARGEMENT Procedure Note Elenita Leggett MD - 10/17/[address] 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 documented in this encounter Visit Diagnoses Diagnosis Polysubstance abuse (CMS/HCC)- Primary Other, mixed, or unspecified nondependent drug abuse, unspecified documented in this encounter Additional Health Concerns Infection Onset Date Last Indicated Resolved Time COVID-19 Rule Out 10/17/2024 10/17/2024 10/17/2024 5:06 PM CDT documented as of this encounter Care Teams Medtronics Technician Relationship Specialty Start Date End Date Francisco Javier Ivan MD [address] [address] PCP - General FAMILY PRACTICE 06/05/24 documented as of this encounter
[2024-10-18 03:06] VITALS: BP 103/74; PULSE 75; RESP 18; TEMP 36.4; O2SAT 100
--- NOTE | 2024-10-18 03:29 | ED_ITS ---
HPI - General Adult General Chief complaint: Recheck/Abnormal Lab/Rx Stated complaint: my lung has burst Time Seen by Provider: 10/18/24 03:03 History of Present Illness HPI narrative: Patient is a 44-year-old female who was just seen our facility earlier this evening for multiple complaints and concerned that she has sepsis. Patient was seen at multiple facilities nearby within the past 48 to 72 hours regarding these multiple complaints and was informed that her symptoms are likely due to drug use and instructed to refrain from drugs. She is returning now complaining of her lung a bursting. Patient was informed that she has had a full workup and reassured that her symptoms are not medically related. She is requesting to be evaluated by our behavior health crisis team at this time. Denies suicidal/homicidal ideation. Related Data Home Medications ?Medication ?Instructions ?Recorded ?Confirmed ?Last Taken ?Type aripiprazole 5 mg tablet (Abilify) 5 mg PO DAILY 05/1705/17/24 Unknown History lorazepam 0.5 mg tablet (Ativan) 0.5 mg PO Q6H PRN anx iety 05/17/24 05/17/24 Unknown History trazodone 50 mg tablet mg 05/17/24 Unknown History Allergies Allergy/AdvReac Type Severity Reaction Status Date / Time Penicillins Allergy Severe Difficulty Verified 09/27/24 20:29 Swallowing codeine AdvReac Swelling Verified 09/27/24 20:29 Review of Systems 2 Review of Systems: All systems are reviewed and are negative unless stated otherwise in the HPI. [facility] Past Medical History Medical History Drug abuse Tooth decay Surgical History Surgical History History of x3 Family History Family History Father No problems noted. Father Lung cancer Mother Heart disease Social History Social History Years smoked: 20 Smoking status: Current every day smoker Tobacco type: cigarettes Second hand tobacco smoke exposure: Yes Alcohol intake: former Substance use: former Substance use type: methamphetamine Gender identity (if verbalized by the patient): Female Spiritual care concerns: No Exam 2 Narrative: General: Alert, awake, afebrile, in no acute distress. HEENT: PERRL, no rhinorrhea, no post nasal drip, oropharynx clear. Neck: Trachea midline, no JVD, no lymphadenopathy. Cardiovascular: Regular rate and rhythm, no murmurs, rubs or gallops, no peripheral edema. Respiratory: Clear to auscultation bilaterally, no tachypnea, no wheezing, no rhonchi, no rubs, no respiratory distress. Abdomen: Soft, nontender, nondistended, no rebound, no guarding, no peritoneal signs. Musculoskeletal: No joint swelling or deformity, normal muscle tone. Skin: No rashes or petechia, no signs of infection. Psychiatric: Alert and oriented, acutely psychotic, appears to be under the influence of drugs, severe paranoia. Neurological: Alert and oriented to person, place, and time. Follows all commands. No focal deficits, speech is clear and fluent. Course Vital Signs Vital signs: Vital Signs Temperature 97.6 F 10/18/24 03:06 Pulse Rate 75 10/18/24 03:06 Respiratory Rate 18 10/18/24 03:06 Blood Pressure 103/74 10/18/24 03:06 Pulse Oximetry 100 10/18/24 03:06 Temperature 97.6 F 10/18/24 03:06 Pulse Rate 75 10/18/24 03:06 Respiratory Rate 18 10/18/24 03:06 Blood Pressure 103/74 10/18/24 03:06 Pulse Oximetry 100 10/18/24 03:06 Medical Decision Making [facility] Narrative Medical decision making narrative: The patient was evaluated by myself in the emergency department. History is obtained from patient who is an independent historian and physical exam was performed. External medical records were reviewed at this time. IV was established and pertinent tests were ordered. Laboratory results obtained revealing no acute process. Urinalysis did reveal UTI which patient is aware of and was prescribed an antibiotic for. UDS did return back positive for barbiturates and amphetamines. Differential diagnosis considerations include acute psychosis, polysubstance abuse, anxiety, acute stress reaction. Comorbidities impacting this visit include history of polysubstance abuse, anxiety and acute psychosis. I have evaluated and discussed social determinants of health with the patient that could potentially impact subsequent diagnosis and treatment plans. On repeat assessment of the patient, reevaluation revealed that the patient is doing well and is in no acute distress. Patient symptoms have remained stable since she arrived to our emergency department. Repeat vital signs were all reviewed and noted to be stable. Differential diagnosis and treatment plan were discussed with the patient at bedside. Patient is not medically cleared pending psychiatric evaluation. Patient was evaluated by a crisis team and safety plan was provided to the patient. Vital Signs Vital Signs: Vital Signs Temperature 97.6 F 10/18/24 03:06 Pulse Rate 75 10/18/24 03:06 Respiratory Rate 18 10/18/24 03:06 Blood Pressure 103/74 10/18/24 03:06 Pulse Oximetry 100 10/18/24 03:06 Temperature 97.6 F 10/18/24 03:06 Pulse Rate 75 10/18/24 03:06 Respiratory Rate 18 10/18/24 03:06 Blood Pressure 103/74 10/18/24 03:06 Pulse Oximetry 100 10/18/24 03:06 Lab Data 10/18/24 03:26 10/18/24 03:27 Labs: Lab Results 10/18/24 10/18/24 10/18/24 Range/Units 03:26 03:27 03:34 WBC 8.3 (4.5-10.0) K/mm3 RBC 4.16 L (4.2-5.4) M/mm3 Hgb 12.7 (12.0-15.0) g/dL Hct 38.6 (37.0-47.0) % MCV 92.8 (80-100) fl MCH 30.5 (26-34) pg MCHC 32.9 (32-36) g/dl RDW 12.7 (11.5-14.5) % Plt Count 424 H (150-375) k/mm3 MPV 9.8 (7.4-10.4) fl Immature Gran % (Auto) 0.2 (0-0.5) % Neut % (Auto) 66.5 (45.5-73.1) % Lymph % (Auto) 26.0 (18.3-44.2) % [place] % (Auto) 6.1 (2.6-8.5) % Eos % (Auto) 0.5 (0-4.4) % Baso % (Auto) 0.7 (0.2-1.2) % Lymph # (Auto) 2.16 (0.9-3.2) K/mm3 [place] # (Auto) 0.5 (0.1-0.6) K/mm3 Eos # (Auto) 0.0 (0-0.3) K/mm3 Baso # (Auto) 0.1 (0.0-0.1) K/mm3 Abs Immat Gran (auto) 0.02 (0.00-0.031) K/mm3 Absolute Neuts (auto) 5.5 (1.3-6.7) K/mm3 Absolute Nucleated RBC 0.000 (0.0-0.012) K/mm3 Nucleated RBC % 0.0 (0.0-0.2) % Sodium Cancelled 140 Potassium Cancelled 4.0 Chloride Cancelled 106 Carbon Dioxide Cancelled 26 Anion Gap Cancelled 8 BUN Cancelled 20 H Creatinine Cancelled 0.92 Estim Creat Clear Calc Cancelled 52 Estimated GFR Cancelled > 60 Glucose Cancelled 101 Calcium Cancelled 9.6 Magnesium 2.2 (1.6-2.3) mg/dL Total Bilirubin Cancelled 0.5 AST Cancelled 25 ALT Cancelled 23 Alkaline Phosphatase Cancelled 89 Total Protein Cancelled 7.7 Albumin Cancelled 4.5 TSH (Reflex) 1.980 (0.465-4.68) uIU/mL Urine Color Dark yellow (Yellow) Urine Appearance Turbid H (Clear) Urine pH 5.5 (5.0-9.0) Ur Specific [place] 1.031 (1.001-1.035) Urine Protein 2+ H (Negative) mg/dL Urine Glucose (UA) Negative (Negative) mg/dL Urine Ketones 2+ H (Negative) mg/dL Ur Blood (Man) 3+ H (Negative) Urine Nitrate Negative (Negative) Urine Bilirubin 2+ H (Negative) Urine Urobilinogen 1.0 (<2.0) mg/dL Add Ur Microanalysis Reviewed Leukocyte Esterase Rfl Trace H (Negative) YANET/UL Urine RBC 3-5 H (0-2) /hpf Urine WBC 11-20 H (0-3) /hpf Ur Squamous Epith Cells Few (Few) /hpf Urine Bacteria 1+ H /hpf Urine Casts 3-5 POC Urine HCG, Qual Negative (Negative) Salicylates < 1.0 L (2-20) mg/dL Urine Opiates Screen Negative (Negative) Urine Methadone Screen Negative (Negative) Acetaminophen < 10 L (10-30) ug/mL Ur Barbiturates Screen Positive A (Negative) Ur Phencyclidine Scrn Negative (Negative) Ur Amphetamine Screen Positive A (Negative) U Benzodiazepines Scrn Negative (Negative) Urine Cocaine Screen Negative (Negative) U Cannabinoids Screen Negative (Negative) Ethyl Alcohol < 10 (<10) mg/dL Influenza A (RT-PCR) Negative (Negative) Influenza B (RT-PCR) Negative (Negative) RSV (RT-PCR) Negative (Negative) SARS-CoV-2 RNA (RT-PCR) Negative (Negative) Discharge Plan Discharge Clinical Impression: Acute psychosis Patient Disposition: Home Condition: Stable Instructions: Antibiotic Form Patient Language: Omani Prescriptions: No Action trazodone 50 mg tablet aripiprazole [Abilify] 5 mg tablet 5 mg PO DAILY lorazepam [Ativan] 0.5 mg tablet 0.5 mg PO Q6H PRN (Reason: anxiety) sulfamethoxazole-trimethoprim [Bactrim DS] 800-160 mg tablet 1 tablet PO Q12H Qty: 10 0RF azithromycin 500 mg tablet See Rx Instructions .ROUTE .COMPLEX Qty: 3 0RF Rx Instructions: For 500 mg dose pack: take 500 mg once daily for 3 days prednisone 20 mg tablet 20 mg PO DAILY 3 Days Qty: 3 0RF ondansetron 4 mg tablet,disintegrating 4 mg PO Q8H PRN (Reason: nausea and vomiting) Qty: 14 0RF levofloxacin 500 mg tablet 500 mg PO DAILY Qty: 6 0RF bupropion HCl [Wellbutrin SR] 150 mg tablet sustained-release 12 hr 150 mg PO QAM Qty: 30 0RF sulfamethoxazole-trimethoprim [Bactrim DS] 800-160 mg tablet 1 tablet PO Q12H 5 Days Qty: 10 0RF Follow-up/Referrals: PHYSICIAN,MARKETING PROJECT SPECIALIST [Primary Care Provider, Internal Medicine] Time of Disposition: 05:34
[2024-10-18 03:35] LABS: Hematocrit 38.6 % (37.0-47.0); Hemoglobin 12.7 g/dL (12.0-15.0); Immature Granulocyte Percent A 0.2 % (0-0.5); Lymphocytes Absolute Auto 2.16 K/mm3 (0.9-3.2); Mean Corpuscular HGB Conc 32.9 g/dl (32-36); Mean Corpuscular Hemoglobin 30.5 pg (26-34); Mean Corpuscular Volume 92.8 fl (80-100); Nucleated Red Blood Cells Absolute Auto 0.000 K/mm3 (0.0-0.012); Nucleated Red Blood Cells Perc 0.0 % (0.0-0.2); Platelet Count Result 424 k/mm3 (150-375); Red Blood Count 4.16 M/mm3 (4.2-5.4); White Blood Count 8.3 K/mm3 (4.5-10.0)
[2024-10-18 03:37] LABS: BEDSIDEPREGUCG Negative (Negative)
[2024-10-18 03:52] LABS: Acetaminophen < 10 ug/mL (10-30); Salicylate < 1.0 mg/dL (2-20)
--- OUTSIDE RECORDS SUMMARY | 2024-10-18 03:52 | XMS_ITS | Encounter Summary ---
Author Organization [facility] Address [address] [place] [id number] Care Team Providers Care Driver License Agent Name Role Phone Francisco Javier Ivan MD Primary Care Provider [phone] Encounter Details Date Type Department Care Team (Latest Contact Info) Description 10/17/2024 Travel Social History Tobacco Use Types Packs/Day Years Used Date Smoking Tobacco: Every Day Cigarettes Smokeless Tobacco: Never Alcohol Use Standard Drinks/Week Comments Never 0 (1 standard drink = 0.6 oz pur e alcohol) [facility] Utilities Answer Date Recorded In the past 12 months has e [email or web address], gas, oil, or water [employer] threatened to shut off services in your [...] time in the past 12 m [facility], were you homeless or living in a [...] PM CDT Ilana Toscano RN Active * [place] Suicide Severity Rating Scale (Screener/Recent Self-Report) Question [...] documented as of this encounter Care Teams Driver License Agent Relationship Specialty Start Date End Date Francisco Javier Ivan MD [address] [place] [address] PCP - General FAMILY PRACTICE 06/05/24 documented as of this encounter
--- OUTSIDE RECORDS SUMMARY | 2024-10-18 03:52 | XMS_ITS | Clinical Summary ---
Author Organization [facility] Address [facility] [place] [address] Care Team Providers Care Filing Writer Name Role Phone Francisco Javier Ivan MD Primary Care Provider [phone] Allergies Active Allergy Reactions Criticality Noted Date [...] CDT - 10/17/2024 8:00 PM CDT Emergency [facility] [address] [place] [address] [address] [place] [address] Familia Membreno MD Medical Problem Discharge [...] drink = 0.6 oz pur e alcohol) [facility] Utilities Answer Date Recorded In [...] any time in the past 12 m [facility], were you homeless or living in [...] (U) NEGATIVE NEGATIVE 10/17/2024 4:50 PM CD[address] [facility] PHENCYCLIDINE PCP (U) NEGATIVE NEGATIVE 10/17/2024 4:50 PM CD[address] [facility] COCAINE METABOLITES (U) NEGATIVE NEGATIVE 10/17/2024 4:50 PM CD[address] [facility] METHAMPHETAMINE SCREEN (U) POSITIVE(A) NEGATIVE 10/17/2024 4:50 PM CD[address] [facility] OPIATE SCREEN (U) NEGATIVE NEGATIVE 025 4:50 PM [address] [facility] AMPHETAMINE SCREEN (U) POSITIVE(A) NEGATIVE 10/17/2024 4:50 PM CD[address] [facility] BENZODIAZEPINES SCREEN (U) NEGATIVE NEGATIVE 10/17/2024 4:50 PM CD[address] [facility] TRICYCLIC ANTIDEPRESSANT SCREEN (U) NEGATIVE NEGATIVE 10/17/2024 4:50 PM CD[address] [facility] METHADONE (U) NEGATIVE NEGATIVE 10/17/2024 4:50 PM CDT [facility] BARBITURATES SCREEN (U) POSITIVE(A) NEGATIVE 10/17/2024 4:50 PM CD[address] [facility] OXYCODONE SCREEN (U) NEGATIVE NEGATIVE 10/17/2024 4:50 PM CD[address] [facility] URINE TOX COMMENT THIS TEST METHODOLOGY IS DESIGNED AND OFFERED A RAPID TURNAROUND, QUALITATIVE SCREENING PROCEDURE TO AID IN THE IMMEDIATE MEDICAL ASSESSMENT OF PATIENTS SUSPECTED OF SUBSTANCE ABUSE. 10/17/2024 4:[address] PM [address] [facility] Comment: CLINICAL CONSIDERATION AND PROFESSIONAL JUDGMENT MUST BE APPLIED TO ANY DRUG OF ABUSE TEST RESULT, BOTH POSITIVE AND NEGATIVE. CONFIRMATORY QUANTITATIVE RESULTS ARE AVAILABLE THROUGH OUR REFERENCE LABORATORY. URINE SPECIMEN / Unknown 10/17/2024 4:15 PM CDT Familia Membreno MD URINE ORDERABLES Final Result [facility] [address] [place] [address], * (ABNORMAL) BASIC METABOLIC PANEL (10/17/2024 4:12 PM CDT) SODIUM S/P/B 140 136 - 145 MMOL/L 10/17/2024 5:06 PM CD[address] [facility] POTASSIUM S/P/B 3.5 3.5 - 5.1 MMOL/L 10/17/2024 5:06 PM CD[address] [facility] CHLORIDE S/P/B 103 98 - 107 MMOL/L 10/17/2024 5:06 PM CDT [facility] CO2 27.0 21.0 - 32.0 MMOL/L 10/17/2024 5:06 PM CDT [facility] GLUCOSE 98 70 - 99 MG/DL 10/17/2024 5:06 PM CDT [facility] Comment: FASTING GLUCOSE 100 TO 125 MG/DL IS CONSISTENT WITH IMPAIRED FASTING GLUCOSE. FASTING GLUCOSE >125 MG/DL IS CONSISTENT WITH DIABETES. RANDOM GLUCOSE >200 MG/DL WITH HYPERGLYCEMIC SYMPTOMS IS CONSISTENT WITH DIABETES. PER ADA GUIDELINES BUN 18 6 - 24 MG/DL 10/17/2024 5:06 PM CD[address] [facility] CREATININE S/P/B 1.18(H) 0.55 - 1.02 MG/DL 10/17/2024 5:06 PM CD[address] [facility] CALCIUM S/P/B 10.0 8.4 - 10.5 MG/DL 10/17/2024 5:06 PM CD[address] [facility] ANION GAP 10.0 5.0 - 15.0 MMOL/L 10/17/2024 5:06 PM CD[address] [facility] OSMOLALITY (CALC) 292 MOSM/KG 025 5:[address] PM [address] [facility] Comment:REFERENCE RANGE NOT ESTABLISHED GFR ESTIMATE 59(L) >89 ML/MIN/1. 73 M2 10/17/2024 5:06 PM [address] [facility] GFR NOTES GFR REFERENCE S: 10/17/2024 5:06 PM [address] [facility] Comment: THE ESTIMATED GFR IS CALCULATED [...] us Familia Membreno MD LABORATORY Final Result [facility] [address] [place] [address], * (ABNORMAL) CBC W/DIFF AUTOMATED (10/17/2024 4:12 PM CDT) WBC 7.54 4.00 - 10.80 x10'3/uL 10/17/2024 4:47 PM [address] [facility] RBC 4.46 4.10 - 5.40 x10'6/uL 10/17/2024 4:47 PM CD[address] [facility] HGB 13.8 12.0 - 16.0 G/DL 10/17/2024 4:47 PM CD[address] [facility] HCT 40.3 36.0 - 47.0 % 10/17/2024 4:47 PM CD[address] [facility] MCV 90.4 78.0 - 100.0 FL 10/17/2024 4:47 PM [address] [facility] MCH 30.9 27.0 - 31.0 PG 10/17/2024 4:47 PM [address] [facility] MCHC 34.2 33.0 - 36.0 G/DL 10/17/2024 4:47 PM CD[address] [facility] RDW 12.5 11.5 - 14.5 % 10/17/2024 4:47 PM CD[address] [facility] PLT 470(H) 150 - 350 x10'3/uL 10/17/2024 4:47 PM CD[address] [facility] MPV 10.1 7.4 - 10.4 FL 10/17/2024 4:47 PM CDT [facility] CBC COMMENT NORMAL REFERENCE RANGE NOT ESTABLISHED FOR THE PROPORTIONAL LEUKOCYTE DIFFERENTIAL. 10/17/2024 4:[address] [facility] NEUTROPHILS % 66.6 % 10/17/2024 4:47 [address] [facility] LYMPHOCYTES % 24.8 % 10/17/2024 4:47 PM [address] [facility] MONOCYTES % 7.0 % 10/17/2024 4:47 PM CD[address] [facility] EOSINOPHILS % 0.5 % 10/17/2024 4:47 PM CD[address] [facility] BASOPHILS % 0.8 % 10/17/2024 4:47 PM CD[address] [facility] IMMATURE GRANS % 0.3 % 10/18/19 4:47 PM [address] [facility] NRBC % 0.0 % 10/17/2024 4:47 PM [address] [facility] ABS. NEUTROPHILS 5.02 1.60 - 8.30 x10'3/uL 10/17/2024 4:47 PM [address] [facility] ABS. LYMPHOCYTES 1.87 0.80 - 4.70 x10'3/uL 10/17/2024 4:47 PM [address] [facility] ABS. MONOCYTES 0.53 0.00 - 1.50 x10'3/uL 10/17/2024 4:47 PM [address] [facility] ABS. EOSINOPHILS 0.04 0.00 - 0.40 x10'3/uL 10/17/2024 4:47 PM CDT [facility] ABS. BASOPHILS 0.06 0.00 - 0.20 x10'3/uL 10/17/2024 4:47 PM [address] [facility] ABS. IMMATURE GRANULOCYTES 0.02 0.00 - 0.03 x10'3/uL 10/17/2024 4:47 PM [address] [facility] ABS. NUCLEATED RBC'S 0.00 0.00 - 0.01 x10'3/uL 10/17/2024 4:[address] [facility] 10/17/2024 4:12 PM CDT Familia Membreno MD LABORATORY Final Result [facility] [address] [place] [address], * ETHANOL (10/17/2024 4:12 PM CDT) ALCOHOL S/P/B <0.003 <0.003 G/DL 10/17/2024 5:[address] PM [address] [facility] 10/17/2024 4:12 PM CDT us Familia Membreno MD LABORATORY Final Result Performing Organization Address [facility]/[place] [address], * CORONAVIRUS (COVID-19) ANTIGEN (10/17/2024 4:05 PM CDT) CORONAVIRUS ANTIGEN IA NEGATIVE NEGATIVE 10/17/2024 5:06 PM [address] [facility] Comment: NEGATIVE RESULTS DO [...] SPECIMEN TYPE NASAL 10/17/2024 4:43 PM CDT [facility] NASAL NASAL STRUCTURE / Unknown 10/17/2024 4:05 PM CDT us Familia Membreno MD MICROBIOLOGY - GENERAL ORDERAB LES Final Result Performing Organization Address [facility] Co de Phone Number [facility] [address] [place] [id number], * ECG 12 lead (10/17/2024 3:31 PM CDT) 10/17/2024 3:31 PM CDT Narrative [facility] - 10/17/2024 7:04 PM CDT [address] [place] [address] Test Date: 2024-10-17 Pat Name: JJ ROUSE Department: 3 Room: [place] [id number] Gender: Female Quality Assurance Assistant: : 1980 Requested By: IVAN MEMBRENO Order Number: [id number] Dianne MD: Elenita Leggett Measurements Intervals Weiner Rate: 86 P: 81 UT: 130 QRS: 81 QRSD: 98 T: 82 QT: 361 QTc: 434 Interpretive Statements SINUS RHYTHM POSSIBLE RIGHT ATRIAL ENLARGEMENT Procedure Note Elenita Leggett MD - 10/17/2024 [facility] [address] [place] [address] Test Date: 2024-10-17 Pat Name: JJ ROUSE Department: 3 Room: EXAM 707 Gender: Female Quality Assurance Assistant: : 1980 Requested By: IVAN MEMBRENO Order Number: [id number] Reading MD: Elenita Leggett Measurements Intervals Weiner Rate: 86 P: 81 UT: 130 QRS: 81 QRSD: 98 T: 82 QT: 361 QTc: 434 Interpretive Statements SINUS RHYTHM POSSIBLE RIGHT ATRIAL ENLARGEMENT Familia Membreno MD ECG ORDERABLES Final Result [facility] * HEPATITIS PANEL,ACUTE (10/13/2023 3:24 [...] PRESENTATION RECOMMENDED. HAV IGM NON-REACT VARGHESE NON-REACT VARGHEES 10/13/2023 1:41 PM CDT [facility] Result [facility] [address] [place] [address], [id number] from Last 3 Months or Most Recently Relevant to Health Maintenance Insurance [employer] Advance Directives Documents on File Type Date Recorded Patient Healthcare Representative Expl anation Advance Directives and Living Will 05/10/2015 12:00 AM ADVANCED DIRECTIVES Advance Directives and Living Will 08/06/2013 12:00 AM ADVANCED DIRECTIVES Advance Directives and Living Will 12/28/2012 12:00 AM ADVANCED DIRECTIVES * Full Code (Latest Code Status on File) Date Activated Date Inactivated Comments 10/13/2023 5:53 AM 10/14/2023 10:50 AM Care Teams Filing Writer Relationship Specialty Start Date End Date Francisco Javier Ivan MD [address] [address] PCP - General FAMILY PRACTICE 06/05/24
--- OUTSIDE RECORDS SUMMARY | 2024-10-18 03:52 | XMS_ITS | Encounter Summary ---
Author Organization [facility] Address [facility] [place] [address] Care Team Providers Care Mitten Stitcher Name Role Phone None, Provider Primary Care Provider Francisco Javier Santana MD Primary Care Provider [phone] Encounter Details Date Type Department Care Team (Late st Contact Info) Description 07/31/2018 Abstract [facility] CONVERSION [address] [place] [address] , Generic Conversion, Social History [...] documented as of this encounter Care Teams Mitten Stitcher Relationship Specialty Start Date End Date None, Provider, PCP - General UNKNOWN PHYSICIAN SPECIALTY 07/13/23 06/04/24 Francisco Javier Ivan MD [address] [place] [id number] PCP - General FAMILY PRACTICE 06/05/24 documented as of this encounter
[2024-10-18 03:53] LABS: Alanine Aminotransferase 23 U/L (6-35); Albumin Level 4.5 g/dL (3.5-5.1); Alkaline Phosphatase 89 U/L (38-126); Anion Gap 8 mmol/L (4-12); Aspartate Amino Transferase 25 U/L (14-36); Bilirubin,Total 0.5 mg/dL (0.2-1.3); Blood Urea Nitrogen 20 mg/dL (7-17); Calcium 9.6 mg/dL (8.4-10.2); Carbon Dioxide 26 mmol/L (22-30); Chloride 106 mmol/L (98-107); Estimated CRCL calculation 52 ml/min; Estimated Glomerular Filt Rate > 60; Glucose 101 mg/dL (65-110); Magnesium 2.2 mg/dL (1.6-2.3); Potassium 4.0 mmol/L (3.4-5.0); Sodium 140 mmol/L (137-145); Total Protein 7.7 g/dL (6.3-8.2)
[2024-10-18 04:11] LABS: Influenza A QL RT-PCR Negative (Negative); Influenza B QL RT-PCR Negative (Negative); RSV RNA, RT-PCR Negative (Negative); SARS-CoV-2 RNA PCR Negative (Negative)
[2024-10-18 04:23] LABS: Thyroid Stimulating Hormone Reflex 1.980 uIU/mL (0.465-4.68)
[2024-10-18 04:35] LABS: Cannabinoid Screen Urine Negative (Negative)
[2024-10-18 05:20] LABS: Add Urine Microscopic? YES; Appearance Urine Turbid (Clear); Glucose Urine UA Negative (Negative); Leukocyte Esterase Ur Trace LEU/UL (Negative); Need Manual Microscopic Reviewed; Nitrate Urine Negative (Negative); Specific Grav Ur 1.031 (1.001-1.035)
== END 2024-10-18 07:03 | disposition home or self-care (01) ==
PROVIDERS: Emergency Provider Emergency Medicine
DX: F23 Brief psychotic disorder (principal); Z20.822 Contact with and (suspected) exposure to COVID-19; F17.210 Nicotine dependence, cigarettes, uncomplicated
CPT/HCPCS: 36415; 80053; 80143; 80179; 80307; 81001; 81025; 82077; 83735; 84443; 85025; 87637; 99284

== ENCOUNTER 2024-12-13 03:48 | Emergency (ER) | payer OTHER, SELFPAY ==
--- OUTSIDE RECORDS SUMMARY | 2024-09-28 05:40 | XMS_ITS ---
Author Organization [facility] Address [address] [place] [address] Care Team Providers Care Twister Doffer Name Role Phone Alana Epps Primary Care Provider Ana Verma [phone] REASON FOR VISIT new patient Social History Sex Assigned At : Social History Observation Description Sex Assigned At Female Encounters Encounter Location Date [facility] [address] [place] [address] 09/28/2024 Ana Verma Plan Of Treatment No Information Progress Notes * Jaycee SLATERDOB:1980 (44 yo F)Acc No.[id number]:09/28/2024 UNLOCKED PROGRESS NOTE Patient: Jaycee AYALA Provider: ALCON Nash, CENTRIFUGAL CASTING MACHINE TENDER, PMHNP-BC :1980 A ge:44 Y S ex:Female Date:09/28/2024 Address:[address] [facility] Pcp:Alana Epps Subjective: * Chief Complaints: * 1 . New patient. * Medical History: Objective: * Vitals: Assessment: Plan: * Treatment: * * Electronic signature of Anton Verma on 12/13/2024 at 03:52 AM CDT Sign off status: Pending * Provider: Peg Verma MSN, CENTRIFUGAL CASTING MACHINE TENDER, PMHNP-BC Date: 0 09/28/2024 Generated for Printing/Faxing/eTransmitting on: 1 03:52 AM CDT
--- OUTSIDE RECORDS SUMMARY | 2024-09-29 04:20 | XMS_ITS ---
Author Organization [facility] Address [address] [place] [address] Care Team Providers Care Box Printer Name Role Phone Alana Epps Primary Care Provider [phone] Leandro Harris [phone] REASON FOR VISIT new patient Social History Sex Assigned At : Social History Observation Description Sex Assigned At Female Encounters Encounter Location Date Provider Diagnosis [address] [place] [address] 09/29/2024 Leandro Harris Plan Of Treatment No Information Progress Notes * JENNYFERJaycee SCHULZDOB:1980 (44 yo F)Acc No.[id number]:09/29/2024 UNLOCKED PROGRESS NOTE Patient: Jaycee AYALA Provider: Sasha Harris DNP, PMHNP-BC :1980 A ge:44 Y S ex:Female Date:09/29/2024 [address] [facility] Pcp:Alana Epps Subjective: * Chief Complaints: * 1 . New patient. * Medical History: Objective: * Vitals: Assessment: Plan: * Treatment: * * Electronic signature of Kanu Harris APRN, [id number] on 12/13/2024 at 03:52 AM CDT Sign off status: Pending * Provider: Sasha Harris DNP, PMHNP-BC Date: 0 09/29/2024 Generated for Roland felder/Karina/eTransmitting on: 1 03:52 AM CDT
--- OUTSIDE RECORDS SUMMARY | 2024-10-06 03:20 | XMS_ITS ---
Author Organization [facility] Address [address] [place] [address] Care Team Providers Care Crushing Machine Operator Name Role Phone Alana Epps Primary Care Provider [phone] REASON FOR VISIT 1 week f/u Social History Sex Assigned At : Social History Observation Description Sex Assigned At Female Encounters Encounter Location Date Provider Diagnosis [place] [address] [facility] [place] [address] 10/06/2024 Alana Epps Plan Of Treatment No Information Progress Notes * Jaycee ROUSEDOB:1980 (44 yo F)Acc No.[id number]:10/06/2024 UNLOCKED PROGRESS NOTE Patient: Jaycee AYALA Provider: Sasha Epps MSN, NICK SETTER, SUPERVISOR FIBERGLASS BOAT ASSEMBLY-C :1980 A ge:44 Y S ex:Female Date:10/06/2024 Address[address] [facility] Subjective: * Chief Complaints: * 1 . 1 week f/u. * Medical History: Objective: * Vitals: Assessment: Plan: * Treatment: * Care Plan Details* * Electronic signature of Guera Epps APRN, [id number] on 12/13/2024 at 03:53 AM CDT Sign off status: Pending * Provider: Sasha Epps MSN, NICK SETTER, SUPERVISOR FIBERGLASS BOAT ASSEMBLY-C Date: 0 10/06/2024 Generated for Roland felder/Karina/eTransmitting on: 1 03:53 AM CDT
[2024-12-13 03:48] VITALS: BP 106/69; PULSE 82; RESP 18; TEMP 37.1; O2SAT 100
--- OUTSIDE RECORDS SUMMARY | 2024-12-13 03:52 | XMS_ITS | Clinical Summary ---
Author Organization [facility] Address [address] [place] [address] Care Team Providers Care Product Test Specialist Name Role Phone Christofer Stewart MD Primary [...] 1.7 cm about 1.5 years ago in [facility] - obtain US of thyroid, [...] Encounters Date Type Department Care Team Description 10/21/2024 Telephone [facility] Primary Care at [place] [address] [facility] [address] [place] [address] Christofer Stewart MD 10/17/2024 1:35 AM CDT - 10/17/2024 2:55 AM CDT Emergency [facility] Emergency Department [address] [place] [address] Jamarcus Irvin MD Kanumuri, Raghu, MD Chest pain, unspecified type (Primary Dx) Discharge Disposition: Discharge to home or self care 09/18/2024 2:48 PM CDT - 09/18/2024 3:17 PM CDT Emergency [facility] Emergency Department [address] [place] [address] Discharge Disposition: Left without being seen 09/18/2024 Documentation [facility] Warm Hand Off Program [address] [place], [place] [phone] Trisha Marie from Last 3 Months Surgical History Surgery Date Site/Laterality Comments HAND SURGERY Social History Tobacco Use Types Packs/Day Years Used Date Smoking Tobacco: Every Day Cigarettes 1.3 12.2 Started: 09/23/2012 Tobacco Cessation:Ready to Q uit: [...] on file Legal Sex Female 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 Smoker TECHNIQUE: Frontal and lateral [...] Ml Foster M.D. SN: SN Report ID: [id number] Reading Location: [id number] Procedure Note Ml Foster MD - 10/17/2024 EXAM DESCRIPTION: XR CHEST PA LATERAL 2 VIEWS REASON FOR STUDY: cough Pt has flight of ideas and [place] [facility] [place] [facility] Smoker TECHNIQUE: Frontal and lateral radiographic views [...] Ml Foster M.D. SN: SN Report ID: [id number] Reading Location: [id number] Tre Roche MD IMG XR PROCEDURES Final Result * ECG 12 lead (10/17/2024 12:07 AM CDT) 10/17/2024 12:0 7 AM CDT Narrative [facility] - 10/17/2024 6:47 AM CDT Vent Rate: 84 bpm RR Interval: [address] Interval: 111 msec QRS Duration: 96 msec QT Interval: 362 msec QTC Interval: 403 msec P-R-T Abrams: 80 - 73 - 64 degrees IMPRESSION: Baseline artifact, probable SINUS RHYTHM WITH SHORT CT INTERVAL LEFT ATRIAL ENLARGEMENT [-0.15mV P WAVE IN V1/V2] POSSIBLE LEFT VENTRICULAR HYPERTROPHY [VOLTAGE CRITERIA PLUS LAE OR QRS WIDENING] ABNORMAL ECG NO CHANGE FROM PREVIOUS TRACING NOTED Electronically Signed By: Francois Casarez MD Jamarcus Irvin MD ECG ORDERABLES Final Result [facility] * (ABNORMAL) Drugs of Abuse Screen, Urine without Confirmation (09/18/2024 1:07 PM CDT) Amphetamine, ur Screen Positive, presumptive (A) CutOff 500ng/mL [facility] (NAB) Comment: Interpretive Data - Amphetamines: Samples containing [...] to be used for Pain Management purposes. us Tre Roche MD LAB URINE ORDERABLES Final Res ult RAUL SMITH (NBA) [address] Department [place] [address] from Last [address] [facility] Advance Directives For more information, please contact: [phone] * Full Code (Latest Code Status on File) Date Activated Date Inactivated Comments 10/20/2023 12:17 PM 10/20/2023 8:58 PM Care Teams Product Test Specialist Relationship Specialty Start Date End Date Christofer Stewart MD PCP - General Family Medicine 06/23/23
--- NOTE | 2024-12-13 03:53 | ED.GENADULT ---
HPI - General Adult General Stated complaint: Right arm pain Time Seen by Provider: 12/13/24 03:51 History of Present Illness HPI narrative: Jaycee is a 44F with a PMH of tooth decay, drub abuse and infections that presented to the ED with a couple weeks of intermittent right thumb and wrist burning. It wakes her up from sleep and she has to shake out her hand. Certain positions make her hand go numb. No trauma to the area. No systemic symptoms noted. Related Data Home Medications ?Medication ?Instructions ?Recorded ?Confirmed ?Last Taken ?Type aripiprazole 5 mg tablet (Abilify) 5 mg PO DAILY 05/17/24 05/17/24 Unknown History lorazepam 0.5 mg tablet (Ativan) 0.5 mg PO Q6H PRN anxiety 05/17/24 05/17/24 Unknown History trazodone 50 mg tablet mg 05/17/24 Unknown History Allergies Allergy/AdvReac Type Severity Reaction Status Date / Time Penicillins Allergy Severe Difficulty Verified 12/13/24 04:00 Swallowing codeine AdvReac Swelling Verified 12/13/24 04:00 Review of Systems Review of Systems: All systems reviewed & are unremarkable except as noted in HPI and below PMFSH Past Medical History Medical History Drug abuse Tooth decay Surgical History Surgical History History of x3 Family History Family History Father No problems noted. Father Lung cancer Mother Heart disease Social History Social History Years smoked: 20 Smoking status: Current every day smoker Tobacco type: cigarettes Second hand tobacco smoke exposure: Yes Alcohol intake: former Substance use: former Substance use type: methamphetamine Gender identity (if verbalized by the patient): Female Spiritual care concerns: No Exam Const: General: cooperative, healthy appearing, comfortable, no acute distress, well developed, alert, awake and Physically active Orientation/consciousness: oriented to person, oriented to place and oriented to time HENMT: Head: normal to inspection, normocephalic and atraumatic Ears: hearing grossly normal bilaterally and external ears normal Face/Nose/Sinus: Normal external nose present Eyes: General: appearance normal, both eyes and all related structures Periorbital: periorbital findings normal Sclera: sclerae normal Pupils: Equal, round and reactive pupils present Neck: Neck: normal visual inspection Chest: Chest palpation & inspection: normal inspection of the chest Resp: Effort & Inspection: normal respiratory effort, able to speak in complete sentences and no respiratory distress Cardio: Jugular venous distension: no JVD Skin: General skin exam: normal color and no rashes or lesions noted Neuro: General: oriented to person, oriented to place and oriented to time Cranial nerves: Yes Equal, round and reactive pupils present Other: +prayer and Phalen test on the right wrist Extrem: General: normal to inspection Discharge Plan Discharge Clinical Impression: Carpal tunnel syndrome Patient Disposition: Home Condition: Stable Instructions: Carpal Tunnel Syndrome (DC) Additional Instructions: Start wearing carpal tunnel splints at night. If this does not help follow with with your primary care provider for further workup. Patient Language: Russian Prescriptions: No Action trazodone 50 mg tablet aripiprazole [Abilify] 5 mg tablet 5 mg PO DAILY lorazepam [Ativan] 0.5 mg tablet 0.5 mg PO Q6H PRN (Reason: anxiety) sulfamethoxazole-trimethoprim [Bactrim DS] 800-160 mg tablet 1 tablet PO Q12H Qty: 10 0RF azithromycin 500 mg tablet See Rx Instructions .ROUTE .COMPLEX Qty: 3 0RF Rx Instructions: For 500 mg dose pack: take 500 mg once daily for 3 days prednisone 20 mg tablet 20 mg PO DAILY 3 Days Qty: 3 0RF ondansetron 4 mg tablet,disintegrating 4 mg PO Q8H PRN (Reason: nausea and vomiting) Qty: 14 0RF levofloxacin 500 mg tablet 500 mg PO DAILY Qty: 6 0RF bupropion HCl [Wellbutrin SR] 150 mg tablet sustained-release 12 hr 150 mg PO QAM Qty: 30 0RF sulfamethoxazole-trimethoprim [Bactrim DS] 800-160 mg tablet 1 tablet PO Q12H 5 Days Qty: 10 0RF Follow-up/Referrals: UNKNOWN,DOCTOR [Primary Care Provider]
--- OUTSIDE RECORDS SUMMARY | 2024-12-13 03:53 | XMS_ITS | Encounter Summary ---
Author Organization [facility] Address [facility] [place] [address] Care Team Providers Care Drum Handler Name Role Phone None, Provider Primary Care Provider Francisco Javier Santana MD Primary Care Provider [phone] Encounter Details Date Type Department Care Team (Late st Contact Info) Description 07/31/2018 Abstract SFL CONVERSION [address] [place] [address] , Generic Conversion, Social History [...] Out 10/17/2024 10/17/2024 10/17/2024 5:06 PM CDT Respiratory Rule Out 10/18/2024 10/18/2024 025 1:50 PM CDT documented as of this encounter Care Teams Drum Handler Relationship Specialty Start Date End Date None, Provider, PCP - General UNKNOWN PHYSICIAN SPECIALTY 07/13/23 06/04/24 Francisco Javier Ivan MD [address] [place] [id number] PCP - General FAMILY PRACTICE 06/05/24 documented as of this encounter
--- OUTSIDE RECORDS SUMMARY | 2024-12-13 03:53 | XMS_ITS | Patient Health Record ---
Author Organization [facility] Address [address] [place] [address] Care Team Providers Care Moss Picker Name Role Phone Alana Epps Primary Care Provider Kasey Ny Unavailable [phone] Ava Hernandez Unavailable [phone] Leandro Harris Unavailable [phone] Ana Verma Unavailable [phone] Braxton Costa Unavailable [phone] Allergies Allergen (clinical drug ingredient) Drug/Non Drug Allergy documented on EMR Reaction Allergy Type Onset Date Status Penicillin rash Drug Allergy Active Results Component Value Reference Range Notes QuantiFERON-TB Gold Plus ([id number]) Reviewed date:09/22/2024 02:30:29 PM Interpretation:Normal Performing Lab:[facility], [address] [place] [address], Phone - [phone], Director [facility] Notes/Report: QuantiFERON Incubation Incubation performed. QuantiFERON-TB Gold [...] Screen *HIV 1, 2 Ab, p24 Ag ([id number]) Reviewed date:09/21/2024 02:19:40 PM Interpretation:Normal Performing Lab[facility], [address] [place] [address], Phone - [phone], Director - [facility] Notes/Report: HIV Ab/p24 Ag Screen Non Reactive Non Reactive HIV-1/HIV-2 antibodies and HIV-1 p24 antigen were NOT detected. There is no laboratory evidence of HIV infection. HIV Negative CMP 14 Comprehensive Metabol ic Panel* Reviewed date:09/21/2024 02:19:40 PM Interpretation:Normal Performing Lab:[facility] [place], [address] [place] [address], Phone - [phone], Director - [facility] Notes/Report: Glucose 73 70-99 mg/dL [...] Reviewed date:09/21/2024 02:19:40 PM Interpretation:Normal Performing Lab:[facility] [place], [address] [facility], [place], Phone - [phone], Director - Eryn Notes/Report: WBC 5.9 3.4-10.8 [...] neg BUP neg TCA neg FTY neg 14 Panel Urine Drug Screen Reviewed date:11/15/2024 10:46:03 AM Interpretation: Performing Lab: Notes/Report: THC neg CHRISTOPHER neg MOP (OPI) neg AMP neg MET neg BAR neg BZO neg MDMA neg MTD neg OXY neg PCP neg BUP pos TCA neg FTY neg 14 Panel Urine Drug Screen Reviewed date:10/21/2024 03:53:19 PM Interpretation: Performing Lab: Notes/Report: THC neg CHRISTOPHER neg MOP (OPI) neg AMP neg MET neg BAR pos BZO neg MDMA neg MTD neg OXY neg PCP neg BUP neg TCA neg FTY neg Reason For Referral No Information Medications Medication SIG (Take, Route, Frequency, Duration) Notes Start Date End Date Status OLANZapine 10 MG 1 tablet at bedtime Orally Once a day; Duration: 30 days 09/21/2024 Active OLANZapine 2.5 MG 1 tablet as needed Orally Once a day; Duration: 30 days As needed 09/21/2024 Active Buprenorphine HCl-Naloxone HCl 4-1 MG 1 film under the tongue and allow to dissolve Sublingual twice a day 11/15/2024 Active Social History Tobacco Use: Social History Observation Description Date Details (start date - stop date) Current Smoker NA - NA Sex Assigned At : Social History Observation Description Sex Assigned At Female Tobacco Control (Standard) Question Answer Notes Tobacco use: Current smoker Problems Problem Type SNOMED Code ICD Code Onset Dates Problem Status W/U Status Risk Notes Problem Benign paroxysmal positional vertigo (021682393) Benign paroxysmal vertigo, bilateral (H81.13) Active confirmed Problem Thyroid nodule (132304021) Thyroid nodule (E04.1) Active confirmed Problem Systolic murmur (38601363) Systolic murmur (I38) Active confirmed Problem Bipolar disorder (06067936) Bipolar 1 disorder, depressed (F31.9) Active confirmed Problem Stimulant abuse (341654864) Methamphetamine use disorder, mild, 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 confirmed Problem Opioid use disorder (3971248106) Opioid use disorder (F11.99) Active confirmed Problem Tobacco user (685741288) Nicotine dependence with current use (F17.200) Active confirmed Vital Signs Heart Rate 75 /min 11/15/2024 Temperature 97.9 degrees Fahrenheit 10/21/2024 Respiratory Rate 16 /min 11/15/2024 Blood pressure diastolic 74 mm Hg 11/15/2024 Oximetry 98 % 11/15/2024 Height 61 in 11/15/2024 Blood pressure systolic 110 mm Hg 11/15/2024 Weight 112.6 lbs 11/15/2024 BMI 21.27 kg/m2 11/15/2024 Encounters Encounter Location Date Provider Diagnosis [place] [address] 09/20/2024 Alana Epps Methamphetamine use disorder, mild, in early remission F15.10 ; Opioid use disorder F11.99 ; Routine general medical examination at a health care facility Z00.00 and Nicotine dependence with current use F17.[address] [place] [address] 09/20/2024 Ava Sandereckbooneedwin Methamphetamine use disorder, mild, in early remission F15.10 and Bipolar 1 disorder, depressed F31.[address] [place] [address] 09/21/2024 Kasey Ny Bipolar 1 disorder, depressed F31.9 [address] [address] [place] [address] 09/26/2024 Braxton Costa Thyroid nodule E04.1 ; Benign paroxysmal vertigo, bilateral H81.13 ; Systolic murmur I38 and Over weight E66.3 [address] [address] [place] [address] 10/21/2024 Alana Epps Opioid use disorder F11.99 [address] [address] [place] [address] 11/15/2024 Alana Epps Opioid use disorder F11.99 [address] [place] [place] [address] 09/19/2024 Alana Epps [address] [address] [place] [facility] [place] [address] 09/20/2024 Alana Epps [address] [address] [place] [address] 09/29/2024 Alana Epps Opioid use disorder F11.99 [address] [address] [place] [address] 10/13/2024 Alana Epps Assessments Encounter Date Diagnosis (ICD Code) Assessment Notes Treatment Notes Treatment Clinical Notes Section Notes 11/15/2024 Opioid use disorder (ICD-10 - F11.99) 10/21/2024 Opioid use disorder (ICD-10 - F11.99) 09/29/2024 Opioid use disorder (ICD-10 - F11.99) [...] day 09/26/2024 Thyroid nodule (ICD-10 - E04.1) 09/21/2024 Bipolar 1 disorder, depressed (ICD-10 - F31.9) Start olanzapine to help with mood instability and sleep. Olanzapine 2.5mg po PRN daily for anxiety. 10mg scheduled po QHS. Labs completed recently. May self-administer medications or be administered own oral medications per [facility] protocols. Provided informed consent with understanding of side effects, adverse effects, risks and benefits as well as alternative treatments as previously discussed and with the above recommended medications & other aspects of the treatment program. Agrees to return sooner if symptoms worsen or suicidal or homicidal ideations occur. 09/20/2024 Methamphetamine use disorder, mild, in early remission (ICD-10 - F15.10) 09/20/2024 Methamphetamine use disorder, mild, in early remission (ICD-10 - F15.10) 09/20/2024 Opioid use disorder (ICD-10 - F11.99) 09/26/2024 Systolic murmur (ICD-10 - I38) 09/20/2024 Routine general medical examination at a health care facility (ICD-10 - Z00.00) SUPR Programs: Based on an evaluation of [facility] Patient Placement Criteria, a recommendation [...] the purposes of identifying additional service needs. 10/21/2024 Other Discussed medication side effects, adverse effects, risks, benefits, as well as interactions. Encouraged non-use of opioids. Has naloxone. Recommended participation in recovery groups and/or counseling services. May contact office with questions or concerns. 11/15/2024 Other Discussed medication side effects, adverse effects, risks, benefits, as well as interactions. Encouraged non-use of opioids. Has naloxone. Recommended participation in recovery groups and/or counseling services. May contact office with questions or concerns. Patient may self-administe r their own medications or may self-administe r their own oral medications per [facility] Protocol. Plan Of Treatment Future Test Test Name Order Date Echo doppler exam 09/26/2024 Ultrasound : Thyroid 09/26/2024 Insurance Providers Payer Name Payer Address Payer Phone Subscriber Number Group Number Insured Name Patient Relationship to Insured Coverage Start Date Coverage End Date [employer] [address] [place] [address] [id number] Jaycee Rouse Self - patient is the insured 3 [employer] [address] [place] [address] [id number] Jaycee Rouse Self - patient is the insured 5 [employer] [address] [place] [phone] [id number] Jaycee Rouse Self - patient is the insured 5 Medical (General) History Medical History History ICD Code Manic Depression Surgical History Surgery Date(Month/Year) 3 c-sections right hand has pins gall bladder removed Hospitalization History Reason Date(Month/Year) gateway, multiple times between 2023- 5 06/2024
--- OUTSIDE RECORDS SUMMARY | 2024-12-13 03:53 | XMS_ITS | Clinical Summary ---
Author Organization [facility] Address [facility] [place] [address] Care Team Providers Care Hole Digger Operator Name Role Phone Francisco Javier Ivan MD Primary Care Provider [phone] Allergies Active Allergy Reactions Criticality Noted Date Comments Codeine Anaphylaxis,Shortnes s of Breath High 07/13/2015 Ketorolac Other (see comment) 07/13/2015 Rapid Heart Rate Naproxen GI Upset 07/13/2015 No problems with Ibuprofen Penicillins Unknown 07/13/2023 Medications buprenorphine-n aloxone (SUBOXONE) 4 mg-[address] 1 Film under the tongue 2 (two) times a day. 09/29/2024 Active hydrOXYzine (VISTARIL) 25 MG capsule Take 1 capsule (25 mg total) by mouth 4 (four) times daily as needed for Anxiety. 09/21/2024 Active OLANZapine (ZYPREXA) 10 MG tablet Take 1 tablet (10 mg total) by mouth nightly at bedtime. 09/21/2024 Active traZODone (DESYREL) 100 MG tablet Take 1 tablet (100 mg total) by mouth nightly at bedtime. 09/29/2024 Active multi vitamin/mineral s (THERA-M ENHANCED) tablet Take 1 tablet by mouth daily. 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 Encounters Date Type Department Care Team Description 10/18/2024 9:46 AM CDT - 10/18/2024 10:30 PM CDT Emergency [facility] [place] [address] Sherwin Manzo MD Geldmacher, Kelly J, MD Medical Problem Discharge Disposition: [facility] 10/17/2024 2:59 PM CDT - 10/17/2024 8:00 PM CDT Emergency [facility] [address] [address] Familia Carter MD Medical Problem Discharge Disposition: Home or Self Care (Routine Discharge) 10/17/2024 Travel from Last 3 Months Social History Tobacco Use Types Packs/Day Years Used Date Smoking Tobacco: Every Day Cigarettes Smokeless Tobacco: Never Tobacco Cessation:Ready to Q uit: Not Asked; Counseling Given: Not Answered Alcohol Use Standard Drinks/Week Comments Never 0 (1 standard drink = 0.6 oz pur e alcohol) [facility] Utilities Answer Date Recorded In the past 12 months has [facility] [employer], gas, oil, or water cinvolve threatened to shut off services in your [...] any time in the past 12 m [facility], were you homeless or living in a fci (including now)? Yes 10/13/2023 Comments No Sex and Gender Information Value Date Recorded Sex Assigned at Female 10/17/2024 3:24 PM CDT Legal Sex Female 11:36 PM CDT Gender Identity Not on file Sexual Orientation Not on file Last Filed Vital Signs Vital Sign Reading Time Taken Comments Blood Pressure 114/97 10/18/2024 9:44 PM CDT Pulse 76 10/18/2024 9:44 PM CDT Temperature 36.8 C (98.2 F) 10/18/2024 9:44 PM CDT Respiratory Rate 18 10/18/2024 9:44 PM CDT Oxygen Saturation 96% 10/18/2024 9:44 PM CDT Inhaled Oxygen Concentration - - Weight 48.2 kg (106 lb 4.2 oz) 10/18/2024 9:52 A M CDT Height 154.9 cm (5' 1) 10/18/2024 9:52 AM CDT Body Mass Index 20.08 10/18/2024 9:52 AM CDT Plan of Treatment Health Maintenance Due Date Last Done Comments Annual Physical 1985 Pneumococcal Vaccine: Pediatrics (0 to 5 Years) and At-Risk Patients (6 to 49 Years) (1 of 2 - PCV) 2001 02/24/2016 HPV Vaccines (1 - 3-dose SCDM series) 2009 Hepatitis A Vaccines (2 of 2 - Risk 2-dose series) 06/10/2019 12/09/2018 Hepatitis B Vaccines (3 of 3 - 19+ 3-dose series) 06/10/2019 01/27/2019, 12/09/2018 Mammogram Screening 2022 COVID-19 Vaccine ( - season) 2024 Influenza Adult (#1) 2024 12/09/2018, 04/05/2014, 02/22/2013 Cervical Cancer Screening Pap [...] Procedure Name Priority Date/Time Associated Diagnosis Comments CT HEAD WO CON STAT 10/18/2024 8:19 PM CDT URINE BACTERIA CULTURE STAT 4:30 PM CDT RESPIRATORY PCR PANEL 2 STAT 10/18/2024 12:33 PM CDT TEST URINE STAT 10/18/2024 11:00 AM CDT URINALYSIS, AUTO, COMPLETE STAT 10/18/2024 11:00 AM CDT DRUG SCREEN RAPID STAT 10/18/2024 10: 56 AM CDT MAGNESIUM Routine 10/18/2024 10:45 AM CDT CK (CPK) Routine 10/18/2024 10:45 AM CDT SALICYLATE STAT 10/18/2024 10:45 AM CDT THYROID STIM HORMONE TSH STAT 10/18/2024 10:17 AM CDT ACETAMINOPHEN STAT 10/18/2024 10:17 AM CDT ETHANOL STAT 10/18/2024 10:17 AM CDT COMPREHENSIVE METABOLIC PANEL STAT 10/18/2024 10:17 AM CDT CBC W/DIFF AUTOMATED STAT 10/18/2024 10:17 AM CDT ECG 12-LEAD STAT 10/18/2024 10:08 AM CDT DRUG SCREEN RAPID STAT 10/17/2024 4:1 5 [...] Recently Relevant to Health Maintenance Results * CT HEAD WO CON (10/18/2024 8:19 PM CDT) Anatomical Region Laterality Modality Head Computed Tomogra phy 10/18/2024 8:20 PM CDT Impressions 10/18/2024 8:22 PM CDT IMPRESSION: No acute intracranial abnormalities identified. Referred By: Interpreted By: Gaurav Damon DO, 10/18/2024 8:20 PM Narrative 10/18/2024 8:22 PM CDT [place] [address] EXAMINATION: CT head without contrast HISTORY: Confusion. Altered mental status. COMPARISON: None. TECHNIQUE: Axial CT images of the head without the use of intravenous contrast. A dose lowering technique was used for this procedure, which may include, but is not limited to, dose reduction technique, automated exposure control, the use of degenerative reconstruction, and ALARA/image gently techniques. FINDINGS: No evidence of acute intracranial hemorrhage, edema, or mass effect. There is no midline shift. No evidence of subdural or epidural hematoma. The ventricular system is normally sized. There is no hydrocephalus. There are choroid plexus and pineal gland calcifications. The orbital structures are partially imaged. The partially imaged paranasal sinuses appear clear. The mastoid air cells are clear. No visible acute osseous abnormalities. Procedure Note Gaurav Damon DO - 10/18/2024 [place] [address] EXAMINATION: CT head without contrast HISTORY: Confusion. Altered mental status. COMPARISON: None. TECHNIQUE: Axial CT images of the head without the use of intravenous contrast. A dose lowering technique was used for this procedure, which may include,but is not limited to, dose reduction technique, automated exposurecontrol, the use of degenerative reconstruction, and ALARA/image gentlytechniques. FINDINGS: No evidence of acute intracranial hemorrhage, edema, or mass effect.There is no midline shift. No evidence of subdural or epidural hematoma.The ventricular system is normally sized. There is no hydrocephalus.There are choroid plexus and pineal gland calcifications. The orbitalstructures are partially imaged. The partially imaged paranasal sinusesappear clear. The mastoid air cells are clear. No visible acute osseousabnormalities. IMPRESSION: No acute intracranial abnormalities identified. Referred By: Interpreted By: Gaurav Damon DO, 10/18/2024 8:20 PM us Michelle Medina MD CT Final Resu lt * CULTURE URINE (10/18/2024 4:30 PM CDT) SPEC DESCRIPTION URINE CLEAN CATCH 10/18/2024 4:30 PM CDT [facility] SPECIAL REQUESTS NO SPECIAL REQUEST 10/18/2024 4:30 PM CDT [facility] CULTURE RESULT POLYMICROBIAL GROWTH CONSISTENT WITH NORMAL GENITAL CAM. SUSCEPTIBILITIES NOT ROUTINELY PERFORMED. 10/19/2024 8:45 AM CDT [facility] URINE SPECIMEN OBTAINED BY CLEAN CATCH PROCEDURE / Unknown 10/18/2024 4:30 PM CDT 10/18/2024 8:10 PM CDT us Sherwin Manzo MD MICROBIOLOGY - GENERAL ORDERA BLES Final Result [facility] [address] [place] [address], [place] [phone] * RESPIRATORY PCR PANEL 2 (10/18/2024 12:33 PM CDT) Pathologist [facility] ADENOVIRUS PCR (RESP) NOT DETECTED NOT DETECTED 10/18/2024 1:50 PM CDT [facility] CORONAVIRUS 229E PCR (RESP) NOT DETECTED NOT DETECTED 10/18/2024 1:50 PM CDT [facility] CORONAVIRUS HKU1 PCR (RESP) NOT DETECTED NOT DETECTED 10/18/2024 1:50 PM CDT [facility] CORONAVIRUS NL63 PCR (RESP) NOT DETECTED NOT DETECTED 10/18/2024 1:50 PM CDT [facility] CORONAVIRUS OC43 PCR (RESP) NOT DETECTED NOT DETECTED 10/18/2024 1:50 PM CDT [facility] METAPNEUMOVIRUS PCR (RESP) NOT DETECTED NOT DETECTED 10/18/2024 1:50 PM CDT [facility] RHINOVIRUS/ENTEROV IRUS PCR (RESP) NOT DETECTED NOT DETECTED 10/18/2024 1:50 PM CDT [facility] INFLUENZA A PCR (RESP) NOT DETECTED NOT DETECTED 10/18/2024 1:50 PM CDT [facility] INFLUENZA B PCR (RESP) NOT DETECTED NOT DETECTED 10/18/2024 1:50 PM CDT [facility] PARAINFLUENZA 1 PCR (RESP) NOT DETECTED NOT DETECTED 10/18/2024 1:50 PM CDT [facility] PARAINFLUENZA 2 PCR (RESP) NOT DETECTED NOT DETECTED 10/18/2024 1:50 PM CDT [facility] PARAINFLUENZA 3 PCR (RESP) NOT DETECTED NOT DETECTED 10/18/2024 1:50 PM CDT [facility] PARAINFLUENZA 4 PCR (RESP) NOT DETECTED NOT DETECTED 10/18/2024 1:50 PM CDT [facility] RSV PCR (RESP) NOT DETECTED NOT DETECTED 10/18/2024 1:50 PM CDT [facility] B PARAPERTUSIS PCR (RESP) NOT DETECTED NOT DETECTED 10/18/2024 1:50 PM CDT [facility] BORDETELLA PERTUSSIS PCR (RESP) NOT DETECTED NOT DETECTED 10/18/2024 1:50 PM CDT [facility] CHLAMYDOPHILA PNEUMONIAE PCR (RESP) NOT DETECTED NOT DETECTED 10/18/2024 1:50 PM CDT [facility] MYCOPLASMA PNEUMONIAE PCR (RESP) NOT DETECTED NOT DETECTED 10/18/2024 1:50 PM CDT [facility] CORONAVIRUS SARS COV 2 PCR (RESP) NOT DETECTED NOT DETECTED 10/18/2024 1:50 PM CDT [facility] NASOPHARYNGEAL SWAB / Unknown 10/18/2024 12:33 PM CDT Sherwin Manzo MD MICROBIOLOGY - GENERAL ORDERA BLES Final Result Performing Organization Address City/[facility]/ZIP Co de Phone Number [facility] [address] [place] [address], [place] [phone] * TEST URINE (10/18/2024 11:00 AM CDT) URINE HCG TEST NEGATIVE 10/18/2024 11:11 AM CDT [facility] Comment: VERY DILUTE URINE SPECIMENS MAY NOT CONTAIN PEARL TECHNICIAN LEVELS OF HCG. IF IS STILL SUSPECTED, A SERUM HCG TEST IS RECOMMENDED. URINE SPECIMEN FROM URETHRA / Unknown 10/18/2024 11:00 AM CDT Sherwin Manzo MD URINE ORDERABLES Final Result Performing Organization Address [facility] Co de Phone Number [facility] [address] [place] [address], [place] [phone] * (ABNORMAL) URINALYSIS, AUTO, COMPLETE (10/18/2024 11:00 AM CDT) SPECIMEN TYPE URINE CLEAN CATCH 10/18/2024 11:01 AM CDT [facility] COLOR (U) DARK BROWN 10/18/2024 11:23 AM CDT [facility] TRANSPARENCY TURBID 10/18/2024 11:23 AM CDT [facility] SPECIFIC GRAVITY (U) 1.034(H) 1.001 - 1.030 10/18/2024 11:23 AM CDT [facility] U PH 5.5 5.0 - 9.0 10/18/2024 11:23 AM T [facility] LEUKOCYTES (U) 250(A) NEGATIVE 10/18/2024 11:23 AM T [facility] NITRITES NEGATIVE NEGATIVE 10/18/2024 11:23 AM T [facility] PROTEIN RANDOM (U) 100(H) <30 MG/DL 10/18/2024 11:23 AM T [facility] GLUCOSE (U) NORMAL NORMAL MG/DL 10/18/2024 11:23 AM T [facility] KETONES MG/DL (U) 60(A) NEGATIVE MG/DL 10/18/2024 11:23 AM T [facility] UROBILINOGEN NORMAL NORMAL MG/DL 10/18/2024 11:23 AM T [facility] BILIRUBIN (U) NEGATIVE NEGATIVE MG/DL 10/18/2024 11:23 AM T [facility] BLOOD (U) 3+(A) NEGATIVE 10/18/2024 11:23 AM T [facility] MUCUS MANY /LPF 10/18/2024 11:23 AM [facility] WBC/HPF >100(H) <6 /HPF 10/18/2024 11:23 AM T [facility] RBC/HPF >100(H) <6 /HPF 10/18/2024 11:23 AM T [facility] SQUAMOUS EPITHELIALS MODERATE /HPF 10/18/2024 11:23 AM [facility] URINE SPECIMEN OBTAINED BY CLEAN CATCH PROCEDURE / Unknown 10/18/2024 11:00 AM CDT us Sherwin Manzo MD URINE ORDERABLES Final Result [facility] [address] [place] [address], [place] [phone] * (ABNORMAL) DRUG SCREEN RAPID (10/18/2024 10:56 AM CDT) Only the most recent of2 resultswithin the time period is included. AMPHETAMINE (U) POSITIVE(A) NEGATIVE 10/19/19 11:27 AM CDT [facility] BARBITURATES SCREEN (U) POSITIVE(A) NEGATIVE 10/18/2024 11:27 AM CDT [facility] BENZODIAZEPINES SCREEN (U) NEGATIVE NEGATIVE 10/18/2024 11:27 AM CDT [facility] CANNABINOIDS SCREEN (U) NEGATIVE NEGATIVE 10/18/2024 11:27 AM CDT [facility] COCAINE METABOLITES (U) NEGATIVE NEGATIVE 10/18/2024 11:27 AM CDT [facility] METHADONE (U) NEGATIVE NEGATIVE 10/18/2024 11:27 AM CDT [facility] OPIATE SCREEN (U) NEGATIVE NEGATIVE 025 11:27 AM CDT [facility] PHENCYCLIDINE PCP (U) NEGATIVE NEGATIVE 10/18/2024 11:27 AM CDT [facility] Comment: NOTE: RESULTS OF THIS DRUG SCREEN SHOULD BE USED FOR MEDICAL PURPOSES ONLY AND NOT FOR LEGAL OR EMPLOYMENT PURPOSES. POSITIVE RESULTS ARE NOT CONFIRMED. MEDICATIONS CONTAINING EPHEDRINE MAY CAUSE FALSE POSITIVE AMPHETAMINE CALL [phone], LAB, TO REQUEST CONFIRMATION TESTING. IF CREATININE IS <40 mg/dL. RECOLLECTION IS SUGGESTED. AMPHETAMINE- 500 NG/ML BARBITURATE- 200 NG/ML BENZODIAZEPINES- 200 NG/ML THC- 50 NG/ML COCAINE- 150 NG/ML METHADONE- 300 NG/ML OPIATE- 300 MG/ML PCP- 25 NG/ML CREATININE (U) 337.0(H) 28 - 217 MG/DL 10/18/2024 11:27 AM CDT [facility] URINE SPECIMEN / Unknown 10/18/2024 10:56 AM CDT us Sherwin Manzo MD URINE ORDERABLES Final Result Performing Organization Address City/[facility]/ZIP Co de Phone Number [facility] [address] [place] [address], * (ABNORMAL) MAGNESIUM (10/18/2024 10:45 AM CDT) MAGNESIUM 2.5(H) 1.8 - 2.4 MG/DL 10/18/2024 12:06 PM CDT [facility] 10/18/2024 10:4 5 AM CDT Sherwin Manzo MD LABORATORY Final Result Performing Organization Address [facility] Co de Phone Number [facility] [address] [place] [address], * (ABNORMAL) SALICYLATE (10/18/2024 10:45 AM CDT) SALICYLATES 2.0(L) 2.8 - 20.0 MG/DL 10/18/2024 11:14 AM CDT [facility] Comment: THERAPEUTIC: 2.8-20.0 Toxic Level: >=30 10/18/2024 10:4 5 AM CDT us Sherwin Manzo MD LABORATORY Final Result Performing Organization Address City/[facility]/ZIP Co de Phone Number [facility] [address] [place] [address], * CK (CPK) (10/18/2024 10:45 AM CDT) CPK 88 21 - 215 U/L 10/18/2024 12:06 PM CDT [facility] 10/18/2024 10:4 5 AM CDT Sherwin Manzo MD LABORATORY Final Result [facility] [address] [place] [address], [place] [phone] * (ABNORMAL) COMPREHENSIVE METABOLIC PANEL (10/18/2024 10:17 AM CDT) GLUCOSE 83 70 - 99 MG/DL 10/18/2024 11:12 AM CDT [facility] BUN 18 7 - 18 MG/DL 10/18/2024 11:12 AM CDT [facility] CREATININE S/P/B 0.90 0.55 - 1.02 MG/DL 10/18/2024 11:12 AM CDT [facility] SODIUM S/P/B 140 136 - 145 MMOL/L 10/18/2024 11:12 AM CDT [facility] POTASSIUM S/P/B 4.0 3.5 - 5.1 MMOL/L 10/18/2024 11:12 AM CDT [facility] CHLORIDE S/P/B 111 97 - 115 MMOL/L 10/18/2024 11:12 AM CDT [facility] CO2 20.9(L) 21 - 32 MMOL/L 10/18/2024 11:12 AM CDT [facility] CALCIUM S/P/B 9.4 8.5 - 10.1 MG/DL 10/18/2024 11:12 AM CDT [facility] BILIRUBIN TOTAL S/P/B 0.6 0.2 - 1.2 MG/DL 10/18/2024 11:12 AM T [facility] Comment: THIS ASSAY IS NOT RECOMMENDED FOR PATIENTS UNDERGOING TREATMENT WITH ELTROMBOPAG DUE TO THE POTENTIAL FOR FALSELY ELEVATED RESULTS. TOTAL PROTEIN S/P/B 7.3 6.4 - 8.2 G/DL 10/18/2024 11:12 AM T [facility] ALBUMIN S/P/B 3.7 3.4 - 5.0 G/DL 10/18/2024 11:12 AM T [facility] AST 21 15 - 37 U/L 10/18/2024 11:12 AM [facility] ALT 23 14 - 55 U/L 10/18/2024 11:12 AM [facility] ALKALINE PHOSPHATASE S/P/B 99 50 - 136 U/L 10/18/2024 11:12 AM [facility] ANION GAP 8.1 2 - 10 MMOL/L 10/18/2024 11:12 AM [facility] BUN CREATININE RATIO 20.0 - 10/18/2024 11:12 AM [facility] A/G RATIO 1.0 1.0 - 2.0 RATIO 10/18/2024 11:12 AM [facility] GFR ESTIMATE 82(L) >90 ML/MIN/1.7 3 M2 10/18/2024 11:12 AM [facility] Comment: NOTE: eGFR is not calculated for patients <18 years of age or gender unknown. This is an estimated GFR calculation using the new CKD EPI creatinine equation without race and so does not require a correction factor for race. This estimated GFR should not be used for calculating drug doses. 10/18/2024 10:1 7 AM CDT us Sherwin Manzo MD LABORATORY Final Result [facility] [address] [place] [address], [place] [phone] * (ABNORMAL) CBC W/DIFF AUTOMATED (10/18/2024 10:17 AM CDT) Only the most recent of2 resultswithin the time period is included. Pathologist [facility] WBC 8.83 4.5 - 11.0 x10'3/uL 10/18/2024 10:34 AM CDT [facility] RBC 4.34 4.20 - 5.40 x10'6/uL 10/18/2024 10:34 AM CDT [facility] HGB 13.1 12.0 - 16.0 G/DL 10/18/2024 10:34 AM CDT [facility] HCT 41.2 38.0 - 48.0 % 10/18/2024 10:34 AM CDT [facility] MCV 94.9 81.0 - 99.0 FL 10/18/2024 10:34 AM CDT [facility] MCH 30.2 27.0 - 31.0 PG 10/18/2024 10:34 AM CDT [facility] MCHC 31.8(L) 32.0 - 36.0 G/DL 10/18/2024 10:34 AM CDT [facility] RDW 12.5 11.5 - 14.5 % 10/18/2024 10:34 AM CDT [facility] PLT 432(H) 130 - 400 x10'3/uL 10/18/2024 10:34 AM CDT [facility] MPV 10.1 9.3 - 12.2 FL 10/18/2024 10:34 AM CDT [facility] DIFFERENTIAL TYPE AUTOMATED DIFFERENTIAL 10/18/2024 10:34 AM CDT [facility] NEUTROPHILS % 68.8 % 10/18/2024 10:34 AM CDT [facility] LYMPHOCYTES % 23.9 % 10/18/2024 10:34 AM CDT [facility] MONOCYTES % 6.2 % 10/18/2024 10:34 AM CDT [facility] EOSINOPHILS 0.2 % 10/18/2024 10:34 AM CDT [facility] BASOPHILS 0.7 % 10/18/2024 10:34 AM CDT [facility] IMMATURE GRANS % 0.2 % 10/19/19 10:34 AM CDT [facility] ABS. NEUTROPHILS 6.07 1.80 - 7.70 x10'3/uL 10/18/2024 10:34 AM CDT [facility] ABS. LYMPHOCYTES 2.11 1.00 - 4.80 x10'3/uL 10/18/2024 10:34 AM CDT [facility] ABS. MONOCYTES 0.55 0.24 - 0.86 x10'3/uL 10/18/2024 10:34 AM T [facility] ABS. EOSINOPHILS 0.02(L) 0.04 - 0.36 x10'3/uL 10/18/2024 10:34 AM CDT [facility] ABS. BASOPHILS 0.06 0.01 - 0.08 x10'3/uL 10/18/2024 10:34 AM T [facility] ABS. IMMATURE GRANULOCYTES 0.02 0.00 - 0.49 x10'3/uL 10/18/2024 10:34 AM T [facility] 10/18/2024 10:1 7 AM CDT Sherwin Manzo MD LABORATORY Final Result Performing Organization Address City/[facility]/ZIP Co de Phone Number [facility] [address] [place] [id number], * THYROID STIM HORMONE, TSH (10/18/2024 10:17 AM CDT) TSH 1.380 0.358 - 3.74 uIU/ML 10/18/2024 11:12 AM CDT [facility] Comment: HIGH DOSES OF BIOTIN MAY INTERFERE WITH THIS TEST RESULT. CORRELATION TO CLINICAL HISTORY AND PRESENTATION RECOMMENDED. 10/18/2024 10:1 7 AM CDT Sherwin Manzo MD LABORATORY Final Result Performing Organization Address [facility] Co de Phone Number [facility] [address] [place] [id number], * ETHANOL (10/18/2024 10:17 AM CDT) Only the most recent of2 resultswithin the time period is included. ALCOHOL S/P/B <0.003 <0.003 G/DL 10/18/2024 11:12 AM CDT [facility] 10/18/2024 10:1 7 AM CDT Sherwin Manzo MD LABORATORY Final Result [facility] [address] [place] [phone], * (ABNORMAL) ACETAMINOPHEN (10/18/2024 10:17 AM CDT) ACETAMINOPHEN S/P/B <2.0(L) 10.0 - 30.0 MCG/ML 10/18/2024 11:12 AM CDT [facility] Comment: THERAPEUTIC: 10-30 TOXIC: >200 10/18/2024 10:1 7 AM CDT Sherwin Manzo MD LABORATORY Final Result [facility] [address] [place] [address], * ECG 12 lead (10/18/2024 10:08 AM CDT) Only the most recent of2 resultswithin the time period is included. 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: [id number] : 1980 Requested By: SHERWIN MANZO Order Number: [id number] Reading MD: Vinod Orozco Measurements Intervals [place] Rate: 67 P: 70 W[place]: 121 QRS: 79 QRSD: 90 T: 72 QT: 387 QTc: 410 Interpretive Statements SINUS RHYTHM WITH SINUS ARRHYTHMIA Compared to ECG 10/17/2024 15:31:23 No significant changes No ischemic changes Preliminary EKG Interpretation by Sherwin Manzo M.D Procedure Note Vinod Orozco MD - 10/18/[address] Test Date: 2024-10-18 Pat Name: JJ ROUSE Department: 41 Room: [id number] Gender: Female Back End Web Developer: [id number] : 1980 Requested By: SHERWIN MANZO Order Number: [id number] Reading MD: Vinod Orozco Measurements Intervals [place] Rate: 67 P: 70 [place]: 121 QRS: 79 QRSD: 90 T: 72 QT: 387 QTc: 410 Interpretive Statements SINUS RHYTHM WITH SINUS ARRHYTHMIA Compared to ECG 10/17/2024 15:31:23 No significant changes No ischemic changes Preliminary EKG Interpretation by Sherwin Manzo M.D us Sherwin Manzo MD ECG ORDERABLES Final Result [facility] ([facility] RAD * (ABNORMAL) BASIC METABOLIC PANEL (10/17/2024 4:12 PM CDT) SODIUM S/P/B 140 136 - 145 MMOL/L 10/17/2024 5:06 PM CDT [facility] POTASSIUM S/P/B 3.5 3.5 - 5.1 MMOL/L 10/17/2024 5:06 PM CDT [facility] CHLORIDE S/P/B 103 98 - 107 MMOL/L 10/17/2024 5:06 PM CDT [facility] CO2 27.0 21.0 - 32.0 MMOL/L 10/17/2024 5:06 PM CDT [facility] GLUCOSE 98 70 - 99 MG/DL 10/17/2024 5:06 PM CDT [facility] Comment: FASTING GLUCOSE 100 TO 125 MG/DL IS CONSISTENT WITH IMPAIRED FASTING GLUCOSE. FASTING GLUCOSE >125 MG/DL IS CONSISTENT WITH DIABETES. RANDOM GLUCOSE >200 MG/DL WITH HYPERGLYCEMIC SYMPTOMS IS CONSISTENT WITH DIABETES. PER ADA GUIDELINES BUN 18 6 - 24 MG/DL 10/17/2024 5:06 PM CDT [facility] CREATININE S/P/B 1.18(H) 0.55 - 1.02 MG/DL 10/17/2024 5:06 PM CDT [facility] CALCIUM S/P/B 10.0 8.4 - 10.5 MG/DL 10/17/2024 5:06 PM CDT [facility] ANION GAP 10.0 5.0 - 15.0 MMOL/L 10/17/2024 5:06 PM CDT [facility] OSMOLALITY (CALC) 292 MOSM/KG 025 5:06 PM CDT [facility] Comment:REFERENCE RANGE NOT ESTABLISHED GFR ESTIMATE 59(L) >89 ML/MIN/1. 73 M2 10/17/2024 5:06 PM CDT [facility] GFR NOTES GFR REFERENCE S: 10/17/2024 5:06 PM CDT [facility] Comment: THE ESTIMATED GFR IS [...] ml/min/1.73 m2 10/17/2024 4:12 PM CDT Familia Carter MD LABORATORY Final Result [facility] [place] [address], * CORONAVIRUS (COVID-19) ANTIGEN (10/17/2024 4:05 PM CDT) CORONAVIRUS ANTIGEN IA NEGATIVE NEGATIVE 10/17/2024 5:06 PM CDT [facility] Comment: NEGATIVE RESULTS DO NOT [...] SPECIMEN TYPE NASAL 10/17/2024 4:43 PM CDT [facility] NASAL NASAL STRUCTURE / Unknown 10/17/2024 4:05 PM CDT Familia Carter MD MICROBIOLOGY - GENERAL ORDERAB LES Final Result Performing Organization Address City/[facility]/ZIP Co de Phone Number [facility] [address] [place] [address], [place] [phone] * HEPATITIS PANEL,ACUTE (10/13/2023 3:24 AM CDT) HEPATITIS B SURFACE AG NON-REACT VARGHESE NON-REACT VARGHESE 10/13/2023 1:41 PM CDT [facility] Comment:HBsAg NOT DETECTED. HEP B CORE IGM NON-REACT VARGHESE NON-REACT VARGHESE 10/13/2023 1:41 PM CDT [facility] Comment: IgM ANTI HBc NOT DETECTED. DOES NOT EXCLUDE THE POSSIBILITY OF EXPOSURE TO OR INFECTION WITH HBV. NO RETEST REQUIRED. HIGH DOSES OF BIOTIN MAY INTERFERE WITH THIS TEST RESULT. CORRELATION TO CLINICAL HISTORY AND PRESENTATION RECOMMENDED. HAV IGM NON-REACT VARGHESE NON-REACT VARGHESE 10/13/2023 1:41 PM CDT [facility] Comment: IgM ANTI HAV NOT DETECTED. DOES NOT EXCLUDE THE POSSIBILITY OF EXPOSURE TO OR INFECTION WITH HAV. LEVELS OF IgM ANTI HAV MAY BE BELOW THE CUTOFF IN EARLY INFECTION. HEPATITIS C AB NON-REACT VARGHESE NON-REACT VARGHESE 10/13/2023 1:42 PM CDT [facility] Comment: ANTIBODIES TO HCV NOT DETECTED. DOES NOT EXCLUDE THE POSSIBILITY OF EXPOSURE TO HCV. 10/13/2023 3:24 AM CDT Tenisha Cheema MD LABORATORY Final Result [facility] [address] [place], [place] [address] [phone] [id number] from Last 3 Months or Most Recently Relevant to Health Maintenance Insurance [employer] Advance Directives Documents on File Type Date Recorded Patient Evaluation Assistant Expl anation Advance Directives and Living Will 05/10/2015 12:00 AM ADVANCED DIRECTIVES Advance Directives and Living Will 08/06/2013 12:00 AM ADVANCED DIRECTIVES Advance Directives and Living Will 12/28/2012 12:00 AM ADVANCED DIRECTIVES * Full Code (Latest Code Status on File) Date Activated Date Inactivated Comments 10/13/2023 5:53 AM 10/14/2023 10:50 AM 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
--- OUTSIDE RECORDS SUMMARY | 2024-12-13 03:53 | XMS_ITS | Clinical Summary ---
Author Organization [facility] Happy Inspector Address [address] [address] Care Team Providers Care Clinical Laboratory Science Professor Name Role Phone Mario Logan MD Primary Care Provider Source Comments [facility],non-owned Affiliates and Associated Physician Practices is amultiple site organization consisting of ambulatory clinics and hospital sitesin [place], [place], [place] and [place]. This disclosure is being madepursuant to the Care Everywhere program and may not contain all information available regarding this patient. Last updated 17.[facility] Allergies Active Allergy Reactions Criticality Noted Date [...] naloxone HCl (NARCAN) 4 MG/0.1ML nasal spray [place] 1 spray into the nose as needed [...] migh t be different from the original. [id number] Problem Noted Date Diagnosed Date Non-reactive NST [...] 02/28/2014 Overview (05/05/2019): Confirmed dose-270 mg from [facility]. Scanned Into media. 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 Gender Identity Not on file Sexual [...] 3:05 PM CDT Height 154.9 cm (5' 1) 05/25/2019 3:05 PM CDT Body Mass Index 35.9 05/25/2019 3:05 PM CDT Plan of Treatment Health Maintenance Due Date Last Done Comments LIPID TESTING 1982 MAMMOGRAM 1982 HPV VACCINE (1 - 3-dose SCDM series) 2009 PNEUMOCOCCAL VACCINE (2 of 2 - PCV) 02/23/2017 02/24/2016 HEPATITIS B VACCINE (3 of 3 - 19+ 3-dose series) 06/10/2019 01/27/2019, 12/09/2018 COVID-19 VACCINE (1 - 2023- season) 2024 INFLUENZA VACCINE (#1) 2024 9, 04/05/2014, 02/22/2013 DTAP/TDAP/TD VACCINES (7 - [...] P24 AG PANEL Routine 03/10/2019 1:24 PM STAFFING CONSULTANT Supervision of high risk in second trimester HEPATITIS C ANTIBODY Routine 11/11/2018 12:07 PM CDT Supervision of high risk , antepartum from Last 3 Months or Most Recently Relevant to Health Maintenance Results * HIV-1 HIV-2 ANTIBODY + HIV P24 AG PANEL (03/10/2019 1:24 PM STAFFING CONSULTANT) Pathologist [facility] HIV1/2 Ab + P24 Ag Non Reactive Non Reactive 03/10/2019 2:57 PM STAFFING CONSULTANT [facility] Blood BLOOD SPECIMEN / Unknown Venipuncture / Unknown 03/10/2019 1:24 PM STAFFING CONSULTANT 03/10/2019 1:49 PM STAFFING CONSULTANT Narrative [facility] - 03/10/2019 2:57 PM STAFFING CONSULTANT No Laboratory evidence of HIV infection. us Ivana Thomas MANAGER SWITCH-CYBER OPERATOR LAB - CHEMISTRY ORDERAB LES Final Result [facility] [address] [place] [address] * HEPATITIS C ANTIBODY (11/11/2018 12:07 PM CDT) HCV Antibody Screen Non Reactive Non Reactive 11/11/2018 1:55 PM CDT [facility] HCV S/C Ratio 0.19 0.00 - 0.79 11/11/2018 1:55 PM CDT [facility] Comment: Ddgajv-pa-wwbhlm ratio (S/CO) <0.80: Non Reactive Blood BLOOD SPECIMEN / Unknown Venipuncture / Unknown 11/11/2018 12:07 PM CDT 11/11/2018 12:56 PM CDT Narrative [facility] - 11/11/2018 1:55 PM CDT Non Reactive - Antibodies to Hepatitis C virus (HCV) were not detected, result does not exclude early acute HCV infection. Helen Zurita MANAGER SWITCH-CYBER OPERATOR LAB - CHEMISTRY ORDERA BLES Final Result Performing Organization Address City/State/[facility] Co de Phone Number [facility] [address] [place] [address] from Last 3 Months or Most Recently Relevant to Health Maintenance Insurance [facility] Advance Directives * Full Code (Latest Code [...] 11:00 AM 03/17/2019 7:31 PM Care Teams Clinical Laboratory Science Professor Relationship Specialty Start Date End Date Mario Logan MD [address] [place] [address] PCP - General 05/24/19
--- OUTSIDE RECORDS SUMMARY | 2024-12-13 03:53 | XMS_ITS | Clinical Summary ---
Author Organization [facility] Address [address], [address] [address] Phone Care Team Providers Care Emergency Room Physician Name Role Phone DelisaMay N LOFT RIGGER, HEEL COVER SPLITTER Primary Care Provider [phone] Allergies Active Allergy Reactions Criticality Noted Date Comments Codeine Anaphylaxis,Shortnes s of Breath,Swelling High 07/13/2015 Ketorolac Other (see Comments) 07/13/2015 Rapid Heart Rate Naproxen Other (see Comments),Nausea 07/13/2015 No problems with Ibuprofen Penicillins Swelling,Hives,Short ness of Breath High 03/27/2014 swelling/hive Medications buprenorphine hcl-naloxone hcl (SUBOXONE) 4-1 MG FILM 0 5 Active albuterol 108 (90 Base) MCG/ACT Aerosol Solution INHALE 2 PUFFS BY MOUTH 4 TIMES DAILY NEEDED WITH SPACER 5 Active dextromethorpha n-guaiFENesin (ROBITUSSIN-DM) 10-100 MG/5ML Liquid Take 10 mL by mouth every 4 hours as needed for Cough. 100 mL 5 Active escitalopram (LEXAPRO) 10 MG TabletIndicatio ns:Depression with anxiety Take 1 Tablet by mouth daily. 90 Tablet 5 Active azithromycin (ZITHROMAX) 250 MG Tablet TAKE 2 TABLETS BY MOUTH ON DAY 1, AND THEN TAKE 1 TABLET BY MOUTH ONCE A DAY ON DAY 2 THROUGH DAY 5 5 11/22/19 Discontinu ed(Med List Clean Up) predniSONE (DELTASONE) 20 MG Tablet Take 20 mg by mouth daily. 5 11/22/19 Discontinu ed(Med List Clean Up) Active Problems No known active problems Encounters Date Type Department Care Team Description 12/13/2024 1:00 PM CDT Hospital Encounter [facility] [address] [place] [address] Óscar Doss, LOFT RIGGER, HEEL COVER SPLITTER 12/05/2024 Results Follow-Up [facility] [address] [place] [address] Wendie Hercules, LOFT RIGGER, HEEL COVER SPLITTER US THYROID, VITAMIN D, 25 HYDROXY TOTAL, VITAMIN B12, Additional followed-up results: 5 12/02/2024 10:49 AM CDT - 12/02/2024 11:59 PM CDT Hospital Encounter [facility] [address] [place] [address] Wendie Hercules, LOFT RIGGER, HEEL COVER SPLITTER Discharge Disposition: Discharged to home or Selfcare 12/02/2024 Travel 11/21/2024 2:30 PM CDT Office Visit [facility] [address] [place] [address] Wendie Hercules, LOFT RIGGER, HEEL COVER SPLITTER Depression with anxiety (Primary Dx); At risk for sexually transmitted disease due to unprotected sex Discharge Disposition: Discharged to home or Selfcare 11/21/2024 Travel 11/17/2024 9:39 AM CDT - 11/17/2024 11:17 AM CDT Emergency [facility] [address] [place] [address] Hugh Palencia DO Viral syndrome Discharge Disposition: Discharged to home or Selfcare 11/17/2024 Telephone [facility] [address] [place] [address] Wendie Hercules APRN, HEEL COVER SPLITTER 11/17/2024 Nurse Triage [facility] [address] [place] [address] Wendie Hercules, LOFT RIGGER, HEEL COVER SPLITTER Breathing Problem 11/16/2024 2:15 PM CDT Office Visit [facility] [address] [place] [address] Óscar Doss, LOFT RIGGER, HEEL COVER SPLITTER Chest discomfort (Primary Dx) Discharge Disposition: Discharged to home or Selfcare 11/16/2024 Documentation Only [facility] [address] [place] [address] Wendie Hercules APRN, HEEL COVER SPLITTER 11/15/2024 10:03 PM CDT - 11/16/2024 12:06 AM CDT Emergency [facility] [address] [place] [address] Billy Cagle MD Chest pain, unspecified type Discharge Disposition: Discharged to home or Selfcare 11/15/2024 Travel 11/11/2024 Telephone [facility] [address] [place] [address] Wendie Hercules, LUIS FELIPE, HEEL COVER SPLITTER Need Order 10/21/2024 2:00 PM CDT Office Visit [facility] [address] [place] [address] Wendie Hercules, LOFT RIGGER, HEEL COVER SPLITTER Encounter for preventative adult health care exam with abnormal findings (Primary Dx); History of methadone use; Anxiety and depression; Nodule of left lobe of thyroid gland; Vaginal pain; Encounter for screening mammogram for breast cancer Discharge Disposition: Discharged to home or Selfcare 10/21/2024 Travel 10/21/2024 Telephone [facility] [address] [place] [address] Provider, None New Patient from Last 3 Months Immunizations Immunization Administration Dates Next Due Hepatitis A Vaccine 12/09/2018 Hepatitis B Vaccine 01/27/2019,12/09/2018 Influenza Vaccine, Quadrivalent, PF 12/09/2018 Influenza Vaccine,unspecifie d Formulation 02/22/2013 Influenza,Split Virus,Trivalent,Injectable,PF 04/05/2014 Pneumococcal Vaccine Adult - 23 Valent 02/24/2016 TDAP Vaccine 04/21/2019, 7,08/01/2015,2014 Td, Unspecified Formulation 02/24/2016, 8 Social History Tobacco Use Types Packs/Day Years Used Date Smoking Tobacco: Every Day Cigarettes Smokeless Tobacco: Never Tobacco Cessation:Ready to Q uit: Yes; Counseling Given: Yes Alcohol Use Standard Drinks/Week Comments Never 0 (1 standard drink = 0.6 oz pur e alcohol) PHQ-2 Answer Date Recorded Total Score - Questions 1-9 25 09/24 Sexually Active Control Partners Comments Yes Comments Unknown Sex and Gender Information Value Date Recorded Sex Assigned at Not on file Legal Sex Female 10:25 PM CDT Gender Identity Not on file Sexual Orientation Not on file Last Filed Vital Signs Vital Sign Reading Time Taken Comments Blood Pressure 120/60 11/21/2024 2:34 PM CDT Pulse 97 11/21/2024 2:34 PM CDT Temperature 36.1 C (97 F) 11/21/2024 2:34 PM CDT Respiratory Rate 20 11/21/2024 2:34 PM CDT Oxygen Saturation 98% 11/21/2024 2:34 PM CDT Inhaled Oxygen Concentration - - Weight 47.9 kg (105 lb 8 oz) 11/21/2024 2:34 PM CDT Height 154.9 cm (5' 1) 11/21/2024 2:34 PM CDT Body Mass Index 19.93 11/21/2024 2:34 PM CDT Plan of Treatment Upcoming Encounters Date Type Department Care Team (Latest Contact Info) Description 12/13/2024 10:00 AM CDT Appointment [facility] [place] [address] Óscar Doss, LOFT RIGGER, HEEL COVER SPLITTER [address] [address] Discharge Disposition: Discharged to home or Selfcare 12/13/2024 1:00 PM CDT Hospital Encounter [facility] [address] [place] [address] Óscar Doss, LOFT RIGGER, HEEL COVER SPLITTER [address] [place] [address] 01/03/2025 2:30 PM [employer]ER[employer]LLAR [employer]KER Office Visit [facility] [address] [facility] [address] Wendie Hercules, LOFT RIGGER, HEEL COVER SPLITTER [address] [address] Health Maintenance Due Date Last Done Comments Mammogram 1982 Pap Smear 2003 Human Papillomavirus (HPV) Immunization (1 - 3-dose SCDM series) 2009 Cervical Cancer Screening (CCS) 01/29/2012 HPV/Cotest 01/29/2012 Pneumococcal Immunization Combined (2 of 2 - PCV) 02/23/2017 02/24/2016 Hepatitis B Immunization (3 of 3 - 19+ 3-dose series) 06/10/2019 01/27/2019, 12/09/2018 Discussion re Starting/Frequency of Mammograms 2022 Influenza Immunization (#1) 10/24/202411/23, 04/05/2014, 02/22/2013 SARS-COV-2 Immunization ( season) 2024 Td Immunization Every 10 Years (Adults With 1 Tdap) 04/21/2029 04/21/2019, 12/07/2016, 02/24/2016, Additional history exists Respiratory Syncytial Virus (RSV) Immunization (Adult) (1 - 1-dose 75+ series) 2057 TdaP Immunization Discontinued 04/21/2019, , 08/01/2015, Additional history exists Hepatitis C Virus (HCV) Screening Completed 10/13/2023, 11/11/2018, 08/31/2015, Additional history exists Meningococcal Immunization (ACWY) Aged Out No longer eligible based on patient's age to complete this topic Rotavirus Immunization Aged Out No lo nger eligible based on patient's age to complete this topic Procedures Procedure Name Priority Date/Time Associated Diagnosis Comments US THYROID Routine 12/02/2024 11:09 AM CDT Nodule of left lobe of thyroid gland CBC WITH AUTO DIFFERENTIAL Routine 12/02/2024 10:47 AM CDT Encounter for preventative adult health care exam with abnormal findings THYROID SCREEN WITH REFLEX Routine 12/02/2024 10:47 AM CDT Encounter for preventative adult health care exam with abnormal findings COMPLETE BLOOD COUNT (CBC) WITH DIFF Routine 12/02/2024 10:47 AM CDT Encounter for preventative adult health care exam with abnormal findings CMP (COMPREHENSIVE METABOLIC PANEL) Routine 12/02/2024 10:47 AM CDT Encounter for preventative adult health care exam with abnormal findings LIPID PANEL Routine 12/02/2024 10:47 AM CDT Encounter for preventative adult health care exam with abnormal findings THYROXINE (T4) FREE Routine 12/02/2024 1 0:47 AM CDT Encounter for preventative adult health care exam with abnormal findings THYROID SCREEN WITH REFLEX Routine 12/02/2024 10:47 AM CDT Encounter for preventative adult health care exam with abnormal findings VITAMIN B12 Routine 12/02/2024 10:47 AM CDT Encounter for preventative adult health care exam with abnormal findings VITAMIN D, 25 HYDROXY TOTAL Routine 12/02/2024 10:47 AM CDT Encounter for preventative adult health care exam with abnormal findings RSV,SARS-COV-2,INFLUE NZA A&B BY PCR STAT 11/17/2024 9:55 AM CDT EKG 12 LEAD STAT 11/17/2024 9:47 AM CDT GOLD TOP TUBE STAT 11/17/2024 9:45 AM CDT BLUE TOP TUBE STAT 11/17/2024 9:45 AM CDT CBC WITH AUTO DIFFERENTIAL STAT 11/17/2024 9:45 AM CDT EXTRA TUBES STAT 11/17/2024 9:45 AM CDT TROPONIN I, HIGH SENSITIVITY (HSTRP) STAT 11/17/2024 9:45 AM CDT COMPLETE BLOOD COUNT (CBC) WITH DIFF STAT 11/17/2024 9:45 AM CDT CMP (COMPREHENSIVE METABOLIC PANEL) STAT 11/17/2024 9:45 AM CDT EKG SCAN 11/17/2024 12:00 AM CDT XR CHEST SINGLE VIEW PORTABLE STAT 11/15/2024 10:45 PM CDT CBC WITH AUTO DIFFERENTIAL STAT 11/15/2024 10:26 PM CDT LIPASE STAT 11/15/2024 10:26 PM CDT MAGNESIUM (MG) STAT 11/15/2024 10:26 PM CDT TROPONIN I, HIGH SENSITIVITY (HSTRP) STAT 11/15/2024 10:26 PM CDT CMP (COMPREHENSIVE METABOLIC PANEL) STAT 11/15/2024 10:26 PM CDT COMPLETE BLOOD COUNT (CBC) WITH DIFF STAT 11/15/2024 10:26 PM CDT HUMAN CHORIONIC GONADOTROPIN SCRN SERUM STAT 11/15/2024 10:26 PM CDT EKG 12 LEAD STAT 11/15/2024 10:10 PM CDT EKG SCAN 11/15/2024 12:00 AM CDT from Last 3 Months Results * US THYROID (12/02/2024 11:09 AM CDT) Anatomical Region Laterality Modality BODY N/A Ultrasound 12/02/2024 11:0 9 AM CDT Impressions 12/03/2024 12:48 AM CDT IMPRESSION: 1.7 cm TR 3 left thyroid nodule. Refer to the ACR TI-RADS guidelines below for further management. ACR TI-RADS guidelines: TR 1 (0 points) and TR 2 (2 points) = no FNA or follow-up TR 3 (3 points) = FNA if greater than or equal to 2.5 cm, follow-up ultrasound if 1.5-2.4 cm in 1, 3 and 5 years TR 4 (4-6 points) = FNA of greater than or equal to 1.5 cm, follow-up ultrasound if 1.0-1.4 cm in 1, 2, 3 and 5 years TR 5 (7+ points) = FNA if greater than or equal to 1 cm, follow-up ultrasound if 0.5-0.9 cm every 1 year for 5 years. ACR TI-RADS criteria for significant enlargement is defined as a 20% increase in at least 2 nodule dimensions and a minimal increase of 2 mm, or a 50% or greater increase in volume according to the 2017 White Paper. Narrative 12/03/2024 12:48 AM CDT DICTATING PHYSICIAN: Mickey Mccarty D.O. - [facility] US THYROID, 12/02/2024 11:09 AM CLINICAL INFORMATION: 44 years, Female. Nontoxic single thyroid nodule TECHNIQUE: Ultrasound of the thyroid gland was performed. COMPARISON: None. FINDINGS: MEASUREMENTS: Right lobe: 3.7 x 0.9 x 0.9 cm (CC x AP x WIDTH) Left lobe: 3.6 x 1.3 x 1.5 cm (CC x AP x WIDTH) Isthmus: 0.2 cm in thickness Vascularity: The thyroid gland has normal vascularity. Echogenicity: The thyroid gland is homogenous in echogenicity. Nodules (Per ACR guidelines, up to four nodules evaluated per lobe): RIGHT: No discrete nodule is noted in the right thyroid lobe. LEFT: Nodule number 1 measures 1.7 x 1.2 x 1.1 cm, is located in the mid to inferior pole and has the following features: Composition: Solid or almost completely solid (2) with internal vascularity. Echogenicity: Hyperechoic (1). [id number]: no (0). Margins: Smooth (0). Echogenic foci: None (0). ACR TI-RADS Classification: TR 3 (3 points) Procedure Note Mickey Mccarty, - 12/03/2024 DICTATING PHYSICIAN: Mickey Mccarty D.O. - [facility] US THYROID, 12/02/2024 11:09 AM CLINICAL INFORMATION: 44 years, Female. Nontoxic single thyroid nodule TECHNIQUE: Ultrasound of the thyroid gland was performed. COMPARISON: None. FINDINGS: MEASUREMENTS: Right lobe: 3.7 x 0.9 x 0.9 cm (CC x AP x WIDTH) Left lobe: 3.6 x 1.3 x 1.5 cm (CC x AP x WIDTH) Isthmus: 0.2 cm in thickness Vascularity: The thyroid gland has normal vascularity. Echogenicity: The thyroid gland is homogenous in echogenicity. Nodules (Per ACR guidelines, up to four nodules evaluated per lobe): RIGHT: No discrete nodule is noted in the right thyroid lobe. LEFT: Nodule number 1 measures 1.7 x 1.2 x 1.1 cm, is located in the mid toinferior pole and has the following features: Composition: Solid or almost completely solid (2) with internalvascularity. Echogenicity: Hyperechoic (1). [id number]-[id number]: no (0). Margins: Smooth (0). Echogenic foci: None (0). ACR TI-RADS Classification: TR 3 (3 points) IMPRESSION: 1.7 cm TR 3 left thyroid nodule. Refer to the ACR TI-RADS guidelines below for further management. ACR TI-RADS guidelines: TR 1 (0 points) and TR 2 (2 points) = no FNA or follow-up TR 3 (3 points) = FNA if greater than or equal to 2.5 cm, follow-upultrasound if 1.5-2.4 cm in 1, 3 and 5 years TR 4 (4-6 points) = FNA of greater than or equal to 1.5 cm, follow-upultrasound if 1.0-1.4 cm in 1, 2, 3 and 5 years TR 5 (7+ points) = FNA if greater than or equal to 1 cm, follow-upultrasound if 0.5-0.9 cm every 1 year for 5 years. ACR TI-RADS criteria for significant enlargement is defined as a 20%increase in at least 2 nodule dimensions and a minimal increase of 2 mm,or a 50% or greater increase in volume according to the 2017 WhitePaper. us Wendie N Delisa BRISCOE, ELVIA IMG US ORDERABLES Final R esult * VITAMIN D, 25 HYDROXY TOTAL (12/02/2024 10:47 AM CDT) VITAMIN D, 25 HYDROX 27.9 ng/mL 12/02/2024 12:19 PM CDT [facility] Blood Venipuncture / Unknown 12/02/2024 10:47 AM CDT 12/02/2024 11:12 AM CDT Narrative [facility] - 12/02/2024 12:19 PM CDT Published reference ranges for Vitamin D vary depending on time and place and method of testing, and on patient's age, sex, ethnicity and levels of other measured analytes such as parathormone, calcium and phosphorus. The result should be evaluated in conjunction with clinical findings and suspicions. [employer] and Endocrine Clinical Practice Guidelines: Status Vitamin D levels (ng/mL) Deficient <=20 At risk of inadequacy 21-29 Sufficient 30-100 Centers of Disease Control and Prevention Guidelines: Status Vitamin D levels (ng/mL) Deficient <13 At risk of inadequacy 13-19 Sufficient 20-50 Possibly harmful >50 References: [employer], 2010 Dietary reference intakes for calcium and vitamin D. [place]: The National Academies Press. Betsy M, Ariadne N, Glen ZAMUDIO, et al., Evaluation, treatment, and prevention of Vitamin D deficiency: an Endocrinology Clinical Practice Guideline. JCEM 2011 96: 7 4699-1100. Kenan A, Desmond C, Tyra D, et al., Vitamin D Status: [place], 3668-1071, [facility] data brief, no. 59, MD [place]: [facility] Statistics. 2011. us May N Delisa LOFT RIGGER, HEEL COVER SPLITTER CHEMISTRY ORDERABLES Adelaide l Result Performing Organization Address City/[facility]/ZIP Co de Phone Number [facility] [address] [place] [address] * THYROID SCREEN WITH REFLEX (12/02/2024 10:47 AM CDT) TSH 1.382 0.300 - 5.000 mIU/L 12/02/2024 12:07 PM CDT [facility] Blood Venipuncture / Unknown 12/02/2024 10:47 AM CDT 12/02/2024 11:12 AM CDT May N Oehl LOFT RIGGER, HEEL COVER SPLITTER CHEMISTRY ORDERABLES Adelaide l Result Performing Organization Address City/[facility] Co de Phone Number [facility] [address] [place] [address] * CBC WITH AUTO DIFFERENTIAL (12/02/2024 10:47 AM CDT) Only the most recent of3 resultswithin the time period is included. WBC 6.33 4.00 - 12.00 10(3)/mcL 12/02/2024 11:24 AM CDT [facility] RBC 4.13 3.80 - 5.30 10(6)/mcL 12/02/2024 11:24 AM CDT [facility] HEMOGLOBIN (HGB) 12.7 12.0 - 15.8 g/dL 12/02/2024 11:24 AM CDT [facility] HEMATOCRIT (HCT) 38.8 36.0 - 47.0 % 12/02/2024 11:24 AM CDT [facility] MCV 93.9 82.0 - 96.0 fL 12/02/2024 11:24 AM CDT [facility] MCH 30.8 26.0 - 34.0 pg 12/02/2024 11:24 AM CDT [facility] MCHC 32.7 31.0 - 36.0 g/dL 12/02/2024 11:24 AM CDT [facility] PLATELET COUNT 285 140 - 440 10(3)/mcL 12/02/2024 11:24 AM CDT [facility] RDW 12.3 11.8 - 15.5 % 12/02/2024 11:24 AM CDT [facility] MPV 9.8 9.7 - 12.4 fL 12/02/2024 11:24 AM CDT [facility] NEUTROPHILS 58.9 47.0 - 73.0 % 12/02/2024 11:24 AM CDT [facility] LYMPHOCYTES 31.0 18.0 - 42.0 % 12/02/2024 11:24 AM CDT [facility] MONOCYTES 7.9 4.0 - 12.0 % 12/02/2024 11:24 AM CDT [facility] EOSINOPHILS 1.1 0.0 - 5.0 % 12/02/2024 11:24 AM CDT [facility] BASOPHILS 0.8 0.0 - 1.0 % 12/02/2024 11:24 AM CDT [facility] IMMATURE GRANULOCYTE 0.3 0.0 - 0.4 % 12/02/2024 11:24 AM CDT [facility] ABSOLUTE NEUTROPHILS 3.73 1.60 - 7.70 10(3)/mcL 12/02/2024 11:24 AM CDT [facility] ABSOLUTE LYMPHOCYTES 1.96 1.30 - 3.20 10(3)/mcL 12/02/2024 11:24 AM CDT [facility] ABSOLUTE MONOCYTES 0.50 0.20 - 1.00 10(3)/mcL 12/02/2024 11:24 AM CDT [facility] ABSOLUTE EOSINOPHIL 0.07 0.00 - 0.40 10(3)/mcL 12/02/2024 11:24 AM CDT [facility] ABSOLUTE BASOPHILS 0.05 0.00 - 0.10 10(3)/mcL 12/02/2024 11:24 AM CDT [facility] ABSOLUTE IMMATURE GRANULOCYTE 0.02 0.00 - 0.03 10 (3) mcL. 12/02/2024 11:24 AM CDT [facility] NRBC PER 100 WBC 0 12/03/19 11:24 AM CDT [facility] Blood Venipuncture / Unknown 12/02/2024 10:47 AM CDT 12/02/2024 11:14 AM CDT May N Delisa WILSONN, HEEL COVER SPLITTER HEMATOLOGY ORDERABLES Fin al Result Performing Organization Address City/[facility]/ZIP Co de Phone Number [facility] [address] [place] [address] * VITAMIN B12 (12/02/2024 10:47 AM CDT) Pathologist [facility] VITAMIN B12 418 213 - 816 pg/mL 12/02/2024 12:19 PM CDT [facility] Blood Venipuncture / Unknown 12/02/2024 10:47 AM CDT 12/02/2024 11:12 AM CDT May N Delisa WILSONN, HEEL COVER SPLITTER CHEMISTRY ORDERABLES Adelaide l Result [facility] [address] [place] [address] * THYROXINE (T4) FREE (12/02/2024 10:47 AM CDT) T4 FREE 0.8 0.7 - 1.9 ng/dL 12/02/2024 12:08 PM CDT [facility] Blood Venipuncture / Unknown 12/02/2024 10:47 AM CDT 12/02/2024 11:12 AM CDT us Wendie N Vibhahl LOFT RIGGER, HEEL COVER SPLITTER CHEMISTRY ORDERABLES Adelaide l Result [facility] [address] [place] [address] * LIPID PANEL (12/02/2024 10:47 AM CDT) CHOLESTEROL 175 <200 mg/dL 12/02/2024 11:54 AM CDT [facility] TRIGLYCERIDES 127 <150 mg/dL 12/02/2024 11:54 AM CDT [facility] HDL CHOLESTEROL 55 >40 mg/dL 11:54 AM CDT [facility] LDL 95 <130 mg/dL 12/02/2024 11:54 AM CDT [facility] VLDL 25 10 - 50 mg/dL 12/02/2024 11:54 AM CDT [facility] CHOL/HDL RATIO 3.2 0.0 - 4.4 12/02/2024 11:54 AM CDT [facility] NON-HDL CHOLESTEROL 120 <130 mg/dL 12/02/2024 11:54 AM CDT [facility] IS THE PATIENT REQUIRED TO BE FASTING? Yes 12/02/2024 11:54 AM CDT [facility] HAS THE PATIENT BEEN FASTING? Yes 12/02/2024 11:54 AM CDT [facility] Blood Venipuncture / Unknown 12/02/2024 10:47 AM CDT 12/02/2024 11:12 AM CDT Narrative [facility] - 12/02/2024 11:54 AM CDT NCEP GUIDELINES FOR LIPID INTERPRETATION TOTAL CHOLESTEROL DESIRABLE <200 BORDERLINE 200-239 HIGH >=240 LDL CHOLESTEROL OPTIMAL <100 NEAR OPTIMAL 100-129 BORDERLINE 130-159 HIGH 160-189 VERY HIGH >=190 Calculated using the Friedewald equation. HDL CHOLESTEROL LOW <40 *HIGH >=60 TRIGLYCERIDES NORMAL <150 BORDERLINE 150-199 HIGH 200-499 VERY HIGH >=500 VLDL calculated using Triglycerides/5. *HDL CHOLESTEROL >=60 mg/dL counts as a negative risk factor; its presence removes one risk factor from the total. Based on guidelines from the National Cholesterol Education Program, desirable levels for non HDL cholesterol are 30 mg/dL above target levels for LDL cholesterol. may N Delisa LOFT RIGGER, HEEL COVER SPLITTER CHEMISTRY ORDERABLES Adelaide l Result [facility] [address] [place] [address] * CMP (COMPREHENSIVE METABOLIC PANEL) (12/02/2024 10:47 AM CDT) Only the most recent of3 resultswithin the time period is included. SODIUM 142 136 - 145 mmol/L 12/02/2024 11:54 AM CDT [facility] POTASSIUM 4.0 3.5 - 5.1 mmol/L 12/02/2024 11:54 AM CDT [facility] CHLORIDE 107 98 - 107 mmol/L 12/02/2024 11:54 AM CDT [facility] CO2, VENOUS 28 22 - 30 mmol/L 12/02/2024 11:54 AM CDT [facility] ANION GAP 11.0 <18.0 mmol/L 12/02/2024 11:54 AM CDT [facility] GLUCOSE 93 70 - 99 mg/dL 12/02/2024 11:54 AM CDT [facility] BUN 15 5 - 18 mg/dL 12/02/2024 11:54 AM CDT [facility] CREATININE, BLOOD 0.77 0.60 - 1.00 mg/dL 12/02/2024 11:54 AM CDT [facility] BUN/CREATININE RATIO 19 12 - 20 ratio 12/02/2024 11:54 AM CDT [facility] TOTAL PROTEIN 6.7 6.0 - 8.0 g/dL 12/02/2024 11:54 AM [facility] ALBUMIN 4.1 3.5 - 5.0 g/dL 12/02/2024 11:54 AM [facility] A/G RATIO 1.6 1.0 - 2.2 12/02/2024 11:54 AM [facility] CALCIUM 9.3 8.7 - 10.5 mg/dL 12/02/2024 11:54 AM [facility] T BILI 0.3 0.2 - 1.2 mg/dL 12/02/2024 11:54 AM [facility] SGOT (AST) 15 <43 U/L 12/02/2024 11:54 AM [facility] SGPT (ALT) 29 <56 U/L 12/02/2024 11:54 AM [facility] ALKALINE PHOSPHATASE 80 40 - 150 U/L 12/02/2024 11:54 AM [facility] IS THE PATIENT REQUIRED TO BE FASTING? No 12/02/2024 11:54 AM [facility] GFR, ESTIMATED >60 >=60 12/02/2024 11:54 AM [facility] Comment: Creatinine Clearance is the preferred criteria for selecting drug dose adjustments in renally impaired patients. The GFR is provided as additional pertinent clinical information. GFR is reported in mL/min/1.73 sq m. Calculation based on the 2020 Chronic Kidney Disease Epidemiology Collaboration (CKD-EPI) equation refit without adjustment for race. GFR, EST. >60 >=60 11:54 AM [facility] Comment: Creatinine Clearance is the preferred criteria for selecting drug dose adjustments in renally impaired patients. The GFR is provided as additional pertinent clinical information. GFR is reported in mL/min/1.73 sq m. Calculation based on the 2009 Chronic Kidney Disease Epidemiology Collaboration (CKD-EPI). GFR, EST. NONAFRICAN >60 >=60 12/02/2024 11:54 AM [facility] Comment: Creatinine Clearance is the preferred criteria for selecting drug dose adjustments in renally impaired patients. The GFR is provided as additional pertinent clinical information. GFR is reported in mL/min/1.73 sq m. Calculation based on the 2009 Chronic Kidney Disease Epidemiology Collaboration (CKD-EPI). Blood Venipuncture / Unknown 12/02/2024 10:47 AM CDT 12/02/2024 11:12 AM CDT May N Oehl LOFT RIGGER, HEEL COVER SPLITTER CHEMISTRY ORDERABLES Adelaide l Result Performing Organization Address City/[facility]/ZIP Co de Phone Number [facility] [address] [place] [address] * RSV,SARS-COV-2,INFLUENZA A&B BY PCR (11/17/2024 9:55 AM CDT) FLU A Negative Negative, Error 11/17/2024 11:19 AM CDT [facility] FLU B Negative Negative 11/17/2024 11:19 AM CDT [facility] RESP SYNC VIRUS Negative Negative 11:19 AM CDT [facility] SARSCOV2 NOT DETECTED (Reference Range for this test is Not Detected) 11/17/2024 11:19 AM CDT [facility] Comment:This test was perfor med by a Reverse And Rescue Fire Fighter Crash Fire PCR Method. Nasal NASOPHARYNGEAL STRUCTURE / Unknown Non-Phlebotomy Collection / Unknown 11/17/2024 9:55 AM CDT 11/17/2024 10:36 AM CDT us Hugh Palencia DO MICROBIOLOGY - GENERAL ORDERABLES Final Result Performing Organization Address [facility] Co de Phone Number [facility] [address] [place] [address] * EKG 12 LEAD (11/17/2024 9:47 AM CDT) Only the most recent of2 resultswithin the time period is included. Ventricular Rate 61 BPM EXTERNAL EKG Atrial Rate 61 BPM EXTERNAL EKG P-R Interval 114 ms EXTERNAL EKG QRS Duration 90 ms EXTERNAL EKG Q-T Duration 398 ms EXTERNAL EKG QTC CALCULATION 400 ms EXTERNAL EKG P Cranberry 63 degrees EXTERNAL EKG R Cranberry 67 degrees EXTERNAL EKG T Cranberry 56 degrees EXTERNAL EKG 11/17/2024 9:47 AM CDT Impressions EXTERNAL EKG - 11/19/2024 8:18 PM CDT Normal sinus rhythm Nonspecific ST abnormality Abnormal ECG When compared with ECG of 15-NOV-2024 22:10, No significant change was found Confirmed by ALEX BAUTISTA ([id number]) on 11/19/2024 8:18:01 PM Narrative Procedure Note Alex Bautista MD - 11/19/2024 IMPRESSION: Normal sinus rhythm Nonspecific ST abnormality Abnormal ECG When compared with ECG of 15-NOV-2024 22:10, No significant change was found Confirmed by ALEX BAUTISTA ([id number]) on 11/19/2024 8:18:01 PM us Hugh Palencia DO IMG ECG ORDERABLES Adelaide l Result EXTERNAL EKG * TROPONIN I, HIGH SENSITIVITY (HSTRP) (11/17/2024 9:45 AM CDT) Only the most recent of2 resultswithin the time period is included. TROPONIN I, HIGH SENSITIVITY- OLIVA <2.7 <=14.0 ng/L 11/17/2024 11:04 AM CDT [facility] Comment: High-sensitivity troponin I results are reported in ng/L making the result appear to be 1,000 times higher than the contemporary troponin I value which is reported in ng/ml. Results from [facility]. Blood Venipuncture / Unknown 11/17/2024 9:45 AM CDT 11/17/2024 10:37 AM CDT us Hugh Palencia DO CHEMISTRY ORDERABLES Fi nal Result [facility] [address] [place] [address] * Gold Top Tube (11/17/2024 9:45 AM CDT) Blood No Phlebotomy Charged / Unknown 11/17/2024 9:45 AM CDT 11/17/2024 10:38 AM CDT us Hugh Palencia DO CHEMISTRY ORDERABLES Fi nal Result Performing Organization Address [facility] de Phone Number [facility] [address] [place] [address] * Blue Top Tube (11/17/2024 9:45 AM CDT) Blood No Phlebotomy Charged / Unknown 11/17/2024 9:45 AM CDT 11/17/2024 10:38 AM CDT Hugh Palencia DO HEMATOLOGY ORDERABLES F inal Result Performing Organization Address [facility] de Phone Number [facility] [address] [place] [address] * EKG SCAN (11/17/2024 12:00 AM CDT) Only the most recent of2 resultswithin the time period is included. 11/17/2024 us Provider Scan IMG ECG ORDERABLES Final Result Performing Organization Address [facility] de Phone Number RESULTING AGENCY * XR CHEST SINGLE VIEW PORTABLE (11/15/2024 10:45 PM CDT) Anatomical Region Laterality Modality Chest N/A Computed Radiogr aphy 11/15/2024 10:4 5 PM CDT Impressions 11/16/2024 5:44 AM CDT IMPRESSION: 1. No acute abnormality identified. Narrative 11/16/2024 5:44 AM CDT DICTATING PHYSICIAN: Odin Gamaliel EXAM: XR CHEST SINGLE VIEW PORTABLE DATE: 11/15/2024 10:45 PM COMPARISON: None. CLINICAL HISTORY: Ordering clinician listed reason for examination Chest Pain REFERRING PROVIDER: BILLY CAGLE FINDINGS: Chest single view. Good inspiration. Normal heart size. No airspace consolidation, pneumothorax, or pleural effusion. No comparison. Procedure Note Odin Alston MD - 11/16/2024 DICTATING PHYSICIAN: Odin Alston EXAM: XR CHEST SINGLE VIEW PORTABLE DATE: 11/15/2024 10:45 PM COMPARISON: None. CLINICAL HISTORY: Ordering clinician listed reason for examination ChestPain REFERRING PROVIDER: BILLY CAGLE FINDINGS: Chest single view. Good inspiration. Normal heart size. Noairspace consolidation, pneumothorax, or pleural effusion. Nocomparison. IMPRESSION: 1. No acute abnormality identified. Billy Cagle MD IMG DIAGNOSTIC ORDERABLES Final Result * Human Chorionic Gonadotropin Scrn Serum [id number] (11/15/2024 10:26 PM CDT) PREG-HCG Negative Negative 11/15/2024 11:28 PM CDT [facility] Blood Venipuncture / Unknown 11/15/2024 10:26 PM CDT 11/15/2024 11:06 PM CDT Billy Cagle MD CHEMISTRY ORDERABLES Adelaide l Result [facility] [address] [place] [address] * Magnesium (11/15/2024 10:26 PM CDT) MAGNESIUM 1.9 1.6 - 2.6 mg/dL 11/15/2024 11:28 PM CDT [facility] Comment: Specimen is hemolyzed. In vitro hemolysis could affect results. Clinical correlation advised. Blood Venipuncture / Unknown 11/15/2024 10:26 PM CDT 11/15/2024 11:06 PM CDT us Billy Cagle MD CHEMISTRY ORDERABLES Adelaide l Result [facility] [address] [place] [address] * Lipase (11/15/2024 10:26 PM CDT) LIPASE 19 8 - 78 U/L 11/15/2024 11:28 PM CDT [facility] Blood Venipuncture / Unknown 11/15/2024 10:26 PM CDT 11/15/2024 11:06 PM CDT Billy Cagle MD CHEMISTRY ORDERABLES Adelaide l Result Performing Organization Address City/[facility]/ZIP Co de Phone Number [facility] [address] [place] [address] from Last 3 Months Insurance MEDICAID [place] Care Teams Emergency Room Physician Relationship Specialty Start Date End Date Delisa, May N, LOFT RIGGER, HEEL COVER SPLITTER [address] [address] PCP - General Advanced Practice Nurse 10/21/24
--- OUTSIDE RECORDS SUMMARY | 2024-12-13 13:00 | XMS_ITS | Encounter Summary ---
Author Organization [facility] Address [address] [place] [address] Phone Care Team Providers Care Globe Tester Name Role Phone Wendie Herculse LUIS FELIPE, ELVIA Primary Care Provider [phone] Reason for Visit * Radiology Services (Routine) - Authorized Specialty Diagnoses / Procedures Referred By Contjose t Referred To Contact Radiology Diagnoses Chest discomfort Procedures CT CHEST W CONTRAST Óscar Doss APRN, CORPORATE PHYSICAL SECURITY SUPERVISOR #[address] [address] Phone: tel: fax: Referral ID Status Reason Start Date Expiration Date V isits Requested Visits Authorized [id number] Authorized 11/16/2024 1 1 Encounter Details Date Type Department Care Team (Late st Contact Info) Description 12/13/2024 1:00 PM CDT Hospital Encounter [facility] [address] [place] [address] Óscar Doss APRN, CORPORATE PHYSICAL SECURITY SUPERVISOR #[address] [address] Social History Tobacco Use Types Packs/Day Years Used Date Smoking Tobacco: Every Day Cigarettes Smokeless Tobacco: Never Alcohol Use Standard Drinks/Week Comments Never 0 (1 standard drink = 0.6 oz pur e alcohol) PHQ-2 Answer Date Recorded Total Score - Questions 1-9 25 08/2 10/2024 Sexually Active Control Partners Comments Yes Comments Unknown Sex and Gender Information Value Date Recorded Sex Assigned at Not on file Legal Sex Female 10:25 PM CDT Gender Identity Not on file Sexual Orientation Not on file documented as of this encounter Plan of Treatment Upcoming Encounters Date Type Department Care Team (Late st Contact Info) Description 12/13/2024 10:00 AM CDT Appointment [facility] Cardiology Stress [address] [place] [address] Óscar Doss, INGREDIENT SCALER HELPER, CORPORATE PHYSICAL SECURITY SUPERVISOR #[address] [address] Discharge Disposition: Discharged to home or Selfcare 01/03/2025 2:30 PM RECORDS ADMINISTRATOR Office Visit [facility] - [facility] [address] [place] [address] Wendie Hercules, INGREDIENT SCALER HELPER, CORPORATE PHYSICAL SECURITY SUPERVISOR [address] [address] Scheduled Orders Name Type Priority Associated Diagnoses Orde r Schedule CT CHEST W CONTRAST Imaging Routine Chest discomfort Expected: 11/16/2024, Expires: 11/16/2025 documented as of this encounter Visit Diagnoses Not on filedocumented in this encounter Additional Health Concerns Assessment Noted Time PHQ-9 Depression Total Score: 25 025 2:05 PM CDT documented as of this encounter Care Teams Globe Tester Relationship Specialty Start Date End Date Wendie Hercules, INGREDIENT SCALER HELPER, CORPORATE PHYSICAL SECURITY SUPERVISOR [address] [address] PCP - General Advanced Practice Nurse 10/21/24 documented as of this encounter
== END 2024-12-13 04:12 | disposition home or self-care (01) ==
LOC: CHSED 04:08
PROVIDERS: Emergency Provider Family Medicine; Referring Provider Family Medicine
DX: G56.01 Carpal tunnel syndrome, right upper limb (principal); F17.210 Nicotine dependence, cigarettes, uncomplicated
CPT/HCPCS: 99283

== ENCOUNTER 2024-12-13 23:20 | Emergency (ER) | payer OTHER, SELFPAY ==
--- OUTSIDE RECORDS SUMMARY | 2024-09-28 05:40 | XMS_ITS ---
Author Organization [facility]ly [facility] Address [address] [place] [address] Care Team Providers Care Filling Room Operator Name Role Phone Alana Epps Primary Care Provider Ana Verma [phone] REASON FOR VISIT new patient Social History Sex Assigned At : Social History Observation Description Sex Assigned At Female Encounters Encounter Location Date [facility] [address] [place] [address] 09/28/2024 Ana Verma Plan Of Treatment No Information Progress Notes * Jaycee SLATERDOB:1980 (44 yo F)Acc No.[id number]:09/28/2024 UNLOCKED PROGRESS NOTE Patient: Jaycee AYALA Provider: ALCON Nash, CHIEF JUVENILE PROBATION OFFICER, PMHNP-BC :1980 A ge:44 Y S ex:Female Date:09/28/2024 Address:[address] [facility] Pcp:Alana Epps Subjective: * Chief Complaints: * 1 . New patient. * Medical History: Objective: * Vitals: Assessment: Plan: * Treatment: * * Electronic signature of Anton Verma on 12/13/2024 at 11:23 PM CDT Sign off status: Pending * Provider: Peg Verma MSN, CHIEF JUVENILE PROBATION OFFICER, PMHNP-BC Date: 0 09/28/2024 Generated for Printing/Faxing/eTransmitting on: 1 11:23 PM CDT
--- OUTSIDE RECORDS SUMMARY | 2024-09-29 04:20 | XMS_ITS ---
Author Organization [facility] Address [address] [place] [address] Care Team Providers Care Revenue Accounting Manager Name Role Phone Alana Epps Primary Care Provider [phone] Leandro Harris [phone] REASON FOR VISIT new patient Social History Sex Assigned At : Social History Observation Description Sex Assigned At Female Encounters Encounter Location Date Provider Diagnosis [address] [place] [address] 09/29/2024 Leandro Harris Plan Of Treatment No Information Progress Notes * JENNYFERJaycee SCHULZDOB:1980 (44 yo F)Acc No.[id number]:09/29/2024 UNLOCKED PROGRESS NOTE Patient: Jaycee AYALA Provider: Sasha Harris DNP, PMHNP-BC :1980 A ge:44 Y S ex:Female Date:09/29/2024 [facility] [facility] Pcp:Alana Epps Subjective: * Chief Complaints: * 1 . New patient. * Medical History: Objective: * Vitals: Assessment: Plan: * Treatment: * * Electronic signature of Kanu Harris APRN, [id number] on 12/13/2024 at 11:24 PM CDT Sign off status: Pending * Provider: Sasha Harris DNP, PMHNP-BC Date: 0 09/29/2024 Generated for Roland felder/Karina/eTransmitting on: 1 11:24 PM CDT
--- OUTSIDE RECORDS SUMMARY | 2024-10-06 03:20 | XMS_ITS ---
Author Organization [facility] Address [address] [place] [address] Care Team Providers Care Mechanic Helper Name Role Phone Alana Epps Primary Care Provider REASON FOR VISIT 1 week f/u Social History Sex Assigned At : Social History Observation Description Sex Assigned At Female Encounters Encounter Location Date Provider Diagnosis [place] [address] [facility] [place] [address] 10/06/2024 Alana Epps Plan Of Treatment No Information Progress Notes * Jaycee ROUSEDOB:1980 (44 yo F)Acc No.[id number]:10/06/2024 UNLOCKED PROGRESS NOTE Patient: Jaycee AYALA Provider: Sasha Epps MSN, COPYING MACHINE MECHANIC, PHOTOGRAPHER APPRENTICE-C :1980 A ge:44 Y S ex:Female Date:10/06/2024 Address[facility] [place] [facility] Subjective: * Chief Complaints: * 1 . 1 week f/u. * Medical History: Objective: * Vitals: Assessment: Plan: * Treatment: * Care Plan Details* * Electronic signature of Guera Epps APRN, [id number] on 12/13/2024 at 11:24 PM CDT Sign off status: Pending * Provider: Sasha Epps MSN, COPYING MACHINE MECHANIC, PHOTOGRAPHER APPRENTICE-C Date: 0 10/06/2024 Generated for Roland felder/Karina/eTransmitting on: 1 11:24 PM CDT
--- NOTE | ~2024-12-13 | CT_ITS ---
EXAMINATION: CT abdomen pelvis wo con DATE: 12/14/2024 00:52 INDICATION: Back pain. Kidneys are. TECHNIQUE: Computed tomography (CT) of the abdomen and pelvis was performed without intravenous contrast. The dose-length product was 188.58 mGy-cm. Automated exposure control and iterative reconstruction technique were employed. COMPARISON: CT dated 06/30/2024. FINDINGS: Lingular atelectasis. Heart size normal. No significant pleural or pericardial effusion. There is hepatomegaly. The spleen, pancreas, adrenal glands and kidneys are unremarkable for noncontrast CT. Status post cholecystectomy. Nonobstructive bowel gas pattern. Moderate colonic fecal loading. No free air or free fluid. Gas present in the vaginal vault, nonspecific. Anteverted uterus. IMPRESSION: 1. No acute abdominal abnormality. 2: Hepatomegaly. Reviewed, dictated and finalized at location O.
--- OUTSIDE RECORDS SUMMARY | 2024-12-13 13:00 | XMS_ITS | Encounter Summary ---
Author Organization [facility] Address [address] [place] [address] Phone Care Team Providers Care Specialty Therapist Name Role Phone Wendie Hercules LUIS FELIPE, ELVIA Primary Care Provider [phone] Reason for Visit * Radiology Services (Routine) - Authorized Specialty Diagnoses / Procedures Referred By Contjose t Referred To Contact Radiology Diagnoses Chest discomfort Procedures CT CHEST W CONTRAST Óscar Doss APRN, EXPERT MEDICAL WRITER #[address] [address] Phone: tel: fax: Referral ID Status Reason Start Date Expiration Date V isits Requested Visits Authorized [id number] Authorized 11/16/2024 1 1 Encounter Details Date Type Department Care Team (Late st Contact Info) Description 12/13/2024 1:00 PM CDT Hospital Encounter [facility] [address] [place] [address] Óscar Doss APRN, EXPERT MEDICAL WRITER #[address] [address] Social History Tobacco Use Types [...] Care Team (Late st Contact Info) Description 01/03/2025 2:30 PM DIRECTOR TALENT Office Visit [facility] - [facility] - [place] [address] [place] [address] Wendie Hercules, LUIS FELIPE, EXPERT MEDICAL WRITER 2 [facility] [address] [place] [address] Scheduled Orders Name Type Priority Associated Diagnoses Orde r Schedule CT CHEST W CONTRAST Imaging Routine Chest discomfort Expected: 11/16/2024, Expires: 11/16/2025 documented as of this encounter Visit Diagnoses Not on filedocumented in this encounter Additional Health Concerns Assessment Noted Time PHQ-9 Depression Total Score: 25 025 2:05 PM CDT documented as of this encounter Care Teams Specialty Therapist Relationship Specialty Start Date End Date Wendie Hercules, OUTPATIENT ADMITTING CLERK, EXPERT MEDICAL WRITER 2 [facility] [address] [place] [address] PCP - General Advanced Practice Nurse 10/21/24 documented as of this encounter
--- OUTSIDE RECORDS SUMMARY | 2024-12-13 13:00 | XMS_ITS | Encounter Summary ---
Author Organization [facility] Address [address] [place] [address] Phone Care Team Providers Care Crate Liner Name Role Phone Wendie Hercules LUIS FELIPE, ELVIA Primary Care Provider [phone] Reason for Visit * Radiology Services (Routine) - Authorized Specialty Diagnoses / Procedures Referred By Contjose t Referred To Contact Radiology Diagnoses Chest discomfort Procedures CT CHEST W CONTRAST Óscar Doss APRN, CONDUCTOR PULLMAN #[address] [address] Phone: tel: fax: Referral ID Status Reason Start Date Expiration Date V isits Requested Visits Authorized [id number] Authorized 11/16/2024 1 1 Encounter Details Date Type Department Care Team (Late st Contact Info) Description 12/13/2024 1:00 PM CDT Hospital Encounter [facility] [address] [place] [address] Óscar Doss APRN, CONDUCTOR PULLMAN #[address] [address] Social History Tobacco Use Types [...] st Contact Info) Description 01/03/2025 2:30 PM PRINT GRAPHIC DESIGNER Office Visit [facility] - [facility] - [place] [address] [place] [address] Wendie Hercules, LUIS FELIPE, CONDUCTOR PULLMAN 2 [facility] [address] [place] [address] Scheduled Orders Name Type Priority Associated Diagnoses Orde r Schedule CT CHEST W CONTRAST Imaging Routine Chest discomfort Expected: 11/16/2024, Expires: 11/16/2025 documented as of this encounter Visit Diagnoses Not on filedocumented in this encounter Additional Health Concerns Assessment Noted Time PHQ-9 Depression Total Score: 25 025 2:05 PM CDT documented as of this encounter Care Teams Crate Liner Relationship Specialty Start Date End Date Wendie Hercules, ASSISTANT PROFESSOR OF BIOLOGY, CONDUCTOR PULLMAN 2 [facility] [address] [place] [address] PCP - General Advanced Practice Nurse 10/21/24 documented as of this encounter
--- NOTE | 2024-12-13 23:24 | ED_ITS ---
HPI - Female Genitourinary General Chief complaint: Urogenital-Female Stated complaint: Kidney's hurt Time Seen by Provider: 12/13/24 23:23 Source: patient Mode of arrival: ambulatory Limitations: no limitations History of Present Illness HPI Narrative: Patient is a 44-year-old female with lower back pain and ?kidney pains? for the past day. No associated symptoms. She moved out of town for a while and now she is back in the town. MD elicited complaint: back pain Pertinent past history: other (Psychiatry issues (schizophrenia most likely)) Onset (ago): day(s) (1) Location of symptoms: low back Severity: mild Female Urogenital Radiation: Non-Radiating Severity scale (1-10): 4 Quality of pain: sharp Consistency: constant Vaginal discharge: none Vaginal bleeding: none Urinary symptoms: Flank Pain (More so lower back pain) Exacerbating factors: none Relieving factors: none Associated symptoms: rash (Face) Treatment prior to arrival: none Sexual activity: Yes Related Data Home Medications ?Medication ?Instructions ?Recorded ?Confirmed ?Last Taken ?Type aripiprazole 5 mg tablet (Abilify) 5 mg PO DAILY 05/1705/17/24 Unknown History lorazepam 0.5 mg tablet (Ativan) 0.5 mg PO Q6H PRN anx iety 05/17/24 05/17/24 Unknown History trazodone 50 mg tablet mg 05/17/24 Unknown History Allergies Allergy/AdvReac Type Severity Reaction Status Date / Time Penicillins Allergy Severe Difficulty Verified 12/13/24 23:32 Swallowing codeine AdvReac Swelling Verified 12/13/24 23:32 Review of Systems 2 Review of Systems: All systems reviewed & are unremarkable except as noted in HPI and below Constitutional: Constitutional: Reports no additional constitutional complaints Eyes: Eyes: Reports no additional eye complaints ENT: Reports system reviewed and no additional complaints, except as documented Cardiovascular: Cardiovascular: Reports no additional cardiovascular complaints Respiratory: Respiratory: Reports no additional respiratory complaints Gastrointestinal: Gastrointestinal: Reports no additional gastrointestinal complaints Genitourinary: Genitourinary: Reports no additional female genitourinary complaints Musculoskeletal: Musculoskeletal: Reports no additional musculoskeletal complaints Integumentary/Breasts: Skin/Breast: Reports system reviewed and no additional complaints, except as docu Neurologic: Reports system reviewed and no additional complaints, except as documented Psychiatric: Psychiatric: Reports no additional psychiatric complaints Endocrine: Endocrine: Reports no additional endocrine complaints Hematologic/Lymphatic: Hematologic/Lymphatic: Reports no additional hematologic/lymphatic complaints Allergic/Immunologic: Allergic/Immunologic: Reports no additional allergic/immunologic complaints [facility] Past Medical History Medical History Drug abuse Tooth decay Surgical History Surgical History History of x3 Family History Family History Father No problems noted. Father Lung cancer Mother Heart disease Social History Social History Years smoked: 20 Smoking status: Current every day smoker Tobacco type: cigarettes Second hand tobacco smoke exposure: Yes Alcohol intake: former Substance use: former Substance use type: methamphetamine Gender identity (if verbalized by the patient): Female Spiritual care concerns: No Exam 2 Const: General: healthy appearing Nutritional Appearance: well nourished Orientation/consciousness: patient oriented x3 HENMT: Head: normal to inspection Ears: external ears normal F barak/Nose/Sinus: Normal external nose present Eyes: Conjunctivae: conjunctivae normal Pupils: Equal, round and reactive pupils present EOM: EOMs intact bilaterally Neck: Neck: normal visual inspection Chest: Chest palpation & inspection: normal inspection of the chest Resp: Effort & Inspection: normal respiratory effort and not labored A uscultation: clear to auscultation bilaterally and no crackles Cardio: Rate: regular rate Rhythm: regular rhythm Heart sounds: no murmurs GI: Inspection: non-distended GI Palp: Yes Soft to palpation and No Tenderness to palpation present (GI) Auscultation: normal bowel sounds : General: Yes bladder normal to palpation Back/Spine/Pelvis: Back: no CVA tenderness Skin: General skin exam: normal color Rashes: no rashes Wounds: no wounds Neuro: General: patient oriented x3, moves all extremities and no meningeal signs Extrem: General: normal to inspection, no clubbing, cyanosis or edema and no pedal edema Psych: Appearance: grossly normal Course Vital Signs Vital signs: Vital Signs Temperature 36.9 C 12/13/24 23:28 Pulse Rate 73 10/21/25 23:28 Respiratory Rate 18 12/13/24 23:28 Blood Pressure 116/76 12/13/24 23:28 Pulse Oximetry 99 12/13/24 23:28 Oxygen Delivery Autopap 12/13/24 23:28 Temperature 36.9 C 12/13/24 23:28 Pulse Rate 73 12/13/24 23:28 Respiratory Rate 18 12/13/24 23:28 Blood Pressure 116/76 12/13/24 23:28 Pulse Oximetry 99 12/13/24 23:28 Oxygen Delivery Autopap 12/13/24 23:28 MDM - Female Genitourinary MDM Narrative Medical decision making narrative: Patient is a 44-year-old female with lower back pain which she relates to her kidneys at this time. CT scan. Urinalysis. Labs. Lab Data Attestation: I reviewed the patient's lab results. 12/14/24 00:07 12/14/24 00:07 Labs: Lab Results 12/13/24 12/14/24 Range/Units 23:36 00:07 WBC 8.0 (4.8-10.8) K/mm3 RBC 3.60 L (4.20-5.40) M/mm3 Hgb 10.8 L (12.0-15.0) g/dL Hct 33.3 L (35.0-49.0) % MCV 92.5 (78.0-102.0) fL MCH 30.0 (27.0-31.0) pg MCHC 32.4 (32-36) g/dL RDW 12.6 (11.6-14.4) % Plt Count 294 (150-420) K/mm3 MPV 9.1 L (9.2-11.8) fl Immature Gran % (Auto) 0.2 H (0.0-0.0) % Neut % (Auto) 61.1 (50.0-70.0) % Lymph % (Auto) 27.8 (18.0-42.0) % [place] % (Auto) 9.3 (2.0-11.0) % Eos % (Auto) 1.1 (1.0-6.0) % Baso % (Auto) 0.5 (0.0-1.0) % Lymph # (Auto) 2.23 (1.10-4.50) K/mm3 [place] # (Auto) 0.75 (0.10-0.90) K/mm3 Eos # (Auto) 0.09 (0.02-0.50) K/mm3 Baso # (Auto) 0.04 (0.00-0.10) K/mm3 Abs Immat Gran (auto) 0.02 H (0.00-0.00) K/mm3 Absolute Neuts (auto) 4.90 (1.70-7.20) K/mm3 Absolute Nucleated RBC 0.00 (0.00-0.00) K/mm3 Nucleated RBC % 0.0 (0-0.0) % Sodium 138 (137-145) mmol/L Potassium 4.0 (3.4-5.0) mmol/L Chloride 105 (98-107) mmol/L Carbon Dioxide 27 (22-30) mmol/L Anion Gap 6 (4-12) mmol/L BUN 8 D (7-17) mg/dL Creatinine 0.74 (0.7-1.0) mg/dL Estim Creat Clear Calc 65 ml/min Estimated GFR > 60 (59 - ) Glucose 112 H (65-110) mg/dL Calculated Osmolality 285 (285-295) mOsm/kg Calcium 9.1 (8.4-10.2) mg/dL Total Bilirubin 0.4 (0.2-1.3) mg/dL AST 23 (14-36) U/L ALT 14 (6-35) U/L Alkaline Phosphatase 64 (38-126) U/L Total Protein 6.7 (6.3-8.2) g/dL Albumin 3.8 (3.5-5.1) g/dL Urine Color Yellow (Yellow) Urine Appearance Sl cloudy A (Clear) Urine pH 6.0 (5.0-8.0) Ur Specific [place] >= 1.030 H (1.010-1.020) Urine Protein Negative (Negative) Urine Glucose (UA) Negative (Negative) Urine Ketones Trace H (Negative) Ur Blood (Man) 1+ H (Negative) Urine Nitrate Negative (Negative) Urine Bilirubin Negative (Negative) Urine Urobilinogen 0.2 (0.2-1.0) mg/dL Leukocyte Esterase Rfl Negative (Negative) YANET/UL Urine RBC None seen (0-2) /hpf Urine WBC 0-3 (0-3) /hpf Ur Squamous Epith Cells Many H (Few) /hpf Calcium Oxalate Crystal Present H (None) /hpf Urine Bacteria 1+ H (None) /hpf Urine Mucus Heavy H /lpf Urine Test Negative Imaging Data Attestation: I personally reviewed and interpreted this imaging study as follows: Radiologist's impression: CT scan of the abdomen and pelvis shows full of stool but no acute process otherwise noted Discharge Plan Discharge Clinical Impression: Lumbago Qualifiers: Chronicity: acute Back pain laterality: bilateral Sciatica presence: without sciatica Qualified Code(s): M54.50 - Low back pain, unspecified Patient Disposition: Home Condition: Stable Instructions: Back Pain (ED) Patient Language: Kinyarwanda Prescriptions: No Action trazodone 50 mg tablet aripiprazole [Abilify] 5 mg tablet 5 mg PO DAILY lorazepam [Ativan] 0.5 mg tablet 0.5 mg PO Q6H PRN (Reason: anxiety) sulfamethoxazole-trimethoprim [Bactrim DS] 800-160 mg tablet 1 tablet PO Q12H Qty: 10 0RF azithromycin 500 mg tablet See Rx Instructions .ROUTE .COMPLEX Qty: 3 0RF Rx Instructions: For 500 mg dose pack: take 500 mg once daily for 3 days prednisone 20 mg tablet 20 mg PO DAILY 3 Days Qty: 3 0RF ondansetron 4 mg tablet,disintegrating 4 mg PO Q8H PRN (Reason: nausea and vomiting) Qty: 14 0RF levofloxacin 500 mg tablet 500 mg PO DAILY Qty: 6 0RF bupropion HCl [Wellbutrin SR] 150 mg tablet sustained-release 12 hr 150 mg PO QAM Qty: 30 0RF sulfamethoxazole-trimethoprim [Bactrim DS] 800-160 mg tablet 1 tablet PO Q12H 5 Days Qty: 10 0RF Follow-up/Referrals: UNKNOWN,DOCTOR [Primary Care Provider] Time of Disposition: 02:22
--- OUTSIDE RECORDS SUMMARY | 2024-12-13 23:24 | XMS_ITS | Encounter Summary ---
Author Organization [facility] Address [facility] [place] [address] Care Team Providers Care Civil Manager Name Role Phone None, Provider Primary Care Provider Francisco Javier Santana MD Primary Care Provider [phone] Encounter Details Date Type Department Care Team (Late st Contact Info) Description 07/31/2018 Abstract [facility] CONVERSION [address] [place] [address] , Generic Conversion, Social History [...] documented as of this encounter Care Teams Civil Manager Relationship Specialty Start Date End Date None, Provider, PCP - General UNKNOWN PHYSICIAN SPECIALTY 07/13/23 06/04/24 Francisco Javier Ivan MD [address] [place] [address] PCP - General FAMILY PRACTICE 06/05/24 documented as of this encounter
--- OUTSIDE RECORDS SUMMARY | 2024-12-13 23:24 | XMS_ITS | Clinical Summary ---
Author Organization [facility] Address [facility] [place] [address] Care Team Providers Care Websphere Commerce Architect Name Role Phone Francisco Javier Ivan MD Primary Care Provider [phone] Allergies Active Allergy Reactions Criticality Noted Date [...] CDT - 10/18/2024 10:30 PM CDT Emergency [facility] [address] [place] [address] Sherwin Manzo MD Geldmacher, Kelly J, MD Medical Problem Discharge Disposition: [facility] 10/17/2024 2:59 PM CDT - 10/17/2024 8:00 PM CDT Emergency [facility] [address] [place] [address] Familia Carter MD Medical Problem Discharge Disposition: Home or Self Care (Routine Discharge) 10/17/2024 Travel from Last 3 Months Social History Tobacco Use Types Packs/Day Years Used Date Smoking Tobacco: Every Day Cigarettes Smokeless Tobacco: Never Tobacco Cessation:Ready to Q uit: Not Asked; Counseling Given: Not Answered Alcohol Use Standard Drinks/Week Comments Never 0 (1 standard drink = 0.6 oz pur e alcohol) [facility] Utilities Answer Date Recorded In the past 12 months has [facility] [employer], gas, oil, or water [email or web address] threatened to shut off services in your [...] time in the past 12 m [facility] [place], were you homeless or living in a [...] 8:20 PM Narrative 10/18/2024 8:22 PM CDT [place] [address] EXAMINATION: CT head without contrast HISTORY: Confusion. [...] Procedure Note Gaurav Damon DO - 10/18/2024 [place] [address] EXAMINATION: CT head without contrast HISTORY: Confusion. [...] URINE CLEAN CATCH 10/18/2024 4:30 PM CDT [facility] SPECIAL REQUESTS NO SPECIAL REQUEST 10/18/2024 4:30 PM CDT [facility] CULTURE RESULT POLYMICROBIAL GROWTH CONSISTENT WITH NORMAL GENITAL CAM. SUSCEPTIBILITIES NOT ROUTINELY PERFORMED. 10/19/2024 8:45 AM CDT [facility] URINE SPECIMEN OBTAINED BY CLEAN CATCH PROCEDURE / Unknown 10/18/2024 4:30 PM CDT 10/18/2024 8:10 PM CDT us Sherwin Manzo MD MICROBIOLOGY - GENERAL ORDERA BLES Final Result [facility] [address] [place] [address], [place] [phone] * RESPIRATORY PCR PANEL 2 (10/18/2024 12:33 PM CDT) Pathologist [facility] ADENOVIRUS PCR (RESP) NOT DETECTED NOT DETECTED 10/18/2024 1:50 PM CDT [facility] CORONAVIRUS 229E PCR (RESP) NOT DETECTED NOT DETECTED 10/18/2024 1:50 PM CDT [facility] CORONAVIRUS HKU1 PCR (RESP) NOT DETECTED NOT DETECTED 10/18/2024 1:50 PM CDT [facility] CORONAVIRUS NL63 PCR (RESP) NOT DETECTED NOT DETECTED 10/18/2024 1:50 PM CDT [facility] CORONAVIRUS OC43 PCR (RESP) NOT DETECTED NOT DETECTED 10/18/2024 1:50 PM CDT [facility] METAPNEUMOVIRUS PCR (RESP) NOT DETECTED NOT DETECTED 10/18/2024 1:50 PM CDT [facility] RHINOVIRUS/ENTEROV IRUS PCR (RESP) NOT DETECTED NOT DETECTED 10/18/2024 1:50 PM CDT [facility] INFLUENZA A PCR (RESP) NOT DETECTED NOT DETECTED 10/18/2024 1:50 PM CDT [facility] INFLUENZA B PCR (RESP) NOT DETECTED NOT DETECTED 10/18/2024 1:50 PM CDT [facility] PARAINFLUENZA 1 PCR (RESP) NOT DETECTED NOT DETECTED 10/18/2024 1:50 PM CDT [facility] PARAINFLUENZA 2 PCR (RESP) NOT DETECTED NOT DETECTED 10/18/2024 1:50 PM CDT [facility] PARAINFLUENZA 3 PCR (RESP) NOT DETECTED NOT DETECTED 10/18/2024 1:50 PM CDT [facility] PARAINFLUENZA 4 PCR (RESP) NOT DETECTED NOT DETECTED 10/18/2024 1:50 PM CDT [facility] RSV PCR (RESP) NOT DETECTED NOT DETECTED 10/18/2024 1:50 PM CDT [facility] B PARAPERTUSIS PCR (RESP) NOT DETECTED NOT DETECTED 10/18/2024 1:50 PM CDT [facility] BORDETELLA PERTUSSIS PCR (RESP) NOT DETECTED NOT DETECTED 10/18/2024 1:50 PM CDT [facility] CHLAMYDOPHILA PNEUMONIAE PCR (RESP) NOT DETECTED NOT DETECTED 10/18/2024 1:50 PM CDT [facility] MYCOPLASMA PNEUMONIAE PCR (RESP) NOT DETECTED NOT DETECTED 10/18/2024 1:50 PM CDT [facility] CORONAVIRUS SARS COV 2 PCR (RESP) NOT DETECTED NOT DETECTED 10/18/2024 1:50 PM CDT [facility] NASOPHARYNGEAL SWAB / Unknown 10/18/2024 12:33 PM CDT Sherwin Manzo MD MICROBIOLOGY - GENERAL ORDERA BLES Final Result Performing Organization Address City/[facility]/ZIP Co de Phone Number [facility] [address] [place] [address], [place] [phone] * TEST URINE (10/18/2024 11:00 AM CDT) URINE HCG TEST NEGATIVE 10/18/2024 11:11 AM CDT [facility] Comment: VERY DILUTE URINE SPECIMENS MAY NOT CONTAIN DOCUMENT CONTROL MANAGER LEVELS OF HCG. IF IS STILL SUSPECTED, A SERUM HCG TEST IS RECOMMENDED. URINE SPECIMEN FROM URETHRA / Unknown 10/18/2024 11:00 AM CDT Sherwin Manzo MD URINE ORDERABLES Final Result Performing Organization Address [facility] Co de Phone Number [facility] [address] [place] [address], [place] [phone] * (ABNORMAL) URINALYSIS, AUTO, COMPLETE (10/18/2024 11:00 AM CDT) SPECIMEN TYPE URINE CLEAN CATCH 10/18/2024 11:01 AM CDT [facility] COLOR (U) DARK BROWN 10/18/2024 11:23 AM CDT [facility] TRANSPARENCY TURBID 10/18/2024 11:23 AM CDT [facility] SPECIFIC GRAVITY (U) 1.034(H) 1.001 - 1.030 10/18/2024 11:23 AM CDT [facility] U PH 5.5 5.0 - 9.0 10/18/2024 11:23 AM T [facility] LEUKOCYTES (U) 250(A) NEGATIVE 10/18/2024 11:23 AM T [facility] NITRITES NEGATIVE NEGATIVE 10/18/2024 11:23 AM T [facility] PROTEIN RANDOM (U) 100(H) <30 MG/DL 10/18/2024 11:23 AM T [facility] GLUCOSE (U) NORMAL NORMAL MG/DL 10/18/2024 11:23 AM T [facility] KETONES MG/DL (U) 60(A) NEGATIVE MG/DL 10/18/2024 11:23 AM T [facility] UROBILINOGEN NORMAL NORMAL MG/DL 10/18/2024 11:23 AM T [facility] BILIRUBIN (U) NEGATIVE NEGATIVE MG/DL 10/18/2024 11:23 AM T [facility] BLOOD (U) 3+(A) NEGATIVE 10/18/2024 11:23 AM T [facility] MUCUS MANY /LPF 10/18/2024 11:23 AM [facility] WBC/HPF >100(H) <6 /HPF 10/18/2024 11:23 AM T [facility] RBC/HPF >100(H) <6 /HPF 10/18/2024 11:23 AM T [facility] SQUAMOUS EPITHELIALS MODERATE /HPF 10/18/2024 11:23 AM [facility] URINE SPECIMEN OBTAINED BY CLEAN CATCH PROCEDURE / Unknown 10/18/2024 11:00 AM CDT us Sherwin Manzo MD URINE ORDERABLES Final Result [facility] [address] [place] [address], [place] [phone] * (ABNORMAL) DRUG SCREEN RAPID (10/18/2024 10:56 AM CDT) Only the most recent of2 resultswithin the time period is included. AMPHETAMINE (U) POSITIVE(A) NEGATIVE 10/19/19 11:27 AM CDT [facility] BARBITURATES SCREEN (U) POSITIVE(A) NEGATIVE 10/18/2024 11:27 AM CDT [facility] BENZODIAZEPINES SCREEN (U) NEGATIVE NEGATIVE 10/18/2024 11:27 AM CDT [facility] CANNABINOIDS SCREEN (U) NEGATIVE NEGATIVE 10/18/2024 11:27 AM CDT [facility] COCAINE METABOLITES (U) NEGATIVE NEGATIVE 10/18/2024 11:27 AM CDT [facility] METHADONE (U) NEGATIVE NEGATIVE 10/18/2024 11:27 AM CDT [facility] OPIATE SCREEN (U) NEGATIVE NEGATIVE 025 11:27 AM CDT [facility] PHENCYCLIDINE PCP (U) NEGATIVE NEGATIVE 10/18/2024 11:27 AM CDT [facility] Comment: NOTE: RESULTS OF THIS DRUG SCREEN SHOULD BE USED FOR MEDICAL PURPOSES ONLY AND NOT FOR LEGAL OR EMPLOYMENT PURPOSES. POSITIVE RESULTS ARE NOT CONFIRMED. MEDICATIONS CONTAINING EPHEDRINE MAY CAUSE FALSE POSITIVE AMPHETAMINE CALL [phone], LAB, TO REQUEST CONFIRMATION TESTING. IF CREATININE IS <40 mg/dL. RECOLLECTION IS SUGGESTED. AMPHETAMINE- 500 NG/ML BARBITURATE- 200 NG/ML BENZODIAZEPINES- 200 NG/ML THC- 50 NG/ML COCAINE- 150 NG/ML METHADONE- 300 NG/ML OPIATE- 300 MG/ML PCP- 25 NG/ML CREATININE (U) 337.0(H) 28 - 217 MG/DL 10/18/2024 11:27 AM CDT [facility] URINE SPECIMEN / Unknown 10/18/2024 10:56 AM CDT us Sherwin Manzo MD URINE ORDERABLES Final Result Performing Organization Address City/[facility]/ZIP Co de Phone Number [facility] [address] [place] [address], * (ABNORMAL) MAGNESIUM (10/18/2024 10:45 AM CDT) MAGNESIUM 2.5(H) 1.8 - 2.4 MG/DL 10/18/2024 12:06 PM CDT [facility] 10/18/2024 10:4 5 AM CDT Sherwin Manzo MD LABORATORY Final Result Performing Organization Address [facility] Co de Phone Number [facility] [address] [place] [address], * (ABNORMAL) SALICYLATE (10/18/2024 10:45 AM CDT) SALICYLATES 2.0(L) 2.8 - 20.0 MG/DL 10/18/2024 11:14 AM CDT [facility] Comment: THERAPEUTIC: 2.8-20.0 Toxic Level: >=30 10/18/2024 10:4 5 AM CDT us Sherwin Manzo MD LABORATORY Final Result Performing Organization Address City/[facility]/ZIP Co de Phone Number [facility] [address] [place] [address], * CK (CPK) (10/18/2024 10:45 AM CDT) CPK 88 21 - 215 U/L 10/18/2024 12:06 PM CDT [facility] 10/18/2024 10:4 5 AM CDT Sherwin Manzo MD LABORATORY Final Result [facility] [address] [place] [address], [place] [phone] * (ABNORMAL) COMPREHENSIVE METABOLIC PANEL (10/18/2024 10:17 AM CDT) GLUCOSE 83 70 - 99 MG/DL 10/18/2024 11:12 AM CDT [facility] BUN 18 7 - 18 MG/DL 10/18/2024 11:12 AM CDT [facility] CREATININE S/P/B 0.90 0.55 - 1.02 MG/DL 10/18/2024 11:12 AM CDT [facility] SODIUM S/P/B 140 136 - 145 MMOL/L 10/18/2024 11:12 AM CDT [facility] POTASSIUM S/P/B 4.0 3.5 - 5.1 MMOL/L 10/18/2024 11:12 AM CDT [facility] CHLORIDE S/P/B 111 97 - 115 MMOL/L 10/18/2024 11:12 AM CDT [facility] CO2 20.9(L) 21 - 32 MMOL/L 10/18/2024 11:12 AM CDT [facility] CALCIUM S/P/B 9.4 8.5 - 10.1 MG/DL 10/18/2024 11:12 AM CDT [facility] BILIRUBIN TOTAL S/P/B 0.6 0.2 - 1.2 MG/DL 10/18/2024 11:12 AM T [facility] Comment: THIS ASSAY IS NOT RECOMMENDED FOR PATIENTS UNDERGOING TREATMENT WITH ELTROMBOPAG DUE TO THE POTENTIAL FOR FALSELY ELEVATED RESULTS. TOTAL PROTEIN S/P/B 7.3 6.4 - 8.2 G/DL 10/18/2024 11:12 AM T [facility] ALBUMIN S/P/B 3.7 3.4 - 5.0 G/DL 10/18/2024 11:12 AM T [facility] AST 21 15 - 37 U/L 10/18/2024 11:12 AM [facility] ALT 23 14 - 55 U/L 10/18/2024 11:12 AM [facility] ALKALINE PHOSPHATASE S/P/B 99 50 - 136 U/L 10/18/2024 11:12 AM [facility] ANION GAP 8.1 2 - 10 MMOL/L 10/18/2024 11:12 AM [facility] BUN CREATININE RATIO 20.0 - 10/18/2024 11:12 AM [facility] A/G RATIO 1.0 1.0 - 2.0 RATIO 10/18/2024 11:12 AM [facility] GFR ESTIMATE 82(L) >90 ML/MIN/1.7 3 M2 10/18/2024 11:12 AM [facility] Comment: NOTE: eGFR is not [...] us Sherwin Manzo MD LABORATORY Final Result [facility] [address] [place] [address], [place] [phone] * (ABNORMAL) CBC W/DIFF AUTOMATED (10/18/2024 10:17 AM CDT) Only the most recent of2 resultswithin the time period is included. Pathologist [facility] WBC 8.83 4.5 - 11.0 x10'3/uL 10/18/2024 10:34 AM CDT [facility] RBC 4.34 4.20 - 5.40 x10'6/uL 10/18/2024 10:34 AM CDT [facility] HGB 13.1 12.0 - 16.0 G/DL 10/18/2024 10:34 AM CDT [facility] HCT 41.2 38.0 - 48.0 % 10/18/2024 10:34 AM CDT [facility] MCV 94.9 81.0 - 99.0 FL 10/18/2024 10:34 AM CDT [facility] MCH 30.2 27.0 - 31.0 PG 10/18/2024 10:34 AM CDT [facility] MCHC 31.8(L) 32.0 - 36.0 G/DL 10/18/2024 10:34 AM CDT [facility] RDW 12.5 11.5 - 14.5 % 10/18/2024 10:34 AM CDT [facility] PLT 432(H) 130 - 400 x10'3/uL 10/18/2024 10:34 AM CDT [facility] MPV 10.1 9.3 - 12.2 FL 10/18/2024 10:34 AM CDT [facility] DIFFERENTIAL TYPE AUTOMATED DIFFERENTIAL 10/18/2024 10:34 AM CDT [facility] NEUTROPHILS % 68.8 % 10/18/2024 10:34 AM CDT [facility] LYMPHOCYTES % 23.9 % 10/18/2024 10:34 AM CDT [facility] MONOCYTES % 6.2 % 10/18/2024 10:34 AM CDT [facility] EOSINOPHILS 0.2 % 10/18/2024 10:34 AM CDT [facility] BASOPHILS 0.7 % 10/18/2024 10:34 AM CDT [facility] IMMATURE GRANS % 0.2 % 10/19/19 10:34 AM CDT [facility] ABS. NEUTROPHILS 6.07 1.80 - 7.70 x10'3/uL 10/18/2024 10:34 AM CDT [facility] ABS. LYMPHOCYTES 2.11 1.00 - 4.80 x10'3/uL 10/18/2024 10:34 AM CDT [facility] ABS. MONOCYTES 0.55 0.24 - 0.86 x10'3/uL 10/18/2024 10:34 AM T [facility] ABS. EOSINOPHILS 0.02(L) 0.04 - 0.36 x10'3/uL 10/18/2024 10:34 AM CDT [facility] ABS. BASOPHILS 0.06 0.01 - 0.08 x10'3/uL 10/18/2024 10:34 AM T [facility] ABS. IMMATURE GRANULOCYTES 0.02 0.00 - 0.49 x10'3/uL 10/18/2024 10:34 AM T [facility] 10/18/2024 10:1 7 AM CDT Sherwin Manzo MD LABORATORY Final Result Performing Organization Address City/[facility]/ZIP Co de Phone Number [facility] [address] [place] [id number], * THYROID STIM HORMONE, TSH (10/18/2024 10:17 AM CDT) TSH 1.380 0.358 - 3.74 uIU/ML 10/18/2024 11:12 AM CDT [facility] Comment: HIGH DOSES OF BIOTIN MAY INTERFERE WITH THIS TEST RESULT. CORRELATION TO CLINICAL HISTORY AND PRESENTATION RECOMMENDED. 10/18/2024 10:1 7 AM CDT Sherwin Manzo MD LABORATORY Final Result Performing Organization Address [facility] Co de Phone Number [facility] [address] [place] [address], * ETHANOL (10/18/2024 10:17 AM CDT) Only the most recent of2 resultswithin the time period is included. ALCOHOL S/P/B <0.003 <0.003 G/DL 10/18/2024 11:12 AM CDT [facility] 10/18/2024 10:1 7 AM CDT Sherwin Manzo MD LABORATORY Final Result [facility] [address] [place] [address], * (ABNORMAL) ACETAMINOPHEN (10/18/2024 10:17 AM CDT) ACETAMINOPHEN S/P/B <2.0(L) 10.0 - 30.0 MCG/ML 10/18/2024 11:12 AM CDT [facility] Comment: THERAPEUTIC: 10-30 TOXIC: >200 10/18/2024 10:1 7 AM CDT Sherwin Manzo MD LABORATORY Final Result [facility] [address] [place] [address], * ECG 12 lead (10/18/2024 10:08 AM CDT) Only the most recent of2 resultswithin the time period is included. 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1980 Requested By: SHERWIN MANZO Order Number: [id number] Reading MD: Vinod Orozco Measurements Intervals [place] Rate: 67 P: 70 FL: 121 QRS: 79 QRSD: 90 T: 72 QT: 387 QTc: 410 Interpretive Statements SINUS RHYTHM WITH SINUS ARRHYTHMIA Compared to ECG 10/17/2024 15:31:23 No significant changes No ischemic changes Preliminary EKG Interpretation by Sherwin Manzo M.D Procedure Note Vinod Orozco MD - 10/18/[address] Test Date: 2024-10-18 Pat Name: JJ ROUSE Department: 41 Room: EXAM19 Gender: Female 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1980 Requested By: SHERWIN MANZO Order Number: [id number] Reading MD: Vinod Orozco Measurements Intervals [place] Rate: 67 P: 70 FL: 121 QRS: 79 QRSD: 90 T: 72 QT: 387 QTc: 410 Interpretive Statements SINUS RHYTHM WITH SINUS ARRHYTHMIA Compared to ECG 10/17/2024 15:31:23 No significant changes No ischemic changes Preliminary EKG Interpretation by Sherwin Manzo M.D us Sherwin Manzo MD ECG ORDERABLES Final Result [facility] ([facility]) RAD * (ABNORMAL) BASIC METABOLIC PANEL (10/17/2024 4:12 PM CDT) SODIUM S/P/B 140 136 - 145 MMOL/L 10/17/2024 5:06 PM CDT [facility] POTASSIUM S/P/B 3.5 3.5 - 5.1 MMOL/L 10/17/2024 5:06 PM CDT [facility] CHLORIDE S/P/B 103 98 - 107 MMOL/L 10/17/2024 5:06 PM CDT [facility] CO2 27.0 21.0 - 32.0 MMOL/L 10/17/2024 5:06 PM CDT [facility] GLUCOSE 98 70 - 99 MG/DL 10/17/2024 5:06 PM CDT [facility] Comment: FASTING GLUCOSE 100 TO 125 MG/DL IS CONSISTENT WITH IMPAIRED FASTING GLUCOSE. FASTING GLUCOSE >125 MG/DL IS CONSISTENT WITH DIABETES. RANDOM GLUCOSE >200 MG/DL WITH HYPERGLYCEMIC SYMPTOMS IS CONSISTENT WITH DIABETES. PER ADA GUIDELINES BUN 18 6 - 24 MG/DL 10/17/2024 5:06 PM CDT [facility] CREATININE S/P/B 1.18(H) 0.55 - 1.02 MG/DL 10/17/2024 5:06 PM CDT [facility] CALCIUM S/P/B 10.0 8.4 - 10.5 MG/DL 10/17/2024 5:06 PM CDT [facility] ANION GAP 10.0 5.0 - 15.0 MMOL/L 10/17/2024 5:06 PM CDT [facility] OSMOLALITY (CALC) 292 MOSM/KG 025 5:06 PM CDT [facility] Comment:REFERENCE RANGE NOT ESTABLISHED GFR ESTIMATE 59(L) >89 ML/MIN/1. 73 M2 10/17/2024 5:06 PM CDT [facility] GFR NOTES GFR REFERENCE S: 10/17/2024 5:06 PM CDT [facility] Comment: THE ESTIMATED GFR IS [...] ml/min/1.73 m2 10/17/2024 4:12 PM CDT Familia Crater MD LABORATORY Final Result [facility] [place] [address], * CORONAVIRUS (COVID-19) ANTIGEN (10/17/2024 4:05 PM CDT) CORONAVIRUS ANTIGEN IA NEGATIVE NEGATIVE 10/17/2024 5:06 PM CDT [facility] Comment: NEGATIVE RESULTS DO NOT [...] SPECIMEN TYPE NASAL 10/17/2024 4:43 PM CDT [facility] NASAL NASAL STRUCTURE / Unknown 10/17/2024 4:05 PM CDT Familia Carter MD MICROBIOLOGY - GENERAL ORDERAB LES Final Result Performing Organization Address City/[facility]/ZIP Co de Phone Number [facility] [address] [employer] [place] [address], [place] [phone] * HEPATITIS PANEL,ACUTE (10/13/2023 3:24 AM CDT) [...] LABORATORY Final Result [facility] [address] [place], [place] [address] [phone] [id number] from Last 3 Months or Most Recently Relevant to Health Maintenance Insurance [employer] Advance Directives Documents on File Type Date Recorded Patient Nurses Medical Assistants Phlebotomists Expl anation Advance Directives and Living Will 05/10/2015 12:00 AM ADVANCED DIRECTIVES Advance Directives and Living Will 08/06/2013 12:00 AM [employer] Advance Directives and Living Will 12/28/2012 12:00 AM AD[employer]ED DIRECTIVES * Full Code (Latest Code Status on File) Date Activated Date Inactivated Comments 10/13/2023 5:53 AM 10/14/2023 10:50 AM Care Teams [employer] Commerce Architect Relationship Specialty Start Date End Date Francisco Javier Ivan MD [address] [address] PCP - General FAMILY PRACTICE 06/05/24
--- OUTSIDE RECORDS SUMMARY | 2024-12-13 23:24 | XMS_ITS | Clinical Summary ---
Author Organization [facility] Address [address], [address] [address] Phone Care Team Providers Care Gas Torch Solderer Name Role Phone DelisaMay N GLAUCOMA SPECIALIST, INDUSTRIAL ORGANIZATION MANAGER Primary Care Provider [phone] Allergies Active Allergy Reactions Criticality Noted Date [...] Description 12/13/2024 1:00 PM CDT Hospital Encounter [facility] [address] [place] [address] Óscar Doss, GLAUCOMA SPECIALIST, INDUSTRIAL ORGANIZATION MANAGER 12/05/2024 Results Follow-Up [facility] [address] [place] [address] Wendie Hercules, GLAUCOMA SPECIALIST, INDUSTRIAL ORGANIZATION MANAGER US THYROID, VITAMIN D, 25 HYDROXY TOTAL, VITAMIN B12, Additional followed-up results: 5 12/02/2024 10:49 AM CDT - 12/02/2024 11:59 PM CDT [facility] Ul[facility] [address] [place] [address] Wendie Hercules, GLAUCOMA SPECIALIST, INDUSTRIAL ORGANIZATION MANAGER Discharge Disposition: Discharged to home or Selfcare 12/02/2024 Travel 11/21/2024 2:30 PM CDT Office Visit [facility] [address] [place] [address] Wendie Hercules, GLAUCOMA SPECIALIST, INDUSTRIAL ORGANIZATION MANAGER Depression with anxiety (Primary Dx); At risk for sexually transmitted disease due to unprotected sex Discharge Disposition: Discharged to home or Selfcare 11/21/2024 Travel 11/17/2024 9:39 AM CDT - 11/17/2024 11:17 AM CDT Emergency [facility] Emergency [address] [place] [address] Hugh Palencia DO Viral syndrome Discharge Disposition: Discharged to home or Selfcare 11/17/2024 Telephone [facility] [address] [place] [address] Wendie Hercules APRN, INDUSTRIAL ORGANIZATION MANAGER 11/17/2024 Nurse Triage [facility] [address] [place] [address] Wendie Hercules, GLAUCOMA SPECIALIST, INDUSTRIAL ORGANIZATION MANAGER Breathing Problem 11/16/2024 2:15 PM CDT Office Visit [facility] [address] [place] [address] Óscar Doss, GLAUCOMA SPECIALIST, INDUSTRIAL ORGANIZATION MANAGER Chest discomfort (Primary Dx) Discharge Disposition: Discharged to home or Selfcare 11/16/2024 Documentation Only [facility] Mammography [address] [place] [address] Wendie Hercules APRN, INDUSTRIAL ORGANIZATION MANAGER 11/15/2024 10:03 PM CDT - 11/16/2024 12:06 AM CDT Emergency [facility] Emergency [address] [place] [address] Billy Cagle MD Chest pain, unspecified type Discharge Disposition: Discharged to home or Selfcare 11/15/2024 Travel 11/11/2024 Telephone [facility] [address] [place] [address] Wendie Hercules, LUIS FELIPE, INDUSTRIAL ORGANIZATION MANAGER Need Order 10/21/2024 2:00 PM CDT Office Visit [facility] [address] [place] [address] Wendie Hercules, GLAUCOMA SPECIALIST, INDUSTRIAL ORGANIZATION MANAGER Encounter for preventative adult health care exam with abnormal findings (Primary Dx); History of methadone use; Anxiety and depression; Nodule of left lobe of thyroid gland; Vaginal pain; Encounter for screening mammogram for breast cancer Discharge Disposition: Discharged to home or Selfcare 10/21/2024 Travel 10/21/2024 Telephone [facility] Call [facility] [address] [place] [address] Provider, None New Patient from Last 3 [...] Date Recorded Total Score - Questions 1-9 09/24 Sexually Active Control Partners Comments Yes [...] st Contact Info) Description 01/03/2025 2: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 [facility] [address] [place] [address] Health Maintenance Due Date Last Done Comments [...] (#1) 10/24/202411/23, 04/05/2014, 02/22/2013 SARS-COV-2 Immunization ( - season) 2024 Td Immunization Every 10 Years [...] CDT DICTATING PHYSICIAN: Mickey Mccarty D.O. - [facility] US THYROID, 12/02/2024 11:09 AM [...] (2) with internal vascularity. Echogenicity: Hyperechoic (1). Ibcoqx-baxa-Xscl: no (0). Margins: Smooth (0). Echogenic foci: None (0). ACR TI-RADS Classification: TR 3 (3 points) Procedure Note Mickey Mccarty, - 12/03/2024 DICTATING PHYSICIAN: Mickey Mccarty D.O. - [facility] US THYROID, 12/02/2024 11:09 AM CLINICAL [...] solid (2) with internalvascularity. Echogenicity: Hyperechoic (1). Tefpkd-awyw-Mgli: no (0). Margins: Smooth (0). Echogenic foci: [...] to the 2017 [employer]. us Wendie N Oehl GLAUCOMA SPECIALIST, INDUSTRIAL ORGANIZATION MANAGER IMG US ORDERABLES Final R esult * VITAMIN D, 25 HYDROXY TOTAL (12/02/2024 10:47 AM CDT) VITAMIN D, 25 HYDROX 27.9 ng/mL 12/02/2024 12:19 PM CDT [facility] Blood Venipuncture / Unknown 12/02/2024 10:47 AM CDT 12/02/2024 11:12 AM CDT Narrative [facility] - 12/02/2024 12:19 PM CDT Published reference ranges for Vitamin D vary depending on time and place and method of testing, and on patient's age, sex, ethnicity and levels of other measured analytes such as parathormone, calcium and phosphorus. The result should be evaluated in conjunction with clinical findings and suspicions. [employer] of [employer] and Endocrine Clinical Practice Guidelines: Status Vitamin D levels (ng/mL) Deficient <=20 At risk of inadequacy 21-29 Sufficient 30-100 Centers of Disease Control and Prevention Guidelines: Status Vitamin D levels (ng/mL) Deficient <13 At risk of inadequacy 13-19 Sufficient 20-50 Possibly harmful >50 References: [employer], 2010 Dietary reference intakes for calcium and vitamin D. [place]: The National Academies Press. Betsy M, Ariadne N, Glen ZAMUDIO, et al., Evaluation, treatment, and prevention of Vitamin D deficiency: an Endocrinology Clinical Practice Guideline. JCEM 2011 96: 7 8443-7297. Kenan A, Desmond C, Tyra D, et al., Vitamin D Status: [place], 0174-3803, [facility] data brief, no. 59, MD [place]: National Center for Health Statistics. 2011. may N Vibhahl GLAUCOMA SPECIALIST, INDUSTRIAL ORGANIZATION MANAGER CHEMISTRY ORDERABLES Adelaide l Result [facility] [address] [place] [address] * THYROID SCREEN WITH REFLEX (12/02/2024 10:47 AM CDT) TSH 1.382 0.300 - 5.000 mIU/L 12/02/2024 12:07 PM CDT [facility] Blood Venipuncture / Unknown 12/02/2024 10:47 AM CDT 12/02/2024 11:12 AM CDT may N Oehl GLAUCOMA SPECIALIST, INDUSTRIAL ORGANIZATION MANAGER CHEMISTRY ORDERABLES Adelaide l Result [facility] [address] [place] [address] * CBC WITH AUTO DIFFERENTIAL (12/02/2024 10:47 AM CDT) Only the most recent of3 resultswithin the time period is included. WBC 6.33 4.00 - 12.00 10(3)/mcL 12/02/2024 11:24 AM CDT [facility] RBC 4.13 3.80 - 5.30 10(6)/mcL 12/02/2024 11:24 AM CDT [facility] HEMOGLOBIN (HGB) 12.7 12.0 - 15.8 g/dL 12/02/2024 11:24 AM CDT [facility] HEMATOCRIT (HCT) 38.8 36.0 - 47.0 % 12/02/2024 11:24 AM CDT [facility] MCV 93.9 82.0 - 96.0 fL 12/02/2024 11:24 AM CDT [facility] MCH 30.8 26.0 - 34.0 pg 12/02/2024 11:24 AM CDT [facility] MCHC 32.7 31.0 - 36.0 g/dL 12/02/2024 11:24 AM CDT [facility] PLATELET COUNT 285 140 - 440 10(3)/mcL 12/02/2024 11:24 AM CDT [facility] RDW 12.3 11.8 - 15.5 % 12/02/2024 11:24 AM CDT [facility] MPV 9.8 9.7 - 12.4 fL 12/02/2024 11:24 AM CDT [facility] NEUTROPHILS 58.9 47.0 - 73.0 % 12/02/2024 11:24 AM CDT [facility] LYMPHOCYTES 31.0 18.0 - 42.0 % 12/02/2024 11:24 AM CDT [facility] MONOCYTES 7.9 4.0 - 12.0 % 12/02/2024 11:24 AM CDT [facility] EOSINOPHILS 1.1 0.0 - 5.0 % 12/02/2024 11:24 AM CDT [facility] BASOPHILS 0.8 0.0 - 1.0 % 12/02/2024 11:24 AM CDT [facility] IMMATURE GRANULOCYTE 0.3 0.0 - 0.4 % 12/02/2024 11:24 AM CDT [facility] ABSOLUTE NEUTROPHILS 3.73 1.60 - 7.70 10(3)/mcL 12/02/2024 11:24 AM CDT [facility] ABSOLUTE LYMPHOCYTES 1.96 1.30 - 3.20 10(3)/mcL 12/02/2024 11:24 AM CDT [facility] ABSOLUTE MONOCYTES 0.50 0.20 - 1.00 10(3)/mcL 12/02/2024 11:24 AM CDT [facility] ABSOLUTE EOSINOPHIL 0.07 0.00 - 0.40 10(3)/mcL 12/02/2024 11:24 AM CDT [facility] ABSOLUTE BASOPHILS 0.05 0.00 - 0.10 10(3)/mcL 12/02/2024 11:24 AM CDT [facility] ABSOLUTE IMMATURE GRANULOCYTE 0.02 0.00 - 0.03 10 (3) mcL. 12/02/2024 11:24 AM CDT [facility] NRBC PER 100 WBC 0 12/03/19 11:24 AM CDT [facility] Blood Venipuncture / Unknown 12/02/2024 10:47 AM CDT 12/02/2024 11:14 AM CDT may N Delisa BRISCOE CNP HEMATOLOGY ORDERABLES Fin al Result Performing Organization Address City/[facility]/ZIP Co de Phone Number [facility] [address] [place] [address] * VITAMIN B12 (12/02/2024 10:47 AM CDT) VITAMIN B12 418 213 - 816 pg/mL 12/02/2024 12:19 PM CDT [facility] Blood Venipuncture / Unknown 12/02/2024 10:47 AM CDT 12/02/2024 11:12 AM CDT May N Delisa BRISCOE CNP CHEMISTRY ORDERABLES Adelaide l Result Performing Organization Address [facility] Co de Phone Number [facility] [address] [place] [address] * THYROXINE (T4) FREE (12/02/2024 10:47 AM CDT) T4 FREE 0.8 0.7 - 1.9 ng/dL 12/02/2024 12:08 PM CDT [facility] Blood Venipuncture / Unknown 12/02/2024 10:47 AM CDT 12/02/2024 11:12 AM CDT May N Delisa BRISCOE CNP CHEMISTRY ORDERABLES Adelaide l Result Performing Organization Address City/[facility]/ZIP Co de Phone Number [facility] [address] [place] [address] * LIPID PANEL (12/02/2024 10:47 AM CDT) CHOLESTEROL 175 <200 mg/dL 12/02/2024 11:54 AM CDT [facility] TRIGLYCERIDES 127 <150 mg/dL 12/02/2024 11:54 AM CDT [facility] HDL CHOLESTEROL 55 >40 mg/dL 11:54 AM CDT [facility] LDL 95 <130 mg/dL 12/02/2024 11:54 AM CDT [facility] VLDL 25 10 - 50 mg/dL 12/02/2024 11:54 AM CDT [facility] CHOL/HDL RATIO 3.2 0.0 - 4.4 12/02/2024 11:54 AM CDT [facility] NON-HDL CHOLESTEROL 120 <130 mg/dL 12/02/2024 11:54 AM CDT [facility] IS THE PATIENT REQUIRED TO BE FASTING? Yes 12/02/2024 11:54 AM CDT [facility] HAS THE PATIENT BEEN FASTING? Yes 12/02/2024 11:54 AM CDT [facility] Blood Venipuncture / Unknown 12/02/2024 10:47 AM CDT 12/02/2024 11:12 AM CDT Narrative [facility] - 12/02/2024 11:54 AM CDT NCEP [...] target levels for LDL cholesterol. may N Oehl GLAUCOMA SPECIALIST, INDUSTRIAL ORGANIZATION MANAGER CHEMISTRY ORDERABLES Adelaide l Result [facility] [address] [place] [address] * CMP (COMPREHENSIVE METABOLIC PANEL) (12/02/2024 10:47 AM CDT) Only the most recent of3 resultswithin the time period is included. Pathologist [facility] SODIUM 142 136 - 145 mmol/L 12/02/2024 11:54 AM CDT [facility] POTASSIUM 4.0 3.5 - 5.1 mmol/L 12/02/2024 11:54 AM CDT [facility] CHLORIDE 107 98 - 107 mmol/L 12/02/2024 11:54 AM CDT [facility] CO2, VENOUS 28 22 - 30 mmol/L 12/02/2024 11:54 AM CDT [facility] ANION GAP 11.0 <18.0 mmol/L 12/02/2024 11:54 AM CDT [facility] GLUCOSE 93 70 - 99 mg/dL 12/02/2024 11:54 AM CDT [facility] BUN 15 5 - 18 mg/dL 12/02/2024 11:54 AM CDT [facility] CREATININE, BLOOD 0.77 0.60 - 1.00 mg/dL 12/02/2024 11:54 AM CDT [facility] BUN/CREATININE RATIO 19 12 - 20 ratio 12/02/2024 11:54 AM CDT [facility] TOTAL PROTEIN 6.7 6.0 - 8.0 g/dL 12/02/2024 11:54 AM CDT [facility] ALBUMIN 4.1 3.5 - 5.0 g/dL 12/02/2024 11:54 AM T [facility] A/G RATIO 1.6 1.0 - 2.2 12/02/2024 11:54 AM CDT [facility] CALCIUM 9.3 8.7 - 10.5 mg/dL 12/02/2024 11:54 AM CDT [facility] T BILI 0.3 0.2 - 1.2 mg/dL 12/02/2024 11:54 AM CDT [facility] SGOT (AST) 15 <43 U/L 12/02/2024 11:54 AM CDT [facility] SGPT (ALT) 29 <56 U/L 12/02/2024 11:54 AM CDT [facility] ALKALINE PHOSPHATASE 80 40 - 150 U/L 12/02/2024 11:54 AM CDT [facility] IS THE PATIENT REQUIRED TO BE FASTING? No 12/02/2024 11:54 AM CDT [facility] GFR, ESTIMATED >60 >=60 12/02/2024 11:54 AM CDT [facility] Comment: Creatinine Clearance is the preferred criteria for selecting drug dose adjustments in renally impaired patients. The GFR is provided as additional pertinent clinical information. GFR is reported in mL/min/1.73 sq m. Calculation based on the 2020 Chronic Kidney Disease Epidemiology Collaboration (CKD-EPI) equation refit without adjustment for race. GFR, EST. >60 >=60 11:54 AM CDT [facility] Comment: Creatinine Clearance is the preferred criteria for selecting drug dose adjustments in renally impaired patients. The GFR is provided as additional pertinent clinical information. GFR is reported in mL/min/1.73 sq m. Calculation based on the 2009 Chronic Kidney Disease Epidemiology Collaboration (CKD-EPI). GFR, EST. NONAFRICAN >60 >=60 12/02/2024 11:54 AM CDT [facility] Comment: Creatinine Clearance is the preferred criteria for selecting drug dose adjustments in renally impaired patients. The GFR is provided as additional pertinent clinical information. GFR is reported in mL/min/1.73 sq m. Calculation based on the 2009 Chronic Kidney Disease Epidemiology Collaboration (CKD-EPI). Blood Venipuncture / Unknown 12/02/2024 10:47 AM CDT 12/02/2024 11:12 AM CDT us May N Oehl GLAUCOMA SPECIALIST, INDUSTRIAL ORGANIZATION MANAGER CHEMISTRY ORDERABLES Adelaide l Result [facility] [address] [place] [address] * RSV,SARS-COV-2,INFLUENZA A&B BY PCR (11/17/2024 9:55 AM CDT) FLU A Negative Negative, Error 11/17/2024 11:19 AM CDT [facility] FLU B Negative Negative 11/17/2024 11:19 AM CDT [facility] RESP SYNC VIRUS Negative Negative 11:19 AM CDT [facility] SARSCOV2 NOT DETECTED (Reference Range for this test is Not Detected) 11/17/2024 11:19 AM CDT [facility] Comment:This test was perfor med by a Reverse Repairer And Checker PCR Method. Nasal NASOPHARYNGEAL STRUCTURE / Unknown Non-Phlebotomy Collection / Unknown 11/17/2024 9:55 AM CDT 11/17/2024 10:36 AM CDT us Hugh Palencia DO MICROBIOLOGY - GENERAL ORDERABLES Final Result [facility] [address] [place] [address] * EKG 12 LEAD (11/17/2024 9:47 AM CDT) Only the most recent of2 resultswithin the time period is included. Ventricular Rate 61 BPM EXTERNAL EKG Atrial Rate 61 BPM EXTERNAL EKG P-R Interval 114 ms EXTERNAL EKG QRS Duration 90 ms EXTERNAL EKG Q-T Duration 398 ms EXTERNAL EKG QTC CALCULATION 400 ms EXTERNAL EKG P [place] 63 degrees EXTERNAL EKG R [place] 67 degrees EXTERNAL EKG T [place] 56 degrees EXTERNAL EKG 11/17/2024 9:47 AM CDT Impressions EXTERNAL EKG - 11/19/2024 8:18 PM CDT Normal sinus rhythm Nonspecific ST abnormality Abnormal ECG When compared with ECG of 15-NOV-2024 22:10, No significant change was found Confirmed by ALEX BAUTISTA ([id number]) on 11/19/2024 8:18:01 PM Narrative Procedure Note Alex Bautista MD - 11/19/2024 IMPRESSION: Normal sinus rhythm Nonspecific ST abnormality Abnormal ECG When compared with ECG of 15-NOV-2024 22:10, No significant change was found Confirmed by ALEX BAUTISTA ([id number]) on 11/19/2024 8:18:01 PM us Hugh Palencia DO IMG ECG ORDERABLES Adelaide l Result Performing Organization Address City/[facility]/ZIP Co de Phone Number EXTERNAL EKG * TROPONIN I, HIGH SENSITIVITY (HSTRP) (11/17/2024 9:45 AM CDT) Only the most recent of2 resultswithin the time period is included. [facility] TROPONIN I, HIGH SENSITIVITY- OLIVA <2.7 <=14.0 ng/L 11/17/2024 11:04 AM CDT [facility] Comment: High-sensitivity troponin I results are reported in ng/L making the result appear to be 1,000 times higher than the contemporary troponin I value which is reported in ng/ml. Results from [facility]. Blood Venipuncture / Unknown 11/17/2024 9:45 AM CDT 11/17/2024 10:37 AM CDT us Hugh Palencia DO CHEMISTRY ORDERABLES Fi nal Result Performing Organization Address [facility] Co de Phone Number [facility] [address] [place] [address] * Gold Top Tube (11/17/2024 9:45 AM CDT) Blood No Phlebotomy Charged / Unknown 11/17/2024 9:45 AM CDT 11/17/2024 10:38 AM CDT us Hugh Palencia DO CHEMISTRY ORDERABLES Fi nal Result Performing Organization Address City/[facility]/ZIP Co de Phone Number [facility] [address] [place] [address] * Blue Top Tube (11/17/2024 9:45 AM CDT) Blood No Phlebotomy Charged / Unknown 11/17/2024 9:45 AM CDT 11/17/2024 10:38 AM CDT us Hugh Palencia DO HEMATOLOGY ORDERABLES F inal Result [facility] [address] [place] [address] * EKG SCAN (11/17/2024 12:00 AM CDT) Only the most recent of2 resultswithin the time period is included. 11/17/2024 us Provider Scan IMG ECG ORDERABLES Final Result RESULTING AGENCY * XR CHEST SINGLE VIEW PORTABLE (11/15/2024 10:45 PM CDT) Anatomical Region Laterality Modality Chest N/A Computed Radiogr aphy 11/15/2024 10:4 5 PM CDT Impressions 11/16/2024 5:44 AM CDT IMPRESSION: 1. No acute abnormality identified. Narrative 11/16/2024 5:44 AM CDT DICTATING PHYSICIAN: Odin Alston EXAM: XR CHEST [...] reason for examination ChestPain REFERRING PROVIDER: BILLY ACGLE FINDINGS: Chest single view. Good inspiration. Normal heart size. Noairspace consolidation, pneumothorax, or pleural effusion. Nocomparison. IMPRESSION: 1. No acute abnormality identified. us Billy Cagle MD IMG DIAGNOSTIC ORDERABLES Final Result * Human Chorionic Gonadotropin Scrn Serum [id number] (11/15/2024 10:26 PM CDT) PREG-HCG Negative Negative 11/15/2024 11:28 PM CDT [facility] Blood Venipuncture / Unknown 11/15/2024 10:26 PM CDT 11/15/2024 11:06 PM CDT Billy Cagle MD CHEMISTRY ORDERABLES Adelaide l Result Performing Organization Address City/[facility]/ZIP Co de Phone Number [facility] [address] [place] [address] * Magnesium (11/15/2024 10:26 PM CDT) Pathologist [facility] MAGNESIUM 1.9 1.6 - 2.6 mg/dL 11/15/2024 11:28 PM CDT [facility] Comment: Specimen is hemolyzed. In vitro hemolysis could affect results. Clinical correlation advised. Blood Venipuncture / Unknown 11/15/2024 10:26 PM CDT 11/15/2024 11:06 PM CDT Billy Cagle MD CHEMISTRY ORDERABLES Adelaide l Result Performing Organization Address City/[facility]/ZIP Co de Phone Number [facility] [address] [place] [address] * Lipase (11/15/2024 10:26 PM CDT) Pathologist [facility] LIPASE 19 8 - 78 U/L 11/15/2024 11:28 PM CDT [facility] Blood Venipuncture / Unknown 11/15/2024 10:26 PM CDT 11/15/2024 11:06 PM CDT Billy Cagle MD CHEMISTRY ORDERABLES Adelaide l Result [facility] [address] [place] [address] from Last 3 Months Insurance MEDICAID [place] Care Teams Gas Torch Solderer Relationship Specialty Start Date End Date DelisaMay N, GLAUCOMA SPECIALIST, [place] [facility] [place] [address] [address] PCP - General Advanced Practice Nurse 10/21/24
--- OUTSIDE RECORDS SUMMARY | 2024-12-13 23:24 | XMS_ITS | Clinical Summary ---
Author Organization [facility] Address [address] [place] [address] Care Team Providers Care Welfare Supervisor Name Role Phone Mario Logan MD Primary Care Provider [phone] Source Comments [facility],non-owned Affiliates and Associated Physician Practices is amultiple site organization consisting of ambulatory clinics and hospital sitesin [place], [place], [place] and [place]. This disclosure is being madepursuant to the Care Everywhere program and may not contain all information available regarding this patient. Last updated 17.[facility] Allergies Active Allergy Reactions Criticality Noted Date [...] naloxone HCl (NARCAN) 4 MG/0.1ML nasal spray [place] 1 spray into the nose as needed [...] migh t be different from the original. [id number] Problem Noted Date Diagnosed Date Non-reactive NST [...] dose-270 mg from [facility]. Scanned Into media. 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 Gender Identity Not on file Sexual Orientation [...] P24 AG PANEL Routine 03/10/2019 1:24 PM BAKING FACTORY WORKER Supervision of high risk in second trimester HEPATITIS C ANTIBODY Routine 11/11/2018 12:07 PM CDT Supervision of high risk , antepartum from Last 3 Months or Most Recently Relevant to Health Maintenance Results * HIV-1 HIV-2 ANTIBODY + HIV P24 AG PANEL (03/10/2019 1:24 PM BAKING FACTORY WORKER) Pathologist [facility] HIV1/2 Ab + P24 Ag Non Reactive Non Reactive 03/10/2019 2:57 PM BAKING FACTORY WORKER [facility] Blood BLOOD SPECIMEN / Unknown Venipuncture / Unknown 03/10/2019 1:24 PM BAKING FACTORY WORKER 03/10/2019 1:49 PM BAKING FACTORY WORKER Narrative [facility] - 03/10/2019 2:57 PM BAKING FACTORY WORKER No Laboratory evidence of HIV infection. us Ivana Thomas INGOT SUPERVISOR-VEGETABLE [facility]INNER LAB - CHEMISTRY ORDERAB LES Final Result [facility] [address] [place] [address] * HEPATITIS C ANTIBODY (11/11/2018 12:07 PM CDT) HCV Antibody Screen Non Reactive Non Reactive 11/11/2018 1:55 PM CDT [facility] HCV S/C Ratio 0.19 0.00 - 0.79 11/11/2018 1:55 PM CDT [facility] Comment: Cjrnxc-yo-auasoy ratio (S/CO) <0.80: Non Reactive Blood BLOOD SPECIMEN / Unknown Venipuncture / Unknown 11/11/2018 12:07 PM CDT 11/11/2018 12:56 PM CDT Narrative [facility] - 11/11/2018 1:55 PM CDT Non Reactive - Antibodies to Hepatitis C virus (HCV) were not detected, result does not exclude early acute HCV infection. Helen Zurita INGOT SUPERVISOR-[facility] [facility] - CHEMISTRY ORDERA BLES Final Result Performing Organization Address City/State/[facility] Co de Phone Number [facility] [address] [place] [address] from Last 3 Months or Most Recently Relevant to Health Maintenance Insurance [facility] Advance Directives * Full Code (Latest [...] 11:00 AM 03/17/2019 7:31 PM Care Teams Welfare Supervisor Relationship Specialty Start Date End Date Mario Logan MD [address] [place] [address] PCP - General 05/24/19
--- OUTSIDE RECORDS SUMMARY | 2024-12-13 23:24 | XMS_ITS | Patient Health Record ---
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 Name Role Phone Alana Epps Primary Care Provider Kasey Ny Unavailable [phone] Ava Hernandez Unavailable [phone] Leandro Harris Unavailable [phone] Ana Verma Unavailable [phone] Braxton Costa Unavailable [phone] Allergies Allergen (clinical drug ingredient) Drug/Non Drug Allergy documented on EMR Reaction Allergy Type Onset Date Status Penicillin rash Drug Allergy Active Results Component Value Reference Range Notes QuantiFERON-TB Gold Plus (24 6785) Reviewed date:09/22/2024 02:30:29 PM Interpretation:Normal Performing Lab:[facility], [address] [place] [address], Phone - [phone], [facility] Notes/Report: QuantiFERON Incubation Incubation performed. QuantiFERON-TB Gold [...] PM Interpretation: Performing Lab: Notes/Report: SHERI 0.000 14 Panel Urine Drug Screen Reviewed date:09/20/2024 12:02:23 PM Interpretation: Performing Lab: Notes/Report: THC neg CHRISTOPHER neg MOP (OPI) neg AMP pos MET neg BAR neg BZO neg MDMA neg MTD neg OXY neg PCP neg BUP neg TCA neg FTY neg CBC With Differential/Platel et* Reviewed date:09/21/2024 02:19:40 PM Interpretation:Normal Performing Lab:[facility], [address], [place], Phone - [phone], [facility] Notes/Report: WBC 5.9 3.4-10.8 x10E3/uL RBC 4.83 [...] % Immature Grans (Abs) 0.0 0.0-0.1 x10E3/uL CMP 14 Comprehensive Metabol ic Panel* Reviewed date:09/21/2024 02:19:40 PM Interpretation:Normal Performing Lab:[facility], [address], Phone - [phone], [facility]/Report: Glucose 73 70-99 mg/dL BUN 14 [...] 0-40 IU/L ALT (SGPT) 13 0-32 IU/L HIV Screen *HIV 1, 2 Ab, p24 Ag (324946) Reviewed date:09/21/2024 02:19:40 PM Interpretation:Normal [facility]forming [facility], [address], Phone - [phone], Director [facility] Notes/Report: HIV Ab/p24 Ag Screen Non Reactive Non Reactive HIV-1/HIV-2 antibodies and HIV-1 p24 antigen were NOT detected. There is no laboratory evidence of HIV infection. HIV Negative Test, Urine Reviewed date:09/20/2024 03:01:25 PM Interpretation: Performing Lab: Notes/Report: Test, Urine neg Negative - Negative 14 Panel Urine Drug Screen Reviewed date:10/21/2024 [...] neg BUP pos TCA neg FTY neg Reason For Referral [...] Risk Notes Problem Benign paroxysmal positional vertigo (822221581) Benign paroxysmal vertigo, bilateral (H81.13) Active confirmed Problem Thyroid nodule (235447114) Thyroid nodule (E04.1) Active confirmed Problem Systolic murmur (21646232) Systolic murmur (I38) Active confirmed Problem Bipolar disorder (41897144) Bipolar 1 disorder, depressed (F31.9) Active confirmed Problem Stimulant abuse (315573346) Methamphetamine use disorder, mild, 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 confirmed Problem Opioid use disorder (0478253022) Opioid use disorder (F11.99) Active confirmed Problem Tobacco user (581090260) Nicotine dependence with current use (F17.200) Active confirmed Vital Signs Heart Rate 75 /min 11/15/2024 Temperature 97.9 degrees Fahrenheit 10/21/2024 Respiratory Rate 16 /min 11/15/2024 Oximetry 98 % 11/15/2024 Blood pressure diastolic 74 mm Hg 11/15/2024 Height 61 in 11/15/2024 Blood pressure systolic 110 mm Hg 11/15/2024 Weight 112.6 lbs 11/15/2024 BMI 21.27 kg/m2 11/15/2024 Encounters Encounter Location Date Provider Diagnosis [facility] [place] [address] 09/20/2024 Alana Epps Methamphetamine use disorder, mild, in early remission F15.10 ; Opioid use disorder F11.99 ; Routine general medical examination at a health care facility Z00.00 and Nicotine dependence with current use F17.[address] [place] [address] 09/20/2024 Ava Sandereckbooneedwin Methamphetamine use disorder, mild, in early remission F15.10 and Bipolar 1 disorder, depressed F31.[address] [place] [address] 09/21/2024 Kasey Ny Bipolar 1 disorder, depressed F31.9 [address] [address] [place] [address] 09/26/2024 Braxton Costa Thyroid nodule E04.1 ; Benign paroxysmal vertigo, bilateral H81.13 ; Systolic murmur I38 and Over weight E66.3 [address] [address] [place] [address] 10/21/2024 Alana Epps Opioid use disorder F11.99 [address] [address] [place] [address] 11/15/2024 Alana Epps Opioid use disorder F11.99 [address] [place] [address] 09/19/2024 Alana Epps [address] [address] [address] [place] [facility] [place] [address] 09/20/2024 Alana Epps [address] [address] [place] [address] 09/29/2024 Alana Epps Opioid use disorder F11.99 [address] [address] [place] [address] 10/13/2024 Alana Epps Assessments Encounter Date Diagnosis [...] or be administered own oral medications per [facility] protocols. Provided informed consent with understanding of [...] SUPR Programs: Based on an evaluation of [facility] Patient Placement Criteria, a recommendation for [...] self-administe r their own oral medications per [facility] Protocol. Plan Of Treatment Future Test Test Name Order Date Echo doppler exam 09/26/2024 Ultrasound : Thyroid 09/26/2024 Insurance Providers Payer Name Payer Address Payer Phone Subscriber Number Group Number Insured Name Patient Relationship to Insured Coverage Start Date Coverage End Date [employer] [address] [place] [address] [id number] Jaycee Rouse Self - patient is the insured 3 [employer]ICATION[employer] [address] [place] [address] [id number] Jaycee Rouse Self - patient is the insured 5 [employer] [address] [place] [address] [id number] Jaycee Rouse Self - patient is the insured 5 Medical (General) History Medical History History ICD Code Manic Depression Surgical History Surgery Date(Month/Year) 3 c-sections right hand has pins gall bladder removed Hospitalization History Reason Date(Month/Year) gateway, multiple times between 2023- 5 06/2024
--- OUTSIDE RECORDS SUMMARY | 2024-12-13 23:24 | XMS_ITS | Clinical Summary ---
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 Role Phone Christofer Stewart MD Primary [...] Type Department Care Team Description 10/21/2024 Telephone [facility] [place] [address] [place] [address] Christofer Stewart MD 10/17/2024 1:35 AM CDT - 10/17/2024 2:55 AM CDT Emergency [facility] Emergency Department [address] [place] [address] Jamarcus Irvin MD Kanumuri, Raghu, MD Chest pain, unspecified type (Primary Dx) Discharge Disposition: Discharge to home or self care 09/18/2024 2:48 PM CDT - 09/18/2024 3:17 PM CDT Emergency [facility] Emergency Department [address] [place] [address] Discharge Disposition: Left without being seen 09/18/2024 Documentation [facility] Warm Hand Off Program [address] [place], [place] [phone] Trisha Marie from Last 3 Months Surgical [...] on file Legal 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 Smoker TECHNIQUE: Frontal and lateral [...] Ml Foster M.D. SN: SN Report ID: [id number] Reading Location: [id number] Procedure Note Ml Foster MD - 10/17/2024 EXAM DESCRIPTION: XR CHEST PA LATERAL 2 VIEWS REASON FOR STUDY: cough Pt has flight of ideas and [facility] Smoker TECHNIQUE: Frontal and lateral [...] Ml Foster M.D. SN: SN Report ID: [id number] Reading Location: [id number] Tre Roche MD IMG XR PROCEDURES Final Result * ECG 12 lead (10/17/2024 12:07 AM CDT) 10/17/2024 12:0 7 AM CDT Narrative [facility] - 10/17/2024 6:47 AM CDT Vent Rate: 84 bpm RR Interval: 709 msec RI Interval: 111 msec QRS Duration: 96 msec QT Interval: 362 msec QTC Interval: 403 msec P-R-T Bronson: 80 - 73 - 64 degrees IMPRESSION: Baseline artifact, probable SINUS RHYTHM WITH SHORT RI INTERVAL LEFT ATRIAL ENLARGEMENT [-0.15mV P WAVE IN V1/V2] POSSIBLE LEFT VENTRICULAR HYPERTROPHY [VOLTAGE CRITERIA PLUS LAE OR QRS WIDENING] ABNORMAL ECG NO CHANGE FROM PREVIOUS TRACING NOTED Electronically Signed By: Francois Casarez MD Jamarcus Irvin MD ECG ORDERABLES Final Result [facility] * (ABNORMAL) Drugs of Abuse Screen, [...] LAB URINE ORDERABLES Final Res ult RAUL MSITH (NBA) [address] [place] [address] from Last 3 Months Insurance [facility] Advance Directives For more information, please contact: [phone] * Full Code (Latest Code Status on File) Date Activated Date Inactivated Comments 10/20/2023 12:17 PM 10/20/2023 8:58 PM Care Teams Distillery Worker General Relationship Specialty Start Date End Date Christofer Stewart MD PCP - General Family Medicine 06/23/23
[2024-12-13 23:28] VITALS: BP 116/76; PULSE 73; RESP 18; TEMP 36.9; O2SAT 99
[2024-12-13 23:44] LABS: Add Urine Microscopic? YES; Glucose Urine UA Negative (Negative); Leukocyte Esterase Ur Negative LEU/UL (Negative); Nitrate Urine Negative (Negative); Specific Grav Ur >= 1.030 (1.010-1.020)
[2024-12-13 23:50] LABS: Appearance Urine Sl Cloudy (Clear)
--- OUTSIDE RECORDS SUMMARY | 2024-12-13 23:50 | XMS_ITS | Clinical Summary ---
Author Organization [facility] Address [facility] [place] [address] Care Team Providers Care Desktop Publishing Operator Name Role Phone Francisco Javier Ivan MD Primary Care Provider [phone] Allergies Active Allergy Reactions Criticality Noted Date [...] CDT - 10/18/2024 10:30 PM CDT Emergency [facility] [place] [address] [place] [address] Sherwin Manzo MD Geldmacher, Kelly J, MD Medical Problem Discharge Disposition: [facility] 10/17/2024 2:59 PM CDT - 10/17/2024 8:00 PM CDT [facility] [address] [facility] [place] [address] Familia Carter MD Medical Problem Discharge Disposition: [...] Recorded In the past 12 months has [facility] [employer], gas, oil, or water [employer] threatened to shut off services in your [...] 8:20 PM Narrative 10/18/2024 8:22 PM CDT [place] [address] EXAMINATION: CT head without contrast HISTORY: Confusion. [...] Procedure Note Gaurav Damon DO - 10/18/2024 [place] [address] EXAMINATION: CT head without contrast HISTORY: Confusion. [...] URINE CLEAN CATCH 10/18/2024 4:30 PM CDT [facility] SPECIAL REQUESTS NO SPECIAL REQUEST 10/18/2024 4:30 PM CDT [facility] CULTURE RESULT POLYMICROBIAL GROWTH CONSISTENT WITH NORMAL GENITAL CAM. SUSCEPTIBILITIES NOT ROUTINELY PERFORMED. 10/19/2024 8:45 AM CDT [facility] URINE SPECIMEN OBTAINED BY CLEAN CATCH PROCEDURE / Unknown 10/18/2024 4:30 PM CDT 10/18/2024 8:10 PM CDT us Sherwin Manzo MD MICROBIOLOGY - GENERAL ORDERA BLES Final Result [facility] [address] [place] [address], [place] [phone] * RESPIRATORY PCR PANEL 2 (10/18/2024 12:33 PM CDT) Pathologist [facility] ADENOVIRUS PCR (RESP) NOT DETECTED NOT DETECTED 10/18/2024 1:50 PM CDT [facility] CORONAVIRUS 229E PCR (RESP) NOT DETECTED NOT DETECTED 10/18/2024 1:50 PM CDT [facility] CORONAVIRUS HKU1 PCR (RESP) NOT DETECTED NOT DETECTED 10/18/2024 1:50 PM CDT [facility] CORONAVIRUS NL63 PCR (RESP) NOT DETECTED NOT DETECTED 10/18/2024 1:50 PM CDT [facility] CORONAVIRUS OC43 PCR (RESP) NOT DETECTED NOT DETECTED 10/18/2024 1:50 PM CDT [facility] METAPNEUMOVIRUS PCR (RESP) NOT DETECTED NOT DETECTED 10/18/2024 1:50 PM CDT [facility] RHINOVIRUS/ENTEROV IRUS PCR (RESP) NOT DETECTED NOT DETECTED 10/18/2024 1:50 PM CDT [facility] INFLUENZA A PCR (RESP) NOT DETECTED NOT DETECTED 10/18/2024 1:50 PM CDT [facility] INFLUENZA B PCR (RESP) NOT DETECTED NOT DETECTED 10/18/2024 1:50 PM CDT [facility] PARAINFLUENZA 1 PCR (RESP) NOT DETECTED NOT DETECTED 10/18/2024 1:50 PM CDT [facility] PARAINFLUENZA 2 PCR (RESP) NOT DETECTED NOT DETECTED 10/18/2024 1:50 PM CDT [facility] PARAINFLUENZA 3 PCR (RESP) NOT DETECTED NOT DETECTED 10/18/2024 1:50 PM CDT [facility] PARAINFLUENZA 4 PCR (RESP) NOT DETECTED NOT DETECTED 10/18/2024 1:50 PM CDT [facility] RSV PCR (RESP) NOT DETECTED NOT DETECTED 10/18/2024 1:50 PM CDT [facility] B PARAPERTUSIS PCR (RESP) NOT DETECTED NOT DETECTED 10/18/2024 1:50 PM CDT [facility] BORDETELLA PERTUSSIS PCR (RESP) NOT DETECTED NOT DETECTED 10/18/2024 1:50 PM CDT [facility] CHLAMYDOPHILA PNEUMONIAE PCR (RESP) NOT DETECTED NOT DETECTED 10/18/2024 1:50 PM CDT [facility] MYCOPLASMA PNEUMONIAE PCR (RESP) NOT DETECTED NOT DETECTED 10/18/2024 1:50 PM CDT [facility] CORONAVIRUS SARS COV 2 PCR (RESP) NOT DETECTED NOT DETECTED 10/18/2024 1:50 PM CDT [facility] NASOPHARYNGEAL SWAB / Unknown 10/18/2024 12:33 PM CDT Sherwin Manzo MD MICROBIOLOGY - GENERAL ORDERA BLES Final Result Performing Organization Address City/[facility]/ZIP Co de Phone Number [facility] [address] [place] [address], [place] [phone] * TEST URINE (10/18/2024 11:00 AM CDT) URINE HCG TEST NEGATIVE 10/18/2024 11:11 AM CDT [facility] Comment: VERY DILUTE URINE SPECIMENS MAY NOT CONTAIN CONSTRUCTION JOB COST ESTIMATOR LEVELS OF HCG. IF IS STILL SUSPECTED, A SERUM HCG TEST IS RECOMMENDED. URINE SPECIMEN FROM URETHRA / Unknown 10/18/2024 11:00 AM CDT Sherwin Manzo MD URINE ORDERABLES Final Result Performing Organization Address [facility] Co de Phone Number [facility] [address] [place] [address], [place] [phone] * (ABNORMAL) URINALYSIS, AUTO, COMPLETE (10/18/2024 11:00 AM CDT) SPECIMEN TYPE URINE CLEAN CATCH 10/18/2024 11:01 AM CDT [facility] COLOR (U) DARK BROWN 10/18/2024 11:23 AM CDT [facility] TRANSPARENCY TURBID 10/18/2024 11:23 AM CDT [facility] SPECIFIC GRAVITY (U) 1.034(H) 1.001 - 1.030 10/18/2024 11:23 AM CDT [facility] U PH 5.5 5.0 - 9.0 10/18/2024 11:23 AM T [facility] LEUKOCYTES (U) 250(A) NEGATIVE 10/18/2024 11:23 AM T [facility] NITRITES NEGATIVE NEGATIVE 10/18/2024 11:23 AM T [facility] PROTEIN RANDOM (U) 100(H) <30 MG/DL 10/18/2024 11:23 AM T [facility] GLUCOSE (U) NORMAL NORMAL MG/DL 10/18/2024 11:23 AM T [facility] KETONES MG/DL (U) 60(A) NEGATIVE MG/DL 10/18/2024 11:23 AM T [facility] UROBILINOGEN NORMAL NORMAL MG/DL 10/18/2024 11:23 AM T [facility] BILIRUBIN (U) NEGATIVE NEGATIVE MG/DL 10/18/2024 11:23 AM T [facility] BLOOD (U) 3+(A) NEGATIVE 10/18/2024 11:23 AM T [facility] MUCUS MANY /LPF 10/18/2024 11:23 AM [facility] WBC/HPF >100(H) <6 /HPF 10/18/2024 11:23 AM T [facility] RBC/HPF >100(H) <6 /HPF 10/18/2024 11:23 AM T [facility] SQUAMOUS EPITHELIALS MODERATE /HPF 10/18/2024 11:23 AM [facility] URINE SPECIMEN OBTAINED BY CLEAN CATCH PROCEDURE / Unknown 10/18/2024 11:00 AM CDT us Sherwin Manzo MD URINE ORDERABLES Final Result [facility] [address] [place] [address], [place] [phone] * (ABNORMAL) DRUG SCREEN RAPID (10/18/2024 10:56 AM CDT) Only the most recent of2 resultswithin the time period is included. AMPHETAMINE (U) POSITIVE(A) NEGATIVE 10/19/19 11:27 AM CDT [facility] BARBITURATES SCREEN (U) POSITIVE(A) NEGATIVE 10/18/2024 11:27 AM CDT [facility] BENZODIAZEPINES SCREEN (U) NEGATIVE NEGATIVE 10/18/2024 11:27 AM CDT [facility] CANNABINOIDS SCREEN (U) NEGATIVE NEGATIVE 10/18/2024 11:27 AM CDT [facility] COCAINE METABOLITES (U) NEGATIVE NEGATIVE 10/18/2024 11:27 AM CDT [facility] METHADONE (U) NEGATIVE NEGATIVE 10/18/2024 11:27 AM CDT [facility] OPIATE SCREEN (U) NEGATIVE NEGATIVE 025 11:27 AM CDT [facility] PHENCYCLIDINE PCP (U) NEGATIVE NEGATIVE 10/18/2024 11:27 AM CDT [facility] Comment: NOTE: RESULTS OF THIS DRUG SCREEN SHOULD BE USED FOR MEDICAL PURPOSES ONLY AND NOT FOR LEGAL OR EMPLOYMENT PURPOSES. POSITIVE RESULTS ARE NOT CONFIRMED. MEDICATIONS CONTAINING EPHEDRINE MAY CAUSE FALSE POSITIVE AMPHETAMINE CALL [phone], LAB, TO REQUEST CONFIRMATION TESTING. IF CREATININE IS <40 mg/dL. RECOLLECTION IS SUGGESTED. AMPHETAMINE- 500 NG/ML BARBITURATE- 200 NG/ML BENZODIAZEPINES- 200 NG/ML THC- 50 NG/ML COCAINE- 150 NG/ML METHADONE- 300 NG/ML OPIATE- 300 MG/ML PCP- 25 NG/ML CREATININE (U) 337.0(H) 28 - 217 MG/DL 10/18/2024 11:27 AM CDT [facility] URINE SPECIMEN / Unknown 10/18/2024 10:56 AM CDT us Sherwin Manzo MD URINE ORDERABLES Final Result Performing Organization Address City/[facility]/ZIP Co de Phone Number [facility] [address] [place] [address], * (ABNORMAL) MAGNESIUM (10/18/2024 10:45 AM CDT) MAGNESIUM 2.5(H) 1.8 - 2.4 MG/DL 10/18/2024 12:06 PM CDT [facility] 10/18/2024 10:4 5 AM CDT Sherwin Manzo MD LABORATORY Final Result Performing Organization Address [facility] Co de Phone Number [facility] [address] [place] [address], * (ABNORMAL) SALICYLATE (10/18/2024 10:45 AM CDT) SALICYLATES 2.0(L) 2.8 - 20.0 MG/DL 10/18/2024 11:14 AM CDT [facility] Comment: THERAPEUTIC: 2.8-20.0 Toxic Level: >=30 10/18/2024 10:4 5 AM CDT us Sherwin Manzo MD LABORATORY Final Result Performing Organization Address City/[facility]/ZIP Co de Phone Number [facility] [address] [place] [address], * CK (CPK) (10/18/2024 10:45 AM CDT) CPK 88 21 - 215 U/L 10/18/2024 12:06 PM CDT [facility] 10/18/2024 10:4 5 AM CDT Sherwin Manzo MD LABORATORY Final Result [facility] [address] [place] [address], [place] [phone] * (ABNORMAL) COMPREHENSIVE METABOLIC PANEL (10/18/2024 10:17 AM CDT) GLUCOSE 83 70 - 99 MG/DL 10/18/2024 11:12 AM CDT [facility] BUN 18 7 - 18 MG/DL 10/18/2024 11:12 AM CDT [facility] CREATININE S/P/B 0.90 0.55 - 1.02 MG/DL 10/18/2024 11:12 AM CDT [facility] SODIUM S/P/B 140 136 - 145 MMOL/L 10/18/2024 11:12 AM CDT [facility] POTASSIUM S/P/B 4.0 3.5 - 5.1 MMOL/L 10/18/2024 11:12 AM CDT [facility] CHLORIDE S/P/B 111 97 - 115 MMOL/L 10/18/2024 11:12 AM CDT [facility] CO2 20.9(L) 21 - 32 MMOL/L 10/18/2024 11:12 AM CDT [facility] CALCIUM S/P/B 9.4 8.5 - 10.1 MG/DL 10/18/2024 11:12 AM CDT [facility] BILIRUBIN TOTAL S/P/B 0.6 0.2 - 1.2 MG/DL 10/18/2024 11:12 AM T [facility] Comment: THIS ASSAY IS NOT RECOMMENDED FOR PATIENTS UNDERGOING TREATMENT WITH ELTROMBOPAG DUE TO THE POTENTIAL FOR FALSELY ELEVATED RESULTS. TOTAL PROTEIN S/P/B 7.3 6.4 - 8.2 G/DL 10/18/2024 11:12 AM T [facility] ALBUMIN S/P/B 3.7 3.4 - 5.0 G/DL 10/18/2024 11:12 AM T [facility] AST 21 15 - 37 U/L 10/18/2024 11:12 AM [facility] ALT 23 14 - 55 U/L 10/18/2024 11:12 AM [facility] ALKALINE PHOSPHATASE S/P/B 99 50 - 136 U/L 10/18/2024 11:12 AM [facility] ANION GAP 8.1 2 - 10 MMOL/L 10/18/2024 11:12 AM [facility] BUN CREATININE RATIO 20.0 - 10/18/2024 11:12 AM [facility] A/G RATIO 1.0 1.0 - 2.0 RATIO 10/18/2024 11:12 AM [facility] GFR ESTIMATE 82(L) >90 ML/MIN/1.7 3 M2 10/18/2024 11:12 AM [facility] Comment: NOTE: eGFR is not calculated [...] us Sherwin Manzo MD LABORATORY Final Result [facility] [address] [place] [address], [place] [phone] * (ABNORMAL) CBC W/DIFF AUTOMATED (10/18/2024 10:17 AM CDT) Only the most recent of2 resultswithin the time period is included. Pathologist [facility] WBC 8.83 4.5 - 11.0 x10'3/uL 10/18/2024 10:34 AM CDT [facility] RBC 4.34 4.20 - 5.40 x10'6/uL 10/18/2024 10:34 AM CDT [facility] HGB 13.1 12.0 - 16.0 G/DL 10/18/2024 10:34 AM CDT [facility] HCT 41.2 38.0 - 48.0 % 10/18/2024 10:34 AM CDT [facility] MCV 94.9 81.0 - 99.0 FL 10/18/2024 10:34 AM CDT [facility] MCH 30.2 27.0 - 31.0 PG 10/18/2024 10:34 AM CDT [facility] MCHC 31.8(L) 32.0 - 36.0 G/DL 10/18/2024 10:34 AM CDT [facility] RDW 12.5 11.5 - 14.5 % 10/18/2024 10:34 AM CDT [facility] PLT 432(H) 130 - 400 x10'3/uL 10/18/2024 10:34 AM CDT [facility] MPV 10.1 9.3 - 12.2 FL 10/18/2024 10:34 AM CDT [facility] DIFFERENTIAL TYPE AUTOMATED DIFFERENTIAL 10/18/2024 10:34 AM CDT [facility] NEUTROPHILS % 68.8 % 10/18/2024 10:34 AM CDT [facility] LYMPHOCYTES % 23.9 % 10/18/2024 10:34 AM CDT [facility] MONOCYTES % 6.2 % 10/18/2024 10:34 AM CDT [facility] EOSINOPHILS 0.2 % 10/18/2024 10:34 AM CDT [facility] BASOPHILS 0.7 % 10/18/2024 10:34 AM CDT [facility] IMMATURE GRANS % 0.2 % 10/19/19 10:34 AM CDT [facility] ABS. NEUTROPHILS 6.07 1.80 - 7.70 x10'3/uL 10/18/2024 10:34 AM CDT [facility] ABS. LYMPHOCYTES 2.11 1.00 - 4.80 x10'3/uL 10/18/2024 10:34 AM CDT [facility] ABS. MONOCYTES 0.55 0.24 - 0.86 x10'3/uL 10/18/2024 10:34 AM T [facility] ABS. EOSINOPHILS 0.02(L) 0.04 - 0.36 x10'3/uL 10/18/2024 10:34 AM CDT [facility] ABS. BASOPHILS 0.06 0.01 - 0.08 x10'3/uL 10/18/2024 10:34 AM T [facility] ABS. IMMATURE GRANULOCYTES 0.02 0.00 - 0.49 x10'3/uL 10/18/2024 10:34 AM T [facility] 10/18/2024 10:1 7 AM CDT Sherwin Manzo MD LABORATORY Final Result Performing Organization Address City/[facility]/ZIP Co de Phone Number [facility] [address] [place] [phone], * THYROID STIM HORMONE, TSH (10/18/2024 10:17 AM CDT) TSH 1.380 0.358 - 3.74 uIU/ML 10/18/2024 11:12 AM CDT [facility] Comment: HIGH DOSES OF BIOTIN MAY INTERFERE WITH THIS TEST RESULT. CORRELATION TO CLINICAL HISTORY AND PRESENTATION RECOMMENDED. 10/18/2024 10:1 7 AM CDT Sherwin Manzo MD LABORATORY Final Result Performing Organization Address [facility] Co de Phone Number [facility] [address] [place] [address], * ETHANOL (10/18/2024 10:17 AM CDT) Only the most recent of2 resultswithin the time period is included. ALCOHOL S/P/B <0.003 <0.003 G/DL 10/18/2024 11:12 AM CDT [facility] 10/18/2024 10:1 7 AM CDT Sherwin Manzo MD LABORATORY Final Result [facility] [address] [place] [phone], * (ABNORMAL) ACETAMINOPHEN (10/18/2024 10:17 AM CDT) ACETAMINOPHEN S/P/B <2.0(L) 10.0 - 30.0 MCG/ML 10/18/2024 11:12 AM CDT [facility] Comment: THERAPEUTIC: 10-30 TOXIC: >200 10/18/2024 10:1 7 AM CDT Sherwin Manzo MD LABORATORY Final Result [facility] [address] [place] [address], * ECG 12 lead (10/18/2024 10:08 AM CDT) Only the most recent of2 resultswithin the time period is included. 10/18/2024 10:0 8 AM CDT Narrative [facility] ([facility]) RAD - 10/18/2024 6:18 PM CDT [address] Test Date: 2024-10-18 Pat Name: JJ ROUSE Department: 41 Room: EXAM19 Gender: Female Ware Tester: [id number] : 1980 Requested By: SHERWIN MANZO Order Number: [id number] Reading MD: Vinod Orozco Measurements Intervals [place] Rate: 67 P: 70 [place]: 121 QRS: 79 QRSD: 90 T: 72 QT: 387 QTc: 410 Interpretive Statements SINUS RHYTHM WITH SINUS ARRHYTHMIA Compared to ECG 10/17/2024 15:31:23 No significant changes No ischemic changes Preliminary EKG Interpretation by Sherwin Manzo M.D Procedure Note Vinod Orozco MD - 10/18/[address] Test Date: 2024-10-18 Pat Name: JJ ROUSE Department: 41 Room: EXAM19 Gender: Female Ware Tester: [id number] : 1980 Requested By: SHERWIN MANZO Order Number: [id number] Reading MD: Vinod Orozco Measurements Intervals [place] Rate: 67 P: 70 [place]: 121 QRS: 79 QRSD: 90 T: 72 QT: 387 QTc: 410 Interpretive Statements SINUS RHYTHM WITH SINUS ARRHYTHMIA Compared to ECG 10/17/2024 15:31:23 No significant changes No ischemic changes Preliminary EKG Interpretation by Sherwin Manzo M.D us Sherwin Manzo MD ECG ORDERABLES Final Result [facility] ([facility]) RAD * (ABNORMAL) BASIC METABOLIC PANEL (10/17/2024 4:12 PM CDT) SODIUM S/P/B 140 136 - 145 MMOL/L 10/17/2024 5:06 PM CDT [facility] POTASSIUM S/P/B 3.5 3.5 - 5.1 MMOL/L 10/17/2024 5:06 PM CDT [facility] CHLORIDE S/P/B 103 98 - 107 MMOL/L 10/17/2024 5:06 PM CDT [facility] CO2 27.0 21.0 - 32.0 MMOL/L 10/17/2024 5:06 PM CDT [facility] GLUCOSE 98 70 - 99 MG/DL 10/17/2024 5:06 PM CDT [facility] Comment: FASTING GLUCOSE 100 TO 125 MG/DL IS CONSISTENT WITH IMPAIRED FASTING GLUCOSE. FASTING GLUCOSE >125 MG/DL IS CONSISTENT WITH DIABETES. RANDOM GLUCOSE >200 MG/DL WITH HYPERGLYCEMIC SYMPTOMS IS CONSISTENT WITH DIABETES. PER ADA GUIDELINES BUN 18 6 - 24 MG/DL 10/17/2024 5:06 PM CDT [facility] CREATININE S/P/B 1.18(H) 0.55 - 1.02 MG/DL 10/17/2024 5:06 PM CDT [facility] CALCIUM S/P/B 10.0 8.4 - 10.5 MG/DL 10/17/2024 5:06 PM CDT [facility] ANION GAP 10.0 5.0 - 15.0 MMOL/L 10/17/2024 5:06 PM CDT [facility] OSMOLALITY (CALC) 292 MOSM/KG 025 5:06 PM CDT [facility] Comment:REFERENCE RANGE NOT ESTABLISHED GFR ESTIMATE 59(L) >89 ML/MIN/1. 73 M2 10/17/2024 5:06 PM CDT [facility] GFR NOTES GFR REFERENCE S: 10/17/2024 5:06 PM CDT [facility] Comment: THE ESTIMATED GFR IS [...] <15 ml/min/1.73 m2 10/17/2024 4:12 PM CDT aFmilia Carter MD LABORATORY Final Result [facility] [place] [address], * CORONAVIRUS (COVID-19) ANTIGEN (10/17/2024 4:05 PM CDT) CORONAVIRUS ANTIGEN IA NEGATIVE NEGATIVE 10/17/2024 5:06 PM CDT [facility] Comment: NEGATIVE RESULTS DO NOT [...] SPECIMEN TYPE NASAL 10/17/2024 4:43 PM CDT [facility] NASAL NASAL STRUCTURE / Unknown 10/17/2024 4:05 PM CDT Familia Carter MD MICROBIOLOGY - GENERAL ORDERAB LES Final Result Performing Organization Address City/[facility]/ZIP Co de Phone Number [facility] [address] [place] [address], [place] [phone] * HEPATITIS PANEL,ACUTE (10/13/2023 3:24 AM CDT) HEPATITIS B SURFACE AG NON-REACT VARGHESE NON-REACT VARGHESE 10/13/2023 1:41 PM CDT [facility] Comment:HBsAg NOT DETECTED. HEP B CORE IGM NON-REACT VARGHESE NON-REACT VARGHESE 10/13/2023 1:41 PM CDT [facility] Comment: IgM ANTI HBc NOT DETECTED. DOES NOT EXCLUDE THE POSSIBILITY OF EXPOSURE TO OR INFECTION WITH HBV. NO RETEST REQUIRED. HIGH DOSES OF BIOTIN MAY INTERFERE WITH THIS TEST RESULT. CORRELATION TO CLINICAL HISTORY AND PRESENTATION RECOMMENDED. HAV IGM NON-REACT VARGHESE NON-REACT VARGHEES 10/13/2023 1:41 PM CDT [facility] Comment: IgM ANTI HAV NOT DETECTED. DOES NOT EXCLUDE THE POSSIBILITY OF EXPOSURE TO OR INFECTION WITH HAV. LEVELS OF IgM ANTI HAV MAY BE BELOW THE CUTOFF IN EARLY INFECTION. HEPATITIS C AB NON-REACT VARGHESE NON-REACT VARGHESE 10/13/2023 1:42 PM CDT [facility] Comment: ANTIBODIES TO HCV NOT DETECTED. DOES NOT EXCLUDE THE POSSIBILITY OF EXPOSURE TO HCV. 10/13/2023 3:24 AM CDT Tenisha Cheema MD LABORATORY Final Result [facility] [address] [place], [place] [address] [phone] [id number] from Last 3 Months or Most Recently Relevant to Health Maintenance Insurance [employer] Advance Directives Documents on File Type Date Recorded Patient Placement Director Expl anation Advance Directives and Living Will 05/10/2015 12:00 AM ADVANCED DIRECTIVES Advance Directives and Living Will 08/06/2013 12:00 AM ADVANCED DIRECTIVES Advance Directives and Living Will 12/28/2012 12:00 AM ADVANCED DIRECTIVES * Full Code (Latest Code Status on File) Date Activated Date Inactivated Comments 10/13/2023 5:53 AM 10/14/2023 10:50 AM Care Teams Desktop Publishing Operator Relationship Specialty Start Date End Date Francisco Javier Ivan MD [address] [address] PCP - General FAMILY PRACTICE 06/05/24
--- OUTSIDE RECORDS SUMMARY | 2024-12-13 23:50 | XMS_ITS | Encounter Summary ---
Author Organization [facility] Address [facility] [place] [address] Care Team Providers Care Building And Grounds Supervisor Name Role Phone None, Provider Primary Care Provider Francisco Javier Santana MD Primary Care Provider [phone] Encounter Details Date Type Department Care Team (Late st Contact Info) Description 07/31/2018 Abstract [facility] CONVERSION [address] [place] [address] , Generic Conversion, Social History [...] documented as of this encounter Care Teams Building And Grounds Supervisor Relationship Specialty Start Date End Date None, Provider, PCP - General UNKNOWN PHYSICIAN SPECIALTY 07/13/23 06/04/24 Francisco Javier Ivan MD [address] [place] [id number] PCP - General FAMILY PRACTICE 06/05/24 documented as of this encounter
--- OUTSIDE RECORDS SUMMARY | 2024-12-13 23:50 | XMS_ITS | Clinical Summary ---
Author Organization [facility] [employer] Address [address] [address] Care Team Providers Care Executive Assistant To President Name Role Phone Mario Logan MD Primary Care Provider Source Comments [facility] [employer],non-owned Affiliates and Associated Physician Practices is amultiple site organization consisting of ambulatory clinics and hospital sitesin [place], [place], [place] and [place]. This disclosure is being madepursuant to the Care Everywhere program and may not contain all information available regarding this patient. Last updated 17.[facility] [employer] Allergies Active Allergy Reactions Criticality Noted Date [...] migh t be different from the original. [id number] Problem Noted Date Diagnosed Date Non-reactive NST [...] 02/28/2014 Overview (05/05/2019): Confirmed dose-270 mg from [facility]. Scanned Into media. Previously used heroin and [...] on file Legal Sex Female 7:09 AM ASSISTANT PROGRAM MANAGER Gender Identity Not on file Sexual [...] P24 AG PANEL Routine 03/10/2019 1:24 PM ASSISTANT PROGRAM MANAGER Supervision of high risk in second trimester HEPATITIS C ANTIBODY Routine 11/11/2018 12:07 PM CDT Supervision of high risk , antepartum from Last 3 Months or Most Recently Relevant to Health Maintenance Results * HIV-1 HIV-2 ANTIBODY + HIV P24 AG PANEL (03/10/2019 1:24 PM ASSISTANT PROGRAM MANAGER) Pathologist [facility] HIV1/2 Ab + P24 Ag Non Reactive Non Reactive 03/10/2019 2:57 PM ASSISTANT PROGRAM MANAGER [facility] Blood BLOOD SPECIMEN / Unknown Venipuncture / Unknown 03/10/2019 1:24 PM ASSISTANT PROGRAM MANAGER 03/10/2019 1:49 PM ASSISTANT PROGRAM MANAGER Narrative [facility] - 03/10/2019 2:57 PM ASSISTANT PROGRAM MANAGER No Laboratory evidence of HIV infection. us Ivana Thomas GRISTMILLER-EQUAL OPPORTUNITY REPRESENTATIVE LAB - CHEMISTRY ORDERAB LES Final Result [facility] [address] [place] [address] * HEPATITIS C ANTIBODY (11/11/2018 12:07 PM CDT) HCV Antibody Screen Non Reactive Non Reactive 11/11/2018 1:55 PM CDT [facility] HCV S/C Ratio 0.19 0.00 - 0.79 11/11/2018 1:55 PM CDT [facility] Comment: Eeuxgz-be-eivxsf ratio (S/CO) <0.80: Non Reactive Blood BLOOD SPECIMEN / Unknown Venipuncture / Unknown 11/11/2018 12:07 PM CDT 11/11/2018 12:56 PM CDT Narrative [facility] - 11/11/2018 1:55 PM CDT Non Reactive - Antibodies to Hepatitis C virus (HCV) were not detected, result does not exclude early acute HCV infection. Helen Zurita GRISTMILLER-EQUAL OPPORTUNITY REPRESENTATIVE LAB - CHEMISTRY ORDERA BLES Final Result Performing Organization Address City/State/[facility] Co de Phone Number [facility] [address] [place] [address] from Last 3 Months or Most Recently Relevant to Health Maintenance Insurance [facility] Advance Directives * Full Code (Latest [...] 11:00 AM 03/17/2019 7:31 PM Care Teams Executive Assistant To President Relationship Specialty Start Date End Date Mario Logan MD [address] [place] [address] PCP - General 05/24/19
--- OUTSIDE RECORDS SUMMARY | 2024-12-13 23:50 | XMS_ITS | Clinical Summary ---
Author Organization [facility] Address [address], [address] [address] Phone Care Team Providers Care Radio Commentator Name Role Phone DelisaMay N ENGLISH HORN PLAYER, STUNT DRIVER Primary Care Provider [phone] Allergies Active Allergy Reactions Criticality Noted Date [...] Description 12/13/2024 1:00 PM CDT Hospital Encounter [facility] [address] [place] [address] Óscar Doss, ENGLISH HORN PLAYER, STUNT DRIVER 12/05/2024 Results Follow-Up [facility] [address] [place] [address] Wendie Hercules, ENGLISH HORN PLAYER, STUNT DRIVER US THYROID, VITAMIN D, 25 HYDROXY TOTAL, VITAMIN B12, Additional followed-up results: 5 12/02/2024 10:49 AM CDT - 12/02/2024 11:59 PM CDT [facility] [address] [place] [address] Wendie Hercules, ENGLISH HORN PLAYER, STUNT DRIVER Discharge Disposition: Discharged to home or Selfcare 12/02/2024 Travel 11/21/2024 2:30 PM CDT Office Visit [facility] [address] [place] [address] Wendie Hercules, ENGLISH HORN PLAYER, STUNT DRIVER Depression with anxiety (Primary Dx); At risk for sexually transmitted disease due to unprotected sex Discharge Disposition: Discharged to home or Selfcare 11/21/2024 Travel 11/17/2024 9:39 AM CDT - 11/17/2024 11:17 AM CDT Emergency [facility] Emergency [address] [place] [address] Hugh Palencia DO Viral syndrome Discharge Disposition: Discharged to home or Selfcare 11/17/2024 Telephone [facility] [address] [place] [address] Wendie Hercules APRN, STUNT DRIVER 11/17/2024 Nurse Triage [facility] [address] [place] [address] Wendie Hercules, ENGLISH HORN PLAYER, STUNT DRIVER Breathing Problem 11/16/2024 2:15 PM CDT Office Visit [facility] [address] [place] [address] Óscar Doss, ENGLISH HORN PLAYER, STUNT DRIVER Chest discomfort (Primary Dx) Discharge Disposition: Discharged to home or Selfcare 11/16/2024 Documentation Only [facility] Mammography [address] [place] [address] Wendie Hercules APRN, STUNT DRIVER 11/15/2024 10:03 PM CDT - 11/16/2024 12:06 AM CDT Emergency [facility] Emergency [address] [place] [address] Billy Cagle MD Chest pain, unspecified type Discharge Disposition: Discharged to home or Selfcare 11/15/2024 Travel 11/11/2024 Telephone [facility] [address] [place] [address] Wendie Hercules, LUIS FELIPE, STUNT DRIVER Need Order 10/21/2024 2:00 PM CDT Office Visit [facility] [address] [place] [address] Wendie Hercules, ENGLISH HORN PLAYER, STUNT DRIVER Encounter for preventative adult health care exam with abnormal findings (Primary Dx); History of methadone use; Anxiety and depression; Nodule of left lobe of thyroid gland; Vaginal pain; Encounter for screening mammogram for breast cancer Discharge Disposition: Discharged to home or Selfcare 10/21/2024 Travel 10/21/2024 Telephone [facility] [address] [place] [address] Provider, None New Patient from Last 3 [...] st Contact Info) Description 01/03/2025 2:30 PM DRAMA TEACHER Office Visit [facility] [address] [place] [address] Delisa, Wendie N, ENGLISH HORN PLAYER, STUNT DRIVER [address] [facility] [address] [place] [address] Health Maintenance Due Date Last Done Comments [...] CDT DICTATING PHYSICIAN: Mickey Mccarty D.O. - [facility] US THYROID, 12/02/2024 11:09 AM [...] (2) with internal vascularity. Echogenicity: Hyperechoic (1). Mfhurk-yzuw-Tbha: no (0). Margins: Smooth (0). Echogenic foci: None (0). ACR TI-RADS Classification: TR 3 (3 points) Procedure Note Mickey Mccarty, - 12/03/2024 DICTATING PHYSICIAN: Mickey Mccarty D.O. - [facility] US THYROID, 12/02/2024 11:09 AM CLINICAL [...] solid (2) with internalvascularity. Echogenicity: Hyperechoic (1). Kwfnnq-rlew-Hyeo: no (0). Margins: Smooth (0). Echogenic foci: [...] the 2017 [employer]. us Wendie N Oehl ENGLISH HORN PLAYER, STUNT DRIVER IMG US ORDERABLES Final R esult * [...] in conjunction with clinical findings and suspicions. [place] [employer] and Endocrine Clinical Practice Guidelines: Status Vitamin D levels (ng/mL) Deficient <=20 At risk of inadequacy 21-29 Sufficient 30-100 Centers of Disease Control and Prevention Guidelines: Status Vitamin D levels (ng/mL) Deficient <13 At risk of inadequacy 13-19 Sufficient 20-50 Possibly harmful >50 References: [place] [employer], 2010 Dietary reference intakes for calcium and vitamin D. [place]: The National Academies Press. Betsy M, Ariadne N, Glen ZAMUDIO, et al., Evaluation, treatment, and prevention of Vitamin D deficiency: an Endocrinology Clinical Practice Guideline. JCEM 2011 96: 7 5295-6438. Kenan A, Desmond C, Tyra D, et al., Vitamin D Status: [place], 4585-4839, [facility] data brief, no. 59, MD [place]: National Center for Health Statistics. 2011. may N Vibhahl ENGLISH HORN PLAYER, STUNT DRIVER CHEMISTRY ORDERABLES Adelaide l Result [facility] [address] [place] [address] * THYROID SCREEN WITH REFLEX (12/02/2024 10:47 AM CDT) TSH 1.382 0.300 - 5.000 mIU/L 12/02/2024 12:07 PM CDT [facility] Blood Venipuncture / Unknown 12/02/2024 10:47 AM CDT 12/02/2024 11:12 AM CDT may N Oehl ENGLISH HORN PLAYER, STUNT DRIVER CHEMISTRY ORDERABLES Adelaide l Result [facility] [address] [place] [address] * CBC WITH AUTO DIFFERENTIAL (12/02/2024 10:47 [...] - 34.0 pg 12/02/2024 11:24 AM CDT [facility] MCHC 32.7 31.0 - 36.0 g/dL [...] - 0.4 % 12/02/2024 11:24 AM CDT [facility] ABSOLUTE NEUTROPHILS 3.73 1.60 - 7.70 10(3)/mcL 12/02/2024 11:24 AM CDT [facility] ABSOLUTE LYMPHOCYTES 1.96 1.30 - 3.20 10(3)/mcL 12/02/2024 11:24 AM CDT [facility] ABSOLUTE MONOCYTES 0.50 0.20 - 1.00 10(3)/mcL 12/02/2024 11:24 AM CDT [facility] ABSOLUTE EOSINOPHIL 0.07 0.00 - 0.40 10(3)/mcL 12/02/2024 11:24 AM CDT [facility] ABSOLUTE BASOPHILS 0.05 0.00 - 0.10 10(3)/mcL 12/02/2024 11:24 AM CDT [facility] ABSOLUTE IMMATURE GRANULOCYTE 0.02 0.00 - 0.03 10 (3) mcL. 12/02/2024 11:24 AM CDT [facility] NRBC PER 100 WBC 0 12/03/19 11:24 AM CDT [facility] Blood Venipuncture / Unknown 12/02/2024 10:47 AM CDT 12/02/2024 11:14 AM CDT may N Delisa BRISCOE CNP HEMATOLOGY ORDERABLES Fin al Result Performing Organization Address City/[facility]/ZIP Co de Phone Number [facility] [address] [place] [address] * VITAMIN B12 (12/02/2024 10:47 AM CDT) VITAMIN B12 418 213 - 816 pg/mL 12/02/2024 12:19 PM CDT [facility] Blood Venipuncture / Unknown 12/02/2024 10:47 AM CDT 12/02/2024 11:12 AM CDT May N Delisa BRISCOE CNP CHEMISTRY ORDERABLES Adelaide l Result Performing Organization Address [facility] Co de Phone Number [facility] [address] [place] [address] * THYROXINE (T4) FREE (12/02/2024 10:47 AM CDT) T4 FREE 0.8 0.7 - 1.9 ng/dL 12/02/2024 12:08 PM CDT [facility] Blood Venipuncture / Unknown 12/02/2024 10:47 AM CDT 12/02/2024 11:12 AM CDT May N Delisa BRISCOE CNP CHEMISTRY ORDERABLES Adelaide l Result Performing Organization Address City/[facility]/ZIP Co de Phone Number [facility] [address] [place] [address] * LIPID PANEL (12/02/2024 10:47 AM CDT) CHOLESTEROL 175 <200 mg/dL 12/02/2024 11:54 AM CDT [facility] TRIGLYCERIDES 127 <150 mg/dL 12/02/2024 11:54 AM CDT [facility] HDL CHOLESTEROL 55 >40 mg/dL 11:54 AM CDT [facility] LDL 95 <130 mg/dL 12/02/2024 11:54 AM CDT [facility] VLDL 25 10 - 50 mg/dL 12/02/2024 11:54 AM CDT [facility] CHOL/HDL RATIO 3.2 0.0 - 4.4 12/02/2024 11:54 AM CDT [facility] NON-HDL CHOLESTEROL 120 <130 mg/dL 12/02/2024 11:54 AM CDT [facility] IS THE PATIENT REQUIRED TO BE FASTING? Yes 12/02/2024 11:54 AM CDT [facility] HAS THE PATIENT BEEN FASTING? Yes 12/02/2024 11:54 AM CDT [facility] Blood Venipuncture / Unknown 12/02/2024 10:47 AM CDT 12/02/2024 11:12 AM CDT Narrative [facility] - 12/02/2024 11:54 AM CDT NCEP [...] levels for LDL cholesterol. may N Oehl ENGLISH HORN PLAYER, STUNT DRIVER CHEMISTRY ORDERABLES Adelaide l Result [facility] [address] [place] [address] * CMP (COMPREHENSIVE METABOLIC PANEL) (12/02/2024 10:47 AM CDT) Only the most recent of3 resultswithin the time period is included. Pathologist [facility] SODIUM 142 136 - 145 mmol/L 12/02/2024 11:54 AM CDT [facility] POTASSIUM 4.0 3.5 - 5.1 mmol/L 12/02/2024 11:54 AM CDT [facility] CHLORIDE 107 98 - 107 mmol/L 12/02/2024 11:54 AM CDT [facility] CO2, VENOUS 28 22 - 30 mmol/L 12/02/2024 11:54 AM CDT [facility] ANION GAP 11.0 <18.0 mmol/L 12/02/2024 11:54 AM CDT [facility] GLUCOSE 93 70 - 99 mg/dL 12/02/2024 11:54 AM CDT [facility] BUN 15 5 - 18 mg/dL 12/02/2024 11:54 AM CDT [facility] CREATININE, BLOOD 0.77 0.60 - 1.00 mg/dL 12/02/2024 11:54 AM CDT [facility] BUN/CREATININE RATIO 19 12 - 20 ratio 12/02/2024 11:54 AM CDT [facility] TOTAL PROTEIN 6.7 6.0 - 8.0 g/dL 12/02/2024 11:54 AM CDT [facility] ALBUMIN 4.1 3.5 - 5.0 g/dL 12/02/2024 11:54 AM T [facility] A/G RATIO 1.6 1.0 - 2.2 12/02/2024 11:54 AM CDT [facility] CALCIUM 9.3 8.7 - 10.5 mg/dL 12/02/2024 11:54 AM CDT [facility] T BILI 0.3 0.2 - 1.2 mg/dL 12/02/2024 11:54 AM CDT [facility] SGOT (AST) 15 <43 U/L 12/02/2024 11:54 AM CDT [facility] SGPT (ALT) 29 <56 U/L 12/02/2024 11:54 AM CDT [facility] ALKALINE PHOSPHATASE 80 40 - 150 U/L 12/02/2024 11:54 AM CDT [facility] IS THE PATIENT REQUIRED TO BE FASTING? No 12/02/2024 11:54 AM CDT [facility] GFR, ESTIMATED >60 >=60 12/02/2024 11:54 AM CDT [facility] Comment: Creatinine Clearance is the preferred criteria for selecting drug dose adjustments in renally impaired patients. The GFR is provided as additional pertinent clinical information. GFR is reported in mL/min/1.73 sq m. Calculation based on the 2020 Chronic Kidney Disease Epidemiology Collaboration (CKD-EPI) equation refit without adjustment for race. GFR, EST. >60 >=60 11:54 AM CDT [facility] Comment: Creatinine Clearance is the preferred criteria for selecting drug dose adjustments in renally impaired patients. The GFR is provided as additional pertinent clinical information. GFR is reported in mL/min/1.73 sq m. Calculation based on the 2009 Chronic Kidney Disease Epidemiology Collaboration (CKD-EPI). GFR, EST. NONAFRICAN >60 >=60 12/02/2024 11:54 AM CDT [facility] Comment: Creatinine Clearance is the preferred criteria for selecting drug dose adjustments in renally impaired patients. The GFR is provided as additional pertinent clinical information. GFR is reported in mL/min/1.73 sq m. Calculation based on the 2009 Chronic Kidney Disease Epidemiology Collaboration (CKD-EPI). Blood Venipuncture / Unknown 12/02/2024 10:47 AM CDT 12/02/2024 11:12 AM CDT us May N Oehl ENGLISH HORN PLAYER, STUNT DRIVER CHEMISTRY ORDERABLES Adelaide l Result [facility] [address] [place] [address] * RSV,SARS-COV-2,INFLUENZA A&B BY PCR (11/17/2024 9:55 [...] test was perfor med by a Reverse Track Subway Repair Supervisor PCR Method. Nasal NASOPHARYNGEAL STRUCTURE / Unknown Non-Phlebotomy Collection / Unknown 11/17/2024 9:55 AM CDT 11/17/2024 10:36 AM CDT us Hugh Palencia DO MICROBIOLOGY - GENERAL ORDERABLES Final Result [facility] [address] [place] [address] * EKG 12 LEAD (11/17/2024 9:47 AM CDT) Only the most recent of2 resultswithin the time period is included. Ventricular Rate 61 BPM EXTERNAL EKG Atrial Rate 61 BPM EXTERNAL EKG P-R Interval 114 ms EXTERNAL EKG QRS Duration 90 ms EXTERNAL EKG Q-T Duration 398 ms EXTERNAL EKG QTC CALCULATION 400 ms EXTERNAL EKG P Curlew 63 degrees EXTERNAL EKG R Curlew 67 degrees EXTERNAL EKG T [place]lew 56 degrees EXTERNAL EKG 11/17/2024 9:47 AM CDT Impressions EXTERNAL EKG - 11/19/2024 8:18 PM CDT Normal sinus rhythm Nonspecific ST abnormality Abnormal ECG When compared with ECG of 15-NOV-2024 22:10, No significant change was found Confirmed by ALEX BAUTISTA ([id number]) on 11/19/2024 8:18:01 PM Narrative Procedure Note Alex Bautista MD - 11/19/2024 IMPRESSION: Normal sinus rhythm Nonspecific ST abnormality Abnormal ECG When compared with ECG of 15-NOV-2024 22:10, No significant change was found Confirmed by ALEX BAUTISTA ([id number]) on 11/19/2024 8:18:01 PM us Hugh Palencia DO IMG ECG ORDERABLES Adelaide l Result Performing Organization Address City/[facility]/ZIP Co de Phone Number EXTERNAL EKG * TROPONIN I, HIGH SENSITIVITY (HSTRP) (11/17/2024 9:45 AM CDT) Only the most recent of2 resultswithin the time period is included. [facility] TROPONIN I, HIGH SENSITIVITY- OLIV[place] <2.7 <=14.0 ng/L 11/17/2024 11:04 AM CDT [facility] Comment: High-sensitivity troponin I results are reported in ng/L making the result appear to be 1,000 times higher than the contemporary troponin I value which is reported in ng/ml. Results from [facility]. Blood Venipuncture / Unknown 11/17/2024 9:45 AM CDT 11/17/2024 10:37 AM CDT us Hugh Palencia DO CHEMISTRY ORDERABLES Fi nal Result Performing Organization Address [facility] Co de Phone Number [facility] [address] [place] [address] * Gold Top Tube (11/17/2024 9:45 AM CDT) Blood No Phlebotomy Charged / Unknown 11/17/2024 9:45 AM CDT 11/17/2024 10:38 AM CDT us Hugh Palencia DO CHEMISTRY ORDERABLES Fi nal Result Performing Organization Address City/[facility]/ZIP Co de Phone Number [facility] [address] [place] [address] * Blue Top Tube (11/17/2024 9:45 AM CDT) Blood No Phlebotomy Charged / Unknown 11/17/2024 9:45 AM CDT 11/17/2024 10:38 AM CDT us Hugh Palencia DO HEMATOLOGY ORDERABLES F inal Result [facility] [address] [place] [address] * EKG SCAN (11/17/2024 12:00 AM CDT) [...] Result * Human Chorionic Gonadotropin Scrn Serum [id number] (11/15/2024 10:26 PM CDT) PREG-HCG Negative Negative 11/15/2024 11:28 PM CDT [facility] Blood Venipuncture / Unknown 11/15/2024 10:26 PM CDT 11/15/2024 11:06 PM CDT Billy Cagle MD CHEMISTRY ORDERABLES Adelaide l Result Performing Organization Address City/[facility]/ZIP Co de Phone Number [facility] [address] [place] [address] * Magnesium (11/15/2024 10:26 PM CDT) Pathologist [facility] MAGNESIUM 1.9 1.6 - 2.6 mg/dL 11/15/2024 11:28 PM CDT [facility] Comment: Specimen is hemolyzed. In vitro hemolysis could affect results. Clinical correlation advised. Blood Venipuncture / Unknown 11/15/2024 10:26 PM CDT 11/15/2024 11:06 PM CDT Billy Cagle MD CHEMISTRY ORDERABLES Adelaide l Result Performing Organization Address City/[facility]/ZIP Co de Phone Number [facility] [address] [place] [address] * Lipase (11/15/2024 10:26 PM CDT) Pathologist [facility] LIPASE 19 8 - 78 U/L 11/15/2024 11:28 PM CDT [facility] Blood Venipuncture / Unknown 11/15/2024 10:26 PM CDT 11/15/2024 11:06 PM CDT Billy Cagle MD CHEMISTRY ORDERABLES Adelaide l Result [facility] [address] [place] [address] from Last 3 Months Insurance MEDICAID [place] Care Teams Radio Commentator Relationship Specialty Start Date End Date DelisaMay N, ENGLISH HORN PLAYER, [place] 2 [facility] [address] [address] PCP - General Advanced Practice Nurse 10/21/24
[2024-12-13 23:51] LABS: Pregnancy On Board Control Positive
[2024-12-14 00:12] LABS: Hematocrit 33.3 % (35.0-49.0); Hemoglobin 10.8 g/dL (12.0-15.0); Immature Granulocyte Percent A 0.2 % (0.0-0.0); Lymphocytes Absolute Auto 2.23 K/mm3 (1.10-4.50); Mean Corpuscular HGB Conc 32.4 g/dL (32-36); Mean Corpuscular Hemoglobin 30.0 pg (27.0-31.0); Mean Corpuscular Volume 92.5 fL (78.0-102.0); Nucleated Red Blood Cells Absolute Auto 0.00 K/mm3 (0.00-0.00); Nucleated Red Blood Cells Perc 0.0 % (0-0.0); Platelet Count Result 294 K/mm3 (150-420); Red Blood Count 3.60 M/mm3 (4.20-5.40); White Blood Count 8.0 K/mm3 (4.8-10.8)
--- NOTE | 2024-12-14 00:24 | PC.NURSE ---
Pt given gown to change for imaging. Warm blanket provided. Side rail up 1/2 call light in reach. Warm blanket provided. Pt updated. No new needs voiced at this time.
[2024-12-14 00:27] LABS: Alanine Aminotransferase 14 U/L (6-35); Albumin Level 3.8 g/dL (3.5-5.1); Alkaline Phosphatase 64 U/L (38-126); Anion Gap 6 mmol/L (4-12); Aspartate Amino Transferase 23 U/L (14-36); Bilirubin,Total 0.4 mg/dL (0.2-1.3); Blood Urea Nitrogen 8 mg/dL (7-17); Calcium 9.1 mg/dL (8.4-10.2); Carbon Dioxide 27 mmol/L (22-30); Chloride 105 mmol/L (98-107); Estimated CRCL calculation 65 ml/min; Estimated Glomerular Filt Rate > 60; Glucose 112 mg/dL (65-110); Osmolality Calculated 285 mOsm/kg (285-295); Potassium 4.0 mmol/L (3.4-5.0); Sodium 138 mmol/L (137-145); Total Protein 6.7 g/dL (6.3-8.2)
--- NOTE | 2024-12-14 01:40 | PC.NURSE ---
Pt provided with warm blanket. Pt update on expected timeframe of results. No additional needs voiced at this time. Side rails up x 2. Call light in reach.
[2024-12-14 02:38] VITALS: BP 92/66; PULSE 64; RESP 14; TEMP 36.8; O2SAT 98
== END 2024-12-14 02:42 | disposition home or self-care (01) ==
PROVIDERS: Emergency Provider Emergency Medicine
DX: M54.50 Low back pain, unspecified (principal); F17.210 Nicotine dependence, cigarettes, uncomplicated
CPT/HCPCS: 36415; 74176; 80053; 81001; 81025; 85025; 99284

== ENCOUNTER 2024-12-15 11:03 | Emergency (ER) | payer OTHER, SELFPAY ==
--- OUTSIDE RECORDS SUMMARY | 2024-09-28 05:40 | XMS_ITS ---
Author Organization [facility] Address [address] [place] [address] Care Team Providers Care Drawer In Dobby Loom Name Role Phone Alana Epps Primary Care Provider Ana Verma [phone] REASON FOR VISIT new patient Social History Sex Assigned At : Social History Observation Description Sex Assigned At Female Encounters Encounter Location Date Provider Diagnosis [facility] [address] [place] [address] 09/28/2024 Ana Verma Plan Of Treatment No Information Progress Notes * Jaycee SLATERDOB:1980 (44 yo F)Acc No.[id number]:09/28/2024 UNLOCKED PROGRESS NOTE Patient: Jaycee AYALA Provider: ALCON Nash, PHOTO PRINT SPECIALIST, PMHNP-BC :1980 A ge:44 Y S ex:Female Date:09/28/2024 Address:[address] [facility] Pcp:Alana Epps Subjective: * Chief Complaints: * 1 . New patient. * Medical History: Objective: * Vitals: Assessment: Plan: * Treatment: * * Electronic signature of Anton Verma on 12/15/2024 at 12:15 PM CDT Sign off status: Pending * Provider: Peg Verma MSN, PHOTO PRINT SPECIALIST, PMHNP-BC Date: 0 09/28/2024 Generated for Printing/Faxing/eTransmitting on: 1 12:15 PM CDT
--- OUTSIDE RECORDS SUMMARY | 2024-09-29 04:20 | XMS_ITS ---
Author Organization [facility] Address [address] [place] [address] Care Team Providers Care Treadle Cut Off Saw Operator Name Role Phone Alana Epps Primary Care Provider [phone] Leandro Harris [phone] REASON FOR VISIT new patient Social History Sex Assigned At : Social History Observation Description Sex Assigned At Female Encounters Encounter Location Date Provider Diagnosis [address] [place] [address] 09/29/2024 Leandro Harris Plan Of Treatment No Information Progress Notes * JENNYFERJaycee SCHULZDOB:1980 (44 yo F)Acc No.[id number]:09/29/2024 UNLOCKED PROGRESS NOTE Patient: Jaycee AYALA Provider: Sasha Harris DNP, PMHNP-BC :1980 A ge:44 Y S ex:Female Date:09/29/2024 [facility] [facility] Pcp:Alana Epps Subjective: * Chief Complaints: * 1 . New patient. * Medical History: Objective: * Vitals: Assessment: Plan: * Treatment: * * Electronic signature of Kanu Harris APRN, [id number] on 12/15/2024 at 12:15 PM CDT Sign off status: Pending * Provider: Sasha Harris DNP, PMHNP-BC Date: 0 09/29/2024 Generated for Roland felder/Karina/eTransmitting on: 1 12:15 PM CDT
--- OUTSIDE RECORDS SUMMARY | 2024-10-06 03:20 | XMS_ITS ---
Author Organization [facility] Address [address] [place] [address] Care Team Providers Care Bale Stacker Name Role Phone Alana Epps Primary Care Provider [phone] REASON FOR VISIT 1 week f/u Social History Sex Assigned At : Social History Observation Description Sex Assigned At Female Encounters Encounter Location Date Provider Diagnosis [place] [address] [facility] [place] [address] 10/06/2024 Alana Epps Plan Of Treatment No Information Progress Notes * Jaycee ROUSEDOB:1980 (44 yo F)Acc No.[id number]:10/06/2024 UNLOCKED PROGRESS NOTE Patient: Jaycee AYALA Provider: Sasha Epps MSN, INCOME TAX ADJUSTER, STRATEGIC PLANNING MANAGER-C :1980 A ge:44 Y S ex:Female Date:10/06/2024 [facility] [facility] Subjective: * Chief Complaints: * 1 . 1 week f/u. * Medical History: Objective: * Vitals: Assessment: Plan: * Treatment: * Care Plan Details* * Electronic signature of Guera Epps APRN, [id number] on 12/15/2024 at 12:15 PM CDT Sign off status: Pending * Provider: Sasha Epps MSN, INCOME TAX ADJUSTER, STRATEGIC PLANNING MANAGER-C Date: 0 10/06/2024 Generated for Roland felder/Karina/eTransmitting on: 1 12:15 PM CDT
--- NOTE | ~2024-12-15 | XR_ITS ---
EXAMINATION: XR chest 1V portable 12/15/2024 11:24 INDICATION: Chest pain PROCEDURE: AP portable chest COMPARISON: Comparison to multiple prior studies sequentially, with oldest reviewed study dated 05/22/2024. FINDINGS: The lungs are clear. The cardiomediastinal silhouette is within normal limits. There are no pleural effusions. There is no pneumothorax suspected. IMPRESSION: 1: NO ACUTE CARDIOPULMONARY DISEASE. Reviewed, dictated and finalized at location O.
[2024-12-15 11:04] VITALS: BP 161/74; PULSE 75; RESP 16; TEMP 36.4; O2SAT 100
--- NOTE | 2024-12-15 11:11 | ECG_ITS ---
Test Date: 2024-12-15 11:13:10 Measurements Intervals [place]es Rate: 68 P: 79 IN: 125 QRS: 80 QRSD: 98 T: 72 QT: 386 QTc: 412 Interpretive Statements SINUS RHYTHM WITH SINUS ARRHYTHMIA MINIMAL Q WAVES- INF/LAT LEADS BORDERLINE ECG Compared to ECG 10/17/2024 23:43:30 No significant changes Electronically Signed On 12-15-2024 11:26:13 CDT by Sonny Velasco D.O.
[2024-12-15 11:24] LABS: Hematocrit 37.7 % (35.0-49.0); Hemoglobin 12.1 g/dL (12.0-15.0); Immature Granulocyte Percent A 0.2 % (0.0-0.0); Lymphocytes Absolute Auto 1.31 K/mm3 (1.10-4.50); Mean Corpuscular HGB Conc 32.1 g/dL (32-36); Mean Corpuscular Hemoglobin 29.7 pg (27.0-31.0); Mean Corpuscular Volume 92.6 fL (78.0-102.0); Nucleated Red Blood Cells Absolute Auto 0.00 K/mm3 (0.00-0.00); Nucleated Red Blood Cells Perc 0.0 % (0-0.0); Platelet Count Result 366 K/mm3 (150-420); Red Blood Count 4.07 M/mm3 (4.20-5.40); White Blood Count 6.3 K/mm3 (4.8-10.8)
[2024-12-15 11:35] LABS: Alanine Aminotransferase 16 U/L (6-35); Albumin Level 4.6 g/dL (3.5-5.1); Alkaline Phosphatase 78 U/L (38-126); Anion Gap 10 mmol/L (4-12); Aspartate Amino Transferase 24 U/L (14-36); Bilirubin,Total 0.7 mg/dL (0.2-1.3); Blood Urea Nitrogen 7 mg/dL (7-17); Calcium 9.6 mg/dL (8.4-10.2); Carbon Dioxide 25 mmol/L (22-30); Chloride 105 mmol/L (98-107); Estimated CRCL calculation 67 ml/min; Estimated Glomerular Filt Rate > 60; Glucose 93 mg/dL (65-110); Osmolality Calculated 288 mOsm/kg (285-295); Potassium 4.0 mmol/L (3.4-5.0); Sodium 140 mmol/L (137-145); Total Protein 8.8 g/dL (6.3-8.2)
[2024-12-15 11:46] LABS: Troponin I < 0.012 ng/mL (0.000-0.034)
--- NOTE | 2024-12-15 11:53 | ED.GENADULT ---
HPI - General Adult General Chief complaint: Unspecified Stated complaint: pt states she was poisoned Time Seen by Provider: 12/15/24 11:11 Source: patient Mode of arrival: ambulatory Limitations: no limitations History of Present Illness HPI narrative: This is a 44-year-old female with a history of drug abuse currently on Suboxone presents with chest discomfort reproducible with palpation with no shortness of breath does have some anxiety with no fever chills no abdominal pain no dysuria no flank pain no nausea vomiting no diarrhea constipation. Onset (ago): day(s) Severity: mild Severity scale (1-10): 4 Quality: aching Pain Consistency: intermittent Related Data Home Medications ?Medication ?Instructions ?Recorded ?Confirmed ?Last Taken ?Type aripiprazole 5 mg tablet (Abilify) 5 mg PO DAILY 05/17/24 12/15/24 Unknown History lorazepam 0.5 mg tablet (Ativan) 0.5 mg PO Q6H PRN anxiety 05/17/24 12/15/24 Unknown History buprenorphine 8 mg-naloxone 2 mg 1 tablet sublingual DAILY 12/15/24 Unknown History sublingual tablet Allergies Allergy/AdvReac Type Severity Reaction Status Date / Time Penicillins Allergy Severe Difficulty Verified 12/15/24 11:06 Swallowing codeine AdvReac Swelling Verified 12/15/24 11:06 Review of Systems Review of Systems: All systems reviewed & are unremarkable except as noted in HPI and below PMFSH Past Medical History Medical History Drug abuse Tooth decay Surgical History Surgical History History of x3 Family History Family History Father No problems noted. Father Lung cancer Mother Heart disease Social History Social History Years smoked: 20 Smoking status: Current every day smoker Tobacco type: cigarettes Second hand tobacco smoke exposure: Yes Alcohol intake: former Substance use: former Substance use type: methamphetamine Gender identity (if verbalized by the patient): Female Spiritual care concerns: No Exam Const: General: cooperative, healthy appearing, comfortable and no acute distress HENMT: Head: normal to inspection Eyes: General: appearance normal, both eyes and all related structures Neck: Neck: normal visual inspection, full ROM, no lymphadenopathy and no meningeal signs Chest: Chest palpation & inspection: normal inspection of the chest Other: Reproducible chest pain with palpation Resp: Effort & Inspection: able to speak in complete sentences Auscultation: clear to auscultation bilaterally Cardio: Jugular venous distension: no JVD Palpation: normal PMI Rate: regular rate Rhythm: regular rhythm Heart sounds: S1 normal heart sound present and S2 normal heart sound present GI: Inspection: normal to inspection Percussion: Yes normal to percussion Auscultation: normal bowel sounds : General: Yes bimanual renal exam normal bilaterally Skin: General skin exam: normal color and no rashes or lesions noted Neuro: General: oriented to person, oriented to place, oriented to time, patient oriented x3 and gait normal Extrem: General: normal to inspection, full ROM and capillary refill normal Psych: Affect: Anxious affect present Course Course Emergency Course: Medical decision making narrative: The patient was evaluated by myself in the emergency department. History was obtained from the patient who is an independent historian and physical exam performed witnessed by the nurse. External records/medical reviewed at this time. Repeat assessment performed patient doing well on repeat exam EKG performed shows normal sinus rhythm X-rays of chest performed shows no acute cardiopulmonary abnormality Labs performed which showed no acute abnormalities. Patient was given Tylenol 1g for a reproducible reproducible chest pain. Symptoms have improved since arrival to the ED repeat vitals blood pressure is improved to 130 9/92. Patient agrees with discussion and after shared medical decision making and agrees with discharge. All questions were answered. Advised patient to follow-up with her primary within the next 3 to 5 days. Vital Signs Vital signs: Vital Signs Temperature 36.4 C L 12/15/24 11:04 Pulse Rate 75 12/15/24 11:04 Respiratory Rate 16 12/15/24 11:04 Blood Pressure 161/74 H 12/15/24 11:04 Pulse Oximetry 100 12/15/24 11:04 Oxygen Delivery Room Air 12/15/24 11:04 Temperature 36.4 C L 12/15/24 11:04 Pulse Rate 75 12/15/24 11:04 Respiratory Rate 16 12/15/24 11:04 Blood Pressure 161/74 H 12/15/24 11:04 Pulse Oximetry 100 12/15/24 11:04 Oxygen Delivery Room Air 12/15/24 11:04 Medical Decision Making Vital Signs Vital Signs: Vital Signs Temperature 36.4 C L 12/15/24 11:04 Pulse Rate 75 12/15/24 11:04 Respiratory Rate 16 12/15/24 11:04 Blood Pressure 161/74 H 12/15/24 11:04 Pulse Oximetry 100 12/15/24 11:04 Oxygen Delivery Room Air 12/15/24 11:04 Temperature 36.4 C L 12/15/24 11:04 Pulse Rate 75 12/15/24 11:04 Respiratory Rate 16 12/15/24 11:04 Blood Pressure 161/74 H 12/15/24 11:04 Pulse Oximetry 100 12/15/24 11:04 Oxygen Delivery Room Air 12/15/24 11:04 Lab Data 12/15/24 11:19 12/15/24 11:19 Labs: Lab Results 12/15/24 Range/Units 11:19 WBC 6.3 (4.8-10.8) K/mm3 RBC 4.07 L (4.20-5.40) M/mm3 Hgb 12.1 (12.0-15.0) g/dL Hct 37.7 (35.0-49.0) % MCV 92.6 (78.0-102.0) fL MCH 29.7 (27.0-31.0) pg MCHC 32.1 (32-36) g/dL RDW 12.7 (11.6-14.4) % Plt Count 366 (150-420) K/mm3 MPV 9.4 (9.2-11.8) fl Immature Gran % (Auto) 0.2 H (0.0-0.0) % Neut % (Auto) 71.5 H (50.0-70.0) % Lymph % (Auto) 20.8 (18.0-42.0) % [place] % (Auto) 6.7 (2.0-11.0) % Eos % (Auto) 0.3 L (1.0-6.0) % Baso % (Auto) 0.5 (0.0-1.0) % Lymph # (Auto) 1.31 (1.10-4.50) K/mm3 [place] # (Auto) 0.42 (0.10-0.90) K/mm3 Eos # (Auto) 0.02 (0.02-0.50) K/mm3 Baso # (Auto) 0.03 (0.00-0.10) K/mm3 Abs Immat Gran (auto) 0.01 H (0.00-0.00) K/mm3 Absolute Neuts (auto) 4.50 (1.70-7.20) K/mm3 Absolute Nucleated RBC 0.00 (0.00-0.00) K/mm3 Nucleated RBC % 0.0 (0-0.0) % D-Dimer 0.20 (0.19-0.50) mg/L Sodium 140 (137-145) mmol/L Potassium 4.0 (3.4-5.0) mmol/L Chloride 105 (98-107) mmol/L Carbon Dioxide 25 (22-30) mmol/L Anion Gap 10 (4-12) mmol/L BUN 7 (7-17) mg/dL Creatinine 0.71 (0.7-1.0) mg/dL Estim Creat Clear Calc 67 ml/min Estimated GFR > 60 (59 - ) Glucose 93 (65-110) mg/dL Calculated Osmolality 288 (285-295) mOsm/kg Calcium 9.6 (8.4-10.2) mg/dL Total Bilirubin 0.7 (0.2-1.3) mg/dL AST 24 (14-36) U/L ALT 16 (6-35) U/L Alkaline Phosphatase 78 (38-126) U/L Troponin I < 0.012 (0.000-0.034) ng/mL Total Protein 8.8 H (6.3-8.2) g/dL Albumin 4.6 (3.5-5.1) g/dL Critical Care Time Critical Care Time Critical Care Time: No Discharge Plan Discharge Clinical Impression: Acute costochondritis, Atypical chest pain Patient Disposition: Home Condition: Stable Instructions: Antibiotic Form, Costochondritis (ED) Additional Instructions: Advised patient to continue her current medical regimen, and follow with primary within next 3 to 5 days for further evaluation treatment. Can take Tylenol or Motrin as needed for chest discomfort. Patient Language: Dutch Prescriptions: No Action aripiprazole [Abilify] 5 mg tablet 5 mg PO DAILY lorazepam [Ativan] 0.5 mg tablet 0.5 mg PO Q6H PRN (Reason: anxiety) bupropion HCl [Wellbutrin SR] 150 mg tablet sustained-release 12 hr 150 mg PO QAM Qty: 30 0RF buprenorphine-naloxone 8-2 mg tablet, sublingual 1 tablet sublingual DAILY Follow-up/Referrals: PHYSICIAN,MINGLER OPERATOR [Primary Care Provider, Internal Medicine] Time of Disposition: 11:58
--- OUTSIDE RECORDS SUMMARY | 2024-12-15 12:15 | XMS_ITS | Patient Health Record ---
Author Organization [facility] Address [address] [place] [address] Care Team Providers Care Heavy Truck Technician Name Role Phone Alana Epps Primary Care Provider [phone] Kasey Ny Unavailable [phone] Ava Hernandez Unavailable [phone] Leandro Harris Unavailable [phone] Ana Verma Unavailable [phone] Braxton Costa Unavailable [phone] Allergies Allergen (clinical drug ingredient) Drug/Non Drug Allergy documented on EMR Reaction Allergy Type Onset Date Status Penicillin rash Drug Allergy Active Results Component Value Reference Range Notes 14 Panel Urine Drug Screen Reviewed date:10/21/2024 03:53:19 PM Interpretation: Performing Lab: Notes/Report: THC neg CHRISTOPHER neg MOP (OPI) neg AMP neg MET neg BAR pos BZO neg MDMA neg MTD neg OXY neg PCP neg BUP neg TCA neg FTY neg QuantiFERON-TB Gold Plus (07 4092) Reviewed date:09/22/2024 02:30:29 PM Interpretation:Normal Performing Lab:[facility], [address] [facility], Phone - [phone], Director - PhDRicchiuti Notes/Report: QuantiFERON Incubation Incubation performed. QuantiFERON-TB Gold [...] >10.00 14 Panel Urine Drug Screen Reviewed date:11/15/2024 10:46:03 AM Interpretation: Performing Lab: Notes/Report: THC neg CHRISTOPHER neg MOP (OPI) neg AMP neg MET neg BAR neg BZO neg MDMA neg MTD neg OXY neg PCP neg BUP pos TCA neg FTY neg 14 Panel Urine Drug Screen Reviewed date:09/20/2024 12:02:23 PM Interpretation: Performing Lab: Notes/Report: THC neg CHRISTOPHER neg MOP (OPI) neg AMP pos MET neg BAR neg BZO neg MDMA neg MTD neg OXY neg PCP neg BUP neg TCA neg FTY neg CBC With Differential/Platel et* Reviewed date:09/21/2024 02:19:40 PM Interpretation:Normal Performing Lab:[facility] [place], [address] [facility], [place], Phone - [phone], Director - Eryn Notes/Report: WBC 5.9 3.4-10.8 [...] Panel* Reviewed date:09/21/2024 02:19:40 PM Interpretation:Normal Performing Lab:[facility], [address] [facility], Phone - [phone], Director - [facility] Notes/Report: Glucose 73 70-99 mg/dL BUN [...] Screen *HIV 1, 2 Ab, p24 Ag (317559) Reviewed date:09/21/2024 02:19:40 PM Interpretation:Normal Performing Lab:[facility], [address] [facility], Phone - [phone], Director - [facility] Notes/Report: HIV Ab/p24 Ag Screen Non Reactive Non Reactive HIV-1/HIV-2 antibodies and HIV-1 p24 antigen were NOT detected. There is no laboratory evidence of HIV infection. HIV Negative Test, Urine Reviewed date:09/20/2024 03:01:25 PM Interpretation: Performing Lab: Notes/Report: Test, Urine neg Negative - Negative Breathalyzer Reviewed date:09/20/2024 03:01:30 PM Interpretation: Performing [...] Risk Notes Problem Benign paroxysmal positional vertigo (534945831) Benign paroxysmal vertigo, bilateral (H81.13) Active confirmed Problem Thyroid nodule (233035264) Thyroid nodule (E04.1) Active confirmed Problem Systolic murmur (24865622) Systolic murmur (I38) Active confirmed Problem Bipolar disorder (94178099) Bipolar 1 disorder, depressed (F31.9) Active confirmed Problem Stimulant abuse (390588414) Methamphetamine use disorder, mild, 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 confirmed Problem Opioid use disorder (5237935327) Opioid use disorder (F11.99) Active confirmed Problem Tobacco user (898309708) Nicotine dependence with current use (F17.200) Active confirmed Vital Signs Heart Rate 75 /min 11/15/2024 Temperature 97.9 degrees Fahrenheit 10/21/2024 Respiratory Rate 16 /min 11/15/2024 Oximetry 98 % 11/15/2024 Blood pressure diastolic 74 mm Hg 11/15/2024 Height 61 in 11/15/2024 Blood pressure systolic 110 mm Hg 11/15/2024 Weight 112.6 lbs 11/15/2024 BMI 21.27 kg/m2 11/15/2024 Encounters Encounter Location Date Provider Diagnosis [facility] [address] [place] [address] 09/19/2024 [place] [address] [place] [address] 09/20/2024 [facility] [address] [place] [address] 09/29/2024 Alana Vicentemaria guadalupe Opioid use disorder F11.99 [facility] [address] [place] [address] 10/13/2024 Alana Epps [facility] [address] [place] [address] 10/21/2024 Alana Vicentemaria guadalupe Opioid use disorder F11.99 [facility] [address] [place] [address] 11/15/2024 Alana Vicentemaria guadalupe Opioid use disorder F11.99 [facility] [address] [place] [address] 09/26/2024 Braxton Costa Thyroid nodule E04.1 ; Benign paroxysmal vertigo, bilateral H81.13 ; Systolic murmur I38 and Over weight E66.[address] [place] [address] 09/21/2024 Kasey yN Bipolar 1 disorder, depressed F31.[address] [place] [address] 09/20/2024 Ava Hernandez Methamphetamine use disorder, mild, in early remission F15.10 and Bipolar 1 disorder, depressed F31.9 [place] [address] [place] [address] 09/20/2024 Alana Vicentemaria guadalupe Methamphetamine use disorder, mild, in early remission F15.10 ; Opioid use disorder F11.99 ; Routine general medical examination at a health care facility Z00.00 and Nicotine dependence with current use F17.200 Assessments Encounter Date Diagnosis (ICD Code) Assessment [...] or be administered own oral medications per [facility] protocols. Provided informed consent with understanding of side effects, adverse effects, risks and benefits as well as alternative treatments as previously discussed and with the above recommended medications & other aspects of the treatment program. Agrees to return sooner if symptoms worsen or suicidal or homicidal ideations occur. 10/21/2024 Opioid use disorder (ICD-10 - F11.99) 11/15/2024 Opioid use disorder (ICD-10 - F11.99) 09/29/2024 [...] SUPR Programs: Based on an evaluation of [facility] Patient Placement Criteria, a recommendation for [...] F17.200) 09/26/2024 Over weight (ICD-10 - E66.3) 11/15/2024 Other Discussed medication side effects, adverse effects, risks, benefits, as well as interactions. Encouraged non-use of opioids. Has naloxone. Recommended participation in recovery groups and/or counseling services. May contact office with questions or concerns. Patient may self-administe r their own medications or may self-administe r their own oral medications per [facility] Protocol. 09/20/2024 Other Clinician met w ith client [...] May contact office with questions or concerns. Plan Of Treatment Future Test Test Name Order Date Echo doppler exam 09/26/2024 Ultrasound : Thyroid 09/26/2024 Insurance Providers Payer Name Payer Address Payer Phone Subscriber Number Group Number Insured Name Patient Relationship to Insured Coverage Start Date Coverage End Date [employer] [address] [place] [address] [id number] Jaycee Rouse Self - patient is the insured 3 [employer] [address] [place] [address] [id number] Jaycee Rouse Self - patient is the insured 5 [employer] [address] [place] [address] [id number] Jaycee Rouse Self - patient is the insured 5 Medical (General) History Medical History History ICD Code Manic Depression Surgical History Surgery Date(Month/Year) 3 c-sections right hand has pins gall bladder removed Hospitalization History Reason Date(Month/Year) gateway, multiple times between 2023- 5 06/2024
--- OUTSIDE RECORDS SUMMARY | 2024-12-15 12:15 | XMS_ITS | Clinical Summary ---
Author Organization [facility] Address [address] [place] [address] Care Team Providers Care Clinical Data Management Director Name Role Phone Christofer Stewart MD [...] [facility] [place] [address] [facility] [address] [place] [address] Christofer Stewart MD 10/17/2024 1:35 AM CDT - 10/17/2024 2:55 AM CDT Emergency [facility] Emergency Department [address] [place] [address] Jamarcus Irvin MD Kanumuri, Raghu, MD Chest pain, unspecified type (Primary Dx) Discharge Disposition: Discharge to home or self care 09/18/2024 2:48 PM CDT - 09/18/2024 3:17 PM CDT Emergency [facility] Emergency Department [address] [place] [address] Discharge Disposition: Left without being seen 09/18/2024 Documentation [facility] Warm Hand Off Program [address] [place], [place] [phone] Trisha Marie from Last 3 Months Surgical [...] on file 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 Smoker TECHNIQUE: Frontal and lateral [...] Ml Foster M.D. SN: SN Report ID: [id number] Reading Location: [id number] Procedure Note Ml Foster MD - 10/17/2024 EXAM DESCRIPTION: XR CHEST PA LATERAL 2 VIEWS REASON FOR STUDY: cough Pt has flight of ideas and [facility] [place] [facility] Smoker TECHNIQUE: Frontal and lateral [...] Ml Foster M.D. SN: SN Report ID: [id number] Reading Location: [id number] Tre Roche MD IMG XR PROCEDURES Final Result * ECG 12 lead (10/17/2024 12:07 AM CDT) 10/17/2024 12:0 7 AM CDT Narrative [facility] - 10/17/2024 6:47 AM CDT Vent Rate: 84 bpm RR Interval: 709 msec IN Interval: 111 msec QRS Duration: 96 msec QT Interval: 362 msec QTC Interval: 403 msec P-R-T [place]: 80 - 73 - 64 degrees IMPRESSION: Baseline artifact, probable SINUS RHYTHM WITH SHORT IN INTERVAL LEFT ATRIAL ENLARGEMENT [-0.15mV P WAVE IN V1/V2] POSSIBLE LEFT VENTRICULAR HYPERTROPHY [VOLTAGE CRITERIA PLUS LAE OR QRS WIDENING] ABNORMAL ECG NO CHANGE FROM PREVIOUS TRACING NOTED Electronically Signed By: Francois Casarez MD Jamarcus Irvin MD ECG ORDERABLES Final Result [facility] * (ABNORMAL) Drugs of Abuse Screen, [...] Res ult RAUL SMITH (NBA) [address] [facility] [place] [address] from Last 3 Months Insurance [facility] Advance Directives For more information, please contact: [phone] * Full Code (Latest Code Status on File) Date Activated Date Inactivated Comments 10/20/2023 12:17 PM 10/20/2023 8:58 PM Care Teams Clinical Data Management Director Relationship Specialty Start Date End Date Christofer Stewart MD PCP - General Family Medicine 06/23/23
--- OUTSIDE RECORDS SUMMARY | 2024-12-15 12:16 | XMS_ITS | Clinical Summary ---
Author Organization [facility] [employer] Address [address] [place] [address] Care Team Providers Care Crab Butcher Name Role Phone Mario Logan MD Primary Care Provider Source Comments [facility] [employer],non-owned Affiliates and Associated Physician Practices is amultiple site organization consisting of ambulatory clinics and hospital sitesin [place], [place], [place] and [place]. This disclosure is being madepursuant to the Care Everywhere program and may not contain all information available regarding this patient. Last updated 17.[facility] [employer] Allergies Active Allergy Reactions Criticality Noted Date [...] naloxone HCl (NARCAN) 4 MG/0.1ML nasal spray [place] 1 spray into the nose as needed [...] migh t be different from the original. 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 Gender Identity Not on file Sexual Orientation [...] P24 AG PANEL Routine 03/10/2019 1:24 PM STRAW HAT BRUSHER Supervision of high risk in second trimester HEPATITIS C ANTIBODY Routine 11/11/2018 12:07 PM CDT Supervision of high risk , antepartum from Last 3 Months or Most Recently Relevant to Health Maintenance Results * HIV-1 HIV-2 ANTIBODY + HIV P24 AG PANEL (03/10/2019 1:24 PM STRAW HAT BRUSHER) Pathologist [facility] HIV1/2 Ab + P24 Ag Non Reactive Non Reactive 03/10/2019 2:57 PM STRAW HAT BRUSHER [facility] Blood BLOOD SPECIMEN / Unknown Venipuncture / Unknown 03/10/2019 1:24 PM STRAW HAT BRUSHER 03/10/2019 1:49 PM STRAW HAT BRUSHER Narrative [facility] - 03/10/2019 2:57 PM STRAW HAT BRUSHER No Laboratory evidence of HIV infection. us Ivana Thomas TECHNOLOGY SALES REPRESENTATIVE-[employer] LAB - CHEMISTRY ORDERAB LES Final Result [facility] [address] [place] [address] * HEPATITIS C ANTIBODY (11/11/2018 12:07 PM CDT) HCV Antibody Screen Non Reactive Non Reactive 11/11/2018 1:55 PM CDT [facility] HCV S/C Ratio 0.19 0.00 - 0.79 11/11/2018 1:55 PM CDT [facility] Comment: Drjfrn-wi-nzkfrf ratio (S/CO) <0.80: Non Reactive Blood BLOOD SPECIMEN / Unknown Venipuncture / Unknown 11/11/2018 12:07 PM CDT 11/11/2018 12:56 PM CDT Narrative [facility] - 11/11/2018 1:55 PM CDT Non Reactive - Antibodies to Hepatitis C virus (HCV) were not detected, result does not exclude early acute HCV infection. Helen Zurita TECHNOLOGY SALES REPRESENTATIVE-[employer] DR[employer] LAB - CHEMISTRY ORDERA BLES Final Result Performing Organization Address City/State/RUST Co de Phone Number [facility] [address] [place] [address] from Last 3 Months or Most Recently Relevant to Health Maintenance Insurance [facility] Advance Directives * Full Code (Latest [...] 11:00 AM 03/17/2019 7:31 PM Care Teams Crab Butcher Relationship Specialty Start Date End Date Mario Logan MD [address] [place] [address] PCP - General 05/24/19
--- OUTSIDE RECORDS SUMMARY | 2024-12-15 12:16 | XMS_ITS | Clinical Summary ---
Author Organization [facility] Address [address], [address] [address] Phone Care Team Providers Care Pharmacy Technician Per Diem Name Role Phone DelisaMay N FOUR ROLL CALENDER OPERATOR, FIELD TECHNICAL SUPPORT CONSULTANT Primary Care Provider [phone] Allergies Active Allergy Reactions Criticality Noted Date [...] Encounters Date Type Department Care Team Description 12/05/2024 Results Follow-Up [facility] [address] [place] [address] Wendie Hercules, FOUR ROLL CALENDER OPERATOR, FIELD TECHNICAL SUPPORT CONSULTANT THYROID, VITAMIN D, 25 HYDROXY TOTAL, VITAMIN B12, Additional followed-up results: 5 12/02/2024 10:49 AM CDT - 12/02/2024 11:59 PM CDT Hospital Encounter [facility] Ultrasound [address] [place] [address] Wendie Hercules, FOUR ROLL CALENDER OPERATOR, FIELD TECHNICAL SUPPORT CONSULTANT Discharge Disposition: Discharged to home or Selfcare 12/02/2024 Travel 11/21/2024 2:30 PM CDT Office Visit [facility] [address] [place] [address] Wendie Hercules, FOUR ROLL CALENDER OPERATOR, FIELD TECHNICAL SUPPORT CONSULTANT Depression with anxiety (Primary Dx); At risk for sexually transmitted disease due to unprotected sex Discharge Disposition: Discharged to home or Selfcare 11/21/2024 Travel 11/17/2024 9:39 AM CDT - 11/17/2024 11:17 AM CDT Emergency [facility] [address] [place] [address] Hugh Palencia DO Viral syndrome Discharge Disposition: Discharged to home or Selfcare 11/17/2024 Telephone [facility] [address] [place] [address] Wendie Hercules, FOUR ROLL CALENDER OPERATOR, FIELD TECHNICAL SUPPORT CONSULTANT 11/17/2024 Nurse Triage [facility] [address] [place] [phone] Wendie Hercules APRN, CNP Breathing Problem 11/16/2024 2:15 PM CDT Office Visit [facility] [address] [place] [address] Óscar Doss APRN, ELVIA Chest discomfort (Primary Dx) Discharge Disposition: Discharged to home or Selfcare 11/16/2024 Documentation Only [facility] 1 [place] [address] Wendie Hercules APRN, CNP 11/15/2024 10:03 PM CDT - 11/16/2024 12:06 AM CDT Emergency [facility] Emergency 1 [place] [address] Billy Cagle MD Chest pain, unspecified type Discharge Disposition: Discharged to home or Selfcare 11/15/2024 Travel 11/11/2024 Telephone [facility] [address] [place] [address] Wendie Hercules APRN, CNP Need Order 10/21/2024 2:00 PM CDT Office Visit [facility] [address] [place] [address] Wendie Hercules APRN, ELVIA Encounter for preventative adult health care exam with abnormal findings (Primary Dx); History of methadone use; Anxiety and depression; Nodule of left lobe of thyroid gland; Vaginal pain; Encounter for screening mammogram for breast cancer Discharge Disposition: Discharged to home or Selfcare 10/21/2024 Travel 10/21/2024 Telephone [facility] [address] [place] [phone] Provider, None New Patient from Last 3 [...] st Contact Info) Description 01/03/2025 2:30 PM 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 [address] [place] [address] Health Maintenance Due Date Last Done Comments [...] CDT DICTATING PHYSICIAN: Mickey Mccarty D.O. - [facility] US THYROID, 12/02/2024 11:09 [...] (2) with internal vascularity. Echogenicity: Hyperechoic (1). Jfotuk-qksx-Ybll: no (0). Margins: Smooth (0). Echogenic foci: None (0). ACR TI-RADS Classification: TR 3 (3 points) Procedure Note Mickey Mccarty, DO - 12/03/2024 DICTATING PHYSICIAN: Mickey Mccarty D.O. - [facility] US THYROID, 12/02/2024 11:09 AM [...] solid (2) with internalvascularity. Echogenicity: Hyperechoic (1). Krxfhd-fjib-Ajcv: no (0). Margins: Smooth (0). Echogenic foci: [...] volume according to the 2017 WhitePaper. us May N Oehl FOUR ROLL CALENDER OPERATOR, FIELD TECHNICAL SUPPORT CONSULTANT IMG US ORDERABLES Final R esult * VITAMIN D, 25 HYDROXY TOTAL (12/02/2024 10:47 AM CDT) VITAMIN D, 25 HYDROX 27.9 ng/mL 12/02/2024 12:19 PM CDT [facility] Blood Venipuncture / Unknown 12/02/2024 10:47 AM CDT 12/02/2024 11:12 AM CDT Narrative [facility] - 12/02/2024 12:19 PM CDT Published reference ranges for Vitamin D vary depending on time and place and method of testing, and on patient's age, sex, ethnicity and levels of other measured analytes such as parathormone, calcium and phosphorus. The result should be evaluated in conjunction with clinical findings and suspicions. [employer] of [employer] and Endocrine Clinical Practice Guidelines: Status Vitamin D levels (ng/mL) Deficient <=20 At risk of inadequacy 21-29 Sufficient 30-100 Centers of Disease Control and Prevention Guidelines: Status Vitamin D levels (ng/mL) Deficient <13 At risk of inadequacy 13-19 Sufficient 20-50 Possibly harmful >50 References: [employer], 2010 Dietary reference intakes for calcium and vitamin D. [place]: The National Academies Press. Betsy M, Ariadne N, Glen ZAMUDIO, et al., Evaluation, treatment, and prevention of Vitamin D deficiency: an Endocrinology Clinical Practice Guideline. JCEM 2011 96: 7 2219-1745. Kenan A, Desmond C, Tyra D, et al., Vitamin D Status: [place], 9724-7639, [facility] data brief, no. 59, MD [place]: National Center for Health Statistics. 2011. us May N Delisa FOUR ROLL CALENDER OPERATOR, FIELD TECHNICAL SUPPORT CONSULTANT CHEMISTRY ORDERABLES Adelaide l Result [facility] [address] [place] [address] * THYROID SCREEN WITH REFLEX (12/02/2024 10:47 AM CDT) TSH 1.382 0.300 - 5.000 mIU/L 12/02/2024 12:07 PM CDT [facility] Blood Venipuncture / Unknown 12/02/2024 10:47 AM CDT 12/02/2024 11:12 AM CDT May N Oehl FOUR ROLL CALENDER OPERATOR, FIELD TECHNICAL SUPPORT CONSULTANT CHEMISTRY ORDERABLES Adelaide l Result [facility] [address] [place] [address] * CBC WITH AUTO DIFFERENTIAL (12/02/2024 10:47 AM CDT) Only the most recent of3 resultswithin the time period is included. WBC 6.33 4.00 - 12.00 10(3)/mcL 12/02/2024 11:24 AM CDT [facility] RBC 4.13 3.80 - 5.30 10(6)/mcL 12/02/2024 11:24 AM CDT [facility] HEMOGLOBIN (HGB) 12.7 12.0 - 15.8 g/dL 12/02/2024 11:24 AM CDT [facility] HEMATOCRIT (HCT) 38.8 36.0 - 47.0 % 12/02/2024 11:24 AM CDT [facility] MCV 93.9 82.0 - 96.0 fL 12/02/2024 11:24 AM CDT [facility] MCH 30.8 26.0 - 34.0 pg 12/02/2024 11:24 AM CDT [facility] MCHC 32.7 31.0 - 36.0 g/dL 12/02/2024 11:24 AM CDT [facility] PLATELET COUNT 285 140 - 440 10(3)/mcL 12/02/2024 11:24 AM CDT [facility] RDW 12.3 11.8 - 15.5 % 12/02/2024 11:24 AM CDT [facility] MPV 9.8 9.7 - 12.4 fL 12/02/2024 11:24 AM CDT [facility] NEUTROPHILS 58.9 47.0 - 73.0 % 12/02/2024 11:24 AM CDT [facility] LYMPHOCYTES 31.0 18.0 - 42.0 % 12/02/2024 11:24 AM CDT [facility] MONOCYTES 7.9 4.0 - 12.0 % 12/02/2024 11:24 AM CDT [facility] EOSINOPHILS 1.1 0.0 - 5.0 % 12/02/2024 11:24 AM CDT [facility] BASOPHILS 0.8 0.0 - 1.0 % 12/02/2024 11:24 AM CDT [facility] IMMATURE GRANULOCYTE 0.3 0.0 - 0.4 % 12/02/2024 11:24 AM CDT [facility] ABSOLUTE NEUTROPHILS 3.73 1.60 - 7.70 10(3)/mcL 12/02/2024 11:24 AM CDT [facility] ABSOLUTE LYMPHOCYTES 1.96 1.30 - 3.20 10(3)/mcL 12/02/2024 11:24 AM CDT [facility] ABSOLUTE MONOCYTES 0.50 0.20 - 1.00 10(3)/[facility] 12/02/2024 11:24 AM CDT [facility] ABSOLUTE EOSINOPHIL 0.07 0.00 - 0.40 10(3)/[facility] 12/02/2024 11:24 AM CDT [facility] ABSOLUTE BASOPHILS 0.05 0.00 - 0.10 10(3)/[facility] 12/02/2024 11:24 AM CDT [facility] ABSOLUTE IMMATURE GRANULOCYTE 0.02 0.00 - 0.03 10 (3) mcL. 12/02/2024 11:24 AM CDT [facility] NRBC PER 100 WBC 0 12/03/19 11:24 AM CDT [facility] Blood Venipuncture / Unknown 12/02/2024 10:47 AM CDT 12/02/2024 11:14 AM CDT May Oehl FOUR ROLL CALENDER OPERATOR, FIELD TECHNICAL SUPPORT CONSULTANT HEMATOLOGY ORDERABLES Fin al Result [facility] [address] [place] [address] * VITAMIN B12 (12/02/2024 10:47 AM CDT) VITAMIN B12 418 213 - 816 pg/mL 12/02/2024 12:19 PM CDT [facility] Blood Venipuncture / Unknown 12/02/2024 10:47 AM CDT 12/02/2024 11:12 AM CDT May N Delisa BRISCOE, FIELD TECHNICAL SUPPORT CONSULTANT CHEMISTRY ORDERABLES Adelaide l Result [facility] [address] [place] [address] * THYROXINE (T4) FREE (12/02/2024 10:47 AM CDT) T4 FREE 0.8 0.7 - 1.9 ng/dL 12/02/2024 12:08 PM CDT [facility] Blood Venipuncture / Unknown 12/02/2024 10:47 AM CDT 12/02/2024 11:12 AM CDT May N Delisa BRISCOE FIELD TECHNICAL SUPPORT CONSULTANT CHEMISTRY ORDERABLES Adelaide l Result [facility] [address] [place] [address] * LIPID PANEL (12/02/2024 10:47 AM CDT) CHOLESTEROL 175 <200 mg/dL 12/02/2024 11:54 AM CDT [facility] TRIGLYCERIDES 127 <150 mg/dL 12/02/2024 11:54 AM CDT [facility] HDL CHOLESTEROL 55 >40 mg/dL 11:54 AM CDT [facility] LDL 95 <130 mg/dL 12/02/2024 11:54 AM CDT [facility] VLDL 25 10 - 50 mg/dL 12/02/2024 11:54 AM CDT [facility] CHOL/HDL RATIO 3.2 0.0 - 4.4 12/02/2024 11:54 AM CDT [facility] NON-HDL CHOLESTEROL 120 <130 mg/dL 12/02/2024 11:54 AM CDT [facility] IS THE PATIENT REQUIRED TO BE FASTING? Yes 12/02/2024 11:54 AM CDT [facility] HAS THE PATIENT BEEN FASTING? Yes 12/02/2024 11:54 AM CDT [facility] Blood Venipuncture / Unknown 12/02/2024 10:47 AM CDT 12/02/2024 11:12 AM CDT Narrative [facility] - 12/02/2024 11:54 AM CDT [...] above target levels for LDL cholesterol. may Delisa FOUR ROLL CALENDER OPERATOR, FIELD TECHNICAL SUPPORT CONSULTANT CHEMISTRY ORDERABLES Adelaide l Result [facility] [address] [place] [address] * CMP (COMPREHENSIVE METABOLIC PANEL) (12/02/2024 10:47 AM CDT) Only the most recent of3 resultswithin the time period is included. SODIUM 142 136 - 145 mmol/L 12/02/2024 11:54 AM CDT [facility] POTASSIUM 4.0 3.5 - 5.1 mmol/L 12/02/2024 11:54 AM CDT [facility] CHLORIDE 107 98 - 107 mmol/L 12/02/2024 11:54 AM CDT [facility] CO2, VENOUS 28 22 - 30 mmol/L 12/02/2024 11:54 AM CDT [facility] ANION GAP 11.0 <18.0 mmol/L 12/02/2024 11:54 AM CDT [facility] GLUCOSE 93 70 - 99 mg/dL 12/02/2024 11:54 AM CDT [facility] BUN 15 5 - 18 mg/dL 12/02/2024 11:54 AM CDT [facility] CREATININE, BLOOD 0.77 0.60 - 1.00 mg/dL 12/02/2024 11:54 AM CDT [facility] BUN/CREATININE RATIO 19 12 - 20 ratio 12/02/2024 11:54 AM CDT [facility] TOTAL PROTEIN 6.7 6.0 - 8.0 g/dL 12/02/2024 11:54 AM CDT [facility] ALBUMIN 4.1 3.5 - 5.0 g/dL 12/02/2024 11:54 AM T [facility] A/G RATIO 1.6 1.0 - 2.2 12/02/2024 11:54 AM CDT [facility] CALCIUM 9.3 8.7 - 10.5 mg/dL 12/02/2024 11:54 AM CDT [facility] T BILI 0.3 0.2 - 1.2 mg/dL 12/02/2024 11:54 AM CDT [facility] SGOT (AST) 15 <43 U/L 12/02/2024 11:54 AM CDT [facility] SGPT (ALT) 29 <56 U/L 12/02/2024 11:54 AM CDT [facility] ALKALINE PHOSPHATASE 80 40 - 150 U/L 12/02/2024 11:54 AM CDT [facility] IS THE PATIENT REQUIRED TO BE FASTING? No 12/02/2024 11:54 AM CDT [facility] GFR, ESTIMATED >60 >=60 12/02/2024 11:54 AM CDT [facility] Comment: Creatinine Clearance is the preferred criteria for selecting drug dose adjustments in renally impaired patients. The GFR is provided as additional pertinent clinical information. GFR is reported in mL/min/1.73 sq m. Calculation based on the 2020 Chronic Kidney Disease Epidemiology Collaboration (CKD-EPI) equation refit without adjustment for race. GFR, EST. >60 >=60 025 11:54 AM CDT [facility] Comment: Creatinine Clearance is the preferred criteria for selecting drug dose adjustments in renally impaired patients. The GFR is provided as additional pertinent clinical information. GFR is reported in mL/min/1.73 sq m. Calculation based on the 2009 Chronic Kidney Disease Epidemiology Collaboration (CKD-EPI). GFR, EST. NONAFRICAN >60 >=60 12/02/2024 11:54 AM CDT [facility] Comment: Creatinine Clearance is the preferred criteria for selecting drug dose adjustments in renally impaired patients. The GFR is provided as additional pertinent clinical information. GFR is reported in mL/min/1.73 sq m. Calculation based on the 2009 Chronic Kidney Disease Epidemiology Collaboration (CKD-EPI). Blood Venipuncture / Unknown 12/02/2024 10:47 AM CDT 12/02/2024 11:12 AM CDT may N Delisa FOUR ROLL CALENDER OPERATOR, FIELD TECHNICAL SUPPORT CONSULTANT CHEMISTRY ORDERABLES Adelaide l Result [facility] [address] [place] [address] * RSV,SARS-COV-2,INFLUENZA A&B BY PCR (11/17/2024 9:55 AM CDT) FLU A Negative Negative, Error 11/17/2024 11:19 AM CDT [facility] FLU B Negative Negative 11/17/2024 11:19 AM CDT [facility] RESP SYNC VIRUS Negative Negative 11:19 AM CDT [facility] SARSCOV2 NOT DETECTED (Reference Range for this test is Not Detected) 11/17/2024 11:19 AM CDT [facility] Comment:This test was perfor med by a Reverse Remotely Piloted Vehicle Controller PCR Method. Nasal NASOPHARYNGEAL STRUCTURE / Unknown Non-Phlebotomy Collection / Unknown 11/17/2024 9:55 AM CDT 11/17/2024 10:36 AM CDT us Hugh Palencia DO MICROBIOLOGY - GENERAL ORDERABLES Final Result [facility] [address] [place] [address] * EKG 12 LEAD (11/17/2024 9:47 AM CDT) Only the most recent of2 resultswithin the time period is included. Ventricular Rate 61 BPM EXTERNAL EKG Atrial Rate 61 BPM EXTERNAL EKG P-R Interval 114 ms EXTERNAL EKG QRS Duration 90 ms EXTERNAL EKG Q-T Duration 398 ms EXTERNAL EKG QTC CALCULATION 400 ms EXTERNAL EKG P [place] 63 degrees EXTERNAL EKG R [place] 67 degrees EXTERNAL EKG T [place] 56 degrees EXTERNAL EKG 11/17/2024 9:47 AM CDT Impressions EXTERNAL EKG - 11/19/2024 8:18 PM CDT Normal sinus rhythm Nonspecific ST abnormality Abnormal ECG When compared with ECG of 15-NOV-2024 22:10, No significant change was found Confirmed by ALEX BAUTISTA ([id number]) on 11/19/2024 8:18:01 PM Narrative Procedure Note Alex Bautista MD - 11/19/2024 IMPRESSION: Normal sinus rhythm Nonspecific ST abnormality Abnormal ECG When compared with ECG of 15-NOV-2024 22:10, No significant change was found Confirmed by ALEX BAUTISTA ([id number]) on 11/19/2024 8:18:01 PM us Hugh Palencia DO IMG ECG ORDERABLES Aedlaide l Result Performing Organization Address [facility] Co de Phone Number EXTERNAL EKG * TROPONIN I, HIGH SENSITIVITY (HSTRP) (11/17/2024 9:45 AM CDT) Only the most recent of2 resultswithin the time period is included. TROPONIN I, HIGH SENSITIVITY- OLIVA <2.7 <=14.0 ng/L 11/17/2024 11:04 AM CDT [facility] Comment: High-sensitivity troponin I results are reported in ng/L making the result appear to be 1,000 times higher than the contemporary troponin I value which is reported in ng/ml. Results from [facility]. Blood Venipuncture / Unknown 11/17/2024 9:45 AM CDT 11/17/2024 10:37 AM CDT us Hugh Palencai DO CHEMISTRY ORDERABLES Fi nal Result Performing Organization Address [facility] de Phone Number [facility] [address] [place] [address] * Gold Top Tube (11/17/2024 9:45 AM CDT) Blood No Phlebotomy Charged / Unknown 11/17/2024 9:45 AM CDT 11/17/2024 10:38 AM CDT us Hugh Palencia DO CHEMISTRY ORDERABLES Fi nal Result Performing Organization Address [facility] Co de Phone Number [facility] [address] [place] [address] * Blue Top Tube (11/17/2024 9:45 AM CDT) Blood No Phlebotomy Charged / Unknown 11/17/2024 9:45 AM CDT 11/17/2024 10:38 AM CDT us Hugh Palencia DO HEMATOLOGY ORDERABLES F inal Result Performing Organization Address [facility] Co de Phone Number [facility] [address] [place] [address] * EKG SCAN (11/17/2024 12:00 AM CDT) [...] Result * Human Chorionic Gonadotropin Scrn Serum [id number] (11/15/2024 10:26 PM CDT) PREG-HCG Negative Negative 11/15/2024 11:28 PM CDT [facility] Blood Venipuncture / Unknown 11/15/2024 10:26 PM CDT 11/15/2024 11:06 PM CDT Billy Cagle MD CHEMISTRY ORDERABLES Adelaide l Result [facility] [address] [place] [address] * Magnesium (11/15/2024 10:26 PM CDT) MAGNESIUM 1.9 1.6 - 2.6 mg/dL 11/15/2024 11:28 PM CDT [facility] Comment: Specimen is hemolyzed. In vitro hemolysis could affect results. Clinical correlation advised. Blood Venipuncture / Unknown 11/15/2024 10:26 PM CDT 11/15/2024 11:06 PM CDT Billy Cagle MD CHEMISTRY ORDERABLES Adelaide l Result Performing Organization Address City/[facility]/ZIP Co de Phone Number [facility] [address] [place] [address] * Lipase (11/15/2024 10:26 PM CDT) LIPASE 19 8 - 78 U/L 11/15/2024 11:28 PM CDT [facility] Blood Venipuncture / Unknown 11/15/2024 10:26 PM CDT 11/15/2024 11:06 PM CDT Billy Cagle MD CHEMISTRY ORDERABLES Adelaide l Result [facility] [address] [place] [address] from Last 3 Months Insurance MEDICAID [place] Care Teams Pharmacy Technician Per Diem Relationship Specialty Start Date End Date Delisa, May N, FOUR ROLL CALENDER OPERATOR, FIELD TECHNICAL SUPPORT CONSULTANT [address] [facility] [address] [address] PCP - General Advanced Practice Nurse 10/21/24
== END 2024-12-15 12:00 | disposition home or self-care (01) ==
PROVIDERS: Emergency Provider Emergency Medicine; Referring Provider Family Medicine
DX: M94.0 Chondrocostal junction syndrome [Tietze] (principal); F17.210 Nicotine dependence, cigarettes, uncomplicated; Z79.899 Other long term (current) drug therapy
CPT/HCPCS: 36415; 71045; 80053; 84484; 85025; 85380; 93005; 99284

== ENCOUNTER 2024-12-21 06:53 | Emergency (ER) | payer OTHER, SELFPAY ==
--- OUTSIDE RECORDS SUMMARY | 2024-09-28 05:40 | XMS_ITS ---
Author Organization [facility] Address [address] [place] [address] Care Team Providers Care Welt Stitcher Name Role Phone Alana Epps Primary Care Provider [phone] Ana Verma [phone] REASON FOR VISIT new patient Social History Sex Assigned At : Social History Observation Description Sex Assigned At Female Encounters Encounter Location Date Provider Diagnosis [facility] [address] [place] [address] 09/28/2024 Ana Verma Plan Of Treatment No Information Progress Notes * PADMABradsyedDOB:1980 (44 yo F)Acc No.[id number]:09/28/2024 UNLOCKED PROGRESS NOTE Patient: Jaycee AYALA Provider: ALCON Nash, SEASONAL DELIVERY DRIVER, PMHNP-BC :1980 A ge:44 Y S ex:Female Date:09/28/2024 Address[address] [facility] Pcp:Alana Epps Subjective: * Chief Complaints: * 1 . New patient. * Medical History: Objective: * Vitals: Assessment: Plan: * Treatment: * * Electronic signature of Anton Verma on 12/21/2024 at 06:56 AM CDT Sign off status: Pending * Provider: Peg eVrma MSN, SEASONAL DELIVERY DRIVER, PMHNP-BC Date: 0 09/28/2024 Generated for Printing/Faxing/eTransmitting on: 1 06:56 AM CDT
--- OUTSIDE RECORDS SUMMARY | 2024-09-29 04:20 | XMS_ITS ---
Author Organization [facility] Address [address] [place] [address] Care Team Providers Care Blown Film Extrusion Operator Name Role Phone Alana Epps Primary Care Provider Leandro Harris [phone] REASON FOR VISIT new patient Social History Sex Assigned At : Social History Observation Description Sex Assigned At Female Encounters Encounter Location Date Provider Diagnosis [address] [place] [address] 09/29/2024 Leandro Harris Plan Of Treatment No Information Progress Notes * JENNYFERJaycee SCHULZDOB:1980 (44 yo F)Acc No.[id number]:09/29/2024 UNLOCKED PROGRESS NOTE Patient: Jaycee AYALA Provider: Sasha Harris DNP, PMHNP-BC :1980 A ge:44 Y S ex:Female Date:09/29/2024 [facility] [facility] Pcp:Alana Epps Subjective: * Chief Complaints: * 1 . New patient. * Medical History: Objective: * Vitals: Assessment: Plan: * Treatment: * * Electronic signature of Kanu Harris APRN, [id number] on 12/21/2024 at 06:56 AM CDT Sign off status: Pending * Provider: Sasha Harris DNP, PMHNP-BC Date: 0 09/29/2024 Generated for Roland felder/Karina/eTransmitting on: 1 06:56 AM CDT
--- OUTSIDE RECORDS SUMMARY | 2024-10-06 03:20 | XMS_ITS ---
Author Organization [facility] Address [address] [place] [address] Care Team Providers Care Cell Support Operator Name Role Phone Alana Epps Primary Care Provider REASON FOR VISIT 1 week f/u Social History Sex Assigned At : Social History Observation Description Sex Assigned At Female Encounters Encounter Location Date Provider Diagnosis [place] [address] [facility] [place] [address] 10/06/2024 Alana Epps Plan Of Treatment No Information Progress Notes * Jaycee ROUSEDOB:1980 (44 yo F)Acc No.[id number]:10/06/2024 UNLOCKED PROGRESS NOTE Patient: Jaycee AYALA Provider: Sasha Epps MSN, LADLE LINER HELPER, BAIL AGENT-C :1980 A ge:44 Y S ex:Female Date:10/06/2024 [address] [facility] Subjective: * Chief Complaints: * 1 . 1 week f/u. * Medical History: Objective: * Vitals: Assessment: Plan: * Treatment: * Care Plan Details* * Electronic signature of Guera Epps APRN, [id number] on 12/21/2024 at 06:56 AM CDT Sign off status: Pending * Provider: Sasha Epps MSN, LADLE LINER HELPER, BAIL AGENT-C Date: 0 10/06/2024 Generated for Roland felder/Karina/eTransmitting on: 1 06:56 AM CDT
[2024-12-21] VITALS (11 sets, daily range): BP systolic 94–111; BP diastolic 56–66; PULSE 60–72; RESP 16–20; TEMP 36.4; O2SAT 95–100
--- OUTSIDE RECORDS SUMMARY | 2024-12-21 06:56 | XMS_ITS | Patient Health Record ---
Author Organization [facility] Address [address] [place] [address] Care Team Providers Care Autoclave Operator Name Role Phone Alana Epps Primary Care Provider [phone] Kasey Ny Unavailable [phone] Ava Hernandez Unavailable [phone] Leandro Harris Unavailable [phone] Ana Verma Unavailable [phone] Braxton Costa Unavailable [phone] Allergies Allergen (clinical drug ingredient) Drug/Non Drug Allergy documented on EMR Reaction Allergy Type Onset Date Status Penicillin rash Drug Allergy Active Results Component Value Reference Range Notes 14 Panel Urine Drug Screen Reviewed date:09/20/2024 12:02:23 PM Interpretation: Performing Lab: Notes/Report: THC neg CHRISTOPHER neg MOP (OPI) neg AMP pos MET neg BAR neg BZO neg MDMA neg MTD neg OXY neg PCP neg BUP neg TCA neg FTY neg CBC With Differential/Platel et* Reviewed date:09/21/2024 02:19:40 PM Interpretation:Normal Performing Lab:[facility] [place], [address] [facility], Phone - [phone], Director - PhDRicchiuti Notes/Report: WBC 5.9 3.4-10.8 x10E3/uL RBC 4.83 [...] Panel* Reviewed date:09/21/2024 02:19:40 PM Interpretation:Normal Performing Lab:[facility] [place], [id number] [facility], Phone - [phone], [facility] - [facility]/Report: Glucose 73 70-99 mg/dL BUN 14 [...] Screen *HIV 1, 2 Ab, p24 Ag ([id number]) Reviewed date:09/21/2024 02:19:40 PM Interpretation:Normal Performing Lab:[facility] [place], [address] [facility], Phone - [phone], Director - [facility] Notes/Report: HIV Ab/p24 Ag Screen Non Reactive Non Reactive HIV-1/HIV-2 antibodies and HIV-1 p24 antigen were NOT detected. There is no laboratory evidence of HIV infection. HIV Negative Test, Urine Reviewed date:09/20/2024 03:01:25 PM Interpretation: Performing Lab: Notes/Report: Test, Urine neg Negative - Negative Breathalyzer Reviewed date:09/20/2024 03:01:30 PM Interpretation: Performing Lab: Notes/Report: SHERI 0.000 14 Panel Urine Drug Screen Reviewed date:11/15/2024 [...] neg FTY neg QuantiFERON-TB Gold Plus ([id number]) Reviewed date:09/22/2024 02:30:29 PM Interpretation:Normal [facility]forming [facility], [address] [facility], [place], Phone - [phone], Director - Eryn Notes/Report: QuantiFERON Incubation Incubation [...] Risk Notes Problem Benign paroxysmal positional vertigo (658570544) Benign paroxysmal vertigo, bilateral (H81.13) Active confirmed Problem Thyroid nodule (834169621) Thyroid nodule (E04.1) Active confirmed Problem Systolic murmur (82642956) Systolic murmur (I38) Active confirmed Problem Bipolar disorder (30752617) Bipolar 1 disorder, depressed (F31.9) Active confirmed Problem Stimulant abuse (970171366) Methamphetamine use disorder, mild, 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 confirmed Problem Opioid use disorder (4801326840) Opioid use disorder (F11.99) Active confirmed Problem Tobacco user (688142246) Nicotine dependence with current use (F17.200) Active confirmed Vital Signs Heart Rate 75 /min 11/15/2024 Temperature 97.9 degrees Fahrenheit 10/21/2024 Respiratory Rate 16 /min 11/15/2024 Blood pressure diastolic 74 mm Hg 11/15/2024 Oximetry 98 % 11/15/2024 Height 61 in 11/15/2024 Blood pressure systolic 110 mm Hg 11/15/2024 Weight 112.6 lbs 11/15/2024 BMI 21.27 kg/m2 11/15/2024 Encounters Encounter Location Date Provider Diagnosis [facility] [place] [address] 09/20/2024 Alana Epps Methamphetamine use disorder, mild, in early remission F15.10 ; Opioid use disorder F11.99 ; Routine general medical examination at a health care facility Z00.00 and Nicotine dependence with current use F17.[address] [place] [address] 09/20/2024 Ava Hernandez Methamphetamine use disorder, mild, in early remission F15.10 and Bipolar 1 disorder, depressed F31.[address] [place] [address] 09/21/2024 Kasey Ny Bipolar 1 disorder, depressed F31.9 [address] [address] [place] [address] 09/26/2024 Braxton Costa Thyroid nodule E04.1 ; Benign paroxysmal vertigo, bilateral H81.13 ; Systolic murmur I38 and Over weight E66.3 [address] [address] [place] [address] 10/21/2024 Alana Epps Opioid use disorder F11.99 [address] [address] [place] [address] 11/15/2024 Alana Epps Opioid use disorder F11.99 [address] [place] [address] 09/19/2024 Alana Epps [facility] [address] [place] [address] 09/20/2024 Alana Epps [address] [address] [place] [address] 09/29/2024 Alana Epps Opioid use disorder F11.99 [address] [place] [address] 10/13/2024 Alana Epps Assessments Encounter Date Diagnosis (ICD Code) Assessment Notes Treatment Notes Treatment Clinical Notes Section Notes 11/15/2024 Opioid use disorder (ICD-10 - F11.99) 10/21/2024 Opioid use disorder (ICD-10 - F11.99) 09/20/2024 Methamphetamine use disorder, mild, in early remission (ICD-10 - F15.10) 09/29/2024 Opioid use disorder (ICD-10 - F11.99) [...] 09/20/2024 Opioid use disorder (ICD-10 - F11.99) 09/21/2024 Bipolar 1 disorder, depressed (ICD-10 - F31.9) Start olanzapine to help with mood instability and sleep. Olanzapine 2.5mg po PRN daily for anxiety. 10mg scheduled po QHS. Labs completed recently. May self-administer medications or be administered own oral medications per [facility] protocols. Provided informed consent with understanding of side effects, adverse effects, risks and benefits as well as alternative treatments as previously discussed and with the above recommended medications & other aspects of the treatment program. Agrees to return sooner if symptoms worsen or suicidal or homicidal ideations occur. 09/26/2024 Systolic murmur (ICD-10 - I38) 09/20/2024 Routine general medical examination at a health care facility (ICD-10 - Z00.00) SUPR Programs: Based on an evaluation of [facility] Patient Placement Criteria, a recommendation [...] self-administe r their own oral medications per [facility] Protocol. Plan Of Treatment Future Test Test Name Order Date Echo doppler exam 09/26/2024 Ultrasound : Thyroid 09/26/2024 Insurance Providers Payer Name Payer Address Payer Phone Subscriber Number Group Number Insured Name Patient Relationship to Insured Coverage Start Date Coverage End Date [employer] [address] [place] [phone] [id number] Jaycee Rouse Self - patient is the insured 3 [employer] [address] [place] [phone] [id number] Jaycee Rouse Self - patient is the insured 5 [employer] [address] [place] [phone] [id number] Jaycee Rouse Self - patient is the insured 5 Medical (General) History Medical History History ICD Code Manic Depression Surgical History Surgery Date(Month/Year) 3 c-sections right hand has pins gall bladder removed Hospitalization History Reason Date(Month/Year) gateway, multiple times between 2023- 5 06/2024
--- OUTSIDE RECORDS SUMMARY | 2024-12-21 06:56 | XMS_ITS | Clinical Summary ---
Author Organization [facility] Address [address], [address] [address] Phone Care Team Providers Care Media Manager Name Role Phone Delisa Wendie N GOLD STAMPER, NURSING EDUCATION CONSULTANT Primary Care Provider [phone] Allergies Active Allergy Reactions Criticality Noted Date Comments Codeine Anaphylaxis,Shortnes s of Breath,Swelling High 07/13/2015 Ketorolac Other (see Comments) 07/13/2015 Rapid Heart Rate Naproxen Other (see Comments),Nausea 07/13/2015 No problems with Ibuprofen Penicillins Swelling,Hives,Short ness of Breath High 03/27/2014 swelling/hive Medications buprenorphine hcl-naloxone hcl (SUBOXONE) 4-1 MG FILM 0 09/29/2024 Active albuterol 108 (90 Base) MCG/ACT Aerosol Solution INHALE 2 PUFFS BY MOUTH 4 TIMES DAILY NEEDED WITH SPACER 11/13/2024 Active dextromethorphan -guaiFENesin (ROBITUSSIN-DM) 10-100 MG/5ML Liquid Take 10 mL by mouth every 4 hours as needed for Cough. 100 mL 11/17/2024 Active escitalopram (LEXAPRO) 10 MG TabletIndication s:Depression with anxiety Take 1 Tablet by mouth daily. 90 Tablet 11/21/2024 Active Active Problems No known active problems Encounters Date Type Department Care Team Description 12/19/2024 10:31 AM CDT - 12/19/2024 1:03 PM CDT Emergency [facility] Emergency [address] [place] [address] Willis Lee, PAC Chest pain Discharge Disposition: Discharged to home or Selfcare 12/19/2024 Travel 12/05/2024 Results Follow-Up [facility] [address] [place] [address] Delisa, Wendie Pizarro, GOLD STAMPER, NURSING EDUCATION CONSULTANT THYROID, VITAMIN D, 25 HYDROXY TOTAL, VITAMIN B12, Additional followed-up results: 5 12/02/2024 10:49 AM CDT - 12/02/2024 11:59 PM CDT Hospital Encounter [facility] Ultrasound [address] [place] [address] Delisa, Wendie Pizarro, GOLD STAMPER, NURSING EDUCATION CONSULTANT Discharge Disposition: Discharged to home or Selfcare 12/02/2024 Travel 11/21/2024 2:30 PM CDT Office Visit [facility] [address] [place] [address] Delisa, Wendie Pizarro, GOLD STAMPER, NURSING EDUCATION CONSULTANT Depression with anxiety (Primary Dx); At risk for sexually transmitted disease due to unprotected sex Discharge Disposition: Discharged to home or Selfcare 11/21/2024 Travel 11/17/2024 9:39 AM CDT - 11/17/2024 11:17 AM CDT Emergency [facility] Emergency [address] [place] [address] Hugh Palencia, DO Viral syndrome Discharge Disposition: Discharged to home or Selfcare 11/17/2024 Telephone [facility] [address] [place] [address] Oejohny, Wendie Pizarro, GOLD STAMPER, NURSING EDUCATION CONSULTANT 11/17/2024 Nurse Triage [facility] [address] [place] [phone] Oejohny, Wendie Pizarro, GOLD STAMPER, NURSING EDUCATION CONSULTANT Breathing Problem 11/16/2024 2:15 PM CDT Office Visit [facility] [address] [place] [address] Óscar Doss APRN, CNP Chest discomfort (Primary Dx) Discharge Disposition: Discharged to home or Selfcare 11/16/[address] [facility] Mammography [address] [place] [address] Wendie Hercules APRN, CNP 11/15/2024 10:03 PM CDT - 11/16/2024 12:06 AM CDT Emergency [facility] Emergency [address] [place] [address] Billy Cagle MD Chest pain, unspecified type Discharge Disposition: Discharged to home or Selfcare 11/15/2024 Travel 11/11/2024 Telephone [facility] [address] [place] [address] Wendie Hercules APRN, CNP Need Order 10/21/2024 2:00 PM CDT Office Visit [facility] [address] [place] [address] Wendie Hercules APRN, CNP Encounter for preventative adult health care exam with abnormal findings (Primary Dx); History of methadone use; Anxiety and depression; Nodule of left lobe of thyroid gland; Vaginal pain; Encounter for screening mammogram for breast cancer Discharge Disposition: Discharged to home or Selfcare 10/21/2024 Travel 10/21/2024 Telephone [facility] [address] [place] [phone] Provider, None New Patient from Last [...] Sign Reading Time Taken Comments Blood Pressure 115/66 12/19/2024 12:30 PM CDT Pulse 66 12/19/2024 12:30 PM CDT Temperature 36.1 C (96.9 F) 12/19/2024 10:37 AM CDT Respiratory Rate 15 12/19/2024 12:30 PM CDT Oxygen Saturation 100% 12/19/2024 12:30 PM CDT Inhaled Oxygen Concentration - - Weight 52.2 kg (115 lb) 12/19/2024 10:37 AM CDT Height 154.9 cm (5' 1) 12/19/2024 10:37 AM CDT Body Mass Index 21.73 12/19/2024 10:37 AM CDT Plan of Treatment Upcoming Encounters Date Type Department Care Team (Late st Contact Info) Description 01/03/2025 2:30 PM COREMAKER EXPERIMENTAL Office Visit [facility] [address] [place] [phone] Wendie Hercules N, GOLD STAMPER, NURSING EDUCATION CONSULTANT 2 [facility] [place]. [address] [place] [address] Health Maintenance Due Date Last Done Comments [...] Procedure Name Priority Date/Time Associated Diagnosis Comments TROPONIN I, HIGH SENSITIVITY (HSTRP) STAT 12/19/2024 12:33 PM CDT CBC WITH AUTO DIFFERENTIAL STAT 12/19/2024 10:44 AM CDT ETHYL ALCOHOL (ETHANOL) STAT 12/19/2024 10:44 AM CDT N-TERMINAL- PRO B TYPE NATRIURETIC PEPTIDE STAT 12/19/2024 10:44 AM CDT TROPONIN I, HIGH SENSITIVITY (HSTRP) STAT 12/19/2024 10:44 AM CDT MAGNESIUM (MG) STAT 12/19/2024 10:44 AM CDT CMP (COMPREHENSIVE METABOLIC PANEL) STAT 12/19/2024 10:44 AM CDT COMPLETE BLOOD COUNT (CBC) WITH DIFF STAT 12/19/2024 10:44 AM CDT EKG 12 LEAD STAT 12/19/2024 10:36 AM CDT EKG SCAN 12/19/2024 12:00 AM CDT US THYROID Routine 12/02/2024 11:09 AM CDT [...] CDT from Last 3 Months Results * TROPONIN I, HIGH SENSITIVITY (HSTRP) (12/19/2024 12:33 PM CDT) Only the most recent of4 resultswithin the time period is included. Pathologist [facility] [place] TROPONIN I, HIGH SENSITIVITY- OLIVA 2.9 <=14.0 ng/L 12/19/2024 1:10 PM CDT [facility] Comment: High-sensitivity troponin I results are reported in ng/L making the result appear to be 1,000 times higher than the contemporary troponin I value which is reported in ng/ml. Results from [facility]. Blood Venipuncture / Unknown 12/19/2024 12:33 PM CDT 12/19/2024 12:44 PM CDT us Willis Francisco Javier Lee PAC CHEMISTRY ORDERABLES Final Result [facility] [address] [place] [address] * NT-proBNP (12/19/2024 10:44 AM CDT) Pathologist [facility] [place] NT PROBNP 177.3 <450.0 pg/mL 12/19/2024 11:17 AM CDT [facility] Comment: AGE pg/mL INTERPRETATION All <300 Negative: HF (Heart Failure) unlikely 18 to <50 >=300.0 to <450.0 Indeterminate. Consider other causes of NT-proBNP elevation 50 to 75 >=300.0 to <900.0 Indeterminate. Consider other causes of NT-proBNP elevation >75 >=300.0 to <1800.0 Indeterminate. Consider other causes of NT-proBNP elevation 18 to <50 >=450.0 Positive: HF likely 50 to 75 >=900.0 Positive: HF likely >75 >=1800.0 Positive: HF likely Total protein levels at or above 12.6 mg/dl may falsely decrease NT-proBNP values. Blood Venipuncture / Unknown 12/19/2024 10:44 AM CDT 12/19/2024 10:50 AM CDT us Willis Mcintyre Jesus PAC CHEMISTRY ORDERABLES Final Result [facility] [address] [place] [address] * (ABNORMAL) CBC with Auto Differential (12/19/2024 10:44 AM CDT) Only the most recent of4 resultswithin the time period is included. WBC 5.71 4.00 - 12.00 10(3)/mcL 12/19/2024 10:52 AM CDT [facility] RBC 4.01 3.80 - 5.30 10(6)/mcL 12/19/2024 10:52 AM CDT [facility] HEMOGLOBIN (HGB) 12.2 12.0 - 15.8 g/dL 12/19/2024 10:52 AM CDT [facility] HEMATOCRIT (HCT) 37.7 36.0 - 47.0 % 12/19/2024 10:52 AM CDT [facility] MCV 94.0 82.0 - 96.0 fL 12/19/2024 10:52 AM CDT [facility] MCH 30.4 26.0 - 34.0 pg 12/19/2024 10:52 AM CDT [facility] MCHC 32.4 31.0 - 36.0 g/dL 12/19/2024 10:52 AM CDT [facility] PLATELET COUNT 396 140 - 440 10(3)/mcL 12/19/2024 10:52 AM CDT [facility] RDW 12.7 11.8 - 15.5 % 12/19/2024 10:52 AM CDT [facility] MPV 9.5(L) 9.7 - 12.4 fL 12/19/2024 10:[address] [facility] NEUTROPHILS 70.2 47.0 - 73.0 % 12/19/2024 10:[address] [facility] LYMPHOCYTES 20.1 18.0 - 42.0 % 12/19/2024 10:[address] [facility] MONOCYTES 8.1 4.0 - 12.0 % 12/19/2024 10:[address] [facility] EOSINOPHILS 0.7 0.0 - 5.0 % 12/19/2024 10:[address] [facility] BASOPHILS 0.7 0.0 - 1.0 % 12/19/2024 10:[address] [facility] IMMATURE GRANULOCYTE 0.2 0.0 - 0.4 % 12/19/2024 10:[address] [facility] ABSOLUTE NEUTROPHILS 4.01 1.60 - 7.70 10(3)/[facility] 12/19/2024 10:[address] [facility] ABSOLUTE LYMPHOCYTES 1.15(L) 1.30 - 3.20 10(3)/[facility] 12/19/2024 10:[address] [facility] ABSOLUTE MONOCYTES 0.46 0.20 - 1.00 10(3)/[facility] 12/19/2024 10:[address] [facility] ABSOLUTE EOSINOPHIL 0.04 0.00 - 0.40 10(3)/[facility] 12/19/2024 10:[address] [facility] ABSOLUTE BASOPHILS 0.04 0.00 - 0.10 10(3)/[facility] 12/19/2024 10:[address] [facility] ABSOLUTE IMMATURE GRANULOCYTE 0.01 0.00 - 0.03 10 (3) [facility]. 12/19/2024 10:[address] [facility] NRBC PER 100 WBC 0 12/20/19 10:52 AM [facility] Blood Venipuncture / Unknown 12/19/2024 10:44 AM CDT 12/19/2024 10:50 AM CDT Willis Lee PAC HEMATOLOGY ORDERABLE S Final Result Performing Organization Address City/[facility]/ZIP Co de Phone Number [facility] [address] [place] [address] * Magnesium (12/19/2024 10:44 AM CDT) Only the most recent of2 resultswithin the time period is included. MAGNESIUM 2.1 1.6 - 2.6 mg/dL 12/19/2024 11:13 AM CDT [facility] Blood Venipuncture / Unknown 12/19/2024 10:44 AM CDT 12/19/2024 10:50 AM CDT Willis Lee PAC CHEMISTRY ORDERABLES Final Result Performing Organization Address City/[facility] Co de Phone Number [facility] [address] [place] [address] * Ethyl Alcohol(Ethanol) SEY166 (12/19/2024 10:44 AM CDT) ETHANOL <10 <10 mg/dL 12/19/2024 11:13 AM CDT [facility] Blood Venipuncture / Unknown 12/19/2024 10:44 AM CDT 12/19/2024 10:50 AM CDT Narrative [facility] - 12/19/2024 11:13 AM CDT FOR MEDICAL USE ONLY Willis Lee PAC CHEMISTRY ORDERABLES Final Result [facility] [address] [place] [address] * CMP (12/19/2024 10:44 AM CDT) Only the most recent of4 resultswithin the time period is included. SODIUM 140 136 - 145 mmol/L 12/19/2024 11:[address] [facility] POTASSIUM 4.0 3.5 - 5.1 mmol/L 12/19/2024 11:[address] [facility] CHLORIDE 104 98 - 107 mmol/L 12/19/2024 11:[address] [facility] CO2, VENOUS 26 22 - 30 mmol/L 12/19/2024 11:13 AM CDT [facility] ANION GAP 14.0 <18.0 mmol/L 12/19/2024 11:[address] [facility] GLUCOSE 88 70 - 99 mg/dL 12/19/2024 11:[address] [facility] BUN 9 5 - 18 mg/dL 12/19/2024 11:[address] [facility] CREATININE, BLOOD 0.74 0.60 - 1.00 mg/dL 12/19/2024 11:[address] [facility] BUN/CREATININE RATIO 12 12 - 20 ratio 12/19/2024 11:[address] [facility] TOTAL PROTEIN 7.4 6.0 - 8.0 g/dL 12/19/2024 11:[address] [facility] ALBUMIN 4.4 3.5 - 5.0 g/dL 12/19/2024 11:[address] [facility] A/G RATIO 1.5 1.0 - 2.2 12/19/2024 11:[address] [facility] CALCIUM 9.4 8.7 - 10.5 mg/dL 12/19/2024 11:[address] [facility] T BILI 0.5 0.2 - 1.2 mg/dL 12/19/2024 11:[address] [facility] SGOT (AST) 24 <43 U/L 12/19/2024 11:13 AM CDT [facility] SGPT (ALT) 17 <56 U/L 12/19/2024 11:[address] [facility] ALKALINE PHOSPHATASE 74 40 - 150 U/L 12/19/2024 11:[address] [facility] GFR, ESTIMATED >60 >=60 12/19/2024 11:[address] [facility] Comment: Creatinine Clearance is the preferred criteria for selecting drug dose adjustments in renally impaired patients. The GFR is provided as additional pertinent clinical information. GFR is reported in mL/min/1.73 sq m. Calculation based on the 2020 Chronic Kidney Disease Epidemiology Collaboration (CKD-EPI) equation refit without adjustment for race. GFR, EST. >60 >=60 11:[address] [facility] Comment: Creatinine Clearance is the preferred criteria for selecting drug dose adjustments in renally impaired patients. The GFR is provided as additional pertinent clinical information. GFR is reported in mL/min/1.73 sq m. Calculation based on the 2009 Chronic Kidney Disease Epidemiology Collaboration (CKD-EPI). GFR, EST. NONAFRICAN >60 >=60 12/19/2024 11:[address] [facility] Comment: Creatinine Clearance is the preferred criteria for selecting drug dose adjustments in renally impaired patients. The GFR is provided as additional pertinent clinical information. GFR is reported in mL/min/1.73 sq m. Calculation based on the 2009 Chronic Kidney Disease Epidemiology Collaboration (CKD-EPI). Blood Venipuncture / Unknown 12/19/2024 10:44 AM CDT 12/19/2024 10:50 AM CDT Willis Lee PAC CHEMISTRY ORDERABLES Final Result [facility] [address] [place] [address] * EKG 12 LEAD (12/19/2024 10:36 AM CDT) Only the most recent of3 resultswithin the time period is included. Ventricular Rate 70 BPM EXTERNAL EKG Atrial Rate 70 BPM EXTERNAL EKG P-R Interval 118 ms EXTERNAL EKG QRS Duration 90 ms EXTERNAL EKG Q-T Duration 384 ms EXTERNAL EKG QTC CALCULATION 414 ms EXTERNAL EKG P Cass 63 degrees EXTERNAL EKG R Cass 60 degrees EXTERNAL EKG T Cass 52 degrees EXTERNAL EKG 12/19/2024 10:3 6 AM CDT Impressions EXTERNAL EKG - 12/19/2024 4:09 PM CDT Normal sinus rhythm Normal ECG When compared with ECG of 17-NOV-2024 09:47, No significant change was found Confirmed by Jn Nguyen ([id number]) on 12/19/2024 4:09:26 PM Narrative Procedure Note Jn Nguyen MD PhD - 12/19/2024 IMPRESSION: Normal sinus rhythm Normal ECG When compared with ECG of 17-NOV-2024 09:47, No significant change was found Confirmed by Jn Nguyen ([id number]) on 12/19/2024 4:09:26 PM us Billy Cagle MD IMG ECG ORDERABLES Final Result Performing Organization Address City/[facility] Co de Phone Number EXTERNAL EKG * EKG SCAN (12/19/2024 12:00 AM CDT) Only the most recent of3 resultswithin the time period is included. 12/19/2024 us Provider Scan IMG ECG ORDERABLES Final Result RESULTING AGENCY * US THYROID (12/02/2024 11:09 AM CDT) [...] PHYSICIAN: Mickey Mccarty D.O. - [facility] US THYROID, 12/02/2024 11:09 AM [...] (2) with internal vascularity. Echogenicity: Hyperechoic (1). [id number]-[id number]-Lsax: no (0). Margins: Smooth (0). Echogenic foci: None (0). ACR TI-RADS Classification: TR 3 (3 points) Procedure Note Mickey Mccarty, - 12/03/2024 DICTATING PHYSICIAN: Mickey Mccarty D.O. - [facility] US THYROID, 12/02/2024 11:09 AM CLINICAL [...] solid (2) with internalvascularity. Echogenicity: Hyperechoic (1). Whxekp-scgt-Vqol: no (0). Margins: Smooth (0). Echogenic foci: [...] the 2017 [employer]. us May N Oehl GOLD STAMPER, NURSING EDUCATION CONSULTANT IMG US ORDERABLES Final R esult * VITAMIN D, 25 HYDROXY TOTAL (12/02/2024 10:47 AM CDT) VITAMIN D, 25 HYDROX 27.9 ng/mL 12/02/2024 12:[address] [facility] Blood Venipuncture / Unknown 12/02/2024 10:47 AM CDT 12/02/2024 11:[address] [facility] - 12/02/2024 12:19 PM CDT Published reference ranges for Vitamin D vary depending on time and place and method of testing, and on patient's age, sex, ethnicity and levels of other measured analytes such as parathormone, calcium and phosphorus. The result should be evaluated in conjunction with clinical findings and suspicions. [place] [employer] and [employer] Clinical Practice Guidelines: Status Vitamin D levels (ng/mL) Deficient <=20 At risk of inadequacy 21-29 Sufficient 30-100 Centers of Disease Control and Prevention Guidelines: Status Vitamin D levels (ng/mL) Deficient <13 At risk of inadequacy 13-19 Sufficient 20-50 Possibly harmful >50 References: [place] [employer], 2010 Dietary reference intakes for calcium and vitamin D. [place]: The National Academies Press. Betsy M, Ariadne N, Glen ZAMUDIO, et al., Evaluation, treatment, and prevention of Vitamin D deficiency: an Endocrinology Clinical Practice Guideline. JCEM 2011 96: 7 1478-0086. Kenan A, Desmond C, Tyra D, et al., Vitamin D Status: [place], 6131-4781, [facility] data brief, no. 59, MD [place]: National Center for Health Statistics. 2011. us May N Vibhahl GOLD STAMPER, NURSING EDUCATION CONSULTANT CHEMISTRY ORDERABLES Adelaide l Result [facility] [address] [place] [address] * THYROID SCREEN WITH REFLEX (12/02/2024 10:47 AM CDT) TSH 1.382 0.300 - 5.000 mIU/L 12/02/2024 12:07 PM CDT [facility] Blood Venipuncture / Unknown 12/02/2024 10:47 AM CDT 12/02/2024 11:12 AM CDT us May N Delisa BRISCOE, ELVIA CHEMISTRY ORDERABLES Adelaide l Result [facility] [address] [place] [address] * VITAMIN B12 (12/02/2024 10:47 AM CDT) VITAMIN B12 418 213 - 816 pg/mL 12/02/2024 12:19 PM CDT [facility] Blood Venipuncture / Unknown 12/02/2024 10:47 AM CDT 12/02/2024 11:12 AM CDT us May N Delisa BRISCOE CNP CHEMISTRY ORDERABLES Adelaide l Result Performing Organization Address City/[facility]/ZIP Co de Phone Number [facility] [address] [place] [address] * THYROXINE (T4) FREE (12/02/2024 10:47 AM CDT) T4 FREE 0.8 0.7 - 1.9 ng/dL 12/02/2024 12:08 PM CDT [facility] Blood Venipuncture / Unknown 12/02/2024 10:47 AM CDT 12/02/2024 11:12 AM CDT us May N Delisa BRISCOE CNP CHEMISTRY ORDERABLES Adelaide l Result [facility] [address] [place] [address] * LIPID PANEL (12/02/2024 10:47 AM CDT) CHOLESTEROL 175 <200 mg/dL 12/02/2024 11:[address] [facility] TRIGLYCERIDES 127 <150 mg/dL 12/02/2024 11:[address] [facility] HDL CHOLESTEROL 55 >40 mg/dL 11:[address] [facility] LDL 95 <130 mg/dL 12/02/2024 11:[address] [facility] VLDL 25 10 - 50 mg/dL 12/02/2024 11:[address] [facility] CHOL/HDL RATIO 3.2 0.0 - 4.4 12/02/2024 11:[address] [facility] NON-HDL CHOLESTEROL 120 <130 mg/dL 12/02/2024 11:[address] [facility] IS THE PATIENT REQUIRED TO BE FASTING? Yes 12/02/2024 11:54 AM [facility] HAS THE PATIENT BEEN FASTING? Yes 12/02/2024 11:54 AM [facility] Blood Venipuncture / Unknown 12/02/2024 10:47 AM CDT 12/02/2024 11:[address] [facility] - 12/02/2024 11:54 AM T NCEP GUIDELINES FOR LIPID INTERPRETATION TOTAL CHOLESTEROL [...] above target levels for LDL cholesterol. may Oehl GOLD STAMPER, NURSING EDUCATION CONSULTANT CHEMISTRY ORDERABLES Adelaide l Result [facility] [address] [place] [address] * RSV,SARS-COV-2,INFLUENZA A&B BY PCR (11/17/2024 9:55 AM CDT) FLU A Negative Negative, Error 11/17/2024 11:19 AM CDT [facility] FLU B Negative Negative 11/17/2024 11:19 AM CDT [facility] RESP SYNC VIRUS Negative Negative 11:19 AM CDT [facility] SARSCOV2 NOT DETECTED (Reference Range for this test is Not Detected) 11/17/2024 11:19 AM CDT [facility] Comment:This test was perfor med by a Reverse Field Captain PCR Method. Nasal NASOPHARYNGEAL STRUCTURE / Unknown Non-Phlebotomy Collection / Unknown 11/17/2024 9:55 AM CDT 11/17/2024 10:36 AM CDT us Hugh Palencia DO MICROBIOLOGY - GENERAL ORDERABLES Final Result [facility] [address] [place] [address] * Gold Top Tube (11/17/2024 9:45 AM CDT) Blood No Phlebotomy Charged / Unknown 11/17/2024 9:45 AM CDT 11/17/2024 10:38 AM CDT us Hugh Palencia DO CHEMISTRY ORDERABLES Fi nal Result [facility] [address] [place] [address] * Blue Top Tube (11/17/2024 9:45 AM CDT) Blood No Phlebotomy Charged / Unknown 11/17/2024 9:45 AM CDT 11/17/2024 10:38 AM CDT us Hughkaylee Mclain Talha DO HEMATOLOGY ORDERABLES F inal Result [facility] [address] [place] [address] * XR CHEST SINGLE VIEW PORTABLE (11/15/2024 [...] Result * Human Chorionic Gonadotropin Scrn Serum [id number] (11/15/2024 10:26 PM CDT) PREG-HCG Negative Negative 11/15/2024 11:28 PM CDT [facility] Blood Venipuncture / Unknown 11/15/2024 10:26 PM CDT 11/15/2024 11:06 PM CDT us Billy Cagle MD CHEMISTRY ORDERABLES Adelaide l Result [facility] [address] [place] [address] * Lipase (11/15/2024 10:26 PM CDT) LIPASE 19 8 - 78 U/L 11/15/2024 11:28 PM CDT [facility] Blood Venipuncture / Unknown 11/15/2024 10:26 PM CDT 11/15/2024 11:06 PM CDT Billy Cagle MD CHEMISTRY ORDERABLES Adelaide l Result [facility] [address] [place] [address] from Last 3 Months Insurance MEDICAID [place] Care Teams Media Manager Relationship Specialty Start Date End Date Delisa, May N, GOLD STAMPER, NURSING EDUCATION CONSULTANT [address] [address] PCP - General Advanced Practice Nurse 10/21/24
--- OUTSIDE RECORDS SUMMARY | 2024-12-21 06:56 | XMS_ITS | Clinical Summary ---
Author Organization [facility] Address [address] [place] [address] Care Team Providers Care Vehicle Body Builder Name Role Phone Christofer Stewart MD Primary [...] 1.7 cm about 1.5 years ago in [facility] - obtain US of thyroid, labs [...] Encounters Date Type Department Care Team Description 12/17/2024 7:57 PM CDT - 12/17/2024 8:46 PM CDT Emergency [facility] Emergency Department [facility] [place] [address] Discharge Disposition: Left without being seen 10/21/2024 Telephone [facility] Primary Care at [place] [address] [facility] [address] [place] [address] Christofer Stewart MD 10/17/2024 1:35 AM CDT - 10/17/2024 2:55 AM CDT Emergency [facility] Emergency Department 1 [place] [address] Jamarcus Irvin MD Kanumuri, Raghu, MD Chest pain, unspecified type (Primary Dx) Discharge Disposition: Discharge to home or self care from Last 3 Months Surgical History Surgery [...] making you feel afraid or unsafe? 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 Gender Identity Not on file Sexual Orientation Not on file Obstetrics History Para Term AB IAB SAB Ectopic Multiple Livin g Live Births 9 2 2 6 Date Outcome GA Total Labor Labor/2nd/3rd Weight Sex Type Anes PTL Pati A1 A5 Name Clin IAB IAB Last Filed Vital Signs Vital Sign Reading Time Taken Comments Blood Pressure 130/48 12/17/2024 8:03 PM CDT Pulse 65 12/17/2024 8:03 PM CDT Temperature 36.6 C (97.9 F) 12/17/2024 8:03 PM CDT Respiratory Rate 16 12/17/2024 8:03 PM CDT Oxygen Saturation 98% 12/17/2024 8:03 PM CDT Inhaled Oxygen Concentration - - Weight 53.9 kg (118 lb 13.3 oz) 12/17/2024 8:03 PM CDT Height 154.9 cm (5' 1) 12/17/2024 8:03 PM CDT Body Mass Index 22.45 12/17/2024 8:03 PM CDT Plan of Treatment Health Maintenance [...] XR CHEST PA LATERAL 2 VIEWS ED 12/17/2024 8:23 PM CDT EGFR STAT 12/17/2024 8:10 PM CDT DIFFERENTIAL AUTO STAT 12/17/2024 8:1 0 PM CDT TROPONIN T HIGH-SENSITIVITY SERIES (BASELINE, 2HR, 4HR, 6HR) STAT 12/17/2024 8:10 PM CDT COMPREHENSIVE METABOLIC PANEL STAT 12/17/2024 8:10 PM CDT CBC WITH AUTO DIFFERENTIAL STAT 12/17/2024 8:10 PM CDT ECG 12-LEAD STAT 12/17/2024 8:02 PM CDT XR CHEST PA LATERAL 2 VIEWS ED 10/17/2024 2:20 AM CDT ECG 12-LEAD STAT 10/17/2024 12:07 AM CDT from Last 3 Months Results * XR Chest PA Lateral 2 Views (If patient hemodynamically stable and ambulatory) (12/17/2024 8:23 PM CDT) Anatomical Region Laterality Modality Body, Chest N/A Computed Radiogr aphy 12/17/2024 8:29 PM CDT Impressions 12/17/2024 8:29 PM CDT FINDINGS/IMPRESSION: Lungs: The lungs are clear. Mediastinum: Mediastinal structures appear unremarkable... Skeletal: The skeletal structures appear unremarkable. Electronically signed by: Rick Grijalva M.D. Narrative 12/17/2024 8:29 PM CDT MEDICAL RECORDS NUMBER: [id number] PROCEDURE: XR CHEST PA LATERAL 2 VIEWS DATE: 12/17/2024 8:20 PM HISTORY: 44 years old Female. chest pain Views: 2 COMPARISON: 10/17/2024 Procedure Note Rick Grijalva MD - 12/17/2024 MEDICAL RECORDS NUMBER: [id number] PROCEDURE: XR CHEST PA LATERAL 2 VIEWS DATE: 12/17/2024 8:20 PM HISTORY: 44 years old Female. chest pain Views: 2 COMPARISON: 10/17/2024 IMPRESSION: FINDINGS/IMPRESSION: Lungs: The lungs are clear. Mediastinum: Mediastinal structures appear unremarkable... Skeletal: The skeletal structures appear unremarkable. Electronically signed by: Rick Grijalva M.D. Hannah Muro Jr., MD IMG XR PROCEDURES Final Result * Troponin T high-sensitivity series (baseline, 2hr, 4hr, 6hr) (12/17/2024 8:10 PM CDT) Trop T hs 7 <=14 ng/L Comment: Interpretive Data For further hscTnT resources including the diagnostic algorithm and an aid in interpretation, copy and paste this link: https://nrl.testcatalog.org/show/hsTrop Current Interpretive Data last revised 2020. Testing performed by: [address] [address] Blood 12/17/2024 8:10 PM CDT 12/17/2024 8:14 PM CDT Hannah Muro Jr., MD LAB BLOOD ORDERABLES Fi nal Result Performing Organization Address City/[facility]/ZIP Co de Phone Number RAUL [address] [place] [address] * eGFR (12/17/2024 8:10 PM CDT) eGFR >90 >=60 mL/min/1. 73 m2 Comment: Interpretive Data Reference Interval Normal >/= 90 mL/min/1.73m2 Mildly decreased* 60 - 89 mL/min/1.73m2 Mildly to moderately decreased 45 - 59 mL/min/1.73m2 Moderately to severely decreased 30 - 44 mL/min/1.73m2 Severely decreased 15 - 29 mL/min/1.73m2 Kidney Failure < 15 mL/min/1.73m2 *Relative to young adult level Estimated glomerular filtration rate is determined by the 2020 CKD-EPI equation recommended by the National Kidney Foundation (A Unifying Approach to GFR Estimation: Recommendations of the NKF-ASK Task Force on Reassessing the Inclusion of Race in Diagnosing Kidney Disease, JASN 2020). The CKD-EPI equation should not be used for patients with unstable renal function and has not been validated in children and those over 70. Current interpretive data was last reviewed 2020. Testing performed by: [facility], [address] [place] [address]., [address] Blood 12/17/2024 8:10 PM CDT 12/17/2024 8:14 PM CDT us Hannah Muro Jr., MD LAB BLOOD ORDERABLES Fi nal Result Performing Organization Address City/[facility]/ZIP Co de Phone Number RAUL [address] [place] [address] * Differential, auto (12/17/2024 8:10 PM CDT) [facility] Neutrophil abs 4.44 1.50 - 6.50 K/cumm Comment:Testing performed by : [address] [address] Imm gran abs 0.01 0.00 - 0.10 K/cumm [facility] Comment:Testing performed by : [address] [address] Lymphocyte abs 2.64 0.80 - 3.30 K/cumm [facility] Comment:Testing performed by : [address] [address] Monocyte abs 0.68 0.20 - 0.80 K/cumm [facility] Comment:Testing performed by : [address] [address] Eosinophil abs 0.10 0.00 - 0.50 K/cumm [facility] Comment:Testing performed by : [address] [address] Basophil abs 0.04 0.00 - 0.10 K/cumm [facility] Comment:Testing performed by : [address] [address] Neutrophil pct 56.1 % [facility] Comment: Interpretive Data Percent cell count reference ranges are not reported, since discordance with absolute values may lead to misinterpretation of CBC data. Current Interpretive Data was last revised on 2017. Testing performed by: [address] [address] Imm gran pct 0.1 % [facility] Comment: Interpretive Data Percent cell count reference ranges are not reported, since discordance with absolute values may lead to misinterpretation of CBC data. Current Interpretive Data was last revised on 2017. Testing performed by: [address] [address] Lymphocyte pct 33.4 % [facility] Comment: Interpretive Data Percent cell count reference ranges are not reported, since discordance with absolute values may lead to misinterpretation of CBC data. Current Interpretive Data was last revised on 2017. Testing performed by: [address] [address] Monocyte pct 8.6 % [facility] Comment: Interpretive Data Percent cell count reference ranges are not reported, since discordance with absolute values may lead to misinterpretation of CBC data. Current Interpretive Data was last revised on 2017. Testing performed by: [address] [address] Eosinophil pct 1.3 % RAUL Comment: Interpretive Data Percent cell count reference ranges are not reported, since discordance with absolute values may lead to misinterpretation of CBC data. Current Interpretive Data was last revised on 2017. Testing performed by: [address] [address] Basophil pct 0.5 % RAUL Comment: Interpretive Data Percent cell count reference ranges are not reported, since discordance with absolute values may lead to misinterpretation of CBC data. Current Interpretive Data was last revised on 2017. Testing performed by: [address] [address] Blood 12/17/2024 8:10 PM CDT 12/17/2024 8:14 PM CDT us Hannah Muro Jr., MD LAB BLOOD ORDERABLES nal Result [facility] [address] [facility] Department [place] [address] * (ABNORMAL) CBC with auto differential (12/17/2024 8:10 PM CDT) WBC 7.91 3.80 - 9.90 K/cumm Comment:Testing performed by : [address] [address] Hgb 11.2(L) 11.9 - 15.5 g/dL [facility]UL [facility] Comment:Testing performed by : [address] [address] Hct 32.7(L) 35.6 - 45.5 % [facility] Comment:Testing performed by : [address] [address] Plt 367 150 - 400 K/cumm [facility]UL [facility]ON Comment:Testing performed by : [address] [address] MPV 9.4 9.1 - 12.3 fL RAUL Comment:Testing performed by : [address] [address] RBC 3.68(L) 3.90 - 5.20 M/cumm [facility]ON Comment:Testing performed by : [address] [address] MCV 88.9 81.3 - 96.4 fL RAUL Comment:Testing performed by : [address] [address] MCH 30.4 27.1 - 33.3 pg RAUL Comment:Testing performed by : [address] [address] MCHC 34.3 32.3 - 35.7 g/dL RAUL Comment:Testing performed by : [address] [address] RDW CV 12.9 11.1 - 14.9 % RAUL Comment:Testing performed by : [address] [address] RDW SD 42.3 35.7 - 48.1 fL RAUL Comment:Testing performed by : [address] [address] NRBC abs 0.00 0.00 - 0.01 K/cumm RAUL Comment:Testing performed by : [address] [address] Blood Venous blood specimen / Unknown 12/17/2024 8:10 PM CDT 12/17/2024 8:14 PM CDT us Hannah Muro Jr., MD LAB BLOOD ORDERABLES Fi nal Result RAUL [address] [facility] Department [place] [address] * (ABNORMAL) Comprehensive metabolic panel (12/17/2024 8:10 PM CDT) Sodium 139 135 - 145 mmol/L Comment:Testing performed by : [address], [place]., [address] Potassium, pl 4.0 3.3 - 4.9 mmol/L RAUL Comment:Testing performed by : [address], [place]., [address] Chloride 104 97 - 110 mmol/L RAUL Comment:Testing performed by : [address], [place]., [address] CO2 26 22 - 32 mmol/L RAUL Comment:Testing performed by : [address], [place]., [address] Anion gap 9 2 - 15 mmol/L RAUL Comment:Testing performed by : [address], [place]., [address] BUN 17 6 - 25 mg/dL RAUL Comment:Testing performed by : [address], [place]., [address] Creatinine 0.80 0.60 - 1.10 mg/dL RAUL Comment:Testing performed by : [address], [place]., [address] Glucose 103 70 - 199 mg/dL [facility] Comment: Interpretive Data Fasting glucose >/= 126 mg/dl is diagnostic for diabetes. Fasting is defined as no caloric intake for at least 8 hours. Fasting glucose between 100 mg/dl to 125 mg/dl is diagnostic of prediabetes. In a patient with classic symptoms of hyperglycemia or hyperglycemic crisis, a random glucose >/= 200 mg/dl is diagnostic for diabetes. In the absence of unequivocal hyperglycemia, results should be confirmed by repeat testing. The classification and Diagnosis of Diabetes Diabetes Care 202; 46: S19-S40. Current interpretive data was last revised 2022. Testing performed by: [address] [address] Calcium 9.1 8.5 - 10.3 mg/dL RAUL Comment:Testing performed by : [address], [place]., [address] Bilirubin, total 0.2 0.1 - 1.2 mg/dL RAUL Comment:Testing performed by : [address] [address] Protein, pl 6.3(L) 6.5 - 8.5 g/dL RAUL Comment:Testing performed by : [address] [address] Albumin 3.9 3.5 - 5.0 g/dL RAUL COLON Comment:Testing performed by : [address], [address] Alk phos 69 40 - 130 Units/L RAUL Comment:Testing performed by : [address] [address] ALT 10 7 - 45 Units/L RAUL Comment:Testing performed by : [address], [address] AST 16 10 - 45 Units/L RAUL Comment:Testing performed by : [address], [address] Blood 12/17/2024 8:10 PM CDT 12/17/2024 8:14 PM CDT us Hannah Muro Jr., MD LAB BLOOD ORDERABLES Fi nal Result RAUL [address] [facility] Department of Laboratories [place], [place] [id number] * ECG 12 lead (12/17/2024 8:02 PM CDT) Ventricular Rate EKG/Min 67 BPM [facility] Atrial Rate 67 BPM [facility] IL-Interval (MSEC) 120 ms [facility] QRS-Interval (MSEC) 94 ms [facility] QT-Interval (MSEC) 392 ms [facility] QTc 414 ms [facility] P Platte 65 degrees [facility] R Platte 60 degrees [facility] T Platte 58 degrees [facility] Diagnosis Normal sinus rhythm Possible Left atrial enlargement Borderline ECG No previous ECGs available Confirmed by MD KARI, HANNAH ([id number]) on 12/18/2024 10:03:54 AM [facility] 12/17/2024 8:02 PM CDT 12/18/2024 10:03 AM CDT us Hannah Muro Jr., MD ECG ORDERABLES Final R esult [facility] * XR Chest Pa Lateral 2 Vw (10/17/2024 2:20 AM CDT) Anatomical Region Laterality Modality Body, Chest N/A Computed Radiogr aphy 10/17/2024 2:35 AM CDT Narrative 10/17/2024 2:36 AM CDT EXAM DESCRIPTION: XR CHEST PA LATERAL 2 VIEWS REASON FOR STUDY: cough Pt has flight of ideas and multiple medical complaints arrived via [place] [facility] [place] this AM. Smoker TECHNIQUE: Frontal and lateral [...] Ml Foster M.D. SN: SN Report ID: [id number] Reading Location: [id number] Procedure Note Ml Foster MD - 10/17/2024 EXAM DESCRIPTION: XR CHEST PA LATERAL 2 VIEWS REASON FOR STUDY: cough Pt has flight [place] [facility] [place]. Smoker TECHNIQUE: Frontal and lateral [...] Ml Foster M.D. SN: SN Report ID: [id number] Reading Location: [id number] us Tre Roche MD IMG XR PROCEDURES Final Result * ECG 12 lead (10/17/2024 12:07 AM CDT) 10/17/2024 12:0 7 AM CDT Narrative [facility] - 10/17/2024 6:47 AM CDT Vent Rate: 84 bpm RR Interval: 709 msec IL Interval: 111 msec QRS Duration: 96 msec QT Interval: 362 msec QTC Interval: 403 msec P-R-T Platte: 80 - 73 - 64 degrees IMPRESSION: Baseline artifact, probable SINUS RHYTHM WITH SHORT IL INTERVAL LEFT ATRIAL ENLARGEMENT [-0.15mV P WAVE IN V1/V2] POSSIBLE LEFT VENTRICULAR HYPERTROPHY [VOLTAGE CRITERIA PLUS LAE OR QRS WIDENING] ABNORMAL ECG NO CHANGE FROM PREVIOUS TRACING NOTED Electronically Signed By: Francois Casarez MD us Jamarcus Irvin MD ECG ORDERABLES Final Result [facility] from Last 3 Months Insurance [facility] Advance Directives For more information, please contact: [phone] * Full Code (Latest Code Status on File) Date Activated Date Inactivated Comments 10/20/2023 12:17 PM 10/20/2023 8:58 PM Care Teams Vehicle Body Builder Relationship Specialty Start Date End Date Christofer Stewart MD PCP - General Family Medicine 06/23/23
--- OUTSIDE RECORDS SUMMARY | 2024-12-21 06:57 | XMS_ITS | Encounter Summary ---
Author Organization [facility] Address [facility] [place] [address] Care Team Providers Care Button Tufter Name Role Phone None, Provider Primary Care Provider Francisco Javier Santana MD Primary Care Provider [phone] Encounter Details Date Type Department Care Team (Late st Contact Info) Description 07/31/2018 Abstract [facility] CONVERSION [address] [place] [address] , Generic Conversion, Social History Tobacco Use [...] documented as of this encounter Care Teams Button Tufter Relationship Specialty Start Date End Date None, Provider, PCP - General UNKNOWN PHYSICIAN SPECIALTY 07/13/23 06/04/24 Francisco Javier Ivan MD [address] [address] PCP - General FAMILY PRACTICE 06/05/24 documented as of this encounter
--- OUTSIDE RECORDS SUMMARY | 2024-12-21 06:57 | XMS_ITS | Clinical Summary ---
Author Organization [facility] [employer] Address [address] [place] [address] Care Team Providers Care Camp Program Director Name Role Phone Mario Logan MD Primary Care Provider [phone] Source Comments [facility] [employer],non-owned Affiliates and Associated Physician Practices is amultiple site organization consisting of ambulatory clinics and hospital sitesin [place], [place], [place] and [place]. This disclosure is being madepursuant to the Care Everywhere program and may not contain all information available regarding this patient. Last updated 17.[facility] [employer] Allergies Active Allergy Reactions Criticality Noted Date [...] naloxone HCl (NARCAN) 4 MG/0.1ML nasal spray [place] 1 spray into the nose as needed [...] migh t be different from the original. [id number] Problem Noted Date Diagnosed Date Non-reactive NST [...] 02/28/2014 Overview (05/05/2019): Confirmed dose-270 mg from [facility]. Scanned Into media. Previously used [...] on file Legal Sex Female 7:09 AM [employer] Gender Identity Not on file Sexual [...] P24 AG PANEL Routine 03/10/2019 1:24 PM [employer] Supervision of high risk in second trimester HEPATITIS C ANTIBODY Routine 11/11/2018 12:07 PM CDT Supervision of high risk , antepartum from Last 3 Months or Most Recently Relevant to Health Maintenance Results * HIV-1 HIV-2 ANTIBODY + HIV P24 AG PANEL (03/10/2019 1:24 PM [employer]) Pathologist [facility] HIV1/2 Ab + P24 Ag Non Reactive Non Reactive 03/10/2019 2:57 PM [employer] [facility] Blood BLOOD SPECIMEN / Unknown Venipuncture / Unknown 03/10/2019 1:24 PM [employer] 03/10/2019 1:49 PM [employer] Narrative [facility] - 03/10/2019 2:57 PM [employer] No Laboratory evidence of HIV infection. us Ivana Thomas DISPATCHER REFINERY-LOAD DROPPER LAB - CHEMISTRY ORDERAB LES Final Result [facility] [address] [place] [address] * HEPATITIS C ANTIBODY (11/11/2018 12:07 PM CDT) HCV Antibody Screen Non Reactive Non Reactive 11/11/2018 1:55 PM CDT [facility] HCV S/C Ratio 0.19 0.00 - 0.79 11/11/2018 1:55 PM CDT [facility] Comment: Abdykd-sf-gekiej ratio (S/CO) <0.80: Non Reactive Blood BLOOD SPECIMEN / Unknown Venipuncture / Unknown 11/11/2018 12:07 PM CDT 11/11/2018 12:56 PM CDT Narrative [facility] - 11/11/2018 1:55 PM CDT Non Reactive - Antibodies to Hepatitis C virus (HCV) were not detected, result does not exclude early acute HCV infection. Helen Zurita DISPATCHER REFINERY-LOAD DROPPER LAB - CHEMISTRY ORDERA BLES Final Result Performing Organization Address City/State/[facility] Co de Phone Number [facility] [address] [place] [address] from Last 3 Months or Most Recently Relevant to Health Maintenance Insurance [facility] Advance Directives * Full Code (Latest [...] 11:00 AM 03/17/2019 7:31 PM Care Teams Camp Program Director Relationship Specialty Start Date End Date Mario Logan MD [address] [address] PCP - General 05/24/19
--- OUTSIDE RECORDS SUMMARY | 2024-12-21 06:57 | XMS_ITS | Clinical Summary ---
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 5 Active predniSONE 50 MG tablet Take 1 tablet (50 mg total) by mouth daily for 10 days. 10 tablet 5 12/26/19 25 Active cyclobenzaprin e (FLEXERIL) 10 MG tablet Take 1 tablet (10 mg total) by mouth 3 (three) times daily as needed for Muscle Spasms. 15 tablet 5 12/29/19 25 Active hydrOXYzine (VISTARIL) 25 MG capsule Take 1 capsule (25 mg total) by mouth 4 (four) times daily as needed for Anxiety. 5 12/15/19 25 Discontinued OLANZapine (ZYPREXA) 10 MG tablet Take 1 tablet (10 mg total) by mouth nightly at bedtime. 5 12/15/19 25 Discontinued traZODone (DESYREL) 100 MG tablet Take 1 tablet (100 mg total) by mouth nightly at bedtime. 5 12/15/19 25 Discontinued multi vitamin/minera ls (THERA-M ENHANCED) tablet Take 1 tablet by mouth daily. 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 Encounters Date Type Department Care Team Description 12/17/2024 11:53 PM CDT - 12/18/2024 2:43 AM CDT Emergency [facility] Emergency [address] [place] [id number] Billy Mayfield DO Chest Pain Discharge Disposition: Home or Self Care (Routine Discharge) 12/17/2024 Travel 12/15/2024 2:10 AM CDT - 12/15/2024 3:41 AM CDT [facility] [address] [place] [address] [address] [place] [address] Jens Rhodes MD Abdominal Pain Discharge Disposition: Home or Self Care (Routine Discharge) 12/15/2024 Travel 12/14/2024 7:01 PM CDT - 12/14/2024 11:09 PM CDT [facility] [address] [place] [address] [address] [place] [address] Jens Rhodes MD Chest Pain; Shortness Of Breath Discharge Disposition: Home or Self Care (Routine Discharge) 12/14/2024 Travel 10/18/2024 9:46 AM CDT - 10/18/2024 10:30 PM CDT Emergency [facility] [place] [address] Yovana Zamora MD Geldmacher, Kelly J, MD Medical Problem Discharge Disposition: [facility] 10/17/2024 2:59 PM CDT - 10/17/2024 8:00 PM CDT [facility] [address] [place] [address] [address] [place] [address] Familia Carter MD Medical Problem Discharge Disposition: Home or Self Care (Routine Discharge) 10/17/2024 Travel from Last 3 Months Social History Tobacco Use Types Packs/Day Years Used Date Smoking Tobacco: Every Day Cigarettes Smokeless Tobacco: Never Tobacco Cessation:Ready to Q uit: Not Asked; Counseling Given: Not Answered Alcohol Use Standard Drinks/Week Comments Not Currently 0 (1 standard drink = 0.6 oz pur e alcohol) [facility] Utilities Answer Date Recorded In [...] any time in the past 12 m [facility], were you homeless or living in a fpc (including now)? Yes 10/13/2023 Comments No Sex and Gender Information Value Date Recorded Sex Assigned at Female 10/17/2024 3:24 PM CDT Legal Sex Female 11:36 PM CDT Gender Identity Not on file Sexual Orientation Not on file Last Filed Vital Signs Vital Sign Reading Time Taken Comments Blood Pressure 83/62 12/18/2024 2:30 AM CDT Pulse 55 12/18/2024 2:30 AM CDT Temperature 36.5 C (97.7 F) 12/17/2024 11:30 PM CDT Respiratory Rate 11 12/18/2024 2:30 AM CDT Oxygen Saturation 96% 12/18/2024 2:30 AM CDT Inhaled Oxygen Concentration - - Weight 54 kg (119 lb 0.8 oz) 12/17/2024 11:30 PM CDT Height 154.9 cm (5' 1) 12/17/2024 11:30 PM CDT Body Mass Index 22.49 12/17/2024 11:30 PM CDT Plan of Treatment Health Maintenance [...] Mammogram Screening 2022 COVID-19 Vaccine ( season) 2024 Influenza Adult (#1) 2024 12/09/2018, [...] Procedure Name Priority Date/Time Associated Diagnosis Comments ECG 12-LEAD STAT 12/18/2024 12:05 AM CDT D-DIMER, QUANTITATIVE STAT 12/18/2024 12:00 AM CDT HC HCG QN STAT 12/18/2024 12:00 AM CDT LIPASE STAT 12/18/2024 12:00 AM CDT COMPREHENSIVE METABOLIC PANEL STAT 12/18/2024 12:00 AM CDT PROTHROMBIN TIME, VENOUS STAT 12/18/2024 12:00 AM CDT CBC W/DIFF AUTOMATED STAT 12/18/2024 12:00 AM CDT TROPONIN, QUANT STAT 12/15/2024 2:38 AM CDT COMPREHENSIVE METABOLIC PANEL STAT 12/15/2024 2:38 AM CDT CBC W/DIFF AUTOMATED STAT 12/15/2024 2:38 AM CDT XR CHEST PORTABLE STAT 12/14/2024 9:3 1 PM CDT TROPONIN, QUANT STAT 12/14/2024 9:25 PM CDT COMPREHENSIVE METABOLIC PANEL STAT 12/14/2024 9:25 PM CDT CBC W/DIFF AUTOMATED STAT 12/14/2024 9:25 PM CDT ECG 12-LEAD Routine 12/14/2024 6:[address] HEAD WO CON STAT 10/18/2024 8:19 [...] Recently Relevant to Health Maintenance Results * ECG 12 lead (12/18/2024 12:05 AM CDT) Only the most recent of4 resultswithin the time period is included. 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1980 Requested By: DINESH FUNG Order Number: [id number] Reading MD: Chaim Wood Measurements Intervals [place] Rate: 55 P: 73 NM: 126 QRS: 66 QRSD: 94 T: 64 QT: 427 QTc: 409 Interpretive Statements SINUS BRADYCARDIA POSSIBLE LEFT ATRIAL ENLARGEMENT small nondiagnostic inferior-lateral q-waves Procedure Note Chaim Wood MD - 12/18/2024 [facility] Test Date: 2024-12-18 Pat Name: JJ SLATER Department: 70 Room: EXAM Q Gender: Female 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 INR 0.9 0.8 - 1.1 12/18/2024 12:[address] [facility] 12/18/2024 Dinesh Fung NP LABORATORY Final Result Performing Organization Address City/[facility] Co de Phone Number [facility] [address] [place] [address], [phone] * (ABNORMAL) COMPREHENSIVE METABOLIC PANEL (12/18/2024 12:00 AM CDT) Only the most recent of4 resultswithin the time period is included. SODIUM S/P/B 140 136 - 145 MMOL/L 12/18/2024 1:[address] [facility] POTASSIUM S/P/B 3.7 3.5 - 5.1 MMOL/L 12/18/2024 1:[address] [facility] CHLORIDE S/P/B 108 97 - 115 MMOL/L 12/18/2024 1:07 AM [facility] CO2 27.2 21.0 - 32.0 MMOL/L 12/18/2024 1:07 AM [facility] GLUCOSE 101 74 - 106 MG/DL 12/18/2024 1:07 AM [facility] BUN 16 7 - 18 MG/DL 12/18/2024 1:07 AM [facility] CREATININE S/P/B 0.79 0.55 - 1.02 MG/DL 12/18/2024 1:07 AM [facility] CALCIUM S/P/B 8.5 8.5 - 10.1 MG/DL 12/18/2024 1:07 AM [facility] BILIRUBIN TOTAL S/P/B 0.2 0.2 - 1.0 MG/DL 12/18/2024 1:07 AM [facility] ALKALINE PHOSPHATASE S/P/B 75 37 - 98 U/L 12/18/2024 1:07 AM [facility] AST 14(L) 15 - 37 U/L 12/18/2024 1:07 AM [facility] ALT 18 13 - 56 U/L 12/18/2024 1:07 AM [facility] TOTAL PROTEIN S/P/B 6.3(L) 6.4 - 8.2 G/DL 12/18/2024 1:07 AM [facility] ALBUMIN S/P/B 3.3(L) 3.4 - 5.0 G/DL 12/18/2024 1:07 AM [facility] ANION GAP 4.8 2.0 - 10.0 MMOL/L 12/18/2024 1:07 AM [facility] OSMOLALITY (CALC) 291 MOSM/KG 025 1:07 AM [facility] Comment:REFERENCE RANGE NOT ESTABLISHED GFR ESTIMATE >90 >90 ML/MIN/1. 73 M2 12/18/2024 1:[address] [facility] GFR NOTES GFR REFERENCE S: 12/18/2024 1:[address] [facility] Comment: THE ESTIMATED GFR IS [...] ml/min/1.73 m2 G5,KIDNEY FAILURE: <15 ml/min/1.73 m2 12/18/2024 Dinesh Fung CARDIAC CARE NURSE LABORATORY Final Result Performing Organization Address [facility] de Phone Number [facility] [address] [place] [address], [phone] * D-DIMER, QUANTITATIVE (12/18/2024 12:00 AM CDT) D-DIMER 271 0 - 500 ng{FEU}/mL 12/18/2024 1:[address] [facility] EXCLUSION STATEMENT 12/18/2024 1:[address] [facility] Comment: D-Dimer values less than or equal to 500 ng/mL FEU have a negative predictive value of >95% for exclusion of deep vein thrombosis and pulmonary embolism. In patients over 50 (who tend to have higher normal baseline D-Dimer values), recent studies suggest age-adjusted D-Dimer cutoff values (calculated as: age [years] x 10 ng/mL) result in equivalent outcomes and no additional false negative findings. 12/18/2024 Billy Mayfield DO LABORATORY Final Result Performing Organization Address [facility] de Phone Number [facility] [address] [place] [address], [id number] * HCG QUANT SERUM - CHORIONIC GONADOTROPIN () (12/18/2024 12:00 AM CDT) [facility] HCG QUANTITATIVE <1 MIU/ML 12/19/19 25 1:[address] [facility] Comment: <5 IS NEGATIVE 5-25 IS BORDERLINE >25 IS POSITIVE ASSAY PERFORMED BY CHEMILUMINESCENCE METHODOLOGY USING [employer]. PATIENT RESULTS DETERMINED BY ASSAYS USING DIFFERENT MANUFACTURERS FOR METHODS MAY NOT BE COMPARABLE. 12/18/2024 Dinesh Fung NP LABORATORY Final Result Performing Organization Address [facility] de Phone Number [facility] [address] [place] [address], [phone] * (ABNORMAL) CBC W/DIFF AUTOMATED (12/18/2024 12:00 AM CDT) Only the most recent of5 resultswithin the time period is included. [facility] WBC 7.96 4.00 - 10.80 x10'3/uL 12/18/2024 12:[address] [facility] RBC 3.68(L) 4.10 - 5.40 x10'6/uL 12/18/2024 12:[address] [facility] HGB 11.2(L) 12.0 - 16.0 G/DL 12/18/2024 12:[address] [facility] HCT 33.8(L) 36.0 - 47.0 % 12/18/2024 12:[address] [facility] MCV 91.8 78.0 - 100.0 FL 12/18/2024 12:[address] [facility] MCH 30.4 27.0 - 31.0 PG 12/18/2024 12:05 AM [facility] MCHC 33.1 33.0 - 36.0 G/DL 12/18/2024 12:[address] [facility] RDW 13.0 11.5 - 14.5 % 12/18/2024 12:05 AM [facility] PLT 366(H) 150 - 350 x10'3/uL 12/18/2024 12:[address] [facility] MPV 9.4 7.4 - 10.4 FL 12/18/2024 12:[address] [facility] DIFFERENTIAL TYPE AUTOMATED DIFFERENTIAL 12/18/2024 12:[address] [facility] SEG NEUTROPHILS 55.5 % 12:05 AM [facility] LYMPHOCYTES 32.7 % 12/18/2024 12:05 AM [facility] MONOCYTES 8.8 % 12/18/2024 12:[address] [facility] EOSINOPHILS 1.9 % 12/18/2024 12:[address] [facility] BASOPHILS 0.8 % 12/18/2024 12:[address] [facility] IMMATURE GRANS % 0.3 % 12/19/19 12:05 AM [facility] ABS. NEUTROPHILS 4.43 1.60 - 8.30 x10'3/uL 12/18/2024 12:[address] [facility] ABS. LYMPHOCYTES 2.60 0.80 - 4.70 x10'3/uL 12/18/2024 12:[address] [facility] ABS. MONOCYTES 0.70 0.00 - 1.50 x10'3/uL 12/18/2024 12:05 AM [facility] ABS. EOSINOPHILS 0.15 0.00 - 0.40 x10'3/uL 12/18/2024 12:[address] [facility] ABS. BASOPHILS 0.06 0.00 - 0.20 x10'3/uL 12/18/2024 12:[address] [facility] ABS. IMMATURE GRANULOCYTES 0.02 0.00 - 0.03 x10'3/uL 12/18/2024 12:[address] [facility] ABS. NUCLEATED RBC'S 0.00 0.00 - 0.01 x10'3/uL 12/18/2024 12:[address] [facility] NRBC % 0.0 % 12/18/2024 12:[address] [facility] 12/18/2024 Dinesh Fung NP LABORATORY Final Result Performing Organization Address [facility]/ZIP Co de Phone Number [facility] [address] [place] [address], [phone] * LIPASE (12/18/2024 12:00 AM CDT) LIPASE 51 13 - 75 UNITS/L 12/18/2024 1:[address] [facility] 12/18/2024 Dinesh Pineda Antonieta MARTINEZ LABORATORY Final Result Performing Organization Address [facility] Co de Phone Number [facility] [address] [place] [address], [phone] * TROPONIN, QUANT (12/15/2024 2:38 AM CDT) Only the most recent of2 resultswithin the time period is included. TROPONIN I HIGH SENSITIVITY 8 0 - 51 ng/L 12/15/2024 3:02 AM CDT [facility] 12/15/2024 2:38 AM CDT Jens Rhodes MD LABORATORY Final Result [facility] [address] [place] [address], * XR CHEST PORTABLE (12/14/2024 9:31 PM CDT) Anatomical Region Laterality Modality Chest Radiographic Daniella ging 12/14/2024 9:36 PM CDT Impressions 12/14/2024 10:02 PM CDT IMPRESSION: There are no acute cardiopulmonary findings. Dictated By: Binta Hauser MD on 12/14/2024 9:36 PM The attending radiologist has reviewed the image(s) and agrees with the content of this report. Ordered By: JENS RHODES Interpreted By: Binta Hauser MD, 12/14/2024 9:36 PM Narrative 12/14/2024 10:02 PM CDT [address] [place] [address] Examination: Chest x-ray 1 view Exam time: 12/14/2024 9:31 PM Clinical history: Pain. Comparison: 10/13/2023 CT chest abdomen pelvis Technique: Single AP view was obtained. Findings: Monitoring device artifact. The cardiomediastinal silhouette appears unremarkable and the heart size is within normal parameters. There is normal distribution of the pulmonary vasculature. No parenchymal consolidations are identified. There are no sizable pleural effusions. There is no pneumothorax. No acute osseous abnormality is identified. Procedure Note Neil Carrion MD - 12/14/[address] [place] [address] Examination: Chest x-ray 1 view Exam time: 12/14/2024 9:31 PM Clinical history: Pain. Comparison: 10/13/2023 CT chest abdomen pelvis Technique: Single AP view was obtained. Findings: Monitoring device artifact. The cardiomediastinal silhouette appearsunremarkable and the heart size is within normal parameters. There isnormal distribution of the pulmonary vasculature. No parenchymalconsolidations are identified. There are no sizable pleural effusions.There is no pneumothorax. No acute osseous abnormality is identified. IMPRESSION: There are no acute cardiopulmonary findings. Dictated By: Binta Hauser MD on 12/14/2024 9:36 PM The attending radiologist has reviewed the image(s) and agrees with thecontent of this report. Ordered By: JENS RHODES Interpreted By: Binta Hauser MD, 12/14/2024 9:36 PM Jens Rhodes MD GENERAL IMAGING Final Result * CT HEAD WO CON (10/18/2024 8:19 PM CDT) Anatomical Region Laterality Modality Head Computed Tomogra phy 10/18/2024 8:20 PM CDT Impressions 10/18/2024 8:22 PM CDT IMPRESSION: No acute intracranial abnormalities identified. Referred By: Interpreted By: Gaurav Damon DO, 10/18/2024 8:20 PM Narrative 10/18/2024 8:22 PM CDT [address] [address] EXAMINATION: CT head without contrast HISTORY: Confusion. [...] Procedure Note Gaurav Damon DO - 10/18/2024 [facility] [address] [place], [place] [address] EXAMINATION: CT head without contrast HISTORY: Confusion. [...] URINE CLEAN CATCH 10/18/2024 4:30 PM CDT [facility] SPECIAL REQUESTS NO SPECIAL REQUEST 10/18/2024 4:30 PM CDT [facility] CULTURE RESULT POLYMICROBIAL GROWTH CONSISTENT WITH NORMAL GENITAL CAM. SUSCEPTIBILITIES NOT ROUTINELY PERFORMED. 10/19/2024 8:45 AM CDT [facility] URINE SPECIMEN OBTAINED BY CLEAN CATCH PROCEDURE / Unknown 10/18/2024 4:30 PM CDT 10/18/2024 8:10 PM CDT us Yovana Zamora MD MICROBIOLOGY - GENERAL ORDERA BLES Final Result [facility] [address] [place] [address], * RESPIRATORY PCR PANEL 2 (10/18/2024 12:33 PM CDT) Pathologist [facility] ADENOVIRUS PCR (RESP) NOT DETECTED NOT DETECTED 10/18/2024 1:50 PM CDT [facility] CORONAVIRUS 229E PCR (RESP) NOT DETECTED NOT DETECTED 10/18/2024 1:50 PM CDT [facility] CORONAVIRUS HKU1 PCR (RESP) NOT DETECTED NOT DETECTED 10/18/2024 1:50 PM CDT [facility] CORONAVIRUS NL63 PCR (RESP) NOT DETECTED NOT DETECTED 10/18/2024 1:50 PM CDT [facility] CORONAVIRUS OC43 PCR (RESP) NOT DETECTED NOT DETECTED 10/18/2024 1:50 PM CDT [facility] METAPNEUMOVIRUS PCR (RESP) NOT DETECTED NOT DETECTED 10/18/2024 1:50 PM CDT [facility] RHINOVIRUS/ENTEROV IRUS PCR (RESP) NOT DETECTED NOT DETECTED 10/18/2024 1:50 PM CDT [facility] INFLUENZA A PCR (RESP) NOT DETECTED NOT DETECTED 10/18/2024 1:50 PM CDT [facility] INFLUENZA B PCR (RESP) NOT DETECTED NOT DETECTED 10/18/2024 1:50 PM CDT [facility] PARAINFLUENZA 1 PCR (RESP) NOT DETECTED NOT DETECTED 10/18/2024 1:50 PM CDT [facility] PARAINFLUENZA 2 PCR (RESP) NOT DETECTED NOT DETECTED 10/18/2024 1:50 PM CDT [facility] PARAINFLUENZA 3 PCR (RESP) NOT DETECTED NOT DETECTED 10/18/2024 1:50 PM CDT [facility] PARAINFLUENZA 4 PCR (RESP) NOT DETECTED NOT DETECTED 10/18/2024 1:50 PM CDT [facility] RSV PCR (RESP) NOT DETECTED NOT DETECTED 10/18/2024 1:50 PM CDT [facility] B PARAPERTUSIS PCR (RESP) NOT DETECTED NOT DETECTED 10/18/2024 1:50 PM CDT [facility] BORDETELLA PERTUSSIS PCR (RESP) NOT DETECTED NOT DETECTED 10/18/2024 1:50 PM CDT [facility] CHLAMYDOPHILA PNEUMONIAE PCR (RESP) NOT DETECTED NOT DETECTED 10/18/2024 1:50 PM CDT [facility] MYCOPLASMA PNEUMONIAE PCR (RESP) NOT DETECTED NOT DETECTED 10/18/2024 1:50 PM CDT [facility] CORONAVIRUS SARS COV 2 PCR (RESP) NOT DETECTED NOT DETECTED 10/18/2024 1:50 PM CDT [facility] NASOPHARYNGEAL SWAB / Unknown 10/18/2024 12:33 PM CDT Yovana Zamora MD MICROBIOLOGY - GENERAL ORDERA BLES Final Result [facility] [address] [place] [address], [place] [phone] * TEST URINE (10/18/2024 11:00 AM CDT) URINE HCG TEST NEGATIVE 10/18/2024 11:11 AM CDT [facility] Comment: VERY DILUTE URINE SPECIMENS MAY NOT CONTAIN ASSEMBLER MOVEMENT LEVELS OF HCG. IF IS STILL SUSPECTED, A SERUM HCG TEST IS RECOMMENDED. URINE SPECIMEN FROM URETHRA / Unknown 10/18/2024 11:00 AM CDT Yovana Zamora MD URINE ORDERABLES Final Result [facility] [address] [place] [address], [place] [phone] * (ABNORMAL) URINALYSIS, AUTO, COMPLETE (10/18/2024 11:00 AM CDT) SPECIMEN TYPE URINE CLEAN CATCH 10/18/2024 11:01 AM CDT [facility] COLOR (U) DARK BROWN 10/18/2024 11:23 AM CDT [facility] TRANSPARENCY TURBID 10/18/2024 11:23 AM CDT [facility] SPECIFIC GRAVITY (U) 1.034(H) 1.001 - 1.030 10/18/2024 11:23 AM CDT [facility] U PH 5.5 5.0 - 9.0 10/18/2024 11:23 AM CDT [facility] LEUKOCYTES (U) 250(A) NEGATIVE 10/18/2024 11:23 AM CDT [facility] NITRITES NEGATIVE NEGATIVE 10/18/2024 11:23 AM CDT [facility] PROTEIN RANDOM (U) 100(H) <30 MG/DL 10/18/2024 11:23 AM CDT [facility] GLUCOSE (U) NORMAL NORMAL MG/DL 10/18/2024 11:23 AM CDT [facility] KETONES MG/DL (U) 60(A) NEGATIVE MG/DL 10/18/2024 11:23 AM CDT [facility] UROBILINOGEN NORMAL NORMAL MG/DL 10/18/2024 11:23 AM CDT [facility] BILIRUBIN (U) NEGATIVE NEGATIVE MG/DL 10/18/2024 11:23 AM T [facility] BLOOD (U) 3+(A) NEGATIVE 10/18/2024 11:23 AM CDT [facility] MUCUS MANY /LPF 10/18/2024 11:23 AM CDT [facility] WBC/HPF >100(H) <6 /HPF 10/18/2024 11:23 AM CDT [facility] RBC/HPF >100(H) <6 /HPF 10/18/2024 11:23 AM CDT [facility] SQUAMOUS EPITHELIALS MODERATE /HPF 10/18/2024 11:23 AM CDT [facility] URINE SPECIMEN OBTAINED BY CLEAN CATCH PROCEDURE / Unknown 10/18/2024 11:00 AM CDT us Yovana Zamora MD URINE ORDERABLES Final Result [facility] [address] [place] [address], [place] [phone] * (ABNORMAL) DRUG SCREEN RAPID (10/18/2024 10:56 AM CDT) Only the most recent of2 resultswithin the time period is included. AMPHETAMINE (U) POSITIVE(A) NEGATIVE 10/19/19 11:27 AM CDT [facility] BARBITURATES SCREEN (U) POSITIVE(A) NEGATIVE 10/18/2024 11:27 AM CDT [facility] BENZODIAZEPINES SCREEN (U) NEGATIVE NEGATIVE 10/18/2024 11:27 AM CDT [facility] CANNABINOIDS SCREEN (U) NEGATIVE NEGATIVE 10/18/2024 11:27 AM CDT [facility] COCAINE METABOLITES (U) NEGATIVE NEGATIVE 10/18/2024 11:27 AM CDT [facility] METHADONE (U) NEGATIVE NEGATIVE 10/18/2024 11:27 AM CDT [facility] OPIATE SCREEN (U) NEGATIVE NEGATIVE 025 11:27 AM CDT [facility] PHENCYCLIDINE PCP (U) NEGATIVE NEGATIVE 10/18/2024 11:27 AM CDT [facility] Comment: NOTE: RESULTS OF THIS DRUG SCREEN SHOULD BE USED FOR MEDICAL PURPOSES ONLY AND NOT FOR LEGAL OR EMPLOYMENT PURPOSES. POSITIVE RESULTS ARE NOT CONFIRMED. MEDICATIONS CONTAINING EPHEDRINE MAY CAUSE FALSE POSITIVE AMPHETAMINE CALL [phone], LAB, TO REQUEST CONFIRMATION TESTING. IF CREATININE IS <40 mg/dL. RECOLLECTION IS SUGGESTED. AMPHETAMINE- 500 NG/ML BARBITURATE- 200 NG/ML BENZODIAZEPINES- 200 NG/ML THC- 50 NG/ML COCAINE- 150 NG/ML METHADONE- 300 NG/ML OPIATE- 300 MG/ML PCP- 25 NG/ML CREATININE (U) 337.0(H) 28 - 217 MG/DL 10/18/2024 11:27 AM CDT [facility] URINE SPECIMEN / Unknown 10/18/2024 10:56 AM CDT Yovana Zamora MD URINE ORDERABLES Final Result [facility] [address] [place] [id number], [place] [phone] * (ABNORMAL) MAGNESIUM (10/18/2024 10:45 AM CDT) MAGNESIUM 2.5(H) 1.8 - 2.4 MG/DL 10/18/2024 12:06 PM CDT [facility] 10/18/2024 10:4 5 AM CDT Yovana Zamora MD LABORATORY Final Result [facility] [address] [place] [address], * (ABNORMAL) SALICYLATE (10/18/2024 10:45 AM CDT) SALICYLATES 2.0(L) 2.8 - 20.0 MG/DL 10/18/2024 11:14 AM CDT [facility] Comment: THERAPEUTIC: 2.8-20.0 Toxic Level: >=30 10/18/2024 10:4 5 AM CDT Yovana Zamora MD LABORATORY Final Result [facility] [address] [place] [address], * CK (CPK) (10/18/2024 10:45 AM CDT) CPK 88 21 - 215 U/L 10/18/2024 12:06 PM CDT [facility] 10/18/2024 10:4 5 AM CDT Yovana Zamora MD LABORATORY Final Result [facility] [address] [place] [address], * THYROID STIM HORMONE, TSH (10/18/2024 10:17 AM CDT) TSH 1.380 0.358 - 3.74 uIU/ML 10/18/2024 11:12 AM CDT [facility] Comment: HIGH DOSES OF BIOTIN MAY INTERFERE WITH THIS TEST RESULT. CORRELATION TO CLINICAL HISTORY AND PRESENTATION RECOMMENDED. 10/18/2024 10:1 7 AM CDT Yovana Zamora MD LABORATORY Final Result [facility] [address] [place] [id number], * ETHANOL (10/18/2024 10:17 AM CDT) Only the most recent of2 resultswithin the time period is included. ALCOHOL S/P/B <0.003 <0.003 G/DL 10/18/2024 11:12 AM CDT [facility] 10/18/2024 10:1 7 AM CDT Yovana Zamora MD LABORATORY Final Result Performing Organization Address City/[facility]/ZIP Co de Phone Number [facility] [address] [place] [id number], * (ABNORMAL) ACETAMINOPHEN (10/18/2024 10:17 AM CDT) ACETAMINOPHEN S/P/B <2.0(L) 10.0 - 30.0 MCG/ML 10/18/2024 11:12 AM CDT [facility] Comment: THERAPEUTIC: 10-30 TOXIC: >200 10/18/2024 10:1 7 AM CDT Yovana Zamora MD LABORATORY Final Result [facility] [address] [place] [id number], * (ABNORMAL) BASIC METABOLIC PANEL (10/17/2024 4:12 PM CDT) SODIUM S/P/B 140 136 - 145 MMOL/L 10/17/2024 5:06 PM [facility] POTASSIUM S/P/B 3.5 3.5 - 5.1 MMOL/L 10/17/2024 5:06 PM [facility] CHLORIDE S/P/B 103 98 - 107 MMOL/L 10/17/2024 5:06 PM [facility] CO2 27.0 21.0 - 32.0 MMOL/L 10/17/2024 5:06 PM [facility] GLUCOSE 98 70 - 99 MG/DL 10/17/2024 5:06 PM [facility] Comment: FASTING GLUCOSE 100 TO 125 MG/DL IS CONSISTENT WITH IMPAIRED FASTING GLUCOSE. FASTING GLUCOSE >125 MG/DL IS CONSISTENT WITH DIABETES. RANDOM GLUCOSE >200 MG/DL WITH HYPERGLYCEMIC SYMPTOMS IS CONSISTENT WITH DIABETES. PER ADA GUIDELINES BUN 18 6 - 24 MG/DL 10/17/2024 5:06 PM [facility] CREATININE S/P/B 1.18(H) 0.55 - 1.02 MG/DL 10/17/2024 5:06 PM [facility] CALCIUM S/P/B 10.0 8.4 - 10.5 MG/DL 10/17/2024 5:06 PM [facility] ANION GAP 10.0 5.0 - 15.0 MMOL/L 10/17/2024 5:06 PM [facility] OSMOLALITY (CALC) 292 MOSM/KG 025 5:06 PM [facility] Comment:REFERENCE RANGE NOT ESTABLISHED GFR ESTIMATE 59(L) >89 ML/MIN/1. 73 M2 10/17/2024 5:06 PM [facility] GFR NOTES GFR REFERENCE S: 10/17/2024 5:06 PM [facility] Comment: THE ESTIMATED GFR [...] m2 10/17/2024 4:12 PM CDT us Familia Carter MD LABORATORY Final Result Performing Organization Address City/[facility]/ZIP Co de Phone Number [facility] [place] [address], * CORONAVIRUS (COVID-19) ANTIGEN (10/17/2024 4:05 PM CDT) [facility] CORONAVIRUS ANTIGEN IA NEGATIVE NEGATIVE 10/17/2024 5:06 PM CDT [facility] Comment: NEGATIVE RESULTS DO NOT [...] SPECIMEN TYPE NASAL 10/17/2024 4:43 PM CDT [facility] NASAL NASAL STRUCTURE / Unknown 10/17/2024 4:05 PM CDT us Familia Carter MD MICROBIOLOGY - GENERAL ORDERAB LES Final Result Performing Organization Address City/[facility]/ZIP Co de Phone Number [facility] [place] [address], * HEPATITIS PANEL,ACUTE (10/13/2023 3:24 AM CDT) Pathologist [facility] HEPATITIS B SURFACE AG NON-REACT VARGHESE NON-REACT VARGHESE 10/13/2023 1:[address] [facility] Comment:HBsAg NOT DETECTED. HEP B CORE IGM NON-REACT VARGHESE NON-REACT VARGHESE 10/13/2023 1:[address] [facility] Comment: IgM ANTI HBc NOT DETECTED. DOES NOT EXCLUDE THE POSSIBILITY OF EXPOSURE TO OR INFECTION WITH HBV. NO RETEST REQUIRED. HIGH DOSES OF BIOTIN MAY INTERFERE WITH THIS TEST RESULT. CORRELATION TO CLINICAL HISTORY AND PRESENTATION RECOMMENDED. HAV IGM NON-REACT VARGHESE NON-REACT VARGHESE 10/13/2023 1:[address] [facility] Comment: IgM ANTI HAV NOT DETECTED. DOES NOT EXCLUDE THE POSSIBILITY OF EXPOSURE TO OR INFECTION WITH HAV. LEVELS OF IgM ANTI HAV MAY BE BELOW THE CUTOFF IN EARLY INFECTION. HEPATITIS C AB NON-REACT VARGHESE NON-REACT VARGHESE 10/13/2023 1:[address] [facility] Comment: ANTIBODIES TO HCV NOT DETECTED. DOES NOT EXCLUDE THE POSSIBILITY OF EXPOSURE TO HCV. 10/13/2023 3:24 AM CDT Tenisha Cheema MD LABORATORY Final Result 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
--- NOTE | 2024-12-21 07:08 | ED_ITS ---
HPI - Abdominal Pain General Chief Complaint: Abdominal Pain Stated Complaint: abdominal pain Time Seen by Provider: 12/21/24 07:07 Source: patient Mode of arrival: ambulatory Limitations: no limitations History of Present Illness HPI narrative: 44-year-old female, smoker with a history of amphetamine/opiate abuse, psychosis with paranoid ideation presents to the ED with a 1 day history of --upper abdominal pain. The pain is continuous. No exacerbating or relieving factors. No fever or chills. --patient has nausea without any vomiting or diarrhea. MD elicited complaint: abdominal pain Pertinent past history: none Onset (ago): day(s) (One day) Pain Consistency: constant Location: epigastric Severity: moderate Quality: aching Radiation: none Migration to: no migration Exacerbating factors: nothing Relieving factors: nothing Associated symptoms: nausea Related Data Home Medications ?Medication ?Instructions ?Recorded ?Confirmed ?Last Taken ?Type aripiprazole 5 mg tablet (Abilify) 5 mg PO DAILY 05/1712/15/24 Unknown History lorazepam 0.5 mg tablet (Ativan) 0.5 mg PO Q6H PRN anx iety 05/17/24 12/15/24 Unknown History buprenorphine 8 mg-naloxone 2 mg 1 tablet sublingual D AILY 12/15/24 12/21/24 Unknown History sublingual tablet Allergies Allergy/AdvReac Type Severity Reaction Status Date / Time Penicillins Allergy Severe Difficulty Verified 12/21/24 07:00 Swallowing codeine AdvReac Swelling Verified 12/21/24 07:00 Review of Systems 2 Review of Systems: All systems reviewed & are unremarkable except as noted in HPI and below Constitutional: Constitutional: Reports as per HPI and Reports no additional constitutional complaints Eyes: Eyes: Reports as per HPI and Reports no additional eye complaints ENT: Reports system reviewed and no additional complaints, except as documented and Reports as per HPI Cardiovascular: Cardiovascular: Reports as per HPI and Reports no additional cardiovascular complaints Respiratory: Respiratory: Reports as per HPI and Reports no additional respiratory complaints Gastrointestinal: Gastrointestinal: Reports as per HPI, Reports no additional gastrointestinal complaints, Reports abdominal pain and Reports nausea Genitourinary: Genitourinary: Reports no additional female genitourinary complaints and Reports as per HPI Musculoskeletal: Musculoskeletal: Reports no additional musculoskeletal complaints and Reports as per HPI Integumentary/Breasts: Skin/Breast: Reports system reviewed and no additional complaints, except as docu and Reports as per HPI Neurologic: Reports system reviewed and no additional complaints, except as documented and Reports as per HPI Psychiatric: Psychiatric: Reports no additional psychiatric complaints and Reports as per HPI Endocrine: Endocrine: Reports no additional endocrine complaints and Reports as per HPI Hematologic/Lymphatic: Hematologic/Lymphatic: Reports no additional hematologic/lymphatic complaints and Reports as per HPI Allergic/Immunologic: Allergic/Immunologic: Reports no additional allergic/immunologic complaints and Reports as per HPI [facility] Past Medical History Medical History Drug abuse Tooth decay Surgical History Surgical History History of x3 Family History Family History Father No problems noted. Father Lung cancer Mother Heart disease Social History Social History Years smoked: 20 Smoking status: Current every day smoker Tobacco type: cigarettes Second hand tobacco smoke exposure: Yes Alcohol intake: former Substance use: former Substance use type: methamphetamine Gender identity (if verbalized by the patient): Female Spiritual care concerns: No Exam 2 Narrative: Afebrile. Blood pressure of 111/66. Oxygen saturation of 99% on room air with a respiratory rate of 16. Const: General: no acute distress Nutritional Appearance: thin O rientation/consciousness: patient oriented x3 Limitations: no limitations HENMT: Head: normal to inspection Ears: external ears normal F barak/Nose/Sinus: Normal external nose present Face and sinus: normal facial exam Mouth: Yes Normal oral and palatal mucosa present Throat: posterior oropharynx normal Eyes: Conjunctivae: conjunctivae normal Pupils: Equal, round and reactive pupils present EOM: EOMs intact bilaterally Direct Ophthalmoscopy: no photophobia Neck: Neck: normal visual inspection, no lymphadenopathy and no meningeal signs Chest: Chest palpation & inspection: normal inspection of the chest Resp: Effort & Inspection: normal respiratory effort Auscultation: rhonchi Cardio: Rate: regular rate Rhythm: regular rhythm GI: GI Palp: Yes Soft to palpation Auscultation: normal bowel sounds O ther: Epigastric tenderness without any rigidity/rebound. Back/Spine/Pelvis: Back: no CVA tenderness Skin: General skin exam: normal color Rashes: no rashes Neuro: General: patient oriented x3, moves all extremities, no meningeal signs, no focal motor deficits and CN's II-XI intact bilaterally Cranial nerves: Yes Nystagmus not present Speech: normal speech Extrem: General: normal to inspection and no clubbing, cyanosis or edema Psych: Mental Status: mental status grossly normal Affect: normal affect Course Course Emergency Course: Patient presents with upper abdominal pain of 1 day duration. The patient has nausea. Patient is afebrile. No exacerbating or relieving factors. Patient is noted to have a normal white cell count and a normal lactate. Urine is unremarkable. Abdominal examination revealed tenderness in the epigastrium without any rigidity or rebound. Discussed with the patient. Advised her to return to the ED if she has ongoing pain. Discussed adverse effects of CT scan. Vital Signs Vital signs: Vital Signs Temperature 36.4 C 12/21/24 06:53 Pulse Rate 60 12/21/24 06:53 Respiratory Rate 16 12/21/24 06:53 Blood Pressure 111/66 12/21/24 06:53 Pulse Oximetry 99 12/21/24 06:53 Oxygen Delivery Room Air 12/21/24 06:53 Temperature 36.4 C 12/21/24 06:53 Pulse Rate 60 12/21/24 06:53 Respiratory Rate 16 12/21/24 06:53 Blood Pressure 111/66 12/21/24 06:53 Pulse Oximetry 99 12/21/24 06:53 Oxygen Delivery Room Air 12/21/24 06:53 MDM - Abdominal Pain MDM Narrative Medical decision making narrative: Abdominal pain Differential Diagnosis Differential diagnosis: Likely calculus of kidney Medical Records Attestation: I reviewed the patient's medical records. Lab Data Attestation: I reviewed the patient's lab results. 12/21/24 07:25 12/21/24 07:25 Labs: Lab Results 12/21/24 12/21/24 Range/Units 07:25 07:26 WBC 5.3 (4.8-10.8) K/mm3 RBC 3.92 L (4.20-5.40) M/mm3 Hgb 11.7 L (12.0-15.0) g/dL Hct 36.6 (35.0-49.0) % MCV 93.4 (78.0-102.0) fL MCH 29.8 (27.0-31.0) pg MCHC 32.0 (32-36) g/dL RDW 13.1 (11.6-14.4) % Plt Count 360 (150-420) K/mm3 MPV 9.2 (9.2-11.8) fl Immature Gran % (Auto) 0.4 H (0.0-0.0) % Neut % (Auto) 63.4 (50.0-70.0) % Lymph % (Auto) 24.8 (18.0-42.0) % [place] % (Auto) 8.9 (2.0-11.0) % Eos % (Auto) 1.7 (1.0-6.0) % Baso % (Auto) 0.8 (0.0-1.0) % Lymph # (Auto) 1.31 (1.10-4.50) K/mm3 [place] # (Auto) 0.47 (0.10-0.90) K/mm3 Eos # (Auto) 0.09 (0.02-0.50) K/mm3 Baso # (Auto) 0.04 (0.00-0.10) K/mm3 Abs Immat Gran (auto) 0.02 H (0.00-0.00) K/mm3 Absolute Neuts (auto) 3.36 (1.70-7.20) K/mm3 Absolute Nucleated RBC 0.00 (0.00-0.00) K/mm3 Nucleated RBC % 0.0 (0-0.0) % PT 10.9 (9.50-12.1) Seconds INR 1.0 Sodium 141 (137-145) mmol/L Potassium 4.3 (3.4-5.0) mmol/L Chloride 107 (98-107) mmol/L Carbon Dioxide 27 (22-30) mmol/L Anion Gap 7 (4-12) mmol/L BUN 13 D (7-17) mg/dL Creatinine 0.85 (0.7-1.0) mg/dL Estim Creat Clear Calc 57 ml/min Estimated GFR > 60 (59 - ) Glucose 97 (65-110) mg/dL Calculated Osmolality 292 (285-295) mOsm/kg Lactic Acid 0.9 (0.4-2.0) mmol/L Calcium 9.2 (8.4-10.2) mg/dL Total Bilirubin 0.5 (0.2-1.3) mg/dL AST 19 (14-36) U/L ALT 13 (6-35) U/L Alkaline Phosphatase 58 (38-126) U/L Troponin I < 0.012 (0.000-0.034) ng/mL Total Protein 7.0 (6.3-8.2) g/dL Albumin 4.0 (3.5-5.1) g/dL Lipase 146 (23-300) U/L Discharge Plan Discharge Clinical Impression: Abdominal pain Qualifiers: Abdominal location: epigastric Qualified Code(s): R10.13 - Epigastric pain Patient Disposition: Home Condition: Stable Instructions: Antibiotic Form, Abdominal Pain (ED) Patient Language: Citizen Of [place] Prescriptions: No Action aripiprazole [Abilify] 5 mg tablet 5 mg PO DAILY lorazepam [Ativan] 0.5 mg tablet 0.5 mg PO Q6H PRN (Reason: anxiety) bupropion HCl [Wellbutrin SR] 150 mg tablet sustained-release 12 hr 150 mg PO QAM Qty: 30 0RF buprenorphine-naloxone 8-2 mg tablet, sublingual 1 tablet sublingual DAILY Follow-up/Referrals: UNKNOWN,DOCTOR [Non-Staff] Time of Disposition: 08:21
--- NOTE | 2024-12-21 07:14 | ECG_ITS ---
Test Date: 2024-12-21 07:25:33 Measurements Intervals [place] Rate: 55 P: 72 CA: 124 QRS: 77 QRSD: 93 T: 77 QT: 420 QTc: 402 Interpretive Statements SINUS BRADYCARDIA MINIMAL Q WAVES- ANTEROLAT/INF LEADS BORDERLINE ECG Compared to ECG 12/15/2024 11:13:10 HEART RATE HAS DECREASED Electronically Signed On 12-21-2024 08:00:37 CDT by Sonny Velasco D.O.
[2024-12-21] MEDS: LACTATED RINGERS 500 ML 999 ML IV CONT (07:28)
[2024-12-21 07:30] LABS: Hematocrit 36.6 % (35.0-49.0); Hemoglobin 11.7 g/dL (12.0-15.0); Immature Granulocyte Percent A 0.4 % (0.0-0.0); Lymphocytes Absolute Auto 1.31 K/mm3 (1.10-4.50); Mean Corpuscular HGB Conc 32.0 g/dL (32-36); Mean Corpuscular Hemoglobin 29.8 pg (27.0-31.0); Mean Corpuscular Volume 93.4 fL (78.0-102.0); Nucleated Red Blood Cells Absolute Auto 0.00 K/mm3 (0.00-0.00); Nucleated Red Blood Cells Perc 0.0 % (0-0.0); Platelet Count Result 360 K/mm3 (150-420); Red Blood Count 3.92 M/mm3 (4.20-5.40); White Blood Count 5.3 K/mm3 (4.8-10.8)
[2024-12-21 07:42] LABS: Alanine Aminotransferase 13 U/L (6-35); Albumin Level 4.0 g/dL (3.5-5.1); Alkaline Phosphatase 58 U/L (38-126); Anion Gap 7 mmol/L (4-12); Aspartate Amino Transferase 19 U/L (14-36); Bilirubin,Total 0.5 mg/dL (0.2-1.3); Blood Urea Nitrogen 13 mg/dL (7-17); Calcium 9.2 mg/dL (8.4-10.2); Carbon Dioxide 27 mmol/L (22-30); Chloride 107 mmol/L (98-107); Estimated CRCL calculation 57 ml/min; Estimated Glomerular Filt Rate > 60; Glucose 97 mg/dL (65-110); Lipase 146 U/L (23-300); Osmolality Calculated 292 mOsm/kg (285-295); Potassium 4.3 mmol/L (3.4-5.0); Sodium 141 mmol/L (137-145); Total Protein 7.0 g/dL (6.3-8.2)
[2024-12-21 07:43] LABS: INR 1.0; Prothrombin Time 10.9 Seconds (9.50-12.1)
[2024-12-21 07:54] LABS: Troponin I < 0.012 ng/mL (0.000-0.034)
[2024-12-21] MEDS: traMADol HCL (*CRX) 50 MG TABLET PO (09:09)
[2024-12-21] MEDS: ONDANSETRON HCL ODT 4 MG TABLET PO (09:09)
== END 2024-12-21 09:13 | disposition home or self-care (01) ==
PROVIDERS: Emergency Provider Internal Medicine Critical Care Medicine
DX: R10.13 Epigastric pain (principal); F17.210 Nicotine dependence, cigarettes, uncomplicated
CPT/HCPCS: 36415; 80053; 83605; 83690; 84484; 85025; 85610; 93005; 96360; 99284; A9270; J7120

== ENCOUNTER 2024-12-23 06:14 | Emergency (ER) | payer OTHER, SELFPAY ==
--- OUTSIDE RECORDS SUMMARY | 2024-09-28 05:40 | XMS_ITS ---
Author Organization [facility] Address [address] [place] [address] Care Team Providers Care Personnel Psychologist Name Role Phone Alana Epps Primary Care Provider Ana Verma [phone] REASON FOR VISIT new patient Social History Sex Assigned At : Social History Observation Description Sex Assigned At Female Encounters Encounter Location Date Provider Diagnosis [facility] [address] [place] [address] 09/28/2024 Ana Verma Plan Of Treatment No Information Progress Notes * PADMABradsyedDOB:1980 (44 yo F)Acc No.[id number]:09/28/2024 UNLOCKED PROGRESS NOTE Patient: Jaycee AYALA Provider: ALCON Nash, CLEANER TOUCH UP WORKER, PMHNP-BC :1980 A ge:44 Y S ex:Female Date:09/28/2024 Address:[address] [facility] Pcp:Alana Epps Subjective: * Chief Complaints: * 1 . New patient. * Medical History: Objective: * Vitals: Assessment: Plan: * Treatment: * * Electronic signature of Anton Verma on 12/23/2024 at 07:45 AM CDT Sign off status: Pending * Provider: Peg Verma MSN, CLEANER TOUCH UP WORKER, PMHNP-BC Date: 0 09/28/2024 Generated for Printing/Faxing/eTransmitting on: 1 07:45 AM CDT
--- OUTSIDE RECORDS SUMMARY | 2024-09-29 04:20 | XMS_ITS ---
Author Organization Counts include 234 beds at the [facility] Address [address] [place] [address] Care Team Providers Care Personnel Analyst Name Role Phone Alana Epps Primary Care Provider Leandro Harris [phone] REASON FOR VISIT new patient Social History Sex Assigned At : Social History Observation Description Sex Assigned At Female Encounters Encounter Location Date Provider Diagnosis [address] [place] [address] 09/29/2024 Leandro Harris Plan Of Treatment No Information Progress Notes * JENNYFERJaycee SCHULZDOB:1980 (44 yo F)Acc No.[id number]:09/29/2024 UNLOCKED PROGRESS NOTE Patient: Jaycee AYALA Provider: Sasha Harris DNP, PMHNP-BC :1980 A ge:44 Y S ex:Female Date:09/29/2024 [facility] [facility] Pcp:Alana Epps Subjective: * Chief Complaints: * 1 . New patient. * Medical History: Objective: * Vitals: Assessment: Plan: * Treatment: * * Electronic signature of Kanu Harris APRN, [id number] on 12/23/2024 at 07:46 AM CDT Sign off status: Pending * Provider: Sasha Harris DNP, PMHNP-BC Date: 0 09/29/2024 Generated for Roland felder/Karina/eTransmitting on: 1 07:46 AM CDT
--- OUTSIDE RECORDS SUMMARY | 2024-10-06 03:20 | XMS_ITS ---
Author Organization [facility] Address [address] [place] [address] Care Team Providers Care Search Engine Marketing Manager Name Role Phone Alana Epps Primary Care Provider [phone] REASON FOR VISIT 1 week f/u Social History Sex Assigned At : Social History Observation Description Sex Assigned At Female Encounters Encounter Location Date Provider Diagnosis [place] [address] [facility] [place] [place] [address] 10/06/2024 Alana Epps Plan Of Treatment No Information Progress Notes * Jaycee ROUSEDOB:1980 (44 yo F)Acc No.[id number]:10/06/2024 UNLOCKED PROGRESS NOTE Patient: Jaycee AYALA Provider: ALCON Still, ASSOCIATE PROFESSOR OF THEATRE, GAUGER CHIEF DELIVERY-C :1980 A ge:44 Y S ex:Female Date:10/06/2024 [address] [facility] Subjective: * Chief Complaints: * 1 . 1 week f/u. * Medical History: Objective: * Vitals: Assessment: Plan: * Treatment: * Care Plan Details* * Electronic signature of Guera Epps APRN, [id number] on 12/23/2024 at 07:46 AM CDT Sign off status: Pending * Provider: Sasha Epps MSN, ASSOCIATE PROFESSOR OF THEATRE, GAUGER CHIEF DELIVERY-C Date: 0 10/06/2024 Generated for Roland felder/Karina/eTransmitting on: 1 07:46 AM CDT
--- NOTE | ~2024-12-23 | XR_ITS ---
EXAMINATION: XR chest 1V portable 12/23/2024 06:47 INDICATION: Chest pain. Abdomen pain. PROCEDURE: AP portable chest COMPARISON: 12/15/2024 FINDINGS: The lungs are clear. The cardiomediastinal silhouette is within normal limits. There are no pleural effusions. There is no pneumothorax suspected. Prominent left nipple shadow. IMPRESSION: 1: NO ACUTE CARDIOPULMONARY DISEASE. Reviewed, dictated and finalized at location B.
--- NOTE | 2024-12-23 06:16 | ECG_ITS ---
Test Date: 2024-12-23 06:19:25 Measurements Intervals [place] Rate: 70 P: 73 [place]: 125 QRS: 66 QRSD: 91 T: 67 QT: 363 QTc: 394 Interpretive Statements SINUS RHYTHM WITH SINUS ARRHYTHMIA POSSIBLE LEFT ATRIAL ENLARGEMENT BASELINE ARTIFACT- I, II, AVR, AVL, AVF, V1-V6 BORDERLINE ECG Compared to ECG 12/21/2024 07:25:33 HEART RATE HAS INCREASED Electronically Signed On 12-23-2024 07:55:45 CDT by Sonny Velasco D.O.
[2024-12-23 06:17] VITALS: BP 128/89; PULSE 80; RESP 19; TEMP 36.7; O2SAT 99
[2024-12-23 06:30] VITALS: PULSE 73
[2024-12-23 06:40] LABS: Hematocrit 37.4 % (37.0-47.0); Hemoglobin 12.1 g/dL (12.0-15.0); Immature Granulocyte Percent A 0.1 % (0-0.5); Lymphocytes Absolute Auto 1.85 K/mm3 (0.9-3.2); Mean Corpuscular HGB Conc 32.4 g/dl (32-36); Mean Corpuscular Hemoglobin 30.1 pg (26-34); Mean Corpuscular Volume 93.0 fl (80-100); Nucleated Red Blood Cells Absolute Auto 0.000 K/mm3 (0.0-0.012); Nucleated Red Blood Cells Perc 0.0 % (0.0-0.2); Platelet Count Result 377 k/mm3 (150-375); Red Blood Count 4.02 M/mm3 (4.2-5.4); White Blood Count 7.2 K/mm3 (4.5-10.0)
[2024-12-23 06:55] LABS: INR 1.0; Partial Thromboplastin Time 30.9 Seconds (22.3-36.8); Prothrombin Time 13.4 Seconds (11.1-14.7)
[2024-12-23 06:56] LABS: Alanine Aminotransferase 14 U/L (6-35); Albumin Level 4.2 g/dL (3.5-5.1); Alkaline Phosphatase 62 U/L (38-126); Anion Gap 6 mmol/L (4-12); Aspartate Amino Transferase 20 U/L (14-36); Bilirubin,Total 0.4 mg/dL (0.2-1.3); Blood Urea Nitrogen 14 mg/dL (7-17); Calcium 9.4 mg/dL (8.4-10.2); Carbon Dioxide 28 mmol/L (22-30); Chloride 105 mmol/L (98-107); Estimated CRCL calculation 62 ml/min; Estimated Glomerular Filt Rate > 60; Glucose 97 mg/dL (65-110); Lipase 85 U/L (23-300); Potassium 4.0 mmol/L (3.4-5.0); Sodium 139 mmol/L (137-145); Total Protein 7.4 g/dL (6.3-8.2)
[2024-12-23 07:06] LABS: Troponin I < 0.012 ng/mL (0.000-0.034)
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
[2024-12-23 07:11] VITALS: BP 147/86; PULSE 78; RESP 19; O2SAT 100
--- NOTE | 2024-12-23 07:39 | PC.NURSE ---
Pt used call light requesting to speak with RN, RN entered pt room. Pt stating My shit hurts bad, EDP made aware of pt co pain
--- OUTSIDE RECORDS SUMMARY | 2024-12-23 07:45 | XMS_ITS | Patient Health Record ---
Author Organization Formerly [facility] Address [address] [place] [address] Care Team Providers Care Costumer Name Role Phone VicentelarissaAlana naylor Primary Care Provider [phone] Kasey Ny Unavailable [phone] Ava Hernandez Unavailable [phone] Leandro Harris Unavailable [phone] Ana Verma Unavailable [phone] Braxton Costa Unavailable [phone] Allergies Allergen (clinical drug ingredient) Drug/Non Drug Allergy documented on EMR Reaction Allergy Type Onset Date Status Penicillin rash Drug Allergy Active Results Component Value Reference Range Notes 14 Panel Urine Drug Screen Reviewed date:11/15/2024 [...] Reviewed date:09/21/2024 02:19:40 PM Interpretation:Normal Performing Lab:[facility], [address] [facility], [place], Phone - [phone], Director - PhDRicchijonoi Notes/Report: WBC 5.9 3.4-10.8 x10E3/uL RBC 4.83 [...] Panel* Reviewed date:09/21/2024 02:19:40 PM Interpretation:Normal Performing Lab:[facility] [place], [address] [facility], [place], Phone - [phone], Director - Eryn Notes/Report: Glucose 73 70-99 mg/dL BUN 14 [...] Screen *HIV 1, 2 Ab, p24 Ag ([id number]) Reviewed date:09/21/2024 02:19:40 PM Interpretation:Normal Performing Lab:[facility], [address] [facility], Phone - [phone], Director - [facility] Notes/Report: HIV Ab/p24 Ag Screen Non Reactive Non Reactive HIV-1/HIV-2 antibodies and HIV-1 p24 antigen were NOT detected. There is no laboratory evidence of HIV infection. HIV Negative Test, Urine Reviewed date:09/20/2024 03:01:25 PM Interpretation: Performing Lab: Notes/Report: Test, Urine neg Negative - Negative Breathalyzer Reviewed date:09/20/2024 03:01:30 PM Interpretation: Performing Lab: Notes/Report: SHERI 0.000 QuantiFERON-TB Gold Plus ([id number]) Reviewed date:09/22/2024 02:30:29 PM Interpretation:Normal Performing Lab:[facility], [address] [facility], Phone - [phone], Director - [facility] Notes/Report: QuantiFERON Incubation Incubation performed. 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 confirmed Problem Opioid use disorder (9059983989) Opioid use disorder (F11.99) Active confirmed Problem Tobacco user (897418152) Nicotine dependence with current use (F17.200) Active confirmed Vital Signs Heart Rate 75 /min 11/15/2024 Temperature 97.9 degrees Fahrenheit 10/21/2024 Respiratory Rate 16 /min 11/15/2024 Blood pressure diastolic 74 mm Hg 11/15/2024 Oximetry 98 % 11/15/2024 Height 61 in 11/15/2024 Blood pressure systolic 110 mm Hg 11/15/2024 Weight 112.6 lbs 11/15/2024 BMI 21.27 kg/m2 11/15/2024 Encounters Encounter Location Date Provider Diagnosis [facility] [place] [address] 09/20/2024 Alana Epps Methamphetamine use disorder, mild, in early remission F15.10 ; Opioid use disorder F11.99 ; Routine general medical examination at a health care facility Z00.00 and Nicotine dependence with current use F17.[address] [place] [address] 09/20/2024 Ava Hernandez Methamphetamine use disorder, mild, in early remission F15.10 and Bipolar 1 disorder, depressed F31.[address] [place] [address] 09/21/2024 Kasey Ny Bipolar 1 disorder, depressed F31.9 [place] [address] [facility] [facility] [address] 09/26/2024 Braxton Costa Thyroid nodule E04.1 ; Benign paroxysmal vertigo, bilateral H81.13 ; Systolic murmur I38 and Over weight E66.3 [place] [address] [place] [address] 10/21/2024 Alana Epps Opioid use disorder F11.99 [facility] [address] [place] [address] 11/15/2024 Alana Epps Opioid use disorder F11.99 [place] [address] [place] [address] 09/19/2024 Alana Epps [facility] [address] [facility] [address] 09/20/2024 Alana Epps [place] [address] [address] [facility] [address] 09/29/2024 Alana Epps Opioid use disorder F11.99 [facility] [address] [place] [address] 10/13/2024 Alana Epps Assessments Encounter Date Diagnosis [...] or be administered own oral medications per [facility] protocols. Provided informed consent with understanding of [...] 09/29/2024 Opioid use disorder (ICD-10 - F11.99) 10/21/2024 Opioid use disorder (ICD-10 - F11.99) 11/15/2024 Opioid use disorder (ICD-10 - F11.99) 09/26/2024 Systolic murmur (ICD-10 - I38) 09/20/2024 Routine general medical examination at a health care facility (ICD-10 - Z00.00) SUPR Programs: Based on an evaluation of [facility] Patient Placement Criteria, a recommendation for placement [...] self-administe r their own oral medications per [facility] Protocol. Plan Of Treatment Future Test Test Name Order Date Echo doppler exam 09/26/2024 Ultrasound : Thyroid 09/26/2024 Insurance Providers Payer Name Payer Address Payer Phone Subscriber Number Group Number Insured Name Patient Relationship to Insured Coverage Start Date Coverage End Date [employer] [address] [place] [phone] [id number] Jaycee Rouse Self - patient is the insured 3 [employer] [address] [place] [address] [id number] Jaycee Rouse Self - patient is the insured 5 [employer] [address] [place] [address] [id number] Jaycee Rouse Self - patient is the insured 5 Medical (General) History Medical History History ICD Code Manic Depression Surgical History Surgery Date(Month/Year) 3 c-sections right hand has pins gall bladder removed Hospitalization History Reason Date(Month/Year) gateway, multiple times between 2023- 5 06/2024
--- OUTSIDE RECORDS SUMMARY | 2024-12-23 07:45 | XMS_ITS | Clinical Summary ---
Author Organization [facility] Address [address] [place] [address] Care Team Providers Care Cable Splicer Assistant Name Role Phone Christofer Stewart MD [...] CDT - 12/17/2024 8:[address] 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 chest pain Views: 2 COMPARISON: 10/17/2024 Procedure Note Rick Grijalva MD - 12/17/2024 MEDICAL RECORDS NUMBER: [id number] PROCEDURE: XR CHEST PA LATERAL 2 VIEWS [...] Data last revised 2020. Testing performed by: [address] [address] Blood 12/17/2024 8:10 PM CDT 12/17/2024 8:14 PM CDT Hannah Muro Jr., MD LAB BLOOD ORDERABLES Fi nal Result Performing Organization Address City/[facility]/ZIP Co de Phone Number RAUL [address] [place] [address] * eGFR (12/17/2024 8:10 PM CDT) eGFR [...] was last reviewed 2020. Testing performed by: [facility], [address] [place] [address]., [address] Blood 12/17/2024 8:10 PM CDT 12/17/2024 8:14 PM CDT us Hannah Muro Jr., MD LAB BLOOD ORDERABLES Fi nal Result Performing Organization Address City/[facility]/ZIP Co de Phone Number RAUL [address] [place] [address] * Differential, auto (12/17/2024 8:10 PM CDT) [facility] Neutrophil abs 4.44 1.50 - 6.50 K/cumm Comment:Testing performed by : [address] [address] Imm gran abs 0.01 0.00 - 0.10 K/cumm [facility] Comment:Testing performed by : [address] [address] Lymphocyte abs 2.64 0.80 - 3.30 K/cumm [facility] Comment:Testing performed by : [address] [address] Monocyte abs 0.68 0.20 - 0.80 K/cumm [facility] Comment:Testing performed by : [address] [address] Eosinophil abs 0.10 0.00 - 0.50 K/cumm [facility] Comment:Testing performed by : [address] [address] Basophil abs 0.04 0.00 - 0.10 K/cumm [facility] Comment:Testing performed by : [address] [address] Neutrophil pct 56.1 % [facility] Comment: Interpretive Data Percent cell count reference ranges are not reported, since discordance with absolute values may lead to misinterpretation of CBC data. Current Interpretive Data was last revised on 2017. Testing performed by: [address] [address] Imm gran pct 0.1 % [facility] Comment: Interpretive Data Percent cell count reference ranges are not reported, since discordance with absolute values may lead to misinterpretation of CBC data. Current Interpretive Data was last revised on 2017. Testing performed by: [address] [address] Lymphocyte pct 33.4 % [facility] Comment: Interpretive Data Percent cell count reference ranges are not reported, since discordance with absolute values may lead to misinterpretation of CBC data. Current Interpretive Data was last revised on 2017. Testing performed by: [address] [address] Monocyte pct 8.6 % [facility] Comment: Interpretive Data Percent cell count reference ranges are not reported, since discordance with absolute values may lead to misinterpretation of CBC data. Current Interpretive Data was last revised on 2017. Testing performed by: [address] [address] Eosinophil pct 1.3 % RAUL Comment: Interpretive Data Percent cell count reference ranges are not reported, since discordance with absolute values may lead to misinterpretation of CBC data. Current Interpretive Data was last revised on 2017. Testing performed by: [address] [address] Basophil pct 0.5 % RAUL Comment: Interpretive Data Percent cell count reference ranges are not reported, since discordance with absolute values may lead to misinterpretation of CBC data. Current Interpretive Data was last revised on 2017. Testing performed by: [address] [address] Blood 12/17/2024 8:10 PM CDT 12/17/2024 8:14 PM CDT us Hannah Muro Jr., MD LAB BLOOD ORDERABLES nal Result [facility] [address] [facility] Department [place] [address] * (ABNORMAL) CBC with auto differential (12/17/2024 8:10 PM CDT) WBC 7.91 3.80 - 9.90 K/cumm Comment:Testing performed by : [address] [address] Hgb 11.2(L) 11.9 - 15.5 g/dL RAUL COLON Comment:Testing performed by : [address] [address] Hct 32.7(L) 35.6 - 45.5 % RAUL COLON Comment:Testing performed by : [address] [address] Plt 367 150 - 400 K/cumm [facility] Comment:Testing performed by : [address] [address] MPV 9.4 9.1 - 12.3 fL RAUL Comment:Testing performed by : [address] [address] RBC 3.68(L) 3.90 - 5.20 M/cumm [facility]UL COLON Comment:Testing performed by : [address] [address] MCV 88.9 81.3 - 96.4 fL RAUL Comment:Testing performed by : [address] [address] MCH 30.4 27.1 - 33.3 pg RAUL Comment:Testing performed by : [address] [address] MCHC 34.3 32.3 - 35.7 g/dL RAUL Comment:Testing performed by : [address] [address] RDW CV 12.9 11.1 - 14.9 % RAUL Comment:Testing performed by : [address] [address] RDW SD 42.3 35.7 - 48.1 fL RAUL Comment:Testing performed by : [address] [address] NRBC abs 0.00 0.00 - 0.01 K/cumm RAUL Comment:Testing performed by : [address] [address] Blood Venous blood specimen / Unknown 12/17/2024 8:10 PM CDT 12/17/2024 8:14 PM CDT us Hannah Muro Jr., MD LAB BLOOD ORDERABLES Fi nal Result RAUL [address] [facility] Department [place] [address] * (ABNORMAL) Comprehensive metabolic panel (12/17/2024 8:10 PM CDT) Sodium 139 135 - 145 mmol/L Comment:Testing performed by : [address], [place]., [address] Potassium, pl 4.0 3.3 - 4.9 mmol/L RAUL Comment:Testing performed by : [address], [place]., [address] Chloride 104 97 - 110 mmol/L RAUL Comment:Testing performed by : [address], [place]., [address] CO2 26 22 - 32 mmol/L RAUL Comment:Testing performed by : [address], [place]., [address] Anion gap 9 2 - 15 mmol/L RAUL Comment:Testing performed by : [address], [place]., [address] BUN 17 6 - 25 mg/dL RAUL Comment:Testing performed by : [address], [place]., [address] Creatinine 0.80 0.60 - 1.10 mg/dL RAUL Comment:Testing performed by : [address], [place]., [address] Glucose 103 70 - 199 mg/dL [facility] Comment: Interpretive Data Fasting glucose >/= 126 [...] was last revised 2022. Testing performed by: [address] [address] Calcium 9.1 8.5 - 10.3 mg/dL RAUL Comment:Testing performed by : [address], [place]., [address] Bilirubin, total 0.2 0.1 - 1.2 mg/dL RAUL Comment:Testing performed by : [address] [address] Protein, pl 6.3(L) 6.5 - 8.5 g/dL RAUL Comment:Testing performed by : [address] [address] Albumin 3.9 3.5 - 5.0 g/dL RAUL COLON Comment:Testing performed by : [address], [address] Alk phos 69 40 - 130 Units/L RAUL Comment:Testing performed by : [address] [address] ALT 10 7 - 45 Units/L RAUL Comment:Testing performed by : [address], [address] AST 16 10 - 45 Units/L RAUL Comment:Testing performed by : [address], [address] Blood 12/17/2024 8:10 PM CDT 12/17/2024 8:14 PM CDT us Hannah Muro Jr., MD LAB BLOOD ORDERABLES Fi nal Result RAUL [address] [facility] Department of Laboratories [place], [place] [id number] * ECG 12 lead (12/17/2024 8:02 PM CDT) Ventricular Rate EKG/Min 67 BPM [facility] Atrial Rate 67 BPM [facility] NV-Interval (MSEC) 120 ms [facility] QRS-Interval (MSEC) 94 ms [facility] QT-Interval (MSEC) 392 ms [facility] QTc 414 ms [facility] P [place] 65 degrees [facility] R [place] 60 degrees [facility] T [place] 58 degrees [facility] Diagnosis Normal sinus rhythm Possible Left atrial enlargement Borderline ECG No previous ECGs available Confirmed by MD KARI, HANNAH ([id number]) on 12/18/2024 10:03:54 AM [facility] 12/17/2024 8:02 PM CDT 12/18/2024 10:03 AM CDT us Hannah Muro Jr., MD ECG ORDERABLES Final R esult [facility] * XR Chest Pa Lateral 2 Vw (10/17/2024 2:20 AM CDT) Anatomical Region Laterality Modality Body, Chest N/A Computed Radiogr aphy 10/17/2024 2:35 AM CDT Narrative 10/17/2024 2:36 AM CDT EXAM DESCRIPTION: XR CHEST PA LATERAL 2 VIEWS REASON FOR STUDY: cough Pt has flight of ideas and multiple medical complaints arrived via [facility] discharged from [facility] this AM. Smoker TECHNIQUE: Frontal and lateral [...] Ml Foster M.D. SN: SN Report ID: [id number] Reading Location: [id number] Procedure Note Ml Foster MD - 10/17/2024 EXAM DESCRIPTION: XR CHEST PA LATERAL 2 VIEWS REASON FOR STUDY: cough [facility] has flight of [facility] Smoker TECHNIQUE: Frontal and lateral radiographic views of the chest acquired. COMPARISON: None. FINDINGS: LUNGS/PLEURA: No focal consolidation or pneumothorax. No pleuraleffusion. HEART/MEDIASTINUM: Cardiac silhouette is normal. Remaining mediastinal silhouettes are unremarkable. HARDWARE/LINES/TUBES: EKG leads overlie the film. BONES: No acute findings. IMPRESSION: No acute cardiopulmonary abnormality. THIS IS AN ELECTRONICALLY VERIFIED FINAL REPORT 10/17/2024 2:36 AM - Electronically signed by lM Foster M.D. SN: SN Report ID: [id number] Reading Location: [id number] us Tre Roche MD IMG XR PROCEDURES Final Result * ECG 12 lead (10/17/2024 12:07 AM CDT) 10/17/2024 12:0 7 AM CDT Narrative [facility] - 10/17/2024 6:47 AM CDT Vent Rate: 84 bpm RR Interval: 709 msec NV Interval: 111 msec QRS Duration: 96 msec QT Interval: 362 msec QTC Interval: 403 msec P-R-T [place]: 80 - 73 - 64 degrees IMPRESSION: Baseline artifact, probable SINUS RHYTHM WITH SHORT NV INTERVAL LEFT ATRIAL ENLARGEMENT [-0.15mV P WAVE IN V1/V2] POSSIBLE LEFT VENTRICULAR HYPERTROPHY [VOLTAGE CRITERIA PLUS LAE OR QRS WIDENING] ABNORMAL ECG NO CHANGE FROM PREVIOUS TRACING NOTED Electronically Signed By: Francois Casarez MD us Jamarcus Irvin MD ECG ORDERABLES Final Result [facility] from Last 3 Months Insurance [facility] Advance Directives For more information, please contact: [phone] * Full Code (Latest Code Status on File) Date Activated Date Inactivated Comments 10/20/2023 12:17 PM 10/20/2023 8:58 PM Care Teams Cable Splicer Assistant Relationship Specialty Start Date End Date Christofer Stewart MD PCP - General Family Medicine 06/23/23
--- OUTSIDE RECORDS SUMMARY | 2024-12-23 07:46 | XMS_ITS | Clinical Summary ---
Author Organization [facility] Address [address], [address] [address] Phone Care Team Providers Care Director Of Strategic Sourcing Name Role Phone Delisa Wendie N DATABASE MARKETING MANAGER, HAND BUTTON SPLITTER Primary Care Provider [phone] Allergies Active Allergy Reactions Criticality Noted Date [...] CDT - 12/19/2024 1:03 PM CDT Emergency [facility] Emergency [address] [place] [address] Willis Lee, PAC Chest pain Discharge Disposition: Discharged to home or Selfcare 12/19/2024 Travel 12/05/2024 [facility] [place] [address] Delisa, Wendie Pizarro, DATABASE MARKETING MANAGER, HAND BUTTON SPLITTER THYROID, VITAMIN D, 25 HYDROXY TOTAL, VITAMIN B12, Additional followed-up results: 5 12/02/2024 10:49 AM CDT - 12/02/2024 11:59 PM CDT Hospital [facility] Ultrasound [address] [place] [address] Delisa, Wendie Pizarro, DATABASE MARKETING MANAGER, HAND BUTTON SPLITTER Discharge Disposition: Discharged to home or Selfcare 12/02/2024 Travel 11/21/2024 2:30 PM CDT [facility] [place] [address] Delisa, Wendie Pizarro, DATABASE MARKETING MANAGER, HAND BUTTON SPLITTER Depression with anxiety (Primary Dx); At risk for sexually transmitted disease due to unprotected sex Discharge Disposition: Discharged to home or Selfcare 11/21/2024 Travel 11/17/2024 9:39 AM CDT - 11/17/2024 11:17 AM CDT Emergency [facility] Emergency [address] [place] [address] Hugh Palencia, DO Viral syndrome Discharge Disposition: Discharged to home or Selfcare 11/17/2024 Telephone [facility] [place] [address] Oejohny, Wendie Pizarro, DATABASE MARKETING MANAGER, HAND BUTTON SPLITTER 11/17/2024 Nurse Triage [facility] [address] [place] [phone] Oejohny, Wendie Pizarro, DATABASE MARKETING MANAGER, HAND BUTTON SPLITTER Breathing Problem 11/16/2024 2:15 PM CDT [facility] [place] [address] Óscar Doss APRN, CNP Chest discomfort (Primary Dx) Discharge Disposition: Discharged to home or Selfcare 11/16/2024 Documentation Only [facility] Mammography [address] [place] [address] Wendie Hercules APRN, CNP 11/15/2024 10:03 PM CDT - 11/16/2024 12:06 AM CDT Emergency [facility] Emergency [address] [place] [address] Billy Cagle MD Chest pain, unspecified type Discharge Disposition: Discharged to home or Selfcare 11/15/2024 Travel 11/11/2024 Telephone [facility] [place] [address] Wendie Hercules APRN, CNP Need Order 10/21/2024 2:00 PM CDT [facility] [place] [address] Wendie Hercules APRN, CNP Encounter for preventative adult health care exam with abnormal findings (Primary Dx); History of methadone use; Anxiety and depression; Nodule of left lobe of thyroid gland; Vaginal pain; Encounter for screening mammogram for breast cancer Discharge Disposition: Discharged to home or Selfcare 10/21/2024 Travel 10/21/2024 Telephone [facility] [address] [place] [phone] Provider, None New Patient from Last [...] st Contact Info) Description 01/03/2025 2:30 PM DATA INTEGRATION DEVELOPER Office Visit [facility] [address] [place] [phone] Wendie Hercules N, DATABASE MARKETING MANAGER, HAND BUTTON SPLITTER 2 [facility] [place]. [address] [place] [address] Health Maintenance Due Date Last Done Comments [...] time period is included. Pathologist [facility] TROPONIN I, HIGH SENSITIVITY- OLIVA 2.9 <=14.0 ng/L 12/19/2024 1:10 PM CDT [email or web address] LAB Comment: High-sensitivity troponin I results are reported in ng/L making the result appear to be 1,000 times higher than the contemporary troponin I value which is reported in ng/ml. Results from [facility]. Blood Venipuncture / Unknown 12/19/2024 12:33 PM CDT 12/19/2024 12:44 PM CDT us Willis Francisco Javier Lee PAC CHEMISTRY ORDERABLES Final Result [facility] [address] [place] [address] * NT-proBNP (12/19/2024 10:44 AM CDT) Pathologist [facility] NT PROBNP 177.3 <450.0 pg/mL 12/19/2024 11:17 AM CDT [facility] [[email or web address]] LAB Comment: AGE pg/mL INTERPRETATION All <300 [...] Mcintyre Jesus PAC CHEMISTRY ORDERABLES Final Result [facility] [address] [place] [address] * (ABNORMAL) CBC with Auto Differential (12/19/2024 10:44 AM CDT) Only the most recent of4 resultswithin the time period is included. WBC 5.71 4.00 - 12.00 10(3)/mcL 12/19/2024 10:52 AM CDT [facility] [[email or web address]] LAB RBC 4.01 3.80 - 5.30 10(6)/mcL 12/19/2024 10:52 AM CDT [facility] [[email or web address]] LAB HEMOGLOBIN (HGB) 12.2 12.0 - 15.8 g/dL 12/19/2024 10:52 AM CDT [facility] [[email or web address]] LAB HEMATOCRIT (HCT) 37.7 36.0 - 47.0 % 12/19/2024 10:52 AM CDT [facility] [[email or web address]] LAB MCV 94.0 82.0 - 96.0 fL 12/19/2024 10:52 AM CDT [facility] [[email or web address]] LAB MCH 30.4 26.0 - 34.0 pg 12/19/2024 10:52 AM CDT [facility] [[email or web address]] LAB MCHC 32.4 31.0 - 36.0 g/dL 12/19/2024 10:52 AM CDT [email or web address]] LAB PLATELET COUNT 396 140 - 440 10(3)/mcL 12/19/2024 10:52 AM CDT [facility] [[email or web address]] LAB RDW 12.7 11.8 - 15.5 % 12/19/2024 10:52 AM CDT [facility] [[email or web address]] LAB MPV 9.5(L) 9.7 - 12.4 fL 12/19/2024 10:52 AM CDT [facility] NEUTROPHILS 70.2 47.0 - 73.0 % 12/19/2024 10:52 AM CDT [facility] LYMPHOCYTES 20.1 18.0 - 42.0 % 12/19/2024 10:52 AM CDT [facility] MONOCYTES 8.1 4.0 - 12.0 % 12/19/2024 10:52 AM CDT [facility] EOSINOPHILS 0.7 0.0 - 5.0 % 12/19/2024 10:52 AM CDT [facility] BASOPHILS 0.7 0.0 - 1.0 % 12/19/2024 10:52 AM CDT [facility] IMMATURE GRANULOCYTE 0.2 0.0 - 0.4 % 12/19/2024 10:52 AM CDT [facility] ABSOLUTE NEUTROPHILS 4.01 1.60 - 7.70 10(3)/[facility] 12/19/2024 10:52 AM CDT [facility] ABSOLUTE LYMPHOCYTES 1.15(L) 1.30 - 3.20 10(3)/[facility] 12/19/2024 10:52 AM CDT [facility] ABSOLUTE MONOCYTES 0.46 0.20 - 1.00 10(3)/[facility] 12/19/2024 10:52 AM CDT [facility] ABSOLUTE EOSINOPHIL 0.04 0.00 - 0.40 10(3)/[facility] 12/19/2024 10:52 AM CDT [facility] ABSOLUTE BASOPHILS 0.04 0.00 - 0.10 10(3)/[facility] 12/19/2024 10:52 AM CDT [facility] ABSOLUTE IMMATURE GRANULOCYTE 0.01 0.00 - 0.03 10 (3) [facility]. 12/19/2024 10:52 AM CDT [facility] NRBC PER 100 WBC 0 12/20/19 10:52 AM [facility] Blood Venipuncture / Unknown 12/19/2024 10:44 AM CDT 12/19/2024 10:50 AM CDT Willis Lee PAC HEMATOLOGY ORDERABLE S Final Result Performing Organization Address City/[facility]/ZIP Co de Phone Number [facility] [[email or web address]] LAB #[address] [place] [address] * Magnesium (12/19/2024 10:44 AM CDT) Only the most recent of2 resultswithin the time period is included. MAGNESIUM 2.1 1.6 - 2.6 mg/dL 12/19/2024 11:13 AM CDT [facility] [[email or web address]] LAB Blood Venipuncture / Unknown 12/19/2024 10:44 AM CDT 12/19/2024 10:50 AM CDT Willis Lee PAC CHEMISTRY ORDERABLES Final Result Performing Organization Address City/[facility] Co de Phone Number [facility] [[email or web address]] LAB [address] [place] [address] * Ethyl Alcohol(Ethanol) [id number] (12/19/2024 10:44 AM CDT) ETHANOL <10 <10 mg/dL 12/19/2024 11:13 AM CDT [facility] [[email or web address] LAB Blood Venipuncture / Unknown 12/19/2024 10:44 AM CDT 12/19/2024 10:50 AM CDT Narrative [facility] [[email or web address] LAB - 12/19/2024 11:13 AM CDT FOR MEDICAL USE ONLY Willis Lee PAC CHEMISTRY ORDERABLES Final Result [facility] [address] [place] [address] * CMP (12/19/2024 10:44 AM CDT) Only the most recent of4 resultswithin the time period is included. SODIUM 140 136 - 145 mmol/L 12/19/2024 11:13 AM CDT [facility] POTASSIUM 4.0 3.5 - 5.1 mmol/L 12/19/2024 11:13 AM CDT [facility] CHLORIDE 104 98 - 107 mmol/L 12/19/2024 11:13 AM CDT [facility] CO2, VENOUS 26 22 - 30 mmol/L 12/19/2024 11:13 AM CDT [facility] [[email or web address]] LAB ANION GAP 14.0 <18.0 mmol/L 12/19/2024 11:13 AM CDT [facility] GLUCOSE 88 70 - 99 mg/dL 12/19/2024 11:13 AM CDT [facility] BUN 9 5 - 18 mg/dL 12/19/2024 11:13 AM T [facility] CREATININE, BLOOD 0.74 0.60 - 1.00 mg/dL 12/19/2024 11:13 AM CDT [facility] BUN/CREATININE RATIO 12 12 - 20 ratio 12/19/2024 11:13 AM CDT [facility] TOTAL PROTEIN 7.4 6.0 - 8.0 g/dL 12/19/2024 11:13 AM CDT [facility] ALBUMIN 4.4 3.5 - 5.0 g/dL 12/19/2024 11:13 AM T [facility] A/G RATIO 1.5 1.0 - 2.2 12/19/2024 11:13 AM CDT [facility] CALCIUM 9.4 8.7 - 10.5 mg/dL 12/19/2024 11:13 AM CDT [facility] T BILI 0.5 0.2 - 1.2 mg/dL 12/19/2024 11:13 AM CDT [facility] SGOT (AST) 24 <43 U/L 12/19/2024 11:13 AM CDT [facility] [[email or web address]] LAB SGPT (ALT) 17 <56 U/L 12/19/2024 11:13 AM CDT [facility] ALKALINE PHOSPHATASE 74 40 - 150 U/L 12/19/2024 11:13 AM CDT [facility] GFR, ESTIMATED >60 >=60 12/19/2024 11:13 AM CDT [facility] Comment: Creatinine Clearance is the preferred criteria for selecting drug dose adjustments in renally impaired patients. The GFR is provided as additional pertinent clinical information. GFR is reported in mL/min/1.73 sq m. Calculation based on the 2020 Chronic Kidney Disease Epidemiology Collaboration (CKD-EPI) equation refit without adjustment for race. GFR, EST. >60 >=60 11:13 AM CDT [facility] Comment: Creatinine Clearance is the preferred criteria for selecting drug dose adjustments in renally impaired patients. The GFR is provided as additional pertinent clinical information. GFR is reported in mL/min/1.73 sq m. Calculation based on the 2009 Chronic Kidney Disease Epidemiology Collaboration (CKD-EPI). GFR, EST. NONAFRICAN >60 >=60 12/19/2024 11:13 AM CDT [facility] Comment: Creatinine Clearance is the [...] Willis Lee PAC CHEMISTRY ORDERABLES Final Result [facility] [address] [place] [address] * EKG 12 LEAD (12/19/2024 10:36 AM CDT) Only the most recent of3 resultswithin the time period is included. Ventricular Rate 70 BPM EXTERNAL EKG Atrial Rate 70 BPM EXTERNAL EKG P-R Interval 118 ms EXTERNAL EKG QRS Duration 90 ms EXTERNAL EKG Q-T Duration 384 ms EXTERNAL EKG QTC CALCULATION 414 ms EXTERNAL EKG P [place] 63 degrees EXTERNAL EKG R [place] 60 degrees EXTERNAL EKG T [place] 52 degrees EXTERNAL EKG 12/19/2024 10:3 6 AM CDT Impressions EXTERNAL EKG - 12/19/2024 4:09 PM CDT Normal sinus rhythm Normal ECG When compared with ECG of 17-NOV-2024 09:47, No significant change was found Confirmed by Jn Nguyen ([id number]) on 12/19/2024 4:09:26 PM Narrative Procedure Note Jn Nguyen MD PhD - 12/19/2024 IMPRESSION: Normal sinus rhythm Normal ECG When compared with ECG of 17-NOV-2024 09:47, No significant change was found Confirmed by Jn Nguyen ([id number]) on 12/19/2024 4:09:26 PM us Billy Cagle MD IMG ECG ORDERABLES Final Result Performing Organization Address City/[facility] Co de Phone Number EXTERNAL EKG * [...] CDT DICTATING PHYSICIAN: Mickey Mccarty D.O. - [facility], Later [facility] US THYROID, 12/02/2024 11:09 AM [...] (2) with internal vascularity. Echogenicity: Hyperechoic (1). Zauovl-dmwd-Haro: no (0). Margins: Smooth (0). Echogenic foci: None (0). ACR TI-RADS Classification: TR 3 (3 points) Procedure Note Mickey Mccarty, - 12/03/2024 DICTATING PHYSICIAN: Mickey Mccarty D.O. - [facility] US THYROID, 12/02/2024 11:09 AM CLINICAL [...] solid (2) with internalvascularity. Echogenicity: Hyperechoic (1). Rptidl-lbxv-Uzvp: no (0). Margins: Smooth (0). Echogenic foci: [...] the 2017 [employer]. us May N Oehl DATABASE MARKETING MANAGER, HAND BUTTON SPLITTER IMG US ORDERABLES Final R esult * VITAMIN D, 25 HYDROXY TOTAL (12/02/2024 10:47 AM CDT) VITAMIN D, 25 HYDROX 27.9 ng/mL 12/02/2024 12:19 PM CDT [facility] Blood Venipuncture / Unknown 12/02/2024 10:47 AM CDT 12/02/2024 11:12 AM CDT Narrative [facility] - 12/02/2024 12:19 PM CDT Published reference ranges for Vitamin D vary depending on time and place and method of testing, and on patient's age, sex, ethnicity and levels of other measured analytes such as parathormone, calcium and phosphorus. The result should be evaluated in conjunction with clinical findings and suspicions. [facility] Clinical Practice Guidelines: Status Vitamin D levels (ng/mL) Deficient <=20 At risk of inadequacy 21-29 Sufficient 30-100 Centers of Disease Control and Prevention Guidelines: Status Vitamin D levels (ng/mL) Deficient <13 At risk of inadequacy 13-19 Sufficient 20-50 Possibly harmful >50 References: [facility] [employer] [facility], 2010 Dietary reference intakes for calcium and vitamin D. [place]: The National Academies Press. Betsy M, Ariadne N, Glen ZAMUDIO, et al., Evaluation, treatment, and prevention of Vitamin D deficiency: an Endocrinology Clinical Practice Guideline. JCEM 2011 96: 7 4746-3618. Kenan A, Desmond C, Tyra D, et al., Vitamin D Status: [place], 1572-1127, [facility] data brief, no. 59, MD [place]: National Center for Health Statistics. 2011. us May N Vibhahl DATABASE MARKETING MANAGER, HAND BUTTON SPLITTER CHEMISTRY ORDERABLES Adelaide l Result [facility] #[address] [place] [address] * THYROID SCREEN WITH REFLEX (12/02/2024 10:47 AM CDT) TSH 1.382 0.300 - 5.000 mIU/L 12/02/2024 12:07 PM CDT [facility] [[email or web address]] LAB Blood Venipuncture / Unknown 12/02/2024 10:47 AM CDT 12/02/2024 11:12 AM CDT us May N Delisa BRISCOE, ELVIA CHEMISTRY ORDERABLES Adelaide l Result [facility] [[email or web address]] LAB #[address] [place] [address] * VITAMIN B12 (12/02/2024 10:47 AM CDT) VITAMIN B12 418 213 - 816 pg/mL 12/02/2024 12:19 PM CDT [facility] [[email or web address] LAB Blood Venipuncture / Unknown 12/02/2024 10:47 AM CDT 12/02/2024 11:12 AM CDT us May N Delisa BRISCOE CNP CHEMISTRY ORDERABLES Adelaide l Result Performing Organization Address City/[facility]/ZIP Co de Phone Number [facility] #[address] [place] [address] * THYROXINE (T4) FREE (12/02/2024 10:47 AM CDT) T4 FREE 0.8 0.7 - 1.9 ng/dL 12/02/2024 12:08 PM CDT [facility] [[email or web address] LAB Blood Venipuncture / Unknown 12/02/2024 10:47 AM CDT 12/02/2024 11:12 AM CDT us May N Delisa BRISCOE CNP CHEMISTRY ORDERABLES Adelaide l Result [facility] #[address] [place] [address] * LIPID PANEL (12/02/2024 10:47 AM CDT) CHOLESTEROL 175 <200 mg/dL 12/02/2024 11:54 AM CDT [facility] TRIGLYCERIDES 127 <150 mg/dL 12/02/2024 11:54 AM CDT [facility] HDL CHOLESTEROL 55 >40 mg/dL 11:54 AM CDT [facility] LDL 95 <130 mg/dL 12/02/2024 11:54 AM CDT [facility] VLDL 25 10 - 50 mg/dL 12/02/2024 11:54 AM CDT [facility] CHOL/HDL RATIO 3.2 0.0 - 4.4 12/02/2024 11:54 AM CDT [facility] NON-HDL CHOLESTEROL 120 <130 mg/dL 12/02/2024 11:54 AM T [facility] IS THE PATIENT REQUIRED TO BE FASTING? Yes 12/02/2024 11:54 AM [facility] HAS THE PATIENT BEEN FASTING? Yes 12/02/2024 11:54 AM [facility] Blood Venipuncture / Unknown 12/02/2024 10:47 AM CDT 12/02/2024 11:12 AM CDT Narrative [facility] - 12/02/2024 11:54 AM T NCEP [...] target levels for LDL cholesterol. may Oehl DATABASE MARKETING MANAGER, HAND BUTTON SPLITTER CHEMISTRY ORDERABLES Adelaide l Result [facility] #[address] [place] [address] * RSV,SARS-COV-2,INFLUENZA A&B BY PCR (11/17/2024 9:55 AM CDT) FLU A Negative Negative, Error 11/17/2024 11:19 AM CDT [facility] FLU B Negative Negative 11/17/2024 11:19 AM CDT [facility] RESP SYNC VIRUS Negative Negative 11:19 AM CDT [facility] SARSCOV2 NOT DETECTED (Reference Range for this test is Not Detected) 11/17/2024 11:19 AM CDT [facility] Comment:This test was perfor med by a Reverse Klystrom Tube Tester PCR Method. Nasal NASOPHARYNGEAL STRUCTURE / Unknown Non-Phlebotomy Collection / Unknown 11/17/2024 9:55 AM CDT 11/17/2024 10:36 AM CDT us Hugh Palencia DO MICROBIOLOGY - GENERAL ORDERABLES Final Result [facility] [[email or web address]] LAB #[address] [place] [address] * Gold Top Tube (11/17/2024 9:45 AM CDT) Blood No Phlebotomy Charged / Unknown 11/17/2024 9:45 AM CDT 11/17/2024 10:38 AM CDT us Hugh Palencia DO CHEMISTRY ORDERABLES Fi nal Result [facility] [[email or web address]] LAB #[address] [place] [address] * Blue Top Tube (11/17/2024 9:45 AM CDT) Blood No Phlebotomy Charged / Unknown 11/17/2024 9:45 AM CDT 11/17/2024 10:38 AM CDT us Hughkaylee Mclain Talha DO HEMATOLOGY ORDERABLES F inal Result [facility] [[email or web address]] LAB #[address] [place] [address] * XR CHEST SINGLE VIEW PORTABLE (11/15/2024 [...] Result * Human Chorionic Gonadotropin Scrn Serum [id number] (11/15/2024 10:26 PM CDT) PREG-HCG Negative Negative 11/15/2024 11:28 PM CDT [facility] Blood Venipuncture / Unknown 11/15/2024 10:26 PM CDT 11/15/2024 11:06 PM CDT us Billy Cagle MD CHEMISTRY ORDERABLES Adelaide l Result [facility] [[email or web address]] LAB #[address] [place] [address] * Lipase (11/15/2024 10:26 PM CDT) LIPASE 19 8 - 78 U/L 11/15/2024 11:28 PM CDT [email or web address] Blood Venipuncture / Unknown 11/15/2024 10:26 PM CDT 11/15/2024 11:06 PM CDT Billy Cagle MD CHEMISTRY ORDERABLES Adelaide l Result [facility] [[email or web address] #[address] [place] [address] from Last 3 Months Insurance MEDICAID [place] Care Teams Director Of Strategic Sourcing Relationship Specialty Start Date End Date Delisa, May N, DATABASE MARKETING MANAGER, HAND BUTTON SPLITTER [address] [address] PCP - General Advanced Practice Nurse 10/21/24
--- OUTSIDE RECORDS SUMMARY | 2024-12-23 07:46 | XMS_ITS | Clinical Summary ---
Author Organization [facility] [employer] Address [address] [address] Care Team Providers Care Blanker Operator Name Role Phone Mario Logan MD Primary Care Provider Source Comments [facility] [employer] [facility],non-owned Affiliates and Associated Physician Practices is amultiple site organization consisting of ambulatory clinics and hospital sitesin [place], [place], [place] and [place]. This disclosure is being madepursuant to the Care Everywhere program and may not contain all information available regarding this patient. Last updated 17.[facility] Allergies Active Allergy Reactions Criticality Noted Date [...] naloxone HCl (NARCAN) 4 MG/0.1ML nasal spray [place] 1 spray into the nose as needed [...] migh t be different from the original. [id number] Problem Noted Date Diagnosed Date Non-reactive NST [...] 02/28/2014 Overview (05/05/2019): Confirmed dose-270 mg from [facility]. Scanned Into media. Previously used heroin [...] on file Legal Sex Female 7:09 AM [employer] Gender Identity Not on file Sexual Orientation [...] P24 AG PANEL Routine 03/10/2019 1:24 PM [employer] Supervision of high risk in second trimester HEPATITIS C ANTIBODY Routine 11/11/2018 12:07 PM CDT Supervision of high risk , antepartum from Last 3 Months or Most Recently Relevant to Health Maintenance Results * HIV-1 HIV-2 ANTIBODY + HIV P24 AG PANEL (03/10/2019 1:24 PM [employer]) Pathologist [facility] HIV1/2 Ab + P24 Ag Non Reactive Non Reactive 03/10/2019 2:57 PM [employer] [facility] Blood BLOOD SPECIMEN / Unknown Venipuncture / Unknown 03/10/2019 1:24 PM [employer] 03/10/2019 1:49 PM [employer] Narrative [facility] - 03/10/2019 2:57 PM [employer] No Laboratory evidence of HIV infection. us Ivana Thomas [facility] LABOURER-FORMING MACHINE ADJUSTER LAB - CHEMISTRY ORDERAB LES Final Result [facility] [address] [place] [address] * HEPATITIS C ANTIBODY (11/11/2018 12:07 PM CDT) HCV Antibody Screen Non Reactive Non Reactive 11/11/2018 1:55 PM CDT [facility] HCV S/C Ratio 0.19 0.00 - 0.79 11/11/2018 1:55 PM CDT [facility] Comment: Uqkiog-zo-psjouk ratio (S/CO) <0.80: Non Reactive Blood BLOOD SPECIMEN / Unknown Venipuncture / Unknown 11/11/2018 12:07 PM CDT 11/11/2018 12:56 PM CDT Narrative [facility] - 11/11/2018 1:55 PM CDT Non Reactive - Antibodies to Hepatitis C virus (HCV) were not detected, result does not exclude early acute HCV infection. Helen Zurita [facility] LABOURER-FORMING MACHINE ADJUSTER LAB - CHEMISTRY ORDERA BLES Final Result Performing Organization Address City/State/[facility] Co de Phone Number [facility] [address] [place] [address] from Last 3 Months or Most Recently [...] 11:00 AM 03/17/2019 7:31 PM Care Teams Blanker Operator Relationship Specialty Start Date End Date Mario Logan MD [address] [place] [id number] PCP - General 05/24/19
--- OUTSIDE RECORDS SUMMARY | 2024-12-23 07:46 | XMS_ITS | Clinical Summary ---
Author Organization [facility] Address [facility] [place] [address] Care Team Providers Care Bottom Crane Operator Name Role Phone Francisco Javier Ivan MD Primary Care Provider [phone] Allergies Active Allergy Reactions Criticality Noted Date [...] CDT - 12/18/2024 2:43 AM CDT Emergency [facility] Emergency [address] [place] [address] Billy Mayfield DO Chest Pain Discharge Disposition: Home or Self Care (Routine Discharge) 12/17/2024 Travel 12/15/2024 2:10 AM CDT - 12/15/2024 3:41 AM CDT [facility] [address] [place] [address] [address] [place] [address] Jens Rhodes MD Abdominal Pain Discharge Disposition: Home or Self Care (Routine Discharge) 12/15/2024 Travel 12/14/2024 7:01 PM CDT - 12/14/2024 11:09 PM CDT [facility] [address] [place] [address] [address] [place] [address] Jens Rhodes MD Chest Pain; Shortness Of Breath Discharge Disposition: Home or Self Care (Routine Discharge) 12/14/2024 Travel 10/18/2024 9:46 AM CDT - 10/18/2024 10:30 PM CDT Emergency [facility] [place] [address] Yovana Zamora MD Geldmacher, Kelly J, MD Medical Problem Discharge Disposition: [facility] 10/17/2024 2:59 PM CDT - 10/17/2024 8:00 PM CDT Emergency [facility] [address] [place] [address] [address] [place] [address] Familia Carter MD Medical Problem Discharge Disposition: [...] any time in the past 12 m [facility], were you homeless or living in [...] time period is included. 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1980 Requested By: DINESH FUNG Order Number: [id number] Reading MD: Chaim Wood Measurements Intervals [place] Rate: 55 P: 73 NH: 126 QRS: 66 QRSD: 94 T: 64 QT: 427 QTc: 409 Interpretive Statements SINUS BRADYCARDIA POSSIBLE LEFT ATRIAL ENLARGEMENT small nondiagnostic inferior-lateral q-waves Procedure Note Chaim Wood MD - 12/18/2024 [facility] Test Date: 2024-12-18 Pat Name: JJ SLATER Department: 70 Room: EXAM Q Gender: Female 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 * PROTIME/INR, VENOUS (12/18/2024 12:00 AM CDT) PROTIME 11.0 9.4 - 12.5 SEC 12/18/2024 12:21 AM CDT [facility] INR 0.9 0.8 - 1.1 12/18/2024 12:21 AM CDT [facility] 12/18/2024 Dinesh Fung NP LABORATORY Final Result Performing Organization Address City/[facility] Co de Phone Number [facility] [address] [place] [address], [phone] * (ABNORMAL) COMPREHENSIVE METABOLIC PANEL (12/18/2024 12:00 AM CDT) Only the most recent of4 resultswithin the time period is included. SODIUM S/P/B 140 136 - 145 MMOL/L 12/18/2024 1:07 AM CDT [facility] POTASSIUM S/P/B 3.7 3.5 - 5.1 MMOL/L 12/18/2024 1:07 AM CDT [facility] CHLORIDE S/P/B 108 97 - 115 MMOL/L 12/18/2024 1:07 AM [facility] CO2 27.2 21.0 - 32.0 MMOL/L 12/18/2024 1:07 AM [facility] GLUCOSE 101 74 - 106 MG/DL 12/18/2024 1:07 AM [facility] BUN 16 7 - 18 MG/DL 12/18/2024 1:07 AM [facility] CREATININE S/P/B 0.79 0.55 - 1.02 MG/DL 12/18/2024 1:07 AM [facility] CALCIUM S/P/B 8.5 8.5 - 10.1 MG/DL 12/18/2024 1:07 AM [facility] BILIRUBIN TOTAL S/P/B 0.2 0.2 - 1.0 MG/DL 12/18/2024 1:07 AM [facility] ALKALINE PHOSPHATASE S/P/B 75 37 - 98 U/L 12/18/2024 1:07 AM [facility] AST 14(L) 15 - 37 U/L 12/18/2024 1:07 AM [facility] ALT 18 13 - 56 U/L 12/18/2024 1:07 AM [facility] TOTAL PROTEIN S/P/B 6.3(L) 6.4 - 8.2 G/DL 12/18/2024 1:07 AM [facility] ALBUMIN S/P/B 3.3(L) 3.4 - 5.0 G/DL 12/18/2024 1:07 AM [facility] ANION GAP 4.8 2.0 - 10.0 MMOL/L 12/18/2024 1:07 AM [facility] OSMOLALITY (CALC) 291 MOSM/KG 025 1:07 AM [facility] Comment:REFERENCE RANGE NOT ESTABLISHED GFR ESTIMATE >90 >90 ML/MIN/1. 73 M2 12/18/2024 1:07 AM CDT [facility] GFR NOTES GFR REFERENCE S: 12/18/2024 1:07 AM CDT [facility] Comment: THE ESTIMATED GFR IS CALCULATED [...] FAILURE: <15 ml/min/1.73 m2 12/18/2024 Dinesh Fung MEDIA EXECUTIVE LABORATORY Final Result Performing Organization Address [facility] de Phone Number [facility] [address] [place] [address], [phone] * D-DIMER, QUANTITATIVE (12/18/2024 12:00 AM CDT) D-DIMER 271 0 - 500 ng{FEU}/mL 12/18/2024 1:02 AM CDT [facility] EXCLUSION STATEMENT 12/18/2024 1:02 AM CDT [facility] Comment: D-Dimer values less than or [...] DO LABORATORY Final Result Performing Organization Address [facility] de Phone Number [facility] [address] [place] [address], [phone] * HCG QUANT SERUM - CHORIONIC GONADOTROPIN () (12/18/2024 12:00 AM CDT) [facility] HCG QUANTITATIVE <1 MIU/ML 12/19/19 25 1:07 AM CDT [facility] Comment: <5 IS NEGATIVE 5-25 IS BORDERLINE >25 IS POSITIVE ASSAY PERFORMED BY CHEMILUMINESCENCE METHODOLOGY USING [employer] [facility]. PATIENT RESULTS DETERMINED BY ASSAYS USING DIFFERENT MANUFACTURERS FOR METHODS MAY NOT BE COMPARABLE. 12/18/2024 Dinesh Fung NP LABORATORY Final Result Performing Organization Address [facility] de Phone Number [facility] [address] [place] [address], [phone] * (ABNORMAL) CBC W/DIFF AUTOMATED (12/18/2024 12:00 AM CDT) Only the most recent of5 resultswithin the time period is included. [facility] WBC 7.96 4.00 - 10.80 x10'3/uL 12/18/2024 12:05 AM CDT [facility] RBC 3.68(L) 4.10 - 5.40 x10'6/uL 12/18/2024 12:05 AM CDT [facility] HGB 11.2(L) 12.0 - 16.0 G/DL 12/18/2024 12:05 AM CDT [facility] HCT 33.8(L) 36.0 - 47.0 % 12/18/2024 12:05 AM CDT [facility] MCV 91.8 78.0 - 100.0 FL 12/18/2024 12:05 AM CDT [facility] MCH 30.4 27.0 - 31.0 PG 12/18/2024 12:05 AM [facility] MCHC 33.1 33.0 - 36.0 G/DL 12/18/2024 12:05 AM CDT [facility] RDW 13.0 11.5 - 14.5 % 12/18/2024 12:05 AM [facility] PLT 366(H) 150 - 350 x10'3/uL 12/18/2024 12:05 AM T [facility] MPV 9.4 7.4 - 10.4 FL 12/18/2024 12:05 AM T [facility] DIFFERENTIAL TYPE AUTOMATED DIFFERENTIAL 12/18/2024 12:05 AM T [facility] SEG NEUTROPHILS 55.5 % 12:05 AM [facility] LYMPHOCYTES 32.7 % 12/18/2024 12:05 AM [facility] MONOCYTES 8.8 % 12/18/2024 12:05 AM T [facility] EOSINOPHILS 1.9 % 12/18/2024 12:05 AM T [facility] BASOPHILS 0.8 % 12/18/2024 12:05 AM T [facility] IMMATURE GRANS % 0.3 % 12/19/19 12:05 AM [facility] ABS. NEUTROPHILS 4.43 1.60 - 8.30 x10'3/uL 12/18/2024 12:05 AM CDT [facility] ABS. LYMPHOCYTES 2.60 0.80 - 4.70 x10'3/uL 12/18/2024 12:05 AM CDT [facility] ABS. MONOCYTES 0.70 0.00 - 1.50 x10'3/uL 12/18/2024 12:05 AM [facility] ABS. EOSINOPHILS 0.15 0.00 - 0.40 x10'3/uL 12/18/2024 12:05 AM T [facility] ABS. BASOPHILS 0.06 0.00 - 0.20 x10'3/uL 12/18/2024 12:05 AM CDT [facility] ABS. IMMATURE GRANULOCYTES 0.02 0.00 - 0.03 x10'3/uL 12/18/2024 12:05 AM CDT [facility] ABS. NUCLEATED RBC'S 0.00 0.00 - 0.01 x10'3/uL 12/18/2024 12:05 AM CDT [facility] NRBC % 0.0 % 12/18/2024 12:05 AM CDT [facility] 12/18/2024 Dinesh Fung NP LABORATORY Final Result Performing Organization Address [facility]/ZIP Co de Phone Number [facility] [address] [place] [address], [phone] * LIPASE (12/18/2024 12:00 AM CDT) LIPASE 51 13 - 75 UNITS/L 12/18/2024 1:15 AM CDT [facility] 12/18/2024 Dinesh Pineda Antonieta MARTINEZ LABORATORY Final Result Performing Organization Address [facility] Co de Phone Number [facility] [address] [place] [address], [phone] * TROPONIN, QUANT (12/15/2024 2:38 AM CDT) Only the most recent of2 resultswithin the time period is included. TROPONIN I HIGH SENSITIVITY 8 0 - 51 ng/L 12/15/2024 3:02 AM CDT [facility] 12/15/2024 2:38 AM CDT Jens Rhodes MD LABORATORY Final Result [facility] [address] [place] [address], * XR CHEST PORTABLE (12/14/2024 9:31 PM [...] 9:36 PM Narrative 12/14/2024 10:02 PM CDT [address] [place] [address] Examination: Chest x-ray 1 view Exam time: [...] Procedure Note Neil Carrion MD - 12/14/[address] [place] [address] Examination: Chest x-ray 1 view Exam time: [...] 8:20 PM Narrative 10/18/2024 8:22 PM CDT [address] [address] EXAMINATION: CT head without contrast HISTORY: Confusion. [...] Procedure Note Gaurav Damon DO - 10/18/2024 [facility] [address] [place], [place] [address] EXAMINATION: CT head without contrast HISTORY: Confusion. [...] URINE CLEAN CATCH 10/18/2024 4:30 PM CDT [facility] SPECIAL REQUESTS NO SPECIAL REQUEST 10/18/2024 4:30 PM CDT [facility] CULTURE RESULT POLYMICROBIAL GROWTH CONSISTENT WITH NORMAL GENITAL CAM. SUSCEPTIBILITIES NOT ROUTINELY PERFORMED. 10/19/2024 8:45 AM CDT [facility] URINE SPECIMEN OBTAINED BY CLEAN CATCH PROCEDURE / Unknown 10/18/2024 4:30 PM CDT 10/18/2024 8:10 PM CDT us Yovana Zamora MD MICROBIOLOGY - GENERAL ORDERA BLES Final Result [facility] [address] [place] [address], * RESPIRATORY PCR PANEL 2 (10/18/2024 12:33 PM CDT) Pathologist [facility] ADENOVIRUS PCR (RESP) NOT DETECTED NOT DETECTED 10/18/2024 1:50 PM CDT [facility] CORONAVIRUS 229E PCR (RESP) NOT DETECTED NOT DETECTED 10/18/2024 1:50 PM CDT [facility] CORONAVIRUS HKU1 PCR (RESP) NOT DETECTED NOT DETECTED 10/18/2024 1:50 PM CDT [facility] CORONAVIRUS NL63 PCR (RESP) NOT DETECTED NOT DETECTED 10/18/2024 1:50 PM CDT [facility] CORONAVIRUS OC43 PCR (RESP) NOT DETECTED NOT DETECTED 10/18/2024 1:50 PM CDT [facility] METAPNEUMOVIRUS PCR (RESP) NOT DETECTED NOT DETECTED 10/18/2024 1:50 PM CDT [facility] RHINOVIRUS/ENTEROV IRUS PCR (RESP) NOT DETECTED NOT DETECTED 10/18/2024 1:50 PM CDT [facility] INFLUENZA A PCR (RESP) NOT DETECTED NOT DETECTED 10/18/2024 1:50 PM CDT [facility] INFLUENZA B PCR (RESP) NOT DETECTED NOT DETECTED 10/18/2024 1:50 PM CDT [facility] PARAINFLUENZA 1 PCR (RESP) NOT DETECTED NOT DETECTED 10/18/2024 1:50 PM CDT [facility] PARAINFLUENZA 2 PCR (RESP) NOT DETECTED NOT DETECTED 10/18/2024 1:50 PM CDT [facility] PARAINFLUENZA 3 PCR (RESP) NOT DETECTED NOT DETECTED 10/18/2024 1:50 PM CDT [facility] PARAINFLUENZA 4 PCR (RESP) NOT DETECTED NOT DETECTED 10/18/2024 1:50 PM CDT [facility] RSV PCR (RESP) NOT DETECTED NOT DETECTED 10/18/2024 1:50 PM CDT [facility] B PARAPERTUSIS PCR (RESP) NOT DETECTED NOT DETECTED 10/18/2024 1:50 PM CDT [facility] BORDETELLA PERTUSSIS PCR (RESP) NOT DETECTED NOT DETECTED 10/18/2024 1:50 PM CDT [facility] CHLAMYDOPHILA PNEUMONIAE PCR (RESP) NOT DETECTED NOT DETECTED 10/18/2024 1:50 PM CDT [facility] MYCOPLASMA PNEUMONIAE PCR (RESP) NOT DETECTED NOT DETECTED 10/18/2024 1:50 PM CDT [facility] CORONAVIRUS SARS COV 2 PCR (RESP) NOT DETECTED NOT DETECTED 10/18/2024 1:50 PM CDT [facility] NASOPHARYNGEAL SWAB / Unknown 10/18/2024 12:33 PM CDT Yovana Zamora MD MICROBIOLOGY - GENERAL ORDERA BLES Final Result [facility] [address] [place] [address], [place] [phone] * TEST URINE (10/18/2024 11:00 AM CDT) URINE HCG TEST NEGATIVE 10/18/2024 11:11 AM CDT [facility] Comment: VERY DILUTE URINE SPECIMENS MAY NOT CONTAIN MORTICIAN HELPER LEVELS OF HCG. IF IS STILL SUSPECTED, A SERUM HCG TEST IS RECOMMENDED. URINE SPECIMEN FROM URETHRA / Unknown 10/18/2024 11:00 AM CDT Yovana Zamora MD URINE ORDERABLES Final Result [facility] [address] [place] [address], [place] [phone] * (ABNORMAL) URINALYSIS, AUTO, COMPLETE (10/18/2024 11:00 AM CDT) SPECIMEN TYPE URINE CLEAN CATCH 10/18/2024 11:01 AM CDT [facility] COLOR (U) DARK BROWN 10/18/2024 11:23 AM CDT [facility] TRANSPARENCY TURBID 10/18/2024 11:23 AM CDT [facility] SPECIFIC GRAVITY (U) 1.034(H) 1.001 - 1.030 10/18/2024 11:23 AM CDT [facility] U PH 5.5 5.0 - 9.0 10/18/2024 11:23 AM CDT [facility] LEUKOCYTES (U) 250(A) NEGATIVE 10/18/2024 11:23 AM CDT [facility] NITRITES NEGATIVE NEGATIVE 10/18/2024 11:23 AM CDT [facility] PROTEIN RANDOM (U) 100(H) <30 MG/DL 10/18/2024 11:23 AM CDT [facility] GLUCOSE (U) NORMAL NORMAL MG/DL 10/18/2024 11:23 AM CDT [facility] KETONES MG/DL (U) 60(A) NEGATIVE MG/DL 10/18/2024 11:23 AM CDT [facility] UROBILINOGEN NORMAL NORMAL MG/DL 10/18/2024 11:23 AM CDT [facility] BILIRUBIN (U) NEGATIVE NEGATIVE MG/DL 10/18/2024 11:23 AM T [facility] BLOOD (U) 3+(A) NEGATIVE 10/18/2024 11:23 AM CDT [facility] MUCUS MANY /LPF 10/18/2024 11:23 AM CDT [facility] WBC/HPF >100(H) <6 /HPF 10/18/2024 11:23 AM CDT [facility] RBC/HPF >100(H) <6 /HPF 10/18/2024 11:23 AM CDT [facility] SQUAMOUS EPITHELIALS MODERATE /HPF 10/18/2024 11:23 AM CDT [facility] URINE SPECIMEN OBTAINED BY CLEAN CATCH PROCEDURE / Unknown 10/18/2024 11:00 AM CDT us Yovana Zamora MD URINE ORDERABLES Final Result [facility] [address] [place] [address], [place] [phone] * (ABNORMAL) DRUG SCREEN RAPID (10/18/2024 10:56 AM CDT) Only the most recent of2 resultswithin the time period is included. AMPHETAMINE (U) POSITIVE(A) NEGATIVE 10/19/19 11:27 AM CDT [facility] BARBITURATES SCREEN (U) POSITIVE(A) NEGATIVE 10/18/2024 11:27 AM CDT [facility] BENZODIAZEPINES SCREEN (U) NEGATIVE NEGATIVE 10/18/2024 11:27 AM CDT [facility] CANNABINOIDS SCREEN (U) NEGATIVE NEGATIVE 10/18/2024 11:27 AM CDT [facility] COCAINE METABOLITES (U) NEGATIVE NEGATIVE 10/18/2024 11:27 AM CDT [facility] METHADONE (U) NEGATIVE NEGATIVE 10/18/2024 11:27 AM CDT [facility] OPIATE SCREEN (U) NEGATIVE NEGATIVE 025 11:27 AM CDT [facility] PHENCYCLIDINE PCP (U) NEGATIVE NEGATIVE 10/18/2024 11:27 AM CDT [facility] Comment: NOTE: RESULTS OF THIS DRUG SCREEN SHOULD BE USED FOR MEDICAL PURPOSES ONLY AND NOT FOR LEGAL OR EMPLOYMENT PURPOSES. POSITIVE RESULTS ARE NOT CONFIRMED. MEDICATIONS CONTAINING EPHEDRINE MAY CAUSE FALSE POSITIVE AMPHETAMINE CALL [phone], LAB, TO REQUEST CONFIRMATION TESTING. IF CREATININE IS <40 mg/dL. RECOLLECTION IS SUGGESTED. AMPHETAMINE- 500 NG/ML BARBITURATE- 200 NG/ML BENZODIAZEPINES- 200 NG/ML THC- 50 NG/ML COCAINE- 150 NG/ML METHADONE- 300 NG/ML OPIATE- 300 MG/ML PCP- 25 NG/ML CREATININE (U) 337.0(H) 28 - 217 MG/DL 10/18/2024 11:27 AM CDT [facility] URINE SPECIMEN / Unknown 10/18/2024 10:56 AM CDT Yovana Zamora MD URINE ORDERABLES Final Result [facility] [address] [place] [address], [place] [phone] * (ABNORMAL) MAGNESIUM (10/18/2024 10:45 AM CDT) MAGNESIUM 2.5(H) 1.8 - 2.4 MG/DL 10/18/2024 12:06 PM CDT [facility] 10/18/2024 10:4 5 AM CDT Yovana Zamora MD LABORATORY Final Result [facility] [address] [place] [address], * (ABNORMAL) SALICYLATE (10/18/2024 10:45 AM CDT) SALICYLATES 2.0(L) 2.8 - 20.0 MG/DL 10/18/2024 11:14 AM CDT [facility] Comment: THERAPEUTIC: 2.8-20.0 Toxic Level: >=30 10/18/2024 10:4 5 AM CDT Yovana Zamora MD LABORATORY Final Result [facility] [address] [place] [address], * CK (CPK) (10/18/2024 10:45 AM CDT) CPK 88 21 - 215 U/L 10/18/2024 12:06 PM CDT [facility] 10/18/2024 10:4 5 AM CDT Yovana Zamora MD LABORATORY Final Result [facility] [address] [place] [address], * THYROID STIM HORMONE, TSH (10/18/2024 10:17 AM CDT) TSH 1.380 0.358 - 3.74 uIU/ML 10/18/2024 11:12 AM CDT [facility] Comment: HIGH DOSES OF BIOTIN MAY INTERFERE WITH THIS TEST RESULT. CORRELATION TO CLINICAL HISTORY AND PRESENTATION RECOMMENDED. 10/18/2024 10:1 7 AM CDT Yovana Zamora MD LABORATORY Final Result [facility] [address] [place] [address], * ETHANOL (10/18/2024 10:17 AM CDT) Only the most recent of2 resultswithin the time period is included. ALCOHOL S/P/B <0.003 <0.003 G/DL 10/18/2024 11:12 AM CDT [facility] 10/18/2024 10:1 7 AM CDT Yovana Zamora MD LABORATORY Final Result Performing Organization Address City/[facility]/ZIP Co de Phone Number [facility] [address] [place] [address], * (ABNORMAL) ACETAMINOPHEN (10/18/2024 10:17 AM CDT) ACETAMINOPHEN S/P/B <2.0(L) 10.0 - 30.0 MCG/ML 10/18/2024 11:12 AM CDT [facility] Comment: THERAPEUTIC: 10-30 TOXIC: >200 10/18/2024 10:1 7 AM CDT Yovana Zamora MD LABORATORY Final Result [facility] [address] [place] [address], * (ABNORMAL) BASIC METABOLIC PANEL (10/17/2024 4:12 [...] MD LABORATORY Final Result Performing Organization Address City/[facility]/ZIP Co de Phone Number [facility] [place] [address], * CORONAVIRUS (COVID-19) ANTIGEN (10/17/2024 4:05 PM CDT) [facility] CORONAVIRUS ANTIGEN IA NEGATIVE NEGATIVE 10/17/2024 5:06 PM CDT [facility] Comment: NEGATIVE RESULTS DO NOT [...] SPECIMEN TYPE NASAL 10/17/2024 4:43 PM CDT [facility] NASAL NASAL STRUCTURE / Unknown 10/17/2024 4:05 PM CDT us Familia Carter MD MICROBIOLOGY - GENERAL ORDERAB LES Final Result Performing Organization Address City/[facility]/ZIP Co de Phone Number [facility] [place] [address], * HEPATITIS PANEL,ACUTE (10/13/2023 3:24 AM CDT) Pathologist [facility] HEPATITIS B SURFACE AG NON-REACT VARGHESE NON-REACT VARGHESE 10/13/2023 1:41 PM CDT [facility] Comment:HBsAg NOT DETECTED. HEP B CORE IGM NON-REACT VARGHESE NON-REACT VARGHESE 10/13/2023 1:41 PM CDT [facility] Comment: IgM ANTI HBc NOT DETECTED. DOES NOT EXCLUDE THE POSSIBILITY OF EXPOSURE TO OR INFECTION WITH HBV. NO RETEST REQUIRED. HIGH DOSES OF BIOTIN MAY INTERFERE WITH THIS TEST RESULT. CORRELATION TO CLINICAL HISTORY AND PRESENTATION RECOMMENDED. HAV IGM NON-REACT VARGHESE NON-REACT VARGHESE 10/13/2023 1:41 PM CDT [facility] Comment: IgM ANTI HAV NOT DETECTED. DOES NOT EXCLUDE THE POSSIBILITY OF EXPOSURE TO OR INFECTION WITH HAV. LEVELS OF IgM ANTI HAV MAY BE BELOW THE CUTOFF IN EARLY INFECTION. HEPATITIS C AB NON-REACT VARGHESE NON-REACT VARGHESE 10/13/2023 1:42 PM CDT [facility] Comment: ANTIBODIES TO HCV NOT DETECTED. DOES NOT EXCLUDE THE POSSIBILITY OF EXPOSURE TO HCV. 10/13/2023 3:24 AM CDT Tenisha Cheema MD LABORATORY Final Result [facility] [address] [place] [address], [id number] from Last 3 Months or Most Recently Relevant to Health Maintenance Insurance [employer] Advance Directives Documents on File Type Date Recorded Patient Advanced Manufacturing Consultant Expl anation Advance Directives and Living Will 05/10/2015 12:00 AM ADVANCED DIRECTIVES Advance Directives and Living Will 08/06/2013 12:00 AM ADVANCED DIRECTIVES Advance Directives and Living Will 12/28/2012 12:00 AM ADV[employer]ED DIRECTIVES * Full Code (Latest Code Status on File) Date Activated Date Inactivated Comments 10/13/2023 5:53 AM 10/14/2023 10:50 AM Care Teams Bottom Crane Operator Relationship Specialty Start Date End Date Francisco Javier Ivan MD [address] [place] [address] PCP - General FAMILY PRACTICE 06/05/24
--- OUTSIDE RECORDS SUMMARY | 2024-12-23 07:46 | XMS_ITS | Encounter Summary ---
Author Organization [facility] Address [facility] [place] [address] Care Team Providers Care Senior Mechanical Design Engineer Name Role Phone None, Provider Primary Care Provider Francisco Javier Santana MD Primary Care Provider [phone] Encounter Details Date Type Department Care Team (Late st Contact Info) Description 07/31/2018 Abstract [facility] CONVERSION [address] [place] [address] , Generic Conversion, Social History Tobacco Use [...] documented as of this encounter Care Teams Senior Mechanical Design Engineer Relationship Specialty Start Date End Date None, Provider, PCP - General UNKNOWN PHYSICIAN SPECIALTY 07/13/23 06/04/24 Francisco Javier Ivan MD [address] [address] PCP - General FAMILY PRACTICE 06/05/24 documented as of this encounter
--- NOTE | 2024-12-23 07:52 | PC.NURSE ---
Pt used call light to request to speak with RN, RN entered room and informed pt that EDP was made aware of her complaints of pain and that there were no new orders placed on her chart regarding medications. Pt stating I'm still really hurting, RN informed EDP pt still having complaints of pain
[2024-12-23] MEDS: KETOROLAC 30 MG/ML VIAL (*BKC) IV PUSH (07:56)
[2024-12-23] MEDS: LIDOCAINE 5% PATCH 1 PATCH TRANSDERM (07:58)
[2024-12-23 07:59] VITALS: BP 142/82; PULSE 70; RESP 17; O2SAT 100
[2024-12-23 08:10] VITALS: BP 145/89; PULSE 71; RESP 14; O2SAT 100
[2024-12-23 08:10] LABS: Acetaminophen < 10 ug/mL (10-30); Salicylate 3.0 mg/dL (2-20)
[2024-12-23 08:20] LABS: Cannabinoid Screen Urine Negative (Negative)
== END 2024-12-23 09:30 | disposition home or self-care (01) ==
PROVIDERS: Student in an Organized Health Care Education/Training Program; Emergency Provider Student in an Organized Health Care Education/Training Program
DX: F15.10 Other stimulant abuse, uncomplicated (principal); R07.89 Other chest pain; F17.210 Nicotine dependence, cigarettes, uncomplicated; R94.31 Abnormal electrocardiogram [ECG] [EKG]
CPT/HCPCS: 36415; 71045; 80053; 80143; 80179; 80307; 82077; 83690; 84484; 85025; 85610; 85730; 93005; 96374; 99284; A9270; J1885

== ENCOUNTER 2024-12-25 10:27 | Emergency (ER) | payer OTHER, SELFPAY ==
--- OUTSIDE RECORDS SUMMARY | 2024-09-28 04:40 | XMS_ITS ---
Author Organization [facility] Address [address] [place] [address] Care Team Providers Care Dairy Nutritionist Name Role Phone Alana Epps Primary Care Provider [phone] Ana Verma [phone] REASON FOR VISIT new patient Social History Sex Assigned At : Social History Observation Description Sex Assigned At Female Encounters Encounter Location Date Provider Diagnosis [facility] [address] [place] [address] 09/28/2024 Ana Verma Plan Of Treatment No Information Progress Notes * PADMABradsyedDOB:1980 (44 yo F)Acc No.[id number]:09/28/2024 UNLOCKED PROGRESS NOTE Patient: Jaycee AYALA Provider: ALCON Nash, COMMUNITY LIVING SPECIALIST, PMHNP-BC :1980 A ge:44 Y S ex:Female Date:09/28/2024 Address[address], [facility] Pcp:Alana Epps Subjective: * Chief Complaints: * 1 . New patient. * Medical History: Objective: * Vitals: Assessment: Plan: * Treatment: * * Electronic signature of Anton Verma on 12/25/2024 at 11:04 AM BLOOD BANK LABORATORY TECHNOLOGIST Sign off status: Pending * Provider: Peg Verma MSN, COMMUNITY LIVING SPECIALIST, PMHNP-BC Date: 0 09/28/2024 Generated for Printing/Faxing/eTransmitting on: 02/25/2024 11:04 AM BLOOD BANK LABORATORY TECHNOLOGIST
--- OUTSIDE RECORDS SUMMARY | 2024-09-29 03:20 | XMS_ITS ---
Author Organization [facility] Address [address] [place] [address] Care Team Providers Care Heavy Equipment Engine Mechanic Name Role Phone Alana Epps Primary Care Provider Leadnro Harris [phone] REASON FOR VISIT new patient Social History Sex Assigned At : Social History Observation Description Sex Assigned At Female Encounters Encounter Location Date Provider Diagnosis [address] [place] [address] 09/29/2024 Leandro Harris Plan Of Treatment No Information Progress Notes * JENNYFERJaycee SCHULZDOB:1980 (44 yo F)Acc No.[id number]:09/29/2024 UNLOCKED PROGRESS NOTE Patient: Jaycee AYALA Provider: Sasha Harris DNP, HNP-BC :1980 A ge:44 Y S ex:Female Date:09/29/2024 [address] [facility] Pcp:Alana Epps Subjective: * Chief Complaints: * 1 . New patient. * Medical History: Objective: * Vitals: Assessment: Plan: * Treatment: * * Electronic signature of Kanu Harris APRN, [id number] on 12/25/2024 at 11:05 AM LICENSING OFFICER Sign off status: Pending * Provider: Sasha Harris DNP, PMHNP-BC Date: 0 09/29/2024 Generated for Roland felder/Karina/eTransmitting on: 02/25/2024 11:05 AM LICENSING OFFICER
--- OUTSIDE RECORDS SUMMARY | 2024-10-06 02:20 | XMS_ITS ---
Author Organization [facility] Address [address] [place] [address] Care Team Providers Care Daycare Teacher Name Role Phone Alana Epps Primary Care Provider REASON FOR VISIT 1 week f/u Social History Sex Assigned At : Social History Observation Description Sex Assigned At Female Encounters Encounter Location Date Provider Diagnosis [place] [address] [facility] [place] [address] 10/06/2024 Alana Epps Plan Of Treatment No Information Progress Notes * Jaycee ROUSEDOB:1980 (44 yo F)Acc No.[id number]:10/06/2024 UNLOCKED PROGRESS NOTE Patient: Jaycee AYALA Provider: Sasha Epps MSN, MILK COLLECTOR, AUTOMOBILE SERVICE STATION MANAGER-C :1980 A ge:44 Y S ex:Female Date:10/06/2024 [facility] Subjective: * Chief Complaints: * 1 . 1 week f/u. * Medical History: Objective: * Vitals: Assessment: Plan: * Treatment: * Care Plan Details* * Electronic signature of Guera Epps APRN, [id number] on 12/25/2024 at 11:05 AM PATIENT RELATIONS LIAISON Sign off status: Pending * Provider: Sasha Epsp, MSN, MILK COLLECTOR, AUTOMOBILE SERVICE STATION MANAGER-C Date: 0 10/06/2024 Generated for Roland felder/Karina/eTransmitting on: 1 02/25/2024 11:05 AM PATIENT RELATIONS LIAISON
--- OUTSIDE RECORDS SUMMARY | 2024-12-24 14:59 | XMS_ITS | Encounter Summary ---
Author Organization [facility] Address [facility] [place] [address] Care Team Providers Care Assistant Branch Manager Name Role Phone Delisa, May PAY STATION DEPARTMENT MANAGER Primary Care Provider [phone] Reason for Referral * Imaging (Urgent) - New Request Specialty Diagnoses / Procedures Referred By Kaley muller Referred To Contact RADIOLOGY Procedures CTA CHEST Salo Dillon MD [address] [place] [address] Phone: tel: fax: Referral ID Status Reason Start Date Expiration Date V isits Requested Visits Authorized [id number] New Request 12/24/2024 12/24/2025 1 1 Reason for Visit * Reason Comments Chest Pain Encounter Details Date Type Department Care Team (Late st Contact Info) Description 12/24/2024 3:59 PM CDT - 12/24/2024 8:20 PM CDT Emergency [facility] Emergency Room [id number] [place] [address] Salo Dillon MD [address] [place] [address] Keiko Altamirano MD [address] [place] [address] Chest Pain Discharge Disposition: Home or Self Care (Routine Discharge) Social History Tobacco Use Types Packs/Day Years Used Date Smoking Tobacco: Every Day Cigarettes Smokeless Tobacco: Never Alcohol Use Standard Drinks/Week Comments Not Currently 0 (1 standard drink = 0.6 oz pur e alcohol) [facility] Utilities Answer Date Recorded In [...] any time in the past 12 m [facility], were you homeless or [...] Status No Risk Indicated 12/24/2024 4:00 PM CDT Jazmin Daley RN Active * [place] Suicide Severity Rating Scale (Screener/Recent Self-Report) Question Answer Date of Assessment Author Status 1. Wish to be (Past 1 Month) No 12/24/2024 4:00 PM CDT Filomena Daley RN Ac tive 2. Non-Specific Active Suicidal Thoughts (Past 1 Month) No 12/24/2024 4:00 PM FARAT Filomena Daley RN Ac tive 6. Suicidal Behavior (Lifetime) No 12/24/2024 4:00 PM FARAT Filomena Daley RN Ac tive documented as of this encounter Mental Status * Because of a physical, mental, or emotional condition, do you have serious difficulty concentrating, remembering, or making decisions? Answer Entry Date Author Status No 10/13/2023 6:54 AM FARAT Lina Boogie RN Active documented in this encounter Discharge Instructions * Attachments The following attachments cannot be sent through Care Everywhere. * Chest Pain (Jamaican) documented in this encounter Medications at Time [...] request Patient requests to call Julio C [phone] to obtain transport. Patient refusing to give [...] pitting edema Differential diagnosis chest pain clues [place], PE, dissection, pericarditis, myocarditis, pneumothorax, esophageal pathology, [...] taking: Reported on 12/23/2024 12/18/24 12/28/24 Billy Mayfield, DO predniSONE 50 MG tablet Take 1 tablet [...] Name: JJ SLATER Department: 85 Room: EXAM [facility] Gender: Female Manager Store: : 1980 Requested By: SALO DILLON Order Number: [id number] Reading MD: Measurements Intervals [place] Rate: 58 P: 66 NH: 123 QRS: 67 QRSD: 90 T: 61 [...] STUDIES CTA CHEST Final Result by User, [id number] (12/24 1806) [place] [id number] Examination: CTA CHEST Clinical history: Chest pain [...] XR CHEST PORTABLE Final Result by User, [id number] (12/25 1643) [facility] [address] [place] [address] Examination: XR CHEST PORTABLE Exam time: 12/24/2024 [...] rhythm Rate: 58 normal P waves, normal NH, normal QRS, normal QT, normal T waves. [...] Medical History: Diagnosis Date ??? 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 [address] Examination: CTA CHEST Clinical history: Chest pain [...] Procedure Note Everett Peterson MD - 12/24/2024 [facility] [address] [facility] [place] [address] Examination: CTA CHEST Clinical history: Chest pain [...] 4:34 PM Narrative 12/24/2024 4:41 PM CDT [facility] [address] [facility] [place] [address] Examination: XR CHEST PORTABLE Exam time: 12/24/2024 4:14 PM Clinical history: Chest pain. Comparison: 12/23/2024. Technique: AP portable upright radiograph of the chest. Findings: Normal heart size. Normal distribution of the pulmonary vasculature. No focal parenchymal lung consolidation, pleural effusion, or pneumothorax. No acute osseous findings. Surgical clips noted in the upper abdomen. Procedure Note Juan Alberto Meier MD - 12/24/2024 [facility] [address] [facility] [address] [place] [id number] Examination: XR CHEST PORTABLE Exam time: 12/24/2024 [...] (12/24/2024 4:10 PM CDT) ECG QT 390 [facility] RAD ECG QTC [facility] RAD 12/24/2024 4:10 PM CDT Narrative [facility] RAD - 12/25/2024 10:09 AM SPECTROGRAPHER [facility] Test Date: 2024-12-24 Pat Name: JJ SLATER Department: 85 Room: EXAM 303 Gender: Female Manager Store: : 1980 Requested By: SALO DILLON Order Number: [id number] Reading MD: Bubba Reyes Measurements Intervals [place] Rate: 58 P: 66 NH: 123 QRS: 67 QRSD: 90 T: 61 QT: 390 QTc: 386 Interpretive Statements SINUS BRADYCARDIA Compared to ECG 12/23/2024 14:40:13 Sinus rhythm no longer present TROGRAPHER Procedure Note Bubba Reyes MD - 12/25/2024 [facility] Test Date: 2024-12-24 Pat Name: JJ SLATER Department: 85 Room: EXAM 303 Gender: Female Manager Store: : 1980 Requested By: SALO DILLON Order Number: [id number] Reading MD: Bubba Reyes Measurements Intervals [place] Rate: 58 P: 66 NH: 123 QRS: 67 QRSD: 90 T: 61 QT: 390 QTc: 386 Interpretive Statements SINUS BRADYCARDIA Compared to ECG 12/23/2024 14:40:13 Sinus rhythm no longer present TROGRAPHER Salo Dillon MD ECG ORDERABLES Final Result Performing Organization Address [facility]/ZIP Co de Phone Number [facility]) RAD * PROTIME/INR, VENOUS (12/24/2024 4:10 PM CDT) PROTIME 12.3 9.1 - 12.4 SEC 12/24/2024 4:46 PM CDT [facility] INR 1.1 12/24/2024 4:46 PM CDT [facility] Comment: Recommend INR ranges for Oral Anticoagulant Therapy: Mechanical Cardiac Values 2.5-3.5 All others indication 2.0-3.0 12/24/2024 4:10 PM CDT Salo Dillon MD LABORATORY Final Result [facility] [address] [place] [address], * LIPASE (12/24/2024 4:10 PM CDT) LIPASE 63 16 - 77 UNITS/L 12/24/2024 4:35 PM CDT [facility] 12/24/2024 4:10 PM CDT us Salo Dillon MD LABORATORY Final Result [facility] [address] [place] [address], [place] [phone] * TROPONIN, QUANT (12/24/2024 4:10 PM CDT) Pathologist [facility] TROPONIN I HIGH SENSITIVITY 6 0 - 50 ng/L 12/24/2024 4:38 PM CDT [facility] Comment: HIGH DOSES OF BIOTIN, TROPONIN-SPECIFIC AUTOANTIBODIES, AND ANTIBODY THERAPY CONTAINING HAMA MAY INTERFERE WITH THIS TEST RESULT. CORRELATION TO CLINICAL HISTORY AND PRESENTATION RECOMMENDED. 12/24/2024 4:10 PM CDT us Salo Dillon MD LABORATORY Final Result Performing Organization Address [facility]/ZIP Co de Phone Number [facility] [address] [place] [address], [place] [phone] * (ABNORMAL) COMPREHENSIVE METABOLIC PANEL (12/24/2024 4:10 PM CDT) [facility] GLUCOSE 84 70 - 99 MG/DL 12/24/2024 4:35 PM CDT [facility] BUN 21(H) 7 - 18 MG/DL 12/24/2024 4:35 PM CDT [facility] CREATININE S/P/B 0.78 0.55 - 1.02 MG/DL 12/24/2024 4:35 PM CDT [facility] SODIUM S/P/B 139 136 - 145 MMOL/L 12/24/2024 4:35 PM CDT [facility] POTASSIUM S/P/B 4.0 3.5 - 5.1 MMOL/L 12/24/2024 4:35 PM CDT [facility] CHLORIDE S/P/B 103 100 - 108 MMOL/L 12/24/2024 4:35 PM [facility] CO2 31.8 21 - 32 MMOL/L 12/24/2024 4:35 PM [facility] CALCIUM S/P/B 8.5 8.5 - 10.1 MG/DL 12/24/2024 4:35 PM [facility] BILIRUBIN TOTAL S/P/B 0.5 0.2 - 1.2 MG/DL 12/24/2024 4:35 PM [facility] TOTAL PROTEIN S/P/B 6.4 6.4 - 8.2 G/DL 12/24/2024 4:35 PM [facility] ALBUMIN S/P/B 3.4 3.4 - 5.0 G/DL 12/24/2024 4:35 PM [facility] AST 11(L) 15 - 37 U/L 12/24/2024 4:35 PM [facility] ALT 12(L) 14 - 55 U/L 12/24/2024 4:35 PM [facility] ALKALINE PHOSPHATASE S/P/B 71 50 - 136 U/L 12/24/2024 4:35 PM [facility] ANION GAP 4.2(L) 5 - 15 MMOL/L 12/24/2024 4:35 PM [facility] BUN CREATININE RATIO 26.9(H) 6 - 26 12/24/2024 4:35 PM [facility] A/G RATIO 1.1 1.0 - 2.0 RATIO 12/24/2024 4:35 PM [facility] GFR ESTIMATE >90 >90 ML/MIN/1.7 3 M2 12/24/2024 4:35 PM [facility] Comment: NOTE: eGFR is not calculated for patients <18 years of age. This is an estimated GFR calculation using the new CKD EPI creatinine equation without race and so does not require a correction factor for race. This estimated GFR should not be used for calculating drug doses. 12/24/2024 4:10 PM CDT Salo Dillon MD LABORATORY Final Result [facility] [address] [place] [address], * (ABNORMAL) CBC W/DIFF AUTOMATED (12/24/2024 4:10 PM CDT) WBC 5.15 4.4 - 11.0 x10'3/uL 12/24/2024 4:23 PM CDT [facility] RBC 3.80(L) 4.50 - 5.10 x10'6/uL 12/24/2024 4:23 PM CDT [facility] HGB 11.6(L) 12.3 - 15.3 G/DL 12/24/2024 4:23 PM CDT [facility] HCT 35.3(L) 35.9 - 44.6 % 12/24/2024 4:23 PM CDT [facility] MCV 92.9 80.0 - 96.0 FL 12/24/2024 4:23 PM CDT [facility] MCH 30.5 25.3 - 30.9 PG 12/24/2024 4:23 PM CDT [facility] MCHC 32.9 31.0 - 34.1 G/DL 12/24/2024 4:23 PM CDT [facility] RDW 13.2 12.4 - 15.1 % 12/24/2024 4:23 PM CDT [facility] PLT 337 151 - 353 x10'3/uL 12/24/2024 4:23 PM CDT [facility] MPV 9.6 9.6 - 12.0 FL 12/24/2024 4:23 PM CDT [facility] RBC MORPHOLOGY NORMAL 12/24/2024 4:23 PM CDT [facility] PLT MORPH. NORMAL 12/24/2024 4:23 PM CDT [facility] WBC MORPHOLOGY NORMAL 12/24/2024 4:23 PM CDT [facility] LYMPHOCYTES % 29.5 15.8 - 45.0 % 12/24/2024 4:23 PM CDT [facility] NEUTROPHILS % 59.4 42.1 - 71.9 % 12/24/2024 4:23 PM CDT [facility] MONOCYTES % 8.7 5.7 - 12.5 % 12/24/2024 4:23 PM CDT [facility] EOSINOPHILS 1.2 0.0 - 5.6 % 12/24/2024 4:23 PM CDT [facility] BASOPHILS 1.0 0.0 - 1.3 % 12/24/2024 4:23 PM CDT [facility] ABS. NEUTROPHILS 3.06 1.40 - 6.00 x10'3/uL 12/24/2024 4:23 PM CDT [facility] IMMATURE GRANS % 0.2 0.0 - 0.5 % 12/24/2024 4:23 PM CDT [facility] ABS. LYMPHOCYTES 1.52 0.80 - 4.70 x10'3/uL 12/24/2024 4:23 PM CDT [facility] 12/24/2024 4:10 PM CDT Salo Dillon MD LABORATORY Final Result [facility] [address] [place] [address], documented in this encounter Visit Diagnoses Diagnosis [...] RTR) documented in this encounter Care Teams Assistant Branch Manager Relationship Specialty Start Date End Date May, [address] [place] [address] PCP - General Nurse Practitioner Family 12/23/24 documented as of this encounter
[2024-12-25 10:35] VITALS: BP 122/79; PULSE 87; RESP 20; TEMP 36.4; O2SAT 100
--- OUTSIDE RECORDS SUMMARY | 2024-12-25 11:04 | XMS_ITS | Patient Health Record ---
Author Organization [facility] Address [address] [place] [address] Care Team Providers Care Independent Video Producer Name Role Phone Alana Epps Primary Care Provider Kasey Ny Unavailable [phone] Ava Hernandez Unavailable [phone] Leandro Harris Unavailable [phone] Ana Vrema Unavailable [phone] Braxton Costa Unavailable [phone] Allergies Allergen (clinical drug ingredient) Drug/Non Drug Allergy documented on EMR Reaction Allergy Type Onset Date Status Penicillin rash Drug Allergy Active Results Component Value Reference Range Notes QuantiFERON-TB Gold Plus (05 5540) Reviewed date:09/22/2024 02:30:29 PM Interpretation:Normal Performing Lab:[facility], [address] [place] [address], Phone - [phone], [facility] Notes/Report: QuantiFERON Incubation Incubation performed. QuantiFERON-TB Gold [...] et* Reviewed date:09/21/2024 02:19:40 PM Interpretation:Normal Performing Lab:[facility] [place], [address] [facility], [place], Phone - [phone], [facility] Notes/Report: WBC 5.9 3.4-10.8 x10E3/uL RBC 4.83 [...] Panel* Reviewed date:09/21/2024 02:19:40 PM Interpretation:Normal [facility]forming [facility] [place], [address], Phone - [phone], [facility]Report: Glucose 73 70-99 mg/dL BUN [...] Screen *HIV 1, 2 Ab, p24 Ag (839436) Reviewed date:09/21/2024 02:19:40 PM Interpretation:Normal [facility]forming [facility], [address], Phone - [phone], [facility] Notes/Report: HIV Ab/p24 Ag Screen Non Reactive [...] Risk Notes Problem Benign paroxysmal positional vertigo (186574793) Benign paroxysmal vertigo, bilateral (H81.13) Active confirmed Problem Thyroid nodule (379446638) Thyroid nodule (E04.1) Active confirmed Problem Systolic murmur (68104099) Systolic murmur (I38) Active confirmed Problem Bipolar disorder (59710475) Bipolar 1 disorder, depressed (F31.9) Active confirmed Problem Stimulant abuse (595183196) Methamphetamine use disorder, mild, 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 confirmed Problem Opioid use disorder (5093919452) Opioid use disorder (F11.99) Active confirmed Problem Tobacco user (628987529) Nicotine dependence with current use (F17.200) Active confirmed Vital Signs Heart Rate 75 /min 11/15/2024 Temperature 97.9 degrees Fahrenheit 10/21/2024 Respiratory Rate 16 /min 11/15/2024 Blood pressure diastolic 74 mm Hg 11/15/2024 Oximetry 98 % 11/15/2024 Height 61 in 11/15/2024 Blood pressure systolic 110 mm Hg 11/15/2024 Weight 112.6 lbs 11/15/2024 BMI 21.27 kg/m2 11/15/2024 Encounters Encounter Location Date Provider Diagnosis [facility] [place] [address] 09/20/2024 Alana Epps Methamphetamine use disorder, mild, in early remission F15.10 ; Opioid use disorder F11.99 ; Routine general medical examination at a health care facility Z00.00 and Nicotine dependence with current use F17.[address] [place] [address] 09/20/2024 Ava Hernandez Methamphetamine use disorder, mild, in early remission F15.10 and Bipolar 1 disorder, depressed F31.[address] [place] [address] 09/21/2024 Kasey Ny Bipolar 1 disorder, depressed F31.9 [place] [address] [facility] [place] [address] 09/26/2024 Braxton Costa Thyroid nodule E04.1 ; Benign paroxysmal vertigo, bilateral H81.13 ; Systolic murmur I38 and Over weight E66.3 [place] [address] [place] [address] 10/21/2024 Alana Epps Opioid use disorder F11.99 [facility] [address] [place] [address] 11/15/2024 Alana Epps Opioid use disorder F11.99 [place] [address] [place] [address] 09/19/2024 Alana Epps [facility] [address] [facility] [place] [address] 09/20/2024 Alana Epps [place] [address] [address] [place] [place] [address] 09/29/2024 Alana Epps Opioid use disorder F11.99 [facility] [address] [place] [address] 10/13/2024 Alana Epps Assessments Encounter Date Diagnosis [...] or be administered own oral medications per [place] protocols. Provided informed consent with understanding of [...] SUPR Programs: Based on an evaluation of [facility] Patient Placement Criteria, a recommendation for [...] self-administe r their own oral medications per [place] Protocol. Plan Of Treatment Future Test Test Name Order Date Echo doppler exam 09/26/2024 Ultrasound : Thyroid 09/26/2024 Insurance Providers Payer Name Payer Address Payer Phone Subscriber Number Group Number Insured Name Patient Relationship to Insured Coverage Start Date Coverage End Date [employer] [address] [place] [address] [id number] Jaycee Rouse Self - patient is the insured 3 [employer] [address] [place] [address] [id number] Jaycee Rouse Self - patient is the insured 5 [employer] [address] [place] [address] [id number] Jaycee Rouse Self - patient is the insured 5 Medical (General) History Medical History History ICD Code Manic Depression Surgical History Surgery Date(Month/Year) 3 c-sections right hand has pins gall bladder removed Hospitalization History Reason Date(Month/Year) gateway, multiple times between 2023- 5 06/2024
--- OUTSIDE RECORDS SUMMARY | 2024-12-25 11:04 | XMS_ITS | Clinical Summary ---
Author Organization [facility] Address [address] [place] [address] Care Team Providers Care Asbestos Hazard Abatement Worker Name Role Phone Christofer Stewart MD [...] 1.7 cm about 1.5 years ago in [facility] - obtain US of thyroid, [...] CDT - 12/17/2024 8:46 PM CDT Emergency [facility] Emergency Department [facility] [place] [address] Discharge Disposition: Left without being seen 10/21/2024 Telephone [facility] Primary Care at [place] [address] [facility] [address] [place] [address] Christofer Stewart MD 10/17/2024 1:35 AM CDT - 10/17/2024 2:55 AM CDT Emergency [facility] Emergency Department [address] [place] [address] Jamarcus Irvin MD Kanumuri, Raghu, MD Chest pain, unspecified type (Primary Dx) Discharge Disposition: Discharge to home or self care from Last 3 Months Surgical History Surgery Date Site/Laterality Comments HAND SURGERY Social History Tobacco Use Types Packs/Day Years Used Date Smoking Tobacco: Every Day Cigarettes 1.3 12.3 Started: 09/23/2012 Tobacco Cessation:Ready to Q uit: [...] on file 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 chest pain Views: 2 COMPARISON: 10/17/2024 Procedure Note Rick Grijalva MD - 12/17/2024 MEDICAL RECORDS NUMBER: [id number] PROCEDURE: XR CHEST PA LATERAL 2 VIEWS [...] Data last revised 2020. Testing performed by: [address] [address] Blood 12/17/2024 8:10 PM CDT 12/17/2024 8:14 PM CDT Hannah Muro Jr., MD LAB BLOOD ORDERABLES Fi nal Result Performing Organization Address City/[facility]/ZIP Co de Phone Number RAUL [address] [place] [address] * eGFR (12/17/2024 8:10 PM CDT) eGFR [...] was last reviewed 2020. Testing performed by: [facility], [address] [place] [address]., [address] Blood 12/17/2024 8:10 PM CDT 12/17/2024 8:14 PM CDT us Hannah Muro Jr., MD LAB BLOOD ORDERABLES Fi nal Result Performing Organization Address City/[facility]/ZIP Co de Phone Number RAUL [address] [place] [address] * Differential, auto (12/17/2024 8:10 PM CDT) [facility] Neutrophil abs 4.44 1.50 - 6.50 K/cumm Comment:Testing performed by : [address] [address] Imm gran abs 0.01 0.00 - 0.10 K/cumm [facility] Comment:Testing performed by : [address] [address] Lymphocyte abs 2.64 0.80 - 3.30 K/cumm [facility] Comment:Testing performed by : [address] [address] Monocyte abs 0.68 0.20 - 0.80 K/cumm [facility] Comment:Testing performed by : [address] [address] Eosinophil abs 0.10 0.00 - 0.50 K/cumm [facility] Comment:Testing performed by : [address] [address] Basophil abs 0.04 0.00 - 0.10 K/cumm [facility] Comment:Testing performed by : [address] [address] Neutrophil pct 56.1 % [facility] Comment: Interpretive Data Percent cell count reference ranges are not reported, since discordance with absolute values may lead to misinterpretation of CBC data. Current Interpretive Data was last revised on 2017. Testing performed by: [address] [address] Imm gran pct 0.1 % [facility] Comment: Interpretive Data Percent cell count reference ranges are not reported, since discordance with absolute values may lead to misinterpretation of CBC data. Current Interpretive Data was last revised on 2017. Testing performed by: [address] [address] Lymphocyte pct 33.4 % [facility] Comment: Interpretive Data Percent cell count reference ranges are not reported, since discordance with absolute values may lead to misinterpretation of CBC data. Current Interpretive Data was last revised on 2017. Testing performed by: [address] [address] Monocyte pct 8.6 % [facility] Comment: Interpretive Data Percent cell count reference ranges are not reported, since discordance with absolute values may lead to misinterpretation of CBC data. Current Interpretive Data was last revised on 2017. Testing performed by: [address] [address] Eosinophil pct 1.3 % RAUL Comment: Interpretive Data Percent cell count reference ranges are not reported, since discordance with absolute values may lead to misinterpretation of CBC data. Current Interpretive Data was last revised on 2017. Testing performed by: [address] [address] Basophil pct 0.5 % RAUL Comment: Interpretive Data Percent cell count reference ranges are not reported, since discordance with absolute values may lead to misinterpretation of CBC data. Current Interpretive Data was last revised on 2017. Testing performed by: [address] [address] Blood 12/17/2024 8:10 PM CDT 12/17/2024 8:14 PM CDT us Hannah Muro Jr., MD LAB BLOOD ORDERABLES nal Result [facility] [address] [facility] Department [place] [address] * (ABNORMAL) CBC with auto differential (12/17/2024 8:10 PM CDT) WBC 7.91 3.80 - 9.90 K/cumm Comment:Testing performed by : [address] [address] Hgb 11.2(L) 11.9 - 15.5 g/dL RAUL COLON Comment:Testing performed by : [address] [address] Hct 32.7(L) 35.6 - 45.5 % RAUL COLON Comment:Testing performed by : [address] [address] Plt 367 150 - 400 K/cumm [facility]UL [facility] Comment:Testing performed by : [address] [address] MPV 9.4 9.1 - 12.3 fL RAUL Comment:Testing performed by : [address] [address] RBC 3.68(L) 3.90 - 5.20 M/cumm RAUL [facility]ON Comment:Testing performed by : [address] [address] MCV 88.9 81.3 - 96.4 fL RAUL Comment:Testing performed by : [address] [address] MCH 30.4 27.1 - 33.3 pg RAUL Comment:Testing performed by : [address] [address] MCHC 34.3 32.3 - 35.7 g/dL RAUL Comment:Testing performed by : [address] [address] RDW CV 12.9 11.1 - 14.9 % RAUL Comment:Testing performed by : [address] [address] RDW SD 42.3 35.7 - 48.1 fL RAUL Comment:Testing performed by : [address] [address] NRBC abs 0.00 0.00 - 0.01 K/cumm RAUL Comment:Testing performed by : [address] [address] Blood Venous blood specimen / Unknown 12/17/2024 8:10 PM CDT 12/17/2024 8:14 PM CDT us Hannah Muro Jr., MD LAB BLOOD ORDERABLES Fi nal Result RAUL [address] [facility] Department [place] [address] * (ABNORMAL) Comprehensive metabolic panel (12/17/2024 8:10 PM CDT) Sodium 139 135 - 145 mmol/L Comment:Testing performed by : [address], [place]., [address] Potassium, pl 4.0 3.3 - 4.9 mmol/L RAUL Comment:Testing performed by : [address], [place]., [address] Chloride 104 97 - 110 mmol/L RAUL Comment:Testing performed by : [address], [place]., [address] CO2 26 22 - 32 mmol/L RAUL Comment:Testing performed by : [address], [place]., [address] Anion gap 9 2 - 15 mmol/L RAUL Comment:Testing performed by : [address], [place]., [address] BUN 17 6 - 25 mg/dL RAUL Comment:Testing performed by : [address], [place]., [address] Creatinine 0.80 0.60 - 1.10 mg/dL RAUL Comment:Testing performed by : [address], [place]., [address] Glucose 103 70 - 199 mg/dL [facility] Comment: Interpretive Data Fasting glucose >/= 126 [...] was last revised 2022. Testing performed by: [address] [address] Calcium 9.1 8.5 - 10.3 mg/dL RAUL Comment:Testing performed by : [address], [place]., [address] Bilirubin, total 0.2 0.1 - 1.2 mg/dL RAUL Comment:Testing performed by : [address] [address] Protein, pl 6.3(L) 6.5 - 8.5 g/dL RAUL Comment:Testing performed by : [address] [address] Albumin 3.9 3.5 - 5.0 g/dL RAUL COLON Comment:Testing performed by : [address], [address] Alk phos 69 40 - 130 Units/L RAUL Comment:Testing performed by : [address] [address] ALT 10 7 - 45 Units/L RAUL Comment:Testing performed by : [address], [address] AST 16 10 - 45 Units/L RAUL Comment:Testing performed by : [address], [address] Blood 12/17/2024 8:10 PM CDT 12/17/2024 8:14 PM CDT us Hannah Muro Jr., MD LAB BLOOD ORDERABLES Fi nal Result RAUL [address] [facility] Department of Laboratories [place], [place] [id number] * ECG 12 lead (12/17/2024 8:02 PM CDT) Ventricular Rate EKG/Min 67 BPM [facility] Atrial Rate 67 BPM [facility] WI-Interval (MSEC) 120 ms [facility] QRS-Interval (MSEC) 94 ms [facility] QT-Interval (MSEC) 392 ms [facility] QTc 414 ms [facility] P Marion 65 degrees [facility] R [place] 60 degrees [facility] T [place] 58 degrees [facility] Diagnosis Normal sinus rhythm Possible Left atrial enlargement Borderline ECG No previous ECGs available Confirmed by MD KARI, HANNAH ([id number]) on 12/18/2024 10:03:54 AM [facility] 12/17/2024 8:02 PM CDT 12/18/2024 10:03 AM CDT us Hannah Muro Jr., MD ECG ORDERABLES Final R esult [facility] * XR Chest Pa Lateral 2 Vw (10/17/2024 2:20 AM CDT) Anatomical Region Laterality Modality Body, Chest N/A Computed Radiogr aphy 10/17/2024 2:35 AM CDT Narrative 10/17/2024 2:36 AM CDT EXAM DESCRIPTION: XR CHEST PA LATERAL 2 VIEWS REASON FOR STUDY: cough Pt has flight of ideas and multiple medical complaints arrived via [facility] discharged from [facility] this AM. Smoker TECHNIQUE: Frontal and lateral [...] Ml Foster M.D. SN: SN Report ID: [id number] Reading Location: [id number] Procedure Note Ml Foster MD - 10/17/2024 EXAM DESCRIPTION: XR CHEST PA LATERAL 2 VIEWS REASON FOR STUDY: cough Pt has flight of [place] [facility] [place] [facility]. Smoker TECHNIQUE: Frontal and lateral [...] Ml Foster M.D. SN: SN Report ID: [id number] Reading Location: [id number] us Tre Roche MD IMG XR PROCEDURES Final Result * ECG 12 lead (10/17/2024 12:07 AM CDT) 10/17/2024 12:0 7 AM CDT Narrative [facility] - 10/17/2024 6:47 AM CDT Vent Rate: 84 bpm RR Interval: 709 msec WI Interval: 111 msec QRS Duration: 96 msec QT Interval: 362 msec QTC Interval: 403 msec P-R-T Marion: 80 - 73 - 64 degrees IMPRESSION: Baseline artifact, probable SINUS RHYTHM WITH SHORT WI INTERVAL LEFT ATRIAL ENLARGEMENT [-0.15mV P WAVE IN V1/V2] POSSIBLE LEFT VENTRICULAR HYPERTROPHY [VOLTAGE CRITERIA PLUS LAE OR QRS WIDENING] ABNORMAL ECG NO CHANGE FROM PREVIOUS TRACING NOTED Electronically Signed By: Francois Casarez MD us Jamarcus Irvin MD ECG ORDERABLES Final Result [facility] from Last 3 Months Insurance [facility] Advance Directives For more information, please contact: [phone] * Full Code (Latest Code Status on File) Date Activated Date Inactivated Comments 10/20/2023 12:17 PM 10/20/2023 8:58 PM Care Teams Asbestos Hazard Abatement Worker Relationship Specialty Start Date End Date Christofer Stewart MD PCP - General Family Medicine 06/23/23
--- OUTSIDE RECORDS SUMMARY | 2024-12-25 11:05 | XMS_ITS | Encounter Summary ---
Author Organization [facility] Address [facility] [place] [address] Care Team Providers Care Hvac Estimator Name Role Phone Delisa, May VETERINARY MILK SPECIALIST Primary Care Provider [phone] Encounter Details Date Type Department Care Team (Latest Contact Info) Description 12/24/2024 Travel Social History Tobacco Use Types Packs/Day Years Used Date Smoking Tobacco: Every Day Cigarettes Smokeless Tobacco: Never Alcohol Use Standard Drinks/Week Comments Not Currently 0 (1 standard drink = 0.6 oz pur e alcohol) [facility] Utilities Answer Date Recorded In the past 12 months has [employer], gas, oil, or water [employer] threatened to shut off services in your [...] Status No Risk Indicated 12/24/2024 4:00 PM Jazmin Joshua RN Active * [place] Suicide Severity Rating Scale (Screener/Recent Self-Report) Question [...] on filedocumented in this encounter Care Teams Hvac Estimator Relationship Specialty Start Date End Date DelisaMay, [address] [place] [address] PCP - General Nurse Practitioner Family 12/23/24 documented as of this encounter
--- OUTSIDE RECORDS SUMMARY | 2024-12-25 11:05 | XMS_ITS | Encounter Summary ---
Author Organization [facility] Address [facility] [place] [address] Care Team Providers Care Adventure Challenge Instructor Name Role Phone None, Provider Primary Care Provider Diana Dunnemay [facility] Primary Care Provider [phone] Encounter Details Date Type Department Care Team (Late st Contact Info) Description 07/31/2018 Abstract [facility] CONVERSION [address] [place] [address] , Generic Conversion, Social History Tobacco Use [...] documented as of this encounter Care Teams Adventure Challenge Instructor Relationship Specialty Start Date End Date None, Provider, PCP - General UNKNOWN PHYSICIAN SPECIALTY 07/13/23 DelisaMay, NEUROLOGY STROKE PHYSICIAN [address] [place] [address] PCP - General Nurse Practitioner Family 12/23/24 documented as of this encounter
--- OUTSIDE RECORDS SUMMARY | 2024-12-25 11:05 | XMS_ITS | Clinical Summary ---
Author Organization [facility] Address [address], [address] [address] Phone Care Team Providers Care Special Effects Designer Name Role Phone DelisaMay N MEDICAL TRANSCRIPTIONIST, COMMAND CENTER OFFICER Primary Care Provider [phone] Allergies Active Allergy Reactions Criticality Noted Date [...] Encounters Date Type Department Care Team Description 12/23/2024 Nurse Triage [facility] [address] [place] [phone] Wendie Hercules, MEDICAL TRANSCRIPTIONIST, COMMAND CENTER OFFICER Appointment; Chest Pain 12/19/2024 10:31 AM CDT - 12/19/2024 1:03 PM CDT Emergency [facility] Emergency [address] [place] [address] Willis Lee, PAC Chest pain Discharge Disposition: Discharged to home or Selfcare 12/19/2024 Travel 12/05/2024 Results Follow-Up [facility] [address] [place] [address] Wendie Hercules, LUIS FELIPE, COMMAND CENTER OFFICER US THYROID, VITAMIN D, 25 HYDROXY TOTAL, VITAMIN B12, Additional followed-up results: 5 12/02/2024 10:49 AM CDT - 12/02/2024 11:59 PM CDT Hospital Encounter [facility] Ultrasound [address] [place] [address] Wendie Hercules, MEDICAL TRANSCRIPTIONIST, COMMAND CENTER OFFICER Discharge Disposition: Discharged to home or Selfcare 12/02/2024 Travel 11/21/2024 2:30 PM CDT Office Visit [facility] [address] [place] [address] Wendie Hercules, MEDICAL TRANSCRIPTIONIST, COMMAND CENTER OFFICER Depression with anxiety (Primary Dx); At risk for sexually transmitted disease due to unprotected sex Discharge Disposition: Discharged to home or Selfcare 11/21/2024 Travel 11/17/2024 9:39 AM CDT - 11/17/2024 11:17 AM CDT Emergency [facility] Emergency [address] [place] [address] Hugh Palencia, DO Viral syndrome Discharge Disposition: Discharged to home or Selfcare 11/17/2024 Telephone [facility] [address] [place] [address] Oehl, Wendie Pizarro APRN, CNP 11/17/2024 Nurse Triage [facility] [address] [place] [address] Wendie Hercules APRN, CNP Breathing Problem 11/16/2024 2:15 PM CDT Office Visit [facility] [address] [place] [address] Óscar Doss APRN, ELVIA Chest discomfort (Primary Dx) Discharge Disposition: Discharged to home or Selfcare 11/16/2024 Documentation Only [facility] Mammography [address] [place] [address] Wendie Hercules APRN, CNP 11/15/2024 10:03 PM CDT - 11/16/2024 12:06 AM CDT Emergency [facility] Emergency 1 [place] [address] Billy Cagle MD Chest pain, unspecified type Discharge Disposition: Discharged to home or Selfcare 11/15/2024 Travel 11/11/2024 Telephone [facility] [address] [place] [address] Wendie Hercules APRN, ELVIA Need Order 10/21/2024 2:00 PM CDT Office Visit [facility] [address] [place] [address] Wendie Hercules APRN, ELVIA Encounter for preventative adult health care exam with abnormal findings (Primary Dx); History of methadone use; Anxiety and depression; Nodule of left lobe of thyroid gland; Vaginal pain; Encounter for screening mammogram for breast cancer Discharge Disposition: Discharged to home or Selfcare 10/21/2024 Travel 10/21/2024 Telephone [facility] [address] [place] [address] Provider, None New Patient from Last 3 [...] st Contact Info) Description 01/03/2025 2:30 PM GARMENT EXAMINER Office Visit [facility] [address] [place] [address] Delisa, Wendie N, MEDICAL TRANSCRIPTIONIST, COMMAND CENTER OFFICER [facility] [place] [address] [place] [address] Health Maintenance Due Date Last Done Comments Mammogram 1982 Pap Smear 2003 Human Papillomavirus (HPV) Immunization (1 - Risk 3-dose SCDM series) 2009 Cervical Cancer Screening [...] of4 resultswithin the time period is included. [facility] TROPONIN I, HIGH SENSITIVITY- OLIV[facility] 2.9 <=14.0 ng/L 12/19/2024 1:10 PM CDT [facility] Comment: High-sensitivity troponin I results are reported in ng/L making the result appear to be 1,000 times higher than the contemporary troponin I value which is reported in ng/ml. Results from [facility]. Blood Venipuncture / Unknown 12/19/2024 12:33 PM CDT 12/19/2024 12:44 PM CDT us Willis Lee PAC CHEMISTRY ORDERABLES Final Result [facility] [address] [place] [address] * NT-proBNP (12/19/2024 10:44 AM CDT) [facility] NT PROBNP 177.3 <450.0 pg/mL 12/19/2024 11:17 AM CDT [facility] Comment: AGE pg/mL INTERPRETATION All [...] CDT 12/19/2024 10:50 AM CDT us Willis Lee PAC CHEMISTRY ORDERABLES Final Result [facility] [address] [place] [address] * (ABNORMAL) CBC with Auto Differential (12/19/2024 10:44 AM CDT) Only the most recent of4 resultswithin the time period is included. WBC 5.71 4.00 - 12.00 10(3)/mcL 12/19/2024 10:[address] [facility] RBC 4.01 3.80 - 5.30 10(6)/mcL 12/19/2024 10:52 AM CDT [facility] HEMOGLOBIN (HGB) 12.2 12.0 - 15.8 g/dL 12/19/2024 10:52 AM CDT [facility] HEMATOCRIT (HCT) 37.7 36.0 - 47.0 % 12/19/2024 10:[address] [facility] MCV 94.0 82.0 - 96.0 fL 12/19/2024 10:52 AM CDT [facility] MCH 30.4 26.0 - 34.0 pg 12/19/2024 10:52 AM CDT [facility] MCHC 32.4 31.0 - 36.0 g/dL 12/19/2024 10:52 AM CDT [facility] PLATELET COUNT 396 140 - 440 10(3)/mcL 12/19/2024 10:52 AM CDT [facility] RDW 12.7 11.8 - 15.5 % 12/19/2024 10:52 AM CDT [facility] MPV 9.5(L) 9.7 - 12.4 fL 12/19/2024 10:52 AM CDT [facility] NEUTROPHILS 70.2 47.0 - 73.0 % 12/19/2024 10:52 AM CDT [facility] LYMPHOCYTES 20.1 18.0 - 42.0 % 12/19/2024 10:52 AM CDT [facility] MONOCYTES 8.1 4.0 - 12.0 % 12/19/2024 10:52 AM CDT [facility] EOSINOPHILS 0.7 0.0 - 5.0 % 12/19/2024 10:52 AM CDT [facility] BASOPHILS 0.7 0.0 - 1.0 % 12/19/2024 10:52 AM CDT [facility] IMMATURE GRANULOCYTE 0.2 0.0 - 0.4 % 12/19/2024 10:52 AM CDT [facility] ABSOLUTE NEUTROPHILS 4.01 1.60 - 7.70 10(3)/[facility] 12/19/2024 10:52 AM CDT [facility] ABSOLUTE LYMPHOCYTES 1.15(L) 1.30 - 3.20 10(3)/[facility] 12/19/2024 10:52 AM CDT [facility] ABSOLUTE MONOCYTES 0.46 0.20 - 1.00 10(3)/[facility] 12/19/2024 10:52 AM CDT [facility] ABSOLUTE EOSINOPHIL 0.04 0.00 - 0.40 10(3)/[facility] 12/19/2024 10:52 AM CDT [facility] ABSOLUTE BASOPHILS 0.04 0.00 - 0.10 10(3)/[facility] 12/19/2024 10:52 AM CDT [facility] ABSOLUTE IMMATURE GRANULOCYTE 0.01 0.00 - 0.03 10 (3) mcL. 12/19/2024 10:52 AM CDT [facility] NRBC PER 100 WBC 0 12/20/19 10:52 AM CDT [facility] Blood Venipuncture / Unknown 12/19/2024 10:44 AM CDT 12/19/2024 10:50 AM CDT Willis Lee PAC HEMATOLOGY ORDERABLE S Final Result [facility] [address] [place] [address] * Magnesium (12/19/2024 10:44 AM CDT) Only the most recent of2 resultswithin the time period is included. MAGNESIUM 2.1 1.6 - 2.6 mg/dL 12/19/2024 11:13 AM CDT [facility] Blood Venipuncture / Unknown 12/19/2024 10:44 AM CDT 12/19/2024 10:50 AM CDT Willis Lee PAC CHEMISTRY ORDERABLES Final Result [facility] [address] [place] [address] * Ethyl Alcohol(Ethanol) KVP533 (12/19/2024 10:44 AM CDT) ETHANOL <10 <10 mg/dL 12/19/2024 11:13 AM CDT [facility] Blood Venipuncture / Unknown 12/19/2024 10:44 AM CDT 12/19/2024 10:50 AM CDT Narrative [facility] - 12/19/2024 11:13 AM CDT FOR MEDICAL USE ONLY Willis Lee PAC CHEMISTRY ORDERABLES Final Result [facility] [address] [place] [address] * CMP (12/19/2024 10:44 AM CDT) Only the most recent of4 resultswithin the time period is included. SODIUM 140 136 - 145 mmol/L 12/19/2024 11:13 AM CDT [facility] POTASSIUM 4.0 3.5 - 5.1 mmol/L 12/19/2024 11:13 AM CDT [facility] CHLORIDE 104 98 - 107 mmol/L 12/19/2024 11:13 AM CDT [facility] CO2, VENOUS 26 22 - 30 mmol/L 12/19/2024 11:13 AM CDT [facility] ANION GAP 14.0 <18.0 mmol/L 12/19/2024 11:13 AM CDT [facility] GLUCOSE 88 70 - 99 mg/dL 12/19/2024 11:13 AM CDT [facility] BUN 9 5 - 18 mg/dL 12/19/2024 11:[address] [facility] CREATININE, BLOOD 0.74 0.60 - 1.00 mg/dL 12/19/2024 11:[address] [facility] BUN/CREATININE RATIO 12 12 - 20 ratio 12/19/2024 11:[address] [facility] TOTAL PROTEIN 7.4 6.0 - 8.0 g/dL 12/19/2024 11:13 AM CDT [facility] ALBUMIN 4.4 3.5 - 5.0 g/dL 12/19/2024 11:[address] [facility] A/G RATIO 1.5 1.0 - 2.2 12/19/2024 11:13 AM CDT [facility] CALCIUM 9.4 8.7 - 10.5 mg/dL 12/19/2024 11:[address] [facility] T BILI 0.5 0.2 - 1.2 mg/dL 12/19/2024 11:13 AM CDT [facility] SGOT (AST) 24 <43 U/L 12/19/2024 11:13 AM CDT [facility] SGPT (ALT) 17 <56 U/L 12/19/2024 11:13 AM CDT [facility] ALKALINE PHOSPHATASE 74 40 - 150 U/L 12/19/2024 11:13 AM CDT [facility] GFR, ESTIMATED >60 >=60 12/19/2024 11:13 AM CDT [facility] Comment: Creatinine Clearance is the preferred criteria for selecting drug dose adjustments in renally impaired patients. The GFR is provided as additional pertinent clinical information. GFR is reported in mL/min/1.73 sq m. Calculation based on the 2020 Chronic Kidney Disease Epidemiology Collaboration (CKD-EPI) equation refit without adjustment for race. GFR, EST. >60 >=60 11:[address] [facility] Comment: Creatinine Clearance is the preferred criteria for selecting drug dose adjustments in renally impaired patients. The GFR is provided as additional pertinent clinical information. GFR is reported in mL/min/1.73 sq m. Calculation based on the 2009 Chronic Kidney Disease Epidemiology Collaboration (CKD-EPI). GFR, EST. NONAFRICAN >60 >=60 12/19/2024 11:[address] [facility] Comment: Creatinine Clearance is the preferred criteria for selecting drug dose adjustments in renally impaired patients. The GFR is provided as additional pertinent clinical information. GFR is reported in mL/min/1.73 sq m. Calculation based on the 2009 Chronic Kidney Disease Epidemiology Collaboration (CKD-EPI). Blood Venipuncture / Unknown 12/19/2024 10:44 AM CDT 12/19/2024 10:50 AM CDT us Willis Lee PAC CHEMISTRY ORDERABLES Final Result [facility] [address] [place] [address] * EKG 12 LEAD (12/19/2024 10:36 AM CDT) Only the most recent of3 resultswithin the time period is included. Ventricular Rate 70 BPM EXTERNAL EKG Atrial Rate 70 BPM EXTERNAL EKG P-R Interval 118 ms EXTERNAL EKG QRS Duration 90 ms EXTERNAL EKG Q-T Duration 384 ms EXTERNAL EKG QTC CALCULATION 414 ms EXTERNAL EKG P Clarissa 63 degrees EXTERNAL EKG R Clarissa 60 degrees EXTERNAL EKG T Clarissa 52 degrees EXTERNAL EKG 12/19/2024 10:3 6 AM CDT Impressions EXTERNAL EKG - 12/19/2024 4:09 PM CDT Normal sinus rhythm Normal ECG When compared with ECG of 17-NOV-2024 09:47, No significant change was found Confirmed by Jn Nguyen ([id number]) on 12/19/2024 4:09:26 PM Narrative Procedure Note Jn Nguyen MD PhD - 12/19/2024 IMPRESSION: Normal sinus rhythm Normal ECG When compared with ECG of 17-NOV-2024 09:47, No significant change was found Confirmed by Jn Nguyen ([id number]) on 12/19/2024 4:09:26 PM us Billy Cagle MD IMG ECG ORDERABLES Final Result Performing Organization Address City/[facility] Co de Phone Number EXTERNAL EKG * [...] CDT DICTATING PHYSICIAN: Mickey Mccarty D.O. - [facility] US THYROID, 12/02/2024 11:09 [...] (2) with internal vascularity. Echogenicity: Hyperechoic (1). Foeaso-ueoi-Lngw: no (0). Margins: Smooth (0). Echogenic foci: None (0). ACR TI-RADS Classification: TR 3 (3 points) Procedure Note Mickey Mccarty, DO - 12/03/2024 DICTATING PHYSICIAN: Mickey Mccarty D.O. - [facility] US THYROID, 12/02/2024 11:09 AM [...] solid (2) with internalvascularity. Echogenicity: Hyperechoic (1). Qxsygi-aaim-Pogz: no (0). Margins: Smooth (0). Echogenic foci: [...] in volume according to the 2017 WhitePaper. May N Delisa BRISCOE CNP [facility] US ORDERABLES Final R esult * VITAMIN D, 25 HYDROXY TOTAL (12/02/2024 10:47 AM CDT) VITAMIN D, 25 HYDROX 27.9 ng/mL 12/02/2024 12:19 PM CDT [facility] Blood Venipuncture / Unknown 12/02/2024 10:47 AM CDT 12/02/2024 11:12 AM CDT Narrative [facility] - 12/02/2024 12:19 PM CDT Published reference ranges for Vitamin D vary depending on time and place and method of testing, and on patient's age, sex, ethnicity and levels of other measured analytes such as parathormone, calcium and phosphorus. The result should be evaluated in conjunction with clinical findings and suspicions. [place] [employer] and [employer] Clinical Practice Guidelines: Status Vitamin D levels (ng/mL) Deficient <=20 At risk of inadequacy 21-29 Sufficient 30-100 Centers of Disease Control and Prevention Guidelines: Status Vitamin D levels (ng/mL) Deficient <13 At risk of inadequacy 13-19 Sufficient 20-50 Possibly harmful >50 References: [place] [employer], 2010 Dietary reference intakes for calcium and vitamin D. [place]: The National Academies Press. Betsy M, Ariadne N, Glen ZAMUDIO, et al., Evaluation, treatment, and prevention of Vitamin D deficiency: an Endocrinology Clinical Practice Guideline. JCEM 2011 96: 7 7612-5677. Kenan A, Desmond C, Tyra D, et al., Vitamin D Status: [place], 2554-6025, NCHS data brief, no. 59, MD [place]: National Center for Health Statistics. 2010. May N Delisa BRISCOE CNP CHEMISTRY ORDERABLES Adelaide l Result [facility] [place] [address] * THYROID SCREEN WITH REFLEX (12/02/2024 10:47 AM CDT) TSH 1.382 0.300 - 5.000 mIU/L 12/02/2024 12:07 PM CDT [facility] Blood Venipuncture / Unknown 12/02/2024 10:47 AM CDT 12/02/2024 11:12 AM CDT us May N Delisa BRISCOE, COMMAND CENTER OFFICER CHEMISTRY ORDERABLES Adelaide l Result [facility] [address] [place] [address] * VITAMIN B12 (12/02/2024 10:47 AM CDT) VITAMIN B12 418 213 - 816 pg/mL 12/02/2024 12:19 PM CDT [facility] Blood Venipuncture / Unknown 12/02/2024 10:47 AM CDT 12/02/2024 11:12 AM CDT May N Delisa BRISCOE, COMMAND CENTER OFFICER CHEMISTRY ORDERABLES Adelaide l Result Performing Organization Address City/[facility]/ZIP Co de Phone Number [facility] [address] [place] [address] * THYROXINE (T4) FREE (12/02/2024 10:47 AM CDT) T4 FREE 0.8 0.7 - 1.9 ng/dL 12/02/2024 12:08 PM CDT [facility] Blood Venipuncture / Unknown 12/02/2024 10:47 AM CDT 12/02/2024 11:12 AM CDT us May N Delisa BRISCOE, COMMAND CENTER OFFICER CHEMISTRY ORDERABLES Adelaide l Result [facility] [address] [place] [address] * LIPID PANEL (12/02/2024 10:47 AM CDT) CHOLESTEROL 175 <200 mg/dL 12/02/2024 11:[address] [facility] TRIGLYCERIDES 127 <150 mg/dL 12/02/2024 11:[address] [facility] HDL CHOLESTEROL 55 >40 mg/dL 11:[address] [facility] LDL 95 <130 mg/dL 12/02/2024 11:[address] [facility] VLDL 25 10 - 50 mg/dL 12/02/2024 11:[address] [facility] CHOL/HDL RATIO 3.2 0.0 - 4.4 12/02/2024 11:[address] [facility] NON-HDL CHOLESTEROL 120 <130 mg/dL 12/02/2024 11:54 AM [facility] IS THE PATIENT REQUIRED TO BE FASTING? Yes 12/02/2024 11:54 AM [facility] HAS THE PATIENT BEEN FASTING? Yes 12/02/2024 11:54 AM [facility] Blood Venipuncture / Unknown 12/02/2024 10:47 AM CDT 12/02/2024 11:12 AM CDT N[address] [facility] - 12/02/2024 11:54 AM T NCEP [...] mg/dL above target levels for LDL cholesterol. us May N Oehl MEDICAL TRANSCRIPTIONIST, COMMAND CENTER OFFICER CHEMISTRY ORDERABLES Adelaide l Result Performing Organization Address City/[facility]/ZIP Co de Phone Number [facility] [address] [place] [address] * RSV,SARS-COV-2,INFLUENZA A&B BY PCR (11/17/2024 9:55 AM CDT) FLU A Negative Negative, Error 11/17/2024 11:19 AM CDT [facility] FLU B Negative Negative 11/17/2024 11:19 AM CDT [facility] RESP SYNC VIRUS Negative Negative 11:19 AM CDT [facility] SARSCOV2 NOT DETECTED (Reference Range for this test is Not Detected) 11/17/2024 11:19 AM CDT [facility] Comment:This test was perfor med by a Reverse Central Supply Assistant PCR Method. Nasal NASOPHARYNGEAL STRUCTURE / Unknown Non-Phlebotomy Collection / Unknown 11/17/2024 9:55 AM CDT 11/17/2024 10:36 AM CDT us Hugh Palencia DO MICROBIOLOGY - GENERAL ORDERABLES Final Result Performing Organization Address [facility] Co de Phone Number [facility] [place] [address] * Gold Top Tube (11/17/2024 9:45 AM CDT) Blood No Phlebotomy Charged / Unknown 11/17/2024 9:45 AM CDT 11/17/2024 10:38 AM CDT us Hugh Palencia DO CHEMISTRY ORDERABLES Fi nal Result Performing Organization Address City/[facility]/ZIP Co de Phone Number [facility] [place] [address] * Blue Top Tube (11/17/2024 9:45 AM CDT) Blood No Phlebotomy Charged / Unknown 11/17/2024 9:45 AM CDT 11/17/2024 10:38 AM CDT us Hugh Candido Palencia DO HEMATOLOGY ORDERABLES F inal Result [facility] [address] [place] [address] * XR CHEST SINGLE VIEW PORTABLE (11/15/2024 [...] Result * Human Chorionic Gonadotropin Scrn Serum [id number] (11/15/2024 10:26 PM CDT) PREG-HCG Negative Negative 11/15/2024 11:28 PM CDT [facility] Blood Venipuncture / Unknown 11/15/2024 10:26 PM CDT 11/15/2024 11:06 PM CDT Billy Cagle MD CHEMISTRY ORDERABLES Adelaide l Result Performing Organization Address City/[facility]/ZIP Co de Phone Number [facility] [address] [place] [address] * Lipase (11/15/2024 10:26 PM CDT) LIPASE 19 8 - 78 U/L 11/15/2024 11:[address] [facility] Blood Venipuncture / Unknown 11/15/2024 10:26 PM CDT 11/15/2024 11:06 PM CDT Billy Cagle MD CHEMISTRY ORDERABLES Adelaide l Result Performing Organization Address City/[facility]/ZIP Co de Phone Number [facility] [place] [address] from Last 3 Months Insurance MEDICAID [place] Care Teams Special Effects Designer Relationship Specialty Start Date End Date Delisa, May N, MEDICAL TRANSCRIPTIONIST, COMMAND CENTER OFFICER [address] [address] PCP - General Advanced Practice Nurse 10/21/24
--- OUTSIDE RECORDS SUMMARY | 2024-12-25 11:05 | XMS_ITS | Clinical Summary ---
Author Organization [facility] Address [address] [place] [address] Care Team Providers Care Switchboard Operator Receptionist Name Role Phone Delisa, May ENVIRONMENTAL SERVICES TECHNICIAN Primary Care Provider [phone] Allergies Active Allergy Reactions Criticality Noted Date Comments Codeine Anaphylaxis,Shortnes s of Breath High 07/13/2015 Ketorolac Other (see comment) 07/13/2015 Rapid Heart Rate Naproxen GI Upset 07/13/2015 No problems with Ibuprofen Penicillins Unknown 07/13/2023 Medications buprenorphine- naloxone (SUBOXONE) 4 mg-[address] 1 Film under the tongue 2 (two) times a day. 09/30/19 Active predniSONE 50 MG tablet Take 1 tablet (50 mg total) by mouth daily for 10 days. 10 tablet 12/16/19 Active Additional Information Patient not taking.Reported on 12/23/2024 cyclobenzaprin e (FLEXERIL) 10 MG tablet Take 1 tablet (10 mg total) by mouth 3 (three) times daily as needed for Muscle Spasms. 15 tablet 12/19/19 Active Additional Information Patient not taking.Reported on 12/23/2024 hydrOXYzine (VISTARIL) 25 MG capsule Take 1 capsule (25 mg total) by mouth 4 (four) times daily as needed for Anxiety. 09/22/19 Discontinued OLANZapine (ZYPREXA) 10 MG tablet Take 1 tablet (10 mg total) by mouth nightly at bedtime. 09/22/19 Discontinued traZODone (DESYREL) 100 MG tablet Take 1 tablet (100 mg total) by mouth nightly at bedtime. 09/30/19 025 Discontinued multi vitamin/minera ls (THERA-M ENHANCED) tablet Take 1 tablet by mouth daily. 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 Encounters Date Type Department Care Team Description 12/24/2024 3:59 PM CDT - 12/24/2024 8:20 PM CDT Emergency [facility] Emergency Room [address] [place] [id number] Salo Dillon MD Palmer, Aunaly E, MD Chest Pain Discharge Disposition: Home or Self Care (Routine Discharge) 12/24/2024 Travel 12/23/2024 2:42 PM CDT - 12/23/2024 4:51 PM CDT Emergency [facility] Emergency Room [address] [place] [id number] Salo Dillon MD Chest Pain Discharge Disposition: Home or Self Care (Routine Discharge) 12/23/2024 Travel 12/17/2024 11:53 PM CDT - 12/18/2024 2:43 AM CDT Emergency [facility] Emergency [address] [place] [address] Billy Mayfield DO Chest Pain Discharge Disposition: Home or Self Care (Routine Discharge) 12/17/2024 Travel 12/15/2024 2:10 AM CDT - 12/15/2024 3:41 AM CDT Emergency [facility] [facility] [address] [place] [address] Jens Mendoza MD Abdominal Pain Discharge Disposition: Home or Self Care (Routine Discharge) 12/15/2024 Travel 12/14/2024 7:01 PM CDT - 12/14/2024 11:09 PM CDT Emergency [place] [facility] Room [address] [place] [address] Jens Mendoza MD Chest Pain; Shortness Of Breath Discharge Disposition: Home or Self Care (Routine Discharge) 12/14/2024 Travel 10/18/2024 9:46 AM CDT - 10/18/2024 10:30 PM CDT Emergency [facility] Emergency Room [address] [place] [address] Yovana Zamora MD Geldmacher, Kelly J, MD Medical Problem [facility] 10/17/2024 2:59 PM CDT - 10/17/2024 8:00 PM CDT Emergency [facility] [facility] [address] [place] [address] Familia Carter MD Medical Problem Discharge Disposition: [...] drink = 0.6 oz pur e alcohol) [facility] Utilities Answer Date Recorded In the past 12 months has [email or web address], gas, oil, or water [employer] threatened to shut off services in your [...] any time in the past 12 m [facility], were you homeless or living in [...] Mass Index 21.73 12/24/2024 3:58 PM CDT Plan of Treatment Health Maintenance [...] TIME, VENOUS STAT 12/24/2024 4:10 PM CDT LIPASE STAT 12/24/2024 4:10 PM CDT TROPONIN, QUANT STAT 12/24/2024 4:10 PM CDT COMPREHENSIVE METABOLIC PANEL STAT 12/24/2024 4:10 PM CDT CBC W/DIFF AUTOMATED STAT 12/24/2024 4:10 PM CDT PROTHROMBIN TIME, VENOUS STAT 12/23/2024 3:10 PM CDT TROPONIN, QUANT STAT 12/23/2024 3:10 PM CDT COMPREHENSIVE METABOLIC PANEL STAT 12/23/2024 3:10 PM CDT CBC W/DIFF AUTOMATED STAT 12/23/2024 3:10 PM CDT XR CHEST PORTABLE STAT 12/23/2024 3:0 9 PM CDT ECG 12-LEAD STAT 12/23/2024 2:40 PM CDT ECG 12-LEAD STAT 12/18/2024 12:05 AM CDT [...] Recently Relevant to Health Maintenance Results * CTA CHEST (12/24/2024 5:42 PM CDT) Anatomical Region Laterality Modality Chest Computed Tomogra phy 12/24/2024 5:56 PM CDT Impressions 12/24/2024 6:02 PM CDT IMPRESSION: 1. Technically limited evaluation for pulmonary embolism. 2. Stable 9 mm lung nodule. Recommend continued surveillance as above. Referred By: Interpreted By: Everett Peterson MD, 12/24/2024 5:56 PM Narrative 12/24/2024 6:02 PM CDT [facility] [address] [place] [address] Examination: CTA CHEST Clinical history: Chest pain [...] Procedure Note Everett Peterson MD - 12/24/2024 [facility] [address] [address] [facility] [place] [address] Examination: CTA CHEST Clinical history: Chest pain [...] XR CHEST PORTABLE (12/24/2024 4:31 PM CDT) Only the most recent of3 resultswithin the time period is included. Anatomical Region Laterality Modality Chest Radiographic Daniella [...] 4:34 PM Narrative 12/24/2024 4:41 PM CDT [facility] [address] [place] [address] Examination: XR CHEST PORTABLE Exam time: 12/24/2024 4:14 PM Clinical history: Chest pain. Comparison: 12/23/2024. Technique: AP portable upright radiograph of the chest. Findings: Normal heart size. Normal distribution of the pulmonary vasculature. No focal parenchymal lung consolidation, pleural effusion, or pneumothorax. No acute osseous findings. Surgical clips noted in the upper abdomen. Procedure Note Juan Alberto Meier MD - 12/24/2024 [facility] [address] [place] [address] Examination: XR CHEST PORTABLE Exam time: 12/24/2024 [...] ECG 12 lead (12/24/2024 4:10 PM CDT) Only the most recent of6 resultswithin the time period is included. 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1980 Requested By: SALO DILLON Order Number: [id number] Reading MD: Bubba Reyes Measurements Intervals [place] Rate: 58 P: 66 [place]: 123 QRS: 67 QRSD: 90 T: 61 QT: 390 QTc: 386 Interpretive Statements SINUS BRADYCARDIA Compared to ECG 12/23/2024 14:40:13 Sinus rhythm no longer present RTISING TEACHER Procedure Note Bubba Reyes MD - 12/25/2024 [facility] Test Date: 2024-12-24 Pat Name: JJ SLATER Department: 85 Room: EXAM 303 Gender: Female 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1980 Requested By: SALO DILLON Order Number: [id number] Reading MD: Bubba Reyes Measurements Intervals [place] Rate: 58 P: 66 [place]: 123 QRS: 67 QRSD: 90 T: 61 QT: 390 QTc: 386 Interpretive Statements SINUS BRADYCARDIA Compared to ECG 12/23/2024 14:40:13 Sinus rhythm no longer present RTISING TEACHER us Salo Dillon MD ECG ORDERABLES Final Result Performing Organization Address [facility] Co de Phone Number [facility]) RAD * PROTIME/INR, VENOUS (12/24/2024 4:10 PM CDT) Only the most recent of3 resultswithin the time period is included. PROTIME 12.3 9.1 - 12.4 SEC 12/24/2024 4:46 PM CDT [facility] INR 1.1 12/24/2024 4:46 PM CDT [facility] Comment: Recommend INR ranges for Oral Anticoagulant Therapy: Mechanical Cardiac Values 2.5-3.5 All others indication 2.0-3.0 12/24/2024 4:10 PM CDT us Salo Dillon MD LABORATORY Final Result Performing Organization Address City/[facility]/ZIP Co de Phone Number [facility] [address] [place] [address], [place] [phone] * (ABNORMAL) COMPREHENSIVE METABOLIC PANEL (12/24/2024 4:10 PM CDT) Only the most recent of6 resultswithin the time period is included. [facility] GLUCOSE 84 70 - 99 MG/DL 12/24/2024 4:35 PM CDT [facility] BUN 21(H) 7 - 18 MG/DL 12/24/2024 4:35 PM T [facility] CREATININE S/P/B 0.78 0.55 - 1.02 MG/DL 12/24/2024 4:35 PM T [facility] SODIUM S/P/B 139 136 - 145 MMOL/L 12/24/2024 4:35 PM T [facility] POTASSIUM S/P/B 4.0 3.5 - 5.1 MMOL/L 12/24/2024 4:35 PM T [facility] CHLORIDE S/P/B 103 100 - 108 MMOL/L 12/24/2024 4:35 PM T [facility] CO2 31.8 21 - 32 MMOL/L 12/24/2024 4:35 PM T [facility] CALCIUM S/P/B 8.5 8.5 - 10.1 MG/DL 12/24/2024 4:35 PM T [facility] BILIRUBIN TOTAL S/P/B 0.5 0.2 - 1.2 MG/DL 12/24/2024 4:35 PM T [facility] TOTAL PROTEIN S/P/B 6.4 6.4 - 8.2 G/DL 12/24/2024 4:35 PM T [facility] ALBUMIN S/P/B 3.4 3.4 - 5.0 G/DL 12/24/2024 4:35 PM T [facility] AST 11(L) 15 - 37 U/L 12/24/2024 4:35 PM CDT [facility] ALT 12(L) 14 - 55 U/L 12/24/2024 4:35 PM CDT [facility] ALKALINE PHOSPHATASE S/P/B 71 50 - 136 U/L 12/24/2024 4:35 PM CDT [facility] ANION GAP 4.2(L) 5 - 15 MMOL/L 12/24/2024 4:35 PM CDT [facility] BUN CREATININE RATIO 26.9(H) 6 - 26 12/24/2024 4:35 PM T [facility] A/G RATIO 1.1 1.0 - 2.0 RATIO 12/24/2024 4:35 PM T [facility] GFR ESTIMATE >90 >90 ML/MIN/1.7 3 M2 12/24/2024 4:35 PM CDT [facility] Comment: NOTE: eGFR is not calculated for patients <18 years of age. This is an estimated GFR calculation using the new CKD EPI creatinine equation without race and so does not require a correction factor for race. This estimated GFR should not be used for calculating drug doses. 12/24/2024 4:10 PM CDT Salo Dillon MD LABORATORY Final Result [facility] [address] [place] [address], * (ABNORMAL) CBC W/DIFF AUTOMATED (12/24/2024 4:10 PM CDT) Only the most recent of7 resultswithin the time period is included. WBC 5.15 4.4 - 11.0 x10'3/uL 12/24/2024 4:23 PM CDT [facility] RBC 3.80(L) 4.50 - 5.10 x10'6/uL 12/24/2024 4:23 PM CDT [facility] HGB 11.6(L) 12.3 - 15.3 G/DL 12/24/2024 4:23 PM CDT [facility] HCT 35.3(L) 35.9 - 44.6 % 12/24/2024 4:23 PM CDT [facility] MCV 92.9 80.0 - 96.0 FL 12/24/2024 4:23 PM CDT [facility] MCH 30.5 25.3 - 30.9 PG 12/24/2024 4:23 PM CDT [facility] MCHC 32.9 31.0 - 34.1 G/DL 12/24/2024 4:23 PM CDT [facility] RDW 13.2 12.4 - 15.1 % 12/24/2024 4:23 PM T [facility] PLT 337 151 - 353 x10'3/uL 12/24/2024 4:23 PM T [facility] MPV 9.6 9.6 - 12.0 FL 12/24/2024 4:23 PM T [facility] RBC MORPHOLOGY NORMAL 12/24/2024 4:23 PM T [facility] PLT MORPH. NORMAL 12/24/2024 4:23 PM T [facility] WBC MORPHOLOGY NORMAL 12/24/2024 4:23 PM T [facility] LYMPHOCYTES % 29.5 15.8 - 45.0 % 12/24/2024 4:23 PM CDT [facility] NEUTROPHILS % 59.4 42.1 - 71.9 % 12/24/2024 4:23 PM CDT [facility] MONOCYTES % 8.7 5.7 - 12.5 % 12/24/2024 4:23 PM CDT [facility] EOSINOPHILS 1.2 0.0 - 5.6 % 12/24/2024 4:23 PM CDT [facility] BASOPHILS 1.0 0.0 - 1.3 % 12/24/2024 4:23 PM CDT [facility] ABS. NEUTROPHILS 3.06 1.40 - 6.00 x10'3/uL 12/24/2024 4:23 PM CDT [facility] IMMATURE GRANS % 0.2 0.0 - 0.5 % 12/24/2024 4:23 PM CDT [facility] ABS. LYMPHOCYTES 1.52 0.80 - 4.70 x10'3/uL 12/24/2024 4:23 PM CDT [facility] 12/24/2024 4:10 PM CDT us Salo Dillon MD LABORATORY Final Result Performing Organization Address City/[facility]/ZIP Co de Phone Number [facility] [address] [place] [address], [place] [phone] * TROPONIN, QUANT (12/24/2024 4:10 PM CDT) Only the most recent of4 resultswithin the time period is included. TROPONIN I HIGH SENSITIVITY 6 0 - 50 ng/L 12/24/2024 4:38 PM CDT [facility] Comment: HIGH DOSES OF BIOTIN, TROPONIN-SPECIFIC AUTOANTIBODIES, AND ANTIBODY THERAPY CONTAINING HAMA MAY INTERFERE WITH THIS TEST RESULT. CORRELATION TO CLINICAL HISTORY AND PRESENTATION RECOMMENDED. 12/24/2024 4:10 PM CDT us Salo Dillon MD LABORATORY Final Result [facility] [address] [place] [address], [place] [phone] * LIPASE (12/24/2024 4:10 PM CDT) Only the most recent of2 resultswithin the time period is included. LIPASE 63 16 - 77 UNITS/L 12/24/2024 4:35 PM CDT [facility] 12/24/2024 4:10 PM CDT Salo Dillon MD LABORATORY Final Result [facility] [address] [place] [address], * D-DIMER, QUANTITATIVE (12/18/2024 12:00 AM CDT) Pathologist [facility] D-DIMER 271 0 - 500 ng{FEU}/mL 12/18/2024 1:02 AM CDT [facility] EXCLUSION STATEMENT 12/18/2024 1:02 AM CDT [facility] Comment: D-Dimer values less than [...] 12/18/2024 Billy Mayfield DO LABORATORY Final Result [facility] [address] [place] [address], [place] [phone] * HCG QUANT SERUM - CHORIONIC GONADOTROPIN () (12/18/2024 12:00 AM CDT) HCG QUANTITATIVE <1 MIU/ML 12/19/19 1:07 AM CDT [facility] Comment: <5 IS NEGATIVE 5-25 IS BORDERLINE >25 IS POSITIVE ASSAY PERFORMED BY CHEMILUMINESCENCE METHODOLOGY USING SIEMENS DIMENSION VISTA REAGENT. PATIENT RESULTS DETERMINED BY ASSAYS USING DIFFERENT MANUFACTURERS FOR METHODS MAY NOT BE COMPARABLE. 12/18/2024 Emily Fung NP LABORATORY Final Result [facility] [address] [place] [address], [id number] * CT HEAD WO CON (10/18/2024 8:19 PM CDT) Anatomical Region Laterality Modality Head Computed Tomogra phy 10/18/2024 8:20 PM CDT Impressions 10/18/2024 8:22 PM CDT IMPRESSION: No acute intracranial abnormalities identified. Referred By: Interpreted By: Gaurav Damon DO, 10/18/2024 8:20 PM Narrative 10/18/2024 8:22 PM CDT [place] [address] EXAMINATION: CT head without contrast HISTORY: Confusion. [...] Procedure Note Gaurav Damon DO - 10/18/2024 [facility] [address] [place], [place] [address] EXAMINATION: CT head without contrast HISTORY: Confusion. [...] URINE CLEAN CATCH 10/18/2024 4:30 PM CDT [facility] SPECIAL REQUESTS NO SPECIAL REQUEST 10/18/2024 4:30 PM CDT [facility] CULTURE RESULT POLYMICROBIAL GROWTH CONSISTENT WITH NORMAL GENITAL CAM. SUSCEPTIBILITIES NOT ROUTINELY PERFORMED. 10/19/2024 8:45 AM CDT [facility] URINE SPECIMEN OBTAINED BY CLEAN CATCH PROCEDURE / Unknown 10/18/2024 4:30 PM CDT 10/18/2024 8:10 PM CDT us Yovana Zamora MD MICROBIOLOGY - GENERAL ORDERA BLES Final Result [facility] [address] [place] [address], * RESPIRATORY PCR PANEL 2 (10/18/2024 12:33 PM CDT) Pathologist [facility] ADENOVIRUS PCR (RESP) NOT DETECTED NOT DETECTED 10/18/2024 1:50 PM CDT [facility] CORONAVIRUS 229E PCR (RESP) NOT DETECTED NOT DETECTED 10/18/2024 1:50 PM CDT [facility] CORONAVIRUS HKU1 PCR (RESP) NOT DETECTED NOT DETECTED 10/18/2024 1:50 PM CDT [facility] CORONAVIRUS NL63 PCR (RESP) NOT DETECTED NOT DETECTED 10/18/2024 1:50 PM CDT [facility] CORONAVIRUS OC43 PCR (RESP) NOT DETECTED NOT DETECTED 10/18/2024 1:50 PM CDT [facility] METAPNEUMOVIRUS PCR (RESP) NOT DETECTED NOT DETECTED 10/18/2024 1:50 PM CDT [facility] RHINOVIRUS/ENTEROV IRUS PCR (RESP) NOT DETECTED NOT DETECTED 10/18/2024 1:50 PM CDT [facility] INFLUENZA A PCR (RESP) NOT DETECTED NOT DETECTED 10/18/2024 1:50 PM CDT [facility] INFLUENZA B PCR (RESP) NOT DETECTED NOT DETECTED 10/18/2024 1:50 PM CDT [facility] PARAINFLUENZA 1 PCR (RESP) NOT DETECTED NOT DETECTED 10/18/2024 1:50 PM CDT [facility] PARAINFLUENZA 2 PCR (RESP) NOT DETECTED NOT DETECTED 10/18/2024 1:50 PM CDT [facility] PARAINFLUENZA 3 PCR (RESP) NOT DETECTED NOT DETECTED 10/18/2024 1:50 PM CDT [facility] PARAINFLUENZA 4 PCR (RESP) NOT DETECTED NOT DETECTED 10/18/2024 1:50 PM CDT [facility] RSV PCR (RESP) NOT DETECTED NOT DETECTED 10/18/2024 1:50 PM CDT [facility] B PARAPERTUSIS PCR (RESP) NOT DETECTED NOT DETECTED 10/18/2024 1:50 PM CDT [facility] BORDETELLA PERTUSSIS PCR (RESP) NOT DETECTED NOT DETECTED 10/18/2024 1:50 PM CDT [facility] CHLAMYDOPHILA PNEUMONIAE PCR (RESP) NOT DETECTED NOT DETECTED 10/18/2024 1:50 PM CDT [facility] MYCOPLASMA PNEUMONIAE PCR (RESP) NOT DETECTED NOT DETECTED 10/18/2024 1:50 PM CDT [facility] CORONAVIRUS SARS COV 2 PCR (RESP) NOT DETECTED NOT DETECTED 10/18/2024 1:50 PM CDT [facility] NASOPHARYNGEAL SWAB / Unknown 10/18/2024 12:33 PM CDT Yovana Zamora MD MICROBIOLOGY - GENERAL ORDERA BLES Final Result [facility] [address] [place] [id number], [place] [phone] * TEST URINE (10/18/2024 11:00 AM CDT) URINE HCG TEST NEGATIVE 10/18/2024 11:11 AM CDT [facility] Comment: VERY DILUTE URINE SPECIMENS MAY NOT CONTAIN METAL CASTER LEVELS OF HCG. IF IS STILL SUSPECTED, A SERUM HCG TEST IS RECOMMENDED. URINE SPECIMEN FROM URETHRA / Unknown 10/18/2024 11:00 AM CDT Yovana Zamora MD URINE ORDERABLES Final Result [facility] [address] [place] [address], * (ABNORMAL) URINALYSIS, AUTO, COMPLETE (10/18/2024 11:00 AM CDT) SPECIMEN TYPE URINE CLEAN CATCH 10/18/2024 11:01 AM CDT [facility] COLOR (U) DARK BROWN 10/18/2024 11:23 AM CDT [facility] TRANSPARENCY TURBID 10/18/2024 11:23 AM CDT [facility] SPECIFIC GRAVITY (U) 1.034(H) 1.001 - 1.030 10/18/2024 11:23 AM CDT [facility] U PH 5.5 5.0 - 9.0 10/18/2024 11:23 AM CDT [facility] LEUKOCYTES (U) 250(A) NEGATIVE 10/18/2024 11:23 AM CDT [facility] NITRITES NEGATIVE NEGATIVE 10/18/2024 11:23 AM CDT [facility] PROTEIN RANDOM (U) 100(H) <30 MG/DL 10/18/2024 11:23 AM CDT [facility] GLUCOSE (U) NORMAL NORMAL MG/DL 10/18/2024 11:23 AM CDT [facility] KETONES MG/DL (U) 60(A) NEGATIVE MG/DL 10/18/2024 11:23 AM CDT [facility] UROBILINOGEN NORMAL NORMAL MG/DL 10/18/2024 11:23 AM CDT [facility] BILIRUBIN (U) NEGATIVE NEGATIVE MG/DL 10/18/2024 11:23 AM CDT [facility] BLOOD (U) 3+(A) NEGATIVE 10/18/2024 11:23 AM CDT [facility] MUCUS MANY /LPF 10/18/2024 11:23 AM CDT [facility] WBC/HPF >100(H) <6 /HPF 10/18/2024 11:23 AM CDT [facility] RBC/HPF >100(H) <6 /HPF 10/18/2024 11:23 AM CDT [facility] SQUAMOUS EPITHELIALS MODERATE /HPF 10/18/2024 11:23 AM CDT [facility] URINE SPECIMEN OBTAINED BY CLEAN CATCH PROCEDURE / Unknown 10/18/2024 11:00 AM CDT us Yovana Zamora MD URINE ORDERABLES Final Result [facility] [address] [place] [address], [place] [phone] * (ABNORMAL) DRUG SCREEN RAPID (10/18/2024 10:56 AM CDT) Only the most recent of2 resultswithin the time period is included. AMPHETAMINE (U) POSITIVE(A) NEGATIVE 10/19/19 11:27 AM CDT [facility] BARBITURATES SCREEN (U) POSITIVE(A) NEGATIVE 10/18/2024 11:27 AM CDT [facility] BENZODIAZEPINES SCREEN (U) NEGATIVE NEGATIVE 10/18/2024 11:27 AM CDT [facility] CANNABINOIDS SCREEN (U) NEGATIVE NEGATIVE 10/18/2024 11:27 AM CDT [facility] COCAINE METABOLITES (U) NEGATIVE NEGATIVE 10/18/2024 11:27 AM CDT [facility] METHADONE (U) NEGATIVE NEGATIVE 10/18/2024 11:27 AM CDT [facility] OPIATE SCREEN (U) NEGATIVE NEGATIVE 025 11:27 AM CDT [facility] PHENCYCLIDINE PCP (U) NEGATIVE NEGATIVE 10/18/2024 11:27 AM CDT [facility] Comment: NOTE: RESULTS OF THIS DRUG SCREEN SHOULD BE USED FOR MEDICAL PURPOSES ONLY AND NOT FOR LEGAL OR EMPLOYMENT PURPOSES. POSITIVE RESULTS ARE NOT CONFIRMED. MEDICATIONS CONTAINING EPHEDRINE MAY CAUSE FALSE POSITIVE AMPHETAMINE CALL [phone], LAB, TO REQUEST CONFIRMATION TESTING. IF CREATININE IS <40 mg/dL. RECOLLECTION IS SUGGESTED. AMPHETAMINE- 500 NG/ML BARBITURATE- 200 NG/ML BENZODIAZEPINES- 200 NG/ML THC- 50 NG/ML COCAINE- 150 NG/ML METHADONE- 300 NG/ML OPIATE- 300 MG/ML PCP- 25 NG/ML CREATININE (U) 337.0(H) 28 - 217 MG/DL 10/18/2024 11:27 AM CDT [facility] URINE SPECIMEN / Unknown 10/18/2024 10:56 AM CDT Yovana Zamora MD URINE ORDERABLES Final Result [facility] [address] [place] [address], [place] [phone] * (ABNORMAL) MAGNESIUM (10/18/2024 10:45 AM CDT) MAGNESIUM 2.5(H) 1.8 - 2.4 MG/DL 10/18/2024 12:06 PM CDT [facility] 10/18/2024 10:4 5 AM CDT Yovana Zamora MD LABORATORY Final Result [facility] [address] [place] [address], [place] [phone] * (ABNORMAL) SALICYLATE (10/18/2024 10:45 AM CDT) SALICYLATES 2.0(L) 2.8 - 20.0 MG/DL 10/18/2024 11:14 AM CDT [facility] Comment: THERAPEUTIC: 2.8-20.0 Toxic Level: >=30 10/18/2024 10:4 5 AM CDT Yovana Zamora MD LABORATORY Final Result [facility] [address] [place] [id number], * CK (CPK) (10/18/2024 10:45 AM CDT) CPK 88 21 - 215 U/L 10/18/2024 12:06 PM CDT [facility] 10/18/2024 10:4 5 AM CDT Yovana Zamora MD LABORATORY Final Result Performing Organization Address City/[facility]/ZIP Co de Phone Number [facility] [address] [place] [phone], * THYROID STIM HORMONE, TSH (10/18/2024 10:17 AM CDT) TSH 1.380 0.358 - 3.74 uIU/ML 10/18/2024 11:12 AM CDT [facility] Comment: HIGH DOSES OF BIOTIN MAY INTERFERE WITH THIS TEST RESULT. CORRELATION TO CLINICAL HISTORY AND PRESENTATION RECOMMENDED. 10/18/2024 10:1 7 AM CDT us Yovana Zamora MD LABORATORY Final Result Performing Organization Address City/[facility]/ZIP Co de Phone Number [facility] [address] [place] [address], * ETHANOL (10/18/2024 10:17 AM CDT) Only the most recent of2 resultswithin the time period is included. ALCOHOL S/P/B <0.003 <0.003 G/DL 10/18/2024 11:12 AM CDT [facility] 10/18/2024 10:1 7 AM CDT Yovana Zamora MD LABORATORY Final Result Performing Organization Address [facility] Co de Phone Number [facility] [address] [place] [address], * (ABNORMAL) ACETAMINOPHEN (10/18/2024 10:17 AM CDT) ACETAMINOPHEN S/P/B <2.0(L) 10.0 - 30.0 MCG/ML 10/18/2024 11:12 AM CDT [facility] Comment: THERAPEUTIC: 10-30 TOXIC: >200 10/18/2024 10:1 7 AM CDT Yovana Zamora MD LABORATORY Final Result Performing Organization Address City/[facility] Co de Phone Number [facility] [address] [place] [address], [place] [phone] * (ABNORMAL) BASIC METABOLIC PANEL (10/17/2024 4:12 PM CDT) SODIUM S/P/B 140 136 - 145 MMOL/L 10/17/2024 5:06 PM CDT [facility] POTASSIUM S/P/B 3.5 3.5 - 5.1 MMOL/L 10/17/2024 5:06 PM T [facility] CHLORIDE S/P/B 103 98 - 107 MMOL/L 10/17/2024 5:06 PM [facility] CO2 27.0 21.0 - 32.0 MMOL/L 10/17/2024 5:06 PM [facility] GLUCOSE 98 70 - 99 MG/DL 10/17/2024 5:06 PM [facility] Comment: FASTING GLUCOSE 100 TO 125 MG/DL IS CONSISTENT WITH IMPAIRED FASTING GLUCOSE. FASTING GLUCOSE >125 MG/DL IS CONSISTENT WITH DIABETES. RANDOM GLUCOSE >200 MG/DL WITH HYPERGLYCEMIC SYMPTOMS IS CONSISTENT WITH DIABETES. PER ADA GUIDELINES BUN 18 6 - 24 MG/DL 10/17/2024 5:06 PM [facility] CREATININE S/P/B 1.18(H) 0.55 - 1.02 MG/DL 10/17/2024 5:06 PM T [facility] CALCIUM S/P/B 10.0 8.4 - 10.5 MG/DL 10/17/2024 5:06 PM [facility] ANION GAP 10.0 5.0 - 15.0 MMOL/L 10/17/2024 5:06 PM [facility] OSMOLALITY (CALC) 292 MOSM/KG 025 5:06 PM [facility] Comment:REFERENCE RANGE NOT ESTABLISHED GFR ESTIMATE 59(L) >89 ML/MIN/1. 73 M2 10/17/2024 5:06 PM [facility] GFR NOTES GFR REFERENCE S: 10/17/2024 5:06 PM [facility] Comment: THE ESTIMATED GFR IS [...] MD LABORATORY Final Result Performing Organization Address [facility]/ZIP Co de Phone Number [facility] [address] [place] [address], * CORONAVIRUS (COVID-19) ANTIGEN (10/17/2024 4:05 PM CDT) Pathologist [facility] CORONAVIRUS ANTIGEN IA NEGATIVE NEGATIVE 10/17/2024 5:06 PM CDT [facility] Comment: NEGATIVE RESULTS DO NOT [...] SPECIMEN TYPE NASAL 10/17/2024 4:43 PM CDT [facility] NASAL NASAL STRUCTURE / Unknown 10/17/2024 4:05 PM CDT us Familia Carter MD MICROBIOLOGY - GENERAL ORDERAB LES Final Result Performing Organization Address City/[facility]/ZIP Co de Phone Number [facility] [address] [place] [address], [place] [phone] * HEPATITIS PANEL,ACUTE (10/13/2023 3:24 AM CDT) Pathologist [facility] HEPATITIS B SURFACE AG NON-REACT VARGHESE NON-REACT VARGHESE 10/13/2023 1:41 PM CDT [facility] Comment:HBsAg NOT DETECTED. HEP B CORE IGM NON-REACT VARGHESE NON-REACT VARGHESE 10/13/2023 1:41 PM CDT [facility] Comment: IgM ANTI HBc NOT DETECTED. DOES NOT EXCLUDE THE POSSIBILITY OF EXPOSURE TO OR INFECTION WITH HBV. NO RETEST REQUIRED. HIGH DOSES OF BIOTIN MAY INTERFERE WITH THIS TEST RESULT. CORRELATION TO CLINICAL HISTORY AND PRESENTATION RECOMMENDED. HAV IGM NON-REACT VARGHESE NON-REACT VARGHESE 10/13/2023 1:41 PM CDT [facility] Comment: IgM ANTI HAV NOT DETECTED. DOES NOT EXCLUDE THE POSSIBILITY OF EXPOSURE TO OR INFECTION WITH HAV. LEVELS OF IgM ANTI HAV MAY BE BELOW THE CUTOFF IN EARLY INFECTION. HEPATITIS C AB NON-REACT VARGHESE NON-REACT VARGHESE 10/13/2023 1:42 PM CDT [facility] Comment: ANTIBODIES TO HCV NOT DETECTED. DOES NOT EXCLUDE THE POSSIBILITY OF EXPOSURE TO HCV. 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
== END 2024-12-25 11:28 | disposition left against medical advice (07) ==
DX: Z53.21 Procedure and treatment not carried out due to patient leaving prior to being seen by health care provider (principal)
CPT/HCPCS: 99199

== ENCOUNTER 2024-12-26 15:58 | Emergency (ER) | payer OTHER, SELFPAY ==
--- OUTSIDE RECORDS SUMMARY | 2024-09-28 04:40 | XMS_ITS ---
Author Organization [facility] Address [address] [place] [address] Care Team Providers Care Fluid Jet Cutter Operator Name Role Phone Alana Epps Primary Care Provider [phone] Ana Verma [phone] REASON FOR VISIT new patient Social History Sex Assigned At : Social History Observation Description Sex Assigned At Female Encounters Encounter Location Date Provider Diagnosis [facility] [address] [place] [address] 09/28/2024 Ana Verma Plan Of Treatment No Information Progress Notes * PADMABradsyedDOB:1980 (44 yo F)Acc No.[id number]:09/28/2024 UNLOCKED PROGRESS NOTE Patient: Jaycee AYALA Provider: ALCON Nash, FOOD OPERATIONS MANAGER, PMHNP-BC :1980 A ge:44 Y S ex:Female Date:09/28/2024 Address:[address], [facility] Pcp:Alana Epps Subjective: * Chief Complaints: * 1 . New patient. * Medical History: Objective: * Vitals: Assessment: Plan: * Treatment: * * Electronic signature of Anton Verma on 12/26/2024 at 04:04 PM FINANCIAL SALES CONSULTANT Sign off status: Pending * Provider: Peg Veram MSN, FOOD OPERATIONS MANAGER, PMHNP-BC Date: 0 09/28/2024 Generated for Printing/Faxing/eTransmitting on: 02/26/2024 04:04 PM FINANCIAL SALES CONSULTANT
--- OUTSIDE RECORDS SUMMARY | 2024-09-29 03:20 | XMS_ITS ---
Author Organization [facility] Address [address] [place] [address] Care Team Providers Care Medical Services Manager Name Role Phone Alana Epps Primary Care Provider Leandro Harris [phone] REASON FOR VISIT new patient Social History Sex Assigned At : Social History Observation Description Sex Assigned At Female Encounters Encounter Location Date Provider Diagnosis [address] [place] [address] 09/29/2024 Leandro Harris Plan Of Treatment No Information Progress Notes * JENNYFERJaycee SCHULZDOB:1980 (44 yo F)Acc No.[id number]:09/29/2024 UNLOCKED PROGRESS NOTE Patient: Jaycee AYALA Provider: Sasha Harris DNP, PMHNP-BC :1980 A ge:44 Y S ex:Female Date:09/29/2024 [facility] [facility] Pcp:Alana Epps Subjective: * Chief Complaints: * 1 . New patient. * Medical History: Objective: * Vitals: Assessment: Plan: * Treatment: * * Electronic signature of Kanu Harris APRN, [id number] on 12/26/2024 at 04:05 PM AGING ROOM OPERATOR Sign off status: Pending * Provider: Sasha Harris DNP, PMHNP-BC Date: 0 09/29/2024 Generated for Roland felder/Karina/eTransmitting on: 02/26/2024 04:05 PM AGING ROOM OPERATOR
--- OUTSIDE RECORDS SUMMARY | 2024-10-06 02:20 | XMS_ITS ---
Author Organization [facility] Address [address] [place] [address] Care Team Providers Care Certifier Name Role Phone Alana Epps Primary Care Provider [phone] REASON FOR VISIT 1 week f/u Social History Sex Assigned At : Social History Observation Description Sex Assigned At Female Encounters Encounter Location Date Provider Diagnosis [place] [address] [facility] [place] [address] 10/06/2024 Alana Epps Plan Of Treatment No Information Progress Notes * Jaycee ROUSEDOB:1980 (44 yo F)Acc No.[id number]:10/06/2024 UNLOCKED PROGRESS NOTE Patient: Jaycee AYALA Provider: Sasha Epps MSN, CAPTAIN WAITER/WAITRESS, LIBRARIAN HEAD-C :1980 A ge:44 Y S ex:Female Date:10/06/2024 [facility] Subjective: * Chief Complaints: * 1 . 1 week f/u. * Medical History: Objective: * Vitals: Assessment: Plan: * Treatment: * Care Plan Details* * Electronic signature of Guera Epps APRN, [id number] on 12/26/2024 at 03:56 PM PRODUCTION CONTROL EXPEDITER Sign off status: Pending * Provider: Sasha Epps, MSN, CAPTAIN WAITER/WAITRESS, LIBRARIAN HEAD-C Date: 0 10/06/2024 Generated for Roland felder/Karina/eTransmitting on: 1 02/26/2024 03:56 PM PRODUCTION CONTROL EXPEDITER
--- OUTSIDE RECORDS SUMMARY | 2024-12-24 14:59 | XMS_ITS | Encounter Summary ---
Author Organization [facility] Address [facility] [place] [address] Care Team Providers Care Business Office Representative Name Role Phone Delisa May [facility] Primary Care Provider Reason for Referral * Imaging (Urgent) - New Request Specialty Diagnoses / Procedures Referred By Contjose t Referred To Contact RADIOLOGY Procedures CTA CHEST Salo Dillon MD [address] [place] [address] Phone: tel: fax: Referral ID Status Reason Start Date Expiration Date V isits Requested Visits Authorized [id number] New Request 12/24/2024 12/24/2025 1 1 Reason for Visit * Reason Comments Chest Pain Encounter Details Date Type Department Care Team (Late st Contact Info) Description 12/24/2024 3:59 PM CDT - 12/24/2024 8:20 PM CDT Emergency [facility] Emergency Room [address] [place] [address] Salo Dillon MD [address] [place] [address] Keiko Altamirano MD [address] [place] [address] Chest Pain Discharge Disposition: Home or Self Care (Routine Discharge) Social History Tobacco Use Types Packs/Day Years Used Date Smoking Tobacco: Every Day Cigarettes Smokeless Tobacco: Never Alcohol Use Standard Drinks/Week Comments Not Currently [...] any time in the past 12 m [facility], were you homeless or living in a longterm (including now)? Yes 10/13/2023 Comments No Sex and Gender Information Value Date Recorded Sex Assigned at Female 10/17/2024 3:24 PM CDT Legal Sex Female 11:36 PM CDT Gender Identity Female 12/25/2024 10:22 PM [employer] Sexual Orientation Straight 12/25/2024 10 :22 PM [employer] documented as of this encounter Last Filed Vital Signs Vital Sign Reading Time Taken Comments Blood Pressure 107/50 12/24/2024 6:26 PM CDT Pulse 63 12/24/2024 6:26 PM CDT Temperature 36.1 C (97 F) 12/24/2024 6:26 PM CDT Respiratory Rate 20 12/24/2024 6:26 PM CDT Oxygen Saturation 97% 12/24/2024 6:26 PM CDT Inhaled Oxygen Concentration - - Weight 52.2 kg (115 lb) 12/24/2024 3:58 PM CDT Height 154.9 cm (5' 1) 12/24/2024 3:58 PM CDT Body Mass Index 21.73 12/24/2024 3:58 PM CDT documented in this encounter Functional [...] of Assessment Author Status No Risk Indicated 12/24/2024 4:00 PM FARAT Jazmin Daley RN Active * [facility] Suicide Severity Rating Scale (Screener/Recent Self-Report) Question Answer Date of Assessment Author Status 1. Wish to be (Past 1 Month) No 12/24/2024 4:00 PM Filomena Joshua RN Ac tive 2. Non-Specific Active Suicidal Thoughts (Past 1 Month) No 12/24/2024 4:00 PM Filomena Joshua RN Ac tive 6. Suicidal Behavior (Lifetime) No 12/24/2024 4:00 PM Filomena Joshua RN Ac tive documented as of this encounter Mental Status * Because of a physical, mental, or emotional condition, do you have serious difficulty concentrating, remembering, or making decisions? Answer Entry Date Author Status No 10/13/2023 6:54 AM Lina Lyman RN Active documented in this encounter Discharge Instructions * Attachments The following attachments cannot be sent through Care Everywhere. * Chest Pain (Jordanian) documented in this encounter Medications at Time of Discharge buprenorphine-nal oxone (SUBOXONE) 4 mg-[address] 1 Film under the tongue 2 (two) times a day. 09/29/2024 cyclobenzaprine (FLEXERIL) 10 MG tablet Take 1 tablet (10 mg total) by mouth 3 (three) times daily as needed for Muscle Spasms. 15 tablet 12/18/2024 12/28/2024 predniSONE 50 MG tablet Take 1 tablet (50 mg total) by mouth daily for 10 days. 10 tablet 12/15/2024 12/25/2024 documented as of this encounter ED Notes * Karo Pena RN - 12/24/2024 8:16 PM CDTSummary: discharge Patient refused discharge instructions/ discharge papers at time of discharge. Patient refused to provide multiple contacts for transport, patient irate with staff. Patient uncooperative at time of discharge. Patient was able to ambulate with steady unassisted gait towards the exit of the ed with her belongings. * Karo Pena RN - 12/24/2024 8:04 PM CDTSummary: patient discharge Patient verbally irritated with staff attempting to find her a ride/ person to pick her up. Patientdenying to provide other contacts to call. Patient demanding staff provide her with a ride home/ cold lunch to leave. Patient then refusing to sign discharge papers at this time. Patient verbalized being unhappy with discharge and felt care was not provided to her. * Keiko Altamirano MD - 12/24/2024 7:29 PM CDT Emergency Department Assumed Care Note Patient signed out to me by Dr Dillon. Briefly, Jj Slater is a 44-year-old female is being evaluated for chest pain in the setting ofmethamphetamine use. Vitals: 12/24/24 1826 BP: 107/50 Pulse: 63 Resp: 20 Temp: 97 ??F (36.1 ??C) SpO2: 97% Thus far, studies reveal: Negative troponin, anemia at baseline, CTA negative. She was treated withAtivan. Now sleeping. Plan from sign out is: Once awake, can be discharged home. Progress notes: ED Course as of 12/24/242245 Sat Dec 24, 20241951 Patient reassessed. Now awake and alert. Pain improved. Discharged with strict return precautions. [AP] ED Course User Index [AP] Keiko Altamirano MD Clinical impression: SNOMED CT(R) 1. Chest pain, unspecified type CHEST PAIN Disposition: Discharge KEIKO ALTAMIRANO MD 12/24/2024 Keiko Altamirano MD 12/24/242245 * Karo Pena RN - 12/24/2024 7:12 PM CDTSummary: patient request Patient requests to call Julio C [phone] to obtain transport. Patient refusing to give more information at this time. Patient states, I am tired * Salo Dillon MD - 12/24/2024 4:05 PM CDT Chief Complaint Chief Complaint Patient presents with ??? 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 with PMH of hypertension, depression, anxiety, bipolar disorder who presents to the ER complaining of chest pain Dull pain No nausea vomiting, SOB or diaphoresis Exacerbating factors: None Alleviating factors: None Filed Vitals: 12/24/24 1558 BP: 132/70 Pulse: 70 Resp: 16 Temp: 96.9 ??F (36.1 ??C) SpO2: 99% Weight: 52.2 kg (115 lb) Height: 1.549 m (5' 1) On examination Remarkably well looking patient No jaundice, pallor, cyanosis, scleral icterus Trachea central Equal air entry bilaterally CTA S1 S2 Abdomen soft nontender No pretibial pitting edema Differential diagnosis chest pain clues [place], PE, dissection, pericarditis, myocarditis, pneumothorax, esophageal pathology, pancreatitis No dyspnea, no tachypnea, no tachycardia, no risk factors and normal O2 sat. PE unlikely Patient does not describe a tearing pain radiating to the back. Pulses equal bilaterally. Dissection unlikely Medical History ALLERGIES: Review of patient's allergies indicates: Allergen Reactions ??? Codeine Anaphylaxis and Shortness of Breath ??? Ketorolac Other (see comment) Rapid Heart Rate ??? Naproxen GI Upset No problems with Ibuprofen ??? Penicillins Unknown MEDICATIONS: Prior to Admission medications Medication Sig Start Date End Date Taking? Authorizing Provider buprenorphine-naloxone (SUBOXONE) 4 mg-[address] 1 Film under the tongue 2 (two) times aday. 09/29/24 Default History Genericprovider cyclobenzaprine (FLEXERIL) 10 MG tablet Take 1 tablet (10 mg total) by mouth 3 (three) times daily as needed for Muscle Spasms. Patient not taking: Reported on 12/23/2024 12/18/24 12/28/24 Billy Camacho DO [place] predniSONE 50 MG tablet Take 1 tablet (50 mg total) by mouth daily for 10 days. Patient not taking: Reported on 12/23/2024 12/15/24 12/25/24 Jens Mendoza MD PAST MEDICAL HISTORY: Past Medical History[1] PAST SURGICAL HISTORY: Past Surgical History[2] FAMILY HISTORY: Family History[3] SOCIAL HISTORY: Social History[4] Review of Systems Review of Systems Physical Exam Filed Vitals: 12/24/24 1639 12/24/24 1640 12/24/24 1655 12/24/24 1700 BP: 113/68 112/63 Pulse: 63 65 64 61 Resp: 15 13 13 14 Temp: SpO2: 99% 98% 98% 98% Weight: Height: Physical Exam Diagnostic Studies / Procedures ELECTROCARDIOGRAMS: Results for orders placed or performed during the hospital encounter of 12/24/24 ECG 12 lead Result Value Ref Range ECG QT 390 ECG QTC 386 Narrative [facility] Test Date: 2024-12-24 Pat Name: JJ SLATER Department: 85 Room: [place] [address] Gender: Female Location Manager: : 1980 Requested By: SALO DILLON Order Number: [id number] Reading MD: Measurements Intervals [place] Rate: 58 P: 66 WV: 123 QRS: 67 QRSD: 90 T: 61 QT: 390 QTc: 386 Interpretive Statements SINUS BRADYCARDIA Compared to ECG 12/23/2024 14:40:13 Sinus rhythm no longer present LABORATORY STUDIES: Results for orders placed or performed during the hospital encounter of 12/24/24 CBC W/DIFF AUTOMATED Result Value Ref Range WBC 5.15 4.4 - 11.0 x10'3/uL RBC 3.80 (L) 4.50 - 5.10 x10'6/uL HGB 11.6 (L) 12.3 - 15.3 G/DL HCT 35.3 (L) 35.9 - 44.6 % MCV 92.9 80.0 - 96.0 FL MCH 30.5 25.3 - 30.9 PG MCHC 32.9 31.0 - 34.1 G/DL RDW 13.2 12.4 - 15.1 % PLT 337 151 - 353 x10'3/uL MPV 9.6 9.6 - 12.0 FL RBC MORPHOLOGY NORMAL PLT MORPH. NORMAL WBC MORPHOLOGY NORMAL LYMPHOCYTES % 29.5 15.8 - 45.0 % NEUTROPHILS % 59.4 42.1 - 71.9 % MONOCYTES % 8.7 5.7 - 12.5 % EOSINOPHILS 1.2 0.0 - 5.6 % BASOPHILS 1.0 0.0 - 1.3 % ABS. NEUTROPHILS 3.06 1.40 - 6.00 x10'3/uL IMMATURE GRANS % 0.2 0.0 - 0.5 % ABS. LYMPHOCYTES 1.52 0.80 - 4.70 x10'3/uL COMPREHENSIVE METABOLIC PANEL Result Value Ref Range GLUCOSE 84 70 - 99 MG/DL BUN 21 (H) 7 - 18 MG/DL CREATININE S/P/B 0.78 0.55 - 1.02 MG/DL SODIUM S/P/B 139 136 - 145 MMOL/L POTASSIUM S/P/B 4.0 3.5 - 5.1 MMOL/L CHLORIDE S/P/B 103 100 - 108 MMOL/L CO2 31.8 21 - 32 MMOL/L CALCIUM S/P/B 8.5 8.5 - 10.1 MG/DL BILIRUBIN TOTAL S/P/B 0.5 0.2 - 1.2 MG/DL TOTAL PROTEIN S/P/B 6.4 6.4 - 8.2 G/DL ALBUMIN S/P/B 3.4 3.4 - 5.0 G/DL AST 11 (L) 15 - 37 U/L ALT 12 (L) 14 - 55 U/L ALKALINE PHOSPHATASE S/P/B 71 50 - 136 U/L ANION GAP 4.2 (L) 5 - 15 MMOL/L BUN CREATININE RATIO 26.9 (H) 6 - 26 A/G RATIO 1.1 1.0 - 2.0 RATIO GFR ESTIMATE >90 >90 ML/MIN/1.73 M2 TROPONIN, QUANT Result Value Ref Range TROPONIN I HIGH SENSITIVITY 6 0 - 50 ng/L LIPASE Result Value Ref Range LIPASE 63 16 - 77 UNITS/L PROTIME/INR, VENOUS Result Value Ref Range PROTIME 12.3 9.1 - 12.4 SEC INR 1.1 ECG 12 lead Result Value Ref Range ECG QT 390 ECG QTC 386 IMAGING STUDIES CTA CHEST Final Result by User, [email or web address] (12/24 1806) [facility] [address] [place] [address] Examination: CTA CHEST Clinical history: Chest pain Comparison: 10/13/2023 DATE/TIME: 12/24/2024 5:31 PM Technique: Multiplanar images of the chest were obtained following the uneventful intravenous administration of 60 mL Isovue 370. 3D Post-processed images were reconstructed on an independent workstation. A dose lowering technique was used for this procedure, which may include, but is not limited to, dose reduction technique, automated exposure control, the use of iterative reconstruction, and ALARA (As Low As Reasonably Achievable) / Image Gently techniques. Findings: Since there is poor pulmonary opacification. No evidence of large, central pulmonary embolism. Evaluation for lobar, segmental and subsegmental emboli is limited. If concern for PE remains high could consider nuclear medicine perfusion scan or repeat attempt at CTA. Heart size is normal. Thoracic aorta is normal caliber without evidence of dissection. No pericardial effusion. No mediastinal or hilar lymphadenopathy. No pulmonary consolidation, pleural effusion or pneumothorax. There is a 9 mm noncalcified left lower lobe superior segment nodule, stable since 10/13/2023 and indeterminate. Recommend continued surveillance to demonstrate two-year stability from 10/13/2023 concordant in flexion Society guidelines.. No evidence of significant emphysema or fibrosis. No acute osseous abnormality. IMPRESSION: 1. Technically limited evaluation for pulmonary embolism. 2. Stable 9 mm lung nodule. Recommend continued surveillance as above. Referred By: Interpreted By: Everett Peterson MD, 12/24/2024 5:56 PM XR CHEST PORTABLE Final Result by User, [id number] (12/25 1643) [facility] [address] [place] [address] Examination: XR CHEST PORTABLE Exam time: 12/24/2024 4:14 PM Clinical history: Chest pain. Comparison: 12/23/2024. Technique: AP portable upright radiograph of the chest. Findings: Normal heart size. Normal distribution of the pulmonary vasculature. No focal parenchymal lung consolidation, pleural effusion, or pneumothorax. No acute osseous findings. Surgical clips noted in the upper abdomen. IMPRESSION: No radiographic evidence of an acute cardiopulmonary abnormality. Dictated By: Lulu Wolff MD on 12/24/2024 4:34 PM The attending radiologist has reviewed the image(s) and agrees with the content of this report. Ordered By: SALO DILLON Interpreted By: Lulu Wolff MD, 12/24/2024 4:34 PM ED Course / Medical Decision Making Medical Decision Making Amount and/or Complexity of Data Reviewed Labs: ordered. Radiology: ordered. ECG/medicine tests: ordered. O2 sat 98% RA normal Triage note noted Labs hemoglobin 11.6. Otherwise CBC, CMP, lipase, troponin unremarkable. Radiology CTA chest negative for PE and dissection D/W patient Sinus rhythm Rate: 58 normal P waves, normal WV, normal QRS, normal QT, normal T waves. No ST elevation or depression. Normal axis Rhythm Strip: Sinus rhythm. Rate: 58 no arrhythmia, No extrasystoles ED Course as of 12/24/241957 Sat Dec 24, 20241951 Patient reassessed. Now awake and alert. Pain improved. Discharged with strict return precautions. [AP] ED Course User Index [AP] Keiko Altamirano MD Clinical Impression Chest pain, unspecified type (Primary) Disposition: Discharge Salo Dillon MD 12/24/241810 [1] Past Medical History: Diagnosis Date ??? Manic depression (CMS/HCC HHS/HCC) [2] Past Surgical History: Procedure Laterality Date ??? SECTION x3 ??? FRACTURE SURGERY Right hand surgery [3] No family history on file. [4] Social History Tobacco Use ??? Smoking status: Every Day Current packs/day: 1.00 Types: Cigarettes ??? Smokeless tobacco: Never Vaping Use ??? Vaping status: Some Days ??? Substances: Nicotine Substance Use Topics ??? Alcohol use: Not Currently ??? Drug use: Yes Types: Methamphetamines, Marijuana * Filomena Daley RN - 12/24/2024 4:01 PM CDT 44 year old female in with complaints of chest pain x last several months. Patient rates pain a 4/10 at this time. Patient arrives via EMS from home. documented in this encounter Plan of Treatment Not on file documented as of this encounter Procedures Procedure Name Priority Date/Time Associated Diagnosis Comments CTA CHEST STAT 12/24/2024 5:42 PM CDT XR CHEST PORTABLE STAT 12/24/2024 4:3 1 PM CDT ECG 12-LEAD STAT 12/24/2024 4:10 PM CDT PROTHROMBIN TIME, VENOUS STAT 12/24/2024 4:10 PM CDT COMPREHENSIVE METABOLIC PANEL STAT 12/24/2024 4:10 PM CDT CBC W/DIFF AUTOMATED STAT 12/24/2024 4:10 PM CDT TROPONIN, QUANT STAT 12/24/2024 4:10 PM CDT LIPASE STAT 12/24/2024 4:10 PM CDT documented in this encounter Results * CTA CHEST (12/24/2024 5:42 PM CDT) Anatomical Region Laterality Modality Chest Computed Tomogra phy 12/24/2024 5:56 PM CDT Impressions 12/24/2024 6:02 PM CDT IMPRESSION: 1. Technically limited evaluation for pulmonary embolism. 2. Stable 9 mm lung nodule. Recommend continued surveillance as above. Referred By: Interpreted By: Everett Peterson MD, 12/24/2024 5:56 PM Narrative 12/24/2024 6:02 PM CDT [facility] [address] [place] [address] Examination: CTA CHEST Clinical history: Chest pain Comparison: 10/13/2023 DATE/TIME: 12/24/2024 5:31 PM Technique: Multiplanar images of the chest were obtained following the uneventful intravenous administration of 60 mL Isovue 370. 3D Post-processed images were reconstructed on an independent workstation. A dose lowering technique was used for this procedure, which may include, but is not limited to, dose reduction technique, automated exposure control, the use of iterative reconstruction, and ALARA (As Low As Reasonably Achievable) / Image Gently techniques. Findings: Since there is poor pulmonary opacification. No evidence of large, central pulmonary embolism. Evaluation for lobar, segmental and subsegmental emboli is limited. If concern for PE remains high could consider nuclear medicine perfusion scan or repeat attempt at CTA. Heart size is normal. Thoracic aorta is normal caliber without evidence of dissection. No pericardial effusion. No mediastinal or hilar lymphadenopathy. No pulmonary consolidation, pleural effusion or pneumothorax. There is a 9 mm noncalcified left lower lobe superior segment nodule, stable since 10/13/2023 and indeterminate. Recommend continued surveillance to demonstrate two-year stability from 10/13/2023 concordant in flexion Society guidelines.. No evidence of significant emphysema or fibrosis. No acute osseous abnormality. Procedure Note Everett Peterson MD - 12/24/2024 [facility] [address] [place] [address] Examination: CTA CHEST Clinical history: Chest pain Comparison: 10/13/2023 DATE/TIME: 12/24/2024 5:31 PM Technique: Multiplanar images of the chest were obtained following theuneventful intravenous administration of 60 mL Isovue 370. 3DPost-processed images were reconstructed on an independent workstation. Adose lowering technique was used for this procedure, which may include,but is not limited to, dose reduction technique, automated exposurecontrol, the use of iterative reconstruction, and ALARA (As Low AsReasonably Achievable) / Image Gently techniques. Findings: Since there is poor pulmonary opacification. No evidence oflarge, central pulmonary embolism. Evaluation for lobar, segmental andsubsegmental emboli is limited. If concern for PE remains high couldconsider nuclear medicine perfusion scan or repeat attempt at CTA. Heart size is normal. Thoracic aorta is normal caliber without evidence ofdissection. No pericardial effusion. No mediastinal or hilarlymphadenopathy. No pulmonary consolidation, pleural effusion or pneumothorax. There is a 9mm noncalcified left lower lobe superior segment nodule, stable since10/13/2023 and indeterminate. Recommend continued surveillance todemonstrate two-year stability from 10/13/2023 concordant in flexionSociety guidelines.. No evidence of significant emphysema or fibrosis. No acute osseous abnormality. IMPRESSION: 1. Technically limited evaluation for pulmonary embolism. 2. Stable 9 mm lung nodule. Recommend continued surveillance as above. Referred By: Interpreted By: Everett Peterson MD, 12/24/2024 5:56 PM Salo Dillon MD CT Final Result * XR CHEST PORTABLE (12/24/2024 4:31 PM CDT) Anatomical Region Laterality Modality Chest Radiographic Daniella ging 12/24/2024 4:34 PM CDT Impressions 12/24/2024 4:41 PM CDT IMPRESSION: No radiographic evidence of an acute cardiopulmonary abnormality. Dictated By: Lulu Wolff MD on 12/24/2024 4:34 PM The attending radiologist has reviewed the image(s) and agrees with the content of this report. Ordered By: SALO DILLON Interpreted By: Lulu Wolff MD, 12/24/2024 4:34 PM Narrative 12/24/2024 4:41 PM CDT [facility] [address] [place] [address] Examination: XR CHEST PORTABLE Exam time: 12/24/2024 4:14 PM Clinical history: Chest pain. Comparison: 12/23/2024. Technique: AP portable upright radiograph of the chest. Findings: Normal heart size. Normal distribution of the pulmonary vasculature. No focal parenchymal lung consolidation, pleural effusion, or pneumothorax. No acute osseous findings. Surgical clips noted in the upper abdomen. Procedure Note Juan Alberto Meier MD - 12/24/2024 [facility] [address] [place] [address] Examination: XR CHEST PORTABLE Exam time: 12/24/2024 4:14 PM Clinical history: Chest pain. Comparison: 12/23/2024. Technique: AP portable upright radiograph of the chest. Findings: Normal heart size. Normal distribution of the pulmonary vasculature. Nofocal parenchymal lung consolidation, pleural effusion, or pneumothorax.No acute osseous findings. Surgical clips noted in the upper abdomen. IMPRESSION: No radiographic evidence of an acute cardiopulmonary abnormality. Dictated By: Lulu Wolff MD on 12/24/2024 4:34 PM The attending radiologist has reviewed the image(s) and agrees with thecontent of this report. Ordered By: SALO DILLON Interpreted By: Lulu Wolff MD, 12/24/2024 4:34 PM Salo Dillon MD GENERAL IMAGING Final Result * ECG 12 lead (12/24/2024 4:10 PM CDT) ECG QT 390 [facility] RAD ECG QTC 386 [facility] ([facility] RAD 12/24/2024 4:10 PM CDT Narrative [facility] ([facility] RAD - 12/25/2024 10:09 AM [employer] [facility] Test Date: 2024-12-24 Pat Name: JJ SLATER Department: 85 Room: EXAM 303 Gender: Female Location Manager: : 1980 Requested By: SALO DILLON Order Number: [id number] Reading MD: Bubba Reyes Measurements Intervals [place] Rate: 58 P: 66 WV: 123 QRS: 67 QRSD: 90 T: 61 QT: 390 QTc: 386 Interpretive Statements SINUS BRADYCARDIA Compared to ECG 12/23/2024 14:40:13 Sinus rhythm no longer present [employer]OR [employer]KER Procedure Note Reyes, Bubba Lang, MD - 12/25/2024 [facility] Test Date: 2024-12-24 Pat Name: JJ SLATER Department: 85 Room: EXAM 303 Gender: Female Location Manager: : 1980 Requested By: SALO DILLON Order Number: [id number] Reading MD: Bubba Reyes Measurements Intervals [place] Rate: 58 P: 66 WV: 123 QRS: 67 QRSD: 90 T: 61 QT: 390 QTc: 386 Interpretive Statements SINUS BRADYCARDIA Compared to ECG 12/23/2024 14:40:13 Sinus rhythm no longer present [employer] Salo Dillon MD ECG ORDERABLES Final Result Performing Organization Address [facility]/ZIP Co de Phone Number [facility]) RAD * PROTIME/INR, VENOUS (12/24/2024 4:10 PM CDT) PROTIME 12.3 9.1 - 12.4 SEC 12/24/2024 4:46 PM CDT [facility] INR 1.1 12/24/2024 4:46 PM CDT [facility] Comment: Recommend INR ranges for Oral Anticoagulant Therapy: Mechanical Cardiac Values 2.5-3.5 All others indication 2.0-3.0 12/24/2024 4:10 PM CDT Salo Dillon MD LABORATORY Final Result [facility] [address] [place] [address], * LIPASE (12/24/2024 4:10 PM CDT) LIPASE 63 16 - 77 UNITS/L 12/24/2024 4:35 PM CDT [facility] 12/24/2024 4:10 PM CDT us Salo Dillon MD LABORATORY Final Result Performing Organization Address [facility] Co de Phone Number [facility] [address] [place] [address], [place] [phone] * TROPONIN, QUANT (12/24/2024 4:10 PM CDT) Pathologist [facility] TROPONIN I HIGH SENSITIVITY 6 0 - 50 ng/L 12/24/2024 4:38 PM CDT [facility] Comment: HIGH DOSES OF BIOTIN, TROPONIN-SPECIFIC AUTOANTIBODIES, AND ANTIBODY THERAPY CONTAINING HAMA MAY INTERFERE WITH THIS TEST RESULT. CORRELATION TO CLINICAL HISTORY AND PRESENTATION RECOMMENDED. 12/24/2024 4:10 PM CDT us aSlo Dillon MD LABORATORY Final Result Performing Organization Address [facility] Co de Phone Number [facility] [address] [place] [address], [place] [phone] * (ABNORMAL) COMPREHENSIVE METABOLIC PANEL (12/24/2024 4:10 PM CDT) [facility] GLUCOSE 84 70 - 99 MG/DL 12/24/2024 4:35 PM CDT [facility] BUN 21(H) 7 - 18 MG/DL 12/24/2024 4:35 PM CDT [facility] CREATININE S/P/B 0.78 0.55 - 1.02 MG/DL 12/24/2024 4:35 PM CDT [facility] SODIUM S/P/B 139 136 - 145 MMOL/L 12/24/2024 4:35 PM CDT [facility] POTASSIUM S/P/B 4.0 3.5 - 5.1 MMOL/L 12/24/2024 4:35 PM CDT [facility] CHLORIDE S/P/B 103 100 - 108 MMOL/L 12/24/2024 4:35 PM [facility] CO2 31.8 21 - 32 MMOL/L 12/24/2024 4:35 PM [facility] CALCIUM S/P/B 8.5 8.5 - 10.1 MG/DL 12/24/2024 4:35 PM [facility] BILIRUBIN TOTAL S/P/B 0.5 0.2 - 1.2 MG/DL 12/24/2024 4:35 PM [facility] TOTAL PROTEIN S/P/B 6.4 6.4 - 8.2 G/DL 12/24/2024 4:35 PM [facility] ALBUMIN S/P/B 3.4 3.4 - 5.0 G/DL 12/24/2024 4:35 PM [facility] AST 11(L) 15 - 37 U/L 12/24/2024 4:35 PM [facility] ALT 12(L) 14 - 55 U/L 12/24/2024 4:35 PM [facility] ALKALINE PHOSPHATASE S/P/B 71 50 - 136 U/L 12/24/2024 4:35 PM [facility] ANION GAP 4.2(L) 5 - 15 MMOL/L 12/24/2024 4:35 PM [facility] BUN CREATININE RATIO 26.9(H) 6 - 26 12/24/2024 4:35 PM [facility] A/G RATIO 1.1 1.0 - 2.0 RATIO 12/24/2024 4:35 PM [facility] GFR ESTIMATE >90 >90 ML/MIN/1.7 3 M2 12/24/2024 4:35 PM CDT [facility] Comment: NOTE: eGFR is not calculated for patients <18 years of age. This is an estimated GFR calculation using the new CKD EPI creatinine equation without race and so does not require a correction factor for race. This estimated GFR should not be used for calculating drug doses. 12/24/2024 4:10 PM CDT Salo Dillon MD LABORATORY Final Result [facility] [address] [place] [address], [place] [phone] * (ABNORMAL) CBC W/DIFF AUTOMATED (12/24/2024 4:10 PM CDT) WBC 5.15 4.4 - 11.0 x10'3/uL 12/24/2024 4:23 PM CDT [facility] RBC 3.80(L) 4.50 - 5.10 x10'6/uL 12/24/2024 4:23 PM CDT [facility] HGB 11.6(L) 12.3 - 15.3 G/DL 12/24/2024 4:23 PM CDT [facility] HCT 35.3(L) 35.9 - 44.6 % 12/24/2024 4:23 PM CDT [facility] MCV 92.9 80.0 - 96.0 FL 12/24/2024 4:23 PM CDT [facility] MCH 30.5 25.3 - 30.9 PG 12/24/2024 4:23 PM CDT [facility] MCHC 32.9 31.0 - 34.1 G/DL 12/24/2024 4:23 PM CDT [facility] RDW 13.2 12.4 - 15.1 % 12/24/2024 4:23 PM CDT [facility] PLT 337 151 - 353 x10'3/uL 12/24/2024 4:23 PM CDT [facility] MPV 9.6 9.6 - 12.0 FL 12/24/2024 4:23 PM CDT [facility] RBC MORPHOLOGY NORMAL 12/24/2024 4:23 PM CDT [facility] PLT MORPH. NORMAL 12/24/2024 4:23 PM T [facility] WBC MORPHOLOGY NORMAL 12/24/2024 4:23 PM CDT [facility] LYMPHOCYTES % 29.5 15.8 - 45.0 % 12/24/2024 4:23 PM CDT [facility] NEUTROPHILS % 59.4 42.1 - 71.9 % 12/24/2024 4:23 PM CDT [facility] MONOCYTES % 8.7 5.7 - 12.5 % 12/24/2024 4:23 PM CDT [facility] EOSINOPHILS 1.2 0.0 - 5.6 % 12/24/2024 4:23 PM CDT [facility] BASOPHILS 1.0 0.0 - 1.3 % 12/24/2024 4:23 PM CDT [facility] ABS. NEUTROPHILS 3.06 1.40 - 6.00 x10'3/uL 12/24/2024 4:23 PM T [facility] IMMATURE GRANS % 0.2 0.0 - 0.5 % 12/24/2024 4:23 PM T [facility] ABS. LYMPHOCYTES 1.52 0.80 - 4.70 x10'3/uL 12/24/2024 4:23 PM CDT [facility] 12/24/2024 4:10 PM CDT Salo Dillon MD LABORATORY Final Result [facility] [address] [facility] [place] [address], [place] [phone] documented in this encounter Visit Diagnoses Diagnosis Chest pain, unspecified type- Primary documented in this encounter Administered Medications Inactive Administered Medications - up to 3 most recent administrations Medication Order MAR Action Action Date Dose Rate Site iopamidol (ISOVUE-370) 76 % injection 60 mL 60 mL, Intravenous, IMG once as needed, Contrast, 1 dose, Starting on 12/24/24 at 1743, Until 12/24/24 at 1735 Given 12/24/2024 5:35 PM CDT 60 mLs Left Arm LORazepam (ATIVAN) injection 2 mg 2 mg, Intravenous, Once, 1 dose, On 12/24/24 at 1615, For IV use, further dilute with an equal volume of saline. Do not exceed a rate of 2 mg/min. Given 12/24/2024 4:33 PM CDT 2 mg documented in this encounter Active and Recently Administered Medications Times are shown in CDT. Scheduled Medication Order 12/22/2024 12/23/2024 12/24/2024 LORazepam (ATIVAN) injection 2 mg (COMPLETED) 2 mg, Intravenous, Once, 1 dose, On 12/24/24 at 1615, For IV use, further dilute with an equal volume of saline. Do not exceed a rate of 2 mg/min. 1633 (Given - Provid er: Filomena Daley RN) PRN Medication Order 12/22/2024 12/23/2024 12/24/2024 iopamidol (ISOVUE-370) 76 % injection 60 mL (COMPLETED) 60 mL, Intravenous, IMG once as needed, Contrast, 1 dose, Starting on 12/24/24 at 1743, Until 12/24/24 at 1735 1735 (Given - Provid er: Evelia Sims RTR) documented in this encounter Care Teams Business Office Representative Relationship Specialty Start Date End Date DelisaMay, CHIP [address] [place] [id number] PCP - General Nurse Practitioner Family 12/23/24 documented as of this encounter
--- OUTSIDE RECORDS SUMMARY | 2024-12-24 14:59 | XMS_ITS | Encounter Summary ---
Author Organization [facility] Address [facility] [place] [address] Care Team Providers Care Engineering Mathematician Name Role Phone Delisa May [facility] Primary Care Provider [phone] Reason for Referral * Imaging (Urgent) - New Request Specialty Diagnoses / Procedures Referred By Contjose t Referred To Contact RADIOLOGY Procedures CTA CHEST Salo Dillon MD [address] [place] [address] Phone: tel: fax: Referral ID Status Reason Start Date Expiration Date V isits Requested Visits Authorized [id number] New Request 12/24/2024 12/24/2025 1 1 Reason for Visit * Reason Comments Chest Pain Encounter Details Date Type Department Care Team (Late st Contact Info) Description 12/24/2024 3:59 PM CDT - 12/24/2024 8:20 PM CDT Emergency [facility] Emergency Room [address] [place] [address] Salo Dillon MD [address] [place] [address] Keiko Altamirano MD [address] [place] [address] Chest Pain Discharge Disposition: Home or Self Care (Routine Discharge) Social History Tobacco Use Types Packs/Day Years Used Date Smoking Tobacco: Every Day Cigarettes Smokeless Tobacco: Never Alcohol Use Standard Drinks/Week Comments Not Currently 0 (1 standard drink = 0.6 oz pur e alcohol) [facility] Utilities Answer Date Recorded In the [...] any time in the past 12 m [facility], were you homeless or living in a care home (including now)? Yes 10/13/2023 Comments No Sex and Gender Information Value Date Recorded Sex Assigned at Female 10/17/2024 3:24 PM CDT Legal Sex Female 11:36 PM CDT Gender Identity Female 12/25/2024 10:22 PM NOTCH MACHINE OPERATOR Sexual Orientation Straight 12/25/2024 10 :22 PM NOTCH MACHINE OPERATOR documented as of this encounter Last Filed [...] PM FARAT Jazmin Daley RN Active * [place] Suicide Severity Rating Scale (Screener/Recent Self-Report) Question [...] sent through Care Everywhere. * Chest Pain ([place]) documented in this encounter Medications at Time [...] 12/24/2024 Keiko Altamirano MD 12/24/242245 * Karo Pean RN - 12/24/2024 7:12 PM CDTSummary: patient request Patient requests to call Julio C [phone] to obtain transport. Patient refusing to give [...] pitting edema Differential diagnosis chest pain clues CA, PE, dissection, pericarditis, myocarditis, pneumothorax, esophageal pathology, [...] ECG QT 390 ECG QTC 386 Narrative [facility] Test Date: 2024-12-24 Pat Name: JJ SLATER Department: 85 Room: [place] [address] Gender: Female Vice President Of Compliance: : 1980 Requested By: SALO DILLON Order Number: [id number] Reading MD: Measurements Intervals [place] Rate: 58 P: 66 IA: 123 QRS: 67 QRSD: 90 T: 61 [...] STUDIES CTA CHEST Final Result by User, [email or web address] (12/24 1806) [facility] [address] [place] [address] Examination: CTA CHEST Clinical history: Chest pain [...] XR CHEST PORTABLE Final Result by User, [email or web address] (12/25 1643) [facility] [address] [place] [address] Examination: XR CHEST PORTABLE Exam time: 12/24/2024 [...] rhythm Rate: 58 normal P waves, normal IA, normal QRS, normal QT, normal T waves. [...] 5:56 PM Narrative 12/24/2024 6:02 PM CDT [facility] [address] [place] [address] Examination: CTA CHEST Clinical history: Chest pain [...] Procedure Note Everett Peterson MD - 12/24/2024 [facility] [address] [place] [address] Examination: CTA CHEST Clinical history: Chest pain [...] 4:34 PM Narrative 12/24/2024 4:41 PM CDT [facility] [address] [place] [address] Examination: XR CHEST PORTABLE Exam time: 12/24/2024 4:14 PM Clinical history: Chest pain. Comparison: 12/23/2024. Technique: AP portable upright radiograph of the chest. Findings: Normal heart size. Normal distribution of the pulmonary vasculature. No focal parenchymal lung consolidation, pleural effusion, or pneumothorax. No acute osseous findings. Surgical clips noted in the upper abdomen. Procedure Note Juan Alberto Meier MD - 12/24/2024 [facility] [address] [place] [address] Examination: XR CHEST PORTABLE Exam time: 12/24/2024 [...] (12/24/2024 4:10 PM CDT) ECG QT 390 [facility] ECG QTC 386 [facility] 12/24/2024 4:10 PM CDT Narrative [facility] RAD - 12/25/2024 10:09 AM NOTCH MACHINE OPERATOR [facility] Test Date: 2024-12-24 Pat Name: JJ SLATER Department: 85 Room: EXAM 303 Gender: Female Vice President Of Compliance: : 1980 Requested By: SALO DILLON Order Number: [id number] Reading MD: Bubba Reyes Measurements Intervals [place] Rate: 58 P: 66 IA: 123 QRS: 67 QRSD: 90 T: 61 QT: 390 QTc: 386 Interpretive Statements SINUS BRADYCARDIA Compared to ECG 12/23/2024 14:40:13 Sinus rhythm no longer present H MACHINE OPERATOR Procedure Note Reyes, Bubba Lang, MD - 12/25/2024 [facility] Test Date: 2024-12-24 Pat Name: JJ SLATER Department: 85 Room: EXAM 303 Gender: Female Vice President Of Compliance: : 1980 Requested By: SALO DILLON Order Number: [id number] Reading MD: Bubba Reyes Measurements Intervals [place] Rate: 58 P: 66 IA: 123 QRS: 67 QRSD: 90 T: 61 QT: 390 QTc: 386 Interpretive Statements SINUS BRADYCARDIA Compared to ECG 12/23/2024 14:40:13 Sinus rhythm no longer present H MACHINE OPERATOR Salo Dillon MD ECG ORDERABLES Final Result Performing Organization Address [facility]/ZIP Co de Phone Number [facility]) RAD * PROTIME/INR, VENOUS (12/24/2024 4:10 PM CDT) PROTIME 12.3 9.1 - 12.4 SEC 12/24/2024 4:46 PM CDT [facility] INR 1.1 12/24/2024 4:46 PM CDT [facility] Comment: Recommend INR ranges for Oral Anticoagulant Therapy: Mechanical Cardiac Values 2.5-3.5 All others indication 2.0-3.0 12/24/2024 4:10 PM CDT Salo Dillon MD LABORATORY Final Result [facility] [address] [place] [address], * LIPASE (12/24/2024 4:10 PM CDT) LIPASE 63 16 - 77 UNITS/L 12/24/2024 4:35 PM CDT [facility] 12/24/2024 4:10 PM CDT us Salo Dillon MD LABORATORY Final Result Performing Organization Address [facility] Co de Phone Number [facility] [address] [place] [address], [place] [phone] * TROPONIN, QUANT (12/24/2024 4:10 PM CDT) Pathologist [facility] TROPONIN I HIGH SENSITIVITY 6 0 - 50 ng/L 12/24/2024 4:38 PM CDT [facility] Comment: HIGH DOSES OF BIOTIN, TROPONIN-SPECIFIC AUTOANTIBODIES, AND ANTIBODY THERAPY CONTAINING HAMA MAY INTERFERE WITH THIS TEST RESULT. CORRELATION TO CLINICAL HISTORY AND PRESENTATION RECOMMENDED. 12/24/2024 4:10 PM CDT us Salo Dillon MD LABORATORY Final Result Performing Organization Address [facility] Co de Phone Number [facility] [address] [place] [address], [place] [phone] * (ABNORMAL) COMPREHENSIVE METABOLIC PANEL (12/24/2024 4:10 PM CDT) [facility] GLUCOSE 84 70 - 99 MG/DL 12/24/2024 4:35 PM CDT [facility] BUN 21(H) 7 - 18 MG/DL 12/24/2024 4:35 PM CDT [facility] CREATININE S/P/B 0.78 0.55 - 1.02 MG/DL 12/24/2024 4:35 PM CDT [facility] SODIUM S/P/B 139 136 - 145 MMOL/L 12/24/2024 4:35 PM CDT [facility] POTASSIUM S/P/B 4.0 3.5 - 5.1 MMOL/L 12/24/2024 4:35 PM CDT [facility] CHLORIDE S/P/B 103 100 - 108 MMOL/L 12/24/2024 4:35 PM [facility] CO2 31.8 21 - 32 MMOL/L 12/24/2024 4:35 PM [facility] CALCIUM S/P/B 8.5 8.5 - 10.1 MG/DL 12/24/2024 4:35 PM [facility] BILIRUBIN TOTAL S/P/B 0.5 0.2 - 1.2 MG/DL 12/24/2024 4:35 PM [facility] TOTAL PROTEIN S/P/B 6.4 6.4 - 8.2 G/DL 12/24/2024 4:35 PM [facility] ALBUMIN S/P/B 3.4 3.4 - 5.0 G/DL 12/24/2024 4:35 PM [facility] AST 11(L) 15 - 37 U/L 12/24/2024 4:35 PM [facility] ALT 12(L) 14 - 55 U/L 12/24/2024 4:35 PM [facility] ALKALINE PHOSPHATASE S/P/B 71 50 - 136 U/L 12/24/2024 4:35 PM [facility] ANION GAP 4.2(L) 5 - 15 MMOL/L 12/24/2024 4:35 PM [facility] BUN CREATININE RATIO 26.9(H) 6 - 26 12/24/2024 4:35 PM [facility] A/G RATIO 1.1 1.0 - 2.0 RATIO 12/24/2024 4:35 PM [facility] GFR ESTIMATE >90 >90 ML/MIN/1.7 3 M2 12/24/2024 4:35 PM CDT [facility] Comment: NOTE: eGFR is not calculated for patients <18 years of age. This is an estimated GFR calculation using the new CKD EPI creatinine equation without race and so does not require a correction factor for race. This estimated GFR should not be used for calculating drug doses. 12/24/2024 4:10 PM CDT Salo Dillon MD LABORATORY Final Result [facility] [address] [place] [address], [place] [phone] * (ABNORMAL) CBC W/DIFF AUTOMATED (12/24/2024 4:10 PM CDT) WBC 5.15 4.4 - 11.0 x10'3/uL 12/24/2024 4:23 PM CDT [facility] RBC 3.80(L) 4.50 - 5.10 x10'6/uL 12/24/2024 4:23 PM CDT [facility] HGB 11.6(L) 12.3 - 15.3 G/DL 12/24/2024 4:23 PM CDT [facility] HCT 35.3(L) 35.9 - 44.6 % 12/24/2024 4:23 PM CDT [facility] MCV 92.9 80.0 - 96.0 FL 12/24/2024 4:23 PM CDT [facility] MCH 30.5 25.3 - 30.9 PG 12/24/2024 4:23 PM CDT [facility] MCHC 32.9 31.0 - 34.1 G/DL 12/24/2024 4:23 PM CDT [facility] RDW 13.2 12.4 - 15.1 % 12/24/2024 4:23 PM CDT [facility] PLT 337 151 - 353 x10'3/uL 12/24/2024 4:23 PM CDT [facility] MPV 9.6 9.6 - 12.0 FL 12/24/2024 4:23 PM CDT [facility] RBC MORPHOLOGY NORMAL 12/24/2024 4:23 PM CDT [facility] PLT MORPH. NORMAL 12/24/2024 4:23 PM T [facility] WBC MORPHOLOGY NORMAL 12/24/2024 4:23 PM CDT [facility] LYMPHOCYTES % 29.5 15.8 - 45.0 % 12/24/2024 4:23 PM CDT [facility] NEUTROPHILS % 59.4 42.1 - 71.9 % 12/24/2024 4:23 PM CDT [facility] MONOCYTES % 8.7 5.7 - 12.5 % 12/24/2024 4:23 PM CDT [facility] EOSINOPHILS 1.2 0.0 - 5.6 % 12/24/2024 4:23 PM CDT [facility] BASOPHILS 1.0 0.0 - 1.3 % 12/24/2024 4:23 PM CDT [facility] ABS. NEUTROPHILS 3.06 1.40 - 6.00 x10'3/uL 12/24/2024 4:23 PM T [facility] IMMATURE GRANS % 0.2 0.0 - 0.5 % 12/24/2024 4:23 PM T [facility] ABS. LYMPHOCYTES 1.52 0.80 - 4.70 x10'3/uL 12/24/2024 4:23 PM CDT [facility] 12/24/2024 4:10 PM CDT Salo Dillon MD LABORATORY Final Result [facility] [address] [address] [place] [address], [place] [phone] documented in this encounter Visit Diagnoses Diagnosis [...] RTR) documented in this encounter Care Teams Engineering Mathematician Relationship Specialty Start Date End Date DelisaMay, CHIP [address] [place] [address] PCP - General Nurse Practitioner Family 12/23/24 documented as of this encounter
--- OUTSIDE RECORDS SUMMARY | 2024-12-25 19:26 | XMS_ITS | Encounter Summary ---
Author Organization [facility] Address [facility] [place] [address] Care Team Providers Care Border Guard Name Role Phone Delisa May [facility] Primary Care Provider [phone] Reason for Visit * Reason Comments Chest Pain Encounter Details Date Type Department Care Team (Late st Contact Info) Description 12/25/2024 7:26 PM MEDICAL LABORATORY TECHNICAL OFFICER - 12/25/2024 9:07 PM [email or web address] Emergency [facility] Emergency Room [address] [place], [place] [phone] Rl Virgen MD [address] [place] [address] Chest Pain Discharge Disposition: Home or Self Care (Routine Discharge) Social History Tobacco Use Types Packs/Day Years Used Date Smoking Tobacco: Every Day Cigarettes Smokeless Tobacco: Never Alcohol Use Standard Drinks/Week Comments Not Currently 0 (1 standard drink = 0.6 oz pur e alcohol) [facility] Utilities Answer Date Recorded In the past 12 months has e [employer], gas, oil, or water [employer] threatened to shut off services in your [...] any time in the past 12 m [facility], were you homeless or living in a residential (including now)? Yes 10/13/2023 Comments No Sex and Gender Information Value Date Recorded Sex Assigned at Female 10/17/2024 3:24 PM CDT Legal Sex Female 11:36 PM CDT Gender Identity Female 12/25/2024 10:22 PM MEDICAL LABORATORY TECHNICAL OFFICER Sexual Orientation Straight 12/25/2024 10 :22 PM MEDICAL LABORATORY TECHNICAL OFFICER documented as of this encounter Last Filed Vital Signs Vital Sign Reading Time Taken Comments Blood Pressure 105/54 12/25/2024 8:30 PM MEDICAL LABORATORY TECHNICAL OFFICER Pulse 59 12/25/2024 8:55 PM MEDICAL LABORATORY TECHNICAL OFFICER Temperature 37 C (98.6 F) 12/25/2024 7:29 PM MEDICAL LABORATORY TECHNICAL OFFICER Respiratory Rate 11 12/25/2024 8:55 PM MEDICAL LABORATORY TECHNICAL OFFICER Oxygen Saturation 97% 12/25/2024 8:55 PM MEDICAL LABORATORY TECHNICAL OFFICER Inhaled Oxygen Concentration - - Weight 52.2 kg (115 lb 1.3 oz) 12/25/2024 7:29 P M MEDICAL LABORATORY TECHNICAL OFFICER Height 154.9 cm (5' 1) 12/25/2024 7:29 PM MEDICAL LABORATORY TECHNICAL OFFICER Body Mass Index 21.74 12/25/2024 7:29 PM MEDICAL LABORATORY TECHNICAL OFFICER documented in this encounter Functional Status * Are you deaf or do you have serious difficulty hearing Answer Date of Assessment Author Status No 10/13/2023 6:54 AM Lina yLman RN Active * Are you blind or [...] of Assessment Author Status No Risk Indicated 12/25/2024 7:29 PM Harsh Self RN Active * [place] Suicide Severity Rating Scale (Screener/Recent Self-Report) Question Answer Date of Assessment Author Status 1. Wish to be (Past 1 Month) No 12/25/2024 7:29 PM José Miguel Self RN Active 2. Non-Specific Active Suicidal Thoughts (Past 1 Month) No 12/25/2024 7:29 PM José Miguel Self RN Active 6. Suicidal Behavior (Lifetime) No 12/25/2024 7:29 PM Jordan Self RN Active documented as of this encounter Mental Status * Because of a physical, mental, or emotional condition, do you have serious difficulty concentrating, remembering, or making decisions? Answer Entry Date Author Status No 10/13/2023 6:54 AM Lina Lyman RN Active documented in this encounter Discharge Instructions * Attachments The following attachments cannot be sent through Care Everywhere. * Abdominal pain (German) documented in this encounter Medications at Time [...] ED Notes * Karo Pena RN - 12/25/2024 9:06 PM CSTSummary: discharge Patient refused discharge instructions/ patient able to ambulate with a steady unassisted gait towards the exit of the ed with a steady unassisted gait. CAL LABORATORY TECHNICAL OFFICER * Karo Pena RN - 12/25/2024 9:01 PM CSTSummary: patient discharge report Patient refused discharge instructions and to sign discharge papers. Patient verbalized , you guysdo nothing for me. I was poisoned and you're just gonna let me . I will kosta you and the ambulance. Rn attempted discharge instructions and to assure patient about testing performed. Patient declined continued conversation. Patient left discharge instructions at bedside. Patient was able to ambulate with a steady unassisted gait towards the exit of the ed. CAL LABORATORY TECHNICAL OFFICER * Karo Pena RN - 12/25/2024 7:27 PM CSTSummary: triage Patient to ed via ems from home with c/o of upper mid sternal chest pain that is recurrent and lower abdominal pain. Patient states she has been seen mutliple times for this same issue but has not found relief. Patient denies using meth since time of discharge yesterday. Patient states post discharge yesterday she had a syncopal episode and then urinated on herself. Patient is ao x4 upon arrival and rates her abdominal and chest pain a 10. Patient denies non pharmacological and pharmacological methods for relief prior to arrival. CAL LABORATORY TECHNICAL OFFICER documented in this encounter Plan of Treatment Not on file documented as of this encounter Procedures Procedure Name Priority Date/Time Associated Diagnosis Comments ECG 12-LEAD Routine 12/25/2024 7:28 PM MEDICAL LABORATORY TECHNICAL OFFICER documented in this encounter Results * ECG 12 lead (12/25/2024 7:28 PM MEDICAL LABORATORY TECHNICAL OFFICER) ECG QT 374 [facility] ([facility] RAD ECG QTC 404 [facility] ([facility] RAD 12/25/2024 7:28 PM MEDICAL LABORATORY TECHNICAL OFFICER Narrative [facility] ([facility]) RAD - 12/25/2024 7:36 PM MEDICAL LABORATORY TECHNICAL OFFICER [facility] Test Date: 2024-12-25 Pat Name: JJ ROUSE Department: 85 Room: EXAM 505 Gender: Female Mapping Editor: : 1980 Requested By: RL VIRGEN Order Number: [id number] Reading MD: Bubba Reyes Measurements Intervals [place] Rate: 70 P: 74 AR: 126 QRS: 69 QRSD: 97 T: 62 QT: 374 QTc: 404 Interpretive Statements SINUS RHYTHM Compared to ECG 12/24/2024 16:10:34 Sinus bradycardia no longer present CAL LABORATORY TECHNICAL OFFICER Procedure Note Bubba Reyes MD - 12/25/2024 [facility] [place] Test Date: 2024-12-25 Pat Name: JJ ROUSE Department: 85 Room: EXAM 505 Gender: Female Mapping Editor: : 1980 Requested By: RL VIRGEN Order Number: [id number] Reading MD: Bubba Reyes Measurements Intervals [place] Rate: 70 P: 74 AR: 126 QRS: 69 QRSD: 97 T: 62 QT: 374 QTc: 404 Interpretive Statements SINUS RHYTHM Compared to ECG 12/24/2024 16:10:34 Sinus bradycardia no longer present CAL LABORATORY TECHNICAL OFFICER us Rl Virgen MD ECG ORDERABLES Final Result [facility] RAD documented in this encounter Visit Diagnoses Diagnosis Abdominal pain- Primary Abdominal pain, unspecified site documented in this encounter Administered Medications Inactive Administered Medications - up to 3 most recent administrations Medication Order MAR Action Action Date Dose Rate Site [id number]-yamzibhx-qaqrgkrrbyu ([place] [employer]) [id number] mg/30mL suspension 5 mL, Oral, Once, 1 dose, On 12/25/24 at 1999, Jose Randall Given 12/25/2024 7:59 PM MEDICAL LABORATORY TECHNICAL OFFICER 5 mLs documented in this encounter Active and Recently Administered Medications Due to Daylight Saving Time, this section may contain times in both CDT and MEDICAL LABORATORY TECHNICAL OFFICER. Scheduled Medication Order 12/23/2024 12/24/2024 12/25/2024 [id number]-erudftfk-tahppijqjpn ([employer] [employer]ENGTH) [id number] mg/30mL suspension (COMPLETED) 5 mL, Oral, Once, 1 dose, On 12/25/24 at 1999, Jose Randall 1956 (Given - Provid er: Deborah Huitron RN) documented in this encounter Care Teams Border Guard Relationship Specialty Start Date End Date May, AUTOMOTIVE VEHICLE INSPECTOR [address] [place] [address] PCP - General Nurse Practitioner Family 12/23/24 documented as of this encounter
--- OUTSIDE RECORDS SUMMARY | 2024-12-25 19:26 | XMS_ITS | Encounter Summary ---
Author Organization [facility] Address [facility] [place] [address] Care Team Providers Care Sea Air Land Officer Name Role Phone Delisa May [facility] Primary Care Provider [phone] Reason for Visit * Reason Comments Chest Pain Encounter Details Date Type Department Care Team (Late st Contact Info) Description 12/25/2024 7:26 PM NATIONAL VAN OWNER OPERATOR - 12/25/2024 9:07 PM [facility] Emergency [facility] Emergency Room [address] [place], [place] [id number] Rl Virgen MD [address] [place] [address] Chest Pain Discharge Disposition: Home or Self Care (Routine Discharge) Social History Tobacco Use Types Packs/Day Years Used Date Smoking Tobacco: Every Day Cigarettes Smokeless Tobacco: Never Alcohol Use Standard Drinks/Week Comments Not Currently 0 (1 standard drink = 0.6 oz pur e alcohol) [facility] Utilities Answer Date Recorded In the past 12 months has e [employer] gas, oil, or water [employer] threatened to shut off services in your [...] were you homeless or living in a skilled nursing (including now)? Yes 10/13/2023 Comments No Sex and Gender Information Value Date Recorded Sex Assigned at Female 10/17/2024 3:24 PM CDT Legal Sex Female 11:36 PM CDT Gender Identity Female 12/25/2024 10:22 PM NATIONAL VAN OWNER OPERATOR Sexual Orientation Straight 12/25/2024 10 :22 PM NATIONAL VAN OWNER OPERATOR documented as of this encounter Last Filed Vital Signs Vital Sign Reading Time Taken Comments Blood Pressure 105/54 12/25/2024 8:30 PM NATIONAL VAN OWNER OPERATOR Pulse 59 12/25/2024 8:55 PM NATIONAL VAN OWNER OPERATOR Temperature 37 C (98.6 F) 12/25/2024 7:29 PM NATIONAL VAN OWNER OPERATOR Respiratory Rate 11 12/25/2024 8:55 PM NATIONAL VAN OWNER OPERATOR Oxygen Saturation 97% 12/25/2024 8:55 PM NATIONAL VAN OWNER OPERATOR Inhaled Oxygen Concentration - - Weight 52.2 kg (115 lb 1.3 oz) 12/25/2024 7:29 P M NATIONAL VAN OWNER OPERATOR Height 154.9 cm (5' 1) 12/25/2024 7:29 PM NATIONAL VAN OWNER OPERATOR Body Mass Index 21.74 12/25/2024 7:29 PM NATIONAL VAN OWNER OPERATOR documented in this encounter Functional Status * [...] Status No Risk Indicated 12/25/2024 7:29 PM Hrash Self RN Active * [place] Suicide Severity Rating Scale (Screener/Recent Self-Report) Question [...] sent through Care Everywhere. * Abdominal pain (Chinese) documented in this encounter Medications at Time [...] the ed with a steady unassisted gait. ONAL VAN OWNER OPERATOR * Karo Pena RN - 12/25/2024 9:01 [...] gait towards the exit of the ed. ONAL VAN OWNER OPERATOR * Karo Pena RN - 12/25/2024 7:27 [...] pharmacological methods for relief prior to arrival. ONAL VAN OWNER OPERATOR documented in this encounter Plan of Treatment Not on file documented as of this encounter Procedures Procedure Name Priority Date/Time Associated Diagnosis Comments ECG 12-LEAD Routine 12/25/2024 7:28 PM NATIONAL VAN OWNER OPERATOR documented in this encounter Results * ECG 12 lead (12/25/2024 7:28 PM NATIONAL VAN OWNER OPERATOR) ECG QT 374 [facility] ([facility]) RAD ECG QTC 404 [facility] ([facility]) RAD 12/25/2024 7:28 PM NATIONAL VAN OWNER OPERATOR Narrative [facility] ([facility]) RAD - 12/25/2024 7:36 PM NATIONAL VAN OWNER OPERATOR [facility] Test Date: 2024-12-25 Pat Name: JJ ROUSE Department: 85 Room: EXAM 505 Gender: Female Durable Medical Equipment Repairer: : 1980 Requested By: RL VIRGEN Order Number: [id number] Reading MD: Bubba Reyes Measurements Intervals [place] Rate: 70 P: 74 [place]: 126 QRS: 69 QRSD: 97 T: 62 QT: 374 QTc: 404 Interpretive Statements SINUS RHYTHM Compared to ECG 12/24/2024 16:10:34 Sinus bradycardia no longer present ONAL VAN OWNER OPERATOR Procedure Note Bbuba Reyes MD - 12/25/2024 [facility] [place] Test Date: 2024-12-25 Pat Name: JJ ROUSE Department: 85 Room: EXAM 505 Gender: Female Durable Medical Equipment Repairer: : 1980 Requested By: RL VIRGEN Order Number: [id number] Reading MD: Bubba Reyes Measurements Intervals [place] Rate: 70 P: 74 [place]: 126 QRS: 69 QRSD: 97 T: 62 QT: 374 QTc: 404 Interpretive Statements SINUS RHYTHM Compared to ECG 12/24/2024 16:10:34 Sinus bradycardia no longer present ONAL VAN OWNER OPERATOR us Rl Virgen MD ECG ORDERABLES Final Result [facility] RAD documented in this encounter Visit Diagnoses Diagnosis Abdominal pain- Primary Abdominal pain, unspecified site documented in this encounter Administered Medications Inactive Administered Medications - up to 3 most recent administrations Medication Order MAR Action Action Date Dose Rate Site oeqcxturr-wewntyzf-lpysivcaukb ([place] [employer]EN[employer]) [id number] mg/30mL suspension 5 mL, Oral, Once, 1 dose, On 12/25/24 at 1999, Jose Randall Given 12/25/2024 7:59 PM NATIONAL VAN OWNER OPERATOR 5 mLs documented in this encounter Active and Recently Administered Medications Due to Daylight Saving Time, this section may contain times in both CDT and NATIONAL VAN OWNER OPERATOR. Scheduled Medication Order 12/23/2024 12/24/2024 12/25/2024 [id number]-[id number] ([employer] [employer]ENGTH) [id number] mg/30mL suspension (COMPLETED) 5 mL, Oral, Once, 1 dose, On 12/25/24 at 1999, Jose Randall 1956 (Given - Provid er: Deborah Huitron RN) documented in this encounter Care Teams Sea Air Land Officer Relationship Specialty Start Date End Date May, TYPEWRITER OPERATOR AUTOMATIC [address] [place] [address] PCP - General Nurse Practitioner Family 12/23/24 documented as of this encounter
--- OUTSIDE RECORDS SUMMARY | 2024-12-25 22:14 | XMS_ITS | Encounter Summary ---
Author Organization [facility] Address [facility] [place] [address] Care Team Providers Care Civil Design Technician Name Role Phone Delisa, May [facility] Primary Care Provider Reason for Visit * Reason Comments Chest Pain Encounter Details Date Type Department Care Team (Late st Contact Info) Description 12/25/2024 10:14 PM PLANT ATTENDANT - 12/26/2024 11:40 AM [facility] Emergency [facility] Emergency Room [address] [place], [place] [id number] John Virgen MD [address] [place] [id number] Lionel Staples MD [address] [place] [id number] Chest Pain Discharge Disposition: Left Against Medical Advice Social History Tobacco Use Types Packs/Day Years Used Date Smoking Tobacco: Every Day Cigarettes Smokeless Tobacco: Never Alcohol Use Standard Drinks/Week Comments Not Currently 0 (1 standard drink = 0.6 oz pur e alcohol) [facility] Utilities Answer Date Recorded In the past 12 months has e electric, gas, oil, or water company [...] any time in the past 12 m [facility], were you homeless or living in a fci (including now)? Yes 10/13/2023 Comments No Sex and Gender Information Value Date Recorded Sex Assigned at Female 10/17/2024 3:24 PM CDT Legal Sex Female 11:36 PM CDT Gender Identity Female 12/25/2024 10:22 PM PLANT ATTENDANT Sexual Orientation Straight 12/25/2024 10 :22 PM PLANT ATTENDANT documented as of this encounter Last Filed Vital Signs Vital Sign Reading Time Taken Comments Blood Pressure 91/55 12/26/2024 7:00 AM PLANT ATTENDANT Pulse 57 12/26/2024 7:00 AM PLANT ATTENDANT Temperature 36.5 C (97.7 F) 12/26/2024 7:00 AM PLANT ATTENDANT Respiratory Rate 18 12/25/2024 10:18 PM PLANT ATTENDANT Oxygen Saturation 97% 12/26/2024 7:00 AM PLANT ATTENDANT Inhaled Oxygen Concentration - - Weight 49.9 kg (110 lb) 12/25/2024 10:18 PM PLANT ATTENDANT Height 154.9 cm (5' 1) 12/25/2024 10:18 PM PLANT ATTENDANT Body Mass Index 20.78 12/25/2024 10:18 PM PLANT ATTENDANT documented in this encounter Functional Status * [...] (Lifetime/Recent) Answer Date of Assessment Author Status Moderate Risk 12/25/2024 11:13 PM Deborah Cortes RN Active * [place] Suicide Severity Rating Scale (Screener/Recent Self-Report) Question Answer Date of Assessment Author Status 1. Wish to be (Past 1 Month) Yes 12/25/2024 11:13 PM Deborah Cortes RN A ctive 2. Non-Specific Active Suicidal Thoughts (Past 1 Month) Yes 12/25/2024 11:13 PM Deborah Cortes RN A ctive 3. Active Suicidal Ideation with any Methods (Not Plan) Without Intent to Act (Past 1 Month) Yes 12/25/2024 11:13 PM Deborah Cortes RN A ctive 4. Active Suicidal Ideation with Some Intent to Act, Without Specific Plan (Past 1 Month) No 12/25/2024 11:13 PM Deborah Cortes RN A ctive 5. Active Suicidal Ideation with Specific Plan and Intent (Past 1 Month) No 12/25/2024 11:13 PM Deborah Cortes RN A ctive 6. Suicidal Behavior (Lifetime) Yes 12/25/2024 11:13 PM Deborah Cortes RN A ctive 6. Suicidal Behavior (3 Months) No 12/25/2024 11:13 PM Deborah Cortes RN A ctive * Question Answer Date of Assessment Author Status Frequency (Past 1 Month) 4 025 11:13 PM Deborah Cortes RN Active Duration (Past 1 Month) 4 12/26/19 25 11:13 PM Deborah Cortes RN Active Controllability (Past 1 Month) 1 12/25/2024 11:13 PM Deborah Cortes RN Active Deterrents (Past 1 Month) 1 2024 11:13 PM Deborah Cortes RN Active Reasons for Ideation (Past 1 Month) 2 12/25/2024 11:13 PM Deborah Cortes RN Active documented as of this encounter Mental Status * Because of a physical, mental, or emotional condition, do you have serious difficulty concentrating, remembering, or making decisions? Answer Entry Date Author Status No 10/13/2023 6:54 AM Lina Lyman RN Active documented in this encounter Medications at Time of Discharge buprenorphine-nal oxone (SUBOXONE) 4 mg-[address] 1 Film under the tongue 2 (two) times a day. 09/29/2024 cyclobenzaprine (FLEXERIL) 10 MG tablet Take 1 tablet (10 mg total) by mouth 3 (three) times daily as needed for Muscle Spasms. 15 tablet 12/18/2024 12/28/2024 documented as of this encounter ED Notes * Becca Stanford RN - 12/26/2024 11:34 AM CST CRISIS was making arrangements for inpatient at their [facility] facility. Patient was in agreement to wait a few hours for the arrangements to made. Once CRISIS had left the bedside patient stated I'm leaving and going outside to smoke and wait for them to get me a bed Informed that she could not go outside or wait outside since she is a patient. Patient stated I'm leaving and I'll figure it our Signed AMA paperwork Meds and belongings returned to patient refused discharge vital signs T ATTENDANT T ATTENDANT * Becca Stanford RN - 12/26/2024 10:38 AM CST CRISIS remains here and working with [patient T ATTENDANT * Becca Stanford RN - 12/26/2024 9:32 AM CST CRISIS spoke with patient requesting to go to [facility] since she has been there before. CRISIS askedher about [facility] and she is in agreement for that as well. CRISIS is doing a safety plan incase the patient decides to leave AMA T ATTENDANT * Becca Stanford RN - 12/26/2024 9:19 AM CST CRISIS here to revaluate patient informed of events of earlier today. Medications as directed T ATTENDANT * Becca Satnford RN - 12/26/2024 8:51 AM CST Spoke at length with patient denies being suicidal or homicidal concerned about wanting to smoke. Attempted to get patient to wait for CRISIS not wanting to stay Called a friend of hers named Davian whodid not answer the phone [phone] also left a message for patient sister ( unknown name ) [phone] Is being cooperative will continue to observe T ATTENDANT * Lionel Staples MD - 12/26/2024 8:35 AM CST Emergency Department Assumed Care Note Patient signed out to me by Dr. Virgen @ 0700 shift change. Briefly, Jaycee Rouse is a 44-year-old female is being evaluated for suicidal ideation. Patient has been seen in ER 8 times recently for chest pain. Patient was initially seen for chest pain last night and discharged. She sat in waiting room and did not have a ride. Patient then checked back in astated she was suicidal. Crisis evaluated patient and she was going to be admitted voluntarily. This morning patient became upset because she wasn't allowed to go outside and smoke. Patient demanded she was leaving. She did deny homicidal or suicidal ideation at this time. She reported that she wasmessed up on meth at the time she reported she was suicidal. Vitals: 12/26/24 0700 BP: 91/55 Pulse: (!) 57 Resp: Temp: 97.7 ??F (36.5 ??C) SpO2: 97% Thus far, studies reveal: UDS positive Pending studies include: none Plan from sign out is: transfer to psychiatric facility when bed available. Progress notes: See ED course for further details. No results found for this visit on 12/25/24. Labs Reviewed DRUG SCREEN RAPID - Abnormal; Notable for the following components: Result Value BENZODIAZEPINES SCREEN (U) DETECTED (*) BUPRENORPHINE SCREEN (U) DETECTED (*) METHAMPHETAMINE (U) DETECTED (*) All other components within normal limits TEST URINE No orders to display Medical Decision Making Amount and/or Complexity of Data Reviewed Labs: ordered. ED Course as of 12/26/24 1219 Mon Dec 26, 2024 0829 Patient wanting to leave at this time. Patient reports she only felt suicidal because she was messed up. Patient reports now she is not suicidal and wants to smoke a cigarette. Patient was offered nicotine patch, her regular dose of suboxone, and ativan. Patient refused and stated she wantedthe police called. Crisis counselor was called again to reevaluate along with police. [ZULLY] 0834 Officer Justyn spoke with patient and she denied homicidal or suicidal ideation. He felt that we could not hold patient at this time and that if she wanted to leave could sign the AMA form. [ZULLY] 1217 Patient did wait and speak with crisis counselors again. They arranged for patient to go to [facility] to get help with drug abuse. Patient initially agreed to go but then refused to wait and signed out AMA. Patient did deny homicidal or suicidal ideation at this time. [ZULLY] ED Course User Index [ZULLY] Lionel Staples MD Medications - No data to display New Prescriptions No medications on file Clinical impression: SNOMED CT(R) 1. Drug use FINDING RELATED TO SUBSTANCE USE Disposition: Transfer to Another Facility LIONEL STAPLES MD 12/26/2024 Lionel Staples MD 12/26/24 1219 T ATTENDANT * Becca Stanford RN - 12/26/2024 8:33 AM CST [facility] Officer Justyn have had a discussion with patient and they have no criteria to force her to stay. They stated she is not suicidal or homicidal at this time encouraging her to stay until CRISIS arrives [place] Officer Justyn spoke with Dr Staples to inform her of their conversation T ATTENDANT T ATTENDANT * Becca Stanford RN - 12/26/2024 8:23 AM CST [place] here talking with patient T ATTENDANT * Becca Stanford RN - 12/26/2024 8:21 AM CST Walking in the halls and in the Nurses station wanting to leave wanting to smoke asking for the police to be called. Call placed to [facility] dispatch in regards to patient walking out of the [facility] returned and continued to say she wants to leave. Call placed to CRISIS and they will come and revaluate her. T ATTENDANT * Becca Stanford RN - 12/26/2024 7:13 AM CST Assumed care of patient alert cooperative no compliant's waiting to hear back from faculties where paperwork was faxed T ATTENDANT * John Virgen MD - 12/26/2024 1:26 AM CST Chief Complaint Chief Complaint Patient presents with ??? Chest Pain History of Present Illness Patient was seen by me earlier in the evening. She had been in our emergency department 4 times in the last few days. She has had symptoms that range from abdominal pain to chest pain. She had a CT angiogram of her chest and multiple lab test that were all within normal limits. She uses methamphetamine and says she last used 4 days ago. She does not have cough or fever. She denies urinary discomfort. She seems very distracted is difficult at times to get a complete history from. The patient didnot press any desire to harm herself on the first visit and was discharged. She then sat in the waiting room and decided to check back in and says that she is now feeling suicidal. She denies any ingestion of any pills or medicines. She does admit to drug use but is somewhat vague about her answerswith regard to this. Medical History ALLERGIES: Review of patient's allergies [...] Spasms. Patient not taking: Reported on 12/23/2024 12/18/245/25 Billy Mayfield DO PAST MEDICAL HISTORY: Past Medical History[1] PAST SURGICAL HISTORY: Past Surgical History[2] FAMILY HISTORY: Family History[3] SOCIAL HISTORY: Social History[4] Review of Systems Review of Systems Physical Exam Filed Vitals: 12/25/24 2218 12/26/24 0033 BP: 114/63 110/72 Pulse: 76 Resp: 18 Temp: 97.7 ??F (36.5 ??C) TempSrc: Temporal SpO2: 99% 96% Weight: 49.9 kg (110 lb) Height: 1.549 m (5' 1) Physical Exam GEN: AWAKE AND ALERT. NAD HEENT: NO SIGNS OF FACIAL TRAUMA, NO FACIAL DROOP, EOMI, MARLYN NECK: NO C-SPINE TTP, NO JVD, NO SIGNS OF MENINGITIS HEART: RRR, NO MURMUR LUNGS: CTA (B), NO WHEEZING, NO RHALES, NO CRACKLES ABD: SOFT, NO PULSATILE MASSESS, NO TTP TO DEEP PALPATION BACK: NO CVA TTP, NO MIDLINE CLARA TTP EXT: NO EDEMA, NO CALF TTP, NO OBVIOUS SIGNS OF CELLULITIS NEURO: A&0X3, NO MOTOR SENSORY DEFECITS NOTED, NO TREMOR Diagnostic Studies / Procedures ELECTROCARDIOGRAMS: No results found for this visit on 12/25/24. LABORATORY STUDIES: Results for orders placed or performed during the hospital encounter of 12/25/24 DRUG SCREEN RAPID Result Value Ref Range AMPHETAMINE (U) NONE DETECTED NONE DETECTED BARBITURATES SCREEN (U) NONE DETECTED NONE DETECTED BENZODIAZEPINES SCREEN (U) DETECTED (A) NONE DETECTED BUPRENORPHINE SCREEN (U) DETECTED (A) NONE DETECTED COCAINE METABOLITES (U) NONE DETECTED NONE DETECTED METHAMPHETAMINE (U) DETECTED (A) NONE DETECTED METHADONE (U) NONE DETECTED NONE DETECTED OPIATE SCREEN (U) NONE DETECTED NONE DETECTED OXYCODONE SCREEN (U) NONE DETECTED NONE DETECTED PHENCYCLIDINE PCP (U) NONE DETECTED NONE DETECTED CANNABINOIDS SCREEN (U) NONE DETECTED NONE DETECTED TRICYCLIC ANTIDEPRESSANT SCREEN (U) NONE DETECTED NONE DETECTED TEST URINE Result Value Ref Range URINE HCG TEST NEG NEGATIVE IMAGING STUDIES No orders to display ED Course / Medical Decision Making Patient presents having just been discharged from the emergency department. She had initially presented with chest pain and abdominal pain. The day before she had had a CT angiogram of her chest thatdid not show any acute findings. Her lab work from yesterday was within normal limits and her abdominal exam was extremely benign. I ordered a urine toxicology test and a urine test but didnot feel further workup was indicated. The patient is positive for methamphetamine as well as benzodiazepines and buprenorphine which she takes. The patient expresses desire to harm herself or thoughshe is very vague about the symptoms. Her sister called that she be willing to come and pick her upthe patient does not want to go with her sister and so we will call psychiatry to evaluate the patient. I feel the patient at this time is medically cleared for psychiatric evaluation. The patient has been seen and is voluntarily going to inpatient psychiatric care. We are awaiting response for location. I may have to ask my colleague to finish the final transfer paperwork once we learned the location that she will be going to. Medical Decision Making Amount and/or Complexity of Data Reviewed Labs: ordered. ED Course as of 12/26/24 1219 ThuDec 26, 2024 0829 Patient wanting to leave at this time. Patient reports she only felt suicidal because she was messed up. Patient reports now she is not suicidal and wants to smoke a cigarette. Patient was offered nicotine patch, her regular dose of suboxone, and ativan. Patient refused and stated she wantedthe police called. Crisis counselor was called again to reevaluate along with police. [ZULLY] 0834 Officer Justyn spoke with patient and she denied homicidal or suicidal ideation. He felt that we could not hold patient at this time and that if she wanted to leave could sign the AMA form. [ZULLY] 1217 Patient did wait and speak with crisis counselors again. They arranged for patient to go to [facility] to get help with drug abuse. Patient initially agreed to go but then refused to wait and signed out AMA. Patient did deny homicidal or suicidal ideation at this time. [ZULLY] ED Course User Index [ZULLY] Lionel Staples MD Clinical Impression Drug use (Primary) Disposition: Data Unavailable John Virgen MD 12/26/24 013 John Virgen MD 12/26/24 0629 [1] Past Medical History: Diagnosis Date ??? 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 Drug use: Yes Types: Methamphetamines, Marijuana T ATTENDANT T ATTENDANT * Karo Pena RN - 12/25/2024 11:04 PM CSTSummary: crisis Crisis contacted for evaluation T ATTENDANT * Deborah Huitron RN - 12/25/2024 10:17 PM CST mid sternal chest pain that is recurrent and lower abdominal pain. Patient states she has been seenmutliple times for this same issue but has not found relief. Patient denies using meth since time of discharge yesterday. Patient states that used meth days ago. Patient is ao x4 upon arrival and rates her abdominal and chest pain a 7/10. Patient denies non pharmacological and pharmacological methods for relief prior to arrival. T ATTENDANT documented in this encounter Plan of Treatment Not on file documented as of this encounter Procedures Procedure Name Priority Date/Time Associated Diagnosis Comments DRUG SCREEN RAPID STAT 12/25/2024 11: 24 PM PLANT ATTENDANT TEST URINE STAT 12/25/2024 11:24 PM PLANT ATTENDANT documented in this encounter Results * TEST URINE (12/25/2024 11:24 PM PLANT ATTENDANT) URINE HCG TEST NEG NEGATIVE 12/25/2024 11:41 PM PLANT ATTENDANT [facility] Comment: VERY DILUTE URINE SPECIMENS MAY NOT CONTAIN DATA ARCHITECT LEVELS OF HCG. IF IS STILL SUSPECTED, A SERUM HCG TEST IS RECOMMENDED. URINE SPECIMEN FROM [facility]RETHRA / Unknown 12/25/2024 11:24 PM PLANT ATTENDANT John Virgen MD URINE ORDERABLES Final Result [facility] [address] [place] [address], [place] [phone] * (ABNORMAL) DRUG SCREEN RAPID (12/25/2024 11:24 PM PLANT ATTENDANT) Pathologist [facility] AMPHETAMINE (U) NONE DETECTED NONE DETECTED 12/25/2024 11:45 PM PLANT ATTENDANT [facility] BARBITURATES SCREEN (U) NONE DETECTED NONE DETECTED 12/25/2024 11:45 PM PLANT ATTENDANT [facility] BENZODIAZEPINES SCREEN (U) DETECTED(A) NONE DETECTED 12/25/2024 11:45 PM PLANT ATTENDANT [facility] BUPRENORPHINE SCREEN (U) DETECTED(A) NONE DETECTED 12/25/2024 11:45 PM PLANT ATTENDANT [facility] COCAINE METABOLITES (U) NONE DETECTED NONE DETECTED 12/25/2024 11:45 PM PLANT ATTENDANT [facility] METHAMPHETAMINE (U) DETECTED(A) NONE DETECTED 12/25/2024 11:45 PM PLANT ATTENDANT [facility] METHADONE (U) NONE DETECTED NONE DETECTED 12/25/2024 11:45 PM PLANT ATTENDANT [facility] OPIATE SCREEN (U) NONE DETECTED NONE DETECTED 12/25/2024 11:45 PM PLANT ATTENDANT [facility] OXYCODONE SCREEN (U) NONE DETECTED NONE DETECTED 12/25/2024 11:45 PM PLANT ATTENDANT [facility] PHENCYCLIDINE PCP (U) NONE DETECTED NONE DETECTED 12/25/2024 11:45 PM PLANT ATTENDANT [facility] CANNABINOIDS SCREEN (U) NONE DETECTED NONE DETECTED 12/25/2024 11:45 PM PLANT ATTENDANT [facility] TRICYCLIC ANTIDEPRESSANT SCREEN (U) NONE DETECTED NONE DETECTED 12/25/2024 11:45 PM PLANT ATTENDANT [facility] Comment: NOTE: RESULTS OF THIS DRUG SCREEN SHOULD BE USED FOR MEDICAL PURPOSES ONLY AND NOT FOR LEGAL OR EMPLOYEMENT PURPOSES. MEDICATIONS CONTAINING EPHEDRINE MAY CAUSE FALSE POSITIVE AMPHETAMINE. AMPHETAMINE- 500 NG/ML BARBITURATE- 200 NG/ML BENZODIAZEPINE- 150 NG/ML BUPRENORPHINE- 10 NG/ML COCAINE- 150 NG/ML METHAMPHETAMINES- 500 NG/ML METHADONE- 200 NG/ML OPIATE- 100 NG/ML OXYCODONE- 100 NG/ML PCP- 25 NG/ML THC- 50 NG/ML TCA- 300 NG/ML URINE SPECIMEN / Unknown 12/25/2024 11:24 PM PLANT ATTENDANT us John Virgen MD URINE ORDERABLES Final Result Performing Organization Address City/State/[facility] Co de Phone Number [facility] [address] [place] [address], [place] [phone] documented in this encounter Visit Diagnoses Diagnosis Drug use- Primary Other, mixed, or unspecified nondependent drug abuse, unspecified documented in this encounter Administered Medications Inactive Administered Medications - up to 3 most recent administrations Medication Order MAR Action Action Date Dose Rate Site buprenorphine-naloxone (SUBOXONE) 4 mg-1 mg film 1 Film 1 Film, Sublingual, 2 times daily, First dose on Thu12/26/24 at 0915, Until Discontinued, PATIENT OWN MEDICATION Verified by: JOSE J CHERY PharmD 12/26/2024 9:07 AM Given 12/26/2024 9:18 AM PLANT ATTENDANT 1 Film LORazepam (ATIVAN) tablet 1 mg 1 mg, Oral, Once, 1 dose, On Thu12/26/24 at 0915 Given 12/26/2024 9:18 AM PLANT ATTENDANT 1 mg documented in this encounter Active and Recently Administered Medications Due to Daylight Saving Time, this section may contain times in both CDT and PLANT ATTENDANT. Scheduled Medication Order 12/24/2024 12/25/2024 12/26/2024 buprenorphine-naloxone (SUBOXONE) 4 mg-1 mg film 1 Film 1 Film, Sublingual, 2 times daily, First dose on Thu12/26/24 at 0915, Until Discontinued, PATIENT OWN MEDICATION Verified by: JOSE J CHERY, PharmD 12/26/2024 9:07 AM 0918 (Given - Provid er: Sarah Guan, Nurse Student) LORazepam (ATIVAN) tablet 1 mg (COMPLETED) 1 mg, Oral, Once, 1 dose, On Thu12/26/24 at 0915 0918 (Given - Provid er: Sarah Guan, Nurse Student) documented in this encounter Care Teams Civil Design Technician Relationship Specialty [facility] [address] [place] [address] PCP - General Nurse Practitioner Family 12/23/24 documented as of this encounter
--- OUTSIDE RECORDS SUMMARY | 2024-12-25 22:14 | XMS_ITS | Encounter Summary ---
Author Organization [facility] Address [facility] [place] [address] Care Team Providers Care Strap Folding Machine Operator Name Role Phone Delisa, May [facility] Primary Care Provider [phone] Reason for Visit * Reason Comments Chest Pain Encounter Details Date Type Department Care Team (Late st Contact Info) Description 12/25/2024 10:14 PM SALES REPRESENTATIVE PUBLICATIONS - 12/26/2024 11:40 AM [facility] Emergency [facility] Emergency Room [address] [place], [place] [id number] John Virgen MD [address] [place] [address] Lionel Staples MD [address] [place] [address] Chest Pain Discharge Disposition: Left Against Medical Advice Social History Tobacco Use Types Packs/Day Years Used Date Smoking Tobacco: Every Day Cigarettes Smokeless Tobacco: Never Alcohol Use Standard Drinks/Week Comments Not Currently 0 (1 standard drink = 0.6 oz pur e alcohol) [facility] Utilities Answer Date Recorded In the [...] any time in the past [facility], were you homeless or living in a [facility] (including now)? Yes 10/13/2023 Comments No Sex and Gender Information Value Date Recorded Sex Assigned at Female 10/17/2024 3:24 PM CDT Legal Sex Female 11:36 PM CDT Gender Identity Female 12/25/2024 10:22 PM SALES REPRESENTATIVE PUBLICATIONS Sexual Orientation Straight 12/25/2024 10 :22 PM SALES REPRESENTATIVE PUBLICATIONS documented as of this encounter Last Filed Vital Signs Vital Sign Reading Time Taken Comments Blood Pressure 91/55 12/26/2024 7:00 AM SALES REPRESENTATIVE PUBLICATIONS Pulse 57 12/26/2024 7:00 AM SALES REPRESENTATIVE PUBLICATIONS Temperature 36.5 C (97.7 F) 12/26/2024 7:00 AM SALES REPRESENTATIVE PUBLICATIONS Respiratory Rate 18 12/25/2024 10:18 PM SALES REPRESENTATIVE PUBLICATIONS Oxygen Saturation 97% 12/26/2024 7:00 AM SALES REPRESENTATIVE PUBLICATIONS Inhaled Oxygen Concentration - - Weight 49.9 kg (110 lb) 12/25/2024 10:18 PM SALES REPRESENTATIVE PUBLICATIONS Height 154.9 cm (5' 1) 12/25/2024 10:18 PM SALES REPRESENTATIVE PUBLICATIONS Body Mass Index 20.78 12/25/2024 10:18 PM SALES REPRESENTATIVE PUBLICATIONS documented in this encounter Functional Status * [...] 6:54 AM Lina yLman RN Active * Because of a physical, mental, or emotional condition, do you have difficulty doing errands alone such as visiting a doctor's office or shopping? Answer Date of Assessment Author Status Yes 10/13/2023 6:54 AM Lina Lyman RN Active * Calculated C-SSRS Risk Score (Lifetime/Recent) Answer Date of Assessment Author Status Moderate Risk 12/25/2024 11:13 PM Deborah Cortes RN Active * [place] Suicide Severity Rating Scale (Screener/Recent Self-Report) Question [...] was making arrangements for inpatient at their [place] facility. Patient was in agreement to wait [...] returned to patient refused discharge vital signs S REPRESENTATIVE PUBLICATIONS S REPRESENTATIVE PUBLICATIONS * Becca Stanford RN - 12/26/2024 10:38 AM CST CRISIS remains here and working with [patient S REPRESENTATIVE PUBLICATIONS * Becca Stanford RN - 12/26/2024 9:32 AM CST CRISIS spoke with patient requesting to go to [place] since she has been there before. CRISIS askedher about [facility] and she is in agreement for that as well. CRISIS is doing a safety plan incase the patient decides to leave AMA S REPRESENTATIVE PUBLICATIONS * Becca Stanford RN - 12/26/2024 9:19 AM CST CRISIS here to revaluate patient informed of events of earlier today. Medications as directed S REPRESENTATIVE PUBLICATIONS * Becca Stanford RN - 12/26/2024 8:51 AM CST Spoke at length with patient denies being suicidal or homicidal concerned about wanting to smoke. Attempted to get patient to wait for CRISIS not wanting to stay Called a friend of hers named Davian whodid not answer the phone [phone] also left a message for patient sister ( unknown name ) [phone] Is being cooperative will continue to observe S REPRESENTATIVE PUBLICATIONS * Lionel Staples MD - 12/26/2024 8:35 [...] They arranged for patient to go to [place] to get help with drug abuse. Patient [...] MD 12/26/2024 Lionel Staples MD 12/26/24 1219 S REPRESENTATIVE PUBLICATIONS * Becca Stanford RN - 12/26/2024 8:33 AM CST [facility] Officer Justyn have had a discussion with patient and they have no criteria to force her to stay. They stated she is not suicidal or homicidal at this time encouraging her to stay until CRISIS arrives [place] Officer Justyn spoke with Dr Staples to inform her of their conversation S REPRESENTATIVE PUBLICATIONS S REPRESENTATIVE PUBLICATIONS * Becca Stanford RN - 12/26/2024 8:23 AM CST [place] here talking with patient S REPRESENTATIVE PUBLICATIONS * Becca Stanford RN - 12/26/2024 8:21 AM CST Walking in the halls and in the Nurses station wanting to leave wanting to smoke asking for the police to be called. Call placed to [facility] dispatch in regards to patient walking out of the [facility] returned and continued to say she wants to leave. Call placed to CRISIS and they will come and revaluate her. S REPRESENTATIVE PUBLICATIONS * Becca Stanford RN - 12/26/2024 7:13 AM CST Assumed care of patient alert cooperative no compliant's waiting to hear back from faculties where paperwork was faxed S REPRESENTATIVE PUBLICATIONS * John Virgen MD - 12/26/2024 1:26 [...] They arranged for patient to go to [place] to get help with drug abuse. Patient [...] Medical History: Diagnosis Date ??? 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 Drug use: Yes Types: Methamphetamines, Marijuana S REPRESENTATIVE PUBLICATIONS S REPRESENTATIVE PUBLICATIONS * Karo Pena RN - 12/25/2024 11:04 PM CSTSummary: crisis Crisis contacted for evaluation S REPRESENTATIVE PUBLICATIONS * Deborah Huitron RN - 12/25/2024 10:17 [...] pharmacological methods for relief prior to arrival. S REPRESENTATIVE PUBLICATIONS documented in this encounter Plan of Treatment Not on file documented as of this encounter Procedures Procedure Name Priority Date/Time Associated Diagnosis Comments DRUG SCREEN RAPID STAT 12/25/2024 11: 24 PM SALES REPRESENTATIVE PUBLICATIONS TEST URINE STAT 12/25/2024 11:24 PM SALES REPRESENTATIVE PUBLICATIONS documented in this encounter Results * TEST URINE (12/25/2024 11:24 PM SALES REPRESENTATIVE PUBLICATIONS) URINE HCG TEST NEG NEGATIVE 12/25/2024 11:41 PM SALES REPRESENTATIVE PUBLICATIONS [facility] Comment: VERY DILUTE URINE SPECIMENS MAY NOT CONTAIN RETAIL DISTRICT MANAGER LEVELS OF HCG. IF IS STILL SUSPECTED, A SERUM HCG TEST IS RECOMMENDED. URINE SPECIMEN FROM URETHRA / Unknown 12/25/2024 11:24 PM SALES REPRESENTATIVE PUBLICATIONS John Virgen MD URINE ORDERABLES Final Result [facility] [address] [place] [address], [place] [phone] * (ABNORMAL) DRUG SCREEN RAPID (12/25/2024 11:24 PM SALES REPRESENTATIVE PUBLICATIONS) Pathologist [facility] AMPHETAMINE (U) NONE DETECTED NONE DETECTED 12/25/2024 11:45 PM SALES REPRESENTATIVE PUBLICATIONS [facility] BARBITURATES SCREEN (U) NONE DETECTED NONE DETECTED 12/25/2024 11:45 PM SALES REPRESENTATIVE PUBLICATIONS [facility] BENZODIAZEPINES SCREEN (U) DETECTED(A) NONE DETECTED 12/25/2024 11:45 PM SALES REPRESENTATIVE PUBLICATIONS [facility] BUPRENORPHINE SCREEN (U) DETECTED(A) NONE DETECTED 12/25/2024 11:45 PM SALES REPRESENTATIVE PUBLICATIONS [facility] COCAINE METABOLITES (U) NONE DETECTED NONE DETECTED 12/25/2024 11:45 PM SALES REPRESENTATIVE PUBLICATIONS [facility] METHAMPHETAMINE (U) DETECTED(A) NONE DETECTED 12/25/2024 11:45 PM SALES REPRESENTATIVE PUBLICATIONS [facility] METHADONE (U) NONE DETECTED NONE DETECTED 12/25/2024 11:45 PM SALES REPRESENTATIVE PUBLICATIONS [facility] OPIATE SCREEN (U) NONE DETECTED NONE DETECTED 12/25/2024 11:45 PM SALES REPRESENTATIVE PUBLICATIONS [facility] OXYCODONE SCREEN (U) NONE DETECTED NONE DETECTED 12/25/2024 11:45 PM SALES REPRESENTATIVE PUBLICATIONS [facility] PHENCYCLIDINE PCP (U) NONE DETECTED NONE DETECTED 12/25/2024 11:45 PM SALES REPRESENTATIVE PUBLICATIONS [facility] CANNABINOIDS SCREEN (U) NONE DETECTED NONE DETECTED 12/25/2024 11:45 PM SALES REPRESENTATIVE PUBLICATIONS [facility] TRICYCLIC ANTIDEPRESSANT SCREEN (U) NONE DETECTED NONE DETECTED 12/25/2024 11:45 PM SALES REPRESENTATIVE PUBLICATIONS [facility] Comment: NOTE: RESULTS OF THIS [...] URINE SPECIMEN / Unknown 12/25/2024 11:24 PM SALES REPRESENTATIVE PUBLICATIONS us John Virgen MD URINE ORDERABLES Final Result Performing Organization Address City/State/[facility] Co de Phone Number [facility] [address] [place] [address], [place] [phone] documented in this encounter Visit Diagnoses Diagnosis [...] 12/26/2024 9:07 AM Given 12/26/2024 9:18 AM SALES REPRESENTATIVE PUBLICATIONS 1 Film LORazepam (ATIVAN) tablet 1 mg 1 mg, Oral, Once, 1 dose, On Thu12/26/24 at 0915 Given 12/26/2024 9:18 AM SALES REPRESENTATIVE PUBLICATIONS 1 mg documented in this encounter Active and Recently Administered Medications Due to Daylight Saving Time, this section may contain times in both CDT and SALES REPRESENTATIVE PUBLICATIONS. Scheduled Medication Order 12/24/2024 12/25/2024 12/26/2024 buprenorphine-naloxone [...] Student) documented in this encounter Care Teams Strap Folding Machine Operator Relationship Specialty Start Date End [facility] [address] [place] [address] PCP - General Nurse Practitioner Family 12/23/24 documented as of this encounter
[2024-12-26 15:58] VITALS: BP 110/74; PULSE 81; RESP 17; TEMP 36.8; O2SAT 99
--- OUTSIDE RECORDS SUMMARY | 2024-12-26 16:04 | XMS_ITS | Encounter Summary ---
Author Organization [facility] Address [facility] [place] [address] Care Team Providers Care Technology Assistant Name Role Phone Delisa, May [facility] Primary Care Provider [phone] Encounter Details Date Type Department Care Team (Latest Contact Info) Description 12/25/2024 Travel Social History Tobacco Use Types Packs/Day Years Used Date Smoking Tobacco: Every Day Cigarettes Smokeless Tobacco: Never Alcohol Use Standard Drinks/Week Comments Not Currently 0 (1 standard drink = 0.6 oz pur e alcohol) [facility] Utilities Answer Date Recorded In the past 12 months has [employer] electric, gas, oil, or water [employer] threatened to shut off services in [...] any time in the past 12 m [facility], were you homeless or living in a group home (including now)? Yes 10/13/2023 Comments No Sex and Gender Information Value Date Recorded Sex Assigned at Female 10/17/2024 3:24 PM CDT Legal Sex Female 11:36 PM CDT Gender Identity Female 12/25/2024 10:22 PM TRAINING AND DEVELOPMENT SPECIALIST Sexual Orientation Straight 12/25/2024 10 :22 PM TRAINING AND DEVELOPMENT SPECIALIST documented as of this encounter Functional Status [...] 11:13 PM Deborah Cortes RN Active * [place] Suicide Severity Rating Scale (Screener/Recent Self-Report) Question [...] 1 Month) No 12/25/2024 11:13 PM Deborah Cotres RN A ctive 6. Suicidal Behavior (Lifetime) [...] Month) 2 12/25/2024 11:13 PM Deborah Cortes N, RN Active documented as of this encounter [...] on filedocumented in this encounter Care Teams Technology Assistant Relationship Specialty Start Date End Date DelisaMay, [facility] [address] [place] [address] PCP - General Nurse Practitioner Family 12/23/24 documented as of this encounter
--- OUTSIDE RECORDS SUMMARY | 2024-12-26 16:04 | XMS_ITS | Patient Health Record ---
Author Organization [facility] Address [address] [place] [address] Care Team Providers Care Fur Mixer Name Role Phone Alana Epps Primary Care Provider [phone] Kasey Ny Unavailable [phone] Ava Hernandez Unavailable [phone] Leandro Harris Unavailable [phone] Ana Verma Unavailable [phone] Braxton Costa Unavailable [phone] Allergies Allergen (clinical drug ingredient) Drug/Non Drug [...] neg BUP pos TCA neg FTY neg QuantiFERON-TB Gold Plus ([id number]) Reviewed date:09/22/2024 02:30:29 PM Interpretation:Normal Performing Lab:[facility] [place], [address] [facility], Phone - [phone], [facility] - [facility] Notes/Report: QuantiFERON Incubation Incubation performed. QuantiFERON-TB Gold [...] Screen *HIV 1, 2 Ab, p24 Ag ([id number]) Reviewed date:09/21/2024 02:19:40 PM Interpretation:Normal [facility]forming [facility], [address] [facility], Phone - [phone], Director - [facility] Notes/Report: HIV Ab/p24 Ag Screen Non Reactive Non Reactive HIV-1/HIV-2 antibodies and HIV-1 p24 antigen were NOT detected. There is no laboratory evidence of HIV infection. HIV Negative CMP 14 Comprehensive Metabol ic Panel* Reviewed date:09/21/2024 02:19:40 PM Interpretation:Normal Performing Lab[facility], [address] [facility], Phone - [phone], Director - [facility] Notes/Report: Glucose 73 70-99 mg/dL BUN 14 [...] Reviewed date:09/21/2024 02:19:40 PM Interpretation:Normal Performing Lab:[facility] [place], [address] 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 confirmed Problem Opioid use disorder (2925824465) Opioid use disorder (F11.99) Active confirmed Problem Tobacco user (142477401) Nicotine dependence with current use (F17.200) Active confirmed Vital Signs Heart Rate 75 /min 11/15/2024 Temperature 97.9 degrees Fahrenheit 10/21/2024 Respiratory Rate 16 /min 11/15/2024 Oximetry 98 % 11/15/2024 Blood pressure diastolic 74 mm Hg 11/15/2024 Height 61 in 11/15/2024 Blood pressure systolic 110 mm Hg 11/15/2024 Weight 112.6 lbs 11/15/2024 BMI 21.27 kg/m2 11/15/2024 Encounters Encounter Location Date Provider Diagnosis [facility] [place] [address] 09/20/2024 Alana Epps Methamphetamine use disorder, mild, in early remission F15.10 ; Opioid use disorder F11.99 ; Routine general medical examination at a health care facility Z00.00 and Nicotine dependence with current use F17.[address] [place] [address] 09/20/2024 Ava Sandereckbooneedwin Methamphetamine use disorder, mild, in early remission F15.10 and Bipolar 1 disorder, depressed F31.[address] [place] [address] 09/21/2024 Kasey Ny Bipolar 1 disorder, depressed F31.9 [place] [address] [address] [facility] [place] [address] 09/26/2024 Braxton Costa Thyroid nodule E04.1 ; Benign paroxysmal vertigo, bilateral H81.13 ; Systolic murmur I38 and Over weight E66.3 [place] [address] [place] [address] 10/21/2024 Alana Epps Opioid use disorder F11.99 [facility] [place] [address] 11/15/2024 Alana Epps Opioid use disorder F11.99 [facility] [address] [place] [address] 09/19/2024 Alana Epps [facility] [address] [facility] [place] [address] 09/20/2024 Alana Epps [place] [address] [address] [facility] [place] [address] 09/29/2024 Alana Epps Opioid use disorder F11.99 [place] [address] [address] [facility] [place] [address] 10/13/2024 Alana Epps Assessments Encounter Date Diagnosis (ICD Code) Assessment Notes Treatment Notes Treatment Clinical Notes Section Notes 09/21/2024 Bipolar 1 disorder, depressed (ICD-10 - F31.9) Start olanzapine to help with mood instability and sleep. Olanzapine 2.5mg po PRN daily for anxiety. 10mg scheduled po QHS. Labs completed recently. May self-administer medications or be administered own oral medications per [facility] protocols. Provided informed consent with understanding of [...] 11/15/2024 Opioid use disorder (ICD-10 - F11.99) 09/20/2024 Methamphetamine use disorder, mild, in early remission (ICD-10 - F15.10) 09/20/2024 Opioid use disorder (ICD-10 - F11.99) 09/20/2024 Methamphetamine use disorder, mild, in early remission (ICD-10 - F15.10) 09/26/2024 Systolic murmur (ICD-10 - I38) 09/20/2024 Bipolar 1 disorder, depressed (ICD-10 - F31.9) 09/20/2024 Routine general medical examination at a health care facility (ICD-10 - Z00.00) SUPR Programs: Based on an evaluation of [facility] Patient Placement Criteria, a recommendation for [...] ing, or if soaking through bandages. 09/26/2024 Over weight (ICD-10 - E66.3) 09/20/2024 [...] self-administe r their own oral medications per [facility] Protocol. Plan Of Treatment Future Test Test Name Order Date Echo doppler exam 09/26/2024 Ultrasound : Thyroid 09/26/2024 Insurance Providers Payer Name Payer Address Payer Phone Subscriber Number Group Number Insured Name Patient Relationship to Insured Coverage Start Date Coverage End Date [employer] [address] [place] [address] [id number] Jaycee Rouse Self - patient is the insured 3 [employer] [address] [place] [address] [id number] Jaycee Rouse Self - patient is the insured 5 [employer] [address] [place] [address] [id number] Jaycee Rouse Self - patient is the insured 5 Medical (General) History Medical History History ICD Code Manic Depression Surgical History Surgery Date(Month/Year) 3 c-sections right hand has pins gall bladder removed Hospitalization History Reason Date(Month/Year) gateway, multiple times between 2023- 5 06/2024
--- OUTSIDE RECORDS SUMMARY | 2024-12-26 16:04 | XMS_ITS | Clinical Summary ---
Author Organization [facility] Address [address] [place] [address] Care Team Providers Care Medical Laboratory Technologist Name Role Phone Christofer Stewart MD Primary [...] CDT - 12/17/2024 8:46 PM CDT Emergency [facility] Emergency Department [facility] [place] [address] Discharge Disposition: Left without being seen 10/21/2024 Telephone [facility] Primary [facility] at [place] [address] [facility] [address] [place] [address] Christofer Stewart MD 10/17/2024 1:35 AM CDT - 10/17/2024 2:55 AM CDT Emergency [facility] Emergency Department [address] [place] [address] Jamarcus Irvin MD Kanumuri, Raghu, MD Chest [...] on file Legal Sex Female 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 chest pain Views: 2 COMPARISON: 10/17/2024 Procedure Note Rick Grijalva MD - 12/17/2024 MEDICAL RECORDS NUMBER: [id number] PROCEDURE: XR CHEST PA LATERAL 2 VIEWS [...] last revised 2020. Testing performed by: [address] [address] Blood 12/17/2024 8:10 PM CDT 12/17/2024 8:14 PM CDT Hannah Muro Jr., MD LAB BLOOD ORDERABLES Fi nal Result Performing Organization Address City/[facility]/ZIP Co de Phone Number RAUL [address] [place] [address] * eGFR (12/17/2024 8:10 PM CDT) eGFR [...] was last reviewed 2020. Testing performed by: [facility], [address] [place] [address]., [address] Blood 12/17/2024 8:10 PM CDT 12/17/2024 8:14 PM CDT us Hannah Muro Jr., MD LAB BLOOD ORDERABLES Fi nal Result Performing Organization Address City/[facility]/ZIP Co de Phone Number RAUL [address] [place] [address] * Differential, auto (12/17/2024 8:10 PM CDT) [facility] Neutrophil abs 4.44 1.50 - 6.50 K/cumm Comment:Testing performed by : [address] [address] Imm gran abs 0.01 0.00 - 0.10 K/cumm [facility] Comment:Testing performed by : [address] [address] Lymphocyte abs 2.64 0.80 - 3.30 K/cumm [facility] Comment:Testing performed by : [address] [address] Monocyte abs 0.68 0.20 - 0.80 K/cumm [facility] Comment:Testing performed by : [address] [address] Eosinophil abs 0.10 0.00 - 0.50 K/cumm [facility] Comment:Testing performed by : [address] [address] Basophil abs 0.04 0.00 - 0.10 K/cumm [facility] Comment:Testing performed by : [address] [address] Neutrophil pct 56.1 % [facility] Comment: Interpretive Data Percent cell count reference ranges are not reported, since discordance with absolute values may lead to misinterpretation of CBC data. Current Interpretive Data was last revised on 2017. Testing performed by: [address] [address] Imm gran pct 0.1 % [facility] Comment: Interpretive Data Percent cell count reference ranges are not reported, since discordance with absolute values may lead to misinterpretation of CBC data. Current Interpretive Data was last revised on 2017. Testing performed by: [address] [address] Lymphocyte pct 33.4 % [facility] Comment: Interpretive Data Percent cell count reference ranges are not reported, since discordance with absolute values may lead to misinterpretation of CBC data. Current Interpretive Data was last revised on 2017. Testing performed by: [address] [address] Monocyte pct 8.6 % [facility] Comment: Interpretive Data Percent cell count reference ranges are not reported, since discordance with absolute values may lead to misinterpretation of CBC data. Current Interpretive Data was last revised on 2017. Testing performed by: [address] [address] Eosinophil pct 1.3 % RAUL Comment: Interpretive Data Percent cell count reference ranges are not reported, since discordance with absolute values may lead to misinterpretation of CBC data. Current Interpretive Data was last revised on 2017. Testing performed by: [address] [address] Basophil pct 0.5 % RAUL Comment: Interpretive Data Percent cell count reference ranges are not reported, since discordance with absolute values may lead to misinterpretation of CBC data. Current Interpretive Data was last revised on 2017. Testing performed by: [address] [address] Blood 12/17/2024 8:10 PM CDT 12/17/2024 8:14 PM CDT us Hannah Muro Jr., MD LAB BLOOD ORDERABLES nal Result [facility] [address] [facility] Department [place] [address] * (ABNORMAL) CBC with auto differential (12/17/2024 8:10 PM CDT) WBC 7.91 3.80 - 9.90 K/cumm Comment:Testing performed by : [address] [address] Hgb 11.2(L) 11.9 - 15.5 g/dL RAUL COL[facility] Comment:Testing performed by : [address] [address] Hct 32.7(L) 35.6 - 45.5 % RAUL [facility] Comment:Testing performed by : [address] [address] Plt 367 150 - 400 K/cumm RAUL [facility] Comment:Testing performed by : [address] [address] MPV 9.4 9.1 - 12.3 fL RAUL Comment:Testing performed by : [address] [address] RBC 3.68(L) 3.90 - 5.20 M/cumm [facility]UL [facility] Comment:Testing performed by : [address] [address] MCV 88.9 81.3 - 96.4 fL RAUL Comment:Testing performed by : [address] [address] MCH 30.4 27.1 - 33.3 pg RAUL Comment:Testing performed by : [address] [address] MCHC 34.3 32.3 - 35.7 g/dL RAUL Comment:Testing performed by : [address] [address] RDW CV 12.9 11.1 - 14.9 % RAUL Comment:Testing performed by : [address] [address] RDW SD 42.3 35.7 - 48.1 fL RAUL Comment:Testing performed by : [address] [address] NRBC abs 0.00 0.00 - 0.01 K/cumm RAUL Comment:Testing performed by : [address] [address] Blood Venous blood specimen / Unknown 12/17/2024 8:10 PM CDT 12/17/2024 8:14 PM CDT us Hannah Muro Jr., MD LAB BLOOD ORDERABLES Fi nal Result RAUL [address] [facility] Department [place] [address] * (ABNORMAL) Comprehensive metabolic panel (12/17/2024 8:10 PM CDT) Sodium 139 135 - 145 mmol/L Comment:Testing performed by : [address], [place]., [address] Potassium, pl 4.0 3.3 - 4.9 mmol/L RAUL Comment:Testing performed by : [address], [place]., [address] Chloride 104 97 - 110 mmol/L RAUL Comment:Testing performed by : [address], [place]., [address] CO2 26 22 - 32 mmol/L RAUL Comment:Testing performed by : [address], [place]., [address] Anion gap 9 2 - 15 mmol/L RAUL Comment:Testing performed by : [address], [place]., [address] BUN 17 6 - 25 mg/dL RAUL Comment:Testing performed by : [address], [place]., [address] Creatinine 0.80 0.60 - 1.10 mg/dL RAUL Comment:Testing performed by : [address], [place]., [address] Glucose 103 70 - 199 mg/dL [facility] Comment: Interpretive Data Fasting glucose [...] last revised 2022. Testing performed by: [address] [address] Calcium 9.1 8.5 - 10.3 mg/dL RAUL Comment:Testing performed by : [address], [place]., [address] Bilirubin, total 0.2 0.1 - 1.2 mg/dL RAUL Comment:Testing performed by : [address] [address] Protein, pl 6.3(L) 6.5 - 8.5 g/dL RAUL Comment:Testing performed by : [address] [address] Albumin 3.9 3.5 - 5.0 g/dL RAUL COLON Comment:Testing performed by : [address], [address] Alk phos 69 40 - 130 Units/L RAUL Comment:Testing performed by : [address] [address] ALT 10 7 - 45 Units/L RAUL Comment:Testing performed by : [address], [address] AST 16 10 - 45 Units/L RAUL Comment:Testing performed by : [address], [address] Blood 12/17/2024 8:10 PM CDT 12/17/2024 8:14 PM CDT us Hannah Muro Jr., MD LAB BLOOD ORDERABLES Fi nal Result RAUL [address] [facility] Department of Laboratories [place], [place] [id number] * ECG 12 lead (12/17/2024 8:02 PM CDT) Ventricular Rate EKG/Min 67 BPM [facility] Atrial Rate 67 BPM [facility] [place]-Interval (MSEC) 120 ms [facility] QRS-Interval (MSEC) 94 ms [facility] QT-Interval (MSEC) 392 ms [facility] QTc 414 ms [facility] P [place] 65 degrees [facility] R [place] 60 degrees [facility] T [place] 58 degrees [facility] Diagnosis Normal sinus rhythm Possible Left atrial enlargement Borderline ECG No previous ECGs available Confirmed by MD KARI, HANNAH ([id number]) on 12/18/2024 10:03:54 AM [facility] 12/17/2024 8:02 PM CDT 12/18/2024 10:03 AM CDT us Hannah Muro Jr., MD ECG ORDERABLES Final R esult [facility] * XR Chest Pa Lateral 2 Vw (10/17/2024 2:20 AM CDT) Anatomical Region Laterality Modality Body, Chest N/A Computed Radiogr aphy 10/17/2024 2:35 AM CDT Narrative 10/17/2024 2:36 AM CDT EXAM DESCRIPTION: XR CHEST PA LATERAL 2 VIEWS REASON FOR STUDY: cough Pt has flight of ideas and multiple medical complaints arrived via [facility] discharged [facility] this AM. Smoker TECHNIQUE: Frontal and lateral [...] Ml Foster M.D. SN: SN Report ID: [id number] Reading Location: [id number] Procedure Note Ml Foster MD - 10/17/2024 EXAM DESCRIPTION: XR CHEST PA LATERAL 2 VIEWS REASON FOR STUDY: cough Pt has flight of [facility]. Smoker TECHNIQUE: Frontal and lateral [...] Ml Foster M.D. SN: SN Report ID: [id number] Reading Location: [id number] us Tre Roche MD IMG XR PROCEDURES Final Result * ECG 12 lead (10/17/2024 12:07 AM CDT) 10/17/2024 12:0 7 AM CDT Narrative [facility] - 10/17/2024 6:47 AM CDT Vent Rate: 84 bpm RR Interval: 709 msec [place] Interval: 111 msec QRS Duration: 96 msec QT Interval: 362 msec QTC Interval: 403 msec P-R-T [place]: 80 - 73 - 64 degrees IMPRESSION: Baseline artifact, probable SINUS RHYTHM WITH SHORT [place] INTERVAL LEFT ATRIAL ENLARGEMENT [-0.15mV P WAVE IN V1/V2] POSSIBLE LEFT VENTRICULAR HYPERTROPHY [VOLTAGE CRITERIA PLUS LAE OR QRS WIDENING] ABNORMAL ECG NO CHANGE FROM PREVIOUS TRACING NOTED Electronically Signed By: Francois Casarez MD us Jamarcus Irvin MD ECG ORDERABLES Final Result [facility] from Last 3 Months Insurance [facility] Advance Directives For more information, please contact: [phone] * Full Code (Latest Code Status on File) Date Activated Date Inactivated Comments 10/20/2023 12:17 PM 10/20/2023 8:58 PM Care Teams Medical Laboratory Technologist Relationship Specialty Start Date End Date Christofer Stewart MD PCP - General Family Medicine 06/23/23
--- OUTSIDE RECORDS SUMMARY | 2024-12-26 16:05 | XMS_ITS | Clinical Summary ---
Author Organization [facility] Address [address] [place] [address] Care Team Providers Care Frame Stripper Name Role Phone Mario Logan MD Primary Care Provider Source Comments [facility],non-owned Affiliates and Associated Physician Practices is amultiple site organization consisting of ambulatory clinics and hospital sitesin [place], [place], [place] and [place]. This disclosure is being madepursuant to the Care Everywhere program and may not contain all information available regarding this patient. Last updated 17.[facility] Allergies Active Allergy Reactions Criticality Noted Date [...] naloxone HCl (NARCAN) 4 MG/0.1ML nasal spray [place] 1 spray into the nose as needed [...] migh t be different from the original. [id number] Problem Noted Date Diagnosed Date Non-reactive NST [...] 02/28/2014 Overview (05/05/2019): Confirmed dose-270 mg from [facility]. Scanned Into media. Previously used heroin and [...] on file Legal Sex Female 7:09 AM [employer] Gender Identity Not on file Sexual Orientation [...] P24 AG PANEL Routine 03/10/2019 1:24 PM [employer] Supervision of high risk in second trimester HEPATITIS C ANTIBODY Routine 11/11/2018 12:07 PM CDT Supervision of high risk , antepartum from Last 3 Months or Most Recently Relevant to Health Maintenance Results * HIV-1 HIV-2 ANTIBODY + HIV P24 AG PANEL (03/10/2019 1:24 PM [employer]) Pathologist [facility] [place] HIV1/2 Ab + P24 Ag Non Reactive Non Reactive 03/10/2019 2:57 PM [employer] [facility] Blood BLOOD SPECIMEN / Unknown Venipuncture / Unknown 03/10/2019 1:24 PM [employer] 03/10/2019 1:49 PM [employer] Narrative [facility] - 03/10/2019 2:57 PM [employer] No Laboratory evidence of HIV infection. us Ivana Thomas TRANSLATIONAL SPECIALIST-BIOMETRIC FINGERPRINTING TECHNICIAN LAB - CHEMISTRY ORDERAB LES Final Result [facility] [address] [place] [address] * HEPATITIS C ANTIBODY (11/11/2018 12:07 PM CDT) HCV Antibody Screen Non Reactive Non Reactive 11/11/2018 1:55 PM CDT [facility] HCV S/C Ratio 0.19 0.00 - 0.79 11/11/2018 1:55 PM CDT [facility] Comment: Dofisk-zn-yhlsid ratio (S/CO) <0.80: Non Reactive Blood BLOOD SPECIMEN / Unknown Venipuncture / Unknown 11/11/2018 12:07 PM CDT 11/11/2018 12:56 PM CDT Narrative [facility] - 11/11/2018 1:55 PM CDT Non Reactive - Antibodies to Hepatitis C virus (HCV) were not detected, result does not exclude early acute HCV infection. Helen Zurita TRANSLATIONAL SPECIALIST-BIOMETRIC FINGERPRINTING TECHNICIAN LAB - CHEMISTRY ORDERA BLES Final Result Performing Organization Address City/State/[facility] Co de Phone Number [facility] [address] [place] [address] from Last 3 Months or Most Recently Relevant to Health Maintenance Insurance [facility] Advance Directives * Full Code (Latest [...] 11:00 AM 03/17/2019 7:31 PM Care Teams Frame Stripper Relationship Specialty Start Date End Date Mario Logan MD [address] [place] [address] PCP - General 05/24/19
--- OUTSIDE RECORDS SUMMARY | 2024-12-26 16:05 | XMS_ITS | Encounter Summary ---
Author Organization [facility] Address [facility] [place] [address] Care Team Providers Care Tape Sewing Machine Operator Name Role Phone None, Provider Primary Care Provider Diana HerculesMay [facility] Primary Care Provider [phone] Encounter Details Date Type Department Care Team (Late st Contact Info) Description 07/31/2018 Abstract [facility] CONVERSION [address] [place] [address] , Generic Conversion, Social History Tobacco Use Types Packs/Day Years Used Date Smoking Tobacco: Never Assessed Comments Unknown Sex and Gender Information Value Date Recorded Sex Assigned at Female 10/17/2024 3:24 PM CDT Legal Sex Female 11:36 PM CDT Gender Identity Female 12/25/2024 10:22 PM SALESPERSON [employer] Sexual Orientation Straight 12/25/2024 10 :22 PM SALESPERSON [employer] documented as of this encounter Plan of Treatment Not on file documented as of this encounter Visit Diagnoses Not on filedocumented in this encounter Additional Health Concerns Infection Onset Date Last Indicated Resolved Time COVID-19 Rule Out 10/17/2024 10/17/2024 10/17/2024 5:06 PM CDT Respiratory Rule Out 10/18/2024 10/18/2024 025 1:50 PM CDT documented as of this encounter Care Teams Tape Sewing Machine Operator Relationship Specialty Start Date End Date None, Provider, PCP - General UNKNOWN PHYSICIAN SPECIALTY 07/13/23 DelisaMay, CLOUD OPERATIONS ENGINEER [address] [place] [address] PCP - General Nurse Practitioner Family 12/23/24 documented as of this encounter
--- OUTSIDE RECORDS SUMMARY | 2024-12-26 16:05 | XMS_ITS | Clinical Summary ---
Author Organization [facility] Address [address], [facility] [address] [place] [address] Phone Care Team Providers Care Air Sampling And Monitoring Name Role Phone DelisaMay N BULB FILLER, SNOW REMOVER Primary Care Provider [phone] Allergies Active Allergy Reactions Criticality Noted Date [...] Nurse Triage [facility] [address] [place] [phone] Wendie Hercules, BULB FILLER, SNOW REMOVER Appointment; Chest Pain 12/19/2024 10:31 AM CDT - 12/19/2024 1:03 PM CDT Emergency [facility] [address] [place] [address] Willis Lee, PAC Chest pain Discharge Disposition: Discharged to home or Selfcare 12/19/2024 Travel 12/05/2024 Results Follow-Up [facility] [address] [place] [address] Wendie Hercules, LUIS FELIPE, SNOW REMOVER US THYROID, VITAMIN D, 25 HYDROXY TOTAL, VITAMIN B12, Additional followed-up results: 5 12/02/2024 10:49 AM CDT - 12/02/2024 11:59 PM CDT Hospital [facility] Ul[facility]ound [address] [place] [address] Wendie Hercules, BULB FILLER, SNOW REMOVER Discharge Disposition: Discharged to home or Selfcare 12/02/2024 Travel 11/21/2024 2:30 PM CDT Office Visit [facility] [address] [place] [address] Wendie Hercules, BULB FILLER, SNOW REMOVER Depression with anxiety (Primary Dx); At risk for sexually transmitted disease due to unprotected sex Discharge Disposition: Discharged to home or Selfcare 11/21/2024 Travel 11/17/2024 9:39 AM CDT - 11/17/2024 11:17 AM CDT [facility] [address] [place] [address] Hugh Palencia, DO Viral syndrome Discharge Disposition: Discharged to home or Selfcare 11/17/2024 Telephone [facility] [address] [place] [address] Oehl, Wendie Pizarro APRN, CNP 11/17/2024 Nurse Triage [facility] [address] [place] [address] Wendie Hercules APRN, CNP Breathing Problem 11/16/2024 2:15 PM CDT Office Visit [facility] [address] [place] [address] Óscar Doss APRN, ELVIA Chest discomfort (Primary Dx) Discharge Disposition: Discharged to home or Selfcare 11/16/[address] [facility] Mammography [address] [place] [address] Wendie Hercules APRN, CNP 11/15/2024 10:03 PM CDT - 11/16/2024 12:[address] [facility] Emergency [address] [place] [address] Billy Cagle MD Chest pain, unspecified type Discharge Disposition: Discharged to home or Selfcare 11/15/2024 Travel 11/11/2024 Telephone [facility] [address] [place] [address] Wendie Hercules APRN, ELVIA Need Order 10/21/2024 2:00 PM CDT Office Visit [facility] [address] [place] [address] Wendie Hercules APRN, ELVIA Encounter for preventative adult health care exam with abnormal findings (Primary Dx); History of methadone use; Anxiety and depression; Nodule of left lobe of thyroid gland; Vaginal pain; Encounter for screening mammogram for breast cancer Discharge Disposition: Discharged to home or Selfcare 10/21/2024 Travel 10/21/2024 Telephone [facility] [address] [place] [address] Provider, None New Patient from Last 3 [...] st Contact Info) Description 01/03/2025 2:30 PM DULSER Office Visit [facility] [address] [place] [address] Delisa, Wendie N, BULB FILLER, SNOW REMOVER 2 [facility] [place] [address] [place] [address] Health Maintenance Due Date Last Done Comments [...] of4 resultswithin the time period is included. [facility] TROPONIN I, HIGH SENSITIVITY- OLIVA 2.9 <=14.0 ng/L 12/19/2024 1:10 PM CDT [facility] Comment: High-sensitivity troponin I results are reported in ng/L making the result appear to be 1,000 times higher than the contemporary troponin I value which is reported in ng/ml. Results from [facility]. Blood Venipuncture / Unknown 12/19/2024 12:33 PM CDT 12/19/2024 12:44 PM CDT us Willis Lee PAC CHEMISTRY ORDERABLES Final Result [facility] [address] [place] [address] * NT-proBNP (12/19/2024 10:44 AM CDT) [facility] NT PROBNP 177.3 <450.0 pg/mL 12/19/2024 11:17 AM CDT [facility] Comment: AGE pg/mL [...] Willis Lee PAC CHEMISTRY ORDERABLES Final Result [facility] [address] [place] [address] * (ABNORMAL) CBC with Auto Differential (12/19/2024 10:44 AM CDT) Only the most recent of4 resultswithin the time period is included. WBC 5.71 4.00 - 12.00 10(3)/mcL 12/19/2024 10:52 AM CDT [facility] RBC 4.01 3.80 - 5.30 10(6)/mcL 12/19/2024 10:52 AM CDT [facility] HEMOGLOBIN (HGB) 12.2 12.0 - 15.8 g/dL 12/19/2024 10:52 AM CDT [facility] HEMATOCRIT (HCT) 37.7 36.0 - 47.0 % 12/19/2024 10:52 AM CDT [facility] MCV 94.0 82.0 - 96.0 fL 12/19/2024 10:52 AM CDT [facility] MCH 30.4 26.0 - 34.0 pg 12/19/2024 10:52 AM CDT [facility] MCHC 32.4 31.0 - 36.0 g/dL 12/19/2024 10:52 AM CDT [facility] PLATELET COUNT 396 140 - 440 10(3)/mcL 12/19/2024 10:52 AM CDT [facility] RDW 12.7 11.8 - 15.5 % 12/19/2024 10:52 AM CDT [facility] MPV 9.5(L) 9.7 - 12.4 fL 12/19/2024 10:52 AM CDT [facility] NEUTROPHILS 70.2 47.0 - 73.0 % 12/19/2024 10:52 AM CDT [facility] LYMPHOCYTES 20.1 18.0 - 42.0 % 12/19/2024 10:52 AM CDT [facility] MONOCYTES 8.1 4.0 - 12.0 % 12/19/2024 10:52 AM CDT [facility] EOSINOPHILS 0.7 0.0 - 5.0 % 12/19/2024 10:52 AM CDT [facility] BASOPHILS 0.7 0.0 - 1.0 % 12/19/2024 10:52 AM CDT [facility] IMMATURE GRANULOCYTE 0.2 0.0 - 0.4 % 12/19/2024 10:52 AM CDT [facility] ABSOLUTE NEUTROPHILS 4.01 1.60 - 7.70 10(3)/[facility] 12/19/2024 10:52 AM CDT [facility] ABSOLUTE LYMPHOCYTES 1.15(L) 1.30 - 3.20 10(3)/[facility] 12/19/2024 10:52 AM CDT [facility] ABSOLUTE MONOCYTES 0.46 0.20 - 1.00 10(3)/[facility] 12/19/2024 10:52 AM CDT [facility] ABSOLUTE EOSINOPHIL 0.04 0.00 - 0.40 10(3)/[facility] 12/19/2024 10:52 AM CDT [facility] ABSOLUTE BASOPHILS 0.04 0.00 - 0.10 10(3)/[facility] 12/19/2024 10:52 AM CDT [facility] ABSOLUTE IMMATURE GRANULOCYTE 0.01 0.00 - 0.03 10 (3) mcL. 12/19/2024 10:52 AM CDT [facility] NRBC PER 100 WBC 0 12/20/19 10:52 AM CDT [facility] Blood Venipuncture / Unknown 12/19/2024 10:44 AM CDT 12/19/2024 10:50 AM CDT Willis Lee PAC HEMATOLOGY ORDERABLE S Final Result [facility] [address] [place] [address] * Magnesium (12/19/2024 10:44 AM CDT) Only the most recent of2 resultswithin the time period is included. MAGNESIUM 2.1 1.6 - 2.6 mg/dL 12/19/2024 11:13 AM CDT [facility] Blood Venipuncture / Unknown 12/19/2024 10:44 AM CDT 12/19/2024 10:50 AM CDT Willis Lee PAC CHEMISTRY ORDERABLES Final Result [facility] [address] [place] [address] * Ethyl Alcohol(Ethanol) [id number] (12/19/2024 10:44 AM CDT) ETHANOL <10 <10 mg/dL 12/19/2024 11:13 AM CDT [facility] Blood Venipuncture / Unknown 12/19/2024 10:44 AM CDT 12/19/2024 10:50 AM CDT Narrative [facility] - 12/19/2024 11:13 AM CDT FOR MEDICAL USE ONLY Willis Lee PAC CHEMISTRY ORDERABLES Final Result [facility] [address] [place] [address] * CMP (12/19/2024 10:44 AM CDT) Only the most recent of4 resultswithin the time period is included. SODIUM 140 136 - 145 mmol/L 12/19/2024 11:13 AM CDT [facility] POTASSIUM 4.0 3.5 - 5.1 mmol/L 12/19/2024 11:13 AM CDT [facility] CHLORIDE 104 98 - 107 mmol/L 12/19/2024 11:13 AM CDT [facility] CO2, VENOUS 26 22 - 30 mmol/L 12/19/2024 11:13 AM CDT [facility] ANION GAP 14.0 <18.0 mmol/L 12/19/2024 11:13 AM CDT [facility] GLUCOSE 88 70 - 99 mg/dL 12/19/2024 11:13 AM CDT [facility] BUN 9 5 - 18 mg/dL 12/19/2024 11:13 AM CDT [facility] CREATININE, BLOOD 0.74 0.60 - 1.00 mg/dL 12/19/2024 11:13 AM CDT [facility] BUN/CREATININE RATIO 12 12 - 20 ratio 12/19/2024 11:13 AM CDT [facility] TOTAL PROTEIN 7.4 6.0 - 8.0 g/dL 12/19/2024 11:13 AM CDT [facility] ALBUMIN 4.4 3.5 - 5.0 g/dL 12/19/2024 11:13 AM CDT [facility] A/G RATIO 1.5 1.0 - 2.2 12/19/2024 11:13 AM CDT [facility] CALCIUM 9.4 8.7 - 10.5 mg/dL 12/19/2024 11:13 AM CDT [facility] T BILI 0.5 0.2 - 1.2 mg/dL 12/19/2024 11:13 AM CDT [facility] SGOT (AST) 24 <43 U/L 12/19/2024 11:13 AM CDT [facility] SGPT (ALT) 17 <56 U/L 12/19/2024 11:13 AM CDT [facility] ALKALINE PHOSPHATASE 74 40 - 150 U/L 12/19/2024 11:13 AM CDT [facility] GFR, ESTIMATED >60 >=60 12/19/2024 11:13 AM CDT [facility] Comment: Creatinine Clearance is the preferred criteria for selecting drug dose adjustments in renally impaired patients. The GFR is provided as additional pertinent clinical information. GFR is reported in mL/min/1.73 sq m. Calculation based on the 2020 Chronic Kidney Disease Epidemiology Collaboration (CKD-EPI) equation refit without adjustment for race. GFR, EST. >60 >=60 11:13 AM CDT [facility] Comment: Creatinine Clearance is the preferred criteria for selecting drug dose adjustments in renally impaired patients. The GFR is provided as additional pertinent clinical information. GFR is reported in mL/min/1.73 sq m. Calculation based on the 2009 Chronic Kidney Disease Epidemiology Collaboration (CKD-EPI). GFR, EST. NONAFRICAN >60 >=60 12/19/2024 11:13 AM CDT [facility] Comment: Creatinine Clearance is the preferred [...] Willis Lee PAC CHEMISTRY ORDERABLES Final Result [facility] [address] [place] [address] * EKG 12 LEAD (12/19/2024 10:36 AM CDT) Only the most recent of3 resultswithin the time period is included. Ventricular Rate 70 BPM EXTERNAL EKG Atrial Rate 70 BPM EXTERNAL EKG P-R Interval 118 ms EXTERNAL EKG QRS Duration 90 ms EXTERNAL EKG Q-T Duration 384 ms EXTERNAL EKG QTC CALCULATION 414 ms EXTERNAL EKG P [place] 63 degrees EXTERNAL EKG R [place] 60 degrees EXTERNAL EKG T [place] 52 degrees EXTERNAL EKG 12/19/2024 10:3 6 AM CDT Impressions EXTERNAL EKG - 12/19/2024 4:09 PM CDT Normal sinus rhythm Normal ECG When compared with ECG of 17-NOV-2024 09:47, No significant change was found Confirmed by Jn Nguyen ([id number]) on 12/19/2024 4:09:26 PM Narrative Procedure Note Jn Nguyen MD PhD - 12/19/2024 IMPRESSION: Normal sinus rhythm Normal ECG When compared with ECG of 17-NOV-2024 09:47, No significant change was found Confirmed by Jn Nguyen ([id number]) on 12/19/2024 4:09:26 PM us Billy Cagle MD IMG ECG ORDERABLES Final Result Performing Organization Address City/[facility] Co de Phone Number EXTERNAL [...] CDT DICTATING PHYSICIAN: Mickey Mccarty D.O. - [facility] US THYROID, 12/02/2024 11:09 AM [...] (2) with internal vascularity. Echogenicity: Hyperechoic (1). Tkqjse-erri-Mwte: no (0). Margins: Smooth (0). Echogenic foci: None (0). ACR TI-RADS Classification: TR 3 (3 points) Procedure Note Mickey Mccarty, DO - 12/03/2024 DICTATING PHYSICIAN: Mickey Mccarty D.O. - [facility] US THYROID, 12/02/2024 11:09 AM CLINICAL [...] solid (2) with internalvascularity. Echogenicity: Hyperechoic (1). Ohyghg-dgxm-Yerq: no (0). Margins: Smooth (0). Echogenic foci: [...] 2017 [employer]. May N Delisa BRISCOE CNP [facility] US ORDERABLES Final R esult * VITAMIN D, 25 HYDROXY TOTAL (12/02/2024 10:47 AM CDT) VITAMIN D, 25 HYDROX 27.9 ng/mL 12/02/2024 12:19 PM CDT [facility] Blood Venipuncture / Unknown 12/02/2024 10:47 AM CDT 12/02/2024 11:12 AM CDT Narrative [facility] - 12/02/2024 12:19 PM CDT Published reference ranges for Vitamin D vary depending on time and place and method of testing, and on patient's age, sex, ethnicity and levels of other measured analytes such as parathormone, calcium and phosphorus. The result should be evaluated in conjunction with clinical findings and suspicions. [employer] and [employer]ocrine Clinical Practice Guidelines: Status Vitamin D levels (ng/mL) Deficient <=20 At risk of inadequacy 21-29 Sufficient 30-100 Centers of Disease Control and Prevention Guidelines: Status Vitamin D levels (ng/mL) Deficient <13 At risk of inadequacy 13-19 Sufficient 20-50 Possibly harmful >50 References: [employer], 2010 Dietary reference intakes for calcium and vitamin D. [place]: The National Academies Press. Betsy M, Ariadne N, Glen ZAMUDIO, et al., Evaluation, treatment, and prevention of Vitamin D deficiency: an Endocrinology Clinical Practice Guideline. JCEM 2011 96: 7 9981-7923. Kenan A, Desmond C, Tyra D, et al., Vitamin D Status: [place], 0688-4667, NCHS data brief, no. 59, MD [place]: National Center for Health Statistics. 2010. May N Delisa BRISCOE CNP CHEMISTRY ORDERABLES Adelaide l Result [facility] [address] [place] [address] * THYROID SCREEN WITH REFLEX (12/02/2024 10:47 AM CDT) TSH 1.382 0.300 - 5.000 mIU/L 12/02/2024 12:07 PM CDT [facility] Blood Venipuncture / Unknown 12/02/2024 10:47 AM CDT 12/02/2024 11:12 AM CDT us May N Delisa BRISCOE, SNOW REMOVER CHEMISTRY ORDERABLES Adelaide l Result [facility] [address] [place] [address] * VITAMIN B12 (12/02/2024 10:47 AM CDT) VITAMIN B12 418 213 - 816 pg/mL 12/02/2024 12:19 PM CDT [facility] Blood Venipuncture / Unknown 12/02/2024 10:47 AM CDT 12/02/2024 11:12 AM CDT May N Delisa BRISCOE, SNOW REMOVER CHEMISTRY ORDERABLES Adelaide l Result Performing Organization Address City/[facility]/ZIP Co de Phone Number [facility] [address] [place] [address] * THYROXINE (T4) FREE (12/02/2024 10:47 AM CDT) T4 FREE 0.8 0.7 - 1.9 ng/dL 12/02/2024 12:08 PM CDT [facility] Blood Venipuncture / Unknown 12/02/2024 10:47 AM CDT 12/02/2024 11:12 AM CDT us May N Delisa BRISCOE, SNOW REMOVER CHEMISTRY ORDERABLES Adelaide l Result [facility] [address] [place] [address] * LIPID PANEL (12/02/2024 10:47 AM CDT) CHOLESTEROL 175 <200 mg/dL 12/02/2024 11:54 AM CDT [facility] TRIGLYCERIDES 127 <150 mg/dL 12/02/2024 11:54 AM CDT [facility] HDL CHOLESTEROL 55 >40 mg/dL 11:54 AM CDT [facility] LDL 95 <130 mg/dL 12/02/2024 11:54 AM CDT [facility] VLDL 25 10 - 50 mg/dL 12/02/2024 11:54 AM T [facility] CHOL/HDL RATIO 3.2 0.0 - 4.4 12/02/2024 11:54 AM CDT [facility] NON-HDL CHOLESTEROL 120 <130 mg/dL 12/02/2024 11:54 AM [facility] IS THE PATIENT REQUIRED TO BE FASTING? Yes 12/02/2024 11:54 AM [facility] HAS THE PATIENT BEEN FASTING? Yes 12/02/2024 11:54 AM [facility] Blood Venipuncture / Unknown 12/02/2024 10:47 AM CDT 12/02/2024 11:12 AM CDT Narrative [facility] - 12/02/2024 11:54 AM T NCEP [...] for LDL cholesterol. us May N Oehl BULB FILLER, SNOW REMOVER CHEMISTRY ORDERABLES Adelaide l Result Performing Organization Address City/[facility]/ZIP Co de Phone Number [facility] [address] [place] [address] * RSV,SARS-COV-2,INFLUENZA A&B BY PCR (11/17/2024 9:55 AM CDT) FLU A Negative Negative, Error 11/17/2024 11:19 AM CDT [facility] FLU B Negative Negative 11/17/2024 11:19 AM CDT [facility] RESP SYNC VIRUS Negative Negative 11:19 AM CDT [facility] SARSCOV2 NOT DETECTED (Reference Range for this test is Not Detected) 11/17/2024 11:19 AM CDT [facility] Comment:This test was perfor med by a Reverse Transfer Station Attendant PCR Method. Nasal NASOPHARYNGEAL STRUCTURE / Unknown Non-Phlebotomy Collection / Unknown 11/17/2024 9:55 AM CDT 11/17/2024 10:36 AM CDT us Hugh Palencia DO MICROBIOLOGY - GENERAL ORDERABLES Final Result Performing Organization Address [facility] Co de Phone Number [facility] [address] [place] [address] * Gold Top Tube (11/17/2024 9:45 AM CDT) Blood No Phlebotomy Charged / Unknown 11/17/2024 9:45 AM CDT 11/17/2024 10:38 AM CDT us Hugh Palencia DO CHEMISTRY ORDERABLES Fi nal Result Performing Organization Address City/[facility]/ZIP Co de Phone Number [facility] [address] [place] [address] * Blue Top Tube (11/17/2024 9:45 AM CDT) Blood No Phlebotomy Charged / Unknown 11/17/2024 9:45 AM CDT 11/17/2024 10:38 AM CDT us Hugh Candido Palencia DO HEMATOLOGY ORDERABLES F inal Result [facility] [address] [place] [address] * XR CHEST SINGLE VIEW PORTABLE (11/15/2024 [...] Result * Human Chorionic Gonadotropin Scrn Serum [id number] (11/15/2024 10:26 PM CDT) PREG-HCG Negative Negative 11/15/2024 11:28 PM CDT [facility] Blood Venipuncture / Unknown 11/15/2024 10:26 PM CDT 11/15/2024 11:06 PM CDT Billy Cagle MD CHEMISTRY ORDERABLES Adelaide l Result Performing Organization Address City/[facility]/ZIP Co de Phone Number [facility] [address] [place] [address] * Lipase (11/15/2024 10:26 PM CDT) LIPASE 19 8 - 78 U/L 11/15/2024 11:28 PM CDT [facility] Blood Venipuncture / Unknown 11/15/2024 10:26 PM CDT 11/15/2024 11:06 PM CDT Billy Cagle MD CHEMISTRY ORDERABLES Adelaide l Result Performing Organization Address City/[facility]/ZIP Co de Phone Number [facility] [address] [place] [address] from Last 3 Months Insurance MEDICAID [place] Care Teams Air Sampling And Monitoring Relationship Specialty Start Date End Date Delisa, May N, BULB FILLER, SNOW REMOVER [address] [address] PCP - General Advanced Practice Nurse 10/21/24
--- OUTSIDE RECORDS SUMMARY | 2024-12-26 16:06 | XMS_ITS | Clinical Summary ---
Author Organization [facility] Address [address] [place] [address] Care Team Providers Care Senior Producer Name Role Phone Delisa, May [facility] Primary Care Provider [phone] Allergies Active Allergy Reactions Criticality Noted Date Comments Codeine Anaphylaxis,Shortnes s of Breath High 07/13/2015 Ketorolac Other (see comment) 07/13/2015 Rapid Heart Rate Naproxen GI Upset 07/13/2015 No problems with Ibuprofen Penicillins Unknown 07/13/2023 Medications buprenorphine- naloxone (SUBOXONE) 4 mg-[address] 1 Film under the tongue 2 (two) times a day. 09/30/19 25 Active cyclobenzaprin e (FLEXERIL) 10 MG tablet Take 1 tablet (10 mg total) by mouth 3 (three) times daily as needed for Muscle Spasms. 15 tablet 12/19/19 Active Additional Information Patient not taking.Reported on 12/23/2024 hydrOXYzine (VISTARIL) 25 MG capsule Take 1 capsule (25 mg total) by mouth 4 (four) times daily as needed for Anxiety. 09/22/19 25 025 Discontinued OLANZapine (ZYPREXA) 10 MG tablet Take 1 tablet (10 mg total) by mouth nightly at bedtime. 09/22/19 25 025 Discontinued traZODone (DESYREL) 100 MG tablet Take 1 tablet (100 mg total) by mouth nightly at bedtime. 09/30/19 25 025 Discontinued multi vitamin/minera ls (THERA-M ENHANCED) tablet Take 1 tablet by mouth daily. 025 Discontinued predniSONE 50 MG tablet Take 1 tablet (50 mg total) by mouth daily for 10 days. 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 Encounters Date Type Department Care Team Description 12/25/2024 10:14 PM COSMETIC COUNSELOR - 12/26/2024 11:40 AM [facility] Emergency [facility] Emergency Room [address] [place] [id number] Rl Virgen MD Bel, Lionel Pineda MD Chest Pain Discharge Disposition: Left Against Medical Advice 12/25/2024 7:26 PM COSMETIC COUNSELOR - 12/25/2024 9:07 PM [facility] Emergency [facility] Emergency Room [address] [place] [address] Rl Virgen MD Chest Pain Discharge Disposition: Home or Self Care (Routine Discharge) 12/25/2024 Travel 12/24/2024 3:59 PM CDT - 12/24/2024 8:20 PM CDT Emergency [facility] Emergency Room [address] [place] [id number] Salo Dillon MD Palmer, Aunaly E, MD Chest Pain Discharge Disposition: Home or Self Care (Routine Discharge) 12/24/2024 Travel 12/23/2024 2:42 PM CDT - 12/23/2024 4:51 PM CDT Emergency [facility] Emergency Room [address] [place] [address] Salo Dillon MD Chest Pain Discharge Disposition: Home or Self Care (Routine Discharge) 12/23/2024 Travel 12/17/2024 11:53 PM CDT - 12/18/2024 2:43 AM CDT Emergency [facility] Emergency [address] [place] [id number] Billy Mayfield DO Chest Pain Discharge Disposition: Home or Self Care (Routine Discharge) 12/17/2024 Travel 12/15/2024 2:10 AM CDT - 12/15/2024 3:41 AM CDT Emergency [facility] Room [address] [place] [address] [address] [place] [address] Jens Mendoza MD Abdominal Pain Discharge Disposition: Home or Self Care (Routine Discharge) 12/15/2024 Travel 12/14/2024 7:01 PM CDT - 12/14/2024 11:09 PM CDT Emergency [facility] Room [address] [place] [address] [place] [address] Jens Mendoza MD Chest Pain; Shortness Of Breath Discharge Disposition: Home or Self Care (Routine Discharge) 12/14/2024 Travel 10/18/2024 9:46 AM CDT - 10/18/2024 10:30 PM CDT Emergency [facility] [place] [address] Yovana Zamora MD Geldmacher, Kelly J, MD Medical Problem Discharge Disposition: [facility] 10/17/2024 2:59 PM CDT - 10/17/2024 8:00 PM CDT Emergency [facility] Room [address] [place] [address] [place] [address] Familia Carter MD Medical Problem Discharge Disposition: [...] 0.6 oz pur e alcohol) [facility] Utilities Answer Date Recorded In the past 12 months has e [employer], gas, oil, or water [employer] threatened to shut off services in your [...] any time in the past 12 m [facility], were you homeless or living in a penitentiary (including now)? Yes 10/13/2023 Comments No Sex and Gender Information Value Date Recorded Sex Assigned at Female 10/17/2024 3:24 PM CDT Legal Sex Female 11:36 PM CDT Gender Identity Female 12/25/2024 10:22 PM COSMETIC COUNSELOR Sexual Orientation Straight 12/25/2024 10 :22 PM COSMETIC COUNSELOR Last Filed Vital Signs Vital Sign Reading Time Taken Comments Blood Pressure 91/55 12/26/2024 7:00 AM COSMETIC COUNSELOR Pulse 57 12/26/2024 7:00 AM COSMETIC COUNSELOR Temperature 36.5 C (97.7 F) 12/26/2024 7:00 AM COSMETIC COUNSELOR Respiratory Rate 18 12/25/2024 10:18 PM COSMETIC COUNSELOR Oxygen Saturation 97% 12/26/2024 7:00 AM COSMETIC COUNSELOR Inhaled Oxygen Concentration - - Weight 49.9 kg (110 lb) 12/25/2024 10:18 PM COSMETIC COUNSELOR Height 154.9 cm (5' 1) 12/25/2024 10:18 PM COSMETIC COUNSELOR Body Mass Index 20.78 12/25/2024 10:18 PM COSMETIC COUNSELOR Plan of Treatment Health Maintenance Due Date [...] Procedure Name Priority Date/Time Associated Diagnosis Comments TEST URINE STAT 12/25/2024 11:24 PM COSMETIC COUNSELOR DRUG SCREEN RAPID STAT 12/25/2024 11: 24 PM COSMETIC COUNSELOR ECG 12-LEAD Routine 12/25/2024 7:28 PM COSMETIC COUNSELOR CTA CHEST STAT 12/24/2024 5:42 PM CDT [...] AM CDT XR CHEST PORTABLE STAT 12/14/2024 9: 31 PM CDT TROPONIN, QUANT STAT 12/14/2024 9:25 [...] Maintenance Results * (ABNORMAL) DRUG SCREEN RAPID (12/25/2024 11:24 PM COSMETIC COUNSELOR) Only the most recent of3 resultswithin the time period is included. AMPHETAMINE (U) NONE DETECTED NONE DETECTED 12/25/2024 11:45 PM COSMETIC COUNSELOR [facility] BARBITURATES SCREEN (U) NONE DETECTED NONE DETECTED 12/25/2024 11:45 PM [facility] BENZODIAZEPINES SCREEN (U) DETECTED(A) NONE DETECTED 12/25/2024 11:45 PM [facility] BUPRENORPHINE SCREEN (U) DETECTED(A) NONE DETECTED 12/25/2024 11:45 PM [facility] COCAINE METABOLITES (U) NONE DETECTED NONE DETECTED 12/25/2024 11:45 PM [facility] METHAMPHETAMINE (U) DETECTED(A) NONE DETECTED 12/25/2024 11:45 PM [facility] METHADONE (U) NONE DETECTED NONE DETECTED 12/25/2024 11:45 PM COSMETIC COUNSELOR [facility] OPIATE SCREEN (U) NONE DETECTED NONE DETECTED 12/25/2024 11:45 PM COSMETIC COUNSELOR [facility] OXYCODONE SCREEN (U) NONE DETECTED NONE DETECTED 12/25/2024 11:45 PM COSMETIC COUNSELOR [facility] PHENCYCLIDINE PCP (U) NONE DETECTED NONE DETECTED 12/25/2024 11:45 PM [facility] CANNABINOIDS SCREEN (U) NONE DETECTED NONE DETECTED 12/25/2024 11:45 PM COSMETIC COUNSELOR [facility] TRICYCLIC ANTIDEPRESSANT SCREEN (U) NONE DETECTED NONE DETECTED 12/25/2024 11:45 PM COSMETIC COUNSELOR [facility] Comment: NOTE: RESULTS OF THIS [...] URINE SPECIMEN / Unknown 12/25/2024 11:24 PM COSMETIC COUNSELOR us Rl Virgen MD URINE ORDERABLES Final Result Performing Organization Address [facility] Co de Phone Number [facility] [address] [place] [address], [place] [phone] * TEST URINE (12/25/2024 11:24 PM COSMETIC COUNSELOR) Only the most recent of2 resultswithin the time period is included. URINE HCG TEST NEG NEGATIVE 12/25/2024 11:41 PM COSMETIC COUNSELOR [facility] Comment: VERY DILUTE URINE SPECIMENS MAY NOT CONTAIN WEB FEEDER LEVELS OF HCG. IF IS STILL SUSPECTED, A SERUM HCG TEST IS RECOMMENDED. URINE SPECIMEN FROM URETHRA / Unknown 12/25/2024 11:24 PM COSMETIC COUNSELOR us Rl Virgen MD URINE ORDERABLES Final Result Performing Organization Address [facility] Co de Phone Number [facility] [address] [place] [address], [place] [phone] * ECG 12 lead (12/25/2024 7:28 PM COSMETIC COUNSELOR) Only the most recent of7 resultswithin the time period is included. ECG QT 374 [facility] RAD ECG QTC 404 [facility] RAD 12/25/2024 7:28 PM COSMETIC COUNSELOR Narrative [facility] RAD - 12/25/2024 7:36 PM COSMETIC COUNSELOR [facility] Test Date: 2024-12-25 Pat Name: JJ SLATER Department: 85 Room: EXAM 505 Gender: Female Software Engineer Advisor: : 1980 Requested By: RL VIRGEN Order Number: [id number] Reading MD: Bubba Reyes Measurements Intervals [place] Rate: 70 P: 74 [place]: 126 QRS: 69 QRSD: 97 T: 62 QT: 374 QTc: 404 Interpretive Statements SINUS RHYTHM Compared to ECG 12/24/2024 16:10:34 Sinus bradycardia no longer present ETIC COUNSELOR Procedure Note Bubba Reyes MD - 12/25/2024 [facility] Test Date: 2024-12-25 Pat Name: JJ SLATER Department: 85 Room: EXAM 505 Gender: Female Software Engineer Advisor: : 1980 Requested By: RL VIRGEN Order Number: [id number] Reading : Bubba Reyes Measurements Intervals [place] Rate: 70 P: 74 [place]: 126 QRS: 69 QRSD: 97 T: 62 QT: 374 QTc: 404 Interpretive Statements SINUS RHYTHM Compared to ECG 12/24/2024 16:10:34 Sinus bradycardia no longer present ETIC COUNSELOR us Rl Virgen MD ECG ORDERABLES Final Result [facility] RAD * CTA CHEST (12/24/2024 5:42 PM CDT) Anatomical Region Laterality Modality Chest Computed Tomogra phy 12/24/2024 5:56 PM CDT Impressions 12/24/2024 6:02 PM CDT IMPRESSION: 1. Technically limited evaluation for pulmonary embolism. 2. Stable 9 mm lung nodule. Recommend continued surveillance as above. Referred By: Interpreted By: Everett Peterson MD, 12/24/2024 5:56 PM Narrative 12/24/2024 6:02 PM CDT [facility] [address] [place] [id number] Examination: CTA CHEST Clinical history: Chest pain [...] Procedure Note Everett Peterson MD - 12/24/2024 [facility] [address] [place] [id number] Examination: CTA CHEST Clinical history: Chest pain [...] 4:34 PM Narrative 12/24/2024 4:41 PM CDT [address] [place] [address] Examination: XR CHEST PORTABLE Exam time: 12/24/2024 4:14 PM Clinical history: Chest pain. Comparison: 12/23/2024. Technique: AP portable upright radiograph of the chest. Findings: Normal heart size. Normal distribution of the pulmonary vasculature. No focal parenchymal lung consolidation, pleural effusion, or pneumothorax. No acute osseous findings. Surgical clips noted in the upper abdomen. Procedure Note Juan Alberto Meier MD - 12/24/[address] [place] [address] Examination: XR CHEST PORTABLE Exam time: 12/24/2024 [...] Dillon MD GENERAL IMAGING Final Result * PROTIME/INR, VENOUS (12/24/2024 4:10 PM CDT) Only the most recent of3 resultswithin the time period is included. PROTIME 12.3 9.1 - 12.4 SEC 12/24/2024 4:46 PM CDT [facility] INR 1.1 12/24/2024 4:46 PM CDT [facility] Comment: Recommend INR ranges for Oral Anticoagulant Therapy: Mechanical Cardiac Values 2.5-3.5 All others indication 2.0-3.0 12/24/2024 4:10 PM CDT Salo Dillon MD LABORATORY Final Result [facility] [address] [place] [address], * (ABNORMAL) COMPREHENSIVE METABOLIC PANEL (12/24/2024 4:10 PM CDT) Only the most recent of6 resultswithin the time period is included. GLUCOSE 84 70 - 99 MG/DL 12/24/2024 4:35 PM CDT [facility] BUN 21(H) 7 - 18 MG/DL 12/24/2024 4:35 PM CDT [facility] CREATININE S/P/B 0.78 0.55 - 1.02 MG/DL 12/24/2024 4:35 PM CDT [facility] SODIUM S/P/B 139 136 - 145 MMOL/L 12/24/2024 4:35 PM CDT [facility] POTASSIUM S/P/B 4.0 3.5 - 5.1 MMOL/L 12/24/2024 4:35 PM CDT [facility] CHLORIDE S/P/B 103 100 - 108 MMOL/L 12/24/2024 4:35 PM CDT [facility] CO2 31.8 21 - 32 MMOL/L 12/24/2024 4:35 PM CDT [facility] CALCIUM S/P/B 8.5 8.5 - 10.1 MG/DL 12/24/2024 4:35 PM CDT [facility] BILIRUBIN TOTAL S/P/B 0.5 0.2 - 1.2 MG/DL 12/24/2024 4:35 PM CDT [facility] TOTAL PROTEIN S/P/B 6.4 6.4 - 8.2 G/DL 12/24/2024 4:35 PM CDT [facility] ALBUMIN S/P/B 3.4 3.4 - 5.0 G/DL 12/24/2024 4:35 PM CDT [facility] AST 11(L) 15 - 37 U/L 12/24/2024 4:35 PM T [facility] ALT 12(L) 14 - 55 U/L 12/24/2024 4:35 PM T [facility] ALKALINE PHOSPHATASE S/P/B 71 50 - 136 U/L 12/24/2024 4:35 PM T [facility] ANION GAP 4.2(L) 5 - 15 MMOL/L 12/24/2024 4:35 PM T [facility] BUN CREATININE RATIO 26.9(H) 6 - 26 12/24/2024 4:35 PM T [facility] A/G RATIO 1.1 1.0 - 2.0 RATIO 12/24/2024 4:35 PM [facility] GFR ESTIMATE >90 >90 ML/MIN/1.7 3 M2 12/24/2024 4:35 PM T [facility] Comment: NOTE: eGFR is not calculated for patients <18 years of age. This is an estimated GFR calculation using the new CKD EPI creatinine equation without race and so does not require a correction factor for race. This estimated GFR should not be used for calculating drug doses. 12/24/2024 4:10 PM CDT us Salo Dillon MD LABORATORY Final Result [facility] [address] [place] [address], * (ABNORMAL) CBC W/DIFF AUTOMATED (12/24/2024 4:10 PM CDT) Only the most recent of7 resultswithin the time period is included. WBC 5.15 4.4 - 11.0 x10'3/uL 12/24/2024 4:23 PM CDT [facility] RBC 3.80(L) 4.50 - 5.10 x10'6/uL 12/24/2024 4:23 PM CDT [facility] HGB 11.6(L) 12.3 - 15.3 G/DL 12/24/2024 4:23 PM CDT [facility] HCT 35.3(L) 35.9 - 44.6 % 12/24/2024 4:23 PM CDT [facility] MCV 92.9 80.0 - 96.0 FL 12/24/2024 4:23 PM CDT [facility] MCH 30.5 25.3 - 30.9 PG 12/24/2024 4:23 PM CDT [facility] MCHC 32.9 31.0 - 34.1 G/DL 12/24/2024 4:23 PM CDT [facility] RDW 13.2 12.4 - 15.1 % 12/24/2024 4:23 PM CDT [facility] PLT 337 151 - 353 x10'3/uL 12/24/2024 4:23 PM CDT [facility] MPV 9.6 9.6 - 12.0 FL 12/24/2024 4:23 PM CDT [facility] RBC MORPHOLOGY NORMAL 12/24/2024 4:23 PM CDT [facility] PLT MORPH. NORMAL 12/24/2024 4:23 PM CDT [facility] WBC MORPHOLOGY NORMAL 12/24/2024 4:23 PM CDT [facility] LYMPHOCYTES % 29.5 15.8 - 45.0 % 12/24/2024 4:23 PM CDT [facility] NEUTROPHILS % 59.4 42.1 - 71.9 % 12/24/2024 4:23 PM CDT [facility] MONOCYTES % 8.7 5.7 - 12.5 % 12/24/2024 4:23 PM CDT [facility] EOSINOPHILS 1.2 0.0 - 5.6 % 12/24/2024 4:23 PM CDT [facility] BASOPHILS 1.0 0.0 - 1.3 % 12/24/2024 4:23 PM CDT [facility] ABS. NEUTROPHILS 3.06 1.40 - 6.00 x10'3/uL 12/24/2024 4:23 PM CDT [facility] IMMATURE GRANS % 0.2 0.0 - 0.5 % 12/24/2024 4:23 PM CDT [facility] ABS. LYMPHOCYTES 1.52 0.80 - 4.70 x10'3/uL 12/24/2024 4:23 PM CDT [facility] 12/24/2024 4:10 PM CDT Salo Dillon MD LABORATORY Final Result [facility] [address] [place] [address], * TROPONIN, QUANT (12/24/2024 4:10 PM CDT) Only the most recent of4 resultswithin the time period is included. Pathologist [facility] TROPONIN I HIGH SENSITIVITY 6 0 - 50 ng/L 12/24/2024 4:38 PM CDT [facility] Comment: HIGH DOSES OF BIOTIN, TROPONIN-SPECIFIC AUTOANTIBODIES, AND ANTIBODY THERAPY CONTAINING HAMA MAY INTERFERE WITH THIS TEST RESULT. CORRELATION TO CLINICAL HISTORY AND PRESENTATION RECOMMENDED. 12/24/2024 4:10 PM CDT us Salo Dillon MD LABORATORY Final Result Performing Organization Address City/[facility]/ZIP Co de Phone Number [facility] [address] [place] [address], [place] [phone] * LIPASE (12/24/2024 4:10 PM CDT) Only the most recent of2 resultswithin the time period is included. LIPASE 63 16 - 77 UNITS/L 12/24/2024 4:35 PM CDT [facility] 12/24/2024 4:10 PM CDT us Salo Dillon MD LABORATORY Final Result Performing Organization Address [facility] de Phone Number [facility] [address] [place] [address], [place] [phone] * D-DIMER, QUANTITATIVE (12/18/2024 12:00 AM CDT) D-DIMER 271 0 - 500 ng{FEU}/mL 12/18/2024 1:02 AM CDT [facility] EXCLUSION STATEMENT 12/18/2024 1:02 AM CDT [facility] Comment: D-Dimer values less than or [...] DO LABORATORY Final Result Performing Organization Address [facility]/ZIP Co de Phone Number [facility] [address] [place] [address], [id number] * HCG QUANT SERUM - CHORIONIC GONADOTROPIN () (12/18/2024 12:00 AM CDT) HCG QUANTITATIVE <1 MIU/ML 12/19/19 1:07 AM CDT [facility] Comment: <5 IS NEGATIVE 5-25 IS BORDERLINE >25 IS POSITIVE ASSAY PERFORMED BY CHEMILUMINESCENCE METHODOLOGY USING SIEMENS CPM [employer] [facility]. PATIENT RESULTS DETERMINED BY ASSAYS USING DIFFERENT MANUFACTURERS FOR METHODS MAY NOT BE COMPARABLE. 12/18/2024 Emily Fung NP LABORATORY Final Result Performing Organization Address [facility] Co de Phone Number [facility] [address] [place] [address], [place] [phone] * CT HEAD WO CON (10/18/2024 8:19 PM CDT) Anatomical Region Laterality Modality Head Computed Tomogra phy 10/18/2024 8:20 PM CDT Impressions 10/18/2024 8:22 PM CDT IMPRESSION: No acute intracranial abnormalities identified. Referred By: Interpreted By: Gaurav Damon DO, 10/18/2024 8:20 PM Narrative 10/18/2024 8:22 PM CDT [address] [address] EXAMINATION: CT head without contrast HISTORY: Confusion. [...] Procedure Note Gaurav Damon DO - 10/18/2024 [place] [address] EXAMINATION: CT head without contrast HISTORY: Confusion. [...] URINE CLEAN CATCH 10/18/2024 4:30 PM CDT [facility] SPECIAL REQUESTS NO SPECIAL REQUEST 10/18/2024 4:30 PM CDT [facility] CULTURE RESULT POLYMICROBIAL GROWTH CONSISTENT WITH NORMAL GENITAL CAM. SUSCEPTIBILITIES NOT ROUTINELY PERFORMED. 10/19/2024 8:45 AM CDT [facility] URINE SPECIMEN OBTAINED BY CLEAN CATCH PROCEDURE / Unknown 10/18/2024 4:30 PM CDT 10/18/2024 8:10 PM CDT us Yovana Zamora MD MICROBIOLOGY - GENERAL ORDERA BLES Final Result [facility] [address] [place] [address], [place] [phone] * RESPIRATORY PCR PANEL 2 (10/18/2024 12:33 PM CDT) ADENOVIRUS PCR (RESP) NOT DETECTED NOT DETECTED 10/18/2024 1:50 PM CDT [facility] CORONAVIRUS 229E PCR (RESP) NOT DETECTED NOT DETECTED 10/18/2024 1:50 PM CDT [facility] CORONAVIRUS HKU1 PCR (RESP) NOT DETECTED NOT DETECTED 10/18/2024 1:50 PM CDT [facility] CORONAVIRUS NL63 PCR (RESP) NOT DETECTED NOT DETECTED 10/18/2024 1:50 PM CDT [facility] CORONAVIRUS OC43 PCR (RESP) NOT DETECTED NOT DETECTED 10/18/2024 1:50 PM CDT [facility] METAPNEUMOVIRUS PCR (RESP) NOT DETECTED NOT DETECTED 10/18/2024 1:50 PM CDT [facility] RHINOVIRUS/ENTEROV IRUS PCR (RESP) NOT DETECTED NOT DETECTED 10/18/2024 1:50 PM CDT [facility] INFLUENZA A PCR (RESP) NOT DETECTED NOT DETECTED 10/18/2024 1:50 PM CDT [facility] INFLUENZA B PCR (RESP) NOT DETECTED NOT DETECTED 10/18/2024 1:50 PM CDT [facility] PARAINFLUENZA 1 PCR (RESP) NOT DETECTED NOT DETECTED 10/18/2024 1:50 PM CDT [facility] PARAINFLUENZA 2 PCR (RESP) NOT DETECTED NOT DETECTED 10/18/2024 1:50 PM CDT [facility] PARAINFLUENZA 3 PCR (RESP) NOT DETECTED NOT DETECTED 10/18/2024 1:50 PM CDT [facility] PARAINFLUENZA 4 PCR (RESP) NOT DETECTED NOT DETECTED 10/18/2024 1:50 PM CDT [facility] RSV PCR (RESP) NOT DETECTED NOT DETECTED 10/18/2024 1:50 PM CDT [facility] B PARAPERTUSIS PCR (RESP) NOT DETECTED NOT DETECTED 10/18/2024 1:50 PM CDT [facility] BORDETELLA PERTUSSIS PCR (RESP) NOT DETECTED NOT DETECTED 10/18/2024 1:50 PM CDT [facility] CHLAMYDOPHILA PNEUMONIAE PCR (RESP) NOT DETECTED NOT DETECTED 10/18/2024 1:50 PM CDT [facility] MYCOPLASMA PNEUMONIAE PCR (RESP) NOT DETECTED NOT DETECTED 10/18/2024 1:50 PM CDT [facility] CORONAVIRUS SARS COV 2 PCR (RESP) NOT DETECTED NOT DETECTED 10/18/2024 1:50 PM CDT [facility] NASOPHARYNGEAL SWAB / Unknown 10/18/2024 12:33 PM CDT us Yovana Zamora MD MICROBIOLOGY - GENERAL ORDERA BLES Final Result [facility] [address] [place] [address], [place] [phone] * (ABNORMAL) URINALYSIS, AUTO, COMPLETE (10/18/2024 11:00 AM CDT) SPECIMEN TYPE URINE CLEAN CATCH 10/18/2024 11:01 AM CDT [facility] COLOR (U) DARK BROWN 10/18/2024 11:23 AM CDT [facility] TRANSPARENCY TURBID 10/18/2024 11:23 AM T [facility] SPECIFIC GRAVITY (U) 1.034(H) 1.001 - 1.030 10/18/2024 11:23 AM CDT [facility] U PH 5.5 5.0 - 9.0 10/18/2024 11:23 AM T [facility] LEUKOCYTES (U) 250(A) NEGATIVE 10/18/2024 11:23 AM T [facility] NITRITES NEGATIVE NEGATIVE 10/18/2024 11:23 AM T [facility] PROTEIN RANDOM (U) 100(H) <30 MG/DL 10/18/2024 11:23 AM T [facility] GLUCOSE (U) NORMAL NORMAL MG/DL 10/18/2024 11:23 AM T [facility] KETONES MG/DL (U) 60(A) NEGATIVE MG/DL 10/18/2024 11:23 AM T [facility] UROBILINOGEN NORMAL NORMAL MG/DL 10/18/2024 11:23 AM T [facility] BILIRUBIN (U) NEGATIVE NEGATIVE MG/DL 10/18/2024 11:23 AM T [facility] BLOOD (U) 3+(A) NEGATIVE 10/18/2024 11:23 AM T [facility] MUCUS MANY /LPF 10/18/2024 11:23 AM T [facility] WBC/HPF >100(H) <6 /HPF 10/18/2024 11:23 AM CDT [facility] RBC/HPF >100(H) <6 /HPF 10/18/2024 11:23 AM CDT [facility] SQUAMOUS EPITHELIALS MODERATE /HPF 10/18/2024 11:23 AM CDT [facility] URINE SPECIMEN OBTAINED BY CLEAN CATCH PROCEDURE / Unknown 10/18/2024 11:00 AM CDT us Yovana Zamora MD URINE ORDERABLES Final Result Performing Organization Address City/[facility]/ZIP Co de Phone Number [facility] [address] [place] [id number], [place] [phone] * (ABNORMAL) MAGNESIUM (10/18/2024 10:45 AM CDT) MAGNESIUM 2.5(H) 1.8 - 2.4 MG/DL 10/18/2024 12:06 PM CDT [facility] 10/18/2024 10:4 5 AM CDT Yovana Zamora MD LABORATORY Final Result Performing Organization Address City/[facility]/ZIP Co de Phone Number [facility] [address] [place] [id number], [place] [phone] * (ABNORMAL) SALICYLATE (10/18/2024 10:45 AM CDT) SALICYLATES 2.0(L) 2.8 - 20.0 MG/DL 10/18/2024 11:14 AM CDT [facility] Comment: THERAPEUTIC: 2.8-20.0 Toxic Level: >=30 10/18/2024 10:4 5 AM CDT Yovana Zamora MD LABORATORY Final Result Performing Organization Address City/[facility]/ZIP Co de Phone Number [facility] [address] [place] [address], * CK (CPK) (10/18/2024 10:45 AM CDT) CPK 88 21 - 215 U/L 10/18/2024 12:06 PM CDT [facility] 10/18/2024 10:4 5 AM CDT Yovana Zamora MD LABORATORY Final Result Performing Organization Address [facility] Co de Phone Number [facility] [address] [place] [address], * THYROID STIM HORMONE, TSH (10/18/2024 10:17 AM CDT) TSH 1.380 0.358 - 3.74 uIU/ML 10/18/2024 11:12 AM CDT [facility] Comment: HIGH DOSES OF BIOTIN MAY INTERFERE WITH THIS TEST RESULT. CORRELATION TO CLINICAL HISTORY AND PRESENTATION RECOMMENDED. 10/18/2024 10:1 7 AM CDT Yovana Zamora MD LABORATORY Final Result Performing Organization Address City/[facility]/ZIP Co de Phone Number [facility] [address] [place] [address], * ETHANOL (10/18/2024 10:17 AM CDT) Only the most recent of2 resultswithin the time period is included. ALCOHOL S/P/B <0.003 <0.003 G/DL 10/18/2024 11:12 AM CDT [facility] 10/18/2024 10:1 7 AM CDT Yovana Zamora MD LABORATORY Final Result Performing Organization Address [facility] Co de Phone Number [facility] [address] [place] [address], [place] [phone] * (ABNORMAL) ACETAMINOPHEN (10/18/2024 10:17 AM CDT) ACETAMINOPHEN S/P/B <2.0(L) 10.0 - 30.0 MCG/ML 10/18/2024 11:12 AM CDT [facility] Comment: THERAPEUTIC: 10-30 TOXIC: >200 10/18/2024 10:1 7 AM CDT Yovana Zamora MD LABORATORY Final Result Performing Organization Address [facility] de Phone Number [facility] [address] [place] [address], [place] [phone] * (ABNORMAL) BASIC METABOLIC PANEL (10/17/2024 4:12 PM CDT) SODIUM S/P/B 140 136 - 145 MMOL/L 10/17/2024 5:06 PM CDT [facility] POTASSIUM S/P/B 3.5 3.5 - 5.1 MMOL/L 10/17/2024 5:06 PM CDT [facility] CHLORIDE S/P/B 103 98 - 107 MMOL/L 10/17/2024 5:06 PM CDT [facility] CO2 27.0 21.0 - 32.0 MMOL/L 10/17/2024 5:06 PM CDT [facility] GLUCOSE 98 70 - 99 MG/DL 10/17/2024 5:06 PM CDT [facility] Comment: FASTING GLUCOSE 100 TO 125 MG/DL IS CONSISTENT WITH IMPAIRED FASTING GLUCOSE. FASTING GLUCOSE >125 MG/DL IS CONSISTENT WITH DIABETES. RANDOM GLUCOSE >200 MG/DL WITH HYPERGLYCEMIC SYMPTOMS IS CONSISTENT WITH DIABETES. PER ADA GUIDELINES BUN 18 6 - 24 MG/DL 10/17/2024 5:06 PM CDT [facility] CREATININE S/P/B 1.18(H) 0.55 - 1.02 MG/DL 10/17/2024 5:06 PM CDT [facility] CALCIUM S/P/B 10.0 8.4 - 10.5 MG/DL 10/17/2024 5:06 PM CDT [facility] ANION GAP 10.0 5.0 - 15.0 MMOL/L 10/17/2024 5:06 PM CDT [facility] OSMOLALITY (CALC) 292 MOSM/KG 025 5:06 PM T [facility] Comment:REFERENCE RANGE NOT ESTABLISHED GFR ESTIMATE 59(L) >89 ML/MIN/1. 73 M2 10/17/2024 5:06 PM CDT [facility] GFR NOTES GFR REFERENCE S: 10/17/2024 5:06 PM T [facility] Comment: THE ESTIMATED GFR IS [...] us Familia Carter MD LABORATORY Final Result [facility] [address] [place] [address], * CORONAVIRUS (COVID-19) ANTIGEN (10/17/2024 4:05 PM CDT) Pathologist [facility] CORONAVIRUS ANTIGEN IA NEGATIVE NEGATIVE 10/17/2024 5:06 PM CDT [facility] Comment: NEGATIVE RESULTS DO NOT [...] SPECIMEN TYPE NASAL 10/17/2024 4:43 PM CDT [facility] NASAL NASAL STRUCTURE / Unknown 10/17/2024 4:05 PM CDT Familia Carter MD MICROBIOLOGY - GENERAL ORDERAB LES Final Result [facility] [address] [place] [address], * HEPATITIS PANEL,ACUTE (10/13/2023 3:24 AM CDT) [facility] HEPATITIS B SURFACE AG NON-REACT VARGHESE NON-REACT VARGHESE 10/13/2023 1:41 PM CDT [facility] Comment:HBsAg NOT DETECTED. HEP B CORE IGM NON-REACT VARGHESE NON-REACT VARGHESE 10/13/2023 1:41 PM CDT [facility] Comment: IgM ANTI HBc NOT DETECTED. DOES NOT EXCLUDE THE POSSIBILITY OF EXPOSURE TO OR INFECTION WITH HBV. NO RETEST REQUIRED. HIGH DOSES OF BIOTIN MAY INTERFERE WITH THIS TEST RESULT. CORRELATION TO CLINICAL HISTORY AND PRESENTATION RECOMMENDED. HAV IGM NON-REACT VARGHESE NON-REACT VARGHESE 10/13/2023 1:41 PM CDT [facility] Comment: IgM ANTI HAV NOT DETECTED. DOES NOT EXCLUDE THE POSSIBILITY OF EXPOSURE TO OR INFECTION WITH HAV. LEVELS OF IgM ANTI HAV MAY BE BELOW THE CUTOFF IN EARLY INFECTION. HEPATITIS C AB NON-REACT VARGHESE NON-REACT VARGHESE 10/13/2023 1:42 PM CDT [facility] Comment: ANTIBODIES TO HCV NOT DETECTED. DOES NOT EXCLUDE THE POSSIBILITY OF EXPOSURE TO HCV. 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
--- NOTE | 2024-12-26 16:16 | ED_ITS ---
HPI - Abdominal Pain General Chief Complaint: Abdominal Pain Stated Complaint: abdominal pain, constipation Time Seen by Provider: 12/26/24 16:16 Source: patient Mode of arrival: ambulatory Limitations: no limitations History of Present Illness HPI narrative: Patient walked in to the ED complaining of chronic abdominal pain been going for months, was seen by different doctor in different emergency room for the last few days/weeks and months for the same symptom without specific diagnosis. Patient feels like something rambling inside her abdomen which get worse with the eating and drinking and smoking. She denies any fever, chills, nausea, vomiting, diarrhea constipation. Patient reports a lot of stress in her life, and would like to have medicine to help her to sleep. She denies suicidal or homicidal ideation. History of anxiety, depression and psych disorder. Patient was seen at least 4 time in our hospital in and at [facility] for similar symptoms, was seen yesterday and the day before at [facility] with normal blood workup. Patient is telling me that she would like to get MRI of abdomen Related Data Home Medications ?Medication ?Instructions ?Recorded ?Confirmed ?Last Taken ?Type aripiprazole 5 mg tablet (Abilify) 5 mg PO DAILY 05/1712/15/24 Unknown History lorazepam 0.5 mg tablet (Ativan) 0.5 mg PO Q6H PRN anx iety 05/17/24 12/15/24 Unknown History buprenorphine 8 mg-naloxone 2 mg 1 tablet sublingual D AILY 12/15/24 12/21/24 Unknown History sublingual tablet Allergies Allergy/AdvReac Type Severity Reaction Status Date / Time Penicillins Allergy Severe Difficulty Verified 12/26/24 16:19 Swallowing codeine AdvReac Swelling Verified 12/26/24 16:19 Review of Systems Review of Systems: All systems reviewed & are unremarkable except as noted in HPI and below PMFSH Past Medical History Medical History Drug abuse Tooth decay Surgical History Surgical History History of x3 Family History Family History Father No problems noted. Father Lung cancer Mother Heart disease Social History Social History Years smoked: 20 Smoking status: Current every day smoker Tobacco type: cigarettes Second hand tobacco smoke exposure: Yes Alcohol intake: former Substance use: former Substance use type: methamphetamine Gender identity (if verbalized by the patient): Female Spiritual care concerns: No Exam Narrative: General appearance: Well-developed, malnourished, looks depressed Skin: Normal color Head: Normocephalic, nontraumatic Eyes: Clear conjunctiva ENT: Oropharynx normal, ears normal, nose normal Neck: Supple, nontender Chest and respiratory: Airway patent, no respiratory distress, no accessory muscle use Heart: Regular rate/rhythm Abdomen: Soft, no localized tenderness, no swelling, no guarding or rebound, no organomegaly, quiet bowel sounds Vascular: Normal peripheral pulses, normal capillary refill. Musculoskeletal: Normal range of motion, nontender back Neurologic: Alert and oriented ?3, PATIENT ATTENDANT is normal as tested, no gross motor deficit Course Vital Signs Vital signs: Vital Signs Temperature 36.8 C 12/26/24 15:58 Pulse Rate 81 12/26/24 15:58 Respiratory Rate 17 12/26/24 15:58 Blood Pressure 110/74 12/26/24 15:58 Pulse Oximetry 99 12/26/24 15:58 Oxygen Delivery Room Air 12/26/24 15:58 Temperature 36.8 C 12/26/24 15:58 Pulse Rate 81 12/26/24 15:58 Respiratory Rate 17 12/26/24 15:58 Blood Pressure 110/74 12/26/24 15:58 Pulse Oximetry 99 12/26/24 15:58 Oxygen Delivery Room Air 12/26/24 15:58 MDM - Abdominal Pain MDM Narrative Medical decision making narrative: Patient presents with chronic abdominal pain and chest pain and insomnia for months was seen by numerous doctor and numerous emergency room for the same symptom without specific diagnosis Vital signs are stable Physical examination remarkable for depression Differential diagnosis anxiety like symptoms, depression, insomnia, spastic colon. Patient had a lot of blood workup and imaging over the last few visits to [facility] and to [facility] and to [facility] in the last few days, weeks and months without significant abnormality. Blood workup or imaging are not required at this time. My plan to discharge patient on Bentyl and hydroxyzine and to follow-up with steel melter for further evaluation. The pt was discharged to home.the pt,s condition upon discharge was fair,education was provided to the pt in reference to the final impression,discharge study results,treatment,prognosis and need for follow up . Differential Diagnosis Differential diagnosis: Likely other (As above) Medical Records Attestation: I reviewed the patient's medical records. Critical Care Time Critical Care Time Critical Care Time: No Discharge Plan Discharge Clinical Impression: Chronic abdominal pain, Stress, Insomnia Patient Disposition: Home Condition: Stable Instructions: Stress (ED), Abdominal Pain (ED), Insomnia (ED) Additional Instructions: Return if symptoms are worsening , call your Dr. Nuno for appointment, take Tylenol as as needed for aches and pain, continue home medications. Patient Language: Nigerian Prescriptions: New dicyclomine 20 mg tablet 20 mg PO QID Qty: 30 0RF hydroxyzine HCl 50 mg tablet 50 mg PO QID PRN (Reason: anxiety) Qty: 30 0RF No Action aripiprazole [Abilify] 5 mg tablet 5 mg PO DAILY lorazepam [Ativan] 0.5 mg tablet 0.5 mg PO Q6H PRN (Reason: anxiety) bupropion HCl [Wellbutrin SR] 150 mg tablet sustained-release 12 hr 150 mg PO QAM Qty: 30 0RF buprenorphine-naloxone 8-2 mg tablet, sublingual 1 tablet sublingual DAILY Follow-up/Referrals: Estuardo Nunez MD [Physician, Gastroenterology] - 12/29/24 UNKNOWN,DOCTOR [Non-Staff]
--- OUTSIDE RECORDS SUMMARY | 2024-12-26 16:33 | XMS_ITS | Encounter Summary ---
Author Organization [facility] Address [facility] [place] [address] Care Team Providers Care Cathode Washer Name Role Phone Delisa, May [facility] Primary Care Provider Encounter Details Date Type Department Care Team (Latest Contact Info) Description 12/25/2024 Travel Social History Tobacco Use Types Packs/Day Years Used Date Smoking Tobacco: Every Day Cigarettes Smokeless Tobacco: Never Alcohol Use Standard Drinks/Week Comments Not Currently 0 (1 standard drink = 0.6 oz pur e alcohol) [facility] Utilities Answer Date Recorded In the past 12 months has [employer] electric, gas, oil, or water [employer] threatened to shut off services in your [...] CDT Gender Identity Female 12/25/2024 10:22 PM [employer]SEM[employer]ER Sexual Orientation Straight 12/25/2024 10 :22 PM [employer]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
--- OUTSIDE RECORDS SUMMARY | 2024-12-26 16:33 | XMS_ITS | Clinical Summary ---
Author Organization [facility] Address [address], [facility] [address] [place] [address] Phone Care Team Providers Care Ict Quality Assurance Engineer Name Role Phone DelisaMay N EDGE BONDER, DIVER ASSISTANT Primary Care Provider [phone] Allergies Active Allergy Reactions Criticality Noted Date [...] Nurse Triage [facility] [address] [place] [phone] Wendie Hercules, EDGE BONDER, DIVER ASSISTANT Appointment; Chest Pain 12/19/2024 10:31 AM CDT - 12/19/2024 1:03 PM CDT [facility] [address] [place] [address] Willis Lee, PAC Chest pain Discharge Disposition: Discharged to home or Selfcare 12/19/2024 Travel 12/05/2024 Results Follow-Up [facility] [address] [place] [address] Wendie Hercules, LUIS FELIPE, DIVER ASSISTANT US THYROID, VITAMIN D, 25 HYDROXY TOTAL, VITAMIN B12, Additional followed-up results: 5 12/02/2024 10:49 AM CDT - 12/02/2024 11:59 PM CDT Hospital [facility] Ultrasound [address] [place] [address] Wendie Hercules, EDGE BONDER, DIVER ASSISTANT Discharge Disposition: Discharged to home or Selfcare 12/02/2024 Travel 11/21/2024 2:30 PM CDT Office Visit [facility] [address] [place] [address] Wendie Hercules, EDGE BONDER, DIVER ASSISTANT Depression with anxiety (Primary Dx); At risk for sexually transmitted disease due to unprotected sex Discharge Disposition: Discharged to home or Selfcare 11/21/2024 Travel 11/17/2024 9:39 AM CDT - 11/17/2024 11:17 AM CDT Emergency [facility] Emergency [address] [place] [address] Hugh Palencia, DO Viral syndrome Discharge Disposition: Discharged to home or Selfcare 11/17/2024 Telephone [facility] [address] [place] [address] Oehl, Wendie Pizarro APRN, CNP 11/17/2024 Nurse Triage [facility] [address] [place] [address] Wendie Hercules APRN, CNP Breathing Problem 11/16/2024 2:15 PM CDT Office Visit [facility] [address] [place] [address] Óscar Doss APRN, ELVIA Chest discomfort (Primary Dx) Discharge Disposition: Discharged to home or Selfcare 11/16/2024 Documentation Only [facility] Mammography [address] [place] [address] Wendie Hercules APRN, CNP 11/15/2024 10:03 PM CDT - 11/16/2024 12:06 AM CDT Emergency [facility] Emergency [address] [place] [address] Billy Cgale MD Chest pain, unspecified type Discharge Disposition: Discharged to home or Selfcare 11/15/2024 Travel 11/11/2024 Telephone [facility] [address] [place] [address] Wendie Herculse APRN, ELVIA Need Order 10/21/2024 2:00 PM CDT Office Visit [facility] [address] [place] [address] Wendie Hercules APRN, ELVIA Encounter for preventative adult health care exam with abnormal findings (Primary Dx); History of methadone use; Anxiety and depression; Nodule of left lobe of thyroid gland; Vaginal pain; Encounter for screening mammogram for breast cancer Discharge Disposition: Discharged to home or Selfcare 10/21/2024 Travel 10/21/2024 Telephone [facility] Call [facility] [address] [place] [address] Provider, None New Patient from Last 3 [...] st Contact Info) Description 01/03/2025 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 [address] [place] [address] Health Maintenance Due Date Last Done Comments [...] of4 resultswithin the time period is included. [facility] TROPONIN I, HIGH SENSITIVITY- OLIVA 2.9 <=14.0 ng/L 12/19/2024 1:10 PM CDT [facility] Comment: High-sensitivity troponin I results are reported in ng/L making the result appear to be 1,000 times higher than the contemporary troponin I value which is reported in ng/ml. Results from [facility]. Blood Venipuncture / Unknown 12/19/2024 12:33 PM CDT 12/19/2024 12:44 PM CDT us Willis Lee PAC CHEMISTRY ORDERABLES Final Result [facility] [address] [place] [address] * NT-proBNP (12/19/2024 10:44 AM CDT) [facility] NT PROBNP 177.3 <450.0 pg/mL 12/19/2024 11:17 AM CDT [facility] Comment: AGE pg/mL INTERPRETATION All <300 [...] Willis Lee PAC CHEMISTRY ORDERABLES Final Result [facility] [address] [place] [address] * (ABNORMAL) CBC with Auto Differential (12/19/2024 10:44 AM CDT) Only the most recent of4 resultswithin the time period is included. WBC 5.71 4.00 - 12.00 10(3)/mcL 12/19/2024 10:52 AM CDT [facility] RBC 4.01 3.80 - 5.30 10(6)/mcL 12/19/2024 10:52 AM CDT [facility] HEMOGLOBIN (HGB) 12.2 12.0 - 15.8 g/dL 12/19/2024 10:52 AM CDT [facility] HEMATOCRIT (HCT) 37.7 36.0 - 47.0 % 12/19/2024 10:52 AM CDT [facility] MCV 94.0 82.0 - 96.0 fL 12/19/2024 10:52 AM CDT [facility] MCH 30.4 26.0 - 34.0 pg 12/19/2024 10:52 AM CDT [facility] MCHC 32.4 31.0 - 36.0 g/dL 12/19/2024 10:52 AM CDT [facility] PLATELET COUNT 396 140 - 440 10(3)/mcL 12/19/2024 10:52 AM CDT [facility] RDW 12.7 11.8 - 15.5 % 12/19/2024 10:52 AM CDT [facility] MPV 9.5(L) 9.7 - 12.4 fL 12/19/2024 10:52 AM CDT [facility] NEUTROPHILS 70.2 47.0 - 73.0 % 12/19/2024 10:52 AM CDT [facility] LYMPHOCYTES 20.1 18.0 - 42.0 % 12/19/2024 10:52 AM CDT [facility] MONOCYTES 8.1 4.0 - 12.0 % 12/19/2024 10:52 AM CDT [facility] EOSINOPHILS 0.7 0.0 - 5.0 % 12/19/2024 10:52 AM CDT [facility] BASOPHILS 0.7 0.0 - 1.0 % 12/19/2024 10:52 AM CDT [facility] IMMATURE GRANULOCYTE 0.2 0.0 - 0.4 % 12/19/2024 10:52 AM CDT [facility] ABSOLUTE NEUTROPHILS 4.01 1.60 - 7.70 10(3)/[facility] 12/19/2024 10:52 AM CDT [facility] ABSOLUTE LYMPHOCYTES 1.15(L) 1.30 - 3.20 10(3)/[facility] 12/19/2024 10:52 AM CDT [facility] ABSOLUTE MONOCYTES 0.46 0.20 - 1.00 10(3)/[facility] 12/19/2024 10:52 AM CDT [facility] ABSOLUTE EOSINOPHIL 0.04 0.00 - 0.40 10(3)/[facility] 12/19/2024 10:52 AM CDT [facility] ABSOLUTE BASOPHILS 0.04 0.00 - 0.10 10(3)/[facility] 12/19/2024 10:52 AM CDT [facility] ABSOLUTE IMMATURE GRANULOCYTE 0.01 0.00 - 0.03 10 (3) mcL. 12/19/2024 10:52 AM CDT [facility] NRBC PER 100 WBC 0 12/20/19 10:52 AM CDT [facility] Blood Venipuncture / Unknown 12/19/2024 10:44 AM CDT 12/19/2024 10:50 AM CDT Willis Lee PAC HEMATOLOGY ORDERABLE S Final Result [facility] [address] [place] [address] * Magnesium (12/19/2024 10:44 AM CDT) Only the most recent of2 resultswithin the time period is included. MAGNESIUM 2.1 1.6 - 2.6 mg/dL 12/19/2024 11:13 AM CDT [facility] Blood Venipuncture / Unknown 12/19/2024 10:44 AM CDT 12/19/2024 10:50 AM CDT Willis Lee PAC CHEMISTRY ORDERABLES Final Result [facility] [address] [place] [address] * Ethyl Alcohol(Ethanol) [id number] (12/19/2024 10:44 AM CDT) ETHANOL <10 <10 mg/dL 12/19/2024 11:13 AM CDT [facility] Blood Venipuncture / Unknown 12/19/2024 10:44 AM CDT 12/19/2024 10:50 AM CDT Narrative [facility] - 12/19/2024 11:13 AM CDT FOR MEDICAL USE ONLY Willis Lee PAC CHEMISTRY ORDERABLES Final Result [facility] [address] [place] [address] * CMP (12/19/2024 10:44 AM CDT) Only the most recent of4 resultswithin the time period is included. SODIUM 140 136 - 145 mmol/L 12/19/2024 11:13 AM CDT [facility] POTASSIUM 4.0 3.5 - 5.1 mmol/L 12/19/2024 11:13 AM CDT [facility] CHLORIDE 104 98 - 107 mmol/L 12/19/2024 11:13 AM CDT [facility] CO2, VENOUS 26 22 - 30 mmol/L 12/19/2024 11:13 AM CDT [facility] ANION GAP 14.0 <18.0 mmol/L 12/19/2024 11:13 AM CDT [facility] GLUCOSE 88 70 - 99 mg/dL 12/19/2024 11:13 AM CDT [facility] BUN 9 5 - 18 mg/dL 12/19/2024 11:13 AM CDT [facility] CREATININE, BLOOD 0.74 0.60 - 1.00 mg/dL 12/19/2024 11:13 AM CDT [facility] BUN/CREATININE RATIO 12 12 - 20 ratio 12/19/2024 11:13 AM CDT [facility] TOTAL PROTEIN 7.4 6.0 - 8.0 g/dL 12/19/2024 11:13 AM CDT [facility] ALBUMIN 4.4 3.5 - 5.0 g/dL 12/19/2024 11:13 AM CDT [facility] A/G RATIO 1.5 1.0 - 2.2 12/19/2024 11:13 AM CDT [facility] CALCIUM 9.4 8.7 - 10.5 mg/dL 12/19/2024 11:13 AM CDT [facility] T BILI 0.5 0.2 - 1.2 mg/dL 12/19/2024 11:13 AM CDT [facility] SGOT (AST) 24 <43 U/L 12/19/2024 11:13 AM CDT [facility] SGPT (ALT) 17 <56 U/L 12/19/2024 11:13 AM CDT [facility] ALKALINE PHOSPHATASE 74 40 - 150 U/L 12/19/2024 11:13 AM CDT [facility] GFR, ESTIMATED >60 >=60 12/19/2024 11:13 AM CDT [facility] Comment: Creatinine Clearance is the preferred criteria for selecting drug dose adjustments in renally impaired patients. The GFR is provided as additional pertinent clinical information. GFR is reported in mL/min/1.73 sq m. Calculation based on the 2020 Chronic Kidney Disease Epidemiology Collaboration (CKD-EPI) equation refit without adjustment for race. GFR, EST. >60 >=60 11:13 AM CDT [facility] Comment: Creatinine Clearance is the preferred criteria for selecting drug dose adjustments in renally impaired patients. The GFR is provided as additional pertinent clinical information. GFR is reported in mL/min/1.73 sq m. Calculation based on the 2009 Chronic Kidney Disease Epidemiology Collaboration (CKD-EPI). GFR, EST. NONAFRICAN >60 >=60 12/19/2024 11:13 AM CDT [facility] Comment: Creatinine Clearance is the [...] Willis Lee PAC CHEMISTRY ORDERABLES Final Result [facility] [address] [place] [address] * EKG 12 LEAD (12/19/2024 10:36 AM CDT) Only the most recent of3 resultswithin the time period is included. Ventricular Rate 70 BPM EXTERNAL EKG Atrial Rate 70 BPM EXTERNAL EKG P-R Interval 118 ms EXTERNAL EKG QRS Duration 90 ms EXTERNAL EKG Q-T Duration 384 ms EXTERNAL EKG QTC CALCULATION 414 ms EXTERNAL EKG P Dele[place] 63 degrees EXTERNAL EKG R [place] 60 degrees EXTERNAL EKG T Dele[place] 52 degrees EXTERNAL EKG 12/19/2024 10:3 6 AM CDT Impressions EXTERNAL EKG - 12/19/2024 4:09 PM CDT Normal sinus rhythm Normal ECG When compared with ECG of 17-NOV-2024 09:47, No significant change was found Confirmed by Jn Nguyen ([id number]) on 12/19/2024 4:09:26 PM Narrative Procedure Note Jn Nguyen MD PhD - 12/19/2024 IMPRESSION: Normal sinus rhythm Normal ECG When compared with ECG of 17-NOV-2024 09:47, No significant change was found Confirmed by Jn Nguyen ([id number]) on 12/19/2024 4:09:26 PM us Billy Cagle MD IMG ECG ORDERABLES Final Result Performing Organization Address City/[facility] Co de Phone Number EXTERNAL EKG [...] PHYSICIAN: Mickey Mccarty D.O. - [facility] US THYROID, 12/02/2024 11:09 [...] (2) with internal vascularity. Echogenicity: Hyperechoic (1). Hwcyit-oyps-Rffs: no (0). Margins: Smooth (0). Echogenic foci: None (0). ACR TI-RADS Classification: TR 3 (3 points) Procedure Note Mickey Mccarty, DO - 12/03/2024 DICTATING PHYSICIAN: Mickey Mccarty D.O. - [facility] US THYROID, 12/02/2024 11:09 AM [...] solid (2) with internalvascularity. Echogenicity: Hyperechoic (1). Ujkbsb-ovbm-Uasr: no (0). Margins: Smooth (0). Echogenic foci: [...] 2017 [employer]. May N Delisa BRISCOE CNP [facility] US ORDERABLES Final R esult * VITAMIN D, 25 HYDROXY TOTAL (12/02/2024 10:47 AM CDT) VITAMIN D, 25 HYDROX 27.9 ng/mL 12/02/2024 12:19 PM CDT [facility] Blood Venipuncture / Unknown 12/02/2024 10:47 AM CDT 12/02/2024 11:12 AM CDT Narrative [facility] - 12/02/2024 12:19 PM CDT Published reference ranges for Vitamin D vary depending on time and place and method of testing, and on patient's age, sex, ethnicity and levels of other measured analytes such as parathormone, calcium and phosphorus. The result should be evaluated in conjunction with clinical findings and suspicions. [employer] of [employer] and Endocrine Clinical Practice Guidelines: Status Vitamin D levels (ng/mL) Deficient <=20 At risk of inadequacy 21-29 Sufficient 30-100 Centers of Disease Control and Prevention Guidelines: Status Vitamin D levels (ng/mL) Deficient <13 At risk of inadequacy 13-19 Sufficient 20-50 Possibly harmful >50 References: [employer] Medicine, 2010 Dietary reference intakes for calcium and vitamin D. [place]: The National Academies Press. Betsy M, Ariadne N, Glen ZAMUDIO, et al., Evaluation, treatment, and prevention of Vitamin D deficiency: an Endocrinology Clinical Practice Guideline. JCEM 2011 96: 7 9039-5529. Kenan A, Desmond C, Tyra D, et al., Vitamin D Status: [place], 0356-8989, NCHS data brief, no. 59, MD [place]: National Center for Health Statistics. 2010. May N Delisa BRISCOE CNP CHEMISTRY ORDERABLES Adelaide l Result [facility] [address] [place] [address] * THYROID SCREEN WITH REFLEX (12/02/2024 10:47 AM CDT) TSH 1.382 0.300 - 5.000 mIU/L 12/02/2024 12:07 PM CDT [facility] Blood Venipuncture / Unknown 12/02/2024 10:47 AM CDT 12/02/2024 11:12 AM CDT us May N Delisa BRISCOE, DIVER ASSISTANT CHEMISTRY ORDERABLES Adelaide l Result [facility] [address] [place] [address] * VITAMIN B12 (12/02/2024 10:47 AM CDT) VITAMIN B12 418 213 - 816 pg/mL 12/02/2024 12:19 PM CDT [facility] Blood Venipuncture / Unknown 12/02/2024 10:47 AM CDT 12/02/2024 11:12 AM CDT May N Delisa BRISCOE, DIVER ASSISTANT CHEMISTRY ORDERABLES Adelaide l Result Performing Organization Address City/[facility]/ZIP Co de Phone Number [facility] [address] [place] [address] * THYROXINE (T4) FREE (12/02/2024 10:47 AM CDT) T4 FREE 0.8 0.7 - 1.9 ng/dL 12/02/2024 12:08 PM CDT [facility] Blood Venipuncture / Unknown 12/02/2024 10:47 AM CDT 12/02/2024 11:12 AM CDT us May N Delisa BRISCOE, DIVER ASSISTANT CHEMISTRY ORDERABLES Adelaide l Result [facility] [address] [place] [address] * LIPID PANEL (12/02/2024 10:47 AM CDT) CHOLESTEROL 175 <200 mg/dL 12/02/2024 11:54 AM CDT [facility] TRIGLYCERIDES 127 <150 mg/dL 12/02/2024 11:54 AM CDT [facility] HDL CHOLESTEROL 55 >40 mg/dL 11:54 AM CDT [facility] LDL 95 <130 mg/dL 12/02/2024 11:54 AM CDT [facility] VLDL 25 10 - 50 mg/dL 12/02/2024 11:54 AM T [facility] CHOL/HDL RATIO 3.2 0.0 - 4.4 12/02/2024 11:54 AM CDT [facility] NON-HDL CHOLESTEROL 120 <130 mg/dL 12/02/2024 11:54 AM [facility] IS THE PATIENT REQUIRED TO BE FASTING? Yes 12/02/2024 11:54 AM [facility] HAS THE PATIENT BEEN FASTING? Yes 12/02/2024 11:54 AM [facility] Blood Venipuncture / Unknown 12/02/2024 10:47 AM CDT 12/02/2024 11:12 AM CDT Narrative [facility] - 12/02/2024 11:54 AM T [...] for LDL cholesterol. us May N Oehl EDGE BONDER, DIVER ASSISTANT CHEMISTRY ORDERABLES Adelaide l Result Performing Organization Address City/[facility]/ZIP Co de Phone Number [facility] [address] [place] [address] * RSV,SARS-COV-2,INFLUENZA A&B BY PCR (11/17/2024 9:55 AM CDT) FLU A Negative Negative, Error 11/17/2024 11:19 AM CDT [facility] FLU B Negative Negative 11/17/2024 11:19 AM CDT [facility] RESP SYNC VIRUS Negative Negative 11:19 AM CDT [facility] SARSCOV2 NOT DETECTED (Reference Range for this test is Not Detected) 11/17/2024 11:19 AM CDT [facility] Comment:This test was perfor med by a Reverse Cafeteria Monitor PCR Method. Nasal NASOPHARYNGEAL STRUCTURE / Unknown Non-Phlebotomy Collection / Unknown 11/17/2024 9:55 AM CDT 11/17/2024 10:36 AM CDT us Huhg Palencia DO MICROBIOLOGY - GENERAL ORDERABLES Final Result Performing Organization Address [facility] Co de Phone Number [facility] [address] [place] [address] * Gold Top Tube (11/17/2024 9:45 AM CDT) Blood No Phlebotomy Charged / Unknown 11/17/2024 9:45 AM CDT 11/17/2024 10:38 AM CDT us Hugh Palencia DO CHEMISTRY ORDERABLES Fi nal Result Performing Organization Address City/[facility]/ZIP Co de Phone Number [facility] [address] [place] [address] * Blue Top Tube (11/17/2024 9:45 AM CDT) Blood No Phlebotomy Charged / Unknown 11/17/2024 9:45 AM CDT 11/17/2024 10:38 AM CDT us Hugh Candido Palencia DO HEMATOLOGY ORDERABLES F inal Result [facility] [address] [place] [address] * XR CHEST SINGLE VIEW PORTABLE (11/15/2024 [...] Result * Human Chorionic Gonadotropin Scrn Serum [id number] (11/15/2024 10:26 PM CDT) PREG-HCG Negative Negative 11/15/2024 11:28 PM CDT [facility] Blood Venipuncture / Unknown 11/15/2024 10:26 PM CDT 11/15/2024 11:06 PM CDT Billy Cagle MD CHEMISTRY ORDERABLES Adelaide l Result Performing Organization Address City/[facility]/ZIP Co de Phone Number [facility] [address] [place] [address] * Lipase (11/15/2024 10:26 PM CDT) LIPASE 19 8 - 78 U/L 11/15/2024 11:28 PM CDT [facility] Blood Venipuncture / Unknown 11/15/2024 10:26 PM CDT 11/15/2024 11:06 PM CDT Billy Cagle MD CHEMISTRY ORDERABLES Adelaide l Result Performing Organization Address City/[facility]/ZIP Co de Phone Number [facility] [address] [place] [address] from Last 3 Months Insurance MEDICAID [place] Care Teams Ict Quality Assurance Engineer Relationship Specialty Start Date End Date Delisa, May N, EDGE BONDER, DIVER ASSISTANT [address] [address] PCP - General Advanced Practice Nurse 10/21/24
--- OUTSIDE RECORDS SUMMARY | 2024-12-26 16:33 | XMS_ITS | Encounter Summary ---
Author Organization [facility] Address [facility] [place] [address] Care Team Providers Care Shear Tender Name Role Phone None, Provider Primary Care Provider Diana HerculesMay [facility] Primary Care Provider [phone] Encounter Details Date Type Department Care Team (Late st Contact Info) Description 07/31/2018 Abstract [facility] CONVERSION [address] [place] [address] , Generic Conversion, Social History Tobacco Use Types Packs/Day Years Used Date Smoking Tobacco: Never Assessed Comments Unknown Sex and Gender Information Value Date Recorded Sex Assigned at Female 10/17/2024 3:24 PM CDT Legal Sex Female 11:36 PM CDT Gender Identity Female 12/25/2024 10:22 PM ENGINEERING AND 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 DIRECTOR Sexual Orientation Straight 12/25/2024 10 :22 PM ENGINEERING AND OPERATIONS DIRECTOR documented as of this encounter Plan of Treatment Not on file documented as of this encounter Visit Diagnoses Not on filedocumented in this encounter Additional Health Concerns Infection Onset Date Last Indicated Resolved Time COVID-19 Rule Out 10/17/2024 10/17/2024 10/17/2024 5:06 PM CDT Respiratory Rule Out 10/18/2024 10/18/2024 025 1:50 PM CDT documented as of this encounter Care Teams Shear Tender Relationship Specialty Start Date End Date None, Provider, PCP - General UNKNOWN PHYSICIAN SPECIALTY 07/13/23 DelisaMay, MANAGER [employer] [address] [place] [address] PCP - General Nurse Practitioner Family 12/23/24 documented as of this encounter
--- OUTSIDE RECORDS SUMMARY | 2024-12-26 16:33 | XMS_ITS | Clinical Summary ---
Author Organization [facility] Address [address] [place] [address] Care Team Providers Care Conference Concierge Name Role Phone Mario Logan MD Primary Care Provider Source Comments [facility],non-owned Affiliates and Associated Physician Practices is amultiple site organization consisting of ambulatory clinics and hospital sitesin [place], [place], [place] and [place]. This disclosure is being madepursuant to the Care Everywhere program and may not contain all information available regarding this patient. Last updated 17.[facility] Allergies Active Allergy Reactions Criticality Noted Date [...] naloxone HCl (NARCAN) 4 MG/0.1ML nasal spray [place] 1 spray into the nose as needed [...] migh t be different from the original. [id number] Problem Noted Date Diagnosed Date Non-reactive NST [...] 02/28/2014 Overview (05/05/2019): Confirmed dose-270 mg from [facility]. Scanned Into media. 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 Gender Identity Not on file Sexual Orientation [...] P24 AG PANEL Routine 03/10/2019 1:24 PM SKATING RINK ICE MAKER Supervision of high risk in second trimester HEPATITIS C ANTIBODY Routine 11/11/2018 12:07 PM CDT Supervision of high risk , antepartum from Last 3 Months or Most Recently Relevant to Health Maintenance Results * HIV-1 HIV-2 ANTIBODY + HIV P24 AG PANEL (03/10/2019 1:24 PM SKATING RINK ICE MAKER) Pathologist [facility] HIV1/2 Ab + P24 Ag Non Reactive Non Reactive 03/10/2019 2:57 PM SKATING RINK ICE MAKER [facility] Blood BLOOD SPECIMEN / Unknown Venipuncture / Unknown 03/10/2019 1:24 PM SKATING RINK ICE MAKER 03/10/2019 1:49 PM SKATING RINK ICE MAKER Narrative [facility] - 03/10/2019 2:57 PM SKATING RINK ICE MAKER No Laboratory evidence of HIV infection. us Ivana Thomas METAL BONDER-OFFICE SERVICES ASSISTANT LAB - CHEMISTRY ORDERAB LES Final Result [facility] [address] [place] [address] * HEPATITIS C ANTIBODY (11/11/2018 12:07 PM CDT) HCV Antibody Screen Non Reactive Non Reactive 11/11/2018 1:55 PM CDT [facility] HCV S/C Ratio 0.19 0.00 - 0.79 11/11/2018 1:55 PM CDT [facility] Comment: Oelcjg-sq-etxxfs ratio (S/CO) <0.80: Non Reactive Blood BLOOD SPECIMEN / Unknown Venipuncture / Unknown 11/11/2018 12:07 PM CDT 11/11/2018 12:56 PM CDT Narrative [facility] - 11/11/2018 1:55 PM CDT Non Reactive - Antibodies to Hepatitis C virus (HCV) were not detected, result does not exclude early acute HCV infection. Helen Zurita METAL BONDER-OFFICE SERVICES ASSISTANT LAB - CHEMISTRY ORDERA BLES Final Result Performing Organization Address City/State/[facility] Co de Phone Number [facility] [address] [place] [address] from Last 3 Months or Most Recently Relevant to Health Maintenance Insurance [facility] Advance Directives * Full Code (Latest [...] 11:00 AM 03/17/2019 7:31 PM Care Teams Conference Concierge Relationship Specialty Start Date End Date Mario Logan MD [address] [place] [address] PCP - General 05/24/19
--- OUTSIDE RECORDS SUMMARY | 2024-12-26 16:33 | XMS_ITS | Clinical Summary ---
Author Organization [facility] Address [address] [place] [address] Care Team Providers Care Weed Thinner Name Role Phone Christofer Stewart MD Primary [...] 1.7 cm about 1.5 years ago in [facility] - obtain US of thyroid, labs [...] CDT - 12/17/2024 8:46 PM CDT Emergency [facility] Emergency Department [facility] [place] [address] Discharge Disposition: Left without being seen 10/21/2024 Telephone [facility] [place] [address] [facility] [address] [place] [address] Christofer Stewart MD 10/17/2024 1:35 AM CDT - 10/17/2024 2:55 AM CDT Emergency [facility] Emergency Department [address] [place] [address] Jamarcus Irvin MD Kanumuri, Raghu, MD Chest [...] on file Legal Sex Female 11:53 AM [employer] Gender Identity Not on file Sexual Orientation [...] 12/17/2024 8:29 PM CDT MEDICAL RECORDS NUMBER: [id number] PROCEDURE: XR CHEST PA LATERAL 2 VIEWS DATE: 12/17/2024 8:20 PM HISTORY: 44 years old Female. chest pain Views: 2 COMPARISON: 10/17/2024 Procedure Note Rick Grijalva MD - 12/17/2024 MEDICAL RECORDS NUMBER: [id number] PROCEDURE: XR CHEST PA LATERAL 2 VIEWS [...] Data last revised 2020. Testing performed by: [address] [id number] Blood 12/17/2024 8:10 PM CDT 12/17/2024 8:14 PM CDT Hannah Muro Jr., MD LAB BLOOD ORDERABLES Fi nal Result Performing Organization Address City/[facility]/ZIP Co de Phone Number RAUL [address] [place] [address] * eGFR (12/17/2024 8:10 PM CDT) eGFR [...] was last reviewed 2020. Testing performed by: [facility], [address] [place] [address]., [address] Blood 12/17/2024 8:10 PM CDT 12/17/2024 8:14 PM CDT us Hannah Muro Jr., MD LAB BLOOD ORDERABLES Fi nal Result Performing Organization Address City/[facility]/ZIP Co de Phone Number RAUL [address] [place] [address] * Differential, auto (12/17/2024 8:10 PM CDT) [facility] Neutrophil abs 4.44 1.50 - 6.50 K/cumm Comment:Testing performed by : [address] [address] Imm gran abs 0.01 0.00 - 0.10 K/cumm [facility] Comment:Testing performed by : [address] [address] Lymphocyte abs 2.64 0.80 - 3.30 K/cumm [facility] Comment:Testing performed by : [address] [address] Monocyte abs 0.68 0.20 - 0.80 K/cumm [facility] Comment:Testing performed by : [address] [address] Eosinophil abs 0.10 0.00 - 0.50 K/cumm [facility] Comment:Testing performed by : [address] [address] Basophil abs 0.04 0.00 - 0.10 K/cumm [facility] Comment:Testing performed by : [address] [address] Neutrophil pct 56.1 % [facility] Comment: Interpretive Data Percent cell count reference ranges are not reported, since discordance with absolute values may lead to misinterpretation of CBC data. Current Interpretive Data was last revised on 2017. Testing performed by: [address] [address] Imm gran pct 0.1 % [facility] Comment: Interpretive Data Percent cell count reference ranges are not reported, since discordance with absolute values may lead to misinterpretation of CBC data. Current Interpretive Data was last revised on 2017. Testing performed by: [address] [address] Lymphocyte pct 33.4 % [facility] Comment: Interpretive Data Percent cell count reference ranges are not reported, since discordance with absolute values may lead to misinterpretation of CBC data. Current Interpretive Data was last revised on 2017. Testing performed by: [address] [address] Monocyte pct 8.6 % [facility] Comment: Interpretive Data Percent cell count reference ranges are not reported, since discordance with absolute values may lead to misinterpretation of CBC data. Current Interpretive Data was last revised on 2017. Testing performed by: [address] [address] Eosinophil pct 1.3 % RAUL Comment: Interpretive Data Percent cell count reference ranges are not reported, since discordance with absolute values may lead to misinterpretation of CBC data. Current Interpretive Data was last revised on 2017. Testing performed by: [address] [address] Basophil pct 0.5 % RAUL Comment: Interpretive Data Percent cell count reference ranges are not reported, since discordance with absolute values may lead to misinterpretation of CBC data. Current Interpretive Data was last revised on 2017. Testing performed by: [address] [address] Blood 12/17/2024 8:10 PM CDT 12/17/2024 8:14 PM CDT us Hannah Muro Jr., MD LAB BLOOD ORDERABLES nal Result [facility] [address] [facility] [place] [address] * (ABNORMAL) CBC with auto differential (12/17/2024 8:10 PM CDT) WBC 7.91 3.80 - 9.90 K/cumm Comment:Testing performed by : [address] [address] Hgb 11.2(L) 11.9 - 15.5 g/dL [facility] Comment:Testing performed by : [address] [address] Hct 32.7(L) 35.6 - 45.5 % [facility] Comment:Testing performed by : [address] [address] Plt 367 150 - 400 K/cumm [facility] Comment:Testing performed by : [address] [address] MPV 9.4 9.1 - 12.3 fL RAUL Comment:Testing performed by : [address] [address] RBC 3.68(L) 3.90 - 5.20 M/cumm [facility] Comment:Testing performed by : [address] [address] MCV 88.9 81.3 - 96.4 fL RAUL Comment:Testing performed by : [address] [address] MCH 30.4 27.1 - 33.3 pg RAUL Comment:Testing performed by : [address] [address] MCHC 34.3 32.3 - 35.7 g/dL RAUL Comment:Testing performed by : [address] [address] RDW CV 12.9 11.1 - 14.9 % RAUL Comment:Testing performed by : [address] [address] RDW SD 42.3 35.7 - 48.1 fL RAUL Comment:Testing performed by : [address] [address] NRBC abs 0.00 0.00 - 0.01 K/cumm RAUL Comment:Testing performed by : [address] [address] Blood Venous blood specimen / Unknown 12/17/2024 8:10 PM CDT 12/17/2024 8:14 PM CDT us Hannah Muro Jr., MD LAB BLOOD ORDERABLES Fi nal Result RAUL [address] [facility] [place] [address] * (ABNORMAL) Comprehensive metabolic panel (12/17/2024 8:10 PM CDT) Sodium 139 135 - 145 mmol/L Comment:Testing performed by : [address], [place]., [address] Potassium, pl 4.0 3.3 - 4.9 mmol/L RAUL Comment:Testing performed by : [address], [place]., [address] Chloride 104 97 - 110 mmol/L RAUL Comment:Testing performed by : [address], [place]., [address] CO2 26 22 - 32 mmol/L RAUL Comment:Testing performed by : [address], [place]., [address] Anion gap 9 2 - 15 mmol/L RAUL Comment:Testing performed by : [address], [place]., [address] BUN 17 6 - 25 mg/dL RAUL Comment:Testing performed by : [address], [place]., [address] Creatinine 0.80 0.60 - 1.10 mg/dL RAUL Comment:Testing performed by : [address], [place]., [address] Glucose 103 70 - 199 mg/dL [facility] Comment: Interpretive Data Fasting glucose >/= 126 [...] was last revised 2022. Testing performed by: [address] [address] Calcium 9.1 8.5 - 10.3 mg/dL RAUL Comment:Testing performed by : [address], [place]., [address] Bilirubin, total 0.2 0.1 - 1.2 mg/dL RAUL Comment:Testing performed by : [address] [address] Protein, pl 6.3(L) 6.5 - 8.5 g/dL RAUL Comment:Testing performed by : [address] [address] Albumin 3.9 3.5 - 5.0 g/dL RAUL COLON Comment:Testing performed by : [address], [address] Alk phos 69 40 - 130 Units/L RAUL Comment:Testing performed by : [address] [address] ALT 10 7 - 45 Units/L RAUL Comment:Testing performed by : [address], [address] AST 16 10 - 45 Units/L RAUL Comment:Testing performed by : [address], [address] Blood 12/17/2024 8:10 PM CDT 12/17/2024 8:14 PM CDT us Hannah Muro Jr., MD LAB BLOOD ORDERABLES Fi nal Result RAUL [address] [facility] Department of Laboratories [place], [place] [id number] * ECG 12 lead (12/17/2024 8:02 PM CDT) Ventricular Rate EKG/Min 67 BPM [facility] Atrial Rate 67 BPM [facility] WI-Interval (MSEC) 120 ms [facility] QRS-Interval (MSEC) 94 ms [facility] QT-Interval (MSEC) 392 ms [facility] QTc 414 ms [facility] P Lavon 65 degrees [facility] R Lavon 60 degrees [facility] T Lavon 58 degrees [facility] Diagnosis Normal sinus rhythm Possible Left atrial enlargement Borderline ECG No previous ECGs available Confirmed by MD KARI, HANNAH ([id number]) on 12/18/2024 10:03:54 AM [facility] 12/17/2024 8:02 PM CDT 12/18/2024 10:03 AM CDT us Hannah Muro Jr., MD ECG ORDERABLES Final R esult [facility] * XR Chest Pa Lateral 2 Vw (10/17/2024 2:20 AM CDT) Anatomical Region Laterality Modality Body, Chest N/A Computed Radiogr aphy 10/17/2024 2:35 AM CDT Narrative 10/17/2024 2:36 AM CDT EXAM DESCRIPTION: XR CHEST PA LATERAL 2 VIEWS REASON FOR STUDY: cough Pt has flight of ideas and multiple medical complaints arrived via [facility] discharged from [facility] this AM. Smoker TECHNIQUE: Frontal and lateral [...] Ml Foster M.D. SN: SN Report ID: [id number] Reading Location: [id number] Procedure Note Ml Foster MD - 10/17/2024 EXAM DESCRIPTION: XR CHEST PA LATERAL 2 VIEWS REASON FOR STUDY: cough Pt has flight of [place] [facility]. Smoker TECHNIQUE: Frontal and lateral [...] Ml Foster M.D. SN: SN Report ID: [id number] Reading Location: [id number] us Tre Roche MD IMG XR PROCEDURES Final Result * ECG 12 lead (10/17/2024 12:07 AM CDT) 10/17/2024 12:0 7 AM CDT Narrative [facility] - 10/17/2024 6:47 AM CDT Vent Rate: 84 bpm RR Interval: 709 msec WI Interval: 111 msec QRS Duration: 96 msec QT Interval: 362 msec QTC Interval: 403 msec P-R-T Lavon: 80 - 73 - 64 degrees IMPRESSION: Baseline artifact, probable SINUS RHYTHM WITH SHORT WI INTERVAL LEFT ATRIAL ENLARGEMENT [-0.15mV P WAVE IN V1/V2] POSSIBLE LEFT VENTRICULAR HYPERTROPHY [VOLTAGE CRITERIA PLUS LAE OR QRS WIDENING] ABNORMAL ECG NO CHANGE FROM PREVIOUS TRACING NOTED Electronically Signed By: Francois Casarez MD us Jamarcus Irvin MD ECG ORDERABLES Final Result [facility] from Last 3 Months Insurance [facility] Advance Directives For more information, please contact: [phone] * Full Code (Latest Code Status on File) Date Activated Date Inactivated Comments 10/20/2023 12:17 PM 10/20/2023 8:58 PM Care Teams Weed Thinner Relationship Specialty Start Date End Date Christofer Stewart MD PCP - General Family Medicine 06/23/23
--- OUTSIDE RECORDS SUMMARY | 2024-12-26 16:34 | XMS_ITS | Clinical Summary ---
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 Operator Name Role Phone Delisa, May [facility] Primary Care Provider [phone] Allergies Active Allergy Reactions Criticality Noted Date [...] Department Care Team Description 12/25/2024 10:14 PM EMS MANAGER - 12/26/2024 11:40 AM [facility] Emergency [facility] Emergency Room [address] [place] [address] Rl Virgen MD Bel, Lionel Pineda MD Chest Pain Discharge Disposition: Left Against Medical Advice 12/25/2024 7:26 PM EMS MANAGER - 12/25/2024 9:07 PM [facility] Emergency [facility] Emergency Room [address] [place] [address] Rl Virgen MD Chest Pain Discharge Disposition: Home or Self Care (Routine Discharge) 12/25/2024 Travel 12/24/2024 3:59 PM CDT - 12/24/2024 8:20 PM CDT Emergency [facility] Emergency Room [address] [place] [address] Salo Dillon MD Palmer, Aunaly E, MD Chest Pain Discharge Disposition: Home or Self Care (Routine Discharge) 12/24/2024 Travel 12/23/2024 2:42 PM CDT - 12/23/2024 4:51 PM CDT Emergency [facility] Emergency Room [address] [place] [address] Salo Dillon MD Chest Pain Discharge Disposition: Home or Self Care (Routine Discharge) 12/23/2024 Travel 12/17/2024 11:53 PM CDT - 12/18/2024 2:43 AM CDT Emergency [facility] Emergency [address] [place] [address] Billy Mayfield DO Chest Pain Discharge Disposition: Home or Self Care (Routine Discharge) 12/17/2024 Travel 12/15/2024 2:10 AM CDT - 12/15/2024 3:41 AM CDT [facility] [address] [place] [address] [address] [place] [address] Jens Mendoza MD Abdominal Pain Discharge Disposition: Home or Self Care (Routine Discharge) 12/15/2024 Travel 12/14/2024 7:01 PM CDT - 12/14/2024 11:09 PM CDT [facility] [address] [place] [address] [place] [address] Jens Mendoza MD Chest Pain; Shortness Of Breath Discharge Disposition: Home or Self Care (Routine Discharge) 12/14/2024 Travel 10/18/2024 9:46 AM CDT - 10/18/2024 10:30 PM CDT Emergency [facility] [place] [address] Yovana Zamora MD Geldmacher, Kelly J, MD Medical Problem Discharge Disposition: [facility] 10/17/2024 2:59 PM CDT - 10/17/2024 8:00 PM CDT [facility] [address] [place] [address] [place] [address] Familia Carter MD Medical Problem Discharge Disposition: [...] drink = 0.6 oz pur e alcohol) [facility] Utilities Answer Date Recorded In the past 12 months has e [email or web address], gas, oil, or water [employer] threatened to shut off services in your [...] any time in the past 12 m [facility], were you homeless or living in a custodial (including now)? Yes 10/13/2023 Comments No Sex and Gender Information Value Date Recorded Sex Assigned at Female 10/17/2024 3:24 PM CDT Legal Sex Female 11:36 PM CDT Gender Identity Female 12/25/2024 10:22 PM EMS MANAGER Sexual Orientation Straight 12/25/2024 10 :22 PM EMS MANAGER Last Filed Vital Signs Vital Sign Reading Time Taken Comments Blood Pressure 91/55 12/26/2024 7:00 AM EMS MANAGER Pulse 57 12/26/2024 7:00 AM EMS MANAGER Temperature 36.5 C (97.7 F) 12/26/2024 7:00 AM EMS MANAGER Respiratory Rate 18 12/25/2024 10:18 PM EMS MANAGER Oxygen Saturation 97% 12/26/2024 7:00 AM EMS MANAGER Inhaled Oxygen Concentration - - Weight 49.9 kg (110 lb) 12/25/2024 10:18 PM EMS MANAGER Height 154.9 cm (5' 1) 12/25/2024 10:18 PM EMS MANAGER Body Mass Index 20.78 12/25/2024 10:18 PM EMS MANAGER Plan of Treatment Health Maintenance Due Date [...] Comments TEST URINE STAT 12/25/2024 11:24 PM EMS MANAGER DRUG SCREEN RAPID STAT 12/25/2024 11: 24 PM EMS MANAGER ECG 12-LEAD Routine 12/25/2024 7:28 PM EMS MANAGER CTA CHEST STAT 12/24/2024 5:42 PM CDT [...] (ABNORMAL) DRUG SCREEN RAPID (12/25/2024 11:24 PM EMS MANAGER) Only the most recent of3 resultswithin the time period is included. AMPHETAMINE (U) NONE DETECTED NONE DETECTED 12/25/2024 11:45 PM EMS MANAGER [facility] BARBITURATES SCREEN (U) NONE DETECTED NONE DETECTED 12/25/2024 11:45 PM [facility] BENZODIAZEPINES SCREEN (U) DETECTED(A) NONE DETECTED 12/25/2024 11:45 PM [facility] BUPRENORPHINE SCREEN (U) DETECTED(A) NONE DETECTED 12/25/2024 11:45 PM [facility] COCAINE METABOLITES (U) NONE DETECTED NONE DETECTED 12/25/2024 11:45 PM [facility] METHAMPHETAMINE (U) DETECTED(A) NONE DETECTED 12/25/2024 11:45 PM [facility] METHADONE (U) NONE DETECTED NONE DETECTED 12/25/2024 11:45 PM EMS MANAGER [facility] OPIATE SCREEN (U) NONE DETECTED NONE DETECTED 12/25/2024 11:45 PM EMS MANAGER [facility] OXYCODONE SCREEN (U) NONE DETECTED NONE DETECTED 12/25/2024 11:45 PM EMS MANAGER [facility] PHENCYCLIDINE PCP (U) NONE DETECTED NONE DETECTED 12/25/2024 11:45 PM [facility] CANNABINOIDS SCREEN (U) NONE DETECTED NONE DETECTED 12/25/2024 11:45 PM EMS MANAGER [facility] TRICYCLIC ANTIDEPRESSANT SCREEN (U) NONE DETECTED NONE DETECTED 12/25/2024 11:45 PM EMS MANAGER [facility] Comment: NOTE: RESULTS OF THIS [...] URINE SPECIMEN / Unknown 12/25/2024 11:24 PM EMS MANAGER us Rl Virgen MD URINE ORDERABLES Final Result Performing Organization Address [facility] Co de Phone Number [facility] [address] [place] [address], [place] [phone] * TEST URINE (12/25/2024 11:24 PM EMS MANAGER) Only the most recent of2 resultswithin the time period is included. URINE HCG TEST NEG NEGATIVE 12/25/2024 11:41 PM EMS MANAGER [facility] Comment: VERY DILUTE URINE SPECIMENS MAY NOT CONTAIN LABEL PRINTING MACHINIST LEVELS OF HCG. IF IS STILL SUSPECTED, A SERUM HCG TEST IS RECOMMENDED. URINE SPECIMEN FROM URETHRA / Unknown 12/25/2024 11:24 PM EMS MANAGER us Rl Virgen MD URINE ORDERABLES Final Result Performing Organization Address [facility] Co de Phone Number [facility] [address] [place] [address], [place] [phone] * ECG 12 lead (12/25/2024 7:28 PM EMS MANAGER) Only the most recent of7 resultswithin the time period is included. 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1980 Requested By: RL VIRGEN Order Number: [id number] Reading MD: Bubba Reyes Measurements Intervals [place] Rate: 70 P: 74 OK: 126 QRS: 69 QRSD: 97 T: 62 QT: 374 QTc: 404 Interpretive Statements SINUS RHYTHM Compared to ECG 12/24/2024 16:10:34 Sinus bradycardia no longer present MANAGER Procedure Note Bubba Reyes MD - 12/25/2024 [facility] Test Date: 2024-12-25 Pat Name: JJ SLATER Department: 85 Room: EXAM 505 Gender: Female 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1980 Requested By: RL VIRGEN Order Number: [id number] Reading : Bubba Reyes Measurements Intervals [place] Rate: 70 P: 74 OK: 126 QRS: 69 QRSD: 97 T: 62 QT: 374 QTc: 404 Interpretive Statements SINUS RHYTHM Compared to ECG 12/24/2024 16:10:34 Sinus bradycardia no longer present MANAGER us Rl Virgen MD ECG ORDERABLES Final Result [facility] * CTA CHEST (12/24/2024 5:42 PM CDT) Anatomical Region Laterality Modality Chest Computed Tomogra phy 12/24/2024 5:56 PM CDT Impressions 12/24/2024 6:02 PM CDT IMPRESSION: 1. Technically limited evaluation for pulmonary embolism. 2. Stable 9 mm lung nodule. Recommend continued surveillance as above. Referred By: Interpreted By: Everett Peterson MD, 12/24/2024 5:56 PM Narrative 12/24/2024 6:02 PM CDT [facility] [address] [place] [id number] Examination: CTA CHEST Clinical history: Chest pain [...] Procedure Note Everett Peterson MD - 12/24/2024 [facility] [address] [place] [id number] Examination: CTA CHEST Clinical history: Chest pain [...] 4:34 PM Narrative 12/24/2024 4:41 PM [address] [place] [address] Examination: XR CHEST PORTABLE Exam time: 12/24/2024 4:14 PM Clinical history: Chest pain. Comparison: 12/23/2024. Technique: AP portable upright radiograph of the chest. Findings: Normal heart size. Normal distribution of the pulmonary vasculature. No focal parenchymal lung consolidation, pleural effusion, or pneumothorax. No acute osseous findings. Surgical clips noted in the upper abdomen. Procedure Note Juan Alberto Meier MD - 12/24/[address] [place] [address] Examination: XR CHEST PORTABLE Exam time: 12/24/2024 [...] - 12.4 SEC 12/24/2024 4:46 PM CDT [facility] INR 1.1 12/24/2024 4:46 PM CDT [facility] Comment: Recommend INR ranges for Oral Anticoagulant Therapy: Mechanical Cardiac Values 2.5-3.5 All others indication 2.0-3.0 12/24/2024 4:10 PM CDT Salo Dillon MD LABORATORY Final Result [facility] [address] [place] [address], * (ABNORMAL) COMPREHENSIVE METABOLIC PANEL (12/24/2024 4:10 PM CDT) Only the most recent of6 resultswithin the time period is included. GLUCOSE 84 70 - 99 MG/DL 12/24/2024 4:35 PM CDT [facility] BUN 21(H) 7 - 18 MG/DL 12/24/2024 4:35 PM CDT [facility] CREATININE S/P/B 0.78 0.55 - 1.02 MG/DL 12/24/2024 4:35 PM CDT [facility] SODIUM S/P/B 139 136 - 145 MMOL/L 12/24/2024 4:35 PM CDT [facility] POTASSIUM S/P/B 4.0 3.5 - 5.1 MMOL/L 12/24/2024 4:35 PM CDT [facility] CHLORIDE S/P/B 103 100 - 108 MMOL/L 12/24/2024 4:35 PM CDT [facility] CO2 31.8 21 - 32 MMOL/L 12/24/2024 4:35 PM CDT [facility] CALCIUM S/P/B 8.5 8.5 - 10.1 MG/DL 12/24/2024 4:35 PM CDT [facility] BILIRUBIN TOTAL S/P/B 0.5 0.2 - 1.2 MG/DL 12/24/2024 4:35 PM CDT [facility] TOTAL PROTEIN S/P/B 6.4 6.4 - 8.2 G/DL 12/24/2024 4:35 PM CDT [facility] ALBUMIN S/P/B 3.4 3.4 - 5.0 G/DL 12/24/2024 4:35 PM CDT [facility] AST 11(L) 15 - 37 U/L 12/24/2024 4:35 PM T [facility] ALT 12(L) 14 - 55 U/L 12/24/2024 4:35 PM T [facility] ALKALINE PHOSPHATASE S/P/B 71 50 - 136 U/L 12/24/2024 4:35 PM T [facility] ANION GAP 4.2(L) 5 - 15 MMOL/L 12/24/2024 4:35 PM T [facility] BUN CREATININE RATIO 26.9(H) 6 - 26 12/24/2024 4:35 PM T [facility] A/G RATIO 1.1 1.0 - 2.0 RATIO 12/24/2024 4:35 PM [facility] GFR ESTIMATE >90 >90 ML/MIN/1.7 3 M2 12/24/2024 4:35 PM T [facility] Comment: NOTE: eGFR is not calculated for patients <18 years of age. This is an estimated GFR calculation using the new CKD EPI creatinine equation without race and so does not require a correction factor for race. This estimated GFR should not be used for calculating drug doses. 12/24/2024 4:10 PM CDT us Salo Dillon MD LABORATORY Final Result [facility] [address] [place] [address], * (ABNORMAL) CBC W/DIFF AUTOMATED (12/24/2024 4:10 PM CDT) Only the most recent of7 resultswithin the time period is included. WBC 5.15 4.4 - 11.0 x10'3/uL 12/24/2024 4:23 PM CDT [facility] RBC 3.80(L) 4.50 - 5.10 x10'6/uL 12/24/2024 4:23 PM CDT [facility] HGB 11.6(L) 12.3 - 15.3 G/DL 12/24/2024 4:23 PM CDT [facility] HCT 35.3(L) 35.9 - 44.6 % 12/24/2024 4:23 PM CDT [facility] MCV 92.9 80.0 - 96.0 FL 12/24/2024 4:23 PM CDT [facility] MCH 30.5 25.3 - 30.9 PG 12/24/2024 4:23 PM CDT [facility] MCHC 32.9 31.0 - 34.1 G/DL 12/24/2024 4:23 PM CDT [facility] RDW 13.2 12.4 - 15.1 % 12/24/2024 4:23 PM CDT [facility] PLT 337 151 - 353 x10'3/uL 12/24/2024 4:23 PM CDT [facility] MPV 9.6 9.6 - 12.0 FL 12/24/2024 4:23 PM CDT [facility] RBC MORPHOLOGY NORMAL 12/24/2024 4:23 PM CDT [facility] PLT MORPH. NORMAL 12/24/2024 4:23 PM CDT [facility] WBC MORPHOLOGY NORMAL 12/24/2024 4:23 PM CDT [facility] LYMPHOCYTES % 29.5 15.8 - 45.0 % 12/24/2024 4:23 PM CDT [facility] NEUTROPHILS % 59.4 42.1 - 71.9 % 12/24/2024 4:23 PM CDT [facility] MONOCYTES % 8.7 5.7 - 12.5 % 12/24/2024 4:23 PM CDT [facility] EOSINOPHILS 1.2 0.0 - 5.6 % 12/24/2024 4:23 PM CDT [facility] BASOPHILS 1.0 0.0 - 1.3 % 12/24/2024 4:23 PM CDT [facility] ABS. NEUTROPHILS 3.06 1.40 - 6.00 x10'3/uL 12/24/2024 4:23 PM CDT [facility] IMMATURE GRANS % 0.2 0.0 - 0.5 % 12/24/2024 4:23 PM CDT [facility] ABS. LYMPHOCYTES 1.52 0.80 - 4.70 x10'3/uL 12/24/2024 4:23 PM CDT [facility] 12/24/2024 4:10 PM CDT Salo Dillon MD LABORATORY Final Result [facility] [address] [place] [address], * TROPONIN, QUANT (12/24/2024 4:10 PM CDT) Only the most recent of4 resultswithin the time period is included. Pathologist [facility] TROPONIN I HIGH SENSITIVITY 6 0 - 50 ng/L 12/24/2024 4:38 PM CDT [facility] Comment: HIGH DOSES OF BIOTIN, TROPONIN-SPECIFIC AUTOANTIBODIES, AND ANTIBODY THERAPY CONTAINING HAMA MAY INTERFERE WITH THIS TEST RESULT. CORRELATION TO CLINICAL HISTORY AND PRESENTATION RECOMMENDED. 12/24/2024 4:10 PM CDT us Salo Dillon MD LABORATORY Final Result Performing Organization Address City/[facility]/ZIP Co de Phone Number [facility] [address] [place] [address], [place] [phone] * LIPASE (12/24/2024 4:10 PM CDT) Only the most recent of2 resultswithin the time period is included. LIPASE 63 16 - 77 UNITS/L 12/24/2024 4:35 PM CDT [facility] 12/24/2024 4:10 PM CDT us Salo Dillon MD LABORATORY Final Result Performing Organization Address [facility] de Phone Number [facility] [address] [place] [address], [place] [phone] * D-DIMER, QUANTITATIVE (12/18/2024 12:00 AM CDT) D-DIMER 271 0 - 500 ng{FEU}/mL 12/18/2024 1:02 AM CDT [facility] EXCLUSION STATEMENT 12/18/2024 1:02 AM CDT [facility] Comment: D-Dimer values less [...] DO LABORATORY Final Result Performing Organization Address [facility]/ZIP Co de Phone Number [facility] [address] [place] [address], [phone] * HCG QUANT SERUM - CHORIONIC GONADOTROPIN () (12/18/2024 12:00 AM CDT) HCG QUANTITATIVE <1 MIU/ML 12/19/19 1:07 AM CDT [facility] Comment: <5 IS NEGATIVE 5-25 IS BORDERLINE >25 IS POSITIVE ASSAY PERFORMED BY CHEMILUMINESCENCE METHODOLOGY USING SIEMENS [employer] [facility]. PATIENT RESULTS DETERMINED BY ASSAYS USING DIFFERENT MANUFACTURERS FOR METHODS MAY NOT BE COMPARABLE. 12/18/2024 Emily Fung NP LABORATORY Final Result Performing Organization Address [facility] Co de Phone Number [facility] [address] [place] [address], [place] [phone] * CT HEAD WO CON (10/18/2024 8:19 PM CDT) Anatomical Region Laterality Modality Head Computed Tomogra phy 10/18/2024 8:20 PM CDT Impressions 10/18/2024 8:22 PM CDT IMPRESSION: No acute intracranial abnormalities identified. Referred By: Interpreted By: Gaurav Damon DO, 10/18/2024 8:20 PM Narrative 10/18/2024 8:22 PM CDT [address] [address] EXAMINATION: CT head without contrast HISTORY: Confusion. [...] Procedure Note Gaurav Damon DO - 10/18/2024 [place] [id number] EXAMINATION: CT head without contrast HISTORY: Confusion. [...] URINE CLEAN CATCH 10/18/2024 4:30 PM CDT [facility] SPECIAL REQUESTS NO SPECIAL REQUEST 10/18/2024 4:30 PM CDT [facility] CULTURE RESULT POLYMICROBIAL GROWTH CONSISTENT WITH NORMAL GENITAL CAM. SUSCEPTIBILITIES NOT ROUTINELY PERFORMED. 10/19/2024 8:45 AM CDT [facility] URINE SPECIMEN OBTAINED BY CLEAN CATCH PROCEDURE / Unknown 10/18/2024 4:30 PM CDT 10/18/2024 8:10 PM CDT us Yovana Zamora MD MICROBIOLOGY - GENERAL ORDERA BLES Final Result [facility] [address] [place] [address], [place] [phone] * RESPIRATORY PCR PANEL 2 (10/18/2024 12:33 PM CDT) ADENOVIRUS PCR (RESP) NOT DETECTED NOT DETECTED 10/18/2024 1:50 PM CDT [facility] CORONAVIRUS 229E PCR (RESP) NOT DETECTED NOT DETECTED 10/18/2024 1:50 PM CDT [facility] CORONAVIRUS HKU1 PCR (RESP) NOT DETECTED NOT DETECTED 10/18/2024 1:50 PM CDT [facility] CORONAVIRUS NL63 PCR (RESP) NOT DETECTED NOT DETECTED 10/18/2024 1:50 PM CDT [facility] CORONAVIRUS OC43 PCR (RESP) NOT DETECTED NOT DETECTED 10/18/2024 1:50 PM CDT [facility] METAPNEUMOVIRUS PCR (RESP) NOT DETECTED NOT DETECTED 10/18/2024 1:50 PM CDT [facility] RHINOVIRUS/ENTEROV IRUS PCR (RESP) NOT DETECTED NOT DETECTED 10/18/2024 1:50 PM CDT [facility] INFLUENZA A PCR (RESP) NOT DETECTED NOT DETECTED 10/18/2024 1:50 PM CDT [facility] INFLUENZA B PCR (RESP) NOT DETECTED NOT DETECTED 10/18/2024 1:50 PM CDT [facility] PARAINFLUENZA 1 PCR (RESP) NOT DETECTED NOT DETECTED 10/18/2024 1:50 PM CDT [facility] PARAINFLUENZA 2 PCR (RESP) NOT DETECTED NOT DETECTED 10/18/2024 1:50 PM CDT [facility] PARAINFLUENZA 3 PCR (RESP) NOT DETECTED NOT DETECTED 10/18/2024 1:50 PM CDT [facility] PARAINFLUENZA 4 PCR (RESP) NOT DETECTED NOT DETECTED 10/18/2024 1:50 PM CDT [facility] RSV PCR (RESP) NOT DETECTED NOT DETECTED 10/18/2024 1:50 PM CDT [facility] B PARAPERTUSIS PCR (RESP) NOT DETECTED NOT DETECTED 10/18/2024 1:50 PM CDT [facility] BORDETELLA PERTUSSIS PCR (RESP) NOT DETECTED NOT DETECTED 10/18/2024 1:50 PM CDT [facility] CHLAMYDOPHILA PNEUMONIAE PCR (RESP) NOT DETECTED NOT DETECTED 10/18/2024 1:50 PM CDT [facility] MYCOPLASMA PNEUMONIAE PCR (RESP) NOT DETECTED NOT DETECTED 10/18/2024 1:50 PM CDT [facility] CORONAVIRUS SARS COV 2 PCR (RESP) NOT DETECTED NOT DETECTED 10/18/2024 1:50 PM CDT [facility] NASOPHARYNGEAL SWAB / Unknown 10/18/2024 12:33 PM CDT us Yovana Zamora MD MICROBIOLOGY - GENERAL ORDERA BLES Final Result [facility] [address] [place] [address], [place] [phone] * (ABNORMAL) URINALYSIS, AUTO, COMPLETE (10/18/2024 11:00 AM CDT) SPECIMEN TYPE URINE CLEAN CATCH 10/18/2024 11:01 AM CDT [facility] COLOR (U) DARK BROWN 10/18/2024 11:23 AM CDT [facility] TRANSPARENCY TURBID 10/18/2024 11:23 AM T [facility] SPECIFIC GRAVITY (U) 1.034(H) 1.001 - 1.030 10/18/2024 11:23 AM CDT [facility] U PH 5.5 5.0 - 9.0 10/18/2024 11:23 AM T [facility] LEUKOCYTES (U) 250(A) NEGATIVE 10/18/2024 11:23 AM T [facility] NITRITES NEGATIVE NEGATIVE 10/18/2024 11:23 AM T [facility] PROTEIN RANDOM (U) 100(H) <30 MG/DL 10/18/2024 11:23 AM T [facility] GLUCOSE (U) NORMAL NORMAL MG/DL 10/18/2024 11:23 AM T [facility] KETONES MG/DL (U) 60(A) NEGATIVE MG/DL 10/18/2024 11:23 AM T [facility] UROBILINOGEN NORMAL NORMAL MG/DL 10/18/2024 11:23 AM T [facility] BILIRUBIN (U) NEGATIVE NEGATIVE MG/DL 10/18/2024 11:23 AM T [facility] BLOOD (U) 3+(A) NEGATIVE 10/18/2024 11:23 AM T [facility] MUCUS MANY /LPF 10/18/2024 11:23 AM T [facility] WBC/HPF >100(H) <6 /HPF 10/18/2024 11:23 AM CDT [facility] RBC/HPF >100(H) <6 /HPF 10/18/2024 11:23 AM CDT [facility] SQUAMOUS EPITHELIALS MODERATE /HPF 10/18/2024 11:23 AM CDT [facility] URINE SPECIMEN OBTAINED BY CLEAN CATCH PROCEDURE / Unknown 10/18/2024 11:00 AM CDT us Yovana Zamora MD URINE ORDERABLES Final Result Performing Organization Address City/[facility]/ZIP Co de Phone Number [facility] [address] [place] [address], [place] [phone] * (ABNORMAL) MAGNESIUM (10/18/2024 10:45 AM CDT) MAGNESIUM 2.5(H) 1.8 - 2.4 MG/DL 10/18/2024 12:06 PM CDT [facility] 10/18/2024 10:4 5 AM CDT Yovana Zamora MD LABORATORY Final Result Performing Organization Address City/[facility]/ZIP Co de Phone Number [facility] [address] [place] [address], [place] [phone] * (ABNORMAL) SALICYLATE (10/18/2024 10:45 AM CDT) SALICYLATES 2.0(L) 2.8 - 20.0 MG/DL 10/18/2024 11:14 AM CDT [facility] Comment: THERAPEUTIC: 2.8-20.0 Toxic Level: >=30 10/18/2024 10:4 5 AM CDT Yovana Zamora MD LABORATORY Final Result Performing Organization Address City/[facility]/ZIP Co de Phone Number [facility] [address] [place] [address], * CK (CPK) (10/18/2024 10:45 AM CDT) CPK 88 21 - 215 U/L 10/18/2024 12:06 PM CDT [facility] 10/18/2024 10:4 5 AM CDT Yovana Zamora MD LABORATORY Final Result Performing Organization Address [facility] Co de Phone Number [facility] [address] [place] [address], * THYROID STIM HORMONE, TSH (10/18/2024 10:17 AM CDT) TSH 1.380 0.358 - 3.74 uIU/ML 10/18/2024 11:12 AM CDT [facility] Comment: HIGH DOSES OF BIOTIN MAY INTERFERE WITH THIS TEST RESULT. CORRELATION TO CLINICAL HISTORY AND PRESENTATION RECOMMENDED. 10/18/2024 10:1 7 AM CDT Yovana Zamora MD LABORATORY Final Result Performing Organization Address City/[facility]/ZIP Co de Phone Number [facility] [address] [place] [address], * ETHANOL (10/18/2024 10:17 AM CDT) Only the most recent of2 resultswithin the time period is included. ALCOHOL S/P/B <0.003 <0.003 G/DL 10/18/2024 11:12 AM CDT [facility] 10/18/2024 10:1 7 AM CDT Yovana Zamora MD LABORATORY Final Result Performing Organization Address [facility] Co de Phone Number [facility] [address] [place] [address], [place] [phone] * (ABNORMAL) ACETAMINOPHEN (10/18/2024 10:17 AM CDT) ACETAMINOPHEN S/P/B <2.0(L) 10.0 - 30.0 MCG/ML 10/18/2024 11:12 AM CDT [facility] Comment: THERAPEUTIC: 10-30 TOXIC: >200 10/18/2024 10:1 7 AM CDT Yovana Zamora MD LABORATORY Final Result Performing Organization Address [facility] de Phone Number [facility] [address] [place] [address], [place] [phone] * (ABNORMAL) BASIC METABOLIC PANEL (10/17/2024 4:12 PM CDT) SODIUM S/P/B 140 136 - 145 MMOL/L 10/17/2024 5:06 PM CDT [facility] POTASSIUM S/P/B 3.5 3.5 - 5.1 MMOL/L 10/17/2024 5:06 PM CDT [facility] CHLORIDE S/P/B 103 98 - 107 MMOL/L 10/17/2024 5:06 PM CDT [facility] CO2 27.0 21.0 - 32.0 MMOL/L 10/17/2024 5:06 PM CDT [facility] GLUCOSE 98 70 - 99 MG/DL 10/17/2024 5:06 PM CDT [facility] Comment: FASTING GLUCOSE 100 TO 125 MG/DL IS CONSISTENT WITH IMPAIRED FASTING GLUCOSE. FASTING GLUCOSE >125 MG/DL IS CONSISTENT WITH DIABETES. RANDOM GLUCOSE >200 MG/DL WITH HYPERGLYCEMIC SYMPTOMS IS CONSISTENT WITH DIABETES. PER ADA GUIDELINES BUN 18 6 - 24 MG/DL 10/17/2024 5:06 PM CDT [facility] CREATININE S/P/B 1.18(H) 0.55 - 1.02 MG/DL 10/17/2024 5:06 PM CDT [facility] CALCIUM S/P/B 10.0 8.4 - 10.5 MG/DL 10/17/2024 5:06 PM CDT [facility] ANION GAP 10.0 5.0 - 15.0 MMOL/L 10/17/2024 5:06 PM CDT [facility] OSMOLALITY (CALC) 292 MOSM/KG 025 5:06 PM T [facility] Comment:REFERENCE RANGE NOT ESTABLISHED GFR ESTIMATE 59(L) >89 ML/MIN/1. 73 M2 10/17/2024 5:06 PM CDT [facility] GFR NOTES GFR REFERENCE S: 10/17/2024 5:06 PM T [facility] Comment: THE ESTIMATED GFR [...] us Familia Carter MD LABORATORY Final Result [facility] [address] [place] [address], * CORONAVIRUS (COVID-19) ANTIGEN (10/17/2024 4:05 PM CDT) Pathologist [facility] CORONAVIRUS ANTIGEN IA NEGATIVE NEGATIVE 10/17/2024 5:06 PM CDT [facility] Comment: NEGATIVE RESULTS DO [...] SPECIMEN TYPE NASAL 10/17/2024 4:43 PM CDT [facility] NASAL NASAL STRUCTURE / Unknown 10/17/2024 4:05 PM CDT Familia Carter MD MICROBIOLOGY - GENERAL ORDERAB LES Final Result [facility] [address] [place] [address], * HEPATITIS PANEL,ACUTE (10/13/2023 3:24 AM CDT) [facility] HEPATITIS B SURFACE AG NON-REACT VARGHESE NON-REACT VARGHESE 10/13/2023 1:41 PM CDT [facility] Comment:HBsAg NOT DETECTED. HEP B CORE IGM NON-REACT VARGHESE NON-REACT VARGHESE 10/13/2023 1:41 PM CDT [facility] Comment: IgM ANTI HBc NOT DETECTED. DOES NOT EXCLUDE THE POSSIBILITY OF EXPOSURE TO OR INFECTION WITH HBV. NO RETEST REQUIRED. HIGH DOSES OF BIOTIN MAY INTERFERE WITH THIS TEST RESULT. CORRELATION TO CLINICAL HISTORY AND PRESENTATION RECOMMENDED. HAV IGM NON-REACT VARGHESE NON-REACT VARGHESE 10/13/2023 1:41 PM CDT [facility] Comment: IgM ANTI HAV NOT DETECTED. DOES NOT EXCLUDE THE POSSIBILITY OF EXPOSURE TO OR INFECTION WITH HAV. LEVELS OF IgM ANTI HAV MAY BE BELOW THE CUTOFF IN EARLY INFECTION. HEPATITIS C AB NON-REACT VARGHESE NON-REACT VARGHESE 10/13/2023 1:42 PM CDT [facility] Comment: ANTIBODIES TO HCV NOT DETECTED. DOES NOT EXCLUDE THE POSSIBILITY OF EXPOSURE TO HCV. 10/13/2023 3:24 AM CDT Tenisha Cheema MD LABORATORY Final Result [facility] [address] [place] [address], [id number] from Last 3 Months or Most Recently Relevant to Health Maintenance Insurance [employer] Advance Directives Documents on File Type Date Recorded Patient Varnish Filterer Expl anation Advance Directives and Living Will 05/10/2015 12:00 AM ADVANCED DIRECTIVES Advance Directives and Living Will 08/06/2013 12:00 AM ADVANCED DIRECTIVES Advance Directives and Living Will 12/28/2012 12:00 AM ADVANCED DIRECTIVES * Full Code (Latest Code Status on File) Date Activated Date Inactivated Comments 10/13/2023 5:53 AM 10/14/2023 10:50 AM 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
[2024-12-26 16:40] VITALS: BP 110/74; PULSE 81; RESP 18; TEMP 36.8; O2SAT 99
== END 2024-12-26 16:40 | disposition home or self-care (01) ==
PROVIDERS: Emergency Provider Emergency Medicine
DX: R10.9 Unspecified abdominal pain (principal); G89.29 Other chronic pain; F43.9 Reaction to severe stress, unspecified; G47.00 Insomnia, unspecified; F17.210 Nicotine dependence, cigarettes, uncomplicated
CPT/HCPCS: 99283

== ENCOUNTER 2024-12-26 20:25 | Emergency (ER) | payer OTHER, SELFPAY ==
--- OUTSIDE RECORDS SUMMARY | 2024-12-24 14:59 | XMS_ITS | Encounter Summary ---
Author Organization [facility] Address [facility] [place] [address] Care Team Providers Care Oxyacetylene Cutter Name Role Phone Delisa May [facility] Primary Care Provider [phone] Reason for Referral * Imaging (Urgent) - New Request Specialty Diagnoses / Procedures Referred By Contjose t Referred To Contact RADIOLOGY Procedures CTA CHEST Salo Dillon MD [address] [place] [address] Phone: tel: fax: Referral ID Status Reason Start Date Expiration Date V isits Requested Visits Authorized [id number] New Request 12/24/2024 12/24/2025 1 1 Reason for Visit * Reason Comments Chest Pain Encounter Details Date Type Department Care Team (Late st Contact Info) Description 12/24/2024 3:59 PM CDT - 12/24/2024 8:20 PM CDT Emergency [facility] Emergency Room [address] [place] [address] Salo Dillon MD [address] [place] [address] Keiko Altamirano MD [address] [place] [address] Chest Pain Discharge Disposition: Home or Self Care (Routine Discharge) Social History Tobacco Use Types Packs/Day Years Used Date Smoking Tobacco: Every Day Cigarettes Smokeless Tobacco: Never Alcohol Use Standard Drinks/Week Comments Not Currently 0 (1 standard drink = 0.6 oz pur e alcohol) [facility] Utilities Answer Date Recorded In the past [...] any time in the past 12 m [facility], were you homeless or living in a group home (including now)? Yes 10/13/2023 Comments No Sex and Gender Information Value Date Recorded Sex Assigned at Female 10/17/2024 3:24 PM CDT Legal Sex Female 11:36 PM CDT Gender Identity Female 12/25/2024 10:22 PM SIZING SPRAYER Sexual Orientation Straight 12/25/2024 10 :22 PM SIZING SPRAYER documented as of this encounter Last Filed [...] PM FARAT Jazmin Daley RN Active * [place] Suicide Severity Rating Scale (Screener/Recent Self-Report) Question [...] sent through Care Everywhere. * Chest Pain ([place]) documented in this encounter Medications at Time [...] request Patient requests to call Julio C [phone] to obtain transport. Patient refusing to give [...] pitting edema Differential diagnosis chest pain clues [place], PE, dissection, pericarditis, myocarditis, pneumothorax, esophageal pathology, [...] ECG QT 390 ECG QTC 386 Narrative [facility] Test Date: 2024-12-24 Pat Name: JJ SLATER Department: 85 Room: [place] [address] Gender: Female Bait Tier: : 1980 Requested By: SALO DILLON Order Number: [id number] Reading MD: Measurements Intervals [place] Rate: 58 P: 66 FL: 123 QRS: 67 QRSD: 90 T: 61 [...] STUDIES CTA CHEST Final Result by User, [email or web address] (12/24 1806) [facility] [address] [address] Examination: CTA CHEST Clinical history: Chest pain [...] XR CHEST PORTABLE Final Result by User, [id number] (12/25 1643) [facility] [address] [address] Examination: XR CHEST PORTABLE Exam time: 12/24/2024 [...] rhythm Rate: 58 normal P waves, normal FL, normal QRS, normal QT, normal T waves. [...] Chest pain, unspecified type (Primary) Disposition: Discharge Saol Dillon MD 12/24/241810 [1] Past Medical History: [...] 5:56 PM Narrative 12/24/2024 6:02 PM CDT [facility] [address] [facility] [address] Examination: CTA CHEST Clinical history: Chest pain [...] Procedure Note Everett Peterson MD - 12/24/2024 [facility] [address] [facility] [address] Examination: CTA CHEST Clinical history: Chest pain [...] 4:34 PM Narrative 12/24/2024 4:41 PM CDT [facility] [address] [facility]. [address] Examination: XR CHEST PORTABLE Exam time: 12/24/2024 4:14 PM Clinical history: Chest pain. Comparison: 12/23/2024. Technique: AP portable upright radiograph of the chest. Findings: Normal heart size. Normal distribution of the pulmonary vasculature. No focal parenchymal lung consolidation, pleural effusion, or pneumothorax. No acute osseous findings. Surgical clips noted in the upper abdomen. Procedure Note Juan Alberto Meier MD - 12/24/2024 [facility] [address] [address] Examination: XR CHEST PORTABLE Exam time: 12/24/2024 [...] (12/24/2024 4:10 PM CDT) ECG QT 390 [facility] RAD ECG QTC 386 [facility] RAD 12/24/2024 4:10 PM CDT Narrative [facility] RAD - 12/25/2024 10:09 AM SIZING SPRAYER [facility] Test Date: 2024-12-24 Pat Name: JJ SLATER Department: 85 Room: EXAM 303 Gender: Female Bait Tier: : 1980 Requested By: SALO DILLON Order Number: [id number] Reading MD: Bubba Reyes Measurements Intervals [place] Rate: 58 P: 66 FL: 123 QRS: 67 QRSD: 90 T: 61 QT: 390 QTc: 386 Interpretive Statements SINUS BRADYCARDIA Compared to ECG 12/23/2024 14:40:13 Sinus rhythm no longer present NG SPRAYER Procedure Note Reyes, Bubba Lang, MD - 12/25/2024 [facility] Test Date: 2024-12-24 Pat Name: JJ SLATER Department: 85 Room: EXAM 303 Gender: Female Bait Tier: : 1980 Requested By: SALO DILLON Order Number: [id number] Reading MD: Bubba Reyes Measurements Intervals [place] Rate: 58 P: 66 FL: 123 QRS: 67 QRSD: 90 T: 61 QT: 390 QTc: 386 Interpretive Statements SINUS BRADYCARDIA Compared to ECG 12/23/2024 14:40:13 Sinus rhythm no longer present NG SPRAYER Salo Dillon MD ECG ORDERABLES Final Result Performing Organization Address [facility]/ZIP Co de Phone Number [facility]) RAD * PROTIME/INR, VENOUS (12/24/2024 4:10 PM CDT) PROTIME 12.3 9.1 - 12.4 SEC 12/24/2024 4:46 PM CDT [facility] INR 1.1 12/24/2024 4:46 PM CDT [facility] Comment: Recommend INR ranges for Oral Anticoagulant Therapy: Mechanical Cardiac Values 2.5-3.5 All others indication 2.0-3.0 12/24/2024 4:10 PM CDT Salo Dillon MD LABORATORY Final Result [facility] [address] [place] [address], * LIPASE (12/24/2024 4:10 PM CDT) LIPASE 63 16 - 77 UNITS/L 12/24/2024 4:35 PM CDT [facility] 12/24/2024 4:10 PM CDT us Salo Dillon MD LABORATORY Final Result Performing Organization Address [facility] Co de Phone Number [facility] [address] [place] [address], [place] [phone] * TROPONIN, QUANT (12/24/2024 4:10 PM CDT) Pathologist [facility] TROPONIN I HIGH SENSITIVITY 6 0 - 50 ng/L 12/24/2024 4:38 PM CDT [facility] Comment: HIGH DOSES OF BIOTIN, TROPONIN-SPECIFIC AUTOANTIBODIES, AND ANTIBODY THERAPY CONTAINING HAMA MAY INTERFERE WITH THIS TEST RESULT. CORRELATION TO CLINICAL HISTORY AND PRESENTATION RECOMMENDED. 12/24/2024 4:10 PM CDT us Salo Dillon MD LABORATORY Final Result Performing Organization Address [facility] Co de Phone Number [facility] [address] [place] [address], [place] [phone] * (ABNORMAL) COMPREHENSIVE METABOLIC PANEL (12/24/2024 4:10 PM CDT) [facility] GLUCOSE 84 70 - 99 MG/DL 12/24/2024 4:35 PM CDT [facility] BUN 21(H) 7 - 18 MG/DL 12/24/2024 4:35 PM CDT [facility] CREATININE S/P/B 0.78 0.55 - 1.02 MG/DL 12/24/2024 4:35 PM CDT [facility] SODIUM S/P/B 139 136 - 145 MMOL/L 12/24/2024 4:35 PM CDT [facility] POTASSIUM S/P/B 4.0 3.5 - 5.1 MMOL/L 12/24/2024 4:35 PM CDT [facility] CHLORIDE S/P/B 103 100 - 108 MMOL/L 12/24/2024 4:35 PM [facility] CO2 31.8 21 - 32 MMOL/L 12/24/2024 4:35 PM [facility] CALCIUM S/P/B 8.5 8.5 - 10.1 MG/DL 12/24/2024 4:35 PM [facility] BILIRUBIN TOTAL S/P/B 0.5 0.2 - 1.2 MG/DL 12/24/2024 4:35 PM [facility] TOTAL PROTEIN S/P/B 6.4 6.4 - 8.2 G/DL 12/24/2024 4:35 PM [facility] ALBUMIN S/P/B 3.4 3.4 - 5.0 G/DL 12/24/2024 4:35 PM [facility] AST 11(L) 15 - 37 U/L 12/24/2024 4:35 PM [facility] ALT 12(L) 14 - 55 U/L 12/24/2024 4:35 PM [facility] ALKALINE PHOSPHATASE S/P/B 71 50 - 136 U/L 12/24/2024 4:35 PM [facility] ANION GAP 4.2(L) 5 - 15 MMOL/L 12/24/2024 4:35 PM [facility] BUN CREATININE RATIO 26.9(H) 6 - 26 12/24/2024 4:35 PM [facility] A/G RATIO 1.1 1.0 - 2.0 RATIO 12/24/2024 4:35 PM [facility] GFR ESTIMATE >90 >90 ML/MIN/1.7 3 M2 12/24/2024 4:35 PM CDT [facility] Comment: NOTE: eGFR is not calculated for patients <18 years of age. This is an estimated GFR calculation using the new CKD EPI creatinine equation without race and so does not require a correction factor for race. This estimated GFR should not be used for calculating drug doses. 12/24/2024 4:10 PM CDT Salo Dillon MD LABORATORY Final Result [facility] [address] [place] [address], [place] [phone] * (ABNORMAL) CBC W/DIFF AUTOMATED (12/24/2024 4:10 PM CDT) WBC 5.15 4.4 - 11.0 x10'3/uL 12/24/2024 4:23 PM CDT [facility] RBC 3.80(L) 4.50 - 5.10 x10'6/uL 12/24/2024 4:23 PM CDT [facility] HGB 11.6(L) 12.3 - 15.3 G/DL 12/24/2024 4:23 PM CDT [facility] HCT 35.3(L) 35.9 - 44.6 % 12/24/2024 4:23 PM CDT [facility] MCV 92.9 80.0 - 96.0 FL 12/24/2024 4:23 PM CDT [facility] MCH 30.5 25.3 - 30.9 PG 12/24/2024 4:23 PM CDT [facility] MCHC 32.9 31.0 - 34.1 G/DL 12/24/2024 4:23 PM CDT [facility] RDW 13.2 12.4 - 15.1 % 12/24/2024 4:23 PM CDT [facility] PLT 337 151 - 353 x10'3/uL 12/24/2024 4:23 PM CDT [facility] MPV 9.6 9.6 - 12.0 FL 12/24/2024 4:23 PM CDT [facility] RBC MORPHOLOGY NORMAL 12/24/2024 4:23 PM CDT [facility] PLT MORPH. NORMAL 12/24/2024 4:23 PM T [facility] WBC MORPHOLOGY NORMAL 12/24/2024 4:23 PM CDT [facility] LYMPHOCYTES % 29.5 15.8 - 45.0 % 12/24/2024 4:23 PM CDT [facility] NEUTROPHILS % 59.4 42.1 - 71.9 % 12/24/2024 4:23 PM CDT [facility] MONOCYTES % 8.7 5.7 - 12.5 % 12/24/2024 4:23 PM CDT [facility] EOSINOPHILS 1.2 0.0 - 5.6 % 12/24/2024 4:23 PM CDT [facility] BASOPHILS 1.0 0.0 - 1.3 % 12/24/2024 4:23 PM CDT [facility] ABS. NEUTROPHILS 3.06 1.40 - 6.00 x10'3/uL 12/24/2024 4:23 PM T [facility] IMMATURE GRANS % 0.2 0.0 - 0.5 % 12/24/2024 4:23 PM T [facility] ABS. LYMPHOCYTES 1.52 0.80 - 4.70 x10'3/uL 12/24/2024 4:23 PM CDT [facility] 12/24/2024 4:10 PM CDT Salo Dillon MD LABORATORY Final Result [facility] [id number] [facility] [address], [place] [phone] documented in this encounter Visit Diagnoses Diagnosis [...] RTR) documented in this encounter Care Teams Oxyacetylene Cutter Relationship Specialty Start Date End Date DelisaMay, CHIP [address] [place] [id number] PCP - General Nurse Practitioner Family 12/23/24 documented as of this encounter
--- OUTSIDE RECORDS SUMMARY | 2024-12-25 19:26 | XMS_ITS | Encounter Summary ---
Author Organization [facility] Address [facility] [place] [address] Care Team Providers Care Gui Developer Name Role Phone Delisa May [facility] Primary Care Provider [phone] Reason for Visit * Reason Comments Chest Pain Encounter Details Date Type Department Care Team (Late st Contact Info) Description 12/25/2024 7:26 PM BOTTLE CLEANER - 12/25/2024 9:07 PM [facility] Emergency [facility] Emergency Room [address] [place], [place] [phone] Rl Virgen MD [address] [place] [address] Chest Pain Discharge Disposition: Home or Self Care (Routine Discharge) Social History Tobacco Use Types Packs/Day Years Used Date Smoking Tobacco: Every Day Cigarettes Smokeless Tobacco: Never Alcohol Use Standard Drinks/Week Comments Not Currently 0 (1 standard drink = 0.6 oz pur e alcohol) [facility] Utilities Answer Date Recorded In the past 12 months has e [employer], gas, oil, or water [employer] threatened to shut off services in your [...] time in the past 12 m [facility], were you homeless or living in a senior care (including now)? Yes 10/13/2023 Comments No Sex and Gender Information Value Date Recorded Sex Assigned at Female 10/17/2024 3:24 PM CDT Legal Sex Female 11:36 PM CDT Gender Identity Female 12/25/2024 10:22 PM BOTTLE CLEANER Sexual Orientation Straight 12/25/2024 10 :22 PM BOTTLE CLEANER documented as of this encounter Last Filed Vital Signs Vital Sign Reading Time Taken Comments Blood Pressure 105/54 12/25/2024 8:30 PM BOTTLE CLEANER Pulse 59 12/25/2024 8:55 PM BOTTLE CLEANER Temperature 37 C (98.6 F) 12/25/2024 7:29 PM BOTTLE CLEANER Respiratory Rate 11 12/25/2024 8:55 PM BOTTLE CLEANER Oxygen Saturation 97% 12/25/2024 8:55 PM BOTTLE CLEANER Inhaled Oxygen Concentration - - Weight 52.2 kg (115 lb 1.3 oz) 12/25/2024 7:29 P M BOTTLE CLEANER Height 154.9 cm (5' 1) 12/25/2024 7:29 PM BOTTLE CLEANER Body Mass Index 21.74 12/25/2024 7:29 PM BOTTLE CLEANER documented in this encounter Functional Status * [...] 7:29 PM Harsh Self RN Active * [place] Suicide Severity Rating Scale (Screener/Recent Self-Report) Question [...] sent through Care Everywhere. * Abdominal pain (Kazakh) documented in this encounter Medications at Time [...] the ed with a steady unassisted gait. LE CLEANER * Karo Pena RN - 12/25/2024 9:01 [...] gait towards the exit of the ed. LE CLEANER * Karo Pena RN - 12/25/2024 7:27 [...] pharmacological methods for relief prior to arrival. LE CLEANER documented in this encounter Plan of Treatment Not on file documented as of this encounter Procedures Procedure Name Priority Date/Time Associated Diagnosis Comments ECG 12-LEAD Routine 12/25/2024 7:28 PM BOTTLE CLEANER documented in this encounter Results * ECG 12 lead (12/25/2024 7:28 PM BOTTLE CLEANER) ECG QT 374 [facility] RAD ECG QTC 404 [facility] RAD 12/25/2024 7:28 PM BOTTLE CLEANER Narrative [facility] RAD - 12/25/2024 7:36 PM BOTTLE CLEANER [facility] Test Date: 2024-12-25 Pat Name: JJ ROUSE Department: 85 Room: EXAM 505 Gender: Female Marketing Director Assisted Living: : 1980 Requested By: RL VIRGEN Order Number: [id number] Reading MD: Bubba Reyes Measurements Intervals [place] Rate: 70 P: 74 [place]: 126 QRS: 69 QRSD: 97 T: 62 QT: 374 QTc: 404 Interpretive Statements SINUS RHYTHM Compared to ECG 12/24/2024 16:10:34 Sinus bradycardia no longer present LE CLEANER Procedure Note Bubba Reyes MD - 12/25/2024 [facility] [place] Test Date: 2024-12-25 Pat Name: JJ ROUSE Department: 85 Room: EXAM 505 Gender: Female Marketing Director Assisted Living: : 1980 Requested By: RL VIRGEN Order Number: [id number] Reading MD: Bubba Reyes Measurements Intervals [place] Rate: 70 P: 74 [place]: 126 QRS: 69 QRSD: 97 T: 62 QT: 374 QTc: 404 Interpretive Statements SINUS RHYTHM Compared to ECG 12/24/2024 16:10:34 Sinus bradycardia no longer present LE CLEANER us Rl Virgen MD ECG ORDERABLES Final Result [facility] RAD documented in this encounter Visit Diagnoses Diagnosis Abdominal pain- Primary Abdominal pain, unspecified site documented in this encounter Administered Medications Inactive Administered Medications - up to 3 most recent administrations Medication Order MAR Action Action Date Dose Rate Site ytbarmmrn-jhjpplxe-jsfyjlqozbv ([employer] [employer]) [id number] mg/30mL suspension 5 mL, Oral, Once, 1 dose, On 12/25/24 at 1999, Jose Randall Given 12/25/2024 7:59 PM BOTTLE CLEANER 5 mLs documented in this encounter Active and Recently Administered Medications Due to Daylight Saving Time, this section may contain times in both CDT and BOTTLE CLEANER. Scheduled Medication Order 12/23/2024 12/24/2024 12/25/2024 jtpscoxwo-ucwzyfyb-ofvmgiyilqs ([employer] [employer]ENGTH) [id number] mg/30mL suspension (COMPLETED) 5 mL, Oral, Once, 1 dose, On 12/25/24 at 1999, Jose Randall 1956 (Given - Provid er: Deborah Huitron RN) documented in this encounter Care Teams Gui Developer Relationship Specialty Start Date End Date May, CHOCOLATE FINISHER OPERATOR [address] [place] [address] PCP - General Nurse Practitioner Family 12/23/24 documented as of this encounter
--- OUTSIDE RECORDS SUMMARY | 2024-12-25 22:14 | XMS_ITS | Encounter Summary ---
Author Organization [facility] Address [facility] [place] [address] Care Team Providers Care Nail Polish Brush Machine Feeder Name Role Phone Delisa, May [facility] Primary Care Provider [phone] Reason for Visit * Reason Comments Chest Pain Encounter Details Date Type Department Care Team (Late st Contact Info) Description 12/25/2024 10:14 PM TOOL AND DIE MAKER LEVEL FIVE - 12/26/2024 11:40 AM [facility] Emergency [facility] Emergency Room [address] [place], [place] [id number] John Virgen MD [address] [place] [address] Lionel Staples MD [address] [place] [address] Chest Pain Discharge Disposition: Left Against Medical Advice Social History Tobacco Use Types Packs/Day Years Used Date Smoking Tobacco: Every Day Cigarettes Smokeless Tobacco: Never Alcohol Use Standard Drinks/Week Comments Not Currently 0 (1 standard drink = 0.6 oz pur e alcohol) [facility] Utilities Answer Date Recorded In the past [...] were you homeless or living in a [facility] (including now)? Yes 10/13/2023 Comments No Sex and Gender Information Value Date Recorded Sex Assigned at Female 10/17/2024 3:24 PM CDT Legal Sex Female 11:36 PM CDT Gender Identity Female 12/25/2024 10:22 PM TOOL AND DIE MAKER LEVEL FIVE Sexual Orientation Straight 12/25/2024 10 :22 PM TOOL AND DIE MAKER LEVEL FIVE documented as of this encounter Last Filed Vital Signs Vital Sign Reading Time Taken Comments Blood Pressure 91/55 12/26/2024 7:00 AM TOOL AND DIE MAKER LEVEL FIVE Pulse 57 12/26/2024 7:00 AM TOOL AND DIE MAKER LEVEL FIVE Temperature 36.5 C (97.7 F) 12/26/2024 7:00 AM TOOL AND DIE MAKER LEVEL FIVE Respiratory Rate 18 12/25/2024 10:18 PM TOOL AND DIE MAKER LEVEL FIVE Oxygen Saturation 97% 12/26/2024 7:00 AM TOOL AND DIE MAKER LEVEL FIVE Inhaled Oxygen Concentration - - Weight 49.9 kg (110 lb) 12/25/2024 10:18 PM TOOL AND DIE MAKER LEVEL FIVE Height 154.9 cm (5' 1) 12/25/2024 10:18 PM TOOL AND DIE MAKER LEVEL FIVE Body Mass Index 20.78 12/25/2024 10:18 PM TOOL AND DIE MAKER LEVEL FIVE documented in this encounter Functional Status * [...] 11:13 PM Deborah Cortes RN Active * [place] Suicide Severity Rating Scale (Screener/Recent Self-Report) Question [...] was making arrangements for inpatient at their [place] facility. Patient was in agreement to wait [...] returned to patient refused discharge vital signs AND DIE MAKER LEVEL FIVE AND DIE MAKER LEVEL FIVE * Becca Stanford RN - 12/26/2024 10:38 AM CST CRISIS remains here and working with [patient AND DIE MAKER LEVEL FIVE * Becca Stanford RN - 12/26/2024 9:32 AM CST CRISIS spoke with patient requesting to go to [place] since she has been there before. CRISIS askedher about [facility] and she is in agreement for that as well. CRISIS is doing a safety plan incase the patient decides to leave AMA AND DIE MAKER LEVEL FIVE * Becca Stanford RN - 12/26/2024 9:19 AM CST CRISIS here to revaluate patient informed of events of earlier today. Medications as directed AND DIE MAKER LEVEL FIVE * Becca Stanford RN - 12/26/2024 8:51 AM CST Spoke at length with patient denies being suicidal or homicidal concerned about wanting to smoke. Attempted to get patient to wait for CRISIS not wanting to stay Called a friend of hers named Davian whodid not answer the phone [phone] also left a message for patient sister ( unknown name ) [phone] Is being cooperative will continue to observe AND DIE MAKER LEVEL FIVE * Lionel Staples MD - 12/26/2024 8:35 [...] They arranged for patient to go to [place] to get help with drug abuse. Patient [...] MD 12/26/2024 Lionel Staples MD 12/26/24 1219 AND DIE MAKER LEVEL FIVE * Becca Stanford RN - 12/26/2024 8:33 AM CST [facility] Officer Justyn have had a discussion with patient and they have no criteria to force her to stay. They stated she is not suicidal or homicidal at this time encouraging her to stay until CRISIS arrives [place] Officer Justyn spoke with Dr Staples to inform her of their conversation AND DIE MAKER LEVEL FIVE AND DIE MAKER LEVEL FIVE * Becca Stanford RN - 12/26/2024 8:23 AM CST [place] here talking with patient AND DIE MAKER LEVEL FIVE * Becca Stanford RN - 12/26/2024 8:21 AM CST Walking in the halls and in the Nurses station wanting to leave wanting to smoke asking for the police to be called. Call placed to [facility] dispatch in regards to patient walking out of the [facility] returned and continued to say she wants to leave. Call placed to CRISIS and they will come and revaluate her. AND DIE MAKER LEVEL FIVE * Becca Stanford RN - 12/26/2024 7:13 AM CST Assumed care of patient alert cooperative no compliant's waiting to hear back from faculties where paperwork was faxed AND DIE MAKER LEVEL FIVE * John Virgen MD - 12/26/2024 1:26 [...] They arranged for patient to go to [place] to get help with drug abuse. Patient [...] Medical History: Diagnosis Date ??? 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 Drug use: Yes Types: Methamphetamines, Marijuana AND DIE MAKER LEVEL FIVE AND DIE MAKER LEVEL FIVE * Karo Pena RN - 12/25/2024 11:04 PM CSTSummary: crisis Crisis contacted for evaluation AND DIE MAKER LEVEL FIVE * Deborah Huitron RN - 12/25/2024 10:17 [...] pharmacological methods for relief prior to arrival. AND DIE MAKER LEVEL FIVE documented in this encounter Plan of Treatment Not on file documented as of this encounter Procedures Procedure Name Priority Date/Time Associated Diagnosis Comments DRUG SCREEN RAPID STAT 12/25/2024 11: 24 PM TOOL AND DIE MAKER LEVEL FIVE TEST URINE STAT 12/25/2024 11:24 PM TOOL AND DIE MAKER LEVEL FIVE documented in this encounter Results * TEST URINE (12/25/2024 11:24 PM TOOL AND DIE MAKER LEVEL FIVE) URINE HCG TEST NEG NEGATIVE 12/25/2024 11:41 PM TOOL AND DIE MAKER LEVEL FIVE [facility] Comment: VERY DILUTE URINE SPECIMENS MAY NOT CONTAIN COLORIST FORMULATOR LEVELS OF HCG. IF IS STILL SUSPECTED, A SERUM HCG TEST IS RECOMMENDED. URINE SPECIMEN FROM URETHRA / Unknown 12/25/2024 11:24 PM TOOL AND DIE MAKER LEVEL FIVE John Virgen MD URINE ORDERABLES Final Result [facility] [address] [place] [address], [place] [phone] * (ABNORMAL) DRUG SCREEN RAPID (12/25/2024 11:24 PM TOOL AND DIE MAKER LEVEL FIVE) Pathologist [facility] AMPHETAMINE (U) NONE DETECTED NONE DETECTED 12/25/2024 11:45 PM TOOL AND DIE MAKER LEVEL FIVE [facility] BARBITURATES SCREEN (U) NONE DETECTED NONE DETECTED 12/25/2024 11:45 PM TOOL AND DIE MAKER LEVEL FIVE [facility] BENZODIAZEPINES SCREEN (U) DETECTED(A) NONE DETECTED 12/25/2024 11:45 PM TOOL AND DIE MAKER LEVEL FIVE [facility] BUPRENORPHINE SCREEN (U) DETECTED(A) NONE DETECTED 12/25/2024 11:45 PM TOOL AND DIE MAKER LEVEL FIVE [facility] COCAINE METABOLITES (U) NONE DETECTED NONE DETECTED 12/25/2024 11:45 PM TOOL AND DIE MAKER LEVEL FIVE [facility] METHAMPHETAMINE (U) DETECTED(A) NONE DETECTED 12/25/2024 11:45 PM TOOL AND DIE MAKER LEVEL FIVE [facility] METHADONE (U) NONE DETECTED NONE DETECTED 12/25/2024 11:45 PM TOOL AND DIE MAKER LEVEL FIVE [facility] OPIATE SCREEN (U) NONE DETECTED NONE DETECTED 12/25/2024 11:45 PM TOOL AND DIE MAKER LEVEL FIVE [facility] OXYCODONE SCREEN (U) NONE DETECTED NONE DETECTED 12/25/2024 11:45 PM TOOL AND DIE MAKER LEVEL FIVE [facility] PHENCYCLIDINE PCP (U) NONE DETECTED NONE DETECTED 12/25/2024 11:45 PM TOOL AND DIE MAKER LEVEL FIVE [facility] CANNABINOIDS SCREEN (U) NONE DETECTED NONE DETECTED 12/25/2024 11:45 PM TOOL AND DIE MAKER LEVEL FIVE [facility] TRICYCLIC ANTIDEPRESSANT SCREEN (U) NONE DETECTED NONE DETECTED 12/25/2024 11:45 PM TOOL AND DIE MAKER LEVEL FIVE [facility] Comment: NOTE: RESULTS OF THIS [...] URINE SPECIMEN / Unknown 12/25/2024 11:24 PM TOOL AND DIE MAKER LEVEL FIVE us John Virgen MD URINE ORDERABLES Final Result Performing Organization Address City/State/[facility] Co de Phone Number [facility] [address] [place] [address], [place] [phone] documented in this encounter Visit Diagnoses Diagnosis [...] 12/26/2024 9:07 AM Given 12/26/2024 9:18 AM TOOL AND DIE MAKER LEVEL FIVE 1 Film LORazepam (ATIVAN) tablet 1 mg 1 mg, Oral, Once, 1 dose, On Thu12/26/24 at 0915 Given 12/26/2024 9:18 AM TOOL AND DIE MAKER LEVEL FIVE 1 mg documented in this encounter Active and Recently Administered Medications Due to Daylight Saving Time, this section may contain times in both CDT and TOOL AND DIE MAKER LEVEL FIVE. Scheduled Medication Order 12/24/2024 12/25/2024 12/26/2024 buprenorphine-naloxone [...] Student) documented in this encounter Care Teams Nail Polish Brush Machine Feeder Relationship Specialty Start Date [facility] [address] [place] [address] PCP - General Nurse Practitioner Family 12/23/24 documented as of this encounter
[2024-12-26 20:25] VITALS: BP 119/67; PULSE 82; RESP 18; TEMP 36.3; O2SAT 100
--- OUTSIDE RECORDS SUMMARY | 2024-12-26 20:26 | XMS_ITS | Encounter Summary ---
Author Organization [facility] Address [facility] [place] [address] Care Team Providers Care Operations Specialists Name Role Phone Delisa, May [facility] Primary Care Provider [phone] Encounter Details Date Type Department Care Team (Latest Contact Info) Description 12/25/2024 Travel Social History Tobacco Use Types Packs/Day Years Used Date Smoking Tobacco: Every Day Cigarettes Smokeless Tobacco: Never Alcohol Use Standard Drinks/Week Comments Not Currently 0 (1 standard drink = 0.6 oz pur e alcohol) [facility] Utilities Answer Date Recorded In the past 12 months has [employer], gas, oil, or water [employer] threatened to shut off services in your [...] CDT Gender Identity Female 12/25/2024 10: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
--- OUTSIDE RECORDS SUMMARY | 2024-12-26 20:26 | XMS_ITS | Clinical Summary ---
Author Organization [facility] Address [address] [place] [address] Care Team Providers Care Preparation Supervisor Name Role Phone Christofer Stewart MD [...] CDT - 12/17/2024 8:46 PM CDT Emergency [facility] Emergency Department [facility] [place] [address] Discharge Disposition: Left without being seen 10/21/2024 Telephone [facility] Primary Care at [place] [address] [facility] [address] [place] [address] Christofer Stewart MD 10/17/2024 1:35 AM CDT - 10/17/2024 2:55 AM CDT Emergency [facility] Emergency Department [address] [place] [address] Jamarcus Irvin MD Kanumuri, Raghu, MD Chest [...] on file 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 chest pain Views: 2 COMPARISON: 10/17/2024 Procedure Note Rick Grijalva MD - 12/17/2024 MEDICAL RECORDS NUMBER: [id number] PROCEDURE: XR CHEST PA LATERAL 2 VIEWS [...] Data last revised 2020. Testing performed by: [address] [address] Blood 12/17/2024 8:10 PM CDT 12/17/2024 8:14 PM CDT Hannah Muro Jr., MD LAB BLOOD ORDERABLES Fi nal Result Performing Organization Address City/[facility]/ZIP Co de Phone Number RAUL [address] [place] [address] * eGFR (12/17/2024 8:10 PM CDT) eGFR [...] was last reviewed 2020. Testing performed by: [facility], [address] [place] [address]., [address] Blood 12/17/2024 8:10 PM CDT 12/17/2024 8:14 PM CDT us Hannah Muro Jr., MD LAB BLOOD ORDERABLES Fi nal Result Performing Organization Address City/[facility]/ZIP Co de Phone Number RAUL [address] [place] [address] * Differential, auto (12/17/2024 8:10 PM CDT) [facility] Neutrophil abs 4.44 1.50 - 6.50 K/cumm Comment:Testing performed by : [address] [address] Imm gran abs 0.01 0.00 - 0.10 K/cumm [facility] Comment:Testing performed by : [address] [address] Lymphocyte abs 2.64 0.80 - 3.30 K/cumm [facility] Comment:Testing performed by : [address] [address] Monocyte abs 0.68 0.20 - 0.80 K/cumm [facility] Comment:Testing performed by : [address] [address] Eosinophil abs 0.10 0.00 - 0.50 K/cumm [facility] Comment:Testing performed by : [address] [address] Basophil abs 0.04 0.00 - 0.10 K/cumm [facility] Comment:Testing performed by : [address] [address] Neutrophil pct 56.1 % [facility] Comment: Interpretive Data Percent cell count reference ranges are not reported, since discordance with absolute values may lead to misinterpretation of CBC data. Current Interpretive Data was last revised on 2017. Testing performed by: [address] [address] Imm gran pct 0.1 % [facility] Comment: Interpretive Data Percent cell count reference ranges are not reported, since discordance with absolute values may lead to misinterpretation of CBC data. Current Interpretive Data was last revised on 2017. Testing performed by: [address] [address] Lymphocyte pct 33.4 % [facility] Comment: Interpretive Data Percent cell count reference ranges are not reported, since discordance with absolute values may lead to misinterpretation of CBC data. Current Interpretive Data was last revised on 2017. Testing performed by: [address] [address] Monocyte pct 8.6 % [facility] Comment: Interpretive Data Percent cell count reference ranges are not reported, since discordance with absolute values may lead to misinterpretation of CBC data. Current Interpretive Data was last revised on 2017. Testing performed by: [address] [address] Eosinophil pct 1.3 % RAUL Comment: Interpretive Data Percent cell count reference ranges are not reported, since discordance with absolute values may lead to misinterpretation of CBC data. Current Interpretive Data was last revised on 2017. Testing performed by: [address] [address] Basophil pct 0.5 % [facility]UL Comment: Interpretive Data Percent cell count reference ranges are not reported, since discordance with absolute values may lead to misinterpretation of CBC data. Current Interpretive Data was last revised on 2017. Testing performed by: [address] [address] Blood 12/17/2024 8:10 PM CDT 12/17/2024 8:14 PM CDT us Hannah Muro Jr., MD LAB BLOOD ORDERABLES nal Result [facility] [address] [facility] Department [place] [address] * (ABNORMAL) CBC with auto differential (12/17/2024 8:10 PM CDT) WBC 7.91 3.80 - 9.90 K/cumm Comment:Testing performed by : [address] [address] Hgb 11.2(L) 11.9 - 15.5 g/dL [facility] Comment:Testing performed by : [address] [address] Hct 32.7(L) 35.6 - 45.5 % [facility] Comment:Testing performed by : [address] [address] Plt 367 150 - 400 K/cumm [facility] Comment:Testing performed by : [address] [address] MPV 9.4 9.1 - 12.3 fL RAUL Comment:Testing performed by : [address] [address] RBC 3.68(L) 3.90 - 5.20 M/cumm [facility] Comment:Testing performed by : [address] [address] MCV 88.9 81.3 - 96.4 fL RAUL Comment:Testing performed by : [address] [address] MCH 30.4 27.1 - 33.3 pg RAUL Comment:Testing performed by : [address] [address] MCHC 34.3 32.3 - 35.7 g/dL RAUL Comment:Testing performed by : [address] [address] RDW CV 12.9 11.1 - 14.9 % RAUL Comment:Testing performed by : [address] [address] RDW SD 42.3 35.7 - 48.1 fL RAUL Comment:Testing performed by : [address] [address] NRBC abs 0.00 0.00 - 0.01 K/cumm [facility]UL Comment:Testing performed by : [address] [address] Blood Venous blood specimen / Unknown 12/17/2024 8:10 PM CDT 12/17/2024 8:14 PM CDT us Hannah Muro Jr., MD LAB BLOOD ORDERABLES Fi nal Result RAUL [address] [facility] Department [place] [address] * (ABNORMAL) Comprehensive metabolic panel (12/17/2024 8:10 PM CDT) Sodium 139 135 - 145 mmol/L Comment:Testing performed by : [address], [place]., [address] Potassium, pl 4.0 3.3 - 4.9 mmol/L RAUL Comment:Testing performed by : [address], [place]., [address] Chloride 104 97 - 110 mmol/L RAUL Comment:Testing performed by : [address], [place]., [address] CO2 26 22 - 32 mmol/L RAUL Comment:Testing performed by : [address], [place]., [address] Anion gap 9 2 - 15 mmol/L RAUL Comment:Testing performed by : [address], [place]., [address] BUN 17 6 - 25 mg/dL RAUL Comment:Testing performed by : [address], [place]., [address] Creatinine 0.80 0.60 - 1.10 mg/dL RAUL Comment:Testing performed by : [address], [place]., [address] Glucose 103 70 - 199 mg/dL [facility] Comment: Interpretive Data Fasting glucose >/= 126 [...] was last revised 2022. Testing performed by: [address] [address] Calcium 9.1 8.5 - 10.3 mg/dL RAUL Comment:Testing performed by : [address], [place]., [address] Bilirubin, total 0.2 0.1 - 1.2 mg/dL RAUL Comment:Testing performed by : [address] [address] Protein, pl 6.3(L) 6.5 - 8.5 g/dL RAUL Comment:Testing performed by : [address] [address] Albumin 3.9 3.5 - 5.0 g/dL [facility] COLON Comment:Testing performed by : [address], [address] Alk phos 69 40 - 130 Units/L RAUL Comment:Testing performed by : [address] [address] ALT 10 7 - 45 Units/L RAUL Comment:Testing performed by : [address], [address] AST 16 10 - 45 Units/L RAUL Comment:Testing performed by : [address], [address] Blood 12/17/2024 8:10 PM CDT 12/17/2024 8:14 PM CDT us Hannah Muro Jr., MD LAB BLOOD ORDERABLES Fi nal Result RAUL [address] [facility] Department of Laboratories [place], [place] [id number] * ECG 12 lead (12/17/2024 8:02 PM CDT) Ventricular Rate EKG/Min 67 BPM [facility] Atrial Rate 67 BPM [facility] [place]-Interval (MSEC) 120 ms [facility] QRS-Interval (MSEC) 94 ms [facility] QT-Interval (MSEC) 392 ms [facility] QTc 414 ms [facility] P [place] 65 degrees [facility] R [place] 60 degrees [facility] T [place] 58 degrees [facility] Diagnosis Normal sinus rhythm Possible Left atrial enlargement Borderline ECG No previous ECGs available Confirmed by MD KARI, HANNAH ([id number]) on 12/18/2024 10:03:54 AM [facility] 12/17/2024 8:02 PM CDT 12/18/2024 10:03 AM CDT us Hannah Muro Jr., MD ECG ORDERABLES Final R esult [facility] * XR Chest Pa Lateral 2 Vw (10/17/2024 2:20 AM CDT) Anatomical Region Laterality Modality Body, Chest N/A Computed Radiogr aphy 10/17/2024 2:35 AM CDT Narrative 10/17/2024 2:36 AM CDT EXAM DESCRIPTION: XR CHEST PA LATERAL 2 VIEWS REASON FOR STUDY: cough Pt has flight of ideas and multiple medical complaints arrived via [facility] discharged from [place] this AM. Smoker TECHNIQUE: Frontal and lateral [...] Ml Foster M.D. SN: SN Report ID: [id number] Reading Location: [id number] Procedure Note Ml Fotser MD - 10/17/2024 EXAM DESCRIPTION: XR CHEST PA LATERAL 2 VIEWS REASON FOR STUDY: cough Pt has flight of ideas and [facility] [place] [facility]. Smoker TECHNIQUE: Frontal and lateral [...] Ml Foster M.D. SN: SN Report ID: [id number] Reading Location: [id number] us Tre Roche MD IMG XR PROCEDURES Final Result * ECG 12 lead (10/17/2024 12:07 AM CDT) 10/17/2024 12:0 7 AM CDT Narrative [facility] - 10/17/2024 6:47 AM CDT Vent Rate: 84 bpm RR Interval: 709 msec [place] Interval: 111 msec QRS Duration: 96 msec QT Interval: 362 msec QTC Interval: 403 msec P-R-T [place]: 80 - 73 - 64 degrees IMPRESSION: Baseline artifact, probable SINUS RHYTHM WITH SHORT [place] INTERVAL LEFT ATRIAL ENLARGEMENT [-0.15mV P WAVE IN V1/V2] POSSIBLE LEFT VENTRICULAR HYPERTROPHY [VOLTAGE CRITERIA PLUS LAE OR QRS WIDENING] ABNORMAL ECG NO CHANGE FROM PREVIOUS TRACING NOTED Electronically Signed By: Francois Casarez MD us Jamarcus Irvin MD ECG ORDERABLES Final Result [facility] from Last 3 Months Insurance [facility] Advance Directives For more information, please contact: [phone] * Full Code (Latest Code Status on File) Date Activated Date Inactivated Comments 10/20/2023 12:17 PM 10/20/2023 8:58 PM Care Teams Preparation Supervisor Relationship Specialty Start Date End Date Christofer Stewart MD PCP - General Family Medicine 06/23/23
--- OUTSIDE RECORDS SUMMARY | 2024-12-26 20:27 | XMS_ITS | Clinical Summary ---
Author Organization [facility] [employer] Address [address] [place] [address] Care Team Providers Care Manager Project Name Role Phone Mario Logan MD Primary Care Provider Source Comments [facility] [employer],non-owned Affiliates and Associated Physician Practices is amultiple site organization consisting of ambulatory clinics and hospital sitesin [place], [place], [place] and [place]. This disclosure is being madepursuant to the Care Everywhere program and may not contain all information available regarding this patient. Last updated 17.[facility] [employer] [facility] Allergies Active Allergy Reactions Criticality Noted [...] naloxone HCl (NARCAN) 4 MG/0.1ML nasal spray [place] 1 spray into the nose as needed [...] migh t be different from the original. 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 Gender Identity Not on file Sexual Orientation [...] P24 AG PANEL Routine 03/10/2019 1:24 PM SPORTS STATISTICIAN Supervision of high risk in second trimester HEPATITIS C ANTIBODY Routine 11/11/2018 12:07 PM CDT Supervision of high risk , antepartum from Last 3 Months or Most Recently Relevant to Health Maintenance Results * HIV-1 HIV-2 ANTIBODY + HIV P24 AG PANEL (03/10/2019 1:24 PM SPORTS STATISTICIAN) Pathologist [facility] HIV1/2 Ab + P24 Ag Non Reactive Non Reactive 03/10/2019 2:57 PM SPORTS STATISTICIAN [facility] Blood BLOOD SPECIMEN / Unknown Venipuncture / Unknown 03/10/2019 1:24 PM SPORTS STATISTICIAN 03/10/2019 1:49 PM SPORTS STATISTICIAN Narrative [facility] - 03/10/2019 2:57 PM SPORTS STATISTICIAN No Laboratory evidence of HIV infection. us Ivana Thomas SYSTEMS ACCOUNTANT-HOME ECONOMICS TEACHER LAB - CHEMISTRY ORDERAB LES Final Result [facility] [address] [place] [address] * HEPATITIS C ANTIBODY (11/11/2018 12:07 PM CDT) HCV Antibody Screen Non Reactive Non Reactive 11/11/2018 1:55 PM CDT [facility] HCV S/C Ratio 0.19 0.00 - 0.79 11/11/2018 1:55 PM CDT [facility] Comment: Tutyvk-da-rksmat ratio (S/CO) <0.80: Non Reactive Blood BLOOD SPECIMEN / Unknown Venipuncture / Unknown 11/11/2018 12:07 PM CDT 11/11/2018 12:56 PM CDT Narrative [facility] - 11/11/2018 1:55 PM CDT Non Reactive - Antibodies to Hepatitis C virus (HCV) were not detected, result does not exclude early acute HCV infection. Helen Zurita SYSTEMS ACCOUNTANT-HOME ECONOMICS TEACHER LAB - CHEMISTRY ORDERA BLES Final Result Performing Organization Address City/State/[facility] Co de Phone Number [facility] [address] [place] [address] from Last 3 Months or Most Recently Relevant to Health Maintenance Insurance [facility] Advance Directives * Full Code (Latest Code [...] 11:00 AM 03/17/2019 7:31 PM Care Teams Manager Project Relationship Specialty Start Date End Date Mario Logan MD [address] [place] [address] PCP - General 05/24/19
--- OUTSIDE RECORDS SUMMARY | 2024-12-26 20:27 | XMS_ITS | Clinical Summary ---
Author Organization [facility] Address [address], [facility] [address] [place] [address] Phone Care Team Providers Care Pressure Vessel Inspector Name Role Phone DelisaMay N CORD TIRE BUILDER, C SOFTWARE ENGINEER Primary Care Provider [phone] Allergies Active Allergy Reactions Criticality Noted Date [...] Nurse Triage [facility] [address] [place] [phone] Wendie Hercules, CORD TIRE BUILDER, C SOFTWARE ENGINEER Appointment; Chest Pain 12/19/2024 10:31 AM CDT - 12/19/2024 1:03 PM CDT Emergency [facility] [address] [place] [address] Willis Lee, PAC Chest pain Discharge Disposition: Discharged to home or Selfcare 12/19/2024 Travel 12/05/2024 Results Follow-Up [facility] [address] [place] [address] Wendie Hercules, LUIS FELIPE, C SOFTWARE ENGINEER US THYROID, VITAMIN D, 25 HYDROXY TOTAL, VITAMIN B12, Additional followed-up results: 5 12/02/2024 10:49 AM CDT - 12/02/2024 11:59 PM CDT Hospital En[facility] Ultrasound [address] [place] [address] Wendie Hercules, CORD TIRE BUILDER, C SOFTWARE ENGINEER Discharge Disposition: Discharged to home or Selfcare 12/02/2024 Travel 11/21/2024 2:30 PM CDT Office Visit [facility] [address] [place] [address] Wendie Hercules, CORD TIRE BUILDER, C SOFTWARE ENGINEER Depression with anxiety (Primary Dx); At risk for sexually transmitted disease due to unprotected sex Discharge Disposition: Discharged to home or Selfcare 11/21/2024 Travel 11/17/2024 9:39 AM CDT - 11/17/2024 11:17 AM CDT Emergency [facility] [address] [place] [address] Hugh Palencia, DO Viral syndrome Discharge Disposition: Discharged to home or Selfcare 11/17/2024 Telephone [facility] [address] [place] [address] Oehl, Wendie Pizarro APRN, CNP 11/17/2024 Nurse Triage [facility] Central Call Center [address] [place] [address] Wendie Hercules APRN, CNP Breathing Problem 11/16/2024 2:15 PM CDT Office Visit [facility] [address] [place] [address] Óscar Doss APRN, ELVIA Chest discomfort (Primary Dx) Discharge Disposition: Discharged to home or Selfcare 11/16/2024 Documentation Only [facility] Mammography [address] [place] [address] Wendie Hercules APRN, CNP 11/15/2024 10:03 PM CDT - 11/16/2024 12:06 AM CDT Emergency [facility] Emergency [address] [place] [address] Billy Cagle MD Chest pain, unspecified type Discharge Disposition: Discharged to home or Selfcare 11/15/2024 Travel 11/11/2024 Telephone [facility] [address] [place] [address] Wendie Hercules APRN, ELVIA Need Order 10/21/2024 2:00 PM CDT Office Visit [facility] [address] [place] [address] Wendie Hercules APRN, ELVIA Encounter for preventative adult health care exam with abnormal findings (Primary Dx); History of methadone use; Anxiety and depression; Nodule of left lobe of thyroid gland; Vaginal pain; Encounter for screening mammogram for breast cancer Discharge Disposition: Discharged to home or Selfcare 10/21/2024 Travel 10/21/2024 Telephone [facility] Central Call Center [address] [place] [address] Provider, None New Patient from Last 3 [...] st Contact Info) Description 01/03/2025 2:30 PM HALL MONITOR Office Visit [facility] [place] [address] [place] [address] Delisa, Wendie N, CORD TIRE BUILDER, C SOFTWARE ENGINEER 2 [facility] [place] [address] [place] [address] Health Maintenance Due Date Last Done Comments [...] of4 resultswithin the time period is included. [facility] TROPONIN I, HIGH SENSITIVITY- OLIVA 2.9 <=14.0 ng/L 12/19/2024 1:10 PM CDT [facility] Comment: High-sensitivity troponin I results are reported in ng/L making the result appear to be 1,000 times higher than the contemporary troponin I value which is reported in ng/ml. Results from [facility]. Blood Venipuncture / Unknown 12/19/2024 12:33 PM CDT 12/19/2024 12:44 PM CDT us Willis Lee PAC CHEMISTRY ORDERABLES Final Result [facility] [address] [place] [address] * NT-proBNP (12/19/2024 10:44 AM CDT) [facility] NT PROBNP 177.3 <450.0 pg/mL 12/19/2024 11:17 AM CDT [facility] Comment: AGE pg/mL INTERPRETATION All <300 [...] Willis Lee PAC CHEMISTRY ORDERABLES Final Result [facility] [address] [place] [address] * (ABNORMAL) CBC with Auto Differential (12/19/2024 10:44 AM CDT) Only the most recent of4 resultswithin the time period is included. WBC 5.71 4.00 - 12.00 10(3)/mcL 12/19/2024 10:52 AM CDT [facility] RBC 4.01 3.80 - 5.30 10(6)/mcL 12/19/2024 10:52 AM CDT [facility] HEMOGLOBIN (HGB) 12.2 12.0 - 15.8 g/dL 12/19/2024 10:52 AM CDT [facility] HEMATOCRIT (HCT) 37.7 36.0 - 47.0 % 12/19/2024 10:52 AM CDT [facility] MCV 94.0 82.0 - 96.0 fL 12/19/2024 10:52 AM CDT [facility] MCH 30.4 26.0 - 34.0 pg 12/19/2024 10:52 AM CDT [facility] MCHC 32.4 31.0 - 36.0 g/dL 12/19/2024 10:52 AM CDT [facility] PLATELET COUNT 396 140 - 440 10(3)/mcL 12/19/2024 10:52 AM CDT [facility] RDW 12.7 11.8 - 15.5 % 12/19/2024 10:52 AM CDT [facility] MPV 9.5(L) 9.7 - 12.4 fL 12/19/2024 10:52 AM CDT [facility] NEUTROPHILS 70.2 47.0 - 73.0 % 12/19/2024 10:52 AM CDT [facility] LYMPHOCYTES 20.1 18.0 - 42.0 % 12/19/2024 10:52 AM CDT [facility] MONOCYTES 8.1 4.0 - 12.0 % 12/19/2024 10:52 AM CDT [facility] EOSINOPHILS 0.7 0.0 - 5.0 % 12/19/2024 10:52 AM CDT [facility] BASOPHILS 0.7 0.0 - 1.0 % 12/19/2024 10:52 AM CDT [facility] IMMATURE GRANULOCYTE 0.2 0.0 - 0.4 % 12/19/2024 10:52 AM CDT [facility] ABSOLUTE NEUTROPHILS 4.01 1.60 - 7.70 10(3)/[facility] 12/19/2024 10:52 AM CDT [facility] ABSOLUTE LYMPHOCYTES 1.15(L) 1.30 - 3.20 10(3)/[facility] 12/19/2024 10:52 AM CDT [facility] ABSOLUTE MONOCYTES 0.46 0.20 - 1.00 10(3)/[facility] 12/19/2024 10:52 AM CDT [facility] ABSOLUTE EOSINOPHIL 0.04 0.00 - 0.40 10(3)/[facility] 12/19/2024 10:52 AM CDT [facility] ABSOLUTE BASOPHILS 0.04 0.00 - 0.10 10(3)/[facility] 12/19/2024 10:52 AM CDT [facility] ABSOLUTE IMMATURE GRANULOCYTE 0.01 0.00 - 0.03 10 (3) mcL. 12/19/2024 10:52 AM CDT [facility] NRBC PER 100 WBC 0 12/20/19 10:[address] [facility] Blood Venipuncture / Unknown 12/19/2024 10:44 AM CDT 12/19/2024 10:50 AM CDT Willis Lee PAC HEMATOLOGY ORDERABLE S Final Result [facility] [address] [place] [address] * Magnesium (12/19/2024 10:44 AM CDT) Only the most recent of2 resultswithin the time period is included. MAGNESIUM 2.1 1.6 - 2.6 mg/dL 12/19/2024 11:13 AM CDT [facility] Blood Venipuncture / Unknown 12/19/2024 10:44 AM CDT 12/19/2024 10:50 AM CDT Willis Lee PAC CHEMISTRY ORDERABLES Final Result [facility] [address] [place] [address] * Ethyl Alcohol(Ethanol) [id number] (12/19/2024 10:44 AM CDT) ETHANOL <10 <10 mg/dL 12/19/2024 11:13 AM CDT [facility] Blood Venipuncture / Unknown 12/19/2024 10:44 AM CDT 12/19/2024 10:50 AM CDT Narrative [facility] - 12/19/2024 11:13 AM CDT FOR MEDICAL USE ONLY Willis Lee PAC CHEMISTRY ORDERABLES Final Result [facility] [address] [place] [address] * CMP (12/19/2024 10:44 AM CDT) Only the most recent of4 resultswithin the time period is included. SODIUM 140 136 - 145 mmol/L 12/19/2024 11:13 AM CDT [facility] POTASSIUM 4.0 3.5 - 5.1 mmol/L 12/19/2024 11:13 AM CDT [facility] CHLORIDE 104 98 - 107 mmol/L 12/19/2024 11:13 AM CDT [facility] CO2, VENOUS 26 22 - 30 mmol/L 12/19/2024 11:13 AM CDT [facility] ANION GAP 14.0 <18.0 mmol/L 12/19/2024 11:13 AM CDT [facility] GLUCOSE 88 70 - 99 mg/dL 12/19/2024 11:13 AM CDT [facility] BUN 9 5 - 18 mg/dL 12/19/2024 11:13 AM CDT [facility] CREATININE, BLOOD 0.74 0.60 - 1.00 mg/dL 12/19/2024 11:13 AM CDT [facility] BUN/CREATININE RATIO 12 12 - 20 ratio 12/19/2024 11:13 AM CDT [facility] TOTAL PROTEIN 7.4 6.0 - 8.0 g/dL 12/19/2024 11:13 AM CDT [facility] ALBUMIN 4.4 3.5 - 5.0 g/dL 12/19/2024 11:13 AM CDT [facility] A/G RATIO 1.5 1.0 - 2.2 12/19/2024 11:13 AM CDT [facility] CALCIUM 9.4 8.7 - 10.5 mg/dL 12/19/2024 11:13 AM CDT [facility] T BILI 0.5 0.2 - 1.2 mg/dL 12/19/2024 11:13 AM CDT [facility] SGOT (AST) 24 <43 U/L 12/19/2024 11:13 AM CDT [facility] SGPT (ALT) 17 <56 U/L 12/19/2024 11:13 AM CDT [facility] ALKALINE PHOSPHATASE 74 40 - 150 U/L 12/19/2024 11:13 AM CDT [facility] GFR, ESTIMATED >60 >=60 12/19/2024 11:13 AM CDT [facility] Comment: Creatinine Clearance is the preferred criteria for selecting drug dose adjustments in renally impaired patients. The GFR is provided as additional pertinent clinical information. GFR is reported in mL/min/1.73 sq m. Calculation based on the 2020 Chronic Kidney Disease Epidemiology Collaboration (CKD-EPI) equation refit without adjustment for race. GFR, EST. >60 >=60 11:13 AM CDT [facility] Comment: Creatinine Clearance is the preferred criteria for selecting drug dose adjustments in renally impaired patients. The GFR is provided as additional pertinent clinical information. GFR is reported in mL/min/1.73 sq m. Calculation based on the 2009 Chronic Kidney Disease Epidemiology Collaboration (CKD-EPI). GFR, EST. NONAFRICAN >60 >=60 12/19/2024 11:13 AM CDT [facility] Comment: Creatinine Clearance is the [...] Willis Lee PAC CHEMISTRY ORDERABLES Final Result [facility] [address] [place] [address] * EKG 12 LEAD (12/19/2024 10:36 AM CDT) Only the most recent of3 resultswithin the time period is included. Ventricular Rate 70 BPM EXTERNAL EKG Atrial Rate 70 BPM EXTERNAL EKG P-R Interval 118 ms EXTERNAL EKG QRS Duration 90 ms EXTERNAL EKG Q-T Duration 384 ms EXTERNAL EKG QTC CALCULATION 414 ms EXTERNAL EKG P [place] 63 degrees EXTERNAL EKG R [place] 60 degrees EXTERNAL EKG T [place] 52 degrees EXTERNAL EKG 12/19/2024 10:3 6 AM CDT Impressions EXTERNAL EKG - 12/19/2024 4:09 PM CDT Normal sinus rhythm Normal ECG When compared with ECG of 17-NOV-2024 09:47, No significant change was found Confirmed by Jn Nguyen ([id number]) on 12/19/2024 4:09:26 PM Narrative Procedure Note Jn Nguyen MD PhD - 12/19/2024 IMPRESSION: Normal sinus rhythm Normal ECG When compared with ECG of 17-NOV-2024 09:47, No significant change was found Confirmed by Jn Nguyen ([id number]) on 12/19/2024 4:09:26 PM us Billy Cagle MD IMG ECG ORDERABLES Final Result Performing Organization Address City/[facility] Co de Phone Number EXTERNAL EKG [...] DICTATING PHYSICIAN: Mickey Mccarty D.O. - [facility] US THYROID, 12/02/2024 11:09 AM [...] (2) with internal vascularity. Echogenicity: Hyperechoic (1). Oevopf-[id number]: no (0). Margins: Smooth (0). Echogenic foci: None (0). ACR TI-RADS Classification: TR 3 (3 points) Procedure Note Mickey Mccarty, DO - 12/03/2024 DICTATING PHYSICIAN: Mickey Mccarty D.O. - [facility] US THYROID, 12/02/2024 11:09 AM CLINICAL [...] solid (2) with internalvascularity. Echogenicity: Hyperechoic (1). Grlyxr-[id number]-Cfhz: no (0). Margins: Smooth (0). Echogenic foci: [...] 2017 [employer]. May N Delisa BRISCOE CNP [facility] US ORDERABLES Final R esult * VITAMIN D, 25 HYDROXY TOTAL (12/02/2024 10:47 AM CDT) VITAMIN D, 25 HYDROX 27.9 ng/mL 12/02/2024 12:19 PM CDT [facility] Blood Venipuncture / Unknown 12/02/2024 10:47 AM CDT 12/02/2024 11:12 AM CDT Narrative [facility] - 12/02/2024 12:19 PM CDT Published reference ranges for Vitamin D vary depending on time and place and method of testing, and on patient's age, sex, ethnicity and levels of other measured analytes such as parathormone, calcium and phosphorus. The result should be evaluated in conjunction with clinical findings and suspicions. [place] [employer] and [employer]ocrine Clinical Practice Guidelines: Status Vitamin D levels (ng/mL) Deficient <=20 At risk of inadequacy 21-29 Sufficient 30-100 Centers of Disease Control and Prevention Guidelines: Status Vitamin D levels (ng/mL) Deficient <13 At risk of inadequacy 13-19 Sufficient 20-50 Possibly harmful >50 References: [place] [employer], 2010 Dietary reference intakes for calcium and vitamin D. [place]: The National Academies Press. Betsy M, Ariadne N, Glen ZAMUDIO, et al., Evaluation, treatment, and prevention of Vitamin D deficiency: an Endocrinology Clinical Practice Guideline. JCEM 2011 96: 7 7445-8021. Kenan A, Desmond C, Tyra D, et al., Vitamin D Status: [place], 6529-5054, NCHS data brief, no. 59, MD [place]: National Center for Health Statistics. 2010. May N Delisa BRISCOE CNP CHEMISTRY ORDERABLES Adelaide l Result [facility] [address] [place] [address] * THYROID SCREEN WITH REFLEX (12/02/2024 10:47 AM CDT) TSH 1.382 0.300 - 5.000 mIU/L 12/02/2024 12:07 PM CDT [facility] Blood Venipuncture / Unknown 12/02/2024 10:47 AM CDT 12/02/2024 11:12 AM CDT us May N Delisa BRISCOE, C SOFTWARE ENGINEER CHEMISTRY ORDERABLES Adeliade l Result [facility] [address] [place] [address] * VITAMIN B12 (12/02/2024 10:47 AM CDT) VITAMIN B12 418 213 - 816 pg/mL 12/02/2024 12:19 PM CDT [facility] Blood Venipuncture / Unknown 12/02/2024 10:47 AM CDT 12/02/2024 11:12 AM CDT May N Delisa BRISCOE, C SOFTWARE ENGINEER CHEMISTRY ORDERABLES Adelaide l Result Performing Organization Address City/[facility]/ZIP Co de Phone Number [facility] [address] [place] [address] * THYROXINE (T4) FREE (12/02/2024 10:47 AM CDT) T4 FREE 0.8 0.7 - 1.9 ng/dL 12/02/2024 12:08 PM CDT [facility] Blood Venipuncture / Unknown 12/02/2024 10:47 AM CDT 12/02/2024 11:12 AM CDT us May N Delisa BRISCOE, C SOFTWARE ENGINEER CHEMISTRY ORDERABLES Adelaide l Result [facility] [address] [place] [address] * LIPID PANEL (12/02/2024 10:47 AM CDT) CHOLESTEROL 175 <200 mg/dL 12/02/2024 11:54 AM CDT [facility] TRIGLYCERIDES 127 <150 mg/dL 12/02/2024 11:54 AM CDT [facility] HDL CHOLESTEROL 55 >40 mg/dL 11:54 AM CDT [facility] LDL 95 <130 mg/dL 12/02/2024 11:54 AM CDT [facility] VLDL 25 10 - 50 mg/dL 12/02/2024 11:54 AM T [facility] CHOL/HDL RATIO 3.2 0.0 - 4.4 12/02/2024 11:54 AM CDT [facility] NON-HDL CHOLESTEROL 120 <130 mg/dL 12/02/2024 11:54 AM [facility] IS THE PATIENT REQUIRED TO BE FASTING? Yes 12/02/2024 11:54 AM [facility] HAS THE PATIENT BEEN FASTING? Yes 12/02/2024 11:54 AM [facility] Blood Venipuncture / Unknown 12/02/2024 10:47 AM CDT 12/02/2024 11:12 AM CDT Narrative [facility] - 12/02/2024 11:54 AM T [...] for LDL cholesterol. us May N Oehl CORD TIRE BUILDER, C SOFTWARE ENGINEER CHEMISTRY ORDERABLES Adelaide l Result Performing Organization Address City/[facility]/ZIP Co de Phone Number [facility] [address] [place] [address] * RSV,SARS-COV-2,INFLUENZA A&B BY PCR (11/17/2024 9:55 AM CDT) FLU A Negative Negative, Error 11/17/2024 11:19 AM CDT [facility] FLU B Negative Negative 11/17/2024 11:19 AM CDT [facility] RESP SYNC VIRUS Negative Negative 11:19 AM CDT [facility] SARSCOV2 NOT DETECTED (Reference Range for this test is Not Detected) 11/17/2024 11:19 AM CDT [facility] Comment:This test was perfor med by a Reverse Sulphate Tester PCR Method. Nasal NASOPHARYNGEAL STRUCTURE / Unknown Non-Phlebotomy Collection / Unknown 11/17/2024 9:55 AM CDT 11/17/2024 10:36 AM CDT us Hugh Palencia DO MICROBIOLOGY - GENERAL ORDERABLES Final Result Performing Organization Address [facility] Co de Phone Number [facility] [address] [place] [address] * Gold Top Tube (11/17/2024 9:45 AM CDT) Blood No Phlebotomy Charged / Unknown 11/17/2024 9:45 AM CDT 11/17/2024 10:38 AM CDT us Hugh Palencia DO CHEMISTRY ORDERABLES Fi nal Result Performing Organization Address City/[facility]/ZIP Co de Phone Number [facility] [address] [place] [address] * Blue Top Tube (11/17/2024 9:45 AM CDT) Blood No Phlebotomy Charged / Unknown 11/17/2024 9:45 AM CDT 11/17/2024 10:38 AM CDT us Hugh Candido Palencia DO HEMATOLOGY ORDERABLES F inal Result [facility] [address] [place] [address] * XR CHEST SINGLE VIEW PORTABLE (11/15/2024 [...] Result * Human Chorionic Gonadotropin Scrn Serum [id number] (11/15/2024 10:26 PM CDT) PREG-HCG Negative Negative 11/15/2024 11:28 PM CDT [facility] Blood Venipuncture / Unknown 11/15/2024 10:26 PM CDT 11/15/2024 11:06 PM CDT Billy Cagle MD CHEMISTRY ORDERABLES Adelaide l Result Performing Organization Address City/[facility]/ZIP Co de Phone Number [facility] [address] [place] [address] * Lipase (11/15/2024 10:26 PM CDT) LIPASE 19 8 - 78 U/L 11/15/2024 11:28 PM CDT [facility] Blood Venipuncture / Unknown 11/15/2024 10:26 PM CDT 11/15/2024 11:06 PM CDT Billy Cagle MD CHEMISTRY ORDERABLES Adelaide l Result Performing Organization Address City/[facility]/ZIP Co de Phone Number [facility] [address] [place] [address] from Last 3 Months Insurance MEDICAID [place] Care Teams Pressure Vessel Inspector Relationship Specialty Start Date End Date Delisa, May N, CORD TIRE BUILDER, C SOFTWARE ENGINEER [address] [address] PCP - General Advanced Practice Nurse 10/21/24
--- OUTSIDE RECORDS SUMMARY | 2024-12-26 20:27 | XMS_ITS | Encounter Summary ---
Author Organization [facility] Address [facility] [place] [address] Care Team Providers Care Solar Electric Installer Name Role Phone None, Provider Primary Care Provider Diana HerculesMay [facility] Primary Care Provider [phone] Encounter Details Date Type Department Care Team (Late st Contact Info) Description 07/31/2018 Abstract [facility] CONVERSION [address] [place] [address] , Generic Conversion, Social History Tobacco Use Types Packs/Day Years Used Date Smoking Tobacco: Never Assessed Comments Unknown Sex and Gender Information Value Date Recorded Sex Assigned at Female 10/17/2024 3:24 PM CDT Legal Sex Female 11:36 PM CDT Gender Identity Female 12/25/2024 10:22 PM DYE WEIGHER HELPER Sexual Orientation Straight 12/25/2024 10 :22 PM DYE WEIGHER HELPER documented as of this encounter Plan of Treatment Not on file documented as of this encounter Visit Diagnoses Not on filedocumented in this encounter Additional Health Concerns Infection Onset Date Last Indicated Resolved Time COVID-19 Rule Out 10/17/2024 10/17/2024 10/17/2024 5:06 PM CDT Respiratory Rule Out 10/18/2024 10/18/2024 025 1:50 PM CDT documented as of this encounter Care Teams Solar Electric Installer Relationship Specialty Start Date End Date None, Provider, PCP - General UNKNOWN PHYSICIAN SPECIALTY 07/13/23 DelisaMay, AIRPORT ELECTRICIAN [address] [place] [address] PCP - General Nurse Practitioner Family 12/23/24 documented as of this encounter
--- OUTSIDE RECORDS SUMMARY | 2024-12-26 20:27 | XMS_ITS | Clinical Summary ---
Author Organization [facility] Address [address] [place] [address] Care Team Providers Care Telex Operator Name Role Phone Delisa, May [facility] Primary Care Provider Allergies Active Allergy Reactions [...] Department Care Team Description 12/25/2024 10:14 PM MANAGER [employer] MARKETING - 12/26/2024 11:40 AM [facility] Emergency [facility] Emergency Room [address] [place] [address] Rl Virgen MD Bel, Lionel Pineda MD Chest Pain Discharge Disposition: Left Against Medical Advice 12/25/2024 7:26 PM MANAGER [employer] - 12/25/2024 9:07 PM [facility] Emergency [facility] Emergency Room [address] [place] [address] Rl Virgen MD Chest Pain Discharge Disposition: Home or Self Care (Routine Discharge) 12/25/2024 Travel 12/24/2024 3:59 PM CDT - 12/24/2024 8:20 PM CDT Emergency [facility] Emergency Room [address] [place] [address] Salo Dillon MD Palmer, Aunaly E, MD Chest Pain Discharge Disposition: Home or Self Care (Routine Discharge) 12/24/2024 Travel 12/23/2024 2:42 PM CDT - 12/23/2024 4:51 PM CDT Emergency [facility] Emergency Room [address] [place] [address] Salo Dillon MD Chest Pain Discharge Disposition: Home or Self Care (Routine Discharge) 12/23/2024 Travel 12/17/2024 11:53 PM CDT - 12/18/2024 2:43 AM CDT Emergency [facility] Emergency [address] [place] [address] Billy Mayfield DO Chest Pain Discharge Disposition: Home or Self Care (Routine Discharge) 12/17/2024 Travel 12/15/2024 2:10 AM CDT - 12/15/2024 3:41 AM CDT Emergency [facility] [address] [place] [address] [address] [place] [address] Jens Mendoza MD Abdominal Pain Discharge Disposition: Home or Self Care (Routine Discharge) 12/15/2024 Travel 12/14/2024 7:01 PM CDT - 12/14/2024 11:09 PM CDT Emergency [facility] Room [address] [place] [address] [place] [address] Jens Mendoza MD Chest Pain; Shortness Of Breath Discharge Disposition: Home or Self Care (Routine Discharge) 12/14/2024 Travel 10/18/2024 9:46 AM CDT - 10/18/2024 10:30 PM CDT Emergency [facility] [place] [address] Yovana Zamora MD Geldmacher, Kelly J, MD Medical Problem Discharge Disposition: [facility] 10/17/2024 2:59 PM CDT - 10/17/2024 8:00 PM CDT Emergency [facility] [address] [place] [address] [place] [address] Familia Carter MD Medical Problem Discharge Disposition: [...] e alcohol) [facility] Utilities Answer Date Recorded In the past 12 months has e [employer], gas, oil, or water [employer] threatened to shut off services in your [...] CDT Gender Identity Female 12/25/2024 10:22 PM MANAGER [employer]ODUCT MARKETING Sexual Orientation Straight 12/25/2024 10 :22 PM MANAGER [employer] MARKET[employer] Last Filed Vital Signs Vital Sign Reading Time Taken Comments Blood Pressure 91/55 12/26/2024 7:00 AM [employer]GER [employer] Pulse 57 12/26/2024 7:00 AM [employer] Temperature 36.5 C (97.7 F) 12/26/2024 7:00 AM MANAGER [employer]ING Respiratory Rate 18 12/25/2024 10:18 PM MANAGER [employer] MARKETING Oxygen Saturation 97% 12/26/2024 7:00 AM MANAGER [employer] MARK[employer]ING Inhaled Oxygen Concentration - - Weight 49.9 kg (110 lb) 12/25/2024 10:18 PM MANAGER [employer] MARKET[employer] Height 154.9 cm (5' 1) 12/25/2024 10:18 PM MANAGER [employer] MARKETING Body Mass Index 20.78 12/25/2024 10:18 PM MANAGER [employer] Plan of Treatment Health Maintenance Due Date [...] Comments TEST URINE STAT 12/25/2024 11:24 PM MANAGER [employer] MARKETING DRUG SCREEN RAPID STAT 12/25/2024 11: 24 PM MANAGER [employer] ECG 12-LEAD Routine 12/25/2024 7:28 PM MANAGER [employer] MARKETING CTA CHEST STAT 12/24/2024 5:42 PM CDT [...] (ABNORMAL) DRUG SCREEN RAPID (12/25/2024 11:24 PM MANAGER [employer] MARK[employer]ING) Only the most recent of3 resultswithin the time period is included. AMPHETAMINE (U) NONE DETECTED NONE DETECTED 12/25/2024 11:45 PM MANAGER PRODUCT MARKETING [facility] BARBITURATES SCREEN (U) NONE DETECTED NONE DETECTED 12/25/2024 11:45 PM [facility] BENZODIAZEPINES SCREEN (U) DETECTED(A) NONE DETECTED 12/25/2024 11:45 PM [facility] BUPRENORPHINE SCREEN (U) DETECTED(A) NONE DETECTED 12/25/2024 11:45 PM [facility] COCAINE METABOLITES (U) NONE DETECTED NONE DETECTED 12/25/2024 11:45 PM [facility] METHAMPHETAMINE (U) DETECTED(A) NONE DETECTED 12/25/2024 11:45 PM [facility] METHADONE (U) NONE DETECTED NONE DETECTED 12/25/2024 11:45 PM MANAGER PRODUCT MARKETING [facility] OPIATE SCREEN (U) NONE DETECTED NONE DETECTED 12/25/2024 11:45 PM MANAGER PRODUCT MARKETING [facility] OXYCODONE SCREEN (U) NONE DETECTED NONE DETECTED 12/25/2024 11:45 PM MANAGER [employer]ODUCT MARKETING [facility] PHENCYCLIDINE PCP (U) NONE DETECTED NONE DETECTED 12/25/2024 11:45 PM [facility] CANNABINOIDS SCREEN (U) NONE DETECTED NONE DETECTED 12/25/2024 11:45 PM MANAGER PRODUCT MARKETING [facility] TRICYCLIC ANTIDEPRESSANT SCREEN (U) NONE DETECTED NONE DETECTED 12/25/2024 11:45 PM MANAGER PRODUCT MARKETING [facility] Comment: NOTE: RESULTS OF [...] URINE SPECIMEN / Unknown 12/25/2024 11:24 PM MANAGER PRODUCT MARKETING us Rl Virgen MD URINE ORDERABLES Final Result Performing Organization Address [facility] Co de Phone Number [facility] [address] [place] [address], [place] [phone] * TEST URINE (12/25/2024 11:24 PM MANAGER [employer]ODUCT MARKETING) Only the most recent of2 resultswithin the time period is included. URINE HCG TEST NEG NEGATIVE 12/25/2024 11:41 PM MANAGER PRODUCT MARKETING [facility] Comment: VERY DILUTE URINE SPECIMENS MAY NOT CONTAIN HYDROPULPER LEVELS OF HCG. IF IS STILL SUSPECTED, A SERUM HCG TEST IS RECOMMENDED. URINE SPECIMEN FROM URETHRA / Unknown 12/25/2024 11:24 PM MANAGER PRODUCT MARKETING us Rl Virgen MD URINE ORDERABLES Final Result Performing Organization Address [facility] Co de Phone Number [facility] [address] [place] [address], [place] [phone] * ECG 12 lead (12/25/2024 7:28 PM MANAGER PRODUCT MARKETING) Only the most recent of7 resultswithin the time period is included. ECG QT 374 [facility] RAD ECG QTC 404 [facility] ([facility]) RAD 12/25/2024 7:28 PM MANAGER PRODUCT MARKETING Narrative [facility] RAD - 12/25/2024 7:36 PM MANAGER PRODUCT MARKETING [facility] Test Date: 2024-12-25 Pat Name: JJ SLATER Department: 85 Room: EXAM 505 Gender: Female Chef Manager: : 1980 Requested By: RL VIRGEN Order Number: [id number] Reading MD: Bubba Reyes Measurements Intervals [place] Rate: 70 P: 74 AR: 126 QRS: 69 QRSD: 97 T: 62 QT: 374 QTc: 404 Interpretive Statements SINUS RHYTHM Compared to ECG 12/24/2024 16:10:34 Sinus bradycardia no longer present [employer] MARKETING Procedure Note Bubba Reyes MD - 12/25/2024 [facility] Test Date: 2024-12-25 Pat Name: JJ SLATER Department: 85 Room: EXAM 505 Gender: Female Chef Manager: : 1980 Requested By: RL VIRGEN Order Number: [id number] Reading : Bubba Reyes Measurements Intervals [place] Rate: 70 P: 74 AR: 126 QRS: 69 QRSD: 97 T: 62 QT: 374 QTc: 404 Interpretive Statements SINUS RHYTHM Compared to ECG 12/24/2024 16:10:34 Sinus bradycardia no longer present [employer]ER [employer] MARKETING us Rl Virgen MD ECG ORDERABLES Final Result [facility] RAD * CTA CHEST (12/24/2024 5:42 PM CDT) Anatomical Region Laterality Modality Chest Computed Tomogra phy 12/24/2024 5:56 PM CDT Impressions 12/24/2024 6:02 PM CDT IMPRESSION: 1. Technically limited evaluation for pulmonary embolism. 2. Stable 9 mm lung nodule. Recommend continued surveillance as above. Referred By: Interpreted By: Everett Peterson MD, 12/24/2024 5:56 PM Narrative 12/24/2024 6:02 PM CDT [facility] [address] [place] [id number] Examination: CTA CHEST Clinical history: Chest pain [...] Procedure Note Everett Peterson MD - 12/24/2024 [facility] [address] [place] [id number] Examination: CTA CHEST Clinical history: Chest pain [...] 4:34 PM Narrative 12/24/2024 4:41 PM CDT [address] [place] [address] Examination: XR CHEST PORTABLE Exam time: 12/24/2024 4:14 PM Clinical history: Chest pain. Comparison: 12/23/2024. Technique: AP portable upright radiograph of the chest. Findings: Normal heart size. Normal distribution of the pulmonary vasculature. No focal parenchymal lung consolidation, pleural effusion, or pneumothorax. No acute osseous findings. Surgical clips noted in the upper abdomen. Procedure Note Juan Alberto Meier MD - 12/24/[address] [place] [address] Examination: XR CHEST PORTABLE Exam time: 12/24/2024 [...] LABORATORY Final Result [facility] [address] [place] [address], * (ABNORMAL) COMPREHENSIVE METABOLIC PANEL (12/24/2024 4:10 [...] - 108 MMOL/L 12/24/2024 4:35 PM CDT [facility] CO2 31.8 21 - 32 MMOL/L 12/24/2024 4:35 PM CDT [facility] CALCIUM S/P/B 8.5 8.5 - 10.1 MG/DL 12/24/2024 4:35 PM CDT [facility] BILIRUBIN TOTAL S/P/B 0.5 0.2 - 1.2 MG/DL 12/24/2024 4:35 PM CDT [facility] TOTAL PROTEIN S/P/B 6.4 6.4 - 8.2 G/DL 12/24/2024 4:35 PM CDT [facility] ALBUMIN S/P/B 3.4 3.4 - 5.0 G/DL 12/24/2024 4:35 PM CDT [facility] AST 11(L) 15 - 37 U/L 12/24/2024 4:35 PM T [facility] ALT 12(L) 14 - 55 U/L 12/24/2024 4:35 PM T [facility] ALKALINE PHOSPHATASE S/P/B 71 50 - 136 U/L 12/24/2024 4:35 PM T [facility] ANION GAP 4.2(L) 5 - 15 MMOL/L 12/24/2024 4:35 PM T [facility] BUN CREATININE RATIO 26.9(H) 6 - 26 12/24/2024 4:35 PM T [facility] A/G RATIO 1.1 1.0 - 2.0 RATIO 12/24/2024 4:35 PM [facility] GFR ESTIMATE >90 >90 ML/MIN/1.7 3 M2 12/24/2024 4:35 PM T [facility] Comment: NOTE: eGFR is not calculated for patients <18 years of age. This is an estimated GFR calculation using the new CKD EPI creatinine equation without race and so does not require a correction factor for race. This estimated GFR should not be used for calculating drug doses. 12/24/2024 4:10 PM CDT us Salo Dillon MD LABORATORY Final Result [facility] [address] [place] [address], * (ABNORMAL) CBC W/DIFF AUTOMATED (12/24/2024 4:10 [...] PLT MORPH. NORMAL 12/24/2024 4:23 PM CDT [facility] WBC MORPHOLOGY NORMAL [...] - 6.00 x10'3/uL 12/24/2024 4:23 PM CDT [facility] IMMATURE GRANS % 0.2 0.0 - 0.5 % 12/24/2024 4:23 PM CDT [facility] ABS. LYMPHOCYTES 1.52 0.80 - 4.70 x10'3/uL 12/24/2024 4:23 PM CDT [facility] 12/24/2024 4:10 PM CDT Salo Dillon MD LABORATORY Final Result [facility] [address] [place] [address], * TROPONIN, QUANT (12/24/2024 4:10 PM CDT) Only the most recent of4 resultswithin the time period is included. Pathologist [facility] TROPONIN I HIGH SENSITIVITY 6 0 - 50 ng/L 12/24/2024 4:38 PM CDT [facility] Comment: HIGH DOSES OF BIOTIN, TROPONIN-SPECIFIC AUTOANTIBODIES, AND ANTIBODY THERAPY CONTAINING HAMA MAY INTERFERE WITH THIS TEST RESULT. CORRELATION TO CLINICAL HISTORY AND PRESENTATION RECOMMENDED. 12/24/2024 4:10 PM CDT us Salo Dillon MD LABORATORY Final Result Performing Organization Address City/[facility]/ZIP Co de Phone Number [facility] [address] [place] [address], [place] [phone] * LIPASE (12/24/2024 4:10 PM CDT) Only the most recent of2 resultswithin the time period is included. LIPASE 63 16 - 77 UNITS/L 12/24/2024 4:35 PM CDT [facility] 12/24/2024 4:10 PM CDT us Salo Dillon MD LABORATORY Final Result Performing Organization Address [facility] de Phone Number [facility] [address] [place] [address], [place] [phone] * D-DIMER, QUANTITATIVE (12/18/2024 12:00 AM CDT) D-DIMER 271 0 - 500 ng{FEU}/mL 12/18/2024 1:02 AM CDT [facility] EXCLUSION STATEMENT 12/18/2024 1:02 AM CDT [facility] Comment: D-Dimer values less than [...] DO LABORATORY Final Result Performing Organization Address [facility]/ZIP Co de Phone Number [facility] [address] [place] [address], [phone] * HCG QUANT SERUM - CHORIONIC GONADOTROPIN () (12/18/2024 12:00 AM CDT) HCG QUANTITATIVE <1 MIU/ML 12/19/19 1:07 AM CDT [facility] Comment: <5 IS NEGATIVE 5-25 IS BORDERLINE >25 IS POSITIVE ASSAY PERFORMED BY CHEMILUMINESCENCE METHODOLOGY USING SIEMENS [employer] [facility]. PATIENT RESULTS DETERMINED BY ASSAYS USING DIFFERENT MANUFACTURERS FOR METHODS MAY NOT BE COMPARABLE. 12/18/2024 Emily Fung NP LABORATORY Final Result Performing Organization Address [facility] Co de Phone Number [facility] [address] [place] [address], [place] [phone] * CT HEAD WO CON (10/18/2024 8:19 PM CDT) Anatomical Region Laterality Modality Head Computed Tomogra phy 10/18/2024 8:20 PM CDT Impressions 10/18/2024 8:22 PM CDT IMPRESSION: No acute intracranial abnormalities identified. Referred By: Interpreted By: Gaurav Damon DO, 10/18/2024 8:20 PM Narrative 10/18/2024 8:22 PM CDT [address] [address] EXAMINATION: CT head without contrast HISTORY: Confusion. [...] Procedure Note Gaurav Damon DO - 10/18/2024 [place] [address] EXAMINATION: CT head without contrast HISTORY: Confusion. [...] CATCH 10/18/2024 4:30 PM CDT [facility] SPECIAL REQUESTS NO SPECIAL REQUEST 10/18/2024 4:30 PM CDT [facility] CULTURE RESULT POLYMICROBIAL GROWTH CONSISTENT WITH NORMAL GENITAL CAM. SUSCEPTIBILITIES NOT ROUTINELY PERFORMED. 10/19/2024 8:45 AM CDT [facility] URINE SPECIMEN OBTAINED BY CLEAN CATCH PROCEDURE / Unknown 10/18/2024 4:30 PM CDT 10/18/2024 8:10 PM CDT us Yovana Zamora MD MICROBIOLOGY - GENERAL ORDERA BLES Final Result [facility] [address] [place] [address], [place] [phone] * RESPIRATORY PCR PANEL 2 (10/18/2024 12:33 PM CDT) ADENOVIRUS PCR (RESP) NOT DETECTED NOT DETECTED 10/18/2024 1:50 PM CDT [facility] CORONAVIRUS 229E PCR (RESP) NOT DETECTED NOT DETECTED 10/18/2024 1:50 PM CDT [facility] CORONAVIRUS HKU1 PCR (RESP) NOT DETECTED NOT DETECTED 10/18/2024 1:50 PM CDT [facility] CORONAVIRUS NL63 PCR (RESP) NOT DETECTED NOT DETECTED 10/18/2024 1:50 PM CDT [facility] CORONAVIRUS OC43 PCR (RESP) NOT DETECTED NOT DETECTED 10/18/2024 1:50 PM CDT [facility] METAPNEUMOVIRUS PCR (RESP) NOT DETECTED NOT DETECTED 10/18/2024 1:50 PM CDT [facility] RHINOVIRUS/ENTEROV IRUS PCR (RESP) NOT DETECTED NOT DETECTED 10/18/2024 1:50 PM CDT [facility] INFLUENZA A PCR (RESP) NOT DETECTED NOT DETECTED 10/18/2024 1:50 PM CDT [facility] INFLUENZA B PCR (RESP) NOT DETECTED NOT DETECTED 10/18/2024 1:50 PM CDT [facility] PARAINFLUENZA 1 PCR (RESP) NOT DETECTED NOT DETECTED 10/18/2024 1:50 PM CDT [facility] PARAINFLUENZA 2 PCR (RESP) NOT DETECTED NOT DETECTED 10/18/2024 1:50 PM CDT [facility] PARAINFLUENZA 3 PCR (RESP) NOT DETECTED NOT DETECTED 10/18/2024 1:50 PM CDT [facility] PARAINFLUENZA 4 PCR (RESP) NOT DETECTED NOT DETECTED 10/18/2024 1:50 PM CDT [facility] RSV PCR (RESP) NOT DETECTED NOT DETECTED 10/18/2024 1:50 PM CDT [facility] B PARAPERTUSIS PCR (RESP) NOT DETECTED NOT DETECTED 10/18/2024 1:50 PM CDT [facility] BORDETELLA PERTUSSIS PCR (RESP) NOT DETECTED NOT DETECTED 10/18/2024 1:50 PM CDT [facility] CHLAMYDOPHILA PNEUMONIAE PCR (RESP) NOT DETECTED NOT DETECTED 10/18/2024 1:50 PM CDT [facility] MYCOPLASMA PNEUMONIAE PCR (RESP) NOT DETECTED NOT DETECTED 10/18/2024 1:50 PM CDT [facility] CORONAVIRUS SARS COV 2 PCR (RESP) NOT DETECTED NOT DETECTED 10/18/2024 1:50 PM CDT [facility] NASOPHARYNGEAL SWAB / Unknown 10/18/2024 12:33 PM CDT us Yovana Zamora MD MICROBIOLOGY - GENERAL ORDERA BLES Final Result [facility] [address] [place] [address], [place] [phone] * (ABNORMAL) URINALYSIS, AUTO, COMPLETE (10/18/2024 11:00 AM CDT) SPECIMEN TYPE URINE CLEAN CATCH 10/18/2024 11:01 AM CDT [facility] COLOR (U) DARK BROWN 10/18/2024 11:23 AM CDT [facility] TRANSPARENCY TURBID 10/18/2024 11:23 AM T [facility] SPECIFIC GRAVITY (U) 1.034(H) 1.001 - 1.030 10/18/2024 11:23 AM CDT [facility] U PH 5.5 5.0 - 9.0 10/18/2024 11:23 AM T [facility] LEUKOCYTES (U) 250(A) NEGATIVE 10/18/2024 11:23 AM T [facility] NITRITES NEGATIVE NEGATIVE 10/18/2024 11:23 AM T [facility] PROTEIN RANDOM (U) 100(H) <30 MG/DL 10/18/2024 11:23 AM T [facility] GLUCOSE (U) NORMAL NORMAL MG/DL 10/18/2024 11:23 AM T [facility] KETONES MG/DL (U) 60(A) NEGATIVE MG/DL 10/18/2024 11:23 AM T [facility] UROBILINOGEN NORMAL NORMAL MG/DL 10/18/2024 11:23 AM T [facility] BILIRUBIN (U) NEGATIVE NEGATIVE MG/DL 10/18/2024 11:23 AM T [facility] BLOOD (U) 3+(A) NEGATIVE 10/18/2024 11:23 AM T [facility] MUCUS MANY /LPF 10/18/2024 11:23 AM T [facility] WBC/HPF >100(H) <6 /HPF 10/18/2024 11:23 AM CDT [facility] RBC/HPF >100(H) <6 /HPF 10/18/2024 11:23 AM CDT [facility] SQUAMOUS EPITHELIALS MODERATE /HPF 10/18/2024 11:23 AM CDT [facility] URINE SPECIMEN OBTAINED BY CLEAN CATCH PROCEDURE / Unknown 10/18/2024 11:00 AM CDT us Yovana Zamora MD URINE ORDERABLES Final Result Performing Organization Address City/[facility]/ZIP Co de Phone Number [facility] [address] [place] [address], [place] [phone] * (ABNORMAL) MAGNESIUM (10/18/2024 10:45 AM CDT) MAGNESIUM 2.5(H) 1.8 - 2.4 MG/DL 10/18/2024 12:06 PM CDT [facility] 10/18/2024 10:4 5 AM CDT Yovana Zamora MD LABORATORY Final Result Performing Organization Address City/[facility]/ZIP Co de Phone Number [facility] [address] [place] [address], [place] [phone] * (ABNORMAL) SALICYLATE (10/18/2024 10:45 AM CDT) SALICYLATES 2.0(L) 2.8 - 20.0 MG/DL 10/18/2024 11:14 AM CDT [facility] Comment: THERAPEUTIC: 2.8-20.0 Toxic Level: >=30 10/18/2024 10:4 5 AM CDT Yovana Zamora MD LABORATORY Final Result Performing Organization Address City/[facility]/ZIP Co de Phone Number [facility] [address] [place] [address], * CK (CPK) (10/18/2024 10:45 AM CDT) CPK 88 21 - 215 U/L 10/18/2024 12:06 PM CDT [facility] 10/18/2024 10:4 5 AM CDT Yovana Zamora MD LABORATORY Final Result Performing Organization Address [facility] Co de Phone Number [facility] [address] [place] [address], * THYROID STIM HORMONE, TSH (10/18/2024 10:17 AM CDT) TSH 1.380 0.358 - 3.74 uIU/ML 10/18/2024 11:12 AM CDT [facility] Comment: HIGH DOSES OF BIOTIN MAY INTERFERE WITH THIS TEST RESULT. CORRELATION TO CLINICAL HISTORY AND PRESENTATION RECOMMENDED. 10/18/2024 10:1 7 AM CDT Yovana Zamora MD LABORATORY Final Result Performing Organization Address City/[facility]/ZIP Co de Phone Number [facility] [address] [place] [address], * ETHANOL (10/18/2024 10:17 AM CDT) Only the most recent of2 resultswithin the time period is included. ALCOHOL S/P/B <0.003 <0.003 G/DL 10/18/2024 11:12 AM CDT [facility] 10/18/2024 10:1 7 AM CDT Yovana Zamora MD LABORATORY Final Result Performing Organization Address [facility] Co de Phone Number [facility] [address] [place] [address], [place] [phone] * (ABNORMAL) ACETAMINOPHEN (10/18/2024 10:17 AM CDT) ACETAMINOPHEN S/P/B <2.0(L) 10.0 - 30.0 MCG/ML 10/18/2024 11:12 AM CDT [facility] Comment: THERAPEUTIC: 10-30 TOXIC: >200 10/18/2024 10:1 7 AM CDT Yovana Zamora MD LABORATORY Final Result Performing Organization Address [facility] de Phone Number [facility] [address] [place] [address], [place] [phone] * (ABNORMAL) BASIC METABOLIC PANEL (10/17/2024 4:12 PM CDT) SODIUM S/P/B 140 136 - 145 MMOL/L 10/17/2024 5:06 PM CDT [facility] POTASSIUM S/P/B 3.5 3.5 - 5.1 MMOL/L 10/17/2024 5:06 PM CDT [facility] CHLORIDE S/P/B 103 98 - 107 MMOL/L 10/17/2024 5:06 PM CDT [facility] CO2 27.0 21.0 - 32.0 MMOL/L 10/17/2024 5:06 PM CDT [facility] GLUCOSE 98 70 - 99 MG/DL 10/17/2024 5:06 PM CDT [facility] Comment: FASTING GLUCOSE 100 TO 125 MG/DL IS CONSISTENT WITH IMPAIRED FASTING GLUCOSE. FASTING GLUCOSE >125 MG/DL IS CONSISTENT WITH DIABETES. RANDOM GLUCOSE >200 MG/DL WITH HYPERGLYCEMIC SYMPTOMS IS CONSISTENT WITH DIABETES. PER ADA GUIDELINES BUN 18 6 - 24 MG/DL 10/17/2024 5:06 PM CDT [facility] CREATININE S/P/B 1.18(H) 0.55 - 1.02 MG/DL 10/17/2024 5:06 PM CDT [facility] CALCIUM S/P/B 10.0 8.4 - 10.5 MG/DL 10/17/2024 5:06 PM CDT [facility] ANION GAP 10.0 5.0 - 15.0 MMOL/L 10/17/2024 5:06 PM CDT [facility] OSMOLALITY (CALC) 292 MOSM/KG 025 5:06 PM T [facility] Comment:REFERENCE RANGE NOT ESTABLISHED GFR ESTIMATE 59(L) >89 ML/MIN/1. 73 M2 10/17/2024 5:06 PM CDT [facility] GFR NOTES GFR REFERENCE S: 10/17/2024 5:06 PM T [facility] Comment: THE ESTIMATED [...] Familia Carter MD LABORATORY Final Result [facility] [address] [place] [address], * CORONAVIRUS (COVID-19) ANTIGEN (10/17/2024 4:05 PM CDT) Pathologist [facility] CORONAVIRUS ANTIGEN IA NEGATIVE NEGATIVE 10/17/2024 5:06 PM CDT [facility] Comment: NEGATIVE RESULTS DO NOT [...] TYPE NASAL 10/17/2024 4:43 PM CDT [facility] NASAL NASAL STRUCTURE / Unknown 10/17/2024 4:05 PM CDT Familia Carter MD MICROBIOLOGY - GENERAL ORDERAB LES Final Result [facility] [address] [place] [address], * HEPATITIS PANEL,ACUTE (10/13/2023 3:24 AM CDT) [facility] HEPATITIS B SURFACE AG NON-REACT VARGHESE NON-REACT VARGHESE 10/13/2023 1:41 PM CDT [facility] Comment:HBsAg NOT DETECTED. HEP B CORE IGM NON-REACT VARGHESE NON-REACT VARGHESE 10/13/2023 1:41 PM CDT [facility] Comment: IgM ANTI HBc NOT DETECTED. DOES NOT EXCLUDE THE POSSIBILITY OF EXPOSURE TO OR INFECTION WITH HBV. NO RETEST REQUIRED. HIGH DOSES OF BIOTIN MAY INTERFERE WITH THIS TEST RESULT. CORRELATION TO CLINICAL HISTORY AND PRESENTATION RECOMMENDED. HAV IGM NON-REACT VARGHESE NON-REACT VARGHESE 10/13/2023 1:41 PM CDT [facility] Comment: IgM ANTI HAV NOT DETECTED. DOES NOT EXCLUDE THE POSSIBILITY OF EXPOSURE TO OR INFECTION WITH HAV. LEVELS OF IgM ANTI HAV MAY BE BELOW THE CUTOFF IN EARLY INFECTION. HEPATITIS C AB NON-REACT VARGHESE NON-REACT VARGHESE 10/13/2023 1:42 PM CDT [facility] Comment: ANTIBODIES TO HCV NOT DETECTED. DOES NOT EXCLUDE THE POSSIBILITY OF EXPOSURE TO HCV. 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
--- NOTE | 2024-12-26 20:35 | PC.NURSE ---
RN TO PT ROOM TO CHECK PATIENT IN. PT AWAKE AND ALERT, STANDING IN ED 5 STATING SHE JUST HAD ANXIETY AND WISHES TO LEAVE. RN OBTAINED PT VS PRIOR TO PATIENT LEAVING DEPT. PT AMBULATED WITH A STEADY GAIT WHILE EXITING. RN OFFERED PATIENT TO STAY FOR FURTHER EXAMINATION BY ERP HOWEVER PT REFUSED AND EXITED BEFORE PROVIDER COULD PROVIDE ASSESSMENT. PT REFUSED PROTOCOL EKG PLACED PER RN.
== END 2024-12-26 20:36 | disposition left against medical advice (07) ==
PROVIDERS: Emergency Provider Emergency Medicine
DX: R07.81 Pleurodynia (principal)
CPT/HCPCS: 99199

== ENCOUNTER 2025-01-14 06:05 | Emergency (ER) | payer OTHER, SELFPAY ==
--- OUTSIDE RECORDS SUMMARY | 2024-09-28 04:40 | XMS_ITS ---
Author Organization [facility] Address [address] [place] [address] Care Team Providers Care Brake Liner Name Role Phone Alana Epps Primary Care Provider [phone] Ana Verma [phone] REASON FOR VISIT new patient Social History Sex Assigned At : Social History Observation Description Sex Assigned At Female Encounters Encounter Location Date Provider Diagnosis [facility] [address] [place] [address] 09/28/2024 Ana Verma Plan Of Treatment Next Appt Details Provider Name:Alana patino, 01/24/2025 09:00:00 AM, [address], [place], [address], Progress Notes * Jaycee ROUSEDOB:1980 (44 yo F)Acc No.[id number]:09/28/2024 UNLOCKED PROGRESS NOTE Patient: Jaycee AYALA Provider: Peg Verma, MSN, ALUMINUM SIDING APPLICATOR, PMHNP-BC :1980 A ge:44 Y S ex:Female Date:09/28/2024 Address[address], [facility] [place] Pcp:Alana Epps Structured Data:Is there a n henny you would prefer we call you? (Nombre que prefiere usar) : No Subjective: * Chief Complaints: * 1 . New patient. * Medical History: Objective: * Vitals: Assessment: Plan: * Treatment: * * Electronic signature of Anton Verma on 01/14/2025 at 06:56 AM SUPERVISOR TRUST ACCOUNTS Sign off status: Pending * Provider: Peg Verma, MSN, ALUMINUM SIDING APPLICATOR, PMHNP-BC Date: 0 09/28/2024 Generated for Printing/Faxing/eTransmitting on: 1 03/16/2024 06:56 AM SUPERVISOR TRUST ACCOUNTS
--- OUTSIDE RECORDS SUMMARY | 2024-09-29 03:20 | XMS_ITS ---
Author Organization [facility] Address [address] [place] [address] Care Team Providers Care Prescription Benefit Specialist Name Role Phone Alana Epps Primary Care Provider Leandro Harris [phone] REASON FOR VISIT new patient Social History Sex Assigned At : Social History Observation Description Sex Assigned At Female Encounters Encounter Location Date Provider Diagnosis [address] [place] [address] 09/29/2024 Leandro Harris Plan Of Treatment Next Appt Details Provider Name:Alana patino, 01/24/2025 09:00:00 AM, [address], [place], [address], Progress Notes * Jaycee ROUSEDOB:1980 (44 yo F)Acc No.[id number]:09/29/2024 UNLOCKED PROGRESS NOTE Patient: Jaycee AYALA Provider: Sasha Harris DNP, PMHNP-BC :1980 A ge:44 Y S ex:Female Date:09/29/2024 [facility] [facility] Pcp:Alana Epps Structured Data:Is there a n henny you would prefer we call you? (Nombre que prefiere usar) : No Subjective: * Chief Complaints: * 1 . New patient. * Medical History: Objective: * Vitals: Assessment: Plan: * Treatment: * * Electronic signature of Kanu Harris , NETWORK SYSTEMS ENGINEER, [id number] on 01/14/2025 at 06:56 AM WAGON DRIVER Sign off status: Pending * Provider: Sasha Harris DNP, PMHNP- Date: 0 09/29/2024 Generated for Roland felder/Karina/Debbiesmtequila on: 1 03/16/2024 06:56 AM WAGON DRIVER
--- OUTSIDE RECORDS SUMMARY | 2024-10-06 02:20 | XMS_ITS ---
Author Organization [facility] Address [address] [place] [address] Care Team Providers Care Geospatial Technician Name Role Phone Alana Epps Primary Care Provider [phone] REASON FOR VISIT 1 week f/u Social History Sex Assigned At : Social History Observation Description Sex Assigned At Female Encounters Encounter Location Date Provider Diagnosis [facility] [address] [place] [address] 10/06/2024 Alana Epps Plan Of Treatment Next Appt Details Provider Name:Alana patino, 01/24/2025 09:00:00 AM, [address], [place], [address], Progress Notes * Jaycee ROUSEDOB:1980 (44 yo F)Acc No.[id number]:10/06/2024 UNLOCKED PROGRESS NOTE Patient: Jaycee YAALA Provider: Sasha Epps, MSN, [employer] SCOUT, TECHNICAL ASSOCIATE-C :1980 A ge:44 Y S ex:Female Date:10/06/2024 Address:[address], [facility] Structured Data:Is there a n henny you would prefer we call you? (Nombre que prefiere usar) : No Subjective: * Chief Complaints: * 1 . 1 week f/u. * Medical History: Objective: * Vitals: Assessment: Plan: * Treatment: * Care Plan Details* * Electronic signature of Guera Epps APRN, [id number] on 01/14/2025 at 06:56 AM SPACE AND MISSILE OPERATIONS SPACELIFT Sign off status: Pending * Provider: Sasha Epps, ALCON, [employer] SCOUT, TECHNICAL ASSOCIATE-C Date: 0 10/06/2024 Generated for Roland felder/Karina/Sunny on: 1 03/16/2024 06:56 AM SPACE AND MISSILE OPERATIONS SPACELIFT
--- OUTSIDE RECORDS SUMMARY | 2024-12-28 08:00 | XMS_ITS ---
Author Organization [facility] Address [address] [place] [address] Care Team Providers Care Microstrategy Developer Name Role Phone Alana Epps Primary Care Provider [phone] Evelyn Wilcox [phone] REASON FOR VISIT CRU Admit Eval Social History Sex Assigned At : Social History Observation Description Sex Assigned At Female Encounters Encounter Location Date Provider Diagnosis [address] [place] [address] 12/28/2024 Evelyn Wilcox Plan Of Treatment Next Appt Details Provider Name:Alana patino, 01/24/2025 09:00:00 AM, [address], [place], [address], Progress Notes * Jaycee ROUSEDOB:1980 (44 yo F)Acc No.[id number]:12/28/2024 UNLOCKED PROGRESS NOTE Patient: Jaycee AYALA Provider: Miriam Wilcox APN :1980 A ge:44 Y S ex:Female Date:12/28/2024 [facility] [facility] Pcp:Alana Epps Structured Data:Is there a n henny you would prefer we call you? (Nombre que prefiere usar) : No Subjective: * Chief Complaints: * 1 . CRU Admit Eval. * Medical History: Objective: * Vitals: Assessment: Plan: * Treatment: * * Electronic signature of Evelyn Wilcox on 01/14/2025 at 06:56 AM CREW DISPATCHER Sign off status: Pending * Provider: Miriam Wilcox APN Date: 02/28/2024 Generated for Roland Velasco/Sunny on: 03/16/2024 06:56 AM CREW DISPATCHER
[2025-01-14 06:05] VITALS: BP 137/73; PULSE 75; RESP 16; TEMP 35.9; O2SAT 100
--- NOTE | 2025-01-14 06:50 | PC.NURSE ---
This RN was asked to come in and be a witness when speaking with patient. Patient stated that she hasn't been here to get any scans or any imaging within the last year, medical record shows otherwise. Patient stated that she feels like she has been drugged. When she eats or drinks, her stomach feels bubbly. ERP inquiring about what was going on with her, patient yelled at ERP and RN, stating if we werent going to do anything for her, then she was just gonna leave. Patient was educated on process, patient rolled her eyes, and stated that her sister stole her identity and created all these cases under her name. Patient was then asked if she wanted to get the police involved, patient yelled and stated that she has already done that but she wants medication to help her pain. Patient was further educated on plan of care, which she refused, and stated that she was leaving. Patient then put her coat on and stated f this place, I'm leaving and going to a hospital that will help. Patient was educated on leaving AMA. Patient stated that she didnt care and refused to sign any paper work.
--- OUTSIDE RECORDS SUMMARY | 2025-01-14 06:56 | XMS_ITS | Clinical Summary ---
Author Organization [facility] Address [address], [facility] [address] [place] [address] Phone Care Team Providers Care Mental Health Tech Name Role Phone DelisaMay N TELE MARKETING EXECUTIVE, HEALTH AND SAFETY MANAGER Primary Care Provider [phone] Allergies Active Allergy Reactions Criticality Noted Date [...] Nurse Triage [facility] [address] [place] [id number] Wendie Hercules, TELE MARKETING EXECUTIVE, HEALTH AND SAFETY MANAGER Appointment; Chest Pain 12/19/2024 10:31 AM CDT - 12/19/2024 1:03 PM CDT Emergency [facility] Emergency [address] [place] [address] Willis Lee, PAC Chest pain Discharge Disposition: Discharged to home or Selfcare 12/19/2024 Travel 12/05/2024 Results Follow-Up [facility] [address] [place] [address] Wendie Hercules, LUIS FELIPE, HEALTH AND SAFETY MANAGER US THYROID, VITAMIN D, 25 HYDROXY TOTAL, VITAMIN B12, Additional followed-up results: 5 12/02/2024 10:49 AM CDT - 12/02/2024 11:59 PM CDT Hospital Encounter [facility] Ultrasound [address] [place] [address] Wendie Hercules, TELE MARKETING EXECUTIVE, HEALTH AND SAFETY MANAGER Discharge Disposition: Discharged to home or Selfcare 12/02/2024 Travel 11/21/2024 2:30 PM CDT Office Visit [facility] [address] [place] [address] Wendie Hercules, TELE MARKETING EXECUTIVE, HEALTH AND SAFETY MANAGER Depression with anxiety (Primary Dx); At risk for sexually transmitted disease due to unprotected sex Discharge Disposition: Discharged to home or Selfcare 11/21/2024 Travel 11/17/2024 9:39 AM CDT - 11/17/2024 11:17 AM CDT Emergency [facility] Emergency [address] [place] [address] Hugh Palencia, DO Viral syndrome Discharge Disposition: Discharged to home or Selfcare 11/17/2024 Telephone [facility] [address] [place] [address] Oehl, Wendie Pizarro APRN, CNP 11/17/2024 Nurse Triage [facility] [address] [place] [address] Wendie Hercules APRN, CNP Breathing Problem 11/16/2024 2:15 PM CDT Office Visit [facility] [address] [place] [address] Óscar Doss APRN, ELVIA Chest discomfort (Primary Dx) Discharge Disposition: Discharged to home or Selfcare 11/16/2024 Documentation Only [facility] Mammography [address] [place] [address] Wendie Hercules APRN, CNP 11/15/2024 10:03 PM CDT - 11/16/2024 12:06 AM CDT Emergency [facility] Emergency [address] [place] [address] Billy Cagle MD Chest pain, unspecified type Discharge Disposition: Discharged to home or Selfcare 11/15/2024 Travel 11/11/2024 Telephone [facility] [address] [place] [address] Wendie Hercules APRN, ELVIA Need Order 10/21/2024 2:00 PM CDT Office Visit [facility] [address] [place] [address] Wendie Hercules APRN, ELVIA Encounter for preventative adult health care exam with abnormal findings (Primary Dx); History of methadone use; Anxiety and depression; Nodule of left lobe of thyroid gland; Vaginal pain; Encounter for screening mammogram for breast cancer Discharge Disposition: Discharged to home or Selfcare 10/21/2024 Travel 10/21/2024 Telephone [facility] [address] [place] [address] Provider, None New Patient from Last 3 [...] 12/19/2024 10:37 AM CDT Plan of Treatment Health Maintenance Due Date Last Done Comments Mammogram 1982 Varicella Immunization (1 of 2 - 13+ 2-dose series) 1995 Pap Smear 2003 Human Papillomavirus (HPV) Immunization [...] Name Priority Date/Time Associated Diagnosis Comments XR - CHEST 12/23/2024 12:00 AM CDT TROPONIN I, HIGH SENSITIVITY (HSTRP) [...] from Last 3 Months Results * XR - CHEST (12/23/2024 12:00 AM CDT) 12/23/2024 Provider Scan IMG DIAGNOSTIC ORDERABLES Final Result Performing Organization Address City/[facility] Co de Phone Number SCAN * TROPONIN I, HIGH SENSITIVITY (HSTRP) (12/19/2024 12:33 PM CDT) Only the most recent of4 resultswithin the time period is included. TROPONIN I, HIGH SENSITIVITY- OLIVA 2.9 <=14.0 ng/L 12/19/2024 1:10 PM CDT [facility] Comment: High-sensitivity troponin I results are reported in ng/L making the result appear to be 1,000 times higher than the contemporary troponin I value which is reported in ng/ml. Results from [facility]. Blood Venipuncture / Unknown 12/19/2024 12:33 PM CDT 12/19/2024 12:44 PM CDT Willis Lee PAC CHEMISTRY ORDERABLES Final Result Performing Organization Address City/[facility] de Phone Number [facility] [address] [place] [address] * NT-proBNP (12/19/2024 10:44 AM CDT) NT PROBNP 177.3 <450.0 pg/mL 12/19/2024 11:17 AM CDT [facility] Comment: AGE pg/mL INTERPRETATION All <300 [...] [facility] [address] [place] [address] * (ABNORMAL) CBC with Auto Differential (12/19/2024 10:44 AM CDT) Only the most recent of4 resultswithin the time period is included. WBC 5.71 4.00 - 12.00 10(3)/mcL 12/19/2024 10:[address] [facility] RBC 4.01 3.80 - 5.30 10(6)/mcL 12/19/2024 10:52 AM CDT [facility] HEMOGLOBIN (HGB) 12.2 12.0 - 15.8 g/dL 12/19/2024 10:52 AM CDT [facility] HEMATOCRIT (HCT) 37.7 36.0 - 47.0 % 12/19/2024 10:[address] [facility] MCV 94.0 82.0 - 96.0 fL 12/19/2024 10:52 AM CDT [facility] MCH 30.4 26.0 - 34.0 pg 12/19/2024 10:52 AM CDT [facility] MCHC 32.4 31.0 - 36.0 g/dL 12/19/2024 10:52 AM CDT [facility] PLATELET COUNT 396 140 - 440 10(3)/mcL 12/19/2024 10:52 AM CDT [facility] RDW 12.7 11.8 - 15.5 % 12/19/2024 10:52 AM CDT [facility] MPV 9.5(L) 9.7 - 12.4 fL 12/19/2024 10:52 AM CDT [facility] NEUTROPHILS 70.2 47.0 - 73.0 % 12/19/2024 10:52 AM CDT [facility] LYMPHOCYTES 20.1 18.0 - 42.0 % 12/19/2024 10:52 AM CDT [facility] MONOCYTES 8.1 4.0 - 12.0 % 12/19/2024 10:52 AM CDT [facility] EOSINOPHILS 0.7 0.0 - 5.0 % 12/19/2024 10:52 AM CDT [facility] BASOPHILS 0.7 0.0 - 1.0 % 12/19/2024 10:52 AM CDT [facility] IMMATURE GRANULOCYTE 0.2 0.0 - 0.4 % 12/19/2024 10:52 AM CDT [facility] ABSOLUTE NEUTROPHILS 4.01 1.60 - 7.70 10(3)/[facility] 12/19/2024 10:52 AM CDT [facility] ABSOLUTE LYMPHOCYTES 1.15(L) 1.30 - 3.20 10(3)/[facility] 12/19/2024 10:52 AM CDT [facility] ABSOLUTE MONOCYTES 0.46 0.20 - 1.00 10(3)/[facility] 12/19/2024 10:52 AM CDT [facility] ABSOLUTE EOSINOPHIL 0.04 0.00 - 0.40 10(3)/[facility] 12/19/2024 10:52 AM CDT [facility] ABSOLUTE BASOPHILS 0.04 0.00 - 0.10 10(3)/[facility] 12/19/2024 10:52 AM CDT [facility] ABSOLUTE IMMATURE GRANULOCYTE 0.01 0.00 - 0.03 10 (3) mcL. 12/19/2024 10:52 AM CDT [facility] NRBC PER 100 WBC 0 12/20/19 10:52 AM CDT [facility] Blood Venipuncture / Unknown 12/19/2024 10:44 AM CDT 12/19/2024 10:50 AM CDT Willis Lee PAC HEMATOLOGY ORDERABLE S Final Result [facility] [address] [place] [address] * Magnesium (12/19/2024 10:44 AM CDT) Only the most recent of2 resultswithin the time period is included. MAGNESIUM 2.1 1.6 - 2.6 mg/dL 12/19/2024 11:13 AM CDT [facility] Blood Venipuncture / Unknown 12/19/2024 10:44 AM CDT 12/19/2024 10:50 AM CDT Willis Lee PAC CHEMISTRY ORDERABLES Final Result [facility] [address] [place] [address] * Ethyl Alcohol(Ethanol) [id number] (12/19/2024 10:44 AM CDT) ETHANOL <10 <10 mg/dL 12/19/2024 11:13 AM CDT [facility] Blood Venipuncture / Unknown 12/19/2024 10:44 AM CDT 12/19/2024 10:50 AM CDT Narrative [facility] - 12/19/2024 11:13 AM CDT FOR MEDICAL USE ONLY Willis Lee PAC CHEMISTRY ORDERABLES Final Result [facility] [address] [place] [address] * CMP (12/19/2024 10:44 AM CDT) Only the most recent of4 resultswithin the time period is included. SODIUM 140 136 - 145 mmol/L 12/19/2024 11:13 AM CDT [facility] POTASSIUM 4.0 3.5 - 5.1 mmol/L 12/19/2024 11:13 AM CDT [facility] CHLORIDE 104 98 - 107 mmol/L 12/19/2024 11:13 AM CDT [facility] CO2, VENOUS 26 22 - 30 mmol/L 12/19/2024 11:13 AM CDT [facility] ANION GAP 14.0 <18.0 mmol/L 12/19/2024 11:13 AM CDT [facility] GLUCOSE 88 70 - 99 mg/dL 12/19/2024 11:13 AM CDT [facility] BUN 9 5 - 18 mg/dL 12/19/2024 11:[address] [facility] CREATININE, BLOOD 0.74 0.60 - 1.00 mg/dL 12/19/2024 11:[address] [facility] BUN/CREATININE RATIO 12 12 - 20 ratio 12/19/2024 11:[address] [facility] TOTAL PROTEIN 7.4 6.0 - 8.0 g/dL 12/19/2024 11:13 AM CDT [facility] ALBUMIN 4.4 3.5 - 5.0 g/dL 12/19/2024 11:[address] [facility] A/G RATIO 1.5 1.0 - 2.2 12/19/2024 11:13 AM CDT [facility] CALCIUM 9.4 8.7 - 10.5 mg/dL 12/19/2024 11:[address] [facility] T BILI 0.5 0.2 - 1.2 mg/dL 12/19/2024 11:13 AM CDT [facility] SGOT (AST) 24 <43 U/L 12/19/2024 11:13 AM CDT [facility] SGPT (ALT) 17 <56 U/L 12/19/2024 11:13 AM CDT [facility] ALKALINE PHOSPHATASE 74 40 - 150 U/L 12/19/2024 11:13 AM CDT [facility] GFR, ESTIMATED >60 >=60 12/19/2024 11:13 AM CDT [facility] Comment: Creatinine Clearance is the preferred [...] [facility] [address] [place] [address] * EKG 12 LEAD (12/19/2024 10:36 AM CDT) Only the most recent of3 resultswithin the time period is included. Ventricular Rate 70 BPM EXTERNAL EKG Atrial Rate 70 BPM EXTERNAL EKG P-R Interval 118 ms EXTERNAL EKG QRS Duration 90 ms EXTERNAL EKG Q-T Duration 384 ms EXTERNAL EKG QTC CALCULATION 414 ms EXTERNAL EKG P [place] 63 degrees EXTERNAL EKG R [place] 60 degrees EXTERNAL EKG T [place] 52 degrees EXTERNAL EKG 12/19/2024 10:3 6 AM CDT Impressions EXTERNAL EKG - 12/19/2024 4:09 PM CDT Normal sinus rhythm Normal ECG When compared with ECG of 17-NOV-2024 09:47, No significant change was found Confirmed by Jn Nguyen ([id number]) on 12/19/2024 4:09:26 PM Narrative Procedure Note Jn Nguyen MD PhD - 12/19/2024 IMPRESSION: Normal sinus rhythm Normal ECG When compared with ECG of 17-NOV-2024 09:47, No significant change was found Confirmed by Jn Nguyen ([id number]) on 12/19/2024 4:09:26 PM us Billy Cagle MD IMG ECG ORDERABLES Final Result Performing Organization Address City/[facility] Co de Phone Number EXTERNAL [...] CDT DICTATING PHYSICIAN: Mickey Mccarty D.O. - [facility] US THYROID, 12/02/2024 11:09 AM [...] (2) with internal vascularity. Echogenicity: Hyperechoic (1). Eveefl-mynz-Zqnh: no (0). Margins: Smooth (0). Echogenic foci: None (0). ACR TI-RADS Classification: TR 3 (3 points) Procedure Note Mickey Mccarty, DO - 12/03/2024 DICTATING PHYSICIAN: Mickey Mccarty D.O. - [facility] US THYROID, 12/02/2024 11:09 AM CLINICAL [...] solid (2) with internalvascularity. Echogenicity: Hyperechoic (1). Twzcny-gquz-Fjub: no (0). Margins: Smooth (0). Echogenic foci: [...] HYDROX 27.9 ng/mL 12/02/2024 12:19 PM CDT [facility] Blood Venipuncture / Unknown 12/02/2024 10:47 AM CDT 12/02/2024 11:12 AM CDT Narrative [facility] - 12/02/2024 12:19 PM CDT Published reference ranges for Vitamin D vary depending on time and place and method of testing, and on patient's age, sex, ethnicity and levels of other measured analytes such as parathormone, calcium and phosphorus. The result should be evaluated in conjunction with clinical findings and suspicions. [employer] and Endocrine Clinical Practice Guidelines: Status Vitamin D levels (ng/mL) Deficient <=20 At risk of inadequacy 21-29 Sufficient 30-100 Centers of Disease Control and Prevention Guidelines: Status Vitamin D levels (ng/mL) Deficient <13 At risk of inadequacy 13-19 Sufficient 20-50 Possibly harmful >50 References: [employer], 2010 Dietary reference intakes for calcium and vitamin D. [place]: The National Academies Press. Betsy M, Ariadne N, Glen ZAMUDIO, et al., Evaluation, treatment, and prevention of Vitamin D deficiency: an Endocrinology Clinical Practice Guideline. JCEM 2011 96: 7 6239-9207. Kenan A, Desmond C, Tyra D, et al., Vitamin D Status: [place], 3177-8049, NCHS data brief, no. 59, MD [place]: National Center for Health Statistics. 2010. May N Delisa BRISCOE CNP CHEMISTRY ORDERABLES Adelaide l Result [facility] [address] [place] [address] * THYROID SCREEN WITH REFLEX (12/02/2024 10:47 AM CDT) TSH 1.382 0.300 - 5.000 mIU/L 12/02/2024 12:07 PM CDT [facility] Blood Venipuncture / Unknown 12/02/2024 10:47 AM CDT 12/02/2024 11:12 AM CDT us May N Delisa BRISCOE, HEALTH AND SAFETY MANAGER CHEMISTRY ORDERABLES Adelaide l Result [facility] [address] [place] [address] * VITAMIN B12 (12/02/2024 10:47 AM CDT) VITAMIN B12 418 213 - 816 pg/mL 12/02/2024 12:19 PM CDT [facility] Blood Venipuncture / Unknown 12/02/2024 10:47 AM CDT 12/02/2024 11:12 AM CDT May N Delisa BRISCOE, HEALTH AND SAFETY MANAGER CHEMISTRY ORDERABLES Adelaide l Result Performing Organization Address City/[facility]/ZIP Co de Phone Number [facility] [address] [place] [address] * THYROXINE (T4) FREE (12/02/2024 10:47 AM CDT) T4 FREE 0.8 0.7 - 1.9 ng/dL 12/02/2024 12:08 PM CDT [facility] Blood Venipuncture / Unknown 12/02/2024 10:47 AM CDT 12/02/2024 11:12 AM CDT us May N Delisa BRISCOE, HEALTH AND SAFETY MANAGER CHEMISTRY ORDERABLES Adelaide l Result [facility] [address] [place] [address] * LIPID PANEL (12/02/2024 10:47 AM CDT) [...] - 50 mg/dL 12/02/2024 11:[address] [facility] CHOL/HDL RATIO 3.2 0.0 - 4.4 12/02/2024 11:[address] [facility] NON-HDL CHOLESTEROL 120 <130 mg/dL 12/02/2024 11:54 AM [facility] IS THE PATIENT REQUIRED TO BE FASTING? Yes 12/02/2024 11:54 AM [facility] HAS THE PATIENT BEEN FASTING? Yes 12/02/2024 11:54 AM [facility] Blood Venipuncture / Unknown 12/02/2024 [...] for LDL cholesterol. us May N Oehl TELE MARKETING EXECUTIVE, HEALTH AND SAFETY MANAGER CHEMISTRY ORDERABLES Adelaide l Result Performing Organization Address City/[facility]/ZIP Co de Phone Number [facility] [address] [place] [address] * RSV,SARS-COV-2,INFLUENZA A&B BY PCR (11/17/2024 9:55 AM CDT) FLU A Negative Negative, Error 11/17/2024 11:19 AM CDT [facility] FLU B Negative Negative 11/17/2024 11:19 AM CDT [facility] RESP SYNC VIRUS Negative Negative 11:19 AM CDT [facility] SARSCOV2 NOT DETECTED (Reference Range for this test is Not Detected) 11/17/2024 11:19 AM CDT [facility] Comment:This test was perfor med by a Reverse Rehabilitation Services Director PCR Method. Nasal NASOPHARYNGEAL STRUCTURE / Unknown Non-Phlebotomy Collection / Unknown 11/17/2024 9:55 AM CDT 11/17/2024 10:36 AM CDT us Hugh Palencia DO MICROBIOLOGY - GENERAL ORDERABLES Final Result Performing Organization Address [facility] Co de Phone Number [facility] [address] [place] [address] * Gold Top Tube (11/17/2024 9:45 AM CDT) Blood No Phlebotomy Charged / Unknown 11/17/2024 9:45 AM CDT 11/17/2024 10:38 AM CDT us Hugh Palencia DO CHEMISTRY ORDERABLES Fi nal Result Performing Organization Address City/[facility]/ZIP Co de Phone Number [facility] [address] [place] [address] * Blue Top Tube (11/17/2024 9:45 AM CDT) Blood No Phlebotomy Charged / Unknown 11/17/2024 9:45 AM CDT 11/17/2024 10:38 AM CDT us Hugh Chemo Palencia DO HEMATOLOGY ORDERABLES F inal Result [facility] [place] [address] * XR CHEST SINGLE VIEW PORTABLE (11/15/2024 [...] Result * Human Chorionic Gonadotropin Scrn Serum [id number] (11/15/2024 10:26 PM CDT) PREG-HCG Negative Negative 11/15/2024 11:28 PM CDT [facility] Blood Venipuncture / Unknown 11/15/2024 10:26 PM CDT 11/15/2024 11:06 PM CDT Billy Cagle MD CHEMISTRY ORDERABLES Adelaide l Result Performing Organization Address City/[facility]/ZIP Co de Phone Number [facility] [address] [place] [address] * Lipase (11/15/2024 10:26 PM CDT) LIPASE 19 8 - 78 U/L 11/15/2024 11:[address] [facility] Blood Venipuncture / Unknown 11/15/2024 10:26 PM CDT 11/15/2024 11:06 PM CDT Billy Cagle MD CHEMISTRY ORDERABLES Adelaide l Result Performing Organization Address City/[facility]/ZIP Co de Phone Number [facility] [address] [place] [address] from Last 3 Months Insurance MEDICAID [place] Care Teams Mental Health Tech Relationship Specialty Start Date End Date Delisa, May N, TELE MARKETING EXECUTIVE, HEALTH AND SAFETY MANAGER [address] [address] PCP - General Advanced Practice Nurse 10/21/24
--- OUTSIDE RECORDS SUMMARY | 2025-01-14 06:56 | XMS_ITS | Clinical Summary ---
Author Organization [facility] Address [address] [place] [address] Care Team Providers Care Model Making Supervisor Name Role Phone Christofer Stewart MD [...] cm about 1.5 years ago in [facility] - obtain US of thyroid, labs [...] CDT - 12/17/2024 8:46 PM CDT Emergency [facility] Emergency Department [facility] [place] [address] Discharge Disposition: Left without being seen 10/21/2024 Telephone [facility] [place] [address] [facility] 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 chest pain Views: 2 COMPARISON: 10/17/2024 Procedure Note Rick Grijalva MD - 12/17/2024 MEDICAL RECORDS NUMBER: [id number] PROCEDURE: XR CHEST PA LATERAL 2 VIEWS [...] Data last revised 2020. Testing performed by: [address] [address] Blood 12/17/2024 8:10 PM CDT 12/17/2024 8:14 PM CDT Hannah Muro Jr., MD LAB BLOOD ORDERABLES Fi nal Result Performing Organization Address City/[facility]/ZIP Co de Phone Number RAUL [address] [place] [address] * eGFR (12/17/2024 8:10 PM CDT) eGFR [...] was last reviewed 2020. Testing performed by: [facility], [address] [place] [address]., [address] Blood 12/17/2024 8:10 PM CDT 12/17/2024 8:14 PM CDT us Hannah Muro Jr., MD LAB BLOOD ORDERABLES Fi nal Result Performing Organization Address City/[facility]/ZIP Co de Phone Number RAUL [address] [place] [address] * Differential, auto (12/17/2024 8:10 PM CDT) [facility] Neutrophil abs 4.44 1.50 - 6.50 K/cumm Comment:Testing performed by : [address] [address] Imm gran abs 0.01 0.00 - 0.10 K/cumm [facility] Comment:Testing performed by : [address] [address] Lymphocyte abs 2.64 0.80 - 3.30 K/cumm [facility] Comment:Testing performed by : [address] [address] Monocyte abs 0.68 0.20 - 0.80 K/cumm [facility] Comment:Testing performed by : [address] [address] Eosinophil abs 0.10 0.00 - 0.50 K/cumm [facility] Comment:Testing performed by : [address] [address] Basophil abs 0.04 0.00 - 0.10 K/cumm [facility] Comment:Testing performed by : [address] [address] Neutrophil pct 56.1 % [facility] Comment: Interpretive Data Percent cell count reference ranges are not reported, since discordance with absolute values may lead to misinterpretation of CBC data. Current Interpretive Data was last revised on 2017. Testing performed by: [address] [address] Imm gran pct 0.1 % [facility] Comment: Interpretive Data Percent cell count reference ranges are not reported, since discordance with absolute values may lead to misinterpretation of CBC data. Current Interpretive Data was last revised on 2017. Testing performed by: [address] [address] Lymphocyte pct 33.4 % [facility] Comment: Interpretive Data Percent cell count reference ranges are not reported, since discordance with absolute values may lead to misinterpretation of CBC data. Current Interpretive Data was last revised on 2017. Testing performed by: [address] [address] Monocyte pct 8.6 % [facility] Comment: Interpretive Data Percent cell count reference ranges are not reported, since discordance with absolute values may lead to misinterpretation of CBC data. Current Interpretive Data was last revised on 2017. Testing performed by: [address] [address] Eosinophil pct 1.3 % RAUL Comment: Interpretive Data Percent cell count reference ranges are not reported, since discordance with absolute values may lead to misinterpretation of CBC data. Current Interpretive Data was last revised on 2017. Testing performed by: [address] [address] Basophil pct 0.5 % RAUL Comment: Interpretive Data Percent cell count reference ranges are not reported, since discordance with absolute values may lead to misinterpretation of CBC data. Current Interpretive Data was last revised on 2017. Testing performed by: [address] [address] Blood 12/17/2024 8:10 PM CDT 12/17/2024 8:14 PM CDT us Hannah Muro Jr., MD LAB BLOOD ORDERABLES nal Result [facility] [address] [facility] Department [place] [address] * (ABNORMAL) CBC with auto differential (12/17/2024 8:10 PM CDT) WBC 7.91 3.80 - 9.90 K/cumm Comment:Testing performed by : [address] [address] Hgb 11.2(L) 11.9 - 15.5 g/dL [facility]UL [facility] Comment:Testing performed by : [address] [address] Hct 32.7(L) 35.6 - 45.5 % RAUL [facility] Comment:Testing performed by : [address] [address] Plt 367 150 - 400 K/cumm [facility] Comment:Testing performed by : [address] [address] MPV 9.4 9.1 - 12.3 fL RAUL Comment:Testing performed by : [address] [address] RBC 3.68(L) 3.90 - 5.20 M/cumm [facility] Comment:Testing performed by : [address] [address] MCV 88.9 81.3 - 96.4 fL RAUL Comment:Testing performed by : [address] [address] MCH 30.4 27.1 - 33.3 pg RAUL Comment:Testing performed by : [address] [address] MCHC 34.3 32.3 - 35.7 g/dL RAUL Comment:Testing performed by : [address] [address] RDW CV 12.9 11.1 - 14.9 % RAUL Comment:Testing performed by : [address] [address] RDW SD 42.3 35.7 - 48.1 fL RAUL Comment:Testing performed by : [address] [address] NRBC abs 0.00 0.00 - 0.01 K/cumm RAUL Comment:Testing performed by : [address] [address] Blood Venous blood specimen / Unknown 12/17/2024 8:10 PM CDT 12/17/2024 8:14 PM CDT us Hannah Muro Jr., MD LAB BLOOD ORDERABLES Fi nal Result RAUL [address] [facility] Department [place] [address] * (ABNORMAL) Comprehensive metabolic panel (12/17/2024 8:10 PM CDT) Sodium 139 135 - 145 mmol/L Comment:Testing performed by : [address], [place]., [address] Potassium, pl 4.0 3.3 - 4.9 mmol/L RAUL Comment:Testing performed by : [address], [place]., [address] Chloride 104 97 - 110 mmol/L RAUL Comment:Testing performed by : [address], [place]., [address] CO2 26 22 - 32 mmol/L RAUL Comment:Testing performed by : [address], [place]., [address] Anion gap 9 2 - 15 mmol/L RAUL Comment:Testing performed by : [address], [place]., [address] BUN 17 6 - 25 mg/dL RAUL Comment:Testing performed by : [address], [place]., [address] Creatinine 0.80 0.60 - 1.10 mg/dL RAUL Comment:Testing performed by : [address], [place]., [address] Glucose 103 70 - 199 mg/dL [facility] Comment: Interpretive Data Fasting glucose >/= 126 [...] was last revised 2022. Testing performed by: [address] [address] Calcium 9.1 8.5 - 10.3 mg/dL RAUL Comment:Testing performed by : [address], [place]., [address] Bilirubin, total 0.2 0.1 - 1.2 mg/dL RAUL Comment:Testing performed by : [address] [address] Protein, pl 6.3(L) 6.5 - 8.5 g/dL RAUL Comment:Testing performed by : [address] [address] Albumin 3.9 3.5 - 5.0 g/dL RAUL COLON Comment:Testing performed by : [address], [address] Alk phos 69 40 - 130 Units/L RAUL Comment:Testing performed by : [address] [address] ALT 10 7 - 45 Units/L RAUL Comment:Testing performed by : [address], [address] AST 16 10 - 45 Units/L RAUL Comment:Testing performed by : [address], [address] Blood 12/17/2024 8:10 PM CDT 12/17/2024 8:14 PM CDT us Hannah Muro Jr., MD LAB BLOOD ORDERABLES Fi nal Result RAUL [address] [facility] Department of Laboratories [place], [place] [id number] * ECG 12 lead (12/17/2024 8:02 PM CDT) Ventricular Rate EKG/Min 67 BPM [facility] Atrial Rate 67 BPM [facility] KS-Interval (MSEC) 120 ms [facility] QRS-Interval (MSEC) 94 ms [facility] QT-Interval (MSEC) 392 ms [facility] QTc 414 ms [facility] P Linch 65 degrees [facility] R Linch 60 degrees [facility] T Linch 58 degrees [facility] Diagnosis Normal sinus rhythm Possible Left atrial enlargement Borderline ECG No previous ECGs available Confirmed by MD KARI, HANNAH ([id number]) on 12/18/2024 10:03:54 AM [facility] 12/17/2024 8:02 PM CDT 12/18/2024 10:03 AM CDT us Hannah Muro Jr., MD ECG ORDERABLES Final R esult [facility] * XR Chest Pa Lateral 2 Vw (10/17/2024 2:20 AM CDT) Anatomical Region Laterality Modality Body, Chest N/A Computed Radiogr aphy 10/17/2024 2:35 AM CDT Narrative 10/17/2024 2:36 AM CDT EXAM DESCRIPTION: XR CHEST PA LATERAL 2 VIEWS REASON FOR STUDY: cough Pt has flight of ideas and multiple medical complaints arrived via [facility] discharged from [facility] this AM. Smoker TECHNIQUE: Frontal and lateral [...] Ml Foster M.D. SN: SN Report ID: [id number] Reading Location: [id number] Procedure Note Ml Foster MD - 10/17/2024 EXAM DESCRIPTION: XR CHEST PA LATERAL 2 VIEWS REASON FOR STUDY: cough Pt has flight of [place] [facility] [place] [facility]. Smoker TECHNIQUE: Frontal and lateral [...] Ml Foster M.D. SN: SN Report ID: [id number] Reading Location: [id number] us Tre Roche MD IMG XR PROCEDURES Final Result * ECG 12 lead (10/17/2024 12:07 AM CDT) 10/17/2024 12:0 7 AM CDT Narrative [facility] - 10/17/2024 6:47 AM CDT Vent Rate: 84 bpm RR Interval: 709 msec KS Interval: 111 msec QRS Duration: 96 msec QT Interval: 362 msec QTC Interval: 403 msec P-R-T Linch: 80 - 73 - 64 degrees IMPRESSION: Baseline artifact, probable SINUS RHYTHM WITH SHORT KS INTERVAL LEFT ATRIAL ENLARGEMENT [-0.15mV P WAVE IN V1/V2] POSSIBLE LEFT VENTRICULAR HYPERTROPHY [VOLTAGE CRITERIA PLUS LAE OR QRS WIDENING] ABNORMAL ECG NO CHANGE FROM PREVIOUS TRACING NOTED Electronically Signed By: Francois Casarez MD us Jamarcus Irvin MD ECG ORDERABLES Final Result [facility] from Last 3 Months Insurance [facility] Advance Directives For more information, please contact: [phone] * Full Code (Latest Code Status on File) Date Activated Date Inactivated Comments 10/20/2023 12:17 PM 10/20/2023 8:58 PM Care Teams Model Making Supervisor Relationship Specialty Start Date End Date Christofer Stewart MD PCP - General Family Medicine 06/23/23
--- OUTSIDE RECORDS SUMMARY | 2025-01-14 06:56 | XMS_ITS | Clinical Summary ---
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 This disclosure is being madepursuant to the Care Everywhere program and may not contain all information available regarding this patient. Last updated 17.[facility] Allergies Active Allergy Reactions Criticality Noted Date [...] naloxone HCl (NARCAN) 4 MG/0.1ML nasal spray [place] 1 spray into the nose as needed [...] migh t be different from the original. [id number] Problem Noted Date Diagnosed Date Non-reactive NST [...] (05/05/2019): Confirmed dose-270 mg from [facility]. Scanned Into media. 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 Gender Identity Not on file Sexual Orientation [...] - 19+ 3-dose series) 06/10/2019 01/27/2019, 12/09/2018 Cervical Cancer Screening 11/11/2021 PAP SMEAR 11/11/2021 11/11/2018 PAP with HPV 11/12/2023 11/11/2018 COVID-19 VACCINE ( season) 2024 INFLUENZA VACCINE (#1) 2024 9, [...] P24 AG PANEL Routine 03/10/2019 1:24 PM LIFT DRIVER Supervision of high risk in second trimester PAP LB HPV HR DNA Routine 11/11/2018 12: 09 PM CDT Cervical cancer screening HEPATITIS C ANTIBODY Routine 11/11/2018 12:07 PM CDT Supervision of high risk , antepartum from Last 3 Months or Most Recently Relevant to Health Maintenance Results * HIV-1 HIV-2 ANTIBODY + HIV P24 AG PANEL (03/10/2019 1:24 PM LIFT DRIVER) HIV1/2 Ab + P24 Ag Non Reactive Non Reactive 03/10/2019 2:57 PM LIFT DRIVER [facility] Blood BLOOD SPECIMEN / Unknown Venipuncture / Unknown 03/10/2019 1:24 PM LIFT DRIVER 03/10/2019 1:49 PM LIFT DRIVER Narrative [facility] - 03/10/2019 2:57 PM LIFT DRIVER No Laboratory evidence of HIV infection. us Ivana Thomas [facility] - CHEMISTRY ORDERAB LES Final Result [facility] [address] [place] [address] * PAP LB HPV HR DNA (11/11/2018 12:09 PM CDT) Diagnosis Comment 11/15/2018 8:07 PM CDT [facility] ([facility]) Comment:NEGATIVE FOR INTRAEP ITHELIAL LESION OR MALIGNANCY. Specimen Adequacy Comment 019 8:07 PM CDT [facility] ([facility]) Comment: Satisfactory for evaluation. No endocervical component is identified. An endocervical component is not commonly seen in the patient. Performed by Comment 11/15/2018 8:07 PM CDT [facility] ([facility] Comment:Bernarda Hutchins Billiard Player (ASCP) Comment . 11/15/2018 8:07 PM CDT [facility] ([facility]) Note Comment 11/15/2018 8:07 PM CDT [facility] ([facility]) Comment: The Pap smear is a screening test designed to aid in the detection of premalignant and malignant conditions of the uterine cervix. It is not a diagnostic procedure and should not be used as the sole means of detecting cervical cancer. Both false-positive and false-negative reports do occur. Human papillomavirus High Risk Negative Negative 11/15/2018 8:07 PM CDT [facility] ([facility]) Comment: This high-risk HPV test detects thirteen high-risk types (16/18/31/33/35/39/45/51/52/56/58/59/68) without differentiation. Pathology/Cytolo gy ENTIRE ENDOCERVIX / Unknown Collection / Unknown 11/11/2018 12:09 PM CDT 11/11/2018 12:27 PM CDT Narrative [facility] ([facility]) - 11/15/2018 8:07 PM CDT Performed at: 01 - [address] [id number] Property Appraiser: Onelia Barbosa MD, Phone: [phone] Performed at: - [facility] [id number] Property Appraiser: Onelia Barbosa MD, Phone: [phone] Specimen Comment: Source.............Endocervix Specimen Comment: LMP / Prev Treat...Conization;Yolyn / BX Specimen Comment: Other.............. Specimen Comment: No. of containers..01 ThinPrep Vial Helen Zurita [facility] - PATHOLOGY/CYTOLO GY ORDERABLES Final Result [facility] ([facility]) [address] [place] [address] * HEPATITIS C ANTIBODY (11/11/2018 12:07 PM CDT) HCV Antibody Screen Non Reactive Non Reactive 11/11/2018 1:55 PM CDT [facility] HCV S/C Ratio 0.19 0.00 - 0.79 11/11/2018 1:55 PM CDT [facility] Comment: Ipkbpx-bv-gcjumz ratio (S/CO) <0.80: Non Reactive Blood BLOOD SPECIMEN / Unknown Venipuncture / Unknown 11/11/2018 12:07 PM CDT 11/11/2018 12:56 PM CDT Narrative [facility] - 11/11/2018 1:55 PM CDT Non Reactive - Antibodies to Hepatitis C virus (HCV) were not detected, result does not exclude early acute HCV infection. Helen Zurita [facility] - CHEMISTRY ORDERA BLES Final Result Performing Organization Address [facility] Co de Phone Number [facility] [address] [place] [address] from Last 3 Months or Most Recently Relevant to Health Maintenance Insurance [facility] Advance Directives * Full Code (Latest [...] 11:00 AM 03/17/2019 7:31 PM Care Teams Oil Rig Roughneck Relationship Specialty Start Date End Date Mario Logan MD [address] [place] [id number] PCP - General 05/24/19
--- OUTSIDE RECORDS SUMMARY | 2025-01-14 06:56 | XMS_ITS | Patient Health Record ---
Author Organization [facility] Address [address] [place] [address] Care Team Providers Care Procurement Analyst Name Role Phone Vicentemaria guadalupeAlana Primary Care Provider Kasey Ny Unavailable [phone] Ava Hernandez Unavailable [phone] Leandro Harris Unavailable [phone] Ana Verma Unavailable [phone] Braxton Costa Unavailable [phone] Evelyn Wilcox Unavailable [phone] Princess Harvey Unavailable [phone] Allergies Allergen (clinical drug ingredient) Drug/Non Drug Allergy documented on EMR Reaction Allergy Type Onset Date Status Penicillin rash Drug Allergy Active Results Component Value Reference Range Notes QuantiFERON-TB Gold Plus ([id number]) Reviewed date:09/22/2024 02:30:29 PM Interpretation:Normal Performing Lab:[facility], [address] [facility], [place], Phone - [phone], Director - [facility] Notes/Report: QuantiFERON Incubation Incubation performed. QuantiFERON-TB Gold [...] Screen *HIV 1, 2 Ab, p24 Ag ([id number]) Reviewed date:09/21/2024 02:19:40 PM Interpretation:Normal Performing Lab:[facility] [place], [address] [place] [address], Phone - [phone], Director - [facility] Notes/Report: HIV Ab/p24 Ag Screen Non Reactive Non Reactive HIV-1/HIV-2 antibodies and HIV-1 p24 antigen were NOT detected. There is no laboratory evidence of HIV infection. HIV Negative CMP 14 Comprehensive Metabol ic Panel* Reviewed date:09/21/2024 02:19:40 PM Interpretation:Normal Performing Lab:[facility], [address] [place] [address], Phone - [phone], Director - [facility] Notes/Report: Glucose 73 70-99 mg/dL BUN [...] Reviewed date:09/21/2024 02:19:40 PM Interpretation:Normal Performing Lab:[facility] [place], [address] [facility], [place], Phone - [phone], Director - [facility] Notes/Report: WBC 5.9 3.4-10.8 [...] neg BUP neg TCA neg FTY neg Test, Urine Reviewed date:12/27/2024 11:14:39 AM Interpretation: Performing Lab: Notes/Report: Test, Urine neg Negative - Negative Breathalyzer Reviewed date:12/27/2024 11:14:11 AM Interpretation: Performing Lab: Notes/Report: SHERI 0.000 14 Panel Urine Drug Screen Reviewed date:12/27/2024 10:41:02 AM Interpretation: Performing Lab: Notes/Report: THC neg CHRISTOPHER neg MOP (OPI) neg AMP neg MET pos BAR neg BZO pos MDMA neg MTD neg OXY neg PCP neg BUP pos TCA neg FTY neg Reason For Referral No Information Medications Medication SIG (Take, Route, Frequency, Duration) Notes Start Date End Date Status Nicotine Polacrilex 4 MG 1 lozenge as ne eded Mouth/Throat every 8 hrs; Duration: 30 days 01/10/2025 Active hydrOXYzine Pamoate 25 mg TAKE 1 TO 2 CA PSULES BY MOUTH EVERY FOUR HOURS NEEDED FOR ANXIETY, AGITATION OR INABILITY TO SLEEP; Duration: 15 Active Nicotine 21 MG/24HR 1 patch to skin. Transdermal Once a day, removing at bedtime 12/27/2024 Active Buprenorphine HCl-Naloxone HCl 8-2 MG 1 film under the tongue and allow to dissolve Sublingual twice a day 01/10/2025 Active Melatonin 5 MG 1 tablet at bedtime as needed Orally Once a day; Duration: 30 days 12/27/2024 Active Nicotine Polacrilex 4 MG Chew 1 piece as needed for nicotine cravings Mouth/Throat up to every hour (max of 20 pieces per day) 12/27/2024 Active traZODone HCl 50 MG 1 tablet at bedtime as needed Orally Once a day; Duration: 30 day(s) 01/10/2025 Active OLANZapine 10 MG 1 tablet at bedtime Orally Once a day; Duration: 30 days 09/21/2024 Active OLANZapine 2.5 MG 1 tablet as needed Orally Once a day; Duration: 30 days As needed 09/21/2024 Active Social History Tobacco Use: Social History Observation Description Date Details (start date - stop date) Current Smoker NA - NA Sex Assigned At : Social History Observation Description Sex Assigned At Female PRAPARE Question Answer Notes Date Completed/Updated: 12/27/2024 What is your current housing situation? I do not have housing (staying with others, in a hotel, in a jail, living outside on the street, on a beach, or in a park) Are you worried about losing your housing? Yes What is the highest level of school that you have finished? Less than a high school degree What is your current work situation? Unemployed and seeking work In the past year, have you o r any family members you live with been unable to get any of the following when it was really needed? Check all that apply Food,Clothing,Utilities,Phone Has lack of transportation k ept you from medical appointments, meetings, work or from getting things needed for daily living? Yes, it has kept me from medical appointments or from getting my medications,Yes, it has kept me from non-medical meetings, appointments, work, or getting things needed for daily living How often do you see or talk to people that you care about and feel close to? (For example: talking to friends on the phone, visiting friends or family, going to zoroastrianism or club meetings) 1 or 2 times a week How stressed are you? Stress is when someone feels tense, nervous, anxious, or can\t sleep at night because their mind is troubled Quite a bit In the past year have you sp ent more than 2 nights in a row in a half-way, senior care, alf center, or juvenile correctional facility? Yes What was your release date? 11/29/2024 Are you a refugee? I choose not to answer this q uestion What country are you from? I choose not to answe r this question Do you feel physically and e motionally safe where you currently live? No In the past year, have you b een afraid of your partner or ex-partner? Yes PRAPARE Score: 19 Enabling Services Provided? Yes Please specify Case Management Follow-up Tobacco Control (Standard) Question Answer Notes Tobacco use: Current smoker Problems Problem Type SNOMED Code ICD Code Onset Dates Problem Status W/U Status Risk Notes Problem Benign paroxysmal positional vertigo (326605291) Benign paroxysmal vertigo, bilateral (H81.13) Active confirmed Problem Substance abuse (1464606893) Substance abuse (F19.10) Active confirmed Problem Thyroid nodule (968752350) Thyroid nodule (E04.1) Active confirmed Problem Systolic murmur (76950969) Systolic murmur (I38) Active confirmed Problem Bipolar disorder (81855196) Bipolar 1 disorder, depressed (F31.9) Active confirmed Problem Stimulant abuse (069660270) Methamphetamine use disorder, mild, 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 confirmed Problem Opioid use disorder (7292001600) Opioid use disorder (F11.99) Active confirmed Problem Tobacco user (980259877) Nicotine dependence with current use (F17.200) Active confirmed Vital Signs Heart Rate 69 /min 01/10/2025 Temperature 97.9 degrees Fahrenheit 10/21/2024 Respiratory Rate 16 /min 01/10/2025 Oximetry 96 % 01/10/2025 Blood pressure diastolic 62 mm Hg 01/10/2025 Height 61 in 01/10/2025 Blood pressure systolic 104 mm Hg 01/10/2025 Weight 128.4 lbs 01/10/2025 BMI 24.26 kg/m2 01/10/2025 Encounters Encounter Location Date Provider Diagnosis [facility] [address] [place] [address] 09/20/2024 Alana Epps Methamphetamine use disorder, mild, in early remission F15.10 ; Opioid use disorder F11.99 ; Routine general medical examination at a health care facility Z00.00 and Nicotine dependence with current use F17.[address] [place] [address] 09/20/2024 Ava Hernandez Methamphetamine use disorder, mild, in early remission F15.10 and Bipolar 1 disorder, depressed F31.[address] [place] [address] 09/21/2024 Kasey Ny Bipolar 1 disorder, depressed F31.9 [facility] [address] [place] [address] 09/26/2024 Braxton Costa Thyroid nodule E04.1 ; Benign paroxysmal vertigo, bilateral H81.13 ; Systolic murmur I38 and Over weight E66.3 [facility] [address] [place] [address] 10/21/2024 Alana Epps Opioid use disorder F11.99 [facility] [address] [place] [address] 11/15/2024 Alana Epps Opioid use disorder F11.99 [facility] [address] [place] [address] 12/27/2024 Alana Epps Opioid use disorder F11.99 ; Nicotine dependence with current use F17.200 and Routine general medical examination at a health care facility Z00.00 [facility] [place] [address] 12/27/2024 Princess Harvey Substance abuse F19. [address] [place] [address] 12/29/2024 Kasey Ny Bipolar 1 disorder, depressed F31.9 [address] [place] [address] 01/10/2025 Alana Epps Opioid use disorder F11.99 and Nicotine dependence with current use F17.[address] [address] 09/19/2024 Alana Epps [facility] [address] [place] [address] 09/20/2024 Alana Epps [address] [place] [address] 09/29/2024 Alana Epps Opioid use disorder F11.99 [address] [place] [address] 10/13/2024 Alana Epps Assessments Encounter Date Diagnosis [...] or be administered own oral medications per [facility] protocols. Provided informed consent with understanding of [...] 11/15/2024 Opioid use disorder (ICD-10 - F11.99) 12/27/2024 Opioid use disorder (ICD-10 - F11.99) Opioid use disorder is being managed with Suboxone, though adherence is inconsistent. - Refilled Suboxone prescription at the pharmacy. 12/27/2024 Nicotine dependence with current use (ICD-10 - F17.200) 12/27/2024 Substance abuse (ICD-10 - F19.10) 12/29/2024 Bipolar 1 disorder, depressed (ICD-10 - F31.9) Restart Olanzapine. She would like to increase Suboxone, so would need an appointment. Labs done recently 12-24-24. Continue services as scheduled. May self-administer medications or be administered own oral medications per [facility] protocols. Provided informed consent with understanding of side effects, adverse effects, risks and benefits as well as alternative treatments as previously discussed and with the above recommended medications & other aspects of the treatment program. Agrees to return sooner if symptoms worsen or suicidal or homicidal ideations occur. 01/10/2025 Opioid use disorder (ICD-10 - F11.99) Patient reports hot and cold sweats, sneezing, and sleep disturbance while taking Suboxone. Current Suboxone regimen does not help with sleep. Patient is concerned about drowsiness if dose is increased. History of anxiety related to sleep disturbance. - Increase Suboxone to 8 mg twice a day. - Prescribe Trazodone for sleep disturbance. 01/10/2025 Nicotine dependence with current use (ICD-10 - F17.200) Patient uses nicotine patch and gum; alternates between gum and patch. Only gum available at home; lozenges not prescribed. Patient expressed desire to switch to lozenges for better control. - Continue nicotine patch 21 mg. - Continue nicotine gum. - Prescribe nicotine lozenges. 12/27/2024 Routine general medical examination at a health care facility (ICD-10 - Z00.00) Admit to the crisis unit for 24-hour observation and initiate standing/protocol orders: The following PRN [...] ing, or if soaking through bandages. 09/20/2024 Routine general medical examination at a health care facility (ICD-10 - Z00.00) SUPR Programs: Based on an evaluation of [facility] Patient Placement Criteria, a recommendation [...] - E66.3) 09/20/2024 Other Clinician met w [facility] client to assess needs for residential services. [...] self-administe r their own oral medications per [facility] Protocol. 12/27/2024 Other Discussed medication side effects, adverse effects, risks, benefits, as well as interactions. Encouraged non-use of opioids. Has naloxone. Recommended participation in recovery groups and/or counseling services. May contact office with questions or concerns. Patient may self-administe r their own medications or may self-administe r their own oral medications per [facility] Protocol. 12/27/2024 Other Clinician met w [facility] client to assess needs for residential services. Clinician gathered information regarding historical presentation of mental health and substance use symptoms including withdrawal, HIV Risk assessment, psychiatric hospitalization history and presenting concern. Clinician conducted PHQ9 and CSSRS assessments as well as social drivers of health screening for the purposes of identifying additional service needs. 01/10/2025 Other Discussed medication side effects, adverse effects, risks, benefits, as well as interactions. Encouraged non-use of opioids. Has naloxone. Recommended participation in recovery groups and/or counseling services. May contact office with questions or concerns. Patient may self-administe r their own medications or may self-administe r their own oral medications per [facility] Protocol. Plan Of Treatment Future Test Test Name Order Date Echo doppler exam 09/26/2024 Ultrasound : Thyroid 09/26/2024 Next Appt Details Provider Name:Alana patino, 01/24/2025 09:00:00 AM, [address], [place], [address], Insurance Providers Payer Name Payer Address Payer Phone Subscriber Number Group Number Insured Name Patient Relationship to Insured Coverage Start Date Coverage End Date [employer] [address] [place] [phone] [id number] Jaycee Rouse Self - patient is the insured 3 [employer] [address] [place] [address] [phone] [id number] Jaycee Rouse Self - patient is the insured 5 [employer] [address] [place] [address] [phone] [id number] Jaycee Rouse Self - patient is the insured 5 Medical (General) History Medical History History ICD Code Manic Depression Opioid use disorder Surgical History Surgery Date(Month/Year) 3 c-sections right hand has pins gall bladder removed Hospitalization History Reason Date(Month/Year) gateway, multiple times between 2023- 5 06/2024
--- OUTSIDE RECORDS SUMMARY | 2025-01-14 06:57 | XMS_ITS | Encounter Summary ---
Author Organization [facility] Address [facility] [place] [address] Care Team Providers Care Junior Technical Writer Name Role Phone None, Provider Primary Care Provider Diana HerculesMay [facility] Primary Care Provider [phone] Encounter Details Date Type Department Care Team (Late st Contact Info) Description 07/31/2018 Abstract [facility] CONVERSION [address] [place] [address] , Generic Conversion, Social History Tobacco Use Types Packs/Day Years Used Date Smoking Tobacco: Never Assessed Comments Unknown Sex and Gender Information Value Date Recorded Sex Assigned at Female 10/17/2024 3:24 PM CDT Legal Sex Female 11:36 PM CDT Gender Identity Female 12/25/2024 10:22 PM STUDENT DEVELOPMENT COORDINATOR Sexual Orientation Straight 12/25/2024 10 :22 PM STUDENT DEVELOPMENT COORDINATOR documented as of this encounter Plan of Treatment Not on file documented as of this encounter Visit Diagnoses Not on filedocumented in this encounter Additional Health Concerns Infection Onset Date Last Indicated Resolved Time COVID-19 Rule Out 10/17/2024 10/17/2024 10/17/2024 5:06 PM CDT Respiratory Rule Out 10/18/2024 10/18/2024 025 1:50 PM CDT documented as of this encounter Care Teams Junior Technical Writer Relationship Specialty Start Date End Date None, Provider, PCP - General UNKNOWN PHYSICIAN SPECIALTY 07/13/23 DelisaMay, [employer] [address] [place] [address] PCP - General Nurse Practitioner Family 12/23/24 documented as of this encounter
--- OUTSIDE RECORDS SUMMARY | 2025-01-14 06:57 | XMS_ITS | Clinical Summary ---
Author Organization [facility] Address [facility] [place] [address] Care Team Providers Care Big Data Developer Name Role Phone Delisa, May [facility] Primary Care Provider [phone] Allergies Active Allergy Reactions Criticality Noted Date Comments Codeine Anaphylaxis,Shortnes s of Breath High 07/13/2015 Ketorolac Other (see comment) 07/13/2015 Rapid Heart Rate Naproxen GI Upset 07/13/2015 No problems with Ibuprofen Penicillins Unknown 07/13/2023 Medications buprenorphine-n aloxone (SUBOXONE) 4 mg-[address] 1 Film under the tongue 2 (two) times a day. Active predniSONE 50 MG tablet Take 1 tablet (50 mg total) by mouth daily for 10 days. 10 tablet 5 12/26/19 Additional Information Patient not taking.Reported on 12/23/2024 cyclobenzaprine (FLEXERIL) 10 MG tablet Take 1 tablet (10 mg total) by mouth 3 (three) times daily as needed for Muscle Spasms. 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 Encounters Date Type Department Care Team Description 12/25/2024 10:14 PM NETWORK PLANNER - 12/26/2024 11:40 AM [facility] Emergency [facility] Emergency Room [address] [place] [id number] Rl Virgen MD Baum, Jamie L, MD Chest Pain Discharge Disposition: Left Against Medical Advice 12/25/2024 7:26 PM NETWORK PLANNER - 12/25/2024 9:07 PM NETWORK PLANNER Emergency [facility] Emergency Room [address] [place] [id number] Rl Virgen MD Chest Pain Discharge Disposition: Home or Self Care (Routine Discharge) 12/25/2024 Travel 12/24/2024 3:59 PM CDT - 12/24/2024 8:20 PM CDT Emergency [facility] Emergency Room [address] [place] [address] Salo Dillon MD Palmer, Aunaly E, MD Chest Pain Discharge Disposition: Home or Self Care (Routine Discharge) 12/24/2024 Travel 12/23/2024 2:42 PM CDT - 12/23/2024 4:51 PM CDT Emergency [facility] Emergency Room [address] [place] [address] Salo Dillon MD Chest Pain Discharge Disposition: Home or Self Care (Routine Discharge) 12/23/2024 Travel 12/17/2024 11:53 PM CDT - 12/18/2024 2:43 AM CDT Emergency [facility] Emergency [address] [place] [address] Billy Mayfield DO Chest Pain Discharge Disposition: Home or Self Care (Routine Discharge) 12/17/2024 Travel 12/15/2024 2:10 AM CDT - 12/15/2024 3:41 AM CDT Emergency [facility] [address] [place] [address] Jens Mendoza MD Abdominal Pain Discharge Disposition: Home or Self Care (Routine Discharge) 12/15/2024 Travel 12/14/2024 7:01 PM CDT - 12/14/2024 11:09 PM CDT Emergency [facility] [address] [place] [address] Jens Mendoza MD Chest Pain; Shortness Of Breath Discharge Disposition: Home or Self Care (Routine Discharge) 12/14/2024 Travel 10/18/2024 9:46 AM CDT - 10/18/2024 10:30 PM CDT Emergency [facility] [place] [address] [place] [address] Yovana Zamora MD Geldmacher, Kelly J, MD Medical Problem Discharge Disposition: [facility] 10/17/2024 2:59 PM CDT - 10/17/2024 8:00 PM CDT Emergency [facility] Room [address] [place] [address] Familia Carter MD Medical Problem Discharge Disposition: [...] In the past 12 months has e [employer], gas, oil, or water [employer] threatened to shut off services in [...] any time in the past 12 m [facility], were you homeless or living in a penitentiary (including now)? Yes 10/13/2023 Comments No Sex and Gender Information Value Date Recorded Sex Assigned at Female 10/17/2024 3:24 PM CDT Legal Sex Female 11:36 PM CDT Gender Identity Female 12/25/2024 10:22 PM NETWORK PLANNER Sexual Orientation Straight 12/25/2024 10 :22 PM NETWORK PLANNER Last Filed Vital Signs Vital Sign Reading Time Taken Comments Blood Pressure 91/55 12/26/2024 7:00 AM NETWORK PLANNER Pulse 57 12/26/2024 7:00 AM NETWORK PLANNER Temperature 36.5 C (97.7 F) 12/26/2024 7:00 AM NETWORK PLANNER Respiratory Rate 18 12/25/2024 10:18 PM NETWORK PLANNER Oxygen Saturation 97% 12/26/2024 7:00 AM NETWORK PLANNER Inhaled Oxygen Concentration - - Weight 49.9 kg (110 lb) 12/25/2024 10:18 PM NETWORK PLANNER Height 154.9 cm (5' 1) 12/25/2024 10:18 PM NETWORK PLANNER Body Mass Index 20.78 12/25/2024 10:18 PM NETWORK PLANNER Plan of Treatment Health Maintenance Due Date Last Done Comments Annual Physical 1985 Pneumococcal Vaccine: Pediatrics (0 to 5 Years) and At-Risk Patients (6 to 49 Years) (1 of 2 - PCV) 2001 02/24/2016 HPV Vaccines (1 - 3-dose SCDM series) 2009 Cervical Cancer Screening Pap with HPV Testing (Age 30 to 64) Every 5 Years 01/29/2012 Hepatitis A Vaccines (2 of 2 - Risk 2-dose series) 06/10/2019 12/09/2018 Hepatitis B Vaccines (3 of 3 - 19+ 3-dose series) 06/10/2019 01/27/2019, 12/09/2018 Mammogram Screening 2022 COVID-19 Vaccine ( season) 2024 Influenza Adult (#1) 2024 12/09/2018, 04/05/2014, 02/22/2013 Cervical Cancer Screening Pap Smear (Age 30 to 64) Every 3 Years 04/23/2025 04/23/2022 Cervical Cancer Screening with HPV 04/23/2025 DTaP, Tdap and Td Vaccines (7 - [...] Procedure Name Priority Date/Time Associated Diagnosis Comments HC URINE TEST STAT 12/25/2024 11:24 PM NETWORK PLANNER DRUG SCREEN RAPID STAT 12/25/2024 11: 24 PM NETWORK PLANNER ECG 12-LEAD Routine 12/25/2024 7:28 PM NETWORK PLANNER CTA CHEST STAT 12/24/2024 5:42 PM CDT XR CHEST PORTABLE STAT 12/24/2024 4:3 1 PM CDT ECG 12-LEAD STAT 12/24/2024 4:10 PM CDT HC PROTHROMBIN TIME (PT) STAT 12/24/2024 4:10 PM CDT HC LIPASE STAT 12/24/2024 4:10 PM CDT HC TROPONIN QN STAT 12/24/2024 4:10 PM CDT HC COMPREHENSIVE METABOL PANEL STAT 12/24/2024 4:10 PM CDT HC CBC AUTO W/AUTO DIFF STAT 12/24/2024 4:10 PM CDT PROTHROMBIN TIME, VENOUS STAT 12/23/2024 3:10 PM CDT TROPONIN, QUANT STAT 12/23/2024 3:10 PM CDT COMPREHENSIVE METABOLIC PANEL STAT 12/23/2024 3:10 PM CDT CBC W/DIFF AUTOMATED STAT 12/23/2024 3:10 PM CDT XR CHEST PORTABLE STAT 12/23/2024 3:0 9 PM CDT ECG 12-LEAD STAT 12/23/2024 2:40 PM CDT ECG 12-LEAD STAT 12/18/2024 12:05 AM CDT HC D DIMER QN STAT 12/18/2024 12:00 AM CDT HC HCG QN STAT 12/18/2024 12:00 AM CDT HC LIPASE STAT 12/18/2024 12:00 AM CDT HC COMPREHENSIVE METABOL PANEL STAT 12/18/2024 12:00 AM CDT HC PROTHROMBIN TIME (PT) STAT 12/18/2024 12:00 AM CDT HC CBC AUTO W/AUTO DIFF STAT 12/18/2024 12:00 AM CDT TROPONIN, QUANT [...] WO CON STAT 10/18/2024 8:19 PM CDT HC CULTURE URINE W/COLONY CT STAT 10/18/2024 4:30 PM CDT RESPIRATORY PCR PANEL 2 STAT 10/18/2024 12:33 PM CDT HC HCG QL URI NE-QW STAT 10/18/2024 1 1:00 AM CDT HC URINALYSIS AUTO W/MICRO STAT 10/18/2024 11:00 AM CDT DRUG SCREEN RAPID STAT 10/18/2024 10: 56 AM CDT HC MAGNESIUM Routine 10/18/2024 10:45 AM CDT HC CREATINE KINASE (CPK) TOTAL Routine 10/18/2024 10:45 AM CDT SALICYLATE STAT 10/18/2024 10:45 AM CDT HC THYROID STIMULATING HORM STAT 10/18/2024 10:17 AM CDT HC DRUG SCREEN PRESUMPTIVE INSTRUMENT T4 STAT 10/18/2024 10:17 AM CDT ETHANOL STAT 10/18/2024 10:17 AM CDT HC COMPREHENSIVE METABOLIC PANEL STAT 10/18/2024 10:17 AM CDT HC CBC AUTO W/AUTO DIFF STAT 10/18/2024 10:17 AM CDT ECG 12-LEAD STAT 10/18/2024 10:08 AM CDT DRUG SCREEN RAPID STAT 10/17/2024 4:1 5 PM CDT HC DRUG SCREEN PRESUMPTIVE INSTRUMENT T3 STAT 10/17/2024 4:12 PM CDT HC BASIC METABOLIC PANEL STAT 10/17/2024 4:12 PM CDT HC CBC AUTO W/AUTO DIFF STAT 10/17/2024 4:12 PM CDT CORONAVIRUS (COVID-19) ANTIGEN STAT 10/17/2024 4:05 PM CDT ECG 12-LEAD Routine 10/17/2024 3:31 PM CDT HEPATITIS PANEL,ACUTE Routine 10/13/2023 3:24 AM CDT from Last 3 Months or Most Recently Relevant to Health Maintenance Results * (ABNORMAL) DRUG SCREEN RAPID (12/25/2024 11:24 PM NETWORK PLANNER) Only the most recent of3 resultswithin the time period is included. Pathologist [facility] AMPHETAMINE (U) NONE DETECTED NONE DETECTED 12/25/2024 11:45 PM [facility] BARBITURATES SCREEN (U) NONE DETECTED NONE DETECTED 12/25/2024 11:45 PM [facility] BENZODIAZEPINES SCREEN (U) DETECTED(A) NONE DETECTED 12/25/2024 11:45 PM [facility] BUPRENORPHINE SCREEN (U) DETECTED(A) NONE DETECTED 12/25/2024 11:45 PM [facility] COCAINE METABOLITES (U) NONE DETECTED NONE DETECTED 12/25/2024 11:45 PM [facility] METHAMPHETAMINE (U) DETECTED(A) NONE DETECTED 12/25/2024 11:45 PM [facility] METHADONE (U) NONE DETECTED NONE DETECTED 12/25/2024 11:45 PM [facility] OPIATE SCREEN (U) NONE DETECTED NONE DETECTED 12/25/2024 11:45 PM [facility] OXYCODONE SCREEN (U) NONE DETECTED NONE DETECTED 12/25/2024 11:45 PM [facility] PHENCYCLIDINE PCP (U) NONE DETECTED NONE DETECTED 12/25/2024 11:45 PM [facility] CANNABINOIDS SCREEN (U) NONE DETECTED NONE DETECTED 12/25/2024 11:45 PM [facility] TRICYCLIC ANTIDEPRESSANT SCREEN (U) NONE DETECTED NONE DETECTED 12/25/2024 11:45 PM [facility] Comment: NOTE: RESULTS OF THIS [...] URINE SPECIMEN / Unknown 12/25/2024 11:24 PM NETWORK PLANNER Rl Virgen MD URINE ORDERABLES Final Result Performing Organization Address City/[facility]/ZIP Co de Phone Number [facility] [address] [place] [address], [place] [phone] * TEST URINE (12/25/2024 11:24 PM NETWORK PLANNER) Only the most recent of2 resultswithin the time period is included. URINE HCG TEST NEG NEGATIVE 12/25/2024 11:[address] [facility] Comment: VERY DILUTE URINE SPECIMENS MAY NOT CONTAIN AIRCRAFT ELECTRICIAN LEVELS OF HCG. IF IS STILL SUSPECTED, A SERUM HCG TEST IS RECOMMENDED. URINE SPECIMEN FROM URETHRA / Unknown 12/25/2024 11:24 PM NETWORK PLANNER Rl iVrgen MD URINE ORDERABLES Final Result Performing Organization Address [facility] Co de Phone Number [facility] [address] [place] [address], [place] [phone] * ECG 12 lead (12/25/2024 7:28 PM NETWORK PLANNER) Only the most recent of7 resultswithin the time period is included. ECG QT 374 [facility] ECG QTC 404 [facility] RAD 12/25/2024 7:28 PM NETWORK PLANNER Narrative [facility] RAD - 12/25/2024 7:36 PM NETWORK PLANNER [facility] Test Date: 2024-12-25 Pat Name: JJ SLATER Department: 85 Room: [place] [address] Gender: Female Biomedical Scientist: : 1980 Requested By: RL VIRGEN Order Number: [id number] Reading MD: Bubba Reyes Measurements Intervals [place] Rate: 70 P: 74 MS: 126 QRS: 69 QRSD: 97 T: 62 QT: 374 QTc: 404 Interpretive Statements SINUS RHYTHM Compared to ECG 12/24/2024 16:10:34 Sinus bradycardia no longer present ORK PLANNER Procedure Note Bubba Reyes MD - 12/25/2024 [facility] Test Date: 2024-12-25 Pat Name: JJ SLATER Department: 85 Room: EXAM 505 Gender: Female Biomedical Scientist: : 1980 Requested By: RL VIRGEN Order Number: [id number] Reading MD: Bubba Reyes Measurements Intervals [place] Rate: 70 P: 74 MS: 126 QRS: 69 QRSD: 97 T: 62 QT: 374 QTc: 404 Interpretive Statements SINUS RHYTHM Compared to ECG 12/24/2024 16:10:34 Sinus bradycardia no longer present ORK PLANNER us Rl Virgen MD ECG ORDERABLES Final Result [facility] * CTA CHEST (12/24/2024 5:42 PM CDT) Anatomical Region Laterality Modality Chest Computed Tomogra phy 12/24/2024 5:56 PM CDT Impressions 12/24/2024 6:02 PM CDT IMPRESSION: 1. Technically limited evaluation for pulmonary embolism. 2. Stable 9 mm lung nodule. Recommend continued surveillance as above. Referred By: Interpreted By: Everett Peterson MD, 12/24/2024 5:56 PM Narrative 12/24/2024 6:02 PM CDT [facility] [place] [address] Examination: CTA CHEST Clinical history: Chest pain [...] Procedure Note Everett Peterson MD - 12/24/2024 [place] [id number] [facility] [place] [address] Examination: CTA CHEST Clinical history: Chest pain [...] 4:34 PM Narrative 12/24/2024 4:41 PM CDT [facility] [address] [place] [address] Examination: XR CHEST PORTABLE Exam time: 12/24/2024 4:14 PM Clinical history: Chest pain. Comparison: 12/23/2024. Technique: AP portable upright radiograph of the chest. Findings: Normal heart size. Normal distribution of the pulmonary vasculature. No focal parenchymal lung consolidation, pleural effusion, or pneumothorax. No acute osseous findings. Surgical clips noted in the upper abdomen. Procedure Note Juan Alberto Meier MD - 12/24/2024 [facility] [address] [place] [address] Examination: XR CHEST PORTABLE Exam time: 12/24/2024 [...] By: Lulu Wolff MD, 12/24/2024 4:34 PM us Salo Dillon MD GENERAL IMAGING Final Result * PROTIME/INR, VENOUS (12/24/2024 4:10 PM CDT) Only the most recent of3 resultswithin the time period is included. PROTIME 12.3 9.1 - 12.4 SEC 12/24/2024 4:[address] [facility] INR 1.1 12/24/2024 4:[address] [facility] Comment: Recommend INR ranges for Oral Anticoagulant Therapy: Mechanical Cardiac Values 2.5-3.5 All others indication 2.0-3.0 12/24/2024 4:10 PM CDT us Salo Dillon MD LABORATORY Final Result [facility] [address] [place] [id number], [place] [phone] * (ABNORMAL) COMPREHENSIVE METABOLIC PANEL (12/24/2024 4:10 PM CDT) Only the most recent of6 resultswithin the time period is included. GLUCOSE 84 70 - 99 MG/DL 12/24/2024 4:[address] [facility] BUN 21(H) 7 - 18 MG/DL 12/24/2024 4:[address] [facility] CREATININE S/P/B 0.78 0.55 - 1.02 MG/DL 12/24/2024 4:[address] [facility] SODIUM S/P/B 139 136 - 145 MMOL/L 12/24/2024 4:[address] [facility] POTASSIUM S/P/B 4.0 3.5 - 5.1 MMOL/L 12/24/2024 4:[address] [facility] CHLORIDE S/P/B 103 100 - 108 MMOL/L 12/24/2024 4:[address] [facility] CO2 31.8 21 - 32 MMOL/L 12/24/2024 4:[address] [facility] CALCIUM S/P/B 8.5 8.5 - 10.1 MG/DL 12/24/2024 4:[address] [facility] BILIRUBIN TOTAL S/P/B 0.5 0.2 - 1.2 MG/DL 12/24/2024 4:[address] [facility] TOTAL PROTEIN S/P/B 6.4 6.4 - 8.2 G/DL 12/24/2024 4:[address] [facility] ALBUMIN S/P/B 3.4 3.4 - 5.0 G/DL 12/24/2024 4:[address] [facility] AST 11(L) 15 - 37 U/L 12/24/2024 4:[address] [facility] ALT 12(L) 14 - 55 U/L 12/24/2024 4:[address] [facility] ALKALINE PHOSPHATASE S/P/B 71 50 - 136 U/L 12/24/2024 4:[address] [facility] ANION GAP 4.2(L) 5 - 15 MMOL/L 12/24/2024 4:[address] [facility] BUN CREATININE RATIO 26.9(H) 6 - 26 12/24/2024 4:[address] [facility] A/G RATIO 1.1 1.0 - 2.0 RATIO 12/24/2024 4:[address] [facility] GFR ESTIMATE >90 >90 ML/MIN/1.7 3 M2 12/24/2024 4:[address] [facility] Comment: NOTE: eGFR is not calculated for patients <18 years of age. This is an estimated GFR calculation using the new CKD EPI creatinine equation without race and so does not require a correction factor for race. This estimated GFR should not be used for calculating drug doses. 12/24/2024 4:10 PM CDT Salo Dillon MD LABORATORY Final Result [facility] [address] [place] [address], * (ABNORMAL) CBC W/DIFF AUTOMATED (12/24/2024 4:10 PM CDT) Only the most recent of7 resultswithin the time period is included. WBC 5.15 4.4 - 11.0 x10'3/uL 12/24/2024 4:[address] [facility] RBC 3.80(L) 4.50 - 5.10 x10'6/uL 12/24/2024 4:[address] [facility] HGB 11.6(L) 12.3 - 15.3 G/DL 12/24/2024 4:[address] [facility] HCT 35.3(L) 35.9 - 44.6 % 12/24/2024 4:[address] [facility] MCV 92.9 80.0 - 96.0 FL 12/24/2024 4:[address] [facility] MCH 30.5 25.3 - 30.9 PG 12/24/2024 4:[address] [facility] MCHC 32.9 31.0 - 34.1 G/DL 12/24/2024 4:[address] [facility] RDW 13.2 12.4 - 15.1 % 12/24/2024 4:[address] [facility] PLT 337 151 - 353 x10'3/uL 12/24/2024 4:[address] [facility] MPV 9.6 9.6 - 12.0 FL 12/24/2024 4:[address] [facility] RBC MORPHOLOGY NORMAL 12/24/2024 4:[address] [facility] PLT MORPH. NORMAL 12/24/2024 4:[address] [facility] WBC MORPHOLOGY NORMAL 12/24/2024 4:[address] [facility] LYMPHOCYTES % 29.5 15.8 - 45.0 % 12/24/2024 4:[address] [facility] NEUTROPHILS % 59.4 42.1 - 71.9 % 12/24/2024 4:[address] [facility] MONOCYTES % 8.7 5.7 - 12.5 % 12/24/2024 4:[address] [facility] EOSINOPHILS 1.2 0.0 - 5.6 % 12/24/2024 4:[address] [facility] BASOPHILS 1.0 0.0 - 1.3 % 12/24/2024 4:[address] [facility] ABS. NEUTROPHILS 3.06 1.40 - 6.00 x10'3/uL 12/24/2024 4:[address] [facility] IMMATURE GRANS % 0.2 0.0 - 0.5 % 12/24/2024 4:[address] [facility] ABS. LYMPHOCYTES 1.52 0.80 - 4.70 x10'3/uL 12/24/2024 4:[address] [facility] 12/24/2024 4:10 PM CDT us Salo Dillon MD LABORATORY Final Result [facility] [address] [place] [address], [place] [phone] * TROPONIN, QUANT (12/24/2024 4:10 PM CDT) Only the most recent of4 resultswithin the time period is included. TROPONIN I HIGH SENSITIVITY 6 0 - 50 ng/L 12/24/2024 4:[address] [facility] Comment: HIGH DOSES OF BIOTIN, TROPONIN-SPECIFIC AUTOANTIBODIES, AND ANTIBODY THERAPY CONTAINING HAMA MAY INTERFERE WITH THIS TEST RESULT. CORRELATION TO CLINICAL HISTORY AND PRESENTATION RECOMMENDED. 12/24/2024 4:10 PM CDT us Salo Dillon MD LABORATORY Final Result [facility] [address] [place] [address], [place] [phone] * LIPASE (12/24/2024 4:10 PM CDT) Only the most recent of2 resultswithin the time period is included. [facility] LIPASE 63 16 - 77 UNITS/L 12/24/2024 4:[address] [facility] 12/24/2024 4:10 PM CDT Salo Dillon MD LABORATORY Final Result Performing Organization Address City/[facility]/ZIP Co de Phone Number [facility] [address] [place] [address], [place] [phone] * D-DIMER, QUANTITATIVE (12/18/2024 12:00 AM CDT) [facility] D-DIMER 271 0 - 500 ng{FEU}/mL 12/18/2024 1:02 AM CDT [facility] EXCLUSION STATEMENT 12/18/2024 1:02 AM CDT [facility] Comment: D-Dimer values less [...] 12/18/2024 Billy Mayfield DO LABORATORY Final Result [facility] [address] [place] [address], [place] [phone] * HCG QUANT SERUM - CHORIONIC GONADOTROPIN () (12/18/2024 12:00 AM CDT) HCG QUANTITATIVE <1 MIU/ML 12/19/19 1:07 AM CDT [facility] Comment: <5 IS NEGATIVE 5-25 IS BORDERLINE >25 IS POSITIVE ASSAY PERFORMED BY CHEMILUMINESCENCE METHODOLOGY USING SIEMENS DIMENSION VISTA REAGENT. PATIENT RESULTS DETERMINED BY ASSAYS USING DIFFERENT MANUFACTURERS FOR METHODS MAY NOT BE COMPARABLE. 12/18/2024 Emily Pineda Antonieta MARTINEZ LABORATORY Final Result [facility] [address] [place] [address], [place] [phone] * CT HEAD WO CON (10/18/2024 8:19 PM CDT) Anatomical Region Laterality Modality Head Computed Tomogra phy 10/18/2024 8:20 PM CDT Impressions 10/18/2024 8:22 PM CDT IMPRESSION: No acute intracranial abnormalities identified. Referred By: Interpreted By: Gaurav Damon DO, 10/18/2024 8:20 PM Narrative 10/18/2024 8:22 PM CDT [place] [address] EXAMINATION: CT head without contrast HISTORY: Confusion. [...] Procedure Note Gaurav Damon DO - 10/18/2024 [facility] [address] [place], [place] [address] EXAMINATION: CT head without contrast HISTORY: Confusion. [...] URINE CLEAN CATCH 10/18/2024 4:30 PM CDT [facility] SPECIAL REQUESTS NO SPECIAL REQUEST 10/18/2024 4:30 PM CDT [facility] CULTURE RESULT POLYMICROBIAL GROWTH CONSISTENT WITH NORMAL GENITAL CAM. SUSCEPTIBILITIES NOT ROUTINELY PERFORMED. 10/19/2024 8:45 AM CDT [facility] URINE SPECIMEN OBTAINED BY CLEAN CATCH PROCEDURE / Unknown 10/18/2024 4:30 PM CDT 10/18/2024 8:10 PM CDT us Yovana Zamora MD MICROBIOLOGY - GENERAL ORDERA BLES Final Result [facility] [address] [place] [address], * RESPIRATORY PCR PANEL 2 (10/18/2024 12:33 PM CDT) Pathologist [facility] ADENOVIRUS PCR (RESP) NOT DETECTED NOT DETECTED 10/18/2024 1:50 PM CDT [facility] CORONAVIRUS 229E PCR (RESP) NOT DETECTED NOT DETECTED 10/18/2024 1:50 PM CDT [facility] CORONAVIRUS HKU1 PCR (RESP) NOT DETECTED NOT DETECTED 10/18/2024 1:50 PM CDT [facility] CORONAVIRUS NL63 PCR (RESP) NOT DETECTED NOT DETECTED 10/18/2024 1:50 PM CDT [facility] CORONAVIRUS OC43 PCR (RESP) NOT DETECTED NOT DETECTED 10/18/2024 1:50 PM CDT [facility] METAPNEUMOVIRUS PCR (RESP) NOT DETECTED NOT DETECTED 10/18/2024 1:50 PM CDT [facility] RHINOVIRUS/ENTEROV IRUS PCR (RESP) NOT DETECTED NOT DETECTED 10/18/2024 1:50 PM CDT [facility] INFLUENZA A PCR (RESP) NOT DETECTED NOT DETECTED 10/18/2024 1:50 PM CDT [facility] INFLUENZA B PCR (RESP) NOT DETECTED NOT DETECTED 10/18/2024 1:50 PM CDT [facility] PARAINFLUENZA 1 PCR (RESP) NOT DETECTED NOT DETECTED 10/18/2024 1:50 PM CDT [facility] PARAINFLUENZA 2 PCR (RESP) NOT DETECTED NOT DETECTED 10/18/2024 1:50 PM CDT [facility] PARAINFLUENZA 3 PCR (RESP) NOT DETECTED NOT DETECTED 10/18/2024 1:50 PM CDT [facility] PARAINFLUENZA 4 PCR (RESP) NOT DETECTED NOT DETECTED 10/18/2024 1:50 PM CDT [facility] RSV PCR (RESP) NOT DETECTED NOT DETECTED 10/18/2024 1:50 PM CDT [facility] B PARAPERTUSIS PCR (RESP) NOT DETECTED NOT DETECTED 10/18/2024 1:50 PM CDT [facility] BORDETELLA PERTUSSIS PCR (RESP) NOT DETECTED NOT DETECTED 10/18/2024 1:50 PM [facility] CHLAMYDOPHILA PNEUMONIAE PCR (RESP) NOT DETECTED NOT DETECTED 10/18/2024 1:50 PM [facility] MYCOPLASMA PNEUMONIAE PCR (RESP) NOT DETECTED NOT DETECTED 10/18/2024 1:50 PM [facility] CORONAVIRUS SARS COV 2 PCR (RESP) NOT DETECTED NOT DETECTED 10/18/2024 1:50 PM [facility] NASOPHARYNGEAL SWAB / Unknown 10/18/2024 12:33 PM CDT us Yovana Zamora MD MICROBIOLOGY - GENERAL ORDERA BLES Final Result [facility] [address] [place] [address], * (ABNORMAL) URINALYSIS, AUTO, COMPLETE (10/18/2024 11:00 AM CDT) SPECIMEN TYPE URINE CLEAN CATCH 10/18/2024 11:01 AM [facility] COLOR (U) DARK BROWN 10/18/2024 11:23 AM [facility] TRANSPARENCY TURBID 10/18/2024 11:23 AM [facility] SPECIFIC GRAVITY (U) 1.034(H) 1.001 - 1.030 10/18/2024 11:23 AM [facility] U PH 5.5 5.0 - 9.0 10/18/2024 11:23 AM [facility] LEUKOCYTES (U) 250(A) NEGATIVE 10/18/2024 11:23 AM [facility] NITRITES NEGATIVE NEGATIVE 10/18/2024 11:23 AM [facility] PROTEIN RANDOM (U) 100(H) <30 MG/DL 10/18/2024 11:23 AM [facility] GLUCOSE (U) NORMAL NORMAL MG/DL 10/18/2024 11:23 AM [facility] KETONES MG/DL (U) 60(A) NEGATIVE MG/DL 10/18/2024 11:23 AM [facility] UROBILINOGEN NORMAL NORMAL MG/DL 10/18/2024 11:23 AM [facility] BILIRUBIN (U) NEGATIVE NEGATIVE MG/DL 10/18/2024 11:23 AM [facility] BLOOD (U) 3+(A) NEGATIVE 10/18/2024 11:23 AM [facility] MUCUS MANY /LPF 10/18/2024 11:23 AM [facility] WBC/HPF >100(H) <6 /HPF 10/18/2024 11:23 AM [facility] RBC/HPF >100(H) <6 /HPF 10/18/2024 11:23 AM [facility] SQUAMOUS EPITHELIALS MODERATE /HPF 10/18/2024 11:23 AM [facility] URINE SPECIMEN OBTAINED BY CLEAN CATCH PROCEDURE / Unknown 10/18/2024 11:00 AM CDT us Yovana Zamora MD URINE ORDERABLES Final Result Performing Organization Address [facility] Co de Phone Number [facility] [address] [place] [address], [place] [phone] * (ABNORMAL) MAGNESIUM (10/18/2024 10:45 AM CDT) MAGNESIUM 2.5(H) 1.8 - 2.4 MG/DL 10/18/2024 12:06 PM CDT [facility] 10/18/2024 10:4 5 AM CDT us Yovana Zamora MD LABORATORY Final Result Performing Organization Address [facility] Co de Phone Number [facility] [address] [place] [address], [place] [phone] * (ABNORMAL) SALICYLATE (10/18/2024 10:45 AM CDT) SALICYLATES 2.0(L) 2.8 - 20.0 MG/DL 10/18/2024 11:14 AM CDT [facility] Comment: THERAPEUTIC: 2.8-20.0 Toxic Level: >=30 10/18/2024 10:4 5 AM CDT us Yovana Zamora MD LABORATORY Final Result Performing Organization Address [facility]/ZIP Co de Phone Number [facility] [address] [place] [address], [place] [phone] * CK (CPK) (10/18/2024 10:45 AM CDT) CPK 88 21 - 215 U/L 10/18/2024 12:06 PM CDT [facility] 10/18/2024 10:4 5 AM CDT Yovana Zamora MD LABORATORY Final Result Performing Organization Address [facility]/ZIP Co de Phone Number [facility] [address] [place] [address], * THYROID STIM HORMONE, TSH (10/18/2024 10:17 AM CDT) TSH 1.380 0.358 - 3.74 uIU/ML 10/18/2024 11:12 AM CDT [facility] Comment: HIGH DOSES OF BIOTIN MAY INTERFERE WITH THIS TEST RESULT. CORRELATION TO CLINICAL HISTORY AND PRESENTATION RECOMMENDED. 10/18/2024 10:1 7 AM CDT Yovana Zamora MD LABORATORY Final Result Performing Organization Address [facility] Co de Phone Number [facility] [address] [place] [address], * ETHANOL (10/18/2024 10:17 AM CDT) Only the most recent of2 resultswithin the time period is included. ALCOHOL S/P/B <0.003 <0.003 G/DL 10/18/2024 11:12 AM CDT [facility] 10/18/2024 10:1 7 AM CDT Yovana Zamora MD LABORATORY Final Result Performing Organization Address [facility]/ZIP Co de Phone Number [facility] [address] [place] [address], [place] [phone] * (ABNORMAL) ACETAMINOPHEN (10/18/2024 10:17 AM CDT) ACETAMINOPHEN S/P/B <2.0(L) 10.0 - 30.0 MCG/ML 10/18/2024 11:12 AM CDT [facility] Comment: THERAPEUTIC: 10-30 TOXIC: >200 10/18/2024 10:1 7 AM CDT us Yovana Zamora MD LABORATORY Final Result [facility] [address] [place] [address], * (ABNORMAL) BASIC METABOLIC PANEL (10/17/2024 4:12 [...] - 99 MG/DL 10/17/2024 5:06 PM CDT [facility] Comment: FASTING GLUCOSE 100 TO 125 MG/DL IS CONSISTENT WITH IMPAIRED FASTING GLUCOSE. FASTING GLUCOSE >125 MG/DL IS CONSISTENT WITH DIABETES. RANDOM GLUCOSE >200 MG/DL WITH HYPERGLYCEMIC SYMPTOMS IS CONSISTENT WITH DIABETES. PER ADA GUIDELINES BUN 18 6 - 24 MG/DL 10/17/2024 5:06 PM CDT [facility] CREATININE S/P/B 1.18(H) 0.55 - 1.02 MG/DL 10/17/2024 5:06 PM CDT [facility] CALCIUM S/P/B 10.0 8.4 - 10.5 MG/DL 10/17/2024 5:06 PM CDT [facility] ANION GAP 10.0 5.0 - 15.0 MMOL/L 10/17/2024 5:06 PM CDT [facility] OSMOLALITY (CALC) 292 MOSM/KG 025 5:06 PM CDT [facility] Comment:REFERENCE RANGE NOT ESTABLISHED GFR ESTIMATE 59(L) >89 ML/MIN/1. 73 M2 10/17/2024 5:06 PM CDT [facility] GFR NOTES GFR REFERENCE S: 10/17/2024 5:06 PM CDT [facility] Comment: THE ESTIMATED GFR [...] CDT Familia Carter MD LABORATORY Final Result [facility] [place] [address], * CORONAVIRUS (COVID-19) ANTIGEN (10/17/2024 4:05 PM [...] Result [facility] [address] [place] [address], * HEPATITIS PANEL,ACUTE (10/13/2023 3:24 AM CDT) HEPATITIS B SURFACE AG NON-REACT VARGHESE NON-REACT VARGHESE 10/13/2023 1:41 PM CDT [facility] Comment:HBsAg NOT DETECTED. HEP B CORE IGM NON-REACT VARGHESE NON-REACT VARGHESE 10/13/2023 1:41 PM CDT [facility] Comment: IgM ANTI HBc NOT DETECTED. DOES NOT EXCLUDE THE POSSIBILITY OF EXPOSURE TO OR INFECTION WITH HBV. NO RETEST REQUIRED. HIGH DOSES OF BIOTIN MAY INTERFERE WITH THIS TEST RESULT. CORRELATION TO CLINICAL HISTORY AND PRESENTATION RECOMMENDED. HAV IGM NON-REACT VARGHESE NON-REACT VARGHESE 10/13/2023 1:41 PM CDT [facility] Comment: IgM ANTI HAV NOT DETECTED. DOES NOT EXCLUDE THE POSSIBILITY OF EXPOSURE TO OR INFECTION WITH HAV. LEVELS OF IgM ANTI HAV MAY BE BELOW THE CUTOFF IN EARLY INFECTION. HEPATITIS C AB NON-REACT VARGHESE NON-REACT VARGHESE 10/13/2023 1:42 PM CDT [facility] Comment: ANTIBODIES TO HCV NOT DETECTED. DOES NOT EXCLUDE THE POSSIBILITY OF EXPOSURE TO HCV. 10/13/2023 3:24 AM CDT us Tenisha Cheema MD LABORATORY Final Result Performing Organization Address [facility]/ZIP Co de Phone Number [facility] [address] [place] [phone], [phone] from Last 3 Months or Most Recently Relevant to Health Maintenance Insurance [employer] Advance Directives Documents on File Type Date Recorded Patient Pharmaceutical Botanist Expl anation Advance Directives and Living Will 05/10/2015 12:00 AM [employer] Advance Directives and Living Will 08/06/2013 12:00 AM [employer] Advance Directives and Living Will 12/28/2012 12:00 AM [employer] * Full Code (Latest Code Status on File) Date Activated Date Inactivated Comments 10/13/2023 5:53 AM 10/14/2023 10:50 AM Care Teams Big Data Developer Relationship Specialty Start Date End Date DelisaMayCHIP [address] [place] [address] PCP - General Nurse Practitioner Family 12/23/24
--- NOTE | 2025-01-14 07:24 | ED.ABDPAIN ---
HPI - Abdominal Pain General Chief Complaint: Abdominal Pain Stated Complaint: abdominal pain Time Seen by Provider: 01/14/25 06:07 History of Present Illness HPI narrative: 44-year-old white female with long history of polysubstance abuse including meth, chronic abdominal pain, chronic pain syndrome, irritable bowel syndrome, bipolar disorder, anxiety, reports she just got out of rehab from [facility] 2 days ago and now has pain in her abdomen kind of all over, reports that is so intense she just can not stand. She is vague about its origin, reports that it started hurting yesterday, that she did have some brief nausea and vomiting, and the pain has been unrelenting. She denies having abdominal pain in the past, denies any abdominal pain workups, denies any abdominal CT scans, denies any ultrasounds, reports this is the 1st time she has had abdominal pain. I was unable to get additional information on her abdominal pain, she was evasive as to when it started, how long as ais lasted has. She denies fever chills, sinus drainage, sore throat, cough, chest pain. Denies diarrhea or constipation, denies dysuria urgency or frequency. She would not tell me what substance he was in rehab for, initially said that she was mistaken that she was only in for mental health purposes, eventually acknowledge that it was for meth. Related Data Home Medications ?Medication ?Instructions ?Recorded ?Confirmed ?Last Taken ?Type aripiprazole 5 mg tablet (Abilify) 5 mg PO DAILY 05/17/24 12/15/24 Unknown History lorazepam 0.5 mg tablet (Ativan) 0.5 mg PO Q6H PRN anxiety 05/17/24 12/15/24 Unknown History buprenorphine 8 mg-naloxone 2 mg 1 tablet sublingual DAILY 12/15/24 12/21/24 Unknown History sublingual tablet Allergies Allergy/AdvReac Type Severity Reaction Status Date / Time Penicillins Allergy Severe Difficulty Verified 01/14/25 06:12 Swallowing codeine AdvReac Swelling Verified 01/14/25 06:12 Review of Systems Review of Systems: ROS is negative except as in HPI. Please note patient is a vague and evasive historian, not sure how reliable her history or ROS is. [facility] Past Medical History Medical History Drug abuse Tooth decay Surgical History Surgical History History of x3 Family History Family History Father No problems noted. Father Lung cancer Mother Heart disease Social History Social History Years smoked: 20 Smoking status: Current every day smoker Tobacco type: cigarettes Second hand tobacco smoke exposure: Yes Alcohol intake: former Substance use: former Substance use type: methamphetamine Gender identity (if verbalized by the patient): Female Spiritual care concerns: No Exam Narrative: Awake, alert, oriented x3, anxious, tweaking, appears much older than her stated age, extensive could skin changes consistent with heavy tobacco use, heavy alcohol use, poor dentition consistent with longstanding meth use She does not appear toxic, and as noted above is a very sonny a Sieve and inconsistent historian, half-numerous clarifying questions, and the vast majority this time will not get a coherent answer Const: General: cooperative, healthy appearing, comfortable, no acute distress, well developed, alert, awake and Physically active Orientation/consciousness: patient oriented x3 HENMT: Head: normal to inspection, normocephalic and atraumatic Ears: hearing grossly normal bilaterally and external ears normal Face/Nose/Sinus: Normal external nose present, Normal nares present, Normal nasal mucous membranes and turbinates present and normal facial exam Face and sinus: normal facial exam Mouth: Yes Normal oral and palatal mucosa present, Yes lip normal, Yes tongue normal, Yes oropharynx normal and Yes moist mucous membranes Teeth and gingiva: dentition normal Throat: posterior oropharynx normal and tonsils normal ( erythematous) Eyes: General: appearance normal, both eyes and all related structures Alignment and Position: alignment normal and position normal Periorbital: periorbital findings normal Eyelids: eyelids normal Conjunctivae: conjunctivae normal Sclera: sclerae normal Cornea: corneas normal Pupils: Equal, round and reactive pupils present EOM: EOMs intact bilaterally Neck: Neck: normal visual inspection, full ROM and no lymphadenopathy Chest: Chest palpation & inspection: normal inspection of the chest Resp: Effort & Inspection: normal respiratory effort, able to speak in complete sentences, no audible wheezes, no respiratory distress and no use of accessory muscles Auscultation: clear to auscultation bilaterally Cardio: Jugular venous distension: no JVD Rate: regular rate Rhythm: regular rhythm GI: Inspection: normal to inspection GI Palp: No abdominal tenderness, No Tenderness to palpation present (GI), No Guarding due to palpation present (GI), No No hepatosplenomegaly present, No Palpable mass present and No Rebound tenderness present Skin: General skin exam: normal color, no rashes or lesions noted, elasticity normal and turgor normal Neuro: General: patient oriented x3, gait normal, tone normal and moves all extremities Cranial nerves: Yes CN's II-XII intact bilaterally, Yes Equal, round and reactive pupils present and Yes Bilaterally intact EOM present Speech: normal speech Motor exam (neuro): 5/5 motor strength present throughout and Normal motor muscle tone present throughout Sensory Exam: normal sensation Extrem: General: normal to inspection, normal exam except as noted and no pedal edema Psych: Appearance: grossly normal and well kempt Mental Status: mental status grossly normal Speech and movement: Normal speech and movement present Affect: normal affect Attitude: cooperative Thought process: Normal thought process present Course Course Emergency Course: Differential diagnosis includes but is not limited to her esophagus, gastritis, gastroenteritis, enteritis, colitis, diverticulitis, constipation, gallbladder disease, pancreatitis, cannabis hyperemesis syndrome, substance abuse, UTI, dehydration, electrolyte disorder, malingering, manipulative behavior, drug-seeking behavior Abdominal pain labs ordered including urine, urine drug screen, lipase, CBC, CMP, UA, test I did a very thorough review of her past medical records and she has had 8 abdominal pelvic CAT scans in the past year, as well as several chest CT scans. She has also had numerous x-rays, CTs of her spine, MRI And on review of the respective for emergency department notes she has numerous visits for abdominal pain nausea and vomiting. When I discussed this discrepancy between her story and her past medical history is documented she adamantly denies that she has been here for abdominal pain, adamantly denies that she has ever have any CT scans of her abdomen and pelvis, adamantly denies the information that I decided to her from her chart. I double-checked her name, her spelling of her name, her date, and the records I reviewed were indeed consistent with her name, date, address, and other identifiers. I gently explained that the medical history I was trying to obtain from her was not passed judgment or supreme court judge her but rather to understand her health so I would understand how to work her up and what medications to use to get her feeling better. She the the launched into an angry tirade that she was just going to go somewhere else if I was not going to do anything for her. I again explained that would evaluate and treat her but I needed to know what her past medical history was. She again insisted that she has not been here for abdominal pain, and says she has not had CAT scans or ultrasounds looking at her abdominal pain, I went and reviewed the chart to confirm that it was the correct chart, notified the patient of that, offered to call the calendar control clerk blood bank to have all the information reviewed, offered to have law enforcement called to discuss the possibility of identity theft as she repeatedly claimed that she had an identical triplet the this had stolen her identity. She angrily [place] out of the emergency department saying she was not going to sign any AMA form. Note as she has left she was walking very quickly, stepping very strongly and soundly, and made no efforts to protect her abdominal pain. AMA discharge Medical decision making complexity in risk was moderate due to the extensive amount of time I spent attempting history, explaining the importance of it, and extensive review of old charts, again explaining the importance of accurate history, then further time dealing with her as she left AMA. Vital Signs Vital signs: Vital Signs Temperature 35.9 C L 01/14/25 06:05 Pulse Rate 75 01/14/25 06:05 Respiratory Rate 16 01/14/25 06:05 Blood Pressure 137/73 01/14/25 06:05 Pulse Oximetry 100 01/14/25 06:05 Oxygen Delivery Room Air 01/14/25 06:05 Temperature 35.9 C L 01/14/25 06:05 Pulse Rate 75 01/14/25 06:05 Respiratory Rate 16 01/14/25 06:05 Blood Pressure 137/73 01/14/25 06:05 Pulse Oximetry 100 01/14/25 06:05 Oxygen Delivery Room Air 01/14/25 06:05 Discharge Plan Discharge Clinical Impression: History of noncompliance with medical treatment, Polysubstance abuse, Manipulative behavior Abdominal pain Qualifiers: Abdominal location: generalized Qualified Code(s): R10.84 - Generalized abdominal pain Nausea & vomiting Qualifiers: Vomiting type: unspecified Qualified Code(s): R11.2 - Nausea with vomiting, unspecified Bipolar disorder Qualifiers: Active/Remission status: remission status unspecified Qualified Code(s): F31.9 - Bipolar disorder, unspecified Patient Disposition: Left Against Medical Advice Condition: Stable Additional Instructions: Patient left without instructions Patient Language: Croatian Prescriptions: No Action aripiprazole [Abilify] 5 mg tablet 5 mg PO DAILY lorazepam [Ativan] 0.5 mg tablet 0.5 mg PO Q6H PRN (Reason: anxiety) bupropion HCl [Wellbutrin SR] 150 mg tablet sustained-release 12 hr 150 mg PO QAM Qty: 30 0RF buprenorphine-naloxone 8-2 mg tablet, sublingual 1 tablet sublingual DAILY dicyclomine 20 mg tablet 20 mg PO QID Qty: 30 0RF hydroxyzine HCl 50 mg tablet 50 mg PO QID PRN (Reason: anxiety) Qty: 30 0RF Follow-up/Referrals: UNKNOWN,DOCTOR [Primary Care Provider]
--- NOTE | 2025-01-18 12:23 | PC.NURSE ---
PRELIMINARY BLOOD CULTURE REPORT; NO GROWTH IN 24 HOURS.
--- NOTE | 2025-01-18 12:24 | PC.NURSE ---
PRELIMINARY BLOOD CULTURE REPORT; NO GROWTH IN 24 HOURS.
--- NOTE | 2025-01-22 12:24 | PC.NURSE ---
blood final no growth
== END 2025-01-14 06:57 | disposition left against medical advice (07) ==
LOC: CHSED 06:54
PROVIDERS: Emergency Provider Emergency Medicine
DX: F31.9 Bipolar disorder, unspecified (principal); F19.10 Other psychoactive substance abuse, uncomplicated; F91.8 Other conduct disorders; R10.84 Generalized abdominal pain; R11.2 Nausea with vomiting, unspecified; F17.210 Nicotine dependence, cigarettes, uncomplicated; Z91.148 Patient's other noncompliance with medication regimen for other reason
CPT/HCPCS: 99281

== ENCOUNTER 2025-01-14 18:06 | Emergency (ER) | payer OTHER, SELFPAY ==
--- NOTE | ~2025-01-14 | XR_ITS ---
EXAMINATION: XR chest 1V portable COMPARISON: No comparisons available. HISTORY: Chest pain/ Shortness of breath FINDINGS: The lungs are clear, no effusion. No pneumothorax. Heart is normal size. Mediastinal and hilar contours are within normal limits. Bony thorax no acute abnormality. Miscellaneous: None Impression: No acute cardiopulmonary abnormality. Reviewed, dictated and finalized at location [facility] Impression: No acute cardiopulmonary abnormality.
--- NOTE | ~2025-01-14 | CT_ITS ---
CT abdomen pelvis w con Clinical History: NON-SPECIFIC ABDOMINAL PAIN X 1 DAY. DIARRHEA. . Comparison: 12/14/2024 Technique: Axial images lung bases to symphysis pubis 100 mL Omnipaque 350 Coronal, sagittal reformats CT images acquired with automatic exposure control for dose reduction DLP: 215 mGy-cm Findings: Lung bases: Clear. Visualized heart and pericardium: Unremarkable. Liver: Enlarged. Steatosis. Gallbladder: Removed. Spleen: Unremarkable. Pancreas: Unremarkable. Adrenal glands: Unremarkable. Kidneys: Right kidney- No hydronephrosis. No renal stones. A few small probable cysts. Left kidney- No hydronephrosis. No renal stones. A few small probable cysts. Distal esophagus/stomach: Unremarkable. Small bowel loops: Normal caliber and wall thickness. Colon: Normal caliber and wall thickness. Normal RLQ appendix. Nodes: No enlarged nodes. Peritoneum: No ascites. No free air. Urinary bladder: Unremarkable. Uterus: Unremarkable. Adnexa: No masses. Bones: No acute bony abnormality. Soft tissues: Unremarkable. Aorta: No aneurysm or dissection. IVC: Unremarkable. Main portal vein/SMV/splenic vein: Patent. IMPRESSION: 1. No acute findings. Reviewed, dictated and finalized at location R. PROJECT MANAGER IMPRESSION: 1. No acute findings.
--- OUTSIDE RECORDS SUMMARY | 2025-01-14 18:08 | XMS_ITS | Encounter Summary ---
Author Organization [facility] Address [facility]ly [facility] [place] [address] Care Team Providers Care Supervisor Dry Cleaning Name Role Phone None, Provider Primary Care Provider Diana HerculesMay [facility] Primary Care Provider [phone] Encounter Details Date Type Department Care Team (Late st Contact Info) Description 07/31/2018 Abstract SFL CONVERSION [address] [place] [address] , Generic Conversion, Social History Tobacco Use Types Packs/Day Years Used Date Smoking Tobacco: Never Assessed Comments Unknown Sex and Gender Information Value Date Recorded Sex Assigned at Female 10/17/2024 3:24 PM CDT Legal Sex Female 11:36 PM CDT Gender Identity Female 12/25/2024 10:22 PM MANAGER UTILITY Sexual Orientation Straight 12/25/2024 10 :22 PM MANAGER UTILITY documented as of this encounter Plan of Treatment Not on file documented as of this encounter Visit Diagnoses Not on filedocumented in this encounter Additional Health Concerns Infection Onset Date Last Indicated Resolved Time COVID-19 Rule Out 10/17/2024 10/17/2024 10/17/2024 5:06 PM CDT Respiratory Rule Out 10/18/2024 10/18/2024 025 1:50 PM CDT documented as of this encounter Care Teams Supervisor Dry Cleaning Relationship Specialty Start Date End Date None, Provider, PCP - General UNKNOWN PHYSICIAN SPECIALTY 07/13/23 DelisaMay, LEAD WELDER [address] [place] [address] PCP - General Nurse Practitioner Family 12/23/24 documented as of this encounter
--- OUTSIDE RECORDS SUMMARY | 2025-01-14 18:08 | XMS_ITS | Clinical Summary ---
Author Organization [facility] Address [address] [facility] [place] [address] Care Team Providers Care Smokehouse Worker Name Role Phone Mario Logan MD Primary Care Provider Source Comments [facility],non-owned Affiliates and Associated Physician Practices is amultiple site organization consisting of ambulatory clinics and hospital sitesin [place], [place], [place] and [place]. This disclosure is being madepursuant to the Care Everywhere program and may not contain all information available regarding this patient. Last updated 17.[facility] Allergies Active Allergy Reactions Criticality Noted Date [...] naloxone HCl (NARCAN) 4 MG/0.1ML nasal spray [place] 1 spray into the nose as needed [...] migh t be different from the original. [id number] Problem Noted Date Diagnosed Date Non-reactive NST [...] 05/30/04: neg 2000: CRISTIAN 3 s/p LEEP [place] Evaluate anatomy not seen on prior sonogram [...] on file Legal Sex Female 7:09 AM CERTIFIED SKI PATROLLER Gender Identity Not on file Sexual Orientation [...] P24 AG PANEL Routine 03/10/2019 1:24 PM CERTIFIED SKI PATROLLER Supervision of high risk in second trimester PAP LB HPV HR DNA Routine 11/11/2018 12: 09 PM CDT Cervical cancer screening HEPATITIS C ANTIBODY Routine 11/11/2018 12:07 PM CDT Supervision of high risk , antepartum from Last 3 Months or Most Recently Relevant to Health Maintenance Results * HIV-1 HIV-2 ANTIBODY + HIV P24 AG PANEL (03/10/2019 1:24 PM CERTIFIED SKI PATROLLER) HIV1/2 Ab + P24 Ag Non Reactive Non Reactive 03/10/2019 2:57 PM CERTIFIED SKI PATROLLER [facility] Blood BLOOD SPECIMEN / Unknown Venipuncture / Unknown 03/10/2019 1:24 PM CERTIFIED SKI PATROLLER 03/10/2019 1:49 PM CERTIFIED SKI PATROLLER Narrative [facility] - 03/10/2019 2:57 PM CERTIFIED SKI PATROLLER No Laboratory evidence of HIV infection. us Ivana Thomas WEDDING MAKEUP ARTIST-[employer] [facility] - CHEMISTRY ORDERAB LES Final Result [facility] [address] [place] [address] * PAP LB HPV HR DNA (11/11/2018 12:09 PM CDT) Diagnosis Comment 11/15/2018 8:07 PM CDT [facility] ([facility]) Comment:NEGATIVE FOR INTRAEP ITHELIAL LESION OR MALIGNANCY. Specimen Adequacy Comment 019 8:07 PM CDT [facility] ([facility]) Comment: Satisfactory for evaluation. No endocervical component is identified. An endocervical component is not commonly seen in the patient. Performed by Comment 11/15/2018 8:07 PM CDT [facility] ([facility]) Comment:Bernarda Hutchins Leather Scrubber (ASCP) Comment . 11/15/2018 8:07 PM CDT [facility] ([facility]) Note Comment 11/15/2018 8:07 PM CDT [facility] ([facility]) Comment: The Pap smear is a screening test designed to aid in the detection of premalignant and malignant conditions of the uterine cervix. It is not a diagnostic procedure and should not be used as the sole means of detecting cervical cancer. Both false-positive and false-negative reports do occur. Human papillomavirus High Risk Negative Negative 11/15/2018 8:07 PM CDT [facility] ([facility]) Comment: This high-risk HPV test detects thirteen high-risk types (16/18/31/33/35/39/45/51/52/56/58/59/68) without differentiation. Pathology/Cytolo gy ENTIRE ENDOCERVIX / Unknown Collection / Unknown 11/11/2018 12:09 PM CDT 11/11/2018 12:27 PM CDT Narrative [facility] ([facility]) - 11/15/2018 8:07 PM CDT Performed at: 01 - [address] [id number] Chief Chemist: Onelia Barbosa MD, Phone: [phone] Performed at: - [facility] [id number] Chief Chemist: Onelia Barbosa MD, Phone: [phone] Specimen Comment: Source.............Endocervix Specimen Comment: LMP / Prev Treat...Conization;Oxbow / BX Specimen Comment: Other.............. Specimen Comment: No. of containers..01 ThinPrep Vial Helen Zurita WEDDING MAKEUP ARTIST-[facility] - PATHOLOGY/CYTOLO GY ORDERABLES Final Result [facility] ([facility]) [address] [place] [address] * HEPATITIS C ANTIBODY (11/11/2018 12:07 PM CDT) HCV Antibody Screen Non Reactive Non Reactive 11/11/2018 1:55 PM CDT [facility] HCV S/C Ratio 0.19 0.00 - 0.79 11/11/2018 1:55 PM CDT [facility] Comment: Gldsen-at-kxpvfc ratio (S/CO) <0.80: Non Reactive Blood BLOOD SPECIMEN / Unknown Venipuncture / Unknown 11/11/2018 12:07 PM CDT 11/11/2018 12:56 PM CDT Narrative [facility] - 11/11/2018 1:55 PM CDT Non Reactive - Antibodies to Hepatitis C virus (HCV) were not detected, result does not exclude early acute HCV infection. Helen Zurita [facility] - CHEMISTRY ORDERA BLES Final Result Performing Organization Address [facility] Co de Phone Number [facility] [address] [place] [address] from Last 3 Months or Most Recently Relevant to Health Maintenance Insurance [facility] Advance Directives * Full Code (Latest [...] 11:00 AM 03/17/2019 7:31 PM Care Teams Smokehouse Worker Relationship Specialty Start Date End Date Mario Logan MD [address] [place] [phone] PCP - General 05/24/19
--- OUTSIDE RECORDS SUMMARY | 2025-01-14 18:08 | XMS_ITS | Clinical Summary ---
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 Phone Delisa, May [facility] Primary Care Provider [phone] Allergies Active Allergy Reactions Criticality Noted Date [...] Department Care Team Description 12/25/2024 10:14 PM TREKKING GUIDE - 12/26/2024 11:40 AM [facility] Emergency [facility] Emergency Room [address] [place] [id number] Rl Virgen MD Baum, Jamie L, MD Chest Pain Discharge Disposition: Left Against Medical Advice 12/25/2024 7:26 PM TREKKING GUIDE - 12/25/2024 9:07 PM TREKKING GUIDE Emergency [facility] Emergency Room [address] [place] [phone] Rl Virgen MD Chest Pain Discharge Disposition: Home or Self Care (Routine Discharge) 12/25/2024 Travel 12/24/2024 3:59 PM CDT - 12/24/2024 8:20 PM CDT Emergency [facility] Emergency Room [address] [place] [address] Salo Dillon MD Palmer, Aunaly E, MD Chest Pain Discharge Disposition: Home or Self Care (Routine Discharge) 12/24/2024 Travel 12/23/2024 2:42 PM CDT - 12/23/2024 4:51 PM CDT Emergency [facility] Emergency Room [address] [place] [address] Salo Dillon MD Chest Pain Discharge Disposition: Home or Self Care (Routine Discharge) 12/23/2024 Travel 12/17/2024 11:53 PM CDT - 12/18/2024 2:43 AM CDT Emergency [facility] Emergency [address] [place] [address] Billy Mayfield DO Chest Pain Discharge Disposition: Home or Self Care (Routine Discharge) 12/17/2024 Travel 12/15/2024 2:10 AM CDT - 12/15/2024 3:41 AM CDT Emergency [facility] [address] [place] [address] Jens Mendoza MD Abdominal Pain Discharge Disposition: Home or Self Care (Routine Discharge) 12/15/2024 Travel 12/14/2024 7:01 PM CDT - 12/14/2024 11:09 PM CDT Emergency [facility] [address] [place] [address] Jens Mendoza MD Chest Pain; Shortness Of Breath Discharge Disposition: Home or Self Care (Routine Discharge) 12/14/2024 Travel 10/18/2024 9:46 AM CDT - 10/18/2024 10:30 PM CDT Emergency [facility] [place] [address] Yovana Zamora MD Geldmacher, Kelly J, MD Medical Problem Discharge Disposition: [facility] 10/17/2024 2:59 PM CDT - 10/17/2024 8:00 PM CDT Emergency [facility] [address] [place] [address] Familia Carter MD Medical Problem Discharge Disposition: [...] drink = 0.6 oz pur e alcohol) [facility] Utilities Answer Date Recorded In the past 12 months has e [employer] gas, oil, or water [employer] threatened to shut off services in your [...] CDT Gender Identity Female 12/25/2024 10:22 PM TREKKING GUIDE Sexual Orientation Straight 12/25/2024 10 :22 PM TREKKING GUIDE Last Filed Vital Signs Vital Sign Reading Time Taken Comments Blood Pressure 91/55 12/26/2024 7:00 AM TREKKING GUIDE Pulse 57 12/26/2024 7:00 AM TREKKING GUIDE Temperature 36.5 C (97.7 F) 12/26/2024 7:00 AM TREKKING GUIDE Respiratory Rate 18 12/25/2024 10:18 PM TREKKING GUIDE Oxygen Saturation 97% 12/26/2024 7:00 AM TREKKING GUIDE Inhaled Oxygen Concentration - - Weight 49.9 kg (110 lb) 12/25/2024 10:18 PM TREKKING GUIDE Height 154.9 cm (5' 1) 12/25/2024 10:18 PM TREKKING GUIDE Body Mass Index 20.78 12/25/2024 10:18 PM TREKKING GUIDE Plan of Treatment Health Maintenance Due Date [...] HC URINE TEST STAT 12/25/2024 11:24 PM TREKKING GUIDE DRUG SCREEN RAPID STAT 12/25/2024 11: 24 PM TREKKING GUIDE ECG 12-LEAD Routine 12/25/2024 7:28 PM TREKKING GUIDE CTA CHEST STAT 12/24/2024 5:42 PM CDT [...] (ABNORMAL) DRUG SCREEN RAPID (12/25/2024 11:24 PM TREKKING GUIDE) Only the most recent of3 resultswithin the time period is included. Pathologist [facility] [place] AMPHETAMINE (U) NONE DETECTED NONE DETECTED 12/25/2024 11:45 PM [facility] BARBITURATES SCREEN (U) NONE DETECTED NONE DETECTED 12/25/2024 11:45 PM [facility] BENZODIAZEPINES SCREEN (U) DETECTED(A) NONE DETECTED 12/25/2024 11:45 PM [facility] BUPRENORPHINE SCREEN (U) DETECTED(A) NONE DETECTED 12/25/2024 11:45 PM [facility] COCAINE METABOLITES (U) NONE DETECTED NONE DETECTED 12/25/2024 11:45 PM [facility] METHAMPHETAMINE (U) DETECTED(A) NONE DETECTED 12/25/2024 11:45 PM [facility] METHADONE (U) NONE DETECTED NONE DETECTED 12/25/2024 11:45 PM [facility] OPIATE SCREEN (U) NONE DETECTED NONE DETECTED 12/25/2024 11:45 PM [facility] OXYCODONE SCREEN (U) NONE DETECTED NONE DETECTED 12/25/2024 11:45 PM [facility] PHENCYCLIDINE PCP (U) NONE DETECTED NONE DETECTED 12/25/2024 11:45 PM [facility] CANNABINOIDS SCREEN (U) NONE DETECTED NONE DETECTED 12/25/2024 11:45 PM [facility] TRICYCLIC ANTIDEPRESSANT SCREEN (U) NONE DETECTED NONE DETECTED 12/25/2024 11:45 PM [facility] Comment: NOTE: RESULTS OF [...] URINE SPECIMEN / Unknown 12/25/2024 11:24 PM TREKKING GUIDE Rl Virgen MD URINE ORDERABLES Final Result Performing Organization Address City/[facility]/ZIP Co de Phone Number [facility] [address] [place] [address], [place] [phone] * TEST URINE (12/25/2024 11:24 PM TREKKING GUIDE) Only the most recent of2 resultswithin the time period is included. URINE HCG TEST NEG NEGATIVE 12/25/2024 11:41 PM TREKKING GUIDE [facility] Comment: VERY DILUTE URINE SPECIMENS MAY NOT CONTAIN RAW JUICE WEIGHER LEVELS OF HCG. IF IS STILL SUSPECTED, A SERUM HCG TEST IS RECOMMENDED. URINE SPECIMEN FROM URETHRA / Unknown 12/25/2024 11:24 PM TREKKING GUIDE Rl Virgen MD URINE ORDERABLES Final Result Performing Organization Address [facility] Co de Phone Number [facility] [address] [place] [address], [place] [phone] * ECG 12 lead (12/25/2024 7:28 PM TREKKING GUIDE) Only the most recent of7 resultswithin the time period is included. 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1980 Requested By: RL VIRGEN Order Number: [id number] Reading MD: Bubba Reyes Measurements Intervals [place] Rate: 70 P: 74 MD: 126 QRS: 69 QRSD: 97 T: 62 QT: 374 QTc: 404 Interpretive Statements SINUS RHYTHM Compared to ECG 12/24/2024 16:10:34 Sinus bradycardia no longer present KING GUIDE Procedure Note Bubba Reyes MD - 12/25/2024 [facility] Test Date: 2024-12-25 Pat Name: JJ SLATER Department: 85 Room: EXAM 505 Gender: Female 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 Technically limited evaluation for pulmonary embolism. 2. Stable 9 mm lung nodule. Recommend continued surveillance as above. Referred By: Interpreted By: Everett Peterson MD, 12/24/2024 5:56 PM Narrative 12/24/2024 6:02 PM CDT [facility] [place] [address] Examination: CTA CHEST Clinical history: Chest pain [...] Procedure Note Everett Peterson MD - 12/24/2024 [place] [id number] [facility] [place] [address] Examination: CTA CHEST Clinical history: Chest pain [...] 4:34 PM Narrative 12/24/2024 4:41 PM CDT [facility] [address] [place] [address] Examination: XR CHEST PORTABLE Exam time: 12/24/2024 4:14 PM Clinical history: Chest pain. Comparison: 12/23/2024. Technique: AP portable upright radiograph of the chest. Findings: Normal heart size. Normal distribution of the pulmonary vasculature. No focal parenchymal lung consolidation, pleural effusion, or pneumothorax. No acute osseous findings. Surgical clips noted in the upper abdomen. Procedure Note Juan Alberto Meier MD - 12/24/2024 [facility] [address] [facility] [place] [address] Examination: XR CHEST PORTABLE Exam time: 12/24/2024 [...] - 12.4 SEC 12/24/2024 4:46 PM CDT [facility] INR 1.1 12/24/2024 4:46 PM CDT [facility] Comment: Recommend INR ranges for Oral Anticoagulant Therapy: Mechanical Cardiac Values 2.5-3.5 All others indication 2.0-3.0 12/24/2024 4:10 PM CDT us Salo Dillon MD LABORATORY Final Result [facility] [address] [place] [id number], [place] [phone] * (ABNORMAL) COMPREHENSIVE METABOLIC PANEL (12/24/2024 4:10 PM CDT) Only the most recent of6 resultswithin the time period is included. GLUCOSE 84 70 - 99 MG/DL 12/24/2024 4:35 PM CDT [facility] BUN 21(H) 7 - 18 MG/DL 12/24/2024 4:35 PM CDT [facility] CREATININE S/P/B 0.78 0.55 - 1.02 MG/DL 12/24/2024 4:35 PM CDT [facility] SODIUM S/P/B 139 136 - 145 MMOL/L 12/24/2024 4:35 PM CDT [facility] POTASSIUM S/P/B 4.0 3.5 - 5.1 MMOL/L 12/24/2024 4:35 PM CDT [facility] CHLORIDE S/P/B 103 100 - 108 MMOL/L 12/24/2024 4:35 PM CDT [facility] CO2 31.8 21 - 32 MMOL/L 12/24/2024 4:35 PM CDT [facility] CALCIUM S/P/B 8.5 8.5 - 10.1 MG/DL 12/24/2024 4:35 PM T [facility] BILIRUBIN TOTAL S/P/B 0.5 0.2 - 1.2 MG/DL 12/24/2024 4:35 PM T [facility] TOTAL PROTEIN S/P/B 6.4 6.4 - 8.2 G/DL 12/24/2024 4:35 PM T [facility] ALBUMIN S/P/B 3.4 3.4 - 5.0 G/DL 12/24/2024 4:35 PM T [facility] AST 11(L) 15 - 37 U/L 12/24/2024 4:35 PM CDT [facility] ALT 12(L) 14 - 55 U/L 12/24/2024 4:35 PM CDT [facility] ALKALINE PHOSPHATASE S/P/B 71 50 - 136 U/L 12/24/2024 4:35 PM CDT [facility] ANION GAP 4.2(L) 5 - 15 MMOL/L 12/24/2024 4:35 PM CDT [facility] BUN CREATININE RATIO 26.9(H) 6 - 26 12/24/2024 4:35 PM T [facility] A/G RATIO 1.1 1.0 - 2.0 RATIO 12/24/2024 4:35 PM T [facility] GFR ESTIMATE >90 >90 ML/MIN/1.7 3 M2 12/24/2024 4:35 PM T [facility] Comment: NOTE: eGFR is not calculated for patients <18 years of age. This is an estimated GFR calculation using the new CKD EPI creatinine equation without race and so does not require a correction factor for race. This estimated GFR should not be used for calculating drug doses. 12/24/2024 4:10 PM CDT Salo Dillon MD LABORATORY Final Result [facility] [address] [place] [address], * (ABNORMAL) CBC W/DIFF AUTOMATED (12/24/2024 4:10 PM CDT) Only the most recent of7 resultswithin the time period is included. WBC 5.15 4.4 - 11.0 x10'3/uL 12/24/2024 4:23 PM CDT [facility] RBC 3.80(L) 4.50 - 5.10 x10'6/uL 12/24/2024 4:23 PM CDT [facility] HGB 11.6(L) 12.3 - 15.3 G/DL 12/24/2024 4:23 PM T [facility] HCT 35.3(L) 35.9 - 44.6 % 12/24/2024 4:23 PM CDT [facility] MCV 92.9 80.0 - 96.0 FL 12/24/2024 4:23 PM CDT [facility] MCH 30.5 25.3 - 30.9 PG 12/24/2024 4:23 PM CDT [facility] MCHC 32.9 31.0 - 34.1 G/DL 12/24/2024 4:23 PM T [facility] RDW 13.2 12.4 - 15.1 % 12/24/2024 4:23 PM T [facility] PLT 337 151 - 353 x10'3/uL 12/24/2024 4:23 PM T [facility] MPV 9.6 9.6 - 12.0 FL 12/24/2024 4:23 PM T [facility] RBC MORPHOLOGY NORMAL 12/24/2024 4:23 PM T [facility] PLT MORPH. NORMAL 12/24/2024 4:23 PM T [facility] WBC MORPHOLOGY NORMAL 12/24/2024 4:23 PM CDT [facility] LYMPHOCYTES % 29.5 15.8 - 45.0 % 12/24/2024 4:23 PM CDT [facility] NEUTROPHILS % 59.4 42.1 - 71.9 % 12/24/2024 4:23 PM CDT [facility] MONOCYTES % 8.7 5.7 - 12.5 % 12/24/2024 4:23 PM CDT [facility] EOSINOPHILS 1.2 0.0 - 5.6 % 12/24/2024 4:23 PM CDT [facility] BASOPHILS 1.0 0.0 - 1.3 % 12/24/2024 4:23 PM CDT [facility] ABS. NEUTROPHILS 3.06 1.40 - 6.00 x10'3/uL 12/24/2024 4:23 PM CDT [facility] IMMATURE GRANS % 0.2 0.0 - 0.5 % 12/24/2024 4:23 PM CDT [facility] ABS. LYMPHOCYTES 1.52 0.80 - 4.70 x10'3/uL 12/24/2024 4:23 PM CDT [facility] 12/24/2024 4:10 PM CDT us Salo Dillon MD LABORATORY Final Result [facility] [address] [place] [address], [place] [phone] * TROPONIN, QUANT (12/24/2024 4:10 PM CDT) Only the most recent of4 resultswithin the time period is included. TROPONIN I HIGH SENSITIVITY 6 0 - 50 ng/L 12/24/2024 4:38 PM CDT [facility] Comment: HIGH DOSES OF BIOTIN, TROPONIN-SPECIFIC AUTOANTIBODIES, AND ANTIBODY THERAPY CONTAINING HAMA MAY INTERFERE WITH THIS TEST RESULT. CORRELATION TO CLINICAL HISTORY AND PRESENTATION RECOMMENDED. 12/24/2024 4:10 PM CDT us Salo Dillon MD LABORATORY Final Result [facility] [address] [place] [address], [place] [phone] * LIPASE (12/24/2024 4:10 PM CDT) Only the most recent of2 resultswithin the time period is included. [facility] LIPASE 63 16 - 77 UNITS/L 12/24/2024 4:35 PM CDT [facility] 12/24/2024 4:10 PM CDT Salo Dillon MD LABORATORY Final Result Performing Organization Address City/[facility]/ZIP Co de Phone Number [facility] [address] [place] [address], [place] [phone] * D-DIMER, QUANTITATIVE (12/18/2024 12:00 AM CDT) [facility] D-DIMER 271 0 - 500 ng{FEU}/mL 12/18/2024 1:02 AM CDT [facility] EXCLUSION STATEMENT 12/18/2024 1:02 AM CDT [facility] Comment: D-Dimer values less than [...] 12/18/2024 Billy Mayfield DO LABORATORY Final Result [facility] [address] [place] [address], [place] [phone] [id number] * HCG QUANT SERUM - CHORIONIC GONADOTROPIN () (12/18/2024 12:00 AM CDT) HCG QUANTITATIVE <1 MIU/ML 12/19/19 1:07 AM CDT [facility] Comment: <5 IS NEGATIVE 5-25 IS BORDERLINE >25 IS POSITIVE ASSAY PERFORMED BY CHEMILUMINESCENCE METHODOLOGY USING SIEMENS DIMENSION [facility]ISTA REAGENT. PATIENT RESULTS DETERMINED BY ASSAYS USING DIFFERENT MANUFACTURERS FOR METHODS MAY NOT BE COMPARABLE. 12/18/2024 Emily Pineda Antonieta MARTINEZ LABORATORY Final Result [facility] [address] [place] [address], [place] [phone] [id number] * CT HEAD WO CON (10/18/2024 8:19 PM CDT) Anatomical Region Laterality Modality Head Computed Tomogra phy 10/18/2024 8:20 PM CDT Impressions 10/18/2024 8:22 PM CDT IMPRESSION: No acute intracranial abnormalities identified. Referred By: Interpreted By: Gaurav Damon DO, 10/18/2024 8:20 PM Narrative 10/18/2024 8:22 PM CDT [place] [address] EXAMINATION: CT head without contrast HISTORY: Confusion. [...] Procedure Note Gaurav Damon DO - 10/18/2024 [facility] [address] [place], [place] [address] EXAMINATION: CT head without contrast HISTORY: Confusion. [...] URINE CLEAN CATCH 10/18/2024 4:30 PM CDT [facility] SPECIAL REQUESTS NO SPECIAL REQUEST 10/18/2024 4:30 PM CDT [facility] CULTURE RESULT POLYMICROBIAL GROWTH CONSISTENT WITH NORMAL GENITAL CAM. SUSCEPTIBILITIES NOT ROUTINELY PERFORMED. 10/19/2024 8:45 AM CDT [facility] URINE SPECIMEN OBTAINED BY CLEAN CATCH PROCEDURE / Unknown 10/18/2024 4:30 PM CDT 10/18/2024 8:10 PM CDT us Yovana Zamora MD MICROBIOLOGY - GENERAL ORDERA BLES Final Result [facility] [address] [place] [address], * RESPIRATORY PCR PANEL 2 (10/18/2024 12:33 PM CDT) Pathologist [facility] [place] ADENOVIRUS PCR (RESP) NOT DETECTED NOT DETECTED 10/18/2024 1:50 PM CDT [facility] CORONAVIRUS 229E PCR (RESP) NOT DETECTED NOT DETECTED 10/18/2024 1:50 PM CDT [facility] CORONAVIRUS HKU1 PCR (RESP) NOT DETECTED NOT DETECTED 10/18/2024 1:50 PM CDT [facility] CORONAVIRUS NL63 PCR (RESP) NOT DETECTED NOT DETECTED 10/18/2024 1:50 PM CDT [facility] CORONAVIRUS OC43 PCR (RESP) NOT DETECTED NOT DETECTED 10/18/2024 1:50 PM CDT [facility] METAPNEUMOVIRUS PCR (RESP) NOT DETECTED NOT DETECTED 10/18/2024 1:50 PM CDT [facility] RHINOVIRUS/ENTEROV IRUS PCR (RESP) NOT DETECTED NOT DETECTED 10/18/2024 1:50 PM CDT [facility] INFLUENZA A PCR (RESP) NOT DETECTED NOT DETECTED 10/18/2024 1:50 PM CDT [facility] INFLUENZA B PCR (RESP) NOT DETECTED NOT DETECTED 10/18/2024 1:50 PM CDT [facility] PARAINFLUENZA 1 PCR (RESP) NOT DETECTED NOT DETECTED 10/18/2024 1:50 PM CDT [facility] PARAINFLUENZA 2 PCR (RESP) NOT DETECTED NOT DETECTED 10/18/2024 1:50 PM CDT [facility] PARAINFLUENZA 3 PCR (RESP) NOT DETECTED NOT DETECTED 10/18/2024 1:50 PM CDT [facility] PARAINFLUENZA 4 PCR (RESP) NOT DETECTED NOT DETECTED 10/18/2024 1:50 PM CDT [facility] RSV PCR (RESP) NOT DETECTED NOT DETECTED 10/18/2024 1:50 PM CDT [facility] B PARAPERTUSIS PCR (RESP) NOT DETECTED NOT DETECTED 10/18/2024 1:50 PM CDT [facility] BORDETELLA PERTUSSIS PCR (RESP) NOT DETECTED NOT DETECTED 10/18/2024 1:50 PM CDT [facility] CHLAMYDOPHILA PNEUMONIAE PCR (RESP) NOT DETECTED NOT DETECTED 10/18/2024 1:50 PM CDT [facility] MYCOPLASMA PNEUMONIAE PCR (RESP) NOT DETECTED NOT DETECTED 10/18/2024 1:50 PM CDT [facility] CORONAVIRUS SARS COV 2 PCR (RESP) NOT DETECTED NOT DETECTED 10/18/2024 1:50 PM CDT [facility] NASOPHARYNGEAL SWAB / Unknown 10/18/2024 12:33 PM CDT us Yovana Zamora MD MICROBIOLOGY - GENERAL ORDERA BLES Final Result [facility] [address] [place] [address], * (ABNORMAL) URINALYSIS, AUTO, COMPLETE (10/18/2024 11:00 AM CDT) SPECIMEN TYPE URINE CLEAN CATCH 10/18/2024 11:01 AM CDT [facility] COLOR (U) DARK BROWN 10/18/2024 11:23 AM CDT [facility] TRANSPARENCY TURBID 10/18/2024 11:23 AM CDT [facility] SPECIFIC GRAVITY (U) 1.034(H) 1.001 - 1.030 10/18/2024 11:23 AM [facility] U PH 5.5 5.0 - 9.0 10/18/2024 11:23 AM [facility] LEUKOCYTES (U) 250(A) NEGATIVE 10/18/2024 11:23 AM [facility] NITRITES NEGATIVE NEGATIVE 10/18/2024 11:23 AM [facility] PROTEIN RANDOM (U) 100(H) <30 MG/DL 10/18/2024 11:23 AM [facility] GLUCOSE (U) NORMAL NORMAL MG/DL 10/18/2024 11:23 AM [facility] KETONES MG/DL (U) 60(A) NEGATIVE MG/DL 10/18/2024 11:23 AM [facility] UROBILINOGEN NORMAL NORMAL MG/DL 10/18/2024 11:23 AM [facility] BILIRUBIN (U) NEGATIVE NEGATIVE MG/DL 10/18/2024 11:23 AM [facility] BLOOD (U) 3+(A) NEGATIVE 10/18/2024 11:23 AM [facility] MUCUS MANY /LPF 10/18/2024 11:23 AM [facility] WBC/HPF >100(H) <6 /HPF 10/18/2024 11:23 AM [facility] RBC/HPF >100(H) <6 /HPF 10/18/2024 11:23 AM [facility] SQUAMOUS EPITHELIALS MODERATE /HPF 10/18/2024 11:23 AM [facility] URINE SPECIMEN OBTAINED BY CLEAN CATCH PROCEDURE / Unknown 10/18/2024 11:00 AM CDT us Yovana Zamora MD URINE ORDERABLES Final Result Performing Organization Address City/[facility] Co de Phone Number [facility] [address] [place] [address], [place] [phone] * (ABNORMAL) MAGNESIUM (10/18/2024 10:45 AM CDT) MAGNESIUM 2.5(H) 1.8 - 2.4 MG/DL 10/18/2024 12:06 PM CDT [facility] 10/18/2024 10:4 5 AM CDT us Yovana Zamora MD LABORATORY Final Result Performing Organization Address [facility] Co de Phone Number [facility] [address] [place] [address], [place] [phone] * (ABNORMAL) SALICYLATE (10/18/2024 10:45 AM CDT) SALICYLATES 2.0(L) 2.8 - 20.0 MG/DL 10/18/2024 11:14 AM CDT [facility] Comment: THERAPEUTIC: 2.8-20.0 Toxic Level: >=30 10/18/2024 10:4 5 AM CDT us Yovana Zamora MD LABORATORY Final Result Performing Organization Address City/[facility]/ZIP Co de Phone Number [facility] [address] [place] [address], [place] [phone] * CK (CPK) (10/18/2024 10:45 AM CDT) CPK 88 21 - 215 U/L 10/18/2024 12:06 PM CDT [facility] 10/18/2024 10:4 5 AM CDT Yovana Zamora MD LABORATORY Final Result Performing Organization Address City/[facility]/ZIP Co de Phone Number [facility] [address] [place] [address], * THYROID STIM HORMONE, TSH (10/18/2024 10:17 AM CDT) TSH 1.380 0.358 - 3.74 uIU/ML 10/18/2024 11:12 AM CDT [facility] Comment: HIGH DOSES OF BIOTIN MAY INTERFERE WITH THIS TEST RESULT. CORRELATION TO CLINICAL HISTORY AND PRESENTATION RECOMMENDED. 10/18/2024 10:1 7 AM CDT Yovana Zamora MD LABORATORY Final Result Performing Organization Address City/[facility] Co de Phone Number [facility] [address] [place] [phone], * ETHANOL (10/18/2024 10:17 AM CDT) Only the most recent of2 resultswithin the time period is included. ALCOHOL S/P/B <0.003 <0.003 G/DL 10/18/2024 11:12 AM CDT [facility] 10/18/2024 10:1 7 AM CDT Yovana Zamora MD LABORATORY Final Result Performing Organization Address City/[facility]/ZIP Co de Phone Number [facility] [address] [place] [phone], [place] [phone] * (ABNORMAL) ACETAMINOPHEN (10/18/2024 10:17 AM CDT) ACETAMINOPHEN S/P/B <2.0(L) 10.0 - 30.0 MCG/ML 10/18/2024 11:12 AM CDT [facility] Comment: THERAPEUTIC: 10-30 TOXIC: >200 10/18/2024 10:1 7 AM CDT us Yovana Zamora MD LABORATORY Final Result [facility] [address] [place] [address], * (ABNORMAL) BASIC METABOLIC PANEL (10/17/2024 4:12 PM CDT) SODIUM S/P/B 140 136 - 145 MMOL/L 10/17/2024 5:06 PM CDT [facility] POTASSIUM S/P/B 3.5 3.5 - 5.1 MMOL/L 10/17/2024 5:06 PM CDT [facility] CHLORIDE S/P/B 103 98 - 107 MMOL/L 10/17/2024 5:06 PM CDT [facility] CO2 27.0 21.0 - 32.0 MMOL/L 10/17/2024 5:06 PM CDT [facility] GLUCOSE 98 70 - 99 MG/DL 10/17/2024 5:06 PM CDT [facility] Comment: FASTING GLUCOSE 100 TO 125 MG/DL IS CONSISTENT WITH IMPAIRED FASTING GLUCOSE. FASTING GLUCOSE >125 MG/DL IS CONSISTENT WITH DIABETES. RANDOM GLUCOSE >200 MG/DL WITH HYPERGLYCEMIC SYMPTOMS IS CONSISTENT WITH DIABETES. PER ADA GUIDELINES BUN 18 6 - 24 MG/DL 10/17/2024 5:06 PM CDT [facility] CREATININE S/P/B 1.18(H) 0.55 - 1.02 MG/DL 10/17/2024 5:06 PM CDT [facility] CALCIUM S/P/B 10.0 8.4 - 10.5 MG/DL 10/17/2024 5:06 PM CDT [facility] ANION GAP 10.0 5.0 - 15.0 MMOL/L 10/17/2024 5:06 PM CDT [facility] OSMOLALITY (CALC) 292 MOSM/KG 025 5:06 PM CDT [facility] Comment:REFERENCE RANGE NOT ESTABLISHED GFR ESTIMATE 59(L) >89 ML/MIN/1. 73 M2 10/17/2024 5:06 PM CDT [facility] GFR NOTES GFR REFERENCE S: 10/17/2024 5:06 PM CDT [facility] Comment: THE ESTIMATED GFR IS [...] CDT Familia Carter MD LABORATORY Final Result [facility] [place] [address], * CORONAVIRUS (COVID-19) ANTIGEN (10/17/2024 4:05 PM CDT) CORONAVIRUS ANTIGEN IA NEGATIVE NEGATIVE 10/17/2024 5:06 PM CDT [facility] Comment: NEGATIVE RESULTS DO NOT RULE [...] NASAL 10/17/2024 4:43 PM CDT [facility] NASAL NASAL STRUCTURE / Unknown 10/17/2024 4:05 PM CDT us Familia Carter MD MICROBIOLOGY - GENERAL ORDERAB LES Final Result [facility] [address] [place] [address], * HEPATITIS PANEL,ACUTE (10/13/2023 3:24 AM CDT) HEPATITIS B SURFACE AG NON-REACT VARGHESE NON-REACT VARGHESE 10/13/2023 1:41 PM CDT [facility] Comment:HBsAg NOT DETECTED. HEP B CORE IGM NON-REACT VARGHESE NON-REACT VARGHESE 10/13/2023 1:41 PM CDT [facility] Comment: IgM ANTI HBc NOT DETECTED. DOES NOT EXCLUDE THE POSSIBILITY OF EXPOSURE TO OR INFECTION WITH HBV. NO RETEST REQUIRED. HIGH DOSES OF BIOTIN MAY INTERFERE WITH THIS TEST RESULT. CORRELATION TO CLINICAL HISTORY AND PRESENTATION RECOMMENDED. HAV IGM NON-REACT VARGHESE NON-REACT VARGHESE 10/13/2023 1:41 PM CDT [facility] Comment: IgM ANTI HAV NOT DETECTED. DOES NOT EXCLUDE THE POSSIBILITY OF EXPOSURE TO OR INFECTION WITH HAV. LEVELS OF IgM ANTI HAV MAY BE BELOW THE CUTOFF IN EARLY INFECTION. HEPATITIS C AB NON-REACT VARGHESE NON-REACT VARGHESE 10/13/2023 1:42 PM CDT [facility] Comment: ANTIBODIES TO HCV NOT DETECTED. DOES NOT EXCLUDE THE POSSIBILITY OF EXPOSURE TO HCV. 10/13/2023 3:24 AM CDT us Tenisha Cheema MD LABORATORY Final Result Performing Organization Address City/[facility]/ZIP Co de Phone Number [facility] [address] [place] [id number], [id number] from Last 3 Months or Most Recently Relevant to Health Maintenance Insurance [facility] [employer] Advance Directives Documents on File Type Date Recorded Patient Slab Tripper Expl anation Advance Directives and Living Will 05/10/2015 12:00 AM ADVANCED DIRECTIVES Advance Directives and Living Will 08/06/2013 12:00 AM ADVANCED DIRECTIVES Advance Directives and Living Will 12/28/2012 12:00 AM ADVANCED DIRECTIVES * Full Code (Latest Code Status on File) Date Activated Date Inactivated Comments 10/13/2023 5:53 AM 10/14/2023 10:50 AM 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
--- OUTSIDE RECORDS SUMMARY | 2025-01-14 18:08 | XMS_ITS | Clinical Summary ---
Author Organization [facility] Address [address] [place] [address] Care Team Providers Care Tape Calender Name Role Phone Christofer Stewart MD Primary [...] 1.7 cm about 1.5 years ago in [facility] - obtain US of thyroid, [...] CDT - 12/17/2024 8:46 PM CDT Emergency [facility] Emergency Department [facility] [place] [address] Discharge Disposition: Left without being seen 10/21/[address] 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 chest pain Views: 2 COMPARISON: 10/17/2024 Procedure Note Rick Grijalva MD - 12/17/2024 MEDICAL RECORDS NUMBER: [id number] PROCEDURE: XR CHEST PA LATERAL 2 VIEWS [...] Data last revised 2020. Testing performed by: [address] [address] Blood 12/17/2024 8:10 PM CDT 12/17/2024 8:14 PM CDT Hannah Muro Jr., MD LAB BLOOD ORDERABLES Fi nal Result Performing Organization Address City/[facility]/ZIP Co de Phone Number [facility] [address] [place] [address] * eGFR (12/17/2024 8:10 PM CDT) eGFR [...] was last reviewed 2020. Testing performed by: [facility], [address] [place] [address]., [address] Blood 12/17/2024 8:10 PM CDT 12/17/2024 8:14 PM CDT us Hannah Muro Jr., MD LAB BLOOD ORDERABLES Fi nal Result Performing Organization Address City/[facility]/ZIP Co de Phone Number [facility] [address] [place] [address] * Differential, auto (12/17/2024 8:10 PM CDT) [facility] Neutrophil abs 4.44 1.50 - 6.50 K/cumm Comment:Testing performed by : [address] [address] Imm gran abs 0.01 0.00 - 0.10 K/cumm [facility] Comment:Testing performed by : [address] [address] Lymphocyte abs 2.64 0.80 - 3.30 K/cumm [facility] Comment:Testing performed by : [address] [address] Monocyte abs 0.68 0.20 - 0.80 K/cumm [facility] Comment:Testing performed by : [address] [address] Eosinophil abs 0.10 0.00 - 0.50 K/cumm [facility] Comment:Testing performed by : [address] [address] Basophil abs 0.04 0.00 - 0.10 K/cumm [facility] Comment:Testing performed by : [address] [address] Neutrophil pct 56.1 % [facility] Comment: Interpretive Data Percent cell count reference ranges are not reported, since discordance with absolute values may lead to misinterpretation of CBC data. Current Interpretive Data was last revised on 2017. Testing performed by: [address] [address] Imm gran pct 0.1 % [facility] Comment: Interpretive Data Percent cell count reference ranges are not reported, since discordance with absolute values may lead to misinterpretation of CBC data. Current Interpretive Data was last revised on 2017. Testing performed by: [address] [address] Lymphocyte pct 33.4 % [facility] Comment: Interpretive Data Percent cell count reference ranges are not reported, since discordance with absolute values may lead to misinterpretation of CBC data. Current Interpretive Data was last revised on 2017. Testing performed by: [address] [address] Monocyte pct 8.6 % [facility] Comment: Interpretive Data Percent cell count reference ranges are not reported, since discordance with absolute values may lead to misinterpretation of CBC data. Current Interpretive Data was last revised on 2017. Testing performed by: [address] [address] Eosinophil pct 1.3 % [facility] Comment: Interpretive Data Percent cell count reference ranges are not reported, since discordance with absolute values may lead to misinterpretation of CBC data. Current Interpretive Data was last revised on 2017. Testing performed by: [address] [address] Basophil pct 0.5 % [facility] Comment: Interpretive Data Percent cell count reference ranges are not reported, since discordance with absolute values may lead to misinterpretation of CBC data. Current Interpretive Data was last revised on 2017. Testing performed by: [address] [address] Blood 12/17/2024 8:10 PM CDT 12/17/2024 8:14 PM CDT us Hannah Muro Jr., MD LAB BLOOD ORDERABLES nal Result [facility] [address] [facility] [place] [address] * (ABNORMAL) CBC with auto differential (12/17/2024 8:10 PM CDT) WBC 7.91 3.80 - 9.90 K/cumm Comment:Testing performed by : [address] [address] Hgb 11.2(L) 11.9 - 15.5 g/dL [facility] Comment:Testing performed by : [address] [address] Hct 32.7(L) 35.6 - 45.5 % [facility] Comment:Testing performed by : [address] [address] Plt 367 150 - 400 K/cumm [facility] Comment:Testing performed by : [address] [address] MPV 9.4 9.1 - 12.3 fL [facility] Comment:Testing performed by : [address] [address] RBC 3.68(L) 3.90 - 5.20 M/cumm [facility] Comment:Testing performed by : [address] [address] MCV 88.9 81.3 - 96.4 fL [facility] Comment:Testing performed by : [address] [address] MCH 30.4 27.1 - 33.3 pg [facility] Comment:Testing performed by : [address] [address] MCHC 34.3 32.3 - 35.7 g/dL [facility] Comment:Testing performed by : [address] [address] RDW CV 12.9 11.1 - 14.9 % [facility] Comment:Testing performed by : [address] [address] RDW SD 42.3 35.7 - 48.1 fL [facility] Comment:Testing performed by : [address] [address] NRBC abs 0.00 0.00 - 0.01 K/cumm [facility] Comment:Testing performed by : [address] [address] Blood Venous blood specimen / Unknown 12/17/2024 8:10 PM CDT 12/17/2024 8:14 PM CDT us Hannah Muro Jr., MD LAB BLOOD ORDERABLES Fi nal Result [facility] [address] [facility] Department [place] [address] * (ABNORMAL) Comprehensive metabolic panel (12/17/2024 8:10 PM CDT) Sodium 139 135 - 145 mmol/L Comment:Testing performed by : [address], [place]., [address] Potassium, pl 4.0 3.3 - 4.9 mmol/L [facility] Comment:Testing performed by : [address], [place]., [address] Chloride 104 97 - 110 mmol/L [facility] Comment:Testing performed by : [address], [place]., [address] CO2 26 22 - 32 mmol/L [facility] Comment:Testing performed by : [address], [place]., [address] Anion gap 9 2 - 15 mmol/L [facility] Comment:Testing performed by : [address], [place]., [address] BUN 17 6 - 25 mg/dL [facility] Comment:Testing performed by : [address], [place]., [address] Creatinine 0.80 0.60 - 1.10 mg/dL [facility] Comment:Testing performed by : [address], [place]., [address] Glucose 103 70 - 199 mg/dL [facility] Comment: Interpretive Data Fasting glucose [...] was last revised 2022. Testing performed by: [address] [address] Calcium 9.1 8.5 - 10.3 mg/dL [facility] Comment:Testing performed by : [address], [place]., [address] Bilirubin, total 0.2 0.1 - 1.2 mg/dL [facility] Comment:Testing performed by : [address] [address] Protein, pl 6.3(L) 6.5 - 8.5 g/dL [facility] Comment:Testing performed by : [address] [address] Albumin 3.9 3.5 - 5.0 g/dL [facility] Comment:Testing performed by : [address], [address] Alk phos 69 40 - 130 Units/L [facility] Comment:Testing performed by : [address] [address] ALT 10 7 - 45 Units/L [facility] Comment:Testing performed by : [address], [address] AST 16 10 - 45 Units/L [facility] Comment:Testing performed by : [address], [address] Blood 12/17/2024 8:10 PM CDT 12/17/2024 8:14 PM CDT us Hannah Muro Jr., MD LAB BLOOD ORDERABLES Fi nal Result [facility] [address] [facility] Department of Laboratories [place], [place] [id number] * ECG 12 lead (12/17/2024 8:02 PM CDT) Ventricular Rate EKG/Min 67 BPM [facility] Atrial Rate [address] [facility] NC-Interval (MSEC) [address] [facility] QRS-Interval (MSEC) [address] [facility] QT-Interval (MSEC) [address] [facility] QTc [address] [facility] P [place] [address] [facility] R [place] [address] [facility] T [place] [address] [facility] Diagnosis Normal sinus rhythm Possible Left atrial enlargement Borderline ECG No previous ECGs available Confirmed by MD KARI, HANNAH ([id number]) on 12/18/2024 10:03:[address] [facility] 12/17/2024 8:02 PM CDT 12/18/2024 10:03 AM CDT us Hannah Muro Jr., MD ECG ORDERABLES Final R esult [facility] * XR Chest Pa Lateral 2 Vw (10/17/2024 2:20 AM CDT) Anatomical Region Laterality Modality Body, Chest N/A Computed Radiogr aphy 10/17/2024 2:35 AM CDT Narrative 10/17/2024 2:36 AM CDT EXAM DESCRIPTION: XR CHEST PA LATERAL 2 VIEWS REASON FOR STUDY: cough Pt has flight of ideas and multiple medical complaints arrived via [facility] discharged from [facility] this AM. Smoker TECHNIQUE: Frontal and lateral [...] Ml Foster M.D. SN: SN Report ID: [id number] Reading Location: [id number] Procedure Note Ml Foster MD - 10/17/2024 EXAM DESCRIPTION: XR CHEST PA LATERAL 2 VIEWS REASON FOR STUDY: cough Pt has flight of [facility]. Smoker TECHNIQUE: Frontal and lateral [...] Ml Foster M.D. SN: SN Report ID: [id number] Reading Location: [id number] us Tre Roche MD IMG XR PROCEDURES Final Result * ECG 12 lead (10/17/2024 12:07 AM CDT) 10/17/2024 12:0 7 AM CDT Narrative [facility] - 10/17/2024 6:47 AM CDT Vent Rate: 84 bpm RR Interval: 709 msec NC Interval: 111 msec QRS Duration: 96 msec QT Interval: 362 msec QTC Interval: 403 msec P-R-T Monroe: 80 - 73 - 64 degrees IMPRESSION: Baseline artifact, probable SINUS RHYTHM WITH SHORT NC INTERVAL LEFT ATRIAL ENLARGEMENT [-0.15mV P WAVE IN V1/V2] POSSIBLE LEFT VENTRICULAR HYPERTROPHY [VOLTAGE CRITERIA PLUS LAE OR QRS WIDENING] ABNORMAL ECG NO CHANGE FROM PREVIOUS TRACING NOTED Electronically Signed By: Francois Casarez MD us Jamarcus Irvin MD ECG ORDERABLES Final Result [facility] from Last 3 Months Insurance [facility] Advance Directives For more information, please contact: [phone] * Full Code (Latest Code Status on File) Date Activated Date Inactivated Comments 10/20/2023 12:17 PM 10/20/2023 8:58 PM Care Teams Tape Calender Relationship Specialty Start Date End Date Christofer Stewart MD PCP - General Family Medicine 06/23/23
--- OUTSIDE RECORDS SUMMARY | 2025-01-14 18:08 | XMS_ITS | Clinical Summary ---
Author Organization [facility] Address [address], [facility] [[email or web address]] [address] [place] [address] Phone Care Team Providers Care Crusher Machine Operator Name Role Phone DelisaMay N MANAGER PERSONNEL SELECTION, FRUIT OR NUT FARMER Primary Care Provider [phone] Allergies Active Allergy Reactions Criticality Noted Date [...] Nurse Triage [facility] [address] [place] [phone] Wendie Hercules, MANAGER PERSONNEL SELECTION, FRUIT OR NUT FARMER Appointment; Chest Pain 12/19/2024 10:31 AM CDT - 12/19/2024 1:03 PM CDT Emergency [facility] [address] [place] [address] Willis Lee, PAC Chest pain Discharge Disposition: Discharged to home or Selfcare 12/19/2024 Travel 12/05/2024 Results Follow[facility]Up [facility] [address] [place] [address] Wendie Hercules, LUIS FELIPE, FRUIT OR NUT FARMER US THYROID, VITAMIN D, 25 HYDROXY TOTAL, VITAMIN B12, Additional followed-up results: 5 12/02/2024 10:49 AM CDT - 12/02/2024 11:59 PM CDT Hospital [facility] Ultrasound [address] [place] [address] Wendie Hercules, MANAGER PERSONNEL SELECTION, FRUIT OR NUT FARMER Discharge Disposition: Discharged to home or Selfcare 12/02/2024 Travel 11/21/2024 2:30 PM CDT Office Visit [facility] [address] [place] [address] Wendie Hercules, MANAGER PERSONNEL SELECTION, FRUIT OR NUT FARMER Depression with anxiety (Primary Dx); At risk for sexually transmitted disease due to unprotected sex Discharge Disposition: Discharged to home or Selfcare 11/21/2024 Travel 11/17/2024 9:39 AM CDT - 11/17/2024 11:17 AM CDT Emergency [facility] [address] [place] [address] Hugh Palencia, DO Viral syndrome Discharge Disposition: Discharged to home or Selfcare 11/17/2024 Telephone [facility] [address] [place] [address] Oehl, Wendie Pizarro APRN, CNP 11/17/2024 Nurse Triage [facility] [address] [place] [address] Wendie Hercules APRN, CNP Breathing Problem 11/16/2024 2:15 PM CDT Office Visit [facility] [address] [place] [address] Óscar Doss APRN, ELVIA Chest discomfort (Primary Dx) Discharge Disposition: Discharged to home or Selfcare 11/16/2024 Documentation Only [facility] Mammography [address] [place] [address] Wendie Hercules APRN, CNP 11/15/2024 10:03 PM CDT - 11/16/2024 12:06 AM CDT Emergency [facility] Emergency [address] [place] [address] Billy Cagle MD Chest pain, unspecified type Discharge Disposition: Discharged to home or Selfcare 11/15/2024 Travel 11/11/2024 Telephone [facility] [address] [place] [address] Wendie Hercules APRN, ELVIA Need Order 10/21/2024 2:00 PM CDT Office Visit [facility] [address] [place] [address] Wendie Hercules APRN, ELVIA Encounter for preventative adult health care exam with abnormal findings (Primary Dx); History of methadone use; Anxiety and depression; Nodule of left lobe of thyroid gland; Vaginal pain; Encounter for screening mammogram for breast cancer Discharge Disposition: Discharged to home or Selfcare 10/21/2024 Travel 10/21/2024 Telephone [facility] Call [facility] [address] [place] [address] Provider, None New Patient from Last 3 [...] DIAGNOSTIC ORDERABLES Final Result Performing Organization Address City/[facility] Co de Phone Number SCAN * TROPONIN I, HIGH SENSITIVITY (HSTRP) (12/19/2024 12:33 PM CDT) Only the most recent of4 resultswithin the time period is included. TROPONIN I, HIGH SENSITIVITY- OLIVA 2.9 <=14.0 ng/L 12/19/2024 1:10 PM CDT [facility] Comment: High-sensitivity troponin I results are reported in ng/L making the result appear to be 1,000 times higher than the contemporary troponin I value which is reported in ng/ml. Results from [facility]. Blood Venipuncture / Unknown 12/19/2024 12:33 PM CDT 12/19/2024 12:44 PM CDT Willis Lee PAC CHEMISTRY ORDERABLES Final Result Performing Organization Address City/[facility] de Phone Number [facility] [address] [place] [address] * NT-proBNP (12/19/2024 10:44 AM CDT) NT PROBNP 177.3 <450.0 pg/mL 12/19/2024 11:17 AM CDT [facility] Comment: AGE pg/mL INTERPRETATION All [...] Willis Lee PAC CHEMISTRY ORDERABLES Final Result [facility] [address] [place] [address] * (ABNORMAL) CBC with Auto Differential (12/19/2024 10:44 AM CDT) Only the most recent of4 resultswithin the time period is included. WBC 5.71 4.00 - 12.00 10(3)/mcL 12/19/2024 10:52 AM CDT [facility] RBC 4.01 3.80 - 5.30 10(6)/mcL 12/19/2024 10:52 AM CDT [facility] HEMOGLOBIN (HGB) 12.2 12.0 - 15.8 g/dL 12/19/2024 10:52 AM CDT [facility] HEMATOCRIT (HCT) 37.7 36.0 - 47.0 % 12/19/2024 10:52 AM CDT [facility] MCV 94.0 82.0 - 96.0 fL 12/19/2024 10:52 AM CDT [facility] MCH 30.4 26.0 - 34.0 pg 12/19/2024 10:52 AM CDT [facility] MCHC 32.4 31.0 - 36.0 g/dL 12/19/2024 10:52 AM CDT [facility] PLATELET COUNT 396 140 - 440 10(3)/mcL 12/19/2024 10:52 AM CDT [facility] RDW 12.7 11.8 - 15.5 % 12/19/2024 10:52 AM CDT [facility] MPV 9.5(L) 9.7 - 12.4 fL 12/19/2024 10:52 AM CDT [facility] NEUTROPHILS 70.2 47.0 - 73.0 % 12/19/2024 10:52 AM CDT [facility] LYMPHOCYTES 20.1 18.0 - 42.0 % 12/19/2024 10:52 AM CDT [facility] MONOCYTES 8.1 4.0 - 12.0 % 12/19/2024 10:52 AM CDT [facility] EOSINOPHILS 0.7 0.0 - 5.0 % 12/19/2024 10:52 AM CDT [facility] BASOPHILS 0.7 0.0 - 1.0 % 12/19/2024 10:52 AM CDT [facility] IMMATURE GRANULOCYTE 0.2 0.0 - 0.4 % 12/19/2024 10:52 AM CDT [facility] ABSOLUTE NEUTROPHILS 4.01 1.60 - 7.70 10(3)/[facility] 12/19/2024 10:52 AM CDT [facility] ABSOLUTE LYMPHOCYTES 1.15(L) 1.30 - 3.20 10(3)/[facility] 12/19/2024 10:52 AM CDT [facility] ABSOLUTE MONOCYTES 0.46 0.20 - 1.00 10(3)/[facility] 12/19/2024 10:52 AM CDT [facility] ABSOLUTE EOSINOPHIL 0.04 0.00 - 0.40 10(3)/[facility] 12/19/2024 10:52 AM CDT [facility] ABSOLUTE BASOPHILS 0.04 0.00 - 0.10 10(3)/[facility] 12/19/2024 10:52 AM CDT [facility] ABSOLUTE IMMATURE GRANULOCYTE 0.01 0.00 - 0.03 10 (3) mcL. 12/19/2024 10:52 AM CDT [facility] NRBC PER 100 WBC 0 12/20/19 10:52 AM CDT [facility] Blood Venipuncture / Unknown 12/19/2024 10:44 AM CDT 12/19/2024 10:50 AM CDT Willis Lee PAC HEMATOLOGY ORDERABLE S Final Result [facility] [address] [place] [address] * Magnesium (12/19/2024 10:44 AM CDT) Only the most recent of2 resultswithin the time period is included. MAGNESIUM 2.1 1.6 - 2.6 mg/dL 12/19/2024 11:13 AM CDT [facility] Blood Venipuncture / Unknown 12/19/2024 10:44 AM CDT 12/19/2024 10:50 AM CDT Willis Lee PAC CHEMISTRY ORDERABLES Final Result [facility] [address] [place] [address] * Ethyl Alcohol(Ethanol) [id number] (12/19/2024 10:44 AM CDT) ETHANOL <10 <10 mg/dL 12/19/2024 11:13 AM CDT [facility] Blood Venipuncture / Unknown 12/19/2024 10:44 AM CDT 12/19/2024 10:50 AM CDT Narrative [facility] - 12/19/2024 11:13 AM CDT FOR MEDICAL USE ONLY Willis Lee PAC CHEMISTRY ORDERABLES Final Result [facility] [address] [place] [address] * CMP (12/19/2024 10:44 AM CDT) Only the most recent of4 resultswithin the time period is included. SODIUM 140 136 - 145 mmol/L 12/19/2024 11:13 AM CDT [facility] POTASSIUM 4.0 3.5 - 5.1 mmol/L 12/19/2024 11:13 AM CDT [facility] CHLORIDE 104 98 - 107 mmol/L 12/19/2024 11:13 AM CDT [facility] CO2, VENOUS 26 22 - 30 mmol/L 12/19/2024 11:13 AM CDT [facility] ANION GAP 14.0 <18.0 mmol/L 12/19/2024 11:13 AM CDT [facility] GLUCOSE 88 70 - 99 mg/dL 12/19/2024 11:13 AM CDT [facility] BUN 9 5 - 18 mg/dL 12/19/2024 11:13 AM CDT [facility] CREATININE, BLOOD 0.74 0.60 - 1.00 mg/dL 12/19/2024 11:13 AM CDT [facility] BUN/CREATININE RATIO 12 12 - 20 ratio 12/19/2024 11:13 AM CDT [facility] TOTAL PROTEIN 7.4 6.0 - 8.0 g/dL 12/19/2024 11:13 AM CDT [facility] ALBUMIN 4.4 3.5 - 5.0 g/dL 12/19/2024 11:13 AM CDT [facility] A/G RATIO 1.5 1.0 - 2.2 12/19/2024 11:13 AM CDT [facility] CALCIUM 9.4 8.7 - 10.5 mg/dL 12/19/2024 11:13 AM CDT [facility] T BILI 0.5 0.2 - 1.2 mg/dL 12/19/2024 11:13 AM CDT [facility] SGOT (AST) 24 <43 U/L 12/19/2024 11:13 AM CDT [facility] SGPT (ALT) 17 <56 U/L 12/19/2024 11:13 AM CDT [facility] ALKALINE PHOSPHATASE 74 40 - 150 U/L 12/19/2024 11:13 AM CDT [facility] GFR, ESTIMATED >60 >=60 12/19/2024 11:13 AM CDT [facility] Comment: Creatinine Clearance is the preferred criteria for selecting drug dose adjustments in renally impaired patients. The GFR is provided as additional pertinent clinical information. GFR is reported in mL/min/1.73 sq m. Calculation based on the 2020 Chronic Kidney Disease Epidemiology Collaboration (CKD-EPI) equation refit without adjustment for race. GFR, EST. >60 >=60 11:13 AM CDT [facility] Comment: Creatinine Clearance is the preferred criteria for selecting drug dose adjustments in renally impaired patients. The GFR is provided as additional pertinent clinical information. GFR is reported in mL/min/1.73 sq m. Calculation based on the 2009 Chronic Kidney Disease Epidemiology Collaboration (CKD-EPI). GFR, EST. NONAFRICAN >60 >=60 12/19/2024 11:13 AM CDT [facility] Comment: Creatinine Clearance is [...] Willis Lee PAC CHEMISTRY ORDERABLES Final Result [facility] [address] [place] [address] * EKG 12 LEAD (12/19/2024 10:36 AM CDT) Only the most recent of3 resultswithin the time period is included. Ventricular Rate 70 BPM EXTERNAL EKG Atrial Rate 70 BPM EXTERNAL EKG P-R Interval 118 ms EXTERNAL EKG QRS Duration 90 ms EXTERNAL EKG Q-T Duration 384 ms EXTERNAL EKG QTC CALCULATION 414 ms EXTERNAL EKG P [place] 63 degrees EXTERNAL EKG R [place] 60 degrees EXTERNAL EKG T [place] 52 degrees EXTERNAL EKG 12/19/2024 10:3 6 AM CDT Impressions EXTERNAL EKG - 12/19/2024 4:09 PM CDT Normal sinus rhythm Normal ECG When compared with ECG of 17-NOV-2024 09:47, No significant change was found Confirmed by Jn Nguyen ([id number]) on 12/19/2024 4:09:26 PM Narrative Procedure Note Jn Nguyen MD PhD - 12/19/2024 IMPRESSION: Normal sinus rhythm Normal ECG When compared with ECG of 17-NOV-2024 09:47, No significant change was found Confirmed by Jn Nguyen ([id number]) on 12/19/2024 4:09:26 PM us Billy Cagle MD IMG ECG ORDERABLES Final Result Performing Organization Address City/[facility] Co de Phone Number EXTERNAL EKG [...] CDT DICTATING PHYSICIAN: Mickey Mccarty D.O. - [facility] US THYROID, 12/02/2024 11:09 [...] (2) with internal vascularity. Echogenicity: Hyperechoic (1). Gvhnys-amwt-Okwz: no (0). Margins: Smooth (0). Echogenic foci: None (0). ACR TI-RADS Classification: TR 3 (3 points) Procedure Note Mickey Mccarty, DO - 12/03/2024 DICTATING PHYSICIAN: Mickey Mccarty D.O. - [facility] US THYROID, 12/02/2024 11:09 AM [...] solid (2) with internalvascularity. Echogenicity: Hyperechoic (1). Prhoqv-sqxx-Cwfz: no (0). Margins: Smooth (0). Echogenic foci: [...] 2017 [employer]. May N Delisa BRISCOE CNP [facility] US ORDERABLES Final R esult * VITAMIN D, 25 HYDROXY TOTAL (12/02/2024 10:47 AM CDT) VITAMIN D, 25 HYDROX 27.9 ng/mL 12/02/2024 12:19 PM CDT [facility] Blood Venipuncture / Unknown 12/02/2024 10:47 AM CDT 12/02/2024 11:12 AM CDT Narrative [facility] - 12/02/2024 12:19 PM CDT Published reference ranges for Vitamin D vary depending on time and place and method of testing, and on patient's age, sex, ethnicity and levels of other measured analytes such as parathormone, calcium and phosphorus. The result should be evaluated in conjunction with clinical findings and suspicions. [place] [employer] and Endocrine Clinical Practice Guidelines: Status Vitamin D levels (ng/mL) Deficient <=20 At risk of inadequacy 21-29 Sufficient 30-100 Centers of Disease Control and Prevention Guidelines: Status Vitamin D levels (ng/mL) Deficient <13 At risk of inadequacy 13-19 Sufficient 20-50 Possibly harmful >50 References: [place] [employer], 2010 Dietary reference intakes for calcium and vitamin D. [place]: The National Academies Press. Betsy M, Ariadne N, Glen ZAMUDIO, et al., Evaluation, treatment, and prevention of Vitamin D deficiency: an Endocrinology Clinical Practice Guideline. JCEM 2011 96: 7 0867-4464. Kenan A, Desmond C, Tyra D, et al., Vitamin D Status: [place], 0539-4426, NCHS data brief, no. 59, MD [place]: National Center for Health Statistics. 2010. May N Delisa BRISCOE CNP CHEMISTRY ORDERABLES Adelaide l Result [facility] [address] [place] [address] * THYROID SCREEN WITH REFLEX (12/02/2024 10:47 AM CDT) TSH 1.382 0.300 - 5.000 mIU/L 12/02/2024 12:07 PM CDT [facility] Blood Venipuncture / Unknown 12/02/2024 10:47 AM CDT 12/02/2024 11:12 AM CDT us May N Delisa BRISCOE, FRUIT OR NUT FARMER CHEMISTRY ORDERABLES Adelaide l Result [facility] [address] [place] [address] * VITAMIN B12 (12/02/2024 10:47 AM CDT) VITAMIN B12 418 213 - 816 pg/mL 12/02/2024 12:19 PM CDT [facility] Blood Venipuncture / Unknown 12/02/2024 10:47 AM CDT 12/02/2024 11:12 AM CDT May N Delisa BRISCOE, FRUIT OR NUT FARMER CHEMISTRY ORDERABLES Adelaide l Result Performing Organization Address City/[facility]/ZIP Co de Phone Number [facility] [address] [place] [address] * THYROXINE (T4) FREE (12/02/2024 10:47 AM CDT) T4 FREE 0.8 0.7 - 1.9 ng/dL 12/02/2024 12:08 PM CDT [facility] Blood Venipuncture / Unknown 12/02/2024 10:47 AM CDT 12/02/2024 11:12 AM CDT us May N Delisa BRISCOE, FRUIT OR NUT FARMER CHEMISTRY ORDERABLES Adelaide l Result [facility] [address] [place] [address] * LIPID PANEL (12/02/2024 10:47 AM CDT) CHOLESTEROL 175 <200 mg/dL 12/02/2024 11:54 AM CDT [facility] TRIGLYCERIDES 127 <150 mg/dL 12/02/2024 11:54 AM CDT [facility] HDL CHOLESTEROL 55 >40 mg/dL 11:54 AM CDT [facility] LDL 95 <130 mg/dL 12/02/2024 11:54 AM CDT [facility] VLDL 25 10 - 50 mg/dL 12/02/2024 11:54 AM T [facility] CHOL/HDL RATIO 3.2 0.0 - 4.4 12/02/2024 11:54 AM CDT [facility] NON-HDL CHOLESTEROL 120 <130 mg/dL 12/02/2024 11:54 AM [facility] IS THE PATIENT REQUIRED TO BE FASTING? Yes 12/02/2024 11:54 AM [facility] HAS THE PATIENT BEEN FASTING? Yes 12/02/2024 11:54 AM [facility] Blood Venipuncture / Unknown 12/02/2024 10:47 AM CDT 12/02/2024 11:12 AM CDT Narrative [facility] - 12/02/2024 11:54 AM T [...] for LDL cholesterol. us May N Oehl MANAGER PERSONNEL SELECTION, FRUIT OR NUT FARMER CHEMISTRY ORDERABLES Adelaide l Result Performing Organization Address City/[facility]/ZIP Co de Phone Number [facility] [address] [place] [address] * RSV,SARS-COV-2,INFLUENZA A&B BY PCR (11/17/2024 9:55 AM CDT) FLU A Negative Negative, Error 11/17/2024 11:19 AM CDT [facility] FLU B Negative Negative 11/17/2024 11:19 AM CDT [facility] RESP SYNC VIRUS Negative Negative 11:19 AM CDT [facility] SARSCOV2 NOT DETECTED (Reference Range for this test is Not Detected) 11/17/2024 11:19 AM CDT [facility] Comment:This test was perfor med by a Reverse Form Tamper Operator PCR Method. Nasal NASOPHARYNGEAL STRUCTURE / Unknown Non-Phlebotomy Collection / Unknown 11/17/2024 9:55 AM CDT 11/17/2024 10:36 AM CDT us Hugh Palencia DO MICROBIOLOGY - GENERAL ORDERABLES Final Result Performing Organization Address [facility] Co de Phone Number [facility] [address] [place] [address] * Gold Top Tube (11/17/2024 9:45 AM CDT) Blood No Phlebotomy Charged / Unknown 11/17/2024 9:45 AM CDT 11/17/2024 10:38 AM CDT us Hugh Palencia DO CHEMISTRY ORDERABLES Fi nal Result Performing Organization Address City/[facility]/ZIP Co de Phone Number [facility] [address] [place] [address] * Blue Top Tube (11/17/2024 9:45 AM CDT) Blood No Phlebotomy Charged / Unknown 11/17/2024 9:45 AM CDT 11/17/2024 10:38 AM CDT us Hugh Chemo Palencia DO HEMATOLOGY ORDERABLES F inal Result [facility] [address] [place] [address] * XR CHEST SINGLE VIEW PORTABLE (11/15/2024 [...] Result * Human Chorionic Gonadotropin Scrn Serum [id number] (11/15/2024 10:26 PM CDT) PREG-HCG Negative Negative 11/15/2024 11:28 PM CDT [facility] Blood Venipuncture / Unknown 11/15/2024 10:26 PM CDT 11/15/2024 11:06 PM CDT Billy Cagle MD CHEMISTRY ORDERABLES Adelaide l Result Performing Organization Address City/[facility]/ZIP Co de Phone Number [facility] [address] [place] [address] * Lipase (11/15/2024 10:26 PM CDT) LIPASE 19 8 - 78 U/L 11/15/2024 11:28 PM CDT [facility] Blood Venipuncture / Unknown 11/15/2024 10:26 PM CDT 11/15/2024 11:06 PM CDT Billy Cagle MD CHEMISTRY ORDERABLES Adelaide l Result Performing Organization Address City/[facility]/ZIP Co de Phone Number [facility] [address] [place] [address] from Last 3 Months Insurance MEDICAID [place] Care Teams Crusher Machine Operator Relationship Specialty Start Date End Date Delisa, May N, MANAGER PERSONNEL SELECTION, FRUIT OR NUT FARMER [address] [address] PCP - General Advanced Practice Nurse 10/21/24
[2025-01-14 18:10] VITALS: BP 116/82; PULSE 77; RESP 18; TEMP 36.9; O2SAT 99
[2025-01-14] MEDS: PANTOPRAZOLE SODIUM IV 40 MG VIAL IV PUSH (18:33)
[2025-01-14] MEDS: ONDANSETRON INJ 4 MG/2 ML VIAL IV PUSH (18:33)
[2025-01-14] MEDS: KETOROLAC 30 MG/ML VIAL (*BKC) IV PUSH (18:34)
[2025-01-14 18:47] LABS: Hematocrit 38.7 % (35.0-49.0); Hemoglobin 12.7 g/dL (12.0-15.0); Immature Granulocyte Percent A 0.2 % (0.0-0.0); Lymphocytes Absolute Auto 1.75 K/mm3 (1.10-4.50); Mean Corpuscular HGB Conc 32.8 g/dL (32-36); Mean Corpuscular Hemoglobin 30.0 pg (27.0-31.0); Mean Corpuscular Volume 91.3 fL (78.0-102.0); Nucleated Red Blood Cells Absolute Auto 0.00 K/mm3 (0.00-0.00); Nucleated Red Blood Cells Perc 0.0 % (0-0.0); Platelet Count Result 423 K/mm3 (150-420); Red Blood Count 4.24 M/mm3 (4.20-5.40); White Blood Count 6.4 K/mm3 (4.8-10.8)
--- OUTSIDE RECORDS SUMMARY | 2025-01-14 18:49 | XMS_ITS | Clinical Summary ---
Author Organization [facility] [employer] Address [address] [place] [address] Care Team Providers Care Line Out Worker Name Role Phone Mario Logan MD Primary Care Provider [phone] Source Comments [facility] [employer],non-owned Affiliates and Associated Physician Practices is amultiple site organization consisting of ambulatory clinics and hospital sitesin [place], [place], [place] and [place]. This disclosure is being madepursuant to the Care Everywhere program and may not contain all information available regarding this patient. Last updated 17.[facility] [employer] Allergies Active Allergy Reactions Criticality Noted Date [...] naloxone HCl (NARCAN) 4 MG/0.1ML nasal spray Russell 1 spray into the nose as needed [...] migh t be different from the original. [id number] Problem Noted Date Diagnosed Date Non-reactive NST [...] 05/30/04: neg 2000: CRISTIAN 3 s/p LEEP [place] Evaluate anatomy not seen on prior sonogram [...] on file Legal Sex Female 7:09 AM WELDING PANTOGRAPH OPERATOR Gender Identity Not on file Sexual [...] P24 AG PANEL Routine 03/10/2019 1:24 PM WELDING PANTOGRAPH OPERATOR Supervision of high risk in second trimester PAP LB HPV HR DNA Routine 11/11/2018 12: 09 PM CDT Cervical cancer screening HEPATITIS C ANTIBODY Routine 11/11/2018 12:07 PM CDT Supervision of high risk , antepartum from Last 3 Months or Most Recently Relevant to Health Maintenance Results * HIV-1 HIV-2 ANTIBODY + HIV P24 AG PANEL (03/10/2019 1:24 PM WELDING PANTOGRAPH OPERATOR) HIV1/2 Ab + P24 Ag Non Reactive Non Reactive 03/10/2019 2:57 PM WELDING PANTOGRAPH OPERATOR [facility] Blood BLOOD SPECIMEN / Unknown Venipuncture / Unknown 03/10/2019 1:24 PM WELDING PANTOGRAPH OPERATOR 03/10/2019 1:49 PM WELDING PANTOGRAPH OPERATOR Narrative [facility] - 03/10/2019 2:57 PM WELDING PANTOGRAPH OPERATOR No Laboratory evidence of HIV infection. us Ivana Thomas [facility] - CHEMISTRY ORDERAB LES Final Result [facility] [address] [place] [address] * PAP LB HPV HR DNA (11/11/2018 12:09 PM CDT) Diagnosis Comment 11/15/2018 8:07 PM CDT [facility] ([facility]) Comment:NEGATIVE FOR INTRAEP ITHELIAL LESION OR MALIGNANCY. Specimen Adequacy Comment 019 8:07 PM CDT [facility] ([facility]) Comment: Satisfactory for evaluation. No endocervical component is identified. An endocervical component is not commonly seen in the patient. Performed by Comment 11/15/2018 8:07 PM CDT [facility] ([facility]) Comment:Bernarda Hutchins Conditioner Tumbler Operator (ASCP) Comment . 11/15/2018 8:07 PM CDT [facility] ([facility]) Note Comment 11/15/2018 8:07 PM CDT [facility] ([facility]) Comment: The Pap smear is a screening test designed to aid in the detection of premalignant and malignant conditions of the uterine cervix. It is not a diagnostic procedure and should not be used as the sole means of detecting cervical cancer. Both false-positive and false-negative reports do occur. Human papillomavirus High Risk Negative Negative 11/15/2018 8:07 PM CDT [facility] ([facility]) Comment: This high-risk HPV test detects thirteen high-risk types (16/18/31/33/35/39/45/51/52/56/58/59/68) without differentiation. Pathology/Cytolo gy ENTIRE ENDOCERVIX / Unknown Collection / Unknown 11/11/2018 12:09 PM CDT 11/11/2018 12:27 PM CDT Narrative [facility] ([facility]) - 11/15/2018 8:07 PM CDT Performed at: 01 - [address] [id number] Packaging Tech: Onelia Barbosa MD, Phone: [phone] Performed at: - [facility] [id number] Packaging Tech: Onelia Barbosa MD, Phone: [phone] Specimen Comment: Source.............Endocervix Specimen Comment: LMP / Prev Treat...[place] / BX Specimen Comment: Other.............. Specimen Comment: No. of containers..01 ThinPrep Vial Helen Zurita [facility] - PATHOLOGY/CYTOLO GY ORDERABLES Final Result [facility] ([facility]) [address] [place] [address] * HEPATITIS C ANTIBODY (11/11/2018 12:07 PM CDT) HCV Antibody Screen Non Reactive Non Reactive 11/11/2018 1:55 PM CDT [facility] HCV S/C Ratio 0.19 0.00 - 0.79 11/11/2018 1:55 PM CDT [facility] Comment: Dducra-rt-hugkzw ratio (S/CO) <0.80: Non Reactive Blood BLOOD SPECIMEN / Unknown Venipuncture / Unknown 11/11/2018 12:07 PM CDT 11/11/2018 12:56 PM CDT Narrative [facility] - 11/11/2018 1:55 PM CDT Non Reactive - Antibodies to Hepatitis C virus (HCV) were not detected, result does not exclude early acute HCV infection. [facility] ORDERA BLES Final Result Performing Organization Address [facility] Co de Phone Number [facility] [address] [place] [address] from Last 3 Months or Most Recently Relevant to Health Maintenance Insurance [facility] Advance Directives * Full Code (Latest [...] 11:00 AM 03/17/2019 7:31 PM Care Teams Line Out Worker Relationship Specialty Start Date End Date Mario Logan MD [address] [place] [id number] PCP - General 05/24/19
--- OUTSIDE RECORDS SUMMARY | 2025-01-14 18:49 | XMS_ITS | Clinical Summary ---
Author Organization [facility] Address [facility] [place] [address] Care Team Providers Care Clinical Laboratory Assistant Name Role Phone Delisa, May [facility] Primary Care Provider [phone] Allergies Active Allergy Reactions Criticality Noted Date [...] Department Care Team Description 12/25/2024 10:14 PM [facility] - 12/26/2024 11:40 AM [facility] Emergency [facility] Emergency Room [address] [place] [id number] Rl Virgen MD Baum, Jamie L, MD Chest Pain Discharge Disposition: Left Against Medical Advice 12/25/2024 7:26 PM [facility] - 12/25/2024 9:07 PM [facility] Emergency [facility] Emergency Room [address] [place] [address] Rl Virgen MD Chest Pain Discharge Disposition: Home or Self Care (Routine Discharge) 12/25/2024 Travel 12/24/2024 3:59 PM CDT - 12/24/2024 8:20 PM CDT Emergency [facility] Emergency Room [address] [place] [address] Salo Dillon MD Palmer, Aunaly E, MD Chest Pain Discharge Disposition: Home or Self Care (Routine Discharge) 12/24/2024 Travel 12/23/2024 2:42 PM CDT - 12/23/2024 4:51 PM CDT Emergency [facility] Emergency Room [address] [place] [address] Salo Dillon MD Chest Pain Discharge Disposition: Home or Self Care (Routine Discharge) 12/23/2024 Travel 12/17/2024 11:53 PM CDT - 12/18/2024 2:43 AM CDT Emergency [facility] Emergency [address] [place] [address] Billy Mayfield DO Chest Pain Discharge Disposition: Home or Self Care (Routine Discharge) 12/17/2024 Travel 12/15/2024 2:10 AM CDT - 12/15/2024 3:41 AM CDT Emergency [facility] Room [address] [place] [address] Jens Mendoza MD Abdominal Pain Discharge Disposition: Home or Self Care (Routine Discharge) 12/15/2024 Travel 12/14/2024 7:01 PM CDT - 12/14/2024 11:09 PM CDT Emergency [facility] Emergency Room [address] [place] [address] Jens Mendoza MD Chest Pain; Shortness Of Breath Discharge Disposition: Home or Self Care (Routine Discharge) 12/14/2024 Travel 10/18/2024 9:46 AM CDT - 10/18/2024 10:30 PM CDT Emergency [facility] [place] [address] Yovana Zamora MD Geldmacher, Kelly J, MD Medical Problem Discharge Disposition: [facility] 10/17/2024 2:59 PM CDT - 10/17/2024 8:00 PM CDT Emergency [facility] Emergency Room [address] [place] [address] Familia Carter MD Medical Problem Discharge Disposition: [...] drink = 0.6 oz pur e alcohol) [facility] Utilities Answer Date Recorded In the past 12 months has e [employer], gas, oil, or water [employer] threatened to shut off services in your [...] any time in the past 12 m [facility], were you homeless or living in a intermediate (including now)? Yes 10/13/2023 Comments No Sex and Gender Information Value Date Recorded Sex Assigned at Female 10/17/2024 3:24 PM CDT Legal Sex Female 11:36 PM CDT Gender Identity Female 12/25/2024 10:22 PM [facility] Sexual Orientation Straight 12/25/2024 10 :22 PM [facility] Last Filed Vital Signs Vital Sign Reading Time Taken Comments Blood Pressure 91/55 12/26/2024 7:00 AM [facility] Pulse 57 12/26/2024 7:00 AM [facility] Temperature 36.5 C (97.7 F) 12/26/2024 7:00 AM [facility] Respiratory Rate 18 12/25/2024 10:18 PM [facility] Oxygen Saturation 97% 12/26/2024 7:00 AM [facility] Inhaled Oxygen Concentration - - Weight 49.9 kg (110 lb) 12/25/2024 10:18 PM [facility] Height 154.9 cm (5' 1) 12/25/2024 10:18 PM [facility] Body Mass Index 20.78 12/25/2024 10:18 PM [facility] Plan of Treatment Health Maintenance Due Date [...] HC URINE TEST STAT 12/25/2024 11:24 PM [facility] DRUG SCREEN RAPID STAT 12/25/2024 11: 24 PM [facility] ECG 12-LEAD Routine 12/25/2024 7:28 PM [facility] CTA CHEST STAT 12/24/2024 5:42 PM CDT [...] (ABNORMAL) DRUG SCREEN RAPID (12/25/2024 11:24 PM [facility]) Only the most recent of3 resultswithin the time period is included. Pathologist [facility] AMPHETAMINE (U) NONE DETECTED NONE DETECTED 12/25/2024 11:45 PM [facility] BARBITURATES SCREEN (U) NONE DETECTED NONE DETECTED 12/25/2024 11:45 PM [facility] BENZODIAZEPINES SCREEN (U) DETECTED(A) NONE DETECTED 12/25/2024 11:45 PM [facility] BUPRENORPHINE SCREEN (U) DETECTED(A) NONE DETECTED 12/25/2024 11:45 PM [facility] COCAINE METABOLITES (U) NONE DETECTED NONE DETECTED 12/25/2024 11:45 PM [facility] METHAMPHETAMINE (U) DETECTED(A) NONE DETECTED 12/25/2024 11:45 PM [facility] METHADONE (U) NONE DETECTED NONE DETECTED 12/25/2024 11:45 PM [facility] OPIATE SCREEN (U) NONE DETECTED NONE DETECTED 12/25/2024 11:45 PM [facility] OXYCODONE SCREEN (U) NONE DETECTED NONE DETECTED 12/25/2024 11:45 PM [facility] PHENCYCLIDINE PCP (U) NONE DETECTED NONE DETECTED 12/25/2024 11:45 PM [facility] CANNABINOIDS SCREEN (U) NONE DETECTED NONE DETECTED 12/25/2024 11:45 PM [facility] TRICYCLIC ANTIDEPRESSANT SCREEN (U) NONE DETECTED NONE DETECTED 12/25/2024 11:45 PM [facility] Comment: NOTE: RESULTS OF [...] URINE SPECIMEN / Unknown 12/25/2024 11:24 PM [facility] Rl Virgen MD URINE ORDERABLES Final Result Performing Organization Address City/[facility]/ZIP Co de Phone Number [facility] [address] [place] [address], [place] [phone] * TEST URINE (12/25/2024 11:24 PM [facility]) Only the most recent of2 resultswithin the time period is included. URINE HCG TEST NEG NEGATIVE 12/25/2024 11:41 PM [facility] Comment: VERY DILUTE URINE SPECIMENS MAY NOT CONTAIN OIL BURNER INSTALLER LEVELS OF HCG. IF IS STILL SUSPECTED, A SERUM HCG TEST IS RECOMMENDED. URINE SPECIMEN FROM URETHRA / Unknown 12/25/2024 11:24 PM [facility] Rl Virgen MD URINE ORDERABLES Final Result Performing Organization Address [facility] Co de Phone Number [facility] [address] [place] [address], [place] [phone] * ECG 12 lead (12/25/2024 7:28 PM [facility]) Only the most recent of7 resultswithin the time period is included. ECG QT 374 [facility] RAD ECG QTC 404 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: : 1980 Requested By: RL VIRGEN Order Number: [id number] Reading MD: Bubba Reyes Measurements Intervals [place] Rate: 70 P: 74 NM: 126 QRS: 69 QRSD: 97 T: 62 QT: 374 QTc: 404 Interpretive Statements SINUS RHYTHM Compared to ECG 12/24/2024 16:10:34 Sinus bradycardia no longer present ER HOLE REAMER Procedure Note uBbba Reyes MD - 12/25/2024 [facility] Test Date: 2024-12-25 Pat Name: JJ SLATER Department: 85 Room: EXAM 505 Gender: Female Marriage And Family Therapist: : 1980 Requested By: RL VIRGEN Order Number: [id number] Reading MD: Bubba Reyes Measurements Intervals [place] Rate: 70 P: 74 NM: 126 QRS: 69 QRSD: 97 T: 62 QT: 374 QTc: 404 Interpretive Statements SINUS RHYTHM Compared to ECG 12/24/2024 16:10:34 Sinus bradycardia no longer present ER HOLE REAMER us Rl Virgen MD ECG ORDERABLES Final Result [facility] RAD * CTA CHEST (12/24/2024 5:42 PM CDT) Anatomical Region Laterality Modality Chest Computed Tomogra phy 12/24/2024 5:56 PM CDT Impressions 12/24/2024 6:02 PM CDT IMPRESSION: 1. Technically limited evaluation for pulmonary embolism. 2. Stable 9 mm lung nodule. Recommend continued surveillance as above. Referred By: Interpreted By: Everett Peterson MD, 12/24/2024 5:56 PM Narrative 12/24/2024 6:02 PM CDT [facility] [place] [address] Examination: CTA CHEST Clinical history: Chest pain [...] Procedure Note Everett Peterson MD - 12/24/2024 [place] [id number] [facility] [place] [address] Examination: CTA CHEST Clinical history: Chest pain [...] 4:34 PM Narrative 12/24/2024 4:41 PM CDT [facility] [address] [address] Examination: XR CHEST PORTABLE Exam time: 12/24/2024 4:14 PM Clinical history: Chest pain. Comparison: 12/23/2024. Technique: AP portable upright radiograph of the chest. Findings: Normal heart size. Normal distribution of the pulmonary vasculature. No focal parenchymal lung consolidation, pleural effusion, or pneumothorax. No acute osseous findings. Surgical clips noted in the upper abdomen. Procedure Note Juan Alberto Meier MD - 12/24/2024 [facility] [address] [facility] [place] [address] Examination: XR CHEST PORTABLE Exam time: 12/24/2024 [...] - 12.4 SEC 12/24/2024 4:46 PM CDT [facility] INR 1.1 12/24/2024 4:46 PM CDT [facility] Comment: Recommend INR ranges for Oral Anticoagulant Therapy: Mechanical Cardiac Values 2.5-3.5 All others indication 2.0-3.0 12/24/2024 4:10 PM CDT us Salo Dillon MD LABORATORY Final Result [facility] [address] [place] [id number], [place] [phone] * (ABNORMAL) COMPREHENSIVE METABOLIC PANEL (12/24/2024 4:10 PM CDT) Only the most recent of6 resultswithin the time period is included. GLUCOSE 84 70 - 99 MG/DL 12/24/2024 4:35 PM CDT [facility] BUN 21(H) 7 - 18 MG/DL 12/24/2024 4:35 PM CDT [facility] CREATININE S/P/B 0.78 0.55 - 1.02 MG/DL 12/24/2024 4:35 PM CDT [facility] SODIUM S/P/B 139 136 - 145 MMOL/L 12/24/2024 4:35 PM CDT [facility] POTASSIUM S/P/B 4.0 3.5 - 5.1 MMOL/L 12/24/2024 4:35 PM CDT [facility] CHLORIDE S/P/B 103 100 - 108 MMOL/L 12/24/2024 4:35 PM CDT [facility] CO2 31.8 21 - 32 MMOL/L 12/24/2024 4:35 PM CDT [facility] CALCIUM S/P/B 8.5 8.5 - 10.1 MG/DL 12/24/2024 4:35 PM T [facility] BILIRUBIN TOTAL S/P/B 0.5 0.2 - 1.2 MG/DL 12/24/2024 4:35 PM T [facility] TOTAL PROTEIN S/P/B 6.4 6.4 - 8.2 G/DL 12/24/2024 4:35 PM T [facility] ALBUMIN S/P/B 3.4 3.4 - 5.0 G/DL 12/24/2024 4:35 PM T [facility] AST 11(L) 15 - 37 U/L 12/24/2024 4:35 PM CDT [facility] ALT 12(L) 14 - 55 U/L 12/24/2024 4:35 PM CDT [facility] ALKALINE PHOSPHATASE S/P/B 71 50 - 136 U/L 12/24/2024 4:35 PM CDT [facility] ANION GAP 4.2(L) 5 - 15 MMOL/L 12/24/2024 4:35 PM CDT [facility] BUN CREATININE RATIO 26.9(H) 6 - 26 12/24/2024 4:35 PM T [facility] A/G RATIO 1.1 1.0 - 2.0 RATIO 12/24/2024 4:35 PM T [facility] GFR ESTIMATE >90 >90 ML/MIN/1.7 3 M2 12/24/2024 4:35 PM T [facility] Comment: NOTE: eGFR is not calculated for patients <18 years of age. This is an estimated GFR calculation using the new CKD EPI creatinine equation without race and so does not require a correction factor for race. This estimated GFR should not be used for calculating drug doses. 12/24/2024 4:10 PM CDT Salo Dillon MD LABORATORY Final Result [facility] [address] [place] [address], * (ABNORMAL) CBC W/DIFF AUTOMATED (12/24/2024 4:10 PM CDT) Only the most recent of7 resultswithin the time period is included. WBC 5.15 4.4 - 11.0 x10'3/uL 12/24/2024 4:23 PM CDT [facility] RBC 3.80(L) 4.50 - 5.10 x10'6/uL 12/24/2024 4:23 PM CDT [facility] HGB 11.6(L) 12.3 - 15.3 G/DL 12/24/2024 4:23 PM T [facility] HCT 35.3(L) 35.9 - 44.6 % 12/24/2024 4:23 PM CDT [facility] MCV 92.9 80.0 - 96.0 FL 12/24/2024 4:23 PM CDT [facility] MCH 30.5 25.3 - 30.9 PG 12/24/2024 4:23 PM CDT [facility] MCHC 32.9 31.0 - 34.1 G/DL 12/24/2024 4:23 PM T [facility] RDW 13.2 12.4 - 15.1 % 12/24/2024 4:23 PM T [facility] PLT 337 151 - 353 x10'3/uL 12/24/2024 4:23 PM T [facility] MPV 9.6 9.6 - 12.0 FL 12/24/2024 4:23 PM T [facility] RBC MORPHOLOGY NORMAL 12/24/2024 4:23 PM T [facility] PLT MORPH. NORMAL 12/24/2024 4:23 PM T [facility] WBC MORPHOLOGY NORMAL 12/24/2024 4:23 PM CDT [facility] LYMPHOCYTES % 29.5 15.8 - 45.0 % 12/24/2024 4:23 PM CDT [facility] NEUTROPHILS % 59.4 42.1 - 71.9 % 12/24/2024 4:23 PM CDT [facility] MONOCYTES % 8.7 5.7 - 12.5 % 12/24/2024 4:23 PM CDT [facility] EOSINOPHILS 1.2 0.0 - 5.6 % 12/24/2024 4:23 PM CDT [facility] BASOPHILS 1.0 0.0 - 1.3 % 12/24/2024 4:23 PM CDT [facility] ABS. NEUTROPHILS 3.06 1.40 - 6.00 x10'3/uL 12/24/2024 4:23 PM CDT [facility] IMMATURE GRANS % 0.2 0.0 - 0.5 % 12/24/2024 4:23 PM CDT [facility] ABS. LYMPHOCYTES 1.52 0.80 - 4.70 x10'3/uL 12/24/2024 4:23 PM CDT [facility] 12/24/2024 4:10 PM CDT us Salo Dillon MD LABORATORY Final Result [facility] [address] [place] [address], [place] [phone] * TROPONIN, QUANT (12/24/2024 4:10 PM CDT) Only the most recent of4 resultswithin the time period is included. TROPONIN I HIGH SENSITIVITY 6 0 - 50 ng/L 12/24/2024 4:38 PM CDT [facility] Comment: HIGH DOSES OF BIOTIN, TROPONIN-SPECIFIC AUTOANTIBODIES, AND ANTIBODY THERAPY CONTAINING HAMA MAY INTERFERE WITH THIS TEST RESULT. CORRELATION TO CLINICAL HISTORY AND PRESENTATION RECOMMENDED. 12/24/2024 4:10 PM CDT us Salo Dillon MD LABORATORY Final Result [facility] [address] [place] [address], [place] [phone] * LIPASE (12/24/2024 4:10 PM CDT) Only the most recent of2 resultswithin the time period is included. [facility] LIPASE 63 16 - 77 UNITS/L 12/24/2024 4:35 PM CDT [facility] 12/24/2024 4:10 PM CDT Salo Dillon MD LABORATORY Final Result Performing Organization Address City/[facility]/ZIP Co de Phone Number [facility] [address] [place] [address], [place] [phone] * D-DIMER, QUANTITATIVE (12/18/2024 12:00 AM CDT) [facility] D-DIMER 271 0 - 500 ng{FEU}/mL 12/18/2024 1:02 AM CDT [facility] EXCLUSION STATEMENT 12/18/2024 1:02 AM CDT [facility] Comment: D-Dimer values less than [...] 12/18/2024 Billy Mayfield DO LABORATORY Final Result [facility] [address] [place] [address], [place] [phone] * HCG QUANT SERUM - CHORIONIC GONADOTROPIN () (12/18/2024 12:00 AM CDT) HCG QUANTITATIVE <1 MIU/ML 12/19/19 1:07 AM CDT [facility] Comment: <5 IS NEGATIVE 5-25 IS BORDERLINE >25 IS POSITIVE ASSAY PERFORMED BY CHEMILUMINESCENCE METHODOLOGY USING SIEMENS DIMENSION VISTA REAGENT. PATIENT RESULTS DETERMINED BY ASSAYS USING DIFFERENT MANUFACTURERS FOR METHODS MAY NOT BE COMPARABLE. 12/18/2024 Emily Pineda Antonieta MARTINEZ LABORATORY Final Result [facility] [address] [place] [address], [place] [phone] [id number] * CT HEAD WO CON (10/18/2024 8:19 PM CDT) Anatomical Region Laterality Modality Head Computed Tomogra phy 10/18/2024 8:20 PM CDT Impressions 10/18/2024 8:22 PM CDT IMPRESSION: No acute intracranial abnormalities identified. Referred By: Interpreted By: Gaurav Damon DO, 10/18/2024 8:20 PM Narrative 10/18/2024 8:22 PM CDT [place] [address] EXAMINATION: CT head without contrast HISTORY: Confusion. [...] Note Gaurav Damon DO - 10/18/2024 [facility] [address] [place], [place] [address] EXAMINATION: CT head without contrast HISTORY: Confusion. [...] URINE CLEAN CATCH 10/18/2024 4:30 PM CDT [facility] SPECIAL REQUESTS NO SPECIAL REQUEST 10/18/2024 4:30 PM CDT [facility] CULTURE RESULT POLYMICROBIAL GROWTH CONSISTENT WITH NORMAL GENITAL CAM. SUSCEPTIBILITIES NOT ROUTINELY PERFORMED. 10/19/2024 8:45 AM CDT [facility] URINE SPECIMEN OBTAINED BY CLEAN CATCH PROCEDURE / Unknown 10/18/2024 4:30 PM CDT 10/18/2024 8:10 PM CDT us Yovana Zamora MD MICROBIOLOGY - GENERAL ORDERA BLES Final Result [facility] [address] [place] [address], * RESPIRATORY PCR PANEL 2 (10/18/2024 12:33 PM CDT) Pathologist [facility] ADENOVIRUS PCR (RESP) NOT DETECTED NOT DETECTED 10/18/2024 1:50 PM CDT [facility] CORONAVIRUS 229E PCR (RESP) NOT DETECTED NOT DETECTED 10/18/2024 1:50 PM CDT [facility] CORONAVIRUS HKU1 PCR (RESP) NOT DETECTED NOT DETECTED 10/18/2024 1:50 PM CDT [facility] CORONAVIRUS NL63 PCR (RESP) NOT DETECTED NOT DETECTED 10/18/2024 1:50 PM CDT [facility] CORONAVIRUS OC43 PCR (RESP) NOT DETECTED NOT DETECTED 10/18/2024 1:50 PM CDT [facility] METAPNEUMOVIRUS PCR (RESP) NOT DETECTED NOT DETECTED 10/18/2024 1:50 PM CDT [facility] RHINOVIRUS/ENTEROV IRUS PCR (RESP) NOT DETECTED NOT DETECTED 10/18/2024 1:50 PM CDT [facility] INFLUENZA A PCR (RESP) NOT DETECTED NOT DETECTED 10/18/2024 1:50 PM CDT [facility] INFLUENZA B PCR (RESP) NOT DETECTED NOT DETECTED 10/18/2024 1:50 PM CDT [facility] PARAINFLUENZA 1 PCR (RESP) NOT DETECTED NOT DETECTED 10/18/2024 1:50 PM CDT [facility] PARAINFLUENZA 2 PCR (RESP) NOT DETECTED NOT DETECTED 10/18/2024 1:50 PM CDT [facility] PARAINFLUENZA 3 PCR (RESP) NOT DETECTED NOT DETECTED 10/18/2024 1:50 PM CDT [facility] PARAINFLUENZA 4 PCR (RESP) NOT DETECTED NOT DETECTED 10/18/2024 1:50 PM CDT [facility] RSV PCR (RESP) NOT DETECTED NOT DETECTED 10/18/2024 1:50 PM CDT [facility] B PARAPERTUSIS PCR (RESP) NOT DETECTED NOT DETECTED 10/18/2024 1:50 PM CDT [facility] BORDETELLA PERTUSSIS PCR (RESP) NOT DETECTED NOT DETECTED 10/18/2024 1:50 PM CDT [facility] CHLAMYDOPHILA PNEUMONIAE PCR (RESP) NOT DETECTED NOT DETECTED 10/18/2024 1:50 PM CDT [facility] MYCOPLASMA PNEUMONIAE PCR (RESP) NOT DETECTED NOT DETECTED 10/18/2024 1:50 PM CDT [facility] CORONAVIRUS SARS COV 2 PCR (RESP) NOT DETECTED NOT DETECTED 10/18/2024 1:50 PM CDT [facility] NASOPHARYNGEAL SWAB / Unknown 10/18/2024 12:33 PM CDT us Yovana Zamora MD MICROBIOLOGY - GENERAL ORDERA BLES Final Result [facility] [address] [place] [address], * (ABNORMAL) URINALYSIS, AUTO, COMPLETE (10/18/2024 11:00 AM CDT) SPECIMEN TYPE URINE CLEAN CATCH 10/18/2024 11:01 AM CDT [facility] COLOR (U) DARK BROWN 10/18/2024 11:23 AM CDT [facility] TRANSPARENCY TURBID 10/18/2024 11:23 AM CDT [facility] SPECIFIC GRAVITY (U) 1.034(H) 1.001 - 1.030 10/18/2024 11:23 AM [facility] U PH 5.5 5.0 - 9.0 10/18/2024 11:23 AM [facility] LEUKOCYTES (U) 250(A) NEGATIVE 10/18/2024 11:23 AM [facility] NITRITES NEGATIVE NEGATIVE 10/18/2024 11:23 AM [facility] PROTEIN RANDOM (U) 100(H) <30 MG/DL 10/18/2024 11:23 AM [facility] GLUCOSE (U) NORMAL NORMAL MG/DL 10/18/2024 11:23 AM [facility] KETONES MG/DL (U) 60(A) NEGATIVE MG/DL 10/18/2024 11:23 AM [facility] UROBILINOGEN NORMAL NORMAL MG/DL 10/18/2024 11:23 AM [facility] BILIRUBIN (U) NEGATIVE NEGATIVE MG/DL 10/18/2024 11:23 AM [facility] BLOOD (U) 3+(A) NEGATIVE 10/18/2024 11:23 AM [facility] MUCUS MANY /LPF 10/18/2024 11:23 AM [facility] WBC/HPF >100(H) <6 /HPF 10/18/2024 11:23 AM [facility] RBC/HPF >100(H) <6 /HPF 10/18/2024 11:23 AM [facility] SQUAMOUS EPITHELIALS MODERATE /HPF 10/18/2024 11:23 AM [facility] URINE SPECIMEN OBTAINED BY CLEAN CATCH PROCEDURE / Unknown 10/18/2024 11:00 AM CDT us Yovana Zamora MD URINE ORDERABLES Final Result Performing Organization Address City/[facility] Co de Phone Number [facility] [address] [place] [id number], [place] [phone] * (ABNORMAL) MAGNESIUM (10/18/2024 10:45 AM CDT) MAGNESIUM 2.5(H) 1.8 - 2.4 MG/DL 10/18/2024 12:06 PM CDT [facility] 10/18/2024 10:4 5 AM CDT us Yovana Zamora MD LABORATORY Final Result Performing Organization Address [facility] Co de Phone Number [facility] [address] [place] [address], [place] [phone] * (ABNORMAL) SALICYLATE (10/18/2024 10:45 AM CDT) SALICYLATES 2.0(L) 2.8 - 20.0 MG/DL 10/18/2024 11:14 AM CDT [facility] Comment: THERAPEUTIC: 2.8-20.0 Toxic Level: >=30 10/18/2024 10:4 5 AM CDT us Yovana Zamora MD LABORATORY Final Result Performing Organization Address City/[facility]/ZIP Co de Phone Number [facility] [address] [place] [address], [place] [phone] * CK (CPK) (10/18/2024 10:45 AM CDT) CPK 88 21 - 215 U/L 10/18/2024 12:06 PM CDT [facility] 10/18/2024 10:4 5 AM CDT Yovana Zamora MD LABORATORY Final Result Performing Organization Address City/[facility]/ZIP Co de Phone Number [facility] [address] [place] [address], * THYROID STIM HORMONE, TSH (10/18/2024 10:17 AM CDT) TSH 1.380 0.358 - 3.74 uIU/ML 10/18/2024 11:12 AM CDT [facility] Comment: HIGH DOSES OF BIOTIN MAY INTERFERE WITH THIS TEST RESULT. CORRELATION TO CLINICAL HISTORY AND PRESENTATION RECOMMENDED. 10/18/2024 10:1 7 AM CDT Yovana Zamora MD LABORATORY Final Result Performing Organization Address City/[facility] Co de Phone Number [facility] [address] [place] [id number], * ETHANOL (10/18/2024 10:17 AM CDT) Only the most recent of2 resultswithin the time period is included. ALCOHOL S/P/B <0.003 <0.003 G/DL 10/18/2024 11:12 AM CDT [facility] 10/18/2024 10:1 7 AM CDT Yovana Zamora MD LABORATORY Final Result Performing Organization Address City/[facility]/ZIP Co de Phone Number [facility] [address] [place] [address], [place] [phone] * (ABNORMAL) ACETAMINOPHEN (10/18/2024 10:17 AM CDT) ACETAMINOPHEN S/P/B <2.0(L) 10.0 - 30.0 MCG/ML 10/18/2024 11:12 AM CDT [facility] Comment: THERAPEUTIC: 10-30 TOXIC: >200 10/18/2024 10:1 7 AM CDT us Yovana Zamora MD LABORATORY Final Result [facility] [address] [place] [address], * (ABNORMAL) BASIC METABOLIC PANEL (10/17/2024 4:12 PM CDT) SODIUM S/P/B 140 136 - 145 MMOL/L 10/17/2024 5:06 PM CDT [facility] POTASSIUM S/P/B 3.5 3.5 - 5.1 MMOL/L 10/17/2024 5:06 PM CDT [facility] CHLORIDE S/P/B 103 98 - 107 MMOL/L 10/17/2024 5:06 PM CDT [facility] CO2 27.0 21.0 - 32.0 MMOL/L 10/17/2024 5:06 PM CDT [facility] GLUCOSE 98 70 - 99 MG/DL 10/17/2024 5:06 PM CDT [facility] [facility] Comment: FASTING GLUCOSE 100 TO 125 MG/DL IS CONSISTENT WITH IMPAIRED FASTING GLUCOSE. FASTING GLUCOSE >125 MG/DL IS CONSISTENT WITH DIABETES. RANDOM GLUCOSE >200 MG/DL WITH HYPERGLYCEMIC SYMPTOMS IS CONSISTENT WITH DIABETES. PER ADA GUIDELINES BUN 18 6 - 24 MG/DL 10/17/2024 5:06 PM CDT [facility] CREATININE S/P/B 1.18(H) 0.55 - 1.02 MG/DL 10/17/2024 5:06 PM CDT [facility] CALCIUM S/P/B 10.0 8.4 - 10.5 MG/DL 10/17/2024 5:06 PM CDT [facility] ANION GAP 10.0 5.0 - 15.0 MMOL/L 10/17/2024 5:06 PM CDT [facility] OSMOLALITY (CALC) 292 MOSM/KG 025 5:06 PM CDT [facility] Comment:REFERENCE RANGE NOT ESTABLISHED GFR ESTIMATE 59(L) >89 ML/MIN/1. 73 M2 10/17/2024 5:06 PM CDT [facility] GFR NOTES GFR REFERENCE S: 10/17/2024 5:06 PM CDT [facility] Comment: THE ESTIMATED GFR [...] CDT Familia Carter MD LABORATORY Final Result [facility] Formerly [facility] [place] [address], * CORONAVIRUS (COVID-19) ANTIGEN (10/17/2024 4:05 PM CDT) CORONAVIRUS ANTIGEN IA NEGATIVE NEGATIVE 10/17/2024 5:06 PM CDT [facility] Comment: NEGATIVE RESULTS DO [...] SPECIMEN TYPE NASAL 10/17/2024 4:43 PM CDT [facility] NASAL NASAL STRUCTURE / Unknown 10/17/2024 4:05 PM CDT us Familia Carter MD MICROBIOLOGY - GENERAL ORDERAB LES Final Result [facility] [address] [place] [address], * HEPATITIS PANEL,ACUTE (10/13/2023 3:24 AM CDT) HEPATITIS B SURFACE AG NON-REACT VARGHESE NON-REACT VARGHESE 10/13/2023 1:41 PM CDT [facility] Comment:HBsAg NOT DETECTED. HEP B CORE IGM NON-REACT VARGHESE NON-REACT VARGHESE 10/13/2023 1:41 PM CDT [facility] Comment: IgM ANTI HBc NOT DETECTED. DOES NOT EXCLUDE THE POSSIBILITY OF EXPOSURE TO OR INFECTION WITH HBV. NO RETEST REQUIRED. HIGH DOSES OF BIOTIN MAY INTERFERE WITH THIS TEST RESULT. CORRELATION TO CLINICAL HISTORY AND PRESENTATION RECOMMENDED. HAV IGM NON-REACT VARGHESE NON-REACT VARGHESE 10/13/2023 1:41 PM CDT [facility] Comment: IgM ANTI HAV NOT DETECTED. DOES NOT EXCLUDE THE POSSIBILITY OF EXPOSURE TO OR INFECTION WITH HAV. LEVELS OF IgM ANTI HAV MAY BE BELOW THE CUTOFF IN EARLY INFECTION. HEPATITIS C AB NON-REACT VARGHESE NON-REACT VARGHESE 10/13/2023 1:42 PM CDT [facility] Comment: ANTIBODIES TO HCV NOT DETECTED. DOES NOT EXCLUDE THE POSSIBILITY OF EXPOSURE TO HCV. 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
--- OUTSIDE RECORDS SUMMARY | 2025-01-14 18:49 | XMS_ITS | Clinical Summary ---
Author Organization [facility] Address [address] [address] [place] [address] Phone Care Team Providers Care Management Psychologist Name Role Phone DelisaMay N DIRECTOR MARKETING COMMUNICATIONS, EMBEDDED PROCESSOR Primary Care Provider [phone] Allergies Active Allergy Reactions Criticality Noted Date [...] Nurse Triage [facility] [address] [place] [phone] Wendie Hercules, DIRECTOR MARKETING COMMUNICATIONS, EMBEDDED PROCESSOR Appointment; Chest Pain 12/19/2024 10:31 AM CDT - 12/19/2024 1:03 PM CDT [facility] [address] [place] [address] Willis Lee, PAC Chest pain Discharge Disposition: Discharged to home or Selfcare 12/19/2024 Travel 12/05/2024 Results Follow-Up [facility] [place], [place] [address] [place] [address] Wendie Hercules, LUIS FELIPE, EMBEDDED PROCESSOR US THYROID, VITAMIN D, 25 HYDROXY TOTAL, VITAMIN B12, Additional followed-up results: 5 12/02/2024 10:49 AM CDT - 12/02/2024 11:59 PM CDT Hospital [facility] [address] [place] [address] Wendie Hercules, DIRECTOR MARKETING COMMUNICATIONS, EMBEDDED PROCESSOR Discharge Disposition: Discharged to home or Selfcare 12/02/2024 Travel 11/21/2024 2:30 PM CDT Office Visit [facility] [place], [place] [address] [place] [address] Wendie Hercules, DIRECTOR MARKETING COMMUNICATIONS, EMBEDDED PROCESSOR Depression with anxiety (Primary Dx); At risk for sexually transmitted disease due to unprotected sex Discharge Disposition: Discharged to home or Selfcare 11/21/2024 Travel 11/17/2024 9:39 AM CDT - 11/17/2024 11:17 AM CDT Emergency [facility] [address] [place] [address] Hugh Palencia, DO Viral syndrome Discharge Disposition: Discharged to home or Selfcare 11/17/2024 Telephone [facility] [place], [place] [address] [place] [address] Oehl, Wendie Pizarro APRN, CNP 11/17/2024 Nurse Triage [facility] Central Call Center [address] [place] [address] Wendie Hercules APRN, CNP Breathing Problem 11/16/2024 2:15 PM CDT Office Visit [facility] [place], [place] [address] [place] [address] Óscar Doss APRN, ELVIA Chest discomfort (Primary Dx) Discharge Disposition: Discharged to home or Selfcare 11/16/2024 Documentation Only [facility] Mammography [address] [place] [address] Wendie Hercules APRN, CNP 11/15/2024 10:03 PM CDT - 11/16/2024 12:06 AM CDT Emergency [facility] Emergency [address] [place] [address] Billy Cagle MD Chest pain, unspecified type Discharge Disposition: Discharged to home or Selfcare 11/15/2024 Travel 11/11/2024 Telephone [facility] [place], [place] [address] [place] [address] Wendie Hercules APRN, ELVIA Need Order 10/21/2024 2:00 PM CDT Office Visit [facility] [place], [place] [address] [place] [address] Wendie Hercules APRN, ELVIA Encounter for preventative adult health care exam with abnormal findings (Primary Dx); History of methadone use; Anxiety and depression; Nodule of left lobe of thyroid gland; Vaginal pain; Encounter for screening mammogram for breast cancer Discharge Disposition: Discharged to home or Selfcare 10/21/2024 Travel 10/21/2024 Telephone [facility] Central Call Center [address] [place] [address] Provider, None New Patient from Last 3 [...] DIAGNOSTIC ORDERABLES Final Result Performing Organization Address City/[facility] Co de Phone Number SCAN * TROPONIN [...] CHEMISTRY ORDERABLES Final Result Performing Organization Address City/[facility] de Phone Number [facility] [address] [place] [address] * NT-proBNP (12/19/2024 10:44 AM CDT) NT [...] Willis Lee PAC CHEMISTRY ORDERABLES Final Result [facility] [address] [place] [address] * (ABNORMAL) CBC with Auto Differential (12/19/2024 10:44 AM CDT) Only the most recent of4 resultswithin the time period is included. WBC 5.71 4.00 - 12.00 10(3)/mcL 12/19/2024 10:52 AM CDT [facility] RBC 4.01 3.80 - 5.30 10(6)/mcL 12/19/2024 10:52 AM CDT [facility] HEMOGLOBIN (HGB) 12.2 12.0 - 15.8 g/dL 12/19/2024 10:52 AM CDT [facility] HEMATOCRIT (HCT) 37.7 36.0 - 47.0 % 12/19/2024 10:52 AM CDT [facility] MCV 94.0 82.0 - 96.0 [...] ABSOLUTE NEUTROPHILS 4.01 1.60 - 7.70 10(3)/[facility] 12/19/2024 10:52 AM CDT [facility] ABSOLUTE LYMPHOCYTES 1.15(L) 1.30 - 3.20 10(3)/[facility] 12/19/2024 10:52 AM CDT [facility] ABSOLUTE MONOCYTES 0.46 0.20 - 1.00 10(3)/[facility] 12/19/2024 10:52 AM CDT [facility] ABSOLUTE EOSINOPHIL 0.04 0.00 - 0.40 10(3)/[facility] 12/19/2024 10:52 AM CDT [facility] ABSOLUTE BASOPHILS 0.04 0.00 - 0.10 10(3)/[facility] 12/19/2024 10:52 AM CDT [facility] ABSOLUTE IMMATURE GRANULOCYTE 0.01 0.00 - 0.03 10 (3) mcL. 12/19/2024 10:52 AM CDT [facility] NRBC PER 100 WBC 0 12/20/19 10:52 AM CDT [facility] Blood Venipuncture / Unknown 12/19/2024 10:44 AM CDT 12/19/2024 10:50 AM CDT Willis Lee PAC HEMATOLOGY ORDERABLE S Final Result [facility] [place] [address] * Magnesium (12/19/2024 10:44 AM CDT) Only the most recent of2 resultswithin the time period is included. MAGNESIUM 2.1 1.6 - 2.6 mg/dL 12/19/2024 11:13 AM CDT [facility] Blood Venipuncture / Unknown 12/19/2024 10:44 AM CDT 12/19/2024 10:50 AM CDT Willis Lee PAC CHEMISTRY ORDERABLES Final Result [facility] [address] [place] [address] * Ethyl Alcohol(Ethanol) [id number] (12/19/2024 10:44 AM CDT) ETHANOL <10 <10 mg/dL 12/19/2024 11:13 AM CDT [facility] Blood Venipuncture / Unknown 12/19/2024 10:44 AM CDT 12/19/2024 10:50 AM CDT Narrative [facility] - 12/19/2024 11:13 AM CDT FOR MEDICAL USE ONLY Willis Lee PAC CHEMISTRY ORDERABLES Final Result [facility] [address] [place] [address] * CMP (12/19/2024 10:44 AM CDT) Only [...] - 18 mg/dL 12/19/2024 11:13 AM CDT [facility] CREATININE, BLOOD 0.74 0.60 - 1.00 mg/dL 12/19/2024 11:13 AM CDT [facility] BUN/CREATININE RATIO 12 12 - 20 ratio 12/19/2024 11:13 AM CDT [facility] TOTAL PROTEIN 7.4 6.0 - 8.0 g/dL 12/19/2024 11:13 AM CDT [facility] ALBUMIN 4.4 3.5 - 5.0 g/dL 12/19/2024 11:13 AM CDT [facility] A/G RATIO 1.5 1.0 - 2.2 12/19/2024 11:13 AM CDT [facility] CALCIUM 9.4 8.7 - 10.5 mg/dL 12/19/2024 11:13 AM CDT [facility] T BILI 0.5 0.2 - [...] GFR, EST. >60 >=60 11:13 AM CDT [facility] Comment: Creatinine Clearance is the preferred criteria for selecting drug dose adjustments in renally impaired patients. The GFR is provided as additional pertinent clinical information. GFR is reported in mL/min/1.73 sq m. Calculation based on the 2009 Chronic Kidney Disease Epidemiology Collaboration (CKD-EPI). GFR, EST. NONAFRICAN >60 >=60 12/19/2024 11:13 AM CDT [facility] Comment: Creatinine Clearance is the [...] Willis Lee PAC CHEMISTRY ORDERABLES Final Result [facility] [address] [place] [address] * EKG 12 LEAD (12/19/2024 10:36 AM CDT) Only the most recent of3 resultswithin the time period is included. Ventricular Rate 70 BPM EXTERNAL EKG Atrial Rate 70 BPM EXTERNAL EKG P-R Interval 118 ms EXTERNAL EKG QRS Duration 90 ms EXTERNAL EKG Q-T Duration 384 ms EXTERNAL EKG QTC CALCULATION 414 ms EXTERNAL EKG P [place] 63 degrees EXTERNAL EKG R [place] 60 degrees EXTERNAL EKG T [place] 52 degrees EXTERNAL EKG 12/19/2024 10:3 6 AM CDT Impressions EXTERNAL EKG - 12/19/2024 4:09 PM CDT Normal sinus rhythm Normal ECG When compared with ECG of 17-NOV-2024 09:47, No significant change was found Confirmed by Jn Nguyen ([id number]) on 12/19/2024 4:09:26 PM Narrative Procedure Note Jn Nguyen MD PhD - 12/19/2024 IMPRESSION: Normal sinus rhythm Normal ECG When compared with ECG of 17-NOV-2024 09:47, No significant change was found Confirmed by Jn Nguyen ([id number]) on 12/19/2024 4:09:26 PM us Billy Cagle MD IMG ECG ORDERABLES Final Result Performing Organization Address City/[facility] Co de Phone Number EXTERNAL EKG [...] PHYSICIAN: Mickey Mccarty D.O. - [facility] US THYROID, 12/02/2024 11:09 AM [...] (2) with internal vascularity. Echogenicity: Hyperechoic (1). [id number]-[id number]: no (0). Margins: Smooth (0). Echogenic foci: None (0). ACR TI-RADS Classification: TR 3 (3 points) Procedure Note Mickey Mccarty, DO - 12/03/2024 DICTATING PHYSICIAN: Mickey Mccarty D.O. - [facility] US THYROID, 12/02/2024 11:09 AM CLINICAL [...] solid (2) with internalvascularity. Echogenicity: Hyperechoic (1). Thhizg-xlhn-Lnzf: no (0). Margins: Smooth (0). Echogenic foci: [...] 2017 [employer]. May N Delisa BRISCOE CNP [facility] US ORDERABLES Final R esult * VITAMIN [...] in conjunction with clinical findings and suspicions. [place] [employer] Clinical Practice Guidelines: Status Vitamin D levels (ng/mL) Deficient <=20 At risk of inadequacy 21-29 Sufficient 30-100 Centers of Disease Control and Prevention Guidelines: Status Vitamin D levels (ng/mL) Deficient <13 At risk of inadequacy 13-19 Sufficient 20-50 Possibly harmful >50 References: [place] [employer], 2010 Dietary reference intakes for calcium and vitamin D. [place]: The National Academies Press. Betsy M, Ariadne N, Glen ZAMUDIO, et al., Evaluation, treatment, and prevention of Vitamin D deficiency: an Endocrinology Clinical Practice Guideline. JCEM 2011 96: 7 0273-1706. Kenan A, Desmond C, Tyra D, et al., Vitamin D Status: [place], 3897-2868, NCHS data brief, no. 59, MD [place]: National Center for Health Statistics. 2010. May N Delisa BRISCOE CNP CHEMISTRY ORDERABLES Adelaide l Result [facility] [address] [place] [address] * THYROID SCREEN WITH REFLEX (12/02/2024 10:47 AM CDT) TSH 1.382 0.300 - 5.000 mIU/L 12/02/2024 12:07 PM CDT [facility] Blood Venipuncture / Unknown 12/02/2024 10:47 AM CDT 12/02/2024 11:12 AM CDT us May N Delisa BRISCOE, EMBEDDED PROCESSOR CHEMISTRY ORDERABLES Adelaide l Result [facility] [address] [place] [address] * VITAMIN B12 (12/02/2024 10:47 AM CDT) VITAMIN B12 418 213 - 816 pg/mL 12/02/2024 12:19 PM CDT [facility] Blood Venipuncture / Unknown 12/02/2024 10:47 AM CDT 12/02/2024 11:12 AM CDT May N Delisa BRISCOE, EMBEDDED PROCESSOR CHEMISTRY ORDERABLES Adelaide l Result Performing Organization Address City/[facility]/ZIP Co de Phone Number [facility] [address] [place] [address] * THYROXINE (T4) FREE (12/02/2024 10:47 AM CDT) T4 FREE 0.8 0.7 - 1.9 ng/dL 12/02/2024 12:08 PM CDT [facility] Blood Venipuncture / Unknown 12/02/2024 10:47 AM CDT 12/02/2024 11:12 AM CDT us May N Delisa BRISCOE, EMBEDDED PROCESSOR CHEMISTRY ORDERABLES Adelaide l Result [facility] [address] [place] [address] * LIPID PANEL (12/02/2024 10:47 AM CDT) CHOLESTEROL 175 <200 mg/dL 12/02/2024 11:54 AM CDT [facility] TRIGLYCERIDES 127 <150 mg/dL 12/02/2024 11:54 AM CDT [facility] HDL CHOLESTEROL 55 >40 mg/dL 11:54 AM CDT [facility] LDL 95 <130 mg/dL 12/02/2024 11:54 AM CDT [facility] VLDL 25 10 - 50 mg/dL 12/02/2024 11:54 AM T [facility] CHOL/HDL RATIO 3.2 0.0 - 4.4 12/02/2024 11:54 AM CDT [facility] NON-HDL CHOLESTEROL 120 <130 mg/dL 12/02/2024 11:54 AM [facility] IS THE PATIENT REQUIRED TO BE FASTING? Yes 12/02/2024 11:54 AM [facility] HAS THE PATIENT BEEN FASTING? Yes 12/02/2024 11:54 AM [facility] Blood Venipuncture / Unknown 12/02/2024 10:47 AM CDT 12/02/2024 11:12 AM CDT Narrative [facility] - 12/02/2024 11:54 AM T [...] for LDL cholesterol. us May N Oehl DIRECTOR MARKETING COMMUNICATIONS, EMBEDDED PROCESSOR CHEMISTRY ORDERABLES Adelaide l Result Performing Organization Address City/[facility]/ZIP Co de Phone Number [facility] [address] [place] [address] * RSV,SARS-COV-2,INFLUENZA A&B BY PCR (11/17/2024 9:55 [...] test was perfor med by a Reverse Corrugated Fastener Driver PCR Method. Nasal NASOPHARYNGEAL STRUCTURE / Unknown Non-Phlebotomy Collection / Unknown 11/17/2024 9:55 AM CDT 11/17/2024 10:36 AM CDT us Hugh Palencia DO MICROBIOLOGY - GENERAL ORDERABLES Final Result Performing Organization Address [facility] Co de Phone Number [facility] [address] [place] [address] * Gold Top Tube (11/17/2024 9:45 AM CDT) Blood No Phlebotomy Charged / Unknown 11/17/2024 9:45 AM CDT 11/17/2024 10:38 AM CDT us Hugh Palencia DO CHEMISTRY ORDERABLES Fi nal Result Performing Organization Address City/[facility]/ZIP Co de Phone Number [facility] [address] [place] [address] * Blue Top Tube (11/17/2024 9:45 AM CDT) Blood No Phlebotomy Charged / Unknown 11/17/2024 9:45 AM CDT 11/17/2024 10:38 AM CDT us Hugh Chemo Palencia DO HEMATOLOGY ORDERABLES F inal Result [facility] [address] [place] [address] * XR CHEST SINGLE VIEW PORTABLE (11/15/2024 [...] Result * Human Chorionic Gonadotropin Scrn Serum [id number] (11/15/2024 10:26 PM CDT) PREG-HCG Negative Negative 11/15/2024 11:28 PM CDT [facility] Blood Venipuncture / Unknown 11/15/2024 10:26 PM CDT 11/15/2024 11:06 PM CDT Billy Cagle MD CHEMISTRY ORDERABLES Adelaide l Result Performing Organization Address City/[facility]/ZIP Co de Phone Number [facility] [address] [place] [address] * Lipase (11/15/2024 10:26 PM CDT) LIPASE 19 8 - 78 U/L 11/15/2024 11:28 PM CDT [facility] Blood Venipuncture / Unknown 11/15/2024 10:26 PM CDT 11/15/2024 11:06 PM CDT Billy Cagle MD CHEMISTRY ORDERABLES Adelaide l Result Performing Organization Address City/[facility]/ZIP Co de Phone Number [facility] [address] [place] [address] from Last 3 Months Insurance MEDICAID [place] Care Teams Management Psychologist Relationship Specialty Start Date End Date Delisa, May N, DIRECTOR MARKETING COMMUNICATIONS, EMBEDDED PROCESSOR [address] [address] PCP - General Advanced Practice Nurse 10/21/24
--- OUTSIDE RECORDS SUMMARY | 2025-01-14 18:49 | XMS_ITS | Encounter Summary ---
Author Organization [facility] Address [facility] [place] [address] Care Team Providers Care Forest Economics Professor Name Role Phone None, Provider Primary Care Provider Diana HerculesMay [facility] Primary Care Provider [phone] Encounter Details Date Type Department Care Team (Late st Contact Info) Description 07/31/2018 Abstract SFL CONVERSION [address] [place] [address] , Generic Conversion, Social History Tobacco Use Types Packs/Day Years Used Date Smoking Tobacco: Never Assessed Comments Unknown Sex and Gender Information Value Date Recorded Sex Assigned at Female 10/17/2024 3:24 PM CDT Legal Sex Female 11:36 PM CDT Gender Identity Female 12/25/2024 10:22 PM TESTING ENGINEER Sexual Orientation Straight 12/25/2024 10 :22 PM TESTING ENGINEER documented as of this encounter Plan of Treatment Not on file documented as of this encounter Visit Diagnoses Not on filedocumented in this encounter Additional Health Concerns Infection Onset Date Last Indicated Resolved Time COVID-19 Rule Out 10/17/2024 10/17/2024 10/17/2024 5:06 PM CDT Respiratory Rule Out 10/18/2024 10/18/2024 025 1:50 PM CDT documented as of this encounter Care Teams Forest Economics Professor Relationship Specialty Start Date End Date None, Provider, PCP - General UNKNOWN PHYSICIAN SPECIALTY 07/13/23 DelisaMay, MEDICAL SAFETY DIRECTOR [address] [place] [address] PCP - General Nurse Practitioner Family 12/23/24 documented as of this encounter
[2025-01-14 18:57] LABS: Alanine Aminotransferase 78 U/L (6-35); Albumin Level 4.9 g/dL (3.5-5.1); Alkaline Phosphatase 144 U/L (38-126); Anion Gap 11 mmol/L (4-12); Aspartate Amino Transferase 41 U/L (14-36); Bilirubin,Total 0.6 mg/dL (0.2-1.3); Blood Urea Nitrogen 20 mg/dL (7-17); Calcium 9.6 mg/dL (8.4-10.2); Carbon Dioxide 27 mmol/L (22-30); Chloride 105 mmol/L (98-107); Estimated CRCL calculation 63 ml/min; Estimated Glomerular Filt Rate > 60; Glucose 101 mg/dL (65-110); Lipase 70 U/L (23-300); Osmolality Calculated 298 mOsm/kg (285-295); Potassium 3.6 mmol/L (3.4-5.0); Sodium 143 mmol/L (137-145); Total Protein 8.0 g/dL (6.3-8.2)
--- NOTE | 2025-01-14 20:16 | ED_ITS ---
HPI - Abdominal Pain General Chief Complaint: Abdominal Pain Stated Complaint: abdominal pain Time Seen by Provider: 01/14/25 18:11 Source: patient Mode of arrival: ambulatory Limitations: no limitations History of Present Illness HPI narrative: This is a 44-year-old female that is a methamphetamine user with some abdominal pain complains of an epigastric type pain has been going on for the last couple a days getting worse and then gets better with no chest pain no shortness of breath no fever chills no nausea vomiting no diarrhea constipation. MD elicited complaint: abdominal pain Onset (ago): day(s) Pain Consistency: intermittent Location: epigastric Severity: moderate Pain scale (0-10): 6 Quality: aching Radiation: epigastric Migration to: epigastric Exacerbating factors: nothing Relieving factors: nothing Related Data Home Medications ?Medication ?Instructions ?Recorded ?Confirmed ?Last Taken ?Type buprenorphine 8 mg-naloxone 2 mg 1 tablet sublingual D AILY 12/15/24 12/21/24 Unknown History sublingual tablet Allergies Allergy/AdvReac Type Severity Reaction Status Date / Time Penicillins Allergy Severe Difficulty Verified 01/14/25 18:12 Swallowing codeine AdvReac Swelling Verified 01/14/25 18:12 Review of Systems 2 Review of Systems: All systems reviewed & are unremarkable except as noted in HPI and below PMFSH Past Medical History Medical History Drug abuse Tooth decay Surgical History Surgical History History of x3 Family History Family History Father No problems noted. Father Lung cancer Mother Heart disease Social History Social History Years smoked: 20 Smoking status: Current every day smoker Tobacco type: cigarettes Second hand tobacco smoke exposure: Yes Alcohol intake: former Substance use: former Substance use type: methamphetamine Gender identity (if verbalized by the patient): Female Spiritual care concerns: No Exam 2 Const: General: no acute distress Nutritional Appearance: well nourished Orientation/consciousness: patient oriented x3 Limitations: no limitations Chest: Chest palpation & inspection: normal inspection of the chest Resp: Effort & Inspection: normal respiratory effort Auscultation: clear to auscultation bilaterally Cardio: Rate: regular rate Rhythm: regular rhythm GI: GI Palp: Yes Soft to palpation and Yes Tenderness to palpation present (GI) : General: Yes bladder normal to palpation Skin: General skin exam: normal color Rashes: no rashes Neuro: General: patient oriented x3, moves all extremities and no meningeal signs Extrem: General: normal to inspection and no clubbing, cyanosis or edema Course Course Emergency Course: Medical decision making narrative: Patient was evaluated by myself in the emergency department. History obtained from the patient who is an independent historian physical exam performed with this by nurse. External medical records were reviewed at this time. Patient had blood work performed which showed no acute abnormalities CT scan of the abdomen pelvis was performed reviewed with patient. Patient received a Protonix IV Zofran and IV Toradol after reassessment patient's abdominal pain has improved. Patient resting comfortably. Repeat assessment: Patient doing well repeat exam with no acute distress Symptoms have improved since arrival to the ED Repeat vitals are stable Patient agrees with discussion and after shared medical decision-making agrees with discharge. All questions answered to the patient's satisfaction Advised follow-up in 3 to 5 days with primary. Vital Signs Vital signs: Vital Signs Temperature 36.9 C 01/14/25 18:10 Pulse Rate 77 01/14/25 18:10 Respiratory Rate 18 01/14/25 18:10 Blood Pressure 116/82 01/14/25 18:10 Pulse Oximetry 99 01/14/25 18:10 Oxygen Delivery Room Air 01/14/25 18:10 Temperature 36.9 C 01/14/25 18:10 Pulse Rate 77 01/14/25 18:10 Respiratory Rate 18 01/14/25 18:10 Blood Pressure 116/82 01/14/25 18:10 Pulse Oximetry 99 01/14/25 18:10 Oxygen Delivery Room Air 01/14/25 18:10 MDM - Abdominal Pain Lab Data 01/14/25 18:44 01/14/25 18:44 Labs: Lab Results 01/14/25 Range/Units 18:44 WBC 6.4 (4.8-10.8) K/mm3 RBC 4.24 (4.20-5.40) M/mm3 Hgb 12.7 (12.0-15.0) g/dL Hct 38.7 (35.0-49.0) % MCV 91.3 (78.0-102.0) fL MCH 30.0 (27.0-31.0) pg MCHC 32.8 (32-36) g/dL RDW 13.2 (11.6-14.4) % Plt Count 423 H (150-420) K/mm3 MPV 9.1 L (9.2-11.8) fl Immature Gran % (Auto) 0.2 H (0.0-0.0) % Neut % (Auto) 63.8 (50.0-70.0) % Lymph % (Auto) 27.3 (18.0-42.0) % [place] % (Auto) 7.9 (2.0-11.0) % Eos % (Auto) 0.5 L (1.0-6.0) % Baso % (Auto) 0.3 (0.0-1.0) % Lymph # (Auto) 1.75 (1.10-4.50) K/mm3 [place] # (Auto) 0.51 (0.10-0.90) K/mm3 Eos # (Auto) 0.03 (0.02-0.50) K/mm3 Baso # (Auto) 0.02 (0.00-0.10) K/mm3 Abs Immat Gran (auto) 0.01 H (0.00-0.00) K/mm3 Absolute Neuts (auto) 4.10 (1.70-7.20) K/mm3 Absolute Nucleated RBC 0.00 (0.00-0.00) K/mm3 Nucleated RBC % 0.0 (0-0.0) % Sodium 143 (137-145) mmol/L Potassium 3.6 (3.4-5.0) mmol/L Chloride 105 (98-107) mmol/L Carbon Dioxide 27 (22-30) mmol/L Anion Gap 11 (4-12) mmol/L BUN 20 H (7-17) mg/dL Creatinine 0.76 (0.7-1.0) mg/dL Estim Creat Clear Calc 63 ml/min Estimated GFR > 60 (59 - ) Glucose 101 (65-110) mg/dL Calculated Osmolality 298 H (285-295) mOsm/kg Lactic Acid 1.0 (0.7-2.0) mmol/L Calcium 9.6 (8.4-10.2) mg/dL Total Bilirubin 0.6 (0.2-1.3) mg/dL AST 41 H (14-36) U/L ALT 78 H (6-35) U/L Alkaline Phosphatase 144 H (38-126) U/L Total Protein 8.0 (6.3-8.2) g/dL Albumin 4.9 (3.5-5.1) g/dL Lipase 70 (23-300) U/L Imaging Data Radiologist's impression: ITS Impressions Chest X-Ray 01/14/25 18:45 Impression: No acute cardiopulmonary abnormality. Critical Care Time Critical Care Time Critical Care Time: No Discharge Plan Discharge Clinical Impression: Abdominal pain Qualifiers: Abdominal location: generalized Qualified Code(s): R10.84 - Generalized abdominal pain Nausea & vomiting Qualifiers: Vomiting type: unspecified Qualified Code(s): R11.2 - Nausea with vomiting, unspecified Patient Disposition: Home Condition: Stable Instructions: Antibiotic Form, Abdominal Pain (ED) Patient Language: [place] Prescriptions: No Action buprenorphine-naloxone 8-2 mg tablet, sublingual 1 tablet sublingual DAILY Follow-up/Referrals: PHYSICIAN,UX DESIGN MANAGER [Primary Care Provider, Internal Medicine]
[2025-01-14 21:58] VITALS: BP 104/71; PULSE 94; RESP 20; TEMP 36.2; O2SAT 98
--- NOTE | 2025-01-19 14:24 | PC.NURSE ---
blood culture, no growth, preliminary
--- NOTE | 2025-01-23 14:48 | PC.NURSE ---
FINAL BLOOD CULTURE REPORT; CUTIBACTERIUM ACNES, PER ERP CONTAMINATED SAMPLE, NO TREATMENT NEEDED.
== END 2025-01-14 22:05 | disposition home or self-care (01) ==
PROVIDERS: Emergency Provider Emergency Medicine; Referring Provider Internal Medicine
DX: R10.84 Generalized abdominal pain (principal); R11.2 Nausea with vomiting, unspecified; F17.210 Nicotine dependence, cigarettes, uncomplicated
CPT/HCPCS: 36415; 71045; 74177; 80053; 83605; 83690; 85025; 96374; 96375; 99284; J1885; J2405; J2470; Q9967

== ENCOUNTER 2025-01-17 02:28 | Emergency (ER) | payer OTHER, SELFPAY ==
--- OUTSIDE RECORDS SUMMARY | 2024-09-28 04:40 | XMS_ITS ---
Author Organization [facility] Address [address] [place] [address] Care Team Providers Care Shot Hole Shooter Name Role Phone Alana Epps Primary Care Provider Ana Verma [phone] REASON FOR VISIT new patient Social History Sex Assigned At : Social History Observation Description Sex Assigned At Female Encounters Encounter Location Date Provider Diagnosis [facility] [address], [place] [address] 09/28/2024 Ana Verma Plan Of Treatment Next Appt Details Provider Name:Alana patino, 01/24/2025 09:00:00 AM, [address], [place], [address], Progress Notes * Jaycee ROUSEDOB:1980 (44 yo F)Acc No.[id number]:09/28/2024 UNLOCKED PROGRESS NOTE Patient: Jaycee AYALA Provider: Peg Verma, MSN, SHOCHET, PMHNP-BC :1980 A ge:44 Y S ex:Female Date:09/28/2024 Address:[address], [facility] [place] Pcp:Alana Epps Structured Data:Is there a n henny you would prefer we call you? (Nombre que prefiere usar) : No Subjective: * Chief Complaints: * 1 . New patient. * Medical History: Objective: * Vitals: Assessment: Plan: * Treatment: * * Electronic signature of Anton Verma on 01/17/2025 at 02:31 AM SOLAR LAB TECHNICIAN Sign off status: Pending * Provider: Peg Verma, MSN, SHOCHET, PMHNP-BC Date: 0 09/28/2024 Generated for Printing/Faxing/eTransmitting on: 1 03/19/2024 02:31 AM SOLAR LAB TECHNICIAN
--- OUTSIDE RECORDS SUMMARY | 2024-09-29 03:20 | XMS_ITS ---
Author Organization [facility] Address [address] [place] [address] Care Team Providers Care Squirt Machine Operator Name Role Phone Alana Epps Primary Care Provider [phone] Leandro Harris [phone] REASON FOR VISIT new patient Social History Sex Assigned At : Social History Observation Description Sex Assigned At Female Encounters Encounter Location Date Provider Diagnosis [address] [place] [address] 09/29/2024 Leandro Harris Plan Of Treatment Next Appt Details Provider Name:Alana patino, 01/24/2025 09:00:00 AM, [address], [place], [address], Progress Notes * Jaycee ROUESDOB:1980 (44 yo F)Acc No.[id number]:09/29/2024 UNLOCKED PROGRESS NOTE Patient: Jaycee AYALA Provider: Sasha Harris DNP, PMHNP-BC :1980 A ge:44 Y S ex:Female Date:09/29/2024 [facility] [facility] Pcp:Alana Epps Structured Data:Is there a n henny you would prefer we call you? (Nombre que prefiere usar) : No Subjective: * Chief Complaints: * 1 . New patient. * Medical History: Objective: * Vitals: Assessment: Plan: * Treatment: * * Electronic signature of Kanu Harris , CLIENT RETENTION SPECIALIST, [id number] on 01/17/2025 at 02:31 AM POST FRAMER Sign off status: Pending * Provider: Sasha Harris DNP, PMHNP- Date: 0 09/29/2024 Generated for Roland felder/Karina/Debbiesmitting on: 1 03/19/2024 02:31 AM POST FRAMER
--- OUTSIDE RECORDS SUMMARY | 2024-10-06 02:20 | XMS_ITS ---
Author Organization [facility] Address [address] [place] [address] Care Team Providers Care Bag Worker Name Role Phone Alana Epps Primary Care Provider [phone] REASON FOR VISIT 1 week f/u Social History Sex Assigned At : Social History Observation Description Sex Assigned At Female Encounters Encounter Location Date Provider Diagnosis [facility] [address] [place] [address] 10/06/2024 Alana Epps Plan Of Treatment Next Appt Details Provider Name:Alana patino, 01/24/2025 09:00:00 AM, [address], [place], [address], Progress Notes * Jaycee ROUSEDOB:1980 (44 yo F)Acc No.[id number]:10/06/2024 UNLOCKED PROGRESS NOTE Patient: Jaycee AYALA Provider: Sasha Epps, MSN, CHANNEL MARKETING COORDINATOR, CRM FUNCTIONAL ANALYST-C :1980 A ge:44 Y S ex:Female Date:10/06/2024 Address:[address], [facility] Structured Data:Is there a n henny you would prefer we call you? (Nombre que prefiere usar) : No Subjective: * Chief Complaints: * 1 . 1 week f/u. * Medical History: Objective: * Vitals: Assessment: Plan: * Treatment: * Care Plan Details* * Electronic signature of Guera Epps APRN, [id number] on 01/17/2025 at 02:31 AM WORD PROCESSING SPECIALIST Sign off status: Pending * Provider: Sasha Epps, MSN, CHANNEL MARKETING COORDINATOR, CRM FUNCTIONAL ANALYST-C Date: 0 10/06/2024 Generated for Roland felder/Karina/Sunny on: 1 03/19/2024 02:31 AM WORD PROCESSING SPECIALIST
--- OUTSIDE RECORDS SUMMARY | 2024-12-28 08:00 | XMS_ITS ---
Author Organization [facility] Address [address] [place] [address] Care Team Providers Care Cognos Bi Administrator Name Role Phone Alana Epps Primary Care Provider Evelyn Wilcox [phone] REASON FOR VISIT CRU Admit Eval Social History Sex Assigned At : Social History Observation Description Sex Assigned At Female Encounters Encounter Location Date Provider Diagnosis [address] [place] [address] 12/28/2024 Evelyn Wilcox Plan Of Treatment Next Appt Details Provider Name:Alana patino, 01/24/2025 09:00:00 AM, [address], [place], [address], Progress Notes * Jaycee ROUSEDOB:1980 (44 yo F)Acc No.[id number]:12/28/2024 UNLOCKED PROGRESS NOTE Patient: Jaycee AYALA Provider: Miriam Wilcox APN :1980 A ge:44 Y S ex:Female Date:12/28/2024 [address] Pcp:Alana Epps Structured Data:Is there a n henny you would prefer we call you? (Nombre que prefiere usar) : No Subjective: * Chief Complaints: * 1 . CRU Admit Eval. * Medical History: Objective: * Vitals: Assessment: Plan: * Treatment: * * Electronic signature of Evelyn Wilcox on 01/17/2025 at 02:31 AM SAW MAKER Sign off status: Pending * Provider: Miriam Wilcox APN Date: 02/28/2024 Generated for Roland Velasco/Sunny on: 03/19/2024 02:31 AM SAW MAKER
[2025-01-17 02:28] VITALS: BP 119/75; PULSE 68; RESP 16; TEMP 35.8; O2SAT 100
--- OUTSIDE RECORDS SUMMARY | 2025-01-17 02:31 | XMS_ITS | Clinical Summary ---
Author Organization [facility] Address Formerly [facility] [place] [address] Care Team Providers Care Pilot Plant Operator Helper Name Role Phone Delisa, May [facility] Primary Care Provider [phone] Allergies Active Allergy Reactions Criticality Noted Date [...] Department Care Team Description 12/25/2024 10:14 PM WOOD FILLER - 12/26/2024 11:40 AM [facility] Emergency [facility] Emergency Room [address] [place] [id number] Rl Virgen MD Baum, Jamie L, MD Chest Pain Discharge Disposition: Left Against Medical Advice 12/25/2024 7:26 PM WOOD FILLER - 12/25/2024 9:07 PM WOOD FILLER Emergency [facility] Emergency Room [address] [place] [address] Rl Virgen MD Chest Pain Discharge Disposition: Home or Self Care (Routine Discharge) 12/25/2024 Travel 12/24/2024 3:59 PM CDT - 12/24/2024 8:20 PM CDT Emergency [facility] Emergency Room [address] [place] [address] Salo Dillon MD Palmer, Aunaly E, MD Chest Pain Discharge Disposition: Home or Self Care (Routine Discharge) 12/24/2024 Travel 12/23/2024 2:42 PM CDT - 12/23/2024 4:51 PM CDT Emergency [facility] Emergency Room [address] [place] [address] Salo Dillon MD Chest Pain Discharge Disposition: Home or Self Care (Routine Discharge) 12/23/2024 Travel 12/17/2024 11:53 PM CDT - 12/18/2024 2:43 AM CDT Emergency [facility] Emergency [address] [place] [address] Billy Mayfield DO Chest Pain Discharge Disposition: Home or Self Care (Routine Discharge) 12/17/2024 Travel 12/15/2024 2:10 AM CDT - 12/15/2024 3:41 AM CDT Emergency [facility] Room [address] [place] [address] Jens Mendoza MD Abdominal Pain Discharge Disposition: Home or Self Care (Routine Discharge) 12/15/2024 Travel 12/14/2024 7:01 PM CDT - 12/14/2024 11:09 PM CDT [facility] [address] [place] [address] Jens Mendoza MD Chest Pain; Shortness Of Breath Discharge Disposition: Home or Self Care (Routine Discharge) 12/14/2024 Travel 10/18/2024 9:46 AM CDT - 10/18/2024 10:30 PM CDT Emergency [facility] [place] [address] [place] [address] Yovana Zamora MD Geldmacher, Kelly J, MD Medical Problem Discharge Disposition: [facility] 10/17/2024 2:59 PM CDT - 10/17/2024 8:00 PM CDT Emergency [place] [facility] Room [address] [place] [address] Familia Carter MD Medical Problem Discharge Disposition: [...] drink = 0.6 oz pur e alcohol) [facility] Utilities Answer Date Recorded In the past 12 months has e [employer], gas, oil, or water [employer] threatened to shut off services in your [...] CDT Gender Identity Female 12/25/2024 10:22 PM WOOD FILLER Sexual Orientation Straight 12/25/2024 10 :22 PM WOOD FILLER Last Filed Vital Signs Vital Sign Reading Time Taken Comments Blood Pressure 91/55 12/26/2024 7:00 AM WOOD FILLER Pulse 57 12/26/2024 7:00 AM WOOD FILLER Temperature 36.5 C (97.7 F) 12/26/2024 7:00 AM WOOD FILLER Respiratory Rate 18 12/25/2024 10:18 PM WOOD FILLER Oxygen Saturation 97% 12/26/2024 7:00 AM WOOD FILLER Inhaled Oxygen Concentration - - Weight 49.9 kg (110 lb) 12/25/2024 10:18 PM WOOD FILLER Height 154.9 cm (5' 1) 12/25/2024 10:18 PM WOOD FILLER Body Mass Index 20.78 12/25/2024 10:18 PM WOOD FILLER Plan of Treatment Health Maintenance Due Date [...] HC URINE TEST STAT 12/25/2024 11:24 PM WOOD FILLER DRUG SCREEN RAPID STAT 12/25/2024 11: 24 PM WOOD FILLER ECG 12-LEAD Routine 12/25/2024 7:28 PM WOOD FILLER CTA CHEST STAT 12/24/2024 5:42 PM CDT [...] (ABNORMAL) DRUG SCREEN RAPID (12/25/2024 11:24 PM WOOD FILLER) Only the most recent of3 resultswithin the time period is included. Pathologist [facility] AMPHETAMINE (U) NONE DETECTED NONE DETECTED 12/25/2024 11:45 PM [facility] BARBITURATES SCREEN (U) NONE DETECTED NONE DETECTED 12/25/2024 11:45 PM [facility] BENZODIAZEPINES SCREEN (U) DETECTED(A) NONE DETECTED 12/25/2024 11:45 PM [facility] BUPRENORPHINE SCREEN (U) DETECTED(A) NONE DETECTED 12/25/2024 11:45 PM [facility] COCAINE METABOLITES (U) NONE DETECTED NONE DETECTED 12/25/2024 11:45 PM [facility] METHAMPHETAMINE (U) DETECTED(A) NONE DETECTED 12/25/2024 11:45 PM [facility] METHADONE (U) NONE DETECTED NONE DETECTED 12/25/2024 11:45 PM [facility] OPIATE SCREEN (U) NONE DETECTED NONE DETECTED 12/25/2024 11:45 PM [facility] OXYCODONE SCREEN (U) NONE DETECTED NONE DETECTED 12/25/2024 11:45 PM [facility] PHENCYCLIDINE PCP (U) NONE DETECTED NONE DETECTED 12/25/2024 11:45 PM [facility] CANNABINOIDS SCREEN (U) NONE DETECTED NONE DETECTED 12/25/2024 11:45 PM [facility] TRICYCLIC ANTIDEPRESSANT SCREEN (U) NONE DETECTED NONE DETECTED 12/25/2024 11:45 PM [facility] Comment: NOTE: RESULTS OF [...] URINE SPECIMEN / Unknown 12/25/2024 11:24 PM WOOD FILLER Rl Virgen MD URINE ORDERABLES Final Result Performing Organization Address City/[facility]/ZIP Co de Phone Number [facility] [address] [place] [address], [place] [phone] * TEST URINE (12/25/2024 11:24 PM WOOD FILLER) Only the most recent of2 resultswithin the time period is included. URINE HCG TEST NEG NEGATIVE 12/25/2024 11:41 PM WOOD FILLER [facility] Comment: VERY DILUTE URINE SPECIMENS MAY NOT CONTAIN SENIOR BUSINESS CONSULTANT LEVELS OF HCG. IF IS STILL SUSPECTED, A SERUM HCG TEST IS RECOMMENDED. URINE SPECIMEN FROM URETHRA / Unknown 12/25/2024 11:24 PM WOOD FILLER Rl Virgen MD URINE ORDERABLES Final Result Performing Organization Address [facility] Co de Phone Number [facility] [address] [place] [address], [place] [phone] * ECG 12 lead (12/25/2024 7:28 PM WOOD FILLER) Only the most recent of7 resultswithin the time period is included. ECG QT 374 [facility] RAD ECG QTC 404 [facility] 12/25/2024 7:28 PM WOOD FILLER Narrative [facility] - 12/25/2024 7:36 PM WOOD FILLER [facility] Test Date: 2024-12-25 Pat Name: JJ SLATER Department: 85 Room: [place] [address] Gender: Female Car Starter: : 1980 Requested By: RL VIRGEN Order Number: [id number] Reading MD: Bubba Reyes Measurements Intervals [place] Rate: 70 P: 74 HI: 126 QRS: 69 QRSD: 97 T: 62 QT: 374 QTc: 404 Interpretive Statements SINUS RHYTHM Compared to ECG 12/24/2024 16:10:34 Sinus bradycardia no longer present FILLER Procedure Note Bubba Reyes MD - 12/25/2024 [facility] Test Date: 2024-12-25 Pat Name: JJ SLATER Department: 85 Room: EXAM 505 Gender: Female Car Starter: : 1980 Requested By: RL VIRGEN Order Number: [id number] Reading MD: Bubba Reyes Measurements Intervals [place] Rate: 70 P: 74 HI: 126 QRS: 69 QRSD: 97 T: 62 QT: 374 QTc: 404 Interpretive Statements SINUS RHYTHM Compared to ECG 12/24/2024 16:10:34 Sinus bradycardia no longer present FILLER us Rl Virgen MD ECG ORDERABLES Final Result [facility] * CTA CHEST (12/24/2024 5:42 PM CDT) Anatomical Region Laterality Modality Chest Computed Tomogra phy 12/24/2024 5:56 PM CDT Impressions 12/24/2024 6:02 PM CDT IMPRESSION: 1. Technically limited evaluation for pulmonary embolism. 2. Stable 9 mm lung nodule. Recommend continued surveillance as above. Referred By: Interpreted By: Everett Peterson MD, 12/24/2024 5:56 PM Narrative 12/24/2024 6:02 PM CDT [facility] [place] [address] Examination: CTA CHEST Clinical history: Chest pain [...] Procedure Note Everett Peterson MD - 12/24/2024 [place] [id number] [facility] [place] [address] Examination: CTA CHEST Clinical history: Chest pain [...] 12/24/2024 4:41 PM CDT [facility] [address] [place] [address] Examination: XR CHEST PORTABLE Exam time: 12/24/2024 [...] Meier MD - 12/24/2024 [facility] [address] [facility] [place] [address] Examination: XR CHEST PORTABLE Exam time: 12/24/2024 [...] - 12.4 SEC 12/24/2024 4:46 PM CDT [facility] INR 1.1 12/24/2024 4:46 PM CDT [facility] Comment: Recommend INR ranges for Oral Anticoagulant Therapy: Mechanical Cardiac Values 2.5-3.5 All others indication 2.0-3.0 12/24/2024 4:10 PM CDT us Salo Dillon MD LABORATORY Final Result [facility] [address] [place] [id number], [place] [phone] * (ABNORMAL) COMPREHENSIVE METABOLIC PANEL (12/24/2024 4:10 PM CDT) Only the most recent of6 resultswithin the time period is included. GLUCOSE 84 70 - 99 MG/DL 12/24/2024 4:35 PM CDT [facility] BUN 21(H) 7 - 18 MG/DL 12/24/2024 4:35 PM CDT [facility] CREATININE S/P/B 0.78 0.55 - 1.02 MG/DL 12/24/2024 4:35 PM CDT [facility] SODIUM S/P/B 139 136 - 145 MMOL/L 12/24/2024 4:35 PM CDT [facility] POTASSIUM S/P/B 4.0 3.5 - 5.1 MMOL/L 12/24/2024 4:35 PM CDT [facility] CHLORIDE S/P/B 103 100 - 108 MMOL/L 12/24/2024 4:35 PM CDT [facility] CO2 31.8 21 - 32 MMOL/L 12/24/2024 4:35 PM CDT [facility] CALCIUM S/P/B 8.5 8.5 - 10.1 MG/DL 12/24/2024 4:35 PM T [facility] BILIRUBIN TOTAL S/P/B 0.5 0.2 - 1.2 MG/DL 12/24/2024 4:35 PM T [facility] TOTAL PROTEIN S/P/B 6.4 6.4 - 8.2 G/DL 12/24/2024 4:35 PM T [facility] ALBUMIN S/P/B 3.4 3.4 - 5.0 G/DL 12/24/2024 4:35 PM T [facility] AST 11(L) 15 - 37 U/L 12/24/2024 4:35 PM CDT [facility] ALT 12(L) 14 - 55 U/L 12/24/2024 4:35 PM CDT [facility] ALKALINE PHOSPHATASE S/P/B 71 50 - 136 U/L 12/24/2024 4:35 PM CDT [facility] ANION GAP 4.2(L) 5 - 15 MMOL/L 12/24/2024 4:35 PM CDT [facility] BUN CREATININE RATIO 26.9(H) 6 - 26 12/24/2024 4:35 PM T [facility] A/G RATIO 1.1 1.0 - 2.0 RATIO 12/24/2024 4:35 PM T [facility] GFR ESTIMATE >90 >90 ML/MIN/1.7 3 M2 12/24/2024 4:35 PM T [facility] Comment: NOTE: eGFR is not calculated for patients <18 years of age. This is an estimated GFR calculation using the new CKD EPI creatinine equation without race and so does not require a correction factor for race. This estimated GFR should not be used for calculating drug doses. 12/24/2024 4:10 PM CDT Salo Dillon MD LABORATORY Final Result [facility] [address] [place] [address], * (ABNORMAL) CBC W/DIFF AUTOMATED (12/24/2024 4:10 PM CDT) Only the most recent of7 resultswithin the time period is included. WBC 5.15 4.4 - 11.0 x10'3/uL 12/24/2024 4:23 PM CDT [facility] RBC 3.80(L) 4.50 - 5.10 x10'6/uL 12/24/2024 4:23 PM CDT [facility] HGB 11.6(L) 12.3 - 15.3 G/DL 12/24/2024 4:23 PM T [facility] HCT 35.3(L) 35.9 - 44.6 % 12/24/2024 4:23 PM CDT [facility] MCV 92.9 80.0 - 96.0 FL 12/24/2024 4:23 PM CDT [facility] MCH 30.5 25.3 - 30.9 PG 12/24/2024 4:23 PM CDT [facility] MCHC 32.9 31.0 - 34.1 G/DL 12/24/2024 4:23 PM T [facility] RDW 13.2 12.4 - 15.1 % 12/24/2024 4:23 PM T [facility] PLT 337 151 - 353 x10'3/uL 12/24/2024 4:23 PM T [facility] MPV 9.6 9.6 - 12.0 FL 12/24/2024 4:23 PM T [facility] RBC MORPHOLOGY NORMAL 12/24/2024 4:23 PM T [facility] PLT MORPH. NORMAL 12/24/2024 4:23 PM T [facility] WBC MORPHOLOGY NORMAL 12/24/2024 4:23 PM CDT [facility] LYMPHOCYTES % 29.5 15.8 - 45.0 % 12/24/2024 4:23 PM CDT [facility] NEUTROPHILS % 59.4 42.1 - 71.9 % 12/24/2024 4:23 PM CDT [facility] MONOCYTES % 8.7 5.7 - 12.5 % 12/24/2024 4:23 PM CDT [facility] EOSINOPHILS 1.2 0.0 - 5.6 % 12/24/2024 4:23 PM CDT [facility] BASOPHILS 1.0 0.0 - 1.3 % 12/24/2024 4:23 PM CDT [facility] ABS. NEUTROPHILS 3.06 1.40 - 6.00 x10'3/uL 12/24/2024 4:23 PM CDT [facility] IMMATURE GRANS % 0.2 0.0 - 0.5 % 12/24/2024 4:23 PM CDT [facility] ABS. LYMPHOCYTES 1.52 0.80 - 4.70 x10'3/uL 12/24/2024 4:23 PM CDT [facility] 12/24/2024 4:10 PM CDT us Salo Dillon MD LABORATORY Final Result [facility] [address] [place] [address], [place] [phone] * TROPONIN, QUANT (12/24/2024 4:10 PM CDT) Only the most recent of4 resultswithin the time period is included. TROPONIN I HIGH SENSITIVITY 6 0 - 50 ng/L 12/24/2024 4:38 PM CDT [facility] Comment: HIGH DOSES OF BIOTIN, TROPONIN-SPECIFIC AUTOANTIBODIES, AND ANTIBODY THERAPY CONTAINING HAMA MAY INTERFERE WITH THIS TEST RESULT. CORRELATION TO CLINICAL HISTORY AND PRESENTATION RECOMMENDED. 12/24/2024 4:10 PM CDT us Salo Dillon MD LABORATORY Final Result [facility] [address] [place] [address], [place] [phone] * LIPASE (12/24/2024 4:10 PM CDT) Only the most recent of2 resultswithin the time period is included. [facility] LIPASE 63 16 - 77 UNITS/L 12/24/2024 4:35 PM CDT [facility] 12/24/2024 4:10 PM CDT Salo Dillon MD LABORATORY Final Result Performing Organization Address City/[facility]/ZIP Co de Phone Number [facility] [address] [place] [address], [place] [phone] * D-DIMER, QUANTITATIVE (12/18/2024 12:00 AM CDT) [facility] D-DIMER 271 0 - 500 ng{FEU}/mL 12/18/2024 1:[address] [facility] EXCLUSION STATEMENT 12/18/2024 1:[address] [facility] Comment: D-Dimer values less than or [...] 12/18/2024 Billy Mayfield DO LABORATORY Final Result [facility] [address] [place] [address], [place] [phone] * HCG QUANT SERUM - CHORIONIC GONADOTROPIN () (12/18/2024 12:00 AM CDT) HCG QUANTITATIVE <1 MIU/ML 12/19/19 1:[address] [facility] Comment: <5 IS NEGATIVE 5-25 IS BORDERLINE >25 IS POSITIVE ASSAY PERFORMED BY CHEMILUMINESCENCE METHODOLOGY USING SIEMENS DIMENSION VISTA REAGENT. PATIENT RESULTS DETERMINED BY ASSAYS USING DIFFERENT MANUFACTURERS FOR METHODS MAY NOT BE COMPARABLE. 12/18/2024 Emily Pineda Antonieta MARTINEZ LABORATORY Final Result [facility] [address] [place] [address], [place] [phone] * CT HEAD WO CON (10/18/2024 8:19 PM CDT) Anatomical Region Laterality Modality Head Computed Tomogra phy 10/18/2024 8:20 PM CDT Impressions 10/18/2024 8:22 PM CDT IMPRESSION: No acute intracranial abnormalities identified. Referred By: Interpreted By: Gaurav Damon DO, 10/18/2024 8:20 PM Narrative 10/18/2024 8:22 PM CDT [place] [address] EXAMINATION: CT head without contrast HISTORY: Confusion. [...] Procedure Note Gaurav Damon DO - 10/18/2024 [facility] [address] [place], [place] [address] EXAMINATION: CT head without contrast HISTORY: Confusion. [...] URINE CLEAN CATCH 10/18/2024 4:30 PM CDT [facility] SPECIAL REQUESTS NO SPECIAL REQUEST 10/18/2024 4:30 PM CDT [facility] CULTURE RESULT POLYMICROBIAL GROWTH CONSISTENT WITH NORMAL GENITAL CAM. SUSCEPTIBILITIES NOT ROUTINELY PERFORMED. 10/19/2024 8:45 AM CDT [facility] URINE SPECIMEN OBTAINED BY CLEAN CATCH PROCEDURE / Unknown 10/18/2024 4:30 PM CDT 10/18/2024 8:10 PM CDT us Yovana Zamora MD MICROBIOLOGY - GENERAL ORDERA BLES Final Result [facility] [address] [place] [address], * RESPIRATORY PCR PANEL 2 (10/18/2024 12:33 PM CDT) Pathologist [facility] ADENOVIRUS PCR (RESP) NOT DETECTED NOT DETECTED 10/18/2024 1:50 PM CDT [facility] CORONAVIRUS 229E PCR (RESP) NOT DETECTED NOT DETECTED 10/18/2024 1:50 PM CDT [facility] CORONAVIRUS HKU1 PCR (RESP) NOT DETECTED NOT DETECTED 10/18/2024 1:50 PM CDT [facility] CORONAVIRUS NL63 PCR (RESP) NOT DETECTED NOT DETECTED 10/18/2024 1:50 PM CDT [facility] CORONAVIRUS OC43 PCR (RESP) NOT DETECTED NOT DETECTED 10/18/2024 1:50 PM CDT [facility] METAPNEUMOVIRUS PCR (RESP) NOT DETECTED NOT DETECTED 10/18/2024 1:50 PM CDT [facility] RHINOVIRUS/ENTEROV IRUS PCR (RESP) NOT DETECTED NOT DETECTED 10/18/2024 1:50 PM CDT [facility] INFLUENZA A PCR (RESP) NOT DETECTED NOT DETECTED 10/18/2024 1:50 PM CDT [facility] INFLUENZA B PCR (RESP) NOT DETECTED NOT DETECTED 10/18/2024 1:50 PM CDT [facility] PARAINFLUENZA 1 PCR (RESP) NOT DETECTED NOT DETECTED 10/18/2024 1:50 PM CDT [facility] PARAINFLUENZA 2 PCR (RESP) NOT DETECTED NOT DETECTED 10/18/2024 1:50 PM CDT [facility] PARAINFLUENZA 3 PCR (RESP) NOT DETECTED NOT DETECTED 10/18/2024 1:50 PM CDT [facility] PARAINFLUENZA 4 PCR (RESP) NOT DETECTED NOT DETECTED 10/18/2024 1:50 PM CDT [facility] RSV PCR (RESP) NOT DETECTED NOT DETECTED 10/18/2024 1:50 PM CDT [facility] B PARAPERTUSIS PCR (RESP) NOT DETECTED NOT DETECTED 10/18/2024 1:50 PM CDT [facility] BORDETELLA PERTUSSIS PCR (RESP) NOT DETECTED NOT DETECTED 10/18/2024 1:50 PM CDT [facility] CHLAMYDOPHILA PNEUMONIAE PCR (RESP) NOT DETECTED NOT DETECTED 10/18/2024 1:50 PM CDT [facility] MYCOPLASMA PNEUMONIAE PCR (RESP) NOT DETECTED NOT DETECTED 10/18/2024 1:50 PM CDT [facility] CORONAVIRUS SARS COV 2 PCR (RESP) NOT DETECTED NOT DETECTED 10/18/2024 1:50 PM CDT [facility] NASOPHARYNGEAL SWAB / Unknown 10/18/2024 12:33 PM CDT us Yovana Zamora MD MICROBIOLOGY - GENERAL ORDERA BLES Final Result [facility] [address] [place] [address], * (ABNORMAL) URINALYSIS, AUTO, COMPLETE (10/18/2024 11:00 AM CDT) SPECIMEN TYPE URINE CLEAN CATCH 10/18/2024 11:01 AM CDT [facility] COLOR (U) DARK BROWN 10/18/2024 11:23 AM CDT [facility] TRANSPARENCY TURBID 10/18/2024 11:23 AM CDT [facility] SPECIFIC GRAVITY (U) 1.034(H) 1.001 - 1.030 10/18/2024 11:23 AM [facility] U PH 5.5 5.0 - 9.0 10/18/2024 11:23 AM [facility] LEUKOCYTES (U) 250(A) NEGATIVE 10/18/2024 11:23 AM [facility] NITRITES NEGATIVE NEGATIVE 10/18/2024 11:23 AM [facility] PROTEIN RANDOM (U) 100(H) <30 MG/DL 10/18/2024 11:23 AM [facility] GLUCOSE (U) NORMAL NORMAL MG/DL 10/18/2024 11:23 AM [facility] KETONES MG/DL (U) 60(A) NEGATIVE MG/DL 10/18/2024 11:23 AM [facility] UROBILINOGEN NORMAL NORMAL MG/DL 10/18/2024 11:23 AM [facility] BILIRUBIN (U) NEGATIVE NEGATIVE MG/DL 10/18/2024 11:23 AM [facility] BLOOD (U) 3+(A) NEGATIVE 10/18/2024 11:23 AM [facility] MUCUS MANY /LPF 10/18/2024 11:23 AM [facility] WBC/HPF >100(H) <6 /HPF 10/18/2024 11:23 AM [facility] RBC/HPF >100(H) <6 /HPF 10/18/2024 11:23 AM [facility] SQUAMOUS EPITHELIALS MODERATE /HPF 10/18/2024 11:23 AM [facility] URINE SPECIMEN OBTAINED BY CLEAN CATCH PROCEDURE / Unknown 10/18/2024 11:00 AM CDT us Yovana Zamora MD URINE ORDERABLES Final Result Performing Organization Address City/[facility] Co de Phone Number [facility] [address] [place] [address], [place] [phone] * (ABNORMAL) MAGNESIUM (10/18/2024 10:45 AM CDT) MAGNESIUM 2.5(H) 1.8 - 2.4 MG/DL 10/18/2024 12:06 PM CDT [facility] 10/18/2024 10:4 5 AM CDT us Yovana Zamora MD LABORATORY Final Result Performing Organization Address [facility] Co de Phone Number [facility] [address] [place] [address], [place] [phone] * (ABNORMAL) SALICYLATE (10/18/2024 10:45 AM CDT) SALICYLATES 2.0(L) 2.8 - 20.0 MG/DL 10/18/2024 11:14 AM CDT [facility] Comment: THERAPEUTIC: 2.8-20.0 Toxic Level: >=30 10/18/2024 10:4 5 AM CDT us Yovana Zamora MD LABORATORY Final Result Performing Organization Address City/[facility]/ZIP Co de Phone Number [facility] [address] [place] [address], [place] [phone] * CK (CPK) (10/18/2024 10:45 AM CDT) CPK 88 21 - 215 U/L 10/18/2024 12:06 PM CDT [facility] 10/18/2024 10:4 5 AM CDT Yovana Zamora MD LABORATORY Final Result Performing Organization Address City/[facility]/ZIP Co de Phone Number [facility] [address] [place] [address], * THYROID STIM HORMONE, TSH (10/18/2024 10:17 AM CDT) TSH 1.380 0.358 - 3.74 uIU/ML 10/18/2024 11:12 AM CDT [facility] Comment: HIGH DOSES OF BIOTIN MAY INTERFERE WITH THIS TEST RESULT. CORRELATION TO CLINICAL HISTORY AND PRESENTATION RECOMMENDED. 10/18/2024 10:1 7 AM CDT Yovana Zamora MD LABORATORY Final Result Performing Organization Address City/[facility] Co de Phone Number [facility] [address] [place] [address], * ETHANOL (10/18/2024 10:17 AM CDT) Only the most recent of2 resultswithin the time period is included. ALCOHOL S/P/B <0.003 <0.003 G/DL 10/18/2024 11:12 AM CDT [facility] 10/18/2024 10:1 7 AM CDT Yovana Zamora MD LABORATORY Final Result Performing Organization Address City/[facility]/ZIP Co de Phone Number [facility] [address] [place] [phone], [place] [phone] * (ABNORMAL) ACETAMINOPHEN (10/18/2024 10:17 AM CDT) ACETAMINOPHEN S/P/B <2.0(L) 10.0 - 30.0 MCG/ML 10/18/2024 11:12 AM CDT [facility] Comment: THERAPEUTIC: 10-30 TOXIC: >200 10/18/2024 10:1 7 AM CDT us Yovana Zamora MD LABORATORY Final Result [facility] [address] [place] [address], * (ABNORMAL) BASIC METABOLIC PANEL (10/17/2024 4:12 PM CDT) SODIUM S/P/B 140 136 - 145 MMOL/L 10/17/2024 5:06 PM CDT [facility] POTASSIUM S/P/B 3.5 3.5 - 5.1 MMOL/L 10/17/2024 5:06 PM CDT [facility] CHLORIDE S/P/B 103 98 - 107 MMOL/L 10/17/2024 5:06 PM CDT [facility] CO2 27.0 21.0 - 32.0 MMOL/L 10/17/2024 5:06 PM CDT [facility] GLUCOSE 98 70 - 99 MG/DL 10/17/2024 5:06 PM CDT [facility] Comment: FASTING GLUCOSE 100 TO 125 MG/DL IS CONSISTENT WITH IMPAIRED FASTING GLUCOSE. FASTING GLUCOSE >125 MG/DL IS CONSISTENT WITH DIABETES. RANDOM GLUCOSE >200 MG/DL WITH HYPERGLYCEMIC SYMPTOMS IS CONSISTENT WITH DIABETES. PER ADA GUIDELINES BUN 18 6 - 24 MG/DL 10/17/2024 5:06 PM CDT [facility] CREATININE S/P/B 1.18(H) 0.55 - 1.02 MG/DL 10/17/2024 5:06 PM CDT [facility] CALCIUM S/P/B 10.0 8.4 - 10.5 MG/DL 10/17/2024 5:06 PM CDT [facility] ANION GAP 10.0 5.0 - 15.0 MMOL/L 10/17/2024 5:06 PM CDT [facility] OSMOLALITY (CALC) 292 MOSM/KG 025 5:06 PM CDT [facility] Comment:REFERENCE RANGE NOT ESTABLISHED GFR ESTIMATE 59(L) >89 ML/MIN/1. 73 M2 10/17/2024 5:06 PM CDT [facility] GFR NOTES GFR REFERENCE S: 10/17/2024 5:06 PM CDT [facility] Comment: THE ESTIMATED GFR IS [...] Carter MD LABORATORY Final Result [facility] [place] [address], * CORONAVIRUS (COVID-19) ANTIGEN (10/17/2024 4:05 PM CDT) CORONAVIRUS ANTIGEN IA NEGATIVE NEGATIVE 10/17/2024 5:06 PM CDT [facility] Comment: NEGATIVE RESULTS DO NOT [...] NASAL 10/17/2024 4:43 PM CDT [facility] NASAL NASAL STRUCTURE / Unknown 10/17/2024 4:05 PM CDT us Familia Carter MD MICROBIOLOGY - GENERAL ORDERAB LES Final Result [facility] [address] [place] [address], * HEPATITIS PANEL,ACUTE (10/13/2023 3:24 AM CDT) HEPATITIS B SURFACE AG NON-REACT VARGHESE NON-REACT VARGHESE 10/13/2023 1:[address] [facility] Comment:HBsAg NOT DETECTED. HEP B CORE IGM NON-REACT VARGHESE NON-REACT VARGHESE 10/13/2023 1:[address] [facility] Comment: IgM ANTI HBc NOT DETECTED. DOES NOT EXCLUDE THE POSSIBILITY OF EXPOSURE TO OR INFECTION WITH HBV. NO RETEST REQUIRED. HIGH DOSES OF BIOTIN MAY INTERFERE WITH THIS TEST RESULT. CORRELATION TO CLINICAL HISTORY AND PRESENTATION RECOMMENDED. HAV IGM NON-REACT VARGHESE NON-REACT VARGHESE 10/13/2023 1:[address] [facility] Comment: IgM ANTI HAV NOT DETECTED. DOES NOT EXCLUDE THE POSSIBILITY OF EXPOSURE TO OR INFECTION WITH HAV. LEVELS OF IgM ANTI HAV MAY BE BELOW THE CUTOFF IN EARLY INFECTION. HEPATITIS C AB NON-REACT VARGHESE NON-REACT VARGHESE 10/13/2023 1:[address] [facility] Comment: ANTIBODIES TO HCV NOT DETECTED. DOES NOT EXCLUDE THE POSSIBILITY OF EXPOSURE TO HCV. 10/13/2023 3:24 AM CDT us Tenisha Cheema MD LABORATORY Final Result Performing Organization Address City/[facility]/ZIP Co de Phone Number 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
--- OUTSIDE RECORDS SUMMARY | 2025-01-17 02:31 | XMS_ITS | Encounter Summary ---
Author Organization [facility] Address [facility] [place] [address] Care Team Providers Care Saw Offbearer Name Role Phone None, Provider Primary Care Provider Diana HerculesMay [facility] Primary Care Provider [phone] Encounter Details Date Type Department Care Team (Late st Contact Info) Description 07/31/2018 Abstract SFL CONVERSION [address] [place] [address] , Generic Conversion, Social History Tobacco Use Types Packs/Day Years Used Date Smoking Tobacco: Never Assessed Comments Unknown Sex and Gender Information Value Date Recorded Sex Assigned at Female 10/17/2024 3:24 PM CDT Legal Sex Female 11:36 PM CDT Gender Identity Female 12/25/2024 10:22 PM SOLUTIONS DEVELOPMENT ANALYST Sexual Orientation Straight 12/25/2024 10 :22 PM SOLUTIONS DEVELOPMENT ANALYST documented as of this encounter Plan of Treatment Not on file documented as of this encounter Visit Diagnoses Not on filedocumented in this encounter Additional Health Concerns Infection Onset Date Last Indicated Resolved Time COVID-19 Rule Out 10/17/2024 10/17/2024 10/17/2024 5:06 PM CDT Respiratory Rule Out 10/18/2024 10/18/2024 025 1:50 PM CDT documented as of this encounter Care Teams Saw Offbearer Relationship Specialty Start Date End Date None, Provider, PCP - General UNKNOWN PHYSICIAN SPECIALTY 07/13/23 DelisaMay, PLANT MAINTENANCE MECHANIC [address] [place] [address] PCP - General Nurse Practitioner Family 12/23/24 documented as of this encounter
--- OUTSIDE RECORDS SUMMARY | 2025-01-17 02:31 | XMS_ITS | Clinical Summary ---
Author Organization [facility] Address [address], [facility] [address] [place] [address] Phone Care Team Providers Care Director Of Engineering Name Role Phone DelisaMay N [facility], RESEARCH BIOSTATISTICIAN Primary Care Provider [phone] Allergies Active Allergy Reactions Criticality Noted Date [...] Nurse Triage [facility] [address] [place] [phone] Wendie Hercules, [employer] [facility], RESEARCH BIOSTATISTICIAN Appointment; Chest Pain 12/19/2024 10:31 AM CDT - 12/19/2024 1:03 PM CDT [facility] [address] [place] [address] Willis Lee, PAC Chest pain Discharge Disposition: Discharged to home or Selfcare 12/19/2024 Travel 12/05/2024 Results Follow-Up [facility] [address] [place] [address] Wendie Hercules, LUIS FELIPE, RESEARCH BIOSTATISTICIAN US THYROID, VITAMIN D, 25 HYDROXY TOTAL, VITAMIN B12, Additional followed-up results: 5 12/02/2024 10:49 AM CDT - 12/02/2024 11:59 PM CDT Hospital Encounter [facility] Ultrasound [address] [place] [address] Wendie Hecrules, [facility] [facility], RESEARCH BIOSTATISTICIAN Discharge Disposition: Discharged to home or Selfcare 12/02/2024 Travel 11/21/2024 2:30 PM CDT Office Visit [facility] [address] [place] [address] Wendie Hercules, [employer], RESEARCH BIOSTATISTICIAN Depression with anxiety (Primary Dx); At risk for sexually transmitted disease due to unprotected sex Discharge Disposition: Discharged to home or Selfcare 11/21/2024 Travel 11/17/2024 9:39 AM CDT - 11/17/2024 11:17 AM CDT Emergency [facility] [address] [place] [address] Hugh Palencia, DO Viral syndrome Discharge Disposition: Discharged to home or Selfcare 11/17/2024 Telephone [facility] [address] [place] [address] Oehl, Wendie Pizarro APRN, CNP 11/17/2024 Nurse Triage [facility] Call Center [address] [place] [address] Wendie Hercules APRN, CNP Breathing Problem 11/16/2024 2:15 PM CDT Office Visit [facility] [address] [place] [address] Óscar Doss APRN, ELVIA Chest discomfort (Primary Dx) Discharge Disposition: Discharged to home or Selfcare 11/16/2024 Documentation Only [facility] Mammography [address] [place] [address] Wendie Hercules APRN, CNP 11/15/2024 10:03 PM CDT - 11/16/2024 12:06 AM CDT Emergency [facility] Emergency [address] [place] [address] Billy Cagle MD Chest pain, unspecified type Discharge Disposition: Discharged to home or Selfcare 11/15/2024 Travel 11/11/2024 Telephone [facility] [address] [place] [address] Wendie Hercules APRN, ELVIA Need Order 10/21/2024 2:00 PM CDT Office Visit [facility] [address] [place] [address] Wendie Hercules APRN, ELVIA Encounter for preventative adult health care exam with abnormal findings (Primary Dx); History of methadone use; Anxiety and depression; Nodule of left lobe of thyroid gland; Vaginal pain; Encounter for screening mammogram for breast cancer Discharge Disposition: Discharged to home or Selfcare 10/21/2024 Travel 10/21/2024 Telephone [facility] Call Center [address] [place] [address] Provider, None New Patient from Last 3 [...] DIAGNOSTIC ORDERABLES Final Result Performing Organization Address City/[facility] Co de Phone Number SCAN [...] CHEMISTRY ORDERABLES Final Result Performing Organization Address City/[facility] de Phone Number [facility] [address] [place] [address] * NT-proBNP (12/19/2024 10:44 AM CDT) NT [...] Willis Lee PAC CHEMISTRY ORDERABLES Final Result [facility] [address] [place] [address] * (ABNORMAL) CBC with Auto Differential (12/19/2024 10:44 AM CDT) Only the most recent of4 resultswithin the time period is included. WBC 5.71 4.00 - 12.00 10(3)/mcL 12/19/2024 10:52 AM CDT [facility] RBC 4.01 3.80 - 5.30 10(6)/mcL 12/19/2024 10:52 AM CDT [facility] HEMOGLOBIN (HGB) 12.2 12.0 - 15.8 g/dL 12/19/2024 10:52 AM CDT [facility] HEMATOCRIT (HCT) 37.7 36.0 - 47.0 % 12/19/2024 10:52 AM CDT [facility] MCV 94.0 82.0 - 96.0 [...] LAB ABSOLUTE NEUTROPHILS 4.01 1.60 - 7.70 10(3)/[facility] 12/19/2024 10:52 AM CDT [facility] ABSOLUTE LYMPHOCYTES 1.15(L) 1.30 - 3.20 10(3)/[facility] 12/19/2024 10:52 AM CDT [facility] ABSOLUTE MONOCYTES 0.46 0.20 - 1.00 10(3)/[facility] 12/19/2024 10:52 AM CDT [facility] ABSOLUTE EOSINOPHIL 0.04 0.00 - 0.40 10(3)/[facility] 12/19/2024 10:52 AM CDT [facility] ABSOLUTE BASOPHILS 0.04 0.00 - 0.10 10(3)/[facility] 12/19/2024 10:52 AM CDT [facility] ABSOLUTE IMMATURE GRANULOCYTE 0.01 0.00 - 0.03 10 (3) mcL. 12/19/2024 10:52 AM CDT [facility] NRBC PER 100 WBC 0 12/20/19 10:52 AM CDT [facility] Blood Venipuncture / Unknown 12/19/2024 10:44 AM CDT 12/19/2024 10:50 AM CDT Willis Lee PAC HEMATOLOGY ORDERABLE S Final Result [facility] [place] [address] * Magnesium (12/19/2024 10:44 AM CDT) Only the most recent of2 resultswithin the time period is included. MAGNESIUM 2.1 1.6 - 2.6 mg/dL 12/19/2024 11:13 AM CDT [facility] Blood Venipuncture / Unknown 12/19/2024 10:44 AM CDT 12/19/2024 10:50 AM CDT Willis Lee PAC CHEMISTRY ORDERABLES Final Result [facility] [place] [address] * Ethyl Alcohol(Ethanol) [id number] (12/19/2024 10:44 AM CDT) ETHANOL <10 <10 mg/dL 12/19/2024 11:13 AM CDT [facility] Blood Venipuncture / Unknown 12/19/2024 10:44 AM CDT 12/19/2024 10:50 AM CDT Narrative [facility] - 12/19/2024 11:13 AM CDT FOR MEDICAL USE ONLY Willis Lee PAC CHEMISTRY ORDERABLES Final Result [facility] [place] [address] * CMP (12/19/2024 10:44 AM CDT) Only [...] - 18 mg/dL 12/19/2024 11:13 AM CDT [facility] CREATININE, BLOOD 0.74 0.60 - 1.00 mg/dL 12/19/2024 11:13 AM CDT [facility] BUN/CREATININE RATIO 12 12 - 20 ratio 12/19/2024 11:13 AM CDT [facility] TOTAL PROTEIN 7.4 6.0 - 8.0 g/dL 12/19/2024 11:13 AM CDT [facility] ALBUMIN 4.4 3.5 - 5.0 g/dL 12/19/2024 11:13 AM CDT [facility] A/G RATIO 1.5 1.0 - 2.2 12/19/2024 11:13 AM CDT [facility] CALCIUM 9.4 8.7 - 10.5 mg/dL 12/19/2024 11:13 AM CDT [facility] T BILI 0.5 0.2 - [...] GFR, EST. >60 >=60 11:13 AM CDT [facility] Comment: Creatinine Clearance is the preferred criteria for selecting drug dose adjustments in renally impaired patients. The GFR is provided as additional pertinent clinical information. GFR is reported in mL/min/1.73 sq m. Calculation based on the 2009 Chronic Kidney Disease Epidemiology Collaboration (CKD-EPI). GFR, EST. NONAFRICAN >60 >=60 12/19/2024 11:13 AM CDT [facility] [...] Willis Lee PAC CHEMISTRY ORDERABLES Final Result [facility] [address] [place] [address] * EKG 12 LEAD (12/19/2024 10:36 AM CDT) Only the most recent of3 resultswithin the time period is included. Ventricular Rate 70 BPM EXTERNAL EKG Atrial Rate 70 BPM EXTERNAL EKG P-R Interval 118 ms EXTERNAL EKG QRS Duration 90 ms EXTERNAL EKG Q-T Duration 384 ms EXTERNAL EKG QTC CALCULATION 414 ms EXTERNAL EKG P Guinda 63 degrees EXTERNAL EKG R Guinda 60 degrees EXTERNAL EKG T Guinda 52 degrees EXTERNAL EKG 12/19/2024 10:3 6 AM CDT Impressions EXTERNAL EKG - 12/19/2024 4:09 PM CDT Normal sinus rhythm Normal ECG When compared with ECG of 17-NOV-2024 09:47, No significant change was found Confirmed by Jn Nguyen ([id number]) on 12/19/2024 4:09:26 PM Narrative Procedure Note Jn Nguyen MD PhD - 12/19/2024 IMPRESSION: Normal sinus rhythm Normal ECG When compared with ECG of 17-NOV-2024 09:47, No significant change was found Confirmed by Jn Nguyen ([id number]) on 12/19/2024 4:09:26 PM us Billy Cagle MD IMG ECG ORDERABLES Final Result Performing Organization Address City/[facility] Co de Phone Number EXTERNAL [...] PHYSICIAN: Mickey Mccarty D.O. - [facility] US THYROID, 12/02/2024 [...] (2) with internal vascularity. Echogenicity: Hyperechoic (1). Yubdqj-ousi-[id number]: no (0). Margins: Smooth (0). Echogenic foci: None (0). ACR TI-RADS Classification: TR 3 (3 points) Procedure Note Mickey Mccarty, DO - 12/03/2024 DICTATING PHYSICIAN: Mickey Mccarty D.O. - [facility] US THYROID, 12/02/2024 11:09 [...] solid (2) with internalvascularity. Echogenicity: Hyperechoic (1). Obzvld-tioa-Jwcu: no (0). Margins: Smooth (0). Echogenic foci: [...] 2017 [employer]. May N Delisa BRISCOE CNP [facility] US ORDERABLES Final R esult * VITAMIN [...] in conjunction with clinical findings and suspicions. [employer] Clinical Practice Guidelines: Status Vitamin D levels (ng/mL) Deficient <=20 At risk of inadequacy 21-29 Sufficient 30-100 Centers of Disease Control and Prevention Guidelines: Status Vitamin D levels (ng/mL) Deficient <13 At risk of inadequacy 13-19 Sufficient 20-50 Possibly harmful >50 References: [employer], 2010 Dietary reference intakes for calcium and vitamin D. [place]: The National Academies Press. Betsy M, Ariadne N, Glen ZAMUDIO, et al., Evaluation, treatment, and prevention of Vitamin D deficiency: an Endocrinology Clinical Practice Guideline. JCEM 2011 96: 7 6987-6306. Kenan A, Desmond C, Tyra D, et al., Vitamin D Status: [place], 9654-8613, NCHS data brief, no. 59, MD [place]: National Center for Health Statistics. 2010. May N Delisa BRISCOE CNP CHEMISTRY ORDERABLES Adelaide l Result [facility] [address] [place] [address] * THYROID SCREEN WITH REFLEX (12/02/2024 10:47 AM CDT) TSH 1.382 0.300 - 5.000 mIU/L 12/02/2024 12:07 PM CDT [facility] Blood Venipuncture / Unknown 12/02/2024 10:47 AM CDT 12/02/2024 11:12 AM CDT us May N Delisa BRSICOE, RESEARCH BIOSTATISTICIAN CHEMISTRY ORDERABLES Adelaide l Result [facility] [address] [place] [address] * VITAMIN B12 (12/02/2024 10:47 AM CDT) VITAMIN B12 418 213 - 816 pg/mL 12/02/2024 12:19 PM CDT [facility] Blood Venipuncture / Unknown 12/02/2024 10:47 AM CDT 12/02/2024 11:12 AM CDT May N Delisa BRISCOE, RESEARCH BIOSTATISTICIAN CHEMISTRY ORDERABLES Adelaide l Result Performing Organization Address City/[facility]/ZIP Co de Phone Number [facility] [address] [place] [address] * THYROXINE (T4) FREE (12/02/2024 10:47 AM CDT) T4 FREE 0.8 0.7 - 1.9 ng/dL 12/02/2024 12:08 PM CDT [facility] Blood Venipuncture / Unknown 12/02/2024 10:47 AM CDT 12/02/2024 11:12 AM CDT us May N Delisa BRISCOE, RESEARCH BIOSTATISTICIAN CHEMISTRY ORDERABLES Adelaide l Result [facility] [address] [place] [address] * LIPID PANEL (12/02/2024 10:47 AM CDT) CHOLESTEROL 175 <200 mg/dL 12/02/2024 11:54 AM CDT [facility] TRIGLYCERIDES 127 <150 mg/dL 12/02/2024 11:54 AM CDT [facility] HDL CHOLESTEROL 55 >40 mg/dL 11:54 AM CDT [facility] LDL 95 <130 mg/dL 12/02/2024 11:54 AM CDT [facility] VLDL 25 10 - 50 mg/dL 12/02/2024 11:54 AM T [facility] CHOL/HDL RATIO 3.2 0.0 - 4.4 12/02/2024 11:54 AM CDT [facility] NON-HDL CHOLESTEROL 120 <130 mg/dL 12/02/2024 11:54 AM [facility] IS THE PATIENT REQUIRED TO BE FASTING? Yes 12/02/2024 11:54 AM [facility] HAS THE PATIENT BEEN FASTING? Yes 12/02/2024 11:54 AM [facility] Blood Venipuncture / Unknown 12/02/2024 10:47 AM CDT 12/02/2024 11:12 AM CDT Narrative [facility] - 12/02/2024 11:54 AM T [...] for LDL cholesterol. us May N Oehl [facility], RESEARCH BIOSTATISTICIAN CHEMISTRY ORDERABLES Adelaide l Result Performing Organization Address City/[facility]/ZIP Co de Phone Number [facility] [address] [place] [address] * RSV,SARS-COV-2,INFLUENZA A&B BY PCR (11/17/2024 9:55 [...] test was perfor med by a Reverse Pineapple Plantation Manager PCR Method. Nasal NASOPHARYNGEAL STRUCTURE / Unknown Non-Phlebotomy Collection / Unknown 11/17/2024 9:55 AM CDT 11/17/2024 10:36 AM CDT us Hugh Palencia DO MICROBIOLOGY - GENERAL ORDERABLES Final Result Performing Organization Address [facility] Co de Phone Number [facility] [address] [place] [address] * Gold Top Tube (11/17/2024 9:45 AM CDT) Blood No Phlebotomy Charged / Unknown 11/17/2024 9:45 AM CDT 11/17/2024 10:38 AM CDT us Hugh Palencia DO CHEMISTRY ORDERABLES Fi nal Result Performing Organization Address City/[facility]/ZIP Co de Phone Number [facility] [address] [place] [address] * Blue Top Tube (11/17/2024 9:45 AM CDT) Blood No Phlebotomy Charged / Unknown 11/17/2024 9:45 AM CDT 11/17/2024 10:38 AM CDT us Hugh Chemo Palencia DO HEMATOLOGY ORDERABLES F inal Result [facility] [place] [address] * XR CHEST SINGLE VIEW PORTABLE (11/15/2024 [...] Result * Human Chorionic Gonadotropin Scrn Serum [id number] (11/15/2024 10:26 PM CDT) PREG-HCG Negative Negative 11/15/2024 11:28 PM CDT [facility] Blood Venipuncture / Unknown 11/15/2024 10:26 PM CDT 11/15/2024 11:06 PM CDT Billy Cagle MD CHEMISTRY ORDERABLES Adelaide l Result Performing Organization Address City/[facility]/ZIP Co de Phone Number [facility] [address] [place] [address] * Lipase (11/15/2024 10:26 PM CDT) LIPASE 19 8 - 78 U/L 11/15/2024 11:28 PM CDT [facility] Blood Venipuncture / Unknown 11/15/2024 10:26 PM CDT 11/15/2024 11:06 PM CDT Billy Cagle MD CHEMISTRY ORDERABLES Adelaide l Result Performing Organization Address City/[facility]/ZIP Co de Phone Number [facility] [address] [place] [address] from Last 3 Months Insurance MEDICAID [place] Care Teams Director Of Engineering Relationship Specialty Start Date End Date Delisa, May N, [facility], RESEARCH BIOSTATISTICIAN [address] [address] PCP - General Advanced Practice Nurse 10/21/24
--- OUTSIDE RECORDS SUMMARY | 2025-01-17 02:31 | XMS_ITS | Clinical Summary ---
Author Organization [facility] Address [address] [place] [address] Care Team Providers Care Direct Support Staff Name Role Phone Mario Logan MD Primary Care Provider Source Comments [facility],non-owned Affiliates and Associated Physician Practices is amultiple site organization consisting of ambulatory clinics and hospital sitesin [place], [place] and [place]. This disclosure is being madepursuant to the Care Everywhere program and may not contain all information available regarding this patient. Last updated 17.[facility] Allergies Active Allergy Reactions Criticality Noted Date [...] naloxone HCl (NARCAN) 4 MG/0.1ML nasal spray [place] 1 spray into the nose as needed [...] migh t be different from the original. [id number] Problem Noted Date Diagnosed Date Non-reactive NST [...] 02/28/2014 Overview (05/05/2019): Confirmed dose-270 mg from [facility]. Scanned Into media. Previously used heroin [...] 05/30/04: neg 2000: CRISTIAN 3 s/p LEEP [place] Evaluate anatomy not seen on prior sonogram [...] on file Legal Sex Female 7:09 AM HEAT TRANSFER TECHNICIAN Gender Identity Not on file Sexual Orientation [...] P24 AG PANEL Routine 03/10/2019 1:24 PM HEAT TRANSFER TECHNICIAN Supervision of high risk in second trimester PAP LB HPV HR DNA Routine 11/11/2018 12: 09 PM CDT Cervical cancer screening HEPATITIS C ANTIBODY Routine 11/11/2018 12:07 PM CDT Supervision of high risk , antepartum from Last 3 Months or Most Recently Relevant to Health Maintenance Results * HIV-1 HIV-2 ANTIBODY + HIV P24 AG PANEL (03/10/2019 1:24 PM HEAT TRANSFER TECHNICIAN) HIV1/2 Ab + P24 Ag Non Reactive Non Reactive 03/10/2019 2:57 PM HEAT TRANSFER TECHNICIAN [facility] Blood BLOOD SPECIMEN / Unknown Venipuncture / Unknown 03/10/2019 1:24 PM HEAT TRANSFER TECHNICIAN 03/10/2019 1:49 PM HEAT TRANSFER TECHNICIAN Narrative [facility] - 03/10/2019 2:57 PM HEAT TRANSFER TECHNICIAN No Laboratory evidence of HIV infection. us Ivana Thomas COCOA MILL OPERATOR-PEBBLE MILL OPERATOR LAB - CHEMISTRY ORDERAB LES Final Result [facility] [address] [place] [address] * PAP LB HPV HR DNA (11/11/2018 12:09 PM CDT) Diagnosis Comment 11/15/2018 8:07 PM CDT [facility] ([facility]) Comment:NEGATIVE FOR INTRAEP ITHELIAL LESION OR MALIGNANCY. Specimen Adequacy Comment 019 8:07 PM CDT [facility] ([facility]) Comment: Satisfactory for evaluation. No endocervical component is identified. An endocervical component is not commonly seen in the patient. Performed by Comment 11/15/2018 8:07 PM CDT [facility] ([facility]) Comment:Bernarda Hutchins Film Sound Coordinator (ASCP) Comment . 11/15/2018 8:07 PM CDT [facility] ([facility]) Note Comment 11/15/2018 8:07 PM CDT [facility] ([facility]) Comment: The Pap smear is a screening test designed to aid in the detection of premalignant and malignant conditions of the uterine cervix. It is not a diagnostic procedure and should not be used as the sole means of detecting cervical cancer. Both false-positive and false-negative reports do occur. Human papillomavirus High Risk Negative Negative 11/15/2018 8:07 PM CDT [facility] ([facility]) Comment: This high-risk HPV test detects thirteen high-risk types (16/18/31/33/35/39/45/51/52/56/58/59/68) without differentiation. Pathology/Cytolo gy ENTIRE ENDOCERVIX / Unknown Collection / Unknown 11/11/2018 12:09 PM CDT 11/11/2018 12:27 PM CDT Narrative [facility] ([facility]) - 11/15/2018 8:07 PM CDT Performed at: 01 - [address] [id number] Ad Terminal Makeup Operator: Onelia Barbosa MD, Phone: [phone] Performed at: - [facility] [id number] Ad Terminal Makeup Operator: Onelia Barbosa MD, Phone: [phone] Specimen Comment: Source.............Endocervix Specimen Comment: LMP / Prev Treat...Conization;[place] / BX Specimen Comment: Other.............. Specimen Comment: No. of containers..01 ThinPrep Vial Helen Zurita COCOA MILL OPERATOR-[facility] LAB - PATHOLOGY/CYTOLO GY ORDERABLES Final Result [facility] ([facility]) [address] [place] [address] * HEPATITIS C ANTIBODY (11/11/2018 12:07 PM CDT) HCV Antibody Screen Non Reactive Non Reactive 11/11/2018 1:55 PM CDT [facility] HCV S/C Ratio 0.19 0.00 - 0.79 11/11/2018 1:55 PM CDT [facility] Comment: Peqxkt-vg-blggtd ratio (S/CO) <0.80: Non Reactive Blood BLOOD SPECIMEN / Unknown Venipuncture / Unknown 11/11/2018 12:07 PM CDT 11/11/2018 12:56 PM CDT Narrative [facility] - 11/11/2018 1:55 PM CDT Non Reactive - Antibodies to Hepatitis C virus (HCV) were not detected, result does not exclude early acute HCV infection. Helen Zurita [facility] - CHEMISTRY ORDERA BLES Final Result Performing Organization Address [facility] Co de Phone Number [facility] [address] [place] [address] from Last 3 Months or Most Recently Relevant to Health Maintenance Insurance [facility] Advance Directives * Full Code (Latest [...] 11:00 AM 03/17/2019 7:31 PM Care Teams Direct Support Staff Relationship Specialty Start Date End Date Mario Logan MD [address] [place] [id number] PCP - General 05/24/19
--- OUTSIDE RECORDS SUMMARY | 2025-01-17 02:31 | XMS_ITS | Patient Health Record ---
Author Organization [facility] Address [address] [place] [address] Care Team Providers Care Warranty Administrator Name Role Phone VicentelarissaAlana naylor Primary Care Provider Kasey Ny Unavailable [phone] Ava Hernandez Unavailable [phone] Leandro Harris Unavailable [phone] Ana Verma Unavailable [phone] Braxton Costa Unavailable [phone] Evelyn Wilcox Unavailable [phone] Princess Harvey Unavailable [phone] Allergies Allergen (clinical drug ingredient) Drug/Non Drug Allergy documented on EMR Reaction Allergy Type Onset Date Status Penicillin rash Drug Allergy Active Results Component Value Reference Range Notes QuantiFERON-TB Gold Plus (18 9775) Reviewed date:09/22/2024 02:30:29 PM Interpretation:Normal Performing Lab:[facility], [address], [place], Phone - [phone], [facility] Notes/Report: QuantiFERON Incubation Incubation performed. QuantiFERON-TB Gold [...] neg 14 Panel Urine Drug Screen Reviewed date:12/27/2024 10:41:02 AM Interpretation: Performing Lab: Notes/Report: THC neg CHRISTOPHER neg MOP (OPI) neg AMP neg MET pos BAR neg BZO pos MDMA neg MTD neg OXY neg PCP neg BUP pos TCA neg FTY neg Breathalyzer Reviewed date:09/20/2024 03:01:30 PM Interpretation: Performing Lab: Notes/Report: SHERI 0.000 Test, Urine Reviewed date:09/20/2024 03:01:25 PM Interpretation: Performing Lab: Notes/Report: Test, Urine neg Negative - Negative HIV Screen *HIV 1, 2 Ab, p24 Ag ([id number]) Reviewed date:09/21/2024 02:19:40 PM Interpretation:Normal Performing Lab:[facility] [place], [address], Phone - [phone], [facility] Notes/Report: HIV Ab/p24 Ag Screen Non Reactive Non Reactive HIV-1/HIV-2 antibodies and HIV-1 p24 antigen were NOT detected. There is no laboratory evidence of HIV infection. HIV Negative CMP 14 Comprehensive Metabol ic Panel* Reviewed date:09/21/2024 02:19:40 PM Interpretation:Normal Performing Lab:[facility], [address], Phone - [phone], Director - [facility] Notes/Report: Glucose 73 70-99 mg/dL [...] Reviewed date:09/21/2024 02:19:40 PM Interpretation:Normal Performing Lab:[facility] [place], [address], [place], Phone - [phone], Director - Eryn Notes/Report: WBC 5.9 3.4-10.8 [...] neg TCA neg FTY neg Breathalyzer Reviewed date:12/27/2024 11:14:11 AM Interpretation: Performing Lab: Notes/Report: SHERI 0.000 Test, Urine Reviewed date:12/27/2024 11:14:39 AM Interpretation: Performing Lab: Notes/Report: Test, Urine neg Negative - Negative 14 Panel Urine Drug Screen Reviewed date:11/15/2024 [...] with others, in a hotel, in a nursing home, living outside on the street, on a [...] phone, visiting friends or family, going to uatsdin or club meetings) 1 or 2 times a week How stressed are you? Stress is when someone feels tense, nervous, anxious, or can\t sleep at night because their mind is troubled Quite a bit In the past year have you sp ent more than 2 nights in a row in a correction, fci, senior living center, or juvenile correctional facility? 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 confirmed Problem Opioid use disorder (7240442065) Opioid use disorder (F11.99) Active confirmed Problem Tobacco user (711518915) Nicotine dependence with current use (F17.200) Active confirmed Vital Signs Heart Rate 69 /min 01/10/2025 Temperature 97.9 degrees Fahrenheit 10/21/2024 Respiratory Rate 16 /min 01/10/2025 Oximetry 96 % 01/10/2025 Blood pressure diastolic 62 mm Hg 01/10/2025 Height 61 in 01/10/2025 Blood pressure systolic 104 mm Hg 01/10/2025 Weight 128.4 lbs 01/10/2025 BMI 24.26 kg/m2 01/10/2025 Encounters Encounter Location Date Provider Diagnosis [facility] [address] [place] [address] 09/20/2024 Alana Epps Methamphetamine use disorder, mild, in early remission F15.10 ; Opioid use disorder F11.99 ; Routine general medical examination at a health care facility Z00.00 and Nicotine dependence with current use F17.[address] [place] [address] 09/20/2024 Ava Hernandez Methamphetamine use disorder, mild, in early remission F15.10 and Bipolar 1 disorder, depressed F31.[address] [place] [address] 09/21/2024 Kasey Ny Bipolar 1 disorder, depressed F31.9 [facility] [address] [place] [address] 09/26/2024 Braxton Costa Thyroid nodule E04.1 ; Benign paroxysmal vertigo, bilateral H81.13 ; Systolic murmur I38 and Over weight E66.3 [facility] [address] [place] [address] 10/21/2024 Alana Epps Opioid use disorder F11.99 [facility] [address] [place] [address] 11/15/2024 Alana Epps Opioid use disorder F11.99 [facility] [address] [place] [address] 12/27/2024 Alana Epps Opioid use disorder F11.99 ; Nicotine dependence with current use F17.200 and Routine general medical examination at a health care facility Z00.00 [facility] [place] [address] 12/27/2024 Princess Harvey Substance abuse F19. [address] [place] [address] 12/29/2024 Kasey Ny Bipolar 1 disorder, depressed F31.9 [address] [place] [address] 01/10/2025 Alana Epps Opioid use disorder F11.99 and Nicotine dependence with current use F17.[address] [address] 09/19/2024 Alana Epps [facility] [place] [address] 09/20/2024 Alana Epps [address] [place] [address] 09/29/2024 Alana Epps Opioid use disorder F11.99 [address] [place] [address] 10/13/2024 Alana Epps Assessments Encounter Date Diagnosis [...] or be administered own oral medications per [facility] protocols. Provided informed consent with understanding of [...] or be administered own oral medications per [facility] protocols. Provided informed consent with understanding of [...] - E66.3) 09/20/2024 Other Clinician met [facility] client to assess needs for [...] self-administe r their own oral medications per [facility] Protocol. 12/27/2024 Other Discussed medication side effects, adverse effects, risks, benefits, as well as interactions. Encouraged non-use of opioids. Has naloxone. Recommended participation in recovery groups and/or counseling services. May contact office with questions or concerns. Patient may self-administe r their own medications or may self-administe r their own oral medications per [facility] Protocol. 12/27/2024 Other Clinician met [facility] client to assess needs for [...] self-administe r their own oral medications per [facility] Protocol. Plan Of Treatment Future Test Test Name Order Date Echo doppler exam 09/26/2024 Ultrasound : Thyroid 09/26/2024 Next Appt Details Provider Name:Alana patino, 01/24/2025 09:00:00 AM, [address], [place], [address], Insurance Providers Payer Name Payer Address Payer Phone Subscriber Number Group Number Insured Name Patient Relationship to Insured Coverage Start Date Coverage End Date [employer] [address] [place] [address] [phone] [id number] Jaycee Rouse Self - patient is the insured 3 [employer] [address] [place] [phone] [id number] Jaycee Rouse Self - patient is the insured 5 [employer] [address] [place] [address] [phone] [id number] Jaycee Rouse Self - patient is the insured 5 Medical (General) History Medical History History ICD Code Manic Depression Opioid use disorder Surgical History Surgery Date(Month/Year) 3 c-sections right hand has pins gall bladder removed Hospitalization History Reason Date(Month/Year) gateway, multiple times between 2023- 5 06/2024
--- NOTE | 2025-01-17 02:38 | ED_ITS ---
HPI - Back Pain/Injury General Chief Complaint: Back Pain/Injury Stated Complaint: CHEST BURNING Time Seen by Provider: 01/17/25 02:37 Source: patient Mode of arrival: ambulatory History of Present Illness HPI Narrative: 44 years old white female came to the ED walking complaining of chest burning sensation and upper back pain all day long. Patient report inability to sleep that is why beats not come air leak to be. Patient is telling me that she had smoked meth early yesterday. She denies any cocaine use. Patient denies any suicidal or homicidal ideation she reports a lot of stress. Related Data Home Medications ?Medication ?Instructions ?Recorded ?Confirmed ?Last Taken ?Type buprenorphine 8 mg-naloxone 2 mg 1 tablet sublingual D AILY 12/15/24 12/21/24 Unk nown History sublingual tablet Allergies Allergy/AdvReac Type Severity Reaction Status Date / Time Penicillins Allergy Severe Difficulty Verified 01/17/25 02:35 Swallowing codeine AdvReac Swelling Verified 01/17/25 02:35 Review of Systems Review of Systems: All systems reviewed & are unremarkable except as noted in HPI and below PMFSH Past Medical History Medical History Drug abuse Tooth decay Surgical History Surgical History History of x3 Family History Family History Father No problems noted. Father Lung cancer Mother Heart disease Social History Social History Years smoked: 20 Smoking status: Current every day smoker Tobacco type: cigarettes Second hand tobacco smoke exposure: Yes Alcohol intake: former Substance use: former Substance use type: methamphetamine Gender identity (if verbalized by the patient): Female Spiritual care concerns: No Exam Narrative: General appearance: Well-developed, well-nourished, looks depressed Skin: Normal color Head: Normocephalic, nontraumatic Eyes: Clear conjunctiva ENT: Oropharynx normal, ears normal, nose normal Neck: Supple, nontender Chest and respiratory: Airway patent, no respiratory distress, no accessory muscle use Heart: Regular rate/rhythm Abdomen: Soft, nontender, no organomegaly, quiet bowel sounds Musculoskeletal: Normal range of motion, nontender back Neurologic: Alert and oriented ?3, HARDNESS TESTER is normal as tested, no gross motor deficit Course Vital Signs Vital signs: Vital Signs Temperature 35.8 C L 01/17/25 02:28 Pulse Rate 68 01/17/25 02:28 Respiratory Rate 16 01/17/25 02:28 Blood Pressure 119/75 01/17/25 02:28 Pulse Oximetry 100 01/17/25 02:28 Oxygen Delivery Room Air 01/17/25 02:28 Temperature 35.8 C L 01/17/25 02:28 Pulse Rate 68 01/17/25 02:28 Respiratory Rate 16 01/17/25 02:28 Blood Pressure 119/75 01/17/25 02:28 Pulse Oximetry 100 01/17/25 02:28 Oxygen Delivery Room Air 01/17/25 02:28 MDM - Back Pain/Injury MDM Narrative Medical decision making narrative: Patient presents with chest burning and upper back pain, trouble sleeping Vital signs are stable Physical examination showing anxious depressed looking patient Differential diagnosis anxiety, insomnia EKG showed normal sinus rhythm Patient declined chest x-ray because she had 1 yesterday. She asked for anxiety medicine, Ativan 1 mg p.o. given. Diagnosis anxiety, depression, drug abuse The pt was discharged to home.the pt,s condition upon discharge was fair,education was provided to the pt in reference to the final impression,discharge study results,treatment,prognosis and need for follow up . Differential Diagnosis Differential diagnosis: Likely other (As above) ECG Data EKG #1: Attestation: I personally reviewed and interpreted this ECG as follows: ECG completion date: 01/17/25 Interpretation: Normal sinus rhythm at 63 beats per minute, possible left atrial enlargement, baseline artifact-borderline EKG, compared to EKG on December 23 no significant changes Critical Care Time Critical Care Time Critical Care Time: No Discharge Plan Discharge Clinical Impression: Insomnia, Depression Patient Disposition: Home Condition: Stable Instructions: Depression (ED), Insomnia (ED) Additional Instructions: Return if symptoms are worsening , call your family physician for appointment, take Tylenol as as needed for aches and pain, continue home medications. Patient Language: Andorran Prescriptions: No Action buprenorphine-naloxone 8-2 mg tablet, sublingual 1 tablet sublingual DAILY Follow-up/Referrals: UNKNOWN,DOCTOR [Primary Care Provider]
--- NOTE | 2025-01-17 02:38 | ECG_ITS ---
Test Date: 2025-01-17 02:45:06 Measurements Intervals [place] Rate: 63 P: 75 WI: 128 QRS: 67 QRSD: 97 T: 63 QT: 417 QTc: 429 Interpretive Statements SINUS RHYTHM POSSIBLE LEFT ATRIAL ENLARGEMENT [-0.1mV P-WAVE IN V1/V2] POSSIBLE LEFT VENTRICULAR HYPERTROPHY [VOLTAGE CRITERIA PLUS LAE OR QRS WIDENING] BORDERLINE ECG Compared to ECG 12/23/2024 06:19:25 NO SIGNIFICANT CHANGE Electronically Signed On 01-17-2025 17:39:07 NAIL PROFESSIONAL by Francisco Javier Alcala M.D.
--- NOTE | 2025-01-17 02:48 | PC.NURSE ---
Pt refused CXR ordered by ERP stating she had one done yesterday.
[2025-01-17] MEDS: LORazepam (*CRX) 1 MG TABLET PO (02:54)
[2025-01-17 03:04] VITALS: BP 120/65; PULSE 71; RESP 18; TEMP 36.3; O2SAT 99
== END 2025-01-17 03:04 | disposition home or self-care (01) ==
PROVIDERS: Emergency Provider Emergency Medicine
DX: G47.00 Insomnia, unspecified (principal); F32.A Depression, unspecified; F17.210 Nicotine dependence, cigarettes, uncomplicated
CPT/HCPCS: 93005; 99283; A9270